=== PATIENT | male | born 1970 | race Caucasian/White ===

== ENCOUNTER → 2018-06-14 05:34 | Outpatient (CLI) | payer OTHER, SELFPAY ==
[2018-06-10 15:50] VITALS: BMI 38.3
[2018-06-14 07:50] LABS: AST(SGOT) 19 U/L (15-37); Alanine Aminotransfer ALT/SGPT 34 U/L (16-61); Albumin, Serum 3.6 g/dL (3.2-5.0); Alkaline Phosphatase 67 U/L (45-117); Bilirubin, Direct 0.12 mg/dL (0.00-0.30); Cholesterol 212 mg/dL (200); Globulin 3.8 g/dL (2.2-4.2); High Density Lipoprotein 40 mg/dL; Protein, Total 7.4 g/dL (6.4-8.2); Triglycerides 461 mg/dL
== END ==
PROVIDERS: Family Provider Family Medicine; PCP Family Medicine; Referring Provider Internal Medicine Cardiovascular Disease; Visit Provider Internal Medicine Cardiovascular Disease
DX: I25.10 Atherosclerotic heart disease of native coronary artery without angina pectoris (principal); Z95.5 Presence of coronary angioplasty implant and graft
CPT/HCPCS: 36415; 80061; 80076

== ENCOUNTER → 2018-06-19 13:04 | Outpatient (CLI) | payer OTHER, SELFPAY ==
[2018-06-10 15:50] VITALS: BMI 38.3
--- NOTE | 2018-06-19 13:05 | STE_ITS ---
Reason For Study: CAD/ASHD Stress Results Maximum Predicted HR: 170 bpm Target HR: 145 bpm % Maximum Predicted HR: 92 % DurationHeart Rate Stage (mm:ss) (bpm) BP Comment BASELINE 70 140/80 STAGE 1 3:00 116 172/70 STAGE 2 3:00 142 210/80SLIGHT SOB STAGE 3 0:30 157 / TREADMILL IS TOO FAST INCREASED SOB RECOVERY 93 154/80 Stress Duration: 6:30 mm:ss Maximum Stress HR: 157 bpm Baseline Echocardiogram Findings The estimated ejection fraction is 65 %. Stress Echo Wall motion Data Resting WM Intermediate WM Stress WM Resting Wall Motion Wall Motion Stress No regional wall motion No regional wall motion abnormalities noted. abnormalities noted. EKG Data Normal intervals are noted. The patient exercised according to the regular Kushal protocol for a total duration of 6:30. The maximum heart rate attained was 162 beats per minute. This was 95% of maximum predicted heart rate. The patient exercised into stage 3 of the Kushal protocol. At peak exercise, upsloping ST changes only were noted, which did not meet the criteria for ischemia. No clinical angina was noted. Interpretation Summary The estimated ejection fraction is 65 %. Normal, adequate, treadmill echocardiogram. Negative for ischemia by EKG and echocardiographic criteria. No anginal symptoms noted. Rare PVCs noted. Subtle upsloping ST segment depression at peak exercise which quickly resolved into recovery. Appropriate blood pressure response to exercise hypertensive blood pressure response to exercise. Average exercise capacity for age. Final LVEF of 75%. Test terminated due to target heart rate and dyspnea. Ordering Physician: Everett Franks Referring Physician: Everett Franks Performed By: Montse Lopes RDCS
== END ==
PROVIDERS: Family Provider Family Medicine; PCP Family Medicine; Referring Provider Internal Medicine Cardiovascular Disease; Visit Provider Internal Medicine Cardiovascular Disease
DX: I25.5 Ischemic cardiomyopathy (principal); I25.10 Atherosclerotic heart disease of native coronary artery without angina pectoris; E11.9 Type 2 diabetes mellitus without complications; I25.2 Old myocardial infarction
CPT/HCPCS: 93017; 93350

== ENCOUNTER 2018-12-08 08:01 | Inpatient (IN) | payer OTHER, SELFPAY ==
[2018-06-10 15:50] VITALS: BMI 38.3
[2018-12-08 08:02] VITALS: BP 161/87; PULSE 108; RESP 16; TEMP 36.4; O2SAT 93; BMI 37.6
--- NOTE | 2018-12-08 08:35 | RAD_ITS ---
STUDY: X-RAY - RIGHT TIBIA AND FIBULA REASON FOR EXAM: Male, 48 years old. Fall one week ago TECHNIQUE: 5 view(s) of the tibia and fibula were obtained. COMPARISON: None. FINDINGS: Normal visualized tibia. Normal visualized fibula. There is mild degenerative change of the medial compartment. There is enthesopathy at the patella. There is soft tissue edema about the calf. There is soft tissue edema anterior to the knee. There is a visualized plantar spur. There is a small joint effusion. There is vascular calcification of the ankle. RAD/Tibia & Fibula 2 Views IMPRESSION: Soft tissue edema no visualized acute fracture. Small joint effusion. Plantar spur. Calf edema. Electronically Signed: Ana Villarreal MD at 9:59 EDT Tel , Service support ,
--- NOTE | 2018-12-08 08:36 | ED.DCSUM_ITS ---
- ER Visit Summary Date of Service: 12/08/18 Chief Complaint: Right lower leg injury 1 week ago with pain and redness History of Present Illness: The patient is a 48 M history of diabetes, hypertension, HI, cardiomyopathy, cardiac stents. No prior right lower extremity surgery. Patient states he fell going in his garage about a week ago he missed a step landed awkwardly on his right knee. On Sunday he was seen at an urgent care had x-rays done which were negative. Since that time he is developed more pain in his right lower extremity redness and subjective fever. No other injuries. He is able to walk. Physical Examination: Middle-aged male. Vital signs are stable and afebrile. HEENT exam on unremarkable and atraumatic. Neck nontender. C-spine nontender. Lungs clear to auscultation bilaterally. Heart regular rhythm no murmur rate about 100. Abdomen soft and nontender. Normal bowel sounds no peritoneal signs. Patient moving all 4 extremities. Neurovascular intact. He has an abrasion on his right knee. He is able to flex and extend the knee. There is no obvious effusion. No gross bony deformity. From the lower knee down to his ankle he has cellulitis on the right lower extremity. Is mildly swollen. Foot is nontender. Ankles nontender. Dorsi plantarflexion intact. Palpable DP pulse. Normal touch sensation in the foot. His other extremities are nontender. With normal range of motion. He has range of motion in the right lower extremity. Neurologically he is awake and alert. Test Results: CBC shows a white count of 15.7. Hemoglobin 12.2. Electrolytes show sodium 131. BUN of 40 and creatinine 1.4. Glucose is elevated 516. Normal anion gap of 14. Right tib-fib 2 view x-ray shows no acute abnormality. No fracture. Read by myself. Emergency Department Course and Treatment: Patient has cellulitis on his right lower extremity. Will be started on IV Zosyn. Screening labs and x-ray will be obtained. He did not want anything for pain at this time. Repeat exam patient is doing well on 9:35 AM. He will be given a dose of 12 units of insulin subcu for his elevated blood sugar. Treatment Plan: I spoke to the hospitalist and the patient will be admitted to [facility]. Disposition: Admission Impression: Status post fall with right knee wound Right lower extremity cellulitis History of diabetes with hyperglycemia History of CAD and cardiac stents and cardiomyopathy This note was generated with [employer] dictation software. It may contain incorrect words, spelling, and punctuation that were not noted in review of the chart prior to signing ED Disposition - Plan for ED Patient: Referrals: Joseph Ricks MD [Primary Care Provider] -
[2018-12-08 08:56] LABS: Absolute Neutrophil Count 12.6 X10^3/uL (2.0-7.7); Basophil# 0.07 X10^3/uL; Basophil% 0.4 % (0-1); Eosinophil# 0.03 X10^3/uL; Eosinophils% 0.2 % (0-5); Hematocrit 37.2 % (40-54); Hemoglobin 12.3 g/dL (13.0-16.5); Lymphocyte % 5.1 % (19-41); Mean Corp Hgb Conc 33.1 g/dL (32-36); Mean Corpuscular Hgb 28.4 pg (27.0-32.0); Mean Corpuscular Volume 85.9 fL (80-94); Mean Platelet Vol. 10.6 fl (6.2-12.0); Monocyte# 1.74 X10^3/uL; Monocyte% 11.1 % (0-10); NRBC Flagged by Analyzer 0 % (0-5); Neutrophil # 12.62 X10^3/uL (2.7-7.7); Neutrophil % 80.2 % (47-70); POSITIVE DIFFERENTIAL YES; POSITIVE MORPHOLOGY YES; Platelet Count 241 K/mm3 (150-450); RBC Distribution Width CV 12.5 % (11.6-14.6); RBC Distribution Width SD 39.7 fl (35.1-43.9); Red Blood Count 4.33 M/mm3 (4.6-6.2); White Blood Count 15.7 K/mm3 (4.4-11.0)
[2018-12-08 09:01] LABS: Differential Indicated SCAN CRITERIA MET
[2018-12-08 09:21] LABS: Anion Gap 14 (5-15); BUN 40 mg/dL (7-18); BUN/Creat Ratio 28.2 RATIO (10-20); Calcium,Total 8.6 mg/dL (8.5-10.1); Chloride 93 mmol/L (98-107); Creatinine, Serum 1.42 mg/dL (0.70-1.30); EST Glomerular Filtration Rate 56 mL/min (>60); Est Glom Filt Rate - Afr Amer 68 mL/min (>60); Estimated Creatinine Clearance 66.29 ml/min; Glucose 516 mg/dL (74-106); Potassium 4.1 mmol/L (3.5-5.1); Sodium Level 131 mmol/L (136-145)
[2018-12-08] MEDS: Insulin NPH Human 100 UNITS/ML PEN 12 UNITS SC (09:51)
[2018-12-08 10:33] VITALS: BP 174/89; PULSE 102; RESP 18; TEMP 37.8; O2SAT 93; BMI 40.0; BMI 40.1
--- NOTE | 2018-12-08 10:45 | HP.PCM_ITS ---
Problem List (1) Diabetes mellitus, type II Status: Chronic (2) History of non-ST elevation myocardial infarction (NSTEMI) Status: Chronic (3) Ischemic cardiomyopathy Status: Chronic (4) Stented coronary artery Status: Chronic Comment: PTCA and TREY to LAD 06/23/13 @ [facility]; Promus stent to DX 07/17/13 @ [facility] (5) History of left heart catheterization Status: Chronic Comment: 06/23/2013 @ [facility] (6) Atherosclerotic heart disease of [place] coronary artery without angina pectoris Status: Chronic Comment: PTCA and TREY to LAD 06/23/13; Promus stent to DX 07/17/13 (7) Obesity Status: Chronic (8) Hyperlipidemia Status: Chronic (9) Hypertension Status: Chronic History of Present Illness Date of Admission: 12/08/18 Chief Complaint: Right lower extremity pain and redness. The patient is a 48 year old M who presents to the emergency room due to right lower extremity pain and redness. Patient reports he fell 1 week ago on his right knee at home due to missing a step. He was seen at urgent care and imaging showed no acute fracture. He was told to take Aleve for pain. He reports he has had significant increase in pain since that time. He reports he is able to walk on his right leg however he has difficulty lifting his leg. He has not taken his temperature at home and denies any known fever, chills. Denies nausea, vomiting. Denies drainage from right knee scabbed area. He reports he has severe pain with even light touch of his knee area. He has a past medical history of CAD status post stents, hypertension, hyperlipidemia, type 2 diabetes mellitus, obesity, GERD. Past Medical History Past Medical History (Chronic Problems): Chronic Problems (Last Reviewed 06/10/18 @ 15:49 by Meka Barraza) Diabetes mellitus, type II (Chronic) History of non-ST elevation myocardial infarction (NSTEMI) (Chronic) Ischemic cardiomyopathy (Chronic) Stented coronary artery (Chronic) PTCA and TREY to LAD 06/23/13 @ [facility]; Promus stent to DX 07/17/13 @ [facility] History of left heart catheterization (Chronic) 06/23/2013 @ [facility] Atherosclerotic heart disease of [place] coronary artery without angina pectoris (Chronic) PTCA and TREY to LAD 06/23/13; Promus stent to DX 07/17/13 Obesity (Chronic) Hyperlipidemia (Chronic) Hypertension (Chronic) Medical History: Medical History (Last Reviewed 06/10/18 @ 15:49 by Meka Barraza) Diabetes mellitus, type II (Chronic) E11.9 History of non-ST elevation myocardial infarction (NSTEMI) (Chronic) I25.2 Ischemic cardiomyopathy (Chronic) I25.5 Atherosclerotic heart disease of [place] coronary artery without angina pectoris (Chronic) I25.10 PTCA and TREY to LAD 06/23/13; Promus stent to DX 07/17/13 Obesity (Chronic) Hyperlipidemia (Chronic) Hypertension (Chronic) Allergies No Known Allergies Allergy (Verified 12/08/18 08:46) Home Medications: Ambulatory Orders Medication Instructions Recorded Aspirin [Aspirin, Baby] 81 mg PO DAILY@0800 09/28/14 Famotidine [Pepcid] 20 mg PO DAILY 09/28/14 Mag-Ox 400 1 tab PO DAILY 09/28/14 Metoprolol(XL)Succ [Toprol Xl 25 mg PO DAILY 09/28/14 (Beta Brittany)] hydrochlorothiazide 25 mg tablet 25 mg PO QDAY 04/20/17 metformin 1,000 mg tablet 1,000 mg PO BID tab 04/20/17 nitroglycerin 0.4 mg sublingual 0.4 mg SUBLINGUAL Q5-15M PRN 04/20/17 tablet atorvastatin 80 mg tablet 80 mg PO QHS #90 tab 06/14/18 amlodipine 5 mg tablet 5 mg PO DAILY #90 tab 11/22/18 Surgical History: Surgical History (Last Reviewed 06/10/18 @ 15:49 by Meak Barraza) Stented coronary artery (Chronic) Z95.5 PTCA and TREY to LAD 06/23/13 @ [facility]; Promus stent to DX 07/17/13 @ [facility] History of left heart catheterization (Chronic) Z98.890 06/23/2013 @ [facility] Surgical History: - - Hernia repair, cardiac stents. Psychiatric History: No pertinent psych hx Lives: Spouse/ Significant Other Smoking Status: Never smoker Alcohol: None Drugs: None - *Family History Paternal Family History: Family History (Last Reviewed 12/08/18 @ 10:53 by BRENDA Davila) Father Myocardial infarction CAD (coronary artery disease) Sudden cardiac Mother Sick sinus syndrome Sister Diabetes History Items: Heart Disease, - - At the age of 45 Maternal Family History: Family History (Last Reviewed 12/08/18 @ 10:53 by BRENDA Davila) Father Myocardial infarction CAD (coronary artery disease) Sudden cardiac Mother Sick sinus syndrome Sister Diabetes History Items: Heart Disease Review of Systems Constitutional: Reports: - - Fever on admission, denies fever prior. Denies: Chills, Fever, Weight Change HEENT: Denies: Head Aches, Sinus Congestion, Sinus Drainage Cardiovascular: Reports: Edema - Right lower extremity. Denies: Chest Pain, Light Headedness, Palpitations, Syncope Respiratory: Denies: Cough, Shortness of breath at rest, Sputum production Gastrointestinal: Denies: Abdominal Pain, Nausea, Vomiting Genitourinary: Denies: Dysuria Musculoskeletal: Reports: - - Right lower extremity pain Skin: Reports: - - Right lower extremity redness from knee to mid calf Neurological: Denies: Numbness, Tingling, Focal weakness Psychiatric: Denies: Anxiety, Depression, Homicidal Ideations, Suicidal Ideations Hematologic/ Lymphatic: Denies: Easy Bruising, Easy Bleeding VTE Information - Inpt Only VTE Present on Admission: No VTE Mechan Device Prophylaxis: None VTE Pharm Prophylaxis ordered?: Yes - Physical Exam General: Alert, Oriented x3, Cooperative HEENT: Atraumatic, PERRLA, EOMI, Normocephalic Neck: Supple, No JVD, Negative Carotid Bruits Lungs: Clear to auscultation, Normal air movement Cardiovascular: Regular Rhythm, Normal S1, Normal S2, No murmurs, Tachycardic Abdomen: Bowel Sounds Present, Soft, Non Tender, Non-Distended, Obese Extremities: No clubbing, No cyanosis, Capillary Refill Less than 3 Seconds, Edema - Right lower extremity extending to upper thigh Skin: - - Right lower extremity redness from knee to mid calf. Scabbed abrasion anterior knee. Musculoskeletal: Tenderness - Right knee Neurological: Cranial nerves II-XII grossly intact, Neuro grossly intact Psych/Mental Status: Normal Affect, Appropriate Vital Signs Temp Pulse Resp BP Pulse Ox 100.1 F H 102 H 18 174/89 H 93 12/08/18 10:33 12/08/18 10:33 12/08/18 10:33 12/08/18 10:33 12/08/18 10:33 Oxygen Delivery Method Room Air Weight: 287 lb 3.2 oz Body Mass Index (BMI) 40.0 Intake and Output for Last 24 Hours 12/06/18 12/07/18 12/08/18 23:59 23:59 23:59 Intake Total 100 / 100 Balance 100 / 100 Laboratory Tests Past 24 Hrs 12/08/18 12/08/18 08:44 08:44 WBC 15.7 H RBC 4.33 L Hgb 12.3 L Hct 37.2 L MCV 85.9 MCH 28.4 MCHC 33.1 RDW Std Deviation 39.7 RDW Coeff of Rajendra 12.5 Plt Count 241 MPV 10.6 Immature Gran % (Auto) 3.000 H Neut % (Auto) 80.2 H Lymph % (Auto) 5.1 L [place] % (Auto) 11.1 H Eos % (Auto) 0.2 Baso % (Auto) 0.4 Absolute Neuts (auto) 12.6 H Absolute Lymphs (auto) 0.80 L Nucleated RBC % 0 Diff Path Review May foll Sodium 131 L Potassium 4.1 Chloride 93 L Carbon Dioxide 24.0 Anion Gap 14 BUN 40 H Creatinine 1.42 H Estim Creat Clear Calc 66.29 Est GFR (MDRD) Af Amer 68 Est GFR (MDRD) Non-Af 56 L BUN/Creatinine Ratio 28.2 H Glucose 516 H* Calcium 8.6 Assessment/Plan 1. Acute sepsis secondary to right lower extremity [id number] right tibia/fibula demonstrated soft tissue edema with no acute fracture, small joint effusion. Calf edema. Obtain duplex ultrasound right lower extremity. Ortho consult. PRN pain regimen. IV Zosyn and IV vancomycin. Check ESR, CRP. Obtain x-ray knee. 2. Acute kidney injury- IVF, repeat BMP in a.m. 3. Hypovolemic hyponatremia-IV fluids, trend BMP. 4. Type 2 diabetes mellitus, elevated glucose on admission-check hemoglobin A1c. Continue home metformin regimen. Accu-Cheks before meals at bedtime with sliding scale insulin. 5. CAD status post stents-follows with Dr. Franks. Continue aspirin, statin, beta-brittany. 6. Hypertension-stable, continue home amlodipine, metoprolol regimen. 7. Hyperlipidemia-continue statin regimen. 8. Obesity-encouraged diet lifestyle modifications. Nutrition consult. 9. GERD-continue famotidine regimen. 10. Normocytic anemia-trend CBC. DVT prophylaxis-SCDs, Lovenox This patient was seen by BRENDA Davila under the supervision of Dr. Hernandez.
--- NOTE | 2018-12-08 11:02 | VDLE_ITS ---
Reason For Study: PAIN RIGHT GSV is normal. CFV is compressible, spontaneous, phasic, competent and demonstrates normal augmentation. FV is compressible, spontaneous, phasic, competent and demonstrates normal augmentation. POP V is compressible, spontaneous, phasic, competent and demonstrates normal augmentation. T/P Trunk is compressible. PTV is compressible. RT PerV is compressible. Procedure Exam performed portable in patient room. A preliminary report was called and/or faxed to [facility]. Interpretation Summary Deep veins of the right lower extremity are patent and compressible segmentally. There is no evidence of right lower extremity deep vein thrombosis. Valvular competence appears intact within the proximal deep venous system on the right . The right great saphenous vein appears patent and compressible segmentally. Ordering Physician: Susanna Anguiano Referring Physician: BOBY MORTON Performed By: Katya Rios, KAMINI, RVT
[2018-12-08] MEDS: 0.9% Normal Saline 1,000 ML 100 ML IV (11:28)
[2018-12-08] MEDS: 0.9% Normal Saline 1,000 ML 999 ML IV (11:28)
--- NOTE | 2018-12-08 11:31 | RAD_ITS ---
STUDY: X-RAY - RIGHT KNEE REASON FOR EXAM: Male, 48 years old. Fall. Uncontrolled diabetes. Evaluate for infection. TECHNIQUE: 3 view(s) of the knee. COMPARISON: None. FINDINGS: Normal visualized distal femur. Normal visualized proximal tibia and fibula. Normal proximal tibiofibular articulation. Normal medial femorotibial compartment. Normal lateral femorotibial compartment. Normal patellofemoral articulation. Deformity of the inferior pole of the patella, most likely from prior injury. The soft tissue structures are unremarkable. RAD/Knee 3 Views IMPRESSION: No acute abnormality. Electronically Signed: Parish Rice MD at 14:11 EDT , Service support ,
[2018-12-08] MEDS: Acetaminophen 325 MG Tablet 650 MG PO (11:38)
[2018-12-08] MEDS: oxyCODONE 5 MG Tablet 10 MG PO (11:38)
[2018-12-08 11:40] LABS: Hemoglobin A1c 15.6 % (4.2-6.3)
[2018-12-08 11:40] LABS: Bedside Glucose 492 mg/dL (70-110)
[2018-12-08 11:43] LABS: Lactic Acid 1.8 mmol/L (0.4-2.0)
[2018-12-08] MEDS: Enoxaparin 40 MG/0.4 ML Syringe SC (11:47)
[2018-12-08 12:17] LABS: Erythrocyte Sedimentation Rate 91 mm/hr (0-20)
[2018-12-08 12:23] LABS: Glucose 447 mg/dL (74-106)
[2018-12-08 12:51] VITALS: O2SAT 91
[2018-12-08] MEDS: Insulin Lispro 100 UNIT/ML INSULN.PEN SC ×3 (12:56→21:53)
[2018-12-08 13:15] LABS: Bacteria 0 SEEN /hpf (None Seen); Mucous, Urine 0 SEEN /hpf (<or=2+); Red Blood Cells-Urine 0 SEEN /hpf (0-5); Squamous Epithelial Cells - UA 0 SEEN /hpf (0-5); White Blood Cells 0 SEEN /hpf (0-5)
[2018-12-08 13:16] LABS: Color, Urine Straw (Yellow); Glucose, Dipstick 1000 mg/dl (Normal); Leukocyte Esterase-Dipstick Negative /ul (Negative); Nitrite-Dipstick Negative (Negative); Occult Blood-Urine 150 /ul (Negative); Protein-Dipstick 30 mg/dl (Negative); Specific Gravity, Urine 1.015 (1.002-1.030); Urine Bilirubin Dipstick Negative (Negative); Urine Clarity Clear (Clear); Urine Urobilinogen Normal (Normal)
[2018-12-08 13:23] LABS: Ketone-Dipstick 150 mg/dl (Negative)
--- NOTE | 2018-12-08 13:55 | CON.PCM_ITS ---
Reason for Consult Date of Consultation: 12/08/18 History of Present Illness: The patient is a 48 year old male, poorly controlled diabetic with multiple medical problems that fell in his garage 1 week ago abrading his right anterior knee. He went to urgent care on Sunday complaining of knee pain and swelling. He was noted to have a fever. Reportedly he was placed on Aleve and not placed on any antibiotic. He was told he could resume work. He worked this week and developed increasing knee and leg pain swelling on Sunday and Sunday. Pain was so severe today he came to the hospital because of leg pain and redness. He does not check his blood sugars at home. He states that when he first gets up to walk he does have some pain and limping. After a few steps the knee loosens up and he can walk better. His states he has been limping some. [] Past Medical History Past Medical History (Chronic Problems): Chronic Problems (Last Reviewed 06/10/18 @ 15:49 by Meka Barraza) Diabetes mellitus, type II (Chronic) History of non-ST elevation myocardial infarction (NSTEMI) (Chronic) Ischemic cardiomyopathy (Chronic) Stented coronary artery (Chronic) PTCA and TREY to LAD 06/23/13 @ [facility]; Promus stent to DX 07/17/13 @ [facility] History of left heart catheterization (Chronic) 06/23/2013 @ [facility] Atherosclerotic heart disease of [place] coronary artery without angina pectoris (Chronic) PTCA and TREY to LAD 06/23/13; Promus stent to DX 07/17/13 Obesity (Chronic) Hyperlipidemia (Chronic) Hypertension (Chronic) Medical History: Medical History (Last Reviewed 06/10/18 @ 15:49 by Meka Barraza) Diabetes mellitus, type II (Chronic) E11.9 History of non-ST elevation myocardial infarction (NSTEMI) (Chronic) I25.2 Ischemic cardiomyopathy (Chronic) I25.5 Atherosclerotic heart disease of [place] coronary artery without angina pectoris (Chronic) I25.10 PTCA and TREY to LAD 06/23/13; Promus stent to DX 07/17/13 Obesity (Chronic) Hyperlipidemia (Chronic) Hypertension (Chronic) Allergies No Known Allergies Allergy (Verified 12/08/18 08:46) Home Medications: Ambulatory Orders Medication Instructions Recorded Aspirin [Aspirin, Baby] 81 mg PO DAILY@0800 06/22/15 Famotidine [Pepcid] 20 mg PO DAILY 09/28/14 Mag-Ox 400 1 tab PO DAILY 09/28/14 Metoprolol(XL)Succ [Toprol Xl 25 mg PO DAILY 09/28/14 (Beta Brittany)] hydrochlorothiazide 25 mg tablet 25 mg PO QDAY 04/20/17 metformin 1,000 mg tablet 1,000 mg PO BID tab 04/20/17 nitroglycerin 0.4 mg sublingual 0.4 mg SUBLINGUAL Q5-15M PRN 04/20/17 tablet atorvastatin 80 mg tablet 80 mg PO QHS #90 tab 06/14/18 amlodipine 5 mg tablet 5 mg PO DAILY #90 tab 11/22/18 Surgical History: Surgical History (Last Reviewed 06/10/18 @ 15:49 by Meka Barraza) Stented coronary artery (Chronic) Z95.5 PTCA and TREY to LAD 06/23/13 @ [facility]; Promus stent to DX 07/17/13 @ [facility] History of left heart catheterization (Chronic) Z98.890 06/23/2013 @ [facility] Surgical History: - - Hernia repair, cardiac stents. Psychiatric History: No pertinent psych hx Lives: Spouse/ Significant Other Smoking Status: Never smoker Alcohol: None Drugs: None - *Family History Paternal Family History: Family History (Last Reviewed 12/08/18 @ 10:53 by BRENDA Davila) Father Myocardial infarction CAD (coronary artery disease) Sudden cardiac Mother Sick sinus syndrome Sister Diabetes History Items: Heart Disease, - - At the age of 45 Maternal Family History: Family History (Last Reviewed 12/08/18 @ 10:53 by BRENDA Davila) Father Myocardial infarction CAD (coronary artery disease) Sudden cardiac Mother Sick sinus syndrome Sister Diabetes History Items: Heart Disease Objective: Review of Systems Constitutional: Reports: - - Fever on admission, denies fever prior. Denies: Chills, Fever, Weight Change HEENT: Denies: Head Aches, Sinus Congestion, Sinus Drainage Cardiovascular: Reports: Edema - Right lower extremity. Denies: Chest Pain, Light Headedness, Palpitations, Syncope Respiratory: Denies: Cough, Shortness of breath at rest, Sputum production Gastrointestinal: Denies: Abdominal Pain, Nausea, Vomiting Genitourinary: Denies: Dysuria Musculoskeletal: Reports: - - Right lower extremity pain Skin: Reports: - - Right lower extremity redness from knee to mid calf Neurological: Denies: Numbness, Tingling, Focal weakness Psychiatric: Denies: Anxiety, Depression, Homicidal Ideations, Suicidal Ideations Hematologic/ Lymphatic: Denies: Easy Bruising, Easy Bleeding Patient's right knee and anterior nunez have warmth and mild redness, purple. Some mild redness about the thigh as well. He has tenderness over the prepatellar bursa. No significant knee joint tenderness. Questionable knee effusion on the right and left knee. Left knee motion is 0 to 110 degrees. Right knee motion is 0 to 95 degrees. He complains of anterior nunez and knee tightness at his bursa with trying to flex it beyond 95 degrees. No posterior calf pain. Redness stands from the anterior patellar region to the mid and lower tibia region. Dorsalis pedis and posterior tibial pulses are intact. Good active motion of the ankles. He is easily able to do a straight leg raise bilaterally. Pain with axial loading of the knees. Hip pain with motion. No pain on palpation about the hip. No significant thigh pain or swelling. Some mild redness about the anterior thigh. Laboratory work and vital signs reviewed X-rays of the knee and leg reviewed showing mild anterior swelling. No obvious acute fractures or dislocation. Chronic bony changes about the anterior patella Note from ER doctor and hospitalist reviewed hemaglobin A1c reported at 15 today With blood sugars greater than 500 - Physical Exam Vital Signs Temp Pulse Resp BP Pulse Ox 100.1 F H 102 H 18 174/89 H 91 12/08/18 10:33 12/08/18 10:33 12/08/18 10:33 12/08/18 10:33 12/08/18 12:51 Oxygen Delivery Method Room Air Weight: 130.272 kg Body Mass Index (BMI) 40.0 Intake and Output for Last 24 Hours 12/06/18 12/07/18 12/08/18 23:59 23:59 23:59 Intake Total 1101.67 / 1101.67 Balance 1101.67 / 1101.67 Laboratory Tests Past 24 Hrs 12/08/18 12/08/18 12/08/18 08:44 08:44 08:44 WBC 15.7 H RBC 4.33 L Hgb 12.3 L Hct 37.2 L MCV 85.9 MCH 28.4 MCHC 33.1 RDW Std Deviation 39.7 RDW Coeff of Rajendra 12.5 Plt Count 241 MPV 10.6 Immature Gran % (Auto) 3.000 H Neut % (Auto) 80.2 H Lymph % (Auto) 5.1 L [place] % (Auto) 11.1 H Eos % (Auto) 0.2 Baso % (Auto) 0.4 Absolute Neuts (auto) 12.6 H Absolute Lymphs (auto) 0.80 L Nucleated RBC % 0 [address] Review May foll ESR Sodium 131 L Potassium 4.1 Chloride 93 L Carbon Dioxide 24.0 Anion Gap 14 BUN 40 H Creatinine 1.42 H Estim Creat Clear Calc 66.29 Est GFR (MDRD) Af Amer 68 Est GFR (MDRD) Non-Af 56 L BUN/Creatinine Ratio 28.2 H Glucose 516 H* Hemoglobin A1c 15.6 H Lactic Acid Calcium 8.6 C-React Prot Ext Range Urine Color Urine Clarity Urine pH Ur Specific [place] Urine Protein Urine Glucose (UA) Urine Ketones Urine Occult Blood Urine Nitrite Urine Bilirubin Urine Urobilinogen Ur Leukocyte Esterase Urine RBC Urine WBC Ur Squamous Epith Cells Urine Bacteria Urine Mucus 12/08/18 12/08/18 12/08/18 08:44 11:05 11:58 WBC RBC Hgb Hct MCV MCH MCHC RDW Std Deviation RDW Coeff of Rajendra Plt Count MPV Immature Gran % (Auto) Neut % (Auto) Lymph % (Auto) [place] % (Auto) Eos % (Auto) Baso % (Auto) Absolute Neuts (auto) Absolute Lymphs (auto) Nucleated RBC % Diff Path Review ESR 91 H Sodium Potassium Chloride Carbon Dioxide Anion Gap BUN Creatinine Estim Creat Clear Calc Est GFR (MDRD) Af Amer Est GFR (MDRD) Non-Af BUN/Creatinine Ratio Glucose Hemoglobin A1c Lactic Acid 1.8 Calcium C-React Prot Ext Range 358.00 H Urine Color Urine Clarity Urine pH Ur Specific [place] Urine Protein Urine Glucose (UA) Urine Ketones Urine Occult Blood Urine Nitrite Urine Bilirubin Urine Urobilinogen Ur Leukocyte Esterase Urine RBC Urine WBC Ur Squamous Epith Cells Urine Bacteria Urine Mucus 12/08/18 12/08/18 11:58 12:05 WBC RBC Hgb Hct MCV MCH MCHC RDW Std Deviation RDW Coeff of Rajendra Plt Count MPV Immature Gran % (Auto) Neut % (Auto) Lymph % (Auto) [place] % (Auto) Eos % (Auto) Baso % (Auto) Absolute Neuts (auto) Absolute Lymphs (auto) Nucleated RBC % Diff Path Review ESR Sodium Potassium Chloride Carbon Dioxide Anion Gap BUN Creatinine Estim Creat Clear Calc Est GFR (MDRD) Af Amer Est GFR (MDRD) Non-Af BUN/Creatinine Ratio Glucose 447 H Hemoglobin A1c Lactic Acid Calcium C-React Prot Ext Range Urine Color Straw Urine Clarity Clear Urine pH 5.0 Ur Specific [place] 1.015 Urine Protein 30 H Urine Glucose (UA) 1000 H Urine Ketones 150 H Urine Occult Blood 150 H Urine Nitrite Negative Urine Bilirubin Negative Urine Urobilinogen Normal Ur Leukocyte Esterase Negative Urine RBC 0 SEEN Urine WBC 0 SEEN Ur Squamous Epith Cells 0 SEEN Urine Bacteria 0 SEEN Urine Mucus 0 SEEN POC Glucose 12/08/18 11:31 POC Glucose 492 H* Assessment/Plan Right lower extremity cellulitis, probable prepatellar bursitis, after knee contusion, abrasion. Doubt septic knee joint. We discussed possibility of aspirating his bursa and/or knee joint. We decided to proceed with bursal aspiration. I explained if there is no knee joint infection we could possibly seed his joint by aspirating through skin with cellulitis. After obtaining appropriate consent patient's right knee was prepped with Betadine and alcohol. I used an 18-gauge inch and half needle to aspirate 3 to 4 cc of thick reddish-brownish bloody fluid from his prepatellar bursa. He tolerated that well. Fluid will be sent for Gram stain, culture and sensitivity. If there is adequate fluid they will do a cell count, fungal cultures. Sterile bandage was applied with 4 x 4 and Leonides wrap. We will continue on IV antibiotics. Case discussed with hospitalist. Certainly he would benefit from better control of his blood sugars and I explained we do not do elective knee surgery if there hemoglobin A1c is above 8. I also explained with elevated blood sugars he would be at risk for any surgery, wound healing complications. I explained untreated/poorly treated diabetes can certainly lead to lower extremity amputations. We will plan to reevaluate him tomorrow. Possibly re-aspirate knee region if needed. No surgery planned at this point.
[2018-12-08 14:38] LABS: RBC /Synovial Fluid 0.684 10^6/uL (0); Synovial Fld Mononuclear WBC % 14.9 %; Synovial Fld Polynuclear WBC % 85.1 %
[2018-12-08 15:16] LABS: AUTO B FLUID DILUENT BKGD CT WBC <0.1 RBC <0.01 (W<.1,R<.01); Source / Synovial Fluid RT KNEE
[2018-12-08 15:17] LABS: Appearance /Synovial Fluid Cloudy (CLEAR); Color / Synovial Fluid Red (Pale Yellow); Viscosity / Synovial Fluid Sl. Viscous (HIGH)
[2018-12-08 16:19] LABS: Neutrophil 98 % (0-25); Other Cell /Synovial Fluid 2 %
[2018-12-08 16:24] LABS: Body Fluid QC Type(s) BF1Q
[2018-12-08 16:38] VITALS: BP 159/80; PULSE 101; RESP 18; TEMP 36.7; O2SAT 94
[2018-12-08] MEDS: metFORMIN HCl 1,000 MG Tablet 1000 MG PO (16:42)
[2018-12-08 16:51] LABS: Bedside Glucose 375 mg/dL (70-110)
--- NOTE | 2018-12-08 18:55 | PCM.RX.CS ---
Consult Pharmacy has been consulted to manage selected antiobiotic: Vancomycin Type of Consult: New start Suspected Infection: Other Labs: Sodium 131 mmol/L (136-145) L 12/08/18 08:44 Potassium 4.1 mmol/L (3.5-5.1) 12/08/18 08:44 Chloride 93 mmol/L (98-107) L 12/08/18 08:44 Carbon Dioxide 24.0 mmol/L (21.0-32.0) 12/08/18 08:44 14 (5-15) 12/08/18 08:44 BUN 40 mg/dL (7-18) H 12/08/18 08:44 1.42 mg/dL (0.70-1.30) H 12/08/18 08:44 Est GFR (MDRD) Af Amer 68 mL/min (>60) 12/08/18 08:44 Est GFR (MDRD) Non-Af 56 mL/min (>60) L 12/08/18 08:44 28.2 RATIO (10-20) H 12/08/18 08:44 Glucose 447 mg/dL (74-106) H 12/08/18 11:58 Microbiology: Microbiology 12/08/18 14:03 Fluid - Synovial (joint) Gram Stain - Final Weight used for dosin kg Estimated Creatinine Clearance: 66 mL/min Goal Trough: 15-20 mcg/mL Pharmacy Plan for Drug Dosing: Initial dose 2000mg IV x1, 1500mg IV q12h to follow with trough prior to 4th dose per policy. Pharmacy Service will continue to monitor and adjust dosing as required. Follow-Up Labs: Trough Vancomycin - 12/10 @ 0630
[2018-12-08 20:00] VITALS: PULSE 103; O2SAT 94
[2018-12-08] MEDS: Famotidine 20 MG Tablet PO (21:53)
[2018-12-08] MEDS: Atorvastatin Calcium 80 MG Tablet PO (21:54)
[2018-12-08 22:06] LABS: Bedside Glucose 365 mg/dL (70-110)
[2018-12-08 22:30] VITALS: BP 159/93; PULSE 103; RESP 18; TEMP 37.6; O2SAT 94
[2018-12-09] VITALS (9 sets, daily range): BP systolic 150–167; BP diastolic 83–93; PULSE 90–115; RESP 16–18; TEMP 37–37.7; O2SAT 92–97
[2018-12-09] MEDS: 0.9% Normal Saline 1,000 ML 100 ML IV ×2 (00:49→08:00)
[2018-12-09] MEDS: Insulin Lispro 100 UNIT/ML INSULN.PEN SC ×4 (06:48→21:20)
[2018-12-09 06:51] LABS: Hematocrit 35.4 % (40-54); Hemoglobin 11.4 g/dL (13.0-16.5); Mean Corp Hgb Conc 32.2 g/dL (32-36); Mean Corpuscular Hgb 27.3 pg (27.0-32.0); Mean Corpuscular Volume 84.9 fL (80-94); Mean Platelet Vol. 10.9 fl (6.2-12.0); POSITIVE COUNT YES; POSITIVE DIFFERENTIAL YES; POSITIVE MORPHOLOGY YES; Platelet Count 265 K/mm3 (150-450); RBC Distribution Width SD 40.1 fl (35.1-43.9); Red Blood Count 4.17 M/mm3 (4.6-6.2); White Blood Count 17.3 K/mm3 (4.4-11.0)
[2018-12-09 06:56] LABS: Bedside Glucose 296 mg/dL (70-110)
[2018-12-09 07:09] LABS: Differential Indicated MANUAL DIFF
[2018-12-09 07:21] LABS: ALB/GLOB Ratio 0.4 RATIO (0.9-2.4); AST(SGOT) 15 U/L (15-37); Alanine Aminotransfer ALT/SGPT 19 U/L (16-61); Albumin, Serum 1.9 g/dL (3.2-5.0); Alkaline Phosphatase 135 U/L (45-117); Anion Gap 10 (5-15); BUN 35 mg/dL (7-18); BUN/Creat Ratio 31.5 RATIO (10-20); Calcium,Total 8.4 mg/dL (8.5-10.1); Chloride 97 mmol/L (98-107); Cholesterol 179 mg/dL (200); Creatinine, Serum 1.11 mg/dL (0.70-1.30); EST Glomerular Filtration Rate 74 mL/min (>60); Est Glom Filt Rate - Afr Amer 90 mL/min (>60); Glucose 280 mg/dL (74-106); High Density Lipoprotein 27 mg/dL; Magnesium 2.3 mg/dL (1.6-2.6); Phosphorus 2.3 mg/dL (2.5-4.9); Potassium 3.4 mmol/L (3.5-5.1); Protein, Total 6.9 g/dL (6.4-8.2); Sodium Level 134 mmol/L (136-145); Triglycerides 179 mg/dL; Very Low Density Lipoprotein 36 mg/dL (5-40)
[2018-12-09 07:24] LABS: Basophil 1 % (0-1); Lymphocyte 5 % (19-41); Metamyelocyte 4 % (0-1); Monocyte 4 % (0-10); Neutrophil-Band 6 % (0-5); Neutrophil-Segmented 80 % (47-70); Total Cells Counted 100 (MANUAL DIFF)
[2018-12-09 07:25] LABS: Polychromasia RARE; Red Cell Morphology N CYTIC NORMAL (NORM C&C)
[2018-12-09 07:26] LABS: Platelet Estimate ADEQUATE (ADEQ)
[2018-12-09 07:31] LABS: Absolute Lymphocyte Count 0.87 X10^3/uL (0.83-4.51); Absolute Neutrophil Count 14.9 X10^3/uL (2.0-7.7)
[2018-12-09 07:33] LABS: Urine Sodium 8 mmol/L (Not Establ.)
[2018-12-09 07:35] LABS: Protein, Urine (Random) 103.4 mg/dL (<11.9); Protein:Creat Ratio 940 mg/g CRE (0-200)
[2018-12-09] MEDS: metFORMIN HCl 1,000 MG Tablet 1000 MG PO ×2 (08:01→17:09)
[2018-12-09] MEDS: Aspirin 81 MG TAB.CHEW PO (08:02)
[2018-12-09] MEDS: Famotidine 20 MG Tablet PO ×2 (10:39→21:21)
[2018-12-09] MEDS: Metoprolol(XL)Succ 25 MG Tablet PO (10:39)
[2018-12-09] MEDS: amLODIPine 5 MG Tablet PO (10:39)
--- NOTE | 2018-12-09 10:53 | PCM.PROGNOTE ---
<Susanna Anguiano - Last Filed: 12/09/18 11:10> Subjective: Patient seen and examined. Reports fever, chills improved. Reports right lower extremity pain is well controlled however he has not been moving it much. Denies other current complaints. - Physical Exam General: Alert, Oriented x3, Cooperative HEENT: Atraumatic, PERRLA, EOMI, Normocephalic Neck: Supple, No JVD, Negative Carotid Bruits Lungs: Clear to auscultation, Normal air movement Cardiovascular: Regular rate, Regular Rhythm, Normal S1, Normal S2, No murmurs Abdomen: Bowel Sounds Present, Soft, Non Tender, Non-Distended, Obese Extremities: No clubbing, No cyanosis, Edema - Right lower extremity extending to upper thigh Skin: - - Right lower extremity redness from knee to mid calf. Scabbed abrasion anterior knee. Musculoskeletal: Tenderness - Right knee Neurological: Cranial nerves II-XII grossly intact, Neuro grossly intact Psych/Mental Status: Normal Affect, Appropriate Vital Signs Temp Pulse Resp BP Pulse Ox 99.6 F H 98 18 167/90 H 93 12/09/18 08:24 12/09/18 10:39 12/09/18 08:24 12/09/18 08:24 12/09/18 08:24 Oxygen Flow Rate (L/min) 3 Oxygen Delivery Method Room Air Weight: 287 lb 3.209 oz Body Mass Index (BMI) 40.0 Intake and Output for Last 24 Hours 12/07/18 12/08/18 12/09/18 23:59 23:59 23:59 Intake Total 3915.00 / 3915.00 1385 / 1385 Output Total 1400 / 1400 Balance 2515.00 / 2515.00 1385 / 1385 Microbiology Past 72 Hours 12/08/18 14:03 Gram Stain - Final Fluid - Synovial (joint) Body Fluid Culture - Preliminary Staphylococcus aureus Laboratory Tests Past 24 Hrs 12/08/18 12/08/18 12/08/18 08:44 08:44 11:05 WBC RBC Hgb Hct MCV MCH MCHC RDW Std Deviation RDW Coeff of Rajendra Plt Count MPV Neut % (Auto) Absolute Neuts (auto) Absolute Lymphs (auto) Total Counted Neutrophils % (Manual) Band Neutrophils % Lymphocytes % (Manual) Monocytes % (Manual) Basophils % (Manual) Metamyelocytes % Diff Path Review Platelet Estimate RBC Morphology Polychromasia ESR Sodium Potassium Chloride Carbon Dioxide Anion Gap BUN Creatinine Estim Creat Clear Calc Est GFR (MDRD) Af Amer Est GFR (MDRD) Non-Af BUN/Creatinine Ratio Glucose Hemoglobin A1c 15.6 H Lactic Acid 1.8 Calcium Phosphorus Magnesium Total Bilirubin AST ALT Alkaline Phosphatase C-React Prot Ext Range 358.00 H Total Protein Albumin Globulin Albumin/Globulin Ratio Triglycerides Cholesterol LDL Cholesterol VLDL Cholesterol HDL Cholesterol Urine Color Urine Clarity Urine pH Ur Specific [place] Urine Protein Urine Glucose (UA) Urine Ketones Urine Occult Blood Urine Nitrite Urine Bilirubin Urine Urobilinogen Ur Leukocyte Esterase Urine RBC Urine WBC Ur Squamous Epith Cells Urine Bacteria Urine Mucus U Random Total Protein Ur Random Sodium Urine Creatinine Protein/Creatinin Ratio Synovial Source Synovial Color Synovial Appearance Synovial Viscosity Synovial WBC Synovial RBC Synovial Tot Cell Ct Synov Polynuclear WBCs Synovial Neutrophils Synovial Other Cells Synovial Polynuclear % Synovial Mononuclear % Synovial Path Comment 12/08/18 12/08/18 12/08/18 11:58 11:58 12:05 WBC RBC Hgb Hct MCV MCH MCHC RDW Std Deviation RDW Coeff of Rajendra Plt Count MPV Neut % (Auto) Absolute Neuts (auto) Absolute Lymphs (auto) Total Counted Neutrophils % (Manual) Band Neutrophils % Lymphocytes % (Manual) Monocytes % (Manual) Basophils % (Manual) Metamyelocytes % Diff Path Review Platelet Estimate RBC Morphology Polychromasia ESR 91 H Sodium Potassium Chloride Carbon Dioxide Anion Gap BUN Creatinine Estim Creat Clear Calc Est GFR (MDRD) Af Amer Est GFR (MDRD) Non-Af BUN/Creatinine Ratio Glucose 447 H Hemoglobin A1c Lactic Acid Calcium Phosphorus Magnesium Total Bilirubin AST ALT Alkaline Phosphatase C-React Prot Ext Range Total Protein Albumin Globulin Albumin/Globulin Ratio Triglycerides Cholesterol LDL Cholesterol VLDL Cholesterol HDL Cholesterol Urine Color Straw Urine Clarity Clear Urine pH 5.0 Ur Specific [place] 1.015 Urine Protein 30 H Urine Glucose (UA) 1000 H Urine Ketones 150 H Urine Occult Blood 150 H Urine Nitrite Negative Urine Bilirubin Negative Urine Urobilinogen Normal Ur Leukocyte Esterase Negative Urine RBC 0 SEEN Urine WBC 0 SEEN Ur Squamous Epith Cells 0 SEEN Urine Bacteria 0 SEEN Urine Mucus 0 SEEN U Random Total Protein Ur Random Sodium Urine Creatinine Protein/Creatinin Ratio Synovial Source Synovial Color Synovial Appearance Synovial Viscosity Synovial WBC Synovial RBC Synovial Tot Cell Ct Synov Polynuclear WBCs Synovial Neutrophils Synovial Other Cells Synovial Polynuclear % Synovial Mononuclear % Synovial Path Comment 12/08/18 12/09/18 12/09/18 Unknown 05:30 05:30 WBC 17.3 H RBC 4.17 L Hgb 11.4 L Hct 35.4 L MCV 84.9 MCH 27.3 MCHC 32.2 RDW Std Deviation 40.1 RDW Coeff of Rajendra 13.0 Plt Count 265 MPV 10.9 Neut % (Auto) Not Reportable Absolute Neuts (auto) 14.9 H Absolute Lymphs (auto) 0.87 Total Counted 100 Neutrophils % (Manual) 80 H Band Neutrophils % 6 H Lymphocytes % (Manual) 5 L Monocytes % (Manual) 4 Basophils % (Manual) 1 Metamyelocytes % 4 H Diff Path Review May foll Platelet Estimate ADEQUATE RBC Morphology N CYTIC Polychromasia RARE ESR Sodium 134 L Potassium 3.4 L Chloride 97 L Carbon Dioxide 27.0 Anion Gap 10 BUN 35 H Creatinine 1.11 Estim Creat Clear Calc 84.80 Est GFR (MDRD) Af Amer 90 Est GFR (MDRD) Non-Af 74 BUN/Creatinine Ratio 31.5 H Glucose 280 H Hemoglobin A1c Lactic Acid Calcium 8.4 L Phosphorus 2.3 L Magnesium 2.3 Total Bilirubin 0.60 AST 15 ALT 19 Alkaline Phosphatase 135 H C-React Prot Ext Range Total Protein 6.9 Albumin 1.9 L Globulin 5.0 H Albumin/Globulin Ratio 0.4 L Triglycerides 179 Cholesterol 179 LDL Cholesterol 116 VLDL Cholesterol 36 HDL Cholesterol 27 L Urine Color Urine Clarity Urine pH Ur Specific [place] Urine Protein Urine Glucose (UA) Urine Ketones Urine Occult Blood Urine Nitrite Urine Bilirubin Urine Urobilinogen Ur Leukocyte Esterase Urine RBC Urine WBC Ur Squamous Epith Cells Urine Bacteria Urine Mucus U Random Total Protein Ur Random Sodium Urine Creatinine Protein/Creatinin Ratio Synovial Source RT KNEE Synovial Color Red Synovial Appearance Cloudy Synovial Viscosity Sl. Viscous Synovial WBC 261.5200 H Synovial RBC 0.684 H Synovial Tot Cell Ct 265.4800 H Synov Polynuclear WBCs 238.506 Synovial Neutrophils 98 H Synovial Other Cells 2 Synovial Polynuclear % 85.1 Synovial Mononuclear % 14.9 Synovial Path Comment May follow 12/09/18 12/09/18 12/09/18 05:58 05:58 05:58 WBC RBC Hgb Hct MCV MCH MCHC RDW Std Deviation RDW Coeff of Rajendra Plt Count MPV Neut % (Auto) Absolute Neuts (auto) Absolute Lymphs (auto) Total Counted Neutrophils % (Manual) Band Neutrophils % Lymphocytes % (Manual) Monocytes % (Manual) Basophils % (Manual) Metamyelocytes % Diff Path Review Platelet Estimate RBC Morphology Polychromasia ESR Sodium Potassium Chloride Carbon Dioxide Anion Gap BUN Creatinine Estim Creat Clear Calc Est GFR (MDRD) Af Amer Est GFR (MDRD) Non-Af BUN/Creatinine Ratio Glucose Hemoglobin A1c Lactic Acid Calcium Phosphorus Magnesium Total Bilirubin AST ALT Alkaline Phosphatase C-React Prot Ext Range Total Protein Albumin Globulin Albumin/Globulin Ratio Triglycerides Cholesterol LDL Cholesterol VLDL Cholesterol HDL Cholesterol Urine Color Urine Clarity Urine pH Ur Specific [place] Urine Protein Urine Glucose (UA) Urine Ketones Urine Occult Blood Urine Nitrite Urine Bilirubin Urine Urobilinogen Ur Leukocyte Esterase Urine RBC Urine WBC Ur Squamous Epith Cells Urine Bacteria Urine Mucus U Random Total Protein 103.4 H Ur Random Sodium 8 Urine Creatinine 111.00 110.00 Protein/Creatinin Ratio 940 H Synovial Source Synovial Color Synovial Appearance Synovial Viscosity Synovial WBC Synovial RBC Synovial Tot Cell Ct Synov Polynuclear WBCs Synovial Neutrophils Synovial Other Cells Synovial Polynuclear % Synovial Mononuclear % Synovial Path Comment POC Glucose 12/09/18 12/08/18 12/08/18 06:45 21:49 16:35 POC Glucose 296 H 365 H 375 H 12/08/18 11:31 POC Glucose 492 H* Medical Necessity - Tobacco Use Smoking Status: Never smoker Assessment/Plan 1. Acute sepsis secondary to right lower extremity [id number] right tibia/fibula demonstrated soft tissue edema with no acute fracture, small joint effusion. Calf edema. Duplex ultrasound right lower extremity negative for DVT. Ortho consulted. Aspirated 12/08/[address] Flavio Rowe from the right prepatellar bursa, cultures pending. PRN pain regimen. IV Zosyn and IV vancomycin. Consult ID. 2. Acute kidney injury-resolved with IV fluids. 3. Hypovolemic hyponatremia-improved with IV fluids, trend BMP. 4. Type 2 diabetes mellitus, very poorly controlled-hemoglobin A1c 15.6%. Continue home metformin regimen. Prescription given to patient's for glucometer and testing supplies which she is going to obtain prior to discharge. Accu-Cheks ACHS with SSI. Continue Lantus 25 units twice daily. Recommend follow-up with endocrinology. Nutrition consult. 5. CAD status post stents-follows with Dr. Franks. Continue aspirin, statin, beta-kane. 6. Hypertension-stable, continue home amlodipine, metoprolol regimen. 7. Hyperlipidemia-continue statin regimen. 8. Obesity-encouraged diet lifestyle modifications. Nutrition consult. 9. GERD-continue famotidine regimen. 10. Normocytic anemia-trend CBC. DVT prophylaxis-SCDs, Lovenox This patient was seen by BRENDA Davila under the supervision of Dr. Lancaster. <Mirta Lancaster - Last Filed: 12/09/18 14:56> - Physical Exam Vital Signs Temp Pulse Resp BP Pulse Ox 99.6 F H 90 18 167/90 H 93 12/09/18 08:24 12/09/18 11:00 12/09/18 11:00 12/09/18 08:24 12/09/18 11:00 Oxygen Flow Rate (L/min) 3 Oxygen Delivery Method Room Air Weight: 130.272 kg Body Mass Index (BMI) 40.0 Intake and Output for Last 24 Hours 12/07/18 12/08/18 12/09/18 23:59 23:59 23:59 Intake Total 3915.00 / 3915.00 1936.67 / 1936.67 Output Total 1400 / 1400 Balance 2515.00 / 2515.00 1936.67 / 1936.67 Microbiology Past 72 Hours 12/08/18 14:03 Gram Stain - Final Fluid - Synovial (joint) Body Fluid Culture - Preliminary Staphylococcus aureus Laboratory Tests Past 24 Hrs 12/08/18 12/09/18 12/09/18 Unknown 05:30 05:30 WBC 17.3 H RBC 4.17 L Hgb 11.4 L Hct 35.4 L MCV 84.9 MCH 27.3 MCHC 32.2 RDW Std Deviation 40.1 RDW Coeff of Rajendra 13.0 Plt Count 265 MPV 10.9 Neut % (Auto) Not Reportable Absolute Neuts (auto) 14.9 H Absolute Lymphs (auto) 0.87 Total Counted 100 Neutrophils % (Manual) 80 H Band Neutrophils % 6 H Lymphocytes % (Manual) 5 L Monocytes % (Manual) 4 Basophils % (Manual) 1 Metamyelocytes % 4 H Diff Path Review May foll Platelet Estimate ADEQUATE RBC Morphology N CYTIC Polychromasia RARE Sodium 134 L Potassium 3.4 L Chloride 97 L Carbon Dioxide 27.0 Anion Gap 10 BUN 35 H Creatinine 1.11 Estim Creat Clear Calc 84.80 Est GFR (MDRD) Af Amer 90 Est GFR (MDRD) Non-Af 74 BUN/Creatinine Ratio 31.5 H Glucose 280 H Calcium 8.4 L Phosphorus 2.3 L Magnesium 2.3 Total Bilirubin 0.60 AST 15 ALT 19 Alkaline Phosphatase 135 H Total Protein 6.9 Albumin 1.9 L Globulin 5.0 H Albumin/Globulin Ratio 0.4 L Triglycerides 179 Cholesterol 179 LDL Cholesterol 116 VLDL Cholesterol 36 HDL Cholesterol 27 L U Random Total Protein Ur Random Sodium Urine Creatinine Protein/Creatinin Ratio Synovial Source RT KNEE Synovial Color Red Synovial Appearance Cloudy Synovial Viscosity Sl. Viscous Synovial WBC 261.5200 H Synovial RBC 0.684 H Synovial Tot Cell Ct 265.4800 H Synov Polynuclear WBCs 238.506 Synovial Neutrophils 98 H Synovial Other Cells 2 Synovial Polynuclear % 85.1 Synovial Mononuclear % 14.9 Synovial Path Comment August12/09/18 12/09/18 12/09/18 05:58 05:58 05:58 WBC RBC Hgb Hct MCV MCH MCHC RDW Std Deviation RDW Coeff of Rajendra Plt Count MPV Neut % (Auto) Absolute Neuts (auto) Absolute Lymphs (auto) Total Counted Neutrophils % (Manual) Band Neutrophils % Lymphocytes % (Manual) Monocytes % (Manual) Basophils % (Manual) Metamyelocytes % Diff Path Review Platelet Estimate RBC Morphology Polychromasia Sodium Potassium Chloride Carbon Dioxide Anion Gap BUN Creatinine Estim Creat Clear Calc Est GFR (MDRD) Af Amer Est GFR (MDRD) Non-Af BUN/Creatinine Ratio Glucose Calcium Phosphorus Magnesium Total Bilirubin AST ALT Alkaline Phosphatase Total Protein Albumin Globulin Albumin/Globulin Ratio Triglycerides Cholesterol LDL Cholesterol VLDL Cholesterol HDL Cholesterol U Random Total Protein 103.4 H Ur Random Sodium 8 Urine Creatinine 111.00 110.00 Protein/Creatinin Ratio 940 H Synovial Source Synovial Color Synovial Appearance Synovial Viscosity Synovial WBC Synovial RBC Synovial Tot Cell Ct Synov Polynuclear WBCs Synovial Neutrophils Synovial Other Cells Synovial Polynuclear % Synovial Mononuclear % Synovial Path Comment POC Glucose 12/09/18 12/09/18 12/08/18 11:50 06:45 21:49 POC Glucose 327 H 296 H 365 H 12/08/18 16:35 POC Glucose 375 H Assessment/Plan This patient was seen in conjunction with Susanna Anguiano NP. I have independently interviewed and examined the patient and reviewed pertinent historical, laboratory, and other data. Please refer to her note for patient's presentation, findings, and recommendations. Patient was seen and examined. His pain is fairly controlled. Denied any fever or chills. No acute events overnight. Vitals were reviewed -stable Physical Exam: Gen:Obese, not pale, not jaundiced, alert oriented x3 CVS:HS I +II, regular, no murmurs RESP: Diminished at lung bases GI: BS present and normal, nontender, no palpable organs EXT: Right knee and lower leg is wrapped, mild erythema of the lower leg, +2 pitting edema Labs reviewed: Cultures from the knee aspirate are growing MSSA Blood sugars are uncontrolled ASSESSMENT: Sepsis secondary to right lower extremity cellulitis/bursitis Hypokalemia Hyponatremia, hypovolemic CORA, resolved Type II DM, poorly controlled CAD status post stents Hypertension Hyperlipidemia CKD Meds reviewed Plan: ID consult Continue empiric vancomycin and Zosyn PT and OT to evaluate and treat Dietitian to assist with medication on diabetes Continue on increased Lantus today Code Visit Inpatient E&M: 08028 Subs Hosp L2
[2018-12-09 12:00] LABS: Bedside Glucose 327 mg/dL (70-110)
--- NOTE | 2018-12-09 13:21 | NURSING ---
vancomycin not on unit for pt administration-Rx notified
--- NOTE | 2018-12-09 13:49 | PCM.PN.ORT ---
Subjective: Patient states his right leg is feeling better. Denies fever or chills. Did have his typical night sweats last night. That is not new for him. Denies calf pain. Denies chest pain or shortness of breath. No productive cough. Seen with his sister present Objective: Right lower extremity continues to have significant cellulitis about the anterior aspect of the knee, nunez, somewhat lower thigh. No significant joint line tenderness. He does have right knee pain at the prepatellar bursa. I was able to express purulent material from his prepatellar bursa, previous puncture site from yesterday's aspiration. He does have a possible small knee effusion which is not tender. Knee motion is 0 to 100 degrees with mild discomfort anteriorly. Pain with axial loading of the knee. No posterior calf pain. Negative Homans sign. He is easily able to do a straight leg raise bilaterally. Grade 5 strength at the knee and ankle. Erythema does not seem to be extending proximally further than yesterday Laboratory work and vital signs reviewed Blood sugar still elevated but improved Gram stain and cultures suggestive of staph aureus bacteria right knee prepatellar bursa. Final results pending - Physical Exam Vital Signs Temp Pulse Resp BP Pulse Ox 99.6 F H 90 18 167/90 H 93 12/09/18 08:24 12/09/18 11:00 12/09/18 11:00 12/09/18 08:24 12/09/18 11:00 Oxygen Flow Rate (L/min) 3 Oxygen Delivery Method Room Air Weight: 130.272 kg Body Mass Index (BMI) 40.0 Intake and Output for Last 24 Hours 12/07/18 12/08/18 12/09/18 23:59 23:59 23:59 Intake Total 3915.00 / 3915.00 1936.67 / 1936.67 Output Total 1400 / 1400 Balance 2515.00 / 2515.00 1936.67 / 1936.67 Microbiology Past 72 Hours 12/08/18 14:03 Gram Stain - Final Fluid - Synovial (joint) Body Fluid Culture - Preliminary Staphylococcus aureus Laboratory Tests Past 24 Hrs 12/08/18 12/09/18 12/09/18 Unknown 05:30 05:30 WBC 17.3 H RBC 4.17 L Hgb 11.4 L Hct 35.4 L MCV 84.9 MCH 27.3 MCHC 32.2 RDW Std Deviation 40.1 RDW Coeff of Rajendra 13.0 Plt Count 265 MPV 10.9 Neut % (Auto) Not Reportable Absolute Neuts (auto) 14.9 H Absolute Lymphs (auto) 0.87 Total Counted 100 Neutrophils % (Manual) 80 H Band Neutrophils % 6 H Lymphocytes % (Manual) 5 L Monocytes % (Manual) 4 Basophils % (Manual) 1 Metamyelocytes % 4 H Diff Path Review May foll Platelet Estimate ADEQUATE RBC Morphology N CYTIC Polychromasia RARE Sodium 134 L Potassium 3.4 L Chloride 97 L Carbon Dioxide 27.0 Anion Gap 10 BUN 35 H Creatinine 1.11 Estim Creat Clear Calc 84.80 Est GFR (MDRD) Af Amer 90 Est GFR (MDRD) Non-Af 74 BUN/Creatinine Ratio 31.5 H Glucose 280 H Calcium 8.4 L Phosphorus 2.3 L Magnesium 2.3 Total Bilirubin 0.60 AST 15 ALT 19 Alkaline Phosphatase 135 H Total Protein 6.9 Albumin 1.9 L Globulin 5.0 H Albumin/Globulin Ratio 0.4 L Triglycerides 179 Cholesterol 179 LDL Cholesterol 116 VLDL Cholesterol 36 HDL Cholesterol 27 L U Random Total Protein Ur Random Sodium Urine Creatinine Protein/Creatinin Ratio Synovial Source RT KNEE Synovial Color Red Synovial Appearance Cloudy Synovial Viscosity Sl. Viscous Synovial WBC 261.5200 H Synovial RBC 0.684 H Synovial Tot Cell Ct 265.4800 H Synov Polynuclear WBCs 238.506 Synovial Neutrophils 98 H Synovial Other Cells 2 Synovial Polynuclear % 85.1 Synovial Mononuclear % 14.9 Synovial Path Comment May follow 12/09/18 12/09/18 12/09/18 05:58 05:58 05:58 WBC RBC Hgb Hct MCV MCH MCHC RDW Std Deviation RDW Coeff of Rajendra Plt Count MPV Neut % (Auto) Absolute Neuts (auto) Absolute Lymphs (auto) Total Counted Neutrophils % (Manual) Band Neutrophils % Lymphocytes % (Manual) Monocytes % (Manual) Basophils % (Manual) Metamyelocytes % Diff Path Review Platelet Estimate RBC Morphology Polychromasia Sodium Potassium Chloride Carbon Dioxide Anion Gap BUN Creatinine Estim Creat Clear Calc Est GFR (MDRD) Af Amer Est GFR (MDRD) Non-Af BUN/Creatinine Ratio Glucose Calcium Phosphorus Magnesium Total Bilirubin AST ALT Alkaline Phosphatase Total Protein Albumin Globulin Albumin/Globulin Ratio Triglycerides Cholesterol LDL Cholesterol VLDL Cholesterol HDL Cholesterol U Random Total Protein 103.4 H Ur Random Sodium 8 Urine Creatinine 111.00 110.00 Protein/Creatinin Ratio 940 H Synovial Source Synovial Color Synovial Appearance Synovial Viscosity Synovial WBC Synovial RBC Synovial Tot Cell Ct Synov Polynuclear WBCs Synovial Neutrophils Synovial Other Cells Synovial Polynuclear % Synovial Mononuclear % Synovial Path Comment POC Glucose 12/09/18 12/09/18 12/08/18 11:50 06:45 21:49 POC Glucose 327 H 296 H 365 H 12/08/18 16:35 POC Glucose 375 H Medical Necessity - Tobacco Use Smoking Status: Never smoker Assessment/Plan Right lower extremity cellulitis, probable prepatellar bursitis, after knee contusion, abrasion. Doubt septic knee joint. We discussed possibility of aspirating his bursa and/or knee joint. We decided again to not aspirate his knee joint. I explained if there is no knee joint infection we could possibly seed his joint by aspirating through skin with cellulitis. I did express purulent material from his previous puncture site at the right lateral prepatellar bursa region. Approximately 2 to 3 cc was expressed. Sterile bandage was applied. We will continue on IV antibiotics. Case discussed with hospitalist. Certainly he would benefit from better control of his blood sugars and I explained we do not do elective knee surgery if there hemoglobin A1c is above 8. I also explained with elevated blood sugars he would be at risk for any surgery, wound healing complications. I explained untreated/poorly treated diabetes can certainly lead to lower extremity amputations. We will plan to reevaluate him tomorrow. Possibly re-aspirate knee region if needed. No surgery planned at this point.
[2018-12-09 16:16] LABS: Bedside Glucose 290 mg/dL (70-110)
[2018-12-09] MEDS: Na Biphos/Potassium Phosphate PACKET 1 PACKET PO ×2 (17:10→21:21)
[2018-12-09] MEDS: Atorvastatin Calcium 80 MG Tablet PO (21:21)
[2018-12-09 23:06] LABS: Bedside Glucose 364 mg/dL (70-110)
[2018-12-10 04:48] VITALS: BP 167/92; PULSE 104; RESP 20; TEMP 37.7; O2SAT 93
[2018-12-10 05:00] LABS: Hematocrit 35.7 % (40-54); Hemoglobin 11.7 g/dL (13.0-16.5); Mean Corp Hgb Conc 32.8 g/dL (32-36); Mean Corpuscular Hgb 27.9 pg (27.0-32.0); Mean Corpuscular Volume 85.2 fL (80-94); Mean Platelet Vol. 11.2 fl (6.2-12.0); Platelet Count 199 K/mm3 (150-450); RBC Distribution Width CV 13.2 % (11.6-14.6); RBC Distribution Width SD 40.5 fl (35.1-43.9); Red Blood Count 4.19 M/mm3 (4.6-6.2); White Blood Count 16.2 K/mm3 (4.4-11.0)
[2018-12-10 05:07] LABS: Vancomycin, Trough Level 16.3 ug/mL (5.0-15.0)
[2018-12-10 05:20] LABS: Albumin, Serum 1.7 g/dL (3.2-5.0); BUN 34 mg/dL (7-18); BUN/Creat Ratio 37.7 RATIO (10-20); Calcium,Total 7.7 mg/dL (8.5-10.1); Chloride 103 mmol/L (98-107); EST Glomerular Filtration Rate 94 mL/min (>60); Est Glom Filt Rate - Afr Amer 114 mL/min (>60); Estimated Creatinine Clearance 104.58 ml/min; Glucose 248 mg/dL (74-106); Phosphorus 2.8 mg/dL (2.5-4.9); Sodium Level 138 mmol/L (136-145)
--- NOTE | 2018-12-10 05:43 | PCM.RX.CS ---
Consult Pharmacy has been consulted to manage selected antiobiotic: Vancomycin Type of Consult: Follow-up Labs: Sodium 138 mmol/L (136-145) 12/10/18 04:39 Potassium 4.0 mmol/L (3.5-5.1) 12/10/18 04:39 Chloride 103 mmol/L (98-107) 12/10/18 04:39 Carbon Dioxide 22.0 mmol/L (21.0-32.0) 12/10/18 04:39 10 (5-15) 12/09/18 05:30 BUN 34 mg/dL (7-18) H 12/10/18 04:39 0.90 mg/dL (0.70-1.30) 12/10/18 04:39 Est GFR (MDRD) Af Amer 114 mL/min (>60) 12/10/18 04:39 Est GFR (MDRD) Non-Af 94 mL/min (>60) 12/10/18 04:39 37.7 RATIO (10-20) H 12/10/18 04:39 Glucose 248 mg/dL (74-106) H 12/10/18 04:39 Vancomycin Trough 16.3 ug/mL (5.0-15.0) H 12/10/18 04:39 Microbiology: Microbiology 12/08/18 14:03 Fluid - Synovial (joint) Gram Stain - Final 12/08/18 14:03 Fluid - Synovial (joint) Body Fluid Culture - Preliminary Staphylococcus aureus Goal Trough: 15-20 mcg/mL Pharmacy Plan for Drug Dosing: Pharmacy Service will continue to monitor and adjust dosing as required. TROUGH 16.2 NO CHANGES Follow-Up Labs: Trough Vancomycin Labs to be done on [date and time ordered]: 12/14 @ 7523
[2018-12-10] MEDS: Insulin Lispro 100 UNIT/ML INSULN.PEN SC ×3 (06:42→11:24)
[2018-12-10 06:50] VITALS: O2SAT 93
[2018-12-10 07:05] LABS: Bedside Glucose 273 mg/dL (70-110)
[2018-12-10] MEDS: Piperacil/Tazobactam 3.375 GM Q8 PREMIX IV (08:33)
[2018-12-10] MEDS: Aspirin 81 MG TAB.CHEW PO (08:34)
[2018-12-10] MEDS: metFORMIN HCl 1,000 MG Tablet 1000 MG PO (08:34)
[2018-12-10 08:45] VITALS: PULSE 96
[2018-12-10 10:02] VITALS: BP 163/81; PULSE 106; RESP 18; TEMP 37.2; O2SAT 93
--- NOTE | 2018-12-10 10:08 | PCM.HP.ID ---
Problem List (1) Bursitis Status: Acute Reason for Consult: bursitis Consulted by: Dr. Lancaster History of Present Illness: The patient is a 48 year old M with h/o DM, presented 12/08 with one weeks of R knee progressive pain, swelling, redness. Sx started after he fell and landed on knee in garage and scrapped his skin. Pain became severe, no drainage, no prior h/o skin abscess. Came to ED, aspiration done by Dr. Rowe, given vanc/zosyn. Pain improved, still some drainage. Full ROS Performed and neg except as noted above. - Medical History Past Medical History (Chronic Problems): Chronic Problems (Last Reviewed 06/10/18 @ 15:49 by Meka Barraza) Diabetes mellitus, type II (Chronic) History of non-ST elevation myocardial infarction (NSTEMI) (Chronic) Ischemic cardiomyopathy (Chronic) Stented coronary artery (Chronic) PTCA and TREY to LAD 06/23/13 @ [place]; Promus stent to DX 07/17/13 @ [facility] History of left heart catheterization (Chronic) 06/23/2013 @ [place] Atherosclerotic heart disease of [place] coronary artery without angina pectoris (Chronic) PTCA and TREY to LAD 06/23/13; Promus stent to DX 07/17/13 Obesity (Chronic) Hyperlipidemia (Chronic) Hypertension (Chronic) Allergies/Adverse Reactions: Allergies lisinopril Adverse Reaction (Intermediate, Verified 12/10/18 09:16) Cough losartan Adverse Reaction (Intermediate, Verified 12/10/18 09:16) cough Home Medications: Ambulatory Orders Medication Instructions Recorded Aspirin [Aspirin, Baby] 81 mg PO DAILY@0800 09/28/14 Famotidine [Pepcid] 20 mg PO DAILY 09/28/14 Mag-Ox 400 1 tab PO DAILY 09/28/14 Metoprolol(XL)Succ [Toprol Xl 25 mg PO DAILY 09/28/14 (Beta Brittany)] hydrochlorothiazide 25 mg tablet 25 mg PO QDAY 04/20/17 metformin 1,000 mg tablet 1,000 mg PO BID tab 04/20/17 nitroglycerin 0.4 mg sublingual 0.4 mg SUBLINGUAL Q5-15M PRN 04/20/17 tablet atorvastatin 80 mg tablet 80 mg PO QHS #90 tab 06/14/18 amlodipine 5 mg tablet 5 mg PO DAILY #90 tab 11/22/18 - Social History Tobacco Use: non-smoker Vital Signs Temp Pulse Resp BP Pulse Ox 99.9 F H 104 H 20 H 167/92 H 93 12/10/18 04:48 12/10/18 04:48 12/10/18 04:48 12/10/18 04:48 12/10/18 06:50 Oxygen Flow Rate (L/min) 3 Oxygen Delivery Method Room Air Weight: 130.272 kg Body Mass Index (BMI) 40.0 Microbiology Past 72 Hours 12/08/18 14:03 Gram Stain - Final Fluid - Synovial (joint) Body Fluid Culture - Final Staphylococcus aureus Anaerobic Culture - Final No anaerobic bacteria isolated. Laboratory Tests Past 24 Hrs 12/10/18 12/10/18 12/10/18 04:39 04:39 04:39 WBC 16.2 H RBC 4.19 L Hgb 11.7 L Hct 35.7 L MCV 85.2 MCH 27.9 MCHC 32.8 RDW Std Deviation 40.5 RDW Coeff of Rajendra 13.2 Plt Count 199 MPV 11.2 Sodium 138 Potassium 4.0 Chloride 103 Carbon Dioxide 22.0 BUN 34 H Creatinine 0.90 Estim Creat Clear Calc 104.58 Est GFR (MDRD) Af Amer 114 Est GFR (MDRD) Non-Af 94 BUN/Creatinine Ratio 37.7 H Glucose 248 H Calcium 7.7 L Phosphorus 2.8 Albumin 1.7 L Vancomycin Trough 16.3 H - Other Studies Radiology: [] reviewed Other Studies: [] Route of nutrition/ use of supplements: [] Nutritional Intake: [] IV Site: [] Cruz Catheter: [] - Physical Exam General: Alert, Oriented x3, Cooperative, No apparent distress HEENT: Atraumatic, PERRLA, EOMI Neck: Supple, No Nodes Lungs: Clear to auscultation, Normal air movement Cardiovascular: Regular rate, Regular Rhythm, No murmurs Abdomen: Soft, Non Tender, Non-Distended Extremities: Edema - mild RLE Skin: Ulcer/ Wound - scabs on R knee IV Site: Peripheral, without redness Musculoskeletal: No Tenderness to Palpation of Joints or Extremities Neurological: Cranial nerves II-XII grossly intact - Assessment/Plan Antibiotics: [] Assessment/Plan: [] MSSA R knee prepatellar bursitis - s/p aspiration. Followed by Dr. Rowe. Narrow abx to cefazolin. Improving. Plan on d/c home on keflex 500mg tid for 10 more days. ID followup prn. Thank you, d/w Dr. Lancaster, will follow.
[2018-12-10 10:10] VITALS: PULSE 106
[2018-12-10] MEDS: amLODIPine 5 MG Tablet PO (10:10)
[2018-12-10] MEDS: Famotidine 20 MG Tablet PO (10:10)
[2018-12-10] MEDS: Metoprolol(XL)Succ 25 MG Tablet PO (10:10)
[2018-12-10] MEDS: Na Biphos/Potassium Phosphate PACKET 1 PACKET PO (10:11)
--- NOTE | 2018-12-10 10:55 | DCINST_ITS ---
- Discharge Diagnoses Current Active Problems: Current Active and Chronic Problems (Last Reviewed 06/10/18 @ 15:49 by Meka Barraza) Right lower extremity cellulitis You will use the following diet at home:: Calorie/Carbohydrate Controlled (specify 1200, 1400, etc), Cardiac Discharge Activity: Return to Normal Activity Call your doctor if you observe: Fever of 101 or Higher, - - Increased redness or drainage right lower extremity. Allergies/Adverse Reactions: Allergies lisinopril Adverse Reaction (Intermediate, Verified 12/10/18 09:16) Cough losartan Adverse Reaction (Intermediate, Verified 12/10/18 09:16) cough Medications to take at Discharge Aspirin [Aspirin, Baby] 81 mg PO DAILY@0800 09/28/14 Famotidine [Pepcid] 20 mg PO DAILY 09/28/14 Mag-Ox 400 1 tab PO DAILY 09/28/14 Metoprolol(XL)Succ [Toprol Xl (Beta Brittany)] 25 mg PO DAILY 09/28/14 hydrochlorothiazide 25 mg tablet 25 mg PO QDAY 04/20/17 metformin 1,000 mg tablet 1,000 mg PO BID tab 04/20/17 nitroglycerin 0.4 mg sublingual tablet 0.4 mg SUBLINGUAL Q5-15M PRN 04/20/17 atorvastatin 80 mg tablet 80 mg PO QHS #90 tab 06/14/18 Amlodipine [Norvasc] 10 mg PO DAILY #30 tab 12/10/18 Cephalexin [Keflex] 500 mg PO Q8 #30 cap 12/10/18 Insulin Glargine [Lantus SoloStar Pen] 30 units SUBCUT 1100,2200 #1 box 12/10/18 The following prescriptions were given: Cephalexin [Keflex] 500 mg PO Q8 #30 cap Transmission Status: [facility] to [id number] Insulin Glargine [Lantus SoloStar Pen] 30 units SUBCUT 1100,2200 #1 box Transmission Status: Pending to [id number] Amlodipine [Norvasc] 10 mg PO DAILY #30 tab Transmission Status: [id number] Orders to be completed after discharge: Glucometer Location: None Selected Primary Care Physician: Joseph Ricks MD [Primary Care Provider] - Please follow up with your Primary Care Physician in: 3-5 Days Test Results: Test results from this visit will be discussed in further detail at your follow- up appointment, if applicable. Please Follow Up With: Flavio Rowe MD When: 3-5 Days Proposed Discharge Date: 12/10/18
--- NOTE | 2018-12-10 10:59 | PCM.DC.SUM ---
<Susanna Anguiano - Last Filed: 12/10/18 11:12> Discharge Date and Diagnosis Date of Admission: 12/08/18 Date of Discharge: 12/10/18 - Primary Discharge Diagnosis Active and Suspected Problems (Last Reviewed 06/10/18 @ 15:49 by Meka Barraza) 1. Acute sepsis secondary to right lower extremity staph aureus cellulitis, probable prepatellar bursitis 2. Acute kidney injury-resolved. 3. Hypovolemic hyponatremia-resolved. 4. Type 2 diabetes mellitus, very poorly controlled-hemoglobin A1c 15.6%. 5. CAD status post stents 6. Hypertension 7. Hyperlipidemia 8. Obesity 9. GERD 10. Normocytic anemia - Secondary Discharge Diagnosis Chronic Problems (Last Reviewed 06/10/18 @ 15:49 by Meka Barraza) Diabetes mellitus, type II (Chronic) History of non-ST elevation myocardial infarction (NSTEMI) (Chronic) Ischemic cardiomyopathy (Chronic) Stented coronary artery (Chronic) PTCA and TREY to LAD 06/23/13 @ [place]; Promus stent to DX 07/17/13 @ [facility] History of left heart catheterization (Chronic) 06/23/2013 @ [place] Atherosclerotic heart disease of [place] coronary artery without angina pectoris (Chronic) PTCA and TREY to LAD 06/23/13; Promus stent to DX 07/17/13 Obesity (Chronic) Hyperlipidemia (Chronic) Hypertension (Chronic) Hospital Course and Treatment Imaging Results: Diagnostic Data Tibia/Fibula X-Ray 12/08/18 08:35 IMPRESSION: Soft tissue edema no visualized acute fracture. Small joint effusion. Plantar spur. Calf edema. Electronically Signed: Ana Villarreal MD at 9:59 EDT Tel , Service support , Knee X-Ray 12/08/18 11:31 IMPRESSION: No acute abnormality. Electronically Signed: Parish Rice MD at 14:11 EDT , Service support , Dr. Flavio Rowe- ortho Dr. Nick- ID Operations: None Procedures: None Summary of Care Provided: The patient is a 48 year old M admitted 12/08/2018 due to right lower extremity pain and redness. 1. Acute sepsis secondary to right lower extremity staph aureus cellulitis, probable prepatellar [id number] right tibia/fibula demonstrated soft tissue edema with no acute fracture, small joint effusion. Calf edema. Duplex ultrasound right lower extremity negative for DVT. Ortho consulted. Aspirated 12/08/[address] Flavio Rowe from the right prepatellar bursa, cultures showed Staphylococcus aureus. Infectious disease consulted. Recommend discharging on Keflex 500 mg 3 times daily for 10 days. Follow-up with primary care physician in 3 to 5 days. Follow-up with Dr. Rowe in 3 to 5 days as well. 2. Acute kidney injury-resolved with IV fluids. 3. Hypovolemic hyponatremia-resolved with IV fluids. 4. Type 2 diabetes mellitus, very poorly controlled-hemoglobin A1c 15.6%. Continue home metformin regimen. Glucometer and testing supplies prescription given to patient. Instructed patient to check blood glucose before meals and at bedtime. Discharge on Lantus 30 units subcu twice daily. Patient will document blood sugar readings and report to primary care physician for further adjustment of insulin regimen. Recommend referral to endocrinology as well. 5. CAD status post stents-follows with Dr. Franks. Continue aspirin, statin, beta-brittany. 6. Hypertension-blood pressure consistently 160s systolically during admission. Home amlodipine regimen increased to 10 mg daily. Continue home metoprolol regimen. 7. Hyperlipidemia-continue statin regimen. 8. Obesity-encouraged diet lifestyle modifications. Nutrition consult. 9. GERD-continue famotidine regimen. 10. Normocytic anemia-stable. General: Alert, Oriented x3, Cooperative HEENT: Atraumatic, PERRLA, EOMI, Normocephalic Neck: Supple, No JVD, Negative Carotid Bruits Lungs: Clear to auscultation, Normal air movement Cardiovascular: Regular rate, Regular Rhythm, Normal S1, Normal S2, No murmurs Abdomen: Bowel Sounds Present, Soft, Non Tender, Non-Distended, Obese Extremities: No clubbing, No cyanosis, Edema - Right lower extremity extending to upper thigh Skin: - - Right lower extremity redness from knee to mid calf. Scabbed abrasion anterior knee. Musculoskeletal: Tenderness - Right knee Neurological: Cranial nerves II-XII grossly intact, Neuro grossly intact Psych/Mental Status: Normal Affect, Appropriate Patient seen and examined prior to discharge. Physical assessment as noted above. Patient is stable for discharge with follow up recommendations as noted above. This patient was seen by BRENDA Davila under the supervision of Dr. Lancaster. - Physical Exam Vital Signs Temp Pulse Resp BP Pulse Ox 98.9 F 106 H 18 163/81 H 93 12/10/18 10:02 12/10/18 10:10 12/10/18 10:02 12/10/18 10:02 12/10/18 10:02 Oxygen Flow Rate (L/min) 3 Oxygen Delivery Method Room Air Weight: 287 lb 3.209 oz Body Mass Index (BMI) 40.0 Intake and Output for Last 24 Hours 12/08/18 12/09/18 12/10/18 23:59 23:59 23:59 Intake Total 3915.00 / 3915.00 4626.67 / 4926.67 1280 / 1280 Output Total 1400 / 1400 Balance 2515.00 / 2515.00 4626.67 / 4926.67 1280 / 1280 Microbiology Past 72 Hours 12/08/18 14:03 Gram Stain - Final Fluid - Synovial (joint) Body Fluid Culture - Final Staphylococcus aureus Anaerobic Culture - Final No anaerobic bacteria isolated. Laboratory Tests Past 24 Hrs 12/10/18 12/10/18 12/10/18 04:39 04:39 04:39 WBC 16.2 H RBC 4.19 L Hgb 11.7 L Hct 35.7 L MCV 85.2 MCH 27.9 MCHC 32.8 RDW Std Deviation 40.5 RDW Coeff of Rajendra 13.2 Plt Count 199 MPV 11.2 Sodium 138 Potassium 4.0 Chloride 103 Carbon Dioxide 22.0 BUN 34 H Creatinine 0.90 Estim Creat Clear Calc 104.58 Est GFR (MDRD) Af Amer 114 Est GFR (MDRD) Non-Af 94 BUN/Creatinine Ratio 37.7 H Glucose 248 H Calcium 7.7 L Phosphorus 2.8 Albumin 1.7 L Vancomycin Trough 16.3 H POC Glucose 12/10/18 12/09/18 12/09/18 06:40 21:17 16:09 POC Glucose 273 H 364 H 290 H 12/09/18 11:50 POC Glucose 327 H Discharge Diet: Low fat/ Low Cholesterol, 1800 Calorie Control Diet, Carb Control Diet Discharge Activity: Return to Normal Activity Call your doctor if you observe: Fever of 101 or Higher, - - Increased redness or drainage right lower extremity. Home Medications: Medications to take at Discharge Aspirin [Aspirin, Baby] 81 mg PO DAILY@0800 09/28/14 Famotidine [Pepcid] 20 mg PO DAILY 09/28/14 Mag-Ox 400 1 tab PO DAILY 09/28/14 Metoprolol(XL)Succ [Toprol Xl (Beta Brittany)] 25 mg PO DAILY 09/28/14 hydrochlorothiazide 25 mg tablet 25 mg PO QDAY 04/20/17 metformin 1,000 mg tablet 1,000 mg PO BID tab 04/20/17 nitroglycerin 0.4 mg sublingual tablet 0.4 mg SUBLINGUAL Q5-15M PRN 04/20/17 atorvastatin 80 mg tablet 80 mg PO QHS #90 tab 06/14/18 Amlodipine [Norvasc] 10 mg PO DAILY #30 tab 12/10/18 Cephalexin [Keflex] 500 mg PO Q8 #30 cap 12/10/18 Insulin Glargine [Lantus SoloStar Pen] 30 units SUBCUT 1100,2200 #1 box 12/10/18 Pen Needle, Diabetic [facility] 12/10/18 Following Prescrptions Were Given to Patient: Pen Needle, Diabetic [[facility]: [id number] Cephalexin [Keflex] 500 mg PO Q8 #30 cap Transmission Status: Received by [id number] Insulin Glargine [Lantus SoloStar Pen] 30 units SUBCUT 1100,2200 #1 box Transmission Status: [facility] by [id number] Amlodipine [Norvasc] 10 mg PO DAILY #30 tab Transmission Status: Re[facility] by [id number] Other Amb Orders: Glucometer Location: None Selected Primary Care Physician: Joseph Ricks MD [Primary Care Provider] - Please follow up with your Primary Care Physician in: 3-5 Days Please Follow Up With: Flavio Rowe MD When: 3-5 Days Disposition: Home Minutes spent on discharge:: 35 Patient Condition:: Stable Medical Necessity - Tobacco Use Smoking Status: Never smoker Meaningful Use Info Meaningful Use Diagnoses (Choose all that apply): None applicable <Mirta Lancaster - Last Filed: 12/10/18 14:28> Discharge Date and Diagnosis - Secondary Discharge Diagnosis Chronic Problems (Last Reviewed 06/10/18 @ 15:49 by Meka Barraza) Diabetes mellitus, type II (Chronic) History of non-ST elevation myocardial infarction (NSTEMI) (Chronic) Ischemic cardiomyopathy (Chronic) Stented coronary artery (Chronic) PTCA and TREY to LAD 06/23/13 @ [place]; Promus stent to DX 07/17/13 @ [facility] History of left heart catheterization (Chronic) 06/23/2013 @ [place] Atherosclerotic heart disease of [place] coronary artery without angina pectoris (Chronic) PTCA and TREY to LAD 06/23/13; Promus stent to DX 07/17/13 Obesity (Chronic) Hyperlipidemia (Chronic) Hypertension (Chronic) Hospital Course and Treatment Summary of Care Provided: This patient was seen in conjunction with Susanna Anguiano NP. I have independently interviewed and examined the patient and reviewed pertinent historical, laboratory, and other data. Please refer to her note for patient's presentation, findings, and recommendations. 48-year-old male with past medical history of type II DM, hypertension, CAD status post stents, obesity who comes in with complaints of right lower extremity pain and redness. Patient reported that he fell a week prior to admission on his right knee. He noticed increased pain in the knee but denied any fever or chills. He was found to have right lower extremity cellulitis/prepatellar bursitis and was managed as acute sepsis secondary to right lower leg. Duplex lower extremity was negative. Patient was also found to have acute kidney injury as well as hypovolemic hyponatremia. Orthopedics were consulted. Patient's HbA1c was 15.6. He was started on insulin. Started on IV vancomycin and Zosyn. He underwent bedside bursa aspiration. Wound/aspirate cultures grew MSSA. Patient antibiotics was switched to IV cefazolin by infectious disease and he was discharged on Keflex. Blood sugars were fairly uncontrolled in the hospital. He was given diabetic education and started on high-dose insulin. He was told to follow-up closely with his primary care doctor within a week with his blood sugars as well as follow-up with an data modeler. He will also follow-up with orthopedic surgery. On the day of discharge, patient was seen and examined. He denied any new complaints. His pain was fairly controlled. Vitals were reviewed -stable Physical Exam: Gen: Comfortable, obese, not pale, not jaundiced, alert oriented x3 CVS:HS I +II, regular, no murmurs RESP: CTA GI: BS present and normal, nontender, no palpable organs EXT:No edema - Physical Exam Vital Signs Temp Pulse Resp BP Pulse Ox 98.5 F 109 H 18 152/85 H 93 12/10/18 14:08 12/10/18 14:08 12/10/18 14:08 12/10/18 14:08 12/10/18 14:08 Oxygen Flow Rate (L/min) 3 Oxygen Delivery Method Room Air Weight: 130.272 kg Body Mass Index (BMI) 40.0 Intake and Output for Last 24 Hours 12/08/18 12/09/18 12/10/18 23:59 23:59 23:59 Intake Total 3915.00 / 3915.00 4626.67 / 4926.67 1780 / 1780 Output Total 1400 / 1400 Balance 2515.00 / 2515.00 4626.67 / 4926.67 1780 / 1780 Microbiology Past 72 Hours 12/08/18 14:03 Gram Stain - Final Fluid - Synovial (joint) Body Fluid Culture - Final Staphylococcus aureus Anaerobic Culture - Final No anaerobic bacteria isolated. Laboratory Tests Past 24 Hrs 12/08/18 12/08/18 12/09/18 08:44 Unknown 05:30 WBC RBC Hgb Hct MCV MCH MCHC RDW Std Deviation RDW Coeff of Rajendra Plt Count MPV Diff Path Review Reviewed Reviewed Sodium Potassium Chloride Carbon Dioxide BUN Creatinine Estim Creat Clear Calc Est GFR (MDRD) Af Amer Est GFR (MDRD) Non-Af BUN/Creatinine Ratio Glucose Calcium Phosphorus Albumin Synovial Path Comment Reviewed Vancomycin Trough 12/10/18 12/10/18 12/10/18 04:39 04:39 04:39 WBC 16.2 H RBC 4.19 L Hgb 11.7 L Hct 35.7 L MCV 85.2 MCH 27.9 MCHC 32.8 RDW Std Deviation 40.5 RDW Coeff of Rajendra 13.2 Plt Count 199 MPV 11.2 Diff Path Review Sodium 138 Potassium 4.0 Chloride 103 Carbon Dioxide 22.0 BUN 34 H Creatinine 0.90 Estim Creat Clear Calc 104.58 Est GFR (MDRD) Af Amer 114 Est GFR (MDRD) Non-Af 94 BUN/Creatinine Ratio 37.7 H Glucose 248 H Calcium 7.7 L Phosphorus 2.8 Albumin 1.7 L Synovial Path Comment Vancomycin Trough 16.3 H POC Glucose 12/10/18 12/10/18 12/09/18 11:21 06:40 21:17 POC Glucose 304 H 273 H 364 H 12/09/18 16:09 POC Glucose 290 H Code Visit Inpatient E&M: 84018 Disch Hosp
[2018-12-10 11:41] LABS: Bedside Glucose 304 mg/dL (70-110)
[2018-12-10 12:25] LABS: Pathologist Comment Reviewed
[2018-12-10 12:27] LABS: Pathologist Review Reviewed
--- NOTE | 2018-12-10 12:30 | CASEMGMT ---
RN CM Assessment Presentation: RLE cellulitis Intro role of CM and purpose of RN CM assessment. Demographics, PCP and Pharmacy verified.Pt states he is independent at home; plans to return home and can assist if needed. can assist with any care at home. PCP: Dr. Ricks Specialists: Dr. Nick, ID. F/U with Dr. Flavio Rowe on 12/13/18 Preferred Pharmacy: [facility], [place] Insurance: [employer] Prescription Benefit: yes LNOK: Living Arrangements: Lives independently- no care needs identified. Transportation: drives or can drive DME: none used per pt HHC: none Patient DC goals: Home DC PLAN: Home. Reviewed new medications with pt, and f/u appointments. Pt states he will not have difficulty with f/u. Pt will need to check BS @ home, and states his is picking up a blood glucose monitor now. Any ARVIZU RN ACM
[2018-12-10 12:31] LABS: Pathologist Review Reviewed
[2018-12-10 14:08] VITALS: BP 152/85; PULSE 109; RESP 18; TEMP 36.9; O2SAT 93
--- NOTE | 2018-12-11 15:22 | CASEMGMT ---
RADHA KISER Discharge Follow-Up Phone Call. Luz: Johnson Strata: 3 Discharge Date: 12/10/18 Adm Dx: Cellulitis LE, uncontrolled DM Call to pt to inquire about how he has been doing since being discharged from the hospital. Pt states he has been doing okay but states he is still having swelling in his leg and some in his private area and inquired about what he should do about it. He states he has been trying to increase his activity as instructed by the doctor's. Asked pt if this swelling is new or if this has been going on. Pt states he was having this swelling in the hospital as well and states, I really don't think it's getting any worse. Pt advised to contact his PCP and inquire about getting an appt earlier than Sunday if the swelling worsens. Pt voices understanding. Pt states his was able to pharmacy picking tech the new prescriptions and denies having any questions about them. He states he has been using the glucometer and checking/recording his blood sugars as instructed and has been administering the insulin as ordered as well. He denies having any difficulty or questions. Pt states is aware of both of his appts on Sunday. Pt denies having any other questions or concerns and thanked RADHA KISER for calling him. RADHA KISER thanked pt for choosing [facility]. Valentino ARVIZU RN, CM
== END 2018-12-10 14:25 | disposition home or self-care (01) | DRG 872 ==
LOC: ED 09:05 → MS3 09:54
PROVIDERS: Nurse Practitioner Family; Orthopaedic Surgery; Admitting Provider Internal Medicine; Emergency Provider Emergency Medicine; Family Provider Family Medicine; PCP Family Medicine; Visit Provider Internal Medicine
DX: A41.9 Sepsis, unspecified organism (principal); L03.115 Cellulitis of right lower limb; E87.1 Hypo-osmolality and hyponatremia; N17.9 Acute kidney failure, unspecified; Z68.41 Body mass index [BMI] 40.0-44.9, adult; I25.10 Atherosclerotic heart disease of native coronary artery without angina pectoris; S80.211A Abrasion, right knee, initial encounter; W10.8XXA Fall (on) (from) other stairs and steps, initial encounter; Y92.008 Other place in unspecified non-institutional (private) residence as the place of occurrence of the external cause; E11.65 Type 2 diabetes mellitus with hyperglycemia; E78.5 Hyperlipidemia, unspecified; E66.01 Morbid (severe) obesity due to excess calories; M71.161 Other infective bursitis, right knee; B95.61 Methicillin susceptible Staphylococcus aureus infection as the cause of diseases classified elsewhere; D64.9 Anemia, unspecified; K21.9 Gastro-esophageal reflux disease without esophagitis; I10 Essential (primary) hypertension; Z95.5 Presence of coronary angioplasty implant and graft; I25.2 Old myocardial infarction
CPT/HCPCS: 36415; 73562; 73590; 80048; 80053; 80061; 80069; 80202; 81001; 82570; 82947; 82962; 83036; 83605; 83735; 84100; 84156; 84300; 85025; 85027; 85652; 86140; 87040; 87070; 87075; 87077; 87101; 87186; 87205; 89050; 89051; 93971; 97802; 99284; J7030; J7040; J7050; A4216

== ENCOUNTER 2018-12-11 18:39 | Inpatient (IN) | payer OTHER, SELFPAY ==
[2018-12-08 10:33] VITALS: BMI 40.0
[2018-12-11] VITALS (9 sets, daily range): BP systolic 153–183; BP diastolic 82–89; PULSE 98–107; RESP 16–33; TEMP 36.2–37.4; O2SAT 92–96; BMI 37.6; BMI 42.0
--- NOTE | 2018-12-11 19:01 | US_ITS ---
STUDY: SCROTUM ULTRASOUND REASON FOR EXAM: Male, 48 years old. Mild bilateral scrotal swelling TECHNIQUE: Ultrasound evaluation of the scrotum was performed with color Doppler and static mobley-scale imaging. COMPARISON: None. FINDINGS: Nonspecific edematous changes of the scrotal wall bilaterally. RIGHT TESTICLE INTRATESTICULAR: There is a normal size of the right testicle. The right testicle measures 5.3 x 4.1 x 2.9 cm. There is a homogenous echotexture. There is normal arterial and normal venous vascularity. There is no demonstrated right testicular mass or cyst. Nonspecific microlithiasis EXTRATESTICULAR: The epididymis is normal in size. The epididymis head measures 1.7 x 1.1 x 0.8 cm. There is normal vascularity of the epididymis. Tiny epididymal cyst measuring 2.4 x 2 mm There is no demonstrated hydrocele. There is no demonstrated varicocele. There is no demonstrated extratesticular mass or cyst. LEFT TESTICLE INTRATESTICULAR: There is a normal size of the left testicle. The left testicle measures 5.1 x 3.7 x 2.8 cm. There is a homogenous echotexture. There is normal arterial and normal venous vascularity. Small anechoic nodule measuring 3 x 4 x 3 mm Tiny nonspecific calcification noted EXTRATESTICULAR: The epididymis is normal in size. The epididymis head measures 1.3 x 0.9 x 0.9 cm. There is normal vascularity of the epididymis. There is no demonstrated epididymal cystic structure. There is a small hydrocele. There is no demonstrated varicocele. There is no demonstrated extratesticular mass or cyst. US/Testicular with Arterial Flow IMPRESSION: Nonspecific edematous changes of the scrotal childress No evidence for testicular torsion or inflammatory disease Nonspecific bilateral edematous scrotal childress Tiny right epididymal cyst and small left hydrocele. Multiple tiny calcifications in the right testis and solitary calcification on the left.. There is a very small anechoic nodule in the left testis measuring 3 x 4 x 3 mm. This is of uncertain etiology or clinical significance however in view of the presence of microlithiasis possibility of seminoma cannot be entirely excluded. Recommend clinical correlation and follow-up. MRI of the scrotum would be helpful for further evaluation if indicated Electronically Signed: Jimy Kelly MD at 20:16 EDT , Service support ,
--- NOTE | 2018-12-11 19:04 | ED.DCSUM_ITS ---
- ER Visit Summary Date of Service: 12/11/18 Chief Complaint: Edema History of Present Illness: The patient is a 48 M presenting with edema. He was discharged from the hospital yesterday. He was admitted with right lower extremity infection. He states during his admission he was seen by Dr. Rowe. He was also seen by infectious disease and sent home on Keflex. He states his right lower extremity is improving. He now complains of testicular swelling and foul-smelling urine. He denies dysuria. Denies abdominal pain. Denies chest pain or shortness of breath. States he was given a lot of fluids while in the hospital and is unsure if this is the cause of his swelling. Physical Examination: Vitals are stable. Patient is afebrile. Alert no acute distress. HEENT exam is unremarkable. Neck is supple. Lungs are clear and equal bilaterally. Heart is regular rate and rhythm. Abdomen is soft nontender nondistended. : Diffuse scrotal swelling, no tenderness. Erythema, no areas of fluctuance Extremities right lower extremity erythema, normal distal pulses, active full r tiago of motion right knee Skin is warm and dry. No focal neurologic deficit. Remainder of exam is unremarkable. Emergency Department Course and Treatment: CBC shows white count 15.6, hemoglobin 11.3. Chemistries show glucose 306, BUN 34, creatinine 1.36. Urinalysis shows 0-5 white blood cells, 0 red cells. Chest x-ray shows mild congestive failure. Testicular ultrasound shows nonspecific edematous changes of the scrotal childress. No evidence for testicular torsion or inflammatory disease. Nonspecific bilateral edematous scrotal childress. Tiny right epididymal cyst and small left hydrocele. Multiple tiny calcifications in the right testis and solitary calcification on the left. There is a very small anechoic nodule in the left testis measuring 3 x 4 x 3 mm. This is of uncertain etiology or clinical significance however in view of the presence of microlithiasis possibility of seminoma cannot be entirely excluded. Recommend clinical correlation and follow-up. While in the ED patient became more short of breath and is now on 2 L nasal cannula oxygen. His oxygen sat was 89 to 90% on room air, 95% on 2 L. Patient is having any difficulty ambulating secondary to his scrotal swelling. I feel he is fluid overloaded. Discussed with the hospitalist for admission. Disposition: Admission Impression: CHF, fluid overload This note was generated with Dragon dictation software. It may contain incorrect words, spelling, and punctuation that were not noted in review of the chart prior to signing ED Disposition - Plan for ED Patient: Disposition: Acute Care Hospital [facility] Referrals: Joseph Ricks MD [Primary Care Provider] -
--- NOTE | 2018-12-11 19:04 | RAD_ITS ---
STUDY: X-RAY CHEST REASON FOR EXAM: Male, 48 years old. Leg edema TECHNIQUE: AP COMPARISON: April 28, 2017 FINDINGS: There is mild pulmonary vascular congestion.. There is no demonstrated pleural abnormality. Heart is enlarged. Normal mediastinum and paula. Normal visualized pulmonary arteries. Normal visualized aortic arch and descending thoracic aorta. Normal visualized thoracic spine. Normal visualized ribs, clavicles, and shoulders. There is no demonstrated abnormality of the visualized soft tissue structures of the upper abdomen. RAD/Chest 1 View (Portable) IMPRESSION: Mild congestive failure.. Electronically Signed: Jimy Kelly MD at 19:19 EDT , Service support ,
[2018-12-11 19:23] LABS: Hematocrit 34.8 % (40-54); Hemoglobin 11.3 g/dL (13.0-16.5); Mean Corp Hgb Conc 32.5 g/dL (32-36); Mean Corpuscular Volume 86.1 fL (80-94); POSITIVE COUNT YES; POSITIVE DIFFERENTIAL YES; POSITIVE MORPHOLOGY YES; Platelet Count 253 K/mm3 (150-450); RBC Distribution Width CV 13.4 % (11.6-14.6); RBC Distribution Width SD 42.1 fl (35.1-43.9); Red Blood Count 4.04 M/mm3 (4.6-6.2); White Blood Count 15.6 K/mm3 (4.4-11.0)
[2018-12-11 19:26] LABS: Differential Indicated MANUAL DIFF
[2018-12-11 19:45] LABS: Anion Gap 7 (5-15); BUN 34 mg/dL (7-18); Calcium,Total 8.3 mg/dL (8.5-10.1); Chloride 101 mmol/L (98-107); Creatinine, Serum 1.36 mg/dL (0.70-1.30); EST Glomerular Filtration Rate 59 mL/min (>60); Est Glom Filt Rate - Afr Amer 71 mL/min (>60); Estimated Creatinine Clearance 69.21 ml/min; Glucose 306 mg/dL (74-106); Potassium 3.9 mmol/L (3.5-5.1); Sodium Level 137 mmol/L (136-145)
[2018-12-11 19:57] LABS: Lactic Acid 1.7 mmol/L (0.4-2.0)
[2018-12-11 20:02] LABS: Eosinophil 1 % (0-5); Lymphocyte 5 % (19-41); Metamyelocyte 2 % (0-1); Monocyte 9 % (0-10); Myelocyte 1 (0-0); Neutrophil-Band 2 % (0-5); Neutrophil-Segmented 80 % (47-70); Total Cells Counted 100 (MANUAL DIFF)
[2018-12-11 20:03] LABS: Differential Comment SCANNED; Nucleated Red Bld Cells,Manual 1 % (0-5); Platelet Estimate ADEQUATE (ADEQ); Polychromasia RARE
[2018-12-11 20:04] LABS: Absolute Lymphocyte Count 0.78 X10^3/uL (0.83-4.51); Absolute Neutrophil Count 12.8 X10^3/uL (2.0-7.7); Lymphocyte # 0.78 X10^3/ul (4.0); Neutrophil # 12.79 X10^3/uL (2.7-7.7)
[2018-12-11 20:08] LABS: Mucous, Urine 0 SEEN /hpf (<or=2+); Red Blood Cells-Urine 0 SEEN /hpf (0-5); Squamous Epithelial Cells - UA 0 SEEN /hpf (0-5)
[2018-12-11 20:17] LABS: Color, Urine Yellow (Yellow); Glucose, Dipstick 1000 mg/dl (Normal); Ketone-Dipstick Negative (Negative); Leukocyte Esterase-Dipstick Negative /ul (Negative); Nitrite-Dipstick Negative (Negative); Occult Blood-Urine 25 /ul (Negative); Protein-Dipstick 30 mg/dl (Negative); Specific Gravity, Urine 1.015 (1.002-1.030); Urine Bilirubin Dipstick Negative (Negative); Urine Clarity Clear (Clear); Urine Urobilinogen 4 mg/dl (Normal)
[2018-12-11 20:23] LABS: Bacteria RARE /hpf (None Seen); White Blood Cells 0-5 SEEN /hpf (0-5)
--- NOTE | 2018-12-11 21:02 | HP.PCM_ITS ---
Problem List (1) Heart failure Status: Acute (2) Diabetes mellitus, type II Status: Chronic (3) History of non-ST elevation myocardial infarction (NSTEMI) Status: Chronic (4) Stented coronary artery Status: Chronic Comment: PTCA and TREY to LAD 06/23/13 @ [facility]; Promus stent to DX 07/17/13 @ [facility] (5) Scrotal edema Status: Acute History of Present Illness Date of Admission: 12/11/18 Chief Complaint: SCROTAL SWELLING The patient is a 48 year old M with a significant history of obesity; hypertension; hypercholesterolemia; CAD status post coronary stents who was admitted on 12/08/2018; and discharge on 12/10/2018 for sepsis secondary to right lower extremity staph aureus cellulitis and prepatellar bursitis status post aspiration presenting next day after discharge with scrotal edema and inability to walk secondary to his scrotal edema and pain in his right leg. Patient has chronic 2-3 pillow orthopnea that been going on for many years. He denies paroxysmal nocturnal dyspnea. He denies any change in his weights. He denied feeling tired. In the emergency department his white count was 15.6. Creatinine was elevated at 1.36. Testicular ultrasound was remarkable for nonspecific edematous changes of the scrotal childress; tiny right epididymal cyst and small left hydrocele; multiple tiny calcifications in the right testis and symmetric calcifications on the left; very small anechoic nodule in the left testicles measuring 3 x 3 x 4 x3 mm. Chest x-ray showed mild congestive heart failure. Patient was concerned that during previous admission he received so much IV fluids and this might be contributing to his edema. In regards to his recent right leg cellulitis he has noticed a decrease in redness of his right leg. Indeed he thinks that the redness in his right leg cellulitis is improving. Past Medical History Past Medical History (Chronic Problems): Chronic Problems (Last Reviewed 12/11/18 @ 23:06 by Per Feliciano MD) Diabetes mellitus, type II (Chronic) History of non-ST elevation myocardial infarction (NSTEMI) (Chronic) Ischemic cardiomyopathy (Chronic) Stented coronary artery (Chronic) PTCA and TREY to LAD 06/23/13 @ [facility]; Promus stent to DX 07/17/13 @ [facility] History of left heart catheterization (Chronic) 06/23/2013 @ [facility] Atherosclerotic heart disease of kiana coronary artery without angina pectoris (Chronic) PTCA and TREY to LAD 06/23/13; Promus stent to DX 07/17/13 Obesity (Chronic) Hyperlipidemia (Chronic) Hypertension (Chronic) Medical History: Medical History (Last Reviewed 12/11/18 @ 23:06 by Per Feliciano MD) Diabetes mellitus, type II (Chronic) E11.9 History of non-ST elevation myocardial infarction (NSTEMI) (Chronic) I25.2 Ischemic cardiomyopathy (Chronic) I25.5 Atherosclerotic heart disease of k[place] coronary artery without angina pectoris (Chronic) I25.10 PTCA and TREY to LAD 06/23/13; Promus stent to DX 07/17/13 Obesity (Chronic) Hyperlipidemia (Chronic) Hypertension (Chronic) Allergies lisinopril Adverse Reaction (Intermediate, Verified 12/11/18 18:40) Cough losartan Adverse Reaction (Intermediate, Verified 12/11/18 18:40) cough Home Medications: Ambulatory Orders Medication Instructions Recorded Aspirin [Aspirin, Baby] 81 mg PO DAILY@0800 09/28/14 Famotidine [Pepcid] 20 mg PO DAILY 09/28/14 Mag-Ox 400 1 tab PO DAILY 09/28/14 Metoprolol(XL)Succ [Toprol Xl 25 mg PO DAILY 09/28/14 (Beta Brittany)] hydrochlorothiazide 25 mg tablet 25 mg PO QDAY 04/20/17 metformin 1,000 mg tablet 1,000 mg PO BID tab 04/20/17 nitroglycerin 0.4 mg sublingual 0.4 mg SUBLINGUAL Q5-15M PRN 04/20/17 tablet atorvastatin 80 mg tablet 80 mg PO QHS #90 tab 06/14/18 Amlodipine [Norvasc] 10 mg PO DAILY #30 tab 12/10/18 Cephalexin [Keflex] 500 mg PO Q8 #30 cap 12/10/18 Insulin Glargine [Lantus SoloStar 30 units SUBCUT 1100,2200 #1 box 12/10/18 Pen] Pen Needle, Diabetic [Insulin Pen 1 ea [facility] #120 dis.needle 12/10/18 Needle] Surgical History: Surgical History (Last Reviewed 12/11/18 @ 23:06 by Per Feliciano MD) Stented coronary artery (Chronic) Z95.5 PTCA and TREY to LAD 06/23/13 @ [facility]; Promus stent to DX 07/17/13 @ [facility] History of left heart catheterization (Chronic) Z98.890 06/23/2013 @ [facility] Surgical History: - - Hernia repair, cardiac stents. Psychiatric History: No pertinent psych hx Lives: With Family Smoking Status: Never smoker - *Family History Maternal Family History: Family History (Last Reviewed 12/11/18 @ 23:06 by Per Feliciano MD) Father Myocardial infarction CAD (coronary artery disease) Sudden cardiac Mother Sick sinus syndrome Sister Diabetes History Items: Heart Disease Paternal Family History: Family History (Last Reviewed 12/11/18 @ 23:06 by Per Feliciano MD) Father Myocardial infarction CAD (coronary artery disease) Sudden cardiac Mother Sick sinus syndrome Sister Diabetes History Items: Heart Disease, - - At the age of 45 Review of Systems Constitutional: Denies: Chills, Fever, Weight Change, Fatigue HEENT: Denies: Head Aches, Sinus Congestion, Sinus Drainage Cardiovascular: Reports: Edema - scrotum. Denies: Chest Pain, Palpitations Respiratory: Denies: Cough, Shortness of breath at rest, Sputum production Gastrointestinal: Denies: Abdominal Pain, Nausea, Vomiting Genitourinary: Denies: Dysuria Musculoskeletal: Reports: Leg Pain - Right. Denies: Joint Pain, Joint Tenderness Skin: Reports: Skin Changes - right leg redness. Denies: Rash Neurological: Denies: Numbness, Tingling, Focal weakness Psychiatric: Denies: Anxiety, Depression, Homicidal Ideations, Suicidal Ideations Hematologic/ Lymphatic: Denies: Easy Bruising, Easy Bleeding VTE Information - Inpt Only VTE Present on Admission: No VTE Mechan Device Prophylaxis: None VTE Pharm Prophylaxis ordered?: Yes Patient Problems: Active and Suspected Problems (Last Reviewed 12/11/18 @ 23:06 by Per Feliciano MD) Heart failure (Acute) Scrotal edema (Acute) - Physical Exam General: Alert, Oriented x3, Cooperative HEENT: Atraumatic, PERRLA, EOMI, Normocephalic Neck: Supple, Trachea Midline Lungs: Clear to auscultation, Normal air movement Cardiovascular: No murmurs, Tachycardic Abdomen: Bowel Sounds Present, Soft, Non Tender Extremities: Capillary Refill Less than 3 Seconds, Edema - Bilateral pitting lower extremity edema; right worse than left. Skin: - - Redness of right leg; unroofing of skin around lateral right knee. Edematous scrotum. Musculoskeletal: Tenderness - Right leg Neurological: Cranial nerves II-XII grossly intact Psych/Mental Status: Normal Affect, Appropriate Vital Signs Temp Pulse Resp BP Pulse Ox 99.4 F H 98 19 H 183/89 H 93 12/11/18 19:57 12/11/18 19:57 12/11/18 19:57 12/11/18 19:57 12/11/18 19:57 Oxygen Flow Rate (L/min) 4 Oxygen Delivery Method Nasal Cannula Weight: 122.47 kg Body Mass Index (BMI) 37.6 Laboratory Tests Past 24 Hrs 12/11/18 12/11/18 12/11/18 19:15 19:15 19:15 WBC 15.6 H RBC 4.04 L Hgb 11.3 L Hct 34.8 L MCV 86.1 MCH 28.0 MCHC 32.5 RDW Std Deviation 42.1 RDW Coeff of Rajendra 13.4 Plt Count 253 MPV 10.0 Neut % (Auto) Not Reportable Absolute Neuts (auto) 12.8 H Absolute Lymphs (auto) 0.78 L Total Counted 100 Neutrophils % (Manual) 80 H Band Neutrophils % 2 Lymphocytes % (Manual) 5 L Monocytes % (Manual) 9 Eosinophils % (Manual) 1 Metamyelocytes % 2 H Myelocytes % 1 H Nucleated RBCs/100 WBC 1 Differential Comment SCANNED Diff Path Review May foll Platelet Estimate ADEQUATE Polychromasia RARE Sodium 137 Potassium 3.9 Chloride 101 Carbon Dioxide 29.0 Anion Gap 7 BUN 34 H Creatinine 1.36 H Estim Creat Clear Calc 69.21 Est GFR (MDRD) Af Amer 71 Est GFR (MDRD) Non-Af 59 L BUN/Creatinine Ratio 25.0 H Glucose 306 H Lactic Acid 1.7 Calcium 8.3 L Urine Color Urine Clarity Urine pH Ur Specific [place] Urine Protein Urine Glucose (UA) Urine Ketones Urine Occult Blood Urine Nitrite Urine Bilirubin Urine Urobilinogen Ur Leukocyte Esterase Urine RBC Urine WBC Ur Squamous Epith Cells Urine Bacteria Urine Mucus 12/11/18 20:03 WBC RBC Hgb Hct MCV MCH MCHC RDW Std Deviation RDW Coeff of Rajendra Plt Count MPV Neut % (Auto) Absolute Neuts (auto) Absolute Lymphs (auto) Total Counted Neutrophils % (Manual) Band Neutrophils % Lymphocytes % (Manual) Monocytes % (Manual) Eosinophils % (Manual) Metamyelocytes % Myelocytes % Nucleated RBCs/100 WBC Differential Comment Diff Path Review Platelet Estimate Polychromasia Sodium Potassium Chloride Carbon Dioxide Anion Gap BUN Creatinine Estim Creat Clear Calc Est GFR (MDRD) Af Amer Est GFR (MDRD) Non-Af BUN/Creatinine Ratio Glucose Lactic Acid Calcium Urine Color Yellow Urine Clarity Clear Urine pH 5.0 Ur Specific [place] 1.015 Urine Protein 30 H Urine Glucose (UA) 1000 H Urine Ketones Negative Urine Occult Blood 25 H Urine Nitrite Negative Urine Bilirubin Negative Urine Urobilinogen 4 H Ur Leukocyte Esterase Negative Urine RBC 0 SEEN Urine WBC 0-5 SEEN Ur Squamous Epith Cells 0 SEEN Urine Bacteria RARE Urine Mucus 0 SEEN Assessment/Plan All Active Problems (Last Reviewed 12/11/18 @ 23:06 by Per Feliciano MD) Heart failure (Acute) Scrotal edema (Acute) Bursitis (Resolved) The patient is a 48 year old M with a significant history of obesity; hypertension; hypercholesterolemia; CAD status post coronary stents who was admitted on 12/08/2018; and discharge on 12/10/2018 for sepsis secondary to right lower extremity staph aureus cellulitis and prepatellar bursitis status post aspiration presenting next day after recent discharge with scrotal edema and inability to walk secondary to his scrotal edema and pain in his right leg; leukocytosis; elevated creatinine; ultrasonic evidence of nonspecific edematous changes of scrotal childress; epidermal cyst and hydrocele as well as multiple tiny calcifications and nodules of the testes concerning for probable heart failure; sepsis secondary to right leg cellulitis; and and with radiographic findings of mild congestive heart failure; and nonspecific scrotal changes. Probable acute heart failure In EMR is a previous diagnosis of ischemic cardiomyopathy. Stress Echocardiogram on 06/19/2018 showed an ejection fraction of 65%. Discussed emergency department doctor will give Lasix 40 mg IV push; BNP and E KG. Place on telemetry monitoring Weight on admission to the floor; and then daily Strict I&O's CXR independently reviewed confirms vascular congestion and cardiomegaly Emergency department labs reviewed elevated creatinine above baseline probable cardiorenal syndrome. Give Lasix 40 mg IV push at the emergency department. We will give another dose of Lasix 40 mg IV push in a.m; and 40 mEq of potassium chloride x1 in a.m. Trend BMP. Consider further diuresis if necessary. Echo ordered to evaluate LVEF and wall motion Trend blood pressure Leonides wrap to bilateral lower extremities Scrotal edema Etiology could be heart failure causing dependent edema. However, with microlithiasis; inability to rule out a seminoma; will get tumor markers of AFP; beta-hCG; LDH. Consider discussing the case with urology. Radiology had recommended MRI of the scrotum; not ordered at this time. Other important findings of the scrotum included right epididymal cyst and small left hydrocele as well as nodule in the left testes measuring 3 x 4 x 3 mm. Check albumin. Sepsis secondary to right leg cellulitis Lactic acid 1.7 On presentation his heart rate was 98-105.; Leukocytosis of 15.6 with actually trending down. Patient had aspiration of right pre-patella bursitis; received antibiotics and was discharged home on Keflex as above Blood cultures on 12/08/2018 showed no growth in 48 hours. Synovial fluid culture showed Staphylococcus aureus which was methicillin sensitive. We will continue Keflex. Trend CBC CORA On presentation his creatinine was 1.36. Baseline creatinine is around 0.95 BUN 34. In the last 3 days BUN has been 34<-35<-40 BUN/CR 25 which is more than 20. However, this is unlikely pre-renal since reportedly he was well hydrated with IVF on recent admission on 12/08/2018 to 12/10/2018. Receive Lasix in the emergency department. We will continue Lasix for now. Trend BMP. Avoid nephrotoxic's. Diabetes mellitus On presentation his blood glucose was not within goal Home basal insulin continued Metformin held since it is too early in his admission Check accu-cheks QACHS and give correction scale insulin. Hypertension On presentation his blood pressure was not within goal Amlodipine; hydrochlorothiazide; and metoprolol continued. Lasix as above. Trend blood pressure and adjust blood pressure medications. GERD Pepcid continued CAD status post stent Aspirin and metoprolol continued Lipitor continued DVT Prophylaxis Subcutaneous Lovenox Code Visit Inpatient E&M: 70701 Init Hosp L3
--- NOTE | 2018-12-11 21:21 | EKG12_ITS ---
Test Reason : Blood Pressure : / mmHG Vent. Rate : 102 BPM Atrial Rate : 102 BPM P-R Int : 160 ms QRS Dur : 100 ms QT Int : 372 ms P-R-T Axes : 042 056 042 degrees QTc Int : 484 ms Sinus tachycardia Otherwise normal ECG Confirmed by SHAMIKA DAI ([id number]), editor greeting card [employer]EX PONCE ([id number]) on 12/16/2018 2:42:28 PM Referred By: Per Feliciano Confirmed By:SHAMIKA DAI
[2018-12-11] MEDS: Furosemide 40 MG/4 ML Vial IV (21:30)
[2018-12-11] MEDS: Insulin Lispro 100 UNIT/ML INSULN.PEN SC (23:39)
[2018-12-11] MEDS: Atorvastatin Calcium 80 MG Tablet PO (23:40)
[2018-12-11] MEDS: Cephalexin 500 MG Capsule PO (23:40)
[2018-12-11] MEDS: oxyCODONE 5 MG Tablet PO (23:41)
[2018-12-12] VITALS (11 sets, daily range): BP systolic 154–160; BP diastolic 80–92; PULSE 100–117; RESP 16–20; TEMP 36.2–38; O2SAT 93–94
[2018-12-12 01:01] LABS: Bedside Glucose 314 mg/dL (70-110)
[2018-12-12] MEDS: Cephalexin 500 MG Capsule PO ×3 (05:36→22:33)
--- NOTE | 2018-12-12 05:55 | ECHOCS_ITS ---
Reason For Study: ABNL CXR, scrotal edema Procedure This was a 2D Doppler, Color Flow transthoracic echocardiogram. The study was technically difficult. Due to body habitus. Contrast injection was performed. Exam performed portable in patient room. Left Ventricle Moderate concentric left ventricular hypertrophy. The estimated ejection fraction is 60 %. Stage 1 diastolic dysfunction. Mid-anteroseptal : Mildly hypokinetic. Anterior [place] : Mildly hypokinetic. Right Ventricle Normal size and thickness. Normal systolic function. Atria Normal left atrium. Normal right atrium. Normal atrial septum. Mitral Valve The mitral valve is structurally normal. No prolapse or stenosis seen. Tricuspid Valve Normal tricuspid valve. Unable to estimate RV systolic pressure due to insufficient tricuspid regurgitant envelope. Aortic Valve Trisinus/trileaflet aortic valve. Mild focal aortic valve thickening. Pulmonic Valve The pulmonic valve is not well visualized. Great Vessels Normal aortic root. Normal arch. Normal inferior vena cava. Inferior vena cava collapse with sniff. Pericardium/Pleural No pericardial effusion. Medication Diluted definity 4.0ml given slow IV push to enhance endocardial definition. MMode/2D Measurements & Calculations LVIDd: 4.6 cm IVSd: 1.5 cm Ao root diam: 3.3 cm LVIDs: 3.0 cm LVPWd: 1.4 cm RVDd: 3.3 cm FS: 34.9 % LAV(MOD-bp): 51.9 ml LA A4 area: 17.8 cm2 LA dimension(2D): 3.6 cm LAV(MOD-bp) Indexed: 20.7 ml/m2 LAV(MOD-sp2): 51.0 ml LAV(MOD-sp4): 50.7 ml RA A4 area: 12.5 cm2 Time Measurements MV dec time: 0.16 sec Doppler Measurements & Calculations MV E max finesse: 85.3 cm/sec Lat Peak E' Finesse: 7.4 cm/sec Med Peak E' Finesse: 6.8 cm/sec MV A max finesse: 101.4 cm/sec E/E' lat: 11.6 E/E' med: 12.5 MV E/A: 0.84 Ao V2 max: 111.4 cm/sec PA V2 max: 103.6 cm/sec Ao max P.0 mmHg Interpretation Summary Moderate concentric left ventricular hypertrophy. The estimated ejection fraction is 60 %. Stage 1 diastolic dysfunction. Unable to estimate RV systolic pressure due to insufficient tricuspid regurgitant envelope. The study was technically difficult. There is no comparison study available. Contrast injection was performed. Ordering Physician: Per Feliciano Referring Physician: Joseph Ricks Performed By: Mariam Schwartz, KAMINI, RVT
[2018-12-12 05:57] LABS: Hemoglobin 11.3 g/dL (13.0-16.5); Mean Corp Hgb Conc 32.3 g/dL (32-36); Mean Corpuscular Hgb 27.8 pg (27.0-32.0); Mean Corpuscular Volume 86.2 fL (80-94); Mean Platelet Vol. 10.3 fl (6.2-12.0); Platelet Count 271 K/mm3 (150-450); RBC Distribution Width CV 13.2 % (11.6-14.6); RBC Distribution Width SD 41.9 fl (35.1-43.9); Red Blood Count 4.06 M/mm3 (4.6-6.2); White Blood Count 15.5 K/mm3 (4.4-11.0)
[2018-12-12 06:19] LABS: Albumin, Serum 1.6 g/dL (3.2-5.0); Anion Gap 9 (5-15); BUN 36 mg/dL (7-18); BUN/Creat Ratio 27.5 RATIO (10-20); Calcium,Total 8.1 mg/dL (8.5-10.1); Chloride 102 mmol/L (98-107); Creatinine, Serum 1.31 mg/dL (0.70-1.30); EST Glomerular Filtration Rate 61 mL/min (>60); Est Glom Filt Rate - Afr Amer 74 mL/min (>60); Estimated Creatinine Clearance 71.85 ml/min; Glucose 264 mg/dL (74-106); Potassium 3.3 mmol/L (3.5-5.1); Sodium Level 139 mmol/L (136-145)
[2018-12-12] MEDS: Insulin Lispro 100 UNIT/ML INSULN.PEN SC ×4 (06:33→22:49)
[2018-12-12 06:41] LABS: Bedside Glucose 256 mg/dL (70-110)
[2018-12-12] MEDS: Glucerna Shake 120 ML LIQUID 60 ML PO (09:43)
[2018-12-12] MEDS: Magnesium Oxide 400 MG Tablet PO ×2 (09:50→09:51)
[2018-12-12] MEDS: amLODIPine 10 MG Tablet PO (09:50)
[2018-12-12] MEDS: Metoprolol(XL)Succ 25 MG Tablet PO (09:51)
[2018-12-12] MEDS: Aspirin 81 MG TAB.CHEW PO (09:51)
[2018-12-12] MEDS: hydroCHLOROthiazide 25 MG Tablet PO (09:51)
[2018-12-12] MEDS: Famotidine 20 MG Tablet PO (09:51)
[2018-12-12] MEDS: Enoxaparin 40 MG/0.4 ML Syringe SC (09:52)
[2018-12-12] MEDS: Furosemide 40 MG/4 ML Vial IV ×2 (09:59→17:25)
--- NOTE | 2018-12-12 10:34 | NURSING ---
wound photo: right lower leg/knee
--- NOTE | 2018-12-12 10:45 | CASEMGMT ---
Readmission chart review: Pt initially admitted 12/08-12/10/18 for RLE cellulitis and was also found to have CORA and uncontolled blood sugars. Pt had bedside bursa aspiration and wound/aspirate cultures grew MSSA. Pt was given diabetic education while here and started on a high dose insulin. 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 Pt was scheduled to have f/u appt's with Dr. Ricks and Dr. Rowe on 12/13/18. Pt had c/o some increasing scrotal swelling at time of call and was advised to call PCP in regards to same. Pt returned to [facility] ED on 12/11/18 at 1840 for c/o right leg swelling/pain and testicular swelling/pain. Pt's room air sat was 92% and pt was tachycardic at that time and has remained slightly tachycardic ranging from 100-107bpm. Pt's WBC was still elevated at 15.6 upon arrival back to ED but is down from the 16.2 on 12/10/18. Pt's BNP at this time is 358.00 and CXR shows mild congestive heart failure. Pt was given Lasix IV push x2 and will have strict I&O's. CM to monitor PT/OT and for any further discharge planning/needs. SStnancy GARCIA CM
[2018-12-12 11:40] LABS: M R Staph aureus DNA By PCR Negative (Negative); Probe Check PASS; Specimen Processing Control PASS; Staph aureus DNA By PCR POSITIVE (Negative)
[2018-12-12 12:21] LABS: Bedside Glucose 298 mg/dL (70-110)
[2018-12-12 12:44] LABS: Pathologist Review Reviewed
--- NOTE | 2018-12-12 16:32 | PCM.PN.HOSP ---
Patient Problems: Active and Suspected Problems (Last Reviewed 12/11/18 @ 23:06 by Per Feliciano MD) Heart failure (Acute) Scrotal edema (Acute) Subjective: Patient was seen and examined. Recently discharged with right leg infected bursitis. Patient admitted with generalized edema including scrotal edema Denied any chest pain or dizziness or shortness of breath. Not on oxygen Objective: Physical Exam General: Alert, Oriented x3, Cooperative HEENT: Atraumatic, PERRLA, EOMI, Normocephalic Neck: Supple, Trachea Midline Lungs: Clear to auscultation, Normal air movement Cardiovascular: No murmurs, Tachycardic Abdomen: Bowel Sounds Present, Soft, Non Tender Extremities: Capillary Refill Less than 3 Seconds, Edema - Bilateral pitting lower extremity edema; right worse than left. Skin: - - Redness of right leg; unroofing of skin around lateral right knee. Edematous scrotum. Musculoskeletal: Tenderness - Right leg Neurological: Cranial nerves II-XII grossly intact Psych/Mental Status: Normal Affect, Appropriate Vitals/I&O's: Vital Signs Temp Pulse Resp BP Pulse Ox 97.1 F L 101 H 16 154/81 H 93 12/12/18 15:45 12/12/18 15:45 12/12/18 15:45 12/12/18 15:45 12/12/18 15:45 Oxygen Flow Rate (L/min) 2 Oxygen Delivery Method Room Air Weight: 136.6 kg Body Mass Index (BMI) 42.0 Intake and Output for Last 24 Hours 12/10/18 12/11/18 12/12/18 23:59 23:59 23:59 Intake Total 60 / 60 540 / 540 Output Total 475 / 475 Balance 60 / 60 65 / 65 Microbiology Past 72 Hours 12/12/18 09:10 Wound - Knee Gram Stain - Final Laboratory Results 12/11/18 19:15: WBC 15.6 H, RBC 4.04 L, Hgb 11.3 L, Hct 34.8 L, MCV 86.1, MCH 28.0, MCHC 32.5, RDW Std Deviation 42.1, RDW Coeff of Rajendra 13.4, Plt Count 253, MPV 10.0, Neut % (Auto) Not Reportable, Absolute Neuts (auto) 12.8 H, Absolute Lymphs (auto) 0.78 L, Total Counted 100, Neutrophils % (Manual) 80 H, Band Neutrophils % 2, Lymphocytes % (Manual) 5 L, Monocytes % (Manual) 9, Eosinophils % (Manual) 1, Metamyelocytes % 2 H, Myelocytes % 1 H, Nucleated RBCs/100 WBC 1, Differential Comment SCANNED, Diff Path Review Reviewed, Platelet Estimate ADEQUATE, Polychromasia RARE 12/11/18 19:15: Sodium 137, Potassium 3.9, Chloride 101, Carbon Dioxide 29.0, Anion Gap 7, BUN 34 H, Creatinine 1.36 H, Estim Creat Clear Calc 69.21, Est GFR (MDRD) Af Amer 71, Est GFR (MDRD) Non-Af 59 L, BUN/Creatinine Ratio 25.0 H, Glucose 306 H, Calcium 8.3 L 12/11/18 19:15: Lactic Acid 1.7 12/11/18 19:15: B-Natriuretic Peptide 370.0 H 12/11/18 20:03: Urine Color Yellow, Urine Clarity Clear, Urine pH 5.0, Ur Specific [place] 1.015, Urine Protein 30 H, Urine Glucose (UA) 1000 H, Urine Ketones Negative, Urine Occult Blood 25 H, Urine Nitrite Negative, Urine Bilirubin Negative, Urine Urobilinogen 4 H, Ur Leukocyte Esterase Negative, Urine RBC 0 SEEN, Urine WBC 0-5 SEEN, Ur Squamous Epith Cells 0 SEEN, Urine Bacteria RARE, Urine Mucus 0 SEEN 12/11/18 22:08: HCG Beta Subunit Pending 12/11/18 23:36: POC Glucose 314 H 12/12/18 05:30: Sodium 139, Potassium 3.3 L, Chloride 102, Carbon Dioxide 28.0, Anion Gap 9, BUN 36 H, Creatinine 1.31 H, Estim Creat Clear Calc 71.85, Est GFR (MDRD) Af Amer 74, Est GFR (MDRD) Non-Af 61, BUN/Creatinine Ratio 27.5 H, Glucose 264 H, Calcium 8.1 L, Albumin 1.6 L 12/12/18 05:30: WBC 15.5 H, RBC 4.06 L, Hgb 11.3 L, Hct 35.0 L, MCV 86.2, MCH 27.8, MCHC 32.3, RDW Std Deviation 41.9, RDW Coeff of Rajendra 13.2, Plt Count 271, MPV 10.3 12/12/18 06:31: POC Glucose 256 H 12/12/18 09:10: S.aureus Protein A PCR POSITIVE H, MRSA (PCR) Negative 12/12/18 11:45: POC Glucose 298 H Current Medications Acetaminophen (Tylenol) 650 mg PO Q6H PRN PRN PRN Reason: Mild pain 1-3/Temp > 100.7 F Amlodipine Besylate (Norvasc) 10 mg PO DAILY [facility] Last Admin: 12/12/18 09:50 Dose: 10 mg Documented by: Aspirin (Aspirin, Baby) 81 mg PO DAILY@0800 [facility] Last Admin: 12/12/18 09:51 Dose: 81 mg Documented by: Atorvastatin Calcium (Lipitor) 80 mg PO QHS [facility] Last Admin: 12/11/18 23:40 Dose: 80 mg Documented by: Cephalexin (Keflex) 500 mg PO Q8 [facility] [place] Last Admin: 12/12/18 14:38 Dose: 500 mg Documented by: Dextrose (D50w Syringe) 0 gm IV X1 PRN; Protocol PRN Reason: Hypoglycemia Enoxaparin Sodium (Lovenox) 40 mg SC DAILY@1000 [facility] [place] Last Admin: 12/12/18 09:52 Dose: 40 mg Documented by: Famotidine (Pepcid) 20 mg PO DAILY [facility] Last Admin: 12/12/18 09:51 Dose: 20 mg Documented by: Furosemide (Lasix) 40 mg IV BID@1000,1800 [facility] Glucagon () 1 mg IM .X1 PRN PRN Reason: Hypoglycemia Hydrochlorothiazide (Hctz) 25 mg PO DAILY [facility] Last Admin: 12/12/18 09:51 Dose: 25 mg Documented by: Sodium Chloride () 250 mls @ 15 mls/hr IV .[id number] PRN PRN Reason: SALINE FLUSH Insulin Glargine (Lantus (Bkc)) 30 units SC BREAKFAST [facility] Last Admin: 12/12/18 09:52 Dose: 30 units Documented by: Insulin Glargine (Lantus (Bkc)) 30 units SC DINNER [facility] [place] Last Admin: 12/11/18 23:42 Dose: 30 u Documented by: Insulin Human Lispro (Humalog Kwikpen (Bkc)) 0 unit SC ACHS [facility]; Protocol Last Admin: 12/12/18 11:50 Dose: 6 u Documented by: Magnesium Oxide (Mag-Ox 400) 400 mg PO DAILY [facility] Last Admin: 12/12/18 09:51 Dose: 400 mg Documented by: Melatonin (Melatonin) 3 mg PO QHS PRN PRN PRN Reason: INSOMNIA Metoprolol Succinate (Toprol Xl (Beta Brittany)) 25 mg PO DAILY [facility] [place] Last Admin: 12/12/18 09:51 Dose: 25 mg Documented by: Morphine Sulfate () 2 mg IV Q3H PRN PRN PRN Reason: Severe Pain (7-10/10) Ondansetron HCl (Zofran) 4 mg IV Q8H PRN PRN PRN Reason: NAUSEA/VOMITING Oxycodone HCl (Oxyir) 5 mg PO Q4H PRN PRN PRN Reason: Moderate Pain (4-6/10) Last Admin: 12/11/18 23:41 Dose: 5 mg Documented by: Sodium Chloride () 10 - 40 ml IV UD PRN PRN Reason: SALINE FLUSH Medical Necessity - Tobacco Use Smoking Status: Never smoker Assessment/Plan All Active Problems (Last Reviewed 12/11/18 @ 23:06 by Per Feliciano MD) Heart failure (Acute) Scrotal edema (Acute) Bursitis (Resolved) 48-year-old male with past medical history of morbid obesity, hypertension, hyperlipidemia, CAD status post stent who was recently admitted and discharged with sepsis secondary to right lower extremity staph aureus cellulitis and prepatellar bursitis. He underwent aspiration of the breast side days. Patient was discharged on p.o. Keflex. He comes back with generalized edema. 1. Generalized edema likely secondary to acute hypoalbuminemia, admitting albumin is 1.6 Less likely from acute CHF -2D echo shows stage I diastolic dysfunction, EF 60% Started on IV Lasix 40mg BID, will continue Dietitian consulted Continue with low-salt diet, daily weights, MEME-wraps to lower extremities, strict I's and O's 2. Sepsis secondary to right leg/knee cellulitis with prepatellar bursitis, continue on Keflex 3. Hypokalemia, replace, recheck in a.m. 4. CORA, prerenal, will continue to monitor 5. Type II DM, uncontrolled, continue with home insulin, blood glucose checks as well as insulin sliding scale 6. Hypertension, controlled, will stop home amlodipine on account of persistent leg edema Increase home metoprolol XL to 50 mg p.o. daily, continue to monitor vital 7. DVT PPx- Lovenox SC Code Visit Inpatient E&M: 11232 Subs Hosp L2
[2018-12-12 16:45] LABS: Bedside Glucose 287 mg/dL (70-110)
[2018-12-12] MEDS: 0.9% NaCl Peripheral Flush Adult/Peds IV (17:25)
[2018-12-12] MEDS: oxyCODONE 5 MG Tablet PO (19:43)
[2018-12-12] MEDS: Atorvastatin Calcium 80 MG Tablet PO (22:33)
[2018-12-12 23:00] LABS: Bedside Glucose 250 mg/dL (70-110)
[2018-12-13 03:00] VITALS: PULSE 107
[2018-12-13 03:44] VITALS: BP 158/95; PULSE 111; RESP 20; TEMP 37.6; O2SAT 94
[2018-12-13] MEDS: Cephalexin 500 MG Capsule PO (05:23)
[2018-12-13] MEDS: Insulin Lispro 100 UNIT/ML INSULN.PEN SC (06:49)
[2018-12-13 07:05] LABS: Bedside Glucose 150 mg/dL (70-110)
[2018-12-13 07:15] VITALS: O2SAT 94
[2018-12-13 07:32] VITALS: PULSE 103
[2018-12-13] MEDS: Aspirin 81 MG TAB.CHEW PO (07:50)
[2018-12-13 08:39] LABS: Hematocrit 34.4 % (40-54); Hemoglobin 11.5 g/dL (13.0-16.5); Mean Corp Hgb Conc 33.4 g/dL (32-36); Mean Corpuscular Hgb 28.5 pg (27.0-32.0); Mean Corpuscular Volume 85.1 fL (80-94); Mean Platelet Vol. 10.1 fl (6.2-12.0); POSITIVE COUNT YES; POSITIVE DIFFERENTIAL YES; POSITIVE MORPHOLOGY YES; Platelet Count 273 K/mm3 (150-450); RBC Distribution Width CV 13.2 % (11.6-14.6); RBC Distribution Width SD 40.9 fl (35.1-43.9); Red Blood Count 4.04 M/mm3 (4.6-6.2); White Blood Count 16.7 K/mm3 (4.4-11.0)
[2018-12-13 08:46] LABS: Differential Indicated MANUAL DIFF
[2018-12-13 09:16] LABS: Anion Gap 4 (5-15); BUN 39 mg/dL (7-18); BUN/Creat Ratio 30.2 RATIO (10-20); Calcium,Total 8.5 mg/dL (8.5-10.1); Chloride 103 mmol/L (98-107); Creatinine, Serum 1.29 mg/dL (0.70-1.30); EST Glomerular Filtration Rate 63 mL/min (>60); Est Glom Filt Rate - Afr Amer 76 mL/min (>60); Estimated Creatinine Clearance 72.97 ml/min; Glucose 137 mg/dL (74-106); Potassium 3.2 mmol/L (3.5-5.1); Sodium Level 138 mmol/L (136-145)
[2018-12-13 09:40] VITALS: BP 151/91; PULSE 90; RESP 16; TEMP 37; O2SAT 93
[2018-12-13 09:40] LABS: Eosinophil 1 % (0-5); Lymphocyte 15 % (19-41); Monocyte 7 % (0-10); Myelocyte 1 (0-0); Neutrophil-Band 1 % (0-5); Neutrophil-Segmented 75 % (47-70); Total Cells Counted 100 (MANUAL DIFF)
[2018-12-13 09:41] LABS: Platelet Estimate ADEQUATE (ADEQ); Red Cell Morphology NORM C+C NORMAL (NORM C&C)
[2018-12-13 09:42] LABS: Absolute Neutrophil Count 12.7 X10^3/uL (2.0-7.7); Neutrophil # 12.72 X10^3/uL (2.7-7.7)
[2018-12-13] MEDS: Furosemide 40 MG/4 ML Vial IV (09:48)
[2018-12-13] MEDS: Famotidine 20 MG Tablet PO (09:48)
[2018-12-13] MEDS: Enoxaparin 40 MG/0.4 ML Syringe SC (09:48)
[2018-12-13 09:49] VITALS: PULSE 98
[2018-12-13] MEDS: Metoprolol(XL)Succ 50 MG Tablet PO (09:49)
--- NOTE | 2018-12-13 10:44 | CASEMGMT ---
Pt dx'd with new acute HF. This RN CM to room to discuss CCN with pt/ for further education and wgt/diet control and pt is agreeable at this time. Referral to [facility] at [facility] and order placed for CCN at this time. Chavez is aware of new HF dx and pt's poorly controlled DM per nutrition notes with recommendation for DM clinic f/u, voices understanding. Pt/ voices no further concerns/needs at this time. Pt to be discharged home with CCN referral. Juan Carlos GARCIA CM
--- NOTE | 2018-12-13 10:53 | DCINST_ITS ---
- Discharge Diagnoses Current Active Problems: Current Active and Chronic Problems (Last Reviewed 12/11/18 @ 23:06 by Per Feliciano MD) Heart failure (Acute) Scrotal edema (Acute) Reason(s) for Visit for Discharge Instructions: Generalised edema You will use the following diet at home:: Calorie/Carbohydrate Controlled (specify 1200, 1400, etc), Cardiac Your food should be the consistency of: Regular Your liquids should be the consistency of: Regular/Thin Discharge Activity: Return to Normal Activity Additional Instructions: Continue to take all your medications. Weigh yourself everyday. Limit your total fluid intake to 1500mls. Continue to use incentive spirometer. 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 Continue to follow a calorie controlled diet. Continue to monitor your blood sugars. You should complete your antibiotics. Last day is 12/20/18. Allergies/Adverse Reactions: Allergies lisinopril Adverse Reaction (Intermediate, Verified 12/11/18 18:40) Cough losartan Adverse Reaction (Intermediate, Verified 12/11/18 18:40) cough Medications to take at Discharge Aspirin [Aspirin, Baby] 81 mg PO DAILY@0800 09/28/14 Famotidine [Pepcid] 20 mg PO DAILY 09/28/14 Mag-Ox 400 1 tab PO DAILY 09/28/14 Metoprolol(XL)Succ [Toprol Xl (Beta Brittany)] 25 mg PO DAILY 09/28/14 metformin 1,000 mg tablet 1,000 mg PO BID tab 04/20/17 nitroglycerin 0.4 mg sublingual tablet 0.4 mg SUBLINGUAL Q5-15M PRN 04/20/17 atorvastatin 80 mg tablet 80 mg PO QHS #90 tab 06/14/18 Cephalexin [Keflex] 500 mg PO Q8 #30 cap 12/10/18 Insulin Glargine [Lantus SoloStar Pen] 30 units SUBCUT 1100,2200 #1 box 12/10/18 Pen Needle, Diabetic [Insulin Pen Needle] 1 [facility] #120 dis.needle 12/10/18 Furosemide [Lasix] 40 mg PO BID 30 Days #60 tab 12/13/18 Metoprolol(XL)Succ [Toprol Xl (Beta Brittany)] 50 mg PO DAILY 30 Days #30 tab 12/13/18 The following prescriptions were given: Furosemide [Lasix] 40 mg PO BID 30 Days #60 tab Transmission Status: Pending to [id number] Metoprolol(XL)Succ [Toprol Xl (Beta Brittany)] 50 mg PO DAILY 30 Days #30 tab Transmission Status: [facility]ending to [id number] Primary Care Physician: Joseph Ricks MD [Primary Care Provider] - Please follow up with your Primary Care Physician in: within 1-2 weeks Test Results: Test results from this visit will be discussed in further detail at your follow- up appointment, if applicable. Please Follow Up With: Everett Franks MD When: within 2 weeks Proposed Discharge Date: 12/13/18
[2018-12-13 12:31] LABS: HCG BETA-SUBUNIT QUANT. < 1 mIU/mL (0-3)
--- NOTE | 2018-12-13 14:12 | PCM.DC.SUM ---
Discharge Date and Diagnosis Date of Admission: 12/11/18 Date of Discharge: 12/13/18 - Primary Discharge Diagnosis Probable acute diastolic CHF Hypoalbuminemia Hypokalemia CORA, prerenal Hypokalemia - Secondary Discharge Diagnosis Chronic Problems (Last Reviewed 12/11/18 @ 23:06 by Per Feliciano MD) Diabetes mellitus, type II (Chronic) History of non-ST elevation myocardial infarction (NSTEMI) (Chronic) Ischemic cardiomyopathy (Chronic) Stented coronary artery (Chronic) PTCA and TREY to LAD 06/23/13 @ [facility]; Promus stent to DX 07/17/13 @ [facility] History of left heart catheterization (Chronic) 06/23/2013 @ [facility] Atherosclerotic heart disease of [place] coronary artery without angina pectoris (Chronic) PTCA and TREY to LAD 06/23/13; Promus stent to DX 07/17/13 Obesity (Chronic) Hyperlipidemia (Chronic) Hypertension (Chronic) Hospital Course and Treatment Imaging Results: Clinical Impression(s) from Imaging Studies Testicular Ultrasound 12/11/18 19:01 IMPRESSION: Nonspecific edematous changes of the scrotal childress No evidence for testicular torsion or inflammatory disease Nonspecific bilateral edematous scrotal childress Tiny right epididymal cyst and small left hydrocele. Multiple tiny calcifications in the right testis and solitary calcification on the left.. There is a very small anechoic nodule in the left testis measuring 3 x 4 x 3 mm. This is of uncertain etiology or clinical significance however in view of the presence of microlithiasis possibility of seminoma cannot be entirely excluded. Recommend clinical correlation and follow-up. MRI of the scrotum would be helpful for further evaluation if indicated Electronically Signed: Jimy Kelly MD at 20:16 EDT , Service support , Chest X-Ray 12/11/18 19:04 IMPRESSION: Mild congestive failure.. Electronically Signed: Jimy Kelly MD at 19:19 EDT , Service support , Consultations 12/12/18 00:32 Consult: Onc/Wound/rebar bender Routine Comment: Reason for Consult:: wound right leg Operations: None Procedures: None Summary of Care Provided: 48-year-old male with past medical history of morbid obesity, hypertension, hyperlipidemia, CAD status post stent who was recently admitted and discharged with sepsis secondary to right lower extremity staph aureus cellulitis and prepatellar bursitis. He underwent aspiration of the knee at the bedside by orthopedics. Patient was discharged on p.o. Keflex. He was readmitted on 12/11/18 with generalized edema. His admitting albumin was 1.6. He was started on IV Lasix and had Leonides wraps to his lower extremity. Patient had 2D echo that showed stage I diastolic dysfunction, EF of 60%. He was maintained on IV Lasix with good diuresis. He was advised to continue on a low-salt diet, daily weights, Leonides wrap to extremity as well as eat a high-protein diet. He had hypokalemia which was replaced. He was also admitted with acute kidney injury likely secondary to cardiorenal from the edema, which improved with diuresis. Patient blood sugars were improved was in the hospital. Changes were made to his medications. His amlodipine was discontinued on account of persistent leg edema. He was discharged on metoprolol XL 50 mg daily. - Physical Exam Vital Signs Temp Pulse Resp BP Pulse Ox 98.6 F 98 16 151/91 H 93 12/13/18 09:40 12/13/18 09:49 12/13/18 09:40 12/13/18 09:40 12/13/18 09:40 Oxygen Flow Rate (L/min) 2 Oxygen Delivery Method Room Air Weight: 135.2 kg Body Mass Index (BMI) 42.0 Intake and Output for Last 24 Hours 12/11/18 12/12/18 12/13/18 23:59 23:59 23:59 Intake Total 60 / 60 1340 / 1340 250 / 250 Output Total 1600 / 1600 Balance 60 / 60 -260 / -260 250 / 250 Microbiology Past 72 Hours 12/12/18 09:10 Gram Stain - Final Wound - Knee Wound Culture - Preliminary Staphylococcus aureus Laboratory Tests Past 24 Hrs 12/11/18 12/13/18 12/13/18 22:08 08:23 08:23 WBC 16.7 H RBC 4.04 L Hgb 11.5 L Hct 34.4 L MCV 85.1 MCH 28.5 MCHC 33.4 RDW Std Deviation 40.9 RDW Coeff of Rajendra 13.2 Plt Count 273 MPV 10.1 Neut % (Auto) Not Reportable Absolute Neuts (auto) 12.7 H Absolute Lymphs (auto) 2.50 Total Counted 100 Neutrophils % (Manual) 75 H Band Neutrophils % 1 Lymphocytes % (Manual) 15 L Monocytes % (Manual) 7 Eosinophils % (Manual) 1 Myelocytes % 1 H Diff Path Review May foll Platelet Estimate ADEQUATE RBC Morphology NORM C+C Sodium 138 Potassium 3.2 L Chloride 103 Carbon Dioxide 31.0 Anion Gap 4 L BUN 39 H Creatinine 1.29 Estim Creat Clear Calc 72.97 Est GFR (MDRD) Af Amer 76 Est GFR (MDRD) Non-Af 63 BUN/Creatinine Ratio 30.2 H Glucose 137 H Calcium 8.5 HCG Beta Subunit < 1 POC Glucose 12/13/18 12/12/18 12/12/18 06:42 22:47 16:38 POC Glucose 150 H 250 H 287 H Discharge Activity: Return to Normal Activity Home Medications: Medications to take at Discharge Aspirin [Aspirin, Baby] 81 mg PO DAILY@0800 09/28/14 Famotidine [Pepcid] 20 mg PO DAILY 09/28/14 Mag-Ox 400 1 tab PO DAILY 09/28/14 Metoprolol(XL)Succ [Toprol Xl (Beta Brittany)] 25 mg PO DAILY 09/28/14 metformin 1,000 mg tablet 1,000 mg PO BID tab 04/20/17 nitroglycerin 0.4 mg sublingual tablet 0.4 mg SUBLINGUAL Q5-15M PRN 04/20/17 atorvastatin 80 mg tablet 80 mg PO QHS #90 tab 06/14/18 Cephalexin [Keflex] 500 mg PO Q8 #30 cap 12/10/18 Insulin Glargine [Lantus SoloStar Pen] 30 units SUBCUT 1100,2200 #1 box 12/10/18 Pen Needle, Diabetic [Insulin Pen Needle] 1 ea ACHS #120 dis.needle 12/10/18 Furosemide [Lasix] 40 mg PO BID 30 Days #60 tab 12/13/18 Metoprolol(XL)Succ [Toprol Xl (Beta Brittany)] 50 mg PO DAILY 30 Days #30 tab 12/13/18 Following Prescrptions Were Given to Patient: Furosemide [Lasix] 40 mg PO BID 30 Days #60 tab Transmission Status: Received by [facility]/pharmacy #[id number] Metoprolol(XL)Succ [Toprol Xl (Beta Brittany)] 50 mg PO DAILY 30 Days #30 tab Transmission Status: [id number] Primary Care Physician: Joseph Ricks MD [Primary Care Provider] - Please follow up with your Primary Care Physician in: within 1-2 weeks Please Follow Up With: Everett Franks MD When: within 2 weeks Please Follow Up With: Joseph Ricks MD Please Follow Up With: Flavio Rowe MD Medical Necessity - Tobacco Use Smoking Status: Never smoker Meaningful Use Info Meaningful Use Diagnoses (Choose all that apply): None applicable
[2018-12-16 13:23] LABS: Pathologist Review Reviewed
--- NOTE | 2018-12-16 13:55 | CASEMGMT ---
[facility] PHONE CALL DC DATE: 12/13/18 DC Disposition: Home with CCN Diagnosis on Discharge: CHF LACE/STRATA: 02/09 Attempted to call pt @ home. No answer and no machine with name identifier. Pt's called back to hospital. She states pt is doing well, continues to feel tired. She is contacting Dr. Ricks's office today for earlier appt. Office is to return call. No questions re: prescriptions, instructions. Pt is monitoring weights and blood sugars. No care improvement suggestions given. Hector WELLSN RN ACM
== END 2018-12-13 11:49 | disposition home or self-care (01) | DRG 291 ==
LOC: ED 19:06 → PCU 22:17
PROVIDERS: Admitting Provider Hospitalist; Emergency Provider Emergency Medicine; Family Provider Family Medicine; PCP Family Medicine; Referring Provider Hospitalist; Visit Provider Internal Medicine
DX: I11.0 Hypertensive heart disease with heart failure (principal); I50.31 Acute diastolic (congestive) heart failure; A41.9 Sepsis, unspecified organism; N17.9 Acute kidney failure, unspecified; Z68.41 Body mass index [BMI] 40.0-44.9, adult; L03.115 Cellulitis of right lower limb; I25.10 Atherosclerotic heart disease of native coronary artery without angina pectoris; E66.01 Morbid (severe) obesity due to excess calories; E87.6 Hypokalemia; E11.65 Type 2 diabetes mellitus with hyperglycemia; E88.09 Other disorders of plasma-protein metabolism, not elsewhere classified; I25.5 Ischemic cardiomyopathy; E78.5 Hyperlipidemia, unspecified; Z95.5 Presence of coronary angioplasty implant and graft; I25.2 Old myocardial infarction; Z79.4 Long term (current) use of insulin
CPT/HCPCS: 36415; 71045; 76870; 80048; 81001; 82040; 82962; 83605; 83880; 84702; 85025; 85027; 87070; 87077; 87186; 87205; 87640; 93005; 93306; 93976; 97802; 99285; Q9957; A4216; C8929; J1940

== ENCOUNTER 2018-12-20 13:52 | Inpatient (IN) | payer OTHER, SELFPAY ==
[2018-12-20] VITALS (9 sets, daily range): BP systolic 158–183; BP diastolic 64–83; PULSE 99–105; RESP 18–20; TEMP 36.4–37; O2SAT 94–97; BMI 41.0; BMI 41.1
--- NOTE | 2018-12-20 14:08 | RAD_ITS ---
STUDY: X-RAY CHEST REASON FOR EXAM: Male, 48 years old. Fluid overload. TECHNIQUE: Single AP portable view of the chest. COMPARISON: Comparison is made with prior study dated December 11, 2018. FINDINGS: There is evidence of vascular congestion and mild degree of CHF with bibasilar atelectasis. Blunting of both costophrenic angles. Normal size heart. Normal mediastinum and paula. Normal visualized pulmonary arteries. Normal visualized aortic arch and descending thoracic aorta. Normal visualized thoracic spine. Normal visualized ribs, clavicles, and shoulders. There is no demonstrated abnormality of the visualized soft tissue structures of the upper abdomen. RAD/Chest 1 View (Portable) IMPRESSION: Mild degree of CHF. Blunting of both costophrenic angles. Electronically Signed: Dario Ponce, at 14:36 EDT , Service support ,
--- NOTE | 2018-12-20 14:08 | EKG12_ITS ---
Test Reason : Blood Pressure : / mmHG Vent. Rate : 097 BPM Atrial Rate : 097 BPM P-R Int : 170 ms QRS Dur : 100 ms QT Int : 362 ms P-R-T Axes : 058 070 088 degrees QTc Int : 459 ms Normal sinus rhythm Normal ECG Confirmed by BUD NUNEZ, GUILLERMO ([id number]), editor continuity and script ESTEPHANIA VELOZ ([id number]) on 12/24/2018 11:57:47 AM Referred By: Alonzo Aviles Confirmed By:SNEHAL FARRELL MD
--- NOTE | 2018-12-20 14:17 | ED.VISSUMM ---
- ER Visit Summary Date of Service: 12/20/18 Chief Complaint: Volume overload History of Present Illness: The patient is a 48 M who was recently admitted for a right leg infection. He was seen by orthopedics and he is currently on Keflex. He said the infection is getting better. He also has a history of coronary disease, NM. He had findings consistent with heart failure and is being treated with Lasix. Despite Lasix and fluid restriction, he has a lot of edema. He has a lot of abdominal swelling and groin swelling. He is having difficulty urinating. He saw his outbound sales specialist today and was referred to the ED for IV diuresis and accurate ins and outs monitoring. Physical Examination: Afebrile vital signs unremarkable except blood pressure 183/83 and heart rate 102. Patient has anasarca. Heart tachycardic but regular. Lungs diminished. Peripheral edema noted. Symmetric. Legs are nontender. Patient has a right lower extremity wound which is dressed. Test Results: EKG shows sinus rhythm at a rate of 97. Labs are pending. Chest x-ray pending. Emergency Department Course and Treatment: EKG, chest x-ray, labs ordered. Cruz catheter ordered. Bumex drip ordered. Patient was treated with his afternoon dose of Keflex. Hospitalist was contacted to admit for further care. Dr. Franks called prior to arrival and had advised the admission. Treatment Plan: As above Disposition: PCU Impression: 1. Anasarca This note was generated with [employer] dictation software. It may contain incorrect words, spelling, and punctuation that were not noted in review of the chart prior to signing ED Disposition - Plan for ED Patient: Referrals: Joseph Ricks MD [Primary Care Provider] -
[2018-12-20] MEDS: Cephalexin 250 MG Capsule 500 MG PO (14:26)
[2018-12-20 14:50] LABS: Absolute Neutrophil Count 10.7 X10^3/uL (2.0-7.7); Basophil# 0.06 X10^3/uL; Basophil% 0.5 % (0-1); Eosinophil# 0.08 X10^3/uL; Eosinophils% 0.6 % (0-5); Hematocrit 34.8 % (40-54); Hemoglobin 10.6 g/dL (13.0-16.5); Lymphocyte % 8.6 % (19-41); Mean Corp Hgb Conc 30.5 g/dL (32-36); Mean Corpuscular Hgb 27.3 pg (27.0-32.0); Mean Corpuscular Volume 89.7 fL (80-94); Mean Platelet Vol. 9.4 fl (6.2-12.0); Monocyte# 0.76 X10^3/uL; Monocyte% 5.9 % (0-10); NRBC Flagged by Analyzer 0 % (0-5); Neutrophil % 83.6 % (47-70); Platelet Count 453 K/mm3 (150-450); RBC Distribution Width CV 12.9 % (11.6-14.6); RBC Distribution Width SD 41.9 fl (35.1-43.9); Red Blood Count 3.88 M/mm3 (4.6-6.2); White Blood Count 12.8 K/mm3 (4.4-11.0)
--- NOTE | 2018-12-20 14:52 | PCM.HP.STD ---
Problem List (1) Scrotal edema Status: Acute (2) Bursitis Status: Resolved (3) Diabetes mellitus, type II Status: Chronic (4) History of non-ST elevation myocardial infarction (NSTEMI) Status: Chronic (5) Ischemic cardiomyopathy Status: Chronic (6) Stented coronary artery Status: Chronic Comment: PTCA and TREY to LAD 06/23/13 @ [place]; Promus stent to DX 07/17/13 @ [facility] [place] (7) History of left heart catheterization Status: Chronic Comment: 06/23/2013 @ [place] (8) Atherosclerotic heart disease of [place] coronary artery without angina pectoris Status: Chronic Comment: PTCA and TREY to LAD 06/23/13; Promus stent to DX 07/17/13 (9) Obesity Status: Chronic (10) Hyperlipidemia Status: Chronic (11) Hypertension Status: Chronic (12) Acute on chronic diastolic heart failure Status: Acute History of Present Illness Date of Admission: 12/20/18 Chief Complaint: Anasarca. The patient is a 48 year old M with history of multiple comorbidities including coronary artery disease status post 3 stents, ischemic cardiomyopathy was sent to ER from Dr. Franks's office for admission for fluid overload. Prior to this, patient was just discharged on 12/13 for acute diastolic heart failure with CORA, prerenal and hypokalemia after IV Lasix diuresis and on 12/10 after treatment for right lower extremity staph aureus cellulitis with prepatellar bursitis. Patient has history of coronary artery disease with heart cath on 06/22/2013 which showed occluded proximal LAD with [id number] collaterals and significant mid left circumflex coronary stenosis. He had 2 stents with thrombectomy of proximal and mid LAD in [facility] and one stent in mid left circumflex in July [address] Franks. This time, patient complained of about 25 pounds weight gain last 1 week along with dyspnea on exertion, orthopnea. Patient denies chest pressure or chest pain, proximal dyspnea. He has generalized swelling of lower extremity and scrotal edema and mild abdominal distention. EKG done in the ER shows normal sinus rhythm at 97 bpm. Chest x-ray done shows mild degree of CHF with blunting of both CP angles. Past Medical History Past Medical History (Chronic Problems): Chronic Problems (Last Reviewed 12/16/18 @ 18:13 by Meka Barraza) Diabetes mellitus, type II (Chronic) History of non-ST elevation myocardial infarction (NSTEMI) (Chronic) Ischemic cardiomyopathy (Chronic) Stented coronary artery (Chronic) PTCA and TREY to LAD 06/23/13 @ [place]; Promus stent to DX 07/17/13 @ [facility] [place] History of left heart catheterization (Chronic) 06/23/2013 @ [place] Atherosclerotic heart disease of [place] coronary artery without angina pectoris (Chronic) PTCA and TREY to LAD 06/23/13; Promus stent to DX 07/17/13 Obesity (Chronic) Hyperlipidemia (Chronic) Hypertension (Chronic) Medical History: Medical History (Last Reviewed 12/16/18 @ 18:13 by Meka Barraza) Acute diastolic (congestive) heart failure (Acute) I50.31 Scrotal edema (Acute) N50.89 Diabetes mellitus, type II (Chronic) E11.9 History of non-ST elevation myocardial infarction (NSTEMI) (Chronic) I25.2 Ischemic cardiomyopathy (Chronic) I25.5 Atherosclerotic heart disease of [place] coronary artery without angina pectoris (Chronic) I25.10 PTCA and TREY to LAD 06/23/13; Promus stent to DX 07/17/13 Obesity (Chronic) Hyperlipidemia (Chronic) Hypertension (Chronic) Allergies lisinopril Adverse Reaction (Intermediate, Verified 12/20/18 13:55) Cough losartan Adverse Reaction (Intermediate, Verified 12/20/18 13:55) cough Home Medications: Ambulatory Orders Medication Instructions Recorded Aspirin [Aspirin, Baby] 81 mg PO DAILY@0800 09/28/14 Famotidine [Pepcid] 20 mg PO DAILY 09/28/14 Mag-Ox 400 1 tab PO DAILY 09/28/14 metformin 1,000 mg tablet 1,000 mg PO BID tab 04/20/17 nitroglycerin 0.4 mg sublingual 0.4 mg SUBLINGUAL Q5-15M PRN 04/20/17 tablet metoprolol succinate ER 50 mg 50 mg PO DAILY tab 12/16/18 tablet,extended release 24 hr Atorvastatin Calcium 80 mg PO QHS 12/20/18 Cephalexin [Keflex] 500 mg PO Q8 12/20/18 Furosemide [Lasix] 40 mg PO BID 12/20/18 Insulin Glargine [Lantus SoloStar 30 units SUBCUT 1100,2200 12/20/18 Pen] Surgical History: Surgical History (Last Reviewed 12/16/18 @ 18:13 by Meka Barraza) Stented coronary artery (Chronic) Z95.5 PTCA and TREY to LAD 06/23/13 @ [place]; Promus stent to DX 07/17/13 @ [facility] [place] History of left heart catheterization (Chronic) Z98.890 06/23/2013 @ [place] Surgical History: - - Hernia repair, cardiac stents. Psychiatric History: No pertinent psych hx Smoking Status: Never smoker - *Family History Maternal Family History: Family History (Last Reviewed 12/16/18 @ 18:13 by Meka Barraza) Father Myocardial infarction CAD (coronary artery disease) Sudden cardiac Mother Sick sinus syndrome Sister Diabetes History Items: Heart Disease Paternal Family History: Family History (Last Reviewed 12/16/18 @ 18:13 by Meka Barraza) Father Myocardial infarction CAD (coronary artery disease) Sudden cardiac Mother Sick sinus syndrome Sister Diabetes History Items: Heart Disease, - - At the age of 45 Review of Systems Constitutional: Reports: Malaise, Fatigue HEENT: Denies: Head Aches, Sinus Congestion, Sinus Drainage Cardiovascular: Reports: Edema, Orthopnea. Denies: Chest Pain, Palpitations Respiratory: Reports: Cough - Patient has cough for about 1 to 2 weeks, mainly dry., Shortness of Breath, Shortness of breath upon exertion. Denies: Shortness of breath at rest, Sputum production Gastrointestinal: Denies: Abdominal Pain, Nausea, Vomiting Genitourinary: Reports: - - Scrotal edema. Denies: Dysuria, Frequency Musculoskeletal: Reports: Joint Pain - Right knee swollen. Denies: Joint Tenderness Skin: Denies: Rash, Wounds Neurological: Reports: Balance problems. Denies: Focal weakness, Numbness, Tingling Psychiatric: Denies: Anxiety, Depression, Homicidal Ideations, Suicidal Ideations Hematologic/ Lymphatic: Denies: Easy Bruising, Easy Bleeding VTE Information - Inpt Only VTE Present on Admission: No VTE Mechan Device Prophylaxis: None VTE Pharm Prophylaxis ordered?: Yes Patient Problems: Active and Suspected Problems (Last Reviewed 12/16/18 @ 18:13 by Meka Barraza) Acute on chronic diastolic heart failure (Acute) - Physical Exam General: Alert, Oriented x3, Cooperative HEENT: Atraumatic, PERRLA, EOMI, Normocephalic Neck: Supple, No JVD, Negative Carotid Bruits Lungs: Diminished - Air entry severely diminished in both lower half of lungs., Short of Breath Cardiovascular: Regular rate, Regular Rhythm, Normal S1, Normal S2, No murmurs Abdomen: Bowel Sounds Present, Soft, Non Tender, Distended - Mild distended possible ascites but difficult to exam secondary to morbid obesity and fat abdomen. Extremities: Capillary Refill Less than 3 Seconds, Edema Skin: Rash Present - Mild redness and swelling at right knee with recent history of cellulitis and prepatellar bursitis. Musculoskeletal: No Tenderness to Palpation of Joints or Extremities, Arthritic Changes Lymphatic: No Cervical, Supraclavicular, or Inguinal Adenopathy Neurological: Cranial nerves II-XII grossly intact, Deep Tendon Reflexes 2+/4 and Symmetrical, Neuro grossly intact Psych/Mental Status: Normal Affect, Appropriate Vital Signs Temp Pulse Resp BP Pulse Ox 97.6 F L 102 H 20 H 183/83 H 97 12/20/18 13:53 12/20/18 13:53 12/20/18 13:53 12/20/18 13:53 12/20/18 13:53 Oxygen Delivery Method Room Air Weight: 294 lb Body Mass Index (BMI) 41.0 Laboratory Tests Past 24 Hrs 12/20/18 12/20/18 12/20/18 14:35 14:35 14:35 WBC 12.8 H RBC 3.88 L Hgb 10.6 L Hct 34.8 L MCV 89.7 MCH 27.3 MCHC 30.5 L RDW Std Deviation 41.9 RDW Coeff of Rajendra 12.9 Plt Count 453 H MPV 9.4 Immature Gran % (Auto) 0.800 Neut % (Auto) 83.6 H Lymph % (Auto) 8.6 L [place] % (Auto) 5.9 Eos % (Auto) 0.6 Baso % (Auto) 0.5 Absolute Neuts (auto) 10.7 H Absolute Lymphs (auto) 1.10 Nucleated RBC % 0 Sodium Pending Potassium Pending Chloride Pending Carbon Dioxide Pending Anion Gap Pending BUN Pending Creatinine Pending Est GFR (MDRD) Af Amer Pending Est GFR (MDRD) Non-Af Pending BUN/Creatinine Ratio Pending Glucose Pending Calcium Pending Troponin I Pending B-Natriuretic Peptide Pending Assessment/Plan All Active Problems (Last Reviewed 12/16/18 @ 18:13 by Meka Barraza) Acute on chronic diastolic heart failure (Acute) Scrotal edema (Acute) Bursitis (Resolved) The patient is a 48 year old M with history of multiple comorbidities including coronary artery disease status post 3 stents, ischemic cardiomyopathy was sent to ER from Dr. Franks's office for admission for fluid overload. Prior to this, patient was just discharged on 12/13 for acute diastolic heart failure with CORA, prerenal and hypokalemia after IV Lasix diuresis and on 12/10 after treatment for right lower extremity staph aureus cellulitis with prepatellar bursitis. This time, patient complained of about 25 pounds weight gain last 1 week along with dyspnea on exertion, orthopnea. Patient denies chest pressure or chest pain, proximal dyspnea. He has generalized swelling of lower extremity and scrotal edema and mild abdominal distention. EKG done in the ER shows normal sinus rhythm at 97 bpm. Chest x-ray done shows mild degree of CHF with blunting of both CP angles. 1. Acute on chronic heart failure with preserved EF with right lower extremity edema, scrotal edema and possible ascites consistent with anasarca: Patient had echo recently on 12/12 and reported as EF 60% with stage I diastolic dysfunction. Mild anteroseptal anterior apex hypokinetic. Moderately concentric LVH. Normal RV size and systolic function. Normal right and left atria. Mitral valve normal. Normal tricuspid valve unable to quantify RVSP. Discussed with Dr. Franks seen in the office today. His recommendations reviewed. On IV Bumex drip 0.5 mg/h with aim of diuresis of 1 to 2 L/day for next few days. Leonides wrap bandage of lower extremities. Monitor electrolytes and kidney function. Fluid restriction 1500 mL. Cruz catheter if difficult or unable to put by nursing staff, will consult Dr. Vann. Continue beta-kane with holding parameters goal less than 60/min or if patient gets very short of breath. Dr. Miles will see on weekends 2. Coronary artery disease status post stent: Currently patient does not have any chest pain or pressure. Plan is to repeat heart cath in view of significant biventricular failure with anasarca after he achieved his dry weight. Continue his cardiac medications. 3. Recent right lower extremity cellulitis with right knee prepatellar bursitis: Patient was discharged on 10 days of Keflex on 12/10. Supposed to complete on 12/20 but will extend 2 more days as the right knee is still swollen and mildly tender. If needed can consult Dr. Rowe who has seen the patient on 12/19 in office. 3. Diabetes mellitus type 2: Is uncontrolled. Last A1c was 15.6% on 12/08 2018. Accu-Cheks before meals and at bedtime with sliding scale insulin. Titrate the dose of insulin as per [place]'s previous on long-acting insulin. 4. Recent acute kidney injury, prerenal, hypertension, morbid obesity: Patient BMI is 41 kg/m?. Blood pressure is high 183/83, heart rate 102. Recheck blood pressure while on IV Bumex drip after 2 hours. Hydralazine 10 mg IV every 4 hourly as needed for systolic blood pressure more than 180 mmHg. DVT prophylaxis: On Lovenox 40 mg subcu daily. Code Visit Inpatient E&M: 91748 Init Hosp L3
[2018-12-20 15:05] LABS: Anion Gap 4 (5-15); BUN 53 mg/dL (7-18); BUN/Creat Ratio 38.4 RATIO (10-20); Calcium,Total 8.6 mg/dL (8.5-10.1); Chloride 107 mmol/L (98-107); Creatinine, Serum 1.38 mg/dL (0.70-1.30); EST Glomerular Filtration Rate 58 mL/min (>60); Est Glom Filt Rate - Afr Amer 70 mL/min (>60); Estimated Creatinine Clearance 68.21 ml/min; Glucose 122 mg/dL (74-106); Potassium 4.3 mmol/L (3.5-5.1); Sodium Level 143 mmol/L (136-145)
[2018-12-20 15:48] LABS: BNP,B-Type NATRIURETIC PEPTIDE 307.7 pg/mL (0-100)
[2018-12-20] MEDS: Bumetanide 25 MG in CONTAINER,EMPTY 1 BAG CONT INF (15:53)
[2018-12-20] MEDS: Metoprolol Tartrate 25 MG Tablet PO (16:01)
[2018-12-20] MEDS: Glucerna Shake 120 ML LIQUID 60 ML PO (16:02)
[2018-12-20 16:06] LABS: Bedside Glucose 117 mg/dL (70-110)
[2018-12-20] MEDS: oxyCODONE 5 MG Tablet PO (16:15)
[2018-12-20] MEDS: Cephalexin 500 MG Capsule PO (22:54)
[2018-12-20] MEDS: hydrALAZINE 25 MG Tablet PO (22:54)
[2018-12-20] MEDS: Atorvastatin Calcium 80 MG Tablet PO (22:54)
[2018-12-20 23:16] LABS: Bedside Glucose 115 mg/dL (70-110)
[2018-12-21] VITALS (15 sets, daily range): BP systolic 138–168; BP diastolic 58–86; PULSE 93–108; RESP 16; TEMP 36.4–37; O2SAT 88–95
[2018-12-21] MEDS: oxyCODONE 5 MG Tablet PO ×2 (01:57→13:13)
[2018-12-21 06:45] LABS: Absolute Lymphocyte Count 1.74 X10^3/uL (0.83-4.51); Absolute Neutrophil Count 10.6 X10^3/uL (2.0-7.7); Basophil# 0.06 X10^3/uL; Basophil% 0.4 % (0-1); Eosinophil# 0.09 X10^3/uL; Eosinophils% 0.7 % (0-5); Hematocrit 35.6 % (40-54); Hemoglobin 10.9 g/dL (13.0-16.5); Lymphocyte # 1.74 X10^3/ul (4.0); Lymphocyte % 12.9 % (19-41); Mean Corp Hgb Conc 30.6 g/dL (32-36); Mean Corpuscular Hgb 27.1 pg (27.0-32.0); Mean Corpuscular Volume 88.6 fL (80-94); Mean Platelet Vol. 9.5 fl (6.2-12.0); Monocyte# 1.01 X10^3/uL; Monocyte% 7.5 % (0-10); NRBC Flagged by Analyzer 0 % (0-5); Neutrophil # 10.55 X10^3/uL (2.7-7.7); Platelet Count 580 K/mm3 (150-450); RBC Distribution Width CV 12.9 % (11.6-14.6); RBC Distribution Width SD 41.8 fl (35.1-43.9); Red Blood Count 4.02 M/mm3 (4.6-6.2); White Blood Count 13.5 K/mm3 (4.4-11.0)
[2018-12-21] MEDS: hydrALAZINE 25 MG Tablet PO ×3 (06:51→22:25)
[2018-12-21] MEDS: Cephalexin 500 MG Capsule PO ×3 (06:51→22:22)
[2018-12-21 07:00] LABS: Bedside Glucose 66 mg/dL (70-110)
[2018-12-21 07:17] LABS: Phosphorus 4.8 mg/dL (2.5-4.9)
[2018-12-21 07:21] LABS: AST(SGOT) 17 U/L (15-37); Alanine Aminotransfer ALT/SGPT 21 U/L (16-61); Albumin, Serum 2.1 g/dL (3.2-5.0); Alkaline Phosphatase 85 U/L (45-117); Anion Gap 6 (5-15); BUN 50 mg/dL (7-18); BUN/Creat Ratio 34.7 RATIO (10-20); Bilirubin, Direct 0.13 mg/dL (0.00-0.30); Calcium,Total 8.6 mg/dL (8.5-10.1); Chloride 106 mmol/L (98-107); Creatinine, Serum 1.44 mg/dL (0.70-1.30); EST Glomerular Filtration Rate 55 mL/min (>60); Est Glom Filt Rate - Afr Amer 67 mL/min (>60); Estimated Creatinine Clearance 65.36 ml/min; Globulin 5.1 g/dL (2.2-4.2); Glucose 63 mg/dL (74-106); Magnesium 1.9 mg/dL (1.6-2.6); Potassium 3.7 mmol/L (3.5-5.1); Protein, Total 7.2 g/dL (6.4-8.2); Sodium Level 145 mmol/L (136-145)
[2018-12-21] MEDS: Aspirin 81 MG TAB.CHEW PO (08:24)
[2018-12-21] MEDS: Glucerna Shake 120 ML LIQUID 60 ML PO (08:24)
[2018-12-21] MEDS: Magnesium Oxide 400 MG Tablet PO (08:25)
[2018-12-21] MEDS: Metoprolol(XL)Succ 50 MG Tablet PO (08:25)
[2018-12-21] MEDS: Famotidine 20 MG Tablet PO (08:25)
--- NOTE | 2018-12-21 10:20 | PCM.PN.HOSP ---
Patient Problems: Active and Suspected Problems (Last Reviewed 12/16/18 @ 18:13 by Meka Barraza) Acute on chronic diastolic heart failure (Acute) Subjective: Patient was admitted from his scrapper's office on 12/21/18 o/a of fluid overload. Patient had just been discharged on 12/13/18 for acuteh exacerbation of HFpEF, CORA and hypokalemia. He improved with diuresis. He had also been admitted for a few days and discharged on 12/10/18 for RLE staph aureus cellulitis and prepatellar bursitis. Patient seen and examined. He feels much better and says he had a markedly swollen scrotum, which is improving. Swelling in his LE is also improving. He stated that he had gained ~ 25 pounds within a week after discharge. Review of systems is otherwise negative. Labs and vitals reviewed. He is currently on bumex drip Vitals/I&O's: Vital Signs Temp Pulse Resp BP Pulse Ox 97.6 F L 93 16 153/79 H 93 12/21/18 09:00 12/21/18 09:00 12/21/18 09:00 12/21/18 09:00 12/21/18 09:00 Oxygen Delivery Method Room Air Weight: 289 lb 14.526 oz Body Mass Index (BMI) 41.1 Intake and Output for Last 24 Hours 12/19/18 12/20/18 12/21/18 23:59 23:59 23:59 Intake Total 340 / 340 100 / 100 Output Total 3200 / 3200 1450 / 1450 Balance -2860 / -2860 -1350 / -1350 General: Alert, Oriented x3, Cooperative, No apparent distress HEENT: Atraumatic, PERRLA, EOMI, Normocephalic Oral: Moist Mucosa Neck: Supple, No JVD, Negative Carotid Bruits Lungs: - - mildly diminished breath sounds in lower lung sheth bibasally; no wheezes or crackles. Cardiovascular: Regular rate, Regular Rhythm, Normal S1, Normal S2, No murmurs Abdomen: Bowel Sounds Present, Soft, Non Tender, Non-Distended, No Hepato-splenomegaly Extremities: No clubbing, No cyanosis, Capillary Refill Less than 3 Seconds, Edema - 1+ bipedal pitting edema, - - RLE wrapped in MEME bandage Skin: No rashes, No breakdown, - - scrotal edema has improved Musculoskeletal: No Tenderness to Palpation of Joints or Extremities Lymphatic: No Cervical, Supraclavicular, or Inguinal Adenopathy Neurological: Cranial nerves II-XII grossly intact, Neuro grossly intact, Motor Exam 5/5 strength throughout Psych/Mental Status: Normal Affect, Appropriate, Alert and oriented to time, place, person, mood and affect Laboratory Results 12/20/18 14:35: WBC 12.8 H, RBC 3.88 L, Hgb 10.6 L, Hct 34.8 L, MCV 89.7, MCH 27.3, MCHC 30.5 L, RDW Std Deviation 41.9, RDW Coeff of Rajendra 12.9, Plt Count 453 H, MPV 9.4, Immature Gran % (Auto) 0.800, Neut % (Auto) 83.6 H, Lymph % (Auto) 8.6 L, [place] % (Auto) 5.9, Eos % (Auto) 0.6, Baso % (Auto) 0.5, Absolute Neuts (auto) 10.7 H, Absolute Lymphs (auto) 1.10, Nucleated RBC % 0 12/20/18 14:35: Sodium 143, Potassium 4.3, Chloride 107, Carbon Dioxide 32.0, Anion Gap 4 L, BUN 53 H, Creatinine 1.38 H, Estim Creat Clear Calc 68.21, Est GFR (MDRD) Af Amer 70, Est GFR (MDRD) Non-Af 58 L, BUN/Creatinine Ratio 38.4 H, Glucose 122 H, Calcium 8.6, Troponin I < 0.015 12/20/18 14:35: B-Natriuretic Peptide 307.7 H 12/20/18 15:58: POC Glucose 117 H 12/20/18 17:15: Troponin I < 0.015 12/20/18 20:05: Troponin I < 0.015 12/20/18 22:53: POC Glucose 115 H 12/21/18 06:15: Sodium 145, Potassium 3.7, Chloride 106, Carbon Dioxide 33.0 H, Anion Gap 6, BUN 50 H, Creatinine 1.44 H, Estim Creat Clear Calc 65.36, Est GFR (MDRD) Af Amer 67, Est GFR (MDRD) Non-Af 55 L, BUN/Creatinine Ratio 34.7 H, Glucose 63 L, Calcium 8.6, Magnesium 1.9, Total Bilirubin 0.40, Direct Bilirubin 0.13, AST 17, ALT 21, Alkaline Phosphatase 85, Total Protein 7.2, Albumin 2.1 L, Globulin 5.1 H, TSH 5.70 H 12/21/18 06:15: WBC 13.5 H, RBC 4.02 L, Hgb 10.9 L, Hct 35.6 L, MCV 88.6, MCH 27.1, MCHC 30.6 L, RDW Std Deviation 41.8, RDW Coeff of Rajendra 12.9, Plt Count 580 H, MPV 9.5, Immature Gran % (Auto) 0.500, Neut % (Auto) 78.0 H, Lymph % (Auto) 12.9 L, [place] % (Auto) 7.5, Eos % (Auto) 0.7, Baso % (Auto) 0.4, Absolute Neuts (auto) 10.6 H, Absolute Lymphs (auto) 1.74, Nucleated RBC % 0 12/21/18 06:15: Phosphorus 4.8 12/21/18 06:48: POC Glucose 66 L Diagnostic Data Chest X-Ray 12/20/18 14:08 IMPRESSION: Mild degree of CHF. Blunting of both costophrenic angles. Electronically Signed: Dario Ponce, at 14:36 EDT , Service support , Current Medications Acetaminophen (Tylenol) 650 mg PO Q6H PRN PRN PRN Reason: Mild pain 1-3/Temp > 100.7 F Aspirin (Aspirin, Baby) 81 mg PO DAILY@0800 [facility] Last Admin: 12/21/18 08:24 Dose: 81 mg Documented by: Atorvastatin Calcium (Lipitor) 80 mg PO QHS [facility] Last Admin: 12/20/18 22:54 Dose: 80 mg Documented by: Cephalexin (Keflex) 500 mg PO Q8 [facility] Stop: 12/22/18 22:01 Last Admin: 12/21/18 06:51 Dose: 500 mg Documented by: Dextrose (D50w Syringe) 0 gm IV X1 PRN; Protocol PRN Reason: Hypoglycemia Famotidine (Pepcid) 20 mg PO DAILY [facility] Last Admin: 12/21/18 08:25 Dose: 20 mg Documented by: Glucagon () 1 mg IM .X1 PRN PRN Reason: Hypoglycemia Hydralazine HCl (Apresoline) 25 mg PO TID [facility] Last Admin: 12/21/18 06:51 Dose: 25 mg Documented by: Hydralazine HCl (Apresoline Iv) 10 mg IV Q4H PRN PRN PRN Reason: SBP>180 mmhg Bumetanide 25 mg/ (Miscellaneous Information) 100 mls @ 2 mls/hr CONT INF .Q50H [facility] Last Admin: 12/20/18 15:53 Dose: 0.5 mg/hr, 2 mls/hr Documented by: Insulin Glargine (Lantus ([facility])) 30 units SC 1100,2200 [facility] Last Admin: 12/20/18 22:55 Dose: 30 units Documented by: Insulin Human Lispro (Humalog Kwikpen ([facility])) 0 unit SC ACHS [facility]; Protocol Last Admin: 12/21/18 06:49 Dose: Not Given Documented by: Magnesium Oxide (Mag-Ox 400) 400 mg PO DAILY [facility] Last Admin: 12/21/18 08:25 Dose: 400 mg Documented by: Melatonin (Melatonin) 3 mg PO QHS PRN PRN PRN Reason: INSOMNIA Metoprolol Succinate (Toprol Xl (Beta Brittany)) 50 mg PO DAILY [facility] Last Admin: 12/21/18 08:25 Dose: 50 mg Documented by: Morphine Sulfate () 2 mg IV Q3H PRN PRN PRN Reason: Severe Pain (7-10/10) Nitroglycerin (Nitrostat) 0.4 mg SUBLINGUAL Q5M PRN PRN Reason: CARDIAC/CHEST PAIN Ondansetron HCl (Zofran) 4 mg IV Q8H PRN PRN PRN Reason: NAUSEA/VOMITING Oxycodone HCl (Oxyir) 5 mg PO Q4H PRN PRN PRN Reason: Moderate Pain (4-6/10) Last Admin: 12/21/18 01:57 Dose: 5 mg Documented by: Polyethylene Glycol (Miralax) 17 gm PO DAILY [facility] Last Admin: 12/21/18 08:25 Dose: Not Given Documented by: Prochlorperazine Edisylate (Compazine Iv) 5 mg IV Q4H PRN PRN PRN Reason: Breakthrough Nausea/Vomiting Sodium Chloride () 10 - 40 ml IV UD PRN PRN Reason: SALINE FLUSH Medical Necessity - Tobacco Use Smoking Status: Never smoker Assessment/Plan All Active Problems (Last Reviewed 12/16/18 @ 18:13 by Meka Barraza) Acute on chronic diastolic heart failure (Acute) Scrotal edema (Acute) Bursitis (Resolved) 1. Acute on chronic exacerbation of HFpEF scrotal edema is getting better patient admits to feeling much better 2D echo (12/12): EF of 60% with stage 1 diastolic dysfunction, and mild anteroseptal, anterior and apical hypokinesia. currently on bumex drip urine output since admission is 4.2L cardiology on board plan for possible cath this sunday, per patient fluid restriction to 1500cc daily monitor intake and output 2. CAD s/p stents: had stents done at [facility] in 2013. Had stents to LAD and diagonal artery on statin, metoprolol and aspirin 3. RLE cellulitis: was recently admitted for RLE cellulitis and right knee prepatellar bursitis on [facility] 4. Type 2 diabetes mellitus poorly controlled. A1C was ~ 15 on 12/08/18 on ISS. acuchecks ACHS on insulin lantus 30IU bid; also on metformin 5. Hypertension: on hydralazine, metoprolol. DVT prophylaxis: lovenox Code Visit Inpatient E&M: 11967 [facility] Hosp L3
[2018-12-21 11:21] LABS: Bedside Glucose 131 mg/dL (70-110)
[2018-12-21 16:41] LABS: Bedside Glucose 126 mg/dL (70-110)
--- NOTE | 2018-12-21 16:53 | PCM.PN.CARD ---
Subjectve: Patient was diuresed overnight and feels better today. Please see Dr. Franks's office note from yesterday for full details. Objective: Vital Signs Temp Pulse Resp BP Pulse Ox 98.0 F 94 16 148/70 H 94 12/21/18 13:11 12/21/18 14:53 12/21/18 13:11 12/21/18 13:11 12/21/18 13:11 Oxygen Delivery Method Room Air Weight: 289 lb 14.526 oz Body Mass Index (BMI) 41.1 Intake and Output for Last 24 Hours 12/19/18 12/20/18 12/21/18 23:59 23:59 23:59 Intake Total 340 / 340 755.43 / 755.43 Output Total 3200 / 3200 2850 / 2850 Balance -2860 / -2860 -2094.57 / -2094.57 General: Awake, Alert, Oriented x 3 HEENT: Atraumatic Oral: Moist Mucosa Neck: Supple Lungs: Clear to auscultation Cardiovascular: Regular Rhythm Abdomen: Soft Extremities: Bilateral Edema +3 Skin: No Rashes Psych/Mental Status: Appropriate 12/20/18 17:15: Troponin I < 0.015 12/20/18 20:05: Troponin I < 0.015 12/21/18 06:15: Sodium 145, Potassium 3.7, Chloride 106, Carbon Dioxide 33.0 H, Anion Gap 6, BUN 50 H, Creatinine 1.44 H, Est GFR (MDRD) Af Amer 67, Est GFR (MDRD) Non-Af 55 L, BUN/Creatinine Ratio 34.7 H, Glucose 63 L, Calcium 8.6, Magnesium 1.9, Total Bilirubin 0.40, Direct Bilirubin 0.13 12/21/18 06:15: WBC 13.5 H, RBC 4.02 L, Hgb 10.9 L, Hct 35.6 L, MCV 88.6, MCH 27.1, MCHC 30.6 L, Plt Count 580 H, MPV 9.5, Immature Gran % (Auto) 0.500, Neut % (Auto) 78.0 H, Lymph % (Auto) 12.9 L, [place] % (Auto) 7.5, Eos % (Auto) 0.7, Baso % (Auto) 0.4, Absolute Neuts (auto) 10.6 H, Nucleated RBC % 0 12/21/18 06:15: Phosphorus 4.8 Rhythm: EKG: ECHO: Stress Test: Cardiac Cath: PCI: CT Surgery: Holter monitor: EPS: PPM: CXR: Chest CT Scan: Medical Necessity - Tobacco Use Smoking Status: Never smoker Assessment/Plan 1. Anasarca: Patient is responding well to Bumex drip. Continue this overnight. Check BMP tomorrow. 2. Coronary artery disease: Plan is to consider coronary angiography later this admission.
--- NOTE | 2018-12-21 18:10 | CM.UR ---
RN CM Assessment Presentation: RLE cellulitis Intro role of CM and purpose of RN CM assessment. Demographics, PCP and Pharmacy verified. Pt states he is independent at home; plans to return home and can assist if needed. can assist with any care at home. PCP: Dr. Ricks Specialists: Dr. Nick, ID. Dr. Flavio Rowe Preferred Pharmacy: [facility] Pharmacy, [place] Insurance: [employer] Prescription Benefit: yes LNOK: Living Arrangements: Lives independently- no care needs identified. Transportation: drives or can drive DME: Continuous glucose monitor. HHC: Currently active with CCN Patient DC goals: Home DC PLAN: Home w/resumption of CCN. Elbert Smith RN, CCM.
[2018-12-21 18:35] LABS: Protein, Urine (Random) 35.2 mg/dL (<11.9); Protein:Creat Ratio 834 mg/g CRE (0-200)
[2018-12-21] MEDS: MELATONIN 3 MG TABLET PO (22:22)
[2018-12-21] MEDS: Atorvastatin Calcium 80 MG Tablet PO (22:24)
[2018-12-21 22:36] LABS: Bedside Glucose 166 mg/dL (70-110)
[2018-12-22] VITALS (14 sets, daily range): BP systolic 140–156; BP diastolic 61–84; PULSE 86–101; RESP 16–18; TEMP 36.5–36.9; O2SAT 92–96
[2018-12-22] MEDS: Cephalexin 500 MG Capsule PO ×3 (06:26→21:28)
[2018-12-22] MEDS: Enoxaparin 40 MG/0.4 ML Syringe SC (06:26)
[2018-12-22] MEDS: hydrALAZINE 25 MG Tablet PO ×3 (06:26→21:27)
[2018-12-22 06:35] LABS: Bedside Glucose 70 mg/dL (70-110)
[2018-12-22 07:20] LABS: Absolute Neutrophil Count 7.7 X10^3/uL (2.0-7.7); Basophil# 0.06 X10^3/uL; Basophil% 0.6 % (0-1); Hematocrit 32.3 % (40-54); Mean Corpuscular Volume 87.3 fL (80-94); Mean Platelet Vol. 9.3 fl (6.2-12.0); Monocyte# 0.75 X10^3/uL; Monocyte% 7.5 % (0-10); NRBC Flagged by Analyzer 0 % (0-5); Neutrophil # 7.74 X10^3/uL (2.7-7.7); Neutrophil % 77.5 % (47-70); Platelet Count 454 K/mm3 (150-450); RBC Distribution Width CV 12.7 % (11.6-14.6); RBC Distribution Width SD 40.5 fl (35.1-43.9)
[2018-12-22 07:27] LABS: Anion Gap 4 (5-15); BUN 50 mg/dL (7-18); BUN/Creat Ratio 33.3 RATIO (10-20); Calcium,Total 8.8 mg/dL (8.5-10.1); Chloride 103 mmol/L (98-107); EST Glomerular Filtration Rate 53 mL/min (>60); Est Glom Filt Rate - Afr Amer 64 mL/min (>60); Estimated Creatinine Clearance 62.75 ml/min; Glucose 88 mg/dL (74-106); Potassium 3.7 mmol/L (3.5-5.1); Sodium Level 143 mmol/L (136-145)
[2018-12-22] MEDS: Famotidine 20 MG Tablet PO (08:31)
[2018-12-22] MEDS: Magnesium Oxide 400 MG Tablet PO (08:31)
[2018-12-22] MEDS: Aspirin 81 MG TAB.CHEW PO (08:31)
[2018-12-22] MEDS: Metoprolol(XL)Succ 50 MG Tablet PO (08:31)
[2018-12-22] MEDS: 0.9% NaCl Peripheral Flush Adult/Peds IV (08:35)
[2018-12-22] MEDS: Bumetanide 25 MG in CONTAINER,EMPTY 1 BAG CONT INF (08:43)
--- NOTE | 2018-12-22 11:12 | PN_ITS ---
Patient Problems: Active and Suspected Problems (Last Reviewed 12/16/18 @ 18:13 by Meka Barraza) Acute on chronic diastolic heart failure (Acute) Subjective: Patient seen and examined. He has no active events overnight. He feels well, and SOB has improved. Review of systems is otherwise negative. Labs and vitals reviewed. CR has trended up slightly to 1.5, likely due ot effect of the lasix; bicarb is also up slightly to 36. Vitals/I&O's: Vital Signs Temp Pulse Resp BP Pulse Ox 98.3 F 94 16 140/61 H 92 12/22/18 09:15 12/22/18 11:00 12/22/18 09:15 12/22/18 09:15 12/22/18 09:15 Oxygen Delivery Method Room Air Weight: 283 lb 1.176 oz Body Mass Index (BMI) 41.1 Intake and Output for Last 24 Hours 12/20/18 12/21/18 12/22/18 23:59 23:59 23:59 Intake Total 340 / 340 1339.06 / 1339.06 67.6 / 67.6 Output Total 3200 / 3200 5250 / 5250 1300 / 1300 Balance -2860 / -2860 -3910.94 / -3910.94 -1232.4 / -1232.4 General: Alert, Oriented x3, Cooperative, No apparent distress HEENT: Atraumatic, PERRLA, EOMI, Normocephalic Oral: Moist Mucosa Neck: Supple, No JVD, Negative Carotid Bruits Lungs: - - mildly diminished breath sounds in lower lung sheth bibasally; no wh eezes or crackles. Cardiovascular: Regular rate, Regular Rhythm, Normal S1, Normal S2, No murmurs Abdomen: Bowel Sounds Present, Soft, Non Tender, Non-Distended, No Hepato- splenomegaly Extremities: No clubbing, No cyanosis, Capillary Refill Less than 3 Seconds, Edema - LE edema has resolved Skin: No rashes, No breakdown, - - scrotal edema has improved markedly Musculoskeletal: No Tenderness to Palpation of Joints or Extremities Lymphatic: No Cervical, Supraclavicular, or Inguinal Adenopathy Neurological: Cranial nerves II-XII grossly intact, Neuro grossly intact, Motor Exam 5/5 strength throughout Psych/Mental Status: Normal Affect, Appropriate, Alert and oriented to time, place, person, mood and affect Laboratory Results 12/21/18 11:04: POC Glucose 131 H 12/21/18 16:29: POC Glucose 126 H 12/21/18 17:45: U Random Total Protein 35.2 H, Urine Creatinine 42.20, Protein/Creatinin Ratio 834 H 12/21/18 22:01: POC Glucose 166 H 12/22/18 06:28: POC Glucose 70 12/22/18 06:59: WBC 10.0, RBC 3.70 L, Hgb 10.0 L, Hct 32.3 L, MCV 87.3, MCH 27.0, MCHC 31.0 L, RDW Std Deviation 40.5, RDW Coeff of Rajendra 12.7, Plt Count 454 H, MPV 9.3, Immature Gran % (Auto) 0.400, Neut % (Auto) 77.5 H, Lymph % (Auto) 13.0 L, [place] % (Auto) 7.5, Eos % (Auto) 1.0, Baso % (Auto) 0.6, Absolute Neuts (auto) 7.7, Absolute Lymphs (auto) 1.30, Nucleated RBC % 0 12/22/18 06:59: Sodium 143, Potassium 3.7, Chloride 103, Carbon Dioxide 36.0 H, Anion Gap 4 L, BUN 50 H, Creatinine 1.50 H, Estim Creat Clear Calc 62.75, Est GFR (MDRD) Af Amer 64, Est GFR (MDRD) Non-Af 53 L, BUN/Creatinine Ratio 33.3 H, Glucose 88, Calcium 8.8 Current Medications Acetaminophen (Tylenol) 650 mg PO Q6H PRN PRN PRN Reason: Mild pain 1-3/Temp > 100.7 F Aspirin (Aspirin, Baby) 81 mg PO DAILY@0800 [facility] Last Admin: 12/22/18 08:31 Dose: 81 mg Documented by: Atorvastatin Calcium (Lipitor) 80 mg PO QHS [facility] Last Admin: 12/21/18 22:24 Dose: 80 mg Documented by: Cephalexin (Keflex) 500 mg PO Q8 [facility] Stop: 12/22/18 22:01 Last Admin: 12/22/18 06:26 Dose: 500 mg Documented by: Dextrose (D50w Syringe) 0 gm IV X1 PRN; Protocol PRN Reason: Hypoglycemia Enoxaparin Sodium (Lovenox) 40 mg SC DAILY@0600 [facility] Last Admin: 12/22/18 06:26 Dose: 40 mg Documented by: Famotidine (Pepcid) 20 mg PO DAILY [facility] Last Admin: 12/22/18 08:31 Dose: 20 mg Documented by: Glucagon () 1 mg IM .X1 PRN PRN Reason: Hypoglycemia Hydralazine HCl (Apresoline) 25 mg PO TID [facility] Last Admin: 12/22/18 06:26 Dose: 25 mg Documented by: Hydralazine HCl (Apresoline Iv) 10 mg IV Q4H PRN PRN PRN Reason: SBP>180 mmhg Bumetanide 25 mg/ (Miscellaneous Information) 100 mls @ 2 mls/hr CONT INF .Q50H [facility] Last Admin: 12/22/18 08:43 Dose: 0.5 mg/hr, 2 mls/hr Documented by: Insulin Glargine (Lantus (Bk)) 30 units SC 1100,2200 [facility] Last Admin: 12/22/18 09:09 Dose: 30 units Documented by: Insulin Human Lispro (Humalog Kwikpen ([facility])) 0 unit SC ACHS [facility]; Protocol Last Admin: 12/22/18 06:29 Dose: Not Given Documented by: Magnesium Oxide (Mag-Ox 400) 400 mg PO DAILY [facility] Last Admin: 12/22/18 08:31 Dose: 400 mg Documented by: Melatonin (Melatonin) 3 mg PO QHS PRN PRN PRN Reason: INSOMNIA Last Admin: 12/21/18 22:22 Dose: 3 mg Documented by: Metoprolol Succinate (Toprol Xl (Beta Brittany)) 50 mg PO DAILY [facility] Last Admin: 12/22/18 08:31 Dose: 50 mg Documented by: Morphine Sulfate () 2 mg IV Q3H PRN PRN PRN Reason: Severe Pain (7-10/10) Nitroglycerin (Nitrostat) 0.4 mg SUBLINGUAL Q5M PRN PRN Reason: CARDIAC/CHEST PAIN Ondansetron HCl (Zofran) 4 mg IV Q8H PRN PRN PRN Reason: NAUSEA/VOMITING Oxycodone HCl (Oxyir) 5 mg PO Q4H PRN PRN PRN Reason: Moderate Pain (4-6/10) Last Admin: 12/21/18 13:13 Dose: 5 mg Documented by: Polyethylene Glycol (Miralax) 17 gm PO DAILY [facility] Last Admin: 12/22/18 08:31 Dose: Not Given Documented by: Prochlorperazine Edisylate (Compazine Iv) 5 mg IV Q4H PRN PRN PRN Reason: Breakthrough Nausea/Vomiting Sodium Chloride () 10 - 40 ml IV UD PRN PRN Reason: SALINE FLUSH Last Admin: 12/22/18 08:35 Dose: 10 ml Documented by: Medical Necessity - Tobacco Use Smoking Status: Never smoker Assessment/Plan All Active Problems (Last Reviewed 12/16/18 @ 18:13 by Meka Barraza) Acute on chronic diastolic heart failure (Acute) Scrotal edema (Acute) Bursitis (Resolved) 1. Acute on chronic exacerbation of HFpEF * patient feels much better * 2D echo (12/12): EF of 60% with stage 1 diastolic dysfunction, and mild marisela septal, anterior and apical hypokinesia. * currently on bumex drip * urine output since admission is 4.2L * cardiology on board * plan for possible cath later during this admission, per cardiology * fluid restriction to 1500cc daily * monitor intake and output * 2. CAD s/p stents: * had stents done at [facility] in 2013. Had stents to LAD and diagonal artery * on statin, metoprolol and aspirin * 3. RLE cellulitis: * stable * on Keflex * 4. Type 2 diabetes mellitus * poorly controlled. A1C was ~ 15 on 12/08/18 * on ISS. acuchecks ACHS * on insulin lantus 30IU bid; also on metformin. metformin on hold due to possibility of cardiac cath later this admissionl 5. Hypertension: on hydralazine, metoprolol. 6. Elevated Cr: Cr is 1.5 today, baseline is ~ 0.9. upwards trend in CR likely due to bumex. Should improve once bumex drip is discontinued. DVT prophylaxis: lovenox Code Visit Inpatient E&M: 55471 Subs Hosp L2
[2018-12-22 11:31] LABS: Bedside Glucose 120 mg/dL (70-110)
[2018-12-22] MEDS: Acetaminophen 325 MG Tablet 650 MG PO (12:04)
[2018-12-22 16:46] LABS: Bedside Glucose 130 mg/dL (70-110)
--- NOTE | 2018-12-22 17:08 | PCM.PN.CARD ---
Subjectve: Patient feels better compared to Sunday. Denies any significant shortness of breath or chest pain. Objective: Vital Signs Temp Pulse Resp BP Pulse Ox 97.7 F L 86 18 141/73 H 96 12/22/18 15:19 12/22/18 15:19 12/22/18 15:19 12/22/18 15:19 12/22/18 15:19 Oxygen Delivery Method Room Air Weight: 283 lb 1.176 oz Body Mass Index (BMI) 41.1 Intake and Output for Last 24 Hours 12/20/18 12/21/18 12/22/18 23:59 23:59 23:59 Intake Total 340 / 340 1339.06 / 1339.06 477.6 / 477.6 Output Total 3200 / 3200 5250 / 5250 2650 / 2650 Balance -2860 / -2860 -3910.94 / -3910.94 -2172.4 / -2172.4 General: Awake, Alert, Oriented x 3 HEENT: Atraumatic Oral: Moist Mucosa Neck: Supple Lungs: Clear to auscultation Cardiovascular: Normal S1, Normal S2 Abdomen: Soft Extremities: Bilateral Edema +2 Psych/Mental Status: Appropriate 12/22/18 06:59: WBC 10.0, RBC 3.70 L, Hgb 10.0 L, Hct 32.3 L, MCV 87.3, MCH 27.0, MCHC 31.0 L, Plt Count 454 H, MPV 9.3, Immature Gran % (Auto) 0.400, Neut % (Auto) 77.5 H, Lymph % (Auto) 13.0 L, [place] % (Auto) 7.5, Eos % (Auto) 1.0, Baso % (Auto) 0.6, Absolute Neuts (auto) 7.7, Nucleated RBC % 0 12/22/18 06:59: Sodium 143, Potassium 3.7, Chloride 103, Carbon Dioxide 36.0 H, Anion Gap 4 L, BUN 50 H, Creatinine 1.50 H, Est GFR (MDRD) Af Amer 64, Est GFR (MDRD) Non-Af 53 L, BUN/Creatinine Ratio 33.3 H, Glucose 88, Calcium 8.8 Rhythm: EKG: ECHO: Stress Test: Cardiac Cath: PCI: CT Surgery: Holter monitor: EPS: PPM: CXR: Chest CT Scan: Medical Necessity - Tobacco Use Smoking Status: Never smoker Assessment/Plan 1. Anasarca: Patient is responding well to Bumex drip. Continue this overnight. Check BMP tomorrow. Creatinine is staying fairly stable. 2. Coronary artery disease: Plan is to consider coronary angiography later this admission.
[2018-12-22] MEDS: MELATONIN 3 MG TABLET PO (21:27)
[2018-12-22] MEDS: Atorvastatin Calcium 80 MG Tablet PO (21:27)
[2018-12-22 22:55] LABS: Bedside Glucose 178 mg/dL (70-110)
[2018-12-23] VITALS (12 sets, daily range): BP systolic 142–158; BP diastolic 66–92; PULSE 94–106; RESP 14–23; TEMP 36.9–37.2; O2SAT 92–98
[2018-12-23 05:54] LABS: Absolute Lymphocyte Count 1.13 X10^3/uL (0.83-4.51); Absolute Neutrophil Count 7.1 X10^3/uL (2.0-7.7); Basophil# 0.06 X10^3/uL; Basophil% 0.7 % (0-1); Eosinophil# 0.09 X10^3/uL; Hematocrit 32.6 % (40-54); Hemoglobin 10.1 g/dL (13.0-16.5); Lymphocyte # 1.13 X10^3/ul (4.0); Lymphocyte % 12.4 % (19-41); Mean Corpuscular Hgb 26.7 pg (27.0-32.0); Mean Corpuscular Volume 86.2 fL (80-94); Mean Platelet Vol. 9.3 fl (6.2-12.0); Monocyte# 0.71 X10^3/uL; Monocyte% 7.8 % (0-10); NRBC Flagged by Analyzer 0 % (0-5); Neutrophil # 7.08 X10^3/uL (2.7-7.7); Neutrophil % 77.8 % (47-70); Platelet Count 437 K/mm3 (150-450); RBC Distribution Width CV 12.9 % (11.6-14.6); RBC Distribution Width SD 40.6 fl (35.1-43.9); Red Blood Count 3.78 M/mm3 (4.6-6.2); White Blood Count 9.1 K/mm3 (4.4-11.0)
[2018-12-23] MEDS: Aspirin 81 MG TAB.CHEW PO (05:58)
[2018-12-23] MEDS: Metoprolol(XL)Succ 50 MG Tablet PO (05:58)
[2018-12-23] MEDS: hydrALAZINE 25 MG Tablet PO ×3 (05:58→21:22)
[2018-12-23 06:13] LABS: Anion Gap 5 (5-15); BUN 49 mg/dL (7-18); BUN/Creat Ratio 32.5 RATIO (10-20); Calcium,Total 9.2 mg/dL (8.5-10.1); Chloride 101 mmol/L (98-107); Creatinine, Serum 1.51 mg/dL (0.70-1.30); EST Glomerular Filtration Rate 52 mL/min (>60); Est Glom Filt Rate - Afr Amer 63 mL/min (>60); Estimated Creatinine Clearance 62.33 ml/min; Glucose 125 mg/dL (74-106); Potassium 3.8 mmol/L (3.5-5.1); Sodium Level 144 mmol/L (136-145)
[2018-12-23 06:51] LABS: Bedside Glucose 119 mg/dL (70-110)
[2018-12-23] MEDS: Magnesium Oxide 400 MG Tablet PO (08:27)
[2018-12-23] MEDS: Famotidine 20 MG Tablet PO (08:27)
--- NOTE | 2018-12-23 09:49 | NURSING ---
Was asked to see patient for drainage/redness to the right lower leg. pt is known to this nurse. was recently here for cellulitis of the right lower leg. ortho had been seeing the patient during that admission for right knee prepatellar bursitis. Dr Abdias Rowe did drain the area at that time. there is much less redness noted on this admission. small amount of serosanguineous drainage noted from the small pinpoint open area. washed leg and foot with soap and water. pat dry. placed a dry dressing and wrapped with an MEME wrap from the base of the toes to just below the knee. pt tolerated well. will monitor as needed.
--- NOTE | 2018-12-23 10:11 | NURSING ---
wound photo: right lower leg
--- NOTE | 2018-12-23 11:09 | PCM.PN.CARD ---
Subjectve: Patient feeling much better than when I saw him on Sunday. Is diuresed approximately 25 pounds of water in the past 3 days. No chest pain or anginal symptoms. Telemetry negative. Objective: Vital Signs Temp Pulse Resp BP Pulse Ox 98.5 F 95 16 147/72 H 93 12/23/18 09:22 12/23/18 09:22 12/23/18 09:22 12/23/18 09:22 12/23/18 09:22 Oxygen Delivery Method Room Air Weight: 274 lb 7.608 oz Body Mass Index (BMI) 41.1 Intake and Output for Last 24 Hours 12/21/18 12/22/18 12/23/18 23:59 23:59 23:59 Intake Total 1339.06 / 1339.06 1328.0 / 1328.0 Output Total 5250 / 5250 4740 / 4740 1750 / 1750 Balance -3910.94 / -3910.94 -3412.0 / -3412.0 -1750 / -1750 General: Awake, Alert, Oriented x 3 HEENT: PERRL, EOMI, Sclera Non Icteric Neck: Supple, Good ROM, No Lymph Node Enlargement Lungs: Clear to auscultation Cardiovascular: Regular Rhythm, Normal S1, Normal S2, No Murmurs, No Rubs, No Gallops Vascular: No Carotid Bruits, Normal Femoral Pulses, Normal Radial Pulses, Normal Dorsalis Pedal Pulse, Normal Posterior Tibial Pulses Abdomen: Bowel Sounds Present, Soft, Non Tender, No HSM, No Organomegaly Extremities: No Cyanosis, No Clubbing, No edema, Bilateral Edema +1 Neurological: No Focal Motor or Sensory Deficit 12/23/18 05:35: WBC 9.1, RBC 3.78 L, Hgb 10.1 L, Hct 32.6 L, MCV 86.2, MCH 26.7 L, MCHC 31.0 L, Plt Count 437, MPV 9.3, Immature Gran % (Auto) 0.300, Neut % (Auto) 77.8 H, Lymph % (Auto) 12.4 L, [place] % (Auto) 7.8, Eos % (Auto) 1.0, Baso % (Auto) 0.7, Absolute Neuts (auto) 7.1, Nucleated RBC % 0 09/16/19 05:35: Sodium 144, Potassium 3.8, Chloride 101, Carbon Dioxide 38.0 H, Anion Gap 5, BUN 49 H, Creatinine 1.51 H, Est GFR (MDRD) Af Amer 63, Est GFR (MDRD) Non-Af 52 L, BUN/Creatinine Ratio 32.5 H, Glucose 125 H, Calcium 9.2 Rhythm: EKG: ECHO: Stress Test: Cardiac Cath: PCI: CT Surgery: Holter monitor: EPS: PPM: CXR: Chest CT Scan: Medical Necessity - Tobacco Use Smoking Status: Never smoker Assessment/Plan 1. Congestive heart failure: Patient has presented with significant congestive heart failure after undergoing an injury to his right lower extremity, requiring admission several days prior, with IV antibiotics and aggressive IV fluid resuscitation. Patient presented to our office on 12/20/2018 with significant anasarca, but no chest pain symptoms. In addition to difficulty with orthopnea and PND and was unable to lay down more than 60 degrees. Patient is diuresed approximately 25 pounds of water over the last 3 days time with an IV Bumex drip. Although he feels much better, he has some residual lower extremity edema, and was unable to completely lay down flat last evening. I recommended the patient continue his Bumex drip for 1 more days time, and he will test out whether or not he can lay down flat for at least a couple of hours during the day today and this evening. If he is able to do so, will proceed with left and right heart catheterization tomorrow morning. Patient will continue his 1500 cc fluid restriction, we will apply Leonides bandage wraps to his lower extremities to assist with venous return, and we will proceed with left and right heart catheterization tomorrow morning. We are unable to estimate his RVSP by echocardiogram on 12/12/2018. 2. Coronary artery disease: Patient has known coronary disease status post anterior wall cardial infarction followed by elective angioplasty and stenting to his left circumflex. Patient will continue baby aspirin and Plavix. 3. Hyperlipidemia: Continue Lipitor therapy. 4. Patient may eat today, and will become n.p.o. after midnight tonight for left and right heart catheterization tomorrow morning. Code Visit Inpatient E&M: 87266 Subs Hosp L2
[2018-12-23 11:15] LABS: Bedside Glucose 110 mg/dL (70-110)
--- NOTE | 2018-12-23 11:48 | PN_ITS ---
Patient Problems: Active and Suspected Problems (Last Reviewed 12/16/18 @ 18:13 by Meka Barraza) Acute on chronic diastolic heart failure (Acute) Subjective: Feels much better today after his 3 days of diuresis. Denies any shortness of breath and says that his swelling is significantly improved. Vitals/I&O's: Vital Signs Temp Pulse Resp BP Pulse Ox 98.5 F 95 16 147/72 H 93 12/23/18 09:22 12/23/18 09:22 12/23/18 09:22 12/23/18 09:22 12/23/18 09:22 Oxygen Delivery Method Room Air Weight: 274 lb 7.608 oz Body Mass Index (BMI) 41.1 Intake and Output for Last 24 Hours 12/21/18 12/22/18 12/23/18 23:59 23:59 23:59 Intake Total 1339.06 / 1339.06 1328.0 / 1328.0 120 / 120 Output Total 5250 / 5250 4740 / 4740 2950 / 2950 Balance -3910.94 / -3910.94 -3412.0 / -3412.0 -2830 / -2830 General: Alert, Oriented x3, Cooperative, No apparent distress HEENT: Atraumatic, PERRLA, EOMI, Normocephalic Oral: Moist Mucosa Neck: Supple, No JVD Lungs: Clear to auscultation, Normal air movement, No rhonchi, No wheeze, No rales Cardiovascular: Regular rate, Regular Rhythm, Normal S1, Normal S2, No murmurs Abdomen: Soft, Non Tender, Non-Distended, No Hepato-splenomegaly Extremities: Capillary Refill Less than 3 Seconds, Edema - Trace to +1 Skin: No rashes, No breakdown Neurological: Neuro grossly intact, Sensory exam intact to light touch and pain Psych/Mental Status: Normal Affect, Appropriate Laboratory Results 12/22/18 16:21: POC Glucose 130 H 12/22/18 21:25: POC Glucose 178 H 12/23/18 05:35: WBC 9.1, RBC 3.78 L, Hgb 10.1 L, Hct 32.6 L, MCV 86.2, MCH 26.7 L, MCHC 31.0 L, RDW Std Deviation 40.6, RDW Coeff of Rajendra 12.9, Plt Count 437, MPV 9.3, Immature Gran % (Auto) 0.300, Neut % (Auto) 77.8 H, Lymph % (Auto) 12.4 L, [place] % (Auto) 7.8, Eos % (Auto) 1.0, Baso % (Auto) 0.7, Absolute Neuts (auto) 7.1, Absolute Lymphs (auto) 1.13, Nucleated RBC % 0 12/23/18 05:35: Sodium 144, Potassium 3.8, Chloride 101, Carbon Dioxide 38.0 H, Anion Gap 5, BUN 49 H, Creatinine 1.51 H, Estim Creat Clear Calc 62.33, Est GFR (MDRD) Af Amer 63, Est GFR (MDRD) Non-Af 52 L, BUN/Creatinine Ratio 32.5 H, Glucose 125 H, Calcium 9.2 12/23/18 05:51: POC Glucose 119 H 12/23/18 11:09: POC Glucose 110 Current Medications Acetaminophen (Tylenol) 650 mg PO Q6H PRN PRN PRN Reason: Mild pain 1-3/Temp > 100.7 F Last Admin: 12/22/18 12:04 Dose: 650 mg Documented by: Aspirin (Aspirin, Baby) 81 mg PO DAILY@0800 [facility] Last Admin: 12/23/18 05:58 Dose: 81 mg Documented by: Atorvastatin Calcium (Lipitor) 80 mg PO QHS [facility] Last Admin: 12/22/18 21:27 Dose: 80 mg Documented by: Dextrose (D50w Syringe) 0 gm IV X1 PRN; Protocol PRN Reason: Hypoglycemia Enoxaparin Sodium (Lovenox) 40 mg SC DAILY@0600 [facility] Last Admin: 12/22/18 18:39 Dose: Not Given Documented by: Famotidine (Pepcid) 20 mg PO DAILY [facility] Last Admin: 12/23/18 08:27 Dose: 20 mg Documented by: Glucagon () 1 mg IM .X1 PRN PRN Reason: Hypoglycemia Hydralazine HCl (Apresoline) 25 mg PO TID [facility] Last Admin: 12/23/18 05:58 Dose: 25 mg Documented by: Hydralazine HCl (Apresoline Iv) 10 mg IV Q4H PRN PRN PRN Reason: SBP>180 mmhg Bumetanide 25 mg/ (Miscellaneous Information) 100 mls @ 2 mls/hr CONT INF .Q50H [facility] Last Infusion: 12/22/18 23:55 Dose: 0.5 mg/hr, 2 mls/hr Documented by: Sodium Chloride () 1,000 mls @ 0 mls/hr IV .Q0M [facility] Insulin Glargine (Lantus ([facility])) 30 units SC 1000,2200 [facility] Last Admin: 12/23/18 08:27 Dose: Not Given Documented by: Insulin Human Lispro (Humalog Kwikpen ([facility])) 0 unit SC ACHS [facility]; Protocol Last Admin: 12/23/18 11:13 Dose: Not Given Documented by: Magnesium Oxide (Mag-Ox 400) 400 mg PO DAILY [facility] Last Admin: 12/23/18 08:27 Dose: 400 mg Documented by: Melatonin (Melatonin) 3 mg PO QHS PRN PRN PRN Reason: INSOMNIA Last Admin: 12/22/18 21:27 Dose: 3 mg Documented by: Metoprolol Succinate (Toprol Xl (Beta Brittany)) 50 mg PO DAILY [facility] Last Admin: 12/23/18 05:58 Dose: 50 mg Documented by: Morphine Sulfate () 2 mg IV Q3H PRN PRN PRN Reason: Severe Pain (7-10/10) Nitroglycerin (Nitrostat) 0.4 mg SUBLINGUAL Q5M PRN PRN Reason: CARDIAC/CHEST PAIN Ondansetron HCl (Zofran) 4 mg IV Q8H PRN PRN PRN Reason: NAUSEA/VOMITING Oxycodone HCl (Oxyir) 5 mg PO Q4H PRN PRN PRN Reason: Moderate Pain (4-6/10) Last Admin: 12/21/18 13:13 Dose: 5 mg Documented by: Polyethylene Glycol (Miralax) 17 gm PO DAILY [facility] Last Admin: 12/23/18 08:27 Dose: Not Given Documented by: Prochlorperazine Edisylate (Compazine Iv) 5 mg IV Q4H PRN PRN PRN Reason: Breakthrough Nausea/Vomiting Sodium Chloride () 10 - 40 ml IV UD PRN PRN Reason: SALINE FLUSH Last Admin: 12/22/18 08:35 Dose: 10 ml Documented by: Medical Necessity - Tobacco Use Smoking Status: Never smoker Assessment/Plan All Active Problems (Last Reviewed 12/16/18 @ 18:13 by Meka Barraza) Acute on chronic diastolic heart failure (Acute) Scrotal edema (Acute) Bursitis (Resolved) 1. Acute on chronic exacerbation of diastolic CHF/CAD status post 3 stents/HTN/HLD -Echo on 12 12 with an EF 60% and stage I diastolic dysfunction, he was recently admitted with a right lower extremity injury and required antibiotics and IV fluids. -He presented to the [facility] office on Sunday and was directly admitted to the hospital where he will start drip and was diuresed over 20 pounds, and his down 13 L net -We will continue with the Bumex drip for 1 more day and cardiology could possibly take him for cardiac cath tomorrow -Continue with his statin, metoprolol, aspirin 2. DM 2 -Very poor control with an A1c of 15 on 12/08/2018 -Hold metformin and continue with Lantus 30 units twice daily -Siding scale insulin as well as Accu-Cheks AC at bedtime blood sugars well controlled currently 3. Recent admission for right lower extremity cellulitis -Right lower extreme looks okay, completed his Keflex yesterday 4. CORA -Baseline creatinine is 0.9, currently 1.5 likely secondary to the Bumex -We will continue to monitor DVT: Lovenox Code Visit Inpatient E&M: 54616 Subs Hosp L2
--- NOTE | 2018-12-23 12:39 | CASEMGMT ---
According to the [employer] website, the following are in-network tertiary facilities: [facility], [facility], [facility], [facility], [facility], [facility], and . [facility]
[2018-12-23] MEDS: Insulin Lispro 100 UNIT/ML INSULN.PEN SC ×2 (15:49→21:21)
[2018-12-23 16:06] LABS: Bedside Glucose 160 mg/dL (70-110)
[2018-12-23] MEDS: Atorvastatin Calcium 80 MG Tablet PO (21:22)
[2018-12-23 22:15] LABS: Bedside Glucose 227 mg/dL (70-110)
[2018-12-24] VITALS (27 sets, daily range): BP systolic 133–180; BP diastolic 59–99; PULSE 82–106; RESP 12–29; TEMP 37–37.3; O2SAT 90–99
[2018-12-24] MEDS: hydrALAZINE 25 MG Tablet PO ×3 (05:51→21:29)
[2018-12-24] MEDS: Aspirin 81 MG TAB.CHEW PO (05:51)
[2018-12-24] MEDS: Metoprolol(XL)Succ 50 MG Tablet PO (05:52)
--- NOTE | 2018-12-24 05:55 | EKG12_ITS ---
Test Reason : AM EKG Blood Pressure : / mmHG Vent. Rate : 098 BPM Atrial Rate : 098 BPM P-R Int : 178 ms QRS Dur : 090 ms QT Int : 368 ms P-R-T Axes : 052 073 087 degrees QTc Int : 469 ms Normal sinus rhythm Nonspecific ST abnormality Poor R- wave Progression Abnormal ECG Confirmed by JULIA NUNEZ, JAZMINE ([id number]), machinist job setter REX PONCE ([id number]) on 12/25/2018 2:22:59 PM Referred By: Alonzo Aviles Confirmed By:JAZMINE DUMONT MD
[2018-12-24] MEDS: Bumetanide 25 MG in CONTAINER,EMPTY 1 BAG CONT INF (06:03)
[2018-12-24 06:05] LABS: Anion Gap 5 (5-15); BUN 51 mg/dL (7-18); BUN/Creat Ratio 28.7 RATIO (10-20); Chloride 99 mmol/L (98-107); Creatinine, Serum 1.78 mg/dL (0.70-1.30); EST Glomerular Filtration Rate 43 mL/min (>60); Est Glom Filt Rate - Afr Amer 52 mL/min (>60); Estimated Creatinine Clearance 52.88 ml/min; Glucose 153 mg/dL (74-106); Potassium 3.7 mmol/L (3.5-5.1); Sodium Level 143 mmol/L (136-145)
[2018-12-24] MEDS: Clopidogrel Bisulfate 300 MG Tablet 600 MG PO (07:04)
[2018-12-24 07:05] LABS: Bedside Glucose 133 mg/dL (70-110)
--- NOTE | 2018-12-24 07:41 | PN_ITS ---
Patient Problems: Active and Suspected Problems (Last Updated 12/24/18 @ 07:44 by Gerardo Nielson MD) Acute on chronic diastolic heart failure (Acute) Subjective: Chief complaint: Follow-up after admission for acute on chronic diastolic CHF and worsening renal insufficiency. Patient seen and examined. No acute events overnight. He mentioned that his breathing is getting better every day and he has been on room air. Leg edema improved as well. Scrotal swelling also improved. Denies chest pain or palpitation. His vital signs are stable. - Physical Exam General: Alert, Oriented x3, Cooperative, No apparent distress HEENT: Atraumatic, PERRLA, EOMI, Normocephalic Oral: Moist Mucosa, No Gingival or Mucosal Lesions/ Ulcerations Neck: Supple, No JVD, Negative Carotid Bruits, Trachea Midline, Thyroid Normal Size and Texture Lungs: Clear to auscultation, Normal air movement, No rhonchi, No wheeze, No rales Cardiovascular: Regular rate, Regular Rhythm, Normal S1, Normal S2, PMI Normal Abdomen: Bowel Sounds Present, Soft, Non Tender, Non-Distended, No Hepato- splenomegaly Extremities: No clubbing, No cyanosis, Edema Skin: No rashes, No breakdown Lymphatic: No Cervical, Supraclavicular, or Inguinal Adenopathy Neurological: Cranial nerves II-XII grossly intact, Motor Exam 5/5 strength throughout Psych/Mental Status: Normal Affect, Appropriate, Alert and oriented to time, place, person, mood and affect Vital Signs Temp Pulse Resp BP Pulse Ox 99.1 F 100 14 153/87 H 94 12/24/18 05:43 12/24/18 06:52 12/24/18 05:43 12/24/18 05:43 12/24/18 05:43 Oxygen Delivery Method Room Air Weight: 270 lb 15.17 oz Body Mass Index (BMI) 41.1 Intake and Output for Last 24 Hours 12/22/18 12/23/18 12/24/18 23:59 23:59 23:59 Intake Total 1328.0 / 1328.0 720 / 720 180.1 / 180.1 Output Total 4740 / 4740 5510 / 5510 1250 / 1250 Balance -3412.0 / -3412.0 -4790 / -4790 -1069.9 / -1069.9 Laboratory Tests Past 24 Hrs 12/24/18 05:20 Sodium 143 Potassium 3.7 Chloride 99 Carbon Dioxide 39.0 H Anion Gap 5 BUN 51 H Creatinine 1.78 H Estim Creat Clear Calc 52.88 Est GFR (MDRD) Af Amer 52 L Est GFR (MDRD) Non-Af 43 L BUN/Creatinine Ratio 28.7 H Glucose 153 H Calcium 9.0 POC Glucose 12/24/18 12/23/18 12/23/18 06:58 21:20 15:47 POC Glucose 133 H 227 H 160 H 12/23/18 11:09 POC Glucose 110 Medical Necessity - Tobacco Use Smoking Status: Never smoker Assessment/Plan All Active Problems (Last Updated 12/24/18 @ 07:44 by Gerardo Nielson MD) Acute on chronic diastolic heart failure (Acute) This is a 48 years old male patient presented to the emergency room because of shortness of breath, leg edema and scrotal swelling and he was found to have acute on chronic diastolic CHF, developed acute kidney injury while in the hospital secondary to IV diuresis, underwent cardiac catheterization with PTCA/TREY to mid LAD x2 as well as TREY to diagonal branch and he had a recent history of right lower extremity cellulitis. #1 acute on chronic diastolic CHF: Patient was on IV Bumex drip. Started on oral Lasix, he is on hydralazine, metoprolol. He is not on LEONIDES inhibitors or ARBs because of cough. His kidney function started to go up. He denies any more shortness of breath, leg edema as well as scrotal edema significantly improved. His vital signs are stable, pulse ox is maintained on room air. He had 2D echocardiogram on December 12, 2018 that showed ejection fraction 60%, stage I diastolic dysfunction. Today, cardiac catheterization revealed ejection fraction of 55%. Cardiology on the case. Plan to potassium treatment, antici adair discharge home tomorrow. #2 acute kidney injury: Secondary to IV Bumex. Today's creatinine is 1.78, but has been worsening over the last couple of days. IV Bumex discontinued, plan to repeat BMP tomorrow morning. #3 CAD status post stents: Underwent cardiac catheterization, found to have 85% restenosis of the previously placed mid LAD stent, 75% restenosis of previously placed proximal LAD and 75% stenosis of diagonal branch status post PTCA/TREY x3. He is on aspirin, Plavix, statins, metoprolol and hydralazine. Plan as above. #4 recent history of right lower extremity cellulitis: Patient completed 10 days course of p.o. Keflex. Swelling and erythema around the right knee improved. He has been afebrile, no leukocytosis. #5 hypertension: Blood pressure stable, continue Lasix, hydralazine and metoprolol. #6 type 2 diabetes mellitus: Blood sugar stable, continue sliding scale as well as Lantus insulin. #7 hyperlipidemia: Continue statins. #8 DVT prophylaxis: SCDs, Leonides wraps. This note was generated with [employer] dictation software. It may contain incorrect words, spelling, and punctuation that were not noted in checking the note before signing. Code Visit Inpatient E&M: 48094 Subs Hosp L2
[2018-12-24 10:46] LABS: Blood Gas Specimen Type VEN; VBG BASE EXCESS 16 mmol/L (-1.0-3.5); VBG Bicarbonate 39 mmol/L (22-26); VBG Oxygen Content 40 mmol/L (23-33); VBG PO2 32 mmHg (25-40); VBG SO2 67 % (50-70); VBG pCO2 48.9 mmHg (41-51); VBG pH 7.51 (7.32-7.42)
[2018-12-24 10:46] LABS: Base Excess 9 mmol/L (-2 to +2); Bicarbonate 33.3 mmol/L (22-26); Blood Gas Specimen Type ART; PO2 58 mmHG (75-100); SO2 90 % (95-99); Total Carbon Dioxide 35 mmol/L; pCO2 50.3 mmHg (35-45); pH 7.43 (7.35-7.45)
[2018-12-24 10:46] LABS: ACT Activated Clotting Time 180 sec (74-137)
[2018-12-24 10:46] LABS: Blood Gas Specimen Type VEN; VBG BASE EXCESS 16 mmol/L (-1.0-3.5); VBG Bicarbonate 39 mmol/L (22-26); VBG Oxygen Content 40 mmol/L (23-33); VBG PO2 38 mmHg (25-40); VBG SO2 77 % (50-70); VBG pCO2 46.3 mmHg (41-51); VBG pH 7.53 (7.32-7.42)
--- NOTE | 2018-12-24 11:20 | EKG12_ITS ---
Test Reason : POST STENT Blood Pressure : / mmHG Vent. Rate : 082 BPM Atrial Rate : 082 BPM P-R Int : 172 ms QRS Dur : 098 ms QT Int : 382 ms P-R-T Axes : 056 068 069 degrees QTc Int : 446 ms Normal sinus rhythm Normal ECG When compared with ECG of 24-DEC-2018 05:50, MANUAL COMPARISON REQUIRED, DATA IS UNCONFIRMED Confirmed by DANNY NUNEZ, CHAPARRO ([id number]), assistant film editor REX PONCE ([id number]) on 12/27/2018 2:28:58 PM Referred By: Alonzo Aviles Confirmed By:CHAPARRO DELGADO MD
[2018-12-24] MEDS: Magnesium Oxide 400 MG Tablet PO (12:25)
[2018-12-24] MEDS: Famotidine 20 MG Tablet PO (12:26)
[2018-12-24] MEDS: Polyethylene Glycol 3350 17 GM PACKET PO (12:26)
[2018-12-24] MEDS: 0.9% Normal Saline 1,000 ML 150 ML IV (12:28)
[2018-12-24] MEDS: diazePAM 5 MG Tablet PO (12:32)
[2018-12-24 12:40] LABS: Bedside Glucose 113 mg/dL (70-110)
[2018-12-24 16:55] LABS: Bedside Glucose 147 mg/dL (70-110)
[2018-12-24] MEDS: Furosemide 40 MG Tablet PO (17:31)
[2018-12-24] MEDS: Atorvastatin Calcium 80 MG Tablet PO (21:29)
[2018-12-24] MEDS: Insulin Lispro 100 UNIT/ML INSULN.PEN SC (21:33)
[2018-12-24 21:40] LABS: Bedside Glucose 221 mg/dL (70-110)
[2018-12-24] MEDS: MELATONIN 3 MG TABLET PO (23:42)
[2018-12-25] VITALS (15 sets, daily range): BP systolic 141–164; BP diastolic 65–83; PULSE 87–98; RESP 13–25; TEMP 36.9–37.1; O2SAT 91–96; BMI 37.9
[2018-12-25 04:36] LABS: Absolute Lymphocyte Count 1.05 X10^3/uL (0.83-4.51); Absolute Neutrophil Count 7.8 X10^3/uL (2.0-7.7); Basophil# 0.08 X10^3/uL; Basophil% 0.8 % (0-1); Hematocrit 30.1 % (40-54); Hemoglobin 9.4 g/dL (13.0-16.5); Lymphocyte # 1.05 X10^3/ul (4.0); Lymphocyte % 10.7 % (19-41); Mean Corp Hgb Conc 31.2 g/dL (32-36); Mean Corpuscular Hgb 27.1 pg (27.0-32.0); Mean Corpuscular Volume 86.7 fL (80-94); Mean Platelet Vol. 9.7 fl (6.2-12.0); Monocyte# 0.79 X10^3/uL; Monocyte% 8.1 % (0-10); NRBC Flagged by Analyzer 0 % (0-5); Neutrophil # 7.76 X10^3/uL (2.7-7.7); Neutrophil % 79.1 % (47-70); Platelet Count 360 K/mm3 (150-450); RBC Distribution Width CV 12.9 % (11.6-14.6); RBC Distribution Width SD 40.5 fl (35.1-43.9); Red Blood Count 3.47 M/mm3 (4.6-6.2); White Blood Count 9.8 K/mm3 (4.4-11.0)
[2018-12-25 04:41] LABS: BUN 43 mg/dL (7-18); Creatinine, Serum 1.48 mg/dL (0.70-1.30); Glucose 142 mg/dL (74-106)
[2018-12-25 04:42] LABS: ALB/GLOB Ratio 0.4 RATIO (0.9-2.4); AST(SGOT) 15 U/L (15-37); Alanine Aminotransfer ALT/SGPT 13 U/L (16-61); Alkaline Phosphatase 59 U/L (45-117); Anion Gap 6 (5-15); BUN/Creat Ratio 29.1 RATIO (10-20); Calcium,Total 8.6 mg/dL (8.5-10.1); Chloride 102 mmol/L (98-107); Cholesterol 102 mg/dL (200); EST Glomerular Filtration Rate 53 mL/min (>60); Est Glom Filt Rate - Afr Amer 65 mL/min (>60); Globulin 4.8 g/dL (2.2-4.2); High Density Lipoprotein 32 mg/dL; Potassium 3.7 mmol/L (3.5-5.1); Protein, Total 6.8 g/dL (6.4-8.2); Sodium Level 145 mmol/L (136-145); Triglycerides 116 mg/dL; Very Low Density Lipoprotein 23 mg/dL (5-40)
[2018-12-25] MEDS: hydrALAZINE 25 MG Tablet PO (05:11)
[2018-12-25 06:55] LABS: Bedside Glucose 128 mg/dL (70-110)
[2018-12-25] MEDS: Aspirin 81 MG TAB.CHEW PO (08:35)
[2018-12-25] MEDS: Metoprolol(XL)Succ 50 MG Tablet PO (08:35)
[2018-12-25] MEDS: Famotidine 20 MG Tablet PO (08:36)
[2018-12-25] MEDS: Clopidogrel Bisulfate 75 MG Tablet PO (08:36)
[2018-12-25] MEDS: Furosemide 40 MG Tablet PO (08:36)
--- NOTE | 2018-12-25 08:36 | DCINST_ITS ---
- Discharge Diagnoses Current Active Problems: Current Active and Chronic Problems (Last Updated 12/24/18 @ 07:44 by Gerardo Nielson MD) Acute on chronic diastolic heart failure (Acute) You will use the following diet at home:: Calorie/Carbohydrate Controlled (specify 1200, 1400, etc) - 1800 leslie, Cardiac Your food should be the consistency of: Regular Discharge Activity: Return to Normal Activity Weight Bearing Status: Weight bearing as tolerated Call your doctor if you observe: Fever of 101 or Higher, Shortness of breath, Dizziness, Fainting spells, Chest pain, Increased palpitations (irregular heartbeat), Uncontrolled pain Instructions: Heart Failure, Coronary Stents Allergies/Adverse Reactions: Allergies lisinopril Adverse Reaction (Intermediate, Verified 12/20/18 13:55) Cough losartan Adverse Reaction (Intermediate, Verified 12/20/18 13:55) cough Medications to take at Discharge Aspirin [Aspirin, Baby] 81 mg PO DAILY@0800 09/28/14 Famotidine [Pepcid] 20 mg PO DAILY 09/28/14 Mag-Ox 400 1 tab PO DAILY 09/28/14 metformin 1,000 mg tablet 1,000 mg PO BID tab 04/20/17 nitroglycerin 0.4 mg sublingual tablet 0.4 mg SUBLINGUAL Q5-15M PRN 04/20/17 metoprolol succinate ER 50 mg tablet,extended release 24 hr 50 mg PO DAILY tab 12/16/18 Atorvastatin Calcium 80 mg PO QHS 12/20/18 Furosemide [Lasix] 40 mg PO BID 12/20/18 Insulin Glargine [Lantus SoloStar Pen] 30 units SUBCUT 1100,2200 12/20/18 Clopidogrel Bisulfate [Plavix] 75 mg PO DAILY #90 tab 12/25/18 hydrALAZINE [Apresoline] 25 mg PO TID #90 tab 12/25/18 The following prescriptions were given: hydrALAZINE [Apresoline] 25 mg PO TID #90 tab Transmission Status: Pending to [id number] Clopidogrel Bisulfate [Plavix] 75 mg PO DAILY #90 tab Transmission Status: Pending to [id number] Primary Care Physician: Joseph Ricks MD [Primary Care Provider] - Please follow up with your Primary Care Physician in: 1 week. Test Results: Test results from this visit will be discussed in further detail at your follow- up appointment, if applicable. Please Follow Up With: Everett Franks MD When: 2-3 weeks.
--- NOTE | 2018-12-25 08:53 | CRPHASE1 ---
Patient Communication Former Patient:: Phase II PHII Cardiac Rehab Discussed with Patient:: Yes Guide to Cardiac Rehab Given to Patient:: Yes Cardiac Rehab Facility Choice List Given to Patient:: Yes - [facility] Choice Program [facility] CR PHII:: Communication Given to CR, Refer to [facility] Security Delivery Specialist:: Everett Franks Sessions:: 36 sessions - 3 days/wk, 12 weeks Risk Factors/Lifestyle Smoking Status: Never smoker Hx Hypertension: Yes Hx Diabetes Mellitus Type 2: Yes Hx Obesity: Yes Height: 1.8 m Weight:: 122.9 kg BMI: 37.9 ETOH: No Caffeine: Yes Substance Abuse: No Family History: Family History (Last Reviewed 12/16/18 @ 18:13 by Meka Barraza) Father Myocardial infarction CAD (coronary artery disease) Sudden cardiac Mother Sick sinus syndrome Sister Diabetes Laboratory Values: Cardiac Rehab Phase I Labs Triglycerides 116 mg/dL (-199) 12/25/18 04:10 Cholesterol 102 mg/dL (200) 12/25/18 04:10 LDL Cholesterol 47 mg/dL (0-130) 12/25/18 04:10 HDL Cholesterol 32 mg/dL (40-) L 12/25/18 04:10 Phase I Education Given On:: [place], Nutrition, Antiplatelet medication, Diabetes - Type II Issues Affecting Care:: None Knowledge of Condition:: Yes Learning Preferences: Verbal Hospital Course Pain Description: Burning, Tightness Cardiac Cath Date:: 12/24/18 Medical/Surgical History Angina:: Yes Cardiomyopathy:: Yes Pulmonary:: Yes COPD:: Yes Diabetes Type II:: Yes Hypertension:: Yes CABG: Yes PTCA:: Yes Discharge/Home/Social Eval Discharge Disposition: Home Cardiac Rehabilitation Info Cardiac Rehabilitation Program Information: Cardiac Rehabilitation is important for patients like you who are recovering from a heart problem. Cardiac rehabilitation programs are recognized as integral to the continued care of the patient with coronary heart disease. The cardiac rehabilitation program is designed to optimize a patient's physical, psychological, and social functioning. Health children's zoo caretaker work in cardiac rehabilitation programs and assist you with getting the treatments you need to get stronger and healthier - like exercise, healthy eating habits, and medications. Cardiac rehabilitation has been show to help people with heart problems live longer and have better life enjoyment than people who do not go to cardiac rehabilitation. Please contact the Cardiac Rehabilitation Program at [facility] at in two weeks if you have not heard from them.
--- NOTE | 2018-12-25 08:57 | CRPH1.INSTRU ---
General Education CAD and cardiac anatomy and function:: Patient communicates acknowledgment Explanation of diagnoses and procedures:: Patient communicates acknowledgment Sign/Symptoms of SC:: Patient communicates acknowledgment Antiplatelet therapy: Not instructed Proper use of NTG-SL: Not instructed Emergency procedures and activation of EMS: Patient communicates acknowledgment Compliance of all prescribed medications: Not instructed Smoking Patient Nicotine/Smoking Risk Factors Are:: Never smoked Dyslipidemia Recommendations Include:: Lipid profile not available Overweight/Obesity Patient Overweight/Obesity Risk Factors Are:: Overweight = 26-29 Overweight/Obesity:: Patient communicates acknowledgment, Needs reinforcement Hypertension Recommendations Include:: Maintain BP <130/85, BP <130/80 if diabetic, DASH dietary guidelines, Decrease/maintain normal body weight Hypertension:: Needs reinforcement Heart Disease Patient Heart Disease Risk Factors Are:: Family history of heart disease < 65 years old, Previous cardiac event Heart Disease Response Code:: Patient communicates acknowledgment Diabetes Recommendations Include:: Maintain fasting blood sugars 70-110 md/dL, Maintain HgbA1c of 6% or less, Monitor blood sugar as prescribed, Diabetic dietary guidelines, Decrease/maintain body weight Diabetes:: Patient communicates acknowledgment Metabolic Syndrome Patient Metabolic Syndrome Risk Factors Are [3 of 5]:: Fasting blood sugar > 100 mg/dL, Waist circumference > 35 [female] or 40 [male], Hypertension Recommendations Include:: Patient is diabetic Metabolic Syndrome Response Code:: Patient communicates acknowledgment Sedentary Sedentary Response Code:: Patient communicates acknowledgment Stress Patient Stress Risk Factors Are:: Patient denies stress as a risk factor
--- NOTE | 2018-12-25 09:31 | CASEMGMT ---
RN RASHEL NOTE: Noted discharge order is in. RN CM to room to talk with pt to discuss any discharge needs/concerns. Pt has already been discharged. Call placed to [facility] and message left on Chavez's VM to inform her pt has been discharged. Phone number to this RN CM provided for her to return call if she has any questions/needs. Valentino ARVIZU RN CM
--- NOTE | 2018-12-25 10:00 | EKG12_ITS ---
Test Reason : AM Blood Pressure : / mmHG Vent. Rate : 089 BPM Atrial Rate : 089 BPM P-R Int : 170 ms QRS Dur : 100 ms QT Int : 380 ms P-R-T Axes : 046 071 082 degrees QTc Int : 462 ms Normal sinus rhythm Poor R-Wave Progression Confirmed by JULIA NUNEZ, JAZMINE ([id number]), copy editor ISRAEL MALIK ([id number]) on 01/01/2019 11:15:53 AM Referred By: Alonzo Aviles Confirmed By:JAZMINE DUMONT MD
--- NOTE | 2018-12-25 11:28 | DS.PCM_ITS ---
Discharge Date and Diagnosis Date of Admission: 12/20/18 Date of Discharge: 12/25/18 - Primary Discharge Diagnosis #1 acute on chronic diastolic CHF. #2 acute kidney injury. #3 CAD, underwent cardiac catheterization, found to have restenosis of previously placed mid LAD and proximal LAD stents as well as 75% stenosis of the diagonal branch, status post PTCA/TREY x3. #4 recent history of right lower extremity cellulitis, completed 10 days of Keflex. - Secondary Discharge Diagnosis Chronic Problems (Last Updated 12/24/18 @ 07:44 by Gerardo Nielson MD) Diabetes mellitus, type II (Chronic) History of non-ST elevation myocardial infarction (NSTEMI) (Chronic) Ischemic cardiomyopathy (Chronic) Stented coronary artery (Chronic 12/24/18) TREY to mid LAD ISR 2.25 X 38 Promus; TREY to mid LAD 2.5 X 28 Promus telescoped into previously placed stent (2.25); TREY to Proximal Diag 1 2.25 X 12 Promus; POBA to ostial Diag #1 with 2.0 X12 Emerge balloon, 85%--->20%, no dissection 12/24/18 per [facility] @ [facility] PTCA and TREY to LAD 06/23/13 @ [facility]; Promus stent to DX 07/17/13 @ [facility] History of left heart catheterization (Chronic) 06/23/2013 @ [facility] Atherosclerotic heart disease of [place] coronary artery without angina pectoris (Chronic) PTCA and TREY to LAD 06/23/13; Promus stent to DX 07/17/13 Obesity (Chronic) Hyperlipidemia (Chronic) Hypertension (Chronic) Hospital Course and Treatment Imaging Results: Clinical Impression(s) from Imaging Studies Chest X-Ray 12/20/18 14:08 IMPRESSION: Mild degree of CHF. Blunting of both costophrenic angles. Electronically Signed: Dario Ponce, at 14:36 EDT , Service support , Consultations 12/20/18 16:29 Consult: Onc/Wound/audit partner Routine Comment: Reason for Consult:: RLE Cellulitis Cardiology, Dr. Franks. Operations: None Procedures: Cardiac catheterization, EKG Summary of Care Provided: Patient seen and examined on the day of discharge and appeared to be stable to be discharged home. He denies any more shortness of breath, leg edema resolved. Denies any chest pain. His vital signs are stable. This is a 48 years old male patient presented to the emergency room because of shortness of breath, leg edema and scrotal swelling and he was found to have acute on chronic diastolic CHF, developed acute kidney injury while in the hospital secondary to IV diuresis, underwent cardiac catheterization with PTCA/TREY to mid LAD x2 as well as TREY to diagonal branch. #1 acute on chronic diastolic CHF: Treated with IV Bumex drip and continued on metoprolol and starting hydralazine 3 times daily. He was not on MEME inhibitors or ARBs because of cough. With IV Bumex drip, kidney function worsened and patient went into acute kidney injury. With IV diuresis, leg edema and scrotal swelling significantly improved. Patient was able to come off oxygen. He had 2D echocardiogram on December 12, 2018 that showed ejection fraction 60%, stage I diastolic dysfunction. During this admission, cardiac catheterization revealed ejection fraction of 55%. Patient discharged home on Lasix 40 g p.o. twice daily, hydralazine 25 mg p.o. 3 times daily and same dose of metoprolol. #2 acute kidney injury: Secondary to IV Bumex. On admission, creatinine was 1.38 and it went up to 1.78 with IV Bumex drip. On the day of discharge and after discontinuing IV Bumex drip, creatinine came down to 1.48. #3 CAD status post stents: Underwent cardiac catheterization, found to have 85% restenosis of the previously placed mid LAD stent, 75% restenosis of previously placed proximal LAD and 75% stenosis of diagonal branch status post PTCA/TREY x3. Discharged on aspirin, Plavix, statins, metoprolol and hydralazine. #4 recent history of right lower extremity cellulitis: Completed 10 days course of p.o. Keflex. Swelling and erythema of the right lower extremity around the right knee is clinically improved. #5 hypertension: Blood pressure stable, continued on Lasix, hydralazine and metoprolol. Patient discharged home in a stable medical condition, discharged on Lasix, met oprolol, hydralazine, Plavix, continued on his previous home medications, plan to follow-up with PCP in 1 week and follow-up with cardiology in 2 to 3 weeks. This note was generated with [employer] dictation software. It may contain incorrect words, spelling, and punctuation that were not noted in checking the note before signing. - Physical Exam General: Alert, Oriented x3, Cooperative, No apparent distress HEENT: Atraumatic, PERRLA, EOMI, Normocephalic Oral: Moist Mucosa, No Gingival or Mucosal Lesions/ Ulcerations Neck: Supple, No JVD, Negative Carotid Bruits, Trachea Midline, Thyroid Normal Size and Texture Lungs: Clear to auscultation, Normal air movement, No rhonchi, No wheeze, No rales Cardiovascular: Regular rate, Regular Rhythm, Normal S1, Normal S2, PMI Normal Abdomen: Bowel Sounds Present, Soft, Non Tender, Non-Distended, No Hepato- splenomegaly, Obese Extremities: No clubbing, No cyanosis, Edema - Trace edema. Skin: No rashes, No breakdown Lymphatic: No Cervical, Supraclavicular, or Inguinal Adenopathy Neurological: Cranial nerves II-XII grossly intact, Neuro grossly intact Psych/Mental Status: Normal Affect, Appropriate Vital Signs Temp Pulse Resp BP Pulse Ox 98.4 F 97 13 148/66 H 94 12/25/18 09:15 12/25/18 09:15 12/25/18 09:15 12/25/18 09:15 12/25/18 09:15 Oxygen Flow Rate (L/min) 2 Oxygen Delivery Method Room Air Weight: 270 lb 15.17 oz Body Mass Index (BMI) 41.1 Intake and Output for Last 24 Hours 12/23/18 12/24/18 12/25/18 23:59 23:59 23:59 Intake Total 720 / 720 1841.9 / 1841.9 200 / 200 Output Total 5510 / 5510 2400 / 2400 1000 / 1000 Balance -4790 / -4790 -558.1 / -558.1 -800 / -800 Laboratory Tests Past 24 Hrs 12/25/18 12/25/18 04:10 04:10 WBC 9.8 RBC 3.47 L Hgb 9.4 L Hct 30.1 L MCV 86.7 MCH 27.1 MCHC 31.2 L RDW Std Deviation 40.5 RDW Coeff of Rajendra 12.9 Plt Count 360 MPV 9.7 Immature Gran % (Auto) 0.300 Neut % (Auto) 79.1 H Lymph % (Auto) 10.7 L [place] % (Auto) 8.1 Eos % (Auto) 1.0 Baso % (Auto) 0.8 Absolute Neuts (auto) 7.8 H Absolute Lymphs (auto) 1.05 Nucleated RBC % 0 Sodium 145 Potassium 3.7 Chloride 102 Carbon Dioxide 37.0 H Anion Gap 6 BUN 43 H Creatinine 1.48 H Estim Creat Clear Calc 63.60 Est GFR (MDRD) Af Amer 65 Est GFR (MDRD) Non-Af 53 L BUN/Creatinine Ratio 29.1 H Glucose 142 H Calcium 8.6 Total Bilirubin 0.30 AST 15 ALT 13 L Alkaline Phosphatase 59 Total Protein 6.8 Albumin 2.0 L Globulin 4.8 H Albumin/Globulin Ratio 0.4 L Triglycerides 116 Cholesterol 102 LDL Cholesterol 47 VLDL Cholesterol 23 HDL Cholesterol 32 L POC Glucose 12/25/18 12/24/18 12/24/18 06:51 21:32 16:49 POC Glucose 128 H 221 H 147 H 12/24/18 12:22 POC Glucose 113 H Discharge Activity: Return to Normal Activity Weight Bearing Status: Weight bearing as tolerated Call your doctor if you observe: Fever of 101 or Higher, Shortness of breath, Dizziness, Fainting spells, Chest pain, Increased palpitations (irregular heartbeat), Uncontrolled pain Home Medications: Medications to take at Discharge Aspirin [Aspirin, Baby] 81 mg PO DAILY@0800 09/28/14 Famotidine [Pepcid] 20 mg PO DAILY 09/28/14 Mag-Ox 400 1 tab PO DAILY 09/28/14 metformin 1,000 mg tablet 1,000 mg PO BID tab 04/20/17 nitroglycerin 0.4 mg sublingual tablet 0.4 mg SUBLINGUAL Q5-15M PRN 04/20/17 metoprolol succinate ER 50 mg tablet,extended release 24 hr 50 mg PO DAILY tab 12/16/18 Atorvastatin Calcium 80 mg PO QHS 12/20/18 Furosemide [Lasix] 40 mg PO BID 12/20/18 Insulin Glargine [Lantus SoloStar Pen] 30 units SUBCUT 1100,2200 12/20/18 Clopidogrel Bisulfate [Plavix] 75 mg PO DAILY #90 tab 12/25/18 hydrALAZINE [Apresoline] 25 mg PO TID #90 tab 12/25/18 Following Prescrptions Were Given to Patient: hydrALAZINE [Apresoline] 25 mg PO TID #90 tab Transmission Status: Received by [id number] Clopidogrel Bisulfate [Plavix] 75 mg PO DAILY #90 tab Transmission Status: Received by [id number] Primary Care Physician: Joseph Ricks MD [Primary Care Provider] - Please follow up with your Primary Care Physician in: 1 week. Please Follow Up With: Everett Franks MD When: 2-3 weeks. Patient Instructions: Coronary Stents, Heart Failure Disposition: Home Minutes spent on discharge:: 32 Patient Condition:: Stable Medical Necessity - Tobacco Use Smoking Status: Never smoker Meaningful Use Info Meaningful Use Diagnoses (Choose all that apply): CHF - CHF MEME/ARB ordered at discharge?: No Reason MEME/ARB not ordered?: Worsening renal disease Documented LVEF (%): 55 Code Visit Inpatient E&M: 37021 Disch Hosp
--- NOTE | 2018-12-25 12:11 | PCM.PN.CARD ---
Subjectve: Patient doing very well this morning. No 24-hour events. Telemetry negative. EKG shows normal sinus rhythm, no acute changes. Patient feels markedly better since admission. Right groin is clean/dry/intact, without evidence of thrills, bruits or hematoma. Hemoglobin and creatinine within nominal limits. Objective: Vital Signs Temp Pulse Resp BP Pulse Ox 98.4 F 97 13 148/66 H 94 12/25/18 09:15 12/25/18 09:15 12/25/18 09:15 12/25/18 09:15 12/25/18 09:15 Oxygen Flow Rate (L/min) 2 Oxygen Delivery Method Room Air Weight: 270 lb 15.17 oz Body Mass Index (BMI) 41.1 Intake and Output for Last 24 Hours 12/23/18 12/24/18 12/25/18 23:59 23:59 23:59 Intake Total 720 / 720 1841.9 / 1841.9 200 / 200 Output Total 5510 / 5510 2400 / 2400 1000 / 1000 Balance -4790 / -4790 -558.1 / -558.1 -800 / -800 General: Awake, Alert, Oriented x 3 HEENT: PERRL, EOMI, Sclera Non Icteric Neck: Supple, Good ROM, No Lymph Node Enlargement Lungs: Clear to auscultation Cardiovascular: Regular Rhythm, Normal S1, Normal S2, No Murmurs, No Rubs, No Gallops Vascular: No Carotid Bruits, Normal Femoral Pulses, Normal Radial Pulses, Normal Dorsalis Pedal Pulse, Normal Posterior Tibial Pulses Abdomen: Bowel Sounds Present, Soft, Non Tender, No HSM, No Organomegaly Extremities: No Cyanosis, No Clubbing, No edema Neurological: No Focal Motor or Sensory Deficit 12/25/18 04:10: WBC 9.8, RBC 3.47 L, Hgb 9.4 L, Hct 30.1 L, MCV 86.7, MCH 27.1, MCHC 31.2 L, Plt Count 360, MPV 9.7, Immature Gran % (Auto) 0.300, Neut % (Auto) 79.1 H, Lymph % (Auto) 10.7 L, Bleckley % (Auto) 8.1, Eos % (Auto) 1.0, Baso % (Auto) 0.8, Absolute Neuts (auto) 7.8 H, Nucleated RBC % 0 12/25/18 04:10: Sodium 145, Potassium 3.7, Chloride 102, Carbon Dioxide 37.0 H, Anion Gap 6, BUN 43 H, Creatinine 1.48 H, Est GFR (MDRD) Af Amer 65, Est GFR (MDRD) Non-Af 53 L, BUN/Creatinine Ratio 29.1 H, Glucose 142 H, Calcium 8.6, Total Bilirubin 0.30, Triglycerides 116, Cholesterol 102, LDL Cholesterol 47, VLDL Cholesterol 23, HDL Cholesterol 32 L Rhythm: EKG: ECHO: Stress Test: Cardiac Cath: PCI: CT Surgery: Holter monitor: EPS: PPM: CXR: Chest CT Scan: Medical Necessity - Tobacco Use Smoking Status: Never smoker Assessment/Plan 1. Congestive heart failure: Patient has presented with significant congestive heart failure after undergoing an injury to his right lower extremity, requiring admission several days prior, with IV antibiotics and aggressive IV fluid resuscitation. Patient presented to our office on 12/20/2018 with significant anasarca, but no chest pain symptoms. In addition to difficulty with orthopnea and PND and was unable to lay down more than 60 degrees. Patient's Bumex drip was discontinued after approximately 25 pound weight loss over the weekend. He underwent diagnostic coronary angiogram yesterday which demonstrated widely patent left circumflex stent, and several tandem in-stent restenosis in his LAD stents. He underwent angioplasty and stenting x3 to his LAD and diagonal, 2 in the LAD, and 1 of the diagonal #1 with an excellent result. His right groin is clean/dry/intact, and his hemoglobin and creatinine are within nominal limits. Patient will continue his 1500 cc fluid restriction, we will apply Leonides bandage wraps to his lower extremities to assist with venous return, and we will proceed with left and right heart catheterization tomorrow morning. We are unable to estimate his RVSP by echocardiogram on 12/12/2018. In addition he will go back on his Lasix 40 mg p.o. twice daily as he appeared to do well with this prior to his admission. He will follow-up with us in the office as scheduled. 2. Coronary artery disease: Continue aspirin and Plavix. The patient will be enrolled in cardiac rehab. Recommended he be off work for at least 1 week's time to allow his groin to heal. 3. Hyperlipidemia: Continue Lipitor therapy. 4. Patient may be discharged home today and follow-up with Dr. Franks going forward. Thank you very much for allowing us to participate in the cardiac care of your patient. Code Visit Inpatient E&M: 09372 Subs Hosp L2
--- NOTE | 2018-12-26 15:27 | CASEMGMT ---
RADHA CM DC F/U phone call note DC Date: 12/25/18 DC Disposition: Home Lace/Strata: 21/07 Attempted call to home. No answer and no message machine last picker. Hector ARVIZU RN ACM
--- NOTE | 2019-01-02 09:58 | CL.I_ITS ---
Patient Name: YOSEPH PERSAUD Study Date: 12/24/2018 Performing: Everett Franks MD Ht: 70.86 inches 180 cm : 1970 Wt: 271.17 lbs 123 kg Age: 48 Gender: male BSA: 2.4 PROCEDURE(S) PERFORMED ZF34-ORV/LHC/COR/LV IB14-PTQ W OR WO PTCA, SINGLE CORONARY ARTERY DB24-PIN W OR WO PTCA, EACH ADD'L ARTERY, SAME MAJOR CLINICAL PROFILE AND CO-MORBIDITIES Indications: Stable Known CAD, LV Dysfunction Heart Failure: NYHA Class: 3, Newly Diagnosed: No, Heart Failure Type: Systolic Stress/Imaging Stress/Image Study Performed: No Angina Classification Anginal Classification w/in 2 Weeks: No symptoms CAD Presentations: Other: Dyspnea on exertion, acute on chronic CHF. Comorbidities/Risk Factors: Hypertension Dyslipidemia Prior CHF Prior [facility] Prior PCI Diabetes Mellitus: Diabetes Therapy: Insulin CONCLUSIONS Global LV systolic dysfunction- Mild LVEF: by LV gram 55 % Normal Left Ventricular End Diastolic Pressure The patient has pulmonary hypertension which is mild. Right heart pressures - mildly elevated Single vessel CAD of the LAD and DIAG Successful PTCA/TREY mid LAD ISR with a 2.25 x 38 Promus Synergy, post dilated with a 2.5 x 8 NC Ballo on; 75%-->0%, no dissection. Successful PTCA/TREY mid LAD with a 2.5 x 28 Promus Synergy, telescoped into previously placed stent ( 2.25 stent), post dilated proximally with a 3.0 and 3.5 x 8 NC balloon; 85%-->0%, no dissection. Successful PTCA/TREY Proximal DIAG#1 with a 2.25 x 12 Promus Synergy; 75%-->0%, no dissection. Successful PCI with PTCA to the ostial DIAG #1 with a 2.0 x 12 Emerge balloon; 85%-->20%, no dissecti on. Would not pursue stenting of ostial DIAG given small vessel, good result and lack of symptoms. RECOMMENDATIONS Highly recommend quitting all tobacco products Follow up with primary hotel clerk Risk factor modification ASA Indefinitley Plavix for at least 12 months Routine post interventional care Refer for Outpatient Cardiac Rehab Manual sheath removal per protocol Follow up with Dr. Franks Successful Mynx Control closure of RFA. Stress test in 4 weeks to eval PDA lesion. DESCRIPTION OF PROCEDURE The patient arrived to the procedure lab. The risks and benefits of the procedure as well as a full d escription of our services here and lack of surgical backup were fully explained to the patient and/o r their significant other prior to the catheterization. The Timeout was completed, verifying the zak ect patient and procedure. The patient's procedural site was prepped and draped in the usual fashion. Local anesthetic was given subcutaneously to right groin region with Lidocaine 2%. Using a modified Seldinger technique, arterial access was obtained via the right femoral artery, a 4Fr sheath was inse rted. Venous access was obtained via the right femoral vein, a 7Fr sheath was inserted. A 7Fr thermal dilution catheter was inserted and right heart pressures were recorded, it was then advanced to PA p osition for cardiac outputs. Left Ventriculography was performed in MAYES projection using a 4 Fr. Pigt ail catheter. O2 saturations were then obtained. The Thermal dilution catheter was then removed. LV to AO pullback pressures were then recorded. Left Coronary Artery selective angiography w as performed in multiple views using a 4 Fr. JL5 catheter. Right Coronary Artery selective angiograph y was then performed in multiple views using a 4 Fr. 3DRC catheterThe images were reviewed and option s discussed. A decision was then made to proceed with an Intervention, IVUS or other adjunct procedur e. Arterial sheath was exchanged for a 6 Fr Sheath. EBU 3.75 Guide catheter was inserted and engaged into the LCA. Angiogram performed pre balloon dilatation. BMW Guide wire was advanced to the LAD. 2. 0x12 Emerge Balloon catheter was advanced across lesion in the LAD, mid. PTCA balloon inflated at 6 a tms for 12 secs. PTCA balloon inflated at 8 atms for 10 secs. PTCA balloon inflated at 8 atms for 12 secs. PTCA balloon inflated at 8 atms for 9 secs. Angiogram performed post balloon dilatation. BMW #2 Guide wire was inserted as a aaliyah wire into Diagonal #1 2.0 x12 Emerge Balloon catheter was advance d across lesion in the first diagonal, proximal. PTCA balloon inflated at 6 atms for 6 secs. PTCA bal loon inflated at 6 atms for 6 secs. 2.25 x 12 Synergy Drug Eluting stent was advanced across the lesi on in the first diagonal, proximal. Angiogram performed post stent deployment. 2.25 x 38 synergy Drug Eluting stent was advanced across the lesion in the LAD, mid. 2.5 x 12 NC emerge Balloon catheter was inserted post stent. 2.5 x 28 Drug Eluting stent was advanced across the lesion in the L AD, mid. 3.0 x 8 NC Emerge Balloon catheter was inserted post stent. 3.5 x 8 NC Emerge Balloon cathet er was inserted post stent. 2.0 x 12 Emerge Balloon catheter was advanced across lesion in the first diagonal, proximal. PTCA balloon inflated at 6 atms for 32 secs. Angiogram performed post balloon dil atation. The arterial sheath was pulled and a Mynx closure device was deployed for hemostasis. The venous sheath was then pulled and manual compression applied until hemostasis achieved CORONARY ANGIOGRAPHY DOMINANCE: Right Dominant LEFT HEART ASSESSMENT Left Ventricular Ejection Fraction: by LV Gram 55 % Depressed Left Ventricular systolic function LVEDP: 10 mmHg Anterior Hypokinesis - Mild RIGHT HEART ASSESSMENT Thermal CO: 8.5 Thermal CI: 3.54 Ana CO: 10.1 Ana CI: 4.21 PW: 15/9 7 PA: 32/11 21 RV: 39/0 7 RA: 5/4 2 PVR: 132 SVR: 979 LEFT MAIN: Angiographically normal LEFT ANTERIOR DESCENDING ARTERY: PROX LAD: Previously placed stent has an instent 75 % restenosis MID LAD: Previously placed stent has an instent 85 % restenosis DIAGONAL 1: Proximal - 75 % Stenosis CIRCUMFLEX ARTERY: MID CIRC: Previously placed stent is patent RIGHT CORONARY ARTERY: Angiographically normal RT PDA: Mid - Moderate luminal irregularities up to 50% INTERVENTION INFORMATION LESION SITE: LAD (Mid) Lesion Complexity: High/C, lesion at bifurcation: Yes, thrombus present: No, lesion length: 66 mm, cu lprit lesion: Yes Pre Stenosis: 85 % Pre intervention CRISTI flow: 3 PROCEDURE: Drug Eluting Stent with pre and post dilatation Post Stenosis: 0 % Post intervention CRISTI flow: 3 Lesion Devices: Innovate/Protecttronic 6 Fr EBU3.75 100cm Guide Catheter Jonathan Sci EMERGE MR 2.00x12 BALLOON Pop .014 BMW [place] Straight 190cm Jonathan Sci Synergy MR TREY 2.25x38 Jonathan Sci NC EMERGE MR 2.50x12 BALLOON Jonathan Sci Synergy MR TREY 2.50x28 Jonathan Sci NC EMERGE MR 3.00x08 BALLOON Jonathan Sci NC EMERGE MR 3.50x08 BALLOON LESION SITE: 1st Diagonal (Proximal) Lesion Complexity: Non-High/Non-C, lesion at bifurcation: Yes, thrombus present: No, lesion length: 1 2 mm, culprit lesion: No Pre Stenosis: 75 % Pre intervention CRISTI flow: 3 Post Stenosis: 0 % Post intervention CRISTI flow: 3 Lesion Devices: Medtronic 6 Fr EBU3.75 100cm Guide Catheter Jonathan Sci EMERGE MR 2.00x12 BALLOON Pop .014 BMW [place] Straight 190cm Jonathan Sci Synergy MR TREY 2.25x12 COMPLICATIONS No Complications PROCEDURE MEDICATIONS Versed 1 mg IV Oxygen: 2 L/min via nasal cannula Heparin 6000 unit(s) IV 12/24/2018 09:48:00 Nitro 300 mcg IC 12/24/2018 09:51:28 Nitro 200 mcg IC 12/24/2018 10:08:20 Nitro 200 mcg IC 12/24/2018 10:23:45 IV Bolus: .9 NaCl ml total 12/24/2018 09:46:29 IV Bolus: .9 NaCl 250 ml total 12/24/2018 10:59:08 SUMMARY OF HEMODYNAMIC DATA Time AIR REST ECG 09:01:22 RA 5/4 (2) SV 09:30:34 RV 39/0, 7 09:30:50 PW 15/ (7) PV 09:31:19 PA 32/11 (21) PA 09:31:30 LV 156/-6, 11 09:36:19 LV 153/-6, 10 09:36:25 LV 155/-7, 12 09:36:41 PW 20/ (9) 09:36:41 LV 156/-6, 12 09:36:56 RV 45/0, 8 09:36:56 LV 157/-18, 11 09:38:33 LVp 162/-17, 15 09:38:38 AOp 160/74 (108) 09:38:43 AO 159/74 (106) SA 09:38:46 Type SV CO (l/m) CI (l/m/ HR Time AIR REST Thermal 91.40 8.50 3.54 93 09:01:22 Ana 108.60 10.10 4.21 93 09:01:22 Label % O2 Pres/Loc Time AIR REST PA 67 PA 09:54:04 AO 90 PV 09:54:16 Signed By Everett Franks MD On 12/24/2018 11:00:43 Signed By Everett Franks MD On 12/24/2018 11:00:30 Everett Franks MD
== END 2018-12-25 09:25 | disposition home or self-care (01) | DRG 247 ==
LOC: ED 14:22 → PCU 12-21 07:12 → ICU 12-24 10:00
PROVIDERS: Family Medicine; Specialist; Student in an Organized Health Care Education/Training Program; Admitting Provider Internal Medicine; Emergency Provider Emergency Medicine; Family Provider Family Medicine; PCP Family Medicine; Referring Provider Internal Medicine; Visit Provider Hospitalist
DX: I11.0 Hypertensive heart disease with heart failure (principal); N17.9 Acute kidney failure, unspecified; T82.855A Stenosis of coronary artery stent, initial encounter; Z68.41 Body mass index [BMI] 40.0-44.9, adult; L03.115 Cellulitis of right lower limb; I50.33 Acute on chronic diastolic (congestive) heart failure; E11.65 Type 2 diabetes mellitus with hyperglycemia; I25.10 Atherosclerotic heart disease of native coronary artery without angina pectoris; E66.01 Morbid (severe) obesity due to excess calories; I25.2 Old myocardial infarction; E78.5 Hyperlipidemia, unspecified; T50.1X5A Adverse effect of loop [high-ceiling] diuretics, initial encounter; Z95.5 Presence of coronary angioplasty implant and graft; Z79.4 Long term (current) use of insulin
CPT/HCPCS: 36415; 71045; 80048; 80053; 80061; 80076; 82570; 82803; 82962; 83735; 83880; 84100; 84156; 84443; 84484; 85025; 85347; 92928; 92929; 93005; 93460; 97116; 97161; 97166; 97530; 97802; 99152; 99153; 99285; C1760; J7030; J7040; Q9967; A4216; C1725; C1751; C1769; C1874; C1887; C1894; C9600; C9601

== ENCOUNTER → 2019-01-16 14:33 | Outpatient (CLI) | payer OTHER, SELFPAY ==
[2018-12-25 08:56] VITALS: BMI 37.9
[2019-01-06 13:30] VITALS: BMI 39.9
[2019-01-16 16:16] LABS: Absolute Lymphocyte Count 1.37 X10^3/uL (0.83-4.51); Absolute Neutrophil Count 5.6 X10^3/uL (2.0-7.7); Basophil# 0.06 X10^3/uL; Basophil% 0.8 % (0-1); Eosinophil# 0.14 X10^3/uL; Eosinophils% 1.8 % (0-5); Hematocrit 30.5 % (40-54); Hemoglobin 9.1 g/dL (13.0-16.5); Lymphocyte # 1.37 X10^3/ul (4.0); Lymphocyte % 17.3 % (19-41); Mean Corp Hgb Conc 29.8 g/dL (32-36); Mean Corpuscular Hgb 25.9 pg (27.0-32.0); Mean Corpuscular Volume 86.6 fL (80-94); Mean Platelet Vol. 10.3 fl (6.2-12.0); Monocyte# 0.74 X10^3/uL; Monocyte% 9.3 % (0-10); NRBC Flagged by Analyzer 0 % (0-5); Neutrophil # 5.61 X10^3/uL (2.7-7.7); Neutrophil % 70.5 % (47-70); Platelet Count 287 K/mm3 (150-450); RBC Distribution Width CV 14.6 % (11.6-14.6); RBC Distribution Width SD 45.7 fl (35.1-43.9); Red Blood Count 3.52 M/mm3 (4.6-6.2); White Blood Count 7.9 K/mm3 (4.4-11.0)
[2019-01-16 16:58] LABS: AST(SGOT) 15 U/L (15-37); Alanine Aminotransfer ALT/SGPT 16 U/L (16-61); Albumin, Serum 3.2 g/dL (3.2-5.0); Alkaline Phosphatase 56 U/L (45-117); Anion Gap 5 (5-15); BUN 52 mg/dL (7-18); BUN/Creat Ratio 34.9 RATIO (10-20); Bilirubin, Direct 0.12 mg/dL (0.00-0.30); Calcium,Total 9.1 mg/dL (8.5-10.1); Chloride 104 mmol/L (98-107); Creatinine, Serum 1.49 mg/dL (0.70-1.30); EST Glomerular Filtration Rate 53 mL/min (>60); Est Glom Filt Rate - Afr Amer 64 mL/min (>60); Globulin 4.9 g/dL (2.2-4.2); Glucose 91 mg/dL (74-106); Magnesium 2.2 mg/dL (1.6-2.6); Protein, Total 8.1 g/dL (6.4-8.2); Sodium Level 141 mmol/L (136-145)
== END ==
PROVIDERS: Family Provider Family Medicine; PCP Family Medicine; Referring Provider Internal Medicine Cardiovascular Disease; Visit Provider Internal Medicine Cardiovascular Disease
DX: I25.5 Ischemic cardiomyopathy (principal); E78.00 Pure hypercholesterolemia, unspecified; E11.9 Type 2 diabetes mellitus without complications
CPT/HCPCS: 36415; 80048; 80076; 82043; 83735; 85025

== ENCOUNTER → 2019-03-11 05:57 | Outpatient (CLI) | payer OTHER, SELFPAY ==
[2018-12-25 08:56] VITALS: BMI 37.9
[2019-01-16 14:48] VITALS: BMI 39.6
[2019-03-11 07:02] LABS: Anion Gap 3 (5-15); BUN 55 mg/dL (7-18); BUN/Creat Ratio 34.2 RATIO (10-20); Calcium,Total 9.1 mg/dL (8.5-10.1); Chloride 106 mmol/L (98-107); Creatinine, Serum 1.61 mg/dL (0.70-1.30); EST Glomerular Filtration Rate 48 mL/min (>60); Est Glom Filt Rate - Afr Amer 59 mL/min (>60); Glucose 140 mg/dL (74-106); Potassium 4.2 mmol/L (3.5-5.1); Sodium Level 144 mmol/L (136-145)
== END ==
PROVIDERS: Family Provider Family Medicine; PCP Family Medicine; Referring Provider Physician Assistant Medical; Visit Provider Physician Assistant Medical
DX: I25.5 Ischemic cardiomyopathy (principal)
CPT/HCPCS: 36415; 80048

== ENCOUNTER → 2019-09-09 06:34 | Outpatient (CLI) | payer OTHER, SELFPAY ==
[2018-12-25 08:56] VITALS: BMI 37.9
[2019-03-11 11:28] VITALS: BMI 38.7
[2019-09-09 07:41] LABS: Hematocrit 34.8 % (40-54); Hemoglobin 11.1 g/dL (13.0-16.5); Mean Corp Hgb Conc 31.9 g/dL (32-36); Mean Corpuscular Hgb 27.2 pg (27.0-32.0); Mean Corpuscular Volume 85.3 fL (80-94); Mean Platelet Vol. 11.3 fl (6.2-12.0); Platelet Count 188 K/mm3 (150-450); RBC Distribution Width CV 13.2 % (11.6-14.6); RBC Distribution Width SD 40.9 fl (35.1-43.9); Red Blood Count 4.08 M/mm3 (4.6-6.2); White Blood Count 5.8 K/mm3 (4.4-11.0)
[2019-09-09 07:55] LABS: Anion Gap 8 (5-15); BUN 63 mg/dL (7-18); Chloride 105 mmol/L (98-107); Creatinine, Serum 1.91 mg/dL (0.70-1.30); EST Glomerular Filtration Rate 40 mL/min (>60); Est Glom Filt Rate - Afr Amer 48 mL/min (>60); Glucose 193 mg/dL (74-106); Sodium Level 144 mmol/L (136-145)
[2019-09-09 10:26] LABS: Absolute Lymphocyte Count 1.22 X10^3/uL (0.83-4.51); Absolute Neutrophil Count 3.7 X10^3/uL (2.0-7.7); Basophil# 0.05 X10^3/uL; Basophil% 0.9 % (0-1); Eosinophil# 0.17 X10^3/uL; Lymphocyte # 1.22 X10^3/ul (4.0); Lymphocyte % 21.8 % (19-41); Monocyte# 0.48 X10^3/uL; Monocyte% 8.6 % (0-10); NRBC Flagged by Analyzer 0 % (0-5); Neutrophil # 3.66 X10^3/uL (2.7-7.7); Neutrophil % 65.3 % (47-70)
[2019-09-09 10:56] LABS: AST(SGOT) 21 U/L (15-37); Alanine Aminotransfer ALT/SGPT 27 U/L (16-61); Albumin, Serum 3.5 g/dL (3.2-5.0); Alkaline Phosphatase 67 U/L (45-117); Cholesterol 200 mg/dL (200); Globulin 4.1 g/dL (2.2-4.2); High Density Lipoprotein 30 mg/dL; Magnesium 2.1 mg/dL (1.6-2.6); Protein, Total 7.6 g/dL (6.4-8.2); Triglycerides 463 mg/dL
== END ==
PROVIDERS: PCP Family Medicine; Referring Provider Nurse Practitioner Family; Visit Provider Nurse Practitioner Family
DX: D64.9 Anemia, unspecified (principal); I25.10 Atherosclerotic heart disease of native coronary artery without angina pectoris; Z98.61 Coronary angioplasty status; E11.65 Type 2 diabetes mellitus with hyperglycemia; N28.9 Disorder of kidney and ureter, unspecified; Z79.4 Long term (current) use of insulin; E11.8 Type 2 diabetes mellitus with unspecified complications
CPT/HCPCS: 36415; 80048; 80061; 80076; 83036; 83735; 85025

== ENCOUNTER → 2019-09-30 16:33 | Outpatient (CLI) | payer OTHER, SELFPAY ==
[2018-12-25 08:56] VITALS: BMI 37.9
[2019-09-30 13:11] VITALS: BMI 42.9
[2019-09-30 18:30] LABS: Anion Gap 8 (5-15); BUN 60 mg/dL (7-18); BUN/Creat Ratio 24.7 RATIO (10-20); Chloride 105 mmol/L (98-107); Creatinine, Serum 2.43 mg/dL (0.70-1.30); EST Glomerular Filtration Rate 30 mL/min (>60); Est Glom Filt Rate - Afr Amer 36 mL/min (>60); Glucose 132 mg/dL (74-106); Potassium 3.9 mmol/L (3.5-5.1); Sodium Level 142 mmol/L (136-145)
== END ==
PROVIDERS: PCP Family Medicine; Referring Provider Physician Assistant Medical; Visit Provider Physician Assistant Medical
DX: I25.10 Atherosclerotic heart disease of native coronary artery without angina pectoris (principal)
CPT/HCPCS: 36415; 80048

== ENCOUNTER 2020-03-14 20:54 | Inpatient (IN) | payer OTHER, SELFPAY ==
[2018-12-25 08:56] VITALS: BMI 37.9
[2019-11-18 14:47] VITALS: BMI 43.2
[2020-03-14] VITALS (7 sets, daily range): BP systolic 127–155; BP diastolic 57–113; PULSE 84–97; RESP 24–94; TEMP 36.8–39.1; O2SAT 6–100; BMI 42.3
--- NOTE | 2020-03-14 21:11 | RAD_ITS ---
STUDY: X-RAY CHEST REASON FOR EXAM: Male, 49 years old. Shortness of breath, confusion. TECHNIQUE: Single frontal view of the chest. COMPARISON: 12/20/2018 FINDINGS: There are bilateral ill-defined opacities, more pronounced on the right. Normal size heart. Normal mediastinum and paula. Normal visualized pulmonary arteries. Normal visualized aortic arch and descending thoracic aorta. Normal visualized thoracic spine. Normal visualized ribs, clavicles, and shoulders. There is no demonstrated abnormality of the visualized soft tissue structures of the upper abdomen. RAD/Chest 1 View (Portable) IMPRESSION: Bilateral ill-defined opacities concerning for multifocal pneumonia. Electronically Signed: Patricia Cook MD at 21:56 EST Tel , Service support ,
--- NOTE | 2020-03-14 21:11 | EKG12_ITS ---
Test Reason : DYSRHYTHMIA Blood Pressure : / mmHG Vent. Rate : 089 BPM Atrial Rate : 089 BPM P-R Int : 164 ms QRS Dur : 102 ms QT Int : 366 ms P-R-T Axes : 036 064 080 degrees QTc Int : 445 ms Normal sinus rhythm Possible Inferior infarct , age undetermined Poor R wave progression Abnormal ECG Confirmed by JULIA NUNEZ, JAZMINE ([id number]), field map editor ISRAEL MALIK ([id number]) on 03/17/2020 12:43:11 PM Referred By: ABDIEL Confirmed By:JAZMINE DUMONT MD
--- NOTE | 2020-03-14 21:13 | ED.VISSUMM ---
- ER Visit Summary Date of Service: 03/14/20 Chief Complaint: [Shortness of breath] History of Present Illness: The patient is a 49 M [presents to the emergency department stating that he developed symptoms approximately 6 days ago. Patient states that his was diagnosed with COVID-19 exactly 7 days ago. Patient complains of cough and headache and body aches. Patient complains of shortness of breath. He has history of CHF, hypertension, coronary artery disease, and high cholesterol. He does not wear home O2 normally. He denies recent travel or surgery. Patient states that his son also was ill with similar illnesses.] Physical Examination: [HEENT-PERRLA, EOMI. Cranial nerves II through XII grossly intact. TMs clear. Mucous membranes moist. No adenopathy. Cardiovascular-regular rate and rhythm without murmur or ectopy Lungs-few faint expiratory wheezes noted bilaterally. Patient has some faint rales in the bases. No accessory muscle use or retractions. No significant tachypnea. Abdomen-normoactive bowel sounds, soft, nontender, no rebound or rigidity, no peritoneal signs. Extremities-intact ?4, normal range of motion, normal pulses, atraumatic] Test Results: [EKG obtained on arrival showed a sinus rhythm with a ventricular rate of 89 bpm with old inferior infarct noted. When compared with prior EKG from December 25, 2018 no new changes noted. CBC with differential showed a white count 6.7, hemoglobin 9.8, hematocrit 29, plates 176. Chemistries unremarkable. BUN was 66 and creatinine was 3.04. Glucose was 387. Troponin was 0.615. Chest x-ray showed bilateral infiltrates as interpreted by myself and radiology agrees.] Emergency Department Course and Treatment: [IV line established on arrival. Patient placed on 2 L nasal cannula O2. Patient was given a 500 cc fluid bolus and normal saline at 150 cc an hour. Patient will be started on Decadron 6 mg IV.] Treatment Plan: [Admit] I suspect elevated troponin due to troponin leak and not clearing due to acute kidney injury. Patient not having chest pain or ACS symptoms. Disposition: [Admit] Impression: [Covid pneumonia with hypoxemia Acute kidney injury Elevated troponin I ] This note was generated with [employer] dictation software. It may contain incorrect words, spelling, and punctuation that were not noted in review of the chart prior to signing ED Disposition - Plan for ED Patient: Referrals: Joseph Ricks MD [Primary Care Provider] -
[2020-03-14 21:39] LABS: Absolute Lymphocyte Count 0.63 X10^3/uL (0.83-4.51); Absolute Neutrophil Count 5.7 X10^3/uL (2.0-7.7); Basophil# 0.02 X10^3/uL; Basophil% 0.3 % (0-1); Hematocrit 29.1 % (40-54); Hemoglobin 9.8 g/dL (13.0-16.5); Lymphocyte # 0.63 X10^3/ul (4.0); Lymphocyte % 9.3 % (19-41); Mean Corp Hgb Conc 33.7 g/dL (32-36); Mean Corpuscular Hgb 27.4 pg (27.0-32.0); Mean Corpuscular Volume 81.3 fL (80-94); Mean Platelet Vol. 11.8 fl (6.2-12.0); Monocyte% 4.5 % (0-10); NRBC Flagged by Analyzer 0.3 % (0-5); Neutrophil # 5.66 X10^3/uL (2.7-7.7); Platelet Count 176 K/mm3 (150-450); RBC Distribution Width CV 13.2 % (11.6-14.6); RBC Distribution Width SD 38.8 fl (35.1-43.9); Red Blood Count 3.58 M/mm3 (4.6-6.2); White Blood Count 6.7 K/mm3 (4.4-11.0)
[2020-03-14] MEDS: Acetaminophen 325 MG Tablet 650 MG PO (21:42)
[2020-03-14 22:00] LABS: Anion Gap 9 (5-15); BUN 66 mg/dL (7-18); BUN/Creat Ratio 21.7 RATIO (10-20); Calcium,Total 7.9 mg/dL (8.5-10.1); Chloride 95 mmol/L (98-107); Creatinine, Serum 3.04 mg/dL (0.70-1.30); EST Glomerular Filtration Rate 23 mL/min (>60); Est Glom Filt Rate - Afr Amer 28 mL/min (>60); Estimated Creatinine Clearance 29.68 ml/min; Glucose 387 mg/dL (74-106); Sodium Level 133 mmol/L (136-145)
[2020-03-14 22:03] LABS: Lactic Acid 1.4 mmol/L (0.4-1.9)
--- NOTE | 2020-03-14 22:08 | PCM.HP.STD ---
Problem List (1) Pneumonia due to COVID-19 virus Status: Acute (2) Venous insufficiency Status: Chronic (3) Hyperlipidemia Status: Chronic (4) Hypertension Status: Chronic Qualifiers: Hypertension type: essential hypertension Qualified Code(s): I10 - Essential (primary) hypertension (5) Acute on chronic diastolic heart failure Status: Chronic (6) Diabetes mellitus, type II Status: Chronic (7) History of non-ST elevation myocardial infarction (NSTEMI) Status: Chronic (8) Ischemic cardiomyopathy Status: Chronic (9) Stented coronary artery Status: Chronic Comment: TREY to mid LAD ISR 2.25 X 38 Promus; TREY to mid LAD 2.5 X 28 Promus telescoped into previously placed stent (2.25); TREY to Proximal Diag 1 2.25 X 12 Promus; POBA to ostial Diag #1 with 2.0 X12 Emerge balloon, 85%--->20%, no dissection 12/24/18 per SYMONEN @ [facility] PTCA and TREY to LAD 06/23/13 @ [facility]; Promus stent to DX 07/17/13 @ [facility] (10) History of left heart catheterization Status: Chronic Comment: 06/23/2013 @ [facility] (11) Atherosclerotic heart disease of [place] coronary artery without angina pectoris Status: Chronic Comment: PTCA and TREY to LAD 06/23/13; Promus stent to DX 07/17/13 (12) Obesity Status: Chronic History of Present Illness Date of Admission: 03/14/20 Chief Complaint: weakness The patient is a 49 year old M with a significant history of CAD status post 6 coronary stents; hypertension; hyperlipidemia; diabetes mellitus; obesity; and ischemic cardiomyopathy who presents to the emergency department with 1 week history of weakness. He reported that in the past week he has fell about 4 times secondary to weakness. Associated with his symptoms is fatigue. He denies any shortness of breath. Occasionally he has a cough. His cough is now dry. Previously his cough was productive. Here he reports body aches. He denies any fever or chills. At emergent department patient was found to have a fever. Nurse thinks that patient had confused conservation at the ED. Past Medical History Past Medical History (Chronic Problems): Chronic Problems (Last Reviewed 03/14/20 @ 23:[address] Per Feliciano MD) Venous insufficiency (Chronic) Hyperlipidemia (Chronic) Hypertension (Chronic) Acute on chronic diastolic heart failure (Chronic) Diabetes mellitus, type II (Chronic) History of non-ST elevation myocardial infarction (NSTEMI) (Chronic) Ischemic cardiomyopathy (Chronic) Stented coronary artery (Chronic 12/24/18) TREY to mid LAD ISR 2.25 X 38 Promus; TREY to mid LAD 2.5 X 28 Promus telescoped into previously placed stent (2.25); TREY to Proximal Diag 1 2.25 X 12 Promus; POBA to ostial Diag #1 with 2.0 X12 Emerge balloon, 85%--->20%, no dissection 12/24/18 per DJN @ [facility] PTCA and TREY to LAD 06/23/13 @ [facility]; Promus stent to DX 07/17/13 @ [facility] History of left heart catheterization (Chronic) 06/23/2013 @ [facility] Atherosclerotic heart disease of [place] coronary artery without angina pectoris (Chronic) PTCA and TREY to LAD 06/23/13; Promus stent to DX 07/17/13 Obesity (Chronic) Medical History: Medical History (Last Reviewed 03/14/20 @ 23:[address] Per Feliciano MD) Hyperlipidemia (Chronic) E78.5 Hypertension (Chronic) I10 Diabetes mellitus, type II (Chronic) E11.9 History of non-ST elevation myocardial infarction (NSTEMI) (Chronic) I25.2 Ischemic cardiomyopathy (Chronic) I25.5 Atherosclerotic heart disease of [place] coronary artery without angina pectoris (Chronic) I25.10 PTCA and TREY to LAD 06/23/13; Promus stent to DX 07/17/13 Obesity (Chronic) Hyperlipidemia (Inactive) Hypertension (Inactive) Allergies lisinopril Adverse Reaction (Intermediate, Verified 09/30/19 16:00) Cough losartan Adverse Reaction (Intermediate, Verified 09/30/19 16:00) cough Home Medications: Ambulatory Orders Medication Instructions Recorded Aspirin [Aspirin, Baby] 81 mg PO DAILY@0800 09/28/14 Famotidine [Pepcid] 20 mg PO DAILY 09/28/14 Mag-Ox 400 1 tab PO DAILY 09/28/14 nitroglycerin 0.4 mg sublingual 0.4 mg SUBLINGUAL Q5-15M PRN 04/20/17 tablet metoprolol succinate 50 mg 50 mg PO DAILY tab 12/16/18 tablet,extended release 24 hr Atorvastatin Calcium 80 mg PO QHS 12/20/18 Clopidogrel Bisulfate [Plavix] 75 mg PO DAILY #90 tab 12/25/18 insulin glargine 100 unit/mL (3 30 unit SUBCUT DAILY ml 01/16/19 mL) subcutaneous pen glimepiride 2 mg tablet 2 mg PO QAM #90 tab 03/11/19 hydralazine 25 mg tablet 25 mg PO .COMPLEX #90 tab 09/08/19 hydralazine 50 mg tablet 50 mg PO .COMPLEX #90 tab 09/08/19 losartan 25 mg tablet 25 mg PO DAILY 09/09/19 furosemide 40 mg tablet 40 mg PO .COMPLEX #240 tab 11/18/19 isosorbide mononitrate 60 mg 60 mg PO DAILY #90 tab 11/18/19 tablet,extended release 24 hr amlodipine 5 mg tablet 5 mg PO DAILY #90 tab 02/16/20 Surgical History: Surgical History (Last Reviewed 03/14/20 @ 23:[address] Per Feliciano MD) Stented coronary artery (Chronic) Onset Date: 12/24/18 Z95.5 TREY to mid LAD ISR 2.25 X 38 Promus; TREY to mid LAD 2.5 X 28 Promus telescoped into previously placed stent (2.25); TREY to Proximal Diag 1 2.25 X 12 Promus; POBA to ostial Diag #1 with 2.0 X12 Emerge balloon, 85%--->20%, no dissection 12/24/18 per DIANDRA @ [facility] PTCA and TREY to LAD 06/23/13 @ [facility]; Promus stent to DX 07/17/13 @ [facility] History of left heart catheterization (Chronic) Z98.890 06/23/2013 @ [facility] Surgical History: - - Hernia repair, cardiac stents. Psychiatric History: No pertinent psych hx Smoking Status: Never smoker - *Family History Maternal Family History: Family History (Last Reviewed 03/14/20 @ 23:[address] Per Feliciano MD) Father Myocardial infarction CAD (coronary artery disease) Sudden cardiac Mother Sick sinus syndrome Sister Diabetes Paternal Family History: Family History (Last Reviewed 03/14/20 @ 23:[address] Per Feliciano MD) Father Myocardial infarction CAD (coronary artery disease) Sudden cardiac Mother Sick sinus syndrome Sister Diabetes History Items: - Review of Systems Constitutional: Reports: Weakness, Fatigue. Denies: Chills, Fever, Weight Change HEENT: Denies: Head Aches, Sinus Congestion, Sinus Drainage Cardiovascular: Denies: Chest Pain, Palpitations Respiratory: Reports: Cough. Denies: Shortness of breath at rest Gastrointestinal: Denies: Abdominal Pain, Nausea, Vomiting Genitourinary: Denies: Dysuria Musculoskeletal: Reports: Muscle pain. Denies: Joint Pain, Joint Tenderness Skin: Denies: Rash, Wounds Neurological: Reports: Confusion - Nurses at the ED thought patient was confused.. Denies: Focal weakness, Numbness, Tingling Psychiatric: Denies: Anxiety, Depression, Homicidal Ideations, Suicidal Ideations Hematologic/ Lymphatic: Denies: Easy Bruising, Easy Bleeding VTE Information - Inpt Only VTE Present on Admission: No VTE Mechan Device Prophylaxis: None VTE Pharm Prophylaxis ordered?: Yes Patient Problems: Active and Suspected Problems (Last Reviewed 03/14/20 @ 23:[address] Per Feliciano MD) Pneumonia due to COVID-19 virus (Acute) - Physical Exam Vitals/I&O's: Vital Signs Temp Pulse Resp BP Pulse Ox 102.3 F H 91 25 H 155/57 H 96 03/14/20 20:55 03/14/20 20:59 03/14/20 20:59 03/14/20 20:59 03/14/20 21:05 Oxygen Flow Rate (L/min) 12 Oxygen Delivery Method Airvo Weight: 133.6 kg Body Mass Index (BMI) 42.3 General: Alert, Oriented x3, Cooperative HEENT: Atraumatic, PERRLA, EOMI, Normocephalic Neck: Supple, No JVD, Negative Carotid Bruits Lungs: Rales, Tachypneic Cardiovascular: Regular rate, Normal S1, Normal S2, No murmurs Abdomen: Bowel Sounds Present, Soft, Non Tender Extremities: No edema, Capillary Refill Less than 3 Seconds Skin: No rashes, No breakdown Musculoskeletal: No Tenderness to Palpation of Joints or Extremities Neurological: Cranial nerves II-XII grossly intact Psych/Mental Status: Normal Affect, Appropriate Laboratory Results 03/14/20 21:20: WBC 6.7, RBC 3.58 L, Hgb 9.8 L, Hct 29.1 L, MCV 81.3, MCH 27.4, MCHC 33.7, RDW Std Deviation 38.8, RDW Coeff of Rajendra 13.2, Plt Count 176, MPV 11.8, Immature Gran % (Auto) 1.900 H, Neut % (Auto) 84.0 H, Lymph % (Auto) 9.3 L, [place] % (Auto) 4.5, Eos % (Auto) 0.0, Baso % (Auto) 0.3, Absolute Neuts (auto) 5.7, Absolute Lymphs (auto) 0.63 L, Nucleated RBC % 0.3 03/14/20 21:20: Sodium 133 L, Potassium 4.0, Chloride 95 L, Carbon Dioxide 29.0, Anion Gap 9, BUN 66 H, Creatinine 3.04 H, Estim Creat Clear Calc 29.68, Est GFR (MDRD) Af Amer 28 L, Est GFR (MDRD) Non-Af 23 L, BUN/Creatinine Ratio 21.7 H, Glucose 387 H, Calcium 7.9 L, Troponin I 0.615 H* 03/14/20 21:20: Lactic Acid 1.4 03/14/20 21:33: COVID-19 ([place]) Pending Current Medications Sodium Chloride () 500 mls @ 999 mls/hr IV .Q31M [facility] Stop: 03/14/20 22:45 Assessment/Plan All Active Problems (Last Reviewed 03/14/20 @ 23:[address] Per Feliciano MD) Pneumonia due to COVID-19 virus (Acute) SARS Covid-2 Impression of chest x-ray by radiologist: Bilateral ill-defined opacities concerning for multifocal pneumonia. Actual chest x-ray image was independently interpreted. I agree with radiologist interpretation. COVID-19 was positive. Procalcitonin, strep pneumonia antigen and Legionella urine antigen ordered. Decadron IV ordered at the ED. Decadron 6 mg p.o. daily ordered. Tylenol for fever and Mucinex for cough ordered. Not a candidate of remdesivir at this time secondary to poor creatinine clearance. Enhanced droplet precautions ordered. Consider specialist consult. CORA on CKD stage III. Creatinine presentation was 3.04 Baseline creatinine is less than 2 CKD stage III likely secondary to hypertensive nephrosclerosis and diabetic nephropathy. Gentle IV hydration Trend BMP Urine Electrolytes ordered. Hold home Lasix and losartan. Avoid other nephrotoxins. Elevated troponin/CAD status post stent Patient had an IN at age 43 and another IN at age 48. He has 6 stents in all. Last stent was placed 1 year ago. Aspirin; Imdur and Plavix continued. Denies current chest pain. EKG showed Q waves in inferior leads. EKG is unchanged from previous EKG. Trend troponin. Diabetes mellitus with hyperglycemia Patient with hyperglycemia on presentation Home long-acting insulin continue. Glimepiride continued. He is better with Decadron blood glucose requirement will increase. Accu-Chek before every meal because of correction scale insulin ordered. Ischemic cardiomyopathy Echocardiogram on 12/12/2018 showed an ejection fraction of 60% and stage I diastolic dysfunction. Right ventricular systolic pressure was unable to be assessed secondary to insufficient tricuspid regurgitant envelope. Home Lasix held secondary to CORA Trend BMP. Morbid obesity: Lifestyle modification commended Hypertension Pressure is now within goal Amlodipine; hydralazine; Imdur; metoprolol continued. Losartan held secondary to CORA. Trend blood pressure and adjust blood pressure medications. DVT Prophylaxis Subcutaneous Lovenox ordered Morbid Obesity: BMI: []. Complicates care. Lifetsyle modification recommended. DVT prophylaxis Inpatient E&M: 73829 Init Hosp L3
[2020-03-14] MEDS: Insulin Lispro 100 UNIT/ML INSULN.PEN 8 UNIT SC (22:57)
[2020-03-14] MEDS: dexAMETHasone 10 MG/ML Vial 6 MG IV (23:00)
[2020-03-15] VITALS (19 sets, daily range): BP systolic 122–147; BP diastolic 61–81; PULSE 65–77; RESP 10–24; TEMP 36–37.4; O2SAT 92–98; BMI 41.2; BMI 41.3
[2020-03-15] MEDS: 0.9% Normal Saline 1,000 ML 100 ML IV ×3 (01:05→21:11)
[2020-03-15] MEDS: 0.9% Saline Lock 10 ML Syringe IV (01:06)
[2020-03-15 01:39] LABS: Procalcitonin 0.51 ng/mL (0.00-0.09)
[2020-03-15 03:21] LABS: Absolute Lymphocyte Count 0.43 X10^3/uL (0.83-4.51); Absolute Neutrophil Count 6.9 X10^3/uL (2.0-7.7); Basophil# 0.01 X10^3/uL; Basophil% 0.1 % (0-1); Differential Indicated SCAN CRITERIA MET; Lymphocyte # 0.43 X10^3/ul (4.0); Lymphocyte % 5.5 % (19-41); Mean Corp Hgb Conc 33.3 g/dL (32-36); Mean Corpuscular Hgb 27.2 pg (27.0-32.0); Mean Corpuscular Volume 81.6 fL (80-94); Mean Platelet Vol. 11.3 fl (6.2-12.0); Monocyte# 0.29 X10^3/uL; Monocyte% 3.7 % (0-10); NRBC Flagged by Analyzer 0 % (0-5); Neutrophil # 6.93 X10^3/uL (2.7-7.7); Neutrophil % 89.3 % (47-70); POSITIVE DIFFERENTIAL YES; Platelet Count 156 K/mm3 (150-450); RBC Distribution Width CV 13.2 % (11.6-14.6); RBC Distribution Width SD 39.8 fl (35.1-43.9); Red Blood Count 3.31 M/mm3 (4.6-6.2); White Blood Count 7.8 K/mm3 (4.4-11.0)
[2020-03-15 03:25] LABS: International Normalized Ratio 1.1; Prothrombin Time (Protime)PT. 13.3 SECONDS (11.7-14.9)
[2020-03-15 03:26] LABS: Partial Thromboplast Time 32.4 Seconds (24.1-36.2)
[2020-03-15] MEDS: Heparin Injection (Vial) 5,000 UNIT/ML VIAL 10500 UNIT IV (03:33)
[2020-03-15] MEDS: HEPARIN/D5w 25,000 UNITS 25,000 UNITS/250 ML IV.SOLN. 17 UNITS IV (03:35)
[2020-03-15 03:42] LABS: ALB/GLOB Ratio 0.6 RATIO (0.9-2.4); AST(SGOT) 68 U/L (15-37); Alanine Aminotransfer ALT/SGPT 35 U/L (16-61); Albumin, Serum 2.3 g/dL (3.2-5.0); Alkaline Phosphatase 58 U/L (45-117); Anion Gap 7 (5-15); BUN 73 mg/dL (7-18); BUN/Creat Ratio 22.3 RATIO (10-20); Calcium,Total 7.9 mg/dL (8.5-10.1); Chloride 99 mmol/L (98-107); Creatinine, Serum 3.28 mg/dL (0.70-1.30); EST Glomerular Filtration Rate 21 mL/min (>60); Est Glom Filt Rate - Afr Amer 26 mL/min (>60); Estimated Creatinine Clearance 28.38 ml/min; Globulin 4.1 g/dL (2.2-4.2); Glucose 357 mg/dL (74-106); Potassium 3.7 mmol/L (3.5-5.1); Protein, Total 6.4 g/dL (6.4-8.2); Sodium Level 133 mmol/L (136-145)
[2020-03-15] MEDS: Aspirin 81 MG TAB.CHEW PO ×2 (09:11→09:16)
[2020-03-15] MEDS: dexAMETHasone 4 MG Tablet 6 MG PO (09:12)
[2020-03-15] MEDS: Clopidogrel Bisulfate 75 MG Tablet PO (09:12)
[2020-03-15] MEDS: Glimepiride 2 MG Tablet PO (09:12)
[2020-03-15] MEDS: hydrALAZINE 25 MG Tablet PO ×2 (09:13→20:11)
[2020-03-15] MEDS: hydrALAZINE 50 MG Tablet PO ×2 (09:14→20:11)
[2020-03-15] MEDS: Metoprolol(XL)Succ 50 MG Tablet PO ×2 (09:15→09:16)
[2020-03-15] MEDS: Famotidine 20 MG Tablet PO (09:16)
[2020-03-15] MEDS: Isosorbide Mononitrate 60 MG Tablet PO (09:17)
[2020-03-15] MEDS: amLODIPine 5 MG Tablet PO (09:17)
[2020-03-15] MEDS: Glucerna Shake 120 ML LIQUID PO (09:22)
[2020-03-15] MEDS: Insulin Lispro 100 UNIT/ML INSULN.PEN SC ×4 (09:24→20:12)
[2020-03-15 10:30] LABS: Partial Thromboplast Time 219.5 Seconds (24.1-36.2)
[2020-03-15 11:30] LABS: Bedside Glucose 437 mg/dL (70-110)
[2020-03-15 11:31] LABS: Bedside Glucose 497 mg/dL (70-110)
--- NOTE | 2020-03-15 14:31 | CASEMGMT ---
RN CM Assessment Note Introduced role of CM to patient via phone. Demographics, PCP verified. Patient states he lives with his and son in one story home. Generally independent, but recently very fatigued and weak from covid illness. 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 -They have friends/family to bring groceries, etc to home while isolating. COVID TESTIN03/14/20 @ [facility] Presentation: fatigue, weakness, cough, fever Diagnosis: COVID-19 pneumonia PCP: Dr. Ricks Specialists: Dr. Franks in past, cardiology. States Dr. Ken will be seeing him in hospital. Insurance: Aet Preferred Pharmacy: [facility] Pharmacy Prescription Benefit: yes LNOK: , kathryn Sanchez Living Arrangements: Lives in one story home with his and son. States 2 steps into home. He does not use ambulatory DME and states he does not have @ home. Tranportation: DME: patient states no DME at home. When asked re: falls @ home, patient states my boy helps me back up. -No oxygen, no cpap @ home. Discussed DME List and patient does not have preference. [facility] and [facility] are [facility] with his insurance. HHC: none. Had CCN in past. SNF: no Patient DC Goals: Home on dc. Physical therapy evaluations recommend further therapy. Will follow to see if patient improves and what further recommendations would be. DC Plan: Home on discharge. May need HHC/ walker on dc if PT/OT recommends. CM available for discharge planning coordination. Contact CM for any concerns/needs that may arise. Hector ARVIZU RN ACM
--- NOTE | 2020-03-15 14:51 | PN_ITS ---
Patient Problems: Active and Suspected Problems (Last Reviewed 03/14/20 @ 23:[address] Per Feliciano MD) Pneumonia due to COVID-19 virus (Acute) Reason for Visit: COVID 19 Subjective: Upset about continuing to be quarantined. Vitals/I&O's: Vital Signs Temp Pulse Resp BP Pulse Ox 36.4 C L 75 16 139/70 H 98 03/15/20 09:08 03/15/20 09:16 03/15/20 09:08 03/15/20 09:16 03/15/20 13:13 Oxygen Flow Rate (L/min) 6 Oxygen Delivery Method Nasal Cannula Weight: 134.2 kg Body Mass Index (BMI) 41.2 Intake and Output for Last 24 Hours 03/13/20 03/14/20 03/15/20 23:59 23:59 23:59 Intake Total 1975.52 / 1975.52 Output Total 550 / 550 Balance 1425.52 / 1425.52 General: Alert, No apparent distress, - - up in chair, wearing gown and jeans, no respiratory distress, no conversational dyspnea. HEENT: Atraumatic, Normocephalic Oral: Moist Mucosa, No Gingival or Mucosal Lesions/ Ulcerations Neck: No Nodes, Thyroid Normal Size and Texture Lungs: Clear to auscultation, Normal air movement, No rhonchi, No wheeze, No rales Cardiovascular: Regular rate, Regular Rhythm, Normal S1, Normal S2, No murmurs Abdomen: Bowel Sounds Present, Soft, Non Tender, Non-Distended, No Hepato- splenomegaly Extremities: No edema, No Calf Tenderness Skin: No rashes, No breakdown Psych/Mental Status: Normal Affect, Appropriate Microbiology Past 72 Hours 03/14/20 21:33 Mucosa - Nasopharyngeal Influenza Types A,B Direct FA ([facility]) - Final Laboratory Results 03/14/20 21:20: WBC 6.7, RBC 3.58 L, Hgb 9.8 L, Hct 29.1 L, MCV 81.3, MCH 27.4, MCHC 33.7, RDW Std Deviation 38.8, RDW Coeff of Rajendra 13.2, Plt Count 176, MPV 11.8, Immature Gran % (Auto) 1.900 H, Neut % (Auto) 84.0 H, Lymph % (Auto) 9.3 L , [place] % (Auto) 4.5, Eos % (Auto) 0.0, Baso % (Auto) 0.3, Absolute Neuts (auto) 5.7, Absolute Lymphs (auto) 0.63 L, Nucleated RBC % 0.3 03/14/20 21:20: Sodium 133 L, Potassium 4.0, Chloride 95 L, Carbon Dioxide 29.0, Anion Gap 9, BUN 66 H, Creatinine 3.04 H, Estim Creat Clear Calc 29.68, Est GFR (MDRD) Af Amer 28 L, Est GFR (MDRD) Non-Af 23 L, BUN/Creatinine Ratio 21.7 H, Glucose 387 H, Calcium 7.9 L, Troponin I 0.615 H* 03/14/20 21:20: Lactic Acid 1.4 03/14/20 21:20: D-Dimer Quant (PE/DVT) 1.90 H* 03/14/20 21:33: COVID-19 ([place]) Detected 03/15/20 01:03: Troponin I 0.750 H* 03/15/20 01:09: Procalcitonin 0.51 H 03/15/20 03:05: WBC 7.8, RBC 3.31 L, Hgb 9.0 L, Hct 27.0 L, MCV 81.6, MCH 27.2, MCHC 33.3, RDW Std Deviation 39.8, RDW Coeff of Rajendra 13.2, Plt Count 156, MPV 11.3, Immature Gran % (Auto) 1.400 H, Neut % (Auto) 89.3 H, Lymph % (Auto) 5.5 L , [place] % (Auto) 3.7, Eos % (Auto) 0.0, Baso % (Auto) 0.1, Absolute Neuts (auto) 6.9, Absolute Lymphs (auto) 0.43 L, Nucleated RBC % 0 03/15/20 03:05: Sodium 133 L, Potassium 3.7, Chloride 99, Carbon Dioxide 27.0, Anion Gap 7, BUN 73 H, Creatinine 3.28 H, Estim Creat Clear Calc 28.38, Est GFR (MDRD) Af Amer 26 L, Est GFR (MDRD) Non-Af 21 L, BUN/Creatinine Ratio 22.3 H, Gl ucose 357 H, Calcium 7.9 L, Total Bilirubin 0.40, AST 68 H, ALT 35, Alkaline Phosphatase 58, Total Protein 6.4, Albumin 2.3 L, Globulin 4.1, Albumin/Globulin Ratio 0.6 L 03/15/20 03:05: Troponin I 0.522 H 03/15/20 03:05: PT 13.3, INR 1.1, APTT 32.4 03/15/20 06:10: Troponin I 0.487 H 03/15/20 09:23: POC Glucose 437 H 03/15/20 09:40: APTT 219.5 H* 03/15/20 11:13: POC Glucose 497 H* Current Medications Acetaminophen (Acetaminophen 325 Mg Tablet) 650 mg PO Q6H PRN PRN PRN Reason: Fever of 100.4 Fahrenheit/pain 1-10 Amlodipine Besylate (Amlodipine 5 Mg Tablet) 5 mg PO DAILY@0800 [facility] Last Admin: 03/15/20 09:17 Dose: 5 mg Documented by: Aspirin (Aspirin 81 Mg Tab.Chew) 81 mg PO DAILY@0800 [facility] Last Admin: 03/15/20 09:16 Dose: 81 mg Documented by: Atorvastatin Calcium (Atorvastatin Calcium 80 Mg Tablet) 80 mg PO QHS [facility] Clopidogrel Bisulfate (Clopidogrel Bisulfate 75 Mg Tablet) 75 mg PO DAILY@0800 [facility] Last Admin: 03/15/20 09:12 Dose: 75 mg Documented by: Dexamethasone (Dexamethasone 4 Mg Tablet) 6 mg PO DAILY@0800 [facility] Last Admin: 03/15/20 09:12 Dose: 6 mg Documented by: Dextrose (Dextrose 50%-Water 25 Gm/50 Ml Disp.Syrin) 0 gm IV X1 PRN; Protocol PRN Reason: Hypoglycemia Famotidine (Famotidine 20 Mg Tablet) 20 mg PO DAILY@0800 [facility] Last Admin: 03/15/20 09:16 Dose: 20 mg Documented by: [facility]imepiride ([facility] 2 Mg [facility]) [facility] Admin: 03/15/20 09:12 Dose: 2 mg Documented by: Glucagon (Glucagon 1 Mg/Ml Syringe) 1 mg IM .X1 PRN PRN Reason: Hypoglycemia Guaifenesin (Guaifenesin 10 Ml Udc (200mg/10ml)) 10 ml PO Q6H PRN PRN PRN Reason: COUGH Heparin Sodium (Porcine) (Heparin Injection (Vial) 5,000 Unit/Ml Vial) 0 unit IV UD PRN; Protocol PRN Reason: dose adjustment Hydralazine HCl (Hydralazine 50 Mg Tablet) 50 mg PO 0800,2200 [facility] Last Admin: 03/15/20 09:14 Dose: 50 mg Documented by: Hydralazine HCl (Hydralazine 25 Mg Tablet) 25 mg PO 0800,2200 [facility] Last Admin: 03/15/20 09:13 Dose: 25 mg Documented by: Sodium Chloride () 1,000 mls @ 100 mls/hr IV .Q10H [facility] Last Admin: 03/15/20 10:59 Dose: 100 mls/hr Documented by: Sodium Chloride () 250 mls @ 15 mls/hr IV .[id number] PRN PRN Reason: Saline Flush Sodium Chloride () 250 mls @ 15 mls/hr IV .[id number] PRN PRN Reason: Additional IVPB Infusion Heparin Sodium/Dextrose () 25,000 units in 250 mls @ 17 mls/hr IV .[id number] [facility]; Protocol Last Titration: 03/15/20 13:08 Dose: 1,400 units/hr, 14 mls/hr Documented by: Insulin Glargine (Insulin Glargine 100 Units/Ml Pen) 30 units SC DAILY@0800 [facility] Last Admin: 03/15/20 09:24 Dose: 30 u Documented by: Insulin Human Lispro (Insulin Lispro 100 Unit/Ml Insuln.Pen) 0 unit SC 0800,1200,1700,2200 [facility]; Protocol Last Admin: 03/15/20 11:13 Dose: 11 u Documented by: Isosorbide Mononitrate (Isosorbide Mononitrate 60 Mg Tablet) 60 mg PO DAILY@0 800 [facility] Last Admin: 03/15/20 09:17 Dose: 60 mg Documented by: Labetalol HCl (Labetalol (Prefilled) 20 Mg/4 Ml) 10 mg IV Q6 PRN PRN Reason: SBP> 160 or DBP > 120 Metoprolol Succinate (Metoprolol(Xl)Succ 50 Mg Tablet) 50 mg PO DAILY@0800 [facility] Last Admin: 03/15/20 09:16 Dose: 50 mg Documented by: Nutritional Formula (Lactose Free) (Glucerna Shake 120 Ml Liquid) 120 ml PO 4X/DAY [facility] Last Admin: 03/15/20 14:12 Dose: Not Given Documented by: Sodium Chloride (0.9% Saline Lock 10 Ml Syringe) 10 - 40 ml IV UD PRN PRN Reason: SALINE FLUSH Last Admin: 03/15/20 01:06 Dose: 10 ml Documented by: STROKE Vital Signs/Narrative: Vital Signs Pulse Ox 03/15/20 13:13 98 Medical Necessity - Tobacco Use Smoking Status: Never smoker Assessment/Plan All Active Problems (Last Reviewed 03/14/20 @ 23:[address] Per Feliciano MD) Pneumonia due to COVID-19 virus (Acute) 1. acute hypoxic respiratory failure * 2/2 COVID 19 pneumonia, ALI * wean oxygen as tolerated 2. Acute COVID 19 pneumonia * on dexamethasone * not candidate for remdesivir given CKD * Infectious disease consultation 3. Non-STEMI * Likely demand due to COVID-19, hypoxia * Troponins have been trending down, peak troponin 0.615 * Continue with therapeutic anticoagulation for now * Discussed with Dr. Ken who stated the patient would not be a candidate for catheterization procedure with his kidney disease and did not feel an echocardiogram would change his management at this time. We will hold off on cardiology consult unless patient condition changes. * continue with medical therapy: ASA, clopidogrel, HIS 4.CORA * baseline creatinine 2.4 (from 09/29) now up to 3.28 * hold nephrotoxic agents: furosemide 5. DM2 * uncontrolled * exacerbated by steroids * on basal and SSI * monitor for now, but if remains elevated, will likely make adjustments 6. VTE prophylaxis: anticoagulated. Discussed with the patient at length that his presentation with COVID-19 in the hospital is not atypical. Explained that improvements, once patients are hospitalized with COVID-19, tend to be slow though worsening can occur very quickly. When the patient will continue with medical therapy at this time and will review his case with cardiology. Discussed with cardiology as mentioned above. Spent a 35 minutes of which greater than 50% of time was counseling the patient about COVID-19 and his cardiac markers. Inpatient E&M: [id number] [facility] Hosp L3
[2020-03-15 16:45] LABS: Bedside Glucose > 500 mg/dL (70-110)
[2020-03-15] MEDS: Insulin Lispro 100 UNIT/ML INSULN.PEN 12 UNIT SC (17:21)
--- NOTE | 2020-03-15 17:50 | PCM.HP.ID ---
Problem List (1) Pneumonia due to COVID-19 virus Status: Acute Reason for Consult: covid Consulted by: Dr. Porter History of Present Illness: The patient is a 49 year old M presented with speech changes. was sick starting 2 weeks ago with covid. He started to get sick a week ago, primary symptom was fatigue, generalized not feeling well, mild cough, mild aches. Started to have intermittent difficulty speaking and personality changes; would start yelling at people without reason. No fever, no change in taste/smell, no SOB, no n/v/d. Came to ED, covid (+) pcr. Feeling better today, no dex, hep gtt. Full ROS performed and neg except as noted above. - Medical History Past Medical History (Chronic Problems): Chronic Problems (Last Reviewed 03/14/20 @ 23:[address] Per Feliciano MD) Venous insufficiency (Chronic) Hyperlipidemia (Chronic) Hypertension (Chronic) Acute on chronic diastolic heart failure (Chronic) Diabetes mellitus, type II (Chronic) History of non-ST elevation myocardial infarction (NSTEMI) (Chronic) Ischemic cardiomyopathy (Chronic) Stented coronary artery (Chronic 12/24/18) TREY to mid LAD ISR 2.25 X 38 Promus; TREY to mid LAD 2.5 X 28 Promus telescoped into previously placed stent (2.25); TREY to Proximal Diag 1 2.25 X 12 Promus; POBA to ostial Diag #1 with 2.0 X12 Emerge balloon, 85%--->20%, no dissection 12/24/18 per DIANDRA @ [facility] PTCA and TREY to LAD 06/23/13 @ [facility]; Promus stent to DX 07/17/13 @ [facility] History of left heart catheterization (Chronic) 06/23/2013 @ [facility] Atherosclerotic heart disease of [place] coronary artery without angina pectoris (Chronic) PTCA and TREY to LAD 06/23/13; Promus stent to DX 07/17/13 Obesity (Chronic) Allergies/Adverse Reactions: Allergies lisinopril Adverse Reaction (Intermediate, Verified 09/30/19 16:00) Cough losartan Adverse Reaction (Intermediate, Verified 09/30/19 16:00) cough Home Medications: Ambulatory Orders Medication Instructions Recorded Aspirin [Aspirin, Baby] 81 mg PO DAILY@0800 09/28/14 Famotidine [Pepcid] 20 mg PO DAILY 09/28/14 Mag-Ox 400 1 tab PO DAILY 09/28/14 nitroglycerin 0.4 mg sublingual 0.4 mg SUBLINGUAL Q5-15M PRN 04/20/17 tablet metoprolol succinate 50 mg 50 mg PO DAILY tab 12/16/18 tablet,extended release 24 hr Atorvastatin Calcium 80 mg PO QHS 12/20/18 Clopidogrel Bisulfate [Plavix] 75 mg PO DAILY #90 tab 12/25/18 insulin glargine 100 unit/mL (3 30 unit SUBCUT DAILY ml 01/16/19 mL) subcutaneous pen glimepiride 2 mg tablet 2 mg PO QAM #90 tab 03/11/19 hydralazine 25 mg tablet 25 mg PO .COMPLEX #90 tab 09/08/19 hydralazine 50 mg tablet 50 mg PO .COMPLEX #90 tab 09/08/19 losartan 25 mg tablet 25 mg PO DAILY 09/09/19 furosemide 40 mg tablet 40 mg PO .COMPLEX #240 tab 11/18/19 isosorbide mononitrate 60 mg 60 mg PO DAILY #90 tab 11/18/19 tablet,extended release 24 hr amlodipine 5 mg tablet 5 mg PO DAILY #90 tab 02/16/20 - Social History Tobacco Use: non-smoker Vital Signs Temp Pulse Resp BP Pulse Ox 96.8 F L 64 18 147/77 H 94 03/15/20 15:00 03/15/20 19:00 03/15/20 15:00 03/15/20 15:00 03/15/20 15:00 Oxygen Flow Rate (L/min) 6 Oxygen Delivery Method Nasal Cannula Weight: 134.2 kg Body Mass Index (BMI) 41.2 Microbiology Past 72 Hours 03/15/20 18:25 Legionella Antigen - Final Urine, Clean Catch 03/14/20 21:33 Influenza Types A,B Direct FA (DAVON) - Final Mucosa - Nasopharyngeal Laboratory Tests Past 24 Hrs 03/14/20 03/14/20 03/14/20 21:20 21:20 21:20 WBC 6.7 RBC 3.58 L Hgb 9.8 L Hct 29.1 L MCV 81.3 MCH 27.4 MCHC 33.7 RDW Std Deviation 38.8 RDW Coeff of Rajendra 13.2 Plt Count 176 MPV 11.8 Immature Gran % (Auto) 1.900 H Neut % (Auto) 84.0 H Lymph % (Auto) 9.3 L [place] % (Auto) 4.5 Eos % (Auto) 0.0 Baso % (Auto) 0.3 Absolute Neuts (auto) 5.7 Absolute Lymphs (auto) 0.63 L Nucleated RBC % 0.3 PT INR APTT D-Dimer Quant (PE/DVT) Sodium 133 L Potassium 4.0 Chloride 95 L Carbon Dioxide 29.0 Anion Gap 9 BUN 66 H Creatinine 3.04 H Estim Creat Clear Calc 29.68 Est GFR (MDRD) Af Amer 28 L Est GFR (MDRD) Non-Af 23 L BUN/Creatinine Ratio 21.7 H Glucose 387 H Lactic Acid 1.4 Calcium 7.9 L Total Bilirubin AST ALT Alkaline Phosphatase Troponin I 0.615 H* Total Protein Albumin Globulin Albumin/Globulin Ratio Procalcitonin Ur Random Sodium Urine Creatinine Urine Urea Nitrogen COVID-19 ([facility]) Blood Type 03/14/20 03/14/20 03/15/20 21:20 21:33 01:03 WBC RBC Hgb Hct MCV MCH MCHC RDW Std Deviation RDW Coeff of Rajendra Plt Count MPV Immature Gran % (Auto) Neut % (Auto) Lymph % (Auto) [place] % (Auto) Eos % (Auto) Baso % (Auto) Absolute Neuts (auto) Absolute Lymphs (auto) Nucleated RBC % PT INR APTT D-Dimer Quant (PE/DVT) 1.90 H* Sodium Potassium Chloride Carbon Dioxide Anion Gap BUN Creatinine Estim Creat Clear Calc Est GFR (MDRD) Af Amer Est GFR (MDRD) Non-Af BUN/Creatinine Ratio Glucose Lactic Acid Calcium Total Bilirubin AST ALT Alkaline Phosphatase Troponin I 0.750 H* Total Protein Albumin Globulin Albumin/Globulin Ratio Procalcitonin Ur Random Sodium Urine Creatinine Urine Urea Nitrogen COVID-19 ([facility]) Detected Blood Type 03/15/20 03/15/20 03/15/20 01:09 03:05 03:05 WBC 7.8 RBC 3.31 L Hgb 9.0 L Hct 27.0 L MCV 81.6 MCH 27.2 MCHC 33.3 RDW Std Deviation 39.8 RDW Coeff of Rajendra 13.2 Plt Count 156 MPV 11.3 Immature Gran % (Auto) 1.400 H Neut % (Auto) 89.3 H Lymph % (Auto) 5.5 L [place] % (Auto) 3.7 Eos % (Auto) 0.0 Baso % (Auto) 0.1 Absolute Neuts (auto) 6.9 Absolute Lymphs (auto) 0.43 L Nucleated RBC % 0 PT INR APTT D-Dimer Quant (PE/DVT) Sodium 133 L Potassium 3.7 Chloride 99 Carbon Dioxide 27.0 Anion Gap 7 BUN 73 H Creatinine 3.28 H Estim Creat Clear Calc 28.38 Est GFR (MDRD) Af Amer 26 L Est GFR (MDRD) Non-Af 21 L BUN/Creatinine Ratio 22.3 H Glucose 357 H Lactic Acid Calcium 7.9 L Total Bilirubin 0.40 AST 68 H ALT 35 Alkaline Phosphatase 58 Troponin I Total Protein 6.4 Albumin 2.3 L Globulin 4.1 Albumin/Globulin Ratio 0.6 L Procalcitonin 0.51 H Ur Random Sodium Urine Creatinine Urine Urea Nitrogen COVID-19 ([facility]) Blood Type 03/15/20 03/15/20 03/15/20 03:05 03:05 06:10 WBC RBC Hgb Hct MCV MCH MCHC RDW Std Deviation RDW Coeff of Rajendra Plt Count MPV Immature Gran % (Auto) Neut % (Auto) Lymph % (Auto) [place] % (Auto) Eos % (Auto) Baso % (Auto) Absolute Neuts (auto) Absolute Lymphs (auto) Nucleated RBC % PT 13.3 INR 1.1 APTT 32.4 D-Dimer Quant (PE/DVT) Sodium Potassium Chloride Carbon Dioxide Anion Gap BUN Creatinine Estim Creat Clear Calc Est GFR (MDRD) Af Amer Est GFR (MDRD) Non-Af BUN/Creatinine Ratio Glucose Lactic Acid Calcium Total Bilirubin AST ALT Alkaline Phosphatase Troponin I 0.522 H 0.487 H Total Protein Albumin Globulin Albumin/Globulin Ratio Procalcitonin Ur Random Sodium Urine Creatinine Urine Urea Nitrogen COVID-19 ([facility]) Blood Type 03/15/20 03/15/20 03/15/20 09:40 18:25 18:57 WBC RBC Hgb Hct MCV MCH MCHC RDW Std Deviation RDW Coeff of Rajendra Plt Count MPV Immature Gran % (Auto) Neut % (Auto) Lymph % (Auto) [place] % (Auto) Eos % (Auto) Baso % (Auto) Absolute Neuts (auto) Absolute Lymphs (auto) Nucleated RBC % PT INR APTT 219.5 H* D-Dimer Quant (PE/DVT) Sodium Potassium Chloride Carbon Dioxide Anion Gap BUN Creatinine Estim Creat Clear Calc Est GFR (MDRD) Af Amer Est GFR (MDRD) Non-Af BUN/Creatinine Ratio Glucose Lactic Acid Calcium Total Bilirubin AST ALT Alkaline Phosphatase Troponin I Total Protein Albumin Globulin Albumin/Globulin Ratio Procalcitonin Ur Random Sodium 24 Urine Creatinine 140.00 Urine Urea Nitrogen 546 COVID-19 ([facility]) Blood Type Pending 03/15/20 19:14 WBC RBC Hgb Hct MCV MCH MCHC RDW Std Deviation RDW Coeff of Rajendra Plt Count MPV Immature Gran % (Auto) Neut % (Auto) Lymph % (Auto) [place] % (Auto) Eos % (Auto) Baso % (Auto) Absolute Neuts (auto) Absolute Lymphs (auto) Nucleated RBC % PT INR APTT 87.6 H D-Dimer Quant (PE/DVT) Sodium Potassium Chloride Carbon Dioxide Anion Gap BUN Creatinine Estim Creat Clear Calc Est GFR (MDRD) Af Amer Est GFR (MDRD) Non-Af BUN/Creatinine Ratio Glucose Lactic Acid Calcium Total Bilirubin AST ALT Alkaline Phosphatase Troponin I Total Protein Albumin Globulin Albumin/Globulin Ratio Procalcitonin Ur Random Sodium Urine Creatinine Urine Urea Nitrogen COVID-19 ([facility]) Blood Type - Other Studies Radiology: [] reviewed Other Studies: [] Route of nutrition/ use of supplements: [] Nutritional Intake: [] IV Site: [] Cruz Catheter: [] - Physical Exam General: Alert, Oriented x3, Cooperative, No apparent distress HEENT: Atraumatic, PERRLA, EOMI Neck: Supple, No Nodes Lungs: Diminished Cardiovascular: Regular rate, Regular Rhythm Abdomen: Soft, Non Tender, Non-Distended Extremities: No edema Skin: No rashes IV Site: Peripheral, without redness Musculoskeletal: No Tenderness to Palpation of Joints or Extremities Neurological: Cranial nerves II-XII grossly intact - Assessment/Plan Antibiotics: [] Assessment/Plan: [] Active and Suspected Problems (Last Reviewed 03/14/20 @ 23:[address] Per Feliciano MD) Pneumonia due to COVID-19 virus (Acute) covid with hypoxia, CORA on CKD - he reports intermittently difficulty speaking at home, will check head CT. Elevated trop, improving. D-dimer 1.9. Fever resolved. On 8L O2 this afternoon. Sx started around 03/09. Covid pcr (+). On dex and hep gtt. With CORA but severe covid, will start remdesivir as benefits outweigh risks. Reviewed EUA and discussed risks/benefits of convalescent plasma, he agrees to start. Will follow daily labs for monitoring on remdesivir. Will follow, thank you
[2020-03-15 19:20] LABS: Urea Nitrogen, Urine 546 mg/dL (NO RANGE EST.); Urine Sodium 24 mmol/L (Not Establ.)
[2020-03-15 19:43] LABS: Partial Thromboplast Time 87.6 Seconds (24.1-36.2)
[2020-03-15] MEDS: Atorvastatin Calcium 80 MG Tablet PO (20:11)
[2020-03-15] MEDS: HEPARIN/D5w 25,000 UNITS 25,000 UNITS/250 ML IV.SOLN. 13 UNITS IV (21:11)
[2020-03-15 21:20] LABS: Bedside Glucose 408 mg/dL (70-110)
--- NOTE | 2020-03-15 21:40 | CT_ITS ---
HISTORY: INTERMITTENT DIFFICULTY SPEAKING. +COVID ADDITIONAL HISTORY: None provided. COMPARISON: None EXAMINATION/TECHNIQUE: CT Head or Brain W/O Contrast Injection. Axial, coronal and sagittal images. Number of images including paperwork: 276. A radiation dose optimization technique was used for this scan. FINDINGS: BRAIN: No acute hemorrhage or mass. No definite acute infarct; MRI more sensitive. White matter hypodensity is nonspecific but most commonly seen with chronic ischemic changes. Generalized atrophy. VENTRICULAR SYSTEM: No hydrocephalus. PARANASAL SINUSES AND MASTOIDS: No air-fluid level in the imaged extent. ORBITS: Unremarkable imaged extent. SKELETON AND SOFT TISSUES: Calvarium intact. ASPECTS score: Not applicable. CT/Brain/Head without Contrast IMPRESSION: No acute intracranial abnormality. Chronic involutional and white matter changes. Individualized dose optimization techniques were used for this CT. at 2209 Reported and signed by: Sariah Sanford MD Electronically Signed: Sariah Sanford MD at 22:09 EST Tel , Service support ,
[2020-03-16] VITALS (20 sets, daily range): BP systolic 116–155; BP diastolic 71–92; PULSE 63–78; RESP 15–20; TEMP 36.1–36.4; O2SAT 90–97
[2020-03-16 02:15] LABS: Hematocrit 26.5 % (40-54); Hemoglobin 8.7 g/dL (13.0-16.5); Mean Corp Hgb Conc 32.8 g/dL (32-36); Mean Corpuscular Hgb 26.9 pg (27.0-32.0); Mean Platelet Vol. 11.6 fl (6.2-12.0); Platelet Count 189 K/mm3 (150-450); RBC Distribution Width CV 13.5 % (11.6-14.6); RBC Distribution Width SD 40.9 fl (35.1-43.9); Red Blood Count 3.23 M/mm3 (4.6-6.2); White Blood Count 10.2 K/mm3 (4.4-11.0)
[2020-03-16 02:32] LABS: ALB/GLOB Ratio 0.6 RATIO (0.9-2.4); AST(SGOT) 56 U/L (15-37); Alanine Aminotransfer ALT/SGPT 36 U/L (16-61); Albumin, Serum 2.2 g/dL (3.2-5.0); Alkaline Phosphatase 57 U/L (45-117); Anion Gap 6 (5-15); BUN 86 mg/dL (7-18); BUN/Creat Ratio 30.1 RATIO (10-20); Calcium,Total 7.8 mg/dL (8.5-10.1); Chloride 103 mmol/L (98-107); Creatinine, Serum 2.86 mg/dL (0.70-1.30); EST Glomerular Filtration Rate 25 mL/min (>60); Est Glom Filt Rate - Afr Amer 30 mL/min (>60); Estimated Creatinine Clearance 32.55 ml/min; Glucose 309 mg/dL (74-106); Potassium 4.1 mmol/L (3.5-5.1); Protein, Total 6.2 g/dL (6.4-8.2); Sodium Level 135 mmol/L (136-145)
[2020-03-16 02:34] LABS: Partial Thromboplast Time 75.7 Seconds (24.1-36.2)
[2020-03-16] MEDS: 0.9% Normal Saline 1,000 ML 100 ML IV ×2 (06:34→16:32)
[2020-03-16 08:39] LABS: Partial Thromboplast Time 62.5 Seconds (24.1-36.2)
[2020-03-16] MEDS: hydrALAZINE 25 MG Tablet PO ×2 (09:50→20:48)
[2020-03-16] MEDS: hydrALAZINE 50 MG Tablet PO ×2 (09:50→20:48)
[2020-03-16] MEDS: Glimepiride 2 MG Tablet PO (09:50)
[2020-03-16] MEDS: dexAMETHasone 4 MG Tablet 6 MG PO (09:51)
[2020-03-16] MEDS: Clopidogrel Bisulfate 75 MG Tablet PO (09:51)
[2020-03-16] MEDS: amLODIPine 5 MG Tablet PO (09:51)
[2020-03-16] MEDS: Isosorbide Mononitrate 60 MG Tablet PO (09:51)
[2020-03-16] MEDS: Famotidine 20 MG Tablet PO (09:51)
[2020-03-16] MEDS: Insulin Lispro 100 UNIT/ML INSULN.PEN SC ×4 (09:53→20:49)
[2020-03-16] MEDS: 0.9% Saline Lock 10 ML Syringe IV (09:59)
[2020-03-16 10:36] LABS: Bedside Glucose 327 mg/dL (70-110)
--- NOTE | 2020-03-16 11:34 | PCM.PN.ID ---
Patient Problems: Active and Suspected Problems (Last Reviewed 03/14/20 @ 23:[address] Per Feliciano MD) Pneumonia due to COVID-19 virus (Acute) Subjective: Feeling great today, still on high O2. No fever, no n/v/d, wants to go home. - Physical Exam Vitals/I&O's: Vital Signs Temp Pulse Resp BP Pulse Ox 97.4 F L 76 18 116/91 H 96 03/16/20 09:45 03/16/20 09:50 03/16/20 09:45 03/16/20 09:50 03/16/20 09:45 Oxygen Flow Rate (L/min) 55 Oxygen Delivery Method Airvo Weight: 134.2 kg Body Mass Index (BMI) 41.2 Intake and Output for Last 24 Hours 03/14/20 03/15/20 03/16/20 23:59 23:59 23:59 Intake Total 4250.15 / 4250.15 1705.12 / 1705.12 Output Total 1500 / 1500 900 / 900 Balance 2750.15 / 2750.15 805.12 / 805.12 General: Alert, Cooperative, No apparent distress Lungs: Diminished Cardiovascular: Regular rate, Regular Rhythm Abdomen: Soft, Non Tender, Non-Distended Skin: No rashes Microbiology Past 72 Hours 03/15/20 18:25 Urine, Clean Catch Streptococcus pneumoniae Antigen (M - Final 03/15/20 18:25 Urine, Clean Catch Legionella Antigen - Final 03/14/20 21:33 Mucosa - Nasopharyngeal Influenza Types A,B Direct FA ([facility]) - Final Laboratory Results 03/15/20 16:18: POC Glucose > 500 H* 03/15/20 18:25: Ur Random Sodium 24, Urine Creatinine 140.00, Urine Urea Nitrogen 546 03/15/20 18:57: Blood Type A POSITIVE 03/15/20 19:14: APTT 87.6 H 03/15/20 20:09: POC Glucose 408 H 03/16/20 02:05: WBC 10.2, RBC 3.23 L, Hgb 8.7 L, Hct 26.5 L, MCV 82.0, MCH 26.9 L, MCHC 32.8, RDW Std Deviation 40.9, RDW Coeff of Rajendra 13.5, Plt Count 189, MPV 11.6 03/16/20 02:05: Sodium 135 L, Potassium 4.1, Chloride 103, Carbon Dioxide 26.0, Anion Gap 6, BUN 86 H, Creatinine 2.86 H, Estim Creat Clear Calc 32.55, Est GFR (MDRD) Af Amer 30 L, Est GFR (MDRD) Non-Af 25 L, BUN/Creatinine Ratio 30.1 H, Glucose 309 H, Calcium 7.8 L, Total Bilirubin 0.30, AST 56 H, ALT 36, Alkaline Phosphatase 57, Total Protein 6.2 L, Albumin 2.2 L, Globulin 4.0, Albumin/Globulin Ratio 0.6 L 03/16/20 02:05: APTT 75.7 H 03/16/20 08:18: APTT 62.5 H 03/16/20 09:19: POC Glucose 327 H Current Medications Acetaminophen (Acetaminophen 325 Mg Tablet) 650 mg PO Q6H PRN PRN PRN Reason: Fever of 100.4 Fahrenheit/pain 1-10 Amlodipine Besylate (Amlodipine 5 Mg Tablet) 5 mg PO DAILY@0800 [facility] Last Admin: 03/16/20 09:51 Dose: 5 mg Documented by: Aspirin (Aspirin 81 Mg Tab.Chew) 81 mg PO DAILY@0800 [facility] Last Admin: 03/15/20 09:16 Dose: 81 mg Documented by: Atorvastatin Calcium (Atorvastatin Calcium 80 Mg Tablet) 80 mg PO QHS [facility] Last Admin: 03/15/20 20:11 Dose: 80 mg Documented by: Clopidogrel Bisulfate (Clopidogrel Bisulfate 75 Mg Tablet) 75 mg PO DAILY@0800 [facility] Last Admin: 03/16/20 09:51 Dose: 75 mg Documented by: Dexamethasone (Dexamethasone 4 Mg Tablet) 6 mg PO DAILY@0800 [facility] Last Admin: 03/16/20 09:51 Dose: 6 mg Documented by: Dextrose (Dextrose 50%-Water 25 Gm/50 Ml Disp.Syrin) 0 gm IV X1 PRN; Protocol PRN Reason: Hypoglycemia Famotidine (Famotidine 20 Mg Tablet) 20 mg PO DAILY@0800 [facility] Last Admin: 03/16/20 09:51 Dose: 20 mg Documented by: Glimepiride ([facility] 2 Mg Tablet) [facility] Last Admin: 03/16/20 09:50 Dose: 2 mg Documented by: Glucagon (Glucagon 1 Mg/Ml Syringe) 1 mg IM .X1 PRN PRN Reason: Hypoglycemia Guaifenesin (Guaifenesin 10 Ml Udc (200mg/10ml)) 10 ml PO Q6H PRN PRN PRN Reason: COUGH Heparin Sodium (Porcine) (Heparin Injection (Vial) 5,000 Unit/Ml Vial) 0 unit IV UD PRN; Protocol PRN Reason: dose adjustment Hydralazine HCl (Hydralazine 50 Mg Tablet) 50 mg PO 0800,2200 [facility] Last Admin: 03/16/20 09:50 Dose: 50 mg Documented by: Hydralazine HCl (Hydralazine 25 Mg Tablet) 25 mg PO 0800,2200 [facility] Last Admin: 03/16/20 09:50 Dose: 25 mg Documented by: Sodium Chloride () 1,000 mls @ 100 mls/hr IV .Q10H [facility] Last Admin: 03/16/20 06:34 Dose: 100 mls/hr Documented by: Sodium Chloride () 250 mls @ 15 mls/hr IV .[id number] PRN PRN Reason: Saline Flush Sodium Chloride () 250 mls @ 15 mls/hr IV .[id number] PRN PRN Reason: Additional IVPB Infusion Heparin Sodium/Dextrose () 25,000 units in 250 mls @ 17 mls/hr IV .[id number] [facility]; Protocol Last Titration: 03/16/20 09:30 Dose: 1,300 units/hr, 13 mls/hr Documented by: Remdesivir 100 mg/ Sodium (Chloride) 250 mls @ 125 mls/hr IV DAILY@2200 [facility]; Protocol Stop: 03/19/20 23:59 Insulin Glargine (Insulin Glargine 100 Units/Ml Pen) 50 units SC DAILY@0800 [facility] Last Admin: 03/16/20 09:56 Dose: 50 u Documented by: Insulin Human Lispro (Insulin Lispro 100 Unit/Ml Insuln.Pen) 0 unit SC 0800,1200,1700,2200 [facility]; Protocol Last Admin: 03/16/20 11:22 Dose: 10 u Documented by: Isosorbide Mononitrate (Isosorbide Mononitrate 60 Mg Tablet) 60 mg PO DAILY@0800 [facility] Last Admin: 03/16/20 09:51 Dose: 60 mg Documented by: Labetalol HCl (Labetalol (Prefilled) 20 Mg/4 Ml) 10 mg IV Q6 PRN PRN Reason: SBP> 160 or DBP > 120 Metoprolol Succinate (Metoprolol(Xl)Succ 50 Mg Tablet) 50 mg PO DAILY@0800 [facility] Last Admin: 03/15/20 09:16 Dose: 50 mg Documented by: Sodium Chloride (0.9% Saline Lock 10 Ml Syringe) 10 - 40 ml IV UD PRN PRN Reason: SALINE FLUSH Last Admin: 03/16/20 09:59 Dose: 10 ml Documented by: Medical Necessity - Tobacco Use Smoking Status: Never smoker Route of nutrition/ use of supplements: [] Nutritional Intake: [] IV Site: [] Cruz Catheter: [] - Assessment/Plan Antibiotics: [] Assessment/Plan: [] Active and Suspected Problems (Last Reviewed 03/14/20 @ 23:[address] Per Feliciano MD) Pneumonia due to COVID-19 virus (Acute) covid with hypoxia, CORA on CKD - Elevated trop, improving. D-dimer 1.9. Fever resolved. Sx started around 03/09. Covid pcr (+). On dex and hep gtt. 03/15 started remdesivir, got plasma early AM 03/16. Now Cr and ALT much improved, sx much improved. Still on high O2, counseled him he will need to stay longer in the hospital despite improvement in symptoms. Will follow
[2020-03-16 11:51] LABS: Bedside Glucose 389 mg/dL (70-110)
--- NOTE | 2020-03-16 14:56 | PN_ITS ---
Patient Problems: Active and Suspected Problems (Last Reviewed 03/14/20 @ 23:[address] Per Feliciano MD) Pneumonia due to COVID-19 virus (Acute) Reason for Visit: COVID 19 Subjective: Upset as he is currently on Airvo and was told by some doctor that he could go home tomorrow with a decrease in his oxygen. I informed him that given the amount of oxygen that he is requiring and the slow nature will of COVID-19 that that would be unlikely. He was upset about this and stated that he is being given 2 different stories. Informed him that ultimately it is up to me when he actually goes home and he may very well require being on oxygen but not as much oxygen he is currently requiring. Vitals/I&O's: Vital Signs Temp Pulse Resp BP Pulse Ox 36.3 C L 65 15 116/91 H 96 03/16/20 09:45 03/16/20 12:10 03/16/20 12:10 03/16/20 09:50 03/16/20 12:10 Oxygen Flow Rate (L/min) 55 Oxygen Delivery Method Airvo Weight: 134.2 kg Body Mass Index (BMI) 41.2 Intake and Output for Last 24 Hours 03/14/20 03/15/20 03/16/20 23:59 23:59 23:59 Intake Total 4250.15 / 4250.15 1705.12 / 1705.12 Output Total 1500 / 1500 900 / 900 Balance 2750.15 / 2750.15 805.12 / 805.12 General: Alert, No apparent distress HEENT: Atraumatic, PERRLA, Normocephalic Oral: Moist Mucosa, No Gingival or Mucosal Lesions/ Ulcerations Neck: No Nodes, Thyroid Normal Size and Texture Lungs: Clear to auscultation, Normal air movement, No rhonchi, No wheeze Cardiovascular: Regular rate, Regular Rhythm, Normal S1, Normal S2 Abdomen: Bowel Sounds Present, Soft, Non Tender, Non-Distended, No Hepato- splenomegaly Extremities: No Calf Tenderness, Edema Skin: No rashes, No breakdown Psych/Mental Status: Normal Affect, Appropriate Microbiology Past 72 Hours 03/15/20 18:25 Urine, Clean Catch Streptococcus pneumoniae Antigen (M - Final 03/15/20 18:25 Urine, Clean Catch Legionella Antigen - Final 03/14/20 21:33 Mucosa - Nasopharyngeal Influenza Types A,B Direct FA ([facility]) - Final Laboratory Results 03/15/20 16:18: POC Glucose > 500 H* 03/15/20 18:25: Ur Random Sodium 24, Urine Creatinine 140.00, Urine Urea Nitrogen 546 03/15/20 18:57: Blood Type A POSITIVE 03/15/20 19:14: APTT 87.6 H 03/15/20 20:09: POC Glucose 408 H 03/16/20 02:05: WBC 10.2, RBC 3.23 L, Hgb 8.7 L, Hct 26.5 L, MCV 82.0, MCH 26.9 L, MCHC 32.8, RDW Std Deviation 40.9, RDW Coeff of Rajendra 13.5, Plt Count 189, MPV 11.6 03/16/20 02:05: Sodium 135 L, Potassium 4.1, Chloride 103, Carbon Dioxide 26.0, Anion Gap 6, BUN 86 H, Creatinine 2.86 H, Estim Creat Clear Calc 32.55, Est GFR (MDRD) Af Amer 30 L, Est GFR (MDRD) Non-Af 25 L, BUN/Creatinine Ratio 30.1 H, G lucose 309 H, Calcium 7.8 L, Total Bilirubin 0.30, AST 56 H, ALT 36, Alkaline Phosphatase 57, Total Protein 6.2 L, Albumin 2.2 L, Globulin 4.0, Albumin/Globulin Ratio 0.6 L 03/16/20 02:05: APTT 75.7 H 03/16/20 08:18: APTT 62.5 H 03/16/20 09:19: POC Glucose 327 H 03/16/20 11:21: POC Glucose 389 H Current Medications Acetaminophen (Acetaminophen 325 Mg Tablet) 650 mg PO Q6H PRN PRN PRN Reason: Fever of 100.4 Fahrenheit/pain 1-10 Amlodipine Besylate (Amlodipine 5 Mg Tablet) 5 mg PO DAILY@0800 [facility] Last Admin: 03/16/20 09:51 Dose: 5 mg Documented by: Aspirin (Aspirin 81 Mg Tab.Chew) 81 mg PO DAILY@0800 [facility] Last Admin: 03/15/20 09:16 Dose: 81 mg Documented by: Atorvastatin Calcium (Atorvastatin Calcium 80 Mg Tablet) 80 mg PO QHS [facility] Last Admin: 03/15/20 20:11 Dose: 80 mg Documented by: Clopidogrel Bisulfate (Clopidogrel Bisulfate 75 Mg Tablet) 75 mg PO DAILY@0800 [facility] Last Admin: 03/16/20 09:51 Dose: 75 mg Documented by: Dexamethasone (Dexamethasone 4 Mg Tablet) 6 mg PO DAILY@0800 [facility] Last Admin: 03/16/20 09:51 Dose: 6 mg Documented by: Dextrose (Dextrose 50%-Water 25 Gm/50 Ml Disp.Syrin) 0 gm IV X1 PRN; Protocol PRN Reason: Hypoglycemia Famotidine (Famotidine 20 Mg Tablet) 20 mg PO DAILY@0800 [facility] Last Admin: 03/16/20 09:51 Dose: 20 mg Documented by: Glimepiride (Glimepiride 2 Mg Tablet) 2 mg PO DAILYCM [facility] Last Admin: 03/16/20 09:50 Dose: 2 mg Documented by: Glucagon (Glucagon 1 Mg/Ml Syringe) 1 mg IM .X1 PRN PRN Reason: Hypoglycemia Guaifenesin (Guaifenesin 10 Ml Udc (200mg/10ml)) 10 ml PO Q6H PRN PRN PRN Reason: COUGH Heparin Sodium (Porcine) (Heparin Injection (Vial) 5,000 Unit/Ml Vial) 0 unit IV UD PRN; Protocol PRN Reason: dose adjustment Hydralazine HCl (Hydralazine 50 Mg Tablet) 50 mg PO 0800,2200 [facility] Last Admin: 03/16/20 09:50 Dose: 50 mg Documented by: Hydralazine HCl (Hydralazine 25 Mg Tablet) 25 mg PO 0800,2200 [facility] Last Admin: 03/16/20 09:50 Dose: 25 mg Documented by: Sodium Chloride () 1,000 mls @ 100 mls/hr IV .Q10H [facility] Last Admin: 03/16/20 06:34 Dose: 100 mls/hr Documented by: Sodium Chloride () 250 mls @ 15 mls/hr IV .[id number] PRN PRN Reason: Saline Flush Sodium Chloride () 250 mls @ 15 mls/hr IV .[id number] PRN PRN Reason: Additional IVPB Infusion Heparin Sodium/Dextrose () 25,000 units in 250 mls @ 17 mls/hr IV .[id number] [facility]; Protocol Last Titration: 03/16/20 09:30 Dose: 1,300 units/hr, 13 mls/hr Documented by: Remdesivir 100 mg/ Sodium (Chloride) 250 mls @ 125 mls/hr IV DAILY@2200 [facility]; Protocol Stop: 03/19/20 23:59 Insulin Glargine (Insulin Glargine 100 Units/Ml Pen) 50 units SC DAILY@0800 [facility] Last Admin: 03/16/20 09:56 Dose: 50 u Documented by: Insulin Human Lispro (Insulin Lispro 100 Unit/Ml Insuln.Pen) 0 unit SC 0800,1200,1700,2200 [facility]; Protocol Last Admin: 03/16/20 11:22 Dose: 10 u Documented by: Isosorbide Mononitrate (Isosorbide Mononitrate 60 Mg Tablet) 60 mg PO DAILY@0800 [facility] Last Admin: 03/16/20 09:51 Dose: 60 mg Documented by: Labetalol HCl (Labetalol (Prefilled) 20 Mg/4 Ml) 10 mg IV Q6 PRN PRN Reason: SBP> 160 or DBP > 120 Metoprolol Succinate (Metoprolol(Xl)Succ 50 Mg Tablet) 50 mg PO DAILY@0800 [facility] Last Admin: 03/15/20 09:16 Dose: 50 mg Documented by: Sodium Chloride (0.9% Saline Lock 10 Ml Syringe) 10 - 40 ml IV UD PRN PRN Reason: SALINE FLUSH Last Admin: 03/16/20 09:59 Dose: 10 ml Documented by: STROKE Vital Signs/Narrative: Vital Signs Pulse Resp Pulse Ox 03/16/20 12:10 65 15 96 03/16/20 11:00 69 Medical Necessity - Tobacco Use Smoking Status: Never smoker Assessment/Plan All Active Problems (Last Reviewed 03/14/20 @ 23:[address] Per Feliciano MD) Pneumonia due to COVID-19 virus (Acute) 1. acute hypoxic respiratory failure * 2/2 COVID 19 pneumonia, ALI * wean oxygen as tolerated 2. Acute COVID 19 pneumonia * on dexamethasone * remdesivir * Infectious isease consultation 3. Non-STEMI * Likely demand due to COVID-19, hypoxia * Troponins have been trending down, peak troponin 0.615 * Continue with therapeutic anticoagulation for now * Discussed with Dr. Ken who stated the patient would not be a candidate for catheterization procedure with his kidney disease and did not feel an echocardiogram would change his management at this time. We will hold off on cardiology consult unless patient condition changes. * continue with medical therapy: ASA, clopidogrel, HIS 4.CORA * improving * baseline creatinine 2.4 (from 09/29) went up to 3.28 * hold nephrotoxic agents: furosemide 5. DM2 * uncontrolled * exacerbated by steroids * on basal and SSI * monitor for now, but if remains elevated, will likely make adjustments 6. VTE prophylaxis: anticoagulated. Again, discussed with the patient at length that his presentation with COVID-19 in the hospital is not atypical. Explained that improvements, once patients are hospitalized with COVID-19, tend to be slow though worsening can occur very quickly. Inpatient E&M: 61812 Subs Hosp L2
[2020-03-16] MEDS: APIXABAN 5 MG TABLET PO ×2 (16:33→20:48)
[2020-03-16 17:25] LABS: Bedside Glucose 364 mg/dL (70-110)
--- NOTE | 2020-03-16 19:36 | PCS.PANDOC ---
PANDEMIC DOCUMENTATION INITIATED: Date: 03/16/2020 Time: 0200
[2020-03-16] MEDS: Atorvastatin Calcium 80 MG Tablet PO (20:49)
[2020-03-16 21:01] LABS: Bedside Glucose 366 mg/dL (70-110)
[2020-03-17] VITALS (20 sets, daily range): BP systolic 158–174; BP diastolic 77–89; PULSE 69–77; RESP 16–21; TEMP 36.1–36.6; O2SAT 92–98
[2020-03-17] MEDS: 0.9% Normal Saline 1,000 ML 100 ML IV ×3 (00:09→21:01)
[2020-03-17] MEDS: Labetalol (Prefilled) 20 MG/4 ML 10 MG IV ×2 (06:06→16:56)
[2020-03-17] MEDS: 0.9% Saline Lock 10 ML Syringe IV (06:06)
[2020-03-17 06:38] LABS: Hematocrit 27.3 % (40-54); Hemoglobin 8.8 g/dL (13.0-16.5); Mean Corp Hgb Conc 32.2 g/dL (32-36); Mean Corpuscular Hgb 26.7 pg (27.0-32.0); Mean Corpuscular Volume 82.7 fL (80-94); Mean Platelet Vol. 11.6 fl (6.2-12.0); Platelet Count 231 K/mm3 (150-450); RBC Distribution Width CV 13.9 % (11.6-14.6); RBC Distribution Width SD 41.6 fl (35.1-43.9)
[2020-03-17 07:12] LABS: ALB/GLOB Ratio 0.6 RATIO (0.9-2.4); AST(SGOT) 41 U/L (15-37); Alanine Aminotransfer ALT/SGPT 31 U/L (16-61); Albumin, Serum 2.1 g/dL (3.2-5.0); Alkaline Phosphatase 61 U/L (45-117); Anion Gap 7 (5-15); BUN 78 mg/dL (7-18); BUN/Creat Ratio 36.3 RATIO (10-20); Calcium,Total 7.7 mg/dL (8.5-10.1); Chloride 110 mmol/L (98-107); Creatinine, Serum 2.15 mg/dL (0.70-1.30); EST Glomerular Filtration Rate 35 mL/min (>60); Est Glom Filt Rate - Afr Amer 42 mL/min (>60); Estimated Creatinine Clearance 43.29 ml/min; Globulin 3.8 g/dL (2.2-4.2); Glucose 325 mg/dL (74-106); Potassium 4.1 mmol/L (3.5-5.1); Protein, Total 5.9 g/dL (6.4-8.2); Sodium Level 142 mmol/L (136-145)
[2020-03-17] MEDS: Aspirin 81 MG TAB.CHEW PO (08:23)
[2020-03-17] MEDS: Metoprolol(XL)Succ 50 MG Tablet PO (08:23)
[2020-03-17] MEDS: Isosorbide Mononitrate 60 MG Tablet PO ×2 (08:24)
[2020-03-17] MEDS: Clopidogrel Bisulfate 75 MG Tablet PO (08:24)
[2020-03-17] MEDS: Famotidine 20 MG Tablet PO (08:24)
[2020-03-17] MEDS: dexAMETHasone 4 MG Tablet 6 MG PO (08:25)
[2020-03-17] MEDS: Glimepiride 2 MG Tablet PO (08:25)
[2020-03-17] MEDS: hydrALAZINE 25 MG Tablet PO ×2 (08:25→21:21)
[2020-03-17] MEDS: hydrALAZINE 50 MG Tablet PO ×2 (08:25→21:21)
[2020-03-17] MEDS: APIXABAN 5 MG TABLET PO ×2 (08:26→21:21)
[2020-03-17] MEDS: amLODIPine 5 MG Tablet PO (08:26)
[2020-03-17] MEDS: Insulin Lispro 100 UNIT/ML INSULN.PEN SC ×4 (08:31→21:30)
[2020-03-17 09:45] LABS: Bedside Glucose 337 mg/dL (70-110)
[2020-03-17 11:10] LABS: Bedside Glucose 374 mg/dL (70-110)
--- NOTE | 2020-03-17 16:38 | PCM.PN.ID ---
Patient Problems: Active and Suspected Problems (Last Reviewed 03/14/20 @ 23:[address] Per Feliciano MD) Pneumonia due to COVID-19 virus (Acute) Subjective: Feeling better, frustrated about his O2 level. - Physical Exam Vitals/I&O's: Vital Signs Temp Pulse Resp BP Pulse Ox 97.8 F 74 17 158/89 H 96 03/17/20 08:40 03/17/20 11:00 03/17/20 08:40 03/17/20 08:40 03/17/20 14:56 Oxygen Flow Rate (L/min) 45 Oxygen Delivery Method Airvo Weight: 134.2 kg Body Mass Index (BMI) 41.2 Intake and Output for Last 24 Hours 03/15/20 03/16/20 03/17/20 23:59 23:59 23:59 Intake Total 4250.15 / 4250.15 4523.34 / 4523.34 1118.33 / 1118.33 Output Total 1500 / 1500 1500 / 1500 800 / 800 Balance 2750.15 / 2750.15 3023.34 / 3023.34 318.33 / 318.33 General: Alert, Cooperative, No apparent distress Lungs: Diminished Cardiovascular: Regular rate, Regular Rhythm Abdomen: Soft, Non Tender, Non-Distended Skin: No rashes Microbiology Past 72 Hours 03/14/20 21:18 Blood Culture (Wb) #2 - Left Hand Blood Culture - Preliminary No growth in 48 hours. 03/14/20 21:20 Blood Culture (Wb) - Anticubital Right Blood Culture - Preliminary No growth in 48 hours. 03/15/20 18:25 Urine, Clean Catch Streptococcus pneumoniae Antigen (M - Final 03/15/20 18:25 Urine, Clean Catch Legionella Antigen - Final 03/14/20 21:33 Mucosa - Nasopharyngeal Influenza Types A,B Direct FA ([facility]) - Final Laboratory Results 03/16/20 16:36: POC Glucose 364 H 03/16/20 20:46: POC Glucose 366 H 03/17/20 05:54: WBC 10.0, RBC 3.30 L, Hgb 8.8 L, Hct 27.3 L, MCV 82.7, MCH 26.7 L, MCHC 32.2, RDW Std Deviation 41.6, RDW Coeff of Rajendra 13.9, Plt Count 231, MPV 11.6 03/17/20 05:54: Sodium 142, Potassium 4.1, Chloride 110 H, Carbon Dioxide 25.0, Anion Gap 7, BUN 78 H, Creatinine 2.15 H, Estim Creat Clear Calc 43.29, Est GFR (MDRD) Af Amer 42 L, Est GFR (MDRD) Non-Af 35 L, BUN/Creatinine Ratio 36.3 H, Glucose 325 H, Calcium 7.7 L, Total Bilirubin 0.50, AST 41 H, ALT 31, Alkaline Phosphatase 61, Total Protein 5.9 L, Albumin 2.1 L, Globulin 3.8, Albumin/Globulin Ratio 0.6 L 03/17/20 08:23: POC Glucose 337 H 03/17/20 10:59: POC Glucose 374 H Current Medications Acetaminophen (Acetaminophen 325 Mg Tablet) 650 mg PO Q6H PRN PRN PRN Reason: Fever of 100.4 Fahrenheit/pain 1-10 Amlodipine Besylate (Amlodipine 5 Mg Tablet) 5 mg PO DAILY@0800 [facility] Last Admin: 03/17/20 08:26 Dose: 5 mg Documented by: Apixaban (Apixaban 5 Mg Tablet) 5 mg PO BID [facility] Last Admin: 03/17/20 08:26 Dose: 5 mg Documented by: Aspirin (Aspirin 81 Mg Tab.Chew) 81 mg PO DAILY@08 [facility] Last Admin: 03/17/20 08:23 Dose: 81 mg Documented by: Atorvastatin Calcium (Atorvastatin Calcium 80 Mg Tablet) 80 mg PO QHS [facility] Last Admin: 03/16/20 20:49 Dose: 80 mg Documented by: Clopidogrel Bisulfate (Clopidogrel Bisulfate 75 Mg Tablet) 75 mg PO DAILY@08 [facility] Last Admin: 03/17/20 08:24 Dose: 75 mg Documented by: Dexamethasone (Dexamethasone 4 Mg Tablet) 6 mg PO DAILY@0800 [facility] Last Admin: 03/17/20 08:25 Dose: 6 mg Documented by: Dextrose (Dextrose 50%-Water 25 Gm/50 Ml Disp.Syrin) 0 gm IV X1 PRN; Protocol PRN Reason: Hypoglycemia Famotidine (Famotidine 20 Mg Tablet) 20 mg PO DAILY@0800 [facility] Last Admin: 03/17/20 08:24 Dose: 20 mg Documented by: Glimepiride ([facility] 2 Mg [facility]) [facility] Admin: 12/09/20 08:25 Dose: 2 mg Documented by: Glucagon (Glucagon 1 Mg/Ml Syringe) 1 mg IM .X1 PRN PRN Reason: Hypoglycemia Guaifenesin (Guaifenesin 10 Ml Udc (200mg/10ml)) 10 ml PO Q6H PRN PRN PRN Reason: COUGH Hydralazine HCl (Hydralazine 50 Mg Tablet) 50 mg PO 0800,2200 [facility] Last Admin: 03/17/20 08:25 Dose: 50 mg Documented by: Hydralazine HCl (Hydralazine 25 Mg Tablet) 25 mg PO 0800,2200 [facility] Last Admin: 03/17/20 08:25 Dose: 25 mg Documented by: Sodium Chloride () 1,000 mls @ 100 mls/hr IV .Q10H [facility] Last Admin: 03/17/20 11:00 Dose: 100 mls/hr Documented by: Sodium Chloride () 250 mls @ 15 mls/hr IV .[id number] PRN PRN Reason: Saline Flush Sodium Chloride () 250 mls @ 15 mls/hr IV .[id number] PRN PRN Reason: Additional IVPB Infusion Remdesivir 100 mg/ Sodium (Chloride) 250 mls @ 125 mls/hr IV DAILY@2200 [facility]; Protocol Stop: 03/19/20 23:59 Last Infusion: 03/16/20 23:57 Dose: Infused Documented by: Insulin Glargine (Insulin Glargine 100 Units/Ml Pen) 50 units SC DAILY@0800 [facility] Last Admin: 03/17/20 08:30 Dose: 50 u Documented by: Insulin Human Lispro (Insulin Lispro 100 Unit/Ml Insuln.Pen) 0 unit SC 0800,1200,1700,2200 [facility]; Protocol Last Admin: 03/17/20 11:00 Dose: 8 u Documented by: Isosorbide Mononitrate (Isosorbide Mononitrate 60 Mg Tablet) 60 mg PO DAILY@0800 [facility] Last Admin: 03/17/20 08:24 Dose: 60 mg Documented by: Labetalol HCl (Labetalol (Prefilled) 20 Mg/4 Ml) 10 mg IV Q6 PRN PRN Reason: SBP> 160 or DBP > 120 Last Admin: 12/09/20 06:06 Dose: 10 mg Documented by: Metoprolol Succinate (Metoprolol(Xl)Succ 50 Mg Tablet) 50 mg PO DAILY@0800 [facility] Last Admin: 03/17/20 08:23 Dose: 50 mg Documented by: Sodium Chloride (0.9% Saline Lock 10 Ml Syringe) 10 - 40 ml IV UD PRN PRN Reason: SALINE FLUSH Last Admin: 03/17/20 06:06 Dose: 10 ml Documented by: Medical Necessity - Tobacco Use Smoking Status: Never smoker Route of nutrition/ use of supplements: [] Nutritional Intake: [] IV Site: [] Cruz Catheter: [] - Assessment/Plan Antibiotics: [] Assessment/Plan: [] Active and Suspected Problems (Last Reviewed 03/14/20 @ 23:[address] Per Feliciano MD) Pneumonia due to COVID-19 virus (Acute) covid with hypoxia, CORA on CKD - Elevated trop, improving. D-dimer 1.9. Fever resolved. Sx started around 03/09. Covid pcr (+). On dex and hep gtt. 03/15 started remdesivir, got plasma early AM 03/16. Now Cr and ALT much improved, sx much improved. Still on high O2, counseled him he will need to stay longer in the hospital despite improvement in symptoms. He's eating and drinking, recommend cutting back on maintenance IV fluids. Will get BNP in AM. Will follow
--- NOTE | 2020-03-17 16:59 | PCM.PN.HOSP ---
Patient Problems: Active and Suspected Problems (Last Reviewed 03/14/20 @ 23:[address] Per Feliciano MD) Pneumonia due to COVID-19 virus (Acute) Reason for Visit: COVID 19 Subjective: Patient still upset about being here and asked why we do not lower his oxygen. Explained to him that we have but he is just not physically ready for further decrease. He asked if he can just be taken off his Airvo so that he can use the toilet as he is upset about the commode as he had a mass and then was upset because his gown was soiled and did not have a gown immediately replaced. When he is talking about this is a aide comes in the room to provide a gown. He was upset that no doctor has seen him but stated that Dr. Nick, who was in the room same time I was, has seen him. I reminded the patient that I had seen him yesterday as well as the day before. He stated that he had not been seen until 4:00 today and asked why he had not been seen by this time. I informed the patient that I did review his data earlier in the day and noted that he was still on heroin though not medically ready for discharge at this time and that other patient issues to attend to. He was dissatisfied with response and again asked to why I had not seen him until 4 PM today I again reiterated what I just told him and then again he stated that I should have seen him before now. Explained the patient that he is medically not ready for discharge yet we will continue to try to wean his oxygen. And he states that he just wants to go home. Again informed him that he is not medically ready to be discharged home and that if he were to go home now he could . He stated that we are forcing him to stay in the hospital. I told him that we are not and that he is free to go and that if he does he would be leaving AGAINST MEDICAL ADVICE and I did not encourage that. This is what I told him the day before as well. He stated that he was going to call the chief wellness officer because I am forcing him out of the hospital. I told him I am not discharging him and I do not feel that he should leave the hospital. He told me to wait in the room so that he could call the chief wellness officer. I told him that if he called the chief wellness officer I will be available to speak with them. Vitals/I&O's: Vital Signs Temp Pulse Resp BP Pulse Ox 36.6 C 72 18 174/85 H 96 03/17/20 14:40 03/17/20 14:40 03/17/20 14:40 03/17/20 14:40 03/17/20 14:56 Oxygen Flow Rate (L/min) 45 Oxygen Delivery Method Airvo Weight: 134.2 kg Body Mass Index (BMI) 41.2 Intake and Output for Last 24 Hours 03/15/20 03/16/20 03/17/20 23:59 23:59 23:59 Intake Total 4250.15 / 4250.15 4523.34 / 4523.34 1478.33 / 1478.33 Output Total 1500 / 1500 1500 / 1500 1700 / 1700 Balance 2750.15 / 2750.15 3023.34 / 3023.34 -221.67 / -221.67 General: Alert, No apparent distress HEENT: Atraumatic, Normocephalic Oral: Moist Mucosa, No Gingival or Mucosal Lesions/ Ulcerations Psych/Mental Status: Normal Affect, Appropriate Microbiology Past 72 Hours 03/14/20 21:18 Blood Culture (Wb) #2 - Left Hand Blood Culture - Preliminary No growth in 48 hours. 03/14/20 21:20 Blood Culture (Wb) - Anticubital Right Blood Culture - Preliminary No growth in 48 hours. 03/15/20 18:25 Urine, Clean Catch Streptococcus pneumoniae Antigen (M - Final 03/15/20 18:25 Urine, Clean Catch Legionella Antigen - Final 03/14/20 21:33 Mucosa - Nasopharyngeal Influenza Types A,B Direct FA ([facility]) - Final Laboratory Results 03/16/20 16:36: POC Glucose 364 H 03/16/20 20:46: POC Glucose 366 H 03/17/20 05:54: WBC 10.0, RBC 3.30 L, Hgb 8.8 L, Hct 27.3 L, MCV 82.7, MCH 26.7 L, MCHC 32.2, RDW Std Deviation 41.6, RDW Coeff of Rajendra 13.9, Plt Count 231, MPV 11.6 03/17/20 05:54: Sodium 142, Potassium 4.1, Chloride 110 H, Carbon Dioxide 25.0, Anion Gap 7, BUN 78 H, Creatinine 2.15 H, Estim Creat Clear Calc 43.29, Est GFR (MDRD) Af Amer 42 L, Est GFR (MDRD) Non-Af 35 L, BUN/Creatinine Ratio 36.3 H, Glucose 325 H, Calcium 7.7 L, Total Bilirubin 0.50, AST 41 H, ALT 31, Alkaline Phosphatase 61, Total Protein 5.9 L, Albumin 2.1 L, Globulin 3.8, Albumin/Globulin Ratio 0.6 L 03/17/20 08:23: POC Glucose 337 H 03/17/20 10:59: POC Glucose 374 H Current Medications Acetaminophen (Acetaminophen 325 Mg Tablet) 650 mg PO Q6H PRN PRN PRN Reason: Fever of 100.4 Fahrenheit/pain 1-10 Amlodipine Besylate (Amlodipine 5 Mg Tablet) 5 mg PO DAILY@0800 [facility] Last Admin: 03/17/20 08:26 Dose: 5 mg Documented by: Apixaban (Apixaban 5 Mg Tablet) 5 mg PO BID [facility] Last Admin: 03/17/20 08:26 Dose: 5 mg Documented by: Aspirin (Aspirin 81 Mg Tab.Chew) 81 mg PO DAILY@0800 [facility] Last Admin: 03/17/20 08:23 Dose: 81 mg Documented by: Atorvastatin Calcium (Atorvastatin Calcium 80 Mg Tablet) 80 mg PO QHS [facility] Last Admin: 03/16/20 20:49 Dose: 80 mg Documented by: Clopidogrel Bisulfate (Clopidogrel Bisulfate 75 Mg Tablet) 75 mg PO DAILY@0800 [facility] Last Admin: 03/17/20 08:24 Dose: 75 mg Documented by: Dexamethasone (Dexamethasone 4 Mg Tablet) 6 mg PO DAILY@0800 [facility] Last Admin: 03/17/20 08:25 Dose: 6 mg Documented by: Dextrose (Dextrose 50%-Water 25 Gm/50 Ml Disp.Syrin) 0 gm IV X1 PRN; Protocol PRN Reason: Hypoglycemia Famotidine (Famotidine 20 Mg Tablet) 20 mg PO DAILY@0800 [facility] Last Admin: 03/17/20 08:24 Dose: 20 mg Documented by: Glimepiride (Glimepiride 2 Mg Tablet) 2 mg PO DAILYCM [facility] Last Admin: 03/17/20 08:25 Dose: 2 mg Documented by: Glucagon (Glucagon 1 Mg/Ml Syringe) 1 mg IM .X1 PRN PRN Reason: Hypoglycemia Guaifenesin (Guaifenesin 10 Ml Udc (200mg/10ml)) 10 ml PO Q6H PRN PRN PRN Reason: COUGH Hydralazine HCl (Hydralazine 50 Mg Tablet) 50 mg PO 0800,2200 [facility] Last Admin: 03/17/20 08:25 Dose: 50 mg Documented by: Hydralazine HCl (Hydralazine 25 Mg Tablet) 25 mg PO 0800,2200 [facility] Last Admin: 03/17/20 08:25 Dose: 25 mg Documented by: Sodium Chloride () 1,000 mls @ 100 mls/hr IV .Q10H [facility] Last Admin: 03/17/20 11:00 Dose: 100 mls/hr Documented by: Sodium Chloride () 250 mls @ 15 mls/hr IV .[id number] PRN PRN Reason: Saline Flush Sodium Chloride () 250 mls @ 15 mls/hr IV .[id number] PRN PRN Reason: Additional IVPB Infusion Remdesivir 100 mg/ Sodium (Chloride) 250 mls @ 125 mls/hr IV DAILY@2200 [facility]; Protocol Stop: 03/19/20 23:59 Last Infusion: 03/16/20 23:57 Dose: Infused Documented by: Insulin Glargine (Insulin Glargine 100 Units/Ml Pen) 50 units SC DAILY@0800 [facility] Last Admin: 03/17/20 08:30 Dose: 50 u Documented by: Insulin Human Lispro (Insulin Lispro 100 Unit/Ml Insuln.Pen) 0 unit SC 0800,1200,1700,2200 [facility]; Protocol Last Admin: 03/17/20 16:42 Dose: 8 u Documented by: Isosorbide Mononitrate (Isosorbide Mononitrate 60 Mg Tablet) 60 mg PO DAILY@0800 [facility] Last Admin: 03/17/20 08:24 Dose: 60 mg Documented by: Labetalol HCl (Labetalol (Prefilled) 20 Mg/4 Ml) 10 mg IV Q6 PRN PRN Reason: SBP> 160 or DBP > 120 Last Admin: 03/17/20 06:06 Dose: 10 mg Documented by: Metoprolol Succinate (Metoprolol(Xl)Succ 50 Mg Tablet) 50 mg PO DAILY@0800 [facility] Last Admin: 03/17/20 08:23 Dose: 50 mg Documented by: Sodium Chloride (0.9% Saline Lock 10 Ml Syringe) 10 - 40 ml IV UD PRN PRN Reason: SALINE FLUSH Last Admin: 03/17/20 06:06 Dose: 10 ml Documented by: STROKE Vital Signs/Narrative: Vital Signs Temp Pulse Resp BP Pulse Ox 03/17/20 14:56 96 03/17/20 14:40 36.6 C 72 18 174/85 H 95 Medical Necessity - Tobacco Use Smoking Status: Never smoker Assessment/Plan All Active Problems (Last Reviewed 03/14/20 @ 23:[address] Per Feliciano MD) Pneumonia due to COVID-19 virus (Acute) 1. acute hypoxic respiratory failure Slowly improving 2/2 COVID 19 pneumonia, ALI wean oxygen as tolerated Will initiate IV furosemide 2. Acute COVID 19 pneumonia on dexamethasone remdesivir Infectious isease consultation 3. Non-STEMI Likely demand due to COVID-19, hypoxia Troponins have been trending down, peak troponin 0.615 Continue with therapeutic anticoagulation for now Discussed with Dr. Ken who stated the patient would not be a candidate for catheterization procedure with his kidney disease and did not feel an echocardiogram would change his management at this time. We will hold off on cardiology consult unless patient condition changes. continue with medical therapy: ASA, clopidogrel, HIS 4.CORA improving baseline creatinine 2.4 (from 09/29) went up to 3.28 hold nephrotoxic agents: furosemide 5. DM2 uncontrolled exacerbated by steroids on basal and SSI monitor for now, but if remains elevated, will likely make adjustments 6. VTE prophylaxis: anticoagulated. Again, discussed with the patient at length that his presentation with COVID-19 in the hospital is not atypical. Explained that improvements, once patients are hospitalized with COVID-19, tend to be slow though worsening can occur very quickly. Greater than 35 minutes of which greater than 50% of time was counseling the patient about COVID-19, and slow progression to improvement and reiterating that he is overall better but not ready for discharge. Please see the subjective for further details. Inpatient E&M: [id number] [facility] Hosp L3
[2020-03-17 17:26] LABS: Bedside Glucose 356 mg/dL (70-110)
--- NOTE | 2020-03-17 20:19 | CPS ---
changed water bottle
[2020-03-17] MEDS: Atorvastatin Calcium 80 MG Tablet PO (21:21)
[2020-03-17 23:11] LABS: Bedside Glucose 422 mg/dL (70-110)
[2020-03-18] VITALS (16 sets, daily range): BP systolic 151–181; BP diastolic 79–91; PULSE 64–78; RESP 14–22; TEMP 36.2–36.8; O2SAT 93–97
[2020-03-18] MEDS: Labetalol (Prefilled) 20 MG/4 ML 10 MG IV (06:39)
[2020-03-18] MEDS: 0.9% Saline Lock 10 ML Syringe IV (06:40)
[2020-03-18] MEDS: 0.9% Normal Saline 1,000 ML 100 ML IV (07:01)
[2020-03-18 07:50] LABS: Hematocrit 29.4 % (40-54); Hemoglobin 9.5 g/dL (13.0-16.5); Mean Corp Hgb Conc 32.3 g/dL (32-36); Mean Corpuscular Hgb 26.7 pg (27.0-32.0); Mean Corpuscular Volume 82.6 fL (80-94); Mean Platelet Vol. 10.7 fl (6.2-12.0); Platelet Count 276 K/mm3 (150-450); RBC Distribution Width CV 13.9 % (11.6-14.6); RBC Distribution Width SD 41.9 fl (35.1-43.9); Red Blood Count 3.56 M/mm3 (4.6-6.2); White Blood Count 11.2 K/mm3 (4.4-11.0)
[2020-03-18 08:09] LABS: ALB/GLOB Ratio 0.7 RATIO (0.9-2.4); AST(SGOT) 40 U/L (15-37); Alanine Aminotransfer ALT/SGPT 38 U/L (16-61); Albumin, Serum 2.3 g/dL (3.2-5.0); Alkaline Phosphatase 61 U/L (45-117); Anion Gap 9 (5-15); BUN 63 mg/dL (7-18); BUN/Creat Ratio 36.4 RATIO (10-20); Calcium,Total 7.6 mg/dL (8.5-10.1); Chloride 109 mmol/L (98-107); Creatinine, Serum 1.73 mg/dL (0.70-1.30); EST Glomerular Filtration Rate 44 mL/min (>60); Est Glom Filt Rate - Afr Amer 54 mL/min (>60); Globulin 3.3 g/dL (2.2-4.2); Glucose 298 mg/dL (74-106); Potassium 3.8 mmol/L (3.5-5.1); Protein, Total 5.6 g/dL (6.4-8.2); Sodium Level 141 mmol/L (136-145)
[2020-03-18] MEDS: Insulin Lispro 100 UNIT/ML INSULN.PEN SC ×4 (08:19→22:15)
[2020-03-18 08:26] LABS: Bedside Glucose 295 mg/dL (70-110)
[2020-03-18] MEDS: Aspirin 81 MG TAB.CHEW PO (08:28)
[2020-03-18] MEDS: Famotidine 20 MG Tablet PO (08:28)
[2020-03-18] MEDS: Glimepiride 2 MG Tablet PO (08:29)
[2020-03-18] MEDS: Metoprolol(XL)Succ 50 MG Tablet PO (08:29)
[2020-03-18] MEDS: APIXABAN 5 MG TABLET PO ×2 (08:29→22:15)
[2020-03-18] MEDS: hydrALAZINE 50 MG Tablet PO ×2 (08:29→22:16)
[2020-03-18] MEDS: hydrALAZINE 25 MG Tablet PO ×2 (08:29→22:14)
[2020-03-18] MEDS: dexAMETHasone 4 MG Tablet 6 MG PO (08:30)
[2020-03-18] MEDS: amLODIPine 5 MG Tablet PO (08:30)
[2020-03-18] MEDS: Clopidogrel Bisulfate 75 MG Tablet PO (08:34)
[2020-03-18 09:07] LABS: BNP,B-Type NATRIURETIC PEPTIDE 161.5 pg/mL (0-100)
--- NOTE | 2020-03-18 11:14 | PCM.PN.ID ---
Patient Problems: Active and Suspected Problems (Last Reviewed 03/14/20 @ 23:[address] Per Feliciano MD) Pneumonia due to COVID-19 virus (Acute) Subjective: Some nausea, breathing better, no fever - Physical Exam Vitals/I&O's: Vital Signs Temp Pulse Resp BP Pulse Ox 98.2 F 69 20 H 166/79 H 95 03/18/20 08:35 03/18/20 10:38 03/18/20 10:38 03/18/20 08:35 03/18/20 10:38 Oxygen Flow Rate (L/min) 45 Oxygen Delivery Method Airvo Weight: 134.2 kg Body Mass Index (BMI) 41.2 Intake and Output for Last 24 Hours 03/16/20 03/17/20 03/18/20 23:59 23:59 23:59 Intake Total 4523.34 / 4523.34 3246.66 / 3246.66 1825 / 1825 Output Total 1500 / 1500 2350 / 2350 1050 / 1050 Balance 3023.34 / 3023.34 896.66 / 896.66 775 / 775 General: Alert, Cooperative, No apparent distress Lungs: Clear to auscultation, Diminished Cardiovascular: Regular rate, Regular Rhythm Abdomen: Soft, Non Tender, Non-Distended Skin: No rashes Microbiology Past 72 Hours 03/18/20 03:30 Stool Enteric Bacteriology - Final 03/18/20 03:30 Stool C. difficile DNA Amplification - Final 03/14/20 21:18 Blood Culture (Wb) #2 - Left Hand Blood Culture - Preliminary No growth in 48 hours. 03/14/20 21:20 Blood Culture (Wb) - Anticubital Right Blood Culture - Preliminary No growth in 48 hours. 03/15/20 18:25 Urine, Clean Catch Streptococcus pneumoniae Antigen (M - Final 03/15/20 18:25 Urine, Clean Catch Legionella Antigen - Final Laboratory Results 03/17/20 16:41: POC Glucose 356 H 03/17/20 21:29: POC Glucose 422 H 03/18/20 07:25: WBC 11.2 H, RBC 3.56 L, Hgb 9.5 L, Hct 29.4 L, MCV 82.6, MCH 26.7 L, MCHC 32.3, RDW Std Deviation 41.9, RDW Coeff of Rajendra 13.9, Plt Count 276, MPV 10.7 03/18/20 07:25: Sodium 141, Potassium 3.8, Chloride 109 H, Carbon Dioxide 23.0, Anion Gap 9, BUN 63 H, Creatinine 1.73 H, Estim Creat Clear Calc 53.80, Est GFR (MDRD) Af Amer 54 L, Est GFR (MDRD) Non-Af 44 L, BUN/Creatinine Ratio 36.4 H, Glucose 298 H, Calcium 7.6 L, Total Bilirubin 0.40, AST 40 H, ALT 38, Alkaline Phosphatase 61, Total Protein 5.6 L, Albumin 2.3 L, Globulin 3.3, Albumin/Globulin Ratio 0.7 L 03/18/20 07:25: B-Natriuretic Peptide 161.5 H 03/18/20 08:17: POC Glucose 295 H Current Medications Acetaminophen (Acetaminophen 325 Mg Tablet) 650 mg PO Q6H PRN PRN PRN Reason: Fever of 100.4 Fahrenheit/pain 1-10 Amlodipine Besylate (Amlodipine 5 Mg Tablet) 5 mg PO DAILY@0800 [facility] Last Admin: 03/18/20 08:30 Dose: 5 mg Documented by: Apixaban (Apixaban 5 Mg Tablet) 5 mg PO BID [facility] Last Admin: 03/18/20 08:29 Dose: 5 mg Documented by: Aspirin (Aspirin 81 Mg Tab.Chew) 81 mg PO DAILY@0800 [facility] Last Admin: 03/18/20 08:28 Dose: 81 mg Documented by: Atorvastatin Calcium (Atorvastatin Calcium 80 Mg Tablet) 80 mg PO QHS [facility] Last Admin: 03/17/20 21:21 Dose: 80 mg Documented by: Clopidogrel Bisulfate (Clopidogrel Bisulfate 75 Mg Tablet) 75 mg PO DAILY@0800 [facility] Last Admin: 03/18/20 08:34 Dose: 75 mg Documented by: Dexamethasone (Dexamethasone 4 Mg Tablet) 6 mg PO DAILY@0800 [facility] Last Admin: 03/18/20 08:30 Dose: 6 mg Documented by: Dextrose (Dextrose 50%-Water 25 Gm/50 Ml Disp.Syrin) 0 gm IV X1 PRN; Protocol PRN Reason: Hypoglycemia Famotidine (Famotidine 20 Mg Tablet) 20 mg PO DAILY@0800 [facility] Last Admin: 03/18/20 08:28 Dose: 20 mg Documented by: Glimepiride (Glimepiride 2 Mg Tablet) 2 mg PO DAILYCM [facility] Last Admin: 03/18/20 08:29 Dose: 2 mg Documented by: Glucagon (Glucagon 1 Mg/Ml Syringe) 1 mg IM .X1 PRN PRN Reason: Hypoglycemia Guaifenesin (Guaifenesin 10 Ml Udc (200mg/10ml)) 10 ml PO Q6H PRN PRN PRN Reason: COUGH Hydralazine HCl (Hydralazine 50 Mg Tablet) 50 mg PO 0800,2200 [facility] Last Admin: 03/18/20 08:29 Dose: 50 mg Documented by: Hydralazine HCl (Hydralazine 25 Mg Tablet) 25 mg PO 0800,2200 [facility] Last Admin: 03/18/20 08:29 Dose: 25 mg Documented by: Sodium Chloride () 250 mls @ 15 mls/hr IV .[id number] PRN PRN Reason: Saline Flush Sodium Chloride () 250 mls @ 15 mls/hr IV .[id number] PRN PRN Reason: Additional IVPB Infusion Remdesivir 100 mg/ Sodium (Chloride) 250 mls @ 125 mls/hr IV DAILY@2200 [facility]; Protocol Stop: 03/19/20 23:59 Last Infusion: 03/17/20 23:25 Dose: Infused Documented by: Sodium Chloride () 250 mls @ 15 mls/hr IV .[id number] PRN PRN Reason: Saline Flush Sodium Chloride () 250 mls @ 15 mls/hr IV .[id number] PRN PRN Reason: Additional IVPB Infusion Insulin Glargine (Insulin Glargine 100 Units/Ml Pen) 30 units SC BID@0800,2200 [facility] Last Admin: 03/18/20 08:19 Dose: 30 u Documented by: Insulin Human Lispro (Insulin Lispro 100 Unit/Ml Insuln.Pen) 0 unit SC 0800,1200,1700,2200 [facility]; Protocol Last Admin: 03/18/20 08:19 Dose: 6 u Documented by: Insulin Human Lispro (Insulin Lispro 100 Unit/Ml Insuln.Pen) [facility] Isosorbide Mononitrate (Isosorbide Mononitrate 60 Mg Tablet) 60 mg PO DAILY@0800 [facility] Last Admin: 03/17/20 08:24 Dose: 60 mg Documented by: Labetalol HCl (Labetalol (Prefilled) 20 Mg/4 Ml) 10 mg IV Q6 PRN PRN Reason: SBP> 160 or DBP > 120 Last Admin: 03/18/20 06:39 Dose: 10 mg Documented by: Metoprolol Succinate (Metoprolol(Xl)Succ 50 Mg Tablet) 50 mg PO DAILY@0800 [facility] Last Admin: 03/18/20 08:29 Dose: 50 mg Documented by: Sodium Chloride (0.9% Saline Lock 10 Ml Syringe) 10 - 40 ml IV UD PRN PRN Reason: SALINE FLUSH Last Admin: 03/18/20 06:40 Dose: 10 ml Documented by: Sodium Chloride (0.9% Saline Lock 10 Ml Syringe) 10 - 40 ml IV UD PRN PRN Reason: SALINE FLUSH Medical Necessity - Tobacco Use Smoking Status: Never smoker Route of nutrition/ use of supplements: [] Nutritional Intake: [] IV Site: [] Cruz Catheter: [] - Assessment/Plan Antibiotics: [] Assessment/Plan: [] Active and Suspected Problems (Last Reviewed 03/14/20 @ 23:[address] Per Feliciano MD) Pneumonia due to COVID-19 virus (Acute) covid with hypoxia, CORA on CKD - Elevated trop, improving. D-dimer 1.9. Fever resolved. Sx started around 03/09. Covid pcr (+). On dex and hep gtt. 03/15 started remdesivir, got plasma early AM 128. Now Cr and ALT much improved, sx much improved. O2 improving. He's eating and drinking, recommend cutting back on maintenance IV fluids. Mildly elevated BNP. Consider diuresis. Will follow, d/w Dr. Porter
[2020-03-18 12:36] LABS: Bedside Glucose 247 mg/dL (70-110)
--- NOTE | 2020-03-18 14:26 | PN_ITS ---
Patient Problems: Active and Suspected Problems (Last Reviewed 03/14/20 @ 23:[address] Per Feliciano MD) Pneumonia due to COVID-19 virus (Acute) Reason for Visit: COVID 19 Subjective: Tolerating Airvo. Vitals/I&O's: Vital Signs Temp Pulse Resp BP Pulse Ox 36.2 C L 64 17 151/79 H 94 03/18/20 12:26 03/18/20 13:22 03/18/20 13:22 03/18/20 12:26 03/18/20 13:22 Oxygen Flow Rate (L/min) 45 Oxygen Delivery Method Airvo Weight: 134.2 kg Body Mass Index (BMI) 41.2 Intake and Output for Last 24 Hours 03/16/20 03/17/20 03/18/20 23:59 23:59 23:59 Intake Total 4523.34 / 4523.34 3246.66 / 3246.66 2064 / 2065 Output Total 1500 / 1500 2350 / 2350 1950 / 1950 Balance 3023.34 / 3023.34 896.66 / 896.66 115 / 115 General: Alert, No apparent distress HEENT: Atraumatic, Normocephalic Oral: Moist Mucosa, No Gingival or Mucosal Lesions/ Ulcerations Neck: No Nodes, Thyroid Normal Size and Texture Lungs: Clear to auscultation, Normal air movement, No rhonchi, No wheeze, No rales Cardiovascular: Regular rate, Regular Rhythm, Normal S1, Normal S2, No murmurs Abdomen: Bowel Sounds Present, Soft, Non Tender, Non-Distended, No Hepato- splenomegaly Extremities: No edema, No Calf Tenderness Psych/Mental Status: Appropriate, Flat Affect Microbiology Past 72 Hours 03/18/20 03:30 Stool Enteric Bacteriology - Final 03/18/20 03:30 Stool C. difficile DNA Amplification - Final 03/14/20 21:18 Blood Culture (Wb) #2 - Left Hand Blood Culture - Preliminary No growth in 48 hours. 03/14/20 21:20 Blood Culture (Wb) - Anticubital Right Blood Culture - Preliminary No growth in 48 hours. 03/15/20 18:25 Urine, Clean Catch Streptococcus pneumoniae Antigen (M - Final 03/15/20 18:25 Urine, Clean Catch Legionella Antigen - Final Laboratory Results 03/17/20 16:41: POC Glucose 356 H 12/09/20 21:29: POC Glucose 422 H 03/18/20 07:25: WBC 11.2 H, RBC 3.56 L, Hgb 9.5 L, Hct 29.4 L, MCV 82.6, MCH 26.7 L, MCHC 32.3, RDW Std Deviation 41.9, RDW Coeff of Rajendra 13.9, Plt Count 276, MPV 10.7 03/18/20 07:25: Sodium 141, Potassium 3.8, Chloride 109 H, Carbon Dioxide 23.0, Anion Gap 9, BUN 63 H, Creatinine 1.73 H, Estim Creat Clear Calc 53.80, Est GFR (MDRD) Af Amer 54 L, Est GFR (MDRD) Non-Af 44 L, BUN/Creatinine Ratio 36.4 H, Glucose 298 H, Calcium 7.6 L, Total Bilirubin 0.40, AST 40 H, ALT 38, Alkaline Phosphatase 61, Total Protein 5.6 L, Albumin 2.3 L, Globulin 3.3, Albumin/Globulin Ratio 0.7 L 03/18/20 07:25: B-Natriuretic Peptide 161.5 H 03/18/20 08:17: POC Glucose 295 H 03/18/20 12:20: POC Glucose 247 H Current Medications Acetaminophen (Acetaminophen 325 Mg Tablet) 650 mg PO Q6H PRN PRN PRN Reason: Fever of 100.4 Fahrenheit/pain 1-10 Amlodipine Besylate (Amlodipine 5 Mg Tablet) 5 mg PO DAILY@0800 [facility] Last Admin: 03/18/20 08:30 Dose: 5 mg Documented by: Apixaban (Apixaban 5 Mg Tablet) 5 mg PO BID [facility] Last Admin: 03/18/20 08:29 Dose: 5 mg Documented by: Aspirin (Aspirin 81 Mg Tab.Chew) 81 mg PO DAILY@0800 [facility] Last Admin: 03/18/20 08:28 Dose: 81 mg Documented by: Atorvastatin Calcium (Atorvastatin Calcium 80 Mg Tablet) 80 mg PO QHS [facility] Last Admin: 03/17/20 21:21 Dose: 80 mg Documented by: Clopidogrel Bisulfate (Clopidogrel Bisulfate 75 Mg Tablet) 75 mg PO DAILY@0800 [facility] Last Admin: 03/18/20 08:34 Dose: 75 mg Documented by: Dexamethasone (Dexamethasone 4 Mg Tablet) 6 mg PO DAILY@0800 [facility] Last Admin: 03/18/20 08:30 Dose: 6 mg Documented by: Dextrose (Dextrose 50%-Water 25 Gm/50 Ml Disp.Syrin) 0 gm IV X1 PRN; Protocol PRN Reason: Hypoglycemia Famotidine (Famotidine 20 Mg Tablet) 20 mg PO DAILY@0800 [facility] Last Admin: 03/18/20 08:28 Dose: 20 mg Documented by: Glimepiride (Glimepiride 2 Mg Tablet) 2 mg PO DAILYCM [facility] Last Admin: 03/18/20 08:29 Dose: 2 mg Documented by: Glucagon (Glucagon 1 Mg/Ml Syringe) 1 mg IM .X1 PRN PRN Reason: Hypoglycemia Guaifenesin (Guaifenesin 10 Ml Udc (200mg/10ml)) 10 ml PO Q6H PRN PRN PRN Reason: COUGH Hydralazine HCl (Hydralazine 50 Mg Tablet) 50 mg PO 0800,2200 [facility] Last Admin: 03/18/20 08:29 Dose: 50 mg Documented by: Hydralazine HCl (Hydralazine 25 Mg Tablet) 25 mg PO 0800,2200 [facility] Last Admin: 03/18/20 08:29 Dose: 25 mg Documented by: Sodium Chloride () 250 mls @ 15 mls/hr IV .[id number] PRN PRN Reason: Saline Flush Sodium Chloride () 250 mls @ 15 mls/hr IV .[id number] PRN PRN Reason: Additional IVPB Infusion Remdesivir 100 mg/ Sodium (Chloride) 250 mls @ 125 mls/hr IV DAILY@2200 [facility]; Protocol Stop: 03/19/20 23:59 Last Infusion: 03/17/20 23:25 Dose: Infused Documented by: Sodium Chloride () 250 mls @ 15 mls/hr IV .[id number] PRN PRN Reason: Saline Flush Sodium Chloride () 250 mls @ 15 mls/hr IV .[id number] PRN PRN Reason: Additional IVPB Infusion Insulin Glargine (Insulin Glargine 100 Units/Ml Pen) 30 units SC BID@0800,2200 [facility] Last Admin: 03/18/20 08:19 Dose: 30 u Documented by: Insulin Human Lispro (Insulin Lispro 100 Unit/Ml Insuln.Pen) 0 unit SC 0800,1200,1700,2200 [facility]; Protocol Last Admin: 03/18/20 12:21 Dose: 4 u Documented by: Insulin Human Lispro (Insulin Lispro 100 Unit/Ml Insuln.Pen) 10 unit SC TIDAC [facility] Last Admin: 03/18/20 12:22 Dose: Not Given Documented by: Isosorbide Mononitrate (Isosorbide Mononitrate 60 Mg Tablet) 60 mg PO DAILY@0800 [facility] Last Admin: 03/17/20 08:24 Dose: 60 mg Documented by: Labetalol HCl (Labetalol (Prefilled) 20 Mg/4 Ml) 10 mg IV Q6 PRN PRN Reason: SBP> 160 or DBP > 120 Last Admin: 03/18/20 06:39 Dose: 10 mg Documented by: Metoprolol Succinate (Metoprolol(Xl)Succ 50 Mg Tablet) 50 mg PO DAILY@0800 [facility] Last Admin: 03/18/20 08:29 Dose: 50 mg Documented by: Sodium Chloride (0.9% Saline Lock 10 Ml Syringe) 10 - 40 ml IV UD PRN PRN Reason: SALINE FLUSH Last Admin: 03/18/20 06:40 Dose: 10 ml Documented by: Sodium Chloride (0.9% Saline Lock 10 Ml Syringe) 10 - 40 ml IV UD PRN PRN Reason: SALINE FLUSH STROKE Vital Signs/Narrative: Vital Signs Temp Pulse Resp BP Pulse Ox 03/18/20 13:22 64 17 94 03/18/20 12:26 36.2 C L 69 14 151/79 H 93 03/18/20 10:38 69 20 H 95 Medical Necessity - Tobacco Use Smoking Status: Never smoker Assessment/Plan All Active Problems (Last Reviewed 03/14/20 @ 23:[address] Per Feliciano MD) Pneumonia due to COVID-19 virus (Acute) 1. acute hypoxic respiratory failure * Slowly improving * 2/2 COVID 19 pneumonia, ALI * wean oxygen as tolerated * Will initiate IV furosemide * still on Airvo. wean oxygen as able. 2. Acute COVID 19 pneumonia * on dexamethasone * remdesivir * Infectious isease consultation 3. Non-STEMI * Likely demand due to COVID-19, hypoxia * Troponins have been trending down, peak troponin 0.615 * Continue with therapeutic anticoagulation for now * Discussed with Dr. eKn who stated the patient would not be a candidate for catheterization procedure with his kidney disease and did not feel an echocardiogram would change his management at this time. We will hold off on cardiology consult unless patient condition changes. * continue with medical therapy: ASA, clopidogrel, HIS 4.CORA * improving * baseline creatinine 2.4 (from 09/29) went up to 3.28 * hold nephrotoxic agents: furosemide 5. DM2 * uncontrolled * exacerbated by steroids * on basal and SSI * monitor for now, but if remains elevated, will likely make adjustments 6. VTE prophylaxis: anticoagulated. Inpatient E&M: 33181 Subs Hosp L2
[2020-03-18] MEDS: Insulin Lispro 100 UNIT/ML INSULN.PEN 10 UNIT SC (16:12)
[2020-03-18] MEDS: Furosemide 40 MG/4 ML Vial IV (16:13)
[2020-03-18] MEDS: Atorvastatin Calcium 80 MG Tablet PO (22:15)
[2020-03-18 22:40] LABS: Bedside Glucose 255 mg/dL (70-110)
[2020-03-18 22:40] LABS: Bedside Glucose 368 mg/dL (70-110)
[2020-03-19] VITALS (16 sets, daily range): BP systolic 127–173; BP diastolic 70–87; PULSE 61–74; RESP 16–18; TEMP 36.1–36.6; O2SAT 94–98
[2020-03-19 06:17] LABS: Hematocrit 30.4 % (40-54); Hemoglobin 9.8 g/dL (13.0-16.5); Mean Corp Hgb Conc 32.2 g/dL (32-36); Mean Corpuscular Hgb 26.8 pg (27.0-32.0); Mean Corpuscular Volume 83.1 fL (80-94); Mean Platelet Vol. 10.1 fl (6.2-12.0); Platelet Count 318 K/mm3 (150-450); RBC Distribution Width CV 14.1 % (11.6-14.6); RBC Distribution Width SD 42.5 fl (35.1-43.9); Red Blood Count 3.66 M/mm3 (4.6-6.2); White Blood Count 12.2 K/mm3 (4.4-11.0)
[2020-03-19 06:43] LABS: ALB/GLOB Ratio 0.6 RATIO (0.9-2.4); AST(SGOT) 50 U/L (15-37); Alanine Aminotransfer ALT/SGPT 51 U/L (16-61); Albumin, Serum 2.2 g/dL (3.2-5.0); Alkaline Phosphatase 63 U/L (45-117); Anion Gap 7 (5-15); BUN 52 mg/dL (7-18); BUN/Creat Ratio 29.1 RATIO (10-20); Chloride 108 mmol/L (98-107); Creatinine, Serum 1.79 mg/dL (0.70-1.30); EST Glomerular Filtration Rate 43 mL/min (>60); Est Glom Filt Rate - Afr Amer 52 mL/min (>60); Globulin 3.9 g/dL (2.2-4.2); Glucose 288 mg/dL (74-106); Protein, Total 6.1 g/dL (6.4-8.2); Sodium Level 139 mmol/L (136-145)
[2020-03-19] MEDS: Clopidogrel Bisulfate 75 MG Tablet PO (08:52)
[2020-03-19] MEDS: APIXABAN 5 MG TABLET PO ×2 (08:52→21:42)
[2020-03-19] MEDS: Famotidine 20 MG Tablet PO (08:52)
[2020-03-19] MEDS: amLODIPine 5 MG Tablet PO (08:52)
[2020-03-19] MEDS: Aspirin 81 MG TAB.CHEW PO (08:52)
[2020-03-19] MEDS: Glimepiride 2 MG Tablet PO (08:53)
[2020-03-19] MEDS: hydrALAZINE 25 MG Tablet PO ×2 (08:53→21:41)
[2020-03-19] MEDS: Isosorbide Mononitrate 60 MG Tablet PO (08:54)
[2020-03-19] MEDS: Metoprolol(XL)Succ 50 MG Tablet PO (08:54)
[2020-03-19] MEDS: hydrALAZINE 50 MG Tablet PO ×2 (08:54→21:42)
[2020-03-19] MEDS: dexAMETHasone 4 MG Tablet 6 MG PO (08:55)
[2020-03-19] MEDS: Furosemide 40 MG/4 ML Vial IV ×2 (08:56→17:29)
[2020-03-19] MEDS: Insulin Lispro 100 UNIT/ML INSULN.PEN 10 UNIT SC ×3 (08:58→17:18)
[2020-03-19] MEDS: Insulin Lispro 100 UNIT/ML INSULN.PEN SC ×4 (08:58→21:44)
--- NOTE | 2020-03-19 09:11 | NURSING ---
pt weaned to 6L via nasal canula this am. Therapy ambulated pt in room on 8L O2 and pts spo2 dropped to 87% before pt sat back down in chair. Pt denied feeling SOB while ambulating.
[2020-03-19 09:36] LABS: Bedside Glucose 271 mg/dL (70-110)
[2020-03-19 13:46] LABS: Bedside Glucose 259 mg/dL (70-110)
--- NOTE | 2020-03-19 14:16 | PCM.PN.HOSP ---
Patient Problems: Active and Suspected Problems (Last Reviewed 03/14/20 @ 23:[address] Per Feliciano MD) Pneumonia due to COVID-19 virus (Acute) Reason for Visit: COVID 19 Subjective: Breathing well. Vitals/I&O's: Vital Signs Temp Pulse Resp BP Pulse Ox 36.1 C L 74 18 127/70 H 96 03/19/20 12:25 03/19/20 12:25 03/19/20 12:25 03/19/20 12:25 03/19/20 12:26 Oxygen Flow Rate (L/min) 2 Oxygen Delivery Method Nasal Cannula Weight: 134.2 kg Body Mass Index (BMI) 41.2 Intake and Output for Last 24 Hours 03/17/20 03/18/20 03/19/20 23:59 23:59 23:59 Intake Total 3246.66 / 3246.66 2665 / 3145 1450 / 1450 Output Total 2350 / 2350 2625 / 3675 2550 / 2550 Balance 896.66 / 896.66 40 / -530 -1100 / -1100 General: Alert, No apparent distress HEENT: Atraumatic, Normocephalic Oral: Moist Mucosa, No Gingival or Mucosal Lesions/ Ulcerations Neck: No Nodes, Thyroid Normal Size and Texture Lungs: Clear to auscultation, Normal air movement, No rhonchi, No wheeze Cardiovascular: Regular rate, Regular Rhythm, Normal S1, Normal S2, No murmurs Abdomen: Bowel Sounds Present, Soft, Non Tender, Non-Distended, No Hepato-splenomegaly Extremities: No edema, No Calf Tenderness Skin: No rashes, No breakdown Psych/Mental Status: Normal Affect, Appropriate Microbiology Past 72 Hours 03/18/20 03:30 Stool Enteric Bacteriology - Final 03/18/20 03:30 Stool C. difficile DNA Amplification - Final 03/14/20 21:18 Blood Culture (Wb) #2 - Left Hand Blood Culture - Preliminary No growth in 48 hours. 03/14/20 21:20 Blood Culture (Wb) - Anticubital Right Blood Culture - Preliminary No growth in 48 hours. Laboratory Results 03/18/20 16:11: POC Glucose 255 H 03/18/20 22:13: POC Glucose 368 H 03/19/20 06:10: WBC 12.2 H, RBC 3.66 L, Hgb 9.8 L, Hct 30.4 L, MCV 83.1, MCH 26.8 L, MCHC 32.2, RDW Std Deviation 42.5, RDW Coeff of Rajendra 14.1, Plt Count 318, MPV 10.1 03/19/20 06:10: Sodium 139, Potassium 4.0, Chloride 108 H, Carbon Dioxide 24.0, Anion Gap 7, BUN 52 H, Creatinine 1.79 H, Estim Creat Clear Calc 52.00, Est GFR (MDRD) Af Amer 52 L, Est GFR (MDRD) Non-Af 43 L, BUN/Creatinine Ratio 29.1 H, Glucose 288 H, Calcium 8.0 L, Total Bilirubin 0.40, AST 50 H, ALT 51, Alkaline Phosphatase 63, Total Protein 6.1 L, Albumin 2.2 L, Globulin 3.9, Albumin/Globulin Ratio 0.6 L 03/19/20 08:45: POC Glucose 271 H 03/19/20 12:19: POC Glucose 259 H Current Medications Acetaminophen (Acetaminophen 325 Mg Tablet) 650 mg PO Q6H PRN PRN PRN Reason: Fever of 100.4 Fahrenheit/pain 1-10 Amlodipine Besylate (Amlodipine 5 Mg Tablet) 5 mg PO DAILY@0800 [facility] Last Admin: 03/19/20 08:52 Dose: 5 mg Documented by: Apixaban (Apixaban 5 Mg Tablet) 5 mg PO BID [facility] Last Admin: 03/19/20 08:52 Dose: 5 mg Documented by: Aspirin (Aspirin 81 Mg Tab.Chew) 81 mg PO DAILY@0800 [facility] Last Admin: 03/19/20 08:52 Dose: 81 mg Documented by: Atorvastatin Calcium (Atorvastatin Calcium 80 Mg Tablet) 80 mg PO QHS [facility] Last Admin: 03/18/20 22:15 Dose: 80 mg Documented by: Clopidogrel Bisulfate (Clopidogrel Bisulfate 75 Mg Tablet) 75 mg PO DAILY@0800 [facility] Last Admin: 03/19/20 08:52 Dose: 75 mg Documented by: Dexamethasone (Dexamethasone 4 Mg Tablet) 6 mg PO DAILY@0800 [facility] Last Admin: 03/19/20 08:55 Dose: 6 mg Documented by: Dextrose (Dextrose 50%-Water 25 Gm/50 Ml Disp.Syrin) 0 gm IV X1 PRN; Protocol PRN Reason: Hypoglycemia Famotidine (Famotidine 20 Mg Tablet) 20 mg PO DAILY@0800 [facility] Last Admin: 03/19/20 08:52 Dose: 20 mg Documented by: Furosemide (Furosemide 40 Mg/4 Ml Vial) 40 mg IV BID@1000,1700 [facility] Last Admin: 03/19/20 08:56 Dose: 40 mg Documented by: Glimepiride (Glimepiride 2 Mg Tablet) 2 mg PO DAILYCM [facility] Last Admin: 03/19/20 08:53 Dose: 2 mg Documented by: Glucagon (Glucagon 1 Mg/Ml Syringe) 1 mg IM .X1 PRN PRN Reason: Hypoglycemia Guaifenesin (Guaifenesin 10 Ml Udc (200mg/10ml)) 10 ml PO Q6H PRN PRN PRN Reason: COUGH Hydralazine HCl (Hydralazine 50 Mg Tablet) 50 mg PO 0800,2200 [facility] Last Admin: 03/19/20 08:54 Dose: 50 mg Documented by: Hydralazine HCl (Hydralazine 25 Mg Tablet) 25 mg PO 0800,2200 [facility] Last Admin: 03/19/20 08:53 Dose: 25 mg Documented by: Remdesivir 100 mg/ Sodium (Chloride) 250 mls @ 125 mls/hr IV DAILY@2200 [facility]; Protocol Stop: 03/19/20 23:59 Last Infusion: 03/19/20 00:17 Dose: Infused Documented by: Sodium Chloride () 250 mls @ 15 mls/hr IV .[id number] PRN PRN Reason: Additional IVPB Infusion Insulin Glargine (Insulin Glargine 100 Units/Ml Pen) 30 units SC BID@0800,2200 [facility] Last Admin: 03/19/20 08:59 Dose: 30 u Documented by: Insulin Human Lispro (Insulin Lispro 100 Unit/Ml Insuln.Pen) 0 unit SC 0800,1200,1700,2200 [facility]; Protocol Last Admin: 03/19/20 12:22 Dose: 4 u Documented by: Insulin Human Lispro (Insulin Lispro 100 Unit/Ml Insuln.Pen) 10 unit SC TIDAC [facility] Last Admin: 03/19/20 12:22 Dose: 10 units Documented by: Isosorbide Mononitrate (Isosorbide Mononitrate 60 Mg Tablet) 60 mg PO DAILY@0800 [facility] Last Admin: 03/19/20 08:54 Dose: 60 mg Documented by: Labetalol HCl (Labetalol (Prefilled) 20 Mg/4 Ml) 10 mg IV Q6 PRN PRN Reason: SBP> 160 or DBP > 120 Last Admin: 03/18/20 06:39 Dose: 10 mg Documented by: Metoprolol Succinate (Metoprolol(Xl)Succ 50 Mg Tablet) 50 mg PO DAILY@0800 [facility] Last Admin: 03/19/20 08:54 Dose: 50 mg Documented by: Sodium Chloride (0.9% Saline Lock 10 Ml Syringe) 10 - 40 ml IV UD PRN PRN Reason: SALINE FLUSH Last Admin: 03/18/20 06:40 Dose: 10 ml Documented by: Sodium Chloride (0.9% Saline Lock 10 Ml Syringe) 10 - 40 ml IV UD PRN PRN Reason: SALINE FLUSH STROKE Vital Signs/Narrative: Vital Signs Temp Pulse Resp BP Pulse Ox 03/19/20 12:26 96 03/19/20 12:25 36.1 C L 74 18 127/70 H 96 03/19/20 11:42 96 Medical Necessity - Tobacco Use Smoking Status: Never smoker Assessment/Plan All Active Problems (Last Reviewed 03/14/20 @ 23:[address] Per Feliciano MD) Pneumonia due to COVID-19 virus (Acute) 1. acute hypoxic respiratory failure Slowly improving 2/2 COVID 19 pneumonia, ALI wean oxygen as tolerated Will initiate IV furosemide still on Airvo. wean oxygen as able. 2. Acute COVID 19 pneumonia on dexamethasone remdesivir Infectious isease consultation 3. Non-STEMI Likely demand due to COVID-19, hypoxia Troponins have been trending down, peak troponin 0.615 Continue with therapeutic anticoagulation for now Discussed with Dr. Ken who stated the patient would not be a candidate for catheterization procedure with his kidney disease and did not feel an echocardiogram would change his management at this time. We will hold off on cardiology consult unless patient condition changes. continue with medical therapy: ASA, clopidogrel, HIS 4.CORA improving baseline creatinine 2.4 (from 09/29) went up to 3.28 hold nephrotoxic agents: furosemide 5. DM2 uncontrolled exacerbated by steroids on basal and SSI monitor for now, but if remains elevated, will likely make adjustments 6. VTE prophylaxis: anticoagulated. DC planning. When oxygen stable at 4-5 l/m. Inpatient E&M: 48333 Subs Hosp L2
--- NOTE | 2020-03-19 14:39 | CASEMGMT ---
Per Amy from therapy, pt does not have any further therapy needs at discharge or DME needs at this time. Green sheet left on chart for home oxygen need, if qualifies. Juan Carlos GARCIA CM
--- NOTE | 2020-03-19 16:05 | PN.ID_ITS ---
Patient Problems: Active and Suspected Problems (Last Reviewed 03/14/20 @ 23:[address] Per Feliciano MD) Pneumonia due to COVID-19 virus (Acute) Subjective: Feeling better, no fever, no n/v/d. - Physical Exam Vitals/I&O's: Vital Signs Temp Pulse Resp BP Pulse Ox 97 F L 74 18 127/70 H 96 03/19/20 12:25 03/19/20 12:25 03/19/20 12:25 03/19/20 12:25 03/19/20 12:26 Oxygen Flow Rate (L/min) 2 Oxygen Delivery Method Nasal Cannula Weight: 134.2 kg Body Mass Index (BMI) 41.2 Intake and Output for Last 24 Hours 03/17/20 03/18/20 03/19/20 23:59 23:59 23:59 Intake Total 3246.66 / 3246.66 2665 / 3145 1450 / 1450 Output Total 2350 / 2350 2625 / 3675 2550 / 2550 Balance 896.66 / 896.66 40 / -530 -1100 / -1100 General: Alert, Cooperative, No apparent distress Lungs: Clear to auscultation, Diminished Cardiovascular: Regular rate, Regular Rhythm Abdomen: Soft, Non Tender, Non-Distended Skin: No rashes Microbiology Past 72 Hours 03/18/20 03:30 Stool Enteric Bacteriology - Final 03/18/20 03:30 Stool C. difficile DNA Amplification - Final 03/14/20 21:18 Blood Culture (Wb) #2 - Left Hand Blood Culture - Preliminary No growth in 48 hours. 03/14/20 21:20 Blood Culture (Wb) - Anticubital Right Blood Culture - Preliminary No growth in 48 hours. Laboratory Results 03/18/20 16:11: POC Glucose 255 H 03/18/20 22:13: POC Glucose 368 H 03/19/20 06:10: WBC 12.2 H, RBC 3.66 L, Hgb 9.8 L, Hct 30.4 L, MCV 83.1, MCH 26.8 L, MCHC 32.2, RDW Std Deviation 42.5, RDW Coeff of Rajendra 14.1, Plt Count 318, MPV 10.1 03/19/20 06:10: Sodium 139, Potassium 4.0, Chloride 108 H, Carbon Dioxide 24.0, Anion Gap 7, BUN 52 H, Creatinine 1.79 H, Estim Creat Clear Calc 52.00, Est GFR (MDRD) Af Amer 52 L, Est GFR (MDRD) Non-Af 43 L, BUN/Creatinine Ratio 29.1 H, Glucose 288 H, Calcium 8.0 L, Total Bilirubin 0.40, AST 50 H, ALT 51, Alkaline Phosphatase 63, Total Protein 6.1 L, Albumin 2.2 L, Globulin 3.9, Albumin/Globulin Ratio 0.6 L 03/19/20 08:45: POC Glucose 271 H 03/19/20 12:19: POC Glucose 259 H Current Medications Acetaminophen (Acetaminophen 325 Mg Tablet) 650 mg PO Q6H PRN PRN PRN Reason: Fever of 100.4 Fahrenheit/pain 1-10 Amlodipine Besylate (Amlodipine 5 Mg Tablet) 5 mg PO DAILY@0800 [facility] Last Admin: 03/19/20 08:52 Dose: 5 mg Documented by: Apixaban (Apixaban 5 Mg Tablet) 5 mg PO BID [facility] Last Admin: 03/19/20 08:52 Dose: 5 mg Documented by: Aspirin (Aspirin 81 Mg Tab.Chew) 81 mg PO DAILY@0800 [facility] Last Admin: 03/19/20 08:52 Dose: 81 mg Documented by: Atorvastatin Calcium (Atorvastatin Calcium 80 Mg Tablet) 80 mg PO QHS [facility] Last Admin: 03/18/20 22:15 Dose: 80 mg Documented by: Clopidogrel Bisulfate (Clopidogrel Bisulfate 75 Mg Tablet) 75 mg PO DAILY@0800 [facility] Last Admin: 03/19/20 08:52 Dose: 75 mg Documented by: Dexamethasone (Dexamethasone 4 Mg Tablet) 6 mg PO DAILY@0800 [facility] Last Admin: 03/19/20 08:55 Dose: 6 mg Documented by: Dextrose (Dextrose 50%-Water 25 Gm/50 Ml Disp.Syrin) 0 gm IV X1 PRN; Protocol PRN Reason: Hypoglycemia Famotidine (Famotidine 20 Mg Tablet) 20 mg PO DAILY@0800 [facility] Last Admin: 03/19/20 08:52 Dose: 20 mg Documented by: Furosemide (Furosemide 40 Mg/4 Ml Vial) 40 mg IV BID@1000,1700 [facility] Last Admin: 03/19/20 08:56 Dose: 40 mg Documented by: Glimepiride (Glimepiride 2 Mg Tablet) 2 mg PO DAILYCM [facility] Last Admin: 03/19/20 08:53 Dose: 2 mg Documented by: Glucagon (Glucagon 1 Mg/Ml Syringe) 1 mg IM .X1 PRN PRN Reason: Hypoglycemia Guaifenesin (Guaifenesin 10 Ml Udc (200mg/10ml)) 10 ml PO Q6H PRN PRN PRN Reason: COUGH Hydralazine HCl (Hydralazine 50 Mg Tablet) 50 mg PO 0800,2200 [facility] Last Admin: 03/19/20 08:54 Dose: 50 mg Documented by: Hydralazine HCl (Hydralazine 25 Mg Tablet) 25 mg PO 0800,2200 [facility] Last Admin: 03/19/20 08:53 Dose: 25 mg Documented by: Remdesivir 100 mg/ Sodium (Chloride) 250 mls @ 125 mls/hr IV DAILY@2200 [facility]; Protocol Stop: 03/19/20 23:59 Last Infusion: 03/19/20 00:17 Dose: Infused Documented by: Sodium Chloride () 250 mls @ 15 mls/hr IV .[id number] PRN PRN Reason: Additional IVPB Infusion Insulin Glargine (Insulin Glargine 100 Units/Ml Pen) 30 units SC BID@0800,2200 [facility] Last Admin: 03/19/20 08:59 Dose: 30 u Documented by: Insulin Human Lispro (Insulin Lispro 100 Unit/Ml Insuln.Pen) 0 unit SC 0800,1200,1700,2200 [facility]; Protocol Last Admin: 03/19/20 12:22 Dose: 4 u Documented by: Insulin Human Lispro (Insulin Lispro 100 Unit/Ml Insuln.Pen) 10 unit SC TIDAC [facility] Last Admin: 03/19/20 12:22 Dose: 10 units Documented by: Isosorbide Mononitrate (Isosorbide Mononitrate 60 Mg Tablet) 60 mg PO D AILY@0800 [facility] Last Admin: 03/19/20 08:54 Dose: 60 mg Documented by: Labetalol HCl (Labetalol (Prefilled) 20 Mg/4 Ml) 10 mg IV Q6 PRN PRN Reason: SBP> 160 or DBP > 120 Last Admin: 03/18/20 06:39 Dose: 10 mg Documented by: Metoprolol Succinate (Metoprolol(Xl)Succ 50 Mg Tablet) 50 mg PO DAILY@0800 [facility] Last Admin: 03/19/20 08:54 Dose: 50 mg Documented by: Sodium Chloride (0.9% Saline Lock 10 Ml Syringe) 10 - 40 ml IV UD PRN PRN Reason: SALINE FLUSH Last Admin: 03/18/20 06:40 Dose: 10 ml Documented by: Sodium Chloride (0.9% Saline Lock 10 Ml Syringe) 10 - 40 ml IV UD PRN PRN Reason: SALINE FLUSH Medical Necessity - Tobacco Use Smoking Status: Never smoker Route of nutrition/ use of supplements: [] Nutritional Intake: [] IV Site: [] Crzu Catheter: [] - Assessment/Plan Antibiotics: [] Assessment/Plan: [] Active and Suspected Problems (Last Reviewed 03/14/20 @ 23:[address] Per Feliciano MD) Pneumonia due to COVID-19 virus (Acute) covid with hypoxia, CORA on CKD - Elevated trop, improving. D-dimer 1.9. Fever resolved. Sx started around 03/09. Covid pcr (+). On dex and hep gtt. 03/15 started remdesivir, got plasma early AM 03/16. Now Cr and ALT much improved, sx much improved. O2 much improved with diuresis. Plan will be for discharge home to complete 10 days total of dex and 2 weeks of eliquis 2.5mg bid (depending on plan re: his heart). Will follow
[2020-03-19 17:40] LABS: Bedside Glucose 276 mg/dL (70-110)
[2020-03-19] MEDS: Atorvastatin Calcium 80 MG Tablet PO (21:42)
[2020-03-19 22:01] LABS: Bedside Glucose 326 mg/dL (70-110)
[2020-03-20] VITALS (10 sets, daily range): BP systolic 130–170; BP diastolic 71–88; PULSE 63–76; RESP 16; TEMP 35.9–36.6; O2SAT 84–96
[2020-03-20 06:13] LABS: Hematocrit 32.7 % (40-54); Hemoglobin 10.7 g/dL (13.0-16.5); Mean Corp Hgb Conc 32.7 g/dL (32-36); Mean Corpuscular Volume 82.6 fL (80-94); Mean Platelet Vol. 10.6 fl (6.2-12.0); Platelet Count 418 K/mm3 (150-450); RBC Distribution Width CV 13.8 % (11.6-14.6); RBC Distribution Width SD 41.3 fl (35.1-43.9); Red Blood Count 3.96 M/mm3 (4.6-6.2); White Blood Count 13.6 K/mm3 (4.4-11.0)
[2020-03-20 06:55] LABS: ALB/GLOB Ratio 0.6 RATIO (0.9-2.4); AST(SGOT) 44 U/L (15-37); Alanine Aminotransfer ALT/SGPT 57 U/L (16-61); Albumin, Serum 2.3 g/dL (3.2-5.0); Alkaline Phosphatase 63 U/L (45-117); Anion Gap 6 (5-15); BUN 54 mg/dL (7-18); Calcium,Total 8.1 mg/dL (8.5-10.1); Chloride 108 mmol/L (98-107); Creatinine, Serum 1.69 mg/dL (0.70-1.30); EST Glomerular Filtration Rate 46 mL/min (>60); Est Glom Filt Rate - Afr Amer 55 mL/min (>60); Estimated Creatinine Clearance 55.08 ml/min; Globulin 3.9 g/dL (2.2-4.2); Glucose 234 mg/dL (74-106); Potassium 3.7 mmol/L (3.5-5.1); Protein, Total 6.2 g/dL (6.4-8.2); Sodium Level 139 mmol/L (136-145)
[2020-03-20 08:06] LABS: Bedside Glucose 192 mg/dL (70-110)
[2020-03-20] MEDS: dexAMETHasone 4 MG Tablet 6 MG PO (09:05)
[2020-03-20] MEDS: Clopidogrel Bisulfate 75 MG Tablet PO (09:06)
[2020-03-20] MEDS: Metoprolol(XL)Succ 50 MG Tablet PO (09:06)
[2020-03-20] MEDS: amLODIPine 5 MG Tablet PO (09:06)
[2020-03-20] MEDS: Furosemide 40 MG/4 ML Vial IV (09:06)
[2020-03-20] MEDS: Glimepiride 2 MG Tablet PO (09:06)
[2020-03-20] MEDS: APIXABAN 5 MG TABLET PO (09:06)
[2020-03-20] MEDS: hydrALAZINE 25 MG Tablet PO (09:06)
[2020-03-20] MEDS: Famotidine 20 MG Tablet PO (09:06)
[2020-03-20] MEDS: hydrALAZINE 50 MG Tablet PO (09:07)
[2020-03-20] MEDS: Aspirin 81 MG TAB.CHEW PO (09:07)
[2020-03-20] MEDS: Insulin Lispro 100 UNIT/ML INSULN.PEN SC ×2 (09:07→11:55)
[2020-03-20] MEDS: Isosorbide Mononitrate 60 MG Tablet PO (09:07)
[2020-03-20] MEDS: Insulin Lispro 100 UNIT/ML INSULN.PEN 10 UNIT SC ×2 (09:08→11:55)
--- NOTE | 2020-03-20 11:06 | PCM.DC ---
- Discharge Diagnoses Current Active Problems: Current Active and Chronic Problems (Last Reviewed 03/14/20 @ 23:[address] Per Feliciano MD) Pneumonia due to COVID-19 virus (Acute) Venous insufficiency (Chronic) Hyperlipidemia (Chronic) Hypertension (Chronic) Acute on chronic diastolic heart failure (Chronic) Diabetes mellitus, type II (Chronic) History of non-ST elevation myocardial infarction (NSTEMI) (Chronic) Ischemic cardiomyopathy (Chronic) Stented coronary artery (Chronic 12/24/18) TREY to mid LAD ISR 2.25 X 38 Promus; TREY to mid LAD 2.5 X 28 Promus telescoped into previously placed stent (2.25); TREY to Proximal Diag 1 2.25 X 12 Promus; POBA to ostial Diag #1 with 2.0 X12 Emerge balloon, 85%--->20%, no dissection 12/24/18 per DJN @ [facility] PTCA and TREY to LAD 06/23/13 @ [facility]; Promus stent to DX 07/17/13 @ [facility] History of left heart catheterization (Chronic) 06/23/2013 @ [facility] Atherosclerotic heart disease of [place] coronary artery without angina pectoris (Chronic) PTCA and TREY to LAD 06/23/13; Promus stent to DX 07/17/13 Obesity (Chronic) You will use the following diet at home:: Calorie/Carbohydrate Controlled (specify 1200, 1400, etc) - 1800 Your food should be the consistency of: Regular Your liquids should be the consistency of: Regular/Thin Discharge Activity: Return to Normal Activity - ease back slowly in your routine. Call your doctor if you observe: Fever of 101 or Higher, Shortness of breath Additional Instructions: Self isolate for at least 21 days since symptoms began (03/09-04/01/2020) AND at least one day (24 hours) have passed since resolution of fever without the use of fever-reducing agents AND improvement of symptoms (e.g., cough, shortness of breath) When around people in the same room, wear a face mask. Individuals also in the room should wear a mask. If possible, use a different bathroom and bedroom. Perform adequate hand hygiene. Avoid sharing dishes, glasses, etc. Family members with close contact with you and/or postive for COVID-19 should follow these instructions. Allergies/Adverse Reactions: Allergies lisinopril Adverse Reaction (Intermediate, Verified 09/30/19 16:00) Cough losartan Adverse Reaction (Intermediate, Verified 09/30/19 16:00) cough Medications to take at Discharge Aspirin [Aspirin, Baby] 81 mg PO DAILY@0800 09/28/14 Famotidine [Pepcid] 20 mg PO DAILY 09/28/14 Mag-Ox 400 1 tab PO DAILY 09/28/14 nitroglycerin 0.4 mg sublingual tablet 0.4 mg SUBLINGUAL Q5-15M PRN 04/20/17 metoprolol succinate 50 mg tablet,extended release 24 hr 50 mg PO DAILY tab 12/16/18 Atorvastatin Calcium 80 mg PO QHS 12/20/18 Clopidogrel Bisulfate [Plavix] 75 mg PO DAILY #90 tab 12/25/18 glimepiride 2 mg tablet 2 mg PO QAM #90 tab 03/11/19 hydralazine 25 mg tablet 25 mg PO .COMPLEX #90 tab 09/08/19 hydralazine 50 mg tablet 50 mg PO .COMPLEX #90 tab 09/08/19 losartan 25 mg tablet 25 mg PO DAILY 09/09/19 furosemide 40 mg tablet 40 mg PO .COMPLEX #240 tab 11/18/19 isosorbide mononitrate 60 mg tablet,extended release 24 hr 60 mg PO DAILY #90 tab 11/18/19 amlodipine 5 mg tablet 5 mg PO DAILY #90 tab 02/16/20 Apixaban [Eliquis] 5 mg PO BID #50 tab 03/20/20 Dexamethasone [Decadron] 6 mg PO DAILY #4 tab 03/20/20 Insulin Glargine,Hum.rec.anlog [Basaglar Kwikpen U-100] 30 unit SUBCUT BID #0 ml 03/20/20 The following prescriptions were given: Dexamethasone [Decadron] 6 mg PO DAILY #4 tab Transmission Status: Pending to [facility]/pharmacy #[id number] Apixaban [Eliquis] 5 mg PO BID #50 tab Transmission Status: Pending to [facility]/pharmacy #[id number] Primary Care Physician: Joseph Ricks MD [Primary Care Provider] - Within 2 Weeks Test Results: Test results from this visit will be discussed in further detail at your follow-up appointment, if applicable. Proposed Discharge Date: 03/20/20
--- NOTE | 2020-03-20 11:10 | DS.PCM_ITS ---
Discharge Date and Diagnosis - Problem List Patient Problems: Active and Suspected Problems (Last Reviewed 03/14/20 @ 23:[address] Per Feliciano MD) Pneumonia due to COVID-19 virus (Acute) Date of Admission: 03/14/20 Date of Discharge: 03/20/20 - Primary Discharge Diagnosis Acute Problems: Active Problems (Last Reviewed 03/14/20 @ 23:[address] Per Feliciano MD) Pneumonia due to COVID-19 virus (Acute) 1. acute hypoxic respiratory failure * Slowly improving * 2/2 COVID 19 pneumonia, ALI * wean oxygen as tolerated * Will initiate IV furosemide * still on Airvo. wean oxygen as able. 2. Acute COVID 19 pneumonia * on dexamethasone * remdesivir * Infectious isease consultation 3. Non-STEMI * Likely demand due to COVID-19, hypoxia * Troponins have been trending down, peak troponin 0.615 * Continue with therapeutic anticoagulation for now * Discussed with Dr. Ken who stated the patient would not be a candidate for catheterization procedure with his kidney disease and did not feel an echocardiogram would change his management at this time. We will hold off on cardiology consult unless patient condition changes. * continue with medical therapy: ASA, clopidogrel, HIS 4.CORA * improving * baseline creatinine 2.4 (from 09/29) went up to 3.28 5. DM2 * uncontrolled * exacerbated by steroids * on basal and SSI * monitor for now, but if remains elevated, will likely make adjustments - Secondary Discharge Diagnosis Chronic Problems: Chronic Problems (Last Reviewed 03/14/20 @ 23:[address] Per Feliciano MD) Venous insufficiency (Chronic) Hyperlipidemia (Chronic) Hypertension (Chronic) Acute on chronic diastolic heart failure (Chronic) Diabetes mellitus, type II (Chronic) History of non-ST elevation myocardial infarction (NSTEMI) (Chronic) Ischemic cardiomyopathy (Chronic) Stented coronary artery (Chronic 12/24/18) TREY to mid LAD ISR 2.25 X 38 Promus; TREY to mid LAD 2.5 X 28 Promus telescoped into previously placed stent (2.25); TREY to Proximal Diag 1 2.25 X 12 Promus; POBA to ostial Diag #1 with 2.0 X12 Emerge balloon, 85%--->20%, no dissection 12/24/18 per DJN @ [facility] PTCA and TREY to LAD 06/23/13 @ [facility]; Promus stent to DX 07/17/13 @ [facility] History of left heart catheterization (Chronic) 06/23/2013 @ [facility] Atherosclerotic heart disease of [place] coronary artery without angina pectoris (Chronic) PTCA and TREY to LAD 06/23/13; Promus stent to DX 07/17/13 Obesity (Chronic) Hospital Course and Treatment Imaging Results: Clinical Impression(s) from Imaging Studies Chest X-Ray 03/14/20 21:11 IMPRESSION: Bilateral ill-defined opacities concerning for multifocal pneumonia. Electronically Signed: Patricia Cook MD at 21:56 EST Tel , Service support , Brain CT 03/15/20 21:40 IMPRESSION: No acute intracranial abnormality. Chronic involutional and white matter changes. Individualized dose optimization techniques were used for this CT. at 2209 Reported and signed by: Sariah Sanford MD Electronically Signed: Sariah Sanford MD at 22:09 EST Tel , Service support , [place] Nick Operations: None Procedures: None Summary of Care Provided: The patient is a 49 year old M presents with shortness of breath. Patient was found to be COVID-19 positive. Patient's course was complicated by not sufficient myocardial infarction which is likely due to demand ischemia due to his respiratory failure. Patient was on dexamethasone remdesivir. Infectious disease was consulted. Patient overall has done well however though still will require oxygen. Patient dropped down into the mid 80s on oxygen around 85%. At rest, he was 90%. Patient required 4 L with activity for the meantime. Patient's course complicated by the patient being very frustrated with the pace of his improvements. He did become very frustrated and threatened to call the sheriffs officer on me at 1 point but subsequently patient was much more calm and understanding of the slow progress of his disease. [] Patient Problems: Active and Suspected Problems (Last Reviewed 03/14/20 @ 23:[address] Per Feliciano MD) Pneumonia due to COVID-19 virus (Acute) - Physical Exam Vitals/I&O's: Vital Signs Temp Pulse Resp BP Pulse Ox 35.9 C L 76 16 170/88 H 95 03/20/20 09:00 03/20/20 10:59 03/20/20 09:00 03/20/20 09:07 03/20/20 10:11 Oxygen Flow Rate (L/min) [ 4 AMBULATION with Oxygen] Oxygen Flow Rate (L/min) 4 Oxygen Delivery Method Nasal Cannula Weight: 134.2 kg Body Mass Index (BMI) 41.2 Intake and Output for Last 24 Hours 03/18/20 03/19/20 03/20/20 23:59 23:59 23:59 Intake Total 2665 / 3145 1700 / 1700 250 / 250 Output Total 2625 / 3675 3950 / 3950 750 / 750 Balance 40 / -530 -2250 / -2250 -500 / -500 General: Alert, No apparent distress HEENT: Atraumatic, Normocephalic Oral: Moist Mucosa, No Gingival or Mucosal Lesions/ Ulcerations Neck: No Nodes, Thyroid Normal Size and Texture Lungs: Clear to auscultation, Normal air movement, No rhonchi, No wheeze, No rales Cardiovascular: Regular rate, Regular Rhythm, Normal S1, Normal S2, No murmurs Abdomen: Bowel Sounds Present, Soft, Non Tender, Non-Distended, No Hepato- splenomegaly Extremities: No edema, No Calf Tenderness Microbiology Past 72 Hours 03/14/20 21:20 Blood Culture (Wb) - Anticubital Right Blood Culture - Final No growth in 5 days. 03/14/20 21:18 Blood Culture (Wb) #2 - Left Hand Blood Culture - Final No growth in 5 days. 03/18/20 03:30 Stool Enteric Bacteriology - Final 03/18/20 03:30 Stool C. difficile DNA Amplification - Final Laboratory Results 03/19/20 12:19: POC Glucose 259 H 03/19/20 17:16: POC Glucose 276 H 03/19/20 21:40: POC Glucose 326 H 03/20/20 05:37: WBC 13.6 H, RBC 3.96 L, Hgb 10.7 L, Hct 32.7 L, MCV 82.6, MCH 27.0, MCHC 32.7, RDW Std Deviation 41.3, RDW Coeff of Rajendra 13.8, Plt Count 418, MPV 10.6 03/20/20 05:37: Sodium 139, Potassium 3.7, Chloride 108 H, Carbon Dioxide 25.0, Anion Gap 6, BUN 54 H, Creatinine 1.69 H, Estim Creat Clear Calc 55.08, Est GFR (MDRD) Af Amer 55 L, Est GFR (MDRD) Non-Af 46 L, BUN/Creatinine Ratio 32.0 H, Glucose 234 H, Calcium 8.1 L, Total Bilirubin 0.40, AST 44 H, ALT 57, Alkaline Phosphatase 63, Total Protein 6.2 L, Albumin 2.3 L, Globulin 3.9, Albumin/Globulin Ratio 0.6 L 03/20/20 07:49: POC Glucose 192 H Current Medications Acetaminophen (Acetaminophen 325 Mg Tablet) 650 mg PO Q6H PRN PRN PRN Reason: Fever of 100.4 Fahrenheit/pain 1-10 Amlodipine Besylate (Amlodipine 5 Mg Tablet) 5 mg PO DAILY@0800 [facility] Last Admin: 03/20/20 09:06 Dose: 5 mg Documented by: Apixaban (Apixaban 5 Mg Tablet) 5 mg PO BID [facility] Last Admin: 03/20/20 09:06 Dose: 5 mg Documented by: Aspirin (Aspirin 81 Mg Tab.Chew) 81 mg PO DAILY@0800 [facility] Last Admin: 03/20/20 09:07 Dose: 81 mg Documented by: Atorvastatin Calcium (Atorvastatin Calcium 80 Mg Tablet) 80 mg PO QHS [facility] Last Admin: 03/19/20 21:42 Dose: 80 mg Documented by: Clopidogrel Bisulfate (Clopidogrel Bisulfate 75 Mg Tablet) 75 mg PO DAILY@0800 [facility] Last Admin: 03/20/20 09:06 Dose: 75 mg Documented by: Dexamethasone (Dexamethasone 4 Mg Tablet) 6 mg PO DAILY@0800 [facility] Last Admin: 03/20/20 09:05 Dose: 6 mg Documented by: Dextrose (Dextrose 50%-Water 25 Gm/50 Ml Disp.Syrin) 0 gm IV X1 PRN; Protocol PRN Reason: Hypoglycemia Famotidine (Famotidine 20 Mg Tablet) 20 mg PO DAILY@0800 [facility] Last Admin: 03/20/20 09:06 Dose: 20 mg Documented by: Furosemide (Furosemide 40 Mg/4 Ml Vial) 40 mg IV BID@1000,1700 [facility] Last Admin: 03/20/20 09:06 Dose: 40 mg Documented by: Glimepiride (Glimepiride 2 Mg Tablet) 2 mg PO DAILYCM [facility] Last Admin: 03/20/20 09:06 Dose: 2 mg Documented by: Glucagon (Glucagon 1 Mg/Ml Syringe) 1 mg IM .X1 PRN PRN Reason: Hypoglycemia Guaifenesin (Guaifenesin 10 Ml Udc (200mg/10ml)) 10 ml PO Q6H PRN PRN PRN Reason: COUGH Hydralazine HCl (Hydralazine 50 Mg Tablet) 50 mg PO 0800,2200 [facility] Last Admin: 03/20/20 09:07 Dose: 50 mg Documented by: Hydralazine HCl (Hydralazine 25 Mg Tablet) 25 mg PO 0800,2200 [facility] Last Admin: 03/20/20 09:06 Dose: 25 mg Documented by: Sodium Chloride () 250 mls @ 15 mls/hr IV .[id number] PRN PRN Reason: Additional IVPB Infusion Insulin Glargine (Insulin Glargine 100 Units/Ml Pen) 30 units SC BID@0800,2200 [facility] Last Admin: 03/20/20 09:09 Dose: 30 u Documented by: Insulin Human Lispro (Insulin Lispro 100 Unit/Ml Insuln.Pen) 0 unit SC 0800,1200,1700,2200 [facility]; Protocol Last Admin: 03/20/20 09:07 Dose: 2 u Documented by: Insulin Human Lispro (Insulin Lispro 100 Unit/Ml Insuln.Pen) 10 unit SC TIDAC [facility] Last Admin: 03/20/20 09:08 Dose: 10 units Documented by: Isosorbide Mononitrate (Isosorbide Mononitrate 60 Mg Tablet) 60 mg PO DAILY@0800 [facility] Last Admin: 03/20/20 09:07 Dose: 60 mg Documented by: Labetalol HCl (Labetalol (Prefilled) 20 Mg/4 Ml) 10 mg IV Q6 PRN PRN Reason: SBP> 160 or DBP > 120 Last Admin: 03/18/20 06:39 Dose: 10 mg Documented by: Metoprolol Succinate (Metoprolol(Xl)Succ 50 Mg Tablet) 50 mg PO DAILY@0800 [facility] Last Admin: 03/20/20 09:06 Dose: 50 mg Documented by: Sodium Chloride (0.9% Saline Lock 10 Ml Syringe) 10 - 40 ml IV UD PRN PRN Reason: SALINE FLUSH Last Admin: 03/18/20 06:40 Dose: 10 ml Documented by: Sodium Chloride (0.9% Saline Lock 10 Ml Syringe) 10 - 40 ml IV UD PRN PRN Reason: SALINE FLUSH Discharge Diet: No Restrictions Discharge Activity: Return to Normal Activity - ease back slowly in your routine. Call your doctor if you observe: Fever of 101 or Higher, Shortness of breath Home Medications: Medications to take at Discharge Aspirin [Aspirin, Baby] 81 mg PO DAILY@0800 09/28/14 Famotidine [Pepcid] 20 mg PO DAILY 09/28/14 Mag-Ox 400 1 tab PO DAILY 09/28/14 nitroglycerin 0.4 mg sublingual tablet 0.4 mg SUBLINGUAL Q5-15M PRN 04/20/17 metoprolol succinate 50 mg tablet,extended release 24 hr 50 mg PO DAILY tab 12/16/18 Atorvastatin Calcium 80 mg PO QHS 12/20/18 Clopidogrel Bisulfate [Plavix] 75 mg PO DAILY #90 tab 12/25/18 glimepiride 2 mg tablet 2 mg PO QAM #90 tab 03/11/19 hydralazine 25 mg tablet 25 mg PO .COMPLEX #90 tab 09/08/19 hydralazine 50 mg tablet 50 mg PO .COMPLEX #90 tab 09/08/19 losartan 25 mg tablet 25 mg PO DAILY 09/09/19 furosemide 40 mg tablet 40 mg PO .COMPLEX #240 tab 11/18/19 isosorbide mononitrate 60 mg tablet,extended release 24 hr 60 mg PO DAILY #90 tab 11/18/19 amlodipine 5 mg tablet 5 mg PO DAILY #90 tab 02/16/20 Apixaban [Eliquis] 2.5 mg PO BID #20 tab 03/20/20 Dexamethasone [Decadron] 6 mg PO DAILY #4 tab 03/20/20 Insulin Glargine,Hum.rec.anlog [Michelleaglmichelle Kay U-100] 30 unit SUBCUT BID #0 ml 03/20/20 Following Prescriptions Were Given to Patient: Dexamethasone [Decadron] 6 mg PO DAILY #4 tab Transmission Status: Pending to [facility]/pharmacy #[id number] Apixaban [Eliquis] 2.5 mg PO BID #20 tab Transmission Status: Received by [facility]/pharmacy #[id number] Primary Care Physician: Joseph Ricks MD [Primary Care Provider] - Within 2 Weeks Disposition: Home Minutes spent on discharge:: 32 Patient Condition:: Fair Medical Necessity - Tobacco Use Smoking Status: Never smoker Meaningful Use Info Meaningful Use Diagnoses (Choose all that apply): None applicable Inpatient E&M: 51892 Disch Hosp
[2020-03-20 12:41] LABS: Bedside Glucose 236 mg/dL (70-110)
--- NOTE | 2020-03-22 13:51 | CASEMGMT ---
RN CM ED PHONE CALL DC DATE: 03/20/2020 DC DISPOSITION: Home with oxygen DC DIAGNOSIS: SARS COVID 2 Attempted call to phone. No answer and no messaging with name identifier. Hector ARVIZU RN ACM
--- NOTE | 2020-03-22 13:54 | CASEMGMT ---
Addendum entered by Brian Gaspar 03/22/20 14:28: Patient returned call to floor. States he is doing well, however becomes more short of breath with ambulation. He is wearing 4L NC. RADHA KISER reviewed to call PCP if symptoms worsen. Patient did not have further questions or concerns. Hector HOPKINS Original Note: RADHA KISER DISCHARGE PHONE CALL DC DATE: 03/20/2020 DC DISPOSITION: Home with oxygen DC DIAGNOSIS: SARS COVID 2 Attempted call to phone. No answer and no messaging with name identifier. Hector CASTRO
== END 2020-03-20 13:06 | disposition home or self-care (01) | DRG 177 ==
LOC: ED 21:38 → PCU 23:31
PROVIDERS: Internal Medicine Infectious Disease; Admitting Provider Hospitalist; Emergency Provider Emergency Medicine; PCP Family Medicine
DX: U07.1 COVID-19 (principal); J12.89 Other viral pneumonia; I50.33 Acute on chronic diastolic (congestive) heart failure; J96.01 Acute respiratory failure with hypoxia; I21.4 Non-ST elevation (NSTEMI) myocardial infarction; N17.9 Acute kidney failure, unspecified; I13.0 Hypertensive heart and chronic kidney disease with heart failure and stage 1 through stage 4 chronic kidney disease, or unspecified chronic kidney disease; Z68.41 Body mass index [BMI] 40.0-44.9, adult; I87.2 Venous insufficiency (chronic) (peripheral); E78.5 Hyperlipidemia, unspecified; I25.5 Ischemic cardiomyopathy; I25.10 Atherosclerotic heart disease of native coronary artery without angina pectoris; E66.01 Morbid (severe) obesity due to excess calories; E11.65 Type 2 diabetes mellitus with hyperglycemia; E11.22 Type 2 diabetes mellitus with diabetic chronic kidney disease; F68.8 Other specified disorders of adult personality and behavior; E78.00 Pure hypercholesterolemia, unspecified; N18.30 Chronic kidney disease, stage 3 unspecified; T38.0X5A Adverse effect of glucocorticoids and synthetic analogues, initial encounter; I25.2 Old myocardial infarction; Z95.5 Presence of coronary angioplasty implant and graft; Z79.02 Long term (current) use of antithrombotics/antiplatelets; Z79.4 Long term (current) use of insulin; Z82.49 Family history of ischemic heart disease and other diseases of the circulatory system; Z83.3 Family history of diabetes mellitus
CPT/HCPCS: 36415; 70450; 71045; 80048; 80053; 82570; 82962; 83605; 83880; 84145; 84300; 84484; 84540; 85025; 85027; 85379; 85610; 85730; 86900; 86901; 87040; 87449; 87493; 87506; 87635; 87804; 93005; 94660; 97110; 97162; 97166; 97530; 97535; 97802; 99285; J7030; J7040; J7050; A4216; J1940; U0002

== ENCOUNTER 2020-05-12 17:25 | Emergency (ER) | payer OTHER, SELFPAY ==
[2018-12-25 08:56] VITALS: BMI 37.9
[2020-03-15 00:34] VITALS: BMI 41.2
[2020-05-12 17:26] VITALS: BP 166/93; PULSE 92; RESP 20; TEMP 36.1; O2SAT 97; BMI 40.4
--- NOTE | 2020-05-12 17:38 | EKG12_ITS ---
Test Reason : Blood Pressure : / mmHG Vent. Rate : 089 BPM Atrial Rate : 089 BPM P-R Int : 166 ms QRS Dur : 104 ms QT Int : 386 ms P-R-T Axes : 044 038 043 degrees QTc Int : 469 ms Normal sinus rhythm Poor R- Wave Progression Inferior LA, age undetermined, cannot be excluded Confirmed by JULIA NUNEZ, JAZMINE ([id number]), film and video editor ISRAEL MALIK ([id number]) on 05/17/2020 1:18:05 PM Referred By: JESSICA/MARVA Confirmed By:JAZMINE DUMONT MD
--- NOTE | 2020-05-12 18:00 | ED.DCSUM_ITS ---
- ER Visit Summary Date of Service: 05/12/20 Chief Complaint: Chest pain and hypertension History of Present Illness: The patient is a 50 M who presents with chest pain and hypertension that has been intermittent over the past month. Patient states the pain is worse when he wakes up in the morning patient describes the pain as sharp. Patient states the pain last approximate 1 to 2 minutes. Patient states that it will occasionally come on during the day but still only last approximate 1 to 2 minutes. Patient states the pain is over the left upper chest area. Patient states nothing else makes it worse and nothing makes it better. Patient states occasionally feels like his heart is racing. Patient denies any nausea or vomiting. Patient denies any shortness of breath. Patient states that today at his primary care office visit his blood pressure was elevated. Patient was then referred to the emergency department. Physical Examination: Vital signs are stable. Patient is afebrile. Patient is in no acute distress. Oral mucosa is pink and moist. Neck is supple. Trachea is midline. There is no JVD noted. Heart was regular rate and rhythm. Lungs are clear and equal bilaterally. Abdomen is soft. Bowel sounds are normal. There is no tenderness. There is no rebound or guarding noted. Skin is warm dry. Cranial nerves II through XII are intact. There are no focal motor or sensory deficits noted. Extremities are intact. There is no calf tenderness or edema. Test Results: EKG was obtained. On my interpretation, there is a normal sinus rhythm with a rate of 89. There are Q waves noted in leads III and aVF. There are no acute ST or T wave changes. CBC and comprehensive metabolic profile were obtained. BUN and creatinine were elevated at 66 and 2.75. These are consistent with prior results. Troponin was normal. Portable 1 view chest x- ray was obtained. On my interpretation, lung sheth are clear. There is normal cardiac silhouette. Bony thorax is normal. There is no acute process noted. Radiologist also interpreted the x-ray and agrees. Emergency Department Course and Treatment: Patient was given a dose of labetalol here. Patient's blood pressure improved to 169/84. Patient's blood pressure was starting to increase again. Patient feels better on reevaluation. Patient was instructed to increase his amlodipine to 7.5 mg daily. Patient was instructed to follow-up with his primary care physician in 3 to 5 days. Patient understood and was agreeable with the plan. All questions were answered. Disposition: Discharge home Impression: 1. Chest pain 2. Hypertension This note was generated with [employer] dictation software. It may contain incorrect words, spelling, and punctuation that were not noted in review of the chart prior to signing ED Disposition - Plan for ED Patient: Disposition: Home or Assisted Living Diagnosis: Chest pain, Hypertension Instructions: ED Hypertension, Established, ED Chest Pain, Uncertain Cause Referrals: Joseph Ricks MD [Primary Care Provider] - 3-5 Days Barry Ken MD [STAFF PHYSICIAN] - 3-5 Days Additional Instructions: Increase your amlodipine to 7.5 mg (1 and 1/2 tablets) daily.
--- NOTE | 2020-05-12 18:02 | RAD_ITS ---
STUDY: X-RAY CHEST REASON FOR EXAM: Male, 50 years old. CHEST PAIN TECHNIQUE: Single frontal view of the chest. COMPARISON: 03/14/2020. FINDINGS: Cardiac silhouette prominent. Pulmonary vascularity unremarkable. Aorta unremarkable. No focal airspace opacities. No pleural effusions. Upper abdomen unremarkable. Osseous structures intact. No pneumothorax. RAD/Chest 1 View (Portable) IMPRESSION: Limited radiograph due to lordotic positioning. No acute cardiopulmonary process identified. Electronically Signed: Sean Aparicio MD at 18:44 EST Tel , Service support ,
[2020-05-12 18:26] VITALS: BP 169/84; PULSE 81; RESP 18; O2SAT 98
[2020-05-12 18:27] LABS: Absolute Lymphocyte Count 1.09 X10^3/uL (0.83-4.51); Absolute Neutrophil Count 3.9 X10^3/uL (2.0-7.7); Basophil# 0.05 X10^3/uL; Basophil% 0.9 % (0-1); Eosinophil# 0.24 X10^3/uL; Eosinophils% 4.1 % (0-5); Hematocrit 31.3 % (40-54); Hemoglobin 10.2 g/dL (13.0-16.5); Lymphocyte # 1.09 X10^3/ul (4.0); Lymphocyte % 18.5 % (19-41); Mean Corp Hgb Conc 32.6 g/dL (32-36); Mean Corpuscular Hgb 27.4 pg (27.0-32.0); Mean Corpuscular Volume 84.1 fL (80-94); Mean Platelet Vol. 11.6 fl (6.2-12.0); Monocyte# 0.54 X10^3/uL; Monocyte% 9.2 % (0-10); NRBC Flagged by Analyzer 0 % (0-5); Neutrophil # 3.93 X10^3/uL (2.7-7.7); Neutrophil % 66.8 % (47-70); Platelet Count 249 K/mm3 (150-450); RBC Distribution Width CV 14.4 % (11.6-14.6); RBC Distribution Width SD 44.1 fl (35.1-43.9); Red Blood Count 3.72 M/mm3 (4.6-6.2); White Blood Count 5.9 K/mm3 (4.4-11.0)
[2020-05-12 18:30] LABS: ALB/GLOB Ratio 0.9 RATIO (0.9-2.4); AST(SGOT) 18 U/L (15-37); Alanine Aminotransfer ALT/SGPT 25 U/L (16-61); Albumin, Serum 3.8 g/dL (3.2-5.0); Alkaline Phosphatase 77 U/L (45-117); Anion Gap 3 (5-15); BUN 66 mg/dL (7-18); Calcium,Total 8.9 mg/dL (8.5-10.1); Chloride 105 mmol/L (98-107); Creatinine, Serum 2.75 mg/dL (0.70-1.30); EST Glomerular Filtration Rate 26 mL/min (>60); Est Glom Filt Rate - Afr Amer 31 mL/min (>60); Estimated Creatinine Clearance 33.47 ml/min; Globulin 4.2 g/dL (2.2-4.2); Glucose 276 mg/dL (74-106); Potassium 3.9 mmol/L (3.5-5.1); Sodium Level 138 mmol/L (136-145)
[2020-05-12 19:00] VITALS: PULSE 81; RESP 18; O2SAT 97
[2020-05-12] MEDS: Labetalol (Prefilled) 20 MG/4 ML IV (19:02)
[2020-05-12 20:00] VITALS: BP 162/88; PULSE 79; RESP 16; O2SAT 98
== END 2020-05-12 20:00 | disposition home or self-care (01) ==
PROVIDERS: Emergency Provider Emergency Medicine; PCP Family Medicine
DX: R07.9 Chest pain, unspecified (principal); I10 Essential (primary) hypertension
CPT/HCPCS: 71045; 80053; 84484; 85025; 93005; 99283; A4216

== ENCOUNTER 2020-08-21 23:24 | Inpatient (IN) | payer OTHER, SELFPAY ==
[2018-12-25 08:56] VITALS: BMI 37.9
[2020-08-21 23:25] VITALS: BP 152/69; PULSE 92; RESP 18; TEMP 37.2; O2SAT 96; BMI 36.2
[2020-08-21 23:26] VITALS: BP 152/69; PULSE 92; RESP 18; TEMP 37.2; O2SAT 96
[2020-08-22] VITALS (18 sets, daily range): BP systolic 146–183; BP diastolic 67–89; PULSE 75–86; RESP 16–20; TEMP 36.6–37.3; O2SAT 94–99; BMI 42.0
--- NOTE | 2020-08-22 00:14 | EKG12_ITS ---
Test Reason : ABD PAIN Blood Pressure : / mmHG Vent. Rate : 091 BPM Atrial Rate : 091 BPM P-R Int : 164 ms QRS Dur : 104 ms QT Int : 372 ms P-R-T Axes : 050 033 036 degrees QTc Int : 457 ms Normal sinus rhythm Inferior infarct , age undetermined Abnormal ECG Confirmed by DANNY NUNEZ, CHAPARRO ([id number]), newspaper photo editor ISRAEL MALIK ([id number]) on 08/24/2020 9:23:21 AM Referred By: RADHA Confirmed By:CHAPARRO DELGADO MD
--- NOTE | 2020-08-22 00:16 | EDS_ITS ---
HPI History of Present Illness HPI Narrative: Patient presents with a right great toe infection. He stated 2 days ago he started to get redness and swelling in his foot and right great toe. It became more swollen over the last 2 days. This morning when he woke up he noticed that his right great toe was draining with purple discoloration and some yellow infection under the skin. Decided to come in this evening for evaluation. He does have a history of diabetes. He is not on insulin at this time. He has a history of coronary artery disease in the past as well as diastolic CHF. Patient stated the redness has progressed up his leg almost to the top of his nunez. Denies any fevers or chills. Denies any pain to the area. Current severity is severe. Denies any systemic symptoms. Chief Complaint: Wound [facility] Medical History Atherosclerotic heart disease of [place] coronary artery without angina pectoris Chronic diastolic (congestive) heart failure Diabetes mellitus, type II Essential (primary) hypertension History of non-ST elevation myocardial infarction (NSTEMI) (03/15/20) Hyperlipidemia Ischemic cardiomyopathy (06/2013) Obesity Pneumonia due to COVID-19 virus (03/14/20) Venous insufficiency Home Medications Mag-Ox 400 1 tab PO DAILY 09/28/14 [History Last Taken 12/20/18] aspirin 81 mg PO DAILY@0800 09/28/14 [History Last Taken 12/20/18] famotidine 20 mg PO DAILY 09/28/14 [History Last Taken 12/20/18] nitroglycerin 0.4 mg sublingual tablet 0.4 mg SUBLINGUAL Q5-15M PRN 04/20/17 [History Last Taken Unknown] atorvastatin 80 mg PO QHS 12/20/18 [History Last Taken 12/19/18] clopidogrel 75 mg PO DAILY #90 tab 12/25/18 [Rx Last Taken Unknown] glimepiride 2 mg tablet 2 mg PO QAM #90 tab 03/11/19 [Rx Last Taken Unknown] hydralazine 25 mg tablet 25 mg PO .COMPLEX #90 tab 09/08/19 [Rx Last Taken Unknown] hydralazine 50 mg tablet 50 mg PO .COMPLEX #90 tab 09/08/19 [Rx Last Taken Unknown] losartan 25 mg tablet 25 mg PO DAILY 09/09/19 [History Last Taken Unknown] furosemide 40 mg tablet 40 mg PO .COMPLEX #240 tab 11/18/19 [Rx Last Taken Unknown] amlodipine 5 mg tablet 5 mg PO DAILY #90 tab 02/16/20 [Rx Last Taken Unknown] apixaban 2.5 mg PO BID #20 tab 03/20/20 [Rx Last Taken Unknown] dexamethasone 6 mg PO DAILY #4 tab 03/20/20 [Rx Last Taken Unknown] insulin glargine 30 unit SC BID #0 ml 03/20/20 [Rx Last Taken Unknown] metoprolol succinate 100 mg tablet,extended release 24 hr 100 mg PO DAILY #90 tab 05/13/20 [Rx Last Taken Unknown] isosorbide mononitrate 60 mg tablet,extended release 24 hr 60 mg PO DAILY #90 tab 07/21/20 [Rx Last Taken Unknown] dulaglutide [Trulicity] 0.75 mg SUBCUT TH 08/21/20 [History Last Taken Unknown] Allergy/AdvReac Type Severity Reaction Status Date / Time lisinopril AdvReac Intermediate Cough Verified 08/21/20 23:27 losartan AdvReac Intermediate cough Verified 08/21/20 23:27 Family History Father , Age 57 from [place] Myocardial infarction CAD (coronary artery disease) Sudden cardiac Mother Sick sinus syndrome Sister Diabetes Surgical History History of coronary artery stent placement (01/02/19) Social History Smoking Status: Never smoker ROS ROS ED ROS Narrative ROS General: Denies fever, chills, sweats Eyes: Denies visual changes, blurred vision, double vision ENT: Denies ear pain, rhinorrhea, sore throat Cardiovascular: Denies chest pain, palpitations, heart racing Respiratory: Denies dyspnea, cough, sputum, dyspnea on exertion, orthopnea,PND GI: Denies abdominal pain, nausea, vomiting, diarrhea, constipation, melena : Denies dysuria, hematuria, frequency Musculoskeletal: See HPI Neuro: Denies headache, weakness, paresthesia Psych: Denies depression, anxiety Endo: Denies polyuria, polydipsia, polyphagia Heme: Denies easy bruising, easy bleeding, lymphadenopathy Allergy: Denies hives, swelling EXAM Physical Exam Narrative Exam Narrative: Vital signs reviewed General: Well-nourished well-developed Head: Normocephalic atraumatic Eyes: Pupils equal round and reactive to light extraocular movements intact ENT: TMs clear no hemotympanum no trauma Neck: Nontender full range of motion Cardiovascular: Regular rate rhythm no murmurs normal S1-S2 Respiratory: No distress clear to auscultation bilaterally chest nontender Abdomen: Soft nontender nondistended normal bowel sounds no masses Back: Nontender no CVA tenderness Extremities: Patient has a significant cellulitis to his right great toe with necrosis to the soft tissue with purple discoloration yellow discoloration. M ultiple areas where the skin is broken open and it is draining foul-smelling fluid. He has a cellulitis on the top of his foot extending up to the proximal nunez. Neuro alert oriented cranial nerves II through XII intact normal strength sensation reflexes Const Vital Signs: 08/21/20 23:25 08/21/20 23:26 Temperature 99 F 99 F Temperature Source Temporal Temporal Pulse Rate 92 92 Respiratory Rate 18 18 Blood Pressure 152/69 H 152/69 H Blood Pressure Mean 96 96 Pulse Ox 96 96 Oxygen Delivery Method Room Air Room Air MDM MDM MDM Narrative Medical decision making narrative: IV established patient given judicious IV fluids as he does have a history of CHF. Given empiric antibiotics after blood cultures including ciprofloxacin Zosyn and vancomycin empirically due to the significant soft tissue cellulitis with necrosis infection that he has. Lab work obtained. X-ray obtained. Of the right foot. X-ray shows some soft tissue gas in the dorsum of the toe consistent with cellulitis and significant soft tissue infection. Discussed with foot and ankle doctor Wunning plans on doing a washout of his foot tomorrow. Lab work shows a mild leukocytosis greater than 12,000. Lactate negative. He has a chronic renal insufficiency. Blood cultures are pending. I suspect these are to be negative as the patient does not have systemic symptoms. Remains without pain. Discussed with the hospitalist and will be admitted. Lab Data Labs: Laboratory Results - last 24 hr 08/21/20 08/21/20 08/21/20 23:55 23:55 23:55 WBC 12.3 H RBC 3.17 L Hgb 8.6 L Hct 26.4 L MCV 83.3 MCH 27.1 MCHC 32.6 RDW Std Deviation 42.5 RDW Coeff of Rajendra 13.8 Plt Count 241 MPV 11.4 Immature Gran % (Auto) 1.000 H Neut % (Auto) 78.4 H Lymph % (Auto) 8.2 L [place] % (Auto) 11.8 H Eos % (Auto) 0.4 Baso % (Auto) 0.2 Absolute Neuts (auto) 9.6 H Absolute Lymphs (auto) 1.01 Nucleated RBC % 0 PT 13.4 INR 1.1 APTT 32.2 Sodium 138 Potassium 3.7 Chloride 105 Carbon Dioxide 26.0 Anion Gap 7 BUN 86 H Creatinine 3.52 H Estim Creat Clear Calc 26.15 Est GFR (MDRD) Af Amer 24 L Est GFR (MDRD) Non-Af 20 L BUN/Creatinine Ratio 24.4 H Glucose 272 H Lactic Acid Calcium 9.0 08/21/20 23:55 WBC RBC Hgb Hct MCV MCH MCHC RDW Std Deviation RDW Coeff of Rajendra Plt Count MPV Immature Gran % (Auto) Neut % (Auto) Lymph % (Auto) [place] % (Auto) Eos % (Auto) Baso % (Auto) Absolute Neuts (auto) Absolute Lymphs (auto) Nucleated RBC % PT INR APTT Sodium Potassium Chloride Carbon Dioxide Anion Gap BUN Creatinine Estim Creat Clear Calc Est GFR (MDRD) Af Amer Est GFR (MDRD) Non-Af BUN/Creatinine Ratio Glucose Lactic Acid 0.9 Calcium Radiography Diagnostic Testing: Radiology Impression Foot X-Ray 08/22/20 00:55 IMPRESSION: Tarsal arthritis. Tarsometatarsal joint arthritis. Soft tissue thickening consistent with cellulitis. at 0122 Reported and signed by: Franklin Rubin MD Electronically Signed: Franklin Rubin MD at 1:20 EDT Tel , Service support , Discharge Plan Triage Chief Complaint: Wound Other Complaint: Cellulitis ED Provider: Favio Negrete Dx/Rx/DC Orders Prescriptions: No Action nitroglycerin 0.4 mg tablet, sublingual 0.4 mg SUBLINGUAL Q5-15M PRN (Reason: Cardiac/Chest Pain) RF: 0 glimepiride 2 mg tablet 2 mg PO QAM Qty: 90 RF: 0 losartan 25 mg tablet 25 mg PO DAILY RF: 0 furosemide 40 mg tablet 40 mg PO .COMPLEX Qty: 240 RF: 3 Mag-Ox 400 1 tab PO DAILY RF: 0 aspirin 81 MG tablet,chewable 81 mg PO DAILY@0800 RF: 0 famotidine 20 MG tablet 20 mg PO DAILY RF: 0 atorvastatin 80 MG tablet 80 mg PO QHS RF: 0 clopidogrel 75 MG tablet 75 mg PO DAILY Qty: 90 RF: 0 dexamethasone 6 MG tablet 6 mg PO DAILY Qty: 4 RF: 0 insulin glargine 100 unit/mL (3 mL) insulin pen 30 unit SC BID Qty: 0 RF: 0 apixaban 2.5 MG tablet 2.5 mg PO BID Qty: 20 RF: 0 Trulicity 0.75 mg/0.5 mL pen injector 0.75 mg SUBCUT TH RF: 0 hydralazine 50 mg tablet 50 mg PO .COMPLEX Qty: 90 RF: 11 hydralazine 25 mg tablet 25 mg PO .COMPLEX Qty: 90 RF: 11 amlodipine 5 mg tablet 5 mg PO DAILY Qty: 90 RF: 3 metoprolol succinate 100 mg tablet extended release 24 hr 100 mg PO DAILY Qty: 90 RF: 3 isosorbide mononitrate 60 mg tablet extended release 24 hr 60 mg PO DAILY Qty: 90 RF: 3 Primary Care Provider: Joseph Ricks
[2020-08-22 00:29] LABS: Absolute Lymphocyte Count 1.01 X10^3/uL (0.83-4.51); Absolute Neutrophil Count 9.6 X10^3/uL (2.0-7.7); Basophil# 0.03 X10^3/uL; Basophil% 0.2 % (0-1); Eosinophil# 0.05 X10^3/uL; Eosinophils% 0.4 % (0-5); Hematocrit 26.4 % (40-54); Hemoglobin 8.6 g/dL (13.0-16.5); International Normalized Ratio 1.1; Lymphocyte # 1.01 X10^3/ul (0.83-4.51); Lymphocyte % 8.2 % (19-41); Mean Corp Hgb Conc 32.6 g/dL (32-36); Mean Corpuscular Hgb 27.1 pg (27.0-32.0); Mean Corpuscular Volume 83.3 fL (80-94); Mean Platelet Vol. 11.4 fl (6.2-12.0); Monocyte# 1.45 X10^3/uL; Monocyte% 11.8 % (0-10); NRBC Flagged by Analyzer 0 % (0-5); Neutrophil # 9.62 X10^3/uL (2.7-7.7); Neutrophil % 78.4 % (47-70); Platelet Count 241 K/mm3 (150-450); Prothrombin Time (Protime)PT. 13.4 SECONDS (11.7-14.9); RBC Distribution Width CV 13.8 % (11.6-14.6); RBC Distribution Width SD 42.5 fl (35.1-43.9); Red Blood Count 3.17 M/mm3 (4.6-6.2); White Blood Count 12.3 K/mm3 (4.4-11.0)
[2020-08-22 00:30] LABS: Partial Thromboplast Time 32.2 Seconds (24.1-36.2)
[2020-08-22 00:35] LABS: Anion Gap 7 (5-15); BUN 86 mg/dL (7-18); BUN/Creat Ratio 24.4 RATIO (10-20); Chloride 105 mmol/L (98-107); Creatinine, Serum 3.52 mg/dL (0.70-1.30); EST Glomerular Filtration Rate 20 mL/min (>60); Est Glom Filt Rate - Afr Amer 24 mL/min (>60); Estimated Creatinine Clearance 26.15 ml/min; Glucose 272 mg/dL (74-106); Potassium 3.7 mmol/L (3.5-5.1); Sodium Level 138 mmol/L (136-145)
[2020-08-22 00:38] LABS: Lactic Acid 0.9 mmol/L (0.4-1.9)
--- NOTE | 2020-08-22 00:55 | RAD_ITS ---
HISTORY: infection, pain and swelling in right foot. Technique: Right foot AP, lateral, and oblique radiographs Comparison: None available Findings: No acute fracture or dislocation. Osseous mineralization, and alignment otherwise appear preserved as imaged. Tarsal and tarsal metatarsal joint arthritis is present. This is manifest by loss of joint spaces, cortical sclerosis, and osteophytes. There may be some soft tissue swelling over the dorsum of the right foot as well. RAD/Foot min 3 Views IMPRESSION: Tarsal arthritis. Tarsometatarsal joint arthritis. Soft tissue thickening consistent with cellulitis. at 0122 Reported and signed by: Franklin Rubin MD Electronically Signed: Franklin Rubin MD at 1:20 EDT Tel , Service support ,
[2020-08-22] MEDS: 0.9% Normal Saline 1,000 ML 150 ML IV (01:24)
--- NOTE | 2020-08-22 01:52 | HP.PCM.HOS_ITS ---
HPI - General General Date of Admission: 08/22/20 HPI Narrative YOSEPH PERSAUD, is a 50 M with a significant history of CAD status post stents on aspirin and Plavix; diabetes mellitus; hypertension; chronic diastolic heart failure who presents to the emergency department with swelling of his left foot that started about 2 days ago. 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 He took off his shoes and realized that his right foot was swollen; and was cracked between his right great toe and right second toe. There have to be realized that the swelling of his foot progressively worsened. He denies reyna pain in his right fourth and his right leg but he reports tightening in his right folds and his right leg. He has chronic erythema of the right nunez that has not changed. He denies any fever or chills. He reports anorexia. [facility] Medical History Atherosclerotic heart disease of [place] coronary artery without angina pectoris Chronic diastolic (congestive) heart failure Diabetes mellitus, type II Essential (primary) hypertension History of non-ST elevation myocardial infarction (NSTEMI) (03/15/20) Hyperlipidemia Ischemic cardiomyopathy (06/2013) Obesity Pneumonia due to COVID-19 virus (03/14/20) Venous insufficiency Home Medications Mag-Ox 400 1 tab PO DAILY 09/28/14 [History Last Taken 12/20/18] aspirin 81 mg PO DAILY@0800 09/28/14 [History Last Taken 12/20/18] famotidine 20 mg PO DAILY 09/28/14 [History Last Taken 12/20/18] nitroglycerin 0.4 mg sublingual tablet 0.4 mg SUBLINGUAL Q5-15M PRN 04/20/17 [History Last Taken Unknown] atorvastatin 80 mg PO QHS 12/20/18 [History Last Taken 12/19/18] clopidogrel 75 mg PO DAILY #90 tab 12/25/18 [Rx Last Taken Unknown] glimepiride 2 mg tablet 2 mg PO QAM #90 tab 03/11/19 [Rx Last Taken Unknown] hydralazine 25 mg tablet 25 mg PO .COMPLEX #90 tab 09/08/19 [Rx Last Taken Unknown] hydralazine 50 mg tablet 50 mg PO .COMPLEX #90 tab 09/08/19 [Rx Last Taken Unknown] losartan 25 mg tablet 25 mg PO DAILY 09/09/19 [History Last Taken Unknown] furosemide 40 mg tablet 40 mg PO .COMPLEX #240 tab 11/18/19 [Rx Last Taken Unknown] amlodipine 5 mg tablet 5 mg PO DAILY #90 tab 02/16/20 [Rx Last Taken Unknown] apixaban 2.5 mg PO BID #20 tab 03/20/20 [Rx Last Taken Unknown] dexamethasone 6 mg PO DAILY #4 tab 03/20/20 [Rx Last Taken Unknown] insulin glargine 30 unit SC BID #0 ml 03/20/20 [Rx Last Taken Unknown] metoprolol succinate 100 mg tablet,extended release 24 hr 100 mg PO DAILY #90 tab 05/13/20 [Rx Last Taken Unknown] isosorbide mononitrate 60 mg tablet,extended release 24 hr 60 mg PO DAILY #90 tab 07/21/20 [Rx Last Taken Unknown] dulaglutide [Trulicity] 0.75 mg SUBCUT TH 08/21/20 [History Last Taken Unknown] Allergy/AdvReac Type Severity Reaction Status Date / Time lisinopril AdvReac Intermediate Cough Verified 08/21/20 23:27 losartan AdvReac Intermediate cough Verified 08/21/20 23:27 Family History Father , Age 57 from [place] Myocardial infarction CAD (coronary artery disease) Sudden cardiac Mother Sick sinus syndrome Sister Diabetes Surgical History History of coronary artery stent placement (01/02/19) Social History Smoking Status: Never smoker ROS ROS Narrative 12 point review of system is negative except as stated in HPI Vital Signs Vital Signs Vital Signs: 08/21/20 23:25 08/21/20 23:26 08/22/20 01:26 Temperature 99 F 99 F 99.2 F H Temperature Source Temporal Temporal Oral Pulse Rate 92 92 86 Respiratory Rate 18 18 16 Blood Pressure 152/69 H 152/69 H 165/70 H Blood Pressure Mean 96 96 101 Pulse Ox 96 96 96 Oxygen Delivery Method Room Air Room Air Room Air Physical Exam Narrative Alert and oriented x3 Nontraumatic; normocephalic Lung clear to auscultate Heart sounds S1-S2. No murmur, gallop or rubs. Abdomen bowel sounds present soft, nontender nondistended Extremity: Left foot no swelling. Right foot and right leg with pitting edema; right great toe with opening and wound at the dorsal side; serosanguineous drainage present Lab / Micro Data Result Diagrams: 08/21/20 23:55 08/21/20 23:55 Labs: Laboratory Results - last 24 hr 08/21/20 08/21/20 08/21/20 23:55 23:55 23:55 WBC 12.3 H RBC 3.17 L Hgb 8.6 L Hct 26.4 L MCV 83.3 MCH 27.1 MCHC 32.6 RDW Std Deviation 42.5 RDW Coeff of Rajendra 13.8 Plt Count 241 MPV 11.4 Immature Gran % (Auto) 1.000 H Neut % (Auto) 78.4 H Lymph % (Auto) 8.2 L [place] % (Auto) 11.8 H Eos % (Auto) 0.4 Baso % (Auto) 0.2 Absolute Neuts (auto) 9.6 H Absolute Lymphs (auto) 1.01 Nucleated RBC % 0 PT 13.4 INR 1.1 APTT 32.2 Sodium 138 Potassium 3.7 Chloride 105 Carbon Dioxide 26.0 Anion Gap 7 BUN 86 H Creatinine 3.52 H Estim Creat Clear Calc 26.15 Est GFR (MDRD) Af Amer 24 L Est GFR (MDRD) Non-Af 20 L BUN/Creatinine Ratio 24.4 H Glucose 272 H Lactic Acid Calcium 9.0 08/21/20 23:55 WBC RBC Hgb Hct MCV MCH MCHC RDW Std Deviation RDW Coeff of Rajendra Plt Count MPV Immature Gran % (Auto) Neut % (Auto) Lymph % (Auto) [place] % (Auto) Eos % (Auto) Baso % (Auto) Absolute Neuts (auto) Absolute Lymphs (auto) Nucleated RBC % PT INR APTT Sodium Potassium Chloride Carbon Dioxide Anion Gap BUN Creatinine Estim Creat Clear Calc Est GFR (MDRD) Af Amer Est GFR (MDRD) Non-Af BUN/Creatinine Ratio Glucose Lactic Acid 0.9 Calcium Radiology Impression Foot X-Ray 08/22/20 00:55 IMPRESSION: Tarsal arthritis. Tarsometatarsal joint arthritis. Soft tissue thickening consistent with cellulitis. at 0122 Reported and signed by: Franklin Rubin MD Electronically Signed: Franklin Rubin MD at 1:20 EDT Tel , Service support , Assessment & Plan Assessment/Plan (1) Necrotizing cellulitis: (2) Uncontrolled diabetes mellitus: QUALIFIERS: Diabetes mellitus type: other specified (including IZABELA) Glycemic state: with hyperglycemia Qualified Code(s): E13.65 - Other specified diabetes mellitus with hyperglycemia (3) Chronic kidney disease: QUALIFIERS: Chronic kidney disease stage: stage 3 (moderate) Chronic kidney disease stage 3 subtype: stage 3b (GFR 30-44) Qualified Code(s): N18.32 - Chronic kidney disease, stage 3b (4) History of coronary artery stent placement: (5) Chronic diastolic (congestive) heart failure: (6) Essential (primary) hypertension: PLAN: Necrotizing cellulitis/right foot infection Foot x-ray showed soft tissue thickening consistent with cellulitis. Tarsal metatarsal joint arthritis. Tarsal arthritis. Patient with T-max of 99.2 Fahrenheit at the emergency department. White count of 12.3; neutrophilic predominance. Bandemia of 1% ESR and CRP ordered Discussed with emergent department to give tetanus shot. Given ciprofloxacin IV; Zosyn and vancomycin IV at emergency department. Vancomycin and Zosyn ordered for inpatients. Emergency department doctor discussed the case with Dr. Rahman, denier control operator who intend to do washout in a.m. and requested that patient be kept npo. N.p.o. except meds ordered. Received normal saline infusion at the emergency department. While n.p.o. hold home Lasix. Diabetes mellitus Patient with hyperglycemia on presentation Glimepiride continued. Accu-Chek every 6 hours of correction scale insulin ordered. CAD status post stents On aspirin and Plavix. Hold Plavix and a setting of surgical/percutaneous intervention. Aspirin continued. Hold home Eliquis Hypertension Blood pressure is not within goal Home blood pressure medications continued. Trend blood pressure and adjust blood pressure medications. Chronic diastolic heart failure Hold while NPO. DVT prophylaxis: SCD ordered. Visit Charges Inpatient E&M: 25738 Init Hosp L3
[2020-08-22] MEDS: Ciprofloxacin 400 MG/200 ML BAG 200 MG IV (01:55)
[2020-08-22 02:30] LABS: Erythrocyte Sedimentation Rate 50 mm/hr (0-20)
--- NOTE | 2020-08-22 03:00 | PCM.RX.CS ---
Consult Pharmacy has been consulted to manage selected antiobiotic: Vancomycin Type of Consult: New start Suspected Infection: Skin/Soft tissue Prior Doses of Antibiotics Received/Current Regimen: Medications Vancomycin HCl 1,250 mg/ (Sodium Chloride) 275 mls @ 167 mls/hr IV Q24H PAMELA Discontinued Medications Vancomycin HCl 1,500 mg/ (Sodium Chloride) 530 mls @ 250 mls/hr IV X1 ONE Stop: 08/22/20 02:20 Last Admin: 08/22/20 01:23 Dose: 250 mls/hr Labs: Sodium 138 mmol/L (136-145) 08/21/20 23:55 Potassium 3.7 mmol/L (3.5-5.1) 08/21/20 23:55 Chloride 105 mmol/L (98-107) 08/21/20 23:55 Carbon Dioxide 26.0 mmol/L (21.0-32.0) 08/21/20 23:55 Anion Gap 7 (5-15) 08/21/20 23:55 BUN 86 mg/dL (7-18) H 08/21/20 23:55 Creatinine 3.52 mg/dL (0.70-1.30) H 08/21/20 23:55 Est GFR (MDRD) Af Amer 24 mL/min (>60) L 08/21/20 23:55 Est GFR (MDRD) Non-Af 20 mL/min (>60) L 08/21/20 23:55 BUN/Creatinine Ratio 24.4 RATIO (10-20) H 08/21/20 23:55 Glucose 272 mg/dL (74-106) H 08/21/20 23:55 Weight used for dosin kg Estimated Creatinine Clearance: 26 Goal Trough: 15-20 mcg/mL Pharmacy Plan for Drug Dosing: Pharmacy Service will continue to monitor and adjust dosing as required. Follow-Up Labs: Trough Vancomycin Labs to be done on [date and time ordered]: 08/24/20 @0100
[2020-08-22] MEDS: Diphth,Pertuss(Acell),Tet Vac 0.5 ML Vial IM (03:56)
[2020-08-22] MEDS: Insulin Lispro 100 UNIT/ML INSULN.PEN SC ×4 (06:09→22:55)
[2020-08-22 06:31] LABS: Bedside Glucose 254 mg/dL (70-110)
[2020-08-22 06:39] LABS: Absolute Neutrophil Count 8.5 X10^3/uL (2.0-7.7); Basophil# 0.04 X10^3/uL; Basophil% 0.4 % (0-1); Eosinophil# 0.06 X10^3/uL; Eosinophils% 0.6 % (0-5); Hematocrit 24.6 % (40-54); Hemoglobin 7.8 g/dL (13.0-16.5); Lymphocyte % 8.3 % (19-41); Mean Corp Hgb Conc 31.7 g/dL (32-36); Mean Corpuscular Hgb 26.4 pg (27.0-32.0); Mean Corpuscular Volume 83.4 fL (80-94); Mean Platelet Vol. 11.4 fl (6.2-12.0); Monocyte# 1.22 X10^3/uL; Monocyte% 11.3 % (0-10); NRBC Flagged by Analyzer 0 % (0-5); Neutrophil # 8.45 X10^3/uL (2.7-7.7); Neutrophil % 78.2 % (47-70); Platelet Count 228 K/mm3 (150-450); RBC Distribution Width SD 42.6 fl (35.1-43.9); Red Blood Count 2.95 M/mm3 (4.6-6.2); White Blood Count 10.8 K/mm3 (4.4-11.0)
[2020-08-22 07:02] LABS: Anion Gap 9 (5-15); BUN 77 mg/dL (7-18); BUN/Creat Ratio 25.8 RATIO (10-20); Calcium,Total 8.3 mg/dL (8.5-10.1); Chloride 106 mmol/L (98-107); Creatinine, Serum 2.98 mg/dL (0.70-1.30); EST Glomerular Filtration Rate 24 mL/min (>60); Est Glom Filt Rate - Afr Amer 29 mL/min (>60); Estimated Creatinine Clearance 30.88 ml/min; Glucose 259 mg/dL (74-106); Potassium 3.5 mmol/L (3.5-5.1); Sodium Level 139 mmol/L (136-145)
[2020-08-22 08:24] LABS: Hemoglobin A1c 11.1 % (3.8-5.6)
--- NOTE | 2020-08-22 08:27 | PCM.CONS.GEN ---
Assessment & Plan Assessment/Plan (1) Necrotizing cellulitis: (2) Uncontrolled diabetes mellitus: QUALIFIERS: Diabetes mellitus type: other specified (including IZABELA) Glycemic state: with hyperglycemia Qualified Code(s): E13.65 - Other specified diabetes mellitus with hyperglycemia (3) Chronic kidney disease: QUALIFIERS: Chronic kidney disease stage: stage 3 (moderate) Chronic kidney disease stage 3 subtype: stage 3b (GFR 30-44) Qualified Code(s): N18.32 - Chronic kidney disease, stage 3b PLAN: Reviewed diagnostic data. There is severe infection to the right toe - particularly to the right 1st toe - there is gas on the xrays. WBC elevated, there is significant maloder. Due to the findings we discussed debridement of all nonviable, infected and necrotic soft tissue and bone with partial foot amputation, advised patient he we will least lose the right 1st toe due to the clinical findings. This was discussed with him in detail. Due to the necrotizing/gas infection this is considered an emergent infection case. The patient has been started on IV antibiotics - Vanc and Zosyn. Will plan to order LEAS for further evaluation of lower extremity arterial flow. No weightbearing right foot. Plan for OR today. Discussed with Dr. Oliver. HPI Consult Data Date of Consult: 08/22/20 HPI Narrative HPI Narrative: YOSEPH PERSAUD, is a 50 M who presents for right foot infection. Patient has many medical problems on many medications. He has diabetes, he relates he does not keep track of his hemoglobin a1c, and does not know when last time it was checked. He relates he does not know what happened to foot. He has no pain to the foot. There is severe infection to the right foot, particularly to the 1st toe. There is gas on xrays. The toe with bad oder and blue/black in color. He just came to the hospital last night, he relates his son brought him. He denies any fevers, chills, nausea or vomiting. Patient was admitted for further management. [facility] Medical History (Updated 08/22/20 @ 02:49 by Aleksandar Santana) Atherosclerotic heart disease of [place] coronary artery without angina pectoris Chronic diastolic (congestive) heart failure Diabetes mellitus, type II Essential (primary) hypertension History of non-ST elevation myocardial infarction (NSTEMI) (03/15/20) History of stress test Hyperlipidemia Ischemic cardiomyopathy (06/2013) Obesity Pneumonia due to COVID-19 virus (03/14/20) Venous insufficiency Home Medications Mag-Ox 400 1 tab PO DAILY 09/28/14 [History Last Taken 12/20/18] aspirin 81 mg PO DAILY@0800 09/28/14 [History Last Taken 12/20/18] famotidine 20 mg PO DAILY 09/28/14 [History Last Taken 12/20/18] nitroglycerin 0.4 mg sublingual tablet 0.4 mg SUBLINGUAL Q5-15M PRN 04/20/17 [History Last Taken Unknown] atorvastatin 80 mg PO QHS 12/20/18 [History Last Taken 12/19/18] clopidogrel 75 mg PO DAILY #90 tab 12/25/18 [Rx Last Taken Unknown] glimepiride 2 mg tablet 2 mg PO QAM #90 tab 03/11/19 [Rx Last Taken Unknown] hydralazine 25 mg tablet 25 mg PO .COMPLEX #90 tab 09/08/19 [Rx Last Taken Unknown] hydralazine 50 mg tablet 50 mg PO .COMPLEX #90 tab 09/08/19 [Rx Last Taken Unknown] losartan 25 mg tablet 25 mg PO DAILY 09/09/19 [History Last Taken Unknown] furosemide 40 mg tablet 40 mg PO .COMPLEX #240 tab 11/18/19 [Rx Last Taken Unknown] amlodipine 5 mg tablet 5 mg PO DAILY #90 tab 02/16/20 [Rx Last Taken Unknown] apixaban 2.5 mg PO BID #20 tab 03/20/20 [Rx Last Taken Unknown] dexamethasone 6 mg PO DAILY #4 tab 03/20/20 [Rx Last Taken Unknown] insulin glargine 30 unit SC BID #0 ml 03/20/20 [Rx Last Taken Unknown] metoprolol succinate 100 mg tablet,extended release 24 hr 100 mg PO DAILY #90 tab 05/13/20 [Rx Last Taken Unknown] isosorbide mononitrate 60 mg tablet,extended release 24 hr 60 mg PO DAILY #90 tab 07/21/20 [Rx Last Taken Unknown] dulaglutide [Trulicity] 0.75 mg SUBCUT TH 08/21/20 [History Last Taken Unknown] Allergy/AdvReac Type Severity Reaction Status Date / Time lisinopril AdvReac Intermediate Cough Verified 08/21/20 23:27 losartan AdvReac Intermediate cough Verified 08/21/20 23:27 Family History Father , Age 57 from [place] Myocardial infarction CAD (coronary artery disease) Sudden cardiac Mother Sick sinus syndrome Sister Diabetes Surgical History (Updated 08/22/20 @ 02:49 by Aleksandar Santana) H/O cardiac catheterization History of coronary artery stent placement (01/02/19) Social History Smoking Status: Never smoker ROS Constitutional Constitutional: Denies chills or fever(s) Gastrointestinal Gastrointestinal: Denies nausea or vomiting Integumentary Integumentary: Reports wounds Physical Exam Const alert, oriented x3 and no apparent distress Extremity Extremity Narrative: There is severe maloder coming from the right 1st toe. The right 1st toe is necrotic and boggy, there is ulceration to the medial aspect with drainage, there is cellulitis to the foot. He has no pain to the right foot. There are no other open lesions to the right foot or ankle bilateral. Pedal pulses are palpable to the foot bilateral. No evidence of charcot neuroarthropathy to the foot or ankle bilateral. Lab / Micro Data Result Diagrams: 08/22/20 06:16 08/22/20 06:16 Labs: Laboratory Results - last 24 hr 08/21/20 08/21/20 08/21/20 23:55 23:55 23:55 WBC 12.3 H RBC 3.17 L Hgb 8.6 L Hct 26.4 L MCV 83.3 MCH 27.1 MCHC 32.6 RDW Std Deviation 42.5 RDW Coeff of Rajendra 13.8 Plt Count 241 MPV 11.4 Immature Gran % (Auto) 1.000 H Neut % (Auto) 78.4 H Lymph % (Auto) 8.2 L Gilchrist % (Auto) 11.8 H Eos % (Auto) 0.4 Baso % (Auto) 0.2 Absolute Neuts (auto) 9.6 H Absolute Lymphs (auto) 1.01 Nucleated RBC % 0 ESR PT 13.4 INR 1.1 APTT 32.2 Sodium 138 Potassium 3.7 Chloride 105 Carbon Dioxide 26.0 Anion Gap 7 BUN 86 H Creatinine 3.52 H Estim Creat Clear Calc 26.15 Est GFR (MDRD) Af Amer 24 L Est GFR (MDRD) Non-Af 20 L BUN/Creatinine Ratio 24.4 H Glucose 272 H Hemoglobin A1c Lactic Acid Calcium 9.0 C-React Prot Ext Range POC Glucose 08/21/20 08/21/20 08/21/20 23:55 23:55 23:55 WBC RBC Hgb Hct MCV MCH MCHC RDW Std Deviation RDW Coeff of Rajendra Plt Count MPV Immature Gran % (Auto) Neut % (Auto) Lymph % (Auto) Gilchrist % (Auto) Eos % (Auto) Baso % (Auto) Absolute Neuts (auto) Absolute Lymphs (auto) Nucleated RBC % ESR 50 H PT INR APTT Sodium Potassium Chloride Carbon Dioxide Anion Gap BUN Creatinine Estim Creat Clear Calc Est GFR (MDRD) Af Amer Est GFR (MDRD) Non-Af BUN/Creatinine Ratio Glucose Hemoglobin A1c Lactic Acid 0.9 Calcium C-React Prot Ext Range 208.00 H POC Glucose 08/22/20 08/22/20 08/22/20 06:05 06:16 06:16 WBC 10.8 RBC 2.95 L Hgb 7.8 L Hct 24.6 L MCV 83.4 MCH 26.4 L MCHC 31.7 L RDW Std Deviation 42.6 RDW Coeff of Rajendra 14.0 Plt Count 228 MPV 11.4 Immature Gran % (Auto) 1.200 H Neut % (Auto) 78.2 H Lymph % (Auto) 8.3 L Gilchrist % (Auto) 11.3 H Eos % (Auto) 0.6 Baso % (Auto) 0.4 Absolute Neuts (auto) 8.5 H Absolute Lymphs (auto) 0.90 Nucleated RBC % 0 ESR PT INR APTT Sodium 139 Potassium 3.5 Chloride 106 Carbon Dioxide 24.0 Anion Gap 9 BUN 77 H Creatinine 2.98 H Estim Creat Clear Calc 30.88 Est GFR (MDRD) Af Amer 29 L Est GFR (MDRD) Non-Af 24 L BUN/Creatinine Ratio 25.8 H Glucose 259 H Hemoglobin A1c Lactic Acid Calcium 8.3 L C-React Prot Ext Range POC Glucose 254 H 08/22/20 06:16 WBC RBC Hgb Hct MCV MCH MCHC RDW Std Deviation RDW Coeff of Rajendra Plt Count MPV Immature Gran % (Auto) Neut % (Auto) Lymph % (Auto) Gilchrist % (Auto) Eos % (Auto) Baso % (Auto) Absolute Neuts (auto) Absolute Lymphs (auto) Nucleated RBC % ESR PT INR APTT Sodium Potassium Chloride Carbon Dioxide Anion Gap BUN Creatinine Estim Creat Clear Calc Est GFR (MDRD) Af Amer Est GFR (MDRD) Non-Af BUN/Creatinine Ratio Glucose Hemoglobin A1c 11.1 H Lactic Acid Calcium C-React Prot Ext Range POC Glucose Radiology Impression Foot X-Ray 08/22/20 00:55 IMPRESSION: Tarsal arthritis. Tarsometatarsal joint arthritis. Soft tissue thickening consistent with cellulitis. at 0122 Reported and signed by: Franklin Rubin MD Electronically Signed: Franklin Rubin MD at 1:20 EDT Tel , Service support ,
--- NOTE | 2020-08-22 09:00 | TISS_PTH ---
PATIENT: YOSEPH PERSAUD Jr. LOC: 3 U#:[id number] AGE/SX: 50/M [place] [facility] [place]: Dr. Giuseppe Oliver DO : 1970 BED: 1 DIS: 08/26/2020 SPEC #: [id number] RECD: 08/23/20 07:10 STATUS: TOMMY RERay #: [id number] AGGIE: 08/22/20 09:[address]: Jimy Rahman DEPT: SURGICAL PATHOLOGY RECD BY: Dianne Contreras ENTERED: 08/23/20 08:51 SP TYPE: Tissue Bx OTHR DR: MD Dr. Jimy Gregg, DPM DO Dr. Joseph Gutierrez MD Tissues: A - TISSUE SURGICALLY REMOVED B - Toe, NOS Procedures: Decalcification bone/plaque Surgery Specimen Level III Surgery Specimen Level IV Comments: @ Ordering doctor for SUIV edited from to @ by JENISE at 08/23/20 141 @ Submitting doctor edited from to @ by JENISE at 08/23/201411 HEADER OPERATION: Right first toe amputation with bone debridement right foot PRE-OP DIAGNOSIS: Necrotizing cellulitis right foot TISSUE SUBMITTED: A ? Clearance fragment first metatarsal right, B ? Amputated first toe right MICROSCOPIC DIAGNOSIS A. Clearance fragment first metatarsal right: Pieces of bone with reactive changes, negative for acute osteomyelitis. B. Right first toe, amputation: Extensive ulceration and acute inflammation. Underlying bone with reactive changes and mild acute osteomyelitis. SJ:nisha 08/26/2020 COMMENT Case has been reviewed in consultation with Dr. Buenrostro who concurs with the above diagnosis. IDC:AM MICROSCOPIC DESCRIPTION Slides are reviewed. GROSS DESCRIPTION A - Received in fixative is one container labeled with the patient's name and designated clearance fragment first metatarsal right. The specimen consists of two fragments of bone that in aggregate measure 0.5 x 0.3 x 0.3 cm. The specimen is totally submitted in one cassette after decalcification. B - Received in fixative is one container labeled with the patient's name and designated amputated first toe right. The specimen consists of a portion of toe measuring 7 x 4 x 3.5 cm. An extensive area of ulceration is noted on the dorsal surface of the toe. The nail is present and appears unremarkable. Sliver Lapper sections are submitted in four cassettes as follows: 1 & 2 ? ulcerated area, 3 & 4 ? bone underneath the ulcerated area after decalcification. / SJ:nisha 08/23/20 TC:2 CPT: 75748, 48550, 78335
[2020-08-22] MEDS: Bupivacaine Mpf 0.5% 30 ML VIAL (09:28)
--- NOTE | 2020-08-22 10:01 | PCM.OPRPT ---
Report of Operation Date of Procedure: 08/22/20 Pre-Operative Diagnosis: Narcotizing cellulitis/fasciitis, gas gangrene, diabetic foot ulcer right foot Post-Operative Diagnosis: Same Surgery/Procedure Performed:: Right 1st toe amputation, debridement of all nonviable, infected and necrotic soft tissue and bone right foot durability technician: None Type of Anesthesia: MAC/Supplemental/Local Specimen's removed: 1. Amputated right 1st toe sent to microbiology and pathology 2. Clearance fragment right 1st metatarsal sent to microbiology and pathology Estimated Blood Loss (mL): 40mL Description of Procedure: Indications: The patient is a 50 year old male with multiple medical problems including uncontrolled diabetes, peripheral neuropathy who presented with necrotic right 1st toe foot infection. There is gas to the 1st toe and severe maloder. We discussed the options with the patient in great detail, and patient elected to proceed with the procedure. This was discussed with him in detail, reviewed the possible benefits vs risks. They were advised the risks include, but are not limited to pain, further infections, need for further surgery, nonhealing, delay healing, scarring, poor cosmetic result, numbness, weakness, loss of function, complex regional pain syndrome, blood clots, loss of limb, loss of life. They expressed understanding and agreement, he was able to repeat back, all questions were answered. The consent form was reviewed and it was freely signed. No guarantees were given nor implied. I did discuss case with Dr. Oliver prior to the case. Operative Procedure: The patient was brought into the operating room, and was place on the operating room table in the supine position. He was carefully secured to the operating room table with a safely belt around his waist. A time out was performed, the patient was properly identified and the surgical plan was confirmed. He was already on IV antibiotics. A well padded pneumatic tourniquet was placed around the right ankle. The patient received MAC anesthesia per the anesthesiologist, then a total of 10mL of 0.5% Marcaine plain was given as right 1st ray block after the skin was cleansed with 70% isopropyl alcohol. The right foot was scrubbed, prepped and draped in the usual aseptic fashion. The right foot was elevated and also exsanguinated using an Esmarch bandage and the right ankle pneumatic tourniquet was inflated to 250mmHg. There was noted to be significant necrosis down to bone of the right 1st toe with surrounding cellulitis, there was noted to be significant edema and maloder consistent with infection, there was significant fluctuance, crepitus and bogginess. There was also noted to be a sub right 5th metatarsal head ulceration with some nonviable tissue, otherwise no signs of infection to this ulcer site - the ulcer was down to subcutaneous tissue layer. Using a 15 scalpel blade, the sub 5th metatarsal head was debrided in selection fashion down to subcutaneous tissue - the tissues are otherwise healthy and viable with no probe to bone or evidence of infection at this time. Ulcer measures 3.5cm x 4cm and 0.1cm in depth post debridement. Using a 15 scalpel blade all nonviable, necrotic, infected soft tissue and bone was debrided from the infected site of the 1st toe/1st ray, this entailed having to remove the entire 1st toe at the level of the 1st metatarsal phalangeal joint. The toe was disarticulated at the 1st metatarsal phalangeal joint. All of the phalanges of the 1st toe as well as the sesamoids were noted to be nonviable, soft, with areas of yellow/black and billings discoloration consistent with osteomyelitis. There was also purulence in the soft tissues of the toe with acute and chronic abscess formation. All nonviable bone and soft tissue was debrided in excisional fashion. The 1st metatarsal head did appear to be viable, white and healthy appearing, however since all of the surrounding soft tissues were necrotic and excised the distal 1st metatarsal head was resected using a powered sagittal saw and sent as a clearance fragment to pathology and microbiolgy. A deep wound / bone culture was obtained from the 1st toe at the site of the infection and was sent to microbiology for further evaluation. The removed tissue was sent to pathology for further evaluation as well. The site was flushed out with copious amounts of normal saline solution. All remaining tissues appeared to be healthy and viable, free of any infection. The site was again flushed out with copious amounts of normal saline solution. The site was packed with betadine soln wet to dry gauze dressing with overlying kerlix, abd and doc dressing. Gel foam was also packed to the site to help with hemostasis. The pneumatic tourniquet was deflated, and there was immediate return of good vascular flow to the left foot, with normal temperature gradient and CFT < 2 seconds to the amputation site and to all remaining toes. Total tourniquet time was 20 minutes. Patient tolerated the above procedure well with no complications. He was transferred back to the floor with vital signs stable and in good condition. He will be followed as inpatient. Post op xrays were ordered of the right foot - No weightbearing left foot, keep left foot elevated. He will be followed as an infection. Grafts/Implants Used: None Complications None
[2020-08-22 10:26] LABS: Bedside Glucose 225 mg/dL (70-110)
[2020-08-22 10:47] LABS: Hematocrit 22.5 % (40-54); Hemoglobin 7.1 g/dL (13.0-16.5)
[2020-08-22] MEDS: Glimepiride 2 MG Tablet PO (11:39)
[2020-08-22] MEDS: Aspirin 81 MG TAB.CHEW PO (11:40)
[2020-08-22] MEDS: Isosorbide Mononitrate 60 MG Tablet PO (11:46)
[2020-08-22] MEDS: Magnesium Chloride 64 MG Delay Rel.Tablet 128 MG PO (11:46)
[2020-08-22] MEDS: Losartan Potassium 25 MG Tablet PO (11:47)
[2020-08-22] MEDS: hydrALAZINE 25 MG Tablet 75 MG PO ×2 (11:47→22:48)
[2020-08-22] MEDS: amLODIPine 5 MG Tablet PO (11:48)
--- NOTE | 2020-08-22 14:02 | ART_ITS ---
Reason For Study: Ulcer Procedure A bilateral lower extremity continuous wave Doppler with analog waveform analysis,segmental pressures,and ankle brachial indexes without exercise. Left Segmental Pressures Left posterior tibial artery = >254mmHg. Left dorsalis pedis artery = 219mmHg. Left digit = 173 mmHg. The left dorsalis pedis waveforms are triphasic. The left posterior tibial artery waveforms are triphasic. Right Segmental Pressures Right brachial= 179mmHg. Right posterior tibial artery = 204mmHg. Right dorsalis pedis artery = 208mmHg. The right dorsalis pedis waveforms are triphasic. The right posterior tibial artery waveforms are triphasic. Indices The right ankle brachial index by the dorsalis pedis is 1.16. The right ankle brachial index by the posterior tibial artery is 1.14. The left ankle brachial index by the dorsalis pedis is 1.22. The left ankle brachial index by the posterior tibial artery is NC. The left digital-brachial index is 0.97. VL/Lower Ext Art Exam w/o Exercis Interpretation Summary Triphasic Doppler waveforms are noted at ankle level bilaterally. Pulse-volume recording waveform amplitudes are diminished at digital level on the right, but satisfactory at al l other levels bilaterally. Resting ankle-brachial indices are normal bilaterally. The right d igital-brachial index was not determined. The left digital-brachial index is normal. There is no evidence of significant arterial occlusive disease in the lower ext remities bilaterally. However, arterial flow at digital level on the right was not fully assessed. Ordering Physician: Jimy Rahman Referring Physician: Joseph Ricks Performed By: Taylor Nur RVT
--- NOTE | 2020-08-22 14:03 | VDLE_ITS ---
Reason For Study: Swelling RIGHT LEFT GSV is normal. GSV is normal. CFV is compressible, spontaneous, phasic, CFV is compressible, spontaneous, phasic, competent and demonstrates normal competent, and demonstrates normal augmentation. augmentation. FV is compressible, spontaneous, phasic, FV is compressible, spontaneous, phasic, competent and demonstrates normal competent and demonstrates normal augmentation. augmentation. POP V is compressible, spontaneous, phasic, POP V is compressible, spontaneous, phasic, competent and demonstrates normal competent and demonstrates normal augmentation. augmentation. T/P Trunk is compressible. T/P Trunk is compressible. PTV is compressible. PTV is compressible. RT PerV is compressible. LT PerV is compressible. Procedure This is a venous duplex using B-mode, color flow and spectral Doppler. Exam performed portable in patient room. A preliminary report was called and/or faxed to [facility]. VL/Venous Duplex US - Anibal Extrem Interpretation Summary Deep veins of the lower extremities are bilaterally patent and compressible seg mentally. There is no evidence of deep vein thrombosis on either side. Valvular competence appears in tact within the proximal deep venous systems bilaterally. The great saphenous veins appear bila terally patent and compressible segmentally. Ordering Physician: Jimy Rahman Referring Physician: Joseph Ricks Performed By: Taylor Nur RVT
[2020-08-22 15:26] LABS: Hematocrit 23.8 % (40-54); Hemoglobin 7.8 g/dL (13.0-16.5)
--- NOTE | 2020-08-22 15:26 | PCM.HOSP.N ---
Hospitalist Note Patient was seen and examined today, he went to surgery for amputation of his right great toe and debridement of devitalized tissue. Patient's hemoglobin later on this morning was 7.1, there is a hemoglobin pending this afternoon on the patient. For now patient will remain on his current medications, I discussed the case with podiatry today.
[2020-08-22 16:10] LABS: Bedside Glucose 434 mg/dL (70-110)
[2020-08-22] MEDS: Juven (unflavored) Packet 1 PACKET PO (18:13)
[2020-08-22 18:20] LABS: Bedside Glucose 243 mg/dL (70-110)
[2020-08-22] MEDS: Acetaminophen 325 MG Tablet 650 MG PO (18:21)
[2020-08-22] MEDS: Atorvastatin Calcium 80 MG Tablet PO (22:48)
[2020-08-22 23:25] LABS: Bedside Glucose 180 mg/dL (70-110)
[2020-08-23] VITALS (9 sets, daily range): BP systolic 142–172; BP diastolic 62–77; PULSE 84–94; RESP 16–18; TEMP 36.9–37.7; O2SAT 94–98
[2020-08-23] MEDS: 0.9% Saline Lock 10 ML Syringe IV ×4 (01:18→13:52)
[2020-08-23] MEDS: Insulin Lispro 100 UNIT/ML INSULN.PEN SC ×4 (06:30→20:49)
[2020-08-23 06:45] LABS: Bedside Glucose 163 mg/dL (70-110)
--- NOTE | 2020-08-23 07:10 | PN_ITS ---
Subjective Subjective This 50-year-old male (uncontrolled diabetes, anemia, and kidney disease) was seen bedside status post right foot hallux amputation. He denies fever, chill, nausea, vomiting. He relates some limb tenderness with dressing removal otherwise his pain is controlled. Objective Data Objective Data Vital Signs: Vital Signs Temp Pulse Resp BP Pulse Ox 99.3 F H 94 18 155/72 H 94 08/23/20 02:50 08/23/20 02:50 08/23/20 02:50 08/23/20 02:50 08/23/20 02:50 Oxygen Delivery Method Room Air Weight: 136.7 kg Body Mass Index (BMI) 42.0 Intake & Output: Intake and Output for Last 24 Hours 08/21/20 08/22/20 08/23/20 23:59 23:59 23:59 Intake Total 2360 / 2360 1125 / 1125 Output Total 3200 / 3525 1300 / 1300 Balance -840 / -1165 -175 / -175 Lab / Micro Data Result Diagrams: 08/22/20 15:05 08/22/20 06:16 Labs: Laboratory Results - last 24 hr 08/22/20 08/22/20 08/22/20 06:16 10:21 10:35 Hgb 7.1 L Hct 22.5 L Hemoglobin A1c 11.1 H POC Glucose 225 H 08/22/20 08/22/20 08/22/20 13:10 15:05 18:05 Hgb 7.8 L Hct 23.8 L Hemoglobin A1c POC Glucose 434 H 243 H 08/22/20 08/23/20 22:47 06:27 Hgb Hct Hemoglobin A1c POC Glucose 180 H 163 H Micro: Microbiology 08/22/20 08:00 Interface Orders SARS-CoV-2 Antigen (Rapid) - Final Physical Exam Const alert, oriented x3 and no apparent distress General Appearance: cooperative HEENT normocephalic Extremity normal capillary refill Extremity Narrative: Pedal pulses are palpable to the foot bilateral. No evidence of charcot neuroarthropathy to the foot or ankle bilateral. General Extremity: edema Skin Skin Narrative: no purulence, no erythema, no streaking, no odor. Adjacent skin is atrophic. Open amputation first ray resection with hematogenous drainage noted and exposed white nondiscolored bone. Adjacent skin and soft tissue is not necrotic Neuro Neuro Narrative: lack of normal epicritic sensation via light touch consistent with neuropathy Assessment & Plan Assessment/Plan (1) Necrotizing cellulitis: (2) Uncontrolled diabetes mellitus: QUALIFIERS: Diabetes mellitus type: other specified (including IZABELA) Glycemic state: with hyperglycemia Qualified Code(s): E13.65 - Other specified diabetes mellitus with hyperglycemia (3) Chronic kidney disease: QUALIFIERS: Chronic kidney disease stage: stage 3 (moderate) Ch ronic kidney disease stage 3 subtype: stage 3b (GFR 30-44) Qualified Code(s): N18.32 - Chronic kidney disease, stage 3b PLAN: I reviewed and discussed his case including his diagnostic data. He has been running a very low-grade temperature of around 99, otherwise vital stable. Open first ray resection performed yesterday. White blood cell count was 10.8 yesterday and is pending this morning with additional morning labs. Anemia status is noted. I recommend changing his dressing with Dakin wet-to-dry. Upon continued stabiliz ation transition to a wound VAC versus staged first ray resection with attempted closure will be considered. A dressing was applied today with Betadine. Clinical reassessment will be performed tomorrow morning. He is on emperic IV vancomycin and Zosyn at this time. Intraoperative cultures were obtained including aerobic, anaerobic, acid-fast, fungal. Additional MRSA PCR was ordered this morning. Blood cultures are also pending. I recommend an infectious disease consultation due to his limb loss status and comorbidities complicate this case. To continue with Leonides wraps and elevation to control lower extremity edema. Venous Dopplers order placed by Dr. Rahman over the weekend. Additionally noninvasive arterial studies including ABIs and toe pressures were ordered as well and these results are pending. To maintain a nonweightbearing status to the right lower extremity. Medical management and DVT prophylaxis per hospitalist team is appreciated. Please not hesitate to call if you have any questions. Kelsea Buchanan, PAULO, FACFAS
--- NOTE | 2020-08-23 07:32 | NURSING ---
wound photo: right foot
--- NOTE | 2020-08-23 07:33 | NURSING ---
wound photo: right foot
--- NOTE | 2020-08-23 07:45 | RAD_ITS ---
STUDY: X-RAY - RIGHT FOOT CLINICAL: Male, 50 years old. Postop from amputation of the phalanges of the great toe. TECHNIQUE: 3 view(s) of the foot. COMPARISON: 08/22/2020 FINDINGS: Since the previous study, there has been amputation of the proximal distal phalanx of the great toe along with the sesamoid bones. There is normal postoperative soft tissue swelling and subcutaneous emphysema. No evidence of erosive lesion noted within the remaining first metatarsal or within the bones of the lesser toes. Persistent tarsal and tarsal metatarsal arthritis. Small calcaneal spurs RAD/Foot min 3 Views IMPRESSION: 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 Normal postoperative soft tissue swelling and subcutaneous emphysema. Bones of the foot otherwise unchanged from the preop study of 08/22/2020 Electronically Signed: Medhat Shine MD at 8:59 EDT , Service support ,
[2020-08-23] MEDS: Juven (unflavored) Packet 1 PACKET PO ×2 (08:08→17:48)
[2020-08-23] MEDS: Glimepiride 2 MG Tablet PO (08:08)
[2020-08-23] MEDS: Aspirin 81 MG TAB.CHEW PO (08:08)
[2020-08-23] MEDS: Losartan Potassium 25 MG Tablet PO (09:24)
[2020-08-23] MEDS: Isosorbide Mononitrate 60 MG Tablet PO (09:24)
[2020-08-23] MEDS: amLODIPine 5 MG Tablet PO (09:24)
[2020-08-23] MEDS: hydrALAZINE 25 MG Tablet 75 MG PO ×2 (09:24→20:44)
[2020-08-23 09:31] LABS: Absolute Lymphocyte Count 0.97 X10^3/uL (0.83-4.51); Absolute Neutrophil Count 7.8 X10^3/uL (2.0-7.7); Basophil# 0.06 X10^3/uL; Basophil% 0.6 % (0-1); Eosinophil# 0.22 X10^3/uL; Eosinophils% 2.1 % (0-5); Hematocrit 23.8 % (40-54); Hemoglobin 7.8 g/dL (13.0-16.5); Lymphocyte # 0.97 X10^3/ul (0.83-4.51); Lymphocyte % 9.4 % (19-41); Mean Corp Hgb Conc 32.8 g/dL (32-36); Mean Corpuscular Hgb 27.1 pg (27.0-32.0); Mean Corpuscular Volume 82.6 fL (80-94); Mean Platelet Vol. 10.6 fl (6.2-12.0); Monocyte# 1.06 X10^3/uL; Monocyte% 10.3 % (0-10); NRBC Flagged by Analyzer 0 % (0-5); Neutrophil # 7.82 X10^3/uL (2.7-7.7); Platelet Count 258 K/mm3 (150-450); RBC Distribution Width CV 13.7 % (11.6-14.6); RBC Distribution Width SD 41.2 fl (35.1-43.9); Red Blood Count 2.88 M/mm3 (4.6-6.2); White Blood Count 10.3 K/mm3 (4.4-11.0)
[2020-08-23 10:16] LABS: Anion Gap 6 (5-15); BUN 57 mg/dL (7-18); BUN/Creat Ratio 23.7 RATIO (10-20); Calcium,Total 8.6 mg/dL (8.5-10.1); Chloride 108 mmol/L (98-107); Creatinine, Serum 2.41 mg/dL (0.70-1.30); EST Glomerular Filtration Rate 30 mL/min (>60); Est Glom Filt Rate - Afr Amer 37 mL/min (>60); Estimated Creatinine Clearance 38.19 ml/min; Glucose 185 mg/dL (74-106); Potassium 3.8 mmol/L (3.5-5.1); Sodium Level 140 mmol/L (136-145)
[2020-08-23] MEDS: Magnesium Chloride 64 MG Delay Rel.Tablet 128 MG PO (11:03)
--- NOTE | 2020-08-23 11:10 | CASEMGMT ---
RADHA KISER Face to Face with patient for initial transition planning/care coordination assessment. RN CM introduced self and role at [facility]. Patient lying in bed, alert and oriented. Patient willing to participate in assessment and is able to answer all questions appropriately. Care providers, pharmacy, and demographics verified. Patient wishes to discharge home with possible HHC. Patient states he has no further needs or concerns at this time. CM to follow for discharge planning needs that may arise. PCP: [facility] Specialists: [employer] Preferred Pharmacy: [facility] Insurance: [employer] Prescription Benefit: yes Living Will/HPOA: none LNOK: , son Living Arrangements: Patient lives with son in a 1 story home with no steps to enter the home. Patient states he is independent at home. Transportation: self/son DME/HHC: Patient states he has raised toilet at home. Patient may benefit from walker and states his mother may have one that he can use. No previous HHC or SNF. Will monitor for need for HHC pending wound care and possible IV ATBs at discharge. Disposition Plan: Patient to discharge home with family support and follow-up plans in place. Will monitor for HHC Taylor ARVIZU, RN, CM
[2020-08-23 11:16] LABS: Bedside Glucose 177 mg/dL (70-110)
--- NOTE | 2020-08-23 13:18 | CASEMGMT ---
RN CM in to discuss discharge planning with patient. RN CM discussed possible HHC at discharge for wound care and potential IV ATBs. Patient was provided a list of HHC providers including quality and resource use data and consistent with the patient?s preferred geographic region, medical needs, and insurance network. Patient to review list and provide choice. CM will continue to follow this patient and plan for a safe discharge.
[2020-08-23 13:19] LABS: M R Staph aureus DNA By PCR Negative (Negative); Probe Check PASS; Specimen Processing Control PASS; Staph aureus DNA By PCR NEGATIVE (Negative)
--- NOTE | 2020-08-23 14:22 | PCM.CONS.GEN ---
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 Rahman. Surg cx with GNR, beta hemolytic organism. Cont vanc/zosyn. Counseled re: importance of covid vaccine, he is not interested. Will follow, thank you (2) Uncontrolled diabetes mellitus: QUALIFIERS: Diabetes mellitus type: other specified (including IZABELA) Glycemic state: with hyperglycemia Qualified Code(s): E13.65 - Other specified diabetes mellitus with hyperglycemia (3) Chronic kidney disease: QUALIFIERS: Chronic kidney disease stage: stage 3 (moderate) Chronic kidney disease stage 3 subtype: stage 3b (GFR 30-44) Qualified Code(s): N18.32 - Chronic kidney disease, stage 3b HPI Consult Data Date of Consult: 08/23/20 HPI Narrative HPI Narrative: YOSEPH PERSAUD, is a 50 M with DM neuropathy, presented 08/22 with one week of worsening R foot redness, swelling, drainage, and skin breakdown. No pain, no fever, no n/v/d. Refuses covid shot. Came to ED, started on vanc/zosyn, taken to OR 08/[address] Rahman for I&D and toe amputation. Feeling better. Full ROS performed and neg except as noted above. [facility] Medical History Atherosclerotic heart disease of circle coronary artery without angina pectoris Chronic diastolic (congestive) heart failure Diabetes mellitus, type II Essential (primary) hypertension History of non-ST elevation myocardial infarction (NSTEMI) (03/15/20) History of stress test Hyperlipidemia Ischemic cardiomyopathy (06/2013) Obesity Pneumonia due to COVID-19 virus (03/14/20) Venous insufficiency Home Medications Mag-Ox 400 1 tab PO DAILY 09/28/14 [History Last Taken 12/20/18] aspirin 81 mg PO DAILY@0800 09/28/14 [History Last Taken 12/20/18] famotidine 20 mg PO DAILY 09/28/14 [History Last Taken 12/20/18] nitroglycerin 0.4 mg sublingual tablet 0.4 mg SUBLINGUAL Q5-15M PRN 04/20/17 [History Last Taken Unknown] atorvastatin 80 mg PO QHS 12/20/18 [History Last Taken 12/19/18] clopidogrel 75 mg PO DAILY #90 tab 12/25/18 [Rx Last Taken Unknown] glimepiride 2 mg tablet 2 mg PO QAM #90 tab 03/11/19 [Rx Last Taken Unknown] hydralazine 25 mg tablet 25 mg PO .COMPLEX #90 tab 09/08/19 [Rx Last Taken Unknown] hydralazine 50 mg tablet 50 mg PO .COMPLEX #90 tab 09/08/19 [Rx Last Taken Unknown] losartan 25 mg tablet 25 mg PO DAILY 09/09/19 [History Last Taken Unknown] furosemide 40 mg tablet 40 mg PO .COMPLEX #240 tab 11/18/19 [Rx Last Taken Unknown] amlodipine 5 mg tablet 5 mg PO DAILY #90 tab 02/16/20 [Rx Last Taken Unknown] apixaban 2.5 mg PO BID #20 tab 03/20/20 [Rx Last Taken Unknown] dexamethasone 6 mg PO DAILY #4 tab 03/20/20 [Rx Last Taken Unknown] insulin glargine 30 unit SC BID #0 ml 03/20/20 [Rx Last Taken Unknown] metoprolol succinate 100 mg tablet,extended release 24 hr 100 mg PO DAILY #90 tab 05/13/20 [Rx Last Taken Unknown] isosorbide mononitrate 60 mg tablet,extended release 24 hr 60 mg PO DAILY #90 tab 07/21/20 [Rx Last Taken Unknown] dulaglutide [Trulicity] 0.75 mg SUBCUT TH 08/21/20 [History Last Taken Unknown] Allergy/AdvReac Type Severity Reaction Status Date / Time lisinopril AdvReac Intermediate Cough Verified 08/21/20 23:27 losartan AdvReac Intermediate cough Verified 08/21/20 23:27 Family History Father , Age 57 from [place] Myocardial infarction CAD (coronary artery disease) Sudden cardiac Mother Sick sinus syndrome Sister Diabetes Surgical History (Updated 08/22/20 @ 02:49 by Aleksandar Santana) H/O cardiac catheterization History of coronary artery stent placement (01/02/19) Social History Smoking Status: Never smoker Physical Exam Const alert, oriented x3 and no apparent distress General Appearance: cooperative Exam Limitations: no limitations HEENT normocephalic and head/scalp atraumatic Eyes PERRL and EOMs intact bilaterally Neck supple and No nodes Resp normal air movement and clear to auscultation bilaterally Cardio regular rate and regular rhythm GI normal to inspection, nondistended, normoactive bowel sounds Extremity General Extremity: edema Skin Skin Narrative: reviewed wound photos Neuro CN's II-XII intact bilaterally Lab / Micro Data Result Diagrams: 08/23/20 09:24 08/23/20 09:24 Labs: Laboratory Results - last 24 hr 08/22/20 08/22/20 08/22/20 13:10 15:05 18:05 WBC RBC Hgb 7.8 L Hct 23.8 L MCV MCH MCHC RDW Std Deviation RDW Coeff of Rajendra Plt Count MPV Immature Gran % (Auto) Neut % (Auto) Lymph % (Auto) Elbert % (Auto) Eos % (Auto) Baso % (Auto) Absolute Neuts (auto) Absolute Lymphs (auto) Nucleated RBC % Sodium Potassium Chloride Carbon Dioxide Anion Gap BUN Creatinine Estim Creat Clear Calc Est GFR (MDRD) Af Amer Est GFR (MDRD) Non-Af BUN/Creatinine Ratio Glucose Calcium S.aureus Protein A PCR MRSA (PCR) POC Glucose 434 H 243 H 08/22/20 08/23/20 08/23/20 22:47 06:27 07:00 WBC RBC Hgb Hct MCV MCH MCHC RDW Std Deviation RDW Coeff of Rajendra Plt Count MPV Immature Gran % (Auto) Neut % (Auto) Lymph % (Auto) Elbert % (Auto) Eos % (Auto) Baso % (Auto) Absolute Neuts (auto) Absolute Lymphs (auto) Nucleated RBC % Sodium Potassium Chloride Carbon Dioxide Anion Gap BUN Creatinine Estim Creat Clear Calc Est GFR (MDRD) Af Amer Est GFR (MDRD) Non-Af BUN/Creatinine Ratio Glucose Calcium S.aureus Protein A PCR NEGATIVE MRSA (PCR) Negative POC Glucose 180 H 163 H 08/23/20 08/23/20 08/23/20 09:24 09:24 11:05 WBC 10.3 RBC 2.88 L Hgb 7.8 L Hct 23.8 L MCV 82.6 MCH 27.1 MCHC 32.8 RDW Std Deviation 41.2 RDW Coeff of Rajendra 13.7 Plt Count 258 MPV 10.6 Immature Gran % (Auto) 1.600 H Neut % (Auto) 76.0 H Lymph % (Auto) 9.4 L Elbert % (Auto) 10.3 H Eos % (Auto) 2.1 Baso % (Auto) 0.6 Absolute Neuts (auto) 7.8 H Absolute Lymphs (auto) 0.97 Nucleated RBC % 0 Sodium 140 Potassium 3.8 Chloride 108 H Carbon Dioxide 26.0 Anion Gap 6 BUN 57 H Creatinine 2.41 H Estim Creat Clear Calc 38.19 Est GFR (MDRD) Af Amer 37 L Est GFR (MDRD) Non-Af 30 L BUN/Creatinine Ratio 23.7 H Glucose 185 H Calcium 8.6 S.aureus Protein A PCR MRSA (PCR) POC Glucose 177 H Micro: Microbiology 08/22/20 10:00 Gram Stain - Final Bone - Toe Wound Culture - Preliminary Gram negative maribel Beta hemolytic organism 08/22/20 10:00 Gram Stain - Final Bone - Toe Wound Culture - Preliminary No growth-Final to follow Radiology Impression Foot X-Ray 08/23/20 07:45 IMPRESSION: 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 Normal postoperative soft tissue swelling and subcutaneous emphysema. Bones of the foot otherwise unchanged from the preop study of 08/22/2020 Electronically Signed: Medhat Shine MD at 8:59 EDT , Service support ,
[2020-08-23 16:50] LABS: Bedside Glucose 205 mg/dL (70-110)
--- NOTE | 2020-08-23 19:24 | PN.HOSP_ITS ---
Subjective Subjective Patient was seen and examined today, he does not complain of any pain in his right foot, his cultures resulted as positive for gram-negative maribel and beta- hemolytic organism. Infectious disease saw the patient today and recommended continuing present antibiotics. Objective Data Objective Data Vital Signs: Vital Signs Temp Pulse Resp BP Pulse Ox 98.5 F 84 18 142/70 H 95 08/23/20 13:55 08/23/20 13:55 08/23/20 13:55 08/23/20 13:55 08/23/20 13:55 Oxygen Delivery Method Room Air Weight: 136.7 kg Body Mass Index (BMI) 42.0 Intake & Output: Intake and Output for Last 24 Hours 08/21/20 08/22/20 08/23/20 23:59 23:59 23:59 Intake Total 2360 / 2360 2365 / 2365 Output Total 3200 / 3525 2700 / 2700 Balance -840 / -1165 -335 / -335 Lab / Micro Data Result Diagrams: 08/23/20 09:24 08/23/20 09:24 Labs: Laboratory Results - last 24 hr 08/22/20 08/23/20 08/23/20 22:47 06:27 07:00 WBC RBC Hgb Hct MCV MCH MCHC RDW Std Deviation RDW Coeff of Rajendra Plt Count MPV Immature Gran % (Auto) Neut % (Auto) Lymph % (Auto) [place] % (Auto) Eos % (Auto) Baso % (Auto) Absolute Neuts (auto) Absolute Lymphs (auto) Nucleated RBC % Sodium Potassium Chloride Carbon Dioxide Anion Gap BUN Creatinine Estim Creat Clear Calc Est GFR (MDRD) Af Amer Est GFR (MDRD) Non-Af BUN/Creatinine Ratio Glucose Calcium S.aureus Protein A PCR NEGATIVE MRSA (PCR) Negative POC Glucose 180 H 163 H 08/23/20 08/23/20 08/23/20 09:24 09:24 11:05 WBC 10.3 RBC 2.88 L Hgb 7.8 L Hct 23.8 L MCV 82.6 MCH 27.1 MCHC 32.8 RDW Std Deviation 41.2 RDW Coeff of Rajendra 13.7 Plt Count 258 MPV 10.6 Immature Gran % (Auto) 1.600 H Neut % (Auto) 76.0 H Lymph % (Auto) 9.4 L [place] % (Auto) 10.3 H Eos % (Auto) 2.1 Baso % (Auto) 0.6 Absolute Neuts (auto) 7.8 H Absolute Lymphs (auto) 0.97 Nucleated RBC % 0 Sodium 140 Potassium 3.8 Chloride 108 H Carbon Dioxide 26.0 Anion Gap 6 BUN 57 H Creatinine 2.41 H Estim Creat Clear Calc 38.19 Est GFR (MDRD) Af Amer 37 L Est GFR (MDRD) Non-Af 30 L BUN/Creatinine Ratio 23.7 H Glucose 185 H Calcium 8.6 S.aureus Protein A PCR MRSA (PCR) POC Glucose 177 H 08/23/20 16:36 WBC RBC Hgb Hct MCV MCH MCHC RDW Std Deviation RDW Coeff of Rajendra Plt Count MPV Immature Gran % (Auto) Neut % (Auto) Lymph % (Auto) [place] % (Auto) Eos % (Auto) Baso % (Auto) Absolute Neuts (auto) Absolute Lymphs (auto) Nucleated RBC % Sodium Potassium Chloride Carbon Dioxide Anion Gap BUN Creatinine Estim Creat Clear Calc Est GFR (MDRD) Af Amer Est GFR (MDRD) Non-Af BUN/Creatinine Ratio Glucose Calcium S.aureus Protein A PCR MRSA (PCR) POC Glucose 205 H Micro: Microbiology 08/22/20 10:00 Bone - Toe Gram Stain - Final 08/22/20 10:00 Bone - Toe Wound Culture - Preliminary Gram negative maribel Beta hemolytic organism 08/22/20 10:00 Bone - Toe Gram Stain - Final 08/22/20 10:00 Bone - Toe Wound Culture - Preliminary No growth-Final to follow 08/22/20 08:00 Interface Orders SARS-CoV-2 Antigen (Rapid) - Final Radiography Diagnostic Testing: Radiology Impression Foot X-Ray 08/23/20 07:45 IMPRESSION: 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 Normal postoperative soft tissue swelling and subcutaneous emphysema. Bones of the foot otherwise unchanged from the preop study of 08/22/2020 Electronically Signed: Medhat Shine MD at 8:59 EDT , Service support , Physical Exam Narrative Alert and oriented x3 Nontraumatic; normocephalic Lung clear to auscultate Heart sounds S1-S2. No murmur, gallop or rubs. Abdomen bowel sounds present soft, nontender nondistended Extremity: Left foot no swelling. Right foot and right leg with pitting edema; right great toe with opening and wound at the dorsal side; serosanguineous drainage present Const alert, oriented x3 and no apparent distress HEENT head/scalp atraumatic and moist oral mucous membranes Head and Scalp: normocephalic Eyes PERRL, EOMs intact bilaterally and conjunctivae normal Neck no lymphadenopathy, supple and no JVD Resp normal respiratory effort, no retractions, no use of accessory muscles and clear to auscultation bilaterally Cardio regular rate, regular rhythm, S1 normal heart sound, S2 normal heart sound, no rub, no gallops and no clicks GI normal to inspection, nondistended, normoactive bowel sounds, soft to palpation, non-tender and non-distended GI Narrative: Patient is obese Extremity Extremity Narrative: There is a surgical dressing over the patient's right lower leg and foot and ankle area, this was not removed for examination Neuro oriented x3 and CN's II-XII intact bilaterally Sensorium / Orientation: awake and alert Psych affect normal Assessment & Plan Assessment/Plan (1) Necrotizing cellulitis: (2) Uncontrolled diabetes mellitus: QUALIFIERS: Diabetes mellitus type: other specified (including IZABELA) Glycemic state: with hyperglycemia Qualified Code(s): E13.65 - Other specified diabetes mellitus with hyperglycemia (3) Chronic kidney disease: QUALIFIERS: Chronic kidney disease stage: stage 3 (moderate) Chronic kidney disease stage 3 subtype: stage 3b (GFR 30-44) Qualified Code(s): N18.32 - Chronic kidney disease, stage 3b (4) History of coronary artery stent placement: (5) Chronic diastolic (congestive) heart failure: (6) Essential (primary) hypertension: PLAN: 1. Necrotizing cellulitis of the right foot with gram-negative bacteria and beta-hemolytic organism-status post amputation of the right great toe postop day #1 with debridement of devitalized tissue-patient will remain on current antibiotic coverage per infectious diseases #2 uncontrolled type 2 diabetes #3 coronary artery disease #4 essential hypertension #5 chronic kidney disease stage IIIb #6 anemia of chronic renal disease Visit Charges Inpatient E&M: 76347 Subs Hosp L2
[2020-08-23] MEDS: Atorvastatin Calcium 80 MG Tablet PO (20:44)
[2020-08-23 21:01] LABS: Bedside Glucose 250 mg/dL (70-110)
[2020-08-24 01:42] VITALS: BP 164/83; PULSE 91; RESP 16; TEMP 37.3; O2SAT 94
[2020-08-24 01:46] LABS: Vancomycin, Trough Level 11.4 ug/mL (5.0-15.0)
--- NOTE | 2020-08-24 02:28 | PCM.RX.CS ---
Consult Pharmacy has been consulted to manage selected antiobiotic: Vancomycin Type of Consult: Follow-up Suspected Infection: Skin/Soft tissue Prior Doses of Antibiotics Received/Current Regimen: Medications Vancomycin HCl 1,750 mg/ (Sodium Chloride) 535 mls @ 250 mls/hr IV Q24H PAMELA Vancomycin HCl 1,250 mg/ (Sodium Chloride) 275 mls @ 167 mls/hr IV Q24H PAMELA Stop: 08/24/20 03:30 Last Admin: 08/24/20 01:41 Dose: 167 mls/hr Labs: Sodium 140 mmol/L (136-145) 08/23/20 09:24 Potassium 3.8 mmol/L (3.5-5.1) 08/23/20 09:24 Chloride 108 mmol/L (98-107) H 08/23/20 09:24 Carbon Dioxide 26.0 mmol/L (21.0-32.0) 08/23/20 09:24 Anion Gap 6 (5-15) 08/23/20 09:24 BUN 57 mg/dL (7-18) H 08/23/20 09:24 Creatinine 2.41 mg/dL (0.70-1.30) H 08/23/20 09:24 Est GFR (MDRD) Af Amer 37 mL/min (>60) L 08/23/20 09:24 Est GFR (MDRD) Non-Af 30 mL/min (>60) L 08/23/20 09:24 BUN/Creatinine Ratio 23.7 RATIO (10-20) H 08/23/20 09:24 Glucose 185 mg/dL (74-106) H 08/23/20 09:24 Vancomycin Trough 11.4 ug/mL (5.0-15.0) 08/24/20 01:05 Microbiology: Microbiology 08/22/20 10:00 Bone - Toe Gram Stain - Final 08/22/20 10:00 Bone - Toe Wound Culture - Preliminary Gram negative maribel Beta hemolytic organism 08/22/20 10:00 Bone - Toe Gram Stain - Final 08/22/20 10:00 Bone - Toe Wound Culture - Preliminary No growth-Final to follow 08/22/20 08:00 Interface Orders SARS-CoV-2 Antigen (Rapid) - Final Weight used for dosin.7 kg Estimated Creatinine Clearance: 38 Goal Trough: 15-20 mcg/mL Pharmacy Plan for Drug Dosing: Vancomycin trough level of 11.4 was below target range of 15-20. Will increase dose to 1750mg q24h and re-draw trough prior to 3rd dose of new regimen. Pharmacy Service will continue to monitor and adjust dosing as required. Follow-Up Labs: Trough Vancomycin Labs to be done on [date and time ordered]: 08/27/20 @0107
[2020-08-24] MEDS: Insulin Lispro 100 UNIT/ML INSULN.PEN SC ×4 (06:11→22:09)
--- NOTE | 2020-08-24 06:14 | PCM.PROGNOTE ---
Subjective Subjective This 50-year-old male (uncontrolled diabetes, anemia, and kidney disease) was seen bedside status post right foot hallux amputation performed two days ago. He denies fever, chill, nausea, vomiting, foot or calf pain. He relates he wants to go home today. Objective Data Objective Data Vital Signs: Vital Signs Temp Pulse Resp BP Pulse Ox 99.1 F 91 16 164/83 H 94 08/24/20 01:42 08/24/20 01:42 08/24/20 01:42 08/24/20 01:42 08/24/20 01:42 Oxygen Delivery Method Room Air Weight: 136.7 kg Body Mass Index (BMI) 42.0 Intake & Output: Intake and Output for Last 24 Hours 08/22/20 08/23/20 08/24/20 23:59 23:59 23:59 Intake Total 2360 / 2360 2365 / 2365 775 / 775 Output Total 3200 / 3525 2700 / 2700 1030 / 1030 Balance -840 / -1165 -335 / -335 -255 / -255 Lab / Micro Data Result Diagrams: 08/23/20 09:24 08/23/20 09:24 Labs: Laboratory Results - last 24 hr 08/23/20 08/23/20 08/23/20 06:27 07:00 09:24 WBC 10.3 RBC 2.88 L Hgb 7.8 L Hct 23.8 L MCV 82.6 MCH 27.1 MCHC 32.8 RDW Std Deviation 41.2 RDW Coeff of Rajendra 13.7 Plt Count 258 MPV 10.6 Immature Gran % (Auto) 1.600 H Neut % (Auto) 76.0 H Lymph % (Auto) 9.4 L Mcdowell % (Auto) 10.3 H Eos % (Auto) 2.1 Baso % (Auto) 0.6 Absolute Neuts (auto) 7.8 H Absolute Lymphs (auto) 0.97 Nucleated RBC % 0 Sodium Potassium Chloride Carbon Dioxide Anion Gap BUN Creatinine Estim Creat Clear Calc Est GFR (MDRD) Af Amer Est GFR (MDRD) Non-Af BUN/Creatinine Ratio Glucose Calcium Vancomycin Trough S.aureus Protein A PCR NEGATIVE MRSA (PCR) Negative POC Glucose 163 H 08/23/20 08/23/20 08/23/20 09:24 11:05 16:36 WBC RBC Hgb Hct MCV MCH MCHC RDW Std Deviation RDW Coeff of Rajendra Plt Count MPV Immature Gran % (Auto) Neut % (Auto) Lymph % (Auto) Mcdowell % (Auto) Eos % (Auto) Baso % (Auto) Absolute Neuts (auto) Absolute Lymphs (auto) Nucleated RBC % Sodium 140 Potassium 3.8 Chloride 108 H Carbon Dioxide 26.0 Anion Gap 6 BUN 57 H Creatinine 2.41 H Estim Creat Clear Calc 38.19 Est GFR (MDRD) Af Amer 37 L Est GFR (MDRD) Non-Af 30 L BUN/Creatinine Ratio 23.7 H Glucose 185 H Calcium 8.6 Vancomycin Trough S.aureus Protein A PCR MRSA (PCR) POC Glucose 177 H 205 H 08/23/20 08/24/20 20:47 01:05 WBC RBC Hgb Hct MCV MCH MCHC RDW Std Deviation RDW Coeff of Rajendra Plt Count MPV Immature Gran % (Auto) Neut % (Auto) Lymph % (Auto) Mcdowell % (Auto) Eos % (Auto) Baso % (Auto) Absolute Neuts (auto) Absolute Lymphs (auto) Nucleated RBC % Sodium Potassium Chloride Carbon Dioxide Anion Gap BUN Creatinine Estim Creat Clear Calc Est GFR (MDRD) Af Amer Est GFR (MDRD) Non-Af BUN/Creatinine Ratio Glucose Calcium Vancomycin Trough 11.4 S.aureus Protein A PCR MRSA (PCR) POC Glucose 250 H Micro: Microbiology 08/22/20 10:00 Bone - Toe Gram Stain - Final 08/22/20 10:00 Bone - Toe Wound Culture - Preliminary Gram negative maribel Beta hemolytic organism 08/22/20 10:00 Bone - Toe Gram Stain - Final 08/22/20 10:00 Bone - Toe Wound Culture - Preliminary No growth-Final to follow 08/22/20 08:00 Interface Orders SARS-CoV-2 Antigen (Rapid) - Final Radiography Diagnostic Testing: Radiology Impression Extremity Arterial Study 08/22/20 14:02 Interpretation Summary Triphasic Doppler waveforms are noted at ankle level bilaterally. Pulse-volume recording waveform amplitudes are diminished at digital level on the right, but satisfactory at all other levels bilaterally. Resting ankle-brachial indices are normal bilaterally. The right digital-brachial index was not determined. The left digital-brachial index is normal. There is no evidence of significant arterial occlusive disease in the lower extremities bilaterally. However, arterial flow at digital level on the right was not fully assessed. Ordering Physician: Jimy Rahman Referring Physician: Joseph Ricks Performed By: Taylor Nur RVT Venous Doppler Study 08/22/20 14:03 Interpretation Summary Deep veins of the lower extremities are bilaterally patent and compressible segmentally. There is no evidence of deep vein thrombosis on either side. Valvular competence appears intact within the proximal deep venous systems bilaterally. The great saphenous veins appear bilaterally patent and compressible segmentally. Ordering Physician: Jimy Rahman Referring Physician: Joseph Ricks Performed By: Taylor Nur RVT Foot X-Ray 08/23/20 07:45 IMPRESSION: 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 Normal postoperative soft tissue swelling and subcutaneous emphysema. Bones of the foot otherwise unchanged from the preop study of 08/22/2020 Electronically Signed: Medhat Shine MD at 8:59 EDT , Service support , Physical Exam Const alert, oriented x3 and no apparent distress General Appearance: cooperative HEENT normocephalic Extremity normal capillary refill Extremity Narrative: Pedal pulses are palpable to the foot bilateral. No evidence of charcot neuroarthropathy to the foot or ankle bilateral. General Extremity: edema Skin Skin Narrative: no purulence, no erythema, no streaking, no odor. Adjacent skin is atrophic. Open amputation first ray resection with hematogenous drainage noted (decreased and stable) and exposed white non-discolored bone. Adjacent skin and soft tissue is not necrotic. Plantar lateral foot ulcer is granular and subhemorrhagic without deep tissue exposed or necrosis Neuro Neuro Narrative: lack of normal epicritic sensation via light touch consistent with neuropathy Assessment & Plan Assessment/Plan (1) Necrotizing cellulitis: (2) Uncontrolled diabetes mellitus: QUALIFIERS: Diabetes mellitus type: other specified (including IZABELA) Glycemic state: with hyperglycemia Qualified Code(s): E13.65 - Other specified diabetes mellitus with hyperglycemia (3) Chronic kidney disease: QUALIFIERS: Chronic kidney disease stage: stage 3 (moderate) Chronic kidney disease stage 3 subtype: stage 3b (GFR 30-44) Qualified Code(s): N18.32 - Chronic kidney disease, stage 3b PLAN: I reviewed and discussed his case including his diagnostic data. His vitals are stable. Open first ray resection performed 2 days ago. White blood cell count was 10.3 yesterday and morning labs are pending today. His foot appears stable I recommend proceeding forward with a wound VAC. This was ordered for 150 mmHg continuous; the plan of the changes 3 times a week. This will be applied later today. Postoperative 3 views of right foot x-rays demonstrate resection of hallux and part of the first metatarsal head and sesamoid apparatus. There is no remaining foreign body, soft tissue emphysema, osseous destruction, fracture or dislocation. He is on emperic IV vancomycin and Zosyn at this time. Intraoperative cultures from resected tissue include beta-hemolytic organism and gram-negative maribel. The first metatarsal head clearance fragment does not demonstrate bacterial growth upon microbiology evaluation. The first metatarsal head clearance fragment sent to pathology is still pending. His wound MRSA PCR was negative. Blood cultures are also still pending. Infectious disease consult is appreciated. To continue with Leonides wraps and elevation to control lower extremity edema. Venous Dopplers ordered. He does not have a deep venous thrombosis his deep vein system appears patent without reflux evidence. Noninvasive arterial studies were also completed and he appears to have normal perfusion with triphasic waveforms and normal bilateral ABIs. It is noted he has some noncompressible vessels on the left lower extremity and this is not noted on the right lower extremity. To maintain a nonweightbearing status to the right lower extremity. Medical management and DVT prophylaxis per hospitalist team is appreciated. A1C noted at 11.1 % is not indicative for good prognosis. Please not hesitate to call if you have any questions. Discharge planning: Likely he will be discharged home pending home health arrangement for wound VAC and antibiotics. To follow-up with Dr. Rahman at time of discharge. Kelsea Buchanan DPM, [facility] [phone]
[2020-08-24 06:15] LABS: Bedside Glucose 193 mg/dL (70-110)
[2020-08-24 07:40] VITALS: BP 152/70; PULSE 91; RESP 18; TEMP 36.8; O2SAT 98
[2020-08-24] MEDS: Aspirin 81 MG TAB.CHEW PO (07:47)
[2020-08-24] MEDS: Glimepiride 2 MG Tablet PO (07:47)
[2020-08-24 07:48] VITALS: BP 152/70; PULSE 91
[2020-08-24] MEDS: Isosorbide Mononitrate 60 MG Tablet PO (07:48)
[2020-08-24] MEDS: Juven (unflavored) Packet 1 PACKET PO ×2 (07:48→17:16)
[2020-08-24] MEDS: Magnesium Chloride 64 MG Delay Rel.Tablet 128 MG PO (07:48)
[2020-08-24] MEDS: hydrALAZINE 25 MG Tablet 75 MG PO ×2 (07:48→22:03)
[2020-08-24] MEDS: Losartan Potassium 25 MG Tablet PO (07:48)
[2020-08-24] MEDS: amLODIPine 5 MG Tablet PO (07:49)
[2020-08-24] MEDS: 0.9% Saline Lock 10 ML Syringe IV (10:58)
[2020-08-24] MEDS: Bisacodyl 5 MG Tablet 10 MG PO (11:51)
[2020-08-24 12:25] LABS: Bedside Glucose 287 mg/dL (70-110)
[2020-08-24 14:00] VITALS: BP 149/66; PULSE 84; RESP 18; TEMP 36.4; O2SAT 99
--- NOTE | 2020-08-24 14:44 | NURSING ---
RNCM Palliative Screen Note [facility] Palliative screen completed d/t Lace 3. Did not meet palliative care referral criteria. Raheem Bergeron RNCM
--- NOTE | 2020-08-24 15:22 | PN.HOSP_ITS ---
Subjective Subjective Patient was seen and examined today, he had questions about whether he could be discharged home, I told him that he may need home antibiotics and that he is not ready to be discharge yet. I talked with infectious diseases concerning his care today, they recommended that a PICC line be inserted for IV antibiotic use at discharge. Objective Data Objective Data Vital Signs: Vital Signs Temp Pulse Resp BP Pulse Ox 98.3 F 91 18 152/70 H 98 08/24/20 07:40 08/24/20 07:48 08/24/20 07:40 08/24/20 07:48 08/24/20 07:40 Oxygen Delivery Method Room Air Weight: 136.7 kg Body Mass Index (BMI) 42.0 Intake & Output: Intake and Output for Last 24 Hours 08/22/20 08/23/20 08/24/20 23:59 23:59 23:59 Intake Total 2360 / 2360 2365 / 2365 775 / 775 Output Total 3200 / 3525 2700 / 2700 1030 / 1030 Balance -840 / -1165 -335 / -335 -255 / -255 Lab / Micro Data Result Diagrams: 08/23/20 09:24 08/23/20 09:24 Labs: Laboratory Results - last 24 hr 08/23/20 08/23/20 08/24/20 16:36 20:47 01:05 Vancomycin Trough 11.4 POC Glucose 205 H 250 H 08/24/20 08/24/20 06:10 11:49 Vancomycin Trough POC Glucose 193 H 287 H Micro: Microbiology 08/22/20 01:05 Blood Culture (Wb) - Anticubital Right Blood Culture - Preliminary No growth in 48 hours. 08/21/20 23:55 Blood Culture (Wb) - Anticubital Left Blood Culture - Preliminary No growth in 48 hours. 08/22/20 10:00 Bone - Toe Gram Stain - Final 08/22/20 10:00 Bone - Toe Wound Culture - Preliminary Citrobacter koseri Gram negative maribel Gram positive organism 08/22/20 10:00 Bone - Toe Anaerobic Culture - Preliminary 08/22/20 10:00 Bone - Toe Gram Stain - Final 08/22/20 10:00 Bone - Toe Wound Culture - Preliminary Gram negative maribel 08/22/20 10:00 Bone - Toe Anaerobic Culture - Preliminary Checking for anaerobes, further studies to follow. 08/22/20 08:00 Interface Orders SARS-CoV-2 Antigen (Rapid) - Final Radiography Diagnostic Testing: Radiology Impression Extremity Arterial Study 08/22/20 14:02 Interpretation Summary Triphasic Doppler waveforms are noted at ankle level bilaterally. Pulse-volume recording waveform amplitudes are diminished at digital level on the right, but satisfactory at all other levels bilaterally. Resting ankle-brachial indices are normal bilaterally. The right digital-brachial index was not determined. The left digital-brachial index is normal. There is no evidence of significant arterial occlusive disease in the lower extremities bilaterally. However, arterial flow at digital level on the right was not fully assessed. Ordering Physician: Jimy Rahman Referring Physician: Joseph Ricks Performed By: Taylor Nur RVT Venous Doppler Study 08/22/20 14:03 Interpretation Summary Deep veins of the lower extremities are bilaterally patent and compressible segmentally. There is no evidence of deep vein thrombosis on either side. Valvular competence appears intact within the proximal deep venous systems bilaterally. The great saphenous veins appear bilaterally patent and compressible segmentally. Ordering Physician: Jimy Rahman Referring Physician: Joseph Ricks Performed By: Taylor Nur RVT Physical Exam Narrative [facility] [id number] [place] [address] Progress Note - Yjyimloirkq85/17/21 192#: [id number]:[id number]:HUNGYOSEPH Mary BonillaRep #:[id number]: 1970 50From: Giuseppe Oliver DOPCP:Dr. Joseph Ricks MD Status:ADM INLocation: [id number] Subjective Subjective Patient was seen and examined today, he does not complain of any pain in his right foot, his cultures resulted as positive for gram-negative maribel and beta- hemolytic organism. Infectious disease saw the patient today and recommended continuing present antibiotics. Objective Data Objective Data Vital Signs: Vital Signs Temp Pulse Resp BP Pulse Ox 98.5 F 84 18 142/70 H 95 08/23/20 13:55 08/23/20 13:55 08/23/20 13:55 08/23/20 13:55 08/23/20 13:55 Oxygen Delivery Method Room Air Weight: 136.7 kg Body Mass Index (BMI) 42.0 Intake & Output:Intake and Output for Last 24 Hours 08/21/20 08/22/20 08/23/20 23:59 23:59 23:59 Intake Total 2360 / 2360 2365 / 2365 Output Total 3200 / 3525 2700 / 2700 Balance -840 / -1165 -335 / -335 Lab / Micro Data Result Diagrams: 08/23/20 09:24 document embedded image 08/23/20 09:24 document embedded image Labs:Laboratory Results - last 24 hr 08/22/20 08/23/20 08/23/20 22:47 06:27 07:00 WBC RBC Hgb Hct MCV MCH MCHC RDW Std Deviation RDW Coeff of Rajendra Plt Count MPV Immature Gran % (Auto) Neut % (Auto) Lymph % (Auto) Noble % (Auto) Eos % (Auto) Baso % (Auto) Absolute Neuts (auto) Absolute Lymphs (auto) Nucleated RBC % Sodium Potassium Chloride Carbon Dioxide Anion Gap BUN Creatinine Estim Creat Clear Calc Est GFR (MDRD) Af Amer Est GFR (MDRD) Non-Af BUN/Creatinine Ratio Glucose Calcium S.aureus Protein A PCR NEGATIVE MRSA (PCR) Negative POC Glucose 180 H 163 H 08/23/20 08/23/20 08/23/20 09:24 09:24 11:05 WBC 10.3 RBC 2.88 L Hgb 7.8 L Hct 23.8 L MCV 82.6 MCH 27.1 MCHC 32.8 RDW Std Deviation 41.2 RDW Coeff of Rajendra 13.7 Plt Count 258 MPV 10.6 Immature Gran % (Auto) 1.600 H Neut % (Auto) 76.0 H Lymph % (Auto) 9.4 L Noble % (Auto) 10.3 H Eos % (Auto) 2.1 Baso % (Auto) 0.6 Absolute Neuts (auto) 7.8 H Absolute Lymphs (auto) 0.97 Nucleated RBC % 0 Sodium 140 Potassium 3.8 Chloride 108 H Carbon Dioxide 26.0 Anion Gap 6 BUN 57 H Creatinine 2.41 H Estim Creat Clear Calc 38.19 Est GFR (MDRD) Af Amer 37 L Est GFR (MDRD) Non-Af 30 L BUN/Creatinine Ratio 23.7 H Glucose 185 H Calcium 8.6 S.aureus Protein A PCR MRSA (PCR) POC Glucose 177 H 08/23/20 16:36 WBC RBC Hgb Hct MCV MCH MCHC RDW Std Deviation RDW Coeff of Rajendra Plt Count MPV Immature Gran % (Auto) Neut % (Auto) Lymph % (Auto) Noble % (Auto) Eos % (Auto) Baso % (Auto) Absolute Neuts (auto) Absolute Lymphs (auto) Nucleated RBC % Sodium Potassium Chloride Carbon Dioxide Anion Gap BUN Creatinine Estim Creat Clear Calc Est GFR (MDRD) Af Amer Est GFR (MDRD) Non-Af BUN/Creatinine Ratio Glucose Calcium S.aureus Protein A PCR MRSA (PCR) POC Glucose 205 H Micro:Microbiology 08/22/20 10:00 Bone - Toe Gram Stain - Final 08/22/20 10:00 Bone - Toe Wound Culture - Preliminary Gram negative maribel Beta hemolytic organism 08/22/20 10:00 Bone - Toe Gram Stain - Final 08/22/20 10:00 Bone - Toe Wound Culture - Preliminary No growth-Final to follow 08/22/20 08:00 Interface Orders SARS-CoV-2 Antigen (Rapid) - Final Radiography Diagnostic Testing:Radiology Impression Foot X-Ray 08/23/20 07:45 IMPRESSION: 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 Normal postoperative soft tissue swelling and subcutaneous emphysema. Bones of the foot otherwise unchanged from the preop study of 08/22/2020 Electronically Signed: Medhat Shine MD at 8:59 EDT , Service support , Const alert, oriented x3 and no apparent distress HEENT head/scalp atraumatic and moist oral mucous membranes Head and Scalp: normocephalic Eyes PERRL, EOMs intact bilaterally and conjunctivae normal Neck no lymphadenopathy, supple and no JVD Resp normal respiratory effort, no retractions, no use of accessory muscles and clear to auscultation bilaterally Cardio regular rate, regular rhythm, S1 normal heart sound, S2 normal heart sound, no rub, no gallops and no clicks GI normal to inspection, nondistended, normoactive bowel sounds, soft to palpation, non-tender and non-distended GI Narrative: Patient is obese Extremity Extremity Narrative: There is a surgical dressing over the patient's right lower leg and foot and ankle area, this was not removed for examination Neuro oriented x3 and CN's II-XII intact bilaterally Sensorium / Orientation: awake and alert Psych affect normal Const alert, oriented x3 and no apparent distress HEENT head/scalp atraumatic and moist oral mucous membranes Eyes PERRL, EOMs intact bilaterally and conjunctivae normal Neck no lymphadenopathy, supple and no JVD Resp normal respiratory effort, no retractions, no use of accessory muscles and clear to auscultation bilaterally Cardio regular rate, regular rhythm, S1 normal heart sound, S2 normal heart sound, no rub, no gallops and no clicks GI normal to inspection, nondistended, normoactive bowel sounds, soft to palpation, non-tender and non-distended GI Narrative: Patient is obese Extremity Extremity Narrative: There is a surgical dressing over the patient's right lower leg and foot and ankle area, this was not removed for examination Neuro oriented x3 and CN's II-XII intact bilaterally Sensorium / Orientation: awake and alert Psych affect normal Assessment & Plan Assessment/Plan (1) Necrotizing cellulitis: (2) Uncontrolled diabetes mellitus: QUALIFIERS: Diabetes mellitus type: other specified (including MOD Y) Glycemic state: with hyperglycemia Qualified Code(s): E13.65 - Other specified diabetes mellitus with hyperglycemia (3) Chronic kidney disease: QUALIFIERS: Chronic kidney disease stage: stage 3 (moderate) Chronic kidney disease stage 3 subtype: stage 3b (GFR 30-44) Qualified Code(s): N18.32 - Chronic kidney disease, stage 3b (4) History of coronary artery stent placement: (5) Chronic diastolic (congestive) heart failure: (6) Essential (primary) hypertension: PLAN: 1. Necrotizing cellulitis of the right foot with gram-negative bacteria and beta-hemolytic organism-status post amputation of the right great toe postop day #2 with debridement of devitalized tissue-patient will remain on current antibiotic coverage per infectious diseases, he will need outpatient antibiotic treatment via PICC line, sensitivities and final culture results are pending #2 uncontrolled type 2 diabetes #3 coronary artery disease #4 essential hypertension #5 chronic kidney disease stage IIIb #6 anemia of chronic renal disease Visit Charges Inpatient E&M: 69827 Subs Hosp L2
--- NOTE | 2020-08-24 16:25 | RAD_ITS ---
[employer]Scriptor Unformatted Report Format: Options: n 2f 2i act cap dr albarado wm wcta sl lj Gender: Male : 1970 Exam: XR Chest 1 View Comparison: 05/12/2020 History: PICC LINE VERIFICATION Contrast: Right-sided PICC line is in place with the distal tip overlying the superior vena cava. Impression. No acute pulmonary abnormality. Impression. Right PICC line in good position. at 1648 Reported and signed by: Enrique Johnson MD Electronically Signed: Enrique Johnson MD at 16:47 EDT Tel , Service support , RAD/CXR for Line Placement
[2020-08-24 17:11] LABS: Bedside Glucose 235 mg/dL (70-110)
[2020-08-24 22:03] VITALS: PULSE 90
[2020-08-24] MEDS: Atorvastatin Calcium 80 MG Tablet PO (22:03)
[2020-08-24 22:05] VITALS: BP 169/60; PULSE 88; RESP 18; TEMP 37.3; O2SAT 96
[2020-08-24 22:21] LABS: Bedside Glucose 235 mg/dL (70-110)
[2020-08-25] VITALS (7 sets, daily range): BP systolic 153–168; BP diastolic 70–85; PULSE 77–90; RESP 18; TEMP 36.4–37.4; O2SAT 96–98
[2020-08-25] MEDS: 0.9% Saline Lock 10 ML Syringe IV (01:10)
[2020-08-25 06:26] LABS: Absolute Lymphocyte Count 1.27 X10^3/uL (0.83-4.51); Absolute Neutrophil Count 7.7 X10^3/uL (2.0-7.7); Basophil# 0.07 X10^3/uL; Basophil% 0.6 % (0-1); Eosinophil# 0.36 X10^3/uL; Eosinophils% 3.3 % (0-5); Hematocrit 24.7 % (40-54); Hemoglobin 7.9 g/dL (13.0-16.5); Lymphocyte # 1.27 X10^3/ul (0.83-4.51); Lymphocyte % 11.7 % (19-41); Mean Corpuscular Hgb 26.6 pg (27.0-32.0); Mean Corpuscular Volume 83.2 fL (80-94); Mean Platelet Vol. 10.4 fl (6.2-12.0); Monocyte% 9.2 % (0-10); NRBC Flagged by Analyzer 0 % (0-5); Neutrophil # 7.66 X10^3/uL (2.7-7.7); Neutrophil % 70.7 % (47-70); Platelet Count 327 K/mm3 (150-450); Red Blood Count 2.97 M/mm3 (4.6-6.2); White Blood Count 10.9 K/mm3 (4.4-11.0)
--- NOTE | 2020-08-25 06:37 | PCM.PROGNOTE ---
Subjective Subjective This 50-year-old male (uncontrolled diabetes, anemia, and kidney disease) was seen bedside status post right foot hallux amputation performed three days ago. He denies fever, chill, nausea, vomiting, foot or calf pain. He relates he wants to go home today. He had a wound VAC and a PICC line placed yesterday. Objective Data Objective Data Vital Signs: Vital Signs Temp Pulse Resp BP Pulse Ox 99.3 F H 90 18 162/70 H 96 08/25/20 01:13 08/25/20 01:13 08/25/20 01:13 08/25/20 01:13 08/25/20 01:13 Oxygen Delivery Method Room Air Weight: 136.7 kg Body Mass Index (BMI) 42.0 Intake & Output: Intake and Output for Last 24 Hours 08/23/20 08/24/20 08/25/20 23:59 23:59 23:59 Intake Total 2365 / 2365 2465 / 2465 835 / 835 Output Total 2700 / 2700 2355 / 2355 400 / 400 Balance -335 / -335 110 / 110 435 / 435 Lab / Micro Data Result Diagrams: 08/25/20 06:00 08/23/20 09:24 Labs: Laboratory Results - last 24 hr 08/24/20 08/24/20 08/24/20 11:49 17:00 22:08 WBC RBC Hgb Hct MCV MCH MCHC RDW Std Deviation RDW Coeff of Rajendra Plt Count MPV Immature Gran % (Auto) Neut % (Auto) Lymph % (Auto) [place] % (Auto) Eos % (Auto) Baso % (Auto) Absolute Neuts (auto) Absolute Lymphs (auto) Nucleated RBC % POC Glucose 287 H 235 H 235 H 08/25/20 06:00 WBC 10.9 RBC 2.97 L Hgb 7.9 L Hct 24.7 L MCV 83.2 MCH 26.6 L MCHC 32.0 RDW Std Deviation 42.0 RDW Coeff of Rajendra 14.0 Plt Count 327 MPV 10.4 Immature Gran % (Auto) 4.500 H Neut % (Auto) 70.7 H Lymph % (Auto) 11.7 L [place] % (Auto) 9.2 Eos % (Auto) 3.3 Baso % (Auto) 0.6 Absolute Neuts (auto) 7.7 Absolute Lymphs (auto) 1.27 Nucleated RBC % 0 POC Glucose Micro: Microbiology 08/22/20 01:05 Blood Culture (Wb) - Anticubital Right Blood Culture - Preliminary No growth in 48 hours. 08/21/20 23:55 Blood Culture (Wb) - Anticubital Left Blood Culture - Preliminary No growth in 48 hours. 08/22/20 10:00 Bone - Toe Gram Stain - Final 08/22/20 10:00 Bone - Toe Wound Culture - Preliminary Citrobacter koseri Gram negative maribel Gram positive organism 08/22/20 10:00 Bone - Toe Anaerobic Culture - Preliminary 08/22/20 10:00 Bone - Toe Gram Stain - Final 08/22/20 10:00 Bone - Toe Wound Culture - Preliminary Gram negative maribel 08/22/20 10:00 Bone - Toe Anaerobic Culture - Preliminary Checking for anaerobes, further studies to follow. 08/22/20 08:00 Interface Orders SARS-CoV-2 Antigen (Rapid) - Final Radiography Diagnostic Testing: Radiology Impression Chest X-Ray 08/24/20 16:25 Physical Exam Const alert, oriented x3 and no apparent distress General Appearance: cooperative HEENT normocephalic Extremity normal capillary refill Extremity Narrative: Pedal pulses are palpable to the foot bilateral. Negative Hardy sign bilateral General Extremity: edema Skin Skin Narrative: Wound VAC is in place to right foot without evidence of leaking. No adjacent purulence, no erythema, no streaking, no odor. Adjacent skin is atrophic. Neuro Neuro Narrative: lack of normal epicritic sensation via light touch consistent with neuropathy Assessment & Plan Assessment/Plan (1) Necrotizing cellulitis: (2) Uncontrolled diabetes mellitus: QUALIFIERS: Diabetes mellitus type: other specified (including IZABELA) Glycemic state: with hyperglycemia Qualified Code(s): E13.65 - Other specified diabetes mellitus with hyperglycemia (3) Chronic kidney disease: QUALIFIERS: Chronic kidney disease stage: stage 3 (moderate) Chronic kidney disease stage 3 subtype: stage 3b (GFR 30-44) Qualified Code(s): N18.32 - Chronic kidney disease, stage 3b PLAN: I reviewed and discussed his case including his diagnostic data. His vitals are stable. Open first ray resection performed 3 days ago. White blood cell count was 10.9. Wound VAC was applied and appears to be stable. This is ordered for 150 mmHg continuously and will be changed 3 times a week. He is on emperic IV vancomycin and Zosyn at this time. Intraoperative cultures from resected tissue include beta-hemolytic organism and gram-negative maribel. The first metatarsal head clearance fragment does demonstrate gram-negative maribel growth this time. The first metatarsal head clearance fragment sent to pathology is still pending. His wound MRSA PCR was negative. Blood cultures are also still pending. Infectious disease consult is appreciated. PICC line was placed yesterday. To continue with Leonides wraps and elevation to control lower extremity edema. Venous Dopplers ordered. He does not have a deep venous thrombosis his deep vein system appears patent without reflux evidence. Noninvasive arterial studies were also completed and he appears to have normal perfusion with triphasic waveforms and normal bilateral ABIs. It is noted he has some noncompressible vessels on the left lower extremity and this is not noted on the right lower extremity. To maintain a nonweightbearing status to the right lower extremity. Medical management and DVT prophylaxis per hospitalist team is appreciated. A1C noted at 11.1 % is not indicative for good prognosis. Please do not hesitate to call if you have any questions. Discharge planning: Likely he will be discharged home pending home health arrangement for wound VAC and antibiotic finalization. To follow-up with Dr. Rahman at time of discharge. Kelsea Buchanan DPM, [facility] [phone]
--- NOTE | 2020-08-25 07:50 | NURSING ---
Pt resting in bed. states he is really hoping to go home today. wound VAC dressing intact. Good seal noted at 150mmHg low continuous suction. will talk with case management this am to be sure home care is arranged. Dr Buchanan had been in to see patient this am as well. Pt denies further needs at this time.
[2020-08-25] MEDS: Glimepiride 2 MG Tablet PO (08:29)
[2020-08-25] MEDS: Aspirin 81 MG TAB.CHEW PO (08:29)
[2020-08-25] MEDS: Losartan Potassium 25 MG Tablet PO (10:32)
[2020-08-25] MEDS: hydrALAZINE 25 MG Tablet 75 MG PO ×2 (10:32→21:43)
[2020-08-25] MEDS: amLODIPine 5 MG Tablet PO (10:33)
[2020-08-25] MEDS: Isosorbide Mononitrate 60 MG Tablet PO (10:33)
[2020-08-25] MEDS: Magnesium Chloride 64 MG Delay Rel.Tablet 128 MG PO (10:33)
[2020-08-25 11:36] LABS: Bedside Glucose 147 mg/dL (70-110)
[2020-08-25 12:05] LABS: Bedside Glucose 221 mg/dL (70-110)
[2020-08-25] MEDS: Insulin Lispro 100 UNIT/ML INSULN.PEN SC ×3 (12:40→21:43)
--- NOTE | 2020-08-25 15:07 | NURSING ---
Home VAC approved. Pt really wanting to go home today. awaiting culture results to see what antibiotics are needed at home.
--- NOTE | 2020-08-25 16:09 | NURSING ---
WALDO DC Planning note: Plan: DC 5 on IV Abx Zosyn 3.375gm IV Q12hr, stop date 10/03/20 and Vancomycin 1.75gm IV Q24hr, stop date 10/03/20. Wound care-wound vac 150mmhg suction to be changed three times per week per [facility] wound nurse. This development writer s/w patient regarding plan of care and would like to DC home with [facility] for IV Abx and Wound care. States he can be taught for IV Abx. Has In network list of C with star rating and per geographical area, states [facility] preference if can accept- otherwise does not care which agency to go with. 1536- Called [facility] [phone], s/w Luzmaria and states to Fax over Inquiry to [phone] 1544- S/w Stephanie at [facility] [phone]- cannot accept patient. 1548- Called [facility] [phone], s/w Eva and cannot accept patient. 1551- Called [facility] in [place] [phone], s/w Sariah and cannot accept patient. 1553- Called [facility] in [place] [phone], s/w Bernie and states to fax inquiry over to [phone] 1614- Inquiry faxed ro [facility] and [facility] in [place]. ID Dr Nick here now on floor rounding. WALDO Samson
--- NOTE | 2020-08-25 16:31 | PN.HOSP_ITS ---
Subjective Subjective Patient was seen and examined today, he has 3 organisms growing out of his cultures, the third organism resulted this afternoon is showing Enterococcus, I spoke briefly with infectious diseases about antibiotic coverage. It might be possible to stop his vancomycin once we know the sensitivity of the Enterococcus. Objective Data Objective Data Vital Signs: Vital Signs Temp Pulse Resp BP Pulse Ox 97.5 F L 84 18 157/85 H 98 08/25/20 15:01 08/25/20 15:01 08/25/20 15:01 08/25/20 15:01 08/25/20 15:01 Oxygen Delivery Method Room Air Weight: 136.7 kg Body Mass Index (BMI) 42.0 Intake & Output: Intake and Output for Last 24 Hours 08/23/20 08/24/20 08/25/20 23:59 23:59 23:59 Intake Total 2365 / 2365 2465 / 2465 1125 / 1125 Output Total 2700 / 2700 2355 / 2355 800 / 800 Balance -335 / -335 110 / 110 325 / 325 Lab / Micro Data Result Diagrams: 08/25/20 06:00 08/23/20 09:24 Labs: Laboratory Results - last 24 hr 08/24/20 08/24/20 08/25/20 17:00 22:08 06:00 WBC 10.9 RBC 2.97 L Hgb 7.9 L Hct 24.7 L MCV 83.2 MCH 26.6 L MCHC 32.0 RDW Std Deviation 42.0 RDW Coeff of Rajendra 14.0 Plt Count 327 MPV 10.4 Immature Gran % (Auto) 4.500 H Neut % (Auto) 70.7 H Lymph % (Auto) 11.7 L [place] % (Auto) 9.2 Eos % (Auto) 3.3 Baso % (Auto) 0.6 Absolute Neuts (auto) 7.7 Absolute Lymphs (auto) 1.27 Nucleated RBC % 0 POC Glucose 235 H 235 H 08/25/20 08/25/20 06:17 11:55 WBC RBC Hgb Hct MCV MCH MCHC RDW Std Deviation RDW Coeff of Rajendra Plt Count MPV Immature Gran % (Auto) Neut % (Auto) Lymph % (Auto) [place] % (Auto) Eos % (Auto) Baso % (Auto) Absolute Neuts (auto) Absolute Lymphs (auto) Nucleated RBC % POC Glucose 147 H 221 H Micro: Microbiology 08/22/20 10:00 Bone - Toe Gram Stain - Final 08/22/20 10:00 Bone - Toe Wound Culture - Preliminary Citrobacter koseri Proteus mirabilis GPC Poss Enterococcus sp 08/22/20 10:00 Bone - Toe Gram Stain - Final 08/22/20 10:00 Bone - Toe Wound Culture - Final Citrobacter koseri 08/22/20 10:00 Bone - Toe Anaerobic Culture - Preliminary Checking for anaerobes, further studies to follow. 08/22/20 01:05 Blood Culture (Wb) - Anticubital Right Blood Culture - Preli minary No growth in 48 hours. 08/21/20 23:55 Blood Culture (Wb) - Anticubital Left Blood Culture - Preliminary No growth in 48 hours. 08/22/20 08:00 Interface Orders SARS-CoV-2 Antigen (Rapid) - Final Radiography Diagnostic Testing: Radiology Impression Chest X-Ray 08/24/20 16:25 [facility]am [facility]ative [facility] [address] [place] [address] Progress Note - Ucldzcxhpdz59/17/21 1924MR#: [id number]:YOSEPH PERSAUD Jr.Rep #:[id number]: [id number]: Giuseppe Oliver DOPCP:Dr. Joseph Ricks MD Status:ADM INLocation: [id number] Subjective Subjective Patient was seen and examined today, he does not complain of any pain in his right foot, his cultures resulted as positive for gram-negative maribel and beta- hemolytic organism. Infectious disease saw the patient today and recommended continuing present antibiotics. Objective Data Objective Data Vital Signs: Vital Signs Temp Pulse Resp BP Pulse Ox 98.5 F 84 18 142/70 H 95 08/23/20 13:55 08/23/20 13:55 08/23/20 13:55 08/23/20 13:55 08/23/20 13:55 Oxygen Delivery Method Room Air Weight: 136.7 kg Body Mass Index (BMI) 42.0 Intake & Output:Intake and Output for Last 24 Hours 08/21/20 08/22/20 08/23/20 23:59 23:59 23:59 Intake Total 2360 / 2360 2365 / 2365 Output Total 3200 / 3525 2700 / 2700 Balance -840 / -1165 -335 / -335 Lab / Micro Data Result Diagrams: 08/23/20 09:24 document embedded image 08/23/20 09:24 document embedded image Labs:Laboratory Results - last 24 hr 08/22/20 08/23/20 08/23/20 22:47 06:27 07:00 WBC RBC Hgb Hct MCV MCH MCHC RDW Std Deviation RDW Coeff of Rajendra Plt Count MPV Immature Gran % (Auto) Neut % (Auto) Lymph % (Auto) [place] % (Auto) Eos % (Auto) Baso % (Auto) Absolute Neuts (auto) Absolute Lymphs (auto) Nucleated RBC % Sodium Potassium Chloride Carbon Dioxide Anion Gap BUN Creatinine Estim Creat Clear Calc Est GFR (MDRD) Af Amer Est GFR (MDRD) Non-Af BUN/Creatinine Ratio Glucose Calcium S.aureus Protein A PCR NEGATIVE MRSA (PCR) Negative POC Glucose 180 H 163 H 08/23/20 08/23/20 08/23/20 09:24 09:24 11:05 WBC 10.3 RBC 2.88 L Hgb 7.8 L Hct 23.8 L MCV 82.6 MCH 27.1 MCHC 32.8 RDW Std Deviation 41.2 RDW Coeff of Rajendra 13.7 Plt Count 258 MPV 10.6 Immature Gran % (Auto) 1.600 H Neut % (Auto) 76.0 H Lymph % (Auto) 9.4 L [place] % (Auto) 10.3 H Eos % (Auto) 2.1 Baso % (Auto) 0.6 Absolute Neuts (auto) 7.8 H Absolute Lymphs (auto) 0.97 Nucleated RBC % 0 Sodium 140 Potassium 3.8 Chloride 108 H Carbon Dioxide 26.0 Anion Gap 6 BUN 57 H Creatinine 2.41 H Estim Creat Clear Calc 38.19 Est GFR (MDRD) Af Amer 37 L Est GFR (MDRD) Non-Af 30 L BUN/Creatinine Ratio 23.7 H Glucose 185 H Calcium 8.6 S.aureus Protein A PCR MRSA (PCR) POC Glucose 177 H 08/23/20 16:36 WBC RBC Hgb Hct MCV MCH MCHC RDW Std Deviation RDW Coeff of Rajendra Plt Count MPV Immature Gran % (Auto) Neut % (Auto) Lymph % (Auto) [place] % (Auto) Eos % (Auto) Baso % (Auto) Absolute Neuts (auto) Absolute Lymphs (auto) Nucleated RBC % Sodium Potassium Chloride Carbon Dioxide Anion Gap BUN Creatinine Estim Creat Clear Calc Est GFR (MDRD) Af Amer Est GFR (MDRD) Non-Af BUN/Creatinine Ratio Glucose Calcium S.aureus Protein A PCR MRSA (PCR) POC Glucose 205 H Micro:Microbiology 08/22/20 10:00 Bone - Toe Gram Stain - Final 08/22/20 10:00 Bone - Toe Wound Culture - Preliminary Gram negative maribel Beta hemolytic organism 08/22/20 10:00 Bone - Toe Gram Stain - Final 08/22/20 10:00 Bone - Toe Wound Culture - Preliminary No growth-Final to follow 08/22/20 08:00 Interface Orders SARS-CoV-2 Antigen (Rapid) - Final Radiography Diagnostic Testing:Radiology Impression Foot X-Ray 08/23/20 07:45 IMPRESSION: 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 Normal postoperative soft tissue swelling and subcutaneous emphysema. Bones of the foot otherwise unchanged from the preop study of 08/22/2020 Electronically Signed: Medhat Shine MD at 8:59 EDT , Service support , Const alert, oriented x3 and no apparent distress HEENT head/scalp atraumatic and moist oral mucous membranes Head and Scalp: normocephalic Eyes PERRL, EOMs intact bilaterally and conjunctivae normal Neck no lymphadenopathy, supple and no JVD Resp normal respiratory effort, no retractions, no use of accessory muscles and clear to auscultation bilaterally Cardio regular rate, regular rhythm, S1 normal heart sound, S2 normal heart sound, no rub, no gallops and no clicks GI normal to inspection, nondistended, normoactive bowel sounds, soft to palpation, non-tender and non-distended GI Narrative: Patient is obese Extremity Extremity Narrative: There is a surgical dressing over the patient's right lower leg and foot and ankle area, this was not removed for examination Neuro oriented x3 and CN's II-XII intact bilaterally Sensorium / Orientation: awake and alert Psych affect normal Const alert, oriented x3 and no apparent distress HEENT head/scalp atraumatic and moist oral mucous membranes Head and Scalp: normocephalic Eyes PERRL, EOMs intact bilaterally and conjunctivae normal Neck no lymphadenopathy, supple and no JVD Resp normal respiratory effort, no retractions, no use of accessory muscles and clear to auscultation bilaterally Cardio regular rate, regular rhythm, S1 normal heart sound, S2 normal heart sound, no rub, no gallops and no clicks GI normal to inspection, nondistended, normoactive bowel sounds, soft to palpation, non-tender and non-distended GI Narrative: Patient is obese Extremity Extremity Narrative: There is a surgical dressing over the patient's right lower leg and foot and ankle area, this was not removed for examination Neuro oriented x3, CN's II-XII intact bilaterally and no focal motor deficits Sensorium / Orientation: awake and alert Psych affect normal Assessment & Plan Assessment/Plan (1) Necrotizing cellulitis: PLAN: 1. Necrotizing cellulitis of the right foot with gram-negative bacteria and Enterococcus-status post amputation of the right great toe postop day #3 with debridement of devitalized tissue-patient will remain on current antibiotic coverage per infectious diseases, he will need outpatient antibiotic treatment via PICC line, sensitivity is pending on the Enterococcus #2 uncontrolled type 2 diabetes #3 coronary artery disease #4 essential hypertension #5 chronic kidney disease stage IIIb #6 anemia of chronic renal disease Visit Charges Inpatient E&M: 66545 Subs Hosp L2
--- NOTE | 2020-08-25 16:52 | PCM.PN.ID ---
Physical Exam Narrative Feeling ok, no fever, no n/v/d. 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 Rahman. Surg cx with citrobacter, proteus, enterococcus-like. Wrote for 6 week vanc/zosyn, stop date 10/03. May be able to stop vanc based on final susceptibilities. Will follow, d/w primary team. ID followup in 3 weeks. (2) Uncontrolled diabetes mellitus: QUALIFIERS: Diabetes mellitus type: other specified (including IZABLEA) Glycemic state: with hyperglycemia Qualified Code(s): E13.65 - Other specified diabetes mellitus with hyperglycemia (3) Chronic kidney disease: QUALIFIERS: Chronic kidney disease stage: stage 3 (moderate) Chronic kidney disease stage 3 subtype: stage 3b (GFR 30-44) Qualified Code(s): N18.32 - Chronic kidney disease, stage 3b
[2020-08-25 17:11] LABS: Bedside Glucose 220 mg/dL (70-110)
[2020-08-25] MEDS: Atorvastatin Calcium 80 MG Tablet PO (21:43)
[2020-08-25 21:50] LABS: Bedside Glucose 183 mg/dL (70-110)
[2020-08-26 01:58] VITALS: BP 154/74; PULSE 101; RESP 18; TEMP 37.2; O2SAT 94
[2020-08-26] MEDS: Insulin Lispro 100 UNIT/ML INSULN.PEN SC ×2 (06:38→11:48)
[2020-08-26 06:45] LABS: Bedside Glucose 157 mg/dL (70-110)
[2020-08-26 06:46] VITALS: O2SAT 96
--- NOTE | 2020-08-26 08:00 | CASEMGMT ---
RN RASHEL received message from [facility] that they are not able to accept the patient. CM will continue to work on HHC and facilitate discharge planning.
[2020-08-26 08:03] VITALS: BP 169/85; PULSE 87; RESP 18; TEMP 36.4; O2SAT 98
--- NOTE | 2020-08-26 08:28 | NURSING ---
wound photo: right foot
--- NOTE | 2020-08-26 08:28 | NURSING ---
wound photo: right plantar foot
[2020-08-26 09:34] VITALS: PULSE 87
[2020-08-26] MEDS: hydrALAZINE 25 MG Tablet 75 MG PO (09:34)
[2020-08-26] MEDS: Isosorbide Mononitrate 60 MG Tablet PO (09:34)
[2020-08-26] MEDS: Losartan Potassium 25 MG Tablet PO (09:34)
[2020-08-26] MEDS: amLODIPine 5 MG Tablet PO (09:34)
[2020-08-26] MEDS: Magnesium Chloride 64 MG Delay Rel.Tablet 128 MG PO (09:34)
[2020-08-26] MEDS: Aspirin 81 MG TAB.CHEW PO (09:34)
[2020-08-26] MEDS: Glimepiride 2 MG Tablet PO (09:35)
--- NOTE | 2020-08-26 10:33 | PCM.PN.ID ---
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 Rahman. Surg cx with citrobacter, proteus, enterococcus. Wrote for 6 week vanc/zosyn, stop date 10/03. Ok to stop vanc based on final susceptibilities. Will follow, d/w primary team. ID followup in 3 weeks. (2) Uncontrolled diabetes mellitus: QUALIFIERS: Diabetes mellitus type: other specified (including IZABELA) Glycemic state: with hyperglycemia Qualified Code(s): E13.65 - Other specified diabetes mellitus with hyperglycemia (3) Chronic kidney disease: QUALIFIERS: Chronic kidney disease stage: stage 3 (moderate) Chronic kidney disease stage 3 subtype: stage 3b (GFR 30-44) Qualified Code(s): N18.32 - Chronic kidney disease, stage 3b
[2020-08-26 11:56] LABS: Bedside Glucose 216 mg/dL (70-110)
[2020-08-26 14:28] VITALS: BP 145/71; PULSE 83; RESP 18; TEMP 36.2; O2SAT 97
--- NOTE | 2020-08-26 14:36 | PCM.DC ---
Discharge Instructions Diet Discharge Diet: 1800 Calorie Control Diet Activity Discharge Activity: May Not Shower and Use Walker Weight Bearing Status: No weight bearing (right lower extremity) Dressing / Incision Call your doctor if your incision/area has: Continuous Slow Oozing, Increased Pain/ Swelling and Foul Smelling Discharge Follow Up Care Test Results: Test results from this visit will be discussed in further detail at your follow-up appointment, if applicable. Discharge Plan Admission Admit Date/Time: 08/22/20 01:51 Primary Reason for Your Visit: right foot infection, amputation right great toe Attending Provider: Giuseppe Oliver Primary Care Provider: Joseph Ricks Consulting Providers: Jimy Rahman ; Cliff Nick Instructions Patient Instructions: Diabetes: Inspecting Your Feet, Diabetes: Caring for Your Body Additional Instructions / Restrictions: Maintain a non weightbearing status to your right foot with surgical shoe in place. It is ok to touch down with you heel if needed for transfers. [facility] with Dr. Rahman at time of discharge within one week; call [phone]. Elevate right lower extremity each hour. Discharge Orders/Prescriptions Prescriptions: New Zosyn in dextrose (iso-osm) 3.375 gram/50 mL piggyback 3.375 g IV Q12H Qty: 76 RF: 0 Continued nitroglycerin 0.4 mg tablet, sublingual 0.4 mg SUBLINGUAL Q5-15M PRN (Reason: Cardiac/Chest Pain) RF: 0 glimepiride 2 mg tablet 2 mg PO QAM Qty: 90 RF: 0 losartan 25 mg tablet 25 mg PO DAILY RF: 0 furosemide 40 mg tablet 40 mg PO .COMPLEX Qty: 240 RF: 3 Mag-Ox 400 1 tab PO DAILY RF: 0 aspirin 81 MG tablet,chewable 81 mg PO DAILY@0800 RF: 0 atorvastatin 80 MG tablet 80 mg PO QHS RF: 0 clopidogrel 75 MG tablet 75 mg PO DAILY Qty: 90 RF: 0 Trulicity 0.75 mg/0.5 mL pen injector 0.75 mg SUBCUT TH RF: 0 hydralazine 50 mg tablet 50 mg PO .COMPLEX Qty: 90 RF: 11 hydralazine 25 mg tablet 25 mg PO .COMPLEX Qty: 90 RF: 11 amlodipine 5 mg tablet 5 mg PO DAILY Qty: 90 RF: 3 metoprolol succinate 100 mg tablet extended release 24 hr 100 mg PO DAILY Qty: 90 RF: 3 isosorbide mononitrate 60 mg tablet extended release 24 hr 60 mg PO DAILY Qty: 90 RF: 3 Changed insulin glargine 100 unit/mL (3 mL) insulin pen 15 unit SC DAILY Qty: 0 RF: 0 Referrals / Follow Up: Jimy Rahman DPM [STAFF PHYSICIAN] - Joseph Ricks MD [Primary Care Provider] - Clinic,Wound [None] - 08/30/20 1:00 pm ([address] [place] [address] ) Disposition Disposition (needs filled in before D/C Order can be placed): Home Health Service
--- NOTE | 2020-08-26 14:51 | NURSING ---
Pt switched over to the home VAC. RASHEL Vazquez was able to find home health care through [facility]. Reviewed alarms, how to return VAC, etc. with patient. Proof of delivery form signed and faxed back to [facility]. pt and son deny further questions at this time.
--- NOTE | 2020-08-26 15:00 | CASEMGMT ---
RADHA KISER sent referrals to 12 agencies for HHC. [facility], [facility], [facility], [facility], [facility], [facility], [facility], [facility], [facility], [facility], [facility] were all unable to accept the patient due to staffing. RADHA KISER [facility] and they are able to accept the patient. Start of care is planned for 08/27/20 at 9am. RADHA KISER called and updated [facility] and they will send IV ATBs. RADHA KISER made appt with wound center for 08/30/20 1300. Patient will need walker, script received and patient would like [facility] as he has used them in the past. RADHA KISER sent referral to [facility] and arrange for delivery of walker to patient's room. RADHA KISER updated the patient regarding HHC setup with [facility] and IV atb delivery. Patient and son voiced understanding. RADHA KISER updated nurse Nori GARCIA and hospitalist regarding HHC setup and confirmed IV ATBs.
[2020-08-26 15:46] VITALS: BP 162/70; PULSE 82; RESP 18; TEMP 36.4; O2SAT 95
[2020-08-26] MEDS: 0.9% Saline Lock 10 ML Syringe IV (15:50)
--- NOTE | 2020-08-27 09:57 | DS.PCM_ITS ---
Providers Date of Admission: 08/22/20 Date of Discharge: 08/26/20 Primary Care Physician: Dr. Joseph Ricks MD Consultations 08/22/20 01:52 Consult: Podiatry Routine Consulting Provider: Jimy Rahman Reason for Consult: right great toe infection EMERGENT Consult: No Notified: Yes Date Notified:: 08/22/20 Time Notified: 00:00 Method of Notification: Page Comments:: notified by ER 08/22/20 02:25 Consult: Onc/Wound/engineering vice president Routine Comment: Reason for Consult:: Right great toe wound 08/23/20 09:25 Consult: Infectious Disease Routine Consulting Provider: Cliff Nick Reason for Consult: deep wound, amputation, DM EMERGENT Consult: No Notified: Yes Date Notified:: 08/23/20 Time Notified: 09:25 Method of Notification: Answering Service Reason For Visit: RIGHT GREAT TOE INFECTION, R LEG CELLULITIS Diagnosis Discharge Diagnosis (1) Necrotizing cellulitis: Status: Acute Code(s): L03.90 - Cellulitis, unspecified (2) Uncontrolled diabetes mellitus: Status: Acute Code(s): E11.65 - Type 2 diabetes mellitus with hyperglycemia Qualifiers: Diabetes mellitus type: other specified (including IZABELA) Glycemic state: with hyperglycemia Qualified Code(s): E13.65 - Other specified diabetes mellitus with hyperglycemia (3) Chronic kidney disease: Status: Chronic Code(s): N18.9 - Chronic kidney disease, unspecified Qualifiers: Chronic kidney disease stage: stage 3 (moderate) Chronic kidney disease stage 3 subtype: stage 3b (GFR 30-44) Qualified Code(s): N18.32 - Chronic kidney disease, stage 3b Plan: 1.? Necrotizing cellulitis of the right foot with Citrobacter koseri, Proteus mirabilis, and Enterococcus #2 uncontrolled type 2 diabetes #3 coronary artery disease #4 essential hypertension #5 chronic kidney disease stage IIIb secondary to type 2 diabetes #6 anemia of chronic renal disease Medications at Discharge Home Medications Mag-Ox 400 1 tab PO DAILY 09/28/14 aspirin 81 mg PO DAILY@0800 09/28/14 nitroglycerin 0.4 mg sublingual tablet 0.4 mg SUBLINGUAL Q5-15M PRN 04/20/17 atorvastatin 80 mg PO QHS 12/20/18 clopidogrel 75 mg PO DAILY #90 tab 12/25/18 glimepiride 2 mg tablet 2 mg PO QAM #90 tab 03/11/19 hydralazine 25 mg tablet 25 mg PO .COMPLEX #90 tab 09/08/19 hydralazine 50 mg tablet 50 mg PO .COMPLEX #90 tab 09/08/19 losartan 25 mg tablet 25 mg PO DAILY 09/09/19 furosemide 40 mg tablet 40 mg PO .COMPLEX #240 tab 11/18/19 amlodipine 5 mg tablet 5 mg PO DAILY #90 tab 02/16/20 metoprolol succinate 100 mg tablet,extended release 24 hr 100 mg PO DAILY #90 tab 05/13/20 isosorbide mononitrate 60 mg tablet,extended release 24 hr 60 mg PO DAILY #90 tab 07/21/20 Trulicity 0.75 mg SUBCUT TH 08/21/20 [id number] [Zosyn in dextrose (iso-osm)] 3.375 g IV Q12H #76 bag 08/25/20 insulin glargine 15 unit SC DAILY #0 ml 08/26/20 Hospital Course Operations - (Amputation of right great toe with removal of devitalized infected tissue and bone-08/22/2020) Procedures None Summary of Care Provided Minutes Spent on Discharge: 32 Hospital Course: This 50-year-old white male was seen in the emergency room at [facility] for evaluation of right foot wound. Work-up in the emergency room included a CBC which showed an elevated white blood cell count at 12.3, chemistry profile revealed an elevated creatinine 3.52, and x-ray of the right foot revealed soft tissue thickening consistent with cellulitis and evidence of arthritis. Patient was admitted to [place] [address], he was placed on IV antibiotics and seen in consultation by podiatry and infectious diseases, patient underwent surgery to his right foot with removal of the right great toe and removal of devitalized tissue and bone in the right foot. Antibiotic coverage was adjusted per infectious diseases. Patient had a wound VAC applied ultimately while in the hospital, cultures grew out 3 different bacterial org anisms and a PICC line was inserted for outpatient antibiotic administration. On 08/26/2020, patient was seen and examined: On examination he appeared in good health and spirits. Vital signs as documented. Skin warm and dry and without overt rashes. Neck without JVD, neck was supple, trachea midline, thyroid was normal. Lungs clear bilaterally, normal air movement was noted. Heart exam notable for regular rhythm, normal sounds and absence of murmurs, rubs or gallops. Abdomen unremarkable and without evidence of organomegaly, masses, or abdominal aortic enlargement. Bowel sounds are present, abdomen is not distended. Extremities-wound VAC was in place over the right great toe area, no cyanosis was noted, no clubbing was noted. Neuro: Cranial nerves II through XII are grossly intact, no focal motor deficits were noted, sensation to light touch and pinprick intact, motor exam 5/5 throughout. Psych: Patient is alert and oriented x3, he does not appear anxious or depressed, he does not appear agitated. Patient was discharged home on 08/26/2020 with home health. He was in stable condition. ABG / Lab / Microbiology Data Result Diagrams: 08/25/20 06:00 08/23/20 09:24 Laboratory: Laboratory Results - last 24 hr 08/26/20 11:46 POC Glucose 216 H Microbiology: Microbiology 08/22/20 01:05 Blood Culture - Final Blood Culture (Wb) - Anticubital Right No growth in 5 days. 08/21/20 23:55 Blood Culture - Final Blood Culture (Wb) - Anticubital Left No growth in 5 days. 08/22/20 10:00 Gram Stain - Final Bone - Toe Wound Culture - Final Citrobacter koseri Proteus mirabilis Enterococcus faecalis Anaerobic Culture - Preliminary Anaerobic cocci 08/22/20 10:00 Gram Stain - Final Bone - Toe Wound Culture - Final Citrobacter koseri Anaerobic Culture - Preliminary Checking for anaerobes, further studies to follow. Microbiology 08/22/20 01:05 Blood Culture (Wb) - Anticubital Right Blood Culture - Final No growth in 5 days. 08/21/20 23:55 Blood Culture (Wb) - Anticubital Left Blood Culture - Final No growth in 5 days. 08/22/20 10:00 Bone - Toe Gram Stain - Final 08/22/20 10:00 Bone - Toe Wound Culture - Final Citrobacter koseri Proteus mirabilis Enterococcus faecalis 08/22/20 10:00 Bone - Toe Anaerobic Culture - Preliminary Anaerobic cocci 08/22/20 10:00 Bone - Toe Gram Stain - Final 08/22/20 10:00 Bone - Toe Wound Culture - Final Citrobacter koseri 08/22/20 10:00 Bone - Toe Anaerobic Culture - Preliminary Checking for anaerobes, further studies to follow. 08/22/20 08:00 Interface Orders SARS-CoV-2 Antigen (Rapid) - Final D/C Instructions Discharge Diet: 1800 Calorie Control Diet Discharge Activity: May Not Shower and Use Walker Weight Bearing Status: No weight bearing (right lower extremity) Call your doctor if your incision/area has: Continuous Slow Oozing, Increased Pain/ Swelling and Foul Smelling Discharge Meaningful Use Info Meaningful Use Diagnoses (Choose all that apply): None applicable Discharge Plan Admission Admit Date/Time: 08/22/20 01:51 Primary Reason for Your Visit: right foot infection, amputation right great toe Attending Provider: Giuseppe Oliver Primary Care Provider: Joseph Ricks Consulting Providers: Jimy Rahman ; Cliff Nick Instructions Patient Instructions: Diabetes: Inspecting Your Feet, Diabetes: Caring for Your Body Additional Instructions / Restrictions: Maintain a non weightbearing status to your right foot with surgical shoe in luis ce. It is ok to touch down with you heel if needed for transfers. [facility] with Dr. Rahman at time of discharge within one week; call [phone]. Elevate right lower extremity each hour. Discharge Orders/Prescriptions Prescriptions: New Zosyn in dextrose (iso-osm) 3.375 gram/50 mL piggyback 3.375 g IV Q12H Qty: 76 RF: 0 Continued nitroglycerin 0.4 mg tablet, sublingual 0.4 mg SUBLINGUAL Q5-15M PRN (Reason: Cardiac/Chest Pain) RF: 0 glimepiride 2 mg tablet 2 mg PO QAM Qty: 90 RF: 0 losartan 25 mg tablet 25 mg PO DAILY RF: 0 furosemide 40 mg tablet 40 mg PO .COMPLEX Qty: 240 RF: 3 Mag-Ox 400 1 tab PO DAILY RF: 0 aspirin 81 MG tablet,chewable 81 mg PO DAILY@0800 RF: 0 atorvastatin 80 MG tablet 80 mg PO QHS RF: 0 clopidogrel 75 MG tablet 75 mg PO DAILY Qty: 90 RF: 0 Trulicity 0.75 mg/0.5 mL pen injector 0.75 mg SUBCUT TH RF: 0 hydralazine 50 mg tablet 50 mg PO .COMPLEX Qty: 90 RF: 11 hydralazine 25 mg tablet 25 mg PO .COMPLEX Qty: 90 RF: 11 amlodipine 5 mg tablet 5 mg PO DAILY Qty: 90 RF: 3 metoprolol succinate 100 mg tablet extended release 24 hr 100 mg PO DAILY Qty: 90 RF: 3 isosorbide mononitrate 60 mg tablet extended release 24 hr 60 mg PO DAILY Qty: 90 RF: 3 Changed insulin glargine 100 unit/mL (3 mL) insulin pen 15 unit SC DAILY Qty: 0 RF: 0 Referrals / Follow Up: Jimy Rahman DPM [STAFF PHYSICIAN] - In 1 Week (SundaySEPTEMBER 02 @ 0830 AM. PLEASE BRING INSURANCE CARD AND LIST OF MEDICATIONS.) Joseph Ricks MD [Primary Care Provider] - In 1 Week (WEDNESDAY SEPTEMBER 02, 2020 @ 0515 PM. THIS APPOINTMENT IS WITH [facility]ONI [facility] ) Clinic,Wound [None] - 08/30/20 1:00 pm ([address] [place] [address] ) Disposition Disposition (needs filled in before D/C Order can be placed): Home Health Service Visit Charges Inpatient E&M: [id number] Disch Hosp
--- NOTE | 2020-08-30 10:22 | CASEMGMT ---
RADHA KISER Discharge Follow-up Phone Call: MELA Olson: Moshe Call Date: 08/30/20 Discharge Date: 08/26/20 Time of Call: 1020 Duration: 5 min Admitting Diagnosis: Toe infection RADHA KISER completed follow-up phone call after to recent hospitalization. Patient states he is doing well. Patient has been seen by [facility] and is doing well with IV ATBs. Patient had no questions regarding discharge instructions. Patient aware of follow-up appts scheduled. Patient had no further questions or concerns at this time. RADHA KISER encouraged patient to follow-up with C if he should have further questions or concerns. Patient voiced understanding.
== END 2020-08-26 16:00 | disposition home health service (06) | DRG 579 ==
LOC: ED 08-22 01:31 → MS3 08-22 02:13
PROVIDERS: Anesthesiology; Podiatrist; Admitting Provider Hospitalist; Emergency Provider Emergency Medicine; PCP Family Medicine; Visit Provider Internal Medicine
PROC: 0Y6P0Z0 Detachment at Right 1st Toe, Complete, Open Approach (ICD-10-PCS; principal; 2020-08-22 09:00)
DX: L03.115 Cellulitis of right lower limb (principal); A48.0 Gas gangrene; I13.0 Hypertensive heart and chronic kidney disease with heart failure and stage 1 through stage 4 chronic kidney disease, or unspecified chronic kidney disease; I50.32 Chronic diastolic (congestive) heart failure; E11.52 Type 2 diabetes mellitus with diabetic peripheral angiopathy with gangrene; Z68.41 Body mass index [BMI] 40.0-44.9, adult; I25.10 Atherosclerotic heart disease of native coronary artery without angina pectoris; N18.32 Chronic kidney disease, stage 3b; E11.40 Type 2 diabetes mellitus with diabetic neuropathy, unspecified; D63.1 Anemia in chronic kidney disease; E66.9 Obesity, unspecified; E11.65 Type 2 diabetes mellitus with hyperglycemia; Z79.01 Long term (current) use of anticoagulants; Z79.4 Long term (current) use of insulin; Z79.899 Other long term (current) drug therapy; I25.2 Old myocardial infarction; E78.5 Hyperlipidemia, unspecified; I25.5 Ischemic cardiomyopathy; I87.2 Venous insufficiency (chronic) (peripheral); B96.4 Proteus (mirabilis) (morganii) as the cause of diseases classified elsewhere; B95.2 Enterococcus as the cause of diseases classified elsewhere; E11.22 Type 2 diabetes mellitus with diabetic chronic kidney disease; L97.519 Non-pressure chronic ulcer of other part of right foot with unspecified severity; E11.621 Type 2 diabetes mellitus with foot ulcer; Z83.3 Family history of diabetes mellitus; Z95.5 Presence of coronary angioplasty implant and graft; Z86.16 Personal history of COVID-19; M72.9 Fibroblastic disorder, unspecified
CPT/HCPCS: 36415; 36569; 71045; 73630; 80048; 80202; 82962; 83036; 83605; 85014; 85018; 85025; 85610; 85652; 85730; 86140; 87015; 87040; 87070; 87075; 87077; 87102; 87116; 87186; 87205; 87206; 87426; 87640; 88304; 88305; 88311; 90715; 93005; 93923; 93970; 97803; 99284; J7030; J7040; J7050; A4216; J0744

== ENCOUNTER → 2020-08-30 11:55 | Outpatient (CLI) | payer OTHER, SELFPAY ==
[2018-12-25 08:56] VITALS: BMI 37.9
[2020-08-22 08:07] VITALS: BMI 42.0
[2020-08-30 12:16] LABS: Anion Gap 7 (5-15); BUN 51 mg/dL (7-18); BUN/Creat Ratio 20.6 RATIO (10-20); Calcium,Total 8.8 mg/dL (8.5-10.1); Chloride 107 mmol/L (98-107); Creatinine, Serum 2.48 mg/dL (0.70-1.30); EST Glomerular Filtration Rate 29 mL/min (>60); Est Glom Filt Rate - Afr Amer 35 mL/min (>60); Glucose 198 mg/dL (74-106); Potassium 4.2 mmol/L (3.5-5.1); Sodium Level 142 mmol/L (136-145)
== END ==
LOC: LABSPEC 11:56
PROVIDERS: PCP Family Medicine; Referring Provider Internal Medicine Infectious Disease; Visit Provider Internal Medicine Infectious Disease
DX: M86.8X7 Other osteomyelitis, ankle and foot (principal)
CPT/HCPCS: 80048

== ENCOUNTER 2020-10-05 08:15 | Outpatient (RCR) | payer OTHER, SELFPAY ==
[2018-12-25 08:56] VITALS: BMI 37.9
[2020-08-30 13:53] VITALS: BMI 42.0
[2020-09-07 00:45] VITALS: BP 131/69; PULSE 81; RESP 18; TEMP 36
[2020-09-07 08:14] VITALS: BP 136/77; PULSE 75; RESP 18; TEMP 36.3; BMI 37.6
--- NOTE | 2020-09-07 08:28 | HP.PCM_ITS ---
History of Present Illness Date of Service: 09/07/20 Chief Complaint: Right foot wound History of Wound: Patient is a follow-up from the hospital visit. Patient has significant medical history including diabetes, congestive heart failure, hypertension, obesity, venous insufficiency, history of NSTEMI and COVID-19. Patient was admitted for right great toe ulceration on 08/22/2020. 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 Patient then had wound VAC applied to the open wound. Patient also had IV line placed for infectious disease with treatment of Vanco and Zosyn until 10/03/2020. Patient relates that he wished to stop the IV antibiotics and is now taking oral antibiotic. Patient cultures from surgery are noted to be positive for osteomyelitis. Patient following up from hospital visit for continued wound care. [facility] Medical History Atherosclerotic heart disease of [place] coronary artery without angina pectoris Chronic diastolic (congestive) heart failure Diabetes mellitus, type II Essential (primary) hypertension History of non-ST elevation myocardial infarction (NSTEMI) (03/15/20) History of stress test Hyperlipidemia Ischemic cardiomyopathy (06/2013) Obesity Pneumonia due to COVID-19 virus (03/14/20) Venous insufficiency Home Medications Mag-Ox 400 1 tab PO DAILY 09/28/14 [History Last Taken 12/20/18] aspirin 81 mg PO DAILY@0800 09/28/14 [History Last Taken 12/20/18] nitroglycerin 0.4 mg sublingual tablet 0.4 mg SUBLINGUAL Q5-15M PRN 04/20/17 [History Last Taken Unknown] atorvastatin 80 mg PO QHS 12/20/18 [History Last Taken 12/19/18] clopidogrel 75 mg PO DAILY #90 tab 12/25/18 [Rx Last Taken Unknown] glimepiride 2 mg tablet 2 mg PO QAM #90 tab 03/11/19 [Rx Last Taken Unknown] hydralazine 25 mg tablet 25 mg PO .COMPLEX #90 tab 09/08/19 [Rx Last Taken Unknown] hydralazine 50 mg tablet 50 mg PO .COMPLEX #90 tab 09/08/19 [Rx Last Taken Unknown] losartan 25 mg tablet 25 mg PO DAILY 09/09/19 [History Last Taken Unknown] furosemide 40 mg tablet 40 mg PO .COMPLEX #240 tab 11/18/19 [Rx Last Taken Unknown] amlodipine 5 mg tablet 5 mg PO DAILY #90 tab 02/16/20 [Rx Last Taken Unknown] isosorbide mononitrate 60 mg tablet,extended release 24 hr 60 mg PO DAILY #90 tab 07/21/20 [Rx Last Taken Unknown] Trulicity 0.75 mg SUBCUT TH 08/21/20 [History Last Taken Unknown] insulin glargine 15 unit SC DAILY #0 ml 08/26/20 [Rx Last Taken Unknown] amoxicillin 500 mg-potassium clavulanate 125 mg tablet 1 tab PO BID 09/03/20 [History Last Taken Unknown] metoprolol succinate 100 mg tablet,extended release 24 hr 100 mg PO DAILY #90 tab 09/03/20 [Rx Last Taken Unknown] Allergy/AdvReac Type Severity Reaction Status Date / Time lisinopril AdvReac Intermediate Cough Verified 08/21/20 23:27 losartan AdvReac Intermediate cough Verified 08/21/20 23:27 Family History Father , Age 57 from [place] Myocardial infarction CAD (coronary artery disease) Sudden cardiac Mother Sick sinus syndrome Sister Diabetes Surgical History (Updated 08/22/20 @ 02:49 by Aleksandar Santana) H/O cardiac catheterization History of coronary artery stent placement (01/02/19) Social History Smoking Status: Never smoker ROS Constitutional Constitutional: Denies chills or fever(s) Cardiovascular Cardiovascular: Denies chest pain Respiratory/Chest Respiratory/Chest: Denies cough Gastrointestinal Gastrointestinal: Denies nausea or vomiting Musculoskeletal Musculoskeletal: Denies muscle cramps or muscle weakness Integumentary Integumentary: Reports wounds Neurologic Neurologic: Reports numbness and tingling Vital Signs Vital Signs Vital Signs: 09/07/20 00:45 09/07/20 08:14 Temperature 96.8 F L 97.4 F L Temperature Source Temporal Pulse Rate 81 75 Respiratory Rate 18 18 Blood Pressure 131/69 H 136/77 H Blood Pressure Mean 89 96 Blood Pressure Source Monitor Blood Pressure Position Sitting Blood Pressure Location Left Arm Oxygen Delivery Method Room Air Weight Weight: 122.47 kg Body Mass Index (BMI) 37.6 Physical Exam Const alert and no apparent distress General Appearance: cooperative and comfortable HEENT Head and Scalp: atraumatic Resp normal respiratory effort Effort and Inspection: able to speak in complete sentences Extremity normal capillary refill, no calf tenderness and no pedal edema General Extremity: no tenderness to palpation of joints or extremities and other findings Other Details: Capillary refill time less than 3 seconds noted to digits ; Negative for clubbing or cyanosis Peripheral Pulses: Yes posterior tibial pulses present bilateral diminished and dorsalis pedis pulses present bilateral diminished Skin General Skin Exam: atrophy and dry skin; Negative for ecchymosis, erythema, eschar, pallor or dermatitis Rashes: no rashes Wounds: wounds noted Wound Narrative: ulcers noted to right first ray amputation site down to the level of bone as well as plantar fifth metatarsal head down to level of fat and fascia. No malodor, erythema, purulence, streaking, fluctuation, crepitus, or other signs of infection. Skin is atrophic and hairless. Granular base. Hallux amputation site probes to bone. Fifth metatarsal ulceration does not probe to bone. Dorsal right foot noted to have erythematous area consistent with pressure from wound VAC tube. No open wounds at this time. Will monitor area closely. No signs of infection. Neuro Gait (Neuro): antalgic and assistive device used Sensory Exam: extremities light-touch: decreased Motor Exam: strength 5/5 throughout Psych Appearance: appropriate Attitude: calm Debridement Note Debridement Note Post-Debridement Measurements and Additional Note: Post-Debridement Measurements/Treatment - Nurse 1 - General Ulcer Assessment Start: 09/07/20 08:14 Freq: Status: Active Protocol: RADHA Activity Type Activity Date Activity User E-Sign Co-Sign Detail Recorded Client Recorded Date Recorded By Document 09/07/20 08:14 MW [id number] 09/07/20 08:27 MW 09/07/20 08:14 - Today's Visit Information Type of service Initial Visit Arrival Mode Ambulatory Transfer Assistance None Accompanied by self Patient Identification Verified (Name & Yes ) Patient Requires Transmission-Based No Precautions Finger Stick Blood Sugar(mg/dl) (if 147 indicated): Blood Sugar Stated by Patient Height and Weight Height 5 ft 11 in Weight 122.47 kg Weight in Pounds 270.0 lbs Weight Measurement Method Stated by Patient Body Mass Index (BMI) 37.6 BMI Classification Obese BSA - Chris 2.40 Vital Signs Temperature (97.8 F-99.1 F) 97.4 F L Temperature Source Temporal Pulse Rate (60-100) 75 Pulse Location Monitor Respiratory Rate (12-18) 18 Respiratory rate source Observation Oxygen Delivery Method Room Air Blood Pressure (90/60-120/80) 136/77 H Blood Pressure Mean 96 Source Monitor Position Sitting Blood Pressure Location Left Arm History Since Last Visit- (Skip if this is Patient's initial visit) Left Footwear Regular Shoe Right Footwear Removable Cast Walker/Walking Boot Pain Scale: 0-10 Numeric Is Patient Pain Free? Yes Communication Assessment Preferred language [place] Crossword Puzzle Maker Required No Able to Read Yes Able to Write Yes Communication Tools None Caregiver Communication Skills No Impairment Impairment Right Hearing Abillity Normal Left Hearing Abillity Normal Visual Assistive Devices Glasses Teaching Assessment Preferences Verbal,Written, Audio/Visual, Demonstration Barriers to Learning None Readiness To Learn Excellent Willingness to Engage in Self Management High Activies Readiness to Engage in Self Management High Activities Anxiety Level Calm Cooperation Cooperative Perception Coherent Interest in Health Problem Asks Questions Education Importance Acknowledges Need Does Patient Smoke tobacco or other Yes substances Smoking Status Never smoker Is Patient Diabetic Yes Culture/Baptism/Vice President Risk Management Cultural/Baptism Needs that may affect No Treatment Plan Would you allow our hospital raw juice weigher to No meet you for the purpose of spiritual/ emotional support? Vice President Risk Management to contact place of jehovah's witness No Teaching: Wound Center *Welcome to the Wound Center -Person Taught Patient -Teaching Method Discussion -Response to teaching Verbalize understanding WC - Nurse 1 - General Ulcer Measurement Start: 09/07/20 08:14 Freq: Status: Active Protocol: Activity Type Activity Date Activity User E-Sign Co-Sign Detail Recorded Client Recorded Date Recorded By Document 09/07/20 08:14 MW [id number] 09/07/20 08:27 MW 09/07/20 08:14 Wound Center Nurse 1 #1 RIGHT GREAT TOE AMP SITE -Combined with other wound No -Current Size (cm) - Length 8.0 -Current Size (cm) - Width 5.0 -Current Size (cm) - Depth 1.8 -Total Square Cm 40.00 -Photo Taken Yes -Epithelialization None Present -Tunneling No -Undermining/Tunneling No -Circular Undermining No -Exudate Amt Large -Exudate Type Serosanguineous -Wound Margin Distinct, Outline Attached -Granulation Amt Medium (34-66%) -Granulation Quality [place] -Slough/Fibrin Yes -Necrosis Amt Medium (34-66%) -Necrotic Tissue Type Adherent Slough -Structure Exposed N/A -Texture (Cathie-wound Skin Appearance) Assessed, Scarring -Moisture (Cathie-wound Skin Appearance) Assessed, Maceration -Color (Cathie-wound Skin Appearance) Assessed -Temperature (Cathie-wound Skin No Abnormality Appearance) (Pt Warm) -Tenderness on Palpation (Cathie-wound Yes Skin Appearance) -Ulcer Cleansing SOAP AND WATER -Foul Odor after Cleansing No -Anesthetic Used 4% Lidocaine Solution Lower Limb Edema Present Yes Right Calf (cm) 45.0 Right Ankle (cm) 27.5 Left Calf (cm) 42.0 Left Ankle (cm) 25.0 Wound debrided: Right first ray amputation site Laterality: Right Wound Grade/Stage: Contreras 3 Type of Debridement: Excisional debridement Anesthesia Used: 4% Lidocaine Solution Depth: to muscle and to bone Percentage of wound debrided: 100 Instrument Used: 3mm curette Tissue Removed: includes fibrous, devitalized, biofilm, callus and slough tissue Severity: Necrosis of Bone (Debrided to muscle level) Amount of bleeding with debridement: Mild Bleeding Controlled with: Pressure Patient tolerated procedure: Patient tolerated procedure well Additional Wound Wound debrided: Plantar fifth metatarsal head Laterality: Right Wound Grade/Stage: Contreras 1 Type of Debridement: Excisional debridement Anesthesia Used: 4% Lidocaine Solution Depth: in the subcutaneous layer Percentage of wound debrided: 100 Instrument Used: 3mm curette Tissue Removed: Includes fibrous, devitalized, biofilm, callus and slough tissue Severity: Fat Layer Exposed Amount of bleeding with debridement: Mild Bleeding Controlled with: Pressure Patient tolerated procedure: Patient tolerated procedure well Assessment/Plan Assessment/Plan (1) Chronic ulcer of right foot with fat layer exposed: CODE(S): L97.512 - Non-pressure chronic ulcer of other part of right foot with fat layer exposed (2) Non-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: CODE(S): L97.514 - Non-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 (3) Osteomyelitis: CODE(S): M86.9 - Osteomyelitis, unspecified QUALIFIERS: Osteomyelitis type: other acute Osteomyelitis location: foot Laterality: right Qualified Code(s): M86.171 - Other acute osteomyelitis, right ankle and foot (4) Uncontrolled diabetes mellitus: CODE(S): E11.65 - Type 2 diabetes mellitus with hyperglycemia QUALIFIERS: Diabetes mellitus type: other specified (including IZABELA) Glycemic state: with hyperglycemia Qualified Code(s): E13.65 - Other specified diabetes mellitus with hyperglycemia (5) Chronic kidney disease: CODE(S): N18.9 - Chronic kidney disease, unspecified QUALIFIERS: Chronic kidney disease stage: stage 3 (moderate) Chronic kidney disease stage 3 subtype: stage 3b (GFR 30-44) Qualified Code(s): N18.32 - Chronic kidney disease, stage 3b (6) Pneumonia due to COVID-19 virus: CODE(S): U07.1 - COVID-19; J12.89 - Other viral pneumonia (7) History of non-ST elevation myocardial infarction (NSTEMI): CODE(S): I25.2 - Old myocardial infarction (8) Chronic diastolic (congestive) heart failure: CODE(S): I50.32 - Chronic diastolic (congestive) heart failure (9) Venous insufficiency: CODE(S): I87.2 - Venous insufficiency (chronic) (peripheral) PLAN: Patient seen and examined Patient noted to have wound to right first ray amputation site and plantar fifth metatarsal head Patient noted to be follow-up from hospital visit patient underwent a right first ray amputation secondary to gas gangrene diabetes. Patient also noted to have osteomyelitis. Patient underwent surgery on 08/22/2020 for gas gangrene and right hallux diabetic foot ulceration. Patient clearance fragment of bone was noted to be positive for osteomyelitis growing Citrobacter, Proteus, Enterococcus, Prevotella. Patient was discharged from the hospital with home health care for wound VAC and IV antibiotics with a PICC line for vancomycin and Zosyn. Patient relates that he did not like to bother anyone so he asked if he can have the PICC line removed. The PICC line was removed the patient is now continuing on oral ant ibiotics per patient after discussion on the telephone with infectious disease. We will try to obtain the note to figure out what antibiotic patient is not taking. Patient also relates that he is not very fond of the wound VAC. Discussed patient the importance of the wound VAC as far as helping to granulate in the deep tissue. This especially put in due to the depth of the wound from the amputation. It is noted that the cord to the wound VAC was pressed up against the skin and created a red area. Discussed with patient need to advocate for himself until home health care to pad up the wound VAC cord. Patient did not bring wound VAC supplies with him today. Patient will restart wound VAC via home health care. Order sent to home health care. Patient to use hydrogel dressing to plantar fifth metatarsal head wound. Arterial studies from 08/22/2020 demonstrated Triphasic Doppler waveforms are noted at ankle level bilaterally. Pulse-volume recording waveform amplitudes are diminished at digital level on the right, but satisfactory at all other levels bilaterally. Resting ankle-brachial indices are normal bilaterally. The right digital-brachial index was not determined. The left digital-brachial index is normal. Venous studies from 08/22/2020 demonstrated Deep veins of the lower extremities are bilaterally patent and compressible segmentally. There is no evidence of deep vein thrombosis on either side. Valvular competence appears intact within the proximal deep venous systems bilaterally. The great saphenous veins appear bilaterally patent and compressible segmentally. Discussed importance of smoking cessation, blood sugar control, weight management, offloading, proper nutrition, and hygeine to optimize healing potential. Recent labs are significant for a CRP on 08/21/2020 of 208, and albumin on 05/12/2020 of 3.8, ESR on 08/21/2020 of 50, hemoglobin A1c on 08/22/2020 of 11.1%. Discussed importance of smoking cessation, blood sugar control, weight management, offloading, proper nutrition, and hygeine to optimize healing potential. Patient noted to have a surgical shoe for offloading purposes. 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 This would put significant wound pressure on his wounds which was delayed healing. Is also noted that patient is undergoing a significant deal of stress in his personal life given that he is undergoing a divorce. Discussed possibility of getting wound graft to help speed healing along once patient is eligible All questions answered Patient to follow-up in 1 week This note was generated with [employer] software. It may contain incorrect words, spelling, and punctuation that were not noted in checking the note before signing.
[2020-09-14 08:10] VITALS: BP 167/76; PULSE 82; RESP 16; TEMP 36.8; BMI 37.6
--- NOTE | 2020-09-15 08:54 | PCM.WC.PN ---
History of Present Illness Date of Service: 09/14/20 Chief Complaint: Right foot wound History of Wound: Patient is a follow-up from the hospital visit. Patient has significant medical history including diabetes, congestive heart failure, hypertension, obesity, venous insufficiency, history of NSTEMI and COVID-19. Patient was admitted for right great toe ulceration on 08/22/2020. 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 Patient then had wound VAC applied to the open wound. Patient also had IV line placed for infectious disease with treatment of Vanco and Zosyn until 10/03/2020. Patient relates that he wished to stop the IV antibiotics and is now taking Augmentin for [address] Nick. Patient cultures from surgery are noted to be positive for osteomyelitis. Patient following up from hospital visit for continued wound care. Progress of Wound: some improvement noted with more bone coverage noted Subjective Subjective Patient seen and examined resting comfortably. Patient denies any new pedal complaints. Patient denies any nausea, fever, chills, chest pain, shortness of breath, cough, streaking, purulence, vomiting. Objective Data Objective Data Vital Signs: Vital Signs Temp Pulse Resp BP 98.3 F 82 16 167/76 H 09/14/20 08:10 09/14/20 08:10 09/14/20 08:10 09/14/20 08:10 Oxygen Delivery Method Room Air Weight: 122.47 kg Body Mass Index (BMI) 37.6 Physical Exam Const alert and no apparent distress General Appearance: cooperative and comfortable Resp normal respiratory effort Effort and Inspection: able to speak in complete sentences Extremity normal capillary refill, no calf tenderness and no pedal edema General Extremity: no tenderness to palpation of joints or extremities and other findings Other Details: Capillary refill time less than 3 seconds noted to digits ; Negative for clubbing or cyanosis Skin General Skin Exam: atrophy and dry skin; Negative for ecchymosis, erythema, eschar, pallor or dermatitis Rashes: no rashes Wounds: wounds noted Wound Narrative: ulcers noted to right first ray amputation site down to the level of bone as well as plantar fifth metatarsal head down to level of fat and fascia. No malodor, erythema, purulence, streaking, fluctuation, crepitus, or other signs of infection. Skin is atrophic and hairless. Granular base. Hallux amputation site probes to bone. There is more bony coverage noted compared to last week. Mild maceration noted periwound improved from last week. Fifth metatarsal ulceration does not probe to bone. Dorsal right foot noted to have erythematous area consistent with pressure from wound VAC tube. No open wounds at this time. Will monitor area closely. No signs of infection. This area is noted to have slight improvement Neuro Gait (Neuro): antalgic and assistive device used Sensory Exam: extremities light-touch: decreased Motor Exam: strength 5/5 throughout Psych Appearance: appropriate Attitude: calm Debridement Note Debridement Note Post-Debridement Measurements and Additional Note: Post-Debridement Measurements/Treatment - Nurse 1 - General Ulcer Assessment Start: 09/07/20 08:14 Freq: Status: Active Protocol: RADHA Activity Type Activity Date Activity User E-Sign Co-Sign Detail Recorded Client Recorded Date Recorded By Document 09/07/20 08:14 [id number] 09/07/20 08:27 Document 09/14/20 08:10 [facility] [id number] 09/14/20 08:21 [facility] 09/07/20 09/14/20 08:14 08:10 - Today's Visit Information Type of service Initial Visit Follow-up Visit (Physician/JOB SPOTTER ) Arrival Mode Ambulatory Ambulatory Transfer Assistance None None Accompanied by self Patient Identification Verified (Name & Yes Yes ) Patient Requires Transmission-Based No No Precautions Finger Stick Blood Sugar(mg/dl) (if 147 147 indicated): Blood Sugar Stated by Stated by Patient Patient Height and Weight Height 5 ft 11 in Weight 122.47 kg Weight in Pounds 270.0 lbs Weight Measurement Method Stated by Patient Body Mass Index (BMI) 37.6 37.6 BMI Classification Obese Obese BSA - Chris 2.40 Vital Signs Temperature (97.8 F-99.1 F) 97.4 F L 98.3 F Temperature Source Temporal Temporal Pulse Rate (60-100) 75 82 Pulse Location Monitor Monitor Respiratory Rate (12-18) 18 16 Respiratory rate source Observation Observation Oxygen Delivery Method Room Air Room Air Blood Pressure (90/60-120/80) 136/77 H 167/76 H Blood Pressure Mean (mm Hg) 96 106 Source Monitor Monitor Position Sitting Sitting Blood Pressure Location Left Arm Right Arm Have you changed medications since your No last visit? Any new allergies or adverse reactions No Had a fall/change in ADL's that may No increase risk of falls Signs or symptoms of abuse and/or No neglect since last visit Have you been in the hospital since your No last visit? Has dressing in place as prescribed Yes Has compression in place as prescribed N/A Has offloadiing in place as prescribed Yes Experienced any changes in pain level or No management History Since Last Visit- (Skip if this is Patient's initial visit) Left Footwear Regular Shoe Regular Shoe Right Footwear Removable Cast Surgical Shoe Walker/Walking with pressure Boot relief insole Pain Scale: 0-10 Numeric Is Patient Pain Free? Yes Yes Communication Assessment Preferred language Telugu Customer Orders Clerk Required No Able to Read Yes Able to Write Yes Communication Tools None Caregiver Communication Skills No Impairment Impairment Right Hearing Abillity Normal Left Hearing Abillity Normal Visual Assistive Devices Glasses Teaching Assessment Preferences Verbal,Written, Audio/Visual, Demonstration Barriers to Learning None Readiness To Learn Excellent Willingness to Engage in Self Management High Activies Readiness to Engage in Self Management High Activities Anxiety Level Calm Cooperation Cooperative Perception Coherent Interest in Health Problem Asks Questions Education Importance Acknowledges Need Does Patient Smoke tobacco or other Yes substances Smoking Status Never smoker Is Patient Diabetic Yes Culture/Zoroastrian/Certified Activities Director Cultural/Zoroastrian Needs that may affect No Treatment Plan Would you allow our hospital slasher tender to No meet you for the purpose of spiritual/ emotional support? Certified Activities Director to contact place of hindu No Teaching: Wound Center *Welcome to the Wound Center -Person Taught Patient -Teaching Method Discussion -Response to teaching Verbalize understanding WC - Nurse 1 - General Ulcer Measurement Start: 09/07/20 08:14 Freq: Status: Active Protocol: Activity Type Activity Date Activity User E-Sign Co-Sign Detail Recorded Client Recorded Date Recorded By Document 09/07/20 08:14 [id number] 09/07/20 08:27 MW Document 09/14/20 08:10 [facility] [id number] 09/14/20 08:21 [facility] 09/07/20 09/14/20 08:14 08:10 Wound Center Nurse 1 2-right 5th metatarsal ulcer -Combined with other wound No -Current Size (cm) - Length 0.4 -Current Size (cm) - Width 0.3 -Current Size (cm) - Depth 0.1 -Total Square Cm 0.12 -Photo Taken No -Epithelialization Small 1-33% -Tunneling No -Undermining/Tunneling No -Circular Undermining No -Exudate Amt None Present -Wound Margin Flat & Intact -Granulation Amt Large (67-100%) -Granulation Quality [place] -Slough/Fibrin Yes -Necrosis Amt Small (1-33%) -Necrotic Tissue Type Adherent Slough -Texture (Cathie-wound Skin Appearance) Assessed,Callus ,Scarring -Moisture (Cathie-wound Skin Appearance) Assessed,Dry/ Scaly -Color (Cathie-wound Skin Appearance) Assessed -Temperature (Cathie-wound Skin No Abnormality Appearance) (Pt Warm) -Tenderness on Palpation (Cathie-wound No Skin Appearance) -Ulcer Cleansing SOAPY WATER -Foul Odor after Cleansing No -Anesthetic Used 4% Lidocaine Solution #1 RIGHT GREAT TOE AMP SITE -Combined with other wound No No -Current Size (cm) - Length 8.0 9.8 -Current Size (cm) - Width 5.0 4.1 -Current Size (cm) - Depth 1.8 0.2 -Total Square Cm 40.00 40.18 -Photo Taken Yes No -Epithelialization None Present None Present -Tunneling No No -Undermining/Tunneling No No -Circular Undermining No No -Exudate Amt Large Large -Exudate Type Serosanguineous Serosanguineous -Wound Margin Distinct, Distinct, Outline Outline Attached Attached -Granulation Amt Medium (34-66%) Medium (34-66%) -Granulation Quality [place] -Slough/Fibrin Yes Yes -Necrosis Amt Medium (34-66%) Medium (34-66%) -Necrotic Tissue Type Adherent Slough Adherent Slough -Structure Exposed N/A -Texture (Cathie-wound Skin Appearance) Assessed, Assessed, Scarring Scarring -Moisture (Cathie-wound Skin Appearance) Assessed, Assessed, Maceration Maceration -Color (Cathie-wound Skin Appearance) Assessed Assessed,Palor -Temperature (Cathie-wound Skin No Abnormality No Abnormality Appearance) (Pt Warm) (Pt Warm) -Tenderness on Palpation (Cathie-wound Yes No Skin Appearance) -Ulcer Cleansing SOAP AND WATER SOAPY WATER -Foul Odor after Cleansing No No -Anesthetic Used 4% Lidocaine 4% Lidocaine Solution Solution Lower Limb Edema Present Yes Right Calf (cm) 45.0 Right Ankle (cm) 27.5 Left Calf (cm) 42.0 Left Ankle (cm) 25.0 - Nurse 2 - General Ulcer CM Notes Start: 09/07/20 08:14 Freq: Status: Active Protocol: Activity Type Activity Date Activity User E-Sign Co-Sign Detail Recorded Client Recorded Date Recorded By Document 09/07/20 08:40 HEATHER [id number] 09/07/20 08:48 JF Document 09/14/20 08:49 JF [id number] 09/14/20 08:59 09/07/20 09/14/20 08:40 08:49 Wound Center Nurse 2 2-right 5th metatarsal ulcer -Time 08:44 08:49 -Correct Patient Yes Yes -Correct Side, Site, Position Yes Yes -Correct Procedure Yes Yes -Procedure Performed Yes Yes -Type of Procedure Debridement Debridement -Clinical Debridement Subcutaneous Subcutaneous -Tissue Removed Subcutaneous Subcutaneous -Post Debridement (cm) - Length 1.1 1.5 -Post Debridement (cm) - Width 0.8 0.7 -Post Debridement (cm) - Depth 0.1 0.1 -Total Square (Post) (cm) 0.88 1.05 -Area of Debridement (cm) - Length 1.1 1.5 -Area of Debridement (cm) - Width 0.8 0.7 -Total Square (Area) (cm) 0.88 1.05 -Tunneling No No -Undermining/Tunneling No No -Circular Undermining No No -Wound/Ulcer Outcome Not Healed Not Healed -Ulcer Cleansing Rinsed/ Rinsed/ Irrigated with Irrigated with Saline Saline -Foul Odor after Cleansing Yes, Due to No Product Use -Bioengineered Tissue No No -Bleeding Controlled with Pressure Pressure -Offloading Yes Yes -Type of Offloading Surgical Shoe Surgical Shoe -Treatment Response Procedure Procedure Tolerated Well Tolerated Well -Debridement - Subq, 1st 20sq cm Yes Yes #1 RIGHT GREAT TOE AMP SITE -Time 08:41 08:49 -Correct Patient Yes Yes -Correct Side, Site, Position Yes Yes -Correct Procedure Yes Yes -Procedure Performed Yes Yes -Type of Procedure Debridement Debridement -Clinical Debridement Muscle / Fascia Subcutaneous -Tissue Removed Muscle,Fascia Subcutaneous, Muscle,Fascia -Post Debridement (cm) - Length 10.6 9.1 -Post Debridement (cm) - Width 4.1 4.2 -Post Debridement (cm) - Depth 2.9 2.4 -Total Square (Post) (cm) 43.46 38.22 -Area of Debridement (cm) - Length 10.6 9.1 -Area of Debridement (cm) - Width 4.1 4.2 -Total Square (Area) (cm) 43.46 38.22 -Tunneling No No -Undermining/Tunneling No No -Circular Undermining No No -Wound/Ulcer Outcome Not Healed Not Healed -Ulcer Cleansing Rinsed/ Rinsed/ Irrigated with Irrigated with Saline Saline -Foul Odor after Cleansing No No -Bioengineered Tissue No No -Bleeding Controlled with Pressure Pressure -Offloading Yes Yes -Type of Offloading Surgical Shoe Surgical Shoe -Treatment Response Procedure Procedure Tolerated Well Tolerated Well -Debridement - Subq, 1st 20sq cm No No -Debridement - Muscle / Fascia, 1st Yes Yes 20sq cm -Debridement, Muscle/Fascia, ea addt'l 2 1 20sq cm or part thereof Pain Scale: 0-10 Numeric Is Patient Pain Free? Yes Yes WC - Nurse 3 - General Ulcer D/C NN Start: 09/07/20 08:14 Freq: Status: Active Protocol: Activity Type Activity Date Activity User E-Sign Co-Sign Detail Recorded Client Recorded Date Recorded By Document 09/07/20 09:00 MW Desktop 09/07/20 12:18 MW Document 09/14/20 09:04 DL [id number] 09/14/20 09:24 DL 09/07/20 09/14/20 09:00 09:04 Wound Care Nurse 3 2-right 5th metatarsal ulcer -Ulcer Cleansing Rinsed/ Wound Cleanser Irrigated with Saline -Foul Odor after Cleansing No No -Negative Pressure Wound Therapy N/A -Primary Dressing Applied C Hydrogel ($) -Other Dressing hydrogel -Primary Dressing Covered/Secured with Dry Gauze & Dry Gauze & Roll Gauze, Roll Gauze, Secured with Secured with Tape Tape -Other Covering doc #1 RIGHT GREAT TOE AMP SITE -Ulcer Cleansing Rinsed/ Wound Cleanser Irrigated with Saline -Foul Odor after Cleansing No No -Negative Pressure Wound Therapy N/A Continue -Setting (mmHg) 150 -Negative Pressure is Continuous -Primary Dressing Applied Aquacel AG 4x4 -Primary Dressing Covered/Secured with Dry Gauze & Roll Gauze, Secured with Tape -Other Covering ABD PAD -NPWT Application Charge ($) NPWT </= 50 sq cm -Collplant 4x4 1 Treatment Response Procedure Procedure Tolerated Well Tolerated Well Pain Scale: 0-10 Numeric Is Patient Pain Free? Yes Yes Teaching: Wound Center Dressing Your Wound -Person Taught Patient -Teaching Method Discussion -Response to teaching Verbalize understanding WC - Visit Discharge Discharge Condition Stable Stable Ambulatory Status Ambulatory Ambulatory Transportation Private Auto Private Auto Accompanied by SELF Medication Reconcilliation completed & No provided to patient/care provider Clinical Summary of Care Provided Yes Facility Type Home Health Orders Sent Yes Wound debrided: First ray amputation site Laterality: Right Wound Grade/Stage: Contreras 3 Type of Debridement: Excisional debridement Anesthesia Used: 4% Lidocaine Solution Depth: to muscle and to bone Percentage of wound debrided: 100 Instrument Used: 3mm curette Tissue Removed: includes fibrous, devitalized, biofilm, callus and slough tissue Severity: Necrosis of Muscle Amount of bleeding with debridement: Mild Bleeding Controlled with: Pressure Patient tolerated procedure: Patient tolerated procedure well Additional Wound Wound debrided: Plantar fifth metatarsal head Laterality: Right Wound Grade/Stage: Contreras 1 Type of Debridement: Excisional debridement Anesthesia Used: 4% Lidocaine Solution Depth: in the subcutaneous layer Percentage of wound debrided: 100 Instrument Used: 3mm curette Tissue Removed: Includes fibrous, devitalized, biofilm, callus and slough tissue Severity: Fat Layer Exposed Amount of bleeding with debridement: Mild Bleeding Controlled with: Pressure Patient tolerated procedure: Patient tolerated procedure well Assessment/Plan Assessment/Plan (1) Chronic ulcer of right foot with fat layer exposed: CODE(S): L97.512 - Non-pressure chronic ulcer of other part of right foot with fat layer exposed (2) Non-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: CODE(S): L97.514 - Non-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 (3) Osteomyelitis: CODE(S): M86.9 - Osteomyelitis, unspecified QUALIFIERS: Osteomyelitis type: other acute Osteomyelitis location: foot Laterality: right Qualified Code(s): M86.171 - Other acute osteomyelitis, right ankle and foot (4) Uncontrolled diabetes mellitus: CODE(S): E11.65 - Type 2 diabetes mellitus with hyperglycemia QUALIFIERS: Diabetes mellitus type: other specified (including IZABELA) Glycemic state: with hyperglycemia Qualified Code(s): E13.65 - Other specified diabetes mellitus with hyperglycemia (5) Chronic kidney disease: CODE(S): N18.9 - Chronic kidney disease, unspecified QUALIFIERS: Chronic kidney disease stage: stage 3 (moderate) Chronic kidney disease stage 3 subtype: stage 3b (GFR 30-44) Qualified Code(s): N18.32 - Chronic kidney disease, stage 3b (6) Pneumonia due to COVID-19 virus: CODE(S): U07.1 - COVID-19; J12.89 - Other viral pneumonia (7) History of non-ST elevation myocardial infarction (NSTEMI): CODE(S): I25.2 - Old myocardial infarction (8) Chronic diastolic (congestive) heart failure: CODE(S): I50.32 - Chronic diastolic (congestive) heart failure (9) Venous insufficiency: CODE(S): I87.2 - Venous insufficiency (chronic) (peripheral) PLAN: Patient seen and examined Patient noted to have wound to right first ray amputation site and plantar fifth metatarsal head. There is noted to be more bony coverage to the first ray amputation site compared to last week. 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 Patient also noted to have osteomyelitis. Patient underwent surgery on 08/22/2020 for gas gangrene and right hallux diabetic foot ulceration. Patient clearance fragment of bone was noted to be positive for osteomyelitis growing Citrobacter, Proteus, Enterococcus, Prevotella. Patient was discharged from the hospital with home health care for wound VAC and IV antibiotics with a PICC line for vancomycin and Zosyn. Patient relates that he did not like to bother anyone so he asked if he can have the PICC line removed. The PICC line was removed the patient is now continuing on Augmentin 500-125 mg twice daily for [address] Nick's note Patient also relates that he is not very fond of the wound VAC. Discussed patient the importance of the wound VAC as far as helping to granulate in the deep tissue. This especially put in due to the depth of the wound from the amputation. It is noted that the cord to the wound VAC was pressed up against the skin and created a red area. Discussed with patient need to advocate for himself until home health care to pad up the wound VAC cord. Wound VAC was reapplied today to the first amputation site. Patient to use hydrogel dressing to plantar fifth metatarsal head wound. Arterial studies from 08/22/2020 demonstrated Triphasic Doppler waveforms are noted at ankle level bilaterally. Pulse-volume recording waveform amplitudes are diminished at digital level on the right, but satisfactory at all other levels bilaterally. Resting ankle-brachial indices are normal bilaterally. The right digital-brachial index was not determined. The left digital-brachial index is normal. Venous studies from 08/22/2020 demonstrated Deep veins of the lower extremities are bilaterally patent and compressible segmentally. There is no evidence of deep vein thrombosis on either side. Valvular competence appears intact within the proximal deep venous systems bilaterally. The great saphenous veins appear bilaterally patent and compressible segmentally. Discussed importance of smoking cessation, blood sugar control, weight management, offloading, proper nutrition, and hygiene to optimize healing potential. Recent labs are significant for a CRP on 08/21/2020 of 208, and albumin on 05/12/2020 of 3.8, ESR on 08/21/2020 of 50, hemoglobin A1c on 08/22/2020 of 11.1%. Discussed importance of smoking cessation, blood sugar control, weight management, offloading, proper nutrition, and hygeine to optimize healing potential. Patient noted to have a surgical shoe for offloading purposes. 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 This would put significant wound pressure on his wounds which was delayed healing. Is also noted that patient is undergoing a significant deal of stress in his personal life given that he is undergoing a divorce. Discussed possibility of getting wound graft to help speed healing along once patient is eligible All questions answered Patient to follow-up in 1 week This note was generated with [employer] software. It may contain incorrect words, spelling, and punctuation that were not noted in checking the note before signing.
[2020-09-21 08:24] VITALS: BP 159/84; PULSE 99; RESP 16; TEMP 36.3; BMI 37.6
--- NOTE | 2020-09-21 09:05 | PN.PCM_ITS ---
History of Present Illness Date of Service: 09/21/20 Chief Complaint: Right foot wound History of Wound: Patient is a follow-up from the hospital visit. Patient has significant medical history including diabetes, congestive heart failure, hypertension, obesity, venous insufficiency, history of NSTEMI and COVID-19. Patient was admitted for right great toe ulceration on 08/22/2020. 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 Patient then had wound VAC applied to the open wound. Patient also had IV line placed for infectious disease with treatment of Vanco and Zosyn until 10/03/2020. Patient relates that he wished to stop the IV antibiotics and is now taking Augmentin for [address] Nick. Patient cultures from surgery are noted to be positive for osteomyelitis. Patient following up from hospital visit for continued wound care. Progress of Wound: some improvement noted with more bone coverage noted to hallux amputation site ulceration. Improvement noted to fifth metatarsal ulceration. There is still good amount of maceration noted. Anterior ankle is much improved Subjective Subjective Patient seen and examined resting comfortably. Patient denies any new pedal complaints. Patient denies any nausea, fever, chills, chest pain, shortness of breath, cough, streaking, purulence, vomiting. Patient relates that the wound VAC kept making noise and he had turned it off but he left the foam piece in place. This was last night. He has not turned it back on since. Objective Data Objective Data Vital Signs: Vital Signs Temp Pulse Resp BP 97.3 F L 99 16 159/84 H 09/21/20 08:24 09/21/20 08:24 09/21/20 08:24 09/21/20 08:24 Oxygen Delivery Method Room Air Weight: 122.47 kg Body Mass Index (BMI) 37.6 Physical Exam Const alert and no apparent distress General Appearance: cooperative and comfortable Resp normal respiratory effort Effort and Inspection: able to speak in complete sentences Extremity normal capillary refill, no calf tenderness and no pedal edema General Extremity: no tenderness to palpation of joints or extremities and other findings Other Details: Capillary refill time less than 3 seconds noted to digits ; Negative for clubbing or cyanosis Skin General Skin Exam: atrophy and dry skin; Negative for ecchymosis, erythema, eschar, pallor or dermatitis Rashes: no rashes Wounds: wounds noted Wound Narrative: ulcers noted to right first ray amputation site down to the level of bone as well as plantar fifth metatarsal head down to level of fat and fascia. No malodor, erythema, purulence, streaking, fluctuation, crepitus, or other signs of infection. Skin is atrophic and hairless. Granular base. Hallux amputation site probes to bone but is largely covered by granulation tissue at this point. There is less depth noted overall to this ulceration site. Moderate maceration noted periwound this is likely worsened due to patient being about 12 hours with the sponge of the wound VAC left in place but the suction turned off. Fifth metatarsal ulceration does not probe to bone and is to the level of the fascia with minor surrounding callus tissue noted without any signs of infection with granular base. Dorsal right foot noted to have erythematous area consistent with pressure from wound VAC tube. No open wounds at this time. This area shows marked improvement compared to last week. No signs of infection. DP and PT pulses diminished bilaterally Partial right first ray amputation. Neuro Gait (Neuro): antalgic and assistive device used Sensory Exam: extremities light-touch: decreased Motor Exam: strength 5/5 throughout Psych Appearance: appropriate Attitude: calm Debridement Note Debridement Note Post-Debridement Measurements and Additional Note: Post-Debridement Measurements/Treatment - Nurse 1 - General Ulcer Assessment Start: 09/07/20 08:14 Freq: Status: Active Protocol: .LOWEXT Activity Type Activity Date Activity User E-Sign Co-Sign Detail Recorded Client Recorded Date Recorded By Document 09/07/20 08:14 [id number] 09/07/20 08:27 Document 09/14/20 08:10 [facility] [id number] 09/14/20 08:21 [facility] Document 09/21/20 08:24 [facility] [id number] 09/21/20 08:34 [facility] 09/07/20 09/14/20 09/21/20 08:14 08:10 08:24 - Today's Visit Information Type of service Initial Visit Follow-up Visit Follow-up Visit (Physician/MANUFACTURING ENGINEER AUTOMOTIVE (Physician/MANUFACTURING ENGINEER AUTOMOTIVE ) ) Arrival Mode Ambulatory Ambulatory Ambulatory Transfer Assistance None None None Accompanied by self Patient Identification Verified (Name & Yes Yes Yes ) Patient Requires Transmission-Based No No No Precautions Finger Stick Blood Sugar(mg/dl) (if 147 147 147 indicated): Blood Sugar Stated by Stated by Stated by Patient Patient Patient Height and Weight Height 5 ft 11 in Weight 122.47 kg Weight in Pounds 270.0 lbs Weight Measurement Method Stated by Patient Body Mass Index (BMI) 37.6 37.6 37.6 BMI Classification Obese Obese Obese BSA - Chris 2.40 Vital Signs Temperature (97.8 F-99.1 F) 97.4 F L 98.3 F 97.3 F L Temperature Source Temporal Temporal Temporal Pulse Rate (60-100) 75 82 99 Pulse Location Monitor Monitor Monitor Respiratory Rate (12-18) 18 16 16 Respiratory rate source Observation Observation Observation Oxygen Delivery Method Room Air Room Air Room Air Blood Pressure (90/60-120/80) 136/77 H 167/76 H 159/84 H Blood Pressure Mean (mm Hg) 96 106 109 Source Monitor Monitor Monitor Position Sitting Sitting Sitting Blood Pressure Location Left Arm Right Arm Left Arm Have you changed medications since your No No last visit? Any new allergies or adverse reactions No No Had a fall/change in ADL's that may No No increase risk of falls Signs or symptoms of abuse and/or No No neglect since last visit Have you been in the hospital since your No No last visit? Has dressing in place as prescribed Yes No Has compression in place as prescribed N/A N/A Has offloadiing in place as prescribed Yes Yes Experienced any changes in pain level or No No management History Since Last Visit- (Skip if this is Patient's initial visit) Left Footwear Regular Shoe Regular Shoe Surgical Shoe with pressure relief insole Right Footwear Removable Cast Surgical Shoe Regular Shoe Walker/Walking with pressure Boot relief insole Pain Scale: 0-10 Numeric Is Patient Pain Free? Yes Yes Yes Communication Assessment Preferred language Amharic [employer] Efficiency Finance Manager Required No Able to Read Yes Able to Write Yes Communication Tools None Caregiver Communication Skills No Impairment Impairment Right Hearing Abillity Normal Left Hearing Abillity Normal Visual Assistive Devices Glasses Teaching Assessment Preferences Verbal,Written, Audio/Visual, Demonstration Barriers to Learning None Readiness To Learn Excellent Willingness to Engage in Self Management High Activies Readiness to Engage in Self Management High Activities Anxiety Level Calm Cooperation Cooperative Perception Coherent Interest in Health Problem Asks Questions Education Importance Acknowledges Need Does Patient Smoke tobacco or other Yes substances Smoking Status Never smoker Is Patient Diabetic Yes Culture/Jainism/Powder Room Attendant Cultural/Jainism Needs that may affect No Treatment Plan Would you allow our hospital film and video graphics designer to No meet you for the purpose of spiritual/ emotional support? Powder Room Attendant to contact place of cheondoism No Teaching: Wound Center *Welcome to the Wound Center -Person Taught Patient -Teaching Method Discussion -Response to teaching Verbalize understanding WC - Nurse 1 - General Ulcer Measurement Start: 09/07/20 08:14 Freq: Status: Active Protocol: Activity Type Activity Date Activity User E-Sign Co-Sign Detail Recorded Client Recorded Date Recorded By Document 09/07/20 08:14 MW [id number] 09/07/20 08:27 MW Document 09/14/20 08:10 BMF [id number] 09/14/20 08:21 BMF Document 09/21/20 08:24 BM [id number] 09/21/20 08:34 BMF 09/07/20 09/14/20 09/21/20 08:14 08:10 08:24 Wound Center Nurse 1 2-right 5th metatarsal ulcer -Combined with other wound No -Current Size (cm) - Length 0.4 1.5 -Current Size (cm) - Width 0.3 0.5 -Current Size (cm) - Depth 0.1 0.1 -Total Square Cm 0.12 0.75 -Photo Taken No No -Epithelialization Small 1-33% -Tunneling No -Undermining/Tunneling No -Circular Undermining No -Exudate Amt None Present Small -Wound Margin Flat & Intact Distinct, Outline Attached -Granulation Amt Large (67-100%) Large (67-100%) -Granulation Quality [place] Pale -Slough/Fibrin Yes -Necrosis Amt Small (1-33%) Small (1-33%) -Necrotic Tissue Type Adherent Slough Adherent Slough -Structure Exposed N/A -Texture (Cathie-wound Skin Appearance) Assessed,Callus Callus,Scarring ,Scarring -Moisture (Cathie-wound Skin Appearance) Assessed,Dry/ Dry/Scaly Scaly -Color (Cathie-wound Skin Appearance) Assessed Assessed -Temperature (Cathie-wound Skin No Abnormality No Abnormality Appearance) (Pt Warm) (Pt Warm) -Tenderness on Palpation (Cathie-wound No No Skin Appearance) -Ulcer Cleansing SOAPY WATER Wound Cleanser -Foul Odor after Cleansing No No -Anesthetic Used 4% Lidocaine 4% Lidocaine Solution Solution #1 RIGHT GREAT TOE AMP SITE -Combined with other wound No No -Current Size (cm) - Length 8.0 9.8 8.7 -Current Size (cm) - Width 5.0 4.1 4.1 -Current Size (cm) - Depth 1.8 0.2 2.1 -Total Square Cm 40.00 40.18 35.67 -Photo Taken Yes No No -Epithelialization None Present None Present -Tunneling No No -Undermining/Tunneling No No -Circular Undermining No No -Exudate Amt Large Large Medium -Exudate Type Serosanguineous Serosanguineous Serosanguineous -Wound Margin Distinct, Distinct, Thickened & Outline Outline Rolled Under Attached Attached -Granulation Amt Medium (34-66%) Medium (34-66%) Medium (34-66%) -Granulation Quality [place] Red -Slough/Fibrin Yes Yes -Necrosis Amt Medium (34-66%) Medium (34-66%) Medium (34-66%) -Necrotic Tissue Type Adherent Slough Adherent Slough Adherent Slough -Structure Exposed N/A N/A -Texture (Cathie-wound Skin Appearance) Assessed, Assessed, Callus, Scarring Scarring Localized Edema ,Scarring -Moisture (Cathie-wound Skin Appearance) Assessed, Assessed, Maceration Maceration Maceration -Color (Cathie-wound Skin Appearance) Assessed Assessed,Palor No Abnormality -Temperature (Cathie-wound Skin No Abnormality No Abnormality No Abnormality Appearance) (Pt Warm) (Pt Warm) (Pt Warm) -Tenderness on Palpation (Cathie-wound Yes No No Skin Appearance) -Ulcer Cleansing SOAP AND WATER SOAPY WATER Wound Cleanser -Foul Odor after Cleansing No No No -Anesthetic Used 4% Lidocaine 4% Lidocaine 4% Lidocaine Solution Solution Solution Lower Limb Edema Present Yes Right Calf (cm) 45.0 Right Ankle (cm) 27.5 Left Calf (cm) 42.0 Left Ankle (cm) 25.0 WC - Nurse 2 - General Ulcer CM Notes Start: 09/07/20 08:14 Freq: Status: Active Protocol: Activity Type Activity Date Activity User E-Sign Co-Sign Detail Recorded Client Recorded Date Recorded By Document 09/07/20 08:40 HEATHER [id number] 09/07/20 08:48 JF Document 09/14/20 08:49 HEATHER [id number] 09/14/20 08:59 JF Document 09/21/20 08:43 MW [id number] 09/21/20 08:50 MW 09/07/20 09/14/20 09/21/20 08:40 08:49 08:43 Wound Center Nurse 2 2-right 5th metatarsal ulcer -Time 08:44 08:49 08:44 -Correct Patient Yes Yes Yes -Correct Side, Site, Position Yes Yes Yes -Correct Procedure Yes Yes Yes -Procedure Performed Yes Yes Yes -Type of Procedure Debridement Debridement Debridement -Clinical Debridement Subcutaneous Subcutaneous Subcutaneous -Tissue Removed Subcutaneous Subcutaneous Subcutaneous -Post Debridement (cm) - Length 1.1 1.5 0.7 -Post Debridement (cm) - Width 0.8 0.7 0.2 -Post Debridement (cm) - Depth 0.1 0.1 0.2 -Total Square (Post) (cm) 0.88 1.05 0.14 -Area of Debridement (cm) - Length 1.1 1.5 0.7 -Area of Debridement (cm) - Width 0.8 0.7 0.2 -Total Square (Area) (cm) 0.88 1.05 0.14 -Tunneling No No No -Undermining/Tunneling No No No -Circular Undermining No No No -Wound/Ulcer Outcome Not Healed Not Healed Not Healed -Ulcer Cleansing Rinsed/ Rinsed/ Rinsed/ Irrigated with Irrigated with Irrigated with Saline Saline Saline -Foul Odor after Cleansing Yes, Due to No No Product Use -Bioengineered Tissue No No No -Bleeding Controlled with Pressure Pressure Pressure -Offloading Yes Yes No -Type of Offloading Surgical Shoe Surgical Shoe -Treatment Response Procedure Procedure Procedure Tolerated Well Tolerated Well Tolerated Well -Debridement - Subq, 1st 20sq cm Yes Yes Yes #1 RIGHT GREAT TOE AMP SITE -Time 08:41 08:49 08:45 -Correct Patient Yes Yes Yes -Correct Side, Site, Position Yes Yes Yes -Correct Procedure Yes Yes Yes -Procedure Performed Yes Yes -Type of Procedure Debridement Debridement Debridement -Clinical Debridement Muscle / Fascia Subcutaneous Muscle / Fascia -Tissue Removed Muscle,Fascia Subcutaneous, Muscle Muscle,Fascia -Post Debridement (cm) - Length 10.6 9.1 8.0 -Post Debridement (cm) - Width 4.1 4.2 4.5 -Post Debridement (cm) - Depth 2.9 2.4 1.6 -Total Square (Post) (cm) 43.46 38.22 36.00 -Area of Debridement (cm) - Length 10.6 9.1 8.0 -Area of Debridement (cm) - Width 4.1 4.2 4.5 -Total Square (Area) (cm) 43.46 38.22 36.00 -Tunneling No No No -Undermining/Tunneling No No No -Circular Undermining No No No -Wound/Ulcer Outcome Not Healed Not Healed Not Healed -Ulcer Cleansing Rinsed/ Rinsed/ Rinsed/ Irrigated with Irrigated with Irrigated with Saline Saline Saline -Foul Odor after Cleansing No No No -Bioengineered Tissue No No No -Bleeding Controlled with Pressure Pressure Pressure -Offloading Yes Yes No -Type of Offloading Surgical Shoe Surgical Shoe -Treatment Response Procedure Procedure Procedure Tolerated Well Tolerated Well Tolerated Well -Debridement - Subq, 1st 20sq cm No No -Debridement - Muscle / Fascia, 1st Yes Yes Yes 20sq cm -Debridement, Muscle/Fascia, ea addt'l 2 1 1 20sq cm or part thereof Pain Scale: 0-10 Numeric Is Patient Pain Free? Yes Yes Yes WC - Nurse 3 - General Ulcer D/C NN Start: 09/07/20 08:14 Freq: Status: Active Protocol: Activity Type Activity Date Activity User E-Sign Co-Sign Detail Recorded Client Recorded Date Recorded By Document 09/07/20 09:00 MW Desktop 09/07/20 12:18 MW Document 09/14/20 09:04 DL [id number] 09/14/20 09:24 DL 09/07/20 09/14/20 09:00 09:04 Wound Care Nurse 3 2-right 5th metatarsal ulcer -Ulcer Cleansing Rinsed/ Wound Cleanser Irrigated with Saline -Foul Odor after Cleansing No No -Negative Pressure Wound Therapy N/A -Primary Dressing Applied C Hydrogel ($) -Other Dressing hydrogel -Primary Dressing Covered/Secured with Dry Gauze & Dry Gauze & Roll Gauze, Roll Gauze, Secured with Secured with Tape Tape -Other Covering doc #1 RIGHT GREAT TOE AMP SITE -Ulcer Cleansing Rinsed/ Wound Cleanser Irrigated with Saline -Foul Odor after Cleansing No No -Negative Pressure Wound Therapy N/A Continue -Setting (mmHg) 150 -Negative Pressure is Continuous -Primary Dressing Applied Aquacel AG 4x4 -Primary Dressing Covered/Secured with Dry Gauze & Roll Gauze, Secured with Tape -Other Covering ABD PAD -NPWT Application Charge ($) NPWT </= 50 sq cm -Aquacel AG 4x4 1 Treatment Response Procedure Procedure Tolerated Well Tolerated Well Pain Scale: 0-10 Numeric Is Patient Pain Free? Yes Yes Teaching: Wound Center Dressing Your Wound -Person Taught Patient -Teaching Method Discussion -Response to teaching Verbalize understanding WC - Visit Discharge Discharge Condition Stable Stable Ambulatory Status Ambulatory Ambulatory Transportation Private Auto Private Auto Accompanied by SELF Medication Reconcilliation completed & No provided to patient/care provider Clinical Summary of Care Provided Yes Facility Type Home Health Orders Sent Yes Wound debrided: Plantar fifth metatarsal head Laterality: Right Wound Grade/Stage: Contreras 1 Type of Debridement: Excisional debridement Anesthesia Used: 4% Lidocaine Solution Depth: in the subcutaneous layer Percentage of wound debrided: 100 Instrument Used: 3mm curette Tissue Removed: includes fibrous, devitalized, biofilm, callus and slough tissue Severity: Fat Layer Exposed Amount of bleeding with debridement: Mild Bleeding Controlled with: Pressure Patient tolerated procedure: Patient tolerated procedure well Additional Wound Wound debrided: Right first ray amputation site Laterality: Right Wound Grade/Stage: Contreras 3 Type of Debridement: Excisional debridement Anesthesia Used: 4% Lidocaine Solution Depth: to bone (Debrided to muscle) Percentage of wound debrided: 100 Instrument Used: 3mm curette Tissue Removed: Includes fibrous, devitalized, biofilm, callus and slough tissue Severity: Necrosis of Bone (Debrided to muscle) Amount of bleeding with debridement: Mild Bleeding Controlled with: Pressure Patient tolerated procedure: Patient tolerated procedure well Assessment/Plan Assessment/Plan (1) Chronic ulcer of right foot with fat layer exposed: CODE(S): L97.512 - Non-pressure chronic ulcer of other part of right foot with fat layer exposed (2) Non-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: CODE(S): L97.514 - Non-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 (3) Osteomyelitis: CODE(S): M86.9 - Osteomyelitis, unspecified QUALIFIERS: Osteomyelitis type: other acute Osteomyelitis location: foot Laterality: right Qualified Code(s): M86.171 - Other acute osteomyelitis, right ankle and foot (4) Uncontrolled diabetes mellitus: CODE(S): E11.65 - Type 2 diabetes mellitus with hyperglycemia QUALIFIERS: Diabetes mellitus type: other specified (including IZABELA) Glycemic state: with hyperglycemia Qualified Code(s): E13.65 - Other specified diabetes mellitus with hyperglycemia (5) Chronic kidney disease: CODE(S): N18.9 - Chronic kidney disease, unspecified QUALIFIERS: Chronic kidney disease stage: stage 3 (moderate) Chronic kidney disease stage 3 subtype: stage 3b (GFR 30-44) Qualified Code(s): N18.32 - Chronic kidney disease, stage 3b (6) Pneumonia due to COVID-19 virus: CODE(S): U07.1 - COVID-19; J12.89 - Other viral pneumonia (7) History of non-ST elevation myocardial infarction (NSTEMI): CODE(S): I25.2 - Old myocardial infarction (8) Chronic diastolic (congestive) heart failure: CODE(S): I50.32 - Chronic diastolic (congestive) heart failure (9) Venous insufficiency: CODE(S): I87.2 - Venous insufficiency (chronic) (peripheral) PLAN: Patient seen and examined Patient noted to have wound to right first ray amputation site and plantar fifth metatarsal head. Wounds are noted to be improved. There is noted to be more bony coverage to the first ray amputation site compared to last week. Patient noted to have turned off his wound VAC last night without removal of the sponge stating that it is making noise and he cannot sleep. Discussed with the patient that if this happens he needs to remove the entirety of the wound VAC in place a dry sterile dressing on top. Discussed that leaving the sponge part of the wound VAC in place without the vacuum suction will only make the wound worse. Discussed that the wound VAC is helping him and there is improvement noted to his wound from use of the wound VAC. Patient is showing frustration with not being completely healed after a month. Discussed patient at length that the type of wound that he had it is likely can take a couple months to fill in completely given the extent of the wound. Discussed that we are trying everything we can to speed up this process. Discussed that as we have now reached 1 month we can apply for wound graft to further help speed up the healing process. 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 Patient also noted to have osteomyelitis. Patient underwent surgery on 08/22/2020 for gas gangrene and right hallux diabetic foot ulceration. Patient clearance fragment of bone was noted to be positive for osteomyelitis growing Citrobacter, Proteus, Enterococcus, Prevotella. Patient was discharged from the hospital with home health care for wound VAC and IV antibiotics with a PICC line for vancomycin and Zosyn. Patient relates that he did not like to bother anyone so he asked if he can have the PICC line removed. The PICC line was removed the patient is now continuing on Augmentin 500-125 mg twice daily for [address] Nick's note Patient also relates that he is not very fond of the wound VAC. Discussed patient the importance of the wound VAC as far as helping to granulate in the deep tissue. This especially helps to fill in the depth of the wound from the amputation. It is noted that the cord to the wound VAC was pressed up against the skin and created a red area. Discussed with patient need to advocate for himself until home health care to pad up the wound VAC cord. This area is much improved Wound VAC was reapplied today to the first amputation site. Patient to use hydrogel dressing to plantar fifth metatarsal head wound. Arterial studies from 08/22/2020 demonstrated Triphasic Doppler waveforms are noted at ankle level bilaterally. Pulse-volume recording waveform amplitudes are diminished at digital level on the right, but satisfactory at all other levels bilaterally. Resting ankle-brachial indices are normal bilaterally. The right digital-brachial index was not determined. The left digital-brachial index is normal. Venous studies from 08/22/2020 demonstrated Deep veins of the lower extremities are bilaterally patent and compressible segmentally. There is no evidence of deep vein thrombosis on either side. Valvular competence appears intact within the proximal deep venous systems bilaterally. The great saphenous veins appear bilaterally patent and compressible segmentally. Discussed importance of smoking cessation, blood sugar control, weight management, offloading, proper nutrition, and hygiene to optimize healing potential. Recent labs are significant for a CRP on 08/21/2020 of 208, and albumin on 05/12/2020 of 3.8, ESR on 08/21/2020 of 50, hemoglobin A1c on 08/22/2020 of 11.1%. Discussed importance of smoking cessation, blood sugar control, weight management, offloading, proper nutrition, and hygeine to optimize healing potential. Patient noted to have a surgical shoe for offloading purposes. 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 This would put significant wound pressure on his wounds which was delayed healing. Patient relates that he needs to have an income and that he is likely going to go back to work against my advice. Is also noted that patient is undergoing a significant deal of stress in his personal life given that he is undergoing a divorce. We will begin process of up application for TheraSkin skin grafts. To continue wound VAC therapy in the interim. All questions answered Patient to follow-up in 1 week This note was generated with [employer] dictation software. It may contain incorrect words, spelling, and punctuation that were not noted in checking the note before signing.
[2020-09-28 08:07] VITALS: BP 183/87; PULSE 78; RESP 22; TEMP 36.5; BMI 37.6
--- NOTE | 2020-09-28 08:43 | PN.PCM_ITS ---
History of Present Illness Date of Service: 09/28/20 Chief Complaint: Right foot wound History of Wound: Patient is a follow-up from the hospital visit. Patient has significant medical history including diabetes, congestive heart failure, hypertension, obesity, venous insufficiency, history of NSTEMI and COVID-19. Patient was admitted for right great toe ulceration on 08/22/2020. 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 Patient then had wound VAC applied to the open wound. Patient also had IV line placed for infectious disease with treatment of Vanco and Zosyn until 10/03/2020. Patient relates that he wished to stop the IV antibiotics and is now taking Augmentin for [address] Nick. Patient cultures from surgery are noted to be positive for osteomyelitis. Patient following up from hospital visit for continued wound care. Progress of Wound: Improvement noted to amputation site with complete bone coverage now and increasing granulation tissue present. Plantar fifth metatarsal wound is stable. No signs of infection. Subjective Subjective Patient seen and examined resting comfortably. Patient denies any new pedal complaints. Patient denies any nausea, fever, chills, chest pain, shortness of breath, cough, streaking, purulence, vomiting. Patient relates some alarming on the wound VAC but was able to get seal again Objective Data Objective Data Vital Signs: Vital Signs Temp Pulse Resp BP 97.7 F L 78 22 H 183/87 H 09/28/20 08:07 09/28/20 08:07 09/28/20 08:07 09/28/20 08:07 Oxygen Delivery Method Room Air Weight: 122.47 kg Body Mass Index (BMI) 37.6 Physical Exam Const alert and no apparent distress General Appearance: cooperative and comfortable Resp normal respiratory effort Effort and Inspection: able to speak in complete sentences Extremity normal capillary refill, no calf tenderness and no pedal edema General Extremity: no tenderness to palpation of joints or extremities and other findings Other Details: Capillary refill time less than 3 seconds noted to digits ; Negative for clubbing or cyanosis Skin General Skin Exam: atrophy and dry skin; Negative for ecchymosis, erythema, eschar, pallor or dermatitis Rashes: no rashes Wounds: wounds noted Wound Narrative: ulcers noted to right first ray amputation site down to the level of muscle as well as plantar fifth metatarsal head down to level of fat and fascia. No malodor, erythema, purulence, streaking, fluctuation, crepitus, or other signs of infection. Skin is atrophic and hairless. Granular base. Hallux amputation site probes is not completely covered by granulation tissue with increasing depth filling in. There is less depth noted overall to this ulceration site. Fifth metatarsal ulceration does not probe to bone and is to the level of the fascia without any signs of infection with granular base. Dorsal right foot noted to have erythematous area consistent with pressure from wound VAC tube. No open wounds at this time. This area shows marked improvement compared to last week. No signs of infection. DP and PT pulses diminished bilaterally Partial right first ray amputation. Neuro Gait (Neuro): antalgic and assistive device used Sensory Exam: extremities light-touch: decreased Motor Exam: strength 5/5 throughout Psych Appearance: appropriate Attitude: calm Debridement Note Debridement Note Post-Debridement Measurements and Additional Note: Post-Debridement Measurements/Treatment - Nurse 1 - General Ulcer Assessment Start: 09/07/20 08:14 Freq: Status: Active Protocol: LUC.CINTHIA Activity Type Activity Date Activity User E-Sign Co-Sign Detail Recorded Client Recorded Date Recorded By Document 09/07/20 08:14 MW [id number] 09/07/20 08:27 MW Document 09/14/20 08:10 [facility] [id number] 09/14/20 08:21 [facility] Document 09/21/20 08:24 [facility] [id number] 09/21/20 08:34 [facility] Document 09/28/20 08:07 DL [id number] 09/28/20 08:20 DL 09/07/20 09/14/20 09/21/20 08:14 08:10 08:24 - Today's Visit Information Type of service Initial Visit Follow-up Visit Follow-up Visit (Physician/MUD CLEANER OPERATOR (Physician/MUD CLEANER OPERATOR ) ) Arrival Mode Ambulatory Ambulatory Ambulatory Transfer Assistance None None None Accompanied by self Patient Identification Verified (Name & Yes Yes Yes ) Patient Requires Transmission-Based No No No Precautions Finger Stick Blood Sugar(mg/dl) (if 147 147 147 indicated): Blood Sugar Stated by Stated by Stated by Patient Patient Patient Height and Weight Height 5 ft 11 in Weight 122.47 kg Weight in Pounds 270.0 lbs Weight Measurement Method Stated by Patient Body Mass Index (BMI) 37.6 37.6 37.6 BMI Classification Obese Obese Obese BSA - Chris 2.40 Vital Signs Temperature (97.8 F-99.1 F) 97.4 F L 98.3 F 97.3 F L Temperature Source Temporal Temporal Temporal Pulse Rate (60-100) 75 82 99 Pulse Location Monitor Monitor Monitor Respiratory Rate (12-18) 18 16 16 Respiratory rate source Observation Observation Observation Oxygen Delivery Method Room Air Room Air Room Air Blood Pressure (90/60-120/80) 136/77 H 167/76 H 159/84 H Blood Pressure Mean (mm Hg) 96 106 109 Source Monitor Monitor Monitor Position Sitting Sitting Sitting Blood Pressure Location Left Arm Right Arm Left Arm Have you changed medications since your No No last visit? Any new allergies or adverse reactions No No Had a fall/change in ADL's that may No No increase risk of falls Signs or symptoms of abuse and/or No No neglect since last visit Have you been in the hospital since your No No last visit? Has dressing in place as prescribed Yes No Has compression in place as prescribed N/A N/A Has offloadiing in place as prescribed Yes Yes Experienced any changes in pain level or No No management History Since Last Visit- (Skip if this is Patient's initial visit) Left Footwear Regular Shoe Regular Shoe Surgical Shoe with pressure relief insole Right Footwear Removable Cast Surgical Shoe Regular Shoe Walker/Walking with pressure Boot relief insole Pain Scale: 0-10 Numeric Is Patient Pain Free? Yes Yes Yes Communication Assessment Preferred language Turkmen Monotype Keyboard Operator Required No Able to Read Yes Able to Write Yes Communication Tools None Caregiver Communication Skills No Impairment Impairment Right Hearing Abillity Normal Left Hearing Abillity Normal Visual Assistive Devices Glasses Teaching Assessment Preferences Verbal,Written, Audio/Visual, Demonstration Barriers to Learning None Readiness To Learn Excellent Willingness to Engage in Self Management High Activies Readiness to Engage in Self Management High Activities Anxiety Level Calm Cooperation Cooperative Perception Coherent Interest in Health Problem Asks Questions Education Importance Acknowledges Need Does Patient Smoke tobacco or other Yes substances Smoking Status Never smoker Is Patient Diabetic Yes Culture/Yarsani/Line Painting Machine Operator Cultural/Yarsani Needs that may affect No Treatment Plan Would you allow our hospital prestressed concrete laborer to No meet you for the purpose of spiritual/ emotional support? Line Painting Machine Operator to contact place of church No Teaching: Wound Center *Welcome to the Wound Center -Person Taught Patient -Teaching Method Discussion -Response to teaching Verbalize understanding 09/28/20 08:07 WC - Today's Visit Information Type of service Follow-up Visit (Physician/MUD CLEANER OPERATOR ) Arrival Mode Ambulatory Transfer Assistance None Accompanied by Patient Identification Verified (Name & Yes ) Patient Requires Transmission-Based No Precautions Finger Stick Blood Sugar(mg/dl) (if 124 indicated): Blood Sugar Stated by Patient Height and Weight Height Weight Weight in Pounds Weight Measurement Method Body Mass Index (BMI) 37.6 BMI Classification Obese [facility] - Chris Vital Signs Temperature (97.8 F-99.1 F) 97.7 F L Temperature Source Temporal Pulse Rate (60-100) 78 Pulse Location Monitor Respiratory Rate (12-18) 22 H Respiratory rate source Observation Oxygen Delivery Method Blood Pressure (90/60-120/80) 183/87 H Blood Pressure Mean (mm Hg) 119 Source Monitor Position Blood Pressure Location Have you changed medications since your No last visit? Any new allergies or adverse reactions No Had a fall/change in ADL's that may No increase risk of falls Signs or symptoms of abuse and/or neglect since last visit Have you been in the hospital since your No last visit? Has dressing in place as prescribed Yes Has compression in place as prescribed Yes Has offloadiing in place as prescribed Yes Experienced any changes in pain level or No management History Since Last Visit- (Skip if this is Patient's initial visit) Left Footwear Right Footwear Surgical Shoe with pressure relief insole Pain Scale: 0-10 Numeric Is Patient Pain Free? Yes Communication Assessment Preferred pressing machine tender Required Able to Read Able to Write Communication Tools Caregiver Communication Skills Impairment Right Hearing Abillity Left Hearing Abillity Visual Assistive Devices Teaching Assessment Preferences Barriers to Learning Readiness To Learn Willingness to Engage in Self Management Activies Readiness to Engage in Self Management Activities Anxiety Level Cooperation Perception Interest in Health Problem Education Importance Does Patient Smoke tobacco or other substances Smoking Status Is Patient Diabetic Culture/Yarsani/Line Painting Machine Operator Cultural/Yarsani Needs that may affect Treatment Plan Would you allow our hospital prestressed concrete laborer to meet you for the purpose of spiritual/ emotional support? Line Painting Machine Operator to contact place of church Teaching: Wound Center *Welcome to the Wound Center -Person Taught -Teaching Method -Response to teaching - Nurse 1 - General Ulcer Measurement Start: 09/07/20 08:14 Freq: Status: Active Protocol: Activity Type Activity Date Activity User E-Sign Co-Sign Detail Recorded Client Recorded Date Recorded By Document 09/07/20 08:14 MW [id number] 09/07/20 08:27 MW Document 09/14/20 08:10 [facility] [id number] 09/14/20 08:21 BMF Document 09/21/20 08:24 BMF [id number] 09/21/20 08:34 BMF Document 09/28/20 08:07 DL [id number] 09/28/20 08:20 DL 09/07/20 09/14/20 09/21/20 08:14 08:10 08:24 Wound Center Nurse 1 2-right 5th metatarsal ulcer -Combined with other wound No -Current Size (cm) - Length 0.4 1.5 -Current Size (cm) - Width 0.3 0.5 -Current Size (cm) - Depth 0.1 0.1 -Total Square Cm 0.12 0.75 -Photo Taken No No -Epithelialization Small 1-33% -Tunneling No -Undermining/Tunneling No -Circular Undermining No -Exudate Amt None Present Small -Wound Margin Flat & Intact Distinct, Outline Attached -Granulation Amt Large (67-100%) Large (67-100%) -Granulation Quality [place] Pale -Slough/Fibrin Yes -Necrosis Amt Small (1-33%) Small (1-33%) -Necrotic Tissue Type Adherent Slough Adherent Slough -Structure Exposed N/A -Texture (Cathie-wound Skin Appearance) Assessed,Callus Callus,Scarring ,Scarring -Moisture (Cathie-wound Skin Appearance) Assessed,Dry/ Dry/Scaly Scaly -Color (Cathie-wound Skin Appearance) Assessed Assessed -Temperature (Cathie-wound Skin No Abnormality No Abnormality Appearance) (Pt Warm) (Pt Warm) -Tenderness on Palpation (Cathie-wound No No Skin Appearance) -Ulcer Cleansing SOAPY WATER Wound Cleanser -Foul Odor after Cleansing No No -Anesthetic Used 4% Lidocaine 4% Lidocaine Solution Solution #1 RIGHT GREAT TOE AMP SITE -Combined with other wound No No -Current Size (cm) - Length 8.0 9.8 8.7 -Current Size (cm) - Width 5.0 4.1 4.1 -Current Size (cm) - Depth 1.8 0.2 2.1 -Total Square Cm 40.00 40.18 35.67 -Photo Taken Yes No No -Epithelialization None Present None Present -Tunneling No No -Undermining/Tunneling No No -Circular Undermining No No -Exudate Amt Large Large Medium -Exudate Type Serosanguineous Serosanguineous Serosanguineous -Wound Margin Distinct, Distinct, Thickened & Outline Outline Rolled Under Attached Attached -Granulation Amt Medium (34-66%) Medium (34-66%) Medium (34-66%) -Granulation Quality [place] Red -Slough/Fibrin Yes Yes -Necrosis Amt Medium (34-66%) Medium (34-66%) Medium (34-66%) -Necrotic Tissue Type Adherent Slough Adherent Slough Adherent Slough -Structure Exposed N/A N/A -Texture (Cathie-wound Skin Appearance) Assessed, Assessed, Callus, Scarring Scarring Localized Edema ,Scarring -Moisture (Cathie-wound Skin Appearance) Assessed, Assessed, Maceration Maceration Maceration -Color (Cathie-wound Skin Appearance) Assessed Assessed,Palor No Abnormality -Temperature (Cathie-wound Skin No Abnormality No Abnormality No Abnormality Appearance) (Pt Warm) (Pt Warm) (Pt Warm) -Tenderness on Palpation (Cathie-wound Yes No No Skin Appearance) -Ulcer Cleansing SOAP AND WATER SOAPY WATER Wound Cleanser -Foul Odor after Cleansing No No No -Anesthetic Used 4% Lidocaine 4% Lidocaine 4% Lidocaine Solution Solution Solution Lower Limb Edema Present Yes Right Calf (cm) 45.0 Right Ankle (cm) 27.5 Left Calf (cm) 42.0 Left Ankle (cm) 25.0 09/28/20 08:07 Wound Center Nurse 1 2-right 5th metatarsal ulcer -Combined with other wound -Current Size (cm) - Length 0.1 -Current Size (cm) - Width 0.1 -Current Size (cm) - Depth 0.1 -Total Square Cm 0.01 -Photo Taken No -Epithelialization -Tunneling -Undermining/Tunneling -Circular Undermining -Exudate Amt None Present -Wound Margin Thickened -Granulation Amt Large (67-100%) -Granulation Quality Pale -Slough/Fibrin -Necrosis Amt None Present (0 %) -Necrotic Tissue Type -Structure Exposed None/Limited to Skin Breakdown -Texture (Cathie-wound Skin Appearance) Callus -Moisture (Cathie-wound Skin Appearance) Dry/Scaly -Color (Cathie-wound Skin Appearance) No Abnormality -Temperature (Cathie-wound Skin No Abnormality Appearance) (Pt Warm) -Tenderness on Palpation (Cathie-wound No Skin Appearance) -Ulcer Cleansing -Foul Odor after Cleansing No -Anesthetic Used 4% Lidocaine Solution #1 RIGHT GREAT TOE AMP SITE -Combined with other wound -Current Size (cm) - Length 6.4 -Current Size (cm) - Width 4 -Current Size (cm) - Depth 3 -Total Square Cm 25.6 -Photo Taken No -Epithelialization -Tunneling -Undermining/Tunneling -Circular Undermining -Exudate Amt Medium -Exudate Type Serosanguineous -Wound Margin Distinct, Outline Attached -Granulation Amt Large (67-100%) -Granulation Quality Red -Slough/Fibrin -Necrosis Amt Medium (34-66%) -Necrotic Tissue Type Adherent Slough -Structure Exposed N/A -Texture (Cathie-wound Skin Appearance) Scarring -Moisture (Cathie-wound Skin Appearance) Maceration -Color (Cathie-wound Skin Appearance) No Abnormality -Temperature (Cathie-wound Skin Appearance) -Tenderness on Palpation (Cathie-wound Yes Skin Appearance) -Ulcer Cleansing Wound Cleanser -Foul Odor after Cleansing No -Anesthetic Used 4% Lidocaine Solution Lower Limb Edema Present Right Calf (cm) Right Ankle (cm) Left Calf (cm) Left Ankle (cm) WC - Nurse 2 - General Ulcer CM Notes Start: 09/07/20 08:14 Freq: Status: Active Protocol: Activity Type Activity Date Activity User E-Sign Co-Sign Detail Recorded Client Recorded Date Recorded By Document 09/07/20 08:40 [id number] 09/07/20 08:48 Document 09/14/20 08:49 [id number] 09/14/20 08:59 Document 09/21/20 08:43 MW [id number] 09/21/20 08:50 MW Document 09/28/20 08:34 [id number] 09/28/20 08:41 JF 09/07/20 09/14/20 09/21/20 08:40 08:49 08:43 Wound Center Nurse 2 2-right 5th metatarsal ulcer -Time 08:44 08:49 08:44 -Correct Patient Yes Yes Yes -Correct Side, Site, Position Yes Yes Yes -Correct Procedure Yes Yes Yes -Procedure Performed Yes Yes Yes -Type of Procedure Debridement Debridement Debridement -Clinical Debridement Subcutaneous Subcutaneous Subcutaneous -Tissue Removed Subcutaneous Subcutaneous Subcutaneous -Post Debridement (cm) - Length 1.1 1.5 0.7 -Post Debridement (cm) - Width 0.8 0.7 0.2 -Post Debridement (cm) - Depth 0.1 0.1 0.2 -Total Square (Post) (cm) 0.88 1.05 0.14 -Area of Debridement (cm) - Length 1.1 1.5 0.7 -Area of Debridement (cm) - Width 0.8 0.7 0.2 -Total Square (Area) (cm) 0.88 1.05 0.14 -Tunneling No No No -Undermining/Tunneling No No No -Circular Undermining No No No -Wound/Ulcer Outcome Not Healed Not Healed Not Healed -Ulcer Cleansing Rinsed/ Rinsed/ Rinsed/ Irrigated with Irrigated with Irrigated with Saline Saline Saline -Foul Odor after Cleansing Yes, Due to No No Product Use -Bioengineered Tissue No No No -Bleeding Controlled with Pressure Pressure Pressure -Offloading Yes Yes No -Type of Offloading Surgical Shoe Surgical Shoe -Treatment Response Procedure Procedure Procedure Tolerated Well Tolerated Well Tolerated Well -Debridement - Subq, 1st 20sq cm Yes Yes Yes #1 RIGHT GREAT TOE AMP SITE -Time 08:41 08:49 08:45 -Correct Patient Yes Yes Yes -Correct Side, Site, Position Yes Yes Yes -Correct Procedure Yes Yes Yes -Procedure Performed Yes Yes -Type of Procedure Debridement Debridement Debridement -Clinical Debridement Muscle / Fascia Subcutaneous Muscle / Fascia -Tissue Removed Muscle,Fascia Subcutaneous, Muscle Muscle,Fascia -Post Debridement (cm) - Length 10.6 9.1 8.0 -Post Debridement (cm) - Width 4.1 4.2 4.5 -Post Debridement (cm) - Depth 2.9 2.4 1.6 -Total Square (Post) (cm) 43.46 38.22 36.00 -Area of Debridement (cm) - Length 10.6 9.1 8.0 -Area of Debridement (cm) - Width 4.1 4.2 4.5 -Total Square (Area) (cm) 43.46 38.22 36.00 -Tunneling No No No -Undermining/Tunneling No No No -Circular Undermining No No No -Wound/Ulcer Outcome Not Healed Not Healed Not Healed -Ulcer Cleansing Rinsed/ Rinsed/ Rinsed/ Irrigated with Irrigated with Irrigated with Saline Saline Saline -Foul Odor after Cleansing No No No -Bioengineered Tissue No No No -Bleeding Controlled with Pressure Pressure Pressure -Offloading Yes Yes No -Type of Offloading Surgical Shoe Surgical Shoe -Treatment Response Procedure Procedure Procedure Tolerated Well Tolerated Well Tolerated Well -Debridement - Subq, 1st 20sq cm No No -Debridement, SubQ, ea addt'l 20sq cm or part thereof -Debridement - Muscle / Fascia, 1st Yes Yes Yes 20sq cm -Debridement, Muscle/Fascia, ea addt'l 2 1 1 20sq cm or part thereof Pain Scale: 0-10 Numeric Is Patient Pain Free? Yes Yes Yes 09/28/20 08:34 Wound Center Nurse 2 2-right 5th metatarsal ulcer -Time 08:39 -Correct Patient Yes -Correct Side, Site, Position Yes -Correct Procedure Yes -Procedure Performed Yes -Type of Procedure Debridement -Clinical Debridement Subcutaneous -Tissue Removed Subcutaneous -Post Debridement (cm) - Length 0.8 -Post Debridement (cm) - Width 0.3 -Post Debridement (cm) - Depth 0.1 -Total Square (Post) (cm) 0.24 -Area of Debridement (cm) - Length 0.8 -Area of Debridement (cm) - Width 0.3 -Total Square (Area) (cm) 0.24 -Tunneling No -Undermining/Tunneling No -Circular Undermining No -Wound/Ulcer Outcome Not Healed -Ulcer Cleansing Rinsed/ Irrigated with Saline -Foul Odor after Cleansing No -Bioengineered Tissue No -Bleeding Controlled with Pressure -Offloading Yes -Type of Offloading Surgical Shoe -Treatment Response Procedure Tolerated Well -Debridement - Subq, 1st 20sq cm No #1 RIGHT GREAT TOE AMP SITE -Time 08:35 -Correct Patient Yes -Correct Side, Site, Position Yes -Correct Procedure Yes -Procedure Performed Yes -Type of Procedure Debridement -Clinical Debridement Subcutaneous -Tissue Removed Subcutaneous -Post Debridement (cm) - Length 9 -Post Debridement (cm) - Width 3.8 -Post Debridement (cm) - Depth 1.8 -Total Square (Post) (cm) 34.2 -Area of Debridement (cm) - Length 9 -Area of Debridement (cm) - Width 3.8 -Total Square (Area) (cm) 34.2 -Tunneling No -Undermining/Tunneling No -Circular Undermining No -Wound/Ulcer Outcome Not Healed -Ulcer Cleansing Rinsed/ Irrigated with Saline -Foul Odor after Cleansing Yes, Due to Product Use -Bioengineered Tissue No -Bleeding Controlled with Pressure -Offloading Yes -Type of Offloading Surgical Shoe -Treatment Response Procedure Tolerated Well -Debridement - Subq, 1st 20sq cm Yes -Debridement, SubQ, ea addt'l 20sq cm 1 or part thereof -Debridement - Muscle / Fascia, 1st 20sq cm -Debridement, Muscle/Fascia, ea addt'l 20sq cm or part thereof Pain Scale: 0-10 Numeric Is Patient Pain Free? Yes WC - Nurse 3 - General Ulcer D/C NN Start: 09/07/20 08:14 Freq: Status: Active Protocol: Activity Type Activity Date Activity User E-Sign Co-Sign Detail Recorded Client Recorded Date Recorded By Document 09/07/20 09:00 MW Desktop 09/07/20 12:18 MW Document 09/14/20 09:04 DL [id number] 09/14/20 09:24 DL Document 09/21/20 11:45 DL [id number] 09/21/20 11:46 DL 09/07/20 09/14/20 09/21/20 09:00 09:04 11:45 Wound Care Nurse 3 2-right 5th metatarsal ulcer -Ulcer Cleansing Rinsed/ Wound Cleanser Rinsed/ Irrigated with Irrigated with Saline Saline -Foul Odor after Cleansing No No No -Negative Pressure Wound Therapy N/A -Primary Dressing Applied C Hydrogel ($) -Other Dressing hydrogel hydrogel -Primary Dressing Covered/Secured with Dry Gauze & Dry Gauze & Dry Gauze, Roll Gauze, Roll Gauze, Secured with Secured with Secured with Tape Tape Tape -Other Covering doc #1 RIGHT GREAT TOE AMP SITE -Ulcer Cleansing Rinsed/ Wound Cleanser Wound Cleanser Irrigated with Saline -Foul Odor after Cleansing No No No -Negative Pressure Wound Therapy N/A Continue Continue -Setting (mmHg) 150 150 -Negative Pressure is Continuous Continuous -Primary Dressing Applied Aquacel AG 4x4 -Primary Dressing Covered/Secured with Dry Gauze & Roll Gauze, Secured with Tape -Other Covering ABD PAD doc -NPWT Application Charge ($) NPWT </= 50 sq NPWT </= 50 sq cm cm -CSDN 4x4 1 Treatment Response Procedure Procedure Procedure Tolerated Well Tolerated Well Tolerated Well Pain Scale: 0-10 Numeric Is Patient Pain Free? Yes Yes Yes Teaching: Wound Center Dressing Your Wound -Person Taught Patient -Teaching Method Discussion -Response to teaching Verbalize understanding WC - Visit Discharge Discharge Condition Stable Stable Stable Ambulatory Status Ambulatory Ambulatory Ambulatory Transportation Private Auto Private Auto Private Auto Accompanied by SELF Medication Reconcilliation completed & No provided to patient/care provider Clinical Summary of Care Provided Yes Facility Type Home Health Orders Sent Yes Wound debrided: Hallux amputation site Laterality: Right Wound Grade/Stage: Contreras 3 Type of Debridement: Excisional debridement Anesthesia Used: 4% Lidocaine Solution Depth: to muscle Percentage of wound debrided: 100 Instrument Used: 3mm curette Tissue Removed: includes fibrous, devitalized, biofilm, callus and slough tissue Severity: Necrosis of Muscle Amount of bleeding with debridement: Mild Bleeding Controlled with: Pressure Patient tolerated procedure: Patient tolerated procedure well Additional Wound Wound debrided: Plantar fifth metatarsal head Laterality: Right Wound Grade/Stage: Contreras 1 Type of Debridement: Excisional debridement Anesthesia Used: 4% Lidocaine Solution Depth: in the subcutaneous layer Percentage of wound debrided: 100 Instrument Used: 3mm curette Tissue Removed: Includes fibrous, devitalized, biofilm, callus and slough tissue Severity: Fat Layer Exposed Amount of bleeding with debridement: Mild Bleeding Controlled with: Pressure Patient tolerated procedure: Patient tolerated procedure well Assessment/Plan Assessment/Plan (1) Chronic ulcer of right foot with fat layer exposed: CODE(S): L97.512 - Non-pressure chronic ulcer of other part of right foot with fat layer exposed (2) Non-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: CODE(S): L97.514 - Non-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 (3) Osteomyelitis: CODE(S): M86.9 - Osteomyelitis, unspecified QUALIFIERS: Osteomyelitis type: other acute Osteomyelitis location: foot Laterality: right Qualified Code(s): M86.171 - Other acute osteomyelitis, right ankle and foot (4) Uncontrolled diabetes mellitus: CODE(S): E11.65 - Type 2 diabetes mellitus with hyperglycemia QUALIFIERS: Diabetes mellitus type: other specified (including IZABELA) Glycemic state: with hyperglycemia Qualified Code(s): E13.65 - Other specified diabetes mellitus with hyperglycemia (5) Chronic kidney disease: CODE(S): N18.9 - Chronic kidney disease, unspecified QUALIFIERS: Chronic kidney disease stage: stage 3 (moderate) Chronic kidney disease stage 3 subtype: stage 3b (GFR 30-44) Qualified Code(s): N18.32 - Chronic kidney disease, stage 3b (6) Pneumonia due to COVID-19 virus: CODE(S): U07.1 - COVID-19; J12.89 - Other viral pneumonia (7) History of non-ST elevation myocardial infarction (NSTEMI): CODE(S): I25.2 - Old myocardial infarction (8) Chronic diastolic (congestive) heart failure: CODE(S): I50.32 - Chronic diastolic (congestive) heart failure (9) Venous insufficiency: CODE(S): I87.2 - Venous insufficiency (chronic) (peripheral) PLAN: Patient seen and examined Patient noted to have wound to right first ray amputation site and plantar fifth metatarsal head. Wounds are noted to be improved. Bone is now covered to the first ray amputation site. Dorsal foot erythema site is improved. 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 Patient also noted to have osteomyelitis. Patient underwent surgery on 08/22/2020 for gas gangrene and right hallux diabetic foot ulceration. Patient clearance fragment of bone was noted to be positive for osteomyelitis growing Citrobacter, Proteus, Enterococcus, Prevotella. Patient was discharged from the hospital with home health care for wound VAC and IV antibiotics with a PICC line for vancomycin and Zosyn. Patient relates that he did not like to bother anyone so he asked if he can have the PICC line removed. The PICC line was removed the patient is now continuing on Augmentin 500-125 mg twice daily for [address] Nick's note Patient also relates that he is not very fond of the wound VAC. Discussed patient the importance of the wound VAC as far as helping to granulate in the deep tissue. This especially helps to fill in the depth of the wound from the amputation. It is noted that the cord to the wound VAC was pressed up against the skin and created a red area. Discussed with patient need to advocate for himself until home health care to pad up the wound VAC cord. This area is much improved Wound VAC was reapplied today to the first amputation site. Patient to use hydrogel dressing to plantar fifth metatarsal head wound. Arterial studies from 08/22/2020 demonstrated Triphasic Doppler waveforms are noted at ankle level bilaterally. Pulse-volume recording waveform amplitudes are diminished at digital level on the right, but satisfactory at all other levels bilaterally. Resting ankle-brachial indices are normal bilaterally. The right digital-brachial index was not determined. The left digital-brachial index is normal. Venous studies from 08/22/2020 demonstrated Deep veins of the lower extremities are bilaterally patent and compressible segmentally. There is no evidence of deep vein thrombosis on either side. Valvular competence appears intact within the proximal deep venous systems bilaterally. The great saphenous veins appear bilaterally patent and compressible segmentally. Discussed importance of smoking cessation, blood sugar control, weight management, offloading, proper nutrition, and hygiene to optimize healing potential. Recent labs are significant for a CRP on 08/21/2020 of 208, and albumin on 05/12/2020 of 3.8, ESR on 08/21/2020 of 50, hemoglobin A1c on 08/22/2020 of 11.1%. Discussed importance of smoking cessation, blood sugar control, weight management, offloading, proper nutrition, and hygeine to optimize healing potential. Patient noted to have a surgical shoe for offloading purposes. 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 This would put significant wound pressure on his wounds which was delayed healing. Patient relates that he needs to have an income and that he is likely going to go back to work against my advice. Is also noted that patient is undergoing a significant deal of stress in his personal life given that he is undergoing a divorce. We will begin process of up application for TheraSkin skin grafts. To continue wound VAC therapy in the interim. We are still waiting for approval. All questions answered Patient to follow-up in 1 week This note was generated with [employer] software. It may contain incorrect words, spelling, and punctuation that were not noted in checking the note before signing.
[2020-10-05 08:13] VITALS: BP 175/85; PULSE 84; RESP 20; TEMP 36.8; BMI 37.6
--- NOTE | 2020-10-05 08:39 | PN.PCM_ITS ---
History of Present Illness Date of Service: 10/05/20 Chief Complaint: Right foot wound History of Wound: Patient is a follow-up from the hospital visit. Patient has significant medical history including diabetes, congestive heart failure, hypertension, obesity, venous insufficiency, history of NSTEMI and COVID-19. Patient was admitted for right great toe ulceration on 08/22/2020. 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 Patient then had wound VAC applied to the open wound. Patient also had IV line placed for infectious disease with treatment of Vanco and Zosyn until 10/03/2020. Patient relates that he wished to stop the IV antibiotics and is now taking Augmentin for [address] Nick. Patient cultures from surgery are noted to be positive for osteomyelitis. Patient following up from hospital visit for continued wound care. Progress of Wound: Improvement noted to amputation site with complete bone coverage now and increasing granulation tissue present. Plantar fifth metatarsal wound is improved. No signs of infection. Subjective Subjective Patient seen and examined resting comfortably. Patient denies any new pedal complaints. Patient denies any nausea, fever, chills, chest pain, shortness of breath, cough, streaking, purulence, vomiting. Patient relates that his home health care has not provided him more wound VAC supplies Objective Data Objective Data Vital Signs: Vital Signs Temp Pulse Resp BP 98.2 F 84 20 H 175/85 H 10/05/20 08:13 10/05/20 08:13 10/05/20 08:13 10/05/20 08:13 Oxygen Delivery Method Room Air Weight: 122.47 kg Body Mass Index (BMI) 37.6 Physical Exam Const alert and no apparent distress General Appearance: cooperative and comfortable Resp normal respiratory effort Effort and Inspection: able to speak in complete sentences Extremity normal capillary refill, no calf tenderness and no pedal edema General Extremity: no tenderness to palpation of joints or extremities and other findings Other Details: Capillary refill time less than 3 seconds noted to digits ; Negative for clubbing or cyanosis Skin General Skin Exam: atrophy and dry skin; Negative for ecchymosis, erythema, eschar, pallor or dermatitis Rashes: no rashes Wounds: wounds noted Wound Narrative: ulcers noted to right first ray amputation site down to the level of muscle as well as plantar fifth metatarsal head down to level of fat and fascia. No malodor, erythema, purulence, streaking, fluctuation, crepitus, or other signs of infection. Skin is atrophic and hairless. Granular base. Hallux amputation site probes is completely covered by granulation tissue with increasing depth filling in and overall improvement. There is less depth noted overall to this ulceration site. Fifth metatarsal ulceration does not probe to bone and is to the level of the fascia without any signs of infection with granular base. There is mild surrounding callus tissue noted. Dorsal right foot noted to have erythematous area consistent with pressure from wound VAC tube. No open wounds at this time. This area continues to improve. No signs of infection. DP and PT pulses diminished bilaterally Partial right first ray amputation. Neuro Gait (Neuro): antalgic and assistive device used Sensory Exam: extremities light-touch: decreased Motor Exam: strength 5/5 throughout Psych Appearance: appropriate Attitude: calm Debridement Note Debridement Note Post-Debridement Measurements and Additional Note: Post-Debridement Mila surements/Treatment - Nurse 1 - General Ulcer Assessment Start: 09/07/20 08:14 Freq: Status: Active Protocol: .CINTHIA Activity Type Activity Date Activity User E-Sign Co-Sign Detail Recorded Client Recorded Date Recorded By Document 09/07/20 08:14 MW [id number] 09/07/20 08:27 MW Document 09/14/20 08:10 [facility] [id number] 09/14/20 08:21 BM Document 09/21/20 08:24 [facility] [id number] 09/21/20 08:34 [facility] Document 09/28/20 08:07 DL [id number] 09/28/20 08:20 DL Document 10/05/20 08:13 DL [id number] 10/05/20 08:27 DL 09/07/20 09/14/20 09/21/20 08:14 08:10 08:24 - Today's Visit Information Type of service Initial Visit Follow-up Visit Follow-up Visit (Physician/CROP PEST CONTROL SPECIALIST (Physician/CROP PEST CONTROL SPECIALIST ) ) Arrival Mode Ambulatory Ambulatory Ambulatory Transfer Assistance None None None Accompanied by self Patient Identification Verified (Name & Yes Yes Yes ) Patient Requires Transmission-Based No No No Precautions Finger Stick Blood Sugar(mg/dl) (if 147 147 147 indicated): Blood Sugar Stated by Stated by Stated by Patient Patient Patient Height and Weight Height 5 ft 11 in Weight 122.47 kg Weight in Pounds 270.0 lbs Weight Measurement Method Stated by Patient Body Mass Index (BMI) 37.6 37.6 37.6 BMI Classification Obese Obese Obese BSA - Chris 2.40 Vital Signs Temperature (97.8 F-99.1 F) 97.4 F L 98.3 F 97.3 F L Temperature Source Temporal Temporal Temporal Pulse Rate (60-100) 75 82 99 Pulse Location Monitor Monitor Monitor Respiratory Rate (12-18) 18 16 16 Respiratory rate source Observation Observation Observation Oxygen Delivery Method Room Air Room Air Room Air Blood Pressure (90/60-120/80) 136/77 H 167/76 H 159/84 H Blood Pressure Mean (mm Hg) 96 106 109 Source Monitor Monitor Monitor Position Sitting Sitting Sitting Blood Pressure Location Left Arm Right Arm Left Arm Have you changed medications since your No No last visit? Any new allergies or adverse reactions No No Had a fall/change in ADL's that may No No increase risk of falls Signs or symptoms of abuse and/or No No neglect since last visit Have you been in the hospital since your No No last visit? Has dressing in place as prescribed Yes No Has compression in place as prescribed N/A N/A Has offloadiing in place as prescribed Yes Yes Experienced any changes in pain level or No No management History Since Last Visit- (Skip if this is Patient's initial visit) Left Footwear Regular Shoe Regular Shoe Surgical Shoe with pressure relief insole Right Footwear Removable Cast Surgical Shoe Regular Shoe Walker/Walking with pressure Boot relief insole Pain Scale: 0-10 Numeric Is Patient Pain Free? Yes Yes Yes Communication Assessment Preferred language Finnish Spray Gun Operator Required No Able to Read Yes Able to Write Yes Communication Tools None Caregiver Communication Skills No Impairment Impairment Right Hearing Abillity Normal Left Hearing Abillity Normal Visual Assistive Devices Glasses Teaching Assessment Preferences Verbal,Written, Audio/Visual, Demonstration Barriers to Learning None Readiness To Learn Excellent Willingness to Engage in Self Management High Activies Readiness to Engage in Self Management High Activities Anxiety Level Calm Cooperation Cooperative Perception Coherent Interest in Health Problem Asks Questions Education Importance Acknowledges Need Does Patient Smoke tobacco or other Yes substances Smoking Status Never smoker Is Patient Diabetic Yes Culture/Catholic/Cleaner Signs Cultural/Catholic Needs that may affect No Treatment Plan Would you allow our [facility] operator to No meet you for the purpose of spiritual/ emotional support? Cleaner Signs to contact place of orthodox No Teaching: Wound Center *Welcome to the Wound Center -Person Taught Patient -Teaching Method Discussion -Response to teaching Verbalize understanding 09/28/20 10/05/20 08:07 08:13 WC - Today's Visit Information Type of service Follow-up Visit Follow-up Visit (Physician/CROP PEST CONTROL SPECIALIST (Physician/CROP PEST CONTROL SPECIALIST ) ) Arrival Mode Ambulatory Ambulatory Transfer Assistance None None Accompanied by Patient Identification Verified (Name & Yes Yes ) Patient Requires Transmission-Based No No Precautions Finger Stick Blood Sugar(mg/dl) (if 124 136 indicated): Blood Sugar Stated by Stated by Patient Patient Height and Weight Height Weight Weight in Pounds Weight Measurement Method Body Mass Index (BMI) 37.6 37.6 BMI Classification Obese Obese [facility] - Chris Vital Signs Temperature (97.8 F-99.1 F) 97.7 F L 98.2 F Temperature Source Temporal Temporal Pulse Rate (60-100) 78 84 Pulse Location Monitor Monitor Respiratory Rate (12-18) 22 H 20 H Respiratory rate source Observation Observation Oxygen Delivery Method Blood Pressure (90/60-120/80) 183/87 H 175/85 H Blood Pressure Mean (mm Hg) 119 115 Source Monitor Monitor Position Blood Pressure Location Have you changed medications since your No No last visit? Any new allergies or adverse reactions No No Had a fall/change in ADL's that may No No increase risk of falls Signs or symptoms of abuse and/or No neglect since last visit Have you been in the hospital since your No No last visit? Has dressing in place as prescribed Yes Yes Has compression in place as prescribed Yes Yes Has offloadiing in place as prescribed Yes Yes Experienced any changes in pain level or No No management History Since Last Visit- (Skip if this is Patient's initial visit) Left Footwear Right Footwear Surgical Shoe Surgical Shoe with pressure with pressure relief insole relief insole Pain Scale: 0-10 Numeric Is Patient Pain Free? Yes Yes Communication Assessment Preferred language instructor Required Able to Read Able to Write Communication Tools Caregiver Communication Skills Impairment Right Hearing Abillity Left Hearing Abillity Visual Assistive Devices Teaching Assessment Preferences Barriers to Learning Readiness To Learn Willingness to Engage in Self Management Activies Readiness to Engage in Self Management Activities Anxiety Level Cooperation Perception Interest in Health Problem Education Importance Does Patient Smoke tobacco or other substances Smoking Status Is Patient Diabetic Culture/Catholic/Cleaner Signs Cultural/Catholic Needs that may affect Treatment Plan Would you allow our [facility] machine operator to meet you for the purpose of spiritual/ emotional support? Cleaner Signs to contact place of orthodox Teaching: Wound Center *Welcome to the Wound Center -Person Taught -Teaching Method -Response to teaching WC - Nurse 1 - General Ulcer Measurement Start: 09/07/20 08:14 Freq: Status: Active Protocol: Activity Type Activity Date Activity User E-Sign Co-Sign Detail Recorded Client Recorded Date Recorded By Document 09/07/20 08:14 MW [id number] 09/07/20 08:27 MW Document 09/14/20 08:10 BMF [id number] 09/14/20 08:21 BMF Document 09/21/20 08:24 BMF [id number] 09/21/20 08:34 BMF Document 09/28/20 08:07 DL [id number] 09/28/20 08:20 DL Document 10/05/20 08:13 DL [id number] 10/05/20 08:27 DL 09/07/20 09/14/20 09/21/20 08:14 08:10 08:24 Wound Center Nurse 1 2-right 5th metatarsal ulcer -Combined with other wound No -Current Size (cm) - Length 0.4 1.5 -Current Size (cm) - Width 0.3 0.5 -Current Size (cm) - Depth 0.1 0.1 -Total Square Cm 0.12 0.75 -Photo Taken No No -Epithelialization Small 1-33% -Tunneling No -Undermining/Tunneling No -Circular Undermining No -Exudate Amt None Present Small -Wound Margin Flat & Intact Distinct, Outline Attached -Granulation Amt Large (67-100%) Large (67-100%) -Granulation Quality [place] Pale -Slough/Fibrin Yes -Necrosis Amt Small (1-33%) Small (1-33%) -Necrotic Tissue Type Adherent Slough Adherent Slough -Structure Exposed N/A -Texture (Cathie-wound Skin Appearance) Assessed,Callus Callus,Scarring ,Scarring -Moisture (Cathie-wound Skin Appearance) Assessed,Dry/ Dry/Scaly Scaly -Color (Cathie-wound Skin Appearance) Assessed Assessed -Temperature (Cathie-wound Skin No Abnormality No Abnormality Appearance) (Pt Warm) (Pt Warm) -Tenderness on Palpation (Cathie-wound No No Skin Appearance) -Ulcer Cleansing SOAPY WATER Wound Cleanser -Foul Odor after Cleansing No No -Anesthetic Used 4% Lidocaine 4% Lidocaine Solution Solution #1 RIGHT GREAT TOE AMP SITE -Combined with other wound No No -Current Size (cm) - Length 8.0 9.8 8.7 -Current Size (cm) - Width 5.0 4.1 4.1 -Current Size (cm) - Depth 1.8 0.2 2.1 -Total Square Cm 40.00 40.18 35.67 -Photo Taken Yes No No -Epithelialization None Present None Present -Tunneling No No -Undermining/Tunneling No No -Circular Undermining No No -Exudate Amt Large Large Medium -Exudate Type Serosanguineous Serosanguineous Serosanguineous -Wound Margin Distinct, Distinct, Thickened & Outline Outline Rolled Under Attached Attached -Granulation Amt Medium (34-66%) Medium (34-66%) Medium (34-66%) -Granulation Quality [place] Red -Slough/Fibrin Yes Yes -Necrosis Amt Medium (34-66%) Medium (34-66%) Medium (34-66%) -Necrotic Tissue Type Adherent Slough Adherent Slough Adherent Slough -Structure Exposed N/A N/A -Texture (Cathie-wound Skin Appearance) Assessed, Assessed, Callus, Scarring Scarring Localized Edema ,Scarring -Moisture (Cathie-wound Skin Appearance) Assessed, Assessed, Maceration Maceration Maceration -Color (Cathie-wound Skin Appearance) Assessed Assessed,Palor No Abnormality -Temperature (Cathie-wound Skin No Abnormality No Abnormality No Abnormality Appearance) (Pt Warm) (Pt Warm) (Pt Warm) -Tenderness on Palpation (Cathie-wound Yes No No Skin Appearance) -Ulcer Cleansing SOAP AND WATER SOAPY WATER Wound Cleanser -Foul Odor after Cleansing No No No -Anesthetic Used 4% Lidocaine 4% Lidocaine 4% Lidocaine Solution Solution Solution Lower Limb Edema Present Yes Right Calf (cm) 45.0 Right Ankle (cm) 27.5 Left Calf (cm) 42.0 Left Ankle (cm) 25.0 09/28/20 10/05/20 08:07 08:13 Wound Center Nurse 1 2-right 5th metatarsal ulcer -Combined with other wound -Current Size (cm) - Length 0.1 0.1 -Current Size (cm) - Width 0.1 0.1 -Current Size (cm) - Depth 0.1 0.1 -Total Square Cm 0.01 0.01 -Photo Taken No No -Epithelialization -Tunneling -Undermining/Tunneling -Circular Undermining -Exudate Amt None Present None Present -Wound Margin Thickened Thickened -Granulation Amt Large (67-100%) Large (67-100%) -Granulation Quality Pale Pale -Slough/Fibrin -Necrosis Amt None Present (0 Small (1-33%) %) -Necrotic Tissue Type Adherent Slough -Structure Exposed None/Limited to N/A Skin Breakdown -Texture (Cathie-wound Skin Appearance) Callus Scarring -Moisture (Cathie-wound Skin Appearance) Dry/Scaly Dry/Scaly -Color (Cathie-wound Skin Appearance) No Abnormality No Abnormality -Temperature (Cathie-wound Skin No Abnormality No Abnormality Appearance) (Pt Warm) (Pt Warm) -Tenderness on Palpation (Cathie-wound No No Skin Appearance) -Ulcer Cleansing Wound Cleanser -Foul Odor after Cleansing No No -Anesthetic Used 4% Lidocaine 4% Lidocaine Solution Solution #1 RIGHT GREAT TOE AMP SITE -Combined with other wound -Current Size (cm) - Length 6.4 5.7 -Current Size (cm) - Width 4 3.4 -Current Size (cm) - Depth 3 2 -Total Square Cm 25.6 19.38 -Photo Taken No No -Epithelialization -Tunneling -Undermining/Tunneling -Circular Undermining -Exudate Amt Medium Large -Exudate Type Serosanguineous Serosanguineous -Wound Margin Distinct, Thickened Outline Attached -Granulation Amt Large (67-100%) Small (1-33%) -Granulation Quality [place] -Slough/Fibrin -Necrosis Amt Medium (34-66%) Large (67-100%) -Necrotic Tissue Type Adherent Slough Adherent Slough -Structure Exposed N/A N/A -Texture (Cathie-wound Skin Appearance) Scarring Scarring -Moisture (Cathie-wound Skin Appearance) Maceration Maceration -Color (Cathie-wound Skin Appearance) No Abnormality Rubor -Temperature (Cathie-wound Skin No Abnormality Appearance) (Pt Warm) -Tenderness on Palpation (Cathie-wound Yes No Skin Appearance) -Ulcer Cleansing Wound Cleanser Wound Cleanser -Foul Odor after Cleansing No No -Anesthetic Used 4% Lidocaine 4% Lidocaine Solution Solution Lower Limb Edema Present Right Calf (cm) 41 Right Ankle (cm) 25 Left Calf (cm) Left Ankle (cm) WC - Nurse 2 - General Ulcer CM Notes Start: 09/07/20 08:14 Freq: Status: Active Protocol: Activity Type Activity Date Activity User E-Sign Co-Sign Detail Recorded Client Recorded Date Recorded By Document 09/07/20 08:40 JF [id number] 09/07/20 08:48 JF Document 09/14/20 08:49 JF [id number] 09/14/20 08:59 JF Document 09/21/20 08:43 MW [id number] 09/21/20 08:50 MW Document 09/28/20 08:34 JF [id number] 09/28/20 08:41 JF Edit Result 09/28/20 08:34 JF (1) [id number] 09/28/20 08:51 JF Document 10/05/20 08:33 JF [id number] 10/05/20 08:37 JF (1) 2-right 5th metatarsal ulcer - Debridement - Subq, 1st 20sq cm No => Yes #1 RIGHT GREAT TOE AMP SITE - Clinical Debridement Subcutaneous => Muscle / Fascia - Tissue Removed Subcutaneous => Subcutaneous, => Muscle,Fascia - Debridement - Subq, 1st 20sq cm Yes => No - Debridement, SubQ, ea addt'l 20sq cm 1 => or part thereof - Debridement - Muscle / Fascia, 1st => Yes 20sq cm - Debridement, Muscle/Fascia, ea addt'l => 1 20sq cm or part thereof 09/07/20 09/14/20 09/21/20 08:40 08:49 08:43 Wound Center Nurse 2 2-right 5th metatarsal ulcer -Time 08:44 08:49 08:44 -Correct Patient Yes Yes Yes -Correct Side, Site, Position Yes Yes Yes -Correct Procedure Yes Yes Yes -Procedure Performed Yes Yes Yes -Type of Procedure Debridement Debridement Debridement -Clinical Debridement Subcutaneous Subcutaneous Subcutaneous -Tissue Removed Subcutaneous Subcutaneous Subcutaneous -Post Debridement (cm) - Length 1.1 1.5 0.7 -Post Debridement (cm) - Width 0.8 0.7 0.2 -Post Debridement (cm) - Depth 0.1 0.1 0.2 -Total Square (Post) (cm) 0.88 1.05 0.14 -Area of Debridement (cm) - Length 1.1 1.5 0.7 -Area of Debridement (cm) - Width 0.8 0.7 0.2 -Total Square (Area) (cm) 0.88 1.05 0.14 -Tunneling No No No -Undermining/Tunneling No No No -Circular Undermining No No No -Wound/Ulcer Outcome Not Healed Not Healed Not Healed -Ulcer Cleansing Rinsed/ Rinsed/ Rinsed/ Irrigated with Irrigated with Irrigated with Saline Saline Saline -Foul Odor after Cleansing Yes, Due to No No Product Use -Bioengineered Tissue No No No -Bleeding Controlled with Pressure Pressure Pressure -Offloading Yes Yes No -Type of Offloading Surgical Shoe Surgical Shoe -Treatment Response Procedure Procedure Procedure Tolerated Well Tolerated Well Tolerated Well -Debridement - Subq, 1st 20sq cm Yes Yes Yes #1 RIGHT GREAT TOE AMP SITE -Time 08:41 08:49 08:45 -Correct Patient Yes Yes Yes -Correct Side, Site, Position Yes Yes Yes -Correct Procedure Yes Yes Yes -Procedure Performed Yes Yes -Type of Procedure Debridement Debridement Debridement -Clinical Debridement Muscle / Fascia Subcutaneous Muscle / Fascia -Tissue Removed Muscle,Fascia Subcutaneous, Muscle Muscle,Fascia -Post Debridement (cm) - Length 10.6 9.1 8.0 -Post Debridement (cm) - Width 4.1 4.2 4.5 -Post Debridement (cm) - Depth 2.9 2.4 1.6 -Total Square (Post) (cm) 43.46 38.22 36.00 -Area of Debridement (cm) - Length 10.6 9.1 8.0 -Area of Debridement (cm) - Width 4.1 4.2 4.5 -Total Square (Area) (cm) 43.46 38.22 36.00 -Tunneling No No No -Undermining/Tunneling No No No -Circular Undermining No No No -Wound/Ulcer Outcome Not Healed Not Healed Not Healed -Ulcer Cleansing Rinsed/ Rinsed/ Rinsed/ Irrigated with Irrigated with Irrigated with Saline Saline Saline -Foul Odor after Cleansing No No No -Bioengineered Tissue No No No -Bleeding Controlled with Pressure Pressure Pressure -Offloading Yes Yes No -Type of Offloading Surgical Shoe Surgical Shoe -Treatment Response Procedure Procedure Procedure Tolerated Well Tolerated Well Tolerated Well -Debridement - Subq, 1st 20sq cm No No -Debridement - Muscle / Fascia, 1st Yes Yes Yes 20sq cm -Debridement, Muscle/Fascia, ea addt'l 2 1 1 20sq cm or part thereof Pain Scale: 0-10 Numeric Is Patient Pain Free? Yes Yes Yes 09/28/20 10/05/20 08:34 08:33 Wound Center Nurse 2 2-right 5th metatarsal ulcer -Time 08:39 08:36 -Correct Patient Yes Yes -Correct Side, Site, Position Yes Yes -Correct Procedure Yes Yes -Procedure Performed Yes Yes -Type of Procedure Debridement Debridement -Clinical Debridement Subcutaneous Subcutaneous -Tissue Removed Subcutaneous Subcutaneous -Post Debridement (cm) - Length 0.8 0.3 -Post Debridement (cm) - Width 0.3 0.2 -Post Debridement (cm) - Depth 0.1 0.1 -Total Square (Post) (cm) 0.24 0.06 -Area of Debridement (cm) - Length 0.8 0.3 -Area of Debridement (cm) - Width 0.3 0.2 -Total Square (Area) (cm) 0.24 0.06 -Tunneling No No -Undermining/Tunneling No No -Circular Undermining No No -Wound/Ulcer Outcome Not Healed Not Healed -Ulcer Cleansing Rinsed/ Rinsed/ Irrigated with Irrigated with Saline Saline -Foul Odor after Cleansing No No -Bioengineered Tissue No No -Bleeding Controlled with Pressure Pressure -Offloading Yes Yes -Type of Offloading Surgical Shoe Surgical Shoe -Treatment Response Procedure Procedure Tolerated Well Tolerated Well -Debridement - Subq, 1st 20sq cm Yes Yes #1 RIGHT GREAT TOE AMP SITE -Time 08:35 08:33 -Correct Patient Yes Yes -Correct Side, Site, Position Yes Yes -Correct Procedure Yes Yes -Procedure Performed Yes Yes -Type of Procedure Debridement Debridement -Clinical Debridement Muscle / Fascia Muscle / Fascia -Tissue Removed Subcutaneous, Muscle Muscle,Fascia -Post Debridement (cm) - Length 9 7.3 -Post Debridement (cm) - Width 3.8 3.4 -Post Debridement (cm) - Depth 1.8 1.4 -Total Square (Post) (cm) 34.2 24.82 -Area of Debridement (cm) - Length 9 7.3 -Area of Debridement (cm) - Width 3.8 3.4 -Total Square (Area) (cm) 34.2 24.82 -Tunneling No No -Undermining/Tunneling No No -Circular Undermining No No -Wound/Ulcer Outcome Not Healed Not Healed -Ulcer Cleansing Rinsed/ Rinsed/ Irrigated with Irrigated with Saline Saline -Foul Odor after Cleansing Yes, Due to No Product Use -Bioengineered Tissue No No -Bleeding Controlled with Pressure Pressure -Offloading Yes Yes -Type of Offloading Surgical Shoe Surgical Shoe -Treatment Response Procedure Procedure Tolerated Well Tolerated Well -Debridement - Subq, 1st 20sq cm No -Debridement - Muscle / Fascia, 1st Yes Yes 20sq cm -Debridement, Muscle/Fascia, ea addt'l 1 1 20sq cm or part thereof Pain Scale: 0-10 Numeric Is Patient Pain Free? Yes Yes WC - Nurse 3 - General Ulcer D/C NN Start: 09/07/20 08:14 Freq: Status: Active Protocol: Activity Type Activity Date Activity User E-Sign Co-Sign Detail Recorded Client Recorded Date Recorded By Document 09/07/20 09:00 MW Desktop 09/07/20 12:18 MW Document 09/14/20 09:04 DL [id number] 09/14/20 09:24 DL Document 09/21/20 11:45 DL [id number] 09/21/20 11:46 DL Document 09/28/20 08:53 BMF [id number] 09/28/20 08:56 BMF Edit Result 09/28/20 08:53 BMF (1) [id number] 09/28/20 08:59 BMF (1) 2-right 5th metatarsal ulcer - Primary Dressing Applied Other => C Hydrogel ($), => Other - Other Dressing hydrogel => 09/07/20 09/14/20 09/21/20 09:00 09:04 11:45 Wound Care Nurse 3 2-right 5th metatarsal ulcer -Ulcer Cleansing Rinsed/ Wound Cleanser Rinsed/ Irrigated with Irrigated with Saline Saline -Foul Odor after Cleansing No No No -Negative Pressure Wound Therapy N/A -Primary Dressing Applied C Hydrogel ($) -Other Dressing hydrogel hydrogel -Primary Dressing Covered/Secured with Dry Gauze & Dry Gauze & Dry Gauze, Roll Gauze, Roll Gauze, Secured with Secured with Secured with Tape Tape Tape -Other Covering leonides #1 RIGHT GREAT TOE AMP SITE -Ulcer Cleansing Rinsed/ Wound Cleanser Wound Cleanser Irrigated with Saline -Foul Odor after Cleansing No No No -Negative Pressure Wound Therapy N/A Continue Continue -Setting (mmHg) 150 150 -Negative Pressure is Continuous Continuous -Primary Dressing Applied Aquacel AG 4x4 -Primary Dressing Covered/Secured with Dry Gauze & Roll Gauze, Secured with Tape -Other Covering ABD PAD leonides -NPWT Application Charge ($) NPWT </= 50 sq NPWT </= 50 sq cm cm -Aquacel AG 4x4 1 Right -Compression Wrap Treatment Response Procedure Procedure Procedure Tolerated Well Tolerated Well Tolerated Well Pain Scale: 0-10 Numeric Is Patient Pain Free? Yes Yes Yes Teaching: Wound Center Dressing Your Wound -Person Taught Patient -Teaching Method Discussion -Response to teaching Verbalize understanding WC - Visit Discharge Discharge Condition Stable Stable Stable Ambulatory Status Ambulatory Ambulatory Ambulatory Transportation Private Auto Private Auto Private Auto Accompanied by SELF Medication Reconcilliation completed & No provided to patient/care provider Clinical Summary of Care Provided Yes Facility Type Home Health Orders Sent Yes 09/28/20 08:53 Wound Care Nurse 3 2-right 5th metatarsal ulcer -Ulcer Cleansing Rinsed/ Irrigated with Saline -Foul Odor after Cleansing No -Negative Pressure Wound Therapy -Primary Dressing Applied C Hydrogel ($), Other -Other Dressing -Primary Dressing Covered/Secured with Dry Gauze,Dry Gauze & Roll Gauze,Secured with Tape -Other Covering drsg per d mary powder mixer #1 RIGHT GREAT TOE AMP SITE -Ulcer Cleansing Rinsed/ Irrigated with Saline -Foul Odor after Cleansing No -Negative Pressure Wound Therapy Continue -Setting (mmHg) 150 -Negative Pressure is Continuous -Primary Dressing Applied -Primary Dressing Covered/Secured with -Other Covering drsg per dl powder mixer -NPWT Application Charge ($) NPWT </= 50 sq cm -Aquacel AG 4x4 Right -Compression Wrap Leonides Wrap Treatment Response Procedure Tolerated Well Pain Scale: 0-10 Numeric Is Patient Pain Free? Yes Teaching: Wound Center Dressing Your Wound -Person Taught -Teaching Method -Response to teaching WC - Visit Discharge Discharge Condition Stable Ambulatory Status Ambulatory Transportation Private Auto Accompanied by Medication Reconcilliation completed & provided to patient/care provider Clinical Summary of Care Provided Facility Type Home Health Orders Sent Wound debrided: Hallux amputation site Laterality: Left Wound Grade/Stage: Contreras 3 Type of Debridement: Excisional debridement Anesthesia Used: 4% Lidocaine Solution Depth: to muscle Percentage of wound debrided: 100 Instrument Used: 5mm curette Tissue Removed: includes fibrous, devitalized, biofilm, callus and slough tissue Severity: Necrosis of Muscle Amount of bleeding with debridement: Mild Bleeding Controlled with: Pressure Patient tolerated procedure: Patient tolerated procedure well Additional Wound Wound debrided: Plantar fifth metatarsal head Laterality: Left Wound Grade/Stage: Contreras 1 Type of Debridement: Excisional debridement Anesthesia Used: 4% Lidocaine Solution Depth: in the subcutaneous layer Percentage of wound debrided: 100 Instrument Used: 3mm curette Tissue Removed: Includes fibrous, devitalized, biofilm, callus and slough tissue Severity: Fat Layer Exposed Amount of bleeding with debridement: Mild Bleeding Controlled with: Pressure Patient tolerated procedure: Patient tolerated procedure well Assessment/Plan Assessment/Plan (1) Chronic ulcer of right foot with fat layer exposed: CODE(S): L97.512 - Non-pressure chronic ulcer of other part of right foot with fat layer exposed (2) Non-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: CODE(S): L97.514 - Non-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 (3) Osteomyelitis: CODE(S): M86.9 - Osteomyelitis, unspecified QUALIFIERS: Osteomyelitis type: other acute Osteomyelitis location: foot Laterality: right Qualified Code(s): M86.171 - Other acute osteomyelitis, right ankle and foot (4) Uncontrolled diabetes mellitus: CODE(S): E11.65 - Type 2 diabetes mellitus with hyperglycemia QUALIFIERS: Diabetes mellitus type: other specified (including IZABELA) Glycemic state: with hyperglycemia Qualified Code(s): E13.65 - Other specified diabetes mellitus with hyperglycemia (5) Chronic kidney disease: CODE(S): N18.9 - Chronic kidney disease, unspecified QUALIFIERS: Chronic kidney disease stage: stage 3 (moderate) Chronic kidney disease stage 3 subtype: stage 3b (GFR 30-44) Qualified Code(s): N18.32 - Chronic kidney disease, stage 3b (6) Pneumonia due to COVID-19 virus: CODE(S): U07.1 - COVID-19; J12.89 - Other viral pneumonia (7) History of non-ST elevation myocardial infarction (NSTEMI): CODE(S): I25.2 - Old myocardial infarction (8) Chronic diastolic (congestive) heart failure: CODE(S): I50.32 - Chronic diastolic (congestive) heart failure (9) Venous insufficiency: CODE(S): I87.2 - Venous insufficiency (chronic) (peripheral) PLAN: Patient seen and examined Patient noted to have wound to right first ray amputation site and plantar fifth metatarsal head. Wounds are noted to be improved. Bone is now covered to the first ray amputation site. Dorsal foot erythema site is improved. 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 Patient also noted to have osteomyelitis. Patient underwent surgery on 08/22/2020 for gas gangrene and right hallux emilio betic foot ulceration. Patient clearance fragment of bone was noted to be positive for osteomyelitis growing Citrobacter, Proteus, Enterococcus, Prevotella. Patient was discharged from the hospital with home health care for wound VAC and IV antibiotics with a PICC line for vancomycin and Zosyn. Patient relates that he did not like to bother anyone so he asked if he can have the PICC line tyra mari. The PICC line was removed the patient is now continuing on Augmentin 500- 125 mg twice daily for [address] Nick's note Patient also relates that he is not very fond of the wound VAC. Discussed patient the importance of the wound VAC as far as helping to granulate in the deep tissue. This especially helps to fill in the depth of the wound from the amputation. It is noted that the cord to the wound VAC was pressed up against the skin and created a red area. Discussed with patient need to advocate for himself until home health care to pad up the wound VAC cord. This area is much improved. Patient relates he has no more wound VAC supplies at home and his doctor normal care about this. Discussed he needs to keep going in order to make sure he gets supplies. Wound VAC was reapplied today to the first amputation site. Patient to use hydrogel dressing to plantar fifth metatarsal head wound. Arterial studies from 08/22/2020 demonstrated Triphasic Doppler waveforms are noted at ankle level bilaterally. Pulse-volume recording waveform amplitudes are diminished at digital level on the right, but satisfactory at all other levels bilaterally. Resting ankle-brachial indices are normal bilaterally. The right digital-brachial index was not determined. The left digital-brachial index is normal. Venous studies from 08/22/2020 demonstrated Deep veins of the lower extremities are bilaterally patent and compressible segmentally. There is no evidence of deep vein thrombosis on either side. Valvular competence appears intact within the proximal deep venous systems bilaterally. The great saphenous veins appear bilaterally patent and compressible segmentally. Discussed importance of smoking cessation, blood sugar control, weight management, offloading, proper nutrition, and hygiene to optimize healing potential. Recent labs are significant for a CRP on 08/21/2020 of 208, and albumin on 05/12/2020 of 3.8, ESR on 08/21/2020 of 50, hemoglobin A1c on 08/22/2020 of 11.1%. Discussed importance of smoking cessation, blood sugar control, weight management, offloading, proper nutrition, and hygeine to optimize healing potential. Patient noted to have a surgical shoe for offloading purposes. 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 This would put significant wound pressure on his wounds which was delayed healing. Patient relates that he needs to have an income and that he is likely going to go back to work against my advice. Is also noted that patient is undergoing a significant deal of stress in his personal life given that he is undergoing a divorce. We will begin process of up application for TheraSkin skin grafts. To continue wound VAC therapy in the interim. Patient was denied graft approval. This is financially out of patient's reach as a run-bo-jwajct expense. We will continue with wound VAC at this time and continue wound care. All questions answered Patient to follow-up in 1 week This note was generated with [employer] dictation software. It may contain incorrect words, spelling, and punctuation that were not noted in checking the note before signing.
== END 2020-10-06 23:59 ==
LOC: WC 08:15
PROVIDERS: PCP Family Medicine; Referring Provider Internal Medicine; Visit Provider Podiatrist Foot & Ankle Surgery
DX: E11.621 Type 2 diabetes mellitus with foot ulcer (principal); L97.512 Non-pressure chronic ulcer of other part of right foot with fat layer exposed; L97.514 Non-pressure chronic ulcer of other part of right foot with necrosis of bone; M86.171 Other acute osteomyelitis, right ankle and foot; E11.65 Type 2 diabetes mellitus with hyperglycemia; N18.32 Chronic kidney disease, stage 3b; J12.89 Other viral pneumonia; I50.32 Chronic diastolic (congestive) heart failure; I87.2 Venous insufficiency (chronic) (peripheral); I25.2 Old myocardial infarction; I25.10 Atherosclerotic heart disease of native coronary artery without angina pectoris; J12.82 Pneumonia due to coronavirus disease 2019; U07.1 COVID-19; I13.0 Hypertensive heart and chronic kidney disease with heart failure and stage 1 through stage 4 chronic kidney disease, or unspecified chronic kidney disease; E11.22 Type 2 diabetes mellitus with diabetic chronic kidney disease; B95.2 Enterococcus as the cause of diseases classified elsewhere; Z63.5 Disruption of family by separation and divorce
CPT/HCPCS: 11042; 11043; 11045; 11046; 97605; 99213; G0463

== ENCOUNTER 2020-11-02 08:00 | Outpatient (RCR) | payer OTHER, MEDICAID, SELFPAY ==
[2018-12-25 08:56] VITALS: BMI 37.9
[2020-10-07 00:31] VITALS: BP 175/85; PULSE 84; RESP 20; TEMP 36.8
[2020-10-12 11:32] VITALS: BP 130/75; PULSE 78; RESP 16; TEMP 35.5; BMI 37.6
--- NOTE | 2020-10-12 12:29 | PN.PCM_ITS ---
History of Present Illness Date of Service: 10/12/20 Chief Complaint: Right foot wound History of Wound: Patient is a follow-up from the hospital visit. Patient has significant medical history including diabetes, congestive heart failure, hypertension, obesity, venous insufficiency, history of NSTEMI and COVID-19. Patient was admitted for right great toe ulceration on 08/22/2020. 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 Patient then had wound VAC applied to the open wound. Patient also had IV line placed for infectious disease with treatment of Vanco and Zosyn until 10/03/2020. Patient relates that he wished to stop the IV antibiotics and is now taking Augmentin for [address] Nick. Patient cultures from surgery are noted to be positive for osteomyelitis. Patient following up from hospital visit for continued wound care. Progress of Wound: Improved. With healing of fifth metatarsal wound and more granulation tissue noted to amputation site Subjective Subjective Patient seen and examined resting comfortably. Patient denies any new pedal complaints. Patient denies any nausea, fever, chills, chest pain, shortness of breath, cough, streaking, purulence, vomiting. Patient relates that his wound VAC broke and they had to wait couple days to get a new VAC and supplies from the company. He relates his wound VAC was off for proximately 3 days Objective Data Objective Data Vital Signs: Vital Signs Temp Pulse Resp BP 96 F L 78 16 130/75 H 10/12/20 11:32 10/12/20 11:32 10/12/20 11:32 10/12/20 11:32 Oxygen Delivery Method Room Air Weight: 122.47 kg Body Mass Index (BMI) 37.6 Physical Exam Narrative Const alert and no apparent distress General Appearance: cooperative and comfortable Resp normal respiratory effort Effort and Inspection: able to speak in complete sentences Extremity normal capillary refill, no calf tenderness and no pedal edema General Extremity: no tenderness to palpation of joints or extremities and other findings Other Details: Capillary refill time less than 3 seconds noted to digits ; Negative for clubbing or cyanosis Skin General Skin Exam: atrophy and dry skin; Negative for ecchymosis, erythema, eschar, pallor or dermatitis Rashes: no rashes Wounds: wounds noted Wound Narrative: ulcers noted to right first ray amputation site down to the level of muscle. Wound to plantar fifth metatarsal head has healed. No malodor, erythema, purulence, streaking, fluctuation, crepitus, or other signs of infection. Skin is atrophic and hairless. Granular base. Hallux amputation site is completely covered by granulation tissue with increasing depth filling in and overall improvement. There is less depth noted overall to this ulceration site. Fifth metatarsal ulceration is healed Dorsal right foot noted to have erythematous area consistent with pressure from wound VAC tube. No open wounds at this time. This area continues to improve. No signs of infection. This is largely resolved at this time. DP and PT pulses diminished bilaterally Partial right first ray amputation. Neuro Gait (Neuro): antalgic and assistive device used Sensory Exam: extremities light-touch: decreased Motor Exam: strength 5/5 throughout Psych Appearance: appropriate Attitude: calm Debridement Note Debridement Note Post-Debridement Measurements and Additional Note: Post-Debridement Measurements/Treatment - Nurse 1 - General Ulcer Assessment Start: 10/12/20 11:32 Freq: Status: Active Protocol: RADHA Activity Type Activity Date Activity User E-Sign Co-Sign Detail Recorded Client Recorded Date Recorded By Document 10/12/20 11:32 [facility] [id number] 10/12/20 11:45 [facility] 10/12/20 11:32 - Today's Visit Information 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 service 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 ) Arrival Mode Ambulatory Transfer Assistance None Patient Identification Verified (Name & Yes ) Patient Requires Transmission-Based No Precautions Height and Weight Body Mass Index (BMI) 37.6 BMI Classification Obese Vital Signs Temperature (97.8 F-99.1 F) 96 F L Temperature Source Temporal Pulse Rate (60-100) 78 Pulse Location Monitor Respiratory Rate (12-18) 16 Respiratory rate source Observation Oxygen Delivery Method Room Air Blood Pressure (90/60-120/80) 130/75 H Blood Pressure Mean (mm Hg) 93 Source Monitor Position Sitting Blood Pressure Location Left Arm History Since Last Visit- (Skip if this is Patient's initial visit) Have you changed medications since your No last visit? Any new allergies or adverse reactions No Had a fall/change in ADL's that may No increase risk of falls Signs or symptoms of abuse and/or No neglect since last visit Have you been in the hospital since your No last visit? Has dressing in place as prescribed Yes Has compression in place as prescribed Yes Has offloadiing in place as prescribed Yes Experienced any changes in pain level or No management Left Footwear Regular Shoe Right Footwear Surgical Shoe with pressure relief insole Pain Scale: 0-10 Numeric Is Patient Pain Free? Yes LUC - Nurse 1 - General Ulcer Measurement Start: 10/12/20 11:32 Freq: Status: Active Protocol: Activity Type Activity Date Activity User E-Sign Co-Sign Detail Recorded Client Recorded Date Recorded By Document 10/12/20 11:32 [facility] [id number] 10/12/20 11:45 [facility] 10/12/20 11:32 Wound Center Nurse 1 2-right 5th metatarsal ulcer -Combined with other wound No -Current Size (cm) - Length 0.1 -Current Size (cm) - Width 0.1 -Current Size (cm) - Depth 0.1 -Total Square Cm 0.01 -Epithelialization Large 67-100% #1 RIGHT GREAT TOE AMP SITE -Combined with other wound No -Current Size (cm) - Length 4.2 -Current Size (cm) - Width 3 -Current Size (cm) - Depth 0.4 -Total Square Cm 12.6 -Photo Taken No -Epithelialization Small 1-33% -Tunneling No -Undermining/Tunneling No -Circular Undermining No -Exudate Amt Large -Exudate Type Serosanguineous -Wound Margin Thickened & Rolled Under -Granulation Amt Large (67-100%) -Granulation Quality Red -Slough/Fibrin Yes -Necrosis Amt Small (1-33%) -Necrotic Tissue Type Adherent Slough -Texture (Cathie-wound Skin Appearance) Assessed, Scarring -Moisture (Cathie-wound Skin Appearance) Assessed, Maceration -Color (Cathie-wound Skin Appearance) Assessed,Palor -Temperature (Cathie-wound Skin No Abnormality Appearance) (Pt Warm) -Tenderness on Palpation (Cathie-wound No Skin Appearance) -Ulcer Cleansing soapy water -Foul Odor after Cleansing No -Anesthetic Used 4% Lidocaine Solution WC - Nurse 2 - General Ulcer CM Notes Start: 10/12/20 11:32 Freq: Status: Active Protocol: Activity Type Activity Date Activity User E-Sign Co-Sign Detail Recorded Client Recorded Date Recorded By Document 10/12/20 12:09 [facility] [id number] 10/12/20 12:14 [facility] 10/12/20 12:09 Wound Center Nurse 2 2-right 5th metatarsal ulcer -Time 12:12 -Correct Patient No -Correct Side, Site, Position No -Correct Procedure No -Procedure Performed No -Post Debridement (cm) - Length 0 -Post Debridement (cm) - Width 0 -Post Debridement (cm) - Depth 0 -Total Square (Post) (cm) 0 -Area of Debridement (cm) - Length 0 -Area of Debridement (cm) - Width 0 -Total Square (Area) (cm) 0 -Tunneling No -Undermining/Tunneling No -Circular Undermining No -Wound/Ulcer Outcome Healed- Epithelialized -Ulcer Cleansing Rinsed/ Irrigated with Saline -Foul Odor after Cleansing No -Bioengineered Tissue No -Bleeding Controlled with Pressure -Offloading Yes -Type of Offloading Surgical Shoe -Treatment Response Procedure Tolerated Well -Debridement - Subq, 1st 20sq cm No #1 RIGHT GREAT TOE AMP SITE -Time 12:09 -Correct Patient Yes -Correct Side, Site, Position Yes -Correct Procedure Yes -Procedure Performed Yes -Type of Procedure Debridement -Clinical Debridement Subcutaneous -Tissue Removed Subcutaneous -Post Debridement (cm) - Length 5.5 -Post Debridement (cm) - Width 3.3 -Post Debridement (cm) - Depth 1.1 -Total Square (Post) (cm) 18.15 -Area of Debridement (cm) - Length 5.5 -Area of Debridement (cm) - Width 3.3 -Total Square (Area) (cm) 18.15 -Tunneling No -Undermining/Tunneling No -Circular Undermining No -Wound/Ulcer Outcome Not Healed -Foul Odor after Cleansing No -Bioengineered Tissue No -Bleeding Controlled with Pressure -Offloading Yes -Type of Offloading Surgical Shoe -Treatment Response Procedure Tolerated Well -Debridement - Subq, 1st 20sq cm Yes Pain Scale: 0-10 Numeric Is Patient Pain Free? Yes - Nurse 3 - General Ulcer D/C NN Start: 10/12/20 11:32 Freq: Status: Active Protocol: Activity Type Activity Date Activity User E-Sign Co-Sign Detail Recorded Client Recorded Date Recorded By Document 10/12/20 12:14 [facility] [id number] 10/12/20 12:15 [facility] 10/12/20 12:14 Wound Care Nurse 3 #1 RIGHT GREAT TOE AMP SITE -Ulcer Cleansing Rinsed/ Irrigated with Saline -Foul Odor after Cleansing No -NPWT Application Charge ($) NPWT </= 50 sq cm Cathie-Wound Care Barrier Pain Scale: 0-10 Numeric Is Patient Pain Free? Yes WC - Visit Discharge Discharge Condition Stable Ambulatory Status Wheelchair Transportation Private Auto Medication Reconcilliation completed & Yes provided to patient/care provider Clinical Summary of Care Provided Yes Wound debrided: First ray amputation site Laterality: Right Wound Grade/Stage: Contreras 3 Type of Debridement: Excisional debridement Anesthesia Used: 4% Lidocaine Solution Depth: in the subcutaneous layer Percentage of wound debrided: 100 Instrument Used: 3mm curette Tissue Removed: includes fibrous, devitalized, biofilm, callus and slough tissue Severity: Fat Layer Exposed Amount of bleeding with debridement: Mild Bleeding Controlled with: Pressure Patient tolerated procedure: Patient tolerated procedure well Assessment/Plan Assessment/Plan (1) Chronic ulcer of right foot with fat layer exposed: CODE(S): L97.512 - Non-pressure chronic ulcer of other part of right foot with fat layer exposed (2) Chronic kidney disease: CODE(S): N18.9 - Chronic kidney disease, unspecified QUALIFIERS: Chronic kidney disease stage: stage 3 (moderate) Chronic kidney disease stage 3 subtype: stage 3b (GFR 30-44) Qualified Code(s): N18.32 - Chronic kidney disease, stage 3b (3) Chronic diastolic (congestive) heart failure: CODE(S): I50.32 - Chronic diastolic (congestive) heart failure (4) Uncontrolled diabetes mellitus: CODE(S): E11.65 - Type 2 diabetes mellitus with hyperglycemia QUALIFIERS: Diabetes mellitus type: other specified (including IZABELA) Glycemic state: with hyperglycemia Qualified Code(s): E13.65 - Other specified diabetes mellitus with hyperglycemia PLAN: Patient seen and examined Patient noted to have wound to right first ray amputation site with more granulation tissue filling in. Fifth metatarsal wound is since healed. 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 Patient also noted to have osteomyelitis. Patient underwent surgery on 08/22/2020 for gas gangrene and right hallux diabetic foot ulceration. Patient clearance fragment of bone was noted to be positive for osteomyelitis growing Citrobacter, Proteus, Enterococcus, Prevotella. Patient was discharged from the hospital with home health care for wound VAC and IV antibiotics with a PICC line for vancomycin and Zosyn. Patient relates that he did not like to bother anyone so he asked if he can have the PICC line removed. The PICC line was removed the patient is now continuing on Augmentin 500-125 mg twice daily for [address] Nick's note Patient also relates that he is not very fond of the wound VAC. Discussed patient the importance of the wound VAC as far as helping to granulate in the deep tissue. This especially helps to fill in the depth of the wound from the amputation. It is noted that the cord to the wound VAC was pressed up against the skin and created a red area. Discussed with patient need to advocate for himself until home health care to pad up the wound VAC cord. This area is much improved. Wound VAC was reapplied today to the first amputation site. To continue wound VAC therapy dressings 3 times a week. Arterial studies from 08/22/2020 demonstrated Triphasic Doppler waveforms are noted at ankle level bilaterally. Pulse-volume recording waveform amplitudes are diminished at digital level on the right, but satisfactory at all other levels bilaterally. Resting ankle-brachial indices are normal bilaterally. The right digital-brachial index was not determined. The left digital-brachial index is normal. Venous studies from 08/22/2020 demonstrated Deep veins of the lower extremities are bilaterally patent and compressible segmentally. There is no evidence of deep vein thrombosis on either side. Valvular competence appears intact within the proximal deep venous systems bilaterally. The great saphenous veins appear bilaterally patent and compressible segmentally. Discussed importance of smoking cessation, blood sugar control, weight management, offloading, proper nutrition, and hygiene to optimize healing potential. Recent labs are significant for a CRP on 08/21/2020 of 208, and albumin on 05/12/2020 of 3.8, ESR on 08/21/2020 of 50, hemoglobin A1c on 08/22/2020 of 11.1%. Discussed importance of smoking cessation, blood sugar control, weight management, offloading, proper nutrition, and hygiene to optimize healing potential. Patient noted to have a surgical shoe for offloading purposes. 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 This would put significant wound pressure on his wounds which was delayed healing. Patient relates that he needs to have an income and that he is likely going to go back to work against my advice. Is also noted that patient is undergoing a significant deal of stress in his personal life given that he is undergoing a divorce. We will begin process of up application for TheraSkin skin grafts. To continue wound VAC therapy in the interim. Patient was denied graft approval. This is financially out of patient's reach as a deg-sb-vrohgr expense. We will continue with wound VAC at this time and continue wound care. Patient relates that he is applying for Medicaid. Discussed with patient that if he is approved to let us know we can try reapplying through his new insurance. All questions answered Patient to follow-up in 1 week This note was generated with [employer] dictation software. It may contain incorrect words, spelling, and punctuation that were not noted in checking the note before signing.
[2020-10-19 12:34] VITALS: BP 138/78; PULSE 85; RESP 18; TEMP 36.9; BMI 37.6
[2020-11-02 07:59] VITALS: BP 141/80; PULSE 69; RESP 20; TEMP 36.2; BMI 37.6
--- NOTE | 2020-11-02 08:59 | PCM.WC.PN ---
History of Present Illness Date of Service: 11/02/20 Chief Complaint: Right foot wound History of Wound: Patient is a follow-up from the hospital visit. Patient has significant medical history including diabetes, congestive heart failure, hypertension, obesity, venous insufficiency, history of NSTEMI and COVID-19. Patient was admitted for right great toe ulceration on 08/22/2020. 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 Patient then had wound VAC applied to the open wound. Patient also had IV line placed for infectious disease with treatment of Vanco and Zosyn until 10/03/2020. Patient relates that he wished to stop the IV antibiotics and is now taking Augmentin for [address] Nick. Patient cultures from surgery are noted to be positive for osteomyelitis. Patient following up from hospital visit for continued wound care. Patient is continuing wound VAC therapy Progress of Wound: Significantly improved size of right first amputation site ulceration. Subjective Subjective Patient seen and examined resting comfortably. Patient denies any new pedal complaints. Patient denies any nausea, fever, chills, chest pain, shortness of breath, cough, streaking, purulence, vomiting. Objective Data Objective Data Vital Signs: Vital Signs Temp Pulse Resp BP 97.1 F L 69 20 H 141/80 H 11/02/20 07:59 11/02/20 07:59 11/02/20 07:59 11/02/20 07:59 Oxygen Delivery Method Room Air Weight: 122.47 kg Body Mass Index (BMI) 37.6 Physical Exam Narrative Const alert and no apparent distress General Appearance: cooperative and comfortable Resp normal respiratory effort Effort and Inspection: able to speak in complete sentences Extremity normal capillary refill, no calf tenderness and no pedal edema General Extremity: no tenderness to palpation of joints or extremities and other findings Other Details: Capillary refill time less than 3 seconds noted to digits ; Negative for clubbing or cyanosis Skin General Skin Exam: atrophy and dry skin; Negative for ecchymosis, erythema, eschar, pallor or dermatitis Rashes: no rashes Wounds: wounds noted Wound Narrative: ulcers noted to right first ray amputation site down to the level of subcu. Wound to plantar fifth metatarsal head remains healed. No malodor, erythema, purulence, streaking, fluctuation, crepitus, or other signs of infection. Skin is atrophic and hairless. Granular base. Hallux amputation site is completely covered by granulation tissue with increasing depth filling in and overall improvement. There is less depth noted overall to this ulceration site. There is some mild maceration noted periulceration. Fifth metatarsal ulceration is healed DP and PT pulses diminished bilaterally Partial right first ray amputation. Neuro Gait (Neuro): antalgic and assistive device used Sensory Exam: extremities light-touch: decreased Motor Exam: strength 5/5 throughout Psych Appearance: appropriate Attitude: calm Debridement Note Debridement Note Post-Debridement Measurements and Additional Note: Post-Debridement Measurements/Treatment - Nurse 1 - General Ulcer Assessment Start: 10/12/20 11:32 Freq: Status: Active Protocol: RADHA Activity Type Activity Date Activity User E-Sign Co-Sign Detail Recorded Client Recorded Date Recorded By Document 10/12/20 11:32 [facility] [id number] 10/12/20 11:45 [facility] Document 10/19/20 12:34 DL Desktop 10/19/20 12:39 DL Document 11/02/20 07:59 MW [id number] 11/02/20 08:05 MW 10/12/20 10/19/20 11/02/20 11:32 12:34 07:59 - Today's Visit Information Type of service Follow-up Visit Nurse-only Follow-up Visit (Physician/MEDICAL LABORATORY SCIENTIST Visit (Physician/MEDICAL LABORATORY SCIENTIST ) ) Arrival Mode Ambulatory Ambulatory Ambulatory Transfer Assistance None None None Patient Identification Verified (Name & Yes Yes Yes ) Patient Requires Transmission-Based No No No Precautions Finger Stick Blood Sugar(mg/dl) (if 70 indicated): Blood Sugar Stated by Patient Height and Weight Body Mass Index (BMI) 37.6 37.6 37.6 BMI Classification Obese Obese Obese Vital Signs Temperature (97.8 F-99.1 F) 96 F L 98.4 F 97.1 F L Temperature Source Temporal Temporal Temporal Pulse Rate (60-100) 78 85 69 Pulse Location Monitor Monitor Monitor Respiratory Rate (12-18) 16 18 20 H Respiratory rate source Observation Observation Observation Oxygen Delivery Method Room Air Blood Pressure (90/60-120/80) 130/75 H 138/78 H 141/80 H Blood Pressure Mean (mm Hg) 93 98 100 Source Monitor Monitor Monitor Position Sitting Blood Pressure Location Left Arm History Since Last Visit- (Skip if this is Patient's initial visit) Have you changed medications since your No No No last visit? Any new allergies or adverse reactions No No No Had a fall/change in ADL's that may No No No increase risk of falls Signs or symptoms of abuse and/or No No No neglect since last visit Have you been in the hospital since your No No No last visit? Has dressing in place as prescribed Yes No Yes Has compression in place as prescribed Yes Yes Yes Has offloadiing in place as prescribed Yes N/A Experienced any changes in pain level or No No No management Left Footwear Regular Shoe Right Footwear Surgical Shoe with pressure relief insole Pain Scale: 0-10 Numeric Is Patient Pain Free? Yes Yes Yes WC - Nurse 1 - General Ulcer Measurement Start: 10/12/20 11:32 Freq: Status: Active Protocol: Activity Type Activity Date Activity User E-Sign Co-Sign Detail Recorded Client Recorded Date Recorded By Document 10/12/20 11:32 [facility] [id number] 10/12/20 11:45 BM Document 10/19/20 12:34 DL Desktop 10/19/20 12:39 DL Document 11/02/20 07:59 MW [id number] 11/02/20 08:05 MW 10/12/20 10/19/20 11/02/20 11:32 12:34 07:59 Wound Center Nurse 1 2-right 5th metatarsal ulcer -Combined with other wound No -Current Size (cm) - Length 0.1 -Current Size (cm) - Width 0.1 -Current Size (cm) - Depth 0.1 -Total Square Cm 0.01 -Epithelialization Large 67-100% #1 RIGHT GREAT TOE AMP SITE -Combined with other wound No -Current Size (cm) - Length 4.2 1.2 -Current Size (cm) - Width 3 1.5 -Current Size (cm) - Depth 0.4 0.3 -Total Square Cm 12.6 1.80 -Photo Taken No No No -Epithelialization Small 1-33% -Tunneling No -Undermining/Tunneling No -Undermining/Tunneling Starts (O'clock 1 ) -Undermining/Tunneling Ends (O'clock) 3 -Maximum Distance (cm) 0.3 -Circular Undermining No -Exudate Amt Large Medium Large -Exudate Type Serosanguineous Serosanguineous Serosanguineous -Wound Margin Thickened & Distinct, Thickened & Rolled Under Outline Rolled Under Attached -Granulation Amt Large (67-100%) Large (67-100%) Medium (34-66%) -Granulation Quality Red Red -Slough/Fibrin Yes -Necrosis Amt Small (1-33%) Medium (34-66%) Medium (34-66%) -Necrotic Tissue Type Adherent Slough Eschar Adherent Slough -Structure Exposed N/A N/A -Texture (Cathie-wound Skin Appearance) Assessed, Scarring Localized Edema Scarring ,Scarring -Moisture (Cathie-wound Skin Appearance) Assessed, Maceration Maceration Maceration -Color (Cathie-wound Skin Appearance) Assessed,Palor No Abnormality Rubor -Temperature (Cathie-wound Skin No Abnormality No Abnormality No Abnormality Appearance) (Pt Warm) (Pt Warm) (Pt Warm) -Tenderness on Palpation (Cathie-wound No No No Skin Appearance) -Ulcer Cleansing soapy water Wound Cleanser Wound Cleanser -Foul Odor after Cleansing No No No -Anesthetic Used 4% Lidocaine 4% Lidocaine Solution Solution WC - Nurse 2 - General Ulcer CM Notes Start: 10/12/20 11:32 Freq: Status: Active Protocol: Activity Type Activity Date Activity User E-Sign Co-Sign Detail Recorded Client Recorded Date Recorded By Document 10/12/20 12:09 [id number] 10/12/20 12:14 Document 11/02/20 08:20 JF [id number] 11/02/20 08:23 10/12/20 11/02/20 12:09 08:20 Wound Center Nurse 2 2-right 5th metatarsal ulcer -Time 12:12 -Correct Patient No -Correct Side, Site, Position No -Correct Procedure No -Procedure Performed No -Post Debridement (cm) - Length 0 -Post Debridement (cm) - Width 0 -Post Debridement (cm) - Depth 0 -Total Square (Post) (cm) 0 -Area of Debridement (cm) - Length 0 -Area of Debridement (cm) - Width 0 -Total Square (Area) (cm) 0 -Tunneling No -Undermining/Tunneling No -Circular Undermining No -Wound/Ulcer Outcome Healed- Epithelialized -Ulcer Cleansing Rinsed/ Irrigated with Saline -Foul Odor after Cleansing No -Bioengineered Tissue No -Bleeding Controlled with Pressure -Offloading Yes -Type of Offloading Surgical Shoe -Treatment Response Procedure Tolerated Well -Debridement - Subq, 1st 20sq cm No #1 RIGHT GREAT TOE AMP SITE -Time 12:09 08:21 -Correct Patient Yes Yes -Correct Side, Site, Position Yes Yes -Correct Procedure Yes Yes -Procedure Performed Yes Yes -Type of Procedure Debridement Debridement -Clinical Debridement Subcutaneous Subcutaneous -Tissue Removed Subcutaneous Subcutaneous -Post Debridement (cm) - Length 5.5 1.8 -Post Debridement (cm) - Width 3.3 1.8 -Post Debridement (cm) - Depth 1.1 1.1 -Total Square (Post) (cm) 18.15 3.24 -Area of Debridement (cm) - Length 5.5 1.8 -Area of Debridement (cm) - Width 3.3 1.8 -Total Square (Area) (cm) 18.15 3.24 -Tunneling No No -Undermining/Tunneling No No -Circular Undermining No No -Wound/Ulcer Outcome Not Healed Healed- Surgical Closure -Foul Odor after Cleansing No No -Bioengineered Tissue No No -Bleeding Controlled with Pressure Pressure -Offloading Yes Yes -Type of Offloading Surgical Shoe Surgical Shoe -Treatment Response Procedure Procedure Tolerated Well Tolerated Well -Debridement - Subq, 1st 20sq cm Yes Yes Pain Scale: 0-10 Numeric Is Patient Pain Free? Yes Yes - Nurse 3 - General Ulcer D/C NN Start: 10/12/20 11:32 Freq: Status: Active Protocol: Activity Type Activity Date Activity User E-Sign Co-Sign Detail Recorded Client Recorded Date Recorded By Document 10/12/20 12:14 [id number] 10/12/20 12:15 Document 10/19/20 12:34 DL Desktop 10/19/20 12:39 DL Document 11/02/20 08:50 MW [id number] 11/02/20 08:52 MW 10/12/20 10/19/20 11/02/20 12:14 12:34 08:50 Wound Care Nurse 3 #1 RIGHT GREAT TOE AMP SITE -Ulcer Cleansing Rinsed/ Wound Cleanser Rinsed/ Irrigated with Irrigated with Saline Saline -Foul Odor after Cleansing No No No -Negative Pressure Wound Therapy Continue Continue -Setting (mmHg) 150 150 -Negative Pressure is Continuous -Other Dressing BLACK FOAM -Other Covering DRAPE -NPWT Application Charge ($) NPWT </= 50 sq NPWT </= 50 sq NPWT </= 50 sq cm cm cm Cathie-Wound Care Barrier Right -Lotion applied to leg before No compression wrap -Compression Wrap Leonides Wrap Treatment Response Procedure Procedure Tolerated Well Tolerated Well Vital Signs Temperature (97.8 F-99.1 F) 98.4 F Temperature Source Temporal Pulse Rate (60-100) 85 Pulse Location Monitor Respiratory Rate (12-18) 18 Respiratory rate source Observation Blood Pressure (90/60-120/80) 138/78 H Blood Pressure Mean (mm Hg) 98 Source Monitor Pain Scale: 0-10 Numeric Is Patient Pain Free? Yes Yes Yes Teaching: Wound Center Dressing Your Wound -Person Taught Patient -Teaching Method Discussion, Demonstration -Response to teaching Verbalize understanding WC - Visit Discharge Discharge Condition Stable Stable Stable Ambulatory Status Wheelchair Ambulatory Ambulatory Transportation Private Auto Private Auto Private Auto Accompanied by SELF Medication Reconcilliation completed & Yes No provided to patient/care provider Clinical Summary of Care Provided Yes Yes Wound debrided: First ray amputation site Laterality: Right Wound Grade/Stage: Contreras 3 Type of Debridement: Excisional debridement Anesthesia Used: 4% Lidocaine Solution Depth: in the subcutaneous layer Percentage of wound debrided: 100 Instrument Used: #15 blade Tissue Removed: includes fibrous, devitalized, biofilm, callus and slough tissue Severity: Fat Layer Exposed Amount of bleeding with debridement: Mild Bleeding Controlled with: Pressure Patient tolerated procedure: Patient tolerated procedure well Assessment/Plan Assessment/Plan (1) Chronic ulcer of right foot with fat layer exposed: CODE(S): L97.512 - Non-pressure chronic ulcer of other part of right foot with fat layer exposed (2) Chronic kidney disease: CODE(S): N18.9 - Chronic kidney disease, unspecified QUALIFIERS: Chronic kidney disease stage: stage 3 (moderate) Chronic kidney disease stage 3 subtype: stage 3b (GFR 30-44) Qualified Code(s): N18.32 - Chronic kidney disease, stage 3b (3) Chronic diastolic (congestive) heart failure: CODE(S): I50.32 - Chronic diastolic (congestive) heart failure (4) Uncontrolled diabetes mellitus: CODE(S): E11.65 - Type 2 diabetes mellitus with hyperglycemia QUALIFIERS: Diabetes mellitus type: other specified (including IZABELA) Glycemic state: with hyperglycemia Qualified Code(s): E13.65 - Other specified diabetes mellitus with hyperglycemia PLAN: Patient seen and examined Patient noted to have wound to right first ray amputation site with more granulation tissue filling in. There is significant noted improvement in size of the wound since last visit. 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 Patient also noted to have osteomyelitis. Patient underwent surgery on 08/22/2020 for gas gangrene and right hallux diabetic foot ulceration. Patient clearance fragment of bone was noted to be positive for osteomyelitis growing Citrobacter, Proteus, Enterococcus, Prevotella. Patient was discharged from the hospital with home health care for wound VAC and IV antibiotics with a PICC line for vancomycin and Zosyn. Patient relates that he did not like to bother anyone so he asked if he can have the PICC line removed. The PICC line was removed and the patient continued on Augmentin 500-125 mg twice daily for [address] Nick's note Patient also relates that he is not very fond of the wound VAC. Discussed patient the importance of the wound VAC as far as helping to granulate in the deep tissue. This especially helps to fill in the depth of the wound from the amputation. It is noted that the cord to the wound VAC was pressed up against the skin and created a red area. Discussed with patient need to advocate for himself until home health care to pad up the wound VAC cord. This area is much improved. Wound VAC was reapplied today to the first amputation site. To continue wound VAC therapy dressings 3 times a week. Arterial studies from 08/22/2020 demonstrated Triphasic Doppler waveforms are noted at ankle level bilaterally. Pulse-volume recording waveform amplitudes are diminished at digital level on the right, but satisfactory at all other levels bilaterally. Resting ankle-brachial indices are normal bilaterally. The right digital-brachial index was not determined. The left digital-brachial index is normal. Venous studies from 08/22/2020 demonstrated Deep veins of the lower extremities are bilaterally patent and compressible segmentally. There is no evidence of deep vein thrombosis on either side. Valvular competence appears intact within the proximal deep venous systems bilaterally. The great saphenous veins appear bilaterally patent and compressible segmentally. Discussed importance of smoking cessation, blood sugar control, weight management, offloading, proper nutrition, and hygiene to optimize healing potential. Recent labs are significant for a CRP on 08/21/2020 of 208, and albumin on 05/12/2020 of 3.8, ESR on 08/21/2020 of 50, hemoglobin A1c on 08/22/2020 of 11.1%. Patient relates that he has cut carbs from his diet and has had significantly improved blood sugar readings with this morning being 70 Discussed importance of smoking cessation, blood sugar control, weight management, offloading, proper nutrition, and hygiene to optimize healing potential. Patient noted to have a surgical shoe for offloading purposes. After verbal consent was obtained patient had ulceration sharply debrided Is also noted that patient is undergoing a significant deal of stress in his personal life given that he is undergoing a divorce. We will begin process of up application for TheraSkin skin grafts given patient's new health insurance plan. To continue wound VAC therapy in the interim. All questions answered Patient to follow-up in 1 week This note was generated with joiz dictation software. It may contain incorrect words, spelling, and punctuation that were not noted in checking the note before signing.
--- NOTE | 2020-11-02 15:15 | WC ---
Patient called to let me know that he is having his 's insurance dropped so then he will only have [facility] which will hopefully approve his skin subs. I mentioned to the patient that we will check with his insurance Weds bu chances are he is covered till the end of the month. I stated to him that we will get the referral to [facility] once [employer] is dropped.
== END 2020-11-06 23:59 ==
LOC: WC 08:00
PROVIDERS: PCP Family Medicine; Referring Provider Internal Medicine; Visit Provider Podiatrist Foot & Ankle Surgery
DX: E11.621 Type 2 diabetes mellitus with foot ulcer (principal); L97.512 Non-pressure chronic ulcer of other part of right foot with fat layer exposed; N18.32 Chronic kidney disease, stage 3b; E11.65 Type 2 diabetes mellitus with hyperglycemia; I50.32 Chronic diastolic (congestive) heart failure; Z63.5 Disruption of family by separation and divorce; A48.0 Gas gangrene; B95.2 Enterococcus as the cause of diseases classified elsewhere; E11.22 Type 2 diabetes mellitus with diabetic chronic kidney disease; E11.52 Type 2 diabetes mellitus with diabetic peripheral angiopathy with gangrene; I13.0 Hypertensive heart and chronic kidney disease with heart failure and stage 1 through stage 4 chronic kidney disease, or unspecified chronic kidney disease; I25.2 Old myocardial infarction; I87.2 Venous insufficiency (chronic) (peripheral); E66.9 Obesity, unspecified
CPT/HCPCS: 11042; 97605

== ENCOUNTER 2020-11-23 08:00 | Outpatient (RCR) | payer OTHER, SELFPAY ==
[2018-12-25 08:56] VITALS: BMI 37.9
[2020-11-07 00:31] VITALS: BP 141/80; PULSE 69; RESP 20; TEMP 36.2
[2020-11-09 08:12] VITALS: BP 142/78; PULSE 79; RESP 20; TEMP 36.1; BMI 37.6
--- NOTE | 2020-11-09 08:43 | PN.PCM_ITS ---
History of Present Illness Date of Service: 11/09/20 Chief Complaint: Right foot wound History of Wound: Patient is a follow-up from the hospital visit. Patient has significant medical history including diabetes, congestive heart failure, hypertension, obesity, venous insufficiency, history of NSTEMI and COVID-19. Patient was admitted for right great toe ulceration on 08/22/2020. 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 Patient then had wound VAC applied to the open wound. Patient also had IV line placed for infectious disease with treatment of Vanco and Zosyn until 10/03/2020. Patient relates that he wished to stop the IV antibiotics and is now taking Augmentin for [address] Nick. Patient cultures from surgery are noted to be positive for osteomyelitis. Patient following up from hospital visit for continued wound care. Patient is continuing wound VAC therapy Progress of Wound: Some worsening with larger appearance mild malodor and macerated edges Subjective Subjective Patient seen and examined resting comfortably. Patient denies any new pedal complaints. He relates he did notice an odor to his foot but is unsure if it is wound infection or just the wound VAC smell. Patient denies any nausea, fever, chills, chest pain, shortness of breath, cough, streaking, purulence, vomiting. Objective Data Objective Data Vital Signs: Vital Signs Temp Pulse Resp BP 96.9 F L 79 20 H 142/78 H 11/09/20 08:12 11/09/20 08:12 11/09/20 08:12 11/09/20 08:12 Weight: 122.47 kg Body Mass Index (BMI) 37.6 Physical Exam Narrative Const alert and no apparent distress General Appearance: cooperative and comfortable Resp normal respiratory effort Effort and Inspection: able to speak in complete sentences Extremity normal capillary refill, no calf tenderness and no pedal edema General Extremity: no tenderness to palpation of joints or extremities and other findings Other Details: Capillary refill time less than 3 seconds noted to digits ; Negative for clubbing or cyanosis Skin General Skin Exam: atrophy and dry skin; Negative for ecchymosis, erythema, eschar, pallor or dermatitis Rashes: no rashes Wounds: wounds noted Wound Narrative: ulcers noted to right first ray amputation site down to the level of subcu. Wound to plantar fifth metatarsal head remains healed. Mild malodor and maceration periwound noted. No erythema, purulence, streaking, fluctuation, crepitus, or other signs of infection. Skin is atrophic and hairless. Granular base. Hallux amputation site is completely covered by granulation tissue. Fifth metatarsal ulceration is healed DP and PT pulses diminished bilaterally Partial right first ray amputation. Neuro Gait (Neuro): antalgic and assistive device used Sensory Exam: extremities light-touch: decreased Motor Exam: strength 5/5 throughout Psych Appearance: appropriate Attitude: calm Debridement Note Debridement Note Post-Debridement Measurements and Additional Note: Post-Debridement Measurements/Treatment WC - Nurse 1 - General Ulcer Assessment Start: 11/09/20 08:12 Freq: Status: Active Protocol: RADHA Activity Type Activity Date Activity User E-Sign Co-Sign Detail Recorded Client Recorded Date Recorded By Document 11/09/20 08:12 DL [id number] 11/09/20 08:19 DL 11/09/20 08:12 WC - Today's Visit Information Type of service 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 ) Arrival Mode Ambulatory Transfer Assistance Transfer Board Patient Identification Verified (Name & Yes ) Patient Requires Transmission-Based No Precautions Finger Stick Blood Sugar(mg/dl) (if 100 indicated): Blood Sugar Stated by Patient Height and Weight Body Mass Index (BMI) 37.6 BMI Classification Obese Vital Signs Temperature (97.8 F-99.1 F) 96.9 F L Temperature Source Temporal Pulse Rate (60-100) 79 Pulse Location Monitor Respiratory Rate (12-18) 20 H Respiratory rate source Observation Blood Pressure (90/60-120/80) 142/78 H Blood Pressure Mean (mm Hg) 99 Source Monitor History Since Last Visit- (Skip if this is Patient's initial visit) Have you changed medications since your No last visit? Any new allergies or adverse reactions No Had a fall/change in ADL's that may No increase risk of falls Signs or symptoms of abuse and/or No neglect since last visit Have you been in the hospital since your No last visit? Has dressing in place as prescribed Yes Has compression in place as prescribed Yes Has offloadiing in place as prescribed Yes Experienced any changes in pain level or No management Right Footwear Regular Shoe Pain Scale: 0-10 Numeric Is Patient Pain Free? Yes - Nurse 1 - General Ulcer Measurement Start: 11/09/20 08:12 Freq: Status: Active Protocol: Activity Type Activity Date Activity User E-Sign Co-Sign Detail Recorded Client Recorded Date Recorded By Document 11/09/20 08:12 EDISON [id number] 11/09/20 08:19 EDISON 11/09/20 08:12 Wound Center Nurse 1 #1 RIGHT GREAT TOE AMP SITE -Current Size (cm) - Length 1.4 -Current Size (cm) - Width 2 -Current Size (cm) - Depth 0.3 -Total Square Cm 2.8 -Photo Taken No -Undermining/Tunneling Starts (O'clock 12 ) -Undermining/Tunneling Ends (O'clock) 5 -Maximum Distance (cm) 0.4 -Exudate Amt Large -Exudate Type Serosanguineous -Wound Margin Thickened & Rolled Under -Granulation Amt Medium (34-66%) -Granulation Quality Red -Necrosis Amt Medium (34-66%) -Necrotic Tissue Type Adherent Slough -Structure Exposed N/A -Texture (Cathie-wound Skin Appearance) Scarring -Moisture (Cathie-wound Skin Appearance) Maceration -Color (Cathie-wound Skin Appearance) Rubor -Temperature (Cathie-wound Skin No Abnormality Appearance) (Pt Warm) -Tenderness on Palpation (Cathie-wound No Skin Appearance) -Ulcer Cleansing Wound Cleanser -Foul Odor after Cleansing No -Anesthetic Used 4% Lidocaine Solution - Nurse 2 - General Ulcer CM Notes Start: 11/09/20 08:12 Freq: Status: Active Protocol: Activity Type Activity Date Activity User E-Sign Co-Sign Detail Recorded Client Recorded Date Recorded By Document 11/09/20 08:28 HEATHER [id number] 11/09/20 08:33 HEATHER 11/09/20 08:28 Wound Center Nurse 2 -Time 08:28 -Correct Patient Yes -Correct Side, Site, Position Yes -Correct Procedure Yes -Procedure Performed Yes -Type of Procedure Debridement -Clinical Debridement Subcutaneous -Tissue Removed Subcutaneous -Post Debridement (cm) - Length 2.2 -Post Debridement (cm) - Width 2.2 -Post Debridement (cm) - Depth 1.1 -Total Square (Post) (cm) 4.84 -Area of Debridement (cm) - Length 2.2 -Area of Debridement (cm) - Width 2.2 -Total Square (Area) (cm) 4.84 -Tunneling No -Undermining/Tunneling No -Circular Undermining No -Wound/Ulcer Outcome Not Healed -Ulcer Cleansing Rinsed/ Irrigated with Saline -Foul Odor after Cleansing No -Bioengineered Tissue No -Bleeding Controlled with Pressure -Offloading Yes -Type of Offloading Surgical Shoe -Treatment Response Procedure Tolerated Well -Debridement - Subq, 1st 20sq cm Yes Pain Scale: 0-10 Numeric Is Patient Pain Free? Yes Wound debrided: Hallux amputation site Laterality: Right Type of Debridement: Excisional debridement Anesthesia Used: 4% Lidocaine Solution Depth: in the subcutaneous layer Percentage of wound debrided: 100 Instrument Used: #15 blade Tissue Removed: includes fibrous, devitalized, biofilm, callus and slough tissue Severity: Fat Layer Exposed Amount of bleeding with debridement: Mild Bleeding Controlled with: Pressure Patient tolerated procedure: Patient tolerated procedure well Assessment/Plan Assessment/Plan (1) Chronic ulcer of right foot with fat layer exposed: CODE(S): L97.512 - Non-pressure chronic ulcer of other part of right foot with fat layer exposed (2) Osteomyelitis: CODE(S): M86.9 - Osteomyelitis, unspecified QUALIFIERS: Osteomyelitis type: other acute Osteomyelitis location: foot Laterality: right Qualified Code(s): M86.171 - Other acute osteomyelitis, right ankle and foot (3) Uncontrolled diabetes mellitus: CODE(S): E11.65 - Type 2 diabetes mellitus with hyperglycemia QUALIFIERS: Diabetes mellitus type: other specified (including IZABELA) Glycemic state: with hyperglycemia Qualified Code(s): E13.65 - Other specified diabetes mellitus with hyperglycemia (4) Chronic kidney disease: CODE(S): N18.9 - Chronic kidney disease, unspecified QUALIFIERS: Chronic kidney disease stage: stage 3 (moderate) Chronic kidney disease stage 3 subtype: stage 3b (GFR 30-44) Qualified Code(s): N18.32 - Chronic kidney disease, stage 3b (5) Venous insufficiency: CODE(S): I87.2 - Venous insufficiency (chronic) (peripheral) PLAN: Patient seen and examined Patient noted to have wound to right first ray amputation site with more granulation tissue filling in. There is mild malodor noted today with periwound maceration worsening. Discussed patient to take wound VAC break that this is likely contributing. Besides the malodor there is no other cardinal signs of i nfection. It is likely that the malodor could be from the maceration caused by the wound VAC. 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 Patient also noted to have osteomyelitis. He has finished course of antibiotics per infectious disease Patient underwent surgery on 08/22/2020 for gas gangrene and right hallux diabetic foot ulceration. Patient clearance fragment of bone was noted to be positive for osteomyelitis growing Citrobacter, Proteus, Enterococcus, Prevotella. Arterial studies from 08/22/2020 demonstrated Triphasic Doppler waveforms are noted at ankle level bilaterally. Pulse-volume recording waveform amplitudes are diminished at digital level on the right, but satisfactory at all other levels bilaterally. Resting ankle-brachial indices are normal bilaterally. The right digital-brachial index was not determined. The left digital-brachial index is normal. Venous studies from 08/22/2020 demonstrated Deep veins of the lower extremities are bilaterally patent and compressible segmentally. There is no evidence of deep vein thrombosis on either side. Valvular competence appears intact within the proximal deep venous systems bilaterally. The great saphenous veins appear bilaterally patent and compressible segmentally. Discussed importance of smoking cessation, blood sugar control, weight management, offloading, proper nutrition, and hygiene to optimize healing potential. Recent labs are significant for a CRP on 08/21/2020 of 208, and albumin on 05/12/2020 of 3.8, ESR on 08/21/2020 of 50, hemoglobin A1c on 08/22/2020 of 11.1%. Discussed importance of smoking cessation, blood sugar control, weight management, offloading, proper nutrition, and hygiene to optimize healing pot ential. Patient noted to have a surgical shoe for offloading purposes. After verbal consent was obtained patient had ulceration sharply debrided Is also noted that patient is undergoing a significant deal of stress in his personal life given that he is undergoing a divorce. Patient has been denied TheraSkin graft coverage. Patient is noted to be transitioning to a new insurance company. Once this transition period has been completed we will rerun numbers to see if skin graft would be covered under new insurance plan. Patient to have macerated wound edges painted with Betadine with Pretty to wound base to be changed daily. Prior to application of graft to wash with soap and water and dry well. Patient will be trained how to apply properly on nonhome health care days. To be covered with Tubigrip for swelling control. All questions answered Patient to follow-up in 1 week This note was generated with [employer] dictation software. It may contain incorrect words, spelling, and punctuation that were not noted in checking the note before signing.
[2020-11-23 07:59] VITALS: BP 162/85; PULSE 70; RESP 16; TEMP 35.9; BMI 37.6
--- NOTE | 2020-11-23 09:00 | PN.PCM_ITS ---
History of Present Illness Date of Service: 11/23/20 Chief Complaint: Right foot wound History of Wound: Patient is a follow-up from the hospital visit. Patient has significant medical history including diabetes, congestive heart failure, hypertension, obesity, venous insufficiency, history of NSTEMI and COVID-19. Patient was admitted for right great toe ulceration on 08/22/2020. 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 Patient then had wound VAC applied to the open wound. Patient also had IV line placed for infectious disease with treatment of Vanco and Zosyn until 10/03/2020. Patient relates that he wished to stop the IV antibiotics and is now taking Augmentin for [address] Nick. Patient cultures from surgery are noted to be positive for osteomyelitis. Patient following up from hospital visit for continued wound care. Patient is continuing wound VAC therapy Progress of Wound: Improvement with smaller size and callus buildup Subjective Subjective Patient seen and examined resting comfortably. Patient denies any new pedal complaints. Patient denies any nausea, fever, chills, chest pain, shortness of breath, cough, streaking, purulence, vomiting. Objective Data Objective Data Vital Signs: Vital Signs Temp Pulse Resp BP 96.6 F L 70 16 162/85 H 11/23/20 07:59 11/23/20 07:59 11/23/20 07:59 11/23/20 07:59 Oxygen Delivery Method Room Air Weight: 122.47 kg Body Mass Index (BMI) 37.6 Physical Exam Narrative Const alert and no apparent distress General Appearance: cooperative and comfortable Resp normal respiratory effort Effort and Inspection: able to speak in complete sentences Extremity normal capillary refill, no calf tenderness and no pedal edema General Extremity: no tenderness to palpation of joints or extremities and other findings Other Details: Capillary refill time less than 3 seconds noted to digits ; Negative for clubbing or cyanosis Skin General Skin Exam: atrophy and dry skin; Negative for ecchymosis, erythema, esch ar, pallor or dermatitis Rashes: no rashes Wounds: wounds noted Wound Narrative: ulcer noted to right first ray amputation site down to the level of subcu. Wound to plantar fifth metatarsal head remains healed. Mild malodor and maceration periwound noted. No erythema, purulence, streaking, fluctuation, crepitus, or other signs of infection. Skin is atrophic and hairless. Periulcerative callus buildup noted. Granular base. Hallux amputation site bone is completely covered by granulation tissue. Fifth metatarsal ulceration is healed DP and PT pulses diminished bilaterally Partial right first ray amputation. Neuro Gait (Neuro): antalgic and assistive device used Sensory Exam: extremities light-touch: decreased Motor Exam: strength 5/5 throughout Psych Appearance: appropriate Attitude: calm Debridement Note Debridement Note Post-Debridement Measurements and Additional Note: Post-Debridement Measurements/Treatment - Nurse 1 - General Ulcer Assessment Start: 11/09/20 08:12 Freq: Status: Active Protocol: LUC.CINTHIA Activity Type Activity Date Activity User E-Sign Co-Sign Detail Recorded Client Recorded Date Recorded By Document 11/09/20 08:12 DL [id number] 11/09/20 08:19 DL Document 11/23/20 07:59 BM [id number] 11/23/20 08:02 BM 11/09/20 11/23/20 08:12 07:59 - Today's Visit Information Type of service Follow-up Visit Follow-up Visit (Physician/CAR RENTAL SALES ASSISTANT (Physician/CAR RENTAL SALES ASSISTANT ) ) Arrival Mode Ambulatory Ambulatory Transfer Assistance Transfer Board None Patient Identification Verified (Name & Yes Yes ) Patient Requires Transmission-Based No No Precautions Finger Stick Blood Sugar(mg/dl) (if 100 indicated): Blood Sugar Stated by Patient Height and Weight Body Mass Index (BMI) 37.6 37.6 BMI Classification Obese Obese Vital Signs Temperature (97.8 F-99.1 F) 96.9 F L 96.6 F L Temperature Source Temporal Temporal Pulse Rate (60-100) 79 70 Pulse Location Monitor Monitor Respiratory Rate (12-18) 20 H 16 Respiratory rate source Observation Observation Oxygen Delivery Method Room Air Blood Pressure (90/60-120/80) 142/78 H 162/85 H Blood Pressure Mean (mm Hg) 99 110 Source Monitor Monitor Position Sitting Blood Pressure Location Left Arm History Since Last Visit- (Skip if this is Patient's initial visit) Have you changed medications since your No No last visit? Any new allergies or adverse reactions No No Had a fall/change in ADL's that may No No increase risk of falls Signs or symptoms of abuse and/or No No neglect since last visit Have you been in the hospital since your No No last visit? Has dressing in place as prescribed Yes Yes Has compression in place as prescribed Yes N/A Has offloadiing in place as prescribed Yes No Experienced any changes in pain level or No No management Left Footwear Regular Shoe Right Footwear Regular Shoe Regular Shoe Pain Scale: 0-10 Numeric Is Patient Pain Free? Yes Yes WC - Nurse 1 - General Ulcer Measurement Start: 11/09/20 08:12 Freq: Status: Active Protocol: Activity Type Activity Date Activity User E-Sign Co-Sign Detail Recorded Client Recorded Date Recorded By Document 11/09/20 08:12 DL [id number] 11/09/20 08:19 DL Document 11/23/20 07:59 BMF [id number] 11/23/20 08:02 BMF 11/09/20 11/23/20 08:12 07:59 Wound Center Nurse 1 #1 RIGHT GREAT TOE AMP SITE -Combined with other wound No -Current Size (cm) - Length 1.4 1.6 -Current Size (cm) - Width 2 2.2 -Current Size (cm) - Depth 0.3 0.3 -Total Square Cm 2.8 3.52 -Photo Taken No No -Epithelialization None Present -Tunneling No -Undermining/Tunneling Yes -Undermining/Tunneling Starts (O'clock 12 9 ) -Undermining/Tunneling Ends (O'clock) 5 11 -Maximum Distance (cm) 0.4 0.4 -Circular Undermining No -Exudate Amt Large Medium -Exudate Type Serosanguineous Serosanguineous -Wound Margin Thickened & Thickened Rolled Under -Granulation Amt Medium (34-66%) Large (67-100%) -Granulation Quality Red [place] -Slough/Fibrin Yes -Necrosis Amt Medium (34-66%) Small (1-33%) -Necrotic Tissue Type Adherent Slough Adherent Slough -Structure Exposed N/A -Texture (Cathie-wound Skin Appearance) Scarring Assessed, Scarring -Moisture (Cathie-wound Skin Appearance) Maceration Assessed -Color (Cathie-wound Skin Appearance) Rubor Assessed -Temperature (Cathie-wound Skin No Abnormality No Abnormality Appearance) (Pt Warm) (Pt Warm) -Tenderness on Palpation (Cathie-wound No No Skin Appearance) -Ulcer Cleansing Wound Cleanser Rinsed/ Irrigated with Saline -Foul Odor after Cleansing No No -Anesthetic Used 4% Lidocaine 4% Lidocaine Solution Solution - Nurse 2 - General Ulcer CM Notes Start: 11/09/20 08:12 Freq: Status: Active Protocol: Activity Type Activity Date Activity User E-Sign Co-Sign Detail Recorded Client Recorded Date Recorded By Document 11/09/20 08:28 HEATHER [id number] 11/09/20 08:33 Document 11/23/20 08:11 [id number] 11/23/20 08:18 11/09/20 11/23/20 08:28 08:11 Wound Center Nurse 2 #1 RIGHT GREAT TOE AMP SITE -Time 08:28 08:12 -Correct Patient Yes Yes -Correct Side, Site, Position Yes Yes -Correct Procedure Yes Yes -Procedure Performed Yes Yes -Type of Procedure Debridement Debridement -Clinical Debridement Subcutaneous Subcutaneous -Tissue Removed Subcutaneous Subcutaneous -Post Debridement (cm) - Length 2.2 1.7 -Post Debridement (cm) - Width 2.2 1.4 -Post Debridement (cm) - Depth 1.1 0.6 -Total Square (Post) (cm) 4.84 2.38 -Area of Debridement (cm) - Length 2.2 1.7 -Area of Debridement (cm) - Width 2.2 1.4 -Total Square (Area) (cm) 4.84 2.38 -Tunneling No No -Undermining/Tunneling No No -Circular Undermining No No -Wound/Ulcer Outcome Not Healed Not Healed -Ulcer Cleansing Rinsed/ Rinsed/ Irrigated with Irrigated with Saline Saline -Foul Odor after Cleansing No No -Bioengineered Tissue No No -Bleeding Controlled with Pressure Pressure -Offloading Yes -Type of Offloading Surgical Shoe Surgical Shoe -Treatment Response Procedure Procedure Tolerated Well Tolerated Well -Debridement - Subq, 1st 20sq cm Yes Yes Pain Scale: 0-10 Numeric Is Patient Pain Free? Yes Yes - Nurse 3 - General Ulcer D/C NN Start: 11/09/20 08:12 Freq: Status: Active Protocol: Activity Type Activity Date Activity User E-Sign Co-Sign Detail Recorded Client Recorded Date Recorded By Document 11/23/20 08:24 HEATHER [id number] 11/23/20 08:24 11/23/20 08:24 Wound Care Nurse 3 #1 RIGHT GREAT TOE AMP SITE -Ulcer Cleansing Rinsed/ Irrigated with Saline -Foul Odor after Cleansing No -Primary Dressing Applied Promogran Pretty Matter -Primary Dressing Covered/Secured with Dry Gauze & Roll Gauze, Secured with Tape -Promogran Pretty Matter 1 Right -Tubular Bandage Double Layer -Size of Tubigrip Used Size E -Size E ($) 2 Pain Scale: 0-10 Numeric Is Patient Pain Free? Yes WC - Visit Discharge Discharge Condition Stable Ambulatory Status Ambulatory Transportation Private Auto Medication Reconcilliation completed & Yes provided to patient/care provider Clinical Summary of Care Provided Yes Wound debrided: First ray amputation site Laterality: Left Wound Grade/Stage: Contreras 3 Type of Debridement: Excisional debridement Anesthesia Used: 4% Lidocaine Solution Depth: in the subcutaneous layer Percentage of wound debrided: 100 Instrument Used: #15 blade Tissue Removed: includes fibrous, devitalized, biofilm, callus and slough tissue Severity: Fat Layer Exposed Amount of bleeding with debridement: Mild Bleeding Controlled with: Pressure Patient tolerated procedure: Patient tolerated procedure well Assessment/Plan Assessment/Plan (1) Chronic ulcer of right foot with fat layer exposed: CODE(S): L97.512 - Non-pressure chronic ulcer of other part of right foot with fat layer exposed (2) Osteomyelitis: CODE(S): M86.9 - Osteomyelitis, unspecified QUALIFIERS: Osteomyelitis type: other acute Osteomyelitis location: foot Laterality: right Qualified Code(s): M86.171 - Other acute osteomyelitis, right ankle and foot (3) Uncontrolled diabetes mellitus: CODE(S): E11.65 - Type 2 diabetes mellitus with hyperglycemia QUALIFIERS: Diabetes mellitus type: other specified (including IZABELA) Glycemic state: with hyperglycemia Qualified Code(s): E13.65 - Other specified diabetes mellitus with hyperglycemia (4) Chronic kidney disease: CODE(S): N18.9 - Chronic kidney disease, unspecified QUALIFIERS: Chronic kidney disease stage: stage 3 (moderate) Chronic kidney disease stage 3 subtype: stage 3b (GFR 30-44) Qualified Code(s): N18.32 - Chronic kidney disease, stage 3b (5) Venous insufficiency: CODE(S): I87.2 - Venous insufficiency (chronic) (peripheral) PLAN: Patient seen and examined Patient noted to have wound to right first ray amputation site with more granulation tissue filling in. There is no signs of infection. Discussed discontinuing the wound VAC at this time. Patient is very happy about this. 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 Patient also noted to have osteomyelitis. He has finished course of antibiotics per infectious disease Patient underwent surgery on 08/22/2020 for gas gangrene and right hallux diabetic foot ulceration. Patient clearance fragment of bone was noted to be positive for osteomyelitis growing Citrobacter, Proteus, Enterococcus, Prevotella. Arterial studies from 08/22/2020 demonstrated Triphasic Doppler waveforms are noted at ankle level bilaterally. Pulse-volume recording waveform amplitudes are diminished at digital level on the right, but satisfactory at all other levels bilaterally. Resting ankle-brachial indices are normal bilaterally. The right digital-brachial index was not determined. The left digital-brachial index is normal. Venous studies from 08/22/2020 demonstrated Deep veins of the lower extremities a re bilaterally patent and compressible segmentally. There is no evidence of deep vein thrombosis on either side. Valvular competence appears intact within the proximal deep venous systems bilaterally. The great saphenous veins appear bilaterally patent and compressible segmentally. Discussed importance of smoking cessation, blood sugar control, weight management, offloading, proper nutrition, and hygiene to optimize healing potential. Recent labs are significant for a CRP on 08/21/2020 of 208, and albumin on 05/12/2020 of 3.8, ESR on 08/21/2020 of 50, hemoglobin A1c on 08/22/2020 of 11.1%. Discussed importance of smoking cessation, blood sugar control, weight management, offloading, proper nutrition, and hygiene to optimize healing potential. Patient noted to have a surgical shoe for offloading purposes. After verbal consent was obtained patient had ulceration sharply debrided Is also noted that patient is undergoing a significant deal of stress in his personal life given that he is undergoing a divorce. Patient has been denied TheraSkin graft coverage. Patient to wash foot daily and do dressing changes daily with Pretty to wound base to be changed daily. Patient will be trained how to apply properly on nonhome health care days. To be covered with Tubigrip for swelling control. Patient to have finished with home health care All questions answered Patient to follow-up in 1 week This note was generated with [employer]ation software. It may contain incorrect words, spelling, and punctuation that were not noted in checking the note before signing.
== END 2020-12-07 23:59 ==
LOC: WC 08:00
PROVIDERS: PCP Family Medicine; Referring Provider Internal Medicine; Visit Provider Podiatrist Foot & Ankle Surgery
DX: E11.621 Type 2 diabetes mellitus with foot ulcer (principal); L97.512 Non-pressure chronic ulcer of other part of right foot with fat layer exposed; M86.171 Other acute osteomyelitis, right ankle and foot; E11.65 Type 2 diabetes mellitus with hyperglycemia; E11.22 Type 2 diabetes mellitus with diabetic chronic kidney disease; N18.32 Chronic kidney disease, stage 3b; I87.2 Venous insufficiency (chronic) (peripheral); I13.0 Hypertensive heart and chronic kidney disease with heart failure and stage 1 through stage 4 chronic kidney disease, or unspecified chronic kidney disease; E66.9 Obesity, unspecified; I25.2 Old myocardial infarction; I50.9 Heart failure, unspecified; Z63.5 Disruption of family by separation and divorce; E11.52 Type 2 diabetes mellitus with diabetic peripheral angiopathy with gangrene; Z86.16 Personal history of COVID-19; B95.2 Enterococcus as the cause of diseases classified elsewhere
CPT/HCPCS: 11042

== ENCOUNTER 2020-12-26 17:26 | Inpatient (IN) | payer OTHER, SELFPAY ==
[2018-12-25 08:56] VITALS: BMI 37.9
[2020-12-26] VITALS (7 sets, daily range): BP systolic 128–165; BP diastolic 68–90; PULSE 74–77; RESP 16–18; TEMP 36.5–36.9; O2SAT 97–158; BMI 38.5
--- NOTE | 2020-12-26 17:47 | RAD_ITS ---
EXAM: XR LEFT FOOT COMPLETE, 3 OR MORE VIEWS : 1970 CLINICAL INDICATION: WOUND TECHNIQUE: Frontal, lateral and oblique views of the left foot. This report was created using [employer] report generation technology. COMPARISON: None. FINDINGS: BONES/JOINTS: Unremarkable. No acute fracture. No subluxation. Normal alignment. Preservation of the joint space. No sclerotic or destructive changes observed. SOFT TISSUES: There is mild soft tissue swelling over the dorsum of the foot. No radiopaque foreign body. RAD/Foot min 3 Views IMPRESSION: Soft tissue swelling with no osseous abnormalities. at 1823 Reported and signed by: Enrique Johnson MD Electronically Signed: Enrique Johnson MD at 18:21 EDT Tel , Service support ,
[2020-12-26 17:58] LABS: Absolute Lymphocyte Count 1.13 X10^3/uL (0.83-4.51); Absolute Neutrophil Count 10.9 X10^3/uL (2.0-7.7); Basophil# 0.05 X10^3/uL; Basophil% 0.4 % (0-1); Eosinophil# 0.09 X10^3/uL; Eosinophils% 0.7 % (0-5); Hematocrit 29.6 % (40-54); Hemoglobin 9.1 g/dL (13.0-16.5); Lymphocyte # 1.13 X10^3/ul (0.83-4.51); Lymphocyte % 8.6 % (19-41); Mean Corp Hgb Conc 30.7 g/dL (32-36); Mean Corpuscular Hgb 26.1 pg (27.0-32.0); Mean Corpuscular Volume 84.8 fL (80-94); Mean Platelet Vol. 10.6 fl (6.2-12.0); Monocyte# 0.82 X10^3/uL; Monocyte% 6.3 % (0-10); NRBC Flagged by Analyzer 0 % (0-5); Neutrophil # 10.91 X10^3/uL (2.7-7.7); Neutrophil % 83.4 % (47-70); Platelet Count 447 K/mm3 (150-450); RBC Distribution Width CV 13.8 % (11.6-14.6); Red Blood Count 3.49 M/mm3 (4.6-6.2); White Blood Count 13.1 K/mm3 (4.4-11.0)
[2020-12-26 18:16] LABS: Anion Gap 4 (5-15); BUN 74 mg/dL (7-18); BUN/Creat Ratio 26.1 RATIO (10-20); Calcium,Total 9.5 mg/dL (8.5-10.1); Chloride 100 mmol/L (98-107); Creatinine, Serum 2.84 mg/dL (0.70-1.30); EST Glomerular Filtration Rate 25 mL/min (>60); Est Glom Filt Rate - Afr Amer 30 mL/min (>60); Estimated Creatinine Clearance 32.41 ml/min; Glucose 353 mg/dL (74-106); Potassium 4.8 mmol/L (3.5-5.1); Sodium Level 132 mmol/L (136-145)
[2020-12-26 18:23] LABS: Lactic Acid 1.2 mmol/L (0.4-1.9)
--- NOTE | 2020-12-26 18:48 | ED.VIS.LOWEX ---
HPI History of Present Illness HPI Narrative: Status post puncture wound normal left foot now infected. Chief Complaint: Wound Informant: patient Occured/Mechanism Mechanism/Context: Yes injury Onset/Context/Timing Onset: Weeks Context: Gradual Onset Timing: Continuous Quality of Pain: Dull Current Severity: Mild Maximum Severity: Mild Narrative Narrative: 50-year-old diabetic male had some type of puncture wound to his left foot 1 to 2 weeks ago. He said he was trying to doctor at home. Using antibiotic ointment. There is now pus draining from his heel and a breakdown of the skin. He denies any fever or chills. He denies any nausea vomiting or diarrhea. Prior similar symptoms: No Recent Illness/Hospitalization: No [facility] Medical History Atherosclerotic heart disease of [place] coronary artery without angina pectoris Chronic diastolic (congestive) heart failure Diabetes mellitus, type II Essential (primary) hypertension History of non-ST elevation myocardial infarction (NSTEMI) (03/15/20) History of stress test Hyperlipidemia Ischemic cardiomyopathy (06/2013) Obesity Pneumonia due to COVID-19 virus (03/14/20) Venous insufficiency Home Medications Mag-Ox 400 1 tab PO DAILY 09/28/14 [History Last Taken 12/20/18] aspirin 81 mg PO DAILY@0800 09/28/14 [History Last Taken 12/20/18] nitroglycerin 0.4 mg sublingual tablet 0.4 mg SUBLINGUAL Q5-15M PRN 04/20/17 [History Last Taken Unknown] atorvastatin 80 mg PO QHS 12/20/18 [History Last Taken 12/19/18] clopidogrel 75 mg PO DAILY #90 tab 12/25/18 [Rx Last Taken Unknown] glimepiride 2 mg tablet 2 mg PO QAM #90 tab 03/11/19 [Rx Last Taken Unknown] hydralazine 25 mg tablet 25 mg PO .COMPLEX #90 tab 09/08/19 [Rx Last Taken Unknown] hydralazine 50 mg tablet 50 mg PO .COMPLEX #90 tab 09/08/19 [Rx Last Taken Unknown] furosemide 40 mg tablet 40 mg PO .COMPLEX #240 tab 11/18/19 [Rx Last Taken Unknown] amlodipine 5 mg tablet 5 mg PO DAILY #90 tab 02/16/20 [Rx Last Taken Unknown] Trulicity 0.75 mg SUBCUT TH 08/21/20 [History Last Taken Unknown] insulin glargine 15 unit SC DAILY #0 ml 08/26/20 [Rx Last Taken Unknown] amoxicillin 500 mg-potassium clavulanate 125 mg tablet 1 tab PO BID 09/03/20 [History Last Taken Unknown] isosorbide mononitrate 60 mg tablet,extended release 24 hr 60 mg PO DAILY #90 tab 10/25/20 [Rx Last Taken Unknown] losartan 25 mg tablet 25 mg PO DAILY #90 tab 10/25/20 [Rx Last Taken Unknown] metoprolol succinate 100 mg tablet,extended release 24 hr 100 mg PO DAILY #90 tab 10/25/20 [Rx Last Taken Unknown] Allergy/AdvReac Type Severity Reaction Status Date / Time lisinopril AdvReac Intermediate Cough Verified 12/26/20 17:34 losartan AdvReac Intermediate cough Verified 12/26/20 17:34 Family History Father , Age 57 from [place] Myocardial infarction CAD (coronary artery disease) Sudden cardiac Mother Sick sinus syndrome Sister Diabetes Surgical History H/O cardiac catheterization History of coronary artery stent placement (01/02/19) Social History Smoking Status: Never smoker ROS ROS ED ROS Narrative Denies nausea, vomiting, diarrhea or fever or chills. Review of Systems ROS Unobtainable: Denies due to encephalopathy Constitutional Constitutional ED: Denies chills or fever(s) Eyes Eyes: Denies change in vision ENT ENT ED: Denies ear pain or sore throat Cardiovascular Cardiovascular: Denies chest pain Respiratory/Chest Respiratory/Chest: Denies cough or dyspnea Gastrointestinal Gastrointestinal: Denies abdominal pain, diarrhea, nausea or vomiting Genitourinary Genitourinary ED: Denies dysuria Musculoskeletal Musculoskeletal: Denies myalgias Integumentary Denies rash Neurologic Neurologic: Denies headache(s) Psychiatric Psychiatric: Denies depression Endocrine Endocrinology: Denies polyuria Hematologic/Lymphatic Hematologic/Lymphatic: Denies easy bruising Allergic/Immunologic Allergic/Immunologic ED: Denies urticaria EXAM Physical Exam Narrative Exam Narrative: White male no acute distress. Vital signs stable afebrile. HEENT exam unremarkable. Lungs are clear. Heart regular rate and rhythm. Abdomen soft nontender normal bowel sounds no peritoneal signs. Left lower extremity to the foot and here are swollen. There is redness consistent with cellulitis. There is reyna pus draining from his heel where the skin is broken down. There is mild edema of the foot and ankle area. He is able to wiggle his toes. Dorsi plantar flexion is intact. There is no lymphangitic streaking and there is no inguinal lymphadenopathy. Neurologically is awake and alert. No focal motor deficits. Const Vital Signs: 12/26/20 17:27 12/26/20 18:41 12/26/20 18:44 Temperature 97.8 F 97.7 F L 97.7 F L Temperature Source Temporal Temporal Temporal Pulse Rate 76 77 Respiratory Rate 16 18 18 Blood Pressure 128/68 H 158/90 H 158/90 H Blood Pressure Mean 88 112 112 Pulse Ox 98 158 Oxygen Delivery Method Room Air Room Air Positive well nourished and well developed; Negative for obese, cachectic, contractures or unkempt General Appearance ED: well developed and NAD; Negative for unkempt, cachectic or contractures Nutritional Appearance: Negative for cachectic or obese HEENT Reports moist mucous membranes normocephalic and atraumatic; Negative for trauma Eyes PERRL Neck full ROM and supple Thyroid: Negative for tender Chest Wall inspection of chest normal and palpation of chest normal Resp normal respiratory effort, no retractions and clear to auscultation bilaterally Auscultation: Negative for rales, rhonchi or wheezes Cardio regular rate, regular rhythm, S1 normal heart sound, S2 normal heart sound and no murmurs GI non-tender, non-distended and no masses Auscultation: normoactive bowel sounds Palpation: soft; Negative for tender or guarding Back/Spine no CVA tenderness General Back: Negative for CVA tenderness Extremity Extremity Narrative: Left foot swollen, tender, cellulitis. Breakdown of skin on the heel with reyna purulent discharge. No lymphangitic streaking. No lymph adenopathy. Dorsi plantar flexion intact. Neuro oriented x3 and moves all extremities Sensorium / Orientation: alert, oriented to person, oriented to place and oriented to time; Negative for orientation impaired Psych mental status grossly normal Appearance: Negative for unkempt Skin no wounds Lesions: no lesions Rashes: no rashes Trauma: Negative for abrasion MDM MDM MDM Narrative Medical decision making narrative: Diabetic male with diabetic foot infection. We started IV antibiotics. Will be admitted to hospitalist with consult to podiatry. Lab Data Attestation: I reviewed the patient's lab results. Lab results narrative: CBC shows a white count of 13.1. Hemoglobin 9.1 which is baseline chronic anemia. Sodium 132. Gap of 4 BUN of 74 creatinine 2.84 which is consistent with his chronic renal insufficiency. Glucose elevated 353. Lactic acid 1.2. Labs: Laboratory Results - last 24 hr 12/26/20 12/26/20 12/26/20 17:45 17:45 17:45 WBC 13.1 H RBC 3.49 L Hgb 9.1 L Hct 29.6 L MCV 84.8 MCH 26.1 L MCHC 30.7 L RDW Std Deviation 43.0 RDW Coeff of Rajendra 13.8 Plt Count 447 MPV 10.6 Immature Gran % (Auto) 0.600 Neut % (Auto) 83.4 H Lymph % (Auto) 8.6 L Stanley % (Auto) 6.3 Eos % (Auto) 0.7 Baso % (Auto) 0.4 Absolute Neuts (auto) 10.9 H Absolute Lymphs (auto) 1.13 Nucleated RBC % 0 Sodium 132 L Potassium 4.8 Chloride 100 Carbon Dioxide 28.0 Anion Gap 4 L BUN 74 H Creatinine 2.84 H Estim Creat Clear Calc 32.41 Est GFR (MDRD) Af Amer 30 L Est GFR (MDRD) Non-Af 25 L BUN/Creatinine Ratio 26.1 H Glucose 353 H Lactic Acid 1.2 Calcium 9.5 Radiography Diagnostic Testing: Radiology Impression Foot X-Ray 12/26/20 17:47 IMPRESSION: Soft tissue swelling with no osseous abnormalities. at 1823 Reported and signed by: Enrique Johnson MD Electronically Signed: Enrique Johnson MD at 18:21 EDT Tel , Service support , X-ray left foot 3 views shows soft tissue swelling but no acute bony abnormality. Interpreted both by myself and the radiologist. No obvious signs of osteomyelitis on the plain film. Discharge Plan Triage Chief Complaint: Wound ED Provider: Karsten Lundberg Dx/Rx/DC Orders Clinical Impression: Diabetic infection of left foot, Acute hyperglycemia Prescriptions: No Action nitroglycerin 0.4 mg tablet, sublingual 0.4 mg SUBLINGUAL Q5-15M PRN (Reason: Cardiac/Chest Pain) RF: 0 glimepiride 2 mg tablet 2 mg PO QAM Qty: 90 RF: 0 furosemide 40 mg tablet 40 mg PO .COMPLEX Qty: 240 RF: 3 Mag-Ox 400 1 tab PO DAILY RF: 0 aspirin 81 MG tablet,chewable 81 mg PO DAILY@0800 RF: 0 atorvastatin 80 MG tablet 80 mg PO QHS RF: 0 clopidogrel 75 MG tablet 75 mg PO DAILY Qty: 90 RF: 0 Trulicity 0.75 mg/0.5 mL pen injector 0.75 mg SUBCUT TH RF: 0 insulin glargine 100 unit/mL (3 mL) insulin pen 15 unit SC DAILY Qty: 0 RF: 0 hydralazine 50 mg tablet 50 mg PO .COMPLEX Qty: 90 RF: 11 hydralazine 25 mg tablet 25 mg PO .COMPLEX Qty: 90 RF: 11 amlodipine 5 mg tablet 5 mg PO DAILY Qty: 90 RF: 3 amoxicillin-pot clavulanate [Augmentin] 500-125 mg tablet 1 tab PO BID RF: 0 metoprolol succinate 100 mg tablet extended release 24 hr 100 mg PO DAILY Qty: 90 RF: 3 isosorbide mononitrate 60 mg tablet extended release 24 hr 60 mg PO DAILY Qty: 90 RF: 3 losartan 25 mg tablet 25 mg PO DAILY Qty: 90 RF: 3 Primary Care Provider: Joseph Ricks Referrals: Joseph Ricks MD [Primary Care Provider] - Disposition Disposition: Acute Care Hospital [facility]
--- NOTE | 2020-12-26 19:11 | PCM.HP.STD ---
HPI - General General Date of Admission: 12/26/20 HPI Narrative YOSEPH PERSAUD, is a 50 M with a significant history of CAD status post stents; ischemic cardiomyopathy; hypertension; diabetes mellitus with nephropathy and neuropathy; right foot osteomyelitis who presents to the emergency department with 1 week history of progressively worsening left foot swelling. Patient thinks that he might of stepped on something developing the swelling. He was medicating himself at home by putting his foot in Epson salts. Also he used triple topical ointment therapy at home. He denies any nausea vomiting or chills. COVID-19 vaccination status: Patient has not been vaccinated. Of note patient's was admitted at a hospital in March 2020 for COVID-19 pneumonia. [facility] Medical History Atherosclerotic heart disease of [place] coronary artery without angina pectoris Chronic diastolic (congestive) heart failure Diabetes mellitus, type II Essential (primary) hypertension History of non-ST elevation myocardial infarction (NSTEMI) (03/15/20) History of stress test Hyperlipidemia Ischemic cardiomyopathy (06/2013) Obesity Pneumonia due to COVID-19 virus (03/14/20) Venous insufficiency Home Medications Mag-Ox 400 1 tab PO DAILY 09/28/14 [History Last Taken 12/20/18] aspirin 81 mg PO DAILY@0800 09/28/14 [History Last Taken 12/20/18] nitroglycerin 0.4 mg sublingual tablet 0.4 mg SUBLINGUAL Q5-15M PRN 04/20/17 [History Last Taken Unknown] atorvastatin 80 mg PO QHS 12/20/18 [History Last Taken 12/19/18] clopidogrel 75 mg PO DAILY #90 tab 12/25/18 [Rx Last Taken Unknown] glimepiride 2 mg tablet 2 mg PO QAM #90 tab 03/11/19 [Rx Last Taken Unknown] hydralazine 25 mg tablet 25 mg PO .COMPLEX #90 tab 09/08/19 [Rx Last Taken Unknown] hydralazine 50 mg tablet 50 mg PO .COMPLEX #90 tab 09/08/19 [Rx Last Taken Unknown] furosemide 40 mg tablet 40 mg PO .COMPLEX #240 tab 11/18/19 [Rx Last Taken Unknown] amlodipine 5 mg tablet 5 mg PO DAILY #90 tab 02/16/20 [Rx Last Taken Unknown] Trulicity 0.75 mg SUBCUT TH 08/21/20 [History Last Taken Unknown] insulin glargine 15 unit SC DAILY #0 ml 08/26/20 [Rx Last Taken Unknown] amoxicillin 500 mg-potassium clavulanate 125 mg tablet 1 tab PO BID 09/03/20 [History Last Taken Unknown] isosorbide mononitrate 60 mg tablet,extended release 24 hr 60 mg PO DAILY #90 tab 10/25/20 [Rx Last Taken Unknown] losartan 25 mg tablet 25 mg PO DAILY #90 tab 10/25/20 [Rx Last Taken Unknown] metoprolol succinate 100 mg tablet,extended release 24 hr 100 mg PO DAILY #90 tab 10/25/20 [Rx Last Taken Unknown] Allergy/AdvReac Type Severity Reaction Status Date / Time lisinopril AdvReac Intermediate Cough Verified 12/26/20 17:34 losartan AdvReac Intermediate cough Verified 12/26/20 17:34 Family History Father , Age 57 [address] [place] Myocardial infarction CAD (coronary artery disease) Sudden cardiac Mother Sick sinus syndrome Sister Diabetes Surgical History H/O cardiac catheterization History of coronary artery stent placement (01/02/19) Social History Smoking Status: Never smoker ROS ROS Narrative Constitutional: Denies fever, chills, fatigue, anorexia and change in weight Eyes: Denies blurry vision, change in eye color, change in vision, discharge from eye(s), double vision, erythema, eye pain, loss of vision or other HEENT: Denies abnormal hearing, dysphagia, ear pain, epistaxis, headache(s), hearing loss, nasal congestion, nasal discharge, post nasal drip, sinus pressure, sore throat or other Cardiovascular: Denies chest pain or palpitations. Denies dyspnea on exertion, orthopnea and paroxysmal nocturnal dyspnea Respiratory/Chest: Denies cough, excessive phlegm production, shortness of breath with exertion and wheezing Gastrointestinal: Denies abdominal pain, coffee ground emesis, constipation, diarrhea, dyspepsia, hematemesis, hematochezia, loose stools, melena, nausea, vomiting or other Genitourinary: Denies burning urination, difficulty urinating, dysuria, hematuria, nocturia, urinary frequency, urinary hesitancy, urinary incontinence, urinary urgency or other Musculoskeletal: Reports swelling in left foot. Denies arthralgias, back pain, myalgias, neck pain or other Neurologic: Denies abnormal gait, abnormal speech, confusion, disequilibrium, dizziness, focal weakness, headache(s), numbness, paresthesias, seizure-like activity, seizures, syncope, tingling, tremor(s) or other Psychiatric: Denies anxiety, depression, homicidal ideation, suicidal ideation or other Endocrinology: Denies change in body appearance, cold intolerance, excessive sweating, heat intolerance, polydipsia, polyuria or other Hematologic/Lymphatic: Denies anemia, easy bleeding, easy bruising, lymphadenopathy or other Integumentary: Denies rashes Allergic/Immunologic: Denies rhinitis, hives, eczema, asthma or other Vital Signs Vital Signs Vital Signs: 12/26/20 17:27 12/26/20 18:41 12/26/20 18:44 Temperature 97.8 F 97.7 F L 97.7 F L Temperature Source Temporal Temporal Temporal Pulse Rate 76 77 Respiratory Rate 16 18 18 Blood Pressure 128/68 H 158/90 H 158/90 H Blood Pressure Mean 88 112 112 Pulse Ox 98 158 Oxygen Delivery Method Room Air Room Air Weight Weight: 125.101 kg Body Mass Index (BMI) 38.5 Physical Exam Narrative Physical exam: General: Well-nourished, well-developed. Head: Normocephalic, atraumatic, no tenderness Eyes: PERRLA, EOMI ENT, no trauma, moist mucous membranes, no rhinorrhea Neck: Nontender, full range of motion, no spinal tenderness, deformities, step-off CVS: Regular rate and rhythm. S1-S2 present. No murmur, gallop or rub. Respiratory : Mild rhonchi, chest wall nontender, no wheezing Abdomen: Soft, nontender, nondistended, normal bowel sounds, no masses : Deferred Back: Nontender, no CVA tenderness, no midline spinal tenderness, deformities, step-offs Extremities: Right foot with amputated big toe. Left foot swelling with erythema. Ulceration of lateral left foot. Distal left leg swelling. Skin: Normal color, no trauma, abrasions Neuro: Alert, oriented, cranial nerves II through XII grossly intact. Psychiatry: Normal mood. Normal affect. Not depressed. Not anxious. Results Lab / Micro Data Result Diagrams: 12/26/20 17:45 12/26/20 17:45 Labs: Laboratory Results - last 24 hr 12/26/20 17:45: WBC 13.1 H, RBC 3.49 L, Hgb 9.1 L, Hct 29.6 L, MCV 84.8, MCH 26.1 L, MCHC 30.7 L, RDW Std Deviation 43.0, RDW Coeff of Rajendra 13.8, Plt Count 447, MPV 10.6, Immature Gran % (Auto) 0.600, Neut % (Auto) 83.4 H, Lymph % (Auto) 8.6 L, [place] % (Auto) 6.3, Eos % (Auto) 0.7, Baso % (Auto) 0.4, Absolute Neuts (auto) 10.9 H, Absolute Lymphs (auto) 1.13, Nucleated RBC % 0 12/26/20 17:45: Sodium 132 L, Potassium 4.8, Chloride 100, Carbon Dioxide 28.0, Anion Gap 4 L, BUN 74 H, Creatinine 2.84 H, Estim Creat Clear Calc 32.41, Est GFR (MDRD) Af Amer 30 L, Est GFR (MDRD) Non-Af 25 L, BUN/Creatinine Ratio 26.1 H, Glucose 353 H, Calcium 9.5 12/26/20 17:45: Lactic Acid 1.2 Radiology Impression Foot X-Ray 12/26/20 17:47 IMPRESSION: Soft tissue swelling with no osseous abnormalities. at 1823 Reported and signed by: Enrique Johnson MD Electronically Signed: Enrique Johnson MD at 18:21 EDT Tel , Service support , Assessment & Plan Assessment/Plan (1) Diabetic infection of left foot: (2) Acute hyperglycemia: (3) Chronic ulcer of right foot with fat layer exposed: PLAN: Diabetic infection of left foot Actual x-ray of left foot image was independently interpreted and agree with radiologist interpretation above. Review of labs showed elevated white count of d 13.1; with neutrophilic predominance and with lymphopenia. Trend CBC. Received Zosyn at emergency department and continued. Reportedly patient has a tetanus vaccination in the past year. Emergency department doctor reported discussed the case with percussion instructor. Inpatient consult podiatry. Check ESR and CRP. We will keep n.p.o. for possible surgical intervention. We will get a rapid Covid antigen screen as patient is a candidate for possible surgical intervention. No symptoms of Covid at this time. Of note patient had Covid infection Diabetes mellitus with nephropathy and neuropathy Patient with acute hyperglycemia on presentation Home basal insulin continued. Accu-Chek QA CHS with correction scale insulin ordered. Hyponatremia Sodium of 132 on presentation, mild. Trend BMP. CAD status post stents Continue aspirin and Plavix. Hypertension Blood pressure is not within goal Continue home blood pressure medications. As needed hydralazine ordered. Trend blood pressure and adjust blood pressure medications. Anemia Chronic Trend CBC. CKD stage IIIb Stable CKD like secondary to diabetic nephropathy and hypertensive nephrosclerosis. Trend BMP. DVT prophylaxis: SCD ordered. Charges/Coding Visit Charges Inpatient E&M: 39431 Init Hosp L3
[2020-12-26 20:45] LABS: Bedside Glucose 291 mg/dL (70-110)
--- NOTE | 2020-12-26 20:47 | CON.PCM_ITS ---
Assessment & Plan Assessment/Plan (1) Non-pressure 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 of bone: (2) Diabetic infection of left foot: (3) Diabetes mellitus with diabetic polyneuropathy: (4) Type 2 diabetes mellitus with foot ulcer: (5) Cellulitis of left lower limb: (6) Acute osteomyelitis of left foot: PLAN: Evaluation performed. Reviewed diagnostic data. Reviewed left foot xrays - there is no gas or clear evidence of osteomyelitis on xrays. There is noted to be significant necrotic ulcer to the left heel which is right up to the bone and there is significant maloder. This is infected. This was discussed with patient. We discussed options of antibiotics as well as also debridement/removal of infected and unhealthy tissue. Given the necrosis/gangrene present to the site we elected to proceed with debridement and also calcaneus bone biopsy as suspect he likely has developed osteomyelitis as well given the close proximity/involvement of bone. This was discussed with him in detail. We will plan to proceed with this tomorrow as soon as we can. I discussed with Dr. Feliciano. Patient will be kept NPO after midnight. A culture of the necrotic ulcer was obtained and sent to microbiology. He has been started on IV antibiotics - Zosyn at this time. A dressing was applied to the left heel consisting of betadine soln and gauze, kerlix and doc. Keep clean, dry and intact. Medical management per the medicine team. Podiatry will continue to follow. Thank you for consult. Also with patient's permission I did discuss the findings and plan with patient's son Juan A. HPI Consult Data Date of Consult: 12/26/20 HPI Narrative HPI Narrative: YOSEPH PERSAUD, is a 50 M who presents to the hospital with necrotic ulceration left heel. He relates I should have come in sooner. Patient relates he developed a wound about 2 weeks ago, he relates he has been doctoring it myself. He relates he has been soaking it in epsom salts and water, he relates once he started doing that it really brought the smell out. He relates he has no pain, he relates he has been walking on it. He relates the only reason he came in today was because his made him come in. His WBC is slightly elevated. He relates right foot has been doing well but he relates he has stopped going to the wound center. [facility] Medical History Atherosclerotic heart disease of [place] coronary artery without angina pectoris Chronic diastolic (congestive) heart failure Diabetes mellitus, type II Essential (primary) hypertension History of non-ST elevation myocardial infarction (NSTEMI) (03/15/20) History of stress test Hyperlipidemia Ischemic cardiomyopathy (06/2013) Obesity Pneumonia due to COVID-19 virus (03/14/20) Venous insufficiency Home Medications Mag-Ox 400 1 tab PO DAILY 09/28/14 [History Last Taken 12/20/18] aspirin 81 mg PO DAILY@0800 09/28/14 [History Last Taken 12/20/18] nitroglycerin 0.4 mg sublingual tablet 0.4 mg SUBLINGUAL Q5-15M PRN 04/20/17 [History Last Taken Unknown] atorvastatin 80 mg PO QHS 12/20/18 [History Last Taken 12/19/18] clopidogrel 75 mg PO DAILY #90 tab 12/25/18 [Rx Last Taken Unknown] glimepiride 2 mg tablet 2 mg PO QAM #90 tab 03/11/19 [Rx Last Taken Unknown] hydralazine 25 mg tablet 25 mg PO .COMPLEX #90 tab 09/08/19 [Rx Last Taken Unknown] hydralazine 50 mg tablet 50 mg PO .COMPLEX #90 tab 09/08/19 [Rx Last Taken Unknown] furosemide 40 mg tablet 40 mg PO .COMPLEX #240 tab 11/18/19 [Rx Last Taken Unknown] amlodipine 5 mg tablet 5 mg PO DAILY #90 tab 02/16/20 [Rx Last Taken Unknown] Trulicity 0.75 mg SUBCUT TH 08/21/20 [History Last Taken Unknown] insulin glargine 15 unit SC DAILY #0 ml 08/26/20 [Rx Last Taken Unknown] amoxicillin 500 mg-potassium clavulanate 125 mg tablet 1 tab PO BID 09/03/20 [History Last Taken Unknown] isosorbide mononitrate 60 mg tablet,extended release 24 hr 60 mg PO DAILY #90 tab 10/25/20 [Rx Last Taken Unknown] losartan 25 mg tablet 25 mg PO DAILY #90 tab 10/25/20 [Rx Last Taken Unknown] metoprolol succinate 100 mg tablet,extended release 24 hr 100 mg PO DAILY #90 tab 10/25/20 [Rx Last Taken Unknown] Allergy/AdvReac Type Severity Reaction Status Date / Time lisinopril AdvReac Intermediate Cough Verified 12/26/20 17:34 losartan AdvReac Intermediate cough Verified 12/26/20 17:34 Family History Father , Age 57 from [place] Myocardial infarction CAD (coronary artery disease) Sudden cardiac Mother Sick sinus syndrome Sister Diabetes Surgical History H/O cardiac catheterization History of coronary artery stent placement (01/02/19) Social History Smoking Status: Never smoker Physical Exam Const alert, oriented x3 and no apparent distress Extremity Extremity Narrative: There is noted to be significant necrotic ulceration with significant maloder and bogginess to the plantar and lateral heel which involves the skin, subcutaneous tissue and right to bone, there is surrounding cellulitis around the wound, and also edema to the site consistent with infection, there is some purulent drainage. The right foot s/p 1st toe amputation with dry eschar covering site with no evidence of infection. Sensation is significant diminished/absent to the foot bilateral c/w chronic peripheral neuropathy. CFT < 2 seconds to all toes bilateral with no evidence of acute ischemia bilateral. There is POP or pain on ROM to the foot or ankle bilateral. No calf pain bilateral. Lab / Micro Data Result Diagrams: 12/26/20 17:45 12/26/20 17:45 Labs: Laboratory Results - last 24 hr 12/26/20 17:45: WBC 13.1 H, RBC 3.49 L, Hgb 9.1 L, Hct 29.6 L, MCV 84.8, MCH 26.1 L, MCHC 30.7 L, RDW Std Deviation 43.0, RDW Coeff of Rajendra 13.8, Plt Count 447, MPV 10.6, Immature Gran % (Auto) 0.600, Neut % (Auto) 83.4 H, Lymph % (Auto) 8.6 L, [place] % (Auto) 6.3, Eos % (Auto) 0.7, Baso % (Auto) 0.4, Absolute Neuts (auto) 10.9 H, Absolute Lymphs (auto) 1.13, Nucleated RBC % 0 12/26/20 17:45: Sodium 132 L, Potassium 4.8, Chloride 100, Carbon Dioxide 28.0, Anion Gap 4 L, BUN 74 H, Creatinine 2.84 H, Estim Creat Clear Calc 32.41, Est GFR (MDRD) Af Amer 30 L, Est GFR (MDRD) Non-Af 25 L, BUN/Creatinine Ratio 26.1 H , Glucose 353 H, Calcium 9.5 12/26/20 17:45: Lactic Acid 1.2 12/26/20 20:36: POC Glucose 291 H Radiology Impression Foot X-Ray 12/26/20 17:47 IMPRESSION: Soft tissue swelling with no osseous abnormalities. at 1823 Reported and signed by: Enrique Johnson MD Electronically Signed: Enrique Johnson MD at 18:21 EDT Tel , Service support ,
[2020-12-26] MEDS: Glucerna Shake 120 ML LIQUID PO (21:29)
[2020-12-26] MEDS: Insulin Lispro 100 UNIT/ML INSULN.PEN SC (21:31)
[2020-12-26 22:04] LABS: Erythrocyte Sedimentation Rate 34 mm/hr (0-20)
[2020-12-26 22:06] LABS: Probe Check PASS; Staph aureus DNA By PCR POSITIVE (Negative)
[2020-12-26 22:07] LABS: M R Staph aureus DNA By PCR POSITIVE (Negative)
[2020-12-26 22:14] LABS: CPK Total, Creatine Kinase 149 U/L (39-308)
--- NOTE | 2020-12-26 22:49 | PCM.RX.CS ---
Consult Pharmacy has been consulted to manage selected antiobiotic: Vancomycin Type of Consult: New start Suspected Infection: Skin/Soft tissue Prior Doses of Antibiotics Received/Current Regimen: Medications Vancomycin HCl 2,000 mg/ (Sodium Chloride) 540 mls @ 250 mls/hr IV X1 ONE Stop: 12/27/20 00:39 Last Admin: 12/26/20 22:36 Dose: 250 mls/hr Vancomycin HCl 1,500 mg/ (Sodium Chloride) 530 mls @ 250 mls/hr IV Q24H PAMELA Labs: Sodium 132 mmol/L (136-145) L 12/26/20 17:45 Potassium 4.8 mmol/L (3.5-5.1) 12/26/20 17:45 Chloride 100 mmol/L (98-107) 12/26/20 17:45 Carbon Dioxide 28.0 mmol/L (21.0-32.0) 12/26/20 17:45 Anion Gap 4 (5-15) L 12/26/20 17:45 BUN 74 mg/dL (7-18) H 12/26/20 17:45 Creatinine 2.84 mg/dL (0.70-1.30) H 12/26/20 17:45 Est GFR (MDRD) Af Amer 30 mL/min (>60) L 12/26/20 17:45 Est GFR (MDRD) Non-Af 25 mL/min (>60) L 12/26/20 17:45 BUN/Creatinine Ratio 26.1 RATIO (10-20) H 12/26/20 17:45 Glucose 353 mg/dL (74-106) H 12/26/20 17:45 Microbiology: Microbiology 12/26/20 21:05 Nasal Secretion SARS-CoV-2 Antigen (Rapid) - Final Weight used for dosin.2 kg Estimated Creatinine Clearance: 32.4 Goal Trough: 15-20 mcg/mL Pharmacy Plan for Drug Dosing: Pharmacy Service will continue to monitor and adjust dosing as required. Follow-Up Labs: Trough Vancomycin Labs to be done on [date and time ordered]: 12/28/20 @2200
--- NOTE | 2020-12-26 22:51 | NURSING ---
1900 pandemic documentation
[2020-12-27] VITALS (12 sets, daily range): BP systolic 125–176; BP diastolic 64–85; PULSE 65–81; RESP 16–18; TEMP 36.1–37.4; O2SAT 92–97; BMI 38.5
[2020-12-27] MEDS: Insulin Lispro 100 UNIT/ML INSULN.PEN SC ×5 (02:01→21:00)
[2020-12-27 02:11] LABS: Bedside Glucose 279 mg/dL (70-110)
[2020-12-27 05:45] LABS: Bedside Glucose 274 mg/dL (70-110)
--- NOTE | 2020-12-27 06:00 | EKG12_ITS ---
Test Reason : PRE-OP Blood Pressure : / mmHG Vent. Rate : 077 BPM Atrial Rate : 077 BPM P-R Int : 174 ms QRS Dur : 102 ms QT Int : 388 ms P-R-T Axes : 045 -01 063 degrees QTc Int : 439 ms Normal sinus rhythm Inferior infarct (cited on or before 22-AUG-2020) Anterior infarct , age undetermined Confirmed by DANNY NUNEZ, CHAPARRO ([id number]), movie editor REX PONCE ([id number]) on 12/28/2020 2:15:18 PM Referred By: DR REED Confirmed By:CHAPARRO DELGADO MD
[2020-12-27 06:21] LABS: Absolute Lymphocyte Count 1.35 X10^3/uL (0.83-4.51); Absolute Neutrophil Count 8.5 X10^3/uL (2.0-7.7); Basophil# 0.05 X10^3/uL; Basophil% 0.5 % (0-1); Eosinophil# 0.14 X10^3/uL; Eosinophils% 1.3 % (0-5); Hemoglobin 8.3 g/dL (13.0-16.5); Lymphocyte # 1.35 X10^3/ul (0.83-4.51); Lymphocyte % 12.3 % (19-41); Mean Corp Hgb Conc 30.7 g/dL (32-36); Mean Corpuscular Hgb 26.1 pg (27.0-32.0); Mean Corpuscular Volume 84.9 fL (80-94); Mean Platelet Vol. 10.5 fl (6.2-12.0); Monocyte# 0.84 X10^3/uL; Monocyte% 7.7 % (0-10); NRBC Flagged by Analyzer 0 % (0-5); Neutrophil # 8.52 X10^3/uL (2.7-7.7); Neutrophil % 77.6 % (47-70); Platelet Count 355 K/mm3 (150-450); RBC Distribution Width CV 13.9 % (11.6-14.6); RBC Distribution Width SD 43.2 fl (35.1-43.9); Red Blood Count 3.18 M/mm3 (4.6-6.2)
[2020-12-27 06:49] LABS: Anion Gap 6 (5-15); BUN 66 mg/dL (7-18); BUN/Creat Ratio 25.5 RATIO (10-20); Calcium,Total 8.8 mg/dL (8.5-10.1); Chloride 101 mmol/L (98-107); Creatinine, Serum 2.59 mg/dL (0.70-1.30); EST Glomerular Filtration Rate 28 mL/min (>60); Est Glom Filt Rate - Afr Amer 34 mL/min (>60); Estimated Creatinine Clearance 35.53 ml/min; Glucose 316 mg/dL (74-106); Potassium 4.2 mmol/L (3.5-5.1); Sodium Level 134 mmol/L (136-145)
--- NOTE | 2020-12-27 08:00 | BON_PTH ---
PATIENT: YOSEPH PERSAUD Jr. LOC: MS3 U#:[id number] AGE/SX: 50/M ROOM: W[facility]313 RE12/26/[address]: Dr. Rickie Ugarte MD : 1970 BED: 1 DIS: 12/31/2020 SPEC #: [id number] RECD: 12/28/20 07:36 STATUS: TOMMY REQ #: [id number] AGGIE: 12/27/20 08:[address]: Jimy Rahman DEPT: SURGICAL PATHOLOGY RECD BY: Rg Marcos ENTERED: 12/28/20 10:33 SP TYPE: Bone OTHR DR: MD Dr. Per Lee MD Dr. Jeffrey Wunning, DPM MD Dr. 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 Left calcaneus bone, B ? Debrided left heel tissue MICROSCOPIC DIAGNOSIS A. Left calcaneus bone: Fragments of bone with reactive changes, negative for acute osteomyelitis. B. Debrided left heel tissue: Pieces of skin and soft tissue with extensive ulceration, necrosis, acute inflammation and abscess formation. SJ:nisha 12/31/2020 COMMENT Case has been reviewed in consultation with Dr. Buenrostro who concurs with the above diagnosis. IDC:AM MICROSCOPIC DESCRIPTION Slides are reviewed. GROSS DESCRIPTION A - Received in fixative is one container labeled with the patient's name and designated left calcaneus bone. The specimen consists of two pieces of bone measuring in aggregate 1 x 0.5 x 0.1 cm. The entire specimen is submitted in one cassette after decalcification. B - Received in fixative is one container labeled with the patient's name and designated debrided heel tissue. The specimen consists of multiple pieces of skin and soft tissue that in aggregate measure 8 x 7 x 3 cm. A focal area of ulceration is noted. Home Performance Consultant sections are submitted in two cassettes. / KRISTINA:nisha 12/28/20 TC:2 CPT: 88057 x2, 34463
[2020-12-27 08:12] LABS: Hemoglobin A1c 10.3 % (3.8-5.6)
[2020-12-27 10:00] LABS: Bedside Glucose 296 mg/dL (70-110)
--- NOTE | 2020-12-27 10:24 | CASEMGMT ---
RADHA KISER Assessment: Face to Face with pt for initial transition planning/care coordination assessment. RADHA KISER introduced self and role at [facility], pt voices understanding and consents to assessment. Pt son present at bedside. Pt is A/O x4 and answers all questions appropriately at this time. Care providers, pharmacy, and demographics verified/updated. Admitting Dx: Left foot infection PCP:Rambo Specialists: Josiah, pod; [facility] for cardiology, [place], [place] Preferred Pharmacy: [facility] Insurance: [employer] Prescription Benefit: yes LW/HPOA: Pt denies having any LW/DPOA or any need for information regarding AD. LNOK: Sangeeta Sanchez, ; Bety Sanchez, son Living Arrangements: Pt lives in a single story house with two steps to enter with and son. Pt reports being I in ADL's and denies concerns at home. Transportation: Pt drives self and denies concerns with transportation. DME/HHC/SNF: Pt has a walker but does not currently use. Pt has had [facility] in the past for IV atb and a wound vac. Pt used [facility]. Pt denies having been in any SNF. 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 Pt denies drinking any alcohol, smoking cigarettes, street drug use or illegal drug use. Pt states no concerns with going home at time of dc. He will have surgery today. He states if he has wound care or needs IV atb again, he prefers the same agency and infusion company he used last time. Pt states no further concerns/needs. CM to follow. Advised pt to ask CM if any further question/concerns/needs arise, voices understanding. Pt Goal: Home Plan: Home pending surgery and need for IV atb or wound care.
--- NOTE | 2020-12-27 12:03 | WOUNDNOTE ---
wound photo: left heel
[2020-12-27] MEDS: 0.9% Normal Saline 1,000 ML 100 ML IV (12:43)
--- NOTE | 2020-12-27 12:47 | PCS.PANDOC ---
PANDEMIC DOCUMENTATION INITIATED: Date: 11/22/2020 Time: 190
[2020-12-27] MEDS: Bupivacaine Mpf 0.5% 30 ML VIAL (13:51)
--- NOTE | 2020-12-27 14:22 | OP.PCM_ITS ---
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 Debrided ulcer left heel sent to microbiology and pathology 2. Bone biopsy of left calcaneus sent to microbiology and pathology Estimated Blood Loss (mL): 10mL Description of Procedure: Description of Procedure: Indications: This is a 50 year old gentleman who is in overall very poor health, he has many medical problems including obesity, uncontrolled diabetes, peripheral neuropathy, hypertension, hyperlipidemia, heart disease, and also chronic kidney disease, who presented with severely necrotic left heel ulceration down to deep soft tissue and bone. WBC was noted to be elevated. Patient admitted he should have come in sooner, he relates he has been letting it go. Patient has been started on IV antibiotic. There was significant necrosis and severe maloder from the site. Due to the extent of the infection he elected to proceeded with debridement of all nonviable, infected and necrotic soft tissue and calcaneal bone biopsy from the left foot. 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 Goal of today's procedure is try to help control and rid source of infection. Reviewed risks of worsening infection, nonhealing, wounds, blood clots, need for further surgery, loss of life, and advised he is at very high risks of further proximal limb amputation. This was discussed with patient in detail. The consent form was reviewed with him, and he freely signed it. No guarantees were given nor implied. No warranties were given. Operative Procedure: The patient was brought back to the operating room, and was placed on the operating room table in the supine position. He was secured to the operating room table with a safety belt around his waist. He received MAC anesthesia per the anesthesia team. The skin was cleansed around the heel 70% Isopropyl alcohol and a local nerve block was completed using 20mL of Bupivacaine plain. A well padded left ankle pneumatic tourniquet was applied around the left ankle. The left foot was scrubbed, prepped, and draped in the usual aseptic fashion. Further attention was directed to the left foot, there was very large and deep necrotic (black and green) foul smelling gangrenous ulceration to the plantar heel centrally and laterally, the medial aspect was intact and appeared to be viable. This involved the skin, subcutaneous tissue and was right up against the plantar posterior central calcaneus bone. There was cellulitis, bogginess and purulence to the site. The left foot was elevated for 3 minutes and also exsanguinated using an Esmarch bandage and the left ankle tourniquet was inflated to 250mmHg. At this time all nonviable, infected and necrotic soft tissue down through the fascia layer was debrided from the heel using a 15 blade in excisional fashion. The area debrided measured 8cm x 6cm and 0.8cm in depth. Again this was debrided in excisional fashion using a 15 blade down to bone. The most outer layer of bone of the plantar calcaneus was noted to be soft and necrotic centrally which was gently debrided using a bone cutting rongeur. A sample of the bone was obtained using a Askem bone biopsy kit was obtained and sent to microbiology and pathology for further evaluation. The debrided soft tissue was sent for culture and to pathology. The site was flushed out with copious amounts of normal saline solution. The remaining tissues to the foot were noted to be viable at this time. A dressing was applied which consisted of betadine soaked gauze, fibrillar and gel foam hemostatic dressing, 4x4 gauze, kerlix, abd pads, kerlix and doc bandages. The pneumatic tourniquet was deflated at 27 minutes, there was return of normal flow to the distal foot and toes, CFT < 2 seconds to all toes with normal temperature. The patient tolerated the above procedure well, and anesthesia well with no complication. The patient was transported back to the his room on [facility] will be followed as an inpatient. Also of note due to left lower extremity edema which was present a venous doppler was ordered for further evaluation. Also post operative xrays of the left calcaneus were ordered and reviewed - no fractures, no significant bone loss noted. Grafts/Implants Used: None Complications None
--- NOTE | 2020-12-27 14:27 | ECHOCS_ITS ---
Reason For Study: CAD/ASHD Procedure This was a 2D Doppler, Color Flow transthoracic echocardiogram. The study was technically difficult. Due to body habitus. Contrast injection was performed. Exam performed portable in patient room. Left Ventricle Normal LV size. Mild concentric left ventricular hypertrophy. Left ventricular systolic function is normal. The estimated ejection fraction is 55 %. Stage 1 diastolic dysfunction. Mid-Anterior : Hypokinetic. Hollis : Hypokinetic. Right Ventricle Normal RV size. Normal systolic function. Pulmonic Valve Normal pulmonic valve. Great Vessels Normal aortic root. The pulmonary artery is normal size. Normal inferior vena cava. Pericardium/Pleural Small pericardial effusion. Medication Diluted definity 3.0ml given slow IV push to enhance endocardial definition. MMode/2D Measurements & Calculations LVIDd: 4.4 cm IVSd: 1.2 cm Ao root diam: 3.4 cm LVIDs: 2.9 cm LVPWd: 1.2 cm FS: 34.7 % LAV(MOD-sp4): 49.3 ml LA dimension(2D): 3.3 cm LA A4 area: 18.5 cm2 RA A4 area: 12.3 cm2 Time Measurements MV dec time: 0.26 sec Doppler Measurements & Calculations MV E max finesse: 63.6 cm/sec Lat Peak E' Finesse: 6.5 cm/sec Med Peak E' Finesse: 6.5 cm/sec MV A max finesse: 74.0 cm/sec E/E' lat: 9.9 E/E' med: 9.9 MV E/A: 0.86 Ao V2 max: 110.5 cm/sec LV V1 max: 79.8 cm/sec PA V2 max: 110.5 cm/sec Ao max P.9 mmHg LV V1 max P.5 mmHg ECHO/Echo Complete W/ Contrast Interpretation Summary Normal LV size. Mild concentric left ventricular hypertrophy. Left ventricular systolic function is normal. The estimated ejection fraction is 55 %. Stage 1 diastolic dysfunction. Contrast injection was performed. Ordering Physician: Georgia Morrissey Referring Physician: Joseph Ricks Performed By: Mariam Schwartz RDCS, RVT
--- NOTE | 2020-12-27 14:33 | VDLE_ITS ---
Reason For Study: Swelling RIGHT LEFT CFV is compressible, spontaneous, phasic, GSV is normal. competent and demonstrates normal CFV is compressible, spontaneous, phasic, augmentation. competent, and demonstrates normal Procedure augmentation. This is a venous duplex using B-mode, color FV is compressible, spontaneous, phasic, flow and spectral Doppler. competent and demonstrates normal Exam performed portable in patient room. augmentation. A preliminary report was called and/or faxed POP V is compressible, spontaneous, phasic, to Sariah GARCIA. competent and demonstrates normal augmentation. T/P Trunk is compressible. PTV is compressible. LT PerV is compressible. Lt GastrocV is dilated and non compressible consistent with acute DVT. VL/Venous Duplex US, Unilateral Interpretation Summary Acute deep vein thrombosis is noted in the left gastrocnemius vein. The remaind er of the left lower extremity deep venous system is patent and compressible. Valvular competence ap pears intact within the proximal deep venous system on the left . The left great saphenous vein jade ears patent and compressible segmentally. Ordering Physician: Jimy Rahman Referring Physician: Joseph Ricks Performed By: Jennifer Cross, KAMINI, RVT
--- NOTE | 2020-12-27 14:40 | PN.HOSP_ITS ---
Subjective Subjective Patient states that he is feeling okay right now. He is anxious to go get his surgery done so he can have something to eat. He states he does have some pain but does have some neuropathy so it is not as intense. He states he injured his foot and was trying to take care of at home by himself and unfortunately ended up in this position. He denies any shortness of breath chest pain nausea or vomiting. Objective Data Objective Data Vital Signs: Vital Signs Temp Pulse Resp BP Pulse Ox 98.6 F 81 18 164/85 H 95 12/27/20 11:58 12/27/20 11:58 12/27/20 11:58 12/27/20 11:58 12/27/20 11:58 Oxygen Delivery Method Room Air Weight: 125.2 kg Body Mass Index (BMI) 38.5 Intake & Output: Intake and Output for Last 24 Hours 12/25/20 12/26/20 12/27/20 23:59 23:59 23:59 Intake Total 100 / 440 930 / 930 Output Total 250 / 250 Balance 100 / 440 680 / 680 Lab / Micro Data Result Diagrams: 12/27/20 05:50 12/27/20 05:50 Labs: Laboratory Results - last 24 hr 12/26/20 17:45: WBC 13.1 H, RBC 3.49 L, Hgb 9.1 L, Hct 29.6 L, MCV 84.8, MCH 26.1 L, MCHC 30.7 L, RDW Std Deviation 43.0, RDW Coeff of Rajendra 13.8, Plt Count 447, MPV 10.6, Immature Gran % (Auto) 0.600, Neut % (Auto) 83.4 H, Lymph % (Auto) 8.6 L, Putnam % (Auto) 6.3, Eos % (Auto) 0.7, Baso % (Auto) 0.4, Absolute Neuts (auto) 10.9 H, Absolute Lymphs (auto) 1.13, Nucleated RBC % 0 12/26/20 17:45: Sodium 132 L, Potassium 4.8, Chloride 100, Carbon Dioxide 28.0, Anion Gap 4 L, BUN 74 H, Creatinine 2.84 H, Estim Creat Clear Calc 32.41, Est GFR (MDRD) Af Amer 30 L, Est GFR (MDRD) Non-Af 25 L, BUN/Creatinine Ratio 26.1 H , Glucose 353 H, Calcium 9.5 12/26/20 17:45: Lactic Acid 1.2 12/26/20 17:45: ESR 34 H 12/26/20 17:45: Total Creatine Kinase 149 12/26/20 20:30: S.aureus Protein A PCR POSITIVE H, MRSA (PCR) POSITIVE H 12/26/20 20:36: POC Glucose 291 H 12/27/20 01:57: POC Glucose 279 H 12/27/20 05:39: POC Glucose 274 H 12/27/20 05:50: WBC 11.0, RBC 3.18 L, Hgb 8.3 L, Hct 27.0 L, MCV 84.9, MCH 26.1 L, MCHC 30.7 L, RDW Std Deviation 43.2, RDW Coeff of Rajendra 13.9, Plt Count 355, MPV 10.5, Immature Gran % (Auto) 0.600, Neut % (Auto) 77.6 H, Lymph % (Auto) 12.3 L, Putnam % (Auto) 7.7, Eos % (Auto) 1.3, Baso % (Auto) 0.5, Absolute Neuts (auto) 8.5 H, Absolute Lymphs (auto) 1.35, Nucleated RBC % 0 12/27/20 05:50: Sodium 134 L, Potassium 4.2, Chloride 101, Carbon Dioxide 27.0, Anion Gap 6, BUN 66 H, Creatinine 2.59 H, Estim Creat Clear Calc 35.53, Est GFR (MDRD) Af Amer 34 L, Est GFR (MDRD) Non-Af 28 L, BUN/Creatinine Ratio 25.5 H, Glucose 316 H, Calcium 8.8 12/27/20 05:50: Hemoglobin A1c 10.3 H 12/27/20 09:49: POC Glucose 296 H Micro: Microbiology 12/26/20 21:05 Nasal Secretion SARS-CoV-2 Antigen (Rapid) - Final 12/26/20 18:56 Wound - Left Foot Gram Stain - Final 12/26/20 18:56 Wound - Left Foot Wound Culture - Preliminary Beta hemolytic organism Gram positive organism Radiography Diagnostic Testing: Radiology Impression Foot X-Ray 12/26/20 17:47 IMPRESSION: Soft tissue swelling with no osseous abnormalities. at 1823 Reported and signed by: Enrique Johnson MD Electronically Signed: Enrique Johnson MD at 18:21 EDT Tel , Service support , Physical Exam Const alert, oriented x3 and no apparent distress Constitutional Narrative: Obese white male sitting up in bed, nursing at bedside, appears nontoxic Exam Limitations: no limitations HEENT head/scalp atraumatic, moist oral mucous membranes and oropharynx normal HEENT Narrative: Mallampati 3, no thrush Head and Scalp: normocephalic Eyes PERRL and EOMs intact bilaterally Neck no lymphadenopathy and supple Neck Narrative: Trachea midline, Mallampati 3, no thrush Resp normal respiratory effort, no retractions and no use of accessory muscles Resp Narrative: Diffusely diminished but no adventitious sounds Auscultation: Negative for crackles, rales, rhonchi or wheezes Cardio regular rate, regular rhythm, S1 normal heart sound, S2 normal heart sound, no murmurs, no rub, no gallops, no clicks and no JVD GI normal to inspection, nondistended, normoactive bowel sounds, soft to palpation, non-tender and non-distended Extremity Extremity Narrative: Left distal lower extremity wrapped, trace pitting edema in the leg, right foot with amputation noted, cap refill and pulses are within normal limits, no clubbing or cyanosis Peripheral Pulses: Yes pulses 2+ throughout Skin skin turgor normal, no jaundice, no petechiae and no mottling Neuro oriented x3, CN's II-XII intact bilaterally, moves all extremities and no focal motor deficits Neuro Narrative: Bilateral lower extremity peripheral neuropathy Sensorium / Orientation: awake, alert, oriented to person and oriented to place Psych affect normal Assessment & Plan Assessment/Plan (1) Acute osteomyelitis of left foot: (2) Cellulitis of left lower limb: (3) Acute electrocardiogram changes: (4) Type 2 diabetes mellitus with foot ulcer: PLAN: Left lower extremity diabetic ulcer of the left heel and midfoot with necrosis of the bone -OR today with Wantluis -Continue IV antibiotics--> Zosyn and vancomycin -Await intraoperative cultures -Cultures of the ulcer from the ED show -Continue wound management per podiatry -If cultures positive for osteo consider consultation to infectious disease -Patient is MRSA PCR positive for serum and wound EKG changes -Preoperative EKG shows new T wave inversions when compared to previous EKGs in the inferior lateral leads -Patient does have known cardiac history with stents placed in 2019 -Check troponin -Check echocardiogram -Most recent echocardiogram from 2019 shows an EF of 60% with no regional wall motion abnormalities -Patient is a fairly significant diabetic so he could he could have asymptomatic disease -If echo so changes we will consult cardiology -Continue aspirin -Plavix is on hold for surgery -Restart when okay per podiatry -Continue statin -If remains elevated with regards to blood pressure consider starting beta- kane CKD stage IV -Appears that serum creatinine at baseline is 2.4-2.6 -Currently at baseline -Continue to monitor -Avoid nephrotoxins as able -Watch closely with vancomycin DM-2 controlled -Hemoglobin A1c was 10.3 today -Blood glucose levels have been uncontrolled since admission -Increase Lantus to 40 units at at bedtime -Continue SSI -Consider adding scheduled log -Hold home oral agents CAD/HPL/HTN -Continue home hold Lasix for now -We will stop fluids -Continue as needed antihypertensives -Restart home beta-kane -If blood pressure remains stable or elevated consider restarting other home antihypertensives tomorrow -Continue home statin DVT prophylaxis Heparin 3 times daily Charges/Coding Visit Charges Inpatient E&M: 68882 [facility] L3
--- NOTE | 2020-12-27 14:55 | RAD_ITS ---
STUDY: X-RAY - LEFT CALCANEUS REASON FOR EXAM: Male, 50 years old. post op TECHNIQUE: 2 view(s) of the calcaneus were obtained. COMPARISON: None. FINDINGS: Small amount of postoperative air and swelling seen around the heel of the ankle. Overlying bandage material also noted. No radiopaque foreign body is seen. Normal visualized calcaneus. Atherosclerotic calcifications noted. RAD/Calcaneus min 2 Views IMPRESSION: Postoperative changes Electronically Signed: Luke Hamilton MD at 16:06 EDT , Service support ,
[2020-12-27 15:38] LABS: Troponin-I HS 15 pg/mL (3.0-78.0)
[2020-12-27] MEDS: Metoprolol(XL)Succ 100 MG Tablet PO (15:42)
[2020-12-27 17:05] LABS: Bedside Glucose 238 mg/dL (70-110)
--- NOTE | 2020-12-27 17:16 | NURSING ---
DR SANTA NOTIFIED VIA TEXT OF +DVT LLE & DR HAYES CORTEXT WITH RESULTS
--- NOTE | 2020-12-27 19:24 | PCM.HOSP.N ---
Hospitalist Note Notified that the preliminary read on the bilateral lower extremity Dopplers was positive for a left lower extremity DVT in the left gastroc vein. Since this is a below the knee DVT per the preliminary read I will hold off on full anticoagulation. As long as the DVT is not at or above the knee I would continue with prophylactic dose anticoagulation via heparin 5000 units twice 3 times daily and perform serial ultrasounds at 3, 10, and 30 days post initial finding. If this does extend to or above the knee I would start full dose anticoagulation. Per discussion with podiatry they are okay with initiating full anticoagulation. Review full report when available.
[2020-12-27] MEDS: Heparin Injection (Vial) 5,000 UNIT/ML VIAL 5000 UNIT SC (21:05)
[2020-12-27] MEDS: Atorvastatin Calcium 80 MG Tablet PO (21:06)
[2020-12-27 21:21] LABS: Bedside Glucose 260 mg/dL (70-110)
[2020-12-28] VITALS (9 sets, daily range): BP systolic 145–175; BP diastolic 58–93; PULSE 69–75; RESP 16–20; TEMP 36.7–37.1; O2SAT 94–98
[2020-12-28] MEDS: Heparin Injection (Vial) 5,000 UNIT/ML VIAL 5000 UNIT SC ×3 (05:13→23:00)
[2020-12-28] MEDS: Insulin Lispro 100 UNIT/ML INSULN.PEN SC ×4 (06:29→23:32)
[2020-12-28 06:35] LABS: Bedside Glucose 155 mg/dL (70-110)
[2020-12-28 07:30] LABS: Absolute Lymphocyte Count 1.16 X10^3/uL (0.83-4.51); Basophil# 0.06 X10^3/uL; Basophil% 0.6 % (0-1); Eosinophil# 0.16 X10^3/uL; Eosinophils% 1.6 % (0-5); Hematocrit 28.3 % (40-54); Hemoglobin 8.9 g/dL (13.0-16.5); Lymphocyte # 1.16 X10^3/ul (0.83-4.51); Lymphocyte % 11.5 % (19-41); Mean Corp Hgb Conc 31.4 g/dL (32-36); Mean Corpuscular Hgb 26.9 pg (27.0-32.0); Mean Corpuscular Volume 85.5 fL (80-94); Mean Platelet Vol. 10.9 fl (6.2-12.0); Monocyte# 0.72 X10^3/uL; Monocyte% 7.1 % (0-10); NRBC Flagged by Analyzer 0 % (0-5); Neutrophil # 7.97 X10^3/uL (2.7-7.7); Neutrophil % 78.6 % (47-70); Platelet Count 372 K/mm3 (150-450); RBC Distribution Width CV 13.8 % (11.6-14.6); RBC Distribution Width SD 43.5 fl (35.1-43.9); Red Blood Count 3.31 M/mm3 (4.6-6.2); White Blood Count 10.1 K/mm3 (4.4-11.0)
--- NOTE | 2020-12-28 07:49 | PCM.PROGNOTE ---
Subjective Subjective Patient seen and examined resting comfortably. Patient denies any new pedal complaints. Patient denies any nausea, fever, chills, chest pain, shortness of breath, cough, streaking, purulence, vomiting. He denies any strikethrough last night. But he also said he cannot see his feet easily. Objective Data Objective Data Vital Signs: Vital Signs Temp Pulse Resp BP Pulse Ox 98.2 F 75 20 H 169/70 H 95 12/28/20 06:36 12/28/20 06:36 12/28/20 06:36 12/28/20 06:36 12/28/20 06:36 Oxygen Delivery Method Room Air Weight: 125.2 kg Body Mass Index (BMI) 38.5 Intake & Output: Intake and Output for Last 24 Hours 12/26/20 12/27/20 12/28/20 23:59 23:59 23:59 Intake Total 100 / 440 2420 / 2720 880 / 880 Output Total 1675 / 1675 400 / 400 Balance 100 / 440 745 / 1045 480 / 480 Lab / Micro Data Result Diagrams: 12/28/20 06:35 12/27/20 05:50 Labs: Laboratory Results - last 24 hr 12/27/20 05:50: Hemoglobin A1c 10.3 H 12/27/20 09:49: POC Glucose 296 H 12/27/20 15:00: Troponin I High Sens 15 12/27/20 16:45: POC Glucose 238 H 12/27/20 20:56: POC Glucose 260 H 12/28/20 06:27: POC Glucose 155 H 12/28/20 06:35: WBC 10.1, RBC 3.31 L, Hgb 8.9 L, Hct 28.3 L, MCV 85.5, MCH 26.9 L, MCHC 31.4 L, RDW Std Deviation 43.5, RDW Coeff of Rajendra 13.8, Plt Count 372, MPV 10.9, Immature Gran % (Auto) 0.600, Neut % (Auto) 78.6 H, Lymph % (Auto) 11.5 L, [place] % (Auto) 7.1, Eos % (Auto) 1.6, Baso % (Auto) 0.6, Absolute Neuts (auto) 8.0 H, Absolute Lymphs (auto) 1.16, Nucleated RBC % 0 Micro: Microbiology 12/26/20 17:45 Blood Culture (Wb) - No Site/Description Given Blood Culture - Preliminary 12/26/20 21:05 Nasal Secretion SARS-CoV-2 Antigen (Rapid) - Final 12/26/20 18:56 Wound - Left Foot Gram Stain - Final 12/26/20 18:56 Wound - Left Foot Wound Culture - Preliminary Beta hemolytic organism Gram positive organism Radiography Diagnostic Testing: Radiology Impression Venous Doppler Study 12/27/20 14:33 Interpretation Summary Acute deep vein thrombosis is noted in the left gastrocnemius vein. The remainder of the left lower extremity deep venous system is patent and compressible. Valvular competence appears intact within the proximal deep venous system on the left . The left great saphenous vein appears patent and compressible segmentally. Ordering Physician: Jimy Rahman Referring Physician: Joseph Ricks Performed By: Jennifer Cross RDCS, RVT Os Calcis X-ray 12/27/20 14:55 IMPRESSION: Postoperative changes Electronically Signed: Luke Hamilton MD at 16:06 EDT , Service support , Physical Exam Const alert, oriented x3 and no apparent distress Extremity Extremity Narrative: Vascular: CFT is less than 2seconds all remaining toes without evidence of ischemia with DP and PT palpable bilaterally. Neuro: Significant decrease of epicritic sensation Musculoskeletal: Noted right hallux amputation. Denies pain on palpation of calf. Derm: Right foot ulceration to hallux amputation site. There is mild malodor upon debridement of this area. There is significant hypertrophic crusty eschar type tissue noted above the ulceration site. Granular base upon debridement. Does not probe. No erythema surrounding erythema or edema. No pain on palpation. Malodor is likely due to poor hygiene. Left plantar post anterior lateral heel ulceration. This probes to calcaneus. No further purulent drainage. No malodor. Some surrounding erythema and edema noted. Some granular and fibrotic base mixed. Assessment & Plan Assessment/Plan (1) Non-pressure 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 of bone: (2) Acute osteomyelitis of left foot: (3) Chronic ulcer of right foot with fat layer exposed: (4) Diabetic infection of left foot: (5) Diabetes mellitus with diabetic polyneuropathy: (6) Type 2 diabetes mellitus with foot ulcer: (7) Cellulitis of left lower limb: PLAN: Patient seen and examined Patient is status post left plantar lateral heel debridement with bone biopsy by Dr. Rahman on 12/27/2020. Site is looking much better without any worsening infection noted. Wound is noted to go down to bone. The OR cultures including bone are still pending we will continue to follow. Recommend infectious disease consult given likely osteomyelitis. Continue antibiotics. Placed Dakin's wet to dry dressing on left heel at this time. If continues to improve we will likely switch to wound VAC may be tomorrow. Discussed being discharged with the wound VAC with patient. Patient has had a wound VAC previously patient was amendable to returning to wound VAC therapy. Left plantar lateral heel ulceration measures 8 x 5 x 1.8 cm into the level of bone. Right hallux amputation site ulceration was sharply debrided after verbal consent was obtained by the patient. Sharp excisional nonselective debridement was carried out into the level of subcutaneous tissue with a curette with removal of all devitalized, slough, biofilm, and fibrous tissue. This was done without incidence. This was tolerated due to patient's neuropathy. Predebridement right hallux amputation site measured 0.1 x 0.2 x 0.1 cm and post debridement measured 1 x 1 x 0.1 cm. There is some malodor upon debridement of the right hallux ulceration site this is likely due to poor hygiene as there is no other signs of infection noted. This was then washed with soap and water after debridement was carried out and collagen was placed followed by dry sterile dressing. This should be changed daily. Reviewed the patient discussed importance of smoking cessation, blood sugar control, weight management, offloading, proper nutrition, infection control and hygiene to optimize healing potential. It is noted that patient's hemoglobin A1c is 10.3% on 12/27/2020. Medical management per the medicine team. Patient is noted to be worked up for EKG changes at this time per medicine Podiatry will continue to follow. Please contact if any questions or concerns Dilcia Montanez DPM [facility] [phone] This note was generated with [employer] dictation software. It may contain incorrect words, spelling, and punctuation that were not noted in checking the note before signing.
[2020-12-28 07:59] LABS: Anion Gap 5 (5-15); BUN 50 mg/dL (7-18); BUN/Creat Ratio 22.9 RATIO (10-20); Calcium,Total 9.1 mg/dL (8.5-10.1); Chloride 108 mmol/L (98-107); Creatinine, Serum 2.18 mg/dL (0.70-1.30); EST Glomerular Filtration Rate 34 mL/min (>60); Est Glom Filt Rate - Afr Amer 41 mL/min (>60); Estimated Creatinine Clearance 42.22 ml/min; Glucose 165 mg/dL (74-106); Sodium Level 140 mmol/L (136-145)
--- NOTE | 2020-12-28 08:06 | WOUNDNOTE ---
wound photo: left heel
--- NOTE | 2020-12-28 08:07 | WOUNDNOTE ---
wound photo: right foot
[2020-12-28] MEDS: Metoprolol(XL)Succ 100 MG Tablet PO (08:11)
[2020-12-28] MEDS: Aspirin 81 MG TAB.CHEW PO (08:16)
--- NOTE | 2020-12-28 08:18 | PN.HOSP_ITS ---
Subjective Subjective Patient is a 51-year-old gentleman with past medical history segment for diabetes mellitus type 2, chronic kidney disease stage IV who presented with left heel and midfoot diabetic ulcer with necrosis of the bone Objective Data Objective Data Vital Signs: Vital Signs Temp Pulse Resp BP Pulse Ox 98.2 F 75 20 H 169/70 H 95 12/28/20 06:36 12/28/20 08:11 12/28/20 06:36 12/28/20 08:11 12/28/20 06:36 Oxygen Delivery Method Room Air Weight: 125.2 kg Body Mass Index (BMI) 38.5 Intake & Output: Intake and Output for Last 24 Hours 12/26/20 12/27/20 12/28/20 23:59 23:59 23:59 Intake Total 100 / 440 2420 / 2720 880 / 880 Output Total 1675 / 1675 400 / 400 Balance 100 / 440 745 / 1045 480 / 480 Lab / Micro Data Result Diagrams: 12/28/20 06:35 12/28/20 06:35 Labs: Laboratory Results - last 24 hr 12/27/20 09:49: POC Glucose 296 H 12/27/20 15:00: Troponin I High Sens 15 12/27/20 16:45: POC Glucose 238 H 12/27/20 20:56: POC Glucose 260 H 12/28/20 06:27: POC Glucose 155 H 12/28/20 06:35: WBC 10.1, RBC 3.31 L, Hgb 8.9 L, Hct 28.3 L, MCV 85.5, MCH 26.9 L, MCHC 31.4 L, RDW Std Deviation 43.5, RDW Coeff of Rajendra 13.8, Plt Count 372, MPV 10.9, Immature Gran % (Auto) 0.600, Neut % (Auto) 78.6 H, Lymph % (Auto) 11.5 L, [place] % (Auto) 7.1, Eos % (Auto) 1.6, Baso % (Auto) 0.6, Absolute Neuts (auto) 8.0 H, Absolute Lymphs (auto) 1.16, Nucleated RBC % 0 12/28/20 06:35: Sodium 140, Potassium 4.0, Chloride 108 H, Carbon Dioxide 27.0, Anion Gap 5, BUN 50 H, Creatinine 2.18 H, Estim Creat Clear Calc 42.22, Est GFR (MDRD) Af Amer 41 L, Est GFR (MDRD) Non-Af 34 L, BUN/Creatinine Ratio 22.9 H, Glucose 165 H, Calcium 9.1 Micro: Microbiology 12/26/20 17:45 Blood Culture (Wb) - No Site/Description Given Blood Culture - Preliminary 12/26/20 21:05 Nasal Secretion SARS-CoV-2 Antigen (Rapid) - Final 12/26/20 18:56 Wound - Left Foot Gram Stain - Final 12/26/20 18:56 Wound - Left Foot Wound Culture - Preliminary Beta hemolytic organism Gram positive organism Radiography Diagnostic Testing: Radiology Impression Venous Doppler Study 12/27/20 14:33 Interpretation Summary Acute deep vein thrombosis is noted in the left gastrocnemius vein. The remainder of the left lower extremity deep venous system is patent and compressible. Valvular competence appears intact within the proximal deep venous system on the left . The left great saphenous vein appears patent and compressible segmentally. Ordering Physician: Jimy Rahman Referring Physician: Joseph Ricks Performed By: Jennifer Cross, KAMINI, RVT [facility] X-ray 12/27/20 14:55 IMPRESSION: Postoperative changes Electronically Signed: Luke Hamilton MD at 16:06 EDT , Service support , Physical Exam Narrative GENERAL: cooperative HEENT: Atraumatic; EYES; Anicteric, Normal Conjunctiva NECK; supple, normal thyroid, RESPIRATORY: Diminished to auscultation CARDIOVASCULAR: Regular S1 S2, GI: soft, normoactive bowel sounds, : No Renal angle tenderness; EXTREMITIES: Left foot in surgical dressing MUSCULOSKELETAL: no muscle waisting NEURO: Awake; no lateralizing signs. SKIN: No Rash PSYCH; Flat affect Assessment & Plan Assessment/Plan (1) Acute osteomyelitis of left foot: (2) Cellulitis of left lower limb: (3) Acute electrocardiogram changes: (4) Type 2 diabetes mellitus with foot ulcer: PLAN: Patient is a 51-year-old gentleman with past medical history segment for diabetes mellitus type 2, chronic kidney disease stage IV who presented with left heel and midfoot diabetic ulcer with necrosis of the bone 1, Left lower extremity diabetic ulcer of the left heel and midfoot with necrosis of the bone -Admitted to regular nursing floor started on broad-spectrum antibiotic therapy with consultation placed to both ID as well as podiatry. Patient underwent Debridement of ulcer down to bone with bone biopsy of left calcaneus on 12/27/[address] Rahman 2. Abnormal EKG changes. -Patient was found to have new T wave inversions. 2D echo ordered as a result demonstrated Normal LV size. Mild concentric left ventricular hypertrophy. Left ventricular systolic function is normal. The estimated ejection fraction is 55 %. Stage 1 diastolic dysfunction. 3. CKD stage IV -Appears that serum creatinine at baseline is 2.4-2.6 4. Diabetes mellitus type II uncontrolled with hemoglobin A1c of 10.3 ?Continue patient home regimen with Accu-Cheks before meals and at bedtime with sliding scale coverage. Patient was counseled on the need to be compliant with his diabetic therapy 5. Hypertension - Blood pressure controlled, home medications continued with dose adjustment as needed Dyslipidemia -Patient is on statin therapy, continued at home dose 7. Coronary artery disease -per history 8. Obesity with BMI of 38.5 ?Weight loss advised 9. DVT prophylaxis ?SC heparin Charges/Coding Visit Charges Inpatient E&M: 16043 Subs Hosp L2
[2020-12-28] MEDS: DAKIN'S SOL HALF STRENGTH (=0.25%) 1 APPLIC TOPICAL (10:02)
--- NOTE | 2020-12-28 10:44 | PCM.CONS.GEN ---
Assessment & Plan Assessment/Plan (1) Acute osteomyelitis of left foot: PLAN: L heel osteo, taken to OR 12/27/[address] Rahman for I&D. MRSA pcr (+), wound cx with strep, GPC so far. On vanc/zosyn. Recommended covid vaccine, he is not interested. Will follow, thank you (2) Diabetes mellitus with diabetic polyneuropathy: HPI Consult Data Date of Consult: 12/28/20 HPI Narrative HPI Narrative: YOSEPH PERSAUD, is a 50 M who presented with 3 weeks worsening L foot pain, redness, odor, drainage, swelling. No fever or chills. Has not gotten covid shot. R foot has healed well from previous osteo. Came to ED, started on vanc/zosyn, taken to OR 12/[address] Rahman for I&D down to bone. Feeling better. Full ROS performed and neg except as noted above. [facility] Medical History Atherosclerotic heart disease of [place] coronary artery without angina pectoris Chronic diastolic (congestive) heart failure Diabetes mellitus, type II Essential (primary) hypertension History of non-ST elevation myocardial infarction (NSTEMI) (03/15/20) History of stress test Hyperlipidemia Ischemic cardiomyopathy (06/2013) Obesity Pneumonia due to COVID-19 virus (03/14/20) Venous insufficiency Home Medications Mag-Ox 400 1 tab PO DAILY 09/28/14 [History Last Taken 12/20/18] aspirin 81 mg PO DAILY@0800 09/28/14 [History Last Taken 12/20/18] nitroglycerin 0.4 mg sublingual tablet 0.4 mg SUBLINGUAL Q5-15M PRN 04/20/17 [History Last Taken Unknown] atorvastatin 80 mg PO QHS 12/20/18 [History Last Taken 12/19/18] clopidogrel 75 mg PO DAILY #90 tab 12/25/18 [Rx Last Taken Unknown] glimepiride 2 mg tablet 2 mg PO QAM #90 tab 03/11/19 [Rx Last Taken Unknown] hydralazine 25 mg tablet 25 mg PO .COMPLEX #90 tab 09/08/19 [Rx Last Taken Unknown] hydralazine 50 mg tablet 50 mg PO .COMPLEX #90 tab 09/08/19 [Rx Last Taken Unknown] furosemide 40 mg tablet 40 mg PO .COMPLEX #240 tab 11/18/19 [Rx Last Taken Unknown] amlodipine 5 mg tablet 5 mg PO DAILY #90 tab 02/16/20 [Rx Last Taken Unknown] Trulicity 0.75 mg SUBCUT TH 08/21/20 [History Last Taken Unknown] insulin glargine 15 unit SC DAILY #0 ml 08/26/20 [Rx Last Taken Unknown] amoxicillin 500 mg-potassium clavulanate 125 mg tablet 1 tab PO BID 09/03/20 [History Last Taken Unknown] isosorbide mononitrate 60 mg tablet,extended release 24 hr 60 mg PO DAILY #90 tab 10/25/20 [Rx Last Taken Unknown] losartan 25 mg tablet 25 mg PO DAILY #90 tab 10/25/20 [Rx Last Taken Unknown] metoprolol succinate 100 mg tablet,extended release 24 hr 100 mg PO DAILY #90 tab 10/25/20 [Rx Last Taken Unknown] Allergy/AdvReac Type Severity Reaction Status Date / Time lisinopril AdvReac Intermediate Cough Verified 12/26/20 17:34 losartan AdvReac Intermediate cough Verified 12/26/20 17:34 Family History Father , Age 57 from [place] Myocardial infarction CAD (coronary artery disease) Sudden cardiac Mother Sick sinus syndrome Sister Diabetes Surgical History H/O cardiac catheterization History of coronary artery stent placement (01/02/19) Social History Smoking Status: Never smoker Physical Exam Const alert, oriented x3 and no apparent distress General Appearance: cooperative Exam Limitations: no limitations HEENT normocephalic and head/scalp atraumatic Eyes PERRL and EOMs intact bilaterally Neck supple and No nodes Resp normal air movement and clear to auscultation bilaterally Cardio regular rate and regular rhythm GI normal to inspection, nondistended, normoactive bowel sounds Extremity General Extremity: edema Skin Skin Narrative: reviewed photos Neuro CN's II-XII intact bilaterally Lab / Micro Data Result Diagrams: 12/28/20 06:35 12/28/20 06:35 Labs: Laboratory Results - last 24 hr 12/27/20 15:00: Troponin I High Sens 15 12/27/20 16:45: POC Glucose 238 H 12/27/20 20:56: POC Glucose 260 H 12/28/20 06:27: POC Glucose 155 H 12/28/20 06:35: WBC 10.1, RBC 3.31 L, Hgb 8.9 L, Hct 28.3 L, MCV 85.5, MCH 26.9 L, MCHC 31.4 L, RDW Std Deviation 43.5, RDW Coeff of Rajendra 13.8, Plt Count 372, MPV 10.9, Immature Gran % (Auto) 0.600, Neut % (Auto) 78.6 H, Lymph % (Auto) 11.5 L, [place] % (Auto) 7.1, Eos % (Auto) 1.6, Baso % (Auto) 0.6, Absolute Neuts (auto) 8.0 H, Absolute Lymphs (auto) 1.16, Nucleated RBC % 0 12/28/20 06:35: Sodium 140, Potassium 4.0, Chloride 108 H, Carbon Dioxide 27.0, Anion Gap 5, BUN 50 H, Creatinine 2.18 H, Estim Creat Clear Calc 42.22, Est GFR (MDRD) Af Amer 41 L, Est GFR (MDRD) Non-Af 34 L, BUN/Creatinine Ratio 22.9 H, Glucose 165 H, Calcium 9.1 Micro: Microbiology 12/26/20 17:45 Blood Culture (Wb) - No Site/Description Given Blood Culture - Preliminary 12/27/20 14:56 Tissue - Left Foot Gram Stain - Final 12/27/20 14:56 Bone - Left Foot Gram Stain - Final 12/26/20 21:05 Nasal Secretion SARS-CoV-2 Antigen (Rapid) - Final 12/26/20 18:56 Wound - Left Foot Gram Stain - Final 12/26/20 18:56 Wound - Left Foot Wound Culture - Preliminary Beta hemolytic organism Gram positive organism Radiology Impression Venous Doppler Study 12/27/20 14:33 Interpretation Summary Acute deep vein thrombosis is noted in the left gastrocnemius vein. The remainder of the left lower extremity deep venous system is patent and compressible. Valvular competence appears intact within the proximal deep venous system on the left . The left great saphenous vein appears patent and compressible segmentally. Ordering Physician: Jimy Rahman Referring Physician: Joseph Ricks Performed By: Jennifer Cross, KAMINI, RVT [facility] X-ray 12/27/20 14:55 IMPRESSION: Postoperative changes Electronically Signed: Luke Hamilton MD at 16:06 EDT , Service support ,
--- NOTE | 2020-12-28 11:20 | CASEMGMT ---
Faxed homecare referral to [facility] per patient request as he has had this agency in the past. Pt denied need for list of local in network HHCs. Pt to have wound vac placed tomorrow.
[2020-12-28 11:36] LABS: Bedside Glucose 246 mg/dL (70-110)
[2020-12-28] MEDS: 0.9% Saline Lock 10 ML Syringe IV ×2 (14:48→23:38)
[2020-12-28] MEDS: hydrALAZINE 20 MG/ML Vial 10 MG IV (14:48)
[2020-12-28 17:05] LABS: Bedside Glucose 250 mg/dL (70-110)
[2020-12-28 22:47] LABS: Vancomycin, Trough Level 15.9 ug/mL (5.0-15.0)
[2020-12-28] MEDS: Atorvastatin Calcium 80 MG Tablet PO (23:00)
--- NOTE | 2020-12-28 23:13 | PCM.RX.CS ---
Consult Pharmacy has been consulted to manage selected antiobiotic: Vancomycin Type of Consult: Follow-up Suspected Infection: Skin/Soft tissue Prior Doses of Antibiotics Received/Current Regimen: Medications Vancomycin HCl 1,500 mg/ (Sodium Chloride) 530 mls @ 250 mls/hr IV Q24H PAMELA Last Admin: 12/28/20 23:01 Dose: 250 mls/hr Labs: Sodium 140 mmol/L (136-145) 12/28/20 06:35 Potassium 4.0 mmol/L (3.5-5.1) 12/28/20 06:35 Chloride 108 mmol/L (98-107) H 12/28/20 06:35 Carbon Dioxide 27.0 mmol/L (21.0-32.0) 12/28/20 06:35 Anion Gap 5 (5-15) 12/28/20 06:35 BUN 50 mg/dL (7-18) H 12/28/20 06:35 Creatinine 2.18 mg/dL (0.70-1.30) H 12/28/20 06:35 Est GFR (MDRD) Af Amer 41 mL/min (>60) L 12/28/20 06:35 Est GFR (MDRD) Non-Af 34 mL/min (>60) L 12/28/20 06:35 BUN/Creatinine Ratio 22.9 RATIO (10-20) H 12/28/20 06:35 Glucose 165 mg/dL (74-106) H 12/28/20 06:35 Vancomycin Trough 15.9 ug/mL (5.0-15.0) H 12/28/20 21:59 Microbiology: Microbiology 12/26/20 18:56 Wound - Left Foot Gram Stain - Final 12/26/20 18:56 Wound - Left Foot Wound Culture - Preliminary Beta hemolytic organism Gram positive maribel Coag Negative Staph 12/26/20 18:56 Wound - Left Foot Anaerobic Culture - Preliminary Checking for anaerobes, further studies to follow. 12/27/20 14:56 Tissue - Left Foot Gram Stain - Final 12/27/20 14:56 Tissue - Left Foot Wound Culture - Preliminary Staphylococcus aureus 12/27/20 14:56 Bone - Left Foot Gram Stain - Final 12/27/20 14:56 Bone - Left Foot Wound Culture - Preliminary No growth-Final to follow 12/26/20 17:45 Blood Culture (Wb) - No Site/Description Given Blood Culture - Preliminary 12/26/20 21:05 Nasal Secretion SARS-CoV-2 Antigen (Rapid) - Final Weight used for dosin.2 kg Estimated Creatinine Clearance: 42 Goal Trough: 15-20 mcg/mL Pharmacy Plan for Drug Dosing: Vancomycin trough level of 15.9 was within target range of 15-20. Since pt may not yet be at steady state, will re-draw a trough level in two days. Pharmacy Service will continue to monitor and adjust dosing as required. Follow-Up Labs: Trough Vancomycin Labs to be done on [date and time ordered]: 12/30/20 @3588
[2020-12-28 23:51] LABS: Bedside Glucose 240 mg/dL (70-110)
[2020-12-29] VITALS (10 sets, daily range): BP systolic 160–183; BP diastolic 71–85; PULSE 70–82; RESP 14–18; TEMP 36.6–36.8; O2SAT 96–100
[2020-12-29] MEDS: Heparin Injection (Vial) 5,000 UNIT/ML VIAL 5000 UNIT SC ×3 (07:06→21:17)
[2020-12-29] MEDS: 0.9% Saline Lock 10 ML Syringe IV ×3 (07:08→22:23)
[2020-12-29 07:16] LABS: Bedside Glucose 145 mg/dL (70-110)
--- NOTE | 2020-12-29 07:48 | PN.HOSP_ITS ---
Subjective Subjective Patient blood and wound cultures are as below. Case discussed with Dr. Nick with infectious disease plan is for patient stay for subsequent evaluation and management. Patient apparently threatening to leave AMA. He was warned about the consequences including loss of limb and possible 12/26/20 18:56 Wound - Left Foot Wound Culture - Final Streptococcus dysgalactiae equ Corynebacterium amycolatum Staphylococcus haemolyticus 12/26/20 17:45 Blood Culture (Wb) - No Site/Description Given Blood Culture - Preliminary Staphylococcus aureus Objective Data Objective Data Vital Signs: Vital Signs Temp Pulse Resp BP Pulse Ox 97.8 F 75 18 160/71 H 97 12/29/20 03:24 12/29/20 03:24 12/29/20 03:24 12/29/20 03:24 12/29/20 03:24 Oxygen Delivery Method Room Air Weight: 125.2 kg Body Mass Index (BMI) 38.5 Intake & Output: Intake and Output for Last 24 Hours 12/27/20 12/28/20 12/29/20 23:59 23:59 23:59 Intake Total 2420 / 2720 1420 / 1420 580 / 580 Output Total 1675 / 1675 1650 / 1650 675 / 675 Balance 745 / 1045 -230 / -230 -95 / -95 Lab / Micro Data Result Diagrams: 12/28/20 06:35 12/28/20 06:35 Labs: Laboratory Results - last 24 hr 12/28/20 06:35: Sodium 140, Potassium 4.0, Chloride 108 H, Carbon Dioxide 27.0, Anion Gap 5, BUN 50 H, Creatinine 2.18 H, Estim Creat Clear Calc 42.22, Est GFR (MDRD) Af Amer 41 L, Est GFR (MDRD) Non-Af 34 L, BUN/Creatinine Ratio 22.9 H, Glucose 165 H, Calcium 9.1 12/28/20 11:32: POC Glucose 246 H 12/28/20 16:49: POC Glucose 250 H 12/28/20 21:59: Vancomycin Trough 15.9 H 12/28/20 23:31: POC Glucose 240 H 12/29/20 07:03: POC Glucose 145 H Micro: Microbiology 12/26/20 18:56 Blood Culture (Wb) - Left Wrist Blood Culture - Preliminary No growth in 48 hours. 12/26/20 17:45 Blood Culture (Wb) - No Site/Description Given Blood Culture - Preliminary Staphylococcus aureus 12/26/20 18:56 Wound - Left Foot Gram Stain - Final 12/26/20 18:56 Wound - Left Foot Wound Culture - Preliminary Beta hemolytic organism Gram positive maribel Coag Negative Staph 12/26/20 18:56 Wound - Left Foot Anaerobic Culture - Preliminary Checking for anaerobes, further studies to follow. 12/27/20 14:56 Tissue - Left Foot Gram Stain - Final 12/27/20 14:56 Tissue - Left Foot Wound Culture - Preliminary Staphylococcus aureus 12/27/20 14:56 Bone - Left Foot Gram Stain - Final 12/27/20 14:56 Bone - Left Foot Wound Culture - Preliminary No growth-Final to follow 12/26/20 21:05 Nasal Secretion SARS-CoV-2 Antigen (Rapid) - Final Radiography Diagnostic Testing: Radiology Impression Echocardiogram 12/27/20 14:27 Interpretation Summary Normal LV size. Mild concentric left ventricular hypertrophy. Left ventricular systolic function is normal. The estimated ejection fraction is 55 %. Stage 1 diastolic dysfunction. Contrast injection was performed. Ordering Physician: Georgia Morrissey Referring Physician: Joseph Ricks Performed By: Mariam Schwartz, KAMINI, RVT Physical Exam Narrative GENERAL: cooperative HEENT: Atraumatic; EYES; Anicteric, Normal Conjunctiva NECK; supple, normal thyroid, RESPIRATORY: Diminished to auscultation CARDIOVASCULAR: Regular S1 S2, GI: soft, normoactive bowel sounds, : No Renal angle tenderness; EXTREMITIES: Left foot in surgical dressing MUSCULOSKELETAL: no muscle waisting NEURO: Awake; no lateralizing signs. SKIN: No Rash PSYCH; Flat affect Assessment & Plan Assessment/Plan (1) Acute osteomyelitis of left foot: (2) Cellulitis of left lower limb: (3) Acute electrocardiogram changes: (4) Type 2 diabetes mellitus with foot ulcer: PLAN: Patient is a 51-year-old gentleman with past medical history segment for diabetes mellitus type 2, chronic kidney disease stage IV who presented with left heel and midfoot diabetic ulcer with necrosis of the bone 1, Left lower extremity diabetic ulcer of the left heel and midfoot with necrosis of the bone -Admitted to regular nursing floor started on broad-spectrum antibiotic therapy with consultation placed to both ID as well as podiatry. Patient underwent Debridement of ulcer down to bone with bone biopsy of left calcaneus on 12/27/[address] Rahman -Patient blood and wound cultures are as below. Case discussed with Dr. Nick with infectious disease plan is for patient stay for subsequent evaluation and management. Patient apparently threatening to leave AMA. He was warned about the consequences including loss of limb and possible 12/26/20 18:56 Wound - Left Foot Wound Culture - Final Streptococcus dysgalactiae equ Corynebacterium amycolatum Staphylococcus haemolyticus 12/26/20 17:45 Blood Culture (Wb) - No Site/Description Given Blood Culture - Preliminary Staphylococcus aureus 2. Abnormal EKG changes. -Patient was found to have new T wave inversions. 2D echo ordered as a result demonstrated Normal LV size. Mild concentric left ventricular hypertrophy. Left ventricular systolic function is normal. The estimated ejection fraction is 55 %. Stage 1 diastolic dysfunction. 3. CKD stage IV -Appears that serum creatinine at baseline is 2.4-2.6 4. Diabetes mellitus type II uncontrolled with hemoglobin A1c of 10.3 ?Continue patient home regimen with Accu-Cheks before meals and at bedtime with sliding scale coverage. Patient was counseled on the need to be compliant with his diabetic therapy 5. Hypertension - Blood pressure controlled, home medications continued with dose adjustment as needed Dyslipidemia -Patient is on statin therapy, continued at home dose 7. Coronary artery disease -per history 8. Obesity with BMI of 38.5 ?Weight loss advised 9. DVT prophylaxis ?SC heparin Charges/Coding Visit Charges Inpatient E&M: 07096 Subs Hosp L3
--- NOTE | 2020-12-29 07:59 | PN_ITS ---
Subjective Subjective Patient seen and examined resting comfortably. Patient denies any new pedal complaints. Patient denies any nausea, fever, chills, chest pain, shortness of breath, cough, streaking, purulence, vomiting. Patient is resting comfortably bedside playing Candy crush on his phone Objective Data Objective Data Vital Signs: Vital Signs Temp Pulse Resp BP Pulse Ox 97.8 F 75 18 160/71 H 97 12/29/20 03:24 12/29/20 03:24 12/29/20 03:24 12/29/20 03:24 12/29/20 03:24 Oxygen Delivery Method Room Air Weight: 125.2 kg Body Mass Index (BMI) 38.5 Intake & Output: Intake and Output for Last 24 Hours 12/27/20 12/28/20 12/29/20 23:59 23:59 23:59 Intake Total 2420 / 2720 1420 / 1420 580 / 580 Output Total 1675 / 1675 1650 / 1650 675 / 675 Balance 745 / 1045 -230 / -230 -95 / -95 Lab / Micro Data Result Diagrams: 12/28/20 06:35 12/28/20 06:35 Labs: Laboratory Results - last 24 hr 12/28/20 06:35: Sodium 140, Potassium 4.0, Chloride 108 H, Carbon Dioxide 27.0, Anion Gap 5, BUN 50 H, Creatinine 2.18 H, Estim Creat Clear Calc 42.22, Est GFR (MDRD) Af Amer 41 L, Est GFR (MDRD) Non-Af 34 L, BUN/Creatinine Ratio 22.9 H, Glucose 165 H, Calcium 9.1 12/28/20 11:32: POC Glucose 246 H 12/28/20 16:49: POC Glucose 250 H 12/28/20 21:59: Vancomycin Trough 15.9 H 12/28/20 23:31: POC Glucose 240 H 12/29/20 07:03: POC Glucose 145 H Micro: Microbiology 12/26/20 18:56 Blood Culture (Wb) - Left Wrist Blood Culture - Preliminary No growth in 48 hours. 12/26/20 17:45 Blood Culture (Wb) - No Site/Description Given Blood Culture - Preliminary Staphylococcus aureus 12/26/20 18:56 Wound - Left Foot Gram Stain - Final 12/26/20 18:56 Wound - Left Foot Wound Culture - Preliminary Beta hemolytic organism Gram positive maribel Coag Negative Staph 12/26/20 18:56 Wound - Left Foot Anaerobic Culture - Preliminary Checking for anaerobes, further studies to follow. 12/27/20 14:56 Tissue - Left Foot Gram Stain - Final 12/27/20 14:56 Tissue - Left Foot Wound Culture - Preliminary Staphylococcus aureus 12/27/20 14:56 Bone - Left Foot Gram Stain - Final 12/27/20 14:56 Bone - Left Foot Wound Culture - Preliminary No growth-Final to follow 12/26/20 21:05 Nasal Secretion SARS-CoV-2 Antigen (Rapid) - Final Radiography Diagnostic Testing: Radiology Impression Echocardiogram 12/27/20 14:27 Interpretation Summary Normal LV size. Mild concentric left ventricular hypertrophy. Left ventricular systolic function is normal. The estimated ejection fraction is 55 %. Stage 1 diastolic dysfunction. Contrast injection was performed. Ordering Physician: Georgia Morrissey Referring Physician: Joseph Ricks Performed By: Mariam Schwartz, KAMINI, RVT Physical Exam Const alert, oriented x3 and no apparent distress Extremity Extremity Narrative: Vascular: CFT is less than 2seconds all remaining toes without evidence of ischemia with DP and PT palpable bilaterally. Neuro: Significant decrease of epicritic sensation Musculoskeletal: Noted right hallux amputation. Denies pain on palpation of calf. Derm: Right foot ulceration to hallux amputation site. There no malodor. Wound has noted to have improved in appearance with smaller size. Granular base. Does not probe. No erythema surrounding erythema or edema. No pain on palpation. Left plantar post anterior lateral heel ulceration. This probes to calcaneus. No further purulent drainage. No malodor. Skin edges are warm. Some surrounding erythema and edema noted, largely resolved. Some granular and fibrotic base mixed. Assessment & Plan Assessment/Plan (1) Non-pressure 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 of bone: (2) Acute osteomyelitis of left foot: (3) Chronic ulcer of right foot with fat layer exposed: (4) Diabetic infection of left foot: (5) Diabetes mellitus with diabetic polyneuropathy: (6) Type 2 diabetes mellitus with foot ulcer: (7) Cellulitis of left lower limb: PLAN: Patient seen and examined Patient is status post left plantar lateral heel debridement with bone biopsy by Dr. Rahman on 12/27/2020. Site is looking much better without any worsening infection noted. Wound is noted to go down to bone. The OR cultures including bone are still pending we will continue to follow. So far some staph aureus is growing. Infectious disease consult noted, continue recommended antibiotics Placed Dakin's wet to dry dressing on left heel at this time. If continues to improve we will likely switch to wound VAC depending on patient's length of stay anticipation. Discussed being discharged with the wound VAC with patient. Patient has had a wound VAC previously patient was amendable to returning to wound VAC therapy. Left plantar lateral heel ulceration measures 8 x 5 x 1.8 cm into the level of bone. This has been ordered by wound care center. Wound care nurse is aware of the situation will continue to monitor. Right hallux amputation site ulceration looks improved. Continue hydrogel dressing covered by dry sterile dressing. Change daily. Reviewed the patient discussed importance of smoking cessation, blood sugar control, weight management, offloading, proper nutrition, infection control and hygiene to optimize healing potential. It is noted that patient's hemoglobin A1c is 10.3% on 12/27/2020. Medical management per the medicine team. Patient is noted to be worked up for EKG changes at this time per medicine Podiatry will continue to follow. Please contact if any questions or concerns. Okay to discharge from podiatry standpoint. Follow-up at wound care center upon discharge. Dilcia Montanez DPM [facility] [phone] This note was generated with [employer] software. It may contain incorrect words, spelling, and punctuation that were not noted in checking the note before signing.
--- NOTE | 2020-12-29 09:17 | CASEMGMT ---
Addendum entered by Cathleen Jaramillo 12/29/20 13:52: Received tc back from Peewee at [facility]. He states he spoke with and patient can have the wound vac changed on Tuesdays and Fridays at the wound center. The wound vac will be delivered to the pt home and he needs to call in to make an appt when it arrives. RN CM in to pt room, to make aware that his HHC benefits have been exhausted. He is agreeable to go to the [facility] twice a week and is aware of all of the above. Original Note: TC to N to verify if referral was received and accepted. Per [place], pt home health benefits are exhausted for the year. If pt were to receive C it would be self pay. Pt to dc with wound vac. TC to [facility] who is in the process of getting the vac approved to see if there is a possibility for patient to go to [facility] 3x/wk for vac change prior to meeting with patient to discuss options. Left message on clinical manager personnel selection Peewee's voicemail, awaiting returned call.
[2020-12-29] MEDS: DAKIN'S SOL HALF STRENGTH (=0.25%) 1 APPLIC TOPICAL (09:55)
[2020-12-29] MEDS: Aspirin 81 MG TAB.CHEW PO (09:56)
[2020-12-29] MEDS: Metoprolol(XL)Succ 100 MG Tablet PO (09:56)
[2020-12-29] MEDS: Insulin Lispro 100 UNIT/ML INSULN.PEN SC ×3 (11:15→21:28)
[2020-12-29 11:45] LABS: Bedside Glucose 167 mg/dL (70-110)
--- NOTE | 2020-12-29 14:54 | PCM.PN.ID ---
Physical Exam Narrative Frustrated, wants to go home. No fever. Const alert General Appearance: cooperative Eyes PERRL and EOMs intact bilaterally Resp normal air movement and clear to auscultation bilaterally Cardio regular rate and regular rhythm GI normal to inspection, nondistended, normoactive bowel sounds Skin no rashes or lesions noted Skin Narrative: leg wrapped ID ID: Route of nutrition/ use of supplements: [] Nutritional Intake: [] IV Site: [] Cruz Catheter: [] Assessment & Plan Assessment/Plan (1) Acute osteomyelitis of left foot: PLAN: L heel osteo, taken to OR 12/27/[address] Rahman for I&D. MRSA pcr (+), wound cx with strep, GPC so far. On vanc/zosyn. Recommended covid vaccine, he is not interested. Now with staph aureus (+) bcx. Will check repeat bcx. TTE showed no veg. Recommend picc line and 6 weeks iv abx once bcx have cleared at least 48 hours. If he must go sooner than that, could do 2 weeks linezolid/augmentin and then finish with 4 weeks of other po abx, but counseled him that this would increase risk of recurrent infection, losing his leg, and . Will follow, d/w social work case manager and Dr. Ugarte (2) Diabetes mellitus with diabetic polyneuropathy:
[2020-12-29 16:45] LABS: Bedside Glucose 178 mg/dL (70-110)
[2020-12-29] MEDS: hydrALAZINE 20 MG/ML Vial 10 MG IV ×2 (16:53→21:12)
[2020-12-29] MEDS: Atorvastatin Calcium 80 MG Tablet PO (21:17)
[2020-12-29 21:45] LABS: Bedside Glucose 207 mg/dL (70-110)
[2020-12-30] VITALS (14 sets, daily range): BP systolic 137–173; BP diastolic 68–78; PULSE 68–82; RESP 18–20; TEMP 36.4–37; O2SAT 95–97
[2020-12-30] MEDS: hydrALAZINE 50 MG Tablet PO ×3 (00:44→21:33)
[2020-12-30] MEDS: Furosemide 40 MG Tablet PO ×3 (00:45→21:33)
[2020-12-30] MEDS: Losartan Potassium 25 MG Tablet PO ×2 (00:45→09:32)
[2020-12-30] MEDS: hydrALAZINE 25 MG Tablet PO ×3 (00:45→21:32)
[2020-12-30] MEDS: amLODIPine 5 MG Tablet PO ×2 (00:45→09:30)
[2020-12-30] MEDS: hydrALAZINE 20 MG/ML Vial 10 MG IV (03:52)
[2020-12-30] MEDS: Heparin Injection (Vial) 5,000 UNIT/ML VIAL 5000 UNIT SC ×3 (06:55→21:34)
[2020-12-30] MEDS: Insulin Lispro 100 UNIT/ML INSULN.PEN SC ×4 (06:56→21:40)
[2020-12-30 07:06] LABS: Bedside Glucose 153 mg/dL (70-110)
--- NOTE | 2020-12-30 07:15 | PCM.PROGNOTE ---
Subjective Subjective Patient seen and examined resting comfortably. Patient denies any new pedal complaints. Patient denies any nausea, fever, chills, chest pain, shortness of breath, cough, streaking, purulence, vomiting. Patient expresses some displeasure over still being in the hospital. Patient understands that it is in his best interest to stay continue treatment. He also expresses frustration with his insurance company as far as not covering home health care. Objective Data Objective Data Vital Signs: Vital Signs Temp Pulse Resp BP Pulse Ox 98.3 F 76 18 149/68 H 95 12/30/20 03:50 12/30/20 06:51 12/30/20 03:50 12/30/20 06:51 12/30/20 03:50 Oxygen Delivery Method Room Air Weight: 125.2 kg Body Mass Index (BMI) 38.5 Intake & Output: Intake and Output for Last 24 Hours 12/28/20 12/29/20 12/30/20 23:59 23:59 23:59 Intake Total 1420 / 1420 2080 / 2080 1133.5 / 1133.5 Output Total 1650 / 1650 1275 / 1275 900 / 900 Balance -230 / -230 805 / 805 233.5 / 233.5 Lab / Micro Data Result Diagrams: 12/28/20 06:35 12/28/20 06:35 Labs: Laboratory Results - last 24 hr 12/29/20 07:03: POC Glucose 145 H 12/29/20 11:14: POC Glucose 167 H 12/29/20 16:37: POC Glucose 178 H 12/29/20 21:28: POC Glucose 207 H 12/30/20 06:55: POC Glucose 153 H Micro: Microbiology 12/27/20 14:56 Bone - Left Foot Gram Stain - Final 12/27/20 14:56 Bone - Left Foot Wound Culture - Preliminary No growth-Final to follow 12/27/20 14:56 Bone - Left Foot Anaerobic Culture - Preliminary No growth in 48 hours. 12/27/20 14:56 Tissue - Left Foot Gram Stain - Final 12/27/20 14:56 Tissue - Left Foot Wound Culture - Final Meth. resistant Staph. aureus Corynebacterium amycolatum 12/27/20 14:56 Tissue - Left Foot Anaerobic Culture - Preliminary Checking for anaerobes, further studies to follow. 12/26/20 18:56 Wound - Left Foot Gram Stain - Final 12/26/20 18:56 Wound - Left Foot Wound Culture - Final Streptococcus dysgalactiae equ Corynebacterium amycolatum Staphylococcus haemolyticus 12/26/20 18:56 Wound - Left Foot Anaerobic Culture - Preliminary Checking for anaerobes, further studies to follow. 12/26/20 18:56 Blood Culture (Wb) - Left Wrist Blood Culture - Preliminary No growth in 48 hours. 12/26/20 17:45 Blood Culture (Wb) - No Site/Description Given Blood Culture - Preliminary Staphylococcus aureus 12/26/20 21:05 Nasal Secretion SARS-CoV-2 Antigen (Rapid) - Final Physical Exam Const alert, oriented x3 and no apparent distress Extremity Extremity Narrative: Vascular: CFT is less than 2 seconds all remaining toes without evidence of ischemia with DP and PT palpable bilaterally. Neuro: Significant decrease of epicritic sensation Musculoskeletal: Noted right hallux amputation. Denies pain on palpation of calf. Derm: Right foot ulceration to hallux amputation site. There no malodor. Wound has noted to have improved in appearance with smaller size. Granular base. Does not probe. No erythema surrounding erythema or edema. No pain on palpation. Left plantar posterior lateral heel ulceration. This probes to calcaneus. No further purulent drainage. No malodor. Skin edges are warm. Some surrounding erythema and edema noted, largely resolved. Some granular and fibrotic base mixed. Assessment & Plan Assessment/Plan (1) Non-pressure 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 of bone: (2) Acute osteomyelitis of left foot: (3) Chronic ulcer of right foot with fat layer exposed: (4) Diabetic infection of left foot: (5) Diabetes mellitus with diabetic polyneuropathy: (6) Type 2 diabetes mellitus with foot ulcer: (7) Cellulitis of left lower limb: PLAN: Patient seen and examined Patient is status post left plantar lateral heel debridement with bone biopsy by Dr. Rahman on 12/27/2020. Site is looking much better without any worsening infection noted. Wound is noted to go down to bone. The OR cultures including bone are still pending we will continue to follow. So far MRSA and Corynebacterium are growing. Patient is also noted to have positive blood cultures with staph aureus. Repeat blood cultures are pending. Infectious disease consult noted, continue recommended antibiotics. Patient is noted to expressed a desire for pill antibiotics over IV antibiotics. Discussed with the patient that not all infections are able to be treated with pill antibiotics and he may be best served with IV antibiotics but will leave this discussion up with Dr. Nick. It appears the patient will be here another day. Will place wound VAC at this time to left heel. Patient to continue wound VAC therapy upon discharge. Wound VAC has been submitted for by wound care center. Patient is also noted to have potential use all of his home health care allotment per his insurance plan. Discussed having wound VAC changed at the wound care center twice a week instead. Patient is amendable to this plan. We will continue to monitor insurance and home health care benefits possibilities. Wound care nurse is aware of the situation will continue to monitor. Right hallux amputation site ulceration looks improved. Continue hydrogel dressing covered by dry sterile dressing. Change daily. Continue to wash foot daily with soap and water. Reviewed the patient discussed importance of smoking cessation, blood sugar control, weight management, offloading, proper nutrition, infection control and hygiene to optimize healing potential. It is noted that patient's hemoglobin A1c is 10.3% on 12/27/2020. Discussed with the patient that his high blood sugars are contributing to his poor healing. Patient relates that his blood sugars have been good since being in the hospital. Discussed that his hemoglobin A1c suggest that he is not have good blood sugar control long-term in a few days of good numbers is not going to be enough he needs to have more long-term control to improve his healing outcomes. Medical management per the medicine team. Podiatry will continue to follow. Please contact if any questions or concerns. Okay to discharge from podiatry standpoint. Follow-up at wound care center upon discharge. Dilcia Montanez DPM [facility] [place] [phone] This note was generated with [employer] dictation software. It may contain incorrect words, spelling, and punctuation that were not noted in checking the note before signing.
--- NOTE | 2020-12-30 07:58 | WOUNDNOTE ---
wound photo: left heel
--- NOTE | 2020-12-30 08:05 | PCM.PN.HOSP ---
Subjective Subjective Repeat blood cultures ordered. Patient finally agreed to stay to complete evaluation Objective Data Objective Data Vital Signs: Vital Signs Temp Pulse Resp BP Pulse Ox 98.3 F 76 18 149/68 H 95 12/30/20 03:50 12/30/20 06:51 12/30/20 03:50 12/30/20 06:51 12/30/20 03:50 Oxygen Delivery Method Room Air Weight: 125.2 kg Body Mass Index (BMI) 38.5 Intake & Output: Intake and Output for Last 24 Hours 12/28/20 12/29/20 12/30/20 23:59 23:59 23:59 Intake Total 1420 / 1420 2080 / 2080 1133.5 / 1133.5 Output Total 1650 / 1650 1275 / 1275 900 / 900 Balance -230 / -230 805 / 805 233.5 / 233.5 Lab / Micro Data Result Diagrams: 12/28/20 06:35 12/28/20 06:35 Labs: Laboratory Results - last 24 hr 12/29/20 11:14: POC Glucose 167 H 12/29/20 16:37: POC Glucose 178 H 12/29/20 21:28: POC Glucose 207 H 12/30/20 06:55: POC Glucose 153 H Micro: Microbiology 12/26/20 17:45 Blood Culture (Wb) - No Site/Description Given Blood Culture - Preliminary Meth. resistant Staph. aureus 12/27/20 14:56 Bone - Left Foot Gram Stain - Final 12/27/20 14:56 Bone - Left Foot Wound Culture - Preliminary No growth-Final to follow 12/27/20 14:56 Bone - Left Foot Anaerobic Culture - Preliminary No growth in 48 hours. 12/27/20 14:56 Tissue - Left Foot Gram Stain - Final 12/27/20 14:56 Tissue - Left Foot Wound Culture - Final Meth. resistant Staph. aureus Corynebacterium amycolatum 12/27/20 14:56 Tissue - Left Foot Anaerobic Culture - Preliminary Checking for anaerobes, further studies to follow. 12/26/20 18:56 Wound - Left Foot Gram Stain - Final 12/26/20 18:56 Wound - Left Foot Wound Culture - Final Streptococcus dysgalactiae equ Corynebacterium amycolatum Staphylococcus haemolyticus 12/26/20 18:56 Wound - Left Foot Anaerobic Culture - Preliminary Checking for anaerobes, further studies to follow. 12/26/20 18:56 Blood Culture (Wb) - Left Wrist Blood Culture - Preliminary No growth in 48 hours. 12/26/20 21:05 Nasal Secretion SARS-CoV-2 Antigen (Rapid) - Final Physical Exam Narrative GENERAL: cooperative HEENT: Atraumatic; EYES; Anicteric, Normal Conjunctiva NECK; supple, normal thyroid, RESPIRATORY: Diminished to auscultation CARDIOVASCULAR: Regular S1 S2, GI: soft, normoactive bowel sounds, : No Renal angle tenderness; EXTREMITIES: Left foot in surgical dressing MUSCULOSKELETAL: no muscle waisting NEURO: Awake; no lateralizing signs. SKIN: No Rash PSYCH; Flat affect Assessment & Plan Assessment/Plan (1) Acute osteomyelitis of left foot: (2) Cellulitis of left lower limb: (3) Acute electrocardiogram changes: (4) Type 2 diabetes mellitus with foot ulcer: PLAN: Patient is a 51-year-old gentleman with past medical history segment for diabetes mellitus type 2, chronic kidney disease stage IV who presented with left heel and midfoot diabetic ulcer with necrosis of the bone 1, Left lower extremity diabetic ulcer of the left heel and midfoot with necrosis of the bone -Admitted to regular nursing floor started on broad-spectrum antibiotic therapy with consultation placed to both ID as well as podiatry. Patient underwent Debridement of ulcer down to bone with bone biopsy of left calcaneus on 12/27/[address] Rahman -Patient blood and wound cultures are as below. Case discussed with Dr. Nick with infectious disease plan is for patient stay for subsequent evaluation and management. Patient apparently threatening to leave [place]. He was warned about the consequences including loss of limb and possible 12/26/20 18:56 Wound - Left Foot Wound Culture - Final Streptococcus dysgalactiae equ Corynebacterium amycolatum Staphylococcus haemolyticus 12/26/20 17:45 Blood Culture (Wb) - No Site/Description Given Blood Culture - Preliminary Staphylococcus aureus -12/30/2020. Case was discussed with Dr. Nick with infectious disease. Repeat blood cultures ordered. Plan is for patient to undergo PICC line placement need blood cultures, negative and patient be sent home with IV antibiotics given his positive blood cultures 2. Abnormal EKG changes. -Patient was found to have new T wave inversions. 2D echo ordered as a result demonstrated Normal LV size. Mild concentric left ventricular hypertrophy. Left ventricular systolic function is normal. The estimated ejection fraction is 55 %. Stage 1 diastolic dysfunction. 3. CKD stage IV -Appears that serum creatinine at baseline is 2.4-2.6 4. Diabetes mellitus type II uncontrolled with hemoglobin A1c of 10.3 ?Continue patient home regimen with Accu-Cheks before meals and at bedtime with sliding scale coverage. Patient was counseled on the need to be compliant with his diabetic therapy 5. Hypertension - Blood pressure controlled, home medications continued with dose adjustment as needed Dyslipidemia -Patient is on statin therapy, continued at home dose 7. Coronary artery disease -per history 8. Obesity with BMI of 38.5 ?Weight loss advised 9. DVT prophylaxis ?SC heparin Charges/Coding Visit Charges Inpatient E&M: 25720 Subs Hosp L2
[2020-12-30] MEDS: Aspirin 81 MG TAB.CHEW PO (09:22)
[2020-12-30] MEDS: Metoprolol(XL)Succ 100 MG Tablet PO (09:23)
[2020-12-30] MEDS: Isosorbide Mononitrate 60 MG Tablet PO (09:32)
[2020-12-30 11:56] LABS: Bedside Glucose 177 mg/dL (70-110)
[2020-12-30 16:11] LABS: Bedside Glucose 165 mg/dL (70-110)
[2020-12-30] MEDS: Atorvastatin Calcium 80 MG Tablet PO (21:33)
[2020-12-30] MEDS: 0.9% Saline Lock 10 ML Syringe IV (21:45)
[2020-12-30 22:00] LABS: Bedside Glucose 235 mg/dL (70-110)
[2020-12-30 22:28] LABS: Vancomycin, Trough Level 20.8 ug/mL (5.0-15.0)
[2020-12-31] VITALS (10 sets, daily range): BP systolic 139–172; BP diastolic 66–78; PULSE 70–95; RESP 12–18; TEMP 36.4–36.9; O2SAT 94–98
--- NOTE | 2020-12-31 00:14 | PCM.RX.CS ---
Consult Pharmacy has been consulted to manage selected antiobiotic: Vancomycin Type of Consult: Follow-up Suspected Infection: Skin/Soft tissue Labs: Sodium 140 mmol/L (136-145) 12/28/20 06:35 Potassium 4.0 mmol/L (3.5-5.1) 12/28/20 06:35 Chloride 108 mmol/L (98-107) H 12/28/20 06:35 Carbon Dioxide 27.0 mmol/L (21.0-32.0) 12/28/20 06:35 Anion Gap 5 (5-15) 12/28/20 06:35 BUN 50 mg/dL (7-18) H 12/28/20 06:35 Creatinine 2.18 mg/dL (0.70-1.30) H 12/28/20 06:35 Est GFR (MDRD) Af Amer 41 mL/min (>60) L 12/28/20 06:35 Est GFR (MDRD) Non-Af 34 mL/min (>60) L 12/28/20 06:35 BUN/Creatinine Ratio 22.9 RATIO (10-20) H 12/28/20 06:35 Glucose 165 mg/dL (74-106) H 12/28/20 06:35 Vancomycin Trough 20.8 ug/mL (5.0-15.0) H 12/30/20 21:33 Microbiology: Microbiology 12/26/20 17:45 Blood Culture (Wb) - No Site/Description Given Blood Culture - Preliminary Meth. resistant Staph. aureus 12/27/20 14:56 Bone - Left Foot Gram Stain - Final 12/27/20 14:56 Bone - Left Foot Wound Culture - Preliminary No growth-Final to follow 12/27/20 14:56 Bone - Left Foot Anaerobic Culture - Preliminary No growth in 48 hours. 12/27/20 14:56 Tissue - Left Foot Gram Stain - Final 12/27/20 14:56 Tissue - Left Foot Wound Culture - Final Meth. resistant Staph. aureus Corynebacterium amycolatum 12/27/20 14:56 Tissue - Left Foot Anaerobic Culture - Preliminary Checking for anaerobes, further studies to follow. 12/26/20 18:56 Wound - Left Foot Gram Stain - Final 12/26/20 18:56 Wound - Left Foot Wound Culture - Final Streptococcus dysgalactiae equ Corynebacterium amycolatum Staphylococcus haemolyticus 12/26/20 18:56 Wound - Left Foot Anaerobic Culture - Preliminary Checking for anaerobes, further studies to follow. 12/26/20 18:56 Blood Culture (Wb) - Left Wrist Blood Culture - Preliminary No growth in 48 hours. 12/26/20 21:05 Nasal Secretion SARS-CoV-2 Antigen (Rapid) - Final Goal Trough: 15-20 mcg/mL Pharmacy Plan for Drug Dosing: Pharmacy Service will continue to monitor and adjust dosing as required. TROUGH 20.8 DOSE AND TROUGH ON TIME. DOSE ALREADY GIVEN, HOLS NEXT DOSE, DRAW RANDOM LEVEL IN 18 HRS AND REDOSE. Follow-Up Labs: Trough Vancomycin Labs to be done on [date and time ordered]: 12/31 @ 1600
[2020-12-31] MEDS: hydrALAZINE 20 MG/ML Vial 10 MG IV ×2 (01:02→05:33)
[2020-12-31] MEDS: Heparin Injection (Vial) 5,000 UNIT/ML VIAL 5000 UNIT SC (05:33)
[2020-12-31] MEDS: Insulin Lispro 100 UNIT/ML INSULN.PEN SC ×2 (06:26→11:51)
[2020-12-31 06:36] LABS: Bedside Glucose 161 mg/dL (70-110)
--- NOTE | 2020-12-31 08:00 | PCM.PN.HOSP ---
Subjective Subjective She has seen had a relatively uneventful night. Plan is for patient to be discharged home after he has been seen by infectious disease. Objective Data Objective Data Vital Signs: Vital Signs Temp Pulse Resp BP Pulse Ox 98.4 F 82 18 172/78 H 94 12/31/20 04:20 12/31/20 05:33 12/31/20 04:20 12/31/20 05:33 12/31/20 04:20 Oxygen Delivery Method Room Air Weight: 125.2 kg Body Mass Index (BMI) 38.5 Intake & Output: Intake and Output for Last 24 Hours 12/29/20 12/30/20 12/31/20 23:59 23:59 23:59 Intake Total 2080 / 2080 1873.5 / 2373.5 1294 / 1294 Output Total 1275 / 1275 1875 / 3275 1900 / 1900 Balance 805 / 805 -1.5 / -901.5 -606 / -606 Lab / Micro Data Result Diagrams: 12/28/20 06:35 12/28/20 06:35 Labs: Laboratory Results - last 24 hr 12/30/20 11:46: POC Glucose 177 H 12/30/20 16:05: POC Glucose 165 H 12/30/20 21:33: Vancomycin Trough 20.8 H 12/30/20 21:39: POC Glucose 235 H 12/31/20 06:25: POC Glucose 161 H Micro: Microbiology 12/26/20 17:45 Blood Culture (Wb) - No Site/Description Given Blood Culture - Preliminary Meth. resistant Staph. aureus 12/27/20 14:56 Bone - Left Foot Gram Stain - Final 12/27/20 14:56 Bone - Left Foot Wound Culture - Preliminary No growth-Final to follow 12/27/20 14:56 Bone - Left Foot Anaerobic Culture - Preliminary No growth in 48 hours. 12/27/20 14:56 Tissue - Left Foot Gram Stain - Final 12/27/20 14:56 Tissue - Left Foot Wound Culture - Final Meth. resistant Staph. aureus Corynebacterium amycolatum 12/27/20 14:56 Tissue - Left Foot Anaerobic Culture - Preliminary Checking for anaerobes, further studies to follow. 12/26/20 18:56 Wound - Left Foot Gram Stain - Final 12/26/20 18:56 Wound - Left Foot Wound Culture - Final Streptococcus dysgalactiae equ Corynebacterium amycolatum Staphylococcus haemolyticus 12/26/20 18:56 Wound - Left Foot Anaerobic Culture - Preliminary Checking for anaerobes, further studies to follow. 12/26/20 18:56 Blood Culture (Wb) - Left Wrist Blood Culture - Preliminary No growth in 48 hours. 12/26/20 21:05 Nasal Secretion SARS-CoV-2 Antigen (Rapid) - Final Physical Exam Narrative GENERAL: cooperative HEENT: Atraumatic; EYES; Anicteric, Normal Conjunctiva NECK; supple, normal thyroid, RESPIRATORY: Diminished to auscultation CARDIOVASCULAR: Regular S1 S2, GI: soft, normoactive bowel sounds, : No Renal angle tenderness; EXTREMITIES: Left foot in surgical dressing MUSCULOSKELETAL: no muscle waisting NEURO: Awake; no lateralizing signs. SKIN: No Rash PSYCH; Flat affect Assessment & Plan Assessment/Plan (1) Acute osteomyelitis of left foot: (2) Cellulitis of left lower limb: (3) Acute electrocardiogram changes: (4) Type 2 diabetes mellitus with foot ulcer: PLAN: Patient is a 51-year-old gentleman with past medical history segment for diabetes mellitus type 2, chronic kidney disease stage IV who presented with left heel and midfoot diabetic ulcer with necrosis of the bone 1, Left lower extremity diabetic ulcer of the left heel and midfoot with necrosis of the bone -Admitted to regular nursing floor started on broad-spectrum antibiotic therapy with consultation placed to both ID as well as podiatry. Patient underwent Debridement of ulcer down to bone with bone biopsy of left calcaneus on 12/27/[address] Rahman -Patient blood and wound cultures are as below. Case discussed with Dr. Nick with infectious disease plan is for patient stay for subsequent evaluation and management. Patient apparently threatening to leave AMA. He was warned about the consequences including loss of limb and possible 12/26/20 18:56 Wound - Left Foot Wound Culture - Final Streptococcus dysgalactiae equ Corynebacterium amycolatum Staphylococcus haemolyticus 12/26/20 17:45 Blood Culture (Wb) - No Site/Description Given Blood Culture - Preliminary Staphylococcus aureus -12/30/2020. Case was discussed with Dr. Nick with infectious disease. Repeat blood cultures ordered. Plan is for patient to undergo PICC line placement need blood cultures, negative and patient be sent home with IV antibiotics given his positive blood cultures ?12/31/2020. Plan is for patient to be discharged home after evaluation by infectious disease. Patient will need wound VAC on discharge. 2. Abnormal EKG changes. -Patient was found to have new T wave inversions. 2D echo ordered as a result demonstrated Normal LV size. Mild concentric left ventricular hypertrophy. Left ventricular systolic function is normal. The estimated ejection fraction is 55 %. Stage 1 diastolic dysfunction. 3. CKD stage IV -Appears that serum creatinine at baseline is 2.4-2.6 4. Diabetes mellitus type II uncontrolled with hemoglobin A1c of 10.3 ?Continue patient home regimen with Accu-Cheks before meals and at bedtime with sliding scale coverage. Patient was counseled on the need to be compliant with his diabetic therapy 5. Hypertension - Blood pressure controlled, home medications continued with dose adjustment as needed Dyslipidemia -Patient is on statin therapy, continued at home dose 7. Coronary artery disease -per history 8. Obesity with BMI of 38.5 ?Weight loss advised 9. DVT prophylaxis ?SC heparin
[2020-12-31] MEDS: Aspirin 81 MG TAB.CHEW PO (08:55)
[2020-12-31] MEDS: Isosorbide Mononitrate 60 MG Tablet PO (08:55)
[2020-12-31] MEDS: Furosemide 40 MG Tablet PO (08:56)
[2020-12-31] MEDS: Losartan Potassium 25 MG Tablet PO (08:56)
[2020-12-31] MEDS: amLODIPine 5 MG Tablet PO (08:57)
[2020-12-31] MEDS: Metoprolol(XL)Succ 100 MG Tablet PO (08:58)
[2020-12-31] MEDS: hydrALAZINE 25 MG Tablet PO (09:04)
[2020-12-31] MEDS: hydrALAZINE 50 MG Tablet PO (09:05)
--- NOTE | 2020-12-31 10:57 | PCM.DC.SUM ---
Providers Date of Admission: 12/26/20 Primary Care Physician: Dr. Joseph Ricks MD Consultations 12/26/20 20:12 Consult: Podiatry Routine Consulting Provider: Jimy Rahman Reason for Consult: Left foot infection EMERGENT Consult: No MD Notified: Yes Date Notified: 12/26/20 Time Notified: 20:15 Method of Notification: Text 12/28/20 06:23 Consult: Onc/Wound/cardiovascular physician assistant Routine Comment: Reason for Consult:: left heel wound 12/28/20 08:09 Consult: Infectious Disease Routine Consulting Provider: Cliff Nick Reason for Consult: calcaneal osteomyelitis left EMERGENT Consult: No Notified: Yes Date Notified: 12/28/20 Time Notified: 08:10 Method of Notification: Answering Service Comments:: left message @ office Reason For Visit: LEFT FOOT INFECTION Diagnosis Discharge Diagnosis (1) Acute osteomyelitis of left foot: Status: Acute Code(s): M86.172 - Other acute osteomyelitis, left ankle and foot (2) Cellulitis of left lower limb: Status: Acute Code(s): L03.116 - Cellulitis of left lower limb (3) Acute electrocardiogram changes: Status: Acute Code(s): R94.31 - Abnormal electrocardiogram [ECG] [EKG] (4) Type 2 diabetes mellitus with foot ulcer: Status: Acute Code(s): E11.621 - Type 2 diabetes mellitus with foot ulcer; L97.509 - Non-pressure chronic ulcer of other part of unspecified foot with unspecified severity Medications at Discharge Home Medications Mag-Ox 400 1 tab PO DAILY 09/28/14 aspirin 81 mg PO DAILY@0800 09/28/14 nitroglycerin 0.4 mg sublingual tablet 0.4 mg SUBLINGUAL Q5-15M PRN 04/20/17 atorvastatin 80 mg PO QHS 12/20/18 clopidogrel 75 mg PO DAILY #90 tab 12/25/18 glimepiride 2 mg tablet 2 mg PO QAM #90 tab 03/11/19 hydralazine 25 mg tablet 25 mg PO .COMPLEX #90 tab 09/08/19 hydralazine 50 mg tablet 50 mg PO .COMPLEX #90 tab 09/08/19 furosemide 40 mg tablet 40 mg PO .COMPLEX #240 tab 11/18/19 amlodipine 5 mg tablet 5 mg PO DAILY #90 tab 02/16/20 Trulicity 0.75 mg SUBCUT TH 08/21/20 insulin glargine 15 unit SC DAILY #0 ml 08/26/20 isosorbide mononitrate 60 mg tablet,extended release 24 hr 60 mg PO DAILY #90 tab 10/25/20 losartan 25 mg tablet 25 mg PO DAILY #90 tab 10/25/20 metoprolol succinate 100 mg tablet,extended release 24 hr 100 mg PO DAILY #90 tab 10/25/20 amoxicillin-pot clavulanate [Augmentin] 1 tab PO Q12H #30 tab 12/29/20 linezolid 600 mg PO Q12H 14 Days #28 tab 12/29/20 Hospital Course Summary of Care Provided Minutes Spent on Discharge: 50 Hospital Course: Patient is a 51-year-old gentleman with past medical history segment for diabetes mellitus type 2, chronic kidney disease stage IV who presented with left heel and midfoot diabetic ulcer with necrosis of the bone 1, Left lower extremity diabetic ulcer of the left heel and midfoot with necrosis of the bone -Admitted to regular nursing floor started on broad-spectrum antibiotic therapy with consultation placed to both ID as well as podiatry. Patient underwent Debridement of ulcer down to bone with bone biopsy of left calcaneus on 12/27/[address] Rahman -Patient blood and wound cultures are as below. Case discussed with Dr. Nick with infectious disease plan is for patient stay for subsequent evaluation and management. Patient apparently threatening to leave AMA. He was warned about the consequences including loss of limb and possible 12/26/20 18:56 Wound - Left Foot Wound Culture - Final Streptococcus dysgalactiae equ Corynebacterium amycolatum Staphylococcus haemolyticus 12/26/20 17:45 Blood Culture (Wb) - No Site/Description Given Blood Culture - Preliminary Staphylococcus aureus -12/30/2020. Case was discussed with Dr. Nick with infectious disease. Repeat blood cultures ordered. Plan is for patient to undergo PICC line placement need blood cultures, negative and patient be sent home with IV antibiotics given his positive blood cultures -Patient blood cultures have remained negative at the time of discharge. Patient was discharged home on Augmentin and linezolid 2. Abnormal EKG changes. -Patient was found to have new T wave inversions. 2D echo ordered as a result demonstrated Normal LV size. Mild concentric left ventricular hypertrophy. Left ventricular systolic function is normal. The estimated ejection fraction is 55 %. Stage 1 diastolic dysfunction. 3. CKD stage IV -Appears that serum creatinine at baseline is 2.4-2.6 4. Diabetes mellitus type II uncontrolled with hemoglobin A1c of 10.3 ?Continue patient home regimen with Accu-Cheks before meals and at bedtime with sliding scale coverage. Patient was counseled on the need to be compliant with his diabetic therapy 5. Hypertension - Blood pressure controlled, home medications continued with dose adjustment as needed Dyslipidemia -Patient is on statin therapy, continued at home dose 7. Coronary artery disease -per history 8. Obesity with BMI of 38.5 ?Weight loss advised 9. DVT prophylaxis ?SC heparin Physical Exam Narrative GENERAL: cooperative HEENT: Atraumatic; EYES; Anicteric, Normal Conjunctiva NECK; supple, normal thyroid, RESPIRATORY: Diminished to auscultation CARDIOVASCULAR: Regular S1 S2, GI: soft, normoactive bowel sounds, : No Renal angle tenderness; EXTREMITIES: Left foot in surgical dressing MUSCULOSKELETAL: no muscle waisting NEURO: Awake; no lateralizing signs. SKIN: No Rash PSYCH; Flat affect Weight / BMI Weight Weight: 125.2 kg Body Mass Index (BMI) 38.5 ABG / Lab / Microbiology Data Result Diagrams: 12/28/20 06:35 12/28/20 06:35 Laboratory: Laboratory Results - last 24 hr 12/30/20 11:46: POC Glucose 177 H 12/30/20 16:05: POC Glucose 165 H 12/30/20 21:33: Vancomycin Trough 20.8 H 12/30/20 21:39: POC Glucose 235 H 12/31/20 06:25: POC Glucose 161 H Microbiology: Microbiology 12/26/20 18:56 Wound - Left Foot Gram Stain - Final 12/26/20 18:56 Wound - Left Foot Wound Culture - Final Streptococcus dysgalactiae equ Corynebacterium amycolatum Staphylococcus haemolyticus 12/26/20 18:56 Wound - Left Foot Anaerobic Culture - Preliminary Checking for anaerobes, further studies to follow. 12/27/20 14:56 Bone - Left Foot Gram Stain - Final 12/27/20 14:56 Bone - Left Foot Wound Culture - Final No growth aerobically. 12/27/20 14:56 Bone - Left Foot Anaerobic Culture - Preliminary No growth in 48 hours. 12/27/20 14:56 Tissue - Left Foot Gram Stain - Final 12/27/20 14:56 Tissue - Left Foot Wound Culture - Final Meth. resistant Staph. aureus Corynebacterium amycolatum 12/27/20 14:56 Tissue - Left Foot Anaerobic Culture - Final No anaerobic bacteria isolated. 12/26/20 17:45 Blood Culture (Wb) - No Site/Description Given Blood Culture - Preliminary Meth. resistant Staph. aureus 12/26/20 18:56 Blood Culture (Wb) - Left Wrist Blood Culture - Preliminary No growth in 48 hours. 12/26/20 21:05 Nasal Secretion SARS-CoV-2 Antigen (Rapid) - Final D/C Instructions Discharge Diet: 1800 Calorie Control Diet Discharge Activity: Return to Normal Activity Call your doctor if you observe: Fever of 101 or Higher, Shortness of breath, Fainting spells and Chest pain Meaningful Use Info Meaningful Use Diagnoses (Choose all that apply): None applicable Discharge Plan Admission Admit Date/Time: 12/26/20 19:03 Attending Provider: Rickie Ugarte Primary Care Provider: Joseph Ricks Consulting Providers: Jimy Rahman ; Cliff Nick Instructions Additional Instructions / Restrictions: Right foot wash daily with soap and water. To apply hydrogel to hallux amputation site ulceration covered by dry sterile dressing. This to be changed daily. Left foot to change wound VAC 3 times a week and to wash with soap and water prior to reapplication. Discharge Orders/Prescriptions Prescriptions: New linezolid 600 mg tablet 600 mg PO Q12H 14 Days Qty: 28 RF: 0 amoxicillin-pot clavulanate [Augmentin] 500-125 mg tablet 1 tab PO Q12H Qty: 30 RF: 0 Continued nitroglycerin 0.4 mg tablet, sublingual 0.4 mg SUBLINGUAL Q5-15M PRN (Reason: Cardiac/Chest Pain) RF: 0 glimepiride 2 mg tablet 2 mg PO QAM Qty: 90 RF: 0 furosemide 40 mg tablet 40 mg PO .COMPLEX Qty: 240 RF: 3 Mag-Ox 400 1 tab PO DAILY RF: 0 aspirin 81 MG tablet,chewable 81 mg PO DAILY@0800 RF: 0 atorvastatin 80 MG tablet 80 mg PO QHS RF: 0 clopidogrel 75 MG tablet 75 mg PO DAILY Qty: 90 RF: 0 Trulicity 0.75 mg/0.5 mL pen injector 0.75 mg SUBCUT TH RF: 0 insulin glargine 100 unit/mL (3 mL) insulin pen 15 unit SC DAILY Qty: 0 RF: 0 hydralazine 50 mg tablet 50 mg PO .COMPLEX Qty: 90 RF: 11 hydralazine 25 mg tablet 25 mg PO .COMPLEX Qty: 90 RF: 11 amlodipine 5 mg tablet 5 mg PO DAILY Qty: 90 RF: 3 metoprolol succinate 100 mg tablet extended release 24 hr 100 mg PO DAILY Qty: 90 RF: 3 isosorbide mononitrate 60 mg tablet extended release 24 hr 60 mg PO DAILY Qty: 90 RF: 3 losartan 25 mg tablet 25 mg PO DAILY Qty: 90 RF: 3 Discontinued amoxicillin-pot clavulanate [Augmentin] 500-125 mg tablet 1 tab PO BID RF: 0 Referrals / Follow Up: Wound Health [Outside] (1 week after discharge) Joseph Ricks MD [Primary Care Provider] - Disposition Disposition (needs filled in before D/C Order can be placed): Home Health Service Charges/Coding Visit Charges Inpatient E&M: 42748 Disch Hosp
--- NOTE | 2020-12-31 12:31 | WOUNDNOTE ---
Had called and talked with the wound center. The nurse states that the wound center has to be the one to initiate the wound VAC that was delivered to the patient's home. Pt will get Dakins moistened gauze dressing changes until the wound VAC can be reapplied by the wound center. Pt states that between himself and his son, the dressing will be able to be changed daily to the left heel until the VAC can be reapplied. VAC was removed and Dakins moistened gauze dressing applied at this time. pt tolerated well.
[2021-01-01 01:20] LABS: Bedside Glucose 186 mg/dL (70-110)
--- NOTE | 2021-01-03 13:25 | CASEMGMT ---
RADHA KISER Discharge Follow-up Phone Call: PITO: 13 Strata: 3 Call Date: 01/03/21 Discharge Date: 12/31/20 Time of Call: 1325 Duration: 5 min Admitting Diagnosis: Left foot infection RADHA KISER completed follow-up phone call after recent hospitalization. Patient states he is doing better. Patient states he has not gotten the wound vac delivered to home yet. Patient states he was able to fill prescriptions without any issues. Patient has follow-up appt with wound center tomorrow. RADHA KISER call wound nurse and clarified wound vac. She states she took a home wound vac to [facility] to be applied tomorrow. RADHA KISER called patient back and updated that wound vac at wound center to be applied tomorrow. Patient voiced understanding and voiced no further questions or concerns.
== END 2020-12-31 13:15 | disposition home health service (06) | DRG 629 ==
LOC: ED 18:54 → MS3 19:38
PROVIDERS: Anesthesiology; Emergency Medicine; Family Medicine; Internal Medicine; Podiatrist; Admitting Provider Hospitalist; Emergency Provider Emergency Medicine; PCP Family Medicine; Visit Provider Internal Medicine
PROC: 0QBM0ZZ Excision of Left Tarsal, Open Approach (ICD-10-PCS; principal; 2020-12-27 07:45)
DX: E11.621 Type 2 diabetes mellitus with foot ulcer (principal); M86.172 Other acute osteomyelitis, left ankle and foot; L03.116 Cellulitis of left lower limb; L97.424 Non-pressure chronic ulcer of left heel and midfoot with necrosis of bone; E11.52 Type 2 diabetes mellitus with diabetic peripheral angiopathy with gangrene; E87.1 Hypo-osmolality and hyponatremia; N18.4 Chronic kidney disease, stage 4 (severe); R94.31 Abnormal electrocardiogram [ECG] [EKG]; D64.9 Anemia, unspecified; E11.22 Type 2 diabetes mellitus with diabetic chronic kidney disease; E11.42 Type 2 diabetes mellitus with diabetic polyneuropathy; E11.65 Type 2 diabetes mellitus with hyperglycemia; E66.9 Obesity, unspecified; E78.5 Hyperlipidemia, unspecified; E11.628 Type 2 diabetes mellitus with other skin complications; E11.69 Type 2 diabetes mellitus with other specified complication; I12.9 Hypertensive chronic kidney disease with stage 1 through stage 4 chronic kidney disease, or unspecified chronic kidney disease; I82.462 Acute embolism and thrombosis of left calf muscular vein; L97.512 Non-pressure chronic ulcer of other part of right foot with fat layer exposed; I25.10 Atherosclerotic heart disease of native coronary artery without angina pectoris; I25.5 Ischemic cardiomyopathy; I87.2 Venous insufficiency (chronic) (peripheral); I25.2 Old myocardial infarction; Z68.38 Body mass index [BMI] 38.0-38.9, adult; Z79.4 Long term (current) use of insulin; Z83.3 Family history of diabetes mellitus; Z89.519 Acquired absence of unspecified leg below knee; Z95.5 Presence of coronary angioplasty implant and graft; Z86.16 Personal history of COVID-19; I51.7 Cardiomegaly; D63.1 Anemia in chronic kidney disease
CPT/HCPCS: 36415; 73630; 73650; 80048; 80202; 82550; 82962; 83036; 83605; 84484; 85025; 85652; 87015; 87040; 87070; 87075; 87077; 87102; 87116; 87176; 87186; 87205; 87206; 87426; 87640; 88304; 88311; 93005; 93306; 93971; 97161; 97166; 99283; J7030; J7040; J7050; Q9957; A4216; C8929; J3490

== ENCOUNTER 2021-01-05 12:54 | Outpatient (RCR) | payer OTHER, SELFPAY ==
[2018-12-25 08:56] VITALS: BMI 37.9
[2020-12-08 00:35] VITALS: BP 162/85; PULSE 70; RESP 16; TEMP 35.9; BMI 37.6
[2021-01-05 13:49] VITALS: BP 129/67; PULSE 67; RESP 18; TEMP 37; BMI 37.6
== END 2021-01-06 23:59 ==
LOC: WC 12:54
PROVIDERS: PCP Family Medicine; Referring Provider Internal Medicine; Visit Provider Podiatrist Foot & Ankle Surgery
DX: L97.519 Non-pressure chronic ulcer of other part of right foot with unspecified severity (principal)
CPT/HCPCS: 97605

== ENCOUNTER 2021-02-02 08:00 | Outpatient (RCR) | payer OTHER, SELFPAY ==
[2018-12-25 08:56] VITALS: BMI 37.9
[2021-01-07 00:27] VITALS: BP 129/67; PULSE 67; RESP 18; TEMP 37; BMI 37.6
[2021-01-07 12:00] VITALS: BP 113/64; PULSE 72; RESP 18; TEMP 36.6; BMI 37.6
[2021-01-12 08:07] VITALS: BP 166/79; PULSE 67; RESP 16; TEMP 35.9; BMI 37.6
--- NOTE | 2021-01-12 10:21 | PCM.WC.PN ---
History of Present Illness Date of Service: 01/12/21 Chief Complaint: Right foot wound History of Wound: Patient is a follow-up for widespread ulcer of left heel and hindfoot. Patient has significant medical history including diabetes, congestive heart failure, hypertension, obesity, venous insufficiency, history of NSTEMI and COVID-19. This patient is continuing wound VAC therapy. He has not been following up as advised. He relates he has been walking on the ulcer and did not try to offload yet. He relates he is scheduled to see infectious disease physician, Dr. Nick next week. He is also scheduled to see his primary care physician next week. He was placed on oral antibiotics and he relates his primary care physician's office called and told him to stop. He denies odor, redness, fever, chill, nausea, vomiting. He relates his blood sugar was 147 mg/dL this morning. Progress of Wound: Stable Objective Data Objective Data Vital Signs: Vital Signs Temp Pulse Resp BP 96.7 F L 67 16 166/79 H 01/12/21 08:07 01/12/21 08:07 01/12/21 08:07 01/12/21 08:07 Oxygen Delivery Method Room Air Weight: 122.47 kg Body Mass Index (BMI) 37.6 Physical Exam Const alert, oriented x3 and no apparent distress Extremity Extremity Narrative: Vascular: CFT is less than 2 seconds all remaining toes without evidence of ischemia with DP and PT palpable bilaterally. Neuro: Significant decrease of epicritic sensation Musculoskeletal: Noted right hallux amputation. Denies pain on palpation of calf. Derm: Left plantar posterior lateral heel ulceration. This probes to deeper muscle tissue today. No further purulent drainage. No malodor. Skin edges are warm. Resolved surrounding erythema and edema noted. Some granular and fibrotic base mixed. adjacent skin is hairless and atrophic. Debridement Note Debridement Note Wound debrided: Left heel Wound Grade/Stage: 3 Type of Debridement: Excisional debridement Anesthesia Used: 4% Lidocaine Solution Depth: in the subcutaneous layer Percentage of wound debrided: 100 Instrument Used: #15 blade Tissue Removed: fibrous, devitalized subcutaneous, biofilm, slough Severity: Fat Layer Exposed Amount of bleeding with debridement: Mild Bleeding Controlled with: Pressure Patient tolerated procedure: Patient tolerated procedure well Post-Debridement Measurements and Additional Note: Post-Debridement Measurements/Treatment WC - Nurse 1 - General Ulcer Assessment Start: 01/07/21 12:00 Freq: Status: Active Protocol: RADHA Activity Type Activity Date Activity User E-Sign Co-Sign Detail Recorded Client Recorded Date Recorded By Document 01/07/21 12:00 RB [id number] 01/07/21 12:02 RB Document 01/12/21 08:07 [facility] [id number] 01/12/21 08:11 BM 01/07/21 01/12/21 12:00 08:07 WC - Today's Visit Information Type of service Follow-up Visit Follow-up Visit (Physician/IN SERVICE COORDINATOR (Physician/IN SERVICE COORDINATOR ) ) Arrival Mode Ambulatory Ambulatory Transfer Assistance None None Patient Identification Verified (Name & Yes Yes ) Patient Requires Transmission-Based No No Precautions Finger Stick Blood Sugar(mg/dl) (if 146 indicated): Blood Sugar Stated by Patient Height and Weight Body Mass Index (BMI) 37.6 37.6 BMI Classification Obese Obese Vital Signs Temperature (97.8 F-99.1 F) 97.8 F 96.7 F L Temperature Source Temporal Temporal Pulse Rate (60-100) 72 67 Pulse Location Monitor Monitor Respiratory Rate (12-18) 18 16 Respiratory rate source Observation Observation Oxygen Delivery Method Room Air Blood Pressure (90/60-120/80) 113/64 166/79 H Blood Pressure Mean (mm Hg) 80 108 Source Monitor Monitor Position Semi-Fowlers Sitting Blood Pressure Location Left Arm Right Arm History Since Last Visit- (Skip if this is Patient's initial visit) Have you changed medications since your No No last visit? Any new allergies or adverse reactions No No Had a fall/change in ADL's that may No No increase risk of falls Signs or symptoms of abuse and/or No No neglect since last visit Have you been in the hospital since your No No last visit? Has dressing in place as prescribed Yes Yes Has compression in place as prescribed Yes Yes Has offloadiing in place as prescribed No N/A Experienced any changes in pain level or No No management Pain Scale: 0-10 Numeric Is Patient Pain Free? Yes - Nurse 1 - General Ulcer Measurement Start: 01/07/21 12:00 Freq: Status: Active Protocol: Activity Type Activity Date Activity User E-Sign Co-Sign Detail Recorded Client Recorded Date Recorded By Document 01/07/21 12:00 RB [id number] 01/07/21 12:02 RB Document 01/12/21 08:07 [facility] [id number] 01/12/21 08:11 [facility] 01/07/21 01/12/21 12:00 08:07 Wound Center Nurse 1 L heel -Combined with other wound No -Current Size (cm) - Length 7 -Current Size (cm) - Width 4.1 -Current Size (cm) - Depth 1.8 -Total Square Cm 28.7 -Photo Taken No -Epithelialization None Present -Tunneling No -Undermining/Tunneling No -Circular Undermining No -Exudate Amt Medium -Exudate Type Serosanguineous -Wound Margin Distinct, Outline Attached -Granulation Amt Medium (34-66%) Medium (34-66%) -Granulation Quality [place] Red -Slough/Fibrin Yes Yes -Necrosis Amt Medium (34-66%) Large (67-100%) -Necrotic Tissue Type Adherent Slough Adherent Slough -Structure Exposed N/A Bone -Texture (Cathie-wound Skin Appearance) Assessed Assessed, Scarring -Moisture (Cathie-wound Skin Appearance) Maceration Assessed, Maceration -Color (Cathie-wound Skin Appearance) Assessed Assessed,Palor -Temperature (Cathie-wound Skin No Abnormality No Abnormality Appearance) (Pt Warm) (Pt Warm) -Tenderness on Palpation (Cathie-wound No No Skin Appearance) -Ulcer Cleansing Wound Cleanser Soap and Water -Foul Odor after Cleansing No Yes, Due to Product Use -Anesthetic Used 4% Lidocaine Solution Lower Limb Edema Present Yes Left Calf (cm) 43.5 Left Ankle (cm) 27.5 WC - Nurse 2 - General Ulcer CM Notes Start: 01/07/21 12:00 Freq: Status: Active Protocol: Activity Type Activity Date Activity User E-Sign Co-Sign Detail Recorded Client Recorded Date Recorded By Document 01/12/21 08:22 JF [id number] 01/12/21 08:29 JF 01/12/21 08:22 Wound Center Nurse 2 L heel -Time 08:23 -Correct Patient Yes -Correct Side, Site, Position Yes -Correct Procedure Yes -Procedure Performed Yes -Type of Procedure Debridement -Clinical Debridement Subcutaneous -Tissue Removed Subcutaneous -Post Debridement (cm) - Length 7 -Post Debridement (cm) - Width 4.2 -Post Debridement (cm) - Depth 0.8 -Total Square (Post) (cm) 29.4 -Area of Debridement (cm) - Length 7 -Area of Debridement (cm) - Width 4.2 -Total Square (Area) (cm) 29.4 -Tunneling No -Undermining/Tunneling No -Circular Undermining No -Wound/Ulcer Outcome Not Healed -Ulcer Cleansing Rinsed/ Irrigated with Saline -Foul Odor after Cleansing No -Bioengineered Tissue No -Bleeding Controlled with Pressure -Offloading Yes -Type of Offloading Surgical Shoe -Treatment Response Procedure Tolerated Well -Debridement - Subq, 1st 20sq cm Yes -Debridement, SubQ, ea addt'l 20sq cm 1 or part thereof Pain Scale: 0-10 Numeric Is Patient Pain Free? Yes WC - Nurse 3 - General Ulcer D/C NN Start: 01/07/21 12:00 Freq: Status: Active Protocol: Activity Type Activity Date Activity User E-Sign Co-Sign Detail Recorded Client Recorded Date Recorded By Document 01/07/21 12:00 RB [id number] 01/07/21 12:02 RB Document 01/12/21 09:18 RB [id number] 01/12/21 09:18 RB 01/07/21 01/12/21 12:00 09:18 Vital Signs Temperature (97.8 F-99.1 F) 97.8 F Temperature Source Temporal Pulse Rate (60-100) 72 Pulse Location Monitor Respiratory Rate (12-18) 18 Respiratory rate source Observation Blood Pressure (90/60-120/80) 113/64 Blood Pressure Mean (mm Hg) 80 Source Monitor Position Semi-Fowlers Blood Pressure Location Left Arm Pain Scale: 0-10 Numeric Is Patient Pain Free? Yes Wound Care Nurse 3 L heel -Ulcer Cleansing Wound Cleanser -Negative Pressure Wound Therapy Continue Continue -Setting (mmHg) 150 150 -Negative Pressure is Continuous Continuous -Other Dressing abd under tubing, doc -NPWT Application Charge NPWT </= 50 sq NPWT </= 50 sq cm ($) cm ($) Treatment Response Procedure Procedure Tolerated Well Tolerated Well WC - Visit Discharge Discharge Condition Stable Stable Ambulatory Status Ambulatory Ambulatory Transportation Private Auto Private Auto Medication Reconcilliation completed & No No provided to patient/care provider Clinical Summary of Care Provided Yes Yes Notes: doc Assessment/Plan Assessment/Plan (1) Chronic ulcer of right foot with fat layer exposed: CODE(S): L97.512 - Non-pressure chronic ulcer of other part of right foot with fat layer exposed (2) Osteomyelitis: CODE(S): M86.9 - Osteomyelitis, unspecified QUALIFIERS: Osteomyelitis type: other acute Osteomyelitis location: foot Laterality: right Qualified Code(s): M86.171 - Other acute osteomyelitis, right ankle and foot (3) Uncontrolled diabetes mellitus: CODE(S): E11.65 - Type 2 diabetes mellitus with hyperglycemia QUALIFIERS: Diabetes mellitus type: other specified (including IZABELA) Glycemic state: with hyperglycemia Qualified Code(s): E13.65 - Other specified diabetes mellitus with hyperglycemia (4) Chronic kidney disease: CODE(S): N18.9 - Chronic kidney disease, unspecified QUALIFIERS: Chronic kidney disease stage: stage 3 (moderate) Chronic kidney disease stage 3 subtype: stage 3b (GFR 30-44) Qualified Code(s): N18.32 - Chronic kidney disease, stage 3b (5) Venous insufficiency: CODE(S): I87.2 - Venous insufficiency (chronic) (peripheral) PLAN: This patient was seen and examined. Debridement was performed as noted in the clinical nursing panel. Patient is status post left plantar lateral heel debridement with bone biopsy by Dr. Rahman on 12/27/2020. Site is looking much better without any worsening infection noted. Per chart review, this wound was previously noted to go down to bone and a bone biopsy was obtained on 12-27-20. This is reviewed today and was negative for osteomyelitis. The microbiology results from that same biopsy demonstrated MRSA and corynebacterium growth. His most up-to-date blood culture from 12-30-20 is negative. He has been previously managed by infectious disease in the recent setting and is going to complete an additional 2 weeks of linezolid and Augmentin once he was discharged in which it looks like he has completed that. He was also previously managed with IV antibiotics during his last hospital admission. To follow-up with Dr. Nick next week as scheduled. To continue wound VAC (150 mmHg continuous); 3 times per week. To wash with antibacterial soap and water during each change. Reviewed the patient discussed importance of smoking cessation, blood sugar control, weight management, offloading, proper nutrition, infection control and hygiene to optimize healing potential. It is noted that patient's hemoglobin A1c is 10.3% on 12/27/2020. His other updated diagnostic data was reviewed from 12/26 with ESR 34, 12/27 with hemoglobin A1c as noted, 12/28 with white blood cell count 10.1, creatinine 2.18 and creatinine clearance 42.22. We discussed the importance of offloading. He was advised to use a walker and to toe-touch for balance if needed. To reduce overall activity. The importance of this part of the wound healing plan was discussed in length today. To follow-up in clinic next week with Dr. Montanez. Note: [employer] speech recognition english division chair software was used to create portions of this document. Sound-alike and misspelled words, as well as other english division chair errors may be contained in the documentation. The medical decision making level is moderate based on data including at least three of the following: review of prior external notes, review of a test, ordering a test, assessment requiring an independent historian. The medical decision making level is moderate. There is noted moderate risk of morbidity after considering this treatment plan and diagnostic data. Considerations were given to prescription management, decisions regarding surgical options, or social determinants of health.
[2021-01-14 11:28] VITALS: TEMP 36; BMI 37.6
[2021-01-18 08:03] VITALS: BP 153/68; PULSE 80; RESP 18; TEMP 36.3; BMI 37.6
--- NOTE | 2021-01-18 08:50 | PCM.WC.PN ---
History of Present Illness Date of Service: 01/18/21 Chief Complaint: Right foot wound History of Wound: Patient is a follow-up for widespread ulcer of left heel and hindfoot. Patient has significant medical history including diabetes, congestive heart failure, hypertension, obesity, venous insufficiency, history of NSTEMI and COVID-19. This patient is continuing wound VAC therapy. He has not been following up as advised. He relates he has been walking on the ulcer and did not try to offload yet. He relates he is scheduled to see infectious disease physician, Dr. Nick next week. He is also scheduled to see his primary care physician next week. He was placed on oral antibiotics and he relates his primary care physician's office called and told him to stop. He has since restarted them with the blessing of his primary care provider. He denies odor, redness, fever, chill, nausea, vomiting. He relates his blood sugar was 147 mg/dL this morning. Progress of Wound: Stable Subjective Subjective Patient seen and examined resting comfortably. Patient denies any new pedal complaints. Patient denies any nausea, fever, chills, chest pain, shortness of breath, cough, streaking, purulence, vomiting. Patient relates that he is restarted taking the antibiotics as prescribed but he stopped for a while for concerns about his kidneys Objective Data Objective Data Vital Signs: Vital Signs Temp Pulse Resp BP 97.3 F L 80 18 153/68 H 01/18/21 08:03 01/18/21 08:03 01/18/21 08:03 01/18/21 08:03 Oxygen Delivery Method Room Air Weight: 122.47 kg Body Mass Index (BMI) 37.6 Physical Exam Extremity Extremity Narrative: Vascular: CFT is less than 2 seconds all remaining toes without evidence of ischemia with DP and PT palpable bilaterally. Neuro: Significant decrease of epicritic sensation Musculoskeletal: Noted right hallux amputation. Denies pain on palpation of calf. Derm: Left plantar posterior lateral heel ulceration. This probes to bone and small area today but there is more bony coverage than when I saw him last in the hospital. No further purulent drainage. No malodor. Skin edges are warm. Resolved surrounding erythema and edema noted. Some granular and fibrotic base mixed. adjacent skin is hairless and atrophic. Plantar fat pad is exposed with some graying noted to the edges. There is some dry peeling skin noted periwound. Ecchymosis noted periwound at previous nurses visit has resolved. Debridement Note Debridement Note Wound debrided: Plantar lateral heel Laterality: Left Wound Grade/Stage: Contreras 3 Type of Debridement: Excisional debridement Anesthesia Used: 4% Lidocaine Solution Depth: to bone (Debrided to muscle) Percentage of wound debrided: 100 Instrument Used: #15 blade and Forceps Tissue Removed: includes fibrous, devitalized, biofilm, callus and slough tissue Severity: Necrosis of Bone Amount of bleeding with debridement: Mild Bleeding Controlled with: Pressure Patient tolerated procedure: Patient tolerated procedure well Post-Debridement Measurements and Additional Note: Post-Debridement Measurements/Treatment - Nurse 1 - General Ulcer Assessment Start: 01/07/21 12:00 Freq: Status: Active Protocol: RADHA Activity Type Activity Date Activity User E-Sign Co-Sign Detail Recorded Client Recorded Date Recorded By Document 01/07/21 12:00 RB [id number] 01/07/21 12:02 RB Document 01/12/21 08:07 BM [id number] 01/12/21 08:11 BM Document 01/14/21 11:28 [id number] 01/14/21 11:31 JF Document 01/18/21 08:03 MW Desktop 01/18/21 08:06 MW 01/07/21 01/12/21 01/14/21 12:00 08:07 11:28 - Today's Visit Information Type of service Follow-up Visit Follow-up Visit Nurse-only (Physician/SPEEDBOAT DRIVER (Physician/SPEEDBOAT DRIVER Visit ) ) Arrival Mode Ambulatory Ambulatory Ambulatory Transfer Assistance None None Accompanied by Patient Identification Verified (Name & Yes Yes ) Patient Requires Transmission-Based No No No Precautions Safety Precautions Finger Stick Blood Sugar(mg/dl) (if 146 indicated): Blood Sugar Stated by Patient Height and Weight Body Mass Index (BMI) 37.6 37.6 37.6 BMI Classification Obese Obese Obese Vital Signs Temperature (97.8 F-99.1 F) 97.8 F 96.7 F L 96.8 F L Temperature Source Temporal Temporal Temporal Pulse Rate (60-100) 72 67 Pulse Location Monitor Monitor Respiratory Rate (12-18) 18 16 Respiratory rate source Observation Observation Oxygen Delivery Method Room Air Blood Pressure (90/60-120/80) 113/64 166/79 H Blood Pressure Mean (mm Hg) 80 108 Source Monitor Monitor Position Semi-Fowlers Sitting Blood Pressure Location Left Arm Right Arm History Since Last Visit- (Skip if this is Patient's initial visit) Have you changed medications since your No No last visit? Any new allergies or adverse reactions No No Had a fall/change in ADL's that may No No increase risk of falls Signs or symptoms of abuse and/or No No neglect since last visit Have you been in the hospital since your No No last visit? Has dressing in place as prescribed Yes Yes Has compression in place as prescribed Yes Yes Has offloadiing in place as prescribed No N/A Experienced any changes in pain level or No No management Left Footwear Regular Shoe Right Footwear Regular Shoe Pain Scale: 0-10 Numeric Is Patient Pain Free? Yes Yes 01/18/21 08:03 WC - Today's Visit Information Type of service Follow-up Visit (Physician/SPEEDBOAT DRIVER ) Arrival Mode Ambulatory Transfer Assistance None Accompanied by self Patient Identification Verified (Name & Yes ) Patient Requires Transmission-Based No Precautions Safety Precautions NA Finger Stick Blood Sugar(mg/dl) (if 134 indicated): Blood Sugar Stated by Patient Height and Weight Body Mass Index (BMI) 37.6 BMI Classification Obese Vital Signs Temperature (97.8 F-99.1 F) 97.3 F L Temperature Source Temporal Pulse Rate (60-100) 80 Pulse Location Monitor Respiratory Rate (12-18) 18 Respiratory rate source Observation Oxygen Delivery Method Room Air Blood Pressure (90/60-120/80) 153/68 H Blood Pressure Mean (mm Hg) 96 Source Monitor Position Sitting Blood Pressure Location Right Arm History Since Last Visit- (Skip if this is Patient's initial visit) Have you changed medications since your No last visit? Any new allergies or adverse reactions No Had a fall/change in ADL's that may No increase risk of falls Signs or symptoms of abuse and/or No neglect since last visit Have you been in the hospital since your No last visit? Has dressing in place as prescribed No Has compression in place as prescribed Yes Has offloadiing in place as prescribed N/A Experienced any changes in pain level or No management Left Footwear Regular Shoe Right Footwear Regular Shoe Pain Scale: 0-10 Numeric Is Patient Pain Free? Yes - Nurse 1 - General Ulcer Measurement Start: 01/07/21 12:00 Freq: Status: Active Protocol: Activity Type Activity Date Activity User E-Sign Co-Sign Detail Recorded Client Recorded Date Recorded By Document 01/07/21 12:00 RB [id number] 01/07/21 12:02 RB Document 01/12/21 08:07 [facility] [id number] 01/12/21 08:11 BM Document 01/18/21 08:03 MW Desktop 01/18/21 08:06 MW 01/07/21 01/12/21 01/18/21 12:00 08:07 08:03 Wound Center Nurse 1 L heel -Combined with other wound No No -Current Size (cm) - Length 7 7.5 -Current Size (cm) - Width 4.1 3.8 -Current Size (cm) - Depth 1.8 2.6 -Total Square Cm 28.7 28.50 -Photo Taken No No -Epithelialization None Present None Present -Tunneling No No -Undermining/Tunneling No No -Circular Undermining No No -Exudate Amt Medium Large -Exudate Type Serosanguineous Serosanguineous -Wound Margin Distinct, Thickened Outline Attached -Granulation Amt Medium (34-66%) Medium (34-66%) Small (1-33%) -Granulation Quality Prosperity Red Prosperity -Slough/Fibrin Yes Yes Yes -Necrosis Amt Medium (34-66%) Large (67-100%) Large (67-100%) -Necrotic Tissue Type Adherent Slough Adherent Slough Adherent Slough -Structure Exposed N/A Bone N/A -Texture (Cathie-wound Skin Appearance) Assessed Assessed, Assessed, Scarring Scarring -Moisture (Cathie-wound Skin Appearance) Maceration Assessed, Assessed, Maceration Maceration -Color (Cathie-wound Skin Appearance) Assessed Assessed,Palor No Abnormality, Assessed -Temperature (Cathie-wound Skin No Abnormality No Abnormality No Abnormality Appearance) (Pt Warm) (Pt Warm) (Pt Warm) -Tenderness on Palpation (Cathie-wound No No No Skin Appearance) -Ulcer Cleansing Wound Cleanser Soap and Water Soap and Water -Foul Odor after Cleansing No Yes, Due to No Product Use -Anesthetic Used 4% Lidocaine 4% Lidocaine Solution Solution Lower Limb Edema Present Yes Yes Left Calf (cm) 43.5 40.2 Left Ankle (cm) 27.5 27.8 WC - Nurse 2 - General Ulcer CM Notes Start: 01/07/21 12:00 Freq: Status: Active Protocol: Activity Type Activity Date Activity User E-Sign Co-Sign Detail Recorded Client Recorded Date Recorded By Document 01/12/21 08:22 JF [id number] 01/12/21 08:29 JF Document 01/18/21 08:17 JF [id number] 01/18/21 08:22 JF 01/12/21 01/18/21 08:22 08:17 Wound Center Nurse 2 L heel -Time 08:23 08:17 -Correct Patient Yes Yes -Correct Side, Site, Position Yes Yes -Correct Procedure Yes Yes -Procedure Performed Yes Yes -Type of Procedure Debridement Debridement -Clinical Debridement Subcutaneous Muscle / Fascia -Tissue Removed Subcutaneous Muscle -Post Debridement (cm) - Length 7 4 -Post Debridement (cm) - Width 4.2 7 -Post Debridement (cm) - Depth 0.8 2.1 -Total Square (Post) (cm) 29.4 28 -Area of Debridement (cm) - Length 7 4 -Area of Debridement (cm) - Width 4.2 7 -Total Square (Area) (cm) 29.4 28 -Tunneling No No -Undermining/Tunneling No No -Circular Undermining No No -Wound/Ulcer Outcome Not Healed Not Healed -Ulcer Cleansing Rinsed/ Rinsed/ Irrigated with Irrigated with Saline Saline -Foul Odor after Cleansing No No -Bioengineered Tissue No No -Bleeding Controlled with Pressure Pressure -Offloading Yes No -Type of Offloading Surgical Shoe -Treatment Response Procedure Procedure Tolerated Well Tolerated Well -Debridement - Subq, 1st 20sq cm Yes No -Debridement, SubQ, ea addt'l 20sq cm 1 or part thereof -Debridement - Muscle / Fascia, 1st Yes 20sq cm -Debridement, Muscle/Fascia, ea addt'l 1 20sq cm or part thereof Pain Scale: 0-10 Numeric Is Patient Pain Free? Yes Yes WC - Nurse 3 - General Ulcer D/C NN Start: 01/07/21 12:00 Freq: Status: Active Protocol: Activity Type Activity Date Activity User E-Sign Co-Sign Detail Recorded Client Recorded Date Recorded By Document 01/07/21 12:00 RB [id number] 01/07/21 12:02 RB Document 01/12/21 09:18 RB [id number] 01/12/21 09:18 RB Document 01/14/21 11:28 [id number] 01/14/21 11:31 JF Document 01/18/21 08:31 [facility] Desktop 01/18/21 08:32 BM 01/07/21 01/12/21 01/14/21 12:00 09:18 11:28 Vital Signs Temperature (97.8 F-99.1 F) 97.8 F 96.8 F L Temperature Source Temporal Temporal Pulse Rate (60-100) 72 Pulse Location Monitor Respiratory Rate (12-18) 18 Respiratory rate source Observation Blood Pressure (90/60-120/80) 113/64 Blood Pressure Mean (mm Hg) 80 Source Monitor Position Semi-Fowlers Blood Pressure Location Left Arm Pain Scale: 0-10 Numeric Is Patient Pain Free? Yes Yes Wound Care Nurse 3 L heel -Ulcer Cleansing Wound Cleanser Wound Cleanser -Foul Odor after Cleansing No -Negative Pressure Wound Therapy Continue Continue Continue -Setting (mmHg) 150 150 150 -Negative Pressure is Continuous Continuous Continuous -Other Dressing abd under tubing, leonides -NPWT Application Charge NPWT </= 50 sq NPWT </= 50 sq NPWT </= 50 sq cm ($) cm ($) cm ($) Left -Compression Wrap Leonides Wrap Treatment Response Procedure Procedure Tolerated Well Tolerated Well WC - Visit Discharge Discharge Condition Stable Stable Stable Ambulatory Status Ambulatory Ambulatory Ambulatory Transportation Private Auto Private Auto Medication Reconcilliation completed & No No provided to patient/care provider Clinical Summary of Care Provided Yes Yes Notes: leonides Discussed the importance of using his walker to assist in offloading pressure from heel ulcer. Patient arrived today with regular tennis shoes on but no walker. Small amount of bruising noted to cathie-ulcer on plantar portion of ulcer. Discussed this with him so he was made aware. 01/18/21 08:31 Vital Signs Temperature (97.8 F-99.1 F) Temperature Source Pulse Rate (60-100) Pulse Location Respiratory Rate (12-18) Respiratory rate source Blood Pressure (90/60-120/80) Blood Pressure Mean (mm Hg) Source Position Blood Pressure Location Pain Scale: 0-10 Numeric Is Patient Pain Free? Yes Wound Care Nurse 3 L heel -Ulcer Cleansing Rinsed/ Irrigated with Saline -Foul Odor after Cleansing No -Negative Pressure Wound Therapy Continue -Setting (mmHg) 150 -Negative Pressure is Continuous -Other Dressing -NPWT Application Charge NPWT </= 50 sq cm ($) Left -Compression Wrap Leonides Wrap Treatment Response Procedure Tolerated Well WC - Visit Discharge Discharge Condition Stable Ambulatory Status Ambulatory Transportation Private Auto Medication Reconcilliation completed & provided to patient/care provider Clinical Summary of Care Provided Notes: Assessment/Plan Assessment/Plan (1) Chronic ulcer of right foot with necrosis of bone: CODE(S): L97.514 - Non-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 (2) Uncontrolled diabetes mellitus: CODE(S): E11.65 - Type 2 diabetes mellitus with hyperglycemia QUALIFIERS: Diabetes mellitus type: other specified (including IZABELA) Glycemic state: with hyperglycemia Qualified Code(s): E13.65 - Other specified diabetes mellitus with hyperglycemia (3) Chronic kidney disease: CODE(S): N18.9 - Chronic kidney disease, unspecified QUALIFIERS: Chronic kidney disease stage: stage 3 (moderate) Chronic kidney disease stage 3 subtype: stage 3b (GFR 30-44) Qualified Code(s): N18.32 - Chronic kidney disease, stage 3b (4) Venous insufficiency: CODE(S): I87.2 - Venous insufficiency (chronic) (peripheral) PLAN: This patient was seen and examined. Debridement was performed as noted in the clinical nursing panel. Patient is status post left plantar lateral heel debridement with bone biopsy by Dr. Rahman on 12/27/2020. Per chart review, a bone biopsy was obtained on 12-27-20. This is reviewed today and was negative for osteomyelitis. The microbiology results from that same biopsy demonstrated MRSA and corynebacterium growth. His most up-to-date blood culture from 12-30-20 is negative. He has been previously managed by infectious disease in the recent setting and is going to complete an additional 2 weeks of linezolid and Augmentin once he was discharged. He relates that his primary care provider told him to stop taking it if with concerns about his kidneys and then later contacted and told him to resume to that he is still finishing this course of antibiotics. To follow-up with Dr. Nick next week as scheduled. To continue wound VAC (150 mmHg continuous); 2 times per week. Due to restraints with patient concerns and having met [facility] home health care for the year patient has been unable to get home health care to assist with the wound VAC. He does not have anyone at home to teach the skilled to. It was decided patient can come to the wound care center for an additional nurses visit for a total of 2 wound VAC changes per week once nurses visit and once a regular doctors wound care visit. To wash with antibacterial soap and water during each change. Patient is also noted to have Dakin's at home. Discussed if seal is broken or concerned about malodor that he should remove the VAC in place Dakin's wet-to-dry and contact the wound care center for further instructions. Patient understands. Reviewed the patient discussed importance of smoking cessation, blood sugar control, weight management, offloading, proper nutrition, infection control and hygiene to optimize healing potential. It is noted that patient's hemoglobin A1c is 10.3% on 12/27/2020. Patient is noted to be wearing crocs which is not properly offloading the wound. His other updated diagnostic data was reviewed from 12/26 with ESR 34, 12/27 with hemoglobin A1c as noted, 12/28 with white blood cell count 10.1, creatinine 2.18 and creatinine clearance 42.22. We discussed the importance of offloading. He was advised to use a walker and to toe-touch for balance if needed. To reduce overall activity. The importance of this part of the wound healing plan was discussed in length today. Discussed with the patient that if this wound worsens that he is at risk for limb amputation. To follow-up in clinic next week with Dr. Montanez and continue scheduled nurse visits. Note: [employer] speech recognition mount loader software was used to create portions of this document. Sound-alike and misspelled words, as well as other mount loader errors may be contained in the documentation.
[2021-01-25 08:06] VITALS: BP 124/92; PULSE 93; RESP 20; TEMP 35.9; BMI 37.6
--- NOTE | 2021-01-25 08:28 | PCM.WC.PN ---
History of Present Illness Date of Service: 01/25/21 Chief Complaint: Right foot wound History of Wound: Patient is a follow-up for widespread ulcer of left heel and hindfoot. Patient has significant medical history including diabetes, congestive heart failure, hypertension, obesity, venous insufficiency, history of NSTEMI and COVID-19. This patient is continuing wound VAC therapy. He has not been following up as advised. He relates he has been walking on the ulcer and did not try to offload yet. He relates he is scheduled to see infectious disease physician, Dr. Nick next week. He is also scheduled to see his primary care physician next week. He was placed on oral antibiotics and he relates his primary care physician's office called and told him to stop. He has since restarted them with the blessing of his primary care provider. He denies odor, redness, fever, chill, nausea, vomiting. He relates his blood sugar was 147 mg/dL this morning. Progress of Wound: Stable Subjective Subjective Patient seen and examined resting comfortably. Patient denies any new pedal complaints. Patient denies any nausea, fever, chills, chest pain, shortness of breath, cough, streaking, purulence, vomiting. Patient relates that he took off the wound VAC on Sunday due to an increase in smell. He started applying Dakin's wet-to-dry it since then Objective Data Objective Data Vital Signs: Vital Signs Temp Pulse Resp BP 96.6 F L 93 20 H 124/92 H 01/25/21 08:06 01/25/21 08:06 01/25/21 08:06 01/25/21 08:06 Oxygen Delivery Method Room Air Weight: 122.47 kg Body Mass Index (BMI) 37.6 Physical Exam Extremity Extremity Narrative: Vascular: CFT is less than 2 seconds all remaining toes without evidence of ischemia with DP and PT palpable bilaterally. Neuro: Significant decrease of epicritic sensation Musculoskeletal: Noted right hallux amputation. Denies pain on palpation of calf. Derm: Left plantar posterior lateral heel ulceration. This no longer probes to bone. No further purulent drainage. Minimal malodor. Skin edges are warm with surrounding peeling skin noted. Resolved surrounding erythema and edema noted. Some granular and fibrotic base mixed. adjacent skin is hairless and atrophic. Plantar fat pad is exposed with some necrosis noted to the fat. Debridement Note Debridement Note Wound debrided: Plantar lateral heel Laterality: Left Wound Grade/Stage: Contreras 3 Type of Debridement: Excisional debridement Anesthesia Used: 4% Lidocaine Solution Depth: to muscle Percentage of wound debrided: 100 Instrument Used: 5mm curette Tissue Removed: includes fibrous, devitalized, biofilm, callus and slough tissue Severity: Necrosis of Muscle Amount of bleeding with debridement: Mild Bleeding Controlled with: Pressure Patient tolerated procedure: Patient tolerated procedure well Post-Debridement Measurements and Additional Note: Post-Debridement Measurements/Treatment - Nurse 1 - General Ulcer Assessment Start: 01/07/21 12:00 Freq: Status: Active Protocol: [facility] Activity Type Activity Date Activity User E-Sign Co-Sign Detail Recorded Client Recorded Date Recorded By Document 01/07/21 12:00 RB [id number] 01/07/21 12:02 RB Document 01/12/21 08:07 BMF [id number] 01/12/21 08:11 BMF Document 01/14/21 11:28 JF [id number] 01/14/21 11:31 JF Document 01/18/21 08:03 MW Desktop 01/18/21 08:06 MW Document 01/25/21 08:06 DL [id number] 01/25/21 08:10 DL 01/07/21 01/12/21 01/14/21 12:00 08:07 11:28 - Today's Visit Information Type of service Follow-up Visit Follow-up Visit Nurse-only (Physician/WEAPONS AND TACTICS INSTRUCTOR (Physician/WEAPONS AND TACTICS INSTRUCTOR Visit ) ) Arrival Mode Ambulatory Ambulatory Ambulatory Transfer Assistance None None Accompanied by Patient Identification Verified (Name & Yes Yes ) Patient Requires Transmission-Based No No No Precautions Safety Precautions Finger Stick Blood Sugar(mg/dl) (if 146 indicated): Blood Sugar Stated by Patient Height and Weight Body Mass Index (BMI) 37.6 37.6 37.6 BMI Classification Obese Obese Obese Vital Signs Temperature (97.8 F-99.1 F) 97.8 F 96.7 F L 96.8 F L Temperature Source Temporal Temporal Temporal Pulse Rate (60-100) 72 67 Pulse Location Monitor Monitor Respiratory Rate (12-18) 18 16 Respiratory rate source Observation Observation Oxygen Delivery Method Room Air Blood Pressure (90/60-120/80) 113/64 166/79 H Blood Pressure Mean (mm Hg) 80 108 Source Monitor Monitor Position Semi-Fowlers Sitting Blood Pressure Location Left Arm Right Arm History Since Last Visit- (Skip if this is Patient's initial visit) Have you changed medications since your No No last visit? Any new allergies or adverse reactions No No Had a fall/change in ADL's that may No No increase risk of falls Signs or symptoms of abuse and/or No No neglect since last visit Have you been in the hospital since your No No last visit? Has dressing in place as prescribed Yes Yes Has compression in place as prescribed Yes Yes Has offloadiing in place as prescribed No N/A Experienced any changes in pain level or No No management Left Footwear Regular Shoe Right Footwear Regular Shoe Pain Scale: 0-10 Numeric Is Patient Pain Free? Yes Yes 01/18/21 01/25/21 08:03 08:06 WC - Today's Visit Information Type of service Follow-up Visit Follow-up Visit (Physician/WE[employer] AND TACTICS INSTRUCTOR (Physician/WEAPONS AND TACTICS INSTRUCTOR ) ) Arrival Mode Ambulatory Ambulatory Transfer Assistance None Stretcher Accompanied by self Patient Identification Verified (Name & Yes Yes ) Patient Requires Transmission-Based No No Precautions Safety Precautions NA Finger Stick Blood Sugar(mg/dl) (if 134 124 indicated): Blood Sugar Stated by Patient Height and Weight Body Mass Index (BMI) 37.6 37.6 BMI Classification Obese Obese Vital Signs Temperature (97.8 F-99.1 F) 97.3 F L 96.6 F L Temperature Source Temporal Temporal Pulse Rate (60-100) 80 93 Pulse Location Monitor Monitor Respiratory Rate (12-18) 18 20 H Respiratory rate source Observation Observation Oxygen Delivery Method Room Air Blood Pressure (90/60-120/80) 153/68 H 124/92 H Blood Pressure Mean (mm Hg) 96 102 Source Monitor Monitor Position Sitting Blood Pressure Location Right Arm History Since Last Visit- (Skip if this is Patient's initial visit) Have you changed medications since your No No last visit? Any new allergies or adverse reactions No No Had a fall/change in ADL's that may No No increase risk of falls Signs or symptoms of abuse and/or No No neglect since last visit Have you been in the hospital since your No No last visit? Has dressing in place as prescribed No No Has compression in place as prescribed Yes Yes Has offloadiing in place as prescribed N/A Yes Experienced any changes in pain level or No No management Left Footwear Regular Shoe Right Footwear Regular Shoe Pain Scale: 0-10 Numeric Is Patient Pain Free? Yes Yes WC - Nurse 1 - General Ulcer Measurement Start: 01/07/21 12:00 Freq: Status: Active Protocol: Activity Type Activity Date Activity User E-Sign Co-Sign Detail Recorded Client Recorded Date Recorded By Document 01/07/21 12:00 RB [id number] 01/07/21 12:02 RB Document 01/12/21 08:07 BMF [id number] 01/12/21 08:11 BMF Document 01/18/21 08:03 MW Desktop 01/18/21 08:06 MW Document 01/25/21 08:06 DL [id number] 01/25/21 08:10 DL 01/07/21 01/12/21 01/18/21 12:00 08:07 08:03 Wound Center Nurse 1 L heel -Combined with other wound No No -Current Size (cm) - Length 7 7.5 -Current Size (cm) - Width 4.1 3.8 -Current Size (cm) - Depth 1.8 2.6 -Total Square Cm 28.7 28.50 -Photo Taken No No -Epithelialization None Present None Present -Tunneling No No -Undermining/Tunneling No No -Undermining/Tunneling Starts (O'clock ) -Undermining/Tunneling Ends (O'clock) -Maximum Distance #2 (cm) -Circular Undermining No No -Exudate Amt Medium Large -Exudate Type Serosanguineous Serosanguineous -Wound Margin Distinct, Thickened Outline Attached -Granulation Amt Medium (34-66%) Medium (34-66%) Small (1-33%) -Granulation Quality [place] -Slough/Fibrin Yes Yes Yes -Necrosis Amt Medium (34-66%) Large (67-100%) Large (67-100%) -Necrotic Tissue Type Adherent Slough Adherent Slough Adherent Slough -Structure Exposed N/A Bone N/A -Texture (Cathie-wound Skin Appearance) Assessed Assessed, Assessed, Scarring Scarring -Moisture (Cathie-wound Skin Appearance) Maceration Assessed, Assessed, Maceration Maceration -Color (Cathie-wound Skin Appearance) Assessed Assessed,Palor No Abnormality, Assessed -Temperature (Cathie-wound Skin No Abnormality No Abnormality No Abnormality Appearance) (Pt Warm) (Pt Warm) (Pt Warm) -Tenderness on Palpation (Cathie-wound No No No Skin Appearance) -Ulcer Cleansing Wound Cleanser Soap and Water Soap and Water -Foul Odor after Cleansing No Yes, Due to No Product Use -Anesthetic Used 4% Lidocaine 4% Lidocaine Solution Solution Lower Limb Edema Present Yes Yes Left Calf (cm) 43.5 40.2 Left Ankle (cm) 27.5 27.8 01/25/21 08:06 Wound Center Nurse 1 L heel -Combined with other wound -Current Size (cm) - Length 7 -Current Size (cm) - Width 3.5 -Current Size (cm) - Depth 1.6 -Total Square Cm 24.5 -Photo Taken No -Epithelialization -Tunneling -Undermining/Tunneling -Undermining/Tunneling Starts (O'clock 2 ) -Undermining/Tunneling Ends (O'clock) 4 -Maximum Distance #2 (cm) 1.6 -Circular Undermining -Exudate Amt Medium -Exudate Type Serosanguineous -Wound Margin Distinct, Outline Attached -Granulation Amt Small (1-33%) -Granulation Quality [place] -Slough/Fibrin -Necrosis Amt Small (1-33%) -Necrotic Tissue Type Adherent Slough -Structure Exposed N/A -Texture (Cathie-wound Skin Appearance) Callus,Scarring -Moisture (Cathie-wound Skin Appearance) Maceration -Color (Cathie-wound Skin Appearance) Erythema -Temperature (Cathie-wound Skin No Abnormality Appearance) (Pt Warm) -Tenderness on Palpation (Cathie-wound Skin Appearance) -Ulcer Cleansing Soap and Water -Foul Odor after Cleansing Yes -Anesthetic Used 4% Lidocaine Solution Lower Limb Edema Present Left Calf (cm) Left Ankle (cm) WC - Nurse 2 - General Ulcer CM Notes Start: 01/07/21 12:00 Freq: Status: Active Protocol: Activity Type Activity Date Activity User E-Sign Co-Sign Detail Recorded Client Recorded Date Recorded By Document 01/12/21 08:22 HEATHER [id number] 01/12/21 08:29 JF Document 01/18/21 08:17 JF [id number] 01/18/21 08:22 JF Document 01/25/21 08:22 JF [id number] 01/25/21 08:26 JF 01/12/21 01/18/21 01/25/21 08:22 08:17 08:22 Wound Center Nurse 2 L heel -Time 08:23 08:17 08:23 -Correct Patient Yes Yes Yes -Correct Side, Site, Position Yes Yes Yes -Correct Procedure Yes Yes Yes -Procedure Performed Yes Yes Yes -Type of Procedure Debridement Debridement Debridement -Clinical Debridement Subcutaneous Muscle / Fascia Muscle / Fascia -Tissue Removed Subcutaneous Muscle Muscle -Post Debridement (cm) - Length 7 4 5 -Post Debridement (cm) - Width 4.2 7 3.5 -Post Debridement (cm) - Depth 0.8 2.1 2 -Total Square (Post) (cm) 29.4 28 17.5 -Area of Debridement (cm) - Length 7 4 5 -Area of Debridement (cm) - Width 4.2 7 3.5 -Total Square (Area) (cm) 29.4 28 17.5 -Tunneling No No No -Undermining/Tunneling No No No -Circular Undermining No No No -Wound/Ulcer Outcome Not Healed Not Healed Not Healed -Ulcer Cleansing Rinsed/ Rinsed/ Rinsed/ Irrigated with Irrigated with Irrigated with Saline Saline Saline -Foul Odor after Cleansing No No No -Bioengineered Tissue No No No -Bleeding Controlled with Pressure Pressure Pressure -Offloading Yes No No -Type of Offloading Surgical Shoe -Treatment Response Procedure Procedure Procedure Tolerated Well Tolerated Well Tolerated Well -Debridement - Subq, 1st 20sq cm Yes No -Debridement, SubQ, ea addt'l 20sq cm 1 or part thereof -Debridement - Muscle / Fascia, 1st Yes Yes 20sq cm -Debridement, Muscle/Fascia, ea addt'l 1 20sq cm or part thereof Pain Scale: 0-10 Numeric Is Patient Pain Free? Yes Yes Yes - Nurse 3 - General Ulcer D/C NN Start: 01/07/21 12:00 Freq: Status: Active Protocol: Activity Type Activity Date Activity User E-Sign Co-Sign Detail Recorded Client Recorded Date Recorded By Document 01/07/21 12:00 RB [id number] 01/07/21 12:02 RB Document 01/12/21 09:18 RB [id number] 01/12/21 09:18 RB Document 01/14/21 11:28 JF [id number] 01/14/21 11:31 JF Document 01/18/21 08:31 BMF Desktop 01/18/21 08:32 BMF 01/07/21 01/12/21 01/14/21 12:00 09:18 11:28 Vital Signs Temperature (97.8 F-99.1 F) 97.8 F 96.8 F L Temperature Source Temporal Temporal Pulse Rate (60-100) 72 Pulse Location Monitor Respiratory Rate (12-18) 18 Respiratory rate source Observation Blood Pressure (90/60-120/80) 113/64 Blood Pressure Mean (mm Hg) 80 Source Monitor Position Semi-Fowlers Blood Pressure Location Left Arm Pain Scale: 0-10 Numeric Is Patient Pain Free? Yes Yes Wound Care Nurse 3 L heel -Ulcer Cleansing Wound Cleanser Wound Cleanser -Foul Odor after Cleansing No -Negative Pressure Wound Therapy Continue Continue Continue -Setting (mmHg) 150 150 150 -Negative Pressure is Continuous Continuous Continuous -Other Dressing abd under tubing, leonides -NPWT Application Charge NPWT </= 50 sq NPWT </= 50 sq NPWT </= 50 sq cm ($) cm ($) cm ($) Left -Compression Wrap Leonides Wrap Treatment Response Procedure Procedure Tolerated Well Tolerated Well WC - Visit Discharge Discharge Condition Stable Stable Stable Ambulatory Status Ambulatory Ambulatory Ambulatory Transportation Private Auto Private Auto Medication Reconcilliation completed & No No provided to patient/care provider Clinical Summary of Care Provided Yes Yes Notes: leonides Discussed the importance of using his walker to assist in offloading pressure from heel ulcer. Patient arrived today with regular tennis shoes on but no walker. Small amount of bruising noted to cathie-ulcer on plantar portion of ulcer. Discussed this with him so he was made aware. 01/18/21 08:31 Vital Signs Temperature (97.8 F-99.1 F) Temperature Source Pulse Rate (60-100) Pulse Location Respiratory Rate (12-18) Respiratory rate source Blood Pressure (90/60-120/80) Blood Pressure Mean (mm Hg) Source Position Blood Pressure Location Pain Scale: 0-10 Numeric Is Patient Pain Free? Yes Wound Care Nurse 3 L heel -Ulcer Cleansing Rinsed/ Irrigated with Saline -Foul Odor after Cleansing No -Negative Pressure Wound Therapy Continue -Setting (mmHg) 150 -Negative Pressure is Continuous -Other Dressing -NPWT Application Charge NPWT </= 50 sq cm ($) Left -Compression Wrap Leonides Wrap Treatment Response Procedure Tolerated Well WC - Visit Discharge Discharge Condition Stable Ambulatory Status Ambulatory Transportation Private Auto Medication Reconcilliation completed & provided to patient/care provider Clinical Summary of Care Provided Notes: Assessment/Plan Assessment/Plan (1) Chronic ulcer of right foot with necrosis of bone: CODE(S): L97.514 - Non-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 (2) Uncontrolled diabetes mellitus: CODE(S): E11.65 - Type 2 diabetes mellitus with hyperglycemia QUALIFIERS: Diabetes mellitus type: other specified (including IZABELA) Glycemic state: with hyperglycemia Qualified Code(s): E13.65 - Other specified diabetes mellitus with hyperglycemia (3) Chronic kidney disease: CODE(S): N18.9 - Chronic kidney disease, unspecified QUALIFIERS: Chronic kidney disease stage: stage 3 (moderate) Chronic kidney disease stage 3 subtype: stage 3b (GFR 30-44) Qualified Code(s): N18.32 - Chronic kidney disease, stage 3b (4) Venous insufficiency: CODE(S): I87.2 - Venous insufficiency (chronic) (peripheral) PLAN: This patient was seen and examined. Patient noted to have removed wound VAC over the weekend due to increased odor and started Dakin's wet-to-dry at that time. There is very minimal odor to the wound now. There is some necrosis of the fat noted. Patient is also noted to not be using his walker anymore. We discussed the importance of proper offloading to the site. Discussed that the wound VAC is working as now there is bone coverage. We will continue with the wound VAC. Discussed that as I am leaving the wound care center I recommend follow up with Dr. Buchanan who is at the wound care center on Wednesdays. Discussed that we could probably do nurse visits for wound VAC changes on Mondays and Fridays and to have 3 wound VAC changes a week which should help with the odor. Patient understands and is agreeable to this plan. Debridement was performed as noted in the clinical nursing panel after verbal consent was obtained Patient is status post left plantar lateral heel debridement with bone biopsy by Dr. Rahman on 12/27/2020. Per chart review, a bone biopsy was obtained on 12-27-20. This is reviewed today and was negative for osteomyelitis. The microbiology results from that same biopsy demonstrated MRSA and corynebacterium growth. His most up-to-date blood culture from 12-30-20 is negative. Patient is still taking antibiotics as prescribed by Dr. Nick in infectious disease. He relates that he has a follow-up appointment with him this week. To continue wound VAC (150 mmHg continuous); 2-3 times per week. Due to restraints with patient concerns and having met [facility] home health care for the year patient has been unable to get home health care to assist with the wound VAC. He does not have anyone at home to teach the skilled to. It was decided patient can come to the wound care center for an additional nurses visit for wound VAC changes. To wash with antibacterial soap and water prior to each change. Patient is also noted to have Dakin's at home. Discussed if seal is broken or concerned about malodor that he should remove the VAC in place Dakin's wet-to-dry and contact the wound care center for further instructions. Patient understands. Reviewed the patient discussed importance of smoking cessation, blood sugar control, weight management, offloading, proper nutrition, infection control and hygiene to optimize healing potential. It is noted that patient's hemoglobin A1c is 10.3% on 12/27/2020. Patient is noted to be wearing crocs without any offloading assistive devices which is not properly offloading the wound. His other updated diagnostic data was reviewed from 12/26 with ESR 34, 12/27 with hemoglobin A1c as noted, 12/28 with white blood cell count 10.1, creatinine 2.18 and creatinine clearance 42.22. We discussed the importance of offloading. He was advised to use a walker and to toe-touch for balance if needed. To reduce overall activity. The importance of this part of the wound healing plan was discussed in length today. Discussed with the patient that if this wound worsens that he is at risk for limb amputation. To follow-up in clinic next week with Dr. Buchanan and continue scheduled nurse visits. Note: [employer] speech recognition demurrage agent software was used to create portions of this document. Sound-alike and misspelled words, as well as other demurrage agent errors may be contained in the documentation.
[2021-02-02 08:16] VITALS: BP 186/99; PULSE 83; RESP 18; TEMP 35.9; BMI 37.6
--- NOTE | 2021-02-02 09:32 | PN.PCM_ITS ---
History of Present Illness Date of Service: 02/02/21 Chief Complaint: Right foot wound History of Wound: Patient is a follow-up for widespread ulcer of left heel and hindfoot. Patient has significant medical history including diabetes, congestive heart failure, hypertension, obesity, venous insufficiency, history of NSTEMI and COVID-19. This patient is continuing wound VAC therapy. He has not been following up as advised. He relates he has been walking on the ulcer and did not try to offload yet. He is also under the care of infectious disease specialist, Dr. Nick. He is also scheduled to see his primary care physician next week. He denies odor, redness, fever, chill, nausea, vomiting. He is upset and does not want to offload his ulcers today. Progress of Wound: Stable overall, slight worsening to the plantar medial aspect of the ulcer site Objective Data Objective Data Vital Signs: Vital Signs Temp Pulse Resp BP 96.7 F L 83 18 186/99 H 02/02/21 08:16 02/02/21 08:16 02/02/21 08:16 02/02/21 08:16 Oxygen Delivery Method Room Air Weight: 122.47 kg Body Mass Index (BMI) 37.6 Physical Exam Extremity Extremity Narrative: Vascular: CFT is less than 2 seconds all remaining toes without evidence of ischemia with DP and PT palpable bilaterally. Neuro: Significant decrease of epicritic sensation Musculoskeletal: Noted right hallux amputation. Denies pain on palpation of calf. Derm: Left plantar posterior lateral heel ulceration. This no longer probes to bone. No further purulent drainage. Minimal malodor. Skin edges are warm with surrounding peeling skin noted. Resolved surrounding erythema and edema noted. Some granular and fibrotic base mixed. adjacent skin is hairless and atrophic. Plantar fat pad is exposed with some necrosis noted to the fat and partial tendon as well suspected to the plantar medial aspect of this ulcer site. No adjacent fluctuance or bogginess. Debridement Note Debridement Note Wound debrided: Plantar left heel Wound Grade/Stage: 3 Type of Debridement: Excisional debridement Anesthesia Used: 4% Lidocaine Solution Depth: in the subcutaneous layer Percentage of wound debrided: 100 Instrument Used: #15 blade Tissue Removed: fibrous, devitalized subcutaneous, biofilm, slough Severity: Fat Layer Exposed Amount of bleeding with debridement: Mild Bleeding Controlled with: Pressure Patient tolerated procedure: Patient tolerated procedure well Post-Debridement Measurements and Additional Note: Post-Debridement Measurements/Treatment WC - Nurse 1 - General Ulcer Assessment Start: 01/07/21 12:00 Freq: Status: Active Protocol: RADHA Activity Type Activity Date Activity User E-Sign Co-Sign Detail Recorded Client Recorded Date Recorded By Document 01/07/21 12:00 RB [id number] 01/07/21 12:02 RB Document 01/12/21 08:07 BMF [id number] 01/12/21 08:11 BMF Document 01/14/21 11:28 JF [id number] 01/14/21 11:31 JF Document 01/18/21 08:03 MW Desktop 01/18/21 08:06 MW Document 01/25/21 08:06 DL [id number] 01/25/21 08:10 DL Document 02/02/21 08:16 RB Desktop 02/02/21 08:19 RB 01/07/21 01/12/21 01/14/21 12:00 08:07 11:28 WC - Today's Visit Information Type of service Follow-up Visit Follow-up Visit Nurse-only (Physician/PLASTER MACHINE TENDER (Physician/PLASTER MACHINE TENDER Visit ) ) Arrival Mode Ambulatory Ambulatory Ambulatory Transfer Assistance None None Accompanied by Patient Identification Verified (Name & Yes Yes ) Patient Requires Transmission-Based No No No Precautions Safety Precautions Finger Stick Blood Sugar(mg/dl) (if 146 indicated): Blood Sugar Stated by Patient Height and Weight Body Mass Index (BMI) 37.6 37.6 37.6 BMI Classification Obese Obese Obese Vital Signs Temperature (97.8 F-99.1 F) 97.8 F 96.7 F L 96.8 F L Temperature Source Temporal Temporal Temporal Pulse Rate (60-100) 72 67 Pulse Location Monitor Monitor Respiratory Rate (12-18) 18 16 Respiratory rate source Observation Observation Oxygen Delivery Method Room Air Blood Pressure (90/60-120/80) 113/64 166/79 H Blood Pressure Mean (mm Hg) 80 108 Source Monitor Monitor Position Semi-Fowlers Sitting Blood Pressure Location Left Arm Right Arm History Since Last Visit- (Skip if this is Patient's initial visit) Have you changed medications since your No No last visit? Any new allergies or adverse reactions No No Had a fall/change in ADL's that may No No increase risk of falls Signs or symptoms of abuse and/or No No neglect since last visit Have you been in the hospital since your No No last visit? Has dressing in place as prescribed Yes Yes Has compression in place as prescribed Yes Yes Has offloadiing in place as prescribed No N/A Experienced any changes in pain level or No No management Left Footwear Regular Shoe Right Footwear Regular Shoe Pain Scale: 0-10 Numeric Is Patient Pain Free? Yes Yes 01/18/21 01/25/21 02/02/21 08:03 08:06 08:16 WC - Today's Visit Information Type of service Follow-up Visit Follow-up Visit Follow-up Visit (Physician/PLASTER MACHINE TENDER (Physician/PLASTER MACHINE TENDER (Physician/PLASTER MACHINE TENDER ) ) ) Arrival Mode Ambulatory Ambulatory Ambulatory Transfer Assistance None Stretcher None Accompanied by self Patient Identification Verified (Name & Yes Yes Yes ) Patient Requires Transmission-Based No No No Precautions Safety Precautions NA Finger Stick Blood Sugar(mg/dl) (if 134 124 indicated): Blood Sugar Stated by Patient Height and Weight Body Mass Index (BMI) 37.6 37.6 37.6 BMI Classification Obese Obese Obese Vital Signs Temperature (97.8 F-99.1 F) 97.3 F L 96.6 F L 96.7 F L Temperature Source Temporal Temporal Temporal Pulse Rate (60-100) 80 93 83 Pulse Location Monitor Monitor Monitor Respiratory Rate (12-18) 18 20 H 18 Respiratory rate source Observation Observation Observation Oxygen Delivery Method Room Air Blood Pressure (90/60-120/80) 153/68 H 124/92 H 186/99 H Blood Pressure Mean (mm Hg) 96 102 128 Source Monitor Monitor Monitor Position Sitting Semi-Fowlers Blood Pressure Location Right Arm Left Arm History Since Last Visit- (Skip if this is Patient's initial visit) Have you changed medications since your No No No last visit? Any new allergies or adverse reactions No No No Had a fall/change in ADL's that may No No No increase risk of falls Signs or symptoms of abuse and/or No No No neglect since last visit Have you been in the hospital since your No No No last visit? Has dressing in place as prescribed No No Yes Has compression in place as prescribed Yes Yes No Has offloadiing in place as prescribed N/A Yes No Experienced any changes in pain level or No No No management Left Footwear Regular Shoe Regular Shoe Right Footwear Regular Shoe Regular Shoe Pain Scale: 0-10 Numeric Is Patient Pain Free? Yes Yes Yes WC - Nurse 1 - General Ulcer Measurement Start: 01/07/21 12:00 Freq: Status: Active Protocol: Activity Type Activity Date Activity User E-Sign Co-Sign Detail Recorded Client Recorded Date Recorded By Document 01/07/21 12:00 RB [id number] 01/07/21 12:02 RB Document 01/12/21 08:07 BMF [id number] 01/12/21 08:11 BMF Document 01/18/21 08:03 MW Desktop 01/18/21 08:06 MW Document 01/25/21 08:06 DL [id number] 01/25/21 08:10 DL Document 02/02/21 08:16 RB Desktop 02/02/21 08:19 RB 01/07/21 01/12/21 01/18/21 12:00 08:07 08:03 Wound Center Nurse 1 L heel -Combined with other wound No No -Current Size (cm) - Length 7 7.5 -Current Size (cm) - Width 4.1 3.8 -Current Size (cm) - Depth 1.8 2.6 -Total Square Cm 28.7 28.50 -Photo Taken No No -Epithelialization None Present None Present -Tunneling No No -Undermining/Tunneling No No -Undermining/Tunneling Starts (O'clock ) -Undermining/Tunneling Ends (O'clock) -Maximum Distance (cm) -Maximum Distance #2 (cm) -Circular Undermining No No -Exudate Amt Medium Large -Exudate Type Serosanguineous Serosanguineous -Wound Margin Distinct, Thickened Outline Attached -Granulation Amt Medium (34-66%) Medium (34-66%) Small (1-33%) -Granulation Quality [place] -Slough/Fibrin Yes Yes Yes -Necrosis Amt Medium (34-66%) Large (67-100%) Large (67-100%) -Necrotic Tissue Type Adherent Slough Adherent Slough Adherent Slough -Structure Exposed N/A Bone N/A -Texture (Cathie-wound Skin Appearance) Assessed Assessed, Assessed, Scarring Scarring -Moisture (Cathie-wound Skin Appearance) Maceration Assessed, Assessed, Maceration Maceration -Color (Cathie-wound Skin Appearance) Assessed Assessed,Palor No Abnormality, Assessed -Temperature (Cathie-wound Skin No Abnormality No Abnormality No Abnormality Appearance) (Pt Warm) (Pt Warm) (Pt Warm) -Tenderness on Palpation (Cathie-wound No No No Skin Appearance) -Ulcer Cleansing Wound Cleanser Soap and Water Soap and Water -Foul Odor after Cleansing No Yes, Due to No Product Use -Anesthetic Used 4% Lidocaine 4% Lidocaine Solution Solution Lower Limb Edema Present Yes Yes Left Calf (cm) 43.5 40.2 Left Ankle (cm) 27.5 27.8 01/25/21 02/02/21 08:06 08:16 Wound Center Nurse 1 L heel -Combined with other wound No -Current Size (cm) - Length 7 5.5 -Current Size (cm) - Width 3.5 2.8 -Current Size (cm) - Depth 1.6 2 -Total Square Cm 24.5 15.40 -Photo Taken No -Epithelialization -Tunneling No -Undermining/Tunneling Yes -Undermining/Tunneling Starts (O'clock 2 2 ) -Undermining/Tunneling Ends (O'clock) 4 5 -Maximum Distance (cm) 2 -Maximum Distance #2 (cm) 1.6 -Circular Undermining No -Exudate Amt Medium Large -Exudate Type Serosanguineous Serosanguineous -Wound Margin Distinct, Thickened & Outline Rolled Under Attached -Granulation Amt Small (1-33%) Medium (34-66%) -Granulation Quality [place],Red -Slough/Fibrin Yes -Necrosis Amt Small (1-33%) Medium (34-66%) -Necrotic Tissue Type Adherent Slough Adherent Slough -Structure Exposed N/A N/A -Texture (Cathie-wound Skin Appearance) Callus,Scarring Assessed,Callus -Moisture (Cathie-wound Skin Appearance) Maceration Assessed -Color (Cathie-wound Skin Appearance) Erythema Assessed -Temperature (Cathie-wound Skin No Abnormality No Abnormality Appearance) (Pt Warm) (Pt Warm) -Tenderness on Palpation (Cathie-wound No Skin Appearance) -Ulcer Cleansing Soap and Water Wound Cleanser -Foul Odor after Cleansing Yes Yes -Anesthetic Used 4% Lidocaine 5% Lidocaine Solution Gel Lower Limb Edema Present Left Calf (cm) Left Ankle (cm) WC - Nurse 2 - General Ulcer CM Notes Start: 01/07/21 12:00 Freq: Status: Active Protocol: Activity Type Activity Date Activity User E-Sign Co-Sign Detail Recorded Client Recorded Date Recorded By Document 01/12/21 08:22 [id number] 01/12/21 08:29 Document 01/18/21 08:17 JF [id number] 01/18/21 08:22 Document 01/25/21 08:22 JF [id number] 01/25/21 08:26 Document 02/02/21 08:27 [id number] 02/02/21 08:33 01/12/21 01/18/21 01/25/21 08:22 08:17 08:22 Wound Center Nurse 2 L heel -Time 08:23 08:17 08:23 -Correct Patient Yes Yes Yes -Correct Side, Site, Position Yes Yes Yes -Correct Procedure Yes Yes Yes -Procedure Performed Yes Yes Yes -Type of Procedure Debridement Debridement Debridement -Clinical Debridement Subcutaneous Muscle / Fascia Muscle / Fascia -Tissue Removed Subcutaneous Muscle Muscle -Post Debridement (cm) - Length 7 4 5 -Post Debridement (cm) - Width 4.2 7 3.5 -Post Debridement (cm) - Depth 0.8 2.1 2 -Total Square (Post) (cm) 29.4 28 17.5 -Area of Debridement (cm) - Length 7 4 5 -Area of Debridement (cm) - Width 4.2 7 3.5 -Total Square (Area) (cm) 29.4 28 17.5 -Tunneling No No No -Undermining/Tunneling No No No -Circular Undermining No No No -Wound/Ulcer Outcome Not Healed Not Healed Not Healed -Ulcer Cleansing Rinsed/ Rinsed/ Rinsed/ Irrigated with Irrigated with Irrigated with Saline Saline Saline -Foul Odor after Cleansing No No No -Bioengineered Tissue No No No -Bleeding Controlled with Pressure Pressure Pressure -Offloading Yes No No -Type of Offloading Surgical Shoe -Treatment Response Procedure Procedure Procedure Tolerated Well Tolerated Well Tolerated Well -Debridement - Subq, 1st 20sq cm Yes No -Debridement, SubQ, ea addt'l 20sq cm 1 or part thereof -Debridement - Muscle / Fascia, 1st Yes Yes 20sq cm -Debridement, Muscle/Fascia, ea addt'l 1 20sq cm or part thereof Pain Scale: 0-10 Numeric Is Patient Pain Free? Yes Yes Yes 02/02/21 08:27 Wound Center Nurse 2 L heel -Time 08:28 -Correct Patient Yes -Correct Side, Site, Position Yes -Correct Procedure Yes -Procedure Performed Yes -Type of Procedure Debridement -Clinical Debridement Muscle / Fascia -Tissue Removed Tendon -Post Debridement (cm) - Length 5.5 -Post Debridement (cm) - Width 3 -Post Debridement (cm) - Depth 2.2 -Total Square (Post) (cm) 16.5 -Area of Debridement (cm) - Length 5.5 -Area of Debridement (cm) - Width 3 -Total Square (Area) (cm) 16.5 -Tunneling No -Undermining/Tunneling No -Circular Undermining No -Wound/Ulcer Outcome Not Healed -Ulcer Cleansing Rinsed/ Irrigated with Saline -Foul Odor after Cleansing No -Bioengineered Tissue No -Bleeding Controlled with Pressure -Offloading No -Type of Offloading -Treatment Response Procedure Tolerated Well -Debridement - Subq, 1st 20sq cm -Debridement, SubQ, ea addt'l 20sq cm or part thereof -Debridement - Muscle / Fascia, 1st Yes 20sq cm -Debridement, Muscle/Fascia, ea addt'l 20sq cm or part thereof Pain Scale: 0-10 Numeric Is Patient Pain Free? WC - Nurse 3 - General Ulcer D/C NN Start: 01/07/21 12:00 Freq: Status: Active Protocol: Activity Type Activity Date Activity User E-Sign Co-Sign Detail Recorded Client Recorded Date Recorded By Document 01/07/21 12:00 RB [id number] 01/07/21 12:02 RB Document 01/12/21 09:18 RB [id number] 01/12/21 09:18 RB Document 01/14/21 11:28 JF [id number] 01/14/21 11:31 JF Document 01/18/21 08:31 BMF Desktop 01/18/21 08:32 BMF Document 01/25/21 08:41 DL [id number] 01/25/21 08:43 DL Document 02/02/21 08:37 BMF Desktop 02/02/21 08:39 BMF 01/07/21 01/12/21 01/14/21 12:00 09:18 11:28 Vital Signs Temperature (97.8 F-99.1 F) 97.8 F 96.8 F L Temperature Source Temporal Temporal Pulse Rate (60-100) 72 Pulse Location Monitor Respiratory Rate (12-18) 18 Respiratory rate source Observation Blood Pressure (90/60-120/80) 113/64 Blood Pressure Mean (mm Hg) 80 Source Monitor Position Semi-Fowlers Blood Pressure Location Left Arm Pain Scale: 0-10 Numeric Is Patient Pain Free? Yes Yes Wound Care Nurse 3 L heel -Ulcer Cleansing Wound Cleanser Wound Cleanser -Foul Odor after Cleansing No -Negative Pressure Wound Therapy Continue Continue Continue -Setting (mmHg) 150 150 150 -Negative Pressure is Continuous Continuous Continuous -Primary Dressing Applied -Other Dressing abd under tubing, leonides -Primary Dressing Covered/Secured with -Other Covering -NPWT Application Charge NPWT </= 50 sq NPWT </= 50 sq NPWT </= 50 sq cm ($) cm ($) cm ($) Left -Compression Wrap Leonides Wrap Treatment Response Procedure Procedure Tolerated Well Tolerated Well WC - Visit Discharge Discharge Condition Stable Stable Stable Ambulatory Status Ambulatory Ambulatory Ambulatory Transportation Private Auto Private Auto Medication Reconcilliation completed & No No provided to patient/care provider Clinical Summary of Care Provided Yes Yes Notes: leonides Discussed the importance of using his walker to assist in offloading pressure from heel ulcer. Patient arrived today with regular tennis shoes on but no walker. Small amount of bruising noted to cathie-ulcer on plantar portion of ulcer. Discussed this with him so he was made aware. 01/18/21 01/25/21 02/02/21 08:31 08:41 08:37 Vital Signs Temperature (97.8 F-99.1 F) Temperature Source Pulse Rate (60-100) Pulse Location Respiratory Rate (12-18) Respiratory rate source Blood Pressure (90/60-120/80) Blood Pressure Mean (mm Hg) Source Position Blood Pressure Location Pain Scale: 0-10 Numeric Is Patient Pain Free? Yes Yes Yes Wound Care Nurse 3 L heel -Ulcer Cleansing Rinsed/ Rinsed/ Rinsed/ Irrigated with Irrigated with Irrigated with Saline Saline Saline -Foul Odor after Cleansing No No -Negative Pressure Wound Therapy Continue Continue -Setting (mmHg) 150 150 -Negative Pressure is Continuous Continuous -Primary Dressing Applied Other -Other Dressing betadine -Primary Dressing Covered/Secured with Dry Gauze & Roll Gauze, Secured with Tape -Other Covering leonides drsg per rb rn -NPWT Application Charge NPWT </= 50 sq NPWT </= 50 sq cm ($) cm ($) Left -Compression Wrap Leonides Wrap Leonides Wrap Treatment Response Procedure Procedure Procedure Tolerated Well Tolerated Well Tolerated Well WC - Visit Discharge Discharge Condition Stable Stable Stable Ambulatory Status Ambulatory Ambulatory Ambulatory Transportation Private Auto Private Auto Private Auto Medication Reconcilliation completed & provided to patient/care provider Clinical Summary of Care Provided Notes: Assessment/Plan Assessment/Plan (1) Chronic ulcer of right foot with necrosis of bone: CODE(S): L97.514 - Non-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 (2) Uncontrolled diabetes mellitus: CODE(S): E11.65 - Type 2 diabetes mellitus with hyperglycemia QUALIFIERS: Diabetes mellitus type: other specified (including IZABELA) Glycemic state: with hyperglycemia Qualified Code(s): E13.65 - Other specified diabetes mellitus with hyperglycemia (3) Chronic kidney disease: CODE(S): N18.9 - Chronic kidney disease, unspecified QUALIFIERS: Chronic kidney disease stage: stage 3 (moderate) Chronic kidney disease stage 3 subtype: stage 3b (GFR 30-44) Qualified Code(s): N18.32 - Chronic kidney disease, stage 3b (4) Venous insufficiency: CODE(S): I87.2 - Venous insufficiency (chronic) (peripheral) PLAN: This patient was seen and examined. I reviewed and discussed his case. Debridement was performed as noted in the nursing panel. I recommend changing his dressing daily with Dakin wet-to-dry. To consider resuming wound VAC 3 times a week at 150 mmHg continuous only if this odor and reduced necrotic tissue resolved to the plantar medial aspect which is compromised due to him walking on this. Patient is status post left plantar lateral heel debridement with bone biopsy by Dr. Rahman on 12/27/2020. Per chart review, a bone biopsy was obtained on 12-27-20. This is reviewed today and was negative for osteomyelitis. The microbiology results from that same biopsy demonstrated MRSA and corynebacterium growth. His most up-to-date blood culture from 12-30-20 is negative. Patient is still taking antibiotics as prescribed by Dr. Nick in infectious disease. He relates that he has a follow-up appointment with him as advised. Reviewed the patient discussed importance of smoking cessation, blood sugar control, weight management, offloading, proper nutrition, infection control and hygiene to optimize healing potential. It is noted that patient's hemoglobin A1c is 10.3% on 12/27/2020. Patient is noted to be wearing crocs without any offloading assistive devices which is not properly offloading the wound. I recommended improvement offloading with a cam walker boot. A prescription was provided with additional dual density Plastizote offloading liner with offloading pocket. He is also advised to use a walker, crutches or knee roller for assistance. His other updated diagnostic data was reviewed from 12/26 with ESR 34, 12/27 with hemoglobin A1c as noted, 12/28 with white blood cell count 10.1, creatinine 2.18 and creatinine clearance 42.22. We discussed the importance of offloading. He was advised to use a walker and to toe-touch for balance if needed. To reduce overall activity. The importance of this part of the wound healing plan was discussed in length today. Discussed with the patient that if this wound worsens that he is at risk for limb amputation. To follow-up next week at the wound healing center. Note: [employer] speech recognition food safety auditor software was used to create portions of this document. Sound-alike and misspelled words, as well as other food safety auditor errors may be contained in the documentation.
== END 2021-02-06 23:59 ==
LOC: WC 08:00
PROVIDERS: PCP Family Medicine; Referring Provider Internal Medicine; Visit Provider Podiatrist
DX: E11.621 Type 2 diabetes mellitus with foot ulcer (principal); L97.514 Non-pressure chronic ulcer of other part of right foot with necrosis of bone; E11.22 Type 2 diabetes mellitus with diabetic chronic kidney disease; E11.65 Type 2 diabetes mellitus with hyperglycemia; E66.9 Obesity, unspecified; I13.0 Hypertensive heart and chronic kidney disease with heart failure and stage 1 through stage 4 chronic kidney disease, or unspecified chronic kidney disease; I50.9 Heart failure, unspecified; I87.2 Venous insufficiency (chronic) (peripheral); N18.32 Chronic kidney disease, stage 3b; I25.2 Old myocardial infarction; Z86.16 Personal history of COVID-19; Z68.37 Body mass index [BMI] 37.0-37.9, adult
CPT/HCPCS: 11042; 11043; 11045; 11046; 97605

== ENCOUNTER 2021-06-14 11:44 | Observation (INO) | payer OTHER, SELFPAY ==
[2018-12-25 08:56] VITALS: BMI 37.9
[2021-06-14] VITALS (13 sets, daily range): BP systolic 144–208; BP diastolic 61–110; PULSE 90–112; RESP 18–30; TEMP 35.6–37; O2SAT 87–96; BMI 42.7; BMI 43.9; BMI 44.4
--- NOTE | 2021-06-14 11:51 | ED.RN ---
[address] [facility]. physician eval in [facility] and stroke alert called.pt tearful at times saying doesnt take meds like supposed to. [facility] stroke alert rn called.
--- NOTE | 2021-06-14 11:53 | CT_ITS ---
We are attempting to reach an attending provider to discuss findings. An addendum with communication details will be sent when the communication is complete. STUDY: CT HEAD STROKE PROTOCOL W/O CONTRAST INJECTION REASON FOR EXAM: Male, 51 years old. Neuro deficit, acute, stroke suspected RADIATION DOSAGE (If Supplied By Facility): CTDIvol = ( ) mGy, DLP = ( ) mGycm TECHNIQUE: Transaxial CT imaging of the brain was performed without administration of intravenous contrast material. Individualized dose optimization techniques were used for this CT. COMPARISON: 03/15/2020 FINDINGS: Normal soft tissue structures. Normal calvarium. There is moderate cerebral atrophy with widening of the extra-axial spaces and ventricular dilatation. Prominent origin of the sylvian fissure on the right possibly from an arachnoid cyst which is unchanged. There are areas of decreased attenuation within the white matter tracts of the supratentorial brain, consistent with microvascular disease changes. There are small punctate calcifications of the basal ganglia which are seen in the aging brain as a normal variant. Normal brainstem. Normal cerebellum. There is no intracranial hemorrhage. There are no findings of an acute ischemic infarction. Mucous retention cyst in the right maxillary sinus consistent with chronic sinusitis. ASPECT score: CT/STROKE Brain/Head without Cont IMPRESSION: Chronic involutional changes of the brain. Electronically Signed: Surinder Pedersen MD at 12:07 EST ,
--- NOTE | 2021-06-14 11:53 | EKG12_ITS ---
Test Reason : Blood Pressure : / mmHG Vent. Rate : 096 BPM Atrial Rate : 096 BPM P-R Int : 176 ms QRS Dur : 118 ms QT Int : 380 ms P-R-T Axes : 041 066 -56 degrees QTc Int : 480 ms Normal sinus rhythm Normal ECG Confirmed by DANNY NUNEZ, CHAPARRO ([id number]), index editor ISRAEL MALIK ([id number]) on 06/15/2021 9:41:34 AM Referred By: CHARY Confirmed By:CHAPARRO DELGADO MD
--- NOTE | 2021-06-14 11:54 | CT_ITS ---
We are attempting to reach an attending provider to discuss findings. An addendum with communication details will be sent when the communication is complete. STUDY: CTA HEAD AND NECK WITH CONTRAST REASON FOR EXAM: Male, 51 years old. Neuro deficit, acute, stroke suspected RADIATION DOSAGE (If Supplied By Facility): CTDIvol = ( 25.16 ) mGy, DLP = ( 932.91 ) mGycm TECHNIQUE: CT angiography was performed with a multi-detector CT scanner. Data acquisition was obtained from the skull base through the vertex following intravenous administration of IV 100mL [id number]-370. MIP images were reconstructed from the axial data set. Post-processing of the angiographic images was performed, with multiplanar reformation and 3D reconstruction. Individualized dose optimization techniques were used for this CT. COMPARISON: No relevant priors. FINDINGS: Normal bilateral petrous carotid arteries. There is calcified plaque formation of the right cavernous carotid artery, without a cross-sectional luminal stenosis. There is calcified plaque formation of the left cavernous carotid artery, without a cross-sectional luminal stenosis. There is hypoplastic development of the right A1 segment of the anterior cerebral arteries with an atretic but intact artery. Normal left A1 segments of the anterior cerebral artery. Normal intact anterior communicating artery (ACOM). Normal bilateral A2 segments of the anterior cerebral arteries. Normal right M1 and M2 segments of the middle cerebral arteries, with a normal M1 bifurcation. Normal left M1 and M2 segments of the middle cerebral arteries, with a normal M1 bifurcation. Normal right posterior communicating artery (PCOM). Normal left posterior communicating artery (PCOM). Normal bilateral vertebral arteries. Normal basilar artery with a normal basilar bifurcation. The visualized bilateral superior cerebellar (SCA) arteries are normal. Normal bilateral P1, P2 and visualized P3 segments of the posterior cerebral arteries. There is no demonstrated aneurysm of the [place]. There is no demonstrated abnormality of the visualized brain. AORTIC ARCH: Normal visualized aortic arch. Normal origins of the brachiocephalic, left common carotid, and left subclavian arteries. Coronary artery calcification. Findings suggestive of bilateral pleural effusions right greater than left. RIGHT CAROTID ARTERIES: Normal right common carotid artery (CCA). Normal right common carotid bulb. There is mild atherosclerotic plaque formation of the origin of the right internal carotid artery with less than 50% cross sectional diameter stenosis. Normal visualized cervical portion of the right internal carotid artery. Normal origin of the right external carotid artery (ECA). LEFT CAROTID ARTERIES: Normal left common carotid artery (CCA). Normal left common carotid bulb. There is mild atherosclerotic plaque formation of the origin of the left internal carotid artery with less than 50% cross sectional diameter stenosis. Normal visualized cervical portion of the left internal carotid artery. Normal origin of the left external carotid artery (ECA). VERTEBRAL ARTERIES: There is enhancement within the bilateral vertebral arteries with a small right vertebral artery, and a dominant left vertebral artery. CT/STROKE CTA Head AND Neck W/Con IMPRESSION: Minimal plaque at the carotid bifurcations bilaterally causing less than 50% luminal stenosis. Coronary artery calcification. Findings suggestive of bilateral pleural effusions right greater than left. Electronically Signed: Dario Ponce MD at 12:22 EST ,
--- NOTE | 2021-06-14 11:54 | EDS_ITS ---
HPI History of Present Illness Chief Complaint: Neuro S/Sx Detail of Chief Complaint: Numbness and tingling to left side of face Informant: patient Narrative Narrative: Patient presents to the emergency department via EMS with numbness to the left side of his face. Patient states that he thinks it started around 7 AM. Patient states that he has had similar episodes over last several days but had resolved. He denies any weakness in the extremities. He denies visual changes. He denies difficulty with speech. Patient thinks he is on a blood thinner but is not sure. He is never had a stroke before. He does have history of coronary artery disease with multiple cardiac stents. Patient has history of diabetes and hypertension. Prior similar symptoms: No [facility] Medical History (Updated 06/14/21 @ 12:[address] Arsenio Luis, DO) Atherosclerotic heart disease of [place] coronary artery without angina pectoris Chronic diastolic (congestive) heart failure Depression Diabetes mellitus, type II Essential (primary) hypertension History of non-ST elevation myocardial infarction (NSTEMI) (03/15/20) History of stress test Hyperlipidemia Ischemic cardiomyopathy (06/2013) Obesity Partial nontraumatic amputation of right foot Pneumonia due to COVID-19 virus (03/14/20) Venous insufficiency Home Medications Mag-Ox 400 1 tab PO DAILY 09/28/14 [History Last Taken 12/20/18] aspirin 81 mg PO DAILY@0800 09/28/14 [History Last Taken 12/20/18] nitroglycerin 0.4 mg sublingual tablet 0.4 mg SUBLINGUAL Q5-15M PRN 04/20/17 [History Last Taken Unknown] atorvastatin 80 mg PO QHS 12/20/18 [History Last Taken 12/19/18] clopidogrel 75 mg PO DAILY #90 tab 12/25/18 [Rx Last Taken Unknown] glimepiride 2 mg tablet 2 mg PO QAM #90 tab 03/11/19 [Rx Last Taken Unknown] hydralazine 25 mg tablet 25 mg PO .COMPLEX #90 tab 09/08/19 [Rx Last Taken Unknown] hydralazine 50 mg tablet 50 mg PO .COMPLEX #90 tab 09/08/19 [Rx Last Taken Unknown] furosemide 40 mg tablet 40 mg PO .COMPLEX #240 tab 11/18/19 [Rx Last Taken Unknown] Trulicity 0.75 mg SUBCUT TH 08/21/20 [History Last Taken Unknown] insulin glargine 15 unit SC DAILY #0 ml 08/26/20 [Rx Last Taken Unknown] isosorbide mononitrate 60 mg tablet,extended release 24 hr 60 mg PO DAILY #90 tab 10/25/20 [Rx Last Taken Unknown] losartan 25 mg tablet 25 mg PO DAILY #90 tab 10/25/20 [Rx Last Taken Unknown] metoprolol succinate 100 mg tablet,extended release 24 hr 100 mg PO DAILY #90 tab 10/25/20 [Rx Last Taken Unknown] amoxicillin-pot clavulanate [Augmentin] 1 tab PO Q12H #30 tab 12/29/20 [Rx Last Taken Unknown] linezolid 600 mg PO Q12H 14 Days #28 tab 12/29/20 [Rx Last Taken Unknown] amlodipine 5 mg tablet 5 mg PO DAILY #90 tab 02/21/21 [Rx Last Taken Unknown] Allergy/AdvReac Type Severity Reaction Status Date / Time lisinopril AdvReac Intermediate Cough Verified 12/26/20 17:34 losartan AdvReac Intermediate cough Verified 12/26/20 17:34 Family History Father , Age 57 from [place] Myocardial infarction CAD (coronary artery disease) Sudden cardiac Mother Sick sinus syndrome Sister Diabetes Surgical History H/O cardiac catheterization History of coronary artery stent placement (01/02/19) Social History Smoking Status: Never smoker ROS ROS ED Constitutional Constitutional ED: Reports systems reviewed and no addt'l complaints, except as documented; Denies body ache(s), change in weight or chills Eyes Eyes: Denies acute decrease in peripheral vision, change in vision, double vision or loss of vision ENT ENT ED: Reports none; Denies ear pain, lip swelling, loss taste/smell, neck pain, otalgia or sore throat Cardiovascular Cardiovascular: Reports none; Denies abdominal pain, chest pain with activity, leg edema, lightheadedness, palpitations, rapid heart rate or syncope Respiratory/Chest Respiratory/Chest: Reports none; Denies change in mental status, dry cough, dyspnea, hemoptysis, shortness of breath at rest or shortness of breath with exertion Gastrointestinal Gastrointestinal: Reports none; Denies abdominal pain, change in stool character, diarrhea, hematemesis, hematochezia, melena, rectal bleeding or vomiting Genitourinary Genitourinary ED: Reports none; Denies abdominal discomfort, anuria, dysuria, genital pain or polyuria Musculoskeletal Musculoskeletal: Reports none; Denies arthralgias, back pain, difficulty walking, extremity pain, muscle weakness or myalgias Integumentary Reports none; Denies abscess or rash Neurologic Neurologic: Reports none and paresthesias; Denies abnormal gait, confusion, f ocal weakness, frequent falls, headache(s), loss of vision, numbness, radicular pain, vertigo or weakness Psychiatric Psychiatric: Reports systems reviewed and no addt'l complaints, except as documented and none; Denies behavioral changes, confusion, difficulty concentrating, hallucinations, suicidal ideation, tactile hallucinations or visual hallucinations Endocrine Endocrinology: Denies none, cold intolerance, excessive sweating, fatigue or heat intolerance Hematologic/Lymphatic Hematologic/Lymphatic: Reports none; Denies anemia, easy bleeding or easy bruising Allergic/Immunologic Allergic/Immunologic ED: Denies as per HPI, none, lip swelling, mouth swelling, throat swelling, tongue swelling or hives EXAM Physical Exam Const Vital Signs: 06/14/21 11:53 06/14/21 11:54 06/14/21 12:00 Temperature 96.0 F L Temperature Source Temporal Pulse Rate 96 96 Respiratory Rate 23 H 24 H Blood Pressure 195/102 H 192/110 H Blood Pressure Mean 133 137 Pulse Ox 87 93 Oxygen Delivery Method Nasal Cannula Room Air Nasal Cannula Oxygen Flow Rate (L/min) 2 2 06/14/21 12:21 Temperature Temperature Source Pulse Rate 93 Respiratory Rate 27 H Blood Pressure 190/104 H Blood Pressure Mean 132 Pulse Ox 93 Oxygen Delivery Method Nasal Cannula Oxygen Flow Rate (L/min) 2 Positive well nourished and well developed General Appearance ED: well developed and NAD HEENT Reports TM's clear and moist mucous membranes normocephalic and atraumatic; Negative for trauma or tenderness Tympanic Membrane ED: Yes TM's clear Eyes PERRL and EOMs intact bilaterally General Eye ED: Negative for pale conjunctiva or scleral icterus Neck no lymphadenopathy, supple and no JVD General: Negative for tenderness Chest Wall inspection of chest normal and palpation of chest normal Chest: Negative for tenderness Resp normal respiratory effort and clear to auscultation bilaterally Effort and Inspection: Negative for respiratory distress or pain with movement Auscultation: Negative for rhonchi, wheezes or diminished lung sounds Cardio regular rate, regular rhythm, S1 normal heart sound, S2 normal heart sound and no murmurs Peripheral Pulses: pulses 2+ throughout GI normal to inspection, nondistended, normoactive bowel sounds, soft to palpation, non-tender, non-distended and no masses Back/Spine no CVA tenderness and no thoracic nor lumbar tenderness Extremity normal to inspection General Extremety ED: Negative for edema General Extremity: Negative for edema Neuro oriented x3, CN's II-XII intact bilaterally and gait normal Neuro Narrative: Patient with decreased sensation the left side of the face. No facial droop. Normal strength in the upper and lower extremities. NIH stroke scale was 1. Sensorium / Orientation: awake, alert, oriented to person, oriented to place and oriented to time Motor Exam: strength 5/5 throughout and strength abnormal Psych mental status grossly normal Skin no rashes or lesions noted and no wounds STROKE Vital Signs/Narrative: Vital Signs Temp Pulse Resp BP Pulse Ox 06/14/21 12:21 93 27 H 190/104 H 93 06/14/21 12:00 96 24 H 192/110 H 93 06/14/21 11:54 96.0 F L 96 23 H 195/102 H 87 MDM MDM MDM Narrative Medical decision making narrative: IV line established on arrival. Patient was taken directly to the CT scanner from EMS arrival on cot. Patient's initial CT was negative for hemorrhage or any acute disease process. He initially told me he did not have any kidney issues and therefore CTA of the head neck were obtained and these were unremarkable. Patient subsequently was found to have ch ronic kidney disease and his BUN was 51 and creatinine 2.55. Blood glucose was 335. Patient sister tells me patient is not been compliant with his medications. Patient's been having hard time sleeping at night because he is anxious and nervous. [facility] [place] neurology did evaluate patient and he is not a candidate for TPA as he has had recurrent episodes like this and today's episode he is more than 4 hours from symptom onset. His INR was only 1. Case will be discussed with hospitalist evaluate patient for admission. Lab Data Attestation: I reviewed the patient's lab results. Labs: Laboratory Results - last 24 hr 06/14/21 06/14/21 06/14/21 12:00 12:00 12:00 WBC 6.0 RBC 3.80 L Hgb 9.9 L Hct 32.2 L MCV 84.7 MCH 26.1 L MCHC 30.7 L RDW Std Deviation 49.0 H RDW Coeff of Rajendra 15.9 H Plt Count 253 MPV 10.9 Immature Gran % (Auto) 0.300 Neut % (Auto) 77.8 H Lymph % (Auto) 10.3 L [place] % (Auto) 8.9 Eos % (Auto) 2.0 Baso % (Auto) 0.7 Absolute Neuts (auto) 4.7 Absolute Lymphs (auto) 0.62 L Nucleated RBC % 0 PT 14.7 INR 1.2 APTT 28.8 Sodium 136 Potassium 4.0 Chloride 105 Carbon Dioxide 29.0 Anion Gap 2 L BUN 51 H Creatinine 2.55 H Estim Creat Clear Calc 34.59 Est GFR (MDRD) Af Amer 34 L Est GFR (MDRD) Non-Af 28 L BUN/Creatinine Ratio 20.0 Glucose 335 H Calcium 9.0 Troponin I High Sens 37 Radiography Diagnostic Testing: Clinical Impression(s) from Imaging Studies Brain CT 06/14/21 11:53 IMPRESSION: Chronic involutional changes of the brain. Electronically Signed: Surinder Pedersen MD at 12:07 EST , ADDENDUM: 06/14/21 1219 IMPRESSION: Chronic involutional changes of the brain. N.B. : The above Results were Read Back by Surinder Pedersen MD to AD luis, and understanding confirmed on 06/14/2021 12:12:43 (ET). Electronically Signed: Surinder Pedersen MD at 12:07 EST , Head/Neck CTA 06/14/21 11:54 IMPRESSION: Minimal plaque at the carotid bifurcations bilaterally causing less than 50% luminal stenosis. Coronary artery calcification. Findings suggestive of bilateral pleural effusions right greater than left. Electronically Signed: Dario Ponce MD at 12:22 EST , ADDENDUM: 06/14/21 1232 IMPRESSION: Minimal plaque at the carotid bifurcations bilaterally causing less than 50% luminal stenosis. Coronary artery calcification. Findings suggestive of bilateral pleural effusions right greater than left. N.B. : The above Results were Read Back by Dario Ponce MD to Dr Ann MD, and understanding confirmed on 06/14/2021 12:25:18 (ET). Electronically Signed: Dario Ponce MD at 12:22 EST , Chest X-Ray 06/14/21 12:30 IMPRESSION: Poor inspiration with some bibasilar atelectasis. Electronically Signed: Surinder Pedersen MD at 12:49 EST , Stroke Documentation Questions Stroke Team Activated: Yes Reviewed Inclusion/Exclusion criteria: Yes Was Patient considered for Endovascular Intervention?: No-CTA negative, determined not to be an endovascular candidate IV Alteplase (t-PA) Administered: No Discharge Plan Triage Chief Complaint: Neuro S/Sx ED Provider: Arsenio Luis Dx/Rx/DC Orders Clinical Impression: Paresthesias, Chronic kidney disease, Hypertension, Acute hyperglycemia Prescriptions: No Action nitroglycerin 0.4 mg tablet, sublingual 0.4 mg SUBLINGUAL Q5-15M PRN (Reason: Cardiac/Chest Pain) RF: 0 glimepiride 2 mg tablet 2 mg PO QAM Qty: 90 RF: 0 furosemide 40 mg tablet 40 mg PO .COMPLEX Qty: 240 RF: 3 Mag-Ox 400 1 tab PO DAILY RF: 0 aspirin 81 MG tablet,chewable 81 mg PO DAILY@0800 RF: 0 atorvastatin 80 MG tablet 80 mg PO QHS RF: 0 clopidogrel 75 MG tablet 75 mg PO DAILY Qty: 90 RF: 0 Trulicity 0.75 mg/0.5 mL pen injector 0.75 mg SUBCUT TH RF: 0 insulin glargine 100 unit/mL (3 mL) insulin pen 15 unit SC DAILY Qty: 0 RF: 0 linezolid 600 mg tablet 600 mg PO Q12H 14 Days Qty: 28 RF: 0 amoxicillin-pot clavulanate [Augmentin] 500-125 mg tablet 1 tab PO Q12H Qty: 30 RF: 0 hydralazine 50 mg tablet 50 mg PO .COMPLEX Qty: 90 RF: 11 hydralazine 25 mg tablet 25 mg PO .COMPLEX Qty: 90 RF: 11 metoprolol succinate 100 mg tablet extended release 24 hr 100 mg PO DAILY Qty: 90 RF: 3 isosorbide mononitrate 60 mg tablet extended release 24 hr 60 mg PO DAILY Qty: 90 RF: 3 losartan 25 mg tablet 25 mg PO DAILY Qty: 90 RF: 3 amlodipine 5 mg tablet 5 mg PO DAILY Qty: 90 RF: 3 Primary Care Provider: Joseph Ricks Referrals: Joseph Ricks MD [Primary Care Provider] - Disposition Disposition: Acute Care [facility]
--- NOTE | 2021-06-14 11:55 | CM.ED ---
Social Work Responding to stroke alert. Patient sister, Amalia Art present. This social services aide educated Amalia on stroke alert process. Amalia tearful. Support provided. Roff Ray also present and providing support. Will continue to follow. Mariela BRYAN, CORKY
--- NOTE | 2021-06-14 12:10 | CHAPLAIN ---
Type of Pastoral Visit ___ Initial Visit ___ Follow-up Visit ___ On-call Visit ___ General Patient Visit ___ Spiritual Assessment ___ Family Conference ___ Bereavement _x__ Rapid Response ___ Code Blue ___ Other (describe below) Pastoral Care Referral From ___ Patient ___ Family ___ Nurse ___ Physician ___ 911 Operator ___ Radio Program Checker _x__ Other (describe below) Sacrament/Intervention ___ Active listening ___ Anointing ___ Baptist ___ Bereavement ___ Communion ___ Masha exploration ___ ___ Life review ___ Prayer ___ Reconciliation ___ Sacrament of Sick _x__ Supportive presence ___ Wedding ___ Other (describe below) Pastoral Comments responded to stroke alert; patient was already in CT for testing; meet with sister of pt in the room; SW also available; offer of support and presence; sister is tearful and welcomes presence;
[2021-06-14 12:28] LABS: Absolute Lymphocyte Count 0.62 X10^3/uL (0.83-4.51); Absolute Neutrophil Count 4.7 X10^3/uL (2.0-7.7); Basophil# 0.04 X10^3/uL; Basophil% 0.7 % (0-1); Eosinophil# 0.12 X10^3/uL; Hematocrit 32.2 % (40-54); Hemoglobin 9.9 g/dL (13.0-16.5); Lymphocyte # 0.62 X10^3/ul (0.83-4.51); Lymphocyte % 10.3 % (19-41); Mean Corp Hgb Conc 30.7 g/dL (32-36); Mean Corpuscular Hgb 26.1 pg (27.0-32.0); Mean Corpuscular Volume 84.7 fL (80-94); Mean Platelet Vol. 10.9 fl (6.2-12.0); Monocyte# 0.54 X10^3/uL; Monocyte% 8.9 % (0-10); NRBC Flagged by Analyzer 0 % (0-5); Neutrophil % 77.8 % (47-70); Platelet Count 253 K/mm3 (150-450); RBC Distribution Width CV 15.9 % (11.6-14.6)
--- NOTE | 2021-06-14 12:30 | RAD_ITS ---
STUDY: X-RAY CHEST REASON FOR EXAM: Male, 51 years old. Neuro deficit, acute, stroke suspected TECHNIQUE: Single AP portable view of the chest. COMPARISON: 05/12/2020 FINDINGS: Poor inspiration with some bibasilar atelectasis Small bilateral pleural effusions. There is moderate cardiac enlargement. Normal mediastinum and [place]. Normal visualized pulmonary arteries. Normal visualized aortic arch and descending thoracic aorta. Normal visualized thoracic spine. Normal visualized ribs, clavicles, and shoulders. There is no demonstrated abnormality of the visualized soft tissue structures of the upper abdomen. RAD/Chest 1 View IMPRESSION: Poor inspiration with some bibasilar atelectasis. Electronically Signed: Surinder Pedersen MD at 12:49 EST ,
[2021-06-14 12:32] LABS: International Normalized Ratio 1.2; Partial Thromboplast Time 28.8 Seconds (24.1-36.2); Prothrombin Time (Protime)PT. 14.7 SECONDS (11.7-14.9)
[2021-06-14 12:43] LABS: Anion Gap 2 (5-15); BUN 51 mg/dL (7-18); Chloride 105 mmol/L (98-107); Creatinine, Serum 2.55 mg/dL (0.70-1.30); EST Glomerular Filtration Rate 28 mL/min (>60); Est Glom Filt Rate - Afr Amer 34 mL/min (>60); Estimated Creatinine Clearance 34.59 ml/min; Glucose 335 mg/dL (74-106); Sodium Level 136 mmol/L (136-145); Troponin-I HS 37 pg/mL (3.0-78.0)
--- NOTE | 2021-06-14 13:50 | CM.ED ---
Social Work This clinical social work therapist following up with patient and patient sister in room. Patient sister reports to be doing much better. Plan is for patient to be admitted to acute care setting. Support provided. Mariela BRYAN, CORKY
--- NOTE | 2021-06-14 14:41 | HP.PCM.HOS_ITS ---
Documented by User: Robel HUITRON 06/14/21 15:21 HPI - General General Date of Admission: 06/14/21 Date of Service: 06/14/21 Chief Complaint: Left sided facial numbness HPI Narrative YOSEPH PERSAUD is a 51-year-old male who presents to the ED at [facility] on 06/14/2021 with a chief complaint of left-sided facial numbness. Patient reports that for the past couple of days he has noticed that his face is gotten increasingly more numb. Denies any slurred speech, facial asymmetry, vision changes, headache, upper or lower extremity numbness/tingling, upper or lower extremity weakness. Past medical history is significant for CAD status post stent, DM 2, obesity, hyperlipidemia and hypertension. Patient is noncompliant with home medications. Patient's vital signs are significant for hypertension at 178/96 and tachypnea with a rate of 30 breaths/min. CBC shows WBCs at 6.0, hemoglobin at 9.9 and platelets at 253. BMP shows electrolytes within normal limits, creatinine at 2.55 and a BUN of 51. Patient glucose elevated at 335. [facility]LY [facility] Medical History Atherosclerotic heart disease of [place] coronary artery without angina pectoris Chronic diastolic (congestive) heart failure Depression Diabetes mellitus, type II Essential (primary) hypertension History of non-ST elevation myocardial infarction (NSTEMI) (03/15/20) History of stress test Hyperlipidemia Ischemic cardiomyopathy (06/2013) Obesity Partial nontraumatic amputation of right foot Pneumonia due to COVID-19 virus (03/14/20) Venous insufficiency Home Medications Mag-Ox 400 400 mg PO DAILY 09/28/14 [History Last Taken 12/20/18] aspirin 81 mg PO DAILY@0800 09/28/14 [History Last Taken 12/20/18] nitroglycerin 0.4 mg sublingual tablet 0.4 mg SUBLINGUAL Q5-15M PRN 04/20/17 [History Last Taken Unknown] atorvastatin 80 mg PO QHS 12/20/18 [History Last Taken 12/19/18] clopidogrel 75 mg PO DAILY #90 tab 12/25/18 [Rx Last Taken Unknown] glimepiride 2 mg tablet 2 mg PO QAM #90 tab 03/11/19 [Rx Last Taken Unknown] hydralazine 25 mg tablet 25 mg PO .COMPLEX #90 tab 09/08/19 [Rx Last Taken Unknown] hydralazine 50 mg tablet 50 mg PO .COMPLEX #90 tab 09/08/19 [Rx Last Taken Unknown] Trulicity 0.75 mg SUBCUT TH 08/21/20 [History Last Taken Unknown] insulin glargine 15 unit SC DAILY #0 ml 08/26/20 [Rx Last Taken Unknown] isosorbide mononitrate 60 mg tablet,extended release 24 hr 60 mg PO DAILY #90 tab 10/25/20 [Rx Last Taken Unknown] losartan 25 mg tablet 25 mg PO DAILY #90 tab 10/25/20 [Rx Last Taken Unknown] metoprolol succinate 100 mg tablet,extended release 24 hr 100 mg PO DAILY #90 tab 10/25/20 [Rx Last Taken Unknown] linezolid 600 mg PO Q12H 14 Days #28 tab 12/29/20 [Rx Last Taken Unknown] amlodipine 5 mg tablet 5 mg PO DAILY #90 tab 02/21/21 [Rx Last Taken Unknown] famotidine 20 mg PO DAILY 06/14/21 [History Last Taken Unknown] furosemide 40 mg PO BID 06/14/21 [History Last Taken Unknown] Allergy/AdvReac Type Severity Reaction Status Date / Time lisinopril AdvReac Intermediate Cough Verified 12/26/20 17:34 losartan AdvReac Intermediate cough Verified 12/26/20 17:34 Family History Father , Age 57 from [place] Myocardial infarction CAD (coronary artery disease) Sudden cardiac Mother Sick sinus syndrome Sister Diabetes Surgical History H/O cardiac catheterization History of coronary artery stent placement (01/02/19) Social History Smoking Status: Never smoker ROS Review of Systems ROS Unobtainable: Denies due to encephalopathy, due to endotracheal tube, due to mental condition, due to mental status or other Constitutional Constitutional: Denies anorexia, change in weight, chills, fatigue, fever(s), malaise, night sweats, weakness or other Eyes Eyes: Denies blurry vision, change in eye color, change in vision, discharge from eye(s), double vision, erythema, eye pain, loss of vision or other ENT HEENT: Denies abnormal hearing, dysphagia, ear pain, epistaxis, headache(s), hearing loss, nasal congestion, nasal discharge, post nasal drip, sinus pressure, sore throat or other Cardiovascular Cardiovascular: Denies chest pain, claudication, dyspnea on exertion, edema, lightheadedness, orthopnea, palpitations, paroxysmal nocturnal dyspnea, rapid heart rate, syncope or other Respiratory/Chest Respiratory/Chest: Denies cough, dyspnea, excessive phlegm production, hemoptysis, productive cough, shortness of breath at rest, shortness of breath with exertion, wheezing or other Gastrointestinal Gastrointestinal: Denies abdominal pain, coffee ground emesis, constipation, diarrhea, dyspepsia, hematemesis, hematochezia, loose stools, melena, nausea, vomiting or other Genitourinary Genitourinary: Denies burning urination, difficulty urinating, dysuria, hematuria, nocturia, urinary frequency, urinary hesitancy, urinary incontinence, urinary urgency or other Musculoskeletal Musculoskeletal: Denies arthralgias, back pain, joint pain, joint stiffness, joint swelling, myalgias, neck pain or other Neurologic Neurologic: Reports other Details: facial numbness ; Denies abnormal gait, abnormal speech, confusion, disequilibrium, dizziness, focal weakness, headache(s), numbness, paresthesias, seizure-like activity, seizures, syncope, tingling or tremor(s) Psychiatric Psychiatric: Denies anxiety, depression, homicidal ideation, suicidal ideation or other Endocrine Endocrinology: Denies change in body appearance, cold intolerance, excessive sweating, heat intolerance, polydipsia, polyuria or other Hematologic/Lymphatic Hematologic/Lymphatic: Denies anemia, easy bleeding, easy bruising, lymphadenopathy or other Allergic/Immunologic Allergic/Immunologic: Denies rhinitis, hives, eczemia, asthma or other Vital Signs Vital Signs Vital Signs: 06/14/21 11:53 06/14/21 11:54 06/14/21 12:00 Temperature 96.0 F L Temperature Source Temporal Pulse Rate 96 96 Respiratory Rate 23 H 24 H Blood Pressure 195/102 H 192/110 H Blood Pressure Mean 133 137 Pulse Ox 87 93 Oxygen Delivery Method Nasal Cannula Room Air Nasal Cannula Oxygen Flow Rate (L/min) 2 2 06/14/21 12:21 06/14/21 13:00 06/14/21 13:30 Temperature Temperature Source Pulse Rate 93 95 91 Respiratory Rate 27 H 23 H 30 H Blood Pressure 190/104 H 185/102 H 178/96 H Blood Pressure Mean 132 129 123 Pulse Ox 93 94 95 Oxygen Delivery Method Nasal Cannula Nasal Cannula Nasal Cannula Oxygen Flow Rate (L/min) 2 2 06/14/21 13:57 Temperature 96.0 F L Temperature Source Temporal Pulse Rate 91 Respiratory Rate 30 H Blood Pressure 178/96 H Blood Pressure Mean 123 Pulse Ox 95 Oxygen Delivery Method Nasal Cannula Oxygen Flow Rate (L/min) 2 Weight Weight: 318 lb 2.032 oz Body Mass Index (BMI) 44.4 Physical Exam Const alert and oriented x3 General Appearance: cooperative HEENT normocephalic, head/scalp atraumatic and hearing grossly normal bilaterally Eyes PERRL and conjunctivae normal Neck no lymphadenopathy, supple and no JVD Resp normal respiratory effort, no retractions and no use of accessory muscles Cardio regular rate, regular rhythm and no JVD GI normal to inspection, nondistended, normoactive bowel sounds Extremity Extremity Narrative: Patient with partial amputation to the first digit about the right foot. Stage II ulcer about the lateral heel of the left foot. Skin Skin Narrative: See extremity. Neuro CN's II-XII intact bilaterally Psych affect normal Results Lab / Micro Data Result Diagrams: 06/14/21 12:00 06/14/21 12:00 Labs: Laboratory Results - last 24 hr 06/14/21 12:00: WBC 6.0, RBC 3.80 L, Hgb 9.9 L, Hct 32.2 L, MCV 84.7, MCH 26.1 L , MCHC 30.7 L, RDW Std Deviation 49.0 H, RDW Coeff of Rajendra 15.9 H, Plt Count 253, MPV 10.9, Immature Gran % (Auto) 0.300, Neut % (Auto) 77.8 H, Lymph % (Auto) 10.3 L, [place] % (Auto) 8.9, Eos % (Auto) 2.0, Baso % (Auto) 0.7, Absolute Neuts (auto) 4.7, Absolute Lymphs (auto) 0.62 L, Nucleated RBC % 0 06/14/21 12:00: PT 14.7, INR 1.2, APTT 28.8 06/14/21 12:00: Sodium 136, Potassium 4.0, Chloride 105, Carbon Dioxide 29.0, Anion Gap 2 L, BUN 51 H, Creatinine 2.55 H, Estim Creat Clear Calc 34.59, Est GFR (MDRD) Af Amer 34 L, Est GFR (MDRD) Non-Af 28 L, BUN/Creatinine Ratio 20.0, Glucose 335 H, Calcium 9.0, Troponin I High Sens [address] 06/14/21 11:53 IMPRESSION: Chronic involutional changes of the brain. Electronically Signed: Surinder Pedersen MD at 12:07 EST , ADDENDUM: 06/14/21 1219 IMPRESSION: Chronic involutional changes of the brain. N.B. : The above Results were Read Back by Surinder Pedersen MD to AD luis, and understanding confirmed on 06/14/2021 12:12:43 (ET). Electronically Signed: Surinder Pedersen MD at 12:07 EST , Head/Neck CTA 06/14/21 11:54 IMPRESSION: Minimal plaque at the carotid bifurcations bilaterally causing less than 50% luminal stenosis. Coronary artery calcification. Findings suggestive of bilateral pleural effusions right greater than left. Electronically Signed: Dario Ponce MD at 12:22 EST , ADDENDUM: 06/14/21 1232 IMPRESSION: Minimal plaque at the carotid bifurcations bilaterally causing less than 50% luminal stenosis. Coronary artery calcification. Findings suggestive of bilateral pleural effusions right greater than left. N.B. : The above Results were Read Back by Dario Ponce MD to Dr Ann MD, and understanding confirmed on 06/14/2021 12:25:18 (ET). Electronically Signed: Dario Ponce MD at 12:22 EST , Chest X-Ray 06/14/21 12:30 IMPRESSION: Poor inspiration with some bibasilar atelectasis. Electronically Signed: Surinder Pedersen MD at 12:49 EST , Assessment & Plan Assessment/Plan (1) Venous insufficiency: (2) Type 2 diabetes mellitus with foot ulcer: (3) Non-pressure 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 of bone: (4) Diabetic infection of left foot: (5) Stroke-like symptoms: PLAN: Patient is a 51-year-old male who was admitted to [facility] on 06/14/2021 with a chief complaint of left-sided facial numbness. Patient will be admitted for evaluation and management of strokelike symptoms. 1)Stroke like symptoms Patient presents with a 3-day history of left-sided facial numbness. Patient denies, and does not demonstrate, any other focal neurological deficits to include slurred speech, facial asymmetry, numbness/tingling or weakness about the upper or lower extremities. Patient denies any headache. Past medical history is significant for hyperlipidemia, hypertension, diabetes mellitus type 2 and CAD status post stent. NIH stroke scale in the ED was 1. Brain CT without acute ischemia or infarction. Head/neck CTA demonstrates minimal plaque at the carotid bifurcations bilaterally with less than 50% stenosis. Plan; placed on PCU for observation, continue serial NIH's, obtain brain MRI, PT/OT eval ordered, case management consult ordered, continue aspirin and statin. 2) diabetic ulcer about the left heel Patient with a nonpurulent ulcer about the left heel. Pulses difficult to appreciate about the lower extremities bilaterally, and patient's feet are cold to touch. Patient was admitted for necrosis about the left foot in November 2020, wound cultures grew Streptococcus disklike TA, corynebacterium and Staphylococcus. Patient was placed on 6 weeks of IV Augmentin and linezolid, patient noncompliant with podiatry care. Podiatry consult ordered, plain x-rays ordered, vascular studies ordered. 3) hypertensive urgency Currently 178/96, due to noncompliance with home medications. Will continue home BP meds and adjust as necessary. 4) hyperglycemia secondary to DM2 Sugars currently 350, likely due to noncompliance with home medications. Will initiate high-dose scale insulin and titrate as needed. 5) CORA on CKD stage IIIa Creatinine currently 2.55. Baseline appears around 2. Patient was given contrast while in the ED. Will initiate fluids and monitor BMP. 6) CAD status post stent Patient with prior history of NSTEMI in 2013 and 2019 with stent to the PCI?TREY?mid LAD. Continue aspirin,statin, Imdur and beta-kane. 7) diastolic CHF Not in acute exacerbation. Echocardiogram from November 2020 demonstrated normal LV size and systolic function, concentric LVH, an EF of 55% and stage I diastolic dysfunction. We will continue home metoprolol, losartan and Lasix. DVT prophylaxis - Heparin Patient seen by Robel Hendrix PA-C, under the supervision of Dr. Oliver. Documented by User: Dr. Giuseppe Oliver DO 06/14/21 19:04 HPI - General General Date of Admission: 06/14/21 [facility] Medical History Atherosclerotic heart disease of [place] coronary artery without angina pectoris Chronic diastolic (congestive) heart failure Depression Diabetes mellitus, type II Essential (primary) hypertension History of non-ST elevation myocardial infarction (NSTEMI) (03/15/20) History of stress test Hyperlipidemia Ischemic cardiomyopathy (06/2013) Obesity Partial nontraumatic amputation of right foot Pneumonia due to COVID-19 virus (03/14/20) Venous insufficiency Home Medications Mag-Ox 400 400 mg PO DAILY 09/28/14 [History Last Taken 12/20/18] aspirin 81 mg PO DAILY@0800 09/28/14 [History Last Taken 12/20/18] nitroglycerin 0.4 mg sublingual tablet 0.4 mg SUBLINGUAL Q5-15M PRN 04/20/17 [History Last Taken Unknown] atorvastatin 80 mg PO QHS 12/20/18 [History Last Taken 12/19/18] clopidogrel 75 mg PO DAILY #90 tab 12/25/18 [Rx Last Taken Unknown] glimepiride 2 mg tablet 2 mg PO QAM #90 tab 03/11/19 [Rx Last Taken Unknown] hydralazine 25 mg tablet 25 mg PO .COMPLEX #90 tab 09/08/19 [Rx Last Taken Unknown] hydralazine 50 mg tablet 50 mg PO .COMPLEX #90 tab 09/08/19 [Rx Last Taken Unknown] Trulicity 0.75 mg SUBCUT TH 08/21/20 [History Last Taken Unknown] insulin glargine 15 unit SC DAILY #0 ml 08/26/20 [Rx Last Taken Unknown] isosorbide mononitrate 60 mg tablet,extended release 24 hr 60 mg PO DAILY #90 tab 10/25/20 [Rx Last Taken Unknown] losartan 25 mg tablet 25 mg PO DAILY #90 tab 10/25/20 [Rx Last Taken Unknown] metoprolol succinate 100 mg tablet,extended release 24 hr 100 mg PO DAILY #90 tab 10/25/20 [Rx Last Taken Unknown] linezolid 600 mg PO Q12H 14 Days #28 tab 12/29/20 [Rx Last Taken Unknown] amlodipine 5 mg tablet 5 mg PO DAILY #90 tab 02/21/21 [Rx Last Taken Unknown] famotidine 20 mg PO DAILY 06/14/21 [History Last Taken Unknown] furosemide 40 mg PO BID 06/14/21 [History Last Taken Unknown] Allergy/AdvReac Type Severity Reaction Status Date / Time lisinopril AdvReac Intermediate Cough Verified 12/26/20 17:34 losartan AdvReac Intermediate cough Verified 12/26/20 17:34 Family History Father , Age 57 from [place] Myocardial infarction CAD (coronary artery disease) Sudden cardiac Mother Sick sinus syndrome Sister Diabetes Surgical History H/O cardiac catheterization History of coronary artery stent placement (01/02/19) Social History Smoking Status: Never smoker Results Lab / Micro Data Result Diagrams: 06/14/21 12:00 06/14/21 12:00 Charges/Coding Addendum Addendum: Patient was seen and examined independently of Robel Hendrix, he came to the emergency room today at [facility] complaining of tingling and numbness over the left facial area. Patient has been noncompliant with his medications and his office visits, he states he is not taking any of his medic ations in 2 months-he gives me no exact reason for why he has not been compliant. I also talked with his PCPs office (Dr. Ricks) and he has not been seen there since late last year for an office visit. Finally, I also talked with podiatry who he was supposed to follow-up with in the wound center, patient has not been seen since late last January for his left heel wound. When asked about it, patient stated that he thought it would heal by itself. On examination he appeared older than his stated age, he is a poor informant, patient exhibits poor understanding of his medical condition.. Vital signs as documented. Skin warm and dry and without overt rashes, there is an open area on the lateral aspect of the patient's left heel which is approximately 3 to 4 cm in diameter, there is no discharge from the area in the area appears to be nonreddened. Neck without JVD, neck was supple, trachea midline, thyroid was normal. Lungs clear bilaterally, normal air movement was noted. Heart exam no table for regular rhythm, normal sounds and absence of murmurs, rubs or gallops. Abdomen unremarkable and without evidence of organomegaly, masses, or abdominal aortic enlargement. Bowel sounds are present, abdomen is not distended. Extremities nonedematous, no cyanosis was noted, no clubbing was noted patient has a previous big toe amputation on the right foot, again there is a full- thickness ulceration noted over the patient's left heel, there is no odor from this wound and there is no discharge noted.. Neuro: Cranial nerves II through XII are grossly intact, no focal motor deficits were noted, sensation to light touch and pinprick intact, motor exam 5/5 throughout. Psych: Patient is alert and oriented x3, he does not appear anxious or depressed, he does not appear agitated. #1 left facial paresthesias-etiology unclear, patient was placed in observation status on PCU, an MRI was ordered for the patient but he refused to cooperate with this saying that he could not breathe lying flat even though his pulse ox was normal on room air. Patient states he has not been able to lie flat at home and that he sleeps in a recliner. I will reorder the patient's CT of his brain without contrast tomorrow, at the time he was admitted, patient's tingling and numbness had subsided and he was having no symptoms suggestive of stroke. Patient's NIH score in the emergency room was 1. Imaging studies done in the emergency room did not show any evidence of stroke or bleed. I will continue NIH stroke scores for now although I think it is unlikely that the patient has had a CVA. I do not feel the patient needs an echocardiogram done at this time. #2 type 2 diabetes-under poor control secondary to noncompliance with medical regimen, this will be a challenge to get the patient to be more proactive in controlling his diabetes. I have placed the patient on Lantus as well as short acting insulin and he will be monitored and sliding scale insulin will be given. #3 ulceration to left heel-due to poor compliance with medical regimen, patient has been lost to follow-up, I have elected to have podiatry see the patient while he is in the hospital here. #4 chronic kidney disease stage IV-unfortunately the patient was given IV contrast by the emergency room due to the fact he underwent a CTA of the head and neck. He evidently told the emergency room physician he had no problems w ith his kidneys. Patient's labs will need to be monitored, I will administer fluids overnight. Patient is on Lasix at home, I do not feel comfortable and holding this at this time due to the patient's complaint of shortness of breath. #5 essential hypertension-I have placed the patient on some of his home medications for blood pressure he was supposed to be taking, again he states that he has not taken anything for 2 months. #6 coronary artery disease-patient will remain on Plavix, aspirin, and a statin #7 hyperlipidemia-patient is on a statin #8 morbid obesity-complicates care and recovery, nutritional services will see the patient, I suspect that he is noncompliant with his diet at home, I do not feel the patient needs a hemoglobin A1c as it will surely be elevated. #9 noncompliance with medical regimen-this is been a chronic issue with the patient, I am not sure if he is unaware of his serious medical conditions due to his educational level or he is just noncompliant with medical advice even though he knows that it could cause him harm. This will be a challenge going forward, I talked briefly with the patient's son by phone and he states that he prepares the patient's medications to take but he just does not take them at home. I have reviewed Robel Hendrix's history and physical including his medical assessment and plan of care and endorse it with the above additions. Total clinical time addressing the patient's issues, reviewing his medical data, and collaborating with the patient's care team: 70 minutes Visit Charges OBSV E&M: 12419 Initial observation care L3
--- NOTE | 2021-06-14 15:25 | RAD_ITS ---
EXAM: XR LEFT FOOT COMPLETE, 3 OR MORE VIEWS CLINICAL INDICATION: Diabetic ulcer TECHNIQUE: Frontal, lateral and oblique views of the left foot. This report was created using [employer] report generation technology. COMPARISON: Dec 26 2020 5:52pm FINDINGS: BONES/JOINTS: There is an enthesophyte involving the posterior superior calcaneus at the site of insertion of the Achilles tendon. No acute fracture. No subluxation. Normal alignment. Preservation of the joint space. No sclerotic or destructive changes observed. SOFT TISSUES: There is non specific soft tissue swelling. Lucency in the plantar aspect of the foot at the level of the calcaneus. Soft tissue ulceration or fractures process should be considered. No radiopaque foreign body. VASCULATURE: There are atherosclerotic vascular calcifications. RAD/Foot min 3 Views IMPRESSION: There is non specific soft tissue swelling. Lucency in the plantar aspect of the foot at the level of the calcaneus. Soft tissue ulceration or fractures process should be considered. Electronically Signed: Sedrick Og MD at 15:53 EST ,
--- NOTE | 2021-06-14 15:44 | ART_ITS ---
Reason For Study: Ulcer Procedure A bilateral lower extremity continuous wave Doppler with analog waveform analysis,segmental pressures,and ankle brachial indexes without exercise. Left Segmental Pressures Left brachial= 136mmHg. Left posterior tibial artery = 1.46mmHg. Left dorsalis pedis artery = 1.51mmHg. Left digit = 0.81 mmHg. Right Segmental Pressures Right brachial= 141mmHg. Right posterior tibial artery = >254mmHg. Right dorsalis pedis artery = >254mmHg. Indices The right ankle brachial index by the posterior tibial artery is NC. The right ankle brachial index by the dorsalis pedis is NC. The left ankle brachial index by the posterior tibial artery is 1.46. The left ankle brachial index by the dorsalis pedis is 1.51. The left digital-brachial index is 0.81. VL/Lower Ext Art Exam w/o Exercis Interpretation Summary Right lower extremity noncalculable ankle-brachial indices secondary to noncomp ressible vessels. The right posterior tibial and dorsalis pedis demonstrate triphasic Doppler wavefor ms which would suggest medial calcification of the vessel wall but maintain blood flow. Left lower extremity demonstrates the PT and DP ankle-brachial index of 1.46 an d 1.51 respectively which likely are artificially slightly elevated due to the compressibility of t he vessel. The left posterior tibial and dorsalis pedis Doppler waveforms are triphasic which is no rmal. The left digital brachial index is normal at 0.81 Previous study of August 23, 2020 suggested that the right ankle brachial indices were obtainable at that time. Doppler waveforms were triphasic at that time as they are now. Ordering Physician: Robel Hendrix Referring Physician: Joseph Ricks Performed By: Jennifer Cross RDCS/RVT
[2021-06-14] MEDS: 0.9% Normal Saline 1,000 ML 100 ML IV (16:09)
[2021-06-14] MEDS: Losartan Potassium 25 MG Tablet PO (16:10)
[2021-06-14] MEDS: Isosorbide Mononitrate 60 MG Tablet PO (16:10)
[2021-06-14] MEDS: amLODIPine 5 MG Tablet PO (16:10)
[2021-06-14] MEDS: Furosemide 40 MG Tablet PO (16:12)
[2021-06-14] MEDS: Heparin Injection (Vial) 5,000 UNIT/ML VIAL 5000 UNIT SC ×2 (16:12→22:34)
--- NOTE | 2021-06-14 16:57 | PCM.CONS.GEN ---
Assessment & Plan Assessment/Plan (1) Non-pressure chronic ulcer of other part of left foot with fat layer exposed: PLAN: Patient examined and evaluated, all findings cussed with patient in detail Radiographs were ordered and reviewed no evidence of any osseous changes suggestive of osteomyelitis at this time Patient's labs and vitals and exam did not yield any concern for acute or chronic infection at this time with regards to his left heel ulcer Patient's left heel ulcer was excisionally debrided down to including level of subcutaneous tissue of all nonviable tissue using a 15 blade. No anesthesia required due to peripheral neuropathy. Hemostasis obtained with light compression. Patient tolerated procedure well. Wound was dressed with Betadine paint 4 x 4's Kerlix and tape. At this time I recommend every other day versus every third day dressing changes. I recommend nonweightbearing to left lower extremity to allow for healing. I recommend dispensing of a Cam walking boot to offload the heel allow for touch weightbearing for transfer purposes. I recommend offloading heel pad while patient remains supine position in the bed to prevent any pressure necrosis to the site. As mentioned previously have no concerns for acute or chronic infections, so I do not feel antibiotic treatment is recommended. Patient's previous vascular studies in 2020 yielded adequate blood flow, these were reordered; however, I do not feel peripheral arterial disease is limiting healing at this time. Healing is predominantly limited to lack of adequate offloading, frequent wound care, poorly controlled diabetes. We will follow up with patient on if he is still in the hospital otherwise he will follow up with me in the wound care center at which time we will consider total contact casting to offload his left heel ulceration. (2) Type 2 diabetes mellitus with diabetic neuropathy, unspecified: HPI Consult Data Date of Consult: 06/14/21 HPI Narrative HPI Narrative: YOSEPH PERSAUD, is a 51 M who presents for stroke work-up was seen bedside for a chronic left heel ulceration has been present for greater than 6 months. Patient was being treated at the wound care center, but personally discontinued his visits. Patient denies any fever chills nausea vomiting chest pain calf pain shortness of breath. He notes that at home he has not been offloading the site with his walking boot nor has he been putting a dressing on the site. Patient is a type II diabetic poorly controlled with neuropathy and has a history of right hallux amputation. He denies any pain to his wound site and has no other complaints at this time. [facility] Medical History Atherosclerotic heart disease of [place] coronary artery without angina pectoris Chronic diastolic (congestive) heart failure Depression Diabetes mellitus, type II Essential (primary) hypertension History of non-ST elevation myocardial infarction (NSTEMI) (03/15/20) History of stress test Hyperlipidemia Ischemic cardiomyopathy (06/2013) Obesity Partial nontraumatic amputation of right foot Pneumonia due to COVID-19 virus (03/14/20) Venous insufficiency Home Medications Mag-Ox 400 400 mg PO DAILY 09/28/14 [History Last Taken 12/20/18] aspirin 81 mg PO DAILY@0800 09/28/14 [History Last Taken 12/20/18] nitroglycerin 0.4 mg sublingual tablet 0.4 mg SUBLINGUAL Q5-15M PRN 04/20/17 [History Last Taken Unknown] atorvastatin 80 mg PO QHS 12/20/18 [History Last Taken 12/19/18] clopidogrel 75 mg PO DAILY #90 tab 12/25/18 [Rx Last Taken Unknown] glimepiride 2 mg tablet 2 mg PO QAM #90 tab 03/11/19 [Rx Last Taken Unknown] hydralazine 25 mg tablet 25 mg PO .COMPLEX #90 tab 09/08/19 [Rx Last Taken Unknown] hydralazine 50 mg tablet 50 mg PO .COMPLEX #90 tab 09/08/19 [Rx Last Taken Unknown] Trulicity 0.75 mg SUBCUT TH 08/21/20 [History Last Taken Unknown] insulin glargine 15 unit SC DAILY #0 ml 08/26/20 [Rx Last Taken Unknown] isosorbide mononitrate 60 mg tablet,extended release 24 hr 60 mg PO DAILY #90 tab 10/25/20 [Rx Last Taken Unknown] losartan 25 mg tablet 25 mg PO DAILY #90 tab 10/25/20 [Rx Last Taken Unknown] metoprolol succinate 100 mg tablet,extended release 24 hr 100 mg PO DAILY #90 tab 10/25/20 [Rx Last Taken Unknown] linezolid 600 mg PO Q12H 14 Days #28 tab 12/29/20 [Rx Last Taken Unknown] amlodipine 5 mg tablet 5 mg PO DAILY #90 tab 02/21/21 [Rx Last Taken Unknown] famotidine 20 mg PO DAILY 06/14/21 [History Last Taken Unknown] furosemide 40 mg PO BID 06/14/21 [History Last Taken Unknown] Allergy/AdvReac Type Severity Reaction Status Date / Time lisinopril AdvReac Intermediate Cough Verified 12/26/20 17:34 losartan AdvReac Intermediate cough Verified 12/26/20 17:34 Family History Father , Age 57 from [place] Myocardial infarction CAD (coronary artery disease) Sudden cardiac Mother Sick sinus syndrome Sister Diabetes Surgical History H/O cardiac catheterization History of coronary artery stent placement (01/02/19) Social History Smoking Status: Never smoker Physical Exam Narrative Patient is alert oriented to person place and time. Patient currently ambulates unassisted Vascular: There is noted be pitting edema to bilateral lower extremity. Dorsalis pedis and posterior tibial pulses are palpable 2 out of 4 to bilateral lower extremity. Digital hair growth present bilaterally. Foot is warm to palpation. Neurologic: Light touch protective sensation absent to bilateral feet. No evidence of clonus or Babinski sign at this time. Dermatologic: Full-thickness ulceration noted to plantar lateral heel, significant hyperkeratosis and fibronecrotic base noted. No deep probing at this time. Predebridement the wound measured to be 2.5 x 2.5 x 0.5 cm post debridement the wound was 3.0 x 3.0 x 0.8 cm. No evidence of infection or undermining or deep probing. Musculoskeletal: Absent right hallux no pain with calf squeeze muscular strength 5 out of 5 to bilateral lower extremity compartment. No gross musculoskeletal deformity contributing to wound formation. Lab / Micro Data Result Diagrams: 06/14/21 12:00 06/14/21 12:00 Labs: Laboratory Results - last 24 hr 06/14/21 12:00: WBC 6.0, RBC 3.80 L, Hgb 9.9 L, Hct 32.2 L, MCV 84.7, MCH 26.1 L, MCHC 30.7 L, RDW Std Deviation 49.0 H, RDW Coeff of Rajendra 15.9 H, Plt Count 253, MPV 10.9, Immature Gran % (Auto) 0.300, Neut % (Auto) 77.8 H, Lymph % (Auto) 10.3 L, [place] % (Auto) 8.9, Eos % (Auto) 2.0, Baso % (Auto) 0.7, Absolute Neuts (auto) 4.7, Absolute Lymphs (auto) 0.62 L, Nucleated RBC % 0 06/14/21 12:00: PT 14.7, INR 1.2, APTT 28.8 06/14/21 12:00: Sodium 136, Potassium 4.0, Chloride 105, Carbon Dioxide 29.0, Anion Gap 2 L, BUN 51 H, Creatinine 2.55 H, Estim Creat Clear Calc 34.59, Est GFR (MDRD) Af Amer 34 L, Est GFR (MDRD) Non-Af 28 L, BUN/Creatinine Ratio 20.0, Glucose 335 H, Calcium 9.0, Troponin I High Sens [address] 06/14/21 11:53 IMPRESSION: Chronic involutional changes of the brain. Electronically Signed: Surinder Pdeersen MD at 12:07 EST , ADDENDUM: 06/14/21 1219 IMPRESSION: Chronic involutional changes of the brain. N.B. : The above Results were Read Back by Surinder Pedersen MD to AD luis, and understanding confirmed on 06/14/2021 12:12:43 (ET). Electronically Signed: Surinder Pedersen MD at 12:07 EST , Head/Neck CTA 06/14/21 11:54 IMPRESSION: Minimal plaque at the carotid bifurcations bilaterally causing less than 50% luminal stenosis. Coronary artery calcification. Findings suggestive of bilateral pleural effusions right greater than left. Electronically Signed: Dario Ponce MD at 12:22 EST , ADDENDUM: 06/14/21 1232 IMPRESSION: Minimal plaque at the carotid bifurcations bilaterally causing less than 50% luminal stenosis. Coronary artery calcification. Findings suggestive of bilateral pleural effusions right greater than left. N.B. : The above Results were Read Back by Dario Ponce MD to Dr Ann MD, and understanding confirmed on 06/14/2021 12:25:18 (ET). Electronically Signed: Dario Ponce MD at 12:22 EST , Chest X-Ray 06/14/21 12:30 IMPRESSION: Poor inspiration with some bibasilar atelectasis. Electronically Signed: Surinder Pedersen MD at 12:49 EST , Foot X-Ray 06/14/21 15:25 IMPRESSION: There is non specific soft tissue swelling. Lucency in the plantar aspect of the foot at the level of the calcaneus. Soft tissue ulceration or fractures process should be considered. Electronically Signed: Sedrick Og MD at 15:53 EST ,
[2021-06-14] MEDS: Insulin Lispro 100 UNIT/ML INSULN.PEN SC ×2 (17:36→22:27)
[2021-06-14] MEDS: hydrALAZINE 50 MG Tablet PO (17:46)
[2021-06-14] MEDS: hydrALAZINE 25 MG Tablet PO (17:46)
[2021-06-14 18:02] LABS: Bedside Glucose 327 mg/dL (74-106)
[2021-06-14] MEDS: Atorvastatin Calcium 80 MG Tablet PO (22:29)
[2021-06-14 22:36] LABS: Bedside Glucose 187 mg/dL (74-106)
[2021-06-15] VITALS (17 sets, daily range): BP systolic 121–156; BP diastolic 66–87; PULSE 79–89; RESP 16–18; TEMP 36.7–37.2; O2SAT 92–97; BMI 44.4
[2021-06-15] MEDS: 0.9% Normal Saline 1,000 ML 100 ML IV (02:09)
[2021-06-15] MEDS: Heparin Injection (Vial) 5,000 UNIT/ML VIAL 5000 UNIT SC ×3 (05:35→22:52)
[2021-06-15 06:38] LABS: Anion Gap 3 (5-15); BUN 51 mg/dL (7-18); BUN/Creat Ratio 20.3 RATIO (10-20); Calcium,Total 8.6 mg/dL (8.5-10.1); Chloride 110 mmol/L (98-107); Cholesterol 205 mg/dL (200); Creatinine, Serum 2.51 mg/dL (0.70-1.30); EST Glomerular Filtration Rate 29 mL/min (>60); Est Glom Filt Rate - Afr Amer 35 mL/min (>60); Estimated Creatinine Clearance 36.25 ml/min; Glucose 106 mg/dL (74-106); High Density Lipoprotein 39 mg/dL; Potassium 4.1 mmol/L (3.5-5.1); Sodium Level 142 mmol/L (136-145); Triglycerides 119 mg/dL; Very Low Density Lipoprotein 24 mg/dL (5-40)
--- NOTE | 2021-06-15 07:08 | CT_ITS ---
STUDY: CT BRAIN WITHOUT CONTRAST REASON FOR EXAM: Male, 51 years old. Cannot get MRI to assess stroke. RADIATION DOSAGE (If Supplied By Facility): CTDIvol = ( 44.99 ) mGy, DLP = ( 880.47 ) mGycm TECHNIQUE: Transaxial CT imaging of the brain was performed without administration of intravenous contrast material. Individualized dose optimization techniques were used for this CT. COMPARISON: Comparison is made with prior study 06/14/2021. FINDINGS: Normal soft tissue structures. Normal calvarium. There is disproportionate enlargement of the lateral and third ventricles, as compared to the extra-axial spaces. The findings suggest normal pressure hydrocephalus (NPH). There are areas of decreased attenuation within the white matter tracts of the supratentorial brain, consistent with microvascular disease changes. Stable focal area of encephalomalacia in the right posterior frontal temporal lobe. There are small punctate calcifications of the basal ganglia which are seen in the aging brain as a normal variant. Normal brainstem. Normal cerebellum. There is no intracranial hemorrhage. There are no findings of an acute ischemic infarction. Opacification of the right maxillary sinus. 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 Stable encephalomalacia in the posterior right frontal temporal lobe. Electronically Signed: Dario Ponce MD at 9:34 EST ,
[2021-06-15 07:11] LABS: Bedside Glucose 101 mg/dL (74-106)
[2021-06-15] MEDS: Furosemide 40 MG Tablet PO ×2 (09:07→17:59)
[2021-06-15] MEDS: Magnesium Chloride 64 MG Delay Rel.Tablet 128 MG PO (09:07)
[2021-06-15] MEDS: hydrALAZINE 25 MG Tablet PO ×2 (09:07→22:52)
[2021-06-15] MEDS: hydrALAZINE 50 MG Tablet PO ×2 (09:07→22:51)
[2021-06-15] MEDS: Metoprolol(XL)Succ 100 MG Tablet PO (09:08)
[2021-06-15] MEDS: Aspirin 81 MG TAB.CHEW PO (09:08)
[2021-06-15] MEDS: Losartan Potassium 25 MG Tablet PO (09:11)
[2021-06-15] MEDS: amLODIPine 5 MG Tablet PO (09:11)
[2021-06-15] MEDS: Famotidine 20 MG Tablet PO (09:15)
[2021-06-15] MEDS: Clopidogrel Bisulfate 75 MG Tablet PO (09:17)
[2021-06-15] MEDS: Isosorbide Mononitrate 60 MG Tablet PO (09:59)
--- NOTE | 2021-06-15 10:38 | CASEMGMT ---
SW spoke with therapy and patient could not maintain non-weight bearing status while ambulating. Patient will need SNF. SW met with patient and his son. Introduced self and role at [facility]. Both confirmed patient will do what he has to do including going to a SNF. SW provided a list of SNF providers including quality and resource use data and consistent with the patient?s preferred geographic region, medical needs, and insurance network. SW explained the facilities that CYNTHIA highlighted in pink are the ones that take patient's insurance. Patient's son asked about [facility] TCU. SW told them SW can check to see if there are beds available. SW also told both patient and his son that SW will check on his benefits for group home facility. SW called [facility] and patient's SNF benefits are as follows. Patient is covered at 85% after deductible which is $800. The max out of pocket is $3,800. Nothing has been met for deductible or max out of pocket. SW will let patient know this information. CYNTHIA also called Mary in TCU and made referral. She will review patient's chart. Georgiana MOHAMUD
[2021-06-15] MEDS: Doxycycline 100 MG CAPSULE PO ×2 (11:08→22:51)
--- NOTE | 2021-06-15 11:21 | CASEMGMT ---
[facility] TCU can accept patient. Mary will start the pre-cert once therapy's notes are in the computer. CYNTHIA let patient know this information. CYNTHIA also updated physician. Plan: [facility] pending pre-cert. Georgiana MOHAMUD
--- NOTE | 2021-06-15 11:28 | CON.PCM_ITS ---
Assessment & Plan Assessment/Plan (1) Neck abscess: PLAN: I have been consulted in conjunction with Dr. Pineda. He will independently evaluate this patient. I have discussed this patient with Dr. Pineda. I am recommending an incision and drainage of the right neck abscess. Patient is currently on Plavix and aspirin due to cardiac stents. Patient is also a diabetic which complicates the healing process. Dr. Pineda will determine if the patient will need an operating room procedure or if this may be accomplished at bedside. Procedure details, risks and benefits have been explained to the patient. Patient has had the opportunity to ask and have questions answered. Patient verbally understands and agrees with the plan. Thank you for the opportunity to participate in this patient's care. HPI Consult Data Date of Consult: 06/15/21 HPI Narrative HPI Narrative: YOSEPH PERSAUD, is a 51 M who presents with stroke-like symptoms specifically numbness of left-sided face. CT scan of the brain ruled out a stroke. Patient was also noted to have ulceration of the left foot. He is an uncontrolled diabetic. He states he does not follow-up with doctors. He is unsure what his blood glucose runs. He noted approximately 1 week ago, he had a lump appear on the right side of the neck. He thought this may be an infected hair. he attempted to squeeze the area with no success of drainage. He noted the lump has increased in size. He denies having previous abscesses. He denies drainage from the area. He has not been evaluated for this abscess. He is not on antibiotics. Upon arrival to the ED his blood glucose was 335. Today, his blood glucose is 101. [facility] Medical History Atherosclerotic heart disease of [place] coronary artery without angina pectoris Chronic diastolic (congestive) heart failure Depression Diabetes mellitus, type II Essential (primary) hypertension History of non-ST elevation myocardial infarction (NSTEMI) (03/15/20) History of stress test Hyperlipidemia Ischemic cardiomyopathy (06/2013) Obesity Partial nontraumatic amputation of right foot Pneumonia due to COVID-19 virus (03/14/20) Venous insufficiency Home Medications Mag-Ox 400 400 mg PO DAILY 09/28/14 [History Last Taken 12/20/18] aspirin 81 mg PO DAILY@0800 06/22/15 [History Last Taken 12/20/18] nitroglycerin 0.4 mg sublingual tablet 0.4 mg SUBLINGUAL Q5-15M PRN 04/20/17 [History Last Taken Unknown] atorvastatin 80 mg PO QHS 12/20/18 [History Last Taken 12/19/18] clopidogrel 75 mg PO DAILY #90 tab 12/25/18 [Rx Last Taken Unknown] glimepiride 2 mg tablet 2 mg PO QAM #90 tab 03/11/19 [Rx Last Taken Unknown] hydralazine 25 mg tablet 25 mg PO .COMPLEX #90 tab 09/08/19 [Rx Last Taken Unknown] hydralazine 50 mg tablet 50 mg PO .COMPLEX #90 tab 09/08/19 [Rx Last Taken Unknown] Trulicity 0.75 mg SUBCUT TH 08/21/20 [History Last Taken Unknown] insulin glargine 15 unit SC DAILY #0 ml 08/26/20 [Rx Last Taken Unknown] isosorbide mononitrate 60 mg tablet,extended release 24 hr 60 mg PO DAILY #90 tab 10/25/20 [Rx Last Taken Unknown] losartan 25 mg tablet 25 mg PO DAILY #90 tab 10/25/20 [Rx Last Taken Unknown] metoprolol succinate 100 mg tablet,extended release 24 hr 100 mg PO DAILY #90 tab 10/25/20 [Rx Last Taken Unknown] linezolid 600 mg PO Q12H 14 Days #28 tab 12/29/20 [Rx Last Taken Unknown] amlodipine 5 mg tablet 5 mg PO DAILY #90 tab 02/21/21 [Rx Last Taken Unknown] famotidine 20 mg PO DAILY 06/14/21 [History Last Taken Unknown] furosemide 40 mg PO BID 06/14/21 [History Last Taken Unknown] Allergy/AdvReac Type Severity Reaction Status Date / Time lisinopril AdvReac Intermediate Cough Verified 12/26/20 17:34 losartan AdvReac Intermediate cough Verified 12/26/20 17:34 Family History Father , Age 57 from [place] Myocardial infarction CAD (coronary artery disease) Sudden cardiac Mother Sick sinus syndrome Sister Diabetes Surgical History H/O cardiac catheterization History of coronary artery stent placement (01/02/19) Social History Smoking Status: Never smoker ROS Constitutional Constitutional: Reports systems reviewed and no addt'l complaints, except as documented Eyes Eyes: Reports systems reviewed and no addt'l complaints, except as documented ENT HEENT: Reports systems reviewed and no addt'l complaints, except as documented Cardiovascular Cardiovascular: Reports systems reviewed and no addt'l complaints, except as documented Respiratory/Chest Respiratory/Chest: Reports systems reviewed and no addt'l complaints, except as documented Gastrointestinal Gastrointestinal: Reports systems reviewed and no addt'l complaints, except as documented Genitourinary Genitourinary: Reports systems reviewed and no addt'l complaints, except as do cumented Musculoskeletal Musculoskeletal: Reports systems reviewed and no addt'l complaints, except as documented Integumentary Integumentary: Reports systems reviewed and no addt'l complaints, except as documented Neurologic Neurologic: Reports systems reviewed and no addt'l complaints, except as documented Psychiatric Psychiatric: Reports systems reviewed and no addt'l complaints, except as documented Endocrine Endocrinology: Reports systems reviewed and no addt'l complaints, except as documented Hematologic/Lymphatic Hematologic/Lymphatic: Reports systems reviewed and no addt'l complaints, except as documented Allergic/Immunologic Allergic/Immunologic: Reports systems reviewed and no addt'l complaints, except as documented Physical Exam Const alert, oriented x3 and no apparent distress HEENT normocephalic Eyes PERRL Neck Neck Narrative: Right posterior lateral side of the neck demonstrates a 4-5 cm diameter abscess with surrounding erythema. There appears to be 2 areas of scabbing noted. The lump is fluctuant and tender to palpation. No drainage noted. Lab / Micro Data Result Diagrams: 06/14/21 12:00 06/15/21 05:59 Labs: Laboratory Results - last 24 hr 06/14/21 12:00: WBC 6.0, RBC 3.80 L, Hgb 9.9 L, Hct 32.2 L, MCV 84.7, MCH 26.1 L , MCHC 30.7 L, RDW Std Deviation 49.0 H, RDW Coeff of Rajendra 15.9 H, Plt Count 253, MPV 10.9, Immature Gran % (Auto) 0.300, Neut % (Auto) 77.8 H, Lymph % (Auto) 10.3 L, [place] % (Auto) 8.9, Eos % (Auto) 2.0, Baso % (Auto) 0.7, Absolute Neuts (auto) 4.7, Absolute Lymphs (auto) 0.62 L, Nucleated RBC % 0 06/14/21 12:00: PT 14.7, INR 1.2, APTT 28.8 06/14/21 12:00: Sodium 136, Potassium 4.0, Chloride 105, Carbon Dioxide 29.0, Anion Gap 2 L, BUN 51 H, Creatinine 2.55 H, Estim Creat Clear Calc 34.59, Est GFR (MDRD) Af Amer 34 L, Est GFR (MDRD) Non-Af 28 L, BUN/Creatinine Ratio 20.0, Glucose 335 H, Calcium 9.0, Troponin I High Sens 37 06/14/21 17:01: POC Glucose 327 H 06/14/21 22:25: POC Glucose 187 H 06/15/21 05:59: Sodium 142, Potassium 4.1, Chloride 110 H, Carbon Dioxide 29.0, Anion Gap 3 L, BUN 51 H, Creatinine 2.51 H, Estim Creat Clear Calc 36.25, Est GFR (MDRD) Af Amer 35 L, Est GFR (MDRD) Non-Af 29 L, BUN/Creatinine Ratio 20.3 H , Glucose 106, Calcium 8.6, Triglycerides 119, Cholesterol 205 H, LDL Cholesterol 142 H, VLDL Cholesterol 24, HDL Cholesterol 39 L 06/15/21 06:54: POC Glucose [address] 06/14/21 11:53 IMPRESSION: Chronic involutional changes of the brain. Electronically Signed: Surinder Pedersen MD at 12:07 EST , ADDENDUM: 06/14/21 1219 IMPRESSION: Chronic involutional changes of the brain. N.B. : The above Results were Read Back by Surinder Pedersen MD to AD luis, and understanding confirmed on 06/14/2021 12:12:43 (ET). Electronically Signed: Surinder Pedersen MD at 12:07 EST , Head/Neck CTA 06/14/21 11:54 IMPRESSION: Minimal plaque at the carotid bifurcations bilaterally causing less than 50% luminal stenosis. Coronary artery calcification. Findings suggestive of bilateral pleural effusions right greater than left. Electronically Signed: Dario Ponce MD at 12:22 EST , ADDENDUM: 06/14/21 1232 IMPRESSION: Minimal plaque at the carotid bifurcations bilaterally causing less than 50% luminal stenosis. Coronary artery calcification. Findings suggestive of bilateral pleural effusions right greater than left. N.B. : The above Results were Read Back by Dario Ponce MD to Dr Ann MD, and understanding confirmed on 06/14/2021 12:25:18 (ET). Electronically Signed: Dario Ponce MD at 12:22 EST , Chest X-Ray 06/14/21 12:30 IMPRESSION: Poor inspiration with some bibasilar atelectasis. Electronically Signed: Surinder Pedersen MD at 12:49 EST , Foot X-Ray 06/14/21 15:25 IMPRESSION: There is non specific soft tissue swelling. Lucency in the plantar aspect of the foot at the level of the calcaneus. Soft tissue ulceration or fractures process should be considered. 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 Stable encephalomalacia in the posterior right frontal temporal lobe. Electronically Signed: Dario Ponce MD at 9:34 EST Reading Location ID and State: [facility] / [place] , Service support , Charges/Coding Visit Charges Office Visits / Consults: [id number] IP Consult L2
[2021-06-15 11:36] LABS: Bedside Glucose 126 mg/dL (74-106)
--- NOTE | 2021-06-15 11:52 | WOUNDNOTE ---
wound photo: left heel
--- NOTE | 2021-06-15 11:52 | WOUNDNOTE ---
wound photo: right lateral foot
--- NOTE | 2021-06-15 11:53 | WOUNDNOTE ---
wound photo: right posterior neck
--- NOTE | 2021-06-15 12:56 | PN.HOSP_ITS ---
Documented by User: Robel HUITRON 06/15/21 13:24 Subjective Subjective Patient is a 51-year-old comfortably resting in a chair, alert and orient x3. Patient denies any ongoing left-sided facial weakness or development of any new focal neurological deficits overnight. Patient does report a, what he believes to be, an ingrown hair on the dorsal aspect of the right side of his neck. Patient reports it is tender to palpation and swollen. Objective Data Objective Data Vital Signs: Vital Signs Temp Pulse Resp BP Pulse Ox 98.2 F 82 16 152/79 H 96 06/15/21 09:15 06/15/21 09:15 06/15/21 09:15 06/15/21 09:15 06/15/21 09:15 Oxygen Flow Rate (L/min) 2 Oxygen Delivery Method Room Air Weight: 318 lb 2.032 oz Body Mass Index (BMI) 44.4 Intake & Output: Intake and Output for Last 24 Hours 06/13/21 06/14/21 06/15/21 23:59 23:59 23:59 Intake Total 240 / 340 2245 / 2245 Output Total 350 / 650 900 / 900 Balance -110 / -310 1345 / 1345 Lab / Micro Data Result Diagrams: 06/14/21 12:00 06/15/21 05:59 Labs: Laboratory Results - last 24 hr 06/14/21 17:01: POC Glucose 327 H 06/14/21 22:25: POC Glucose 187 H 06/15/21 05:59: Sodium 142, Potassium 4.1, Chloride 110 H, Carbon Dioxide 29.0, Anion Gap 3 L, BUN 51 H, Creatinine 2.51 H, Estim Creat Clear Calc 36.25, Est GFR (MDRD) Af Amer 35 L, Est GFR (MDRD) Non-Af 29 L, BUN/Creatinine Ratio 20.3 H , Glucose 106, Calcium 8.6, Triglycerides 119, Cholesterol 205 H, LDL Cholesterol 142 H, VLDL Cholesterol 24, HDL Cholesterol 39 L 06/15/21 06:54: POC Glucose 101 06/15/21 11:04: POC Glucose 126 H Radiography Diagnostic Testing: Radiology Impression Foot X-Ray 06/14/21 15:25 IMPRESSION: There is non specific soft tissue swelling. Lucency in the plantar aspect of the foot at the level of the calcaneus. Soft tissue ulceration or fractures process should be considered. 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 Stable encephalomalacia in the posterior right frontal temporal lobe. Electronically Signed: Dario Ponce MD at 9:34 EST , Physical Exam Const alert, oriented x3 and no apparent distress HEENT head/scalp atraumatic and moist oral mucous membranes Head and Scalp: normocephalic Eyes PERRL and conjunctivae normal Neck no lymphadenopathy and no JVD Resp normal respiratory effort, no retractions and no use of accessory muscles Cardio regular rate, regular rhythm and no JVD GI normal to inspection, nondistended, normoactive bowel sounds Extremity normal to inspection Skin Skin Narrative: Fluctuant, indurated, red and tender abcess on the dorsal aspect of the patients right neck. Neuro CN's II-XII intact bilaterally Psych affect normal Assessment & Plan Assessment/Plan (1) Neck abscess: (2) Venous insufficiency: (3) Diabetes mellitus with diabetic polyneuropathy: (4) Diabetic infection of left foot: PLAN: Day 1 Discharge planning: Current plan is for patient to discharge charge to TCU pending pre-CERT. 1)Stroke like symptoms Patient reports resolution on numbness on the left side of his face. Repeat brain CT was obtained as patient was not able to tolerate MRI. Brain CT negative for acute ischemia or infarction. Head/neck CTA demonstrates minimal plaque at the carotid bifurcations bilaterally with less than 50% stenosis. Will discontinue NIHSS and continue to monitor patient for recurrence of symptoms. 2) diabetic ulcer about the left heel No evidence of infection or osteomyelitis on x-rays of the foot. Podiatry consulted and performed excisional debridement at bedside. Podiatry will continue to follow while admitted and would like patient to follow-up after discharge. LEAS pending, encourage home medication compliance with diabetic regimen and hypertensive regimen. 3) hypertensive urgency with history of hypertension Improved, will continue home medication regiment and titrate as necessary. 4) neck abscess Patient reports a neck abscess on the dorsal aspect of the right side of his neck. On inspection abscess is red, firm, swollen and tender to palpation. Abscess is about 4 x 2 cm across. Suspect furuncle. General surgery consulted for possible I&D, initiate doxycycline 100 mg p.o. twice daily. 4) DM2 Noncompliant with home medications, patient was hyperglycemic on admission. Sugars currently controlled. Continue high-dose sliding scale insulin titrate as needed. 5) CORA on CKD stage IIIa Creatinine currently 2.51. Baseline appears around 2. Patient was given contrast while in the ED. Will initiate fluids and monitor BMP. 6) CAD status post stent Patient with prior history of NSTEMI in 2013 and 2019 with stent to the PCI?TREY?mid LAD. Continue aspirin,statin, Imdur and beta-kane. 7) diastolic CHF Not in acute exacerbation. Echocardiogram from November 2020 demonstrated normal LV size and systolic function, concentric LVH, an EF of 55% and stage I diastolic dysfunction. We will continue home metoprolol, losartan and Lasix. DVT prophylaxis - Heparin Patient seen by Robel Hendrix PA-C, under the supervision of Dr. Morrissey. Time spent on patient care: 9 minutes. Documented by User: Dr. Georgia Morrissey DO 06/15/21 15:32 Subjective Subjective This patient was seen in conjunction with TOMY Lea. The following represents my independent history and physical examination. Please see below for addendum to the above. Patient complains of pain in his right neck area. He has a localized area of induration and erythema. Denies knowing of any drainage coming from this area recently. He states he is a wheeled walker at home but no standard walker and is concerned that he may not be able to follow appropriate weightbearing status given that he is to be nonweightbearing on that left lower extremity. I discussed with him that we have therapy see him for his weightbearing status as well as surgery to see if his neck need an incision and drainage. He has no specific complaints other than noted above Objective Data Lab / Micro Data Result Diagrams: 06/14/21 12:00 06/15/21 05:59 Physical Exam Const alert, oriented x3, no apparent distress and well nourished Constitutional Narrative: Morbidly obese white male sitting up in a chair, son at bedside, appears comfortable and nontoxic Exam Limitations: no limitations Nutritional Appearance: morbidly obese HEENT head/scalp atraumatic, moist oral mucous membranes and oropharynx normal HEENT Narrative: Mallampati is 3, no thrush Head and Scalp: normocephalic Eyes PERRL, EOMs intact bilaterally and conjunctivae normal Eyes Narrative: No scleral icterus Neck no lymphadenopathy and supple Neck Narrative: Trachea midline, neck is short and thick, no thyroid enlargement noted Resp normal respiratory effort, no retractions and no use of accessory muscles Cardio regular rate, regular rhythm, S1 normal heart sound, S2 normal heart sound, no murmurs, no rub, no gallops, no clicks and no JVD GI normal to inspection, nondistended, normoactive bowel sounds, soft to palpation, non-tender and non-distended GI Narrative: Large pannus Extremity Extremity Narrative: Vital lower extremity dressings in place, chronic edema noted with changes consistent with venous stasis, no cyanosis or clubbing, cap refill is good however pedal pulses are difficult to palpate secondary to edema Skin Skin Narrative: Bilateral lower extremity dressings in place, right side of neck with an area approximately the size of a silver dollar that is indurated and tender, superficial scabbing in place with no noted drainage at this time Neuro oriented x3, CN's II-XII intact bilaterally, moves all extremities and no focal motor deficits Neuro Narrative: Bilateral lower extremity neuropathy, significant lower extremity weakness Sensorium / Orientation: awake and alert Speech: speech normal Psych Psych Narrative: Affect is slightly flat however patient interacts appropriately Assessment & Plan Assessment/Plan (1) Neck abscess: (2) Facial paresthesia: (3) Non-pressure chronic ulcer of other part of left foot with fat layer exposed: (4) Debility: PLAN: Assessment: Left-sided facial paresthesias-resolved Hypertensive urgency with history of hypertension Bilateral lower extremity foot wounds left greater than right Right-sided neck abscess Uncontrolled DM-2 CKD stage IIIb CAD status post stent Chronic stable diastolic heart failure Hyperlipidemia Plan: -Consult Dr. Pineda for possible I&D of right neck abscess -Start doxycycline 100 mg p.o. twice daily -Cultures pending from abscess--> monitor -CT head negative and repeat done today which shows no acute findings other than suggestion of normal pressure hydrocephalus however the patient is completely asymptomatic with regards to this and this was not read on the initial CT -We will recommend that the patient be followed clinically and this be addressed if becomes symptomatic in the future -Patient was seen by podiatry yesterday and had debridement of the left heel ulcer--> no signs of infection noted per documentation -Recommendations are for every other day dressing changes with nonweightbearing to the left lower extremity to allow for healing -Cam walking boot recommended for allowance of toe-touch weightbearing -Offload the heel pad while in bed -Patient follow-up at the wound center -Patient was unfortunately not able to comply with nonweightbearing status and therefore will need to transition to the TCU at discharge for continued wound care, and therapy services--> pre-CERT is pending--> patient is stable for discharge once pre-CERT obtained Charges/Coding Visit Charges Inpatient E&M: 30878 Subs Hosp L3
--- NOTE | 2021-06-15 13:00 | WOUNDNOTE ---
in with Dr Pineda to assess the right neck abscess. After consent, Dr Pineda numbed the area with lidocaine and performed and I&D. moderate amount of milky drainage out. site was irrigated with NS and packed with iodoform gauze. covered with dry dressings. pt tolerated well. culture obtained and sent to lab.
[2021-06-15] MEDS: Lidocaine 1% /Epi 1:100 (50ml) 50 ML VIAL 10 ML INFILT (14:04)
--- NOTE | 2021-06-15 15:11 | PCM.OP.PRO ---
Procedure Report Date of Procedure: 06/15/21 Procedure: Incision and drainage of right posterior neck abscess After obtaining written consent, patient was positioned left lateral decubitus on the exam room table. A verbal timeout was conducted to confirm the patient and procedure. Then the area was anesthetized with a local block using 7 mL of 1% lidocaine. Then, an 11 blade scalpel was used to make a stab incision in this area. This resulted in some bleeding and milky discharge consistent with a sebaceous cyst. Manual pressure was applied to further express this discharge until the cavity appeared empty. The cavity was then irrigated with sterile saline. The cavity it was packed tightly with quarter inch iodoform gauze. Additional pressure was applied to ensure hemostasis. Once satisfied with this, a 4 x 4 gauze was then folded into fourths and taped over site. Patient tolerated the procedure without any apparent complication. EBL: Less than 10 mL Complications: None
[2021-06-15 18:16] LABS: Bedside Glucose 124 mg/dL (74-106)
[2021-06-15] MEDS: Atorvastatin Calcium 80 MG Tablet PO (22:51)
[2021-06-15] MEDS: Insulin Lispro 100 UNIT/ML INSULN.PEN SC (22:53)
[2021-06-15 23:11] LABS: Bedside Glucose 208 mg/dL (74-106)
[2021-06-16] VITALS (9 sets, daily range): BP systolic 126–159; BP diastolic 69–74; PULSE 73–81; RESP 18–20; TEMP 35.9–36.8; O2SAT 92–95
[2021-06-16 05:49] LABS: Absolute Lymphocyte Count 0.88 X10^3/uL (0.83-4.51); Absolute Neutrophil Count 4.7 X10^3/uL (2.0-7.7); Basophil# 0.04 X10^3/uL; Basophil% 0.6 % (0-1); Eosinophil# 0.16 X10^3/uL; Eosinophils% 2.4 % (0-5); Hemoglobin 9.4 g/dL (13.0-16.5); Lymphocyte # 0.88 X10^3/ul (0.83-4.51); Lymphocyte % 13.3 % (19-41); Mean Corp Hgb Conc 30.3 g/dL (32-36); Mean Corpuscular Hgb 25.8 pg (27.0-32.0); Mean Corpuscular Volume 85.2 fL (80-94); Mean Platelet Vol. 10.4 fl (6.2-12.0); Monocyte# 0.75 X10^3/uL; Monocyte% 11.4 % (0-10); NRBC Flagged by Analyzer 0 % (0-5); Neutrophil # 4.74 X10^3/uL (2.7-7.7); Neutrophil % 71.8 % (47-70); Platelet Count 273 K/mm3 (150-450); RBC Distribution Width CV 16.1 % (11.6-14.6); RBC Distribution Width SD 50.2 fl (35.1-43.9); Red Blood Count 3.64 M/mm3 (4.6-6.2); White Blood Count 6.6 K/mm3 (4.4-11.0)
[2021-06-16] MEDS: Heparin Injection (Vial) 5,000 UNIT/ML VIAL 5000 UNIT SC ×2 (05:59→14:00)
[2021-06-16 06:25] LABS: Anion Gap 2 (5-15); BUN 53 mg/dL (7-18); BUN/Creat Ratio 18.3 RATIO (10-20); Calcium,Total 8.7 mg/dL (8.5-10.1); Chloride 110 mmol/L (98-107); Creatinine, Serum 2.89 mg/dL (0.70-1.30); EST Glomerular Filtration Rate 24 mL/min (>60); Est Glom Filt Rate - Afr Amer 30 mL/min (>60); Estimated Creatinine Clearance 31.48 ml/min; Glucose 97 mg/dL (74-106); Potassium 3.8 mmol/L (3.5-5.1); Sodium Level 141 mmol/L (136-145)
[2021-06-16 06:51] LABS: Bedside Glucose 87 mg/dL (74-106)
--- NOTE | 2021-06-16 08:32 | PN.SURG_ITS ---
Subjective Subjective Patient seen and examined during AM rounds. He reports significant improvement in the discomfort from his right neck. He suggests that he may be discharged later today. Objective Data Objective Data Vital Signs: Vital Signs Temp Pulse Resp BP Pulse Ox 97.9 F 73 18 139/74 H 92 06/16/21 05:56 06/16/21 06:46 06/16/21 05:56 06/16/21 05:56 06/16/21 05:56 Oxygen Flow Rate (L/min) 2 Oxygen Delivery Method Room Air Weight: 318 lb 2.032 oz Body Mass Index (BMI) 44.4 Intake & Output: Intake and Output for Last 24 Hours 06/14/21 06/15/21 06/16/21 23:59 23:59 23:59 Intake Total 240 / 340 2725 / 2825 300 / 300 Output Total 350 / 650 900 / 900 0 / 0 Balance -110 / -310 1825 / 1925 300 / 300 Lab / Micro Data Result Diagrams: 06/16/21 05:28 06/16/21 05:28 Labs: Laboratory Results - last 24 hr 06/15/21 11:04: POC Glucose 126 H 06/15/21 16:07: POC Glucose 124 H 06/15/21 22:46: POC Glucose 208 H 06/16/21 05:28: WBC 6.6, RBC 3.64 L, Hgb 9.4 L, Hct 31.0 L, MCV 85.2, MCH 25.8 L , MCHC 30.3 L, RDW Std Deviation 50.2 H, RDW Coeff of Rajendra 16.1 H, Plt Count 273, MPV 10.4, Immature Gran % (Auto) 0.500, Neut % (Auto) 71.8 H, Lymph % (Auto) 13.3 L, [place] % (Auto) 11.4 H, Eos % (Auto) 2.4, Baso % (Auto) 0.6, Absolute Neuts (auto) 4.7, Absolute Lymphs (auto) 0.88, Nucleated RBC % 0 06/16/21 05:28: Sodium 141, Potassium 3.8, Chloride 110 H, Carbon Dioxide 29.0, Anion Gap 2 L, BUN 53 H, Creatinine 2.89 H, Estim Creat Clear Calc 31.48, Est GFR (MDRD) Af Amer 30 L, Est GFR (MDRD) Non-Af 24 L, BUN/Creatinine Ratio 18.3, Glucose 97, Calcium 8.7 06/16/21 06:29: POC Glucose 87 Radiography Diagnostic Testing: Radiology Impression Extremity Arterial Study 06/14/21 15:44 Interpretation Summary Right lower extremity noncalculable ankle-brachial indices secondary to noncompressible vessels. The right posterior tibial and dorsalis pedis demonstrate triphasic Doppler waveforms which would suggest medial calcification of the vessel wall but maintain blood flow. Left lower extremity demonstrates the PT and DP ankle-brachial index of 1.46 and 1.51 respectively which likely are artificially slightly elevated due to the compressibility of the vessel. The left posterior tibial and dorsalis pedis Doppler waveforms are triphasic which is normal. The left digital brachial index is normal at 0.81 Previous study of August 23, 2020 suggested that the right ankle brachial indices were obtainable at that time. Doppler waveforms were triphasic at that time as they are now. 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 Stable encephalomalacia in the posterior right frontal temporal lobe. Electronically Signed: Dario Ponce MD at 9:34 EST , Physical Exam Neck Neck Narrative: Patient with decreased swelling and redness of right posterior neck. There is still a significant degree of induration. There is minimal drainage from the wound Assessment & Plan Assessment/Plan (1) Infected sebaceous cyst: PLAN: s/p bedside I &D w cultures on 06/15/2021. Patient symptomatically improved, but there is still a significant amount of induration. I have encouraged patient to bathe- leaving his wound exposed to irrigating water, then pat dry and repack once daily. Given his diabetes, he should be continued on antibiotic coverage that may then be tailored to his procedure cultures. If patient discharges today I would like to see him for a wound follow up in 1 week. Additionally, patient has been informed that once this acute issue is resolved, he would require an appointment for cyst excision so that the entirety of the cyst can be removed and thereby reduce his risk for recurrence. Charges/Coding Visit Charges Inpatient E&M: 62535 Subs Hosp L2
[2021-06-16] MEDS: amLODIPine 5 MG Tablet PO (09:11)
[2021-06-16] MEDS: Famotidine 20 MG Tablet PO (09:11)
[2021-06-16] MEDS: Isosorbide Mononitrate 60 MG Tablet PO (09:11)
[2021-06-16] MEDS: Doxycycline 100 MG CAPSULE PO (09:12)
[2021-06-16] MEDS: Metoprolol(XL)Succ 100 MG Tablet PO (09:12)
[2021-06-16] MEDS: hydrALAZINE 50 MG Tablet PO (09:12)
[2021-06-16] MEDS: Losartan Potassium 25 MG Tablet PO (09:12)
[2021-06-16] MEDS: Furosemide 40 MG Tablet PO (09:12)
[2021-06-16] MEDS: hydrALAZINE 25 MG Tablet PO (09:13)
[2021-06-16] MEDS: Aspirin 81 MG TAB.CHEW PO (09:13)
[2021-06-16] MEDS: Magnesium Chloride 64 MG Delay Rel.Tablet 128 MG PO (09:13)
[2021-06-16] MEDS: Clopidogrel Bisulfate 75 MG Tablet PO (09:13)
[2021-06-16 11:41] LABS: Bedside Glucose 141 mg/dL (74-106)
--- NOTE | 2021-06-16 12:34 | PN_ITS ---
Subjective Subjective This 51-year-old male was seen bedside for left foot ulceration secondary to poorly controlled diabetes in setting of peripheral neuropathy. Patient denies any fever chills nausea vomiting chest pain calf pain shortness of breath. Patient denies any new changes notes that wound care nurse change his dressing this morning. Denies any pain to the site. Reports that he has been ambulating in a walking boot to his left lower extremity assisted by a walker. Patient notes plan is for him to discharge to long-term acute care for transitional care unit Objective Data Objective Data Dressing to left lower extremity left clean dry and intact. Noted be brisk capillary fill time to digits 1 through 5 the left lower extremity. No pain wi th calf squeeze bilateral lower extremity. Patient has active and passive range of motion of the lesser digits bilaterally. Vital Signs: Vital Signs Temp Pulse Resp BP Pulse Ox 96.7 F L 78 18 142/74 H 94 06/16/21 09:01 06/16/21 09:13 06/16/21 09:01 06/16/21 09:13 06/16/21 09:01 Oxygen Flow Rate (L/min) 2 Oxygen Delivery Method Room Air Weight: 144.3 kg Body Mass Index (BMI) 44.4 Intake & Output: Intake and Output for Last 24 Hours 06/14/21 06/15/21 06/16/21 23:59 23:59 23:59 Intake Total 240 / 340 2725 / 2825 540 / 540 Output Total 350 / 650 900 / 900 0 / 0 Balance -110 / -310 1825 / 1925 540 / 540 Lab / Micro Data Result Diagrams: 06/16/21 05:28 06/16/21 05:28 Labs: Laboratory Results - last 24 hr 06/15/21 16:07: POC Glucose 124 H 06/15/21 22:46: POC Glucose 208 H 06/16/21 05:28: WBC 6.6, RBC 3.64 L, Hgb 9.4 L, Hct 31.0 L, MCV 85.2, MCH 25.8 L , MCHC 30.3 L, RDW Std Deviation 50.2 H, RDW Coeff of Rajendra 16.1 H, Plt Count 273, MPV 10.4, Immature Gran % (Auto) 0.500, Neut % (Auto) 71.8 H, Lymph % (Auto) 13.3 L, [place] % (Auto) 11.4 H, Eos % (Auto) 2.4, Baso % (Auto) 0.6, Absolute Neuts (auto) 4.7, Absolute Lymphs (auto) 0.88, Nucleated RBC % 0 06/16/21 05:28: Sodium 141, Potassium 3.8, Chloride 110 H, Carbon Dioxide 29.0, Anion Gap 2 L, BUN 53 H, Creatinine 2.89 H, Estim Creat Clear Calc 31.48, Est GFR (MDRD) Af Amer 30 L, Est GFR (MDRD) Non-Af 24 L, BUN/Creatinine Ratio 18.3, Glucose 97, Calcium 8.7 06/16/21 06:29: POC Glucose 87 06/16/21 11:33: POC Glucose 141 H Micro: Microbiology 06/15/21 13:15 Wound Abcess - Neck Gram Stain - Final 06/15/21 13:15 Wound Abcess - Neck Wound Culture - Preliminary Staphylococcus aureus Radiography Diagnostic Testing: Radiology Impression Extremity Arterial Study 06/14/21 15:44 Interpretation Summary Right lower extremity noncalculable ankle-brachial indices secondary to noncompressible vessels. The right posterior tibial and dorsalis pedis demonstrate triphasic Doppler waveforms which would suggest medial calcification of the vessel wall but maintain blood flow. Left lower extremity demonstrates the PT and DP ankle-brachial index of 1.46 and 1.51 respectively which likely are artificially slightly elevated due to the compressibility of the vessel. The left posterior tibial and dorsalis pedis Doppler waveforms are triphasic which is normal. The left digital brachial index is normal at 0.81 Previous study of August 23, 2020 suggested that the right ankle brachial indices were obtainable at that time. Doppler waveforms were triphasic at that time as they are now. Ordering Physician: Robel Hendrix Referring Physician: Joseph Ricks Performed By: Jennifer Cross RDCS/RVT Physical Exam Narrative Neurovascular status intact of bilateral lower extremity. Resting/clean dry and intact. No pain with calf squeeze bilateral lower extremity. E11.40 - Diabetic peripheral neuropathy L97.522 - Non-pressure ulcer, subcutaneous level, left foot Patient examined and evaluated all findings discussed with patient. Arterial studies were reviewed, patient has noncompressible vessels to the right lower extremity suggestive of arterial calcification. Patient has intact CAT and TBI's to left lower extremity suggestive of adequate blood flow for wound healing at this time. Since there are no wounds to the right lower extremity we will observe left lower extremity for wound healing progress, if there are any delays will consider vascular referral. Dressings were left clean dry and intact as they were changes morning per wound care nurse. I recommend continued dressing changes 3 times per week consisting of Aquacel Ag dry sterile dressing with compression via [place] wrap. Current plan is for discharge to transitional care unit. Once patient is transferred to this unit, we will plan to follow patient on a weekly basis to provide continued local wound care. He should continue protected weightbearing in Cam walking boot assisted by walker to offload wound site. There are any delays in healing will consider progressing weightbearing status to nonweightbearing, adding advanced wound care products, considering vascular referral, supplementing nutritional status. At this time patient's blood sugar is significantly improved as this should contribute to patient's wound healing potential. We will plan to continue to follow the patient on a weekly basis and provide any local excisional debridements that we need at that time. Const alert, oriented x3 and no apparent distress
--- NOTE | 2021-06-16 13:29 | CASEMGMT ---
CYNTHIA received a call from Mary and patient was approved to go to TCU. CYNTHIA notified physician, battery charger, and patient. Georgiana Ayala MSW [place]
--- NOTE | 2021-06-16 13:45 | DS.PCM_ITS ---
Providers Date of Admission: 06/14/21 Date of Discharge: 06/16/21 Primary Care Physician: Dr. Joseph Ricks MD Consultations 06/14/21 15:21 Consult: Podiatry Routine Consulting Provider: Everett Julien Reason for Consult: 3cm ulcer about the later hell of the left foot. EMERGENT Consult: No MD Notified: Yes Date Notified: 06/14/21 Time Notified: 15:21 Method of Notification: Provider Initiated 06/15/21 06:30 Consult: Onc/Wound/ward attendant Routine Comment: 06/15/21 09:51 Consult: General Surgery Routine Consulting Provider: Sarath Pineda Reason for Consult: R neck abscess ? I&D EMERGENT Consult: No MD Notified: Yes Date Notified: 06/15/21 Time Notified: 09:51 Method of Notification: Verbal Reason For Visit: PARAESTHESISAS, CKD, HYPERGLYCEMIA Diagnosis Discharge Diagnosis (1) Infected sebaceous cyst: Status: Acute Code(s): L72.3 - Sebaceous cyst; L08.9 - Local infection of the skin and subcutaneous tissue, unspecified (2) Facial paresthesia: Status: Acute Code(s): R20.2 - Paresthesia of skin (3) Debility: Status: Acute Code(s): R53.81 - Other malaise (4) Uncontrolled diabetes mellitus: Status: Acute Code(s): E11.65 - Type 2 diabetes mellitus with hyperglycemia Qualifiers: Diabetes mellitus type: other specified (including IZABELA) Glycemic state: with hyperglycemia Qualified Code(s): E13.65 - Other specified diabetes mellitus with hyperglycemia Medications at Discharge Home Medications Mag-Ox 400 400 mg PO DAILY 09/28/14 aspirin 81 mg PO DAILY@0800 09/28/14 nitroglycerin 0.4 mg sublingual tablet 0.4 mg SUBLINGUAL Q5-15M PRN 04/20/17 atorvastatin 80 mg PO QHS 12/20/18 clopidogrel 75 mg PO DAILY #90 tab 12/25/18 glimepiride 2 mg tablet 2 mg PO QAM #90 tab 03/11/19 hydralazine 25 mg tablet 25 mg PO .COMPLEX #90 tab 09/08/19 hydralazine 50 mg tablet 50 mg PO .COMPLEX #90 tab 09/08/19 Trulicity 0.75 mg SUBCUT TH 08/21/20 insulin glargine 15 unit SC DAILY #0 ml 08/26/20 isosorbide mononitrate 60 mg tablet,extended release 24 hr 60 mg PO DAILY #90 tab 10/25/20 losartan 25 mg tablet 25 mg PO DAILY #90 tab 10/25/20 metoprolol succinate 100 mg tablet,extended release 24 hr 100 mg PO DAILY #90 tab 10/25/20 amlodipine 5 mg tablet 5 mg PO DAILY #90 tab 02/21/21 famotidine 20 mg PO DAILY 06/14/21 furosemide 40 mg PO BID 06/14/21 doxycycline monohydrate 100 mg PO BID #0 cap 06/16/21 insulin glargine [Lantus Solostar U-100 Insulin] 20 unit SUBCUT BID #0 ml 06/16/21 insulin lispro [Humalog KwikPen Insulin] See Protocol SUBCUT ACHS #0 ml 06/16/21 nystatin [Nyamyc] 1 applic TOPICAL BID #0 g 06/16/21 Hospital Course Operations - (Bedside I&D of the right neck and left foot) Procedures - (MRI brain/bilateral lower extremity arterial Dopplers) Summary of Care Provided Minutes Spent on Discharge: 41 Hospital Course: Mr. Sanchez is a 51-year-old white male who presented to the emergency department [facility] on 06/14/2021 complaining of left-sided facial paresthesias. He reported that for the last couple days prior to admission that his left face got increasingly more numb. He denied any slurred speech, facial asymmetry, vision changes, headache, or upper/lower extremity tingling numbness or weakness. He has a known history of noncompliance with his home medications. On presentation he was hypertensive with blood pressure of 178/96. His CBC was overall stable and unremarkable demonstrating a chronic anemia. His BMP showed chronic renal insufficiency with a stable baseline serum creatinine. His blood sugar was 335. Given the findings there was concern for acute stroke a CT of his head was performed and showed chronic involutional changes of the brain but no new findings. A CTA of his head and neck was performed and showed minimal plaque in the carotid bifurcations bilaterally with less than 50% stenosis in the vertebral arteries were dominant on the left without any significant blockages. Chest x-ray showed poor inspiratory effort with some bibasilar atelectasis but was otherwise unremarkable. An x-ray of his foot was performed because he had a wound on the left lower extremity. This showed nonspecific soft tissue swelling with some soft tissue ulceration at the area of the left calcaneus. An arterial Doppler was performed and showed right lower extremity non-calculated we will CAT secondary to noncompressible vessels and left lower extremity posterior tibialis and dorsalis pedis CAT of 4.16 and 1.51 respectively. The patient was unable to go through an MRI secondary to claustrophobia and therefore a repeat CT of his brain was performed and showed cyst signs it were suggestive of normal pressure hydrocephalus and stable encephalomalacia however the normal pressure hydrocephalus was not reported in the initial CT of the head and the patient is asymptomatic with regards to this and this was therefore not pursued any further at this time. If the patient develops any signs or symptoms consistent with normal pressure hydrocephalus repeat CT of the head is recommended with follow-up to outpatient neurosurgery. His left-sided paresthesias resolved prior to being admitted and patient had no further issues with these during his hospitalization. With regards to his left foot he was evaluated by podiatry and soft tissue debridement was done at the bedside. The patient tolerated this well as he has significant neuropathy. There were no signs of infection and recommendations were for nonweightbearing with a cam boot to allow for toe-touch weightbearing and continued dressing changes and evaluation by wound care. The patient was then evaluated by physica l therapy to see how he tolerated the use of a walker and he did fairly poorly and required admission to skilled facility for continued strengthening and wound care. He also was found to have an infected sebaceous cyst on his right neck for which he underwent an I&D on 06/15/2021 by general surgery. He was placed on doxycycline at the time that it was found and cultures are currently growing out staph aureus with sensitivities still pending. The sensitivities will need to be reviewed and antibiotics potentially adjusted based on sensitivities however I will discharge him on doxycycline 100 mg twice daily taken continue for 14 total days. We will be holding his home oral hypoglycemic medications along with his Trulicity secondary to available formulary and continue him on his current insulin regimen that he has been on while he has been hospitalized. Historically his hemoglobin A1c has been very poorly controlled. He was discharged to the TCU in stable condition on 06/16/2021. Discharge diagnoses: Left-sided facial paresthesias-resolved Hypertensive urgency Bilateral lower extremity foot wounds left greater than right Right-sided neck infected sebaceous cyst Uncontrolled DM-2 CKD stage IIIb-IV CAD status post PCI Chronic stable diastolic heart failure Hyperlipidemia GERD Intertrigo Caroline Physical Exam Const alert, oriented x3, no apparent distress and well nourished Constitutional Narrative: Morbidly obese white male sitting up in a chair, son at bedside, wound nurse at the bedside changing his leg dressings, appears comfortable and nontoxic General Appearance: cooperative, comfortable, well kempt and well developed Orientation / Consciousness: awake Exam Limitations: no limitations Nutritional Appearance: morbidly obese HEENT normocephalic, head/scalp atraumatic, hearing grossly normal bilaterally, moist oral mucous membranes and oropharynx normal HEENT Narrative: Mallampati is 3-4, no thrush, dentition is fair Eyes PERRL, EOMs intact bilaterally and conjunctivae normal Eyes Narrative: No scleral icterus Neck no lymphadenopathy and supple Neck Narrative: Trachea midline, neck is short and thick, no thyroid enlargement noted Resp normal respiratory effort, no retractions, no use of accessory muscles and clear to auscultation bilaterally Resp Narrative: Diminished diffusely but no adventitious sounds noted-body habitus is somewhat limiting Auscultation: Negative for crackles, rales, rhonchi or wheezes Cardio regular rate, regular rhythm, S1 normal heart sound, S2 normal heart sound, no murmurs, no rub, no gallops, no clicks and no JVD GI normal to inspection, nondistended, normoactive bowel sounds, soft to palpation, non-tender and non-distended GI Narrative: Large pannus Extremity normal to inspection Extremity Narrative: Vital lower extremity dressings in place, chronic edema noted with changes consistent with venous stasis, no cyanosis or clubbing, cap refill is good however pedal pulses are difficult to palpate secondary to edema Skin Skin Narrative: Bilateral lower extremity dressings in place, dressing on the right side of the neck noted with no significant drainage, mild scrotal edema with intertrigo yeast noted Neuro oriented x3, CN's II-XII intact bilaterally, moves all extremities and no focal motor deficits Neuro Narrative: Bilateral lower extremity neuropathy, significant lower extremity weakness Sensorium / Orientation: awake and alert Speech: speech normal Psych affect normal Psych Narrative: Patient is more interactive and appropriate today Weight / BMI Weight Weight: 144.3 kg Body Mass Index (BMI) 44.4 ABG / Lab / Microbiology Data Result Diagrams: 06/16/21 05:28 06/16/21 05:28 Laboratory: Laboratory Results - last 24 hr 06/15/21 16:07: POC Glucose 124 H 06/15/21 22:46: POC Glucose 208 H 06/16/21 05:28: WBC 6.6, RBC 3.64 L, Hgb 9.4 L, Hct 31.0 L, MCV 85.2, MCH 25.8 L , MCHC 30.3 L, RDW Std Deviation 50.2 H, RDW Coeff of Rajendra 16.1 H, Plt Count 273, MPV 10.4, Immature Gran % (Auto) 0.500, Neut % (Auto) 71.8 H, Lymph % (Auto) 13.3 L, Corson % (Auto) 11.4 H, Eos % (Auto) 2.4, Baso % (Auto) 0.6, Absolute Neuts (auto) 4.7, Absolute Lymphs (auto) 0.88, Nucleated RBC % 0 06/16/21 05:28: Sodium 141, Potassium 3.8, Chloride 110 H, Carbon Dioxide 29.0, Anion Gap 2 L, BUN 53 H, Creatinine 2.89 H, Estim Creat Clear Calc 31.48, Est GFR (MDRD) Af Amer 30 L, Est GFR (MDRD) Non-Af 24 L, BUN/Creatinine Ratio 18.3, Glucose 97, Calcium 8.7 06/16/21 06:29: POC Glucose 87 06/16/21 11:33: POC Glucose 141 H Microbiology: Microbiology 06/15/21 13:15 Wound Abcess - Neck Gram Stain - Final 06/15/21 13:15 Wound Abcess - Neck Wound Culture - Preliminary Staphylococcus aureus Radiography Diagnostic Testing: Radiology Impression Extremity Arterial Study 06/14/21 15:44 Interpretation Summary Right lower extremity noncalculable ankle-brachial indices secondary to noncompressible vessels. The right posterior tibial and dorsalis pedis demonstrate triphasic Doppler waveforms which would suggest medial calcification of the vessel wall but maintain blood flow. Left lower extremity demonstrates the PT and DP ankle-brachial index of 1.46 and 1.51 respectively which likely are artificially slightly elevated due to the compressibility of the vessel. The left posterior tibial and dorsalis pedis Doppler waveforms are triphasic which is normal. The left digital brachial index is normal at 0.81 Previous study of August 23, 2020 suggested that the right ankle brachial indices were obtainable at that time. Doppler waveforms were triphasic at that time as they are now. __ Ordering Physician: Robel Hendrix Referring Physician: Joseph Ricks Performed By: Jennifer Cross RDCS/RVT D/C Instructions Discharge Diet: Low fat / Low cholesterol, 1800 Calorie Control Diet, 8 Cup Fluid Restriction and 2000 mg Sodium Diet Meaningful Use Info Meaningful Use Diagnoses (Choose all that apply): None applicable Discharge Plan Admission Admit Date/Time: 06/14/21 13:29 Primary Reason for Your Visit: Left-sided facial paresthesias Attending Provider: Georgia Morrissey Primary Care Provider: Joseph Ricks Consulting Providers: Everett Julien ; Sarath Pineda Instructions Additional Instructions / Restrictions: Dr. Pineda from general surgery and Dr. Julien from podiatry need to follow patient at TCU after discharge Discharge Orders/Prescriptions Prescriptions: New doxycycline monohydrate 100 mg Capsule 100 mg PO BID Qty: 0 RF: 0 Lantus Solostar U-100 Insulin 100 unit/mL (3 mL) Insulin Pen 20 unit subcut BID Qty: 0 RF: 0 insulin lispro [Humalog KwikPen Insulin] 100 unit/mL Insulin Pen See Protocol unit subcut ACHS Qty: 0 RF: 0 nystatin [Nyamyc] 100,000 unit/gram Powder 1 applic topical BID Qty: 0 RF: 0 Continued nitroglycerin 0.4 mg tablet, sublingual 0.4 mg SUBLINGUAL Q5-15M PRN (Reason: Cardiac/Chest Pain) RF: 0 Mag-Ox 400 400 mg PO DAILY RF: 0 aspirin 81 MG tablet,chewable 81 mg PO DAILY@0800 RF: 0 atorvastatin 80 MG tablet 80 mg PO QHS RF: 0 clopidogrel 75 MG tablet 75 mg PO DAILY Qty: 90 RF: 0 furosemide 40 mg tablet 40 mg PO BID RF: 0 famotidine 20 mg Tablet 20 mg PO DAILY RF: 0 hydralazine 50 mg tablet 50 mg PO .COMPLEX Qty: 90 RF: 11 hydralazine 25 mg tablet 25 mg PO .COMPLEX Qty: 90 RF: 11 metoprolol succinate 100 mg tablet extended release 24 hr 100 mg PO DAILY Qty: 90 RF: 3 isosorbide mononitrate 60 mg tablet extended release 24 hr 60 mg PO DAILY Qty: 90 RF: 3 losartan 25 mg tablet 25 mg PO DAILY Qty: 90 RF: 3 amlodipine 5 mg tablet 5 mg PO DAILY Qty: 90 RF: 3 Held glimepiride 2 mg tablet 2 mg PO QAM Qty: 90 RF: 0 Hold Instructions: Restart after discharge from TCU Trulicity 0.75 mg/0.5 mL pen injector 0.75 mg SUBCUT TH RF: 0 Hold Instructions: Restart after discharge from TCU insulin glargine 100 unit/mL (3 mL) insulin pen 15 unit SC DAILY Qty: 0 RF: 0 Hold Instructions: Restart on discharge after TCU Discontinued linezolid 600 mg tablet 600 mg PO Q12H 14 Days Qty: 28 RF: 0 Referrals / Follow Up: Everett Julien DPM [STAFF PHYSICIAN] - Weekly (Follow up at [facility] [phone]) Sarath Pineda MD [STAFF PHYSICIAN] - In 1 Week (At [facility]) Joseph Ricks MD [Primary Care Provider] - Within 1 Month Disposition Disposition (needs filled in before D/C Order can be placed): [facility] Facility Charges/Coding Visit Charges Inpatient E&M: 62049 SNF Disch >30 Min
--- NOTE | 2021-06-16 14:15 | PCM.TXEXTCAR ---
Diet 06/14/21 16:16 Diet: Consistent Carb - Calorie Controlled Is pt able to select menu?: Yes How many daily calories?: 1800 calorie Routine Orders/Code Status O2 Frequency: PRN Keep PO Greater than or Equal to (%): 92 Routine Lab Work: BMP (Weekly starting on 06/17/2021) Code Status: Full Code Wound(s) Left Heel: Wound Type: Neuropathic/Diabetic Foot Ulcer Dressing Change: AntiMicrobial (Aquacel AG, etc) right lateral foot: Wound Type: open blister Dressing Change: Adaptic right posterior neck: Wound Type: Abscess Suggestions for Active Care Change Position every (hours): 2 Therapies Weight Bearing: Non weight bearing Extremity Affected:: Left Lower Physical Therapy: Eval and Treat Occupational Therapy: Eval and Treat Problem/Diagnosis (1) Infected sebaceous cyst: Status: Acute (2) Facial paresthesia: Status: Acute (3) Debility: Status: Acute (4) Uncontrolled diabetes mellitus: Status: Acute Allergies/Procedures Done in Hospital Allergies lisinopril Adverse Reaction (Intermediate, Verified 12/26/20 17:34) Cough losartan Adverse Reaction (Intermediate, Verified 12/26/20 17:34) cough Type of Care/Length of Stay Estimated LOS: Convalescent Care Less Than 30 days Type of Care Needed: Skilled Rehab Potential: Good Prognosis: Fair Additional Orders/Day of Discharge Additional Orders: Will need consultations to general surgery with Dr. Pineda and podiatry with Dr. Julien Day of Discharge: 06/16/21 Dietary and Speech Recommendations Dietitian Recommendations/Changes: recommend cardiac, carbohydrate controlled diet w/ Reinaldo BID for wound healing Discharge Plan Admission Admit Date/Time: 06/14/21 13:29 Primary Reason for Your Visit: Left-sided facial paresthesias Attending Provider: Georgia Morrissey Primary Care Provider: Joseph Ricks Consulting Providers: Everett Julien ; Sarath Pineda Instructions Additional Instructions / Restrictions: Dr. Pineda from general surgery and Dr. Julien from podiatry need to follow patient at TCU after discharge Discharge Orders/Prescriptions Prescriptions: New doxycycline monohydrate 100 mg Capsule 100 mg PO BID Qty: 0 RF: 0 Lantus Solostar U-100 Insulin 100 unit/mL (3 mL) Insulin Pen 20 unit subcut BID Qty: 0 RF: 0 insulin lispro [Humalog KwikPen Insulin] 100 unit/mL Insulin Pen See Protocol unit subcut ACHS Qty: 0 RF: 0 nystatin [Nyamyc] 100,000 unit/gram Powder 1 applic topical BID Qty: 0 RF: 0 Continued nitroglycerin 0.4 mg tablet, sublingual 0.4 mg SUBLINGUAL Q5-15M PRN (Reason: Cardiac/Chest Pain) RF: 0 Mag-Ox 400 400 mg PO DAILY RF: 0 aspirin 81 MG tablet,chewable 81 mg PO DAILY@0800 RF: 0 atorvastatin 80 MG tablet 80 mg PO QHS RF: 0 clopidogrel 75 MG tablet 75 mg PO DAILY Qty: 90 RF: 0 furosemide 40 mg tablet 40 mg PO BID RF: 0 famotidine 20 mg Tablet 20 mg PO DAILY RF: 0 hydralazine 50 mg tablet 50 mg PO .COMPLEX Qty: 90 RF: 11 hydralazine 25 mg tablet 25 mg PO .COMPLEX Qty: 90 RF: 11 metoprolol succinate 100 mg tablet extended release 24 hr 100 mg PO DAILY Qty: 90 RF: 3 isosorbide mononitrate 60 mg tablet extended release 24 hr 60 mg PO DAILY Qty: 90 RF: 3 losartan 25 mg tablet 25 mg PO DAILY Qty: 90 RF: 3 amlodipine 5 mg tablet 5 mg PO DAILY Qty: 90 RF: 3 Held glimepiride 2 mg tablet 2 mg PO QAM Qty: 90 RF: 0 Hold Instructions: Restart after discharge from TCU Trulicity 0.75 mg/0.5 mL pen injector 0.75 mg SUBCUT TH RF: 0 Hold Instructions: Restart after discharge from TCU insulin glargine 100 unit/mL (3 mL) insulin pen 15 unit SC DAILY Qty: 0 RF: 0 Hold Instructions: Restart on discharge after TCU Discontinued linezolid 600 mg tablet 600 mg PO Q12H 14 Days Qty: 28 RF: 0 Referrals / Follow Up: Everett Julien DPM [STAFF PHYSICIAN] - Weekly (Follow up at [facility] [phone]) Sarath Pineda MD [STAFF PHYSICIAN] - In 1 Week (At [facility]) Joseph Ricks MD [Primary Care Provider] - Within 1 Month Disposition Disposition (needs filled in before D/C Order can be placed): [facility] Care Facility
== END 2021-06-16 15:30 ==
LOC: ED 12:56 → PCU 06-15 07:06
PROVIDERS: Physician Assistant; Admitting Provider Internal Medicine; Emergency Provider Emergency Medicine; PCP Family Medicine; Visit Provider Internal Medicine
DX: L72.3 Sebaceous cyst (principal); E11.621 Type 2 diabetes mellitus with foot ulcer; L89.892 Pressure ulcer of other site, stage 2; Z89.431 Acquired absence of right foot; N17.9 Acute kidney failure, unspecified; I13.0 Hypertensive heart and chronic kidney disease with heart failure and stage 1 through stage 4 chronic kidney disease, or unspecified chronic kidney disease; I50.32 Chronic diastolic (congestive) heart failure; E11.42 Type 2 diabetes mellitus with diabetic polyneuropathy; E11.628 Type 2 diabetes mellitus with other skin complications; E11.59 Type 2 diabetes mellitus with other circulatory complications; E11.22 Type 2 diabetes mellitus with diabetic chronic kidney disease; E11.65 Type 2 diabetes mellitus with hyperglycemia; Z68.41 Body mass index [BMI] 40.0-44.9, adult; Z79.4 Long term (current) use of insulin; N18.32 Chronic kidney disease, stage 3b; I16.0 Hypertensive urgency; I25.5 Ischemic cardiomyopathy; Z79.82 Long term (current) use of aspirin; R20.2 Paresthesia of skin; L02.11 Cutaneous abscess of neck; E78.5 Hyperlipidemia, unspecified; I65.09 Occlusion and stenosis of unspecified vertebral artery; B37.2 Candidiasis of skin and nail; I87.2 Venous insufficiency (chronic) (peripheral); K21.9 Gastro-esophageal reflux disease without esophagitis; Z79.02 Long term (current) use of antithrombotics/antiplatelets; I25.10 Atherosclerotic heart disease of native coronary artery without angina pectoris; R53.81 Other malaise; L73.1 Pseudofolliculitis barbae; D64.9 Anemia, unspecified; R29.701 NIHSS score 1; I25.2 Old myocardial infarction; Z86.16 Personal history of COVID-19; E66.9 Obesity, unspecified; Z91.19 Patient's noncompliance with other medical treatment and regimen; Z79.899 Other long term (current) drug therapy
CPT/HCPCS: 10060; 36415; 70450; 70496; 70498; 71045; 73630; 80048; 80061; 82962; 84484; 85025; 85610; 85730; 87070; 87077; 87186; 87205; 87426; 93005; 93923; 94762; 96360; 96361; 96372; 97162; 97166; 97530; 97535; 99218; 99285; J7030; Q9967; A4216; G0378

== ENCOUNTER 2021-06-16 15:43 | Inpatient (IN) | payer OTHER, SELFPAY ==
[2018-12-25 08:56] VITALS: BMI 37.9
[2021-06-16 15:48] VITALS: BP 154/78; PULSE 84; RESP 20; TEMP 36.7; O2SAT 92; BMI 44.3
[2021-06-16 16:08] VITALS: BP 154/78; PULSE 84; RESP 20; TEMP 35.8; O2SAT 92
[2021-06-16 16:30] VITALS: PULSE 84; RESP 22; O2SAT 95
[2021-06-16 17:46] LABS: Bedside Glucose 158 mg/dL (74-106)
--- NOTE | 2021-06-16 19:12 | HP.PCM_ITS ---
HPI - General General Date of Admission: 06/16/21 HPI Narrative 06/14/2021 YOSEPH PERSAUD, is a 51 Male who presents to [facility] with neurologic signs/symptoms. 06/14/2021 EKG normal sinus rhythm, normal EKG. numbness, tingling left side of face, presented via EMS. Similar episodes for several days, no history of stroke. CT head negative, CTA head/neck negative. [facility] recommended NO TPA. 06/14/2021 Admit to Hospital. Patient not taking any of his medications. MRI brain, PT/OT, Aspirin Statin for stroke symptoms. Unasyn IV, Linezold, Podiatry consult, Vascular studies for diabetic left heel ulcer. Home blood pressure medications for hypertension. Insulin for Diabetes Mellitus II. IV Fluids, monitor BMP for acute on chronic kidney disease stage 3a. 06/15/2021 MRI brain intolerable due to claustrophobia. Repeat CT head negative, CTA neck showed less than 50% bilateral internal carotid artery stenosis. Left heel X-ray negative for osteomyelitis. Dr. Julien performed debridement left heel ulcer at bedside. Dr. Pineda consulted for right posterior neck abscess, started Doxycycline 100mg bid. 06/15/2021 Dr. Pineda incised and drained right posterior neck abscess. CAT doppler bilateral lower extremities normal. 06/16/2021 Cam boot left diabetic heel ulcer. Right posterior neck abscess growing staph aureus. Treated with Doxycycline 100mg bid pending culture sensitivity. 06/16/2021 Admit to TCU with debility, here for rehabilitation, strengthening, prior to discharge home alone. [facility] Medical History Atherosclerotic heart disease of [place] coronary artery without angina pectoris Chronic diastolic (congestive) heart failure Depression Diabetes mellitus, type II Essential (primary) hypertension History of non-ST elevation myocardial infarction (NSTEMI) (03/15/20) History of stress test Hyperlipidemia Ischemic cardiomyopathy (06/2013) Obesity Partial nontraumatic amputation of right foot Pneumonia due to COVID-19 virus (03/14/20) Venous insufficiency Home Medications Mag-Ox 400 400 mg PO DAILY 09/28/14 [History Last Taken 12/20/18] aspirin 81 mg PO DAILY@0800 09/28/14 [History Last Taken 12/20/18] nitroglycerin 0.4 mg sublingual tablet 0.4 mg SUBLINGUAL Q5-15M PRN 04/20/17 [History Last Taken Unknown] atorvastatin 80 mg PO QHS 12/20/18 [History Last Taken 12/19/18] glimepiride 2 mg tablet 2 mg PO QAM #90 tab 03/11/19 [Rx Last Taken Unknown] Trulicity 0.75 mg SUBCUT TH 08/21/20 [History Last Taken Unknown] insulin glargine 15 unit SC DAILY #0 ml 08/26/20 [Rx Last Taken Unknown] famotidine 20 mg PO DAILY 06/14/21 [History Last Taken Unknown] furosemide 40 mg PO BID 06/14/21 [History Last Taken Unknown] amlodipine 5 mg PO DAILY 06/16/21 [History Last Taken Unknown] clopidogrel 75 mg PO DAILY 06/16/21 [History Last Taken Unknown] doxycycline monohydrate 100 mg PO BID 06/16/21 [History Last Taken Unknown] hydralazine 25 mg PO .COMPLEX 06/16/21 [History Last Taken Unknown] hydralazine 50 mg PO .COMPLEX 06/16/21 [History Last Taken Unknown] insulin glargine [Lantus Solostar U-100 Insulin] 20 unit SUBCUT BID 06/16/21 [History Last Taken Unknown] insulin lispro [Humalog KwikPen Insulin] See Protocol SUBCUT ACHS 06/16/21 [History Last Taken Unknown] isosorbide mononitrate 60 mg PO DAILY 06/16/21 [History Last Taken Unknown] losartan 25 mg PO DAILY 06/16/21 [History Last Taken Unknown] metoprolol succinate 100 mg PO DAILY 06/16/21 [History Last Taken Unknown] nystatin [Nyamyc] 1 applic TOPICAL BID 06/16/21 [History Last Taken Unknown] Allergy/AdvReac Type Severity Reaction Status Date / Time lisinopril AdvReac Intermediate Cough Verified 12/26/20 17:34 losartan AdvReac Intermediate cough Verified 12/26/20 17:34 Family History Father , Age 57 from [place] Myocardial infarction CAD (coronary artery disease) Sudden cardiac Mother Sick sinus syndrome Sister Diabetes Surgical History H/O cardiac catheterization History of coronary artery stent placement (01/02/19) Social History (Updated 06/16/21 @ 19:[address] Blayne Matthews MD) household members: none Smoking Status: Never smoker alcohol intake: never substance use type: does not use ROS Constitutional Constitutional: Denies chills, fever(s) or weight gain ENT HEENT: Denies headache(s), nasal congestion or nasal discharge Cardiovascular Cardiovascular: Denies chest pain or palpitations Respiratory/Chest Respiratory/Chest: Denies cough, excessive phlegm production or shortness of breath with exertion Gastrointestinal Gastrointestinal: Denies abdominal pain, nausea or vomiting Genitourinary Genitourinary: Denies dysuria Musculoskeletal Musculoskeletal: Denies joint pain or joint swelling Integumentary Integumentary: Denies rash or wounds Neurologic Neurologic: Denies focal weakness, numbness or tingling Psychiatric Psychiatric: Denies anxiety, auditory hallucinations, depression, homicidal ideation or suicidal ideation Vital Signs Vital Signs Vital Signs: 06/16/21 15:48 06/16/21 16:08 06/16/21 16:30 Temperature 98.1 F 96.4 F L Temperature Source Temporal Temporal Pulse Rate 84 84 84 Pulse Rhythm Regular Pulse Strength Normal (2+) Respiratory Rate 20 H 20 H 22 H Respiratory Effort Non-Labored Respiratory Depth Normal Respiratory Pattern Normal Blood Pressure 154/78 H 154/78 H Blood Pressure Mean 103 103 Blood Pressure Source Monitor Monitor Blood Pressure Position Sitting Sitting Blood Pressure Location Left Forearm Left Forearm Pulse Ox 92 92 95 Oxygen Delivery Method Room Air Room Air Room Air Weight Weight: 144.242 kg Body Mass Index (BMI) 44.3 Physical Exam Const alert General Appearance: cooperative HEENT normocephalic Eyes PERRL and EOMs intact bilaterally Neck supple, no JVD and no carotid bruits Neck Narrative: Right posterior neck abscess dressed. Resp normal respiratory effort, normal air movement and clear to auscultation b ilaterally Cardio regular rate and regular rhythm GI normal to inspection, nondistended, normoactive bowel sounds, non-tender and non-distended Extremity normal capillary refill Extremity Narrative: Left lower extremity boot, right lower extremity dressing, MEME wrap. General Extremity: Negative for edema Skin no rashes or lesions noted General Skin Exam: no breakdown Psych affect normal Appearance: appropriate Results Lab / Micro Data Labs: Laboratory Results - last 24 hr 06/16/21 17:38: POC Glucose 158 H Assessment & Plan Assessment/Plan (1) Debility: (2) Facial paresthesia: (3) Noncompliance w/medication treatment due to intermit use of medication: (4) Infected sebaceous cyst: (5) Non-pressure chronic ulcer of other part of left foot with fat layer exposed: (6) Type 2 diabetes mellitus with diabetic neuropathy, unspecified: QUALIFIERS: Diabetes mellitus director news insulin use: unspecified halfway insulin use status Qualified Code(s): E11.40 - Type 2 diabetes mellitus with diabetic neuropathy, unspecified (7) Carotid artery stenosis: (8) Coronary artery disease: (9) Diabetes mellitus: (10) Hypertension: (11) Hypomagnesemia: (12) Chronic kidney disease, stage 3a: (13) Hyperlipidemia: PLAN: 51 year old male with below past medical history hospitalized with left facial paresthesia, stroke ruled out, complicated by infected left diabetic heel ulcer, infected posterior neck abscess staph aureus, admitted to TCU with debility, here for rehabilitation, strengthening, prior to discharge home alone. * Debility - PT/OT. * Pain - Tylenol 1000mg q6h prn pain (1-10). * Bowel - Miralax 17gm daily, senna/colace 1 tablet bid prn, Dulcolax 10mg daily prn. * Adult immunization - Administer prevnar 13, fluzone, covid19 vaccine as appropriate. * DVT prophylaxis - HAS-BLED score 2, Noé risk score 8, resident already on dual antiplatelet therapy, hold DVT chemoprophylaxis. * Hypertension - Metoprolol succinate 100mg daily, Losartan 25mg daily, Hydralazine 75mg bid, Amlodipine 5mg daily. * Coronary Artery Disease - Metoprolol succinate 100mg daily, Losartan 25mg daily, Isosorbide [place] 60mg daily, Plavix 75g daily, Aspirin 81mg daily, NTG 0.4mg SL Q5m prn. * Hyperlipidemia - Atorvastatin 80mg qhs. * S. aureus posterior neck abscess status post incision, drainage - Doxycycline 100mg bid thru 06/30/2021, Consult Dr. Pineda. * Diabetic left heel ulcer status post debridement - Consult Dr. Julien. * Chronic kidney disease stage 3a - monitor. * GERD - Famotidine 20mg daily. * Chronic diastolic congestive heart failure - Metoprolol succinate 100mg daily, Losartan 25mg daily, Hydralazzine 75mg bid, Furosemide 40mg bid. * Diabetes Mellitus II - Lantus 20 units bid, monitor blood sugar. * Hypomagnesemia - Magnesium chloride 128mg daily * Skin irritation - Calmoseptine topical bid. * Tinea Corporis - Nystatin powder topical bid. * Carotid artery stennosis - Monitor.
[2021-06-16] MEDS: Doxycycline 100 MG CAPSULE PO (19:31)
[2021-06-16] MEDS: Furosemide 40 MG Tablet PO (19:31)
[2021-06-16 19:32] VITALS: BP 154/78; PULSE 84
[2021-06-16] MEDS: hydrALAZINE 50 MG Tablet PO (19:32)
[2021-06-16 19:33] VITALS: BP 154/78; PULSE 84
[2021-06-16] MEDS: hydrALAZINE 25 MG Tablet PO (19:33)
[2021-06-16] MEDS: Atorvastatin Calcium 80 MG Tablet PO (21:31)
[2021-06-16 21:41] LABS: Bedside Glucose 168 mg/dL (74-106)
[2021-06-17] VITALS (7 sets, daily range): BP systolic 140–159; BP diastolic 74–75; PULSE 72–77; RESP 16–20; TEMP 36.3; O2SAT 88–96
[2021-06-17] MEDS: Menthol/Lanolin/Calamine/Znox 113 GM Tube 1 APPLIC TOPICAL ×2 (05:29→18:04)
[2021-06-17] MEDS: Polyethylene Glycol 3350 17 GM PACKET PO (05:30)
[2021-06-17] MEDS: Clopidogrel Bisulfate 75 MG Tablet PO (05:30)
[2021-06-17] MEDS: Famotidine 20 MG Tablet PO (05:30)
[2021-06-17] MEDS: Doxycycline 100 MG CAPSULE PO ×2 (05:30→18:00)
[2021-06-17] MEDS: Magnesium Chloride 64 MG Delay Rel.Tablet 128 MG PO (05:31)
[2021-06-17] MEDS: Furosemide 40 MG Tablet PO (05:31)
[2021-06-17] MEDS: amLODIPine 5 MG Tablet PO (05:31)
[2021-06-17] MEDS: Metoprolol(XL)Succ 100 MG Tablet PO (05:34)
[2021-06-17] MEDS: hydrALAZINE 25 MG Tablet PO ×2 (05:34→17:59)
[2021-06-17] MEDS: hydrALAZINE 50 MG Tablet PO ×2 (05:35→18:00)
[2021-06-17] MEDS: 0.9% Saline Lock 10 ML Syringe IV ×2 (05:38→20:18)
[2021-06-17 05:45] LABS: Absolute Neutrophil Count 4.2 X10^3/uL (2.0-7.7); Basophil# 0.03 X10^3/uL; Basophil% 0.5 % (0-1); Eosinophil# 0.18 X10^3/uL; Eosinophils% 2.9 % (0-5); Hematocrit 33.2 % (40-54); Lymphocyte % 16.3 % (19-41); Mean Corp Hgb Conc 30.1 g/dL (32-36); Mean Corpuscular Hgb 25.6 pg (27.0-32.0); Mean Corpuscular Volume 85.1 fL (80-94); Mean Platelet Vol. 10.4 fl (6.2-12.0); Monocyte# 0.66 X10^3/uL; Monocyte% 10.7 % (0-10); NRBC Flagged by Analyzer 0 % (0-5); Neutrophil # 4.24 X10^3/uL (2.7-7.7); Neutrophil % 69.1 % (47-70); Platelet Count 282 K/mm3 (150-450); RBC Distribution Width CV 16.3 % (11.6-14.6); White Blood Count 6.1 K/mm3 (4.4-11.0)
[2021-06-17 06:29] LABS: Anion Gap 4 (5-15); BUN 59 mg/dL (7-18); BUN/Creat Ratio 18.7 RATIO (10-20); Calcium,Total 8.4 mg/dL (8.5-10.1); Chloride 109 mmol/L (98-107); Creatinine, Serum 3.15 mg/dL (0.70-1.30); EST Glomerular Filtration Rate 22 mL/min (>60); Est Glom Filt Rate - Afr Amer 27 mL/min (>60); Estimated Creatinine Clearance 28.88 ml/min; Glucose 82 mg/dL (74-106); Sodium Level 141 mmol/L (136-145)
[2021-06-17 06:31] LABS: Bedside Glucose 112 mg/dL (74-106)
--- NOTE | 2021-06-17 06:32 | NURSING ---
Talked with patient regarding his swollen scrotum. Discussed medications he is taking and elevating his scrotum through the day to try to remove some of the fluid that he is retaining. Informed him that the physician will be in to see him this morning. Will continue to monitor.
[2021-06-17] MEDS: Losartan Potassium 25 MG Tablet PO (06:41)
[2021-06-17] MEDS: Isosorbide Mononitrate 60 MG Tablet PO (06:41)
[2021-06-17] MEDS: Nystatin Powder 15gm Bottle 1 APPLIC TOPICAL ×2 (06:44→18:07)
[2021-06-17] MEDS: Aspirin 81 MG TAB.CHEW PO (08:55)
[2021-06-17 11:16] LABS: Bedside Glucose 112 mg/dL (74-106)
[2021-06-17] MEDS: Glucerna Shake 120 ML LIQUID PO (11:47)
[2021-06-17] MEDS: Tuberculin,Purif.prot.deriv. 50 TU/ML Vial 0.1 ML ID (11:48)
--- NOTE | 2021-06-17 12:34 | CASEMGMT ---
Social Work Met with patient and son in room. Introduced self and role. Pt granted permission for this worker to complete assessment with son present. Explained [employer] insurance with [employer] 06/23 and continued stay is not guaranteed with each review. When insurance issues a DC date, the pt would need to DC the next day. The goal is for pt to return home with son. Son does work health services director, but stated neighbors could check in as needed to assist when he is at work. Pt is TTWBS currently and has two steps to enter home then two steps to main living area. Pt was independent and working prior. SW to continue to follow for DC planning. Monica Serrano, RING MAKING MACHINE OPERATOR WARNING ANALYST
--- NOTE | 2021-06-17 13:16 | PCM.PN.SRG ---
Subjective Subjective Patient is status post an I&D of the abscess on his right posterior neck. States the area is feeling better. Objective Data Objective Data Dressing was removed still significant induration around the area but no undrained abscess cavity. Vital Signs: Vital Signs Temp Pulse Resp BP Pulse Ox 96.4 F L 72 22 H 140/74 H 92 06/16/21 16:08 06/17/21 05:35 06/16/21 16:30 06/17/21 05:35 06/17/21 09:15 Oxygen Delivery Method Room Air Weight: 318 lb Body Mass Index (BMI) 44.3 Intake & Output: Intake and Output for Last 24 Hours 06/15/21 06/16/21 06/17/21 23:59 23:59 23:59 Intake Total 240 / 240 120 / 120 Balance 240 / 240 120 / 120 Lab / Micro Data Result Diagrams: 06/17/21 05:30 06/17/21 05:30 Labs: Laboratory Results - last 24 hr 06/16/21 17:38: POC Glucose 158 H 06/16/21 21:27: POC Glucose 168 H 06/17/21 05:30: WBC 6.1, RBC 3.90 L, Hgb 10.0 L, Hct 33.2 L, MCV 85.1, MCH 25.6 L, MCHC 30.1 L, RDW Std Deviation 51.0 H, RDW Coeff of Rajendra 16.3 H, Plt Count 282, MPV 10.4, Immature Gran % (Auto) 0.500, Neut % (Auto) 69.1, Lymph % (Auto) 16.3 L, [place] % (Auto) 10.7 H, Eos % (Auto) 2.9, Baso % (Auto) 0.5, Absolute Neuts (auto) 4.2, Absolute Lymphs (auto) 1.00, Nucleated RBC % 0 06/17/21 05:30: Sodium 141, Potassium 4.0, Chloride 109 H, Carbon Dioxide 28.0, Anion Gap 4 L, BUN 59 H, Creatinine 3.15 H, Estim Creat Clear Calc 28.88, Est GFR (MDRD) Af Amer 27 L, Est GFR (MDRD) Non-Af 22 L, BUN/Creatinine Ratio 18.7, Glucose 82, Calcium 8.4 L 06/17/21 06:14: POC Glucose 112 H 06/17/21 11:11: POC Glucose 112 H Assessment & Plan Assessment/Plan (1) Infected sebaceous cyst: PLAN: Continue to do wet-to-dry dressing changes continue IV antibiotics
--- NOTE | 2021-06-17 14:24 | NURSING ---
IN TO SEE PT AND LOOKED AT RIGHT SIDE OF NECK/WOUND.. SEE REPORTS/NEW ORDERS.
[2021-06-17 16:36] LABS: Bedside Glucose 155 mg/dL (74-106)
[2021-06-17] MEDS: Atorvastatin Calcium 80 MG Tablet PO (20:17)
[2021-06-17 21:20] LABS: Bedside Glucose 168 mg/dL (74-106)
--- NOTE | 2021-06-17 21:24 | NURSING ---
Patient observed self-transferring from bathroom. A&Ox3. Educated on Ax1 per order TTWB. Pt. states Oh just look the other way, I can do it myself. Pt. encouraged to utilize call button for staff assist to promote safety Pt. often calling staff grannie or little girl. Pt. educated on alarm to alert staff of unassisted transfers, pt. states Don't put that shit on me, I don't give a shit. Pt. refuses alarm. Assisted to bed x1 assist per pt. request, educated to maintain TTWB. Pt. encouraged to utilize call button. Denies pain. Denies requests. Call light in reach.
--- NOTE | 2021-06-18 02:08 | NURSING ---
A&Ox3. Pt. refuses O2 at HS as stated in handoff, states I never needed it before, I'm not using it now. Offered x3 attempts, pt. declined.
[2021-06-18 06:41] VITALS: BP 156/82; PULSE 77
[2021-06-18] MEDS: Metoprolol(XL)Succ 100 MG Tablet PO (06:41)
[2021-06-18 06:42] VITALS: BP 156/82; PULSE 77
[2021-06-18] MEDS: Isosorbide Mononitrate 60 MG Tablet PO (06:42)
[2021-06-18] MEDS: Famotidine 20 MG Tablet PO (06:42)
[2021-06-18] MEDS: Magnesium Chloride 64 MG Delay Rel.Tablet 128 MG PO (06:42)
[2021-06-18] MEDS: hydrALAZINE 25 MG Tablet PO ×2 (06:42→17:16)
[2021-06-18] MEDS: hydrALAZINE 50 MG Tablet PO ×2 (06:42→17:16)
[2021-06-18] MEDS: Doxycycline 100 MG CAPSULE PO ×2 (06:42→17:17)
[2021-06-18] MEDS: Clopidogrel Bisulfate 75 MG Tablet PO (06:42)
[2021-06-18] MEDS: amLODIPine 5 MG Tablet PO (06:42)
[2021-06-18] MEDS: Losartan Potassium 25 MG Tablet PO (06:45)
[2021-06-18 06:46] LABS: Bedside Glucose 144 mg/dL (74-106)
[2021-06-18 07:55] LABS: Anion Gap 3 (5-15); BUN 60 mg/dL (7-18); BUN/Creat Ratio 18.8 RATIO (10-20); Calcium,Total 8.9 mg/dL (8.5-10.1); Chloride 110 mmol/L (98-107); Creatinine, Serum 3.19 mg/dL (0.70-1.30); EST Glomerular Filtration Rate 22 mL/min (>60); Est Glom Filt Rate - Afr Amer 26 mL/min (>60); Estimated Creatinine Clearance 28.52 ml/min; Glucose 154 mg/dL (74-106); Potassium 4.4 mmol/L (3.5-5.1); Sodium Level 141 mmol/L (136-145)
[2021-06-18] MEDS: Aspirin 81 MG TAB.CHEW PO (08:38)
[2021-06-18 11:16] LABS: Bedside Glucose 183 mg/dL (74-106)
[2021-06-18 13:51] VITALS: BP 153/76; PULSE 77; RESP 18; TEMP 36.3; O2SAT 95
[2021-06-18 16:45] LABS: Bedside Glucose 140 mg/dL (74-106)
[2021-06-18 17:16] VITALS: PULSE 77
--- NOTE | 2021-06-18 17:20 | NURSING ---
Up in chair. Denies pain. States he had mohsen and powder earlier today. Will put more on while resident in bed. Pleasant and talkative at this time.
--- NOTE | 2021-06-18 17:28 | NURSING ---
Dressing changed to Rt side of neck. [place] wound bed. No active drainage noted.
[2021-06-18 21:11] LABS: Bedside Glucose 200 mg/dL (74-106)
[2021-06-18] MEDS: Atorvastatin Calcium 80 MG Tablet PO (21:15)
[2021-06-18 22:26] VITALS: PULSE 62; RESP 18; O2SAT 93
[2021-06-19] MEDS: Famotidine 20 MG Tablet PO (06:08)
[2021-06-19] MEDS: Clopidogrel Bisulfate 75 MG Tablet PO (06:08)
[2021-06-19] MEDS: amLODIPine 5 MG Tablet PO (06:08)
[2021-06-19] MEDS: Isosorbide Mononitrate 60 MG Tablet PO (06:08)
[2021-06-19 06:09] VITALS: BP 156/84; PULSE 72
[2021-06-19] MEDS: Losartan Potassium 25 MG Tablet PO (06:09)
[2021-06-19] MEDS: hydrALAZINE 50 MG Tablet PO ×2 (06:09→17:25)
[2021-06-19] MEDS: Magnesium Chloride 64 MG Delay Rel.Tablet 128 MG PO (06:09)
[2021-06-19] MEDS: hydrALAZINE 25 MG Tablet PO ×2 (06:09→17:25)
[2021-06-19] MEDS: Doxycycline 100 MG CAPSULE PO ×2 (06:09→17:25)
[2021-06-19 06:10] VITALS: BP 156/84; PULSE 72
[2021-06-19] MEDS: Metoprolol(XL)Succ 100 MG Tablet PO (06:10)
[2021-06-19 06:26] LABS: Bedside Glucose 154 mg/dL (74-106)
[2021-06-19] MEDS: Aspirin 81 MG TAB.CHEW PO (08:26)
[2021-06-19 12:21] LABS: Bedside Glucose 134 mg/dL (74-106)
[2021-06-19 15:42] VITALS: BP 143/72; PULSE 71; RESP 18; TEMP 36.8; O2SAT 92
[2021-06-19 16:50] LABS: Bedside Glucose 178 mg/dL (74-106)
[2021-06-19 17:25] VITALS: BP 160/79; PULSE 72
[2021-06-19] MEDS: Menthol/Lanolin/Calamine/Znox 113 GM Tube 1 APPLIC TOPICAL (17:26)
[2021-06-19] MEDS: 0.9% Saline Lock 10 ML Syringe IV (17:27)
[2021-06-19] MEDS: Atorvastatin Calcium 80 MG Tablet PO (20:25)
--- NOTE | 2021-06-19 21:25 | NURSING ---
Spoke w/ Dr. Matthews via phone to update on pt's request to speak w/ him tomorrow am re: scrotal swelling. New orders received for Lasix 40 mg po x1 now, then start 40 mg po daily; K+ 20- mEq po daily to start tomorrow; elevate scrotom while in bed/recliner; and recheck BMP on 06/21. All orders read back.
[2021-06-19 22:06] LABS: Bedside Glucose 204 mg/dL (74-106)
[2021-06-19] MEDS: Furosemide 40 MG Tablet PO (22:28)
[2021-06-20 06:19] VITALS: BP 162/91; PULSE 72
[2021-06-20] MEDS: Famotidine 20 MG Tablet PO (06:19)
[2021-06-20] MEDS: amLODIPine 5 MG Tablet PO (06:19)
[2021-06-20] MEDS: Doxycycline 100 MG CAPSULE PO ×2 (06:19→18:28)
[2021-06-20] MEDS: Clopidogrel Bisulfate 75 MG Tablet PO (06:19)
[2021-06-20] MEDS: Isosorbide Mononitrate 60 MG Tablet PO (06:19)
[2021-06-20] MEDS: Losartan Potassium 25 MG Tablet PO (06:19)
[2021-06-20] MEDS: hydrALAZINE 25 MG Tablet PO ×2 (06:19→18:28)
[2021-06-20] MEDS: Magnesium Chloride 64 MG Delay Rel.Tablet 128 MG PO (06:19)
[2021-06-20 06:20] VITALS: BP 162/91; PULSE 72
[2021-06-20] MEDS: hydrALAZINE 50 MG Tablet PO ×2 (06:20→18:28)
[2021-06-20] MEDS: Metoprolol(XL)Succ 100 MG Tablet PO (06:20)
[2021-06-20] MEDS: Furosemide 40 MG Tablet PO (06:23)
[2021-06-20 06:31] LABS: Bedside Glucose 148 mg/dL (74-106)
--- NOTE | 2021-06-20 06:50 | NURSING ---
Upon going in to give AM med, pt informed me that he had an area on his left arm. He had had a nightmare and appears that he rubbed his arm raw on the wooden arm of the chair. Area about quarter sized. Cleaned with NS and meplex applied. No c/o pain from area noted.
[2021-06-20] MEDS: Aspirin 81 MG TAB.CHEW PO (08:34)
[2021-06-20] MEDS: Potassium Chloride Oral Tablet 20 MEQ PO (08:34)
[2021-06-20 11:06] LABS: Bedside Glucose 191 mg/dL (74-106)
--- NOTE | 2021-06-20 11:46 | PCM.PN.RX ---
Progress Note - Pharmacy Subjective: TCU ADMISSION Objective: Allergies lisinopril Adverse Reaction (Intermediate, Verified 12/26/20 17:34) Cough losartan Adverse Reaction (Intermediate, Verified 12/26/20 17:34) cough Current Medications Generic Name Dose Route Start Last Admin Trade Name Freq PRN Reason Stop Dose Admin Acetaminophen 1,000 mg 06/16/21 19:42 Acetaminophen 500 Mg Tablet PO Q6H PRN PRN Pain Score 1-10 Amlodipine Besylate 5 mg 06/17/21 06:00 06/20/21 06:19 Amlodipine 5 Mg Tablet PO 5 mg DAILY PAMELA Administration Aspirin 81 mg 06/17/21 08:00 06/20/21 08:34 Aspirin 81 Mg Tab.Chew PO 81 mg 0800 PAMELA Administration Atorvastatin Calcium 80 mg 06/16/21 22:00 06/19/21 20:25 Atorvastatin Calcium 80 Mg Tablet PO 80 mg QHS PAMELA Administration Bisacodyl 10 mg 06/16/21 19:42 Bisacodyl 5 Mg Tablet PO DAILY PRN CONSTIPATION Calamine/Phenol 1 applic 06/16/21 18:00 06/20/21 06:23 Menthol/Lanolin/Calamine/Znox 113 Gm Tube TOPICAL Not Given BID [facility] Protocol Clopidogrel Bisulfate 75 mg 06/17/21 06:00 06/20/21 06:19 Clopidogrel Bisulfate 75 Mg Tablet PO 75 mg DAILY PAMELA Administration Doxycycline Monohydrate 100 mg 06/16/21 18:00 06/20/21 06:19 Doxycycline 100 Mg Capsule PO 06/30/21 18:01 100 mg BID PAMELA Administration Famotidine 20 mg 06/17/21 06:00 06/20/21 06:19 Famotidine 20 Mg Tablet PO 20 mg DAILY PAMELA Administration Furosemide 40 mg 06/20/21 06:00 06/20/21 06:23 Furosemide 40 Mg Tablet PO 40 mg DAILY PAMELA Administration Hydralazine HCl 25 mg 06/16/21 18:00 06/20/21 06:19 Hydralazine 25 Mg Tablet PO 25 mg BID PAMELA Administration Hydralazine HCl 50 mg 06/16/21 18:00 06/20/21 06:20 Hydralazine 50 Mg Tablet PO 50 mg BID PAMELA Administration Insulin Glargine 20 units 06/16/21 18:00 06/20/21 06:24 Insulin Glargine 100 Units/Ml Pen SC 20 units BID PAMELA Administration Isosorbide Mononitrate 60 mg 06/17/21 06:00 06/20/21 06:19 Isosorbide Mononitrate 60 Mg Tablet PO 60 mg DAILY PAMELA Administration Losartan Potassium 25 mg 06/17/21 06:00 06/20/21 06:19 Losartan Potassium 25 Mg Tablet PO 25 mg DAILY PAMELA Administration Magnesium Chloride 128 mg 06/17/21 06:00 06/20/21 06:19 Magnesium Chloride 64 Mg Delay Rel.Tablet PO 128 mg DAILY PAMELA Administration Metoprolol Succinate 100 mg 06/17/21 06:00 06/20/21 06:20 Metoprolol(Xl)Succ 100 Mg Tablet PO 100 mg DAILY PAMELA Administration Nitroglycerin 0.4 mg 06/16/21 18:08 Nitroglycerin (Inpatient Use) 0.4 Mg Tab.Subl SL Q5M PRN CARDIAC/CHEST PAIN Nutritional Formula (Lactose Free) 120 ml 06/17/21 12:00 06/20/21 06:23 Glucerna Shake 120 Ml Liquid PO Not Given 4X/DAY PAMELA Nystatin 1 applic 06/16/21 18:00 06/20/21 06:24 Nystatin Powder 15gm Bottle TOPICAL Not Given BID [facility] Protocol Polyethylene Glycol 17 gm 06/17/21 06:00 06/20/21 06:23 Polyethylene Glycol 3350 17 Gm Packet PO Not Given DAILY PAMELA Potassium Chloride 20 meq 06/20/21 08:00 06/20/21 08:34 Potassium Chloride Oral Tablet 20 Meq PO 20 meq DAILYCM PAMELA Administration Senna/Docusate Sodium 1 tablet 06/16/21 19:42 Senna/Docusate Sodium 1 Tablet PO BID PRN Constipation Sodium Chloride 10 - 40 ml 06/16/21 16:36 06/19/21 17:27 0.9% Saline Lock 10 Ml Syringe IV 10 ml UD PRN Administration SALINE FLUSH Sodium Chloride 10 - 40 ml 06/16/21 17:12 0.9% Saline Lock 10 Ml Syringe IV UD PRN SALINE FLUSH Tuberculin PPD 0.1 ml 06/24/21 10:00 Tuberculin,Purif.Prot.Deriv. 50 Tu/Ml Vial ID 06/24/21 10:01 X1 ONE Problem List (Last Reviewed 06/16/21 @ 19:[address] Blayne Matthews MD) Hyperlipidemia (Acute) Chronic kidney disease, stage 3a (Chronic) Hypomagnesemia (Acute) Hypertension (Chronic) Diabetes mellitus (Acute) Coronary artery disease (Acute) Carotid artery stenosis (Acute) Noncompliance w/medication treatment due to intermit use of medication (Acute) Debility (Acute) Infected sebaceous cyst (Acute) Facial paresthesia (Acute) Type 2 diabetes mellitus with diabetic neuropathy, unspecified (Acute) Non-pressure chronic ulcer of other part of left foot with fat layer exposed (Chronic) Vital Signs Temp Pulse Resp BP Pulse Ox 98.3 F 72 18 162/91 H 92 06/19/21 15:42 06/20/21 06:20 06/19/21 15:42 06/20/21 06:20 06/19/21 15:42 Oxygen Delivery Method Room Air Weight: 144.242 kg Body Mass Index (BMI) 44.3 Sodium 141 mmol/L (136-145) 06/18/21 07:05 Potassium 4.4 mmol/L (3.5-5.1) 06/18/21 07:05 Chloride 110 mmol/L (98-107) H 06/18/21 07:05 Carbon Dioxide 28.0 mmol/L (21.0-32.0) 06/18/21 07:05 Anion Gap 3 (5-15) L 06/18/21 07:05 BUN 60 mg/dL (7-18) H 06/18/21 07:05 Creatinine 3.19 mg/dL (0.70-1.30) H 06/18/21 07:05 Est GFR (MDRD) Af Amer 26 mL/min (>60) L 06/18/21 07:05 Est GFR (MDRD) Non-Af 22 mL/min (>60) L 06/18/21 07:05 BUN/Creatinine Ratio 18.8 RATIO (10-20) 06/18/21 07:05 Glucose 154 mg/dL (74-106) H 06/18/21 07:05 Assessment/Plan: 1. Pain: Tylenol 1000mg PO Q6h PRN Pain 1-10. Please continue to monitor for increased/decreased S/S pain, PRN medication usage. 2. HTN/ CAD/CHF: Norvasc 5mg PO Daily, Aspirin 81mg PO Daily, Lipitor 80mg PO QHS, Plavix 75mg PO Daily, Lasix 40mg PO Daily, Hydralazine 75mg PO BID, Imdur 60mg PO Daily, Losartan 25mg PO Daily, Toprol XL 100mg PO Daily, Nitrostat PRN. Please continue to monitor electrolytes, I/O, BP (last 162/91), pulse (last 72 BPM), S/S bleeding/bruising, S/S swelling, lipid panel annually or sooner as clinically indicated. *3. Neck Abscess (MRSA+, sensitive to Doxycycline): Doxycycline 100mg PO BID thru 06/30/21. Please continue to monitor for resolution of infection, avoid administration of Magnesium within 2 hours of Doxycycline to ensure effectiveness of antibiotic, thank you. 4. Diabetes, Type II: Lantus 20 unit SC BID. Please continue to monitor blood glucose levels (Last 154), A1c every three months, S/S hypoglycemia. 5. Hypokalemia: KCl 20mEq PO Daily. Please continue to monitor K levels (last 4.4 on 06/18), especially since patient is also on a diuretic. 6. GERD: Pepcid 20mg PO Daily. Please continue to monitor for S/S GERD exacerbations, renal function. may also encourage non-pharmacologic treatments to reduce GERD flare-ups as well. 7. General Wellness: magnesium Chloride 128mg PO Daily. Please continue to monitor magnesium levels as clinically indicated. Psychotropic Medications: None Unnecessary Medications: None Bowel Regimen: Miralax 17g PO Daily, Dulcolax 10mg PO Daily PRN, senna/Docusate 1 tab PO BID PRN. The patient has refused 3 of the last 4 doses of Miralax. Please consider changing to PRN schedule if clinically appropriate, thank you. Date of Note:: 06/20/21
--- NOTE | 2021-06-20 11:51 | NURSING ---
Resident educated on the COVID-19 Vaccine and does not want to receive it.
--- NOTE | 2021-06-20 13:46 | PN_ITS ---
Progress Note Patient seen and examined during AM rounds. Reports some boredom and eagerness to return home. States that his right neck pain is improving. He also complains of some associated itchiness. Physical Exam Neck Neck Narrative: Right posterior neck with decreasing margin of erythema/induration. Packing is removed and there is just bloody drainage from the cavity. Assessment & Plan Assessment/Plan (1) Infected sebaceous cyst: PLAN: Status post bedside I&D last week. Area of induration/erythema is improving. Scant serosanguineous drainage. Recommend daily showering, evacuation of water then packing with plain packing strip until resolution. Should the patient be discharged from TCU, would like to see the patient in follow-up for a wound check 1 week post discharge. I reiterated the need to maintain tighter glycemic control once he is discharged to facilitate wound healing. Visit Charges Inpatient E&M: [id number] [facility] L1
--- NOTE | 2021-06-20 14:19 | WOUNDNOTE ---
wound photo: right neck
--- NOTE | 2021-06-20 14:20 | WOUNDNOTE ---
wound photo: right lateral foot
--- NOTE | 2021-06-20 14:20 | WOUNDNOTE ---
wound photo: left heel
[2021-06-20 15:06] VITALS: BP 169/79; PULSE 74; RESP 18; TEMP 36; O2SAT 92
[2021-06-20 15:51] LABS: Bedside Glucose 167 mg/dL (74-106)
[2021-06-20 18:28] VITALS: BP 162/78; PULSE 80
[2021-06-20] MEDS: Menthol/Lanolin/Calamine/Znox 113 GM Tube 1 APPLIC TOPICAL (18:29)
--- NOTE | 2021-06-20 18:48 | PN_ITS ---
Subjective Subjective This 51-year-old male was seen bedside for left foot ulceration secondary to poorly controlled diabetes in setting of peripheral neuropathy. Patient denies any fever, chills, nausea, vomiting, chest pain, calf pain, shortness of breath, or other constitutional symptoms. Patient denies any new changes notes that [facility] change his dressing this afternoon. He denies any pain to the site. Reports that he has been ambulating in a walking boot to his left lower extremity assisted by a walker. Patient notes plan is for him to discharge home with home health care nurses for dressing changes. Objective Data Objective Data Vital Signs: Vital Signs Temp Pulse Resp BP Pulse Ox 96.8 F L 80 18 162/78 H 92 06/20/21 15:06 06/20/21 18:28 06/20/21 15:06 06/20/21 18:28 06/20/21 15:06 Oxygen Delivery Method Room Air Weight: 144.242 kg Body Mass Index (BMI) 44.3 Intake & Output: Intake and Output for Last 24 Hours 06/18/21 06/19/21 06/20/21 22:59 23:59 23:59 Intake Total 720 / 720 Balance 720 / 720 Lab / Micro Data Result Diagrams: 06/17/21 05:30 06/18/21 07:05 Labs: Laboratory Results - last 24 hr 06/19/21 21:59: POC Glucose 204 H 06/20/21 06:23: POC Glucose 148 H 06/20/21 10:52: POC Glucose 191 H 06/20/21 15:44: POC Glucose 167 H Physical Exam Const alert, oriented x3 and no apparent distress General Appearance: cooperative and comfortable HEENT normocephalic Eyes General Eye: normal appearance of both eyes Neck General: normal visual inspection Lymph Lymphatic: no lymphadenopathy noted and no lymphedema noted Chest inspection of chest normal Resp normal respiratory effort Cardio regular rate and regular rhythm Peripheral Pulses: posterior tibial pulses present and dorsalis pedis pulses present Extremity no calf tenderness Extremity Narrative: Capillary refill brisk to the digits Peripheral Pulses: Yes posterior tibial pulses present and dorsalis pedis pulses present Skin no rashes or lesions noted and no jaundice General Skin Exam: turgor normal Neuro oriented x3 and moves all extremities Motor Exam: strength 5/5 throughout and clonus absent Assessment & Plan Assessment/Plan (1) Type 2 diabetes mellitus with foot ulcer: (2) Diabetes mellitus with diabetic polyneuropathy: (3) Non-pressure 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 of bone: PLAN: 51-year-old male seen bedside for follow-up of left heel ulceration complicated by uncontrolled diabetes mellitus type 2 with peripheral polyneuropathy, and chronic pressure to the left heel. Patient examined and evaluated all findings discussed with patient. Arterial studies were reviewed, patient has noncompressible vessels to the right lower extremity suggestive of arterial calcification. Patient has intact CAT and TBI's to left lower extremity suggestive of adequate blood flow for wound healing at this time. Since there are no wounds to the right lower extremity we will observe left lower extremity for wound healing progress, if there are any delays will consider vascular referral. Dressings changed today consisting of Betadine, Aquacel Ag, 4 x 4 gauze, Kerlix, ABD, Leonides wrap rolled onto the left foot with mild compression. Patient is placed into his cam walking boot to aid in offloading of the left heel. There is no localized erythema, purulent drainage, malodor, or other signs of infection on examination the wound bed demonstrates pink to reddish granular tissue with a mild serosanguineous drainage. I recommend continued dressing changes 3 times per week consisting of Aquacel Ag dry sterile dressing with compression via Leonides wrap. Now that he has been transferred to the transitional care unit, we will plan to follow patient on a weekly basis to provide continued local wound care. He should continue protected weightbearing in CAM walking boot assisted by walker to offload wound site. If there are any delays in healing will consider progressing weightbearing statu s to nonweightbearing, adding advanced wound care products, considering vascular referral, supplementing nutritional status. At this time patient's blood sugar is significantly improved as this should contribute to patient's wound healing potential. I discussed with him the need to continue to control his blood sugars and bring his A1c down as close to 6 as possible. I discussed with him the importance of this in his healing status, infection control, and overall health status. He voices understanding of this. We will plan to continue to follow the patient on a weekly basis and provide any local excisional debridements that we need at that time. Upon discharge from the transitional care unit he will follow up with Shane Hennessy.P.M. in the wound care center. Dr. Sarath Randle Jr., D.P.M. [facility] [phone]
[2021-06-20] MEDS: Citalopram 10 MG Tablet PO (21:28)
[2021-06-20] MEDS: Atorvastatin Calcium 80 MG Tablet PO (21:28)
[2021-06-20 22:10] LABS: Bedside Glucose 200 mg/dL (74-106)
[2021-06-20 22:18] VITALS: PULSE 80; RESP 18; O2SAT 90
[2021-06-21] VITALS (7 sets, daily range): BP systolic 119–159; BP diastolic 68–83; PULSE 67–79; RESP 16; TEMP 36; O2SAT 92
[2021-06-21] MEDS: hydrALAZINE 50 MG Tablet PO ×2 (06:17→17:14)
[2021-06-21] MEDS: Citalopram 10 MG Tablet PO (06:18)
[2021-06-21] MEDS: Famotidine 20 MG Tablet PO (06:18)
[2021-06-21] MEDS: Isosorbide Mononitrate 60 MG Tablet PO (06:18)
[2021-06-21] MEDS: Doxycycline 100 MG CAPSULE PO ×2 (06:18→17:14)
[2021-06-21] MEDS: Losartan Potassium 25 MG Tablet PO (06:18)
[2021-06-21] MEDS: amLODIPine 5 MG Tablet PO (06:18)
[2021-06-21] MEDS: Furosemide 40 MG Tablet PO (06:18)
[2021-06-21] MEDS: Metoprolol(XL)Succ 100 MG Tablet PO (06:18)
[2021-06-21] MEDS: Clopidogrel Bisulfate 75 MG Tablet PO (06:18)
[2021-06-21] MEDS: Magnesium Chloride 64 MG Delay Rel.Tablet 128 MG PO (06:19)
[2021-06-21] MEDS: hydrALAZINE 25 MG Tablet PO ×2 (06:21→17:13)
[2021-06-21 06:44] LABS: Anion Gap 3 (5-15); BUN 60 mg/dL (7-18); BUN/Creat Ratio 22.2 RATIO (10-20); Calcium,Total 8.6 mg/dL (8.5-10.1); Chloride 110 mmol/L (98-107); EST Glomerular Filtration Rate 26 mL/min (>60); Est Glom Filt Rate - Afr Amer 32 mL/min (>60); Glucose 161 mg/dL (74-106); Potassium 4.4 mmol/L (3.5-5.1); Sodium Level 143 mmol/L (136-145)
[2021-06-21 08:02] LABS: Bedside Glucose 167 mg/dL (74-106)
[2021-06-21] MEDS: Aspirin 81 MG TAB.CHEW PO (08:08)
[2021-06-21] MEDS: Potassium Chloride Oral Tablet 20 MEQ PO (08:08)
[2021-06-21 11:11] LABS: Bedside Glucose 175 mg/dL (74-106)
--- NOTE | 2021-06-21 13:18 | CASEMGMT ---
Social Work Met with pt, per request, to discuss DC plans. Pt requesting to DC home 06/24. Spoke with IDT - agreeable. Pt assured son can assist outside of work hours and sister does not work and can assist during the day. Pt requesting information of disability. SW to provide at care plan meeting tomorrow. Pt requesting HHC. Provided skilled HHC list with quality data. Pt agreeable to [facility]. Referral made for PT/OT/SN. Son to transport at [place]. Pt requesting [facility]. Referred to [facility] and [facility] 2020[facility] only [facility] and offer 30 visits. Spoke with therapy to confirm need. Therapy stated pt is Bob in room and can do HEP. Updated HHC and order for SN only. Updated pt of cost as well. SOC 06/24. Plan: DC home with son 06/24, [facility] SN. Monica Serrano, TRANSPORTATION INSPECTOR [employer]EL[employer]
--- NOTE | 2021-06-21 14:01 | CASEMGMT ---
Social Work Attempted to meet with patient in room to complete advanced directives, patient currently working with therapy. Social Work to continue to follow up with patient as able. Mariela Contreras MSW, [facility]
[2021-06-21 16:46] LABS: Bedside Glucose 183 mg/dL (74-106)
--- NOTE | 2021-06-21 20:20 | DS.PCM_ITS ---
Providers Date of Admission: 06/16/21 Primary Care Physician: Dr. Joseph Ricks MD Consultations 06/16/21 16:33 Consult: Onc/Wound/mold dresser Routine Comment: 06/16/21 17:14 Consult: General Surgery Routine Consulting Provider: Everett Ferrell Reason for Consult: Neck abscess. EMERGENT Consult: No Notified: Yes Date Notified: 06/17/21 Time Notified: 12:20 Method of Notification: Verbal Consult: Podiatry Routine Consulting Provider: Everett Julien Reason for Consult: Left foot abscess. EMERGENT Consult: No Notified: Yes Date Notified: 06/17/21 Time Notified: 12:22 Method of Notification: Verbal Reason For Visit: LEFT FOOT ULCER Diagnosis Discharge Diagnosis (1) Type 2 diabetes mellitus with foot ulcer: Status: Acute Code(s): E11.621 - Type 2 diabetes mellitus with foot ulcer; L97.509 - Non-pressure chronic ulcer of other part of unspecified foot with unspecified severity (2) Diabetes mellitus with diabetic polyneuropathy: Status: Acute Code(s): E11.42 - Type 2 diabetes mellitus with diabetic polyneuropathy (3) Non-pressure 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 of bone: Status: Acute Code(s): L97.424 - Non-pressure 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 of bone Medications at Discharge Home Medications aspirin 81 mg PO DAILY@0800 09/28/14 Lantus Solostar U-100 Insulin 20 unit SUBCUT BID 30 Days #12 ml 06/21/21 amlodipine 5 mg PO DAILY 30 Days #30 tab 06/21/21 atorvastatin 80 mg PO QHS 30 Days #30 tab 06/21/21 citalopram 10 mg PO DAILY 30 Days #30 tab 06/21/21 clopidogrel 75 mg PO DAILY 30 Days #30 tab 06/21/21 doxycycline monohydrate 100 mg PO BID 7 Days #14 cap 06/21/21 famotidine 20 mg PO DAILY 30 Days #30 tab 06/21/21 furosemide 40 mg PO DAILY 7 Days #7 tab 06/21/21 hydralazine 25 mg PO BID 30 Days #60 tab 06/21/21 hydralazine 50 mg PO BID 30 Days #60 tab 06/21/21 isosorbide mononitrate 60 mg PO DAILY 30 Days #30 tab 06/21/21 losartan 25 mg PO DAILY 30 Days #30 tab 06/21/21 metoprolol succinate 100 mg PO DAILY 30 Days #30 tab 06/21/21 potassium chloride [Klor-Con M20] 20 meq PO DAILYCM 7 Days #7 tab 06/21/21 Hospital Course Operations None Procedures - (incision and drainage right posterior neck abscess.) Summary of Care Provided Minutes Spent on Discharge: 35 Hospital Course: 51 year old male with below past medical history hospitalized with left facial paresthesia, stroke ruled out, complicated by infected left diabetic heel ulcer, infected posterior neck abscess staph aureus, admitted to TCU with debility, here for rehabilitation, strengthening, prior to discharge home alone. Resident has scrotal edema, will discharge with short course of Furosemide. Resident depressed, left him 11 months, discharge on Citalopram 10mg daily. Discharge home with son 06/24/2021, [facility] SN. Physical Exam Const alert General Appearance: cooperative HEENT normocephalic Eyes PERRL and EOMs intact bilaterally Neck supple, no JVD and no carotid bruits Resp normal respiratory effort, normal air movement and clear to auscultation bilaterally Cardio regular rate and regular rhythm GI normal to inspection, nondistended, normoactive bowel sounds, non-tender and n on-distended Extremity normal capillary refill Extremity Narrative: Left lower extremity boot. General Extremity: Negative for edema Skin no rashes or lesions noted General Skin Exam: no breakdown Psych affect normal Appearance: appropriate Weight / BMI Weight Weight: 142.088 kg Body Mass Index (BMI) 44.3 ABG / Lab / Microbiology Data Result Diagrams: 06/17/21 05:30 06/21/21 05:33 Laboratory: Laboratory Results - last 24 hr 06/20/21 21:07: POC Glucose 200 H 06/21/21 05:33: Sodium 143, Potassium 4.4, Chloride 110 H, Carbon Dioxide 30.0, Anion Gap 3 L, BUN 60 H, Creatinine 2.70 H, Estim Creat Clear Calc 33.70, Est GFR (MDRD) Af Amer 32 L, Est GFR (MDRD) Non-Af 26 L, BUN/Creatinine Ratio 22.2 H , Glucose 161 H, Calcium 8.6 06/21/21 06:17: POC Glucose 167 H 06/21/21 11:04: POC Glucose 175 H 06/21/21 15:46: POC Glucose 183 H D/C Instructions Discharge Diet: No restrictions Discharge Activity: Return to Normal Activity, May Shower and Use Walker Weight Bearing Status: No weight bearing (Left lower extremity.) Call your doctor if you observe: Fever of 101 or Higher, Inability to urinate, Inability to have a bowel movement, Shortness of breath, Dizziness, Fainting spells, Swelling in the ankles, Chest pain and Uncontrolled pain Additional Instructions: Discharge home with son 06/24/2021, [facility] SN. Please Follow Up With: Sarath Pineda MD When: 1 week. Meaningful Use Info Meaningful Use Diagnoses (Choose all that apply): None applicable Discharge Plan Admission Admit Date/Time: 06/16/21 15:43 Primary Reason for Your Visit: Debility. Attending Provider: Blayne Matthews Chi Primary Care Provider: Joseph Ricks Consulting Providers: Everett Julien ; Everett Ferrell Instructions Additional Instructions / Restrictions: Discharge home with son 06/24/2021, [facility] SN. Discharge Orders/Prescriptions Prescriptions: New furosemide 40 mg Tablet 40 mg PO DAILY 7 Days Qty: 7 RF: 0 citalopram 10 mg Tablet 10 mg PO DAILY 30 Days Qty: 30 RF: 0 hydralazine 25 mg Tablet 25 mg PO BID 30 Days Qty: 60 RF: 0 potassium chloride [Klor-Con M20] 20 mEq Tablet,Er Particles/Crystals 20 meq PO DAILYCM 7 Days Qty: 7 RF: 0 hydralazine 50 mg Tablet 50 mg PO BID 30 Days Qty: 60 RF: 0 Continued aspirin 81 MG tablet,chewable 81 mg PO DAILY@0800 RF: 0 atorvastatin 80 MG tablet 80 mg PO QHS 30 Days Qty: 30 RF: 0 metoprolol succinate 100 mg tablet extended release 24 hr 100 mg PO DAILY 30 Days Qty: 30 RF: 0 amlodipine 5 mg tablet 5 mg PO DAILY 30 Days Qty: 30 RF: 0 isosorbide mononitrate 60 mg tablet extended release 24 hr 60 mg PO DAILY 30 Days Qty: 30 RF: 0 famotidine 20 mg Tablet 20 mg PO DAILY 30 Days Qty: 30 RF: 0 doxycycline monohydrate 100 mg capsule 100 mg PO BID 7 Days Qty: 14 RF: 0 losartan 25 mg tablet 25 mg PO DAILY 30 Days Qty: 30 RF: 0 Lantus Solostar U-100 Insulin 100 unit/mL (3 mL) insulin pen 20 unit subcut BID 30 Days Qty: 12 RF: 0 Changed clopidogrel 75 MG tablet 75 mg PO DAILY 30 Days Qty: 30 RF: 0 Discontinued nitroglycerin 0.4 mg tablet, sublingual 0.4 mg SUBLINGUAL Q5-15M PRN (Reason: Cardiac/Chest Pain) RF: 0 glimepiride 2 mg tablet 2 mg PO QAM Qty: 90 RF: 0 Hold Instructions: Restart after discharge from TCU Mag-Ox 400 400 mg PO DAILY RF: 0 Trulicity 0.75 mg/0.5 mL pen injector 0.75 mg SUBCUT TH RF: 0 Hold Instructions: Restart after discharge from TCU insulin glargine 100 unit/mL (3 mL) insulin pen 15 unit SC DAILY Qty: 0 RF: 0 Hold Instructions: Restart on discharge after TCU furosemide 40 mg tablet 40 mg PO BID RF: 0 hydralazine 25 mg tablet 25 mg PO .COMPLEX RF: 0 hydralazine 50 mg tablet 50 mg PO .COMPLEX RF: 0 nystatin [Nyamyc] 100,000 unit/gram powder 1 applic topical BID RF: 0 insulin lispro [Humalog KwikPen Insulin] 100 unit/mL insulin pen See Protocol unit subcut ACHS RF: 0 Referrals / Follow Up: Joseph Ricks MD [Primary Care Provider] - Disposition Disposition (needs filled in before D/C Order can be placed): Home Health Service
[2021-06-21] MEDS: Atorvastatin Calcium 80 MG Tablet PO (21:44)
[2021-06-21 21:51] LABS: Bedside Glucose 197 mg/dL (74-106)
[2021-06-22 06:11] LABS: Bedside Glucose 166 mg/dL (74-106)
[2021-06-22 06:33] VITALS: BP 153/70; PULSE 75
[2021-06-22] MEDS: Furosemide 40 MG Tablet PO (06:33)
[2021-06-22] MEDS: Metoprolol(XL)Succ 100 MG Tablet PO (06:33)
[2021-06-22 06:34] VITALS: BP 153/70; PULSE 75
[2021-06-22] MEDS: hydrALAZINE 25 MG Tablet PO ×2 (06:34→17:02)
[2021-06-22] MEDS: Isosorbide Mononitrate 60 MG Tablet PO (06:34)
[2021-06-22] MEDS: hydrALAZINE 50 MG Tablet PO ×2 (06:34→17:02)
[2021-06-22] MEDS: Magnesium Chloride 64 MG Delay Rel.Tablet 128 MG PO (06:34)
[2021-06-22] MEDS: amLODIPine 5 MG Tablet PO (06:35)
[2021-06-22] MEDS: Citalopram 10 MG Tablet PO (06:35)
[2021-06-22] MEDS: Clopidogrel Bisulfate 75 MG Tablet PO (06:35)
[2021-06-22] MEDS: Doxycycline 100 MG CAPSULE PO ×2 (06:35→17:01)
[2021-06-22] MEDS: Famotidine 20 MG Tablet PO (06:35)
[2021-06-22] MEDS: Losartan Potassium 25 MG Tablet PO (06:36)
[2021-06-22] MEDS: Potassium Chloride Oral Tablet 20 MEQ PO (08:09)
[2021-06-22] MEDS: Aspirin 81 MG TAB.CHEW PO (08:09)
--- NOTE | 2021-06-22 10:15 | CASEMGMT ---
Addendum entered by Monica Serrano 06/22/21 11:51: Completed living will and HCPOA with pt. Pt named son, Juan A, as HCPOA. Original and copy provided to pt. Copy placed on chart. Original Note: Social Work IDT met with patient and son for care plan meeting. Discussed patient's progress in PT/OT and nursing. Pt progressing well. Pt will DC 06/24 home with son and sister assistance. Reiterated importance of maintaining WBS to make a successful recovery. Pt expressed understanding. Provided information on how to complete disability application. Explained [facility] SN and insurance coverage and visits. Pt expressed understanding and agreeable to proceed with services. Stressed importance of continuing with HEP since no continued structured therapy. Pt expressed understanding. Monica Serrano, RANDI HINTONW
[2021-06-22 10:50] LABS: Bedside Glucose 194 mg/dL (74-106)
[2021-06-22 11:14] VITALS: O2SAT 92
[2021-06-22 13:37] VITALS: BP 134/65; PULSE 73; RESP 18; TEMP 36.1; O2SAT 98
[2021-06-22 16:06] LABS: Bedside Glucose 187 mg/dL (74-106)
[2021-06-22 17:02] VITALS: PULSE 73
[2021-06-22] MEDS: Atorvastatin Calcium 80 MG Tablet PO (21:47)
[2021-06-22 21:56] LABS: Bedside Glucose 177 mg/dL (74-106)
[2021-06-22 22:00] VITALS: PULSE 92; RESP 16; O2SAT 92
[2021-06-23 06:36] VITALS: BP 159/86; PULSE 75
[2021-06-23] MEDS: Magnesium Chloride 64 MG Delay Rel.Tablet 128 MG PO (06:36)
[2021-06-23] MEDS: Doxycycline 100 MG CAPSULE PO (06:36)
[2021-06-23] MEDS: Metoprolol(XL)Succ 100 MG Tablet PO (06:36)
[2021-06-23] MEDS: amLODIPine 5 MG Tablet PO (06:36)
[2021-06-23] MEDS: Furosemide 40 MG Tablet PO (06:36)
[2021-06-23] MEDS: Isosorbide Mononitrate 60 MG Tablet PO (06:36)
[2021-06-23] MEDS: Citalopram 10 MG Tablet PO (06:36)
[2021-06-23 06:37] VITALS: BP 159/86; PULSE 75
[2021-06-23] MEDS: Losartan Potassium 25 MG Tablet PO (06:37)
[2021-06-23] MEDS: hydrALAZINE 25 MG Tablet PO (06:37)
[2021-06-23] MEDS: Famotidine 20 MG Tablet PO (06:37)
[2021-06-23] MEDS: Clopidogrel Bisulfate 75 MG Tablet PO (06:37)
[2021-06-23 06:46] LABS: Bedside Glucose 142 mg/dL (74-106)
[2021-06-23 06:47] VITALS: BP 159/86; PULSE 75
[2021-06-23] MEDS: hydrALAZINE 50 MG Tablet PO (06:47)
[2021-06-23 08:04] VITALS: O2SAT 92
[2021-06-23] MEDS: Potassium Chloride Oral Tablet 20 MEQ PO (08:34)
[2021-06-23] MEDS: Aspirin 81 MG TAB.CHEW PO (08:35)
[2021-06-23 10:00] VITALS: PULSE 73; RESP 18; O2SAT 94
[2021-06-23 10:23] VITALS: BP 148/80; PULSE 73; RESP 18; TEMP 36.3; O2SAT 94
[2021-06-23 11:01] LABS: Bedside Glucose 144 mg/dL (74-106)
--- NOTE | 2021-06-29 07:16 | MDS.RN ---
Information for the mds was obtained from review of the clinical record, interview of resident, staff, and direct observation of resident's care.
== END 2021-06-23 11:37 | disposition home health service (06) | DRG 292 ==
PROVIDERS: Admitting Provider Family Medicine Geriatric Medicine; PCP Family Medicine; Visit Provider Family Medicine Geriatric Medicine
DX: I13.0 Hypertensive heart and chronic kidney disease with heart failure and stage 1 through stage 4 chronic kidney disease, or unspecified chronic kidney disease (principal); I50.32 Chronic diastolic (congestive) heart failure; L02.11 Cutaneous abscess of neck; L97.422 Non-pressure chronic ulcer of left heel and midfoot with fat layer exposed; Z68.41 Body mass index [BMI] 40.0-44.9, adult; E11.22 Type 2 diabetes mellitus with diabetic chronic kidney disease; B35.4 Tinea corporis; B95.61 Methicillin susceptible Staphylococcus aureus infection as the cause of diseases classified elsewhere; E11.42 Type 2 diabetes mellitus with diabetic polyneuropathy; E11.621 Type 2 diabetes mellitus with foot ulcer; Z79.4 Long term (current) use of insulin; N18.31 Chronic kidney disease, stage 3a; E78.5 Hyperlipidemia, unspecified; I65.23 Occlusion and stenosis of bilateral carotid arteries; L72.3 Sebaceous cyst; I25.5 Ischemic cardiomyopathy; I25.10 Atherosclerotic heart disease of native coronary artery without angina pectoris; I25.2 Old myocardial infarction; N50.89 Other specified disorders of the male genital organs; E66.9 Obesity, unspecified; F32.A Depression, unspecified; Z79.82 Long term (current) use of aspirin; Z91.19 Patient's noncompliance with other medical treatment and regimen; Z79.899 Other long term (current) drug therapy; Z86.16 Personal history of COVID-19
CPT/HCPCS: 36415; 80048; 82962; 85025; 97110; 97116; 97161; 97166; 97530; 97535; 97802; A4216

== ENCOUNTER 2021-07-05 07:31 | Outpatient (RCR) | payer OTHER, SELFPAY ==
[2018-12-25 08:56] VITALS: BMI 37.9
[2021-07-05 08:02] VITALS: BP 169/66; PULSE 77; RESP 16; TEMP 35.8; BMI 39.0
--- NOTE | 2021-07-05 08:53 | HP.PCM_ITS ---
History of Present Illness Date of Service: 07/05/21 Chief Complaint: Right foot wound History of Wound: Patient is a follow-up for widespread ulcer of left heel and hindfoot. Patient has significant medical history including diabetes, congestive heart failure, hypertension, obesity, venous insufficiency, history of NSTEMI and COVID-19. Constitutional symptoms. Patient has been dressing the site with silver alginate dry sterile dressing daily at home.He has been attempting to offload the site with a surgical shoe. Patient has no other complaints. FOR[facility], LATER [facility] Medical History Atherosclerotic heart disease of [place] coronary artery without angina pectoris Chronic diastolic (congestive) heart failure Depression Diabetes mellitus, type II Essential (primary) hypertension History of non-ST elevation myocardial infarction (NSTEMI) (03/15/20) History of stress test Hyperlipidemia Ischemic cardiomyopathy (06/2013) Obesity Partial nontraumatic amputation of right foot Pneumonia due to COVID-19 virus (03/14/20) Venous insufficiency Home Medications aspirin 81 mg PO DAILY@0800 09/28/14 [History Last Taken 12/20/18] Lantus Solostar U-100 Insulin 20 unit SUBCUT BID 30 Days #12 ml 06/21/21 [Rx Last Taken Unknown] amlodipine 5 mg PO DAILY 30 Days #30 tab 06/21/21 [Rx Last Taken Unknown] atorvastatin 80 mg PO QHS 30 Days #30 tab 06/21/21 [Rx Last Taken Unknown] citalopram 10 mg PO DAILY 30 Days #30 tab 06/21/21 [Rx Last Taken Unknown] clopidogrel 75 mg PO DAILY 30 Days #30 tab 06/21/21 [Rx Last Taken Unknown] doxycycline monohydrate 100 mg PO BID 7 Days #14 cap 06/21/21 [Rx Last Taken Unknown] famotidine 20 mg PO DAILY 30 Days #30 tab 06/21/21 [Rx Last Taken Unknown] furosemide 40 mg PO DAILY 7 Days #7 tab 06/21/21 [Rx Last Taken Unknown] hydralazine 25 mg PO BID 30 Days #60 tab 06/21/21 [Rx Last Taken Unknown] hydralazine 50 mg PO BID 30 Days #60 tab 06/21/21 [Rx Last Taken Unknown] isosorbide mononitrate 60 mg PO DAILY 30 Days #30 tab 06/21/21 [Rx Last Taken Unknown] losartan 25 mg PO DAILY 30 Days #30 tab 06/21/21 [Rx Last Taken Unknown] metoprolol succinate 100 mg PO DAILY 30 Days #30 tab 06/21/21 [Rx Last Taken Unknown] potassium chloride [Klor-Con M20] 20 meq PO DAILYCM 7 Days #7 tab 06/21/21 [Rx Last Taken Unknown] Allergy/AdvReac Type Severity Reaction Status Date / Time lisinopril AdvReac Intermediate Cough Verified 07/05/21 08:08 losartan AdvReac Intermediate cough Verified 07/05/21 08:08 Family History Father , Age 57 from [place] Myocardial infarction CAD (coronary artery disease) Sudden cardiac Mother Sick sinus syndrome Sister Diabetes Surgical History H/O cardiac catheterization History of coronary artery stent placement (01/02/19) Social History (Updated 06/16/21 @ 19:[address] Blayne Matthews MD) household members: none Smoking Status: Never smoker alcohol intake: never substance use type: does not use Vital Signs Vital Signs Vital Signs: 07/05/21 08:02 Temperature 96.5 F L Temperature Source Temporal Pulse Rate 77 Respiratory Rate 16 Blood Pressure 169/66 H Blood Pressure Mean 100 Blood Pressure Source Monitor Blood Pressure Position Sitting Blood Pressure Location Right Forearm Oxygen Delivery Method Room Air Weight Weight: 127.006 kg Body Mass Index (BMI) 39.0 Physical Exam Narrative Patient alert oriented to person place and time. Patient ambulates unassisted normal shoe on the right lower extremity in a surgical shoe on the left. Vascular: Dorsalis pedis posterior tibial pulses palpable 2 out of 4 to bilateral lower extremity. Capillary fill time brisk to lesser digits. Digital hair growth present. +1 pitting edema noted bilateral lower extremity. Neurologic: Light touch protective sensation diminished bilateral feet. Dermatologic: Full-thickness ulceration noted to the plantar left heel mild pe riwound hyperkeratosis no deep probing or undermining at this time. Wound extends down to the level of subcutaneous tissue. No signs of acute infection such as erythema edema pain fluctuance or crepitus purulent drainage. There is noted to be mild serosanguineous drainage. Musculoskeletal: No gross musculoskeletal deformity leading to wound formation. No pain with calf squeeze. Muscular strength 5 out of 5 to bilateral lower extremity compartments. Debridement Note Debridement Note Post-Debridement Measurements and Additional Note: Post-Debridement Measurements/Treatment - Nurse 1 - General Ulcer Assessment Start: 07/05/21 08:02 Freq: Status: Active Protocol: RADHA Activity Type Activity Date Activity User E-Sign Co-Sign Detail Recorded Client Recorded Date Recorded By Document 07/05/21 08:02 [facility] [id number] 07/05/21 08:08 BMF 07/05/21 08:02 WC - Today's Visit Information Type of service Initial Visit Arrival Mode Ambulatory Transfer Assistance None Accompanied by sister Patient Identification Verified (Name & Yes ) Height and Weight Height 5 ft 11 in Weight 127.006 kg Weight in Pounds 280.0 lbs Weight Measurement Method Estimated by Patient Body Mass Index (BMI) 39.0 BMI Classification Obese BSA - Chris 2.43 Vital Signs Temperature (97.8 F-99.1 F) 96.5 F L Temperature Source Temporal Pulse Rate (60-100) 77 Pulse Location Monitor Respiratory Rate (12-18) 16 Respiratory rate source Observation Oxygen Delivery Method Room Air Blood Pressure (90/60-120/80) 169/66 H Blood Pressure Mean 100 Source Monitor Position Sitting Blood Pressure Location Right Forearm History Since Last Visit- (Skip if this is Patient's initial visit) Left Footwear Regular Shoe Right Footwear Regular Shoe Pain Scale: 0-10 Numeric Is Patient Pain Free? Yes - Nurse 1 - General Ulcer Measurement Start: 07/05/21 08:02 Freq: Status: Active Protocol: Activity Type Activity Date Activity User E-Sign Co-Sign Detail Recorded Client Recorded Date Recorded By Document 07/05/21 08:02 BMF [id number] 07/05/21 08:08 BMF Edit Result 07/05/21 08:02 BMF (1) [id number] 07/05/21 08:10 BMF (1) Left Calf (cm) => 48.7 Left Ankle (cm) => 26 07/05/21 08:02 Wound Center Nurse 1 #3- L HEEL -Combined with other wound No -Current Size (cm) - Length 0.1 -Current Size (cm) - Width 0.1 -Current Size (cm) - Depth 0.1 -Total Square Cm 0.01 -Date of Last Picture (Recall this 07/05/21 field) -Photo Taken Yes -Epithelialization None Present -Tunneling No -Undermining/Tunneling No -Circular Undermining No -Exudate Amt Small -Exudate Type Serosanguineous -Wound Margin Distinct, Outline Attached -Granulation Amt Small (1-33%) -Granulation Quality Red -Necrosis Amt Large (67-100%) -Necrotic Tissue Type Eschar -Texture (Cathie-wound Skin Appearance) Assessed,Callus ,Fluctuance, Scarring -Moisture (Cathie-wound Skin Appearance) Assessed,Dry/ Scaly -Color (Cathie-wound Skin Appearance) Assessed -Temperature (Cathie-wound Skin No Abnormality Appearance) (Pt Warm) -Tenderness on Palpation (Cathie-wound No Skin Appearance) -Ulcer Cleansing Soap and Water -Foul Odor after Cleansing No -Anesthetic Used 5% Lidocaine Gel Left Calf (cm) 48.7 Left Ankle (cm) 26 WC - Nurse 2 - General Ulcer CM Notes Start: 07/05/21 08:02 Freq: Status: Active Protocol: Activity Type Activity Date Activity User E-Sign Co-Sign Detail Recorded Client Recorded Date Recorded By Document 07/05/21 08:25 [id number] 07/05/21 08:28 HEATHER 07/05/21 08:25 Wound Center Nurse 2 #3- L HEEL -Time 08:26 -Correct Patient Yes -Correct Side, Site, Position Yes -Correct Procedure Yes -Procedure Performed Yes -Type of Procedure Debridement -Clinical Debridement Subcutaneous -Tissue Removed Subcutaneous -Post Debridement (cm) - Length 1.4 -Post Debridement (cm) - Width 1.0 -Post Debridement (cm) - Depth 0.2 -Total Square (Post) (cm) 1.40 -Area of Debridement (cm) - Length 1.4 -Area of Debridement (cm) - Width 1.0 -Total Square (Area) (cm) 1.40 -Tunneling No -Undermining/Tunneling No -Circular Undermining No -Wound/Ulcer Outcome Not Healed -Ulcer Cleansing Rinsed/ Irrigated with Saline -Foul Odor after Cleansing Yes, Due to Product Use -Bioengineered Tissue No -Bleeding Controlled with Pressure -Treatment Response Procedure Tolerated Well -Offloading No -Debridement - Subq, 1st 20sq cm Yes Pain Scale: 0-10 Numeric Is Patient Pain Free? Yes - Nurse 3 - General Ulcer D/C NN Start: 07/05/21 08:02 Freq: Status: Active Protocol: Activity Type Activity Date Activity User E-Sign Co-Sign Detail Recorded Client Recorded Date Recorded By Document 07/05/21 08:34 LOKESH [id number] 07/05/21 08:36 LOKSEH 07/05/21 08:34 Wound Care Nurse 3 #3- L HEEL -Ulcer Cleansing Rinsed/ Irrigated with Saline -Primary Dressing Applied Mepilex Border, Promogran Pretty Matter -Mepilex Border 1 -Promogran Pretty Matter 1 Left -Other TCC undercast applied Pain Scale: 0-10 Numeric Is Patient Pain Free? Yes WC - Visit Discharge Discharge Condition Stable Ambulatory Status Ambulatory Transportation Private Auto Accompanied by sister Assessment/Plan Assessment/Plan (1) Non-pressure chronic ulcer of other part of left foot with fat layer exposed: CODE(S): L97.522 - Non-pressure chronic ulcer of other part of left foot with fat layer exposed PLAN: Patient examined evaluated, all findings cussed with patient in detail. Patient has a chronic left ulceration which was previously infected. Patient had a recent hospital admission at which time we ordered vascular studies and radiographs which were negative for any significant disease. The wound is very stable and has been improving significantly over the past several weeks. Wound today was excisionally debrided down to and including level of subcutaneo us tissue using combination of a #15 blade and 5 mm dermal curette of all nonviable tissue. Anesthesia none due to neuropathy. Hemostasis light compression. Decision today was made for application of Pretty Ag with a dry sterile dressing and a total contact cast to completely offload the left heel ulceration in order to allow for resolution. Upon wound healing patient will likely be fitted for diabetic shoes in our office. Patient will follow up weekly for total contact cast applications. We will consider any advanced wound care products to assist healing in the future if there is or any delays. (2) Type 2 diabetes mellitus with diabetic polyneuropathy: CODE(S): E11.42 - Type 2 diabetes mellitus with diabetic polyneuropathy QUALIFIERS: Diabetes mellitus intermodal customer service insulin use: unspecified intermodal customer service insulin use status Qualified Code(s): E11.42 - Type 2 diabetes [place] with diabetic polyneuropathy
== END 2021-07-07 23:59 | disposition home or self-care (01) ==
LOC: WC 07:31
PROVIDERS: PCP Family Medicine; Visit Provider Podiatrist
DX: E11.621 Type 2 diabetes mellitus with foot ulcer (principal); L97.522 Non-pressure chronic ulcer of other part of left foot with fat layer exposed; I11.0 Hypertensive heart disease with heart failure; I50.32 Chronic diastolic (congestive) heart failure; E11.59 Type 2 diabetes mellitus with other circulatory complications; E11.40 Type 2 diabetes mellitus with diabetic neuropathy, unspecified; I25.10 Atherosclerotic heart disease of native coronary artery without angina pectoris; E78.5 Hyperlipidemia, unspecified; I87.2 Venous insufficiency (chronic) (peripheral); Z79.82 Long term (current) use of aspirin; I25.5 Ischemic cardiomyopathy; I25.2 Old myocardial infarction; Z86.16 Personal history of COVID-19
CPT/HCPCS: 11042; 29445; 99213; G0463

== ENCOUNTER 2021-07-21 08:30 | Outpatient (RCR) | payer OTHER, SELFPAY ==
[2018-12-25 08:56] VITALS: BMI 37.9
[2021-07-08 00:49] VITALS: BP 169/66; PULSE 77; RESP 16; TEMP 35.8; BMI 39.0
[2021-07-12 08:04] VITALS: BP 155/81; PULSE 68; RESP 16; TEMP 35.4; BMI 39.0
--- NOTE | 2021-07-12 08:43 | PCM.WC.PN ---
History of Present Illness Date of Service: 07/12/21 Chief Complaint: Right foot wound History of Wound: Patient is a follow-up for widespread ulcer of left heel and hindfoot. Patient has significant medical history including diabetes, congestive heart failure, hypertension, obesity, venous insufficiency, history of NSTEMI and COVID-19. Constitutional symptoms. Patient has been dressing the site with silver alginate dry sterile dressing daily at home.He has been attempting to offload the site with a surgical shoe. Patient has no other complaints. Objective Data Objective Data Vital Signs: Vital Signs Temp Pulse Resp BP 95.8 F L 68 16 155/81 H 07/12/21 08:04 07/12/21 08:04 07/12/21 08:04 07/12/21 08:04 Oxygen Delivery Method Room Air Weight: 127.006 kg Body Mass Index (BMI) 39.0 Physical Exam Narrative Patient alert oriented to person place and time. Patient ambulates unassisted normal shoe on the right lower extremity in a surgical shoe on the left. Vascular: Dorsalis pedis posterior tibial pulses palpable 2 out of 4 to bilateral lower extremity. Capillary fill time brisk to lesser digits. Digital hair growth present. +1 pitting edema noted bilateral lower extremity. Neurologic: Light touch protective sensation diminished bilateral feet. Dermatologic: Full-thickness ulceration noted to the plantar left heel mild periwound hyperkeratosis no deep probing or undermining at this time. Wound extends down to the level of subcutaneous tissue, significantly reduced in size today. No signs of acute infection such as erythema edema pain fluctuance or crepitus purulent drainage. There is noted to be mild serosanguineous drainage. Musculoskeletal: No gross musculoskeletal deformity leading to wound formation. No pain with calf squeeze. Muscular strength 5 out of 5 to bilateral lower extremity compartments. Debridement Note Debridement Note Post-Debridement Measurements and Additional Note: Post-Debridement Measurements/Treatment LUC - Nurse 1 - General Ulcer Assessment Start: 07/12/21 08:04 Freq: Status: Active Protocol: RADHA Activity Type Activity Date Activity User E-Sign Co-Sign Detail Recorded Client Recorded Date Recorded By Document 07/12/21 08:04 OLE [id number] 07/12/21 08:16 MW 07/12/21 08:04 - Today's Visit Information Type of service Follow-up Visit (Physician/UNDERWRITING SUPPORT SPECIALIST ) Arrival Mode Ambulatory Transfer Assistance None Accompanied by sister Patient Identification Verified (Name & Yes ) Patient Requires Transmission-Based No Precautions Safety Precautions NA Finger Stick Blood Sugar(mg/dl) (if 88 indicated): Blood Sugar Stated by Patient Height and Weight Body Mass Index (BMI) 39.0 BMI Classification Obese Vital Signs Temperature (97.8 F-99.1 F) 95.8 F L Temperature Source Temporal Pulse Rate (60-100) 68 Pulse Location Monitor Respiratory Rate (12-18) 16 Respiratory rate source Observation Oxygen Delivery Method Room Air Blood Pressure (90/60-120/80) 155/81 H Blood Pressure Mean (mm Hg) 105 Source Monitor Position Sitting Blood Pressure Location Left Arm History Since Last Visit- (Skip if this is Patient's initial visit) Have you changed medications since your No last visit? Any new allergies or adverse reactions No Had a fall/change in ADL's that may No increase risk of falls Signs or symptoms of abuse and/or No neglect since last visit Have you been in the hospital since your No last visit? Has dressing in place as prescribed Yes Has compression in place as prescribed Yes Has offloadiing in place as prescribed N/A Experienced any changes in pain level or No management Left Footwear Total Contact Cast Right Footwear Regular Shoe Pain Scale: 0-10 Numeric Is Patient Pain Free? Yes WC - Nurse 1 - General Ulcer Measurement Start: 07/12/21 08:04 Freq: Status: Active Protocol: Activity Type Activity Date Activity User E-Sign Co-Sign Detail Recorded Client Recorded Date Recorded By Document 07/12/21 08:04 MW [id number] 07/12/21 08:16 MW 07/12/21 08:04 Wound Center Nurse 1 #3- L HEEL -Current Size (cm) - Length 2 -Current Size (cm) - Width 2 -Current Size (cm) - Depth 0.1 -Total Square Cm 4 -Exudate Amt Small -Exudate Type Serosanguineous -Wound Margin Distinct, Outline Attached -Granulation Amt Small (1-33%) -Granulation Quality [place] -Necrosis Amt Large (67-100%) -Necrotic Tissue Type Adherent Slough -Texture (Cathie-wound Skin Appearance) Assessed, Scarring -Moisture (Cathie-wound Skin Appearance) No Abnormality, Assessed -Color (Cathie-wound Skin Appearance) No Abnormality, Assessed -Temperature (Cathie-wound Skin No Abnormality Appearance) (Pt Warm) -Tenderness on Palpation (Cathie-wound No Skin Appearance) -Ulcer Cleansing Soap and Water -Foul Odor after Cleansing No -Anesthetic Used 5% Lidocaine Gel Left Calf (cm) 42.5 Left Ankle (cm) 27.5 WC - Nurse 2 - General Ulcer CM Notes Start: 07/12/21 08:04 Freq: Status: Active Protocol: Activity Type Activity Date Activity User E-Sign Co-Sign Detail Recorded Client Recorded Date Recorded By Document 07/12/21 08:35 [id number] 07/12/21 08:43 HEATHER 07/12/21 08:35 Wound Center Nurse 2 #3- L HEEL -Time 08:36 -Correct Patient Yes -Correct Side, Site, Position Yes -Correct Procedure Yes -Procedure Performed Yes -Type of Procedure Debridement -Clinical Debridement Subcutaneous -Tissue Removed Subcutaneous -Post Debridement (cm) - Length 1.0 -Post Debridement (cm) - Width 1.5 -Post Debridement (cm) - Depth 0.1 -Total Square (Post) (cm) 1.50 -Area of Debridement (cm) - Length 1.0 -Area of Debridement (cm) - Width 1.5 -Total Square (Area) (cm) 1.50 -Tunneling No -Undermining/Tunneling No -Circular Undermining No -Wound/Ulcer Outcome Not Healed -Ulcer Cleansing Rinsed/ Irrigated with Saline -Foul Odor after Cleansing No -Bioengineered Tissue No -Bleeding Controlled with Pressure -Treatment Response Procedure Tolerated Well -Offloading Yes -Type of Offloading Total Contact Cast (TCC) - Left ($) -Debridement - Subq, 1st 20sq cm Yes Pain Scale: 0-10 Numeric Is Patient Pain Free? Yes Assessment/Plan Assessment/Plan (1) Non-pressure chronic ulcer of other part of left foot with fat layer exposed: CODE(S): L97.522 - Non-pressure chronic ulcer of other part of left foot with fat layer exposed PLAN: Patient examined evaluated, all findings cussed with patient in detail. Patient has a chronic left ulceration which was previously infected. Patient had a recent hospital admission at which time we ordered vascular studies and radiographs which were negative for any significant disease. The wound is significantly improved today. Wound today was excisionally debrided down to and including level of subcutaneous tissue using combination of a #15 blade and 5 mm dermal curette of all nonviable tissue. Anesthesia none due to neuropathy. Hemostasis light compression. Decision today was made for application of Pretty Ag with a dry sterile dressing and a total contact cast to completely offload the left heel ulceration in order to allow for resolution. Upon wound healing patient will likely be fitted for diabetic shoes in our office. Patient will follow up weekly for total contact cast applications. We will consider any advanced wound care products to assist healing in the future if there is or any delays. Wound likely will be healed by next week. (2) Type 2 diabetes mellitus with diabetic polyneuropathy: CODE(S): E11.42 - Type 2 diabetes mellitus with diabetic polyneuropathy QUALIFIERS: Diabetes mellitus terminal computer operator insulin use: unspecified terminal computer operator insulin use status Qualified Code(s): E11.42 - Type 2 diabetes mellitus with diabetic polyneuropathy
[2021-07-19 08:17] VITALS: BP 193/9; PULSE 80; RESP 18; TEMP 35.7; BMI 39.0
[2021-07-21 08:29] VITALS: BP 169/95; RESP 18; TEMP 36.2; BMI 39.0
--- NOTE | 2021-07-21 09:10 | PCM.WC.PN ---
History of Present Illness Date of Service: 07/21/21 Chief Complaint: Right foot wound History of Wound: This 51-year-old male was seen for follow-up on a left foot ulceration to the heel patient had a total contact cast applied which was removed on Sunday. There is noted to be a new onset wound to his left dorsal midfoot secondary from friction from the cast. Patient denies any constitutional's. He has been dressing the site daily with Edmond. He denies any offloading of the lesion at this time and has no other complaints. Objective Data Objective Data Vital Signs: Vital Signs Temp Pulse Resp BP 97.2 F L 80 18 169/95 H 07/21/21 08:29 07/19/21 08:17 07/21/21 08:29 07/21/21 08:29 Oxygen Delivery Method Room Air Weight: 127.006 kg Body Mass Index (BMI) 39.0 Physical Exam Narrative Patient alert oriented to person place and time. Patient had offloading lesion at this time. Vascular: Dorsalis pedis posterior tibial pulses palpable 2 out of 4 to bilateral lower extremity. Capillary fill time brisk to lesser digits. Digital hair growth present. +1 pitting edema noted bilateral lower extremity. Neurologic: Light touch protective sensation diminished bilateral feet. Dermatologic: Full-thickness ulceration noted to the plantar left heel mild periwound hyperkeratosis no deep probing or undermining at this time, wound size significantly decreasing, pre and post debridement measurements document nursing notes. Wound extends down to the level of subcutaneous tissue, significantly reduced in size today. No signs of acute infection such as erythema edema pain fluctuance or crepitus purulent drainage. There is noted to be mild serosanguineous drainage. Focal ulceration to dorsal lateral midfoot no signs of infection 100% granular base post debridement. Pre and post debridement measurements document nursing note, no signs of infection or deep probing at this time. Musculoskeletal: No gross musculoskeletal deformity leading to wound formation. No pain with calf squeeze. Muscular strength 5 out of 5 to bilateral lower extremity compartments. Debridement Note Debridement Note Post-Debridement Measurements and Additional Note: Post-Debridement Measurements/Treatment LUC - Nurse 1 - General Ulcer Assessment Start: 07/12/21 08:04 Freq: Status: Active Protocol: LOWEXT Activity Type Activity Date Activity User E-Sign Co-Sign Detail Recorded Client Recorded Date Recorded By Document 07/12/21 08:04 MW [id number] 07/12/21 08:16 MW Document 07/19/21 08:17 MW [id number] 07/19/21 08:21 MW Document 07/21/21 08:29 KR [id number] 07/21/21 08:36 KR 07/12/21 07/19/21 07/21/21 08:04 08:17 08:29 WC - Today's Visit Information Type of service Follow-up Visit Nurse-only Follow-up Visit (Physician/ADVANCED MANAGER Visit (Physician/ADVANCED MANAGER ) ) Arrival Mode Ambulatory Ambulatory Ambulatory Transfer Assistance None None None Accompanied by sister self Patient Identification Verified (Name & Yes Yes Yes ) Patient Requires Transmission-Based No No No Precautions Safety Precautions NA NA Finger Stick Blood Sugar(mg/dl) (if 88 88 89 indicated): Blood Sugar Stated by Stated by Stated by Patient Patient Patient Height and Weight Body Mass Index (BMI) 39.0 39.0 39.0 BMI Classification Obese Obese Obese Vital Signs Temperature (97.8 F-99.1 F) 95.8 F L 96.3 F L 97.2 F L Temperature Source Temporal Temporal Temporal Pulse Rate (60-100) 68 80 Pulse Location Monitor Monitor Monitor Respiratory Rate (12-18) 16 18 18 Respiratory rate source Observation Observation Observation Oxygen Delivery Method Room Air Room Air Blood Pressure (90/60-120/80) 155/81 H 193/9 H 169/95 H Blood Pressure Mean (mm Hg) 105 70 119 Source Monitor Monitor Monitor Position Sitting Sitting Semi-Fowlers Blood Pressure Location Left Arm Left Arm Left Arm History Since Last Visit- (Skip if this is Patient's initial visit) Have you changed medications since your No No No last visit? Any new allergies or adverse reactions No No No Had a fall/change in ADL's that may No No No increase risk of falls Signs or symptoms of abuse and/or No No No neglect since last visit Have you been in the hospital since your No No No last visit? Has dressing in place as prescribed Yes Yes Yes Has compression in place as prescribed Yes Yes Yes Has offloadiing in place as prescribed N/A N/A N/A Experienced any changes in pain level or No No No management Left Footwear Total Contact Total Contact Regular Shoe Cast Cast Right Footwear Regular Shoe Regular Shoe Regular Shoe Pain Scale: 0-10 Numeric Is Patient Pain Free? Yes Yes Yes WC - Nurse 1 - General Ulcer Measurement Start: 07/12/21 08:04 Freq: Status: Active Protocol: Activity Type Activity Date Activity User E-Sign Co-Sign Detail Recorded Client Recorded Date Recorded By Document 07/12/21 08:04 MW [id number] 07/12/21 08:16 MW Document 07/19/21 08:17 MW [id number] 07/19/21 08:21 MW Document 07/21/21 08:29 KR [id number] 07/21/21 08:36 KR 07/12/21 07/19/21 07/21/21 08:04 08:17 08:29 Wound Center Nurse 1 4 left dorsal foot cluster -Combined with other wound No -Current Size (cm) - Length 0.7 0.4 -Current Size (cm) - Width 1.4 1 -Current Size (cm) - Depth 0.2 0.1 -Total Square Cm 0.98 0.4 -Photo Taken Yes No -Epithelialization None Present -Tunneling No -Undermining/Tunneling No -Circular Undermining No -Exudate Amt Small Small -Exudate Type Serosanguineous Serosanguineous -Wound Margin Distinct, Distinct, Outline Outline Attached Attached -Granulation Amt None Present (0 Large (67-100%) %) -Granulation Quality N/A Pale -Slough/Fibrin Yes -Necrosis Amt Large (67-100%) Small (1-33%) -Necrotic Tissue Type Adherent Slough Adherent Slough -Structure Exposed N/A N/A -Texture (Cathie-wound Skin Appearance) No Abnormality, Scarring Assessed -Moisture (Cathie-wound Skin Appearance) No Abnormality, Dry/Scaly Assessed -Color (Cathie-wound Skin Appearance) Assessed, Hemosiderin Erythema Staining -Temperature (Cathie-wound Skin No Abnormality No Abnormality Appearance) (Pt Warm) (Pt Warm) -Tenderness on Palpation (Cathie-wound No No Skin Appearance) -Ulcer Cleansing Soap and Water Soap and Water -Foul Odor after Cleansing No No -Anesthetic Used 5% Lidocaine Gel #3- L HEEL -Combined with other wound No -Current Size (cm) - Length 2 0.1 1.1 -Current Size (cm) - Width 2 0.1 1.9 -Current Size (cm) - Depth 0.1 0.1 0.2 -Total Square Cm 4 0.01 2.09 -Photo Taken No No -Epithelialization None Present -Tunneling No -Undermining/Tunneling No -Circular Undermining No -Exudate Amt Small Small Medium -Exudate Type Serosanguineous Serosanguineous Serosanguineous -Wound Margin Distinct, Flat & Intact Thickened Outline Attached -Granulation Amt Small (1-33%) None Present (0 Small (1-33%) %) -Granulation Quality [place] N/A Pale -Slough/Fibrin Yes -Necrosis Amt Large (67-100%) Large (67-100%) Medium (34-66%) -Necrotic Tissue Type Adherent Slough Adherent Slough Adherent Slough -Structure Exposed N/A N/A -Texture (Cathie-wound Skin Appearance) Assessed, Assessed,Callus Scarring Scarring -Moisture (Cathie-wound Skin Appearance) No Abnormality, Assessed,Dry/ Dry/Scaly Assessed Scaly -Color (Cathie-wound Skin Appearance) No Abnormality, No Abnormality, No Abnormality Assessed Assessed -Temperature (Cathie-wound Skin No Abnormality No Abnormality No Abnormality Appearance) (Pt Warm) (Pt Warm) (Pt Warm) -Tenderness on Palpation (Cathie-wound No No No Skin Appearance) -Ulcer Cleansing Soap and Water Soap and Water Soap and Water -Foul Odor after Cleansing No No No -Anesthetic Used 5% Lidocaine 5% Lidocaine Gel Gel Lower Limb Edema Present Yes Left Calf (cm) 42.5 41.2 Left Ankle (cm) 27.5 27.0 WC - Nurse 2 - General Ulcer CM Notes Start: 07/12/21 08:04 Freq: Status: Active Protocol: Activity Type Activity Date Activity User E-Sign Co-Sign Detail Recorded Client Recorded Date Recorded By Document 07/12/21 08:35 HEATHER [id number] 07/12/21 08:43 HEATHER Document 07/21/21 09:02 MW [id number] 07/21/21 09:10 MW 07/12/21 07/21/21 08:35 09:02 Wound Center Nurse 2 4 left dorsal foot cluster -Time 09:03 -Correct Patient Yes -Correct Side, Site, Position Yes -Correct Procedure Yes -Procedure Performed Yes -Type of Procedure Debridement -Clinical Debridement Subcutaneous -Tissue Removed Subcutaneous -Post Debridement (cm) - Length 0.5 -Post Debridement (cm) - Width 0.5 -Post Debridement (cm) - Depth 0.1 -Total Square (Post) (cm) 0.25 -Area of Debridement (cm) - Length 0.5 -Area of Debridement (cm) - Width 0.5 -Total Square (Area) (cm) 0.25 -Tunneling No -Undermining/Tunneling No -Circular Undermining No -Wound/Ulcer Outcome Not Healed -Ulcer Cleansing Rinsed/ Irrigated with Saline -Foul Odor after Cleansing No -Bioengineered Tissue No -Bleeding Controlled with Pressure -Treatment Response Procedure Tolerated Well -Offloading Yes -Type of Offloading Camwalker -Debridement - Subq, 1st 20sq cm Yes #3- L HEEL -Time 08:36 09:05 -Correct Patient Yes Yes -Correct Side, Site, Position Yes Yes -Correct Procedure Yes Yes -Procedure Performed Yes Yes -Type of Procedure Debridement Debridement -Clinical Debridement Subcutaneous Subcutaneous -Tissue Removed Subcutaneous Subcutaneous -Post Debridement (cm) - Length 1.0 0.5 -Post Debridement (cm) - Width 1.5 0.5 -Post Debridement (cm) - Depth 0.1 0.1 -Total Square (Post) (cm) 1.50 0.25 -Area of Debridement (cm) - Length 1.0 0.5 -Area of Debridement (cm) - Width 1.5 0.5 -Total Square (Area) (cm) 1.50 0.25 -Tunneling No No -Undermining/Tunneling No No -Circular Undermining No No -Wound/Ulcer Outcome Not Healed Not Healed -Ulcer Cleansing Rinsed/ Rinsed/ Irrigated with Irrigated with Saline Saline -Foul Odor after Cleansing No No -Bioengineered Tissue No No -Bleeding Controlled with Pressure Pressure -Treatment Response Procedure Procedure Tolerated Well Tolerated Well -Offloading Yes Yes -Type of Offloading Total Contact Camwalker Cast (TCC) - Left ($) -Debridement - Subq, 1st 20sq cm Yes No Pain Scale: 0-10 Numeric Is Patient Pain Free? Yes Yes WC - Nurse 3 - General Ulcer D/C NN Start: 07/12/21 08:04 Freq: Status: Active Protocol: Activity Type Activity Date Activity User E-Sign Co-Sign Detail Recorded Client Recorded Date Recorded By Document 07/12/21 08:45 [facility] [id number] 07/12/21 08:46 [facility] Document 07/19/21 08:21 MW [id number] 07/19/21 08:24 MW 07/12/21 07/19/21 08:45 08:21 Wound Care Nurse 3 4 left dorsal foot cluster -Ulcer Cleansing Soap and Water -Foul Odor after Cleansing No -Negative Pressure Wound Therapy N/A -Primary Dressing Applied Promogran Edmond Matter -Primary Dressing Covered/Secured with Dry Gauze, Secured with Tape -Promogran Edmond Matter 1 #3- L HEEL -Ulcer Cleansing Rinsed/ Soap and Water Irrigated with Saline -Foul Odor after Cleansing No No -Negative Pressure Wound Therapy N/A -Primary Dressing Applied Promogran Edmond Matter -Other Dressing tc undercast per mw rn -Primary Dressing Covered/Secured with Dry Gauze, Secured with Tape -Other Covering xtrasorb -Promogran Edmond Matter 1 Treatment Response Procedure Procedure Tolerated Well Tolerated Well Pain Scale: 0-10 Numeric Is Patient Pain Free? Yes Yes Teaching: Wound Center Dressing Your Wound -Person Taught Patient -Teaching Method Discussion -Response to teaching Return demonstration WC - Visit Discharge Discharge Condition Stable Stable Ambulatory Status Ambulatory Ambulatory Transportation Private Auto Private Auto Accompanied by sister self Medication Reconcilliation completed & No provided to patient/care provider Clinical Summary of Care Provided Yes Notes: Patient going home to shower. Instructed to apply edmond to ulcers and cover with gauze. Leonides wrap to left lower leg for compression. Facility Type Home Health Assessment/Plan Assessment/Plan (1) Non-pressure chronic ulcer of other part of left foot with fat layer exposed: CODE(S): L97.522 - Non-pressure chronic ulcer of other part of left foot with fat layer exposed PLAN: Patient examined evaluated, all findings cussed with patient in detail. Patient has a chronic left ulceration which was previously infected. Patient had a recent hospital admission at which time we ordered vascular studies and radiographs which were negative for any significant disease. Patient's wounds are significantly improving at this time, patient's blood sugar control has significantly improved and averages from 80-1 20 on a daily basis per report from the patient. Patient notes that he is eating significantly less carbs and focusing on eating more vegetables. Wound today was excisionally debrided down to and including level of subcutaneous tissue using combination of a #15 blade and 5 mm dermal curette of all nonviable tissue. Anesthesia none due to neuropathy. Hemostasis light compression. Patient will dressed the left heel with antibiotic ointment and a bordered foam dressing on a daily basis and will continue Edmond to the dorsal lateral foot with DSD. A prescription for diabetic shoes was given the patient. Patient defers total contact casting at this time he will offload the lesion with his cam walking boot at home. Follow-up in 2 weeks in the wound care center. (2) Type 2 diabetes mellitus with diabetic polyneuropathy: CODE(S): E11.42 - Type 2 diabetes mellitus with diabetic polyneuropathy QUALIFIERS: Diabetes mellitus assisted insulin use: unspecified assisted insulin use status Qualified Code(s): E11.42 - Type 2 diabetes mellitus with diabetic polyneuropathy
== END 2021-08-06 23:59 | disposition home or self-care (01) ==
LOC: WC 08:30
PROVIDERS: PCP Family Medicine; Visit Provider Podiatrist
DX: E11.621 Type 2 diabetes mellitus with foot ulcer (principal); L97.409 Non-pressure chronic ulcer of unspecified heel and midfoot with unspecified severity; L97.522 Non-pressure chronic ulcer of other part of left foot with fat layer exposed; I11.0 Hypertensive heart disease with heart failure; I50.9 Heart failure, unspecified; E11.59 Type 2 diabetes mellitus with other circulatory complications; E11.42 Type 2 diabetes mellitus with diabetic polyneuropathy; I87.2 Venous insufficiency (chronic) (peripheral)
CPT/HCPCS: 11042; 29445; 99213; G0463

== ENCOUNTER → 2022-01-10 | Outpatient (CLI) | payer OTHER, SELFPAY ==
[2018-12-25 08:56] VITALS: BMI 37.9
[2022-01-10 08:55] LABS: AST(SGOT) 25 U/L (15-37); Alanine Aminotransfer ALT/SGPT 25 U/L (16-61); Albumin, Serum 3.5 g/dL (3.2-5.0); Alkaline Phosphatase 91 U/L (45-117); Bilirubin, Direct < 0.05 mg/dL (0.00-0.30); Cholesterol 131 mg/dL (200); Globulin 4.6 g/dL (2.2-4.2); High Density Lipoprotein 42 mg/dL; Protein, Total 8.1 g/dL (6.4-8.2); Triglycerides 123 mg/dL; Very Low Density Lipoprotein 25 mg/dL (5-40)
== END | disposition home or self-care (01) ==
LOC: LAB 07:40
PROVIDERS: PCP Family Medicine; Visit Provider Nurse Practitioner Gerontology
DX: E78.5 Hyperlipidemia, unspecified (principal)
CPT/HCPCS: 36415; 80061; 80076

== ENCOUNTER 2022-04-07 01:41 | Inpatient (IN) | payer OTHER, SELFPAY ==
[2018-12-25 08:56] VITALS: BMI 37.9
[2022-04-07] VITALS (24 sets, daily range): BP systolic 115–185; BP diastolic 69–94; PULSE 68–104; RESP 16–28; TEMP 36.3–36.9; O2SAT 87–100; BMI 42.5; BMI 41.5
--- NOTE | 2022-04-07 01:50 | RAD_ITS ---
STUDY: X-RAY CHEST REASON FOR EXAM: Male, 51 years old. Cough, Shortness of Breath TECHNIQUE: Single AP portable view of the chest. COMPARISON: None. FINDINGS: The lungs are clear and expanded. There is no demonstrated pleural abnormality. Normal size heart. Normal mediastinum and paula. Normal visualized pulmonary arteries. Normal visualized aortic arch and descending thoracic aorta. Normal visualized thoracic spine. Normal visualized ribs, clavicles, and shoulders. There is no demonstrated abnormality of the visualized soft tissue structures of the upper abdomen. RAD/Chest 1 View (Portable) IMPRESSION: Normal x-ray examination of the chest. Electronically Signed: Courtney Vzaquez MD at 2:48 EST ,
--- NOTE | 2022-04-07 01:50 | EKG12_ITS ---
Test Reason : SYNCOPE Blood Pressure : / mmHG Vent. Rate : 097 BPM Atrial Rate : 097 BPM P-R Int : 164 ms QRS Dur : 120 ms QT Int : 352 ms P-R-T Axes : 050 027 155 degrees QTc Int : 447 ms Normal sinus rhythm Inferior infarct , age undetermined Marked ST abnormality, possible lateral subendocardial injury Poor R wave progression Abnormal ECG Confirmed by JULIA NUNEZ, JAZMINE ([id number]), content editor ISRAEL MALIK ([id number]) on 04/11/2022 1:06:21 PM Referred By: RICARDA Confirmed By:JAZMINE DUMONT MD
--- NOTE | 2022-04-07 01:57 | EDS_ITS ---
HPI History of Present Illness Chief Complaint: Syncope Narrative Narrative: [id number] male past medical history of hypertension, diabetes, coronary artery disease, chronic kidney disease presents with generalized weakness and near syncope. He stated that he had a syncopal episode, he denies this. He states that he has had a cough over the last few days it has been getting worse. Today, he felt lightheaded and near syncopal. At around 5 PM, 9 hours ago, he states he dropped to the floor but did not pass out. He did not fall he just felt weak so he laid himself on the floor for approximately 45 minutes. Sometimes is worse with standing. He lives at home alone with his dog. He states he called his son because he did not feel well but he lives in [place]. He called the squad because of the near syncope, lightheadedness, and generalized weakness. He denies any dysuria or hematuria. No fevers or chills. No other symptoms. [facility] Medical History Atherosclerotic heart disease of [place] coronary artery without angina pectoris Chronic diastolic (congestive) heart failure Chronic kidney disease Depression Diabetes mellitus with diabetic polyneuropathy Diabetes mellitus, type II Diabetic infection of left foot Essential (primary) hypertension History of non-ST elevation myocardial infarction (NSTEMI) (03/15/20) History of stress test Hyperlipidemia Hypertension Infected sebaceous cyst Ischemic cardiomyopathy (06/2013) Non-pressure 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 of bone Non-pressure chronic ulcer of other part of left foot with fat layer exposed Obesity Paresthesias Partial nontraumatic amputation of right foot Pneumonia due to COVID-19 virus (03/14/20) Type 2 diabetes mellitus with diabetic neuropathy, unspecified Type 2 diabetes mellitus with foot ulcer Venous insufficiency Home Medications aspirin 81 mg chewable tablet 81 mg PO DAILY@0800 heart 09/28/14 [History Last Taken 12/20/18] amlodipine 5 mg tablet 5 mg PO DAILY Blood Pressure 30 days #30 tabs 06/21/21 [Rx Last Taken Unknown] atorvastatin 80 mg tablet 80 mg PO QHS cholesterol 30 days #30 tabs 06/21/21 [Rx Last Taken Unknown] citalopram 10 mg tablet 10 mg PO DAILY 30 days #30 tabs 06/21/21 [Rx Last Taken Unknown] clopidogrel 75 mg tablet 75 mg PO DAILY Blood Thinner 30 days #30 tabs 06/21/21 [Rx Last Taken Unknown] famotidine 20 mg tablet 20 mg PO DAILY GERD 30 days #30 tabs 06/21/21 [Rx Last Taken Unknown] furosemide 40 mg tablet 40 mg PO DAILY 7 days #7 tabs 06/21/21 [Rx Last Taken Unknown] hydralazine 25 mg tablet 25 mg PO BID 30 days #60 tabs 06/21/21 [Rx Last Taken Unknown] hydralazine 50 mg tablet 50 mg PO BID 30 days #60 tabs 06/21/21 [Rx Last Taken Unknown] insulin glargine 100 unit/mL (3 mL) subcutaneous pen (Lantus Solostar U-100 Insulin) 20 unit (0.2 mL) subcut BID Diabetes 30 days #12 mL 06/21/21 [Rx Last Taken Unknown] potassium chloride 20 mEq tablet,extended release(part/cryst) (Klor-Con M) 20 meq PO DAILYCM 7 days #7 tabs 06/21/21 [Rx Last Taken Unknown] losartan 25 mg tablet 25 mg PO DAILY 01/09/22 [History Last Taken Unknown] metoprolol succinate 100 mg tablet,extended release 24 hr 100 mg PO DAILY 01/09/22 [History Last Taken Unknown] isosorbide mononitrate 60 mg tablet,extended release 24 hr 60 mg PO DAILY Heart 30 days #30 tabs 01/12/22 [Rx Last Taken Unknown] Allergy/AdvReac Type Severity Reaction Status Date / Time lisinopril AdvReac Intermediate Cough Verified 04/07/22 01:49 losartan AdvReac Intermediate cough Verified 04/07/22 01:49 Family History Father , Age 57 from [place] Myocardial infarction CAD (coronary artery disease) Sudden cardiac Mother Sick sinus syndrome Sister Diabetes Surgical History H/O cardiac catheterization History of coronary artery stent placement (01/02/19) Social History household members: none Smoking Status: Never smoker alcohol intake: current alcohol intake frequency: holidays/special occasions only substance use type: does not use caffeine: Yes Type: carbonated beverages Number of servings: 2 ROS ROS ED ROS Narrative Constitutional: No fever, no chills. Generalized weakness. HEENT: No sore throat. No neck pain. No loss of vision. No rhinorrhea. Cardiovascular: No chest pain. No palpitations. No pedal edema. Respiratory: Positive cough, worsening over the last few days. No shortness of breath. Abdominal: No abdominal pain. No nausea. No vomiting. Genitourinary: No dysuria. No hematuria. Musculoskeletal: No myalgias. No arthralgias. Neurologic: No headaches. No dizziness. Positive near syncope and lightheadedness. Skin: No rash. No change in color. Psychiatric: No depression. No anxiety. EXAM Physical Exam Narrative Exam Narrative: Afebrile. Vital signs noted. HEENT: Normocephalic. Atraumatic. PERRL, EOMI. Neck soft and supple. No point tenderness or step off. Cardiovascular: Regular rate and rhythm. No murmurs, rubs, or gallops appreciated. Respiratory: No tachypnea. Lungs clear to auscultation bilaterally anteriorly. Gastrointestinal: Abdomen soft, nontender, with normoactive bowel sounds. No rebound or guarding. Neurological: Awake. Alert. Nonfocal, nonlateralizing. Skin: No rash. Normal color. No pallor. Musculoskeletal: No pedal edema. Full range of motion extremities. Const Vital Signs: 04/07/22 01:42 04/07/22 01:48 04/07/22 02:03 Temperature 97.5 F L Temperature Source Temporal Pulse Rate 98 Pulse Rate [Lying] 97 Pulse Rate [Sitting (for 1 minute prior to obtaining)] 96 Pulse Rate [Standing (for 1 minute prior to obtaining)] 104 H Respiratory Rate 20 H Respiratory Effort Normal Blood Pressure 174/83 H Blood Pressure [Lying] 175/89 H Blood Pressure [Sitting (for 1 minute prior to obtaining)] 171/91 H Blood Pressure [Standing (for 1 minute prior to obtaining)] 181/90 H Blood Pressure Mean 113 Blood Pressure Mean [Lying] 117 Blood Pressure Mean [Sitting (for 1 minute prior to obtaining)] 117 Blood Pressure Mean [Standing (for 1 minute prior to obtaining)] 120 Pulse Ox 92 Oxygen Delivery Method Room Air Oxygen Flow Rate (L/min) 04/07/22 02:14 04/07/22 02:15 04/07/22 03:20 Temperature Temperature Source Pulse Rate 99 Pulse Rate [Lying] Pulse Rate [Sitting (for 1 minute prior to obtaining)] Pulse Rate [Standing (for 1 minute prior to obtaining)] Respiratory Rate 23 H Respiratory Effort Blood Pressure 185/90 H Blood Pressure [Lying] Blood Pressure [Sitting (for 1 minute prior to obtaining)] Blood Pressure [Standing (for 1 minute prior to obtaining)] Blood Pressure Mean 121 Blood Pressure Mean [Lying] Blood Pressure Mean [Sitting (for 1 minute prior to obtaining)] Blood Pressure Mean [Standing (for 1 minute prior to obtaining)] Pulse Ox 87 95 96 Oxygen Delivery Method Room Air Nasal Cannula Nasal Cannula Oxygen Flow Rate (L/min) 4 3 MDM MDM MDM Narrative Medical decision making narrative: Comprehensive work-up was pursued. EKG was obtained and interpreted by myself which demonstrates normal sinus rhythm at 97 bpm without ectopy or acute ST changes. No STEMI. He does have mild ST depression in leads V5, V6, and laterally. CBC shows normal white count of 5.7, hemoglobin stable at 9.0, hematocrit 29.4. Platelet count normal at 214. Upon initial return, his BNP is elevated at 2759. Patient denies that he has past medical history of CHF but states that he has coronary artery disease and sick stents. He had a heart attack at age 43. He was administered Lasix 40 mg intravenously x1. His chest x-ray interpreted by myself does not show a discrete infiltrate or consolidation, no pneumothorax. Radiology confirmed that there is no acute process. Of note, he states he does not wear oxygen at home, but his pulse ox was 87% on room air. He was placed on 4 L nasal cannula oxygen with resultant SPO2 of 95%. While his other laboratory studies are currently pending, given his hypoxia I do feel that he will require admission. His CMP is returned. He has a BUN of 76, and creatinine has increased to 4.28. It has been as high as 3.1 or so previously, but I do feel that this may be an acute on chronic kidney injury. Glucose is elevated 248 but he has a normal anion gap of 9. AST is slightly elevated at 100 with a normal ALT of 31. High- sensitivity troponin is elevated at 28,562. Patient administered aspirin 324 mg orally. This does seem higher than allowed for chronic kidney disease. Patient is not on dialysis currently. He states he does not see a lip reading teacher regarding his chronic kidney disease. I discussed patient with Dr. Peewee Bey with cardiology. He agrees with heparin bolus and drip, but given the patient's chronic kidney disease, nephrology needs to be involved prior to heart catheterization. He will most likely need echocardiogram. I will discuss patient with Dr. Gann for admission to the PCU. Patient is in stable condition. Lab Data Attestation: I reviewed the patient's lab results. Labs: Laboratory Results - last 24 hr 04/07/22 04/07/22 04/07/22 02:01 02:01 02:01 WBC 5.7 RBC 3.36 L Hgb 9.0 L Hct 29.4 L MCV 87.5 MCH 26.8 L MCHC 30.6 L RDW Std Deviation 49.1 H RDW Coeff of Rajendra 15.4 H Plt Count 214 MPV 11.6 Immature Gran % (Auto) 0.700 Neut % (Auto) 83.2 H Lymph % (Auto) 4.5 L [place] % (Auto) 11.3 H Eos % (Auto) 0.0 Baso % (Auto) 0.3 Absolute Neuts (auto) 4.8 Absolute Lymphs (auto) 0.26 L Nucleated RBC % 0 Differential Comment SCANNED Sodium 138 Potassium 4.3 Chloride 106 Carbon Dioxide 23.0 Anion Gap 9 BUN 76 H Creatinine 4.28 H Estim Creat Clear Calc 21.26 Est GFR (MDRD) Af Amer 19 L Est GFR (MDRD) Non-Af 16 L BUN/Creatinine Ratio 17.8 Glucose 248 H Calcium 8.6 Total Bilirubin 0.50 AST 100 H ALT 31 Alkaline Phosphatase 84 Troponin I High Sens 01196 H* B-Natriuretic Peptide 2759.2 H Total Protein 7.8 Albumin 3.2 Globulin 4.6 H Albumin/Globulin Ratio 0.7 L Urine Color Urine Clarity Urine pH Ur Specific [place] Urine Protein Urine Glucose (UA) Urine Ketones Urine Occult Blood Urine Nitrite Urine Bilirubin Urine Urobilinogen Ur Leukocyte Esterase Urine RBC Urine WBC Ur Squamous Epith Cells Amorphous Sediment Urine Bacteria Hyaline Casts Fine Granular Casts Coarse Granular Casts Urine Mucus 04/07/22 02:40 WBC RBC Hgb Hct MCV MCH MCHC RDW Std Deviation RDW Coeff of Rajendra Plt Count MPV Immature Gran % (Auto) Neut % (Auto) Lymph % (Auto) [place] % (Auto) Eos % (Auto) Baso % (Auto) Absolute Neuts (auto) Absolute Lymphs (auto) Nucleated RBC % Differential Comment Sodium Potassium Chloride Carbon Dioxide Anion Gap BUN Creatinine Estim Creat Clear Calc Est GFR (MDRD) Af Amer Est GFR (MDRD) Non-Af BUN/Creatinine Ratio Glucose Calcium Total Bilirubin AST ALT Alkaline Phosphatase Troponin I High Sens B-Natriuretic Peptide Total Protein Albumin Globulin Albumin/Globulin Ratio Urine Color Yellow Urine Clarity Sl. Cloudy Urine pH 7.0 Ur Specific [place] 1.010 Urine Protein 500 H Urine Glucose (UA) 100 H Urine Ketones Negative Urine Occult Blood 250 H Urine Nitrite Positive H Urine Bilirubin Negative Urine Urobilinogen Normal Ur Leukocyte Esterase 500 H Urine RBC 0-5 SEEN Urine WBC 0-5 SEEN Ur Squamous Epith Cells 0-5 SEEN Amorphous Sediment 2+ Urine Bacteria 2+ Hyaline Casts 0-5 SEEN Fine Granular Casts 0-5 SEEN Coarse Granular Casts 0-5 SEEN Urine Mucus 1+ Radiography Chest X-Ray - ED: Read by ED Physician Diagnostic Testing: Clinical Impression(s) from Imaging Studies Chest X-Ray 04/07/22 01:50 IMPRESSION: Normal x-ray examination of the chest. Electronically Signed: Courtney Vazquez MD at 2:48 EST , Discharge Plan Dx/Rx/DC Orders Clinical Impression: Near syncope, Generalized weakness, CHF (congestive heart failure), Hypoxia, Influenza A, Non-ST elevation [place] (NSTEMI), Acute kidney injury superimposed on chronic kidney disease Disposition Disposition: Acute Care [facility]
[2022-04-07] MEDS: 0.9% Normal Saline 1,000 ML 1000 ML IV (02:13)
[2022-04-07 02:25] LABS: Absolute Lymphocyte Count 0.26 X10^3/uL (0.83-4.51); Absolute Neutrophil Count 4.8 X10^3/uL (2.0-7.7); Basophil# 0.02 X10^3/uL; Basophil% 0.3 % (0-1); Hematocrit 29.4 % (40-54); Lymphocyte # 0.26 X10^3/ul (0.83-4.51); Lymphocyte % 4.5 % (19-41); Mean Corp Hgb Conc 30.6 g/dL (32-36); Mean Corpuscular Hgb 26.8 pg (27.0-32.0); Mean Corpuscular Volume 87.5 fL (80-94); Mean Platelet Vol. 11.6 fl (6.2-12.0); Monocyte# 0.65 X10^3/uL; Monocyte% 11.3 % (0-10); NRBC Flagged by Analyzer 0 % (0-5); Neutrophil # 4.76 X10^3/uL (2.7-7.7); Neutrophil % 83.2 % (47-70); POSITIVE DIFFERENTIAL YES; Platelet Count 214 K/mm3 (150-450); RBC Distribution Width CV 15.4 % (11.6-14.6); RBC Distribution Width SD 49.1 fl (35.1-43.9); Red Blood Count 3.36 M/mm3 (4.6-6.2); White Blood Count 5.7 K/mm3 (4.4-11.0)
[2022-04-07 02:27] LABS: Differential Indicated SCAN CRITERIA MET
[2022-04-07 02:40] LABS: BNP,B-Type NATRIURETIC PEPTIDE 2759.2 pg/mL (0-100); Differential Comment SCANNED
[2022-04-07 02:44] LABS: Color, Urine Yellow (Yellow); Glucose, Dipstick 100 mg/dl (Normal); Ketone-Dipstick Negative (Negative); Leukocyte Esterase-Dipstick 500 /ul (Negative); Nitrite-Dipstick Positive (Negative); Occult Blood-Urine 250 /ul (Negative); Protein-Dipstick 500 mg/dl (Negative); Urine Bilirubin Dipstick Negative (Negative); Urine Clarity Sl. Cloudy (Clear); Urine Urobilinogen Normal (Normal)
[2022-04-07 03:16] LABS: ALB/GLOB Ratio 0.7 RATIO (0.9-2.4); AST(SGOT) 100 U/L (15-37); Alanine Aminotransfer ALT/SGPT 31 U/L (16-61); Albumin, Serum 3.2 g/dL (3.2-5.0); Alkaline Phosphatase 84 U/L (45-117); Anion Gap 9 (5-15); BUN 76 mg/dL (7-18); BUN/Creat Ratio 17.8 RATIO (10-20); Calcium,Total 8.6 mg/dL (8.5-10.1); Chloride 106 mmol/L (98-107); Creatinine, Serum 4.28 mg/dL (0.70-1.30); EST Glomerular Filtration Rate 16 mL/min (>60); Est Glom Filt Rate - Afr Amer 19 mL/min (>60); Estimated Creatinine Clearance 21.26 ml/min; Globulin 4.6 g/dL (2.2-4.2); Glucose 248 mg/dL (74-106); Potassium 4.3 mmol/L (3.5-5.1); Protein, Total 7.8 g/dL (6.4-8.2); Sodium Level 138 mmol/L (136-145)
[2022-04-07] MEDS: Furosemide 40 MG/4 ML Vial IV (03:17)
[2022-04-07 03:23] LABS: Amorphous Sediment 2+; Bacteria 2+ /hpf (None Seen); Coarse Granular Cast 0-5 SEEN /lpf (0-5 /lpf); Fine Granular Cast- Urine 0-5 SEEN /lpf (0-5); Mucous, Urine 1+ /hpf (<or=2+); Red Blood Cells-Urine 0-5 SEEN /hpf (0-5); Squamous Epithelial Cells - UA 0-5 SEEN /hpf (0-5); White Blood Cells 0-5 SEEN /hpf (0-5)
[2022-04-07 03:24] LABS: Hyaline Cast 0-5 SEEN /lpf (0-5)
[2022-04-07] MEDS: Aspirin 81 MG TAB.CHEW 324 MG PO (03:39)
--- NOTE | 2022-04-07 03:40 | HP.PCM.HOS_ITS ---
HPI - General General Date of Admission: 04/07/22 Date of Service: 04/07/22 Chief Complaint: Cough, dyspnea, lightheadedness, near syncopal, N/V/D. HPI Narrative The patient is a 51 y/o M w/ PMHx: Chronic anemia/AOCD, CAD s/p PCI, Chronic Di astolic CHF/Ischemic cardiomyopathy, HTN, HLD, Depression and Anxiety, Diabetes mellitus type II w/ Hx diabetic foot wounds/infections/ulcers, Morbid Obesity, CKD stage IV who presents to the [facility] ED on 04/07/22 with history of significant generalized weakness and lightheadedness as well as dizziness with near syncopal sensation with dyspnea and cough as well as nausea, emesis, diarrhea, mild heada ches and body aches for the last several days which has been progressively worsening with episode where he actually dropped to the floor but did not pass out secondary to his symptoms; however, he had just felt so weak prompting him to call his son who called the squad given his ongoing symptoms. He denies any recent specific fevers or chills. Work-up in the ED included T97.5, heart rate 98, BP 174/83, respiratory rate 20, initially 92% on room air however did decrease to 87% on room air improving to 96% on 3 L nasal cannula, orthostatic vital signs not marked appearing, CBC with WC 5.7, hemoglobin 9.0, MCV 87.5, platelet 214 with lymphopenia, CMP with BUN/creatinine 76/4.28, glucose 248, t otal bilirubin 0.50, AST/ALT 100/31, alk phos 84, troponin 69235, BNP 2759.2, urinalysis with specific IV 1.010, protein 500, glucose 100, ketone negative, occult blood 250, positive nitrite, leukocyte Estrace 500 with no marked urine WBCs or RBCs but 2+ urine bacteria noted, chest x-ray with no acute cardiopulmonary findings, rapid influenza antigen positive, urine culture pending per ED, EKG with SR with ST depressions V4-V6 similar to prior and laterally which is new from prior. In the ED patient ministered full-strength aspirin as well as initiated on heparin drip with bolus. ED discussed case with Dr. Bey. Initially concerns per ED of overload thus patient had prior to admission been administered lasix 40 mg IV x 1 also. [facility]LY [facility] Medical History Atherosclerotic heart disease of [place] coronary artery without angina pectoris Chronic diastolic (congestive) heart failure Chronic kidney disease Depression Diabetes mellitus with diabetic polyneuropathy Diabetes mellitus, type II Diabetic infection of left foot Essential (primary) hypertension History of non-ST elevation myocardial infarction (NSTEMI) (03/15/20) History of stress test Hyperlipidemia Hypertension Infected sebaceous cyst Ischemic cardiomyopathy (06/2013) Non-pressure 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 of bone Non-pressure chronic ulcer of other part of left foot with fat layer exposed Obesity Paresthesias Partial nontraumatic amputation of right foot Pneumonia due to COVID-19 virus (03/14/20) Type 2 diabetes mellitus with diabetic neuropathy, unspecified Type 2 diabetes mellitus with foot ulcer Venous insufficiency Home Medications aspirin 81 mg chewable tablet 81 mg PO DAILY@0800 heart 09/28/14 [History Last Taken 12/20/18] amlodipine 5 mg tablet 5 mg PO DAILY Blood Pressure 30 days #30 tabs 06/21/21 [Rx Last Taken Unknown] atorvastatin 80 mg tablet 80 mg PO QHS cholesterol 30 days #30 tabs 06/21/21 [Rx Last Taken Unknown] citalopram 10 mg tablet 10 mg PO DAILY 30 days #30 tabs 06/21/21 [Rx Last Taken Unknown] clopidogrel 75 mg tablet 75 mg PO DAILY Blood Thinner 30 days #30 tabs 06/21/21 [Rx Last Taken Unknown] famotidine 20 mg tablet 20 mg PO DAILY GERD 30 days #30 tabs 06/21/21 [Rx Last Taken Unknown] furosemide 40 mg tablet 40 mg PO DAILY 7 days #7 tabs 06/21/21 [Rx Last Taken Unknown] hydralazine 25 mg tablet 25 mg PO BID 30 days #60 tabs 06/21/21 [Rx Last Taken Unknown] hydralazine 50 mg tablet 50 mg PO BID 30 days #60 tabs 06/21/21 [Rx Last Taken Unknown] insulin glargine 100 unit/mL (3 mL) subcutaneous pen (Lantus Solostar U-100 Insulin) 20 unit (0.2 mL) subcut BID Diabetes 30 days #12 mL 06/21/21 [Rx Last Taken Unknown] potassium chloride 20 mEq tablet,extended release(part/cryst) (KlsylwiaCon M) 20 meq PO DAILYCM 7 days #7 tabs 06/21/21 [Rx Last Taken Unknown] losartan 25 mg tablet 25 mg PO DAILY 01/09/22 [History Last Taken Unknown] metoprolol succinate 100 mg tablet,extended release 24 hr 100 mg PO DAILY 01/09/22 [History Last Taken Unknown] isosorbide mononitrate 60 mg tablet,extended release 24 hr 60 mg PO DAILY Heart 30 days #30 tabs 01/12/22 [Rx Last Taken Unknown] Allergy/AdvReac Type Severity Reaction Status Date / Time lisinopril AdvReac Intermediate Cough Verified 04/07/22 01:49 losartan AdvReac Intermediate cough Verified 04/07/22 01:49 Family History Father , Age 57 from [place] Myocardial infarction CAD (coronary artery disease) Sudden cardiac Mother Sick sinus syndrome Sister Diabetes Surgical History H/O cardiac catheterization History of coronary artery stent placement (01/02/19) Social History household members: none Smoking Status: Never smoker alcohol intake: current alcohol intake frequency: holidays/special occasions only substance use type: does not use caffeine: Yes Type: carbonated beverages Number of servings: 2 ROS ROS Narrative Admission Review of Systems: CONSTITUTIONAL: No weight loss, fever, chills, + weakness or fatigue. HEENT: + Headache, congestion, rhinorrhea, sore throat. Eyes: No visual loss, blurred vision, double vision or yellow sclerae. Ears, Nose, Throat: No hearing loss, sneezing. SKIN: No rash or itching, lesions, wounds. CARDIOVASCULAR: No chest pain, chest pressure or chest discomfort, palpitations, edema, orthopnea, syncopal events. RESPIRATORY: + shortness of breath, cough without marked sputum, wheezing, No hemoptysis. GASTROINTESTINAL: + anorexia, nausea, vomiting, diarrhea, No abdominal pain, melena, BRBPR. GENITOURINARY: No dysuria, frequency, urgency or retention. NEUROLOGICAL: + headache, near syncopal sensation/dizziness, No paralysis, ataxia, numbness or tingling in the extremities, focal weakness, change in bowel or bladder control, seizure. MUSCULOSKELETAL: + muscle, back pain, joint pain or stiffness. HEMATOLOGIC: + anemia, bleeding or bruising. LYMPHATICS: No enlarged nodes. No history of splenectomy. PSYCHIATRIC: + history of depression or anxiety. ENDOCRINOLOGIC: No reports of sweating, cold or heat intolerance. No polyuria or polydipsia. ALLERGIES: No history of asthma, hives, eczema or rhinitis. Vital Signs Vital Signs Vital Signs: 04/07/22 01:42 04/07/22 01:48 04/07/22 02:03 Temperature 97.5 F L Temperature Source Temporal Pulse Rate 98 Pulse Rate [Lying] 97 Pulse Rate [Sitting (for 1 minute prior to obtaining)] 96 Pulse Rate [Standing (for 1 minute prior to obtaining)] 104 H Respiratory Rate 20 H Respiratory Effort Normal Blood Pressure 174/83 H Blood Pressure [Lying] 175/89 H Blood Pressure [Sitting (for 1 minute prior to obtaining)] 171/91 H Blood Pressure [Standing (for 1 minute prior to obtaining)] 181/90 H Blood Pressure Mean 113 Blood Pressure Mean [Lying] 117 Blood Pressure Mean [Sitting (for 1 minute prior to obtaining)] 117 Blood Pressure Mean [Standing (for 1 minute prior to obtaining)] 120 Pulse Ox 92 Oxygen Delivery Method Room Air Oxygen Flow Rate (L/min) 04/07/22 02:14 04/07/22 02:15 04/07/22 03:20 Temperature Temperature Source Pulse Rate 99 Pulse Rate [Lying] Pulse Rate [Sitting (for 1 minute prior to obtaining)] Pulse Rate [Standing (for 1 minute prior to obtaining)] Respiratory Rate 23 H Respiratory Effort Blood Pressure 185/90 H Blood Pressure [Lying] Blood Pressure [Sitting (for 1 minute prior to obtaining)] Blood Pressure [Standing (for 1 minute prior to obtaining)] Blood Pressure Mean 121 Blood Pressure Mean [Lying] Blood Pressure Mean [Sitting (for 1 minute prior to obtaining)] Blood Pressure Mean [Standing (for 1 minute prior to obtaining)] Pulse Ox 87 95 96 Oxygen Delivery Method Room Air Nasal Cannula Nasal Cannula Oxygen Flow Rate (L/min) 4 3 Weight Weight: 305 lb 5.443 oz Body Mass Index (BMI) 42.5 Physical Exam Narrative Physical Examination: General: Awake, alert, oriented x 3 and cooperative, laying flat in the ED bed, fatigued and ill-appearing, auditory wheezing noted immediately, mildly disheveled. Skin: Normal color, normal turgor, no icterus, no cyanosis except for bilateral lower extremity chronic venous stasis skin changes. HEENT: AT/NC, EOMI, PERRLA, dry MM, no carotid bruits or JVD noted; however, thickened neck makes evaluation difficult. Lungs: Significantly diminished, greater bases, mild increased respiratory rate, diffuse expiratory wheezing, no obvious rales or rhonchi, laying flat in the bed. Heart: Mildly tachycardic with regular rhythm; no gallop, rub audible. Abdomen: Soft, morbidly obese, NTTP, ND, hyperactive BS, no HSM. Extremities: No cyanosis, clubbing, or edema. Neurological: Patient awake, alert, oriented as noted, cognitive function intact; pupils equally reactive to light and accommodation, cranial nerves II- XII grossly normal, moving all 4 extremities, no focal deficits, strength severely globally can [place] to acute illness presentation. Psychiatric: Affect appears fatigued, ill-appearing, no acute evidence of depressive or anxiety feelings. Results Lab / Micro Data Result Diagrams: 04/07/22 02:01 04/07/22 02:01 Labs: Laboratory Results - last 24 hr 04/07/22 02:01: WBC 5.7, RBC 3.36 L, Hgb 9.0 L, Hct 29.4 L, MCV 87.5, MCH 26.8 L , MCHC 30.6 L, RDW Std Deviation 49.1 H, RDW Coeff of Rajendra 15.4 H, Plt Count 214, MPV 11.6, Immature Gran % (Auto) 0.700, Neut % (Auto) 83.2 H, Lymph % (Auto) 4.5 L, [place] % (Auto) 11.3 H, Eos % (Auto) 0.0, Baso % (Auto) 0.3, Absolute Neuts (auto) 4.8, Absolute Lymphs (auto) 0.26 L, Nucleated RBC % 0, Differential Comment SCANNED 04/07/22 02:01: Sodium 138, Potassium 4.3, Chloride 106, Carbon Dioxide 23.0, Anion Gap 9, BUN 76 H, Creatinine 4.28 H, Estim Creat Clear Calc 21.26, Est GFR (MDRD) Af Amer 19 L, Est GFR (MDRD) Non-Af 16 L, BUN/Creatinine Ratio 17.8, Glucose 248 H, Calcium 8.6, Total Bilirubin 0.50, AST 100 H, ALT 31, Alkaline Ph osphatase 84, Troponin I High Sens 02379 H*, Total Protein 7.8, Albumin 3.2, Globulin 4.6 H, Albumin/Globulin Ratio 0.7 L 04/07/22 02:01: B-Natriuretic Peptide 2759.2 H 04/07/22 02:40: Urine Color Yellow, Urine Clarity Sl. Cloudy, Urine pH 7.0, Ur Specific [place] 1.010, Urine Protein 500 H, Urine Glucose (UA) 100 H, Urine Ketones Negative, Urine Occult Blood 250 H, Urine Nitrite Positive H, Urine Bilirubin Negative, Urine Urobilinogen Normal, Ur Leukocyte Esterase 500 H, Urine RBC 0-5 SEEN, Urine WBC 0-5 SEEN, Ur Squamous Epith Cells 0-5 SEEN, Amorphous Sediment 2+, Urine Bacteria 2+, Hyaline Casts 0-5 SEEN, Fine Granular Casts 0-5 SEEN, Coarse Granular Casts 0-5 SEEN, Urine Mucus 1+ Micro: Microbiology 04/07/22 02:03 Nasal Secretion SARS-CoV-2 & FLU Antigen (Rapid) - Final Influenzae A Radiology Impression Chest X-Ray 04/07/22 01:50 IMPRESSION: Normal x-ray examination of the chest. Electronically Signed: Courtney Vazquez MD at 2:48 EST Reading Location ID and State: [facility] / [place] Tel , Service support , Assessment & Plan Assessment/Plan (1) Influenza A: (2) Hypoxia: (3) Non-ST elevation [place] (NSTEMI): (4) Acute kidney injury superimposed on chronic kidney disease: PLAN: Plan The patient is a 51 y/o M w/ PMHx: Chronic anemia/AOCD, CAD s/p PCI, Chronic Diastolic CHF/Ischemic cardiomyopathy, HTN, HLD, Depression and Anxiety, Diabetes mellitus type II w/ Hx diabetic foot wounds/infections/ulcers, Morbid Obesity, CKD stage IV who presents to the [facility] ED on 04/07/22 with history of significant generalized weakness and lightheadedness as well as dizziness with near syncopal sensation with dyspnea and cough for the last several days which has been progressively worsening with episode where he actually dropped to the floor but did not pass out secondary to his symptoms; however, he had just felt so weak prompting him to call his son who called the squad given his ongoing symptoms. #1. Acute Hypoxemia secondary to Acute Influenza A Viral Syndrome: CXR in the ED w/ no acute cardiopulmonary findings. Admission CBC w/ WBC normal range with no left shift. Influenza A positive. Will admit to PCU, will initiate on renally dosed Tamiflu, maintain on oxygen with wean as tolerated, will initiate on IV Solu-Medrol given notable wheezing upon evaluation, continue ATC duonebs, PRN albuterol, HOB, IS parameters. PT/OT/case management consulted for discharge planning. #2. Acute NSTEMI type II secondary to acute presentation #1: EKG in ED w/ EKG with SR with ST depressions V4-V6 similar to prior and laterally which is new from prior, CXR w/ no acute cardiopulmonary findings, trop [place], [address]. Will maintain on a monitored bed, continue serial cardiac enzymes and EKGs. Obtain magnesium level upon admission. Start Heparin drip. Continue medical management w/ asa, BB, statin w/ AM FLP. ECHO ordered. Cardiology consulted, initiated per ED. ASA, NG, morphine. #3. Acute kidney injury on CKD stage IV: Secondary to acute presentation #1 with dehydration and concurrent GI losses with N/V/D. Admission BUN/Cr 76/4.28, prior baseline creatinine noted to be primarily 2.5-2.8. Will very judiciously hydrate given underlying history with diastolic CHF and ischemic cardiomyopathy, hold nephrotoxic medications temporarily and repeat chemistry in AM, if function worsening further low threshold to obtain urine FeNa as well as renal US. #4. ? Possible Acute Complicated Urinary Tract Infection, lower suspicion: UA upon ED evaluation remarkable, pending UCx, continue very judicious IVFs, monit or I/Os, patient with no recent urinary symptoms therefore will hold on immediate antibiotic therapy, awaiting urine culture especially given no marked WC elevation or left shift. #5. Chronic diastolic CHF, Appears Compensated, Initial ED concern exacerbation; however, lower suspicion of decompensated status, appears dehydrated: 12/27/2020 echocardiogram with normal LV size, mild concentric LVH, normal LV systolic function, EF 55%, stage I diastolic dysfunction. Patient does have elevated BNP however chest x-ray with no acute cardiopulmonary findings and patient does have reasonable explanation for his hypoxia given his acute influenza A. Lower suspicion for decompensated CHF and given patient presentation more suspicious for mild dehydration therefore judiciously hydrating as noted, continue aspirin, statin, metoprolol, temporally holding losartan and Lasix given CORA as noted. #6. CAD: Status post PCI, will continue aspirin, statin, metoprolol home regimen, temporarily holding losartan given CORA as noted, resume once appropriate #7. Diabetes mellitus type II with neuropathy, history of diabetic foot infection: Hold oral home regimen, continue home insulin regimen, ADA diet, accu checks w/ ISS. #8. Hypertension: Continue home regimen including metoprolol, amlodipine, is osorbide, hydralazine, temporarily holding Lasix/losartan given CORA, PRN hydralazine. #9. Hyperlipidemia: We will continue patient on statin therapy. #10. Anxiety and depression: We will continue patient home citalopram regimen. #11. Chronic anemia, normocytic/AOCD: Admission hemoglobin 9.0, MCV 87.5, baseline hemoglobin noted prior primarily 7-9, stable, continue to trend. #12. Morbid Obesity: Weight loss and lifestyle changes encouraged. #13. DVT prophylaxis: SCDs, heparin drip. #14. CODE status: Patient does not have healthcare power of corporate attorney nor living will in place however he notes that if he was unable to make decisions for himself he would like his sons to make these decisions in his stead. Discussed CODE status at length including difference between FULL code, DNR-CCA and DNR-CC status. Following discussions about the differences in these status, requested Full Code status. Advanced Care Planning Face to Face Time: 16 minutes. Charges/Coding Visit Charges Inpatient E&M: 97557 Init Hosp L3 Procedures Hospitalists Procedures: 84758 Advncd Care Plan 30 Min
[2022-04-07] MEDS: Heparin Injection (Vial) 5,000 UNIT/ML VIAL 4000 UNIT IV (03:41)
[2022-04-07 03:46] LABS: International Normalized Ratio 1.2; Prothrombin Time (Protime)PT. 15.3 SECONDS (11.7-14.9)
[2022-04-07] MEDS: HEPARIN/D5w 25,000 UNITS 25,000 UNITS/250 ML IV.SOLN. 10 UNITS CONT INF (03:46)
[2022-04-07 03:47] LABS: Partial Thromboplast Time 35.2 Seconds (24.1-36.2)
[2022-04-07] MEDS: MethylPREDNISolone 125 MG/2 ML Vial IV (04:16)
[2022-04-07] MEDS: 0.9% Normal Saline 1,000 ML 125 ML IV (04:38)
--- NOTE | 2022-04-07 04:38 | EKG12_ITS ---
Test Reason : ROUTINE Blood Pressure : / mmHG Vent. Rate : 074 BPM Atrial Rate : 074 BPM P-R Int : 160 ms QRS Dur : 120 ms QT Int : 386 ms P-R-T Axes : 058 050 169 degrees QTc Int : 428 ms Sinus rhythm with occasional Premature ventricular complexes Possible Inferior infarct , age undetermined ST & T wave abnormality, consider lateral ischemia Abnormal ECG Confirmed by JULIA NUNEZ, JAZMINE ([id number]), book or script editor ISRAEL MALIK ([id number]) on 04/13/2022 9:53:21 AM Referred By: JULIA Confirmed By:JAZMINE DUMONT MD
--- NOTE | 2022-04-07 04:39 | ED.RN ---
Pt O2 dropped to 86% on 3L NC while sleeping. Pt placed on 5L NC to be brought up to 98%. Dr. Johnson notified.
[2022-04-07 05:16] LABS: Magnesium 1.8 mg/dL (1.6-2.6)
[2022-04-07] MEDS: 0.9% Normal Saline 1,000 ML 100 ML IV ×2 (05:40→14:36)
--- NOTE | 2022-04-07 05:55 | ECHOCS_ITS ---
Reason For Study: NSTEMI Procedure This was a 2D Doppler, Color Flow transthoracic echocardiogram. The study was technically difficult. Contrast injection was performed. Exam performed portable in patient room. Left Ventricle Normal LV size. Severe concentric left ventricular hypertrophy. Mild segmental systolic dysfunction (see wall motion). The estimated ejection fraction is 45 %. Diastolic function is indeterminate. Posterior-Basal: Hypokinetic. Infero-Basal: Hypokinetic. Basal anteroseptal: Hypokinetic. Mid- Anterior : Hypokinetic. Mid-Inferior: Hypokinetic. Mid-inferoseptal : Hypokinetic. Mid- anteroseptal : Hypokinetic. [place] : Hypokinetic. Right Ventricle Normal RV size. Normal systolic function. Atria The left atrium is mildly enlarged. Normal right atrium. No doppler evidence for ASD. Mitral Valve There is no mitral annular calcification. Mild focal mitral valve calcification, bileaflet. Trivial mitral valve insufficiency. Tricuspid Valve Normal tricuspid valve. Trivial tricuspid valve insufficiency. Unable to estimate RV systolic pressure/pulmonary artery pressure due to technically difficult study. Aortic Valve Trisinus/trileaflet aortic valve. Mild focal aortic valve calcification. Pulmonic Valve The pulmonic valve is not well visualized. Great Vessels Normal sized aortic root. Pericardium/Pleural Small pericardial effusion. There are no echocardiographic indications of cardiac tamponade. Medication Diluted definity 2ml given slow IV push to enhance endocardial definition. MMode/2D Measurements & Calculations LVIDd: 5.4 cm IVSd: 2.1 cm Ao root diam: 2.9 cm LVIDs: 4.7 cm LVPWd: 2.2 cm FS: 12.2 % LAV(MOD-sp4): 69.7 ml LA A4 area: 22.6 cm2 Time Measurements MV dec time: 0.19 sec Doppler Measurements & Calculations MV E max finesse: 96.5 cm/sec Lat Peak E' Finesse: 6.4 cm/sec Med Peak E' Finesse: 5.3 cm/sec MV A max finesse: 81.7 cm/sec E/E' lat: 15.1 E/E' med: 18.1 MV E/A: 1.2 MV V2 max: 101.5 cm/sec MV P1/2t max finesse: 101.0 cm/sec Ao V2 max: 106.2 cm/sec MV max P.1 mmHg MV P1/2t: 63.0 msec Ao max P.5 mmHg MV V2 mean: 65.9 cm/sec MV dec slope: 469.5 cm/sec2 MV mean P.0 mmHg MV V2 VTI: 25.3 cm MVA(P1/2t): 3.5 cm2 LV V1 max: 78.0 cm/sec PA V2 max: 85.7 cm/sec LV V1 max P.4 mmHg LV V1 mean P.3 mmHg LV V1 mean: 52.8 cm/sec LV V1 VTI: 15.0 cm ECHO/Echo Complete W/ Contrast Interpretation Summary The study was technically difficult. Contrast injection was performed. Mild segmental systolic dysfunction (see wall motion). The estimated ejection fraction is 45 %. Severe concentric left ventricular hypertrophy. The left atrium is mildly enlarged. Mild focal mitral valve calcification, bileaflet. Trivial mitral valve insufficiency. Trivial tricuspid valve insufficiency. Mild focal aortic valve calcification. Small pericardial effusion. There are no echocardiographic indications of cardiac tamponade. Unable to estimate RV systolic pressure/pulmonary artery pressure due to techni alex difficult study. Diastolic function is indeterminate. Ordering Physician: Colleen Gann Referring Physician: Joseph Ricks Performed By: Salazar Tsang RCS
[2022-04-07] MEDS: Oseltamivir Phosphate 30 MG Capsule PO (05:58)
[2022-04-07] MEDS: 0.9% Saline Lock 10 ML Syringe IV ×2 (05:58→13:07)
[2022-04-07 06:20] LABS: Absolute Lymphocyte Count 0.23 X10^3/uL (0.83-4.51); Basophil# 0.01 X10^3/uL; Basophil% 0.2 % (0-1); Hematocrit 26.4 % (40-54); Hemoglobin 8.1 g/dL (13.0-16.5); Lymphocyte # 0.23 X10^3/ul (0.83-4.51); Lymphocyte % 4.9 % (19-41); Mean Corp Hgb Conc 30.7 g/dL (32-36); Mean Corpuscular Hgb 26.6 pg (27.0-32.0); Mean Corpuscular Volume 86.8 fL (80-94); Mean Platelet Vol. 11.6 fl (6.2-12.0); Monocyte# 0.39 X10^3/uL; Monocyte% 8.4 % (0-10); NRBC Flagged by Analyzer 0 % (0-5); Neutrophil # 4.01 X10^3/uL (2.7-7.7); Neutrophil % 85.9 % (47-70); POSITIVE DIFFERENTIAL YES; Platelet Count 197 K/mm3 (150-450); RBC Distribution Width CV 15.3 % (11.6-14.6); RBC Distribution Width SD 48.8 fl (35.1-43.9); Red Blood Count 3.04 M/mm3 (4.6-6.2); White Blood Count 4.7 K/mm3 (4.4-11.0)
[2022-04-07] MEDS: Insulin Lispro 100 UNIT/ML INSULN.PEN SC ×4 (06:41→21:50)
[2022-04-07 06:53] LABS: ALB/GLOB Ratio 0.7 RATIO (0.9-2.4); AST(SGOT) 96 U/L (15-37); Alanine Aminotransfer ALT/SGPT 28 U/L (16-61); Albumin, Serum 2.8 g/dL (3.2-5.0); Alkaline Phosphatase 74 U/L (45-117); Anion Gap 8 (5-15); BUN 77 mg/dL (7-18); BUN/Creat Ratio 18.2 RATIO (10-20); Chloride 108 mmol/L (98-107); Cholesterol 168 mg/dL (200); Creatinine, Serum 4.23 mg/dL (0.70-1.30); EST Glomerular Filtration Rate 16 mL/min (>60); Est Glom Filt Rate - Afr Amer 19 mL/min (>60); Estimated Creatinine Clearance 21.51 ml/min; Glucose 217 mg/dL (74-106); High Density Lipoprotein 35 mg/dL; Protein, Total 6.8 g/dL (6.4-8.2); Sodium Level 139 mmol/L (136-145); Triglycerides 94 mg/dL; Very Low Density Lipoprotein 19 mg/dL (5-40)
[2022-04-07] MEDS: Ipratropium/Albuterol Sulfate 3 ML AMPUL.NEB INHALATION ×4 (07:00→19:20)
[2022-04-07 07:02] LABS: Differential Indicated SCAN CRITERIA MET
--- NOTE | 2022-04-07 07:20 | NURSING ---
Emergency documentation in effect per Charge nurse RADHA Almanzar.
[2022-04-07 07:40] LABS: Bedside Glucose 188 mg/dL (74-106)
[2022-04-07 07:43] LABS: Differential Comment SCANNED
[2022-04-07 08:14] LABS: Troponin-I HS 36350 pg/mL (3.0-78.0)
[2022-04-07] MEDS: hydrALAZINE 50 MG Tablet PO ×2 (08:28→21:49)
[2022-04-07] MEDS: Clopidogrel Bisulfate 75 MG Tablet PO (08:29)
[2022-04-07] MEDS: Aspirin 81 MG TAB.CHEW PO (08:29)
[2022-04-07] MEDS: Isosorbide Mononitrate 60 MG Tablet PO (08:29)
[2022-04-07] MEDS: amLODIPine 5 MG Tablet PO (08:29)
[2022-04-07] MEDS: Potassium Chloride Oral Tablet 20 MEQ PO (08:29)
[2022-04-07] MEDS: Citalopram 10 MG Tablet PO (08:29)
[2022-04-07] MEDS: Metoprolol(XL)Succ 100 MG Tablet PO (08:29)
[2022-04-07] MEDS: hydrALAZINE 25 MG Tablet PO ×2 (08:29→21:50)
[2022-04-07 08:43] LABS: Hemoglobin A1c 9.1 % (3.8-5.6)
--- NOTE | 2022-04-07 09:24 | PCM.CONS.C ---
Assessment & Plan Assessment/Plan (1) Non-ST elevation UT (NSTEMI): PLAN: The patient has a cardiovascular history as noted. He has abnormal cardiac enzymes which appears compatible with a non-ST segment elevation UT. At the moment the concern is this is a type II event brought out by his influenza A associated hypoxemia superimposed upon his cardiovascular noncardiovascular conditions. At the present time the patient's cardiac enzymes are decreasing. His ECG is noted. He has been asked to have an echocardiogram to reassess his left ventricular wall motion and systolic function. His previous noninvasive and invasive studies were reviewed. Depending upon his clinical course he may eventually need reevaluation either noninvasively such as a pharmacologic stress nuclear imaging study or invasively such as a diagnostic cardiac catheterization. However, barring an urgent/emergent event, its reasonable to hold on diagnostic cardiac catheterization at this time secondary to his acute on chronic renal sufficiency and the concern of additional IV contrast related nephropathy. He will continue medical management in the interim. This would include agent such as his aspirin, nitrates-isosorbide mononitrate, [id number]-fxspdtlmyb, lipid-lowering agents-atorvastatin, antihypertensive agent as deemed appropriate, along with his antiplatelet agent-clopidogrel/Plavix. (2) Atherosclerotic heart disease of [place] coronary artery without angina pectoris: PLAN: The patient has a history of CAD. His previous records were reviewed. At the moment he will continue his noninvasive valuation. He will continue medical therapy as noted above. (3) History of coronary artery stent placement: PLAN: The patient has a history of previous PCI. His most recent cardiac catheterization is as noted. Again he will continue his noninvasive evaluation at this time. He will continue medical management with the medications as noted above with adjustment as deemed appropriate. (4) Chronic diastolic (congestive) heart failure: PLAN: The patient has history of chronic diastolic mediated CHF. At the moment he does not appear to have acute on chronic diastolic mediated CHF. He will continue his noninvasive valuation. He will continue medical therapy. He will need to be monitored as he receives IV fluid for any obvious evidence of the development of volume overload. (5) Hyperlipidemia: PLAN: The patient should continue cardiovascular risk factor evaluation and care. This care would include continuation of his lipid-lowering agent with his atorvastatin. (6) Essential (primary) hypertension: PLAN: The patient's blood pressure will need to be monitored. His medications can be adjusted accordingly. (7) Diabetes mellitus: PLAN: The patient has diabetes mellitus. He will continue evaluation care per internal medicine. (8) Acute kidney injury superimposed on chronic kidney disease: PLAN: The patient appears to have acute on chronic renal insufficiency. This may be related to the patient's noncardiovascular issues and diminished intravascular volume and dehydration. He is receiving IV fluids. His renal function with respect to his BUN and creatinine levels will need to be monitored during this time. His renal insufficiency does play a role with respect to additional cardiovascular studies such as diagnostic cardiac catheterization, etc. (9) Influenza A: PLAN: The patient has been diagnosed with influenza A. This may be the culprit for his overall clinical course leading to his symptoms and no other objective findings. He is in isolation precaution. He is being treated with antiviral medication-Tamiflu. (10) Hypoxia: PLAN: The patient has a history of hypoxemia. Is thought this is related to his ongoing influenza A event. He continues with O2 support. His hypoxemia may be the culprit for his abnormal cardiac enzymes, etc. as noted above. (11) Near syncope: PLAN: The patient reported the sensation of feeling as if he would lose consciousness but apparently did not. This may be related to his ongoing noncardiac event and decreased intravascular volume, etc. At the same time he is being evaluated from a cardiovascular standpoint with noninvasive studies. His cardiac rhythm is being monitored as well for any obvious changes that would raise concerns of additional cardiovascular issues contributing to his symptoms and findings. Addt'l Comments The patient's case has been discussed and reviewed with patient and previously with Dr. Gann of the [facility] staff. Thank you for allowing me to participate in the care of your patient. Please don't hesitate to call if any issues arise. This note was generated using a voice recognition system and there may be incorrect words, spelling or punctuation that were not noted when reviewing the office note prior to saving. HPI Consult Data Date of Consult: 04/07/22 HPI Narrative HPI Narrative: YOSEPH PERSAUD, is a 51 year old white male who presents for cardiovascular consultation based upon concerns of abnormal cardiac enzymes and an abnormal ECG superimposed upon a history of underlying CAD, status post PCI, previous non-ST segment elevation UT, chronic diastolic mediated CHF, hyperlipidemia, hypertension, diabetes mellitus, chronic renal insufficiency, status post COVID-19 (2019), now with influenza a positive, concerns of dehydration, and acute on chronic renal insufficiency. The patient states that several days ago he felt like he got hit hard . He states he knew he was ill and should have presented to his physicians or the hospital but he elected to wait at home. He states as time progressed he felt worse. He elected to present to the emergency department for evaluation. In the emergency department status post review of his case he was subsequently noted to have abnormal cardiac enzymes and an abnormal ECG. There were concerns of an acute coronary syndrome. At the same time there were concerns that he having an elevated BNP thought secondary to acute on chronic diastolic mediated CHF. There were also concerns that he had acute on chronic renal insufficiency. He was subsequently diagnosed with influenza A. He was also noted during this time to be hypoxic and requiring O2 therapy. He was subsequently placed in the PCU for further evaluation. Status post evaluation by internal medicine there were concerns that his findings may have been related to his influenza A and subsequent hypoxia and dehydration which would lead to his abnormal cardiac enzyme levels and his acute on chronic renal insufficiency as opposed to the patient having a primary acute coronary syndrome type I event. At the present time the patient does not recall having any chest discomfort at home or in the hospital. He does note he may have been more short of breath and dyspneic. He denies any acute diaphoresis. He does not recall having any acute orthopnea or PND. He does have an element of bilateral ankle edema. Upon further evaluation he does admit that at home during this time he has felt somewhat weak. He does recall having a cough as well as feeling somewhat nauseated, having emesis, loose bowel movement/diarrhea, and generalized body aches. He states he felt weak and as if he might lose consciousness but he does not recall losing consciousness. He states he thought he was keeping up with his fluids. He admits his appetite was diminished and he had not been keeping up with solid food. He states he does become very emotional at times regarding his medical history. He did so during his consultation as well. His hospital stay is demonstrated abnormal cardiac enzyme levels with high sensitive troponin I levels. They have increased and subsequently started to decrease. His ECG appeared to demonstrate sinus rhythm with an inferior UT of indeterminate age cannot be excluded and ST and T wave changes potentially compatible with myocardial ischemia-lateral. His repeat ECG demonstrated no acute changes. He has been noted to have previous ST and T wave changes on previous electrocardiograms. He has been treated medically. This has included the addition of IV heparin. He is also been receiving IV fluids. [facility] Medical History Atherosclerotic heart disease of [place] coronary artery without angina pectoris Chronic diastolic (congestive) heart failure Chronic kidney disease Depression Diabetes mellitus with diabetic polyneuropathy Diabetes mellitus, type II Diabetic infection of left foot Essential (primary) hypertension History of non-ST elevation myocardial infarction (NSTEMI) (03/15/20) History of stress test Hyperlipidemia Hypertension Infected sebaceous cyst Ischemic cardiomyopathy (06/2013) Non-pressure 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 of bone Non-pressure chronic ulcer of other part of left foot with fat layer exposed Obesity Paresthesias Partial nontraumatic amputation of right foot Pneumonia due to COVID-19 virus (03/14/20) Type 2 diabetes mellitus with diabetic neuropathy, unspecified Type 2 diabetes mellitus with foot ulcer Venous insufficiency Home Medications aspirin 81 mg chewable tablet 81 mg PO DAILY@0800 heart 09/28/14 [History Last Taken 12/20/18] amlodipine 5 mg tablet 5 mg PO DAILY Blood Pressure 30 days #30 tabs 06/21/21 [Rx Last Taken Unknown] atorvastatin 80 mg tablet 80 mg PO QHS cholesterol 30 days #30 tabs 06/21/21 [Rx Last Taken Unknown] citalopram 10 mg tablet 10 mg PO DAILY 30 days #30 tabs 06/21/21 [Rx Last Taken Unknown] clopidogrel 75 mg tablet 75 mg PO DAILY Blood Thinner 30 days #30 tabs 06/21/21 [Rx Last Taken Unknown] famotidine 20 mg tablet 20 mg PO DAILY GERD 30 days #30 tabs 06/21/21 [Rx Last Taken Unknown] furosemide 40 mg tablet 40 mg PO DAILY 7 days #7 tabs 06/21/21 [Rx Last Taken Unknown] hydralazine 25 mg tablet 25 mg PO BID 30 days #60 tabs 06/21/21 [Rx Last Taken Unknown] hydralazine 50 mg tablet 50 mg PO BID 30 days #60 tabs 06/21/21 [Rx Last Taken Unknown] insulin glargine 100 unit/mL (3 mL) subcutaneous pen (Lantus Solostar U-100 Insulin) 20 unit (0.2 mL) subcut BID Diabetes 30 days #12 mL 06/21/21 [Rx Last Taken Unknown] potassium chloride 20 mEq tablet,extended release(part/cryst) (Klor-Con M) 20 meq PO DAILYCM 7 days #7 tabs 06/21/21 [Rx Last Taken Unknown] losartan 25 mg tablet 25 mg PO DAILY 01/09/22 [History Last Taken Unknown] metoprolol succinate 100 mg tablet,extended release 24 hr 100 mg PO DAILY 01/09/22 [History Last Taken Unknown] isosorbide mononitrate 60 mg tablet,extended release 24 hr 60 mg PO DAILY Heart 30 days #30 tabs 01/12/22 [Rx Last Taken Unknown] Allergy/AdvReac Type Severity Reaction Status Date / Time lisinopril AdvReac Intermediate Cough Verified 04/07/22 01:49 losartan AdvReac Intermediate cough Verified 04/07/22 01:49 Family History Father , Age 57 from [place] Myocardial infarction CAD (coronary artery disease) Sudden cardiac Mother Sick sinus syndrome Sister Diabetes Surgical History H/O cardiac catheterization History of coronary artery stent placement (01/02/19) Social History household members: none Smoking Status: Never smoker alcohol intake: current alcohol intake frequency: holidays/special occasions only substance use type: does not use caffeine: Yes Type: carbonated beverages Number of servings: 2 ROS Constitutional Constitutional: Reports fatigue, poor appetite and weakness Eyes Eyes: Reports as per HPI ENT HEENT: Reports as per HPI Cardiovascular Cardiovascular: Reports as per HPI Respiratory/Chest Respiratory/Chest: Reports cough, dyspnea and wheezing Gastrointestinal Gastrointestinal: Reports diarrhea, nausea and vomiting Genitourinary Genitourinary: Reports as per HPI Musculoskeletal Musculoskeletal: Reports as per HPI Integumentary Integumentary: Reports as per HPI Neurologic Neurologic: Reports as per HPI Physical Exam Const alert, oriented x3 and no apparent distress Orientation / Consciousness: awake HEENT normocephalic, head/scalp atraumatic and hearing grossly normal bilaterally Eyes PERRL, EOMs intact bilaterally, conjunctivae normal and no scleral icterus Neck full ROM, supple and no JVD Carotids: normal carotid upstroke Resp normal respiratory effort Auscultation: wheezes scattered wheezes Cardio regular rate, regular rhythm, S1 normal heart sound and S2 normal heart sound GI normal to inspection, nondistended, normoactive bowel sounds Extremity General Extremity: edema bilateral lower extremity Details: mild Skin no rashes or lesions noted Psych mental status grossly normal Risk Stratification Risk Stratification Applicable: Yes Age >/= 65: No >/= 3 CAD Risk Factors (HTN, HLD, DM, family hx of CAD, or current smoker): Yes Aspirin Use in the Past 7 Days: Yes Severe Angina (>/= episodes in 24 hours): No EKG ST Changes >/= 0.5mm: Yes Positive Cardiac Marker: Yes CRISTI Risk Stratification Score: 4 CRISTI % Risk: 20% Risk Procedure Criteria Type of Procedure Procedure Type: Elective Elective Risks - COVID COVID Risk Discussion: The surgeon/proceduralist and patient have discussed in detail the risk of exposure to and/or potential harm posed by the COVID-19 virus with having a surgery/procedure at this time versus the risk of delaying the surgery/procedure. It is not possible to know either the risk of delaying the surgery or procedure or chance of getting an infection with perfect accuracy, but a joint decision was made between the patient and the surgeon/proceduralist to proceed at this time with the scheduled surgery/procedure as indicated on the consent form. Objective Data Vital Signs: Vital Signs Temp Pulse Resp BP Pulse Ox O2 Del Method O2 Flow Rate 97.3 F L 83 16 160/94 H 98 Nasal Cannula 3 04/07/22 08:06 04/07/22 08:29 04/07/22 08:06 04/07/22 08:29 04/07/22 08:06 04/07/22 08:16 04/07/22 08:16 Oxygen Flow Rate (L/min) 3 Oxygen Delivery Method Nasal Cannula Weight: 298 lb 4.567 oz Body Mass Index (BMI) 41.5 Intake & Output: Intake and Output for Last 24 Hours 04/05/22 04/06/22 04/07/22 23:59 23:59 23:59 Intake Total 1000 / 1000 Balance 1000 / 1000 Lab / Micro Data Result Diagrams: 04/07/22 05:40 04/07/22 05:40 Labs: Laboratory Results - last 24 hr 04/07/22 02:01: WBC 5.7, RBC 3.36 L, Hgb 9.0 L, Hct 29.4 L, MCV 87.5, MCH 26.8 L, MCHC 30.6 L, RDW Std Deviation 49.1 H, RDW Coeff of Rajendra 15.4 H, Plt Count 214, MPV 11.6, Immature Gran % (Auto) 0.700, Neut % (Auto) 83.2 H, Lymph % (Auto) 4.5 L, Banks % (Auto) 11.3 H, Eos % (Auto) 0.0, Baso % (Auto) 0.3, Absolute Neuts (auto) 4.8, Absolute Lymphs (auto) 0.26 L, Nucleated RBC % 0, Differential Comment SCANNED 04/07/22 02:01: Sodium 138, Potassium 4.3, Chloride 106, Carbon Dioxide 23.0, Anion Gap 9, BUN 76 H, Creatinine 4.28 H, Estim Creat Clear Calc 21.26, Est GFR (MDRD) Af Amer 19 L, Est GFR (MDRD) Non-Af 16 L, BUN/Creatinine Ratio 17.8, Glucose 248 H, Calcium 8.6, Total Bilirubin 0.50, AST 100 H, ALT 31, Alkaline Phosphatase 84, Troponin I High Sens 19972 H*, Total Protein 7.8, Albumin 3.2, Globulin 4.6 H, Albumin/Globulin Ratio 0.7 L 04/07/22 02:01: B-Natriuretic Peptide 2759.2 H 04/07/22 02:01: PT 15.3 H, INR 1.2, APTT 35.2 04/07/22 02:01: Magnesium 1.8 04/07/22 02:40: Urine Color Yellow, Urine Clarity Sl. Cloudy, Urine pH 7.0, Ur Specific [place] 1.010, Urine Protein 500 H, Urine Glucose (UA) 100 H, Urine Ketones Negative, Urine Occult Blood 250 H, Urine Nitrite Positive H, Urine Bilirubin Negative, Urine Urobilinogen Normal, Ur Leukocyte Esterase 500 H, Urine RBC 0-5 SEEN, Urine WBC 0-5 SEEN, Ur Squamous Epith Cells 0-5 SEEN, Amorphous Sediment 2+, Urine Bacteria 2+, Hyaline Casts 0-5 SEEN, Fine Granular Casts 0-5 SEEN, Coarse Granular Casts 0-5 SEEN, Urine Mucus 1+ 04/07/22 05:40: WBC 4.7, RBC 3.04 L, Hgb 8.1 L, Hct 26.4 L, MCV 86.8, MCH 26.6 L, MCHC 30.7 L, RDW Std Deviation 48.8 H, RDW Coeff of Rajendra 15.3 H, Plt Count 197, MPV 11.6, Immature Gran % (Auto) 0.600, Neut % (Auto) 85.9 H, Lymph % (Auto) 4.9 L, Banks % (Auto) 8.4, Eos % (Auto) 0.0, Baso % (Auto) 0.2, Absolute Neuts (auto) 4.0, Absolute Lymphs (auto) 0.23 L, Nucleated RBC % 0, Differential Comment SCANNED 04/07/22 05:40: Sodium 139, Potassium 4.0, Chloride 108 H, Carbon Dioxide 23.0, Anion Gap 8, BUN 77 H, Creatinine 4.23 H, Estim Creat Clear Calc 21.51, Est GFR (MDRD) Af Amer 19 L, Est GFR (MDRD) Non-Af 16 L, BUN/Creatinine Ratio 18.2, Glucose 217 H, Calcium 8.0 L, Total Bilirubin 0.40, AST 96 H, ALT 28, Alkaline Phosphatase 74, Total Protein 6.8, Albumin 2.8 L, Globulin 4.0, Albumin/Globulin Ratio 0.7 L, Triglycerides 94, Cholesterol 168, LDL Cholesterol 114, VLDL Cholesterol 19, HDL Cholesterol 35 L 04/07/22 05:40: Hemoglobin A1c 9.1 H 04/07/22 05:40: Troponin I High Sens [id number] H* 04/07/22 05:57: POC Glucose 188 H 04/07/22 07:30: Troponin I High Sens 78027 H* Micro: Microbiology 04/07/22 02:03 Nasal Secretion SARS-CoV-2 & FLU Antigen (Rapid) - Final Influenzae A Cardiology Labs/Tests 04/07/22 02:01: WBC 5.7, RBC 3.36 L, Hgb 9.0 L, Hct 29.4 L, MCV 87.5, MCH 26.8 L, MCHC 30.6 L, Plt Count 214, MPV 11.6, Immature Gran % (Auto) 0.700, Neut % (Auto) 83.2 H, Lymph % (Auto) 4.5 L, Banks % (Auto) 11.3 H, Eos % (Auto) 0.0, Baso % (Auto) 0.3, Absolute Neuts (auto) 4.8, Nucleated RBC % 0 04/07/22 02:01: Sodium 138, Potassium 4.3, Chloride 106, Carbon Dioxide 23.0, Anion Gap 9, BUN 76 H, Creatinine 4.28 H, Est GFR (MDRD) Af Amer 19 L, Est GFR (MDRD) Non-Af 16 L, BUN/Creatinine Ratio 17.8, Glucose 248 H, Calcium 8.6, Total Bilirubin 0.50 04/07/22 02:01: B-Natriuretic Peptide 2759.2 H 04/07/22 02:01: PT 15.3 H, INR 1.2, APTT 35.2 04/07/22 02:01: Magnesium 1.8 04/07/22 02:40: Urine Color Yellow, Urine Clarity Sl. Cloudy, Urine pH 7.0, Ur Specific [place] 1.010, Urine Protein 500 H, Urine Glucose (UA) 100 H, Urine Ketones Negative, Urine Occult Blood 250 H, Urine Nitrite Positive H, Urine Bilirubin Negative, Urine Urobilinogen Normal, Ur Leukocyte Esterase 500 H, Urine RBC 0-5 SEEN, Urine WBC 0-5 SEEN 04/07/22 05:40: WBC 4.7, RBC 3.04 L, Hgb 8.1 L, Hct 26.4 L, MCV 86.8, MCH 26.6 L, MCHC 30.7 L, Plt Count 197, MPV 11.6, Immature Gran % (Auto) 0.600, Neut % (Auto) 85.9 H, Lymph % (Auto) 4.9 L, Banks % (Auto) 8.4, Eos % (Auto) 0.0, Baso % (Auto) 0.2, Absolute Neuts (auto) 4.0, Nucleated RBC % 0 04/07/22 05:40: Sodium 139, Potassium 4.0, Chloride 108 H, Carbon Dioxide 23.0, Anion Gap 8, BUN 77 H, Creatinine 4.23 H, Est GFR (MDRD) Af Amer 19 L, Est GFR (MDRD) Non-Af 16 L, BUN/Creatinine Ratio 18.2, Glucose 217 H, Calcium 8.0 L, Total Bilirubin 0.40, Triglycerides 94, Cholesterol 168, LDL Cholesterol 114, VLDL Cholesterol 19, HDL Cholesterol 35 L 04/07/22 05:40: Hemoglobin A1c 9.1 H Rhythm: Sinus rhythm EKG: As noted above ECHO: 12-28-2020 Interpretation Summary Normal LV size. Mild concentric left ventricular hypertrophy. Left ventricular systolic function is normal. The estimated ejection fraction is 55 %. Stage 1 diastolic dysfunction. Contrast injection was performed. Stress Test: 06/19/2018 Stress echocardiogram: Interpretation Summary The estimated ejection fraction is 65 %. Normal, adequate, treadmill echocardiogram. Negative for ischemia by EKG and echocardiographic criteria. No anginal symptoms noted. Rare PVCs noted. Subtle upsloping ST segment depression at peak exercise which quickly resolved into recovery. Appropriate blood pressure response to exercise hypertensive blood pressure response to exercise. Average exercise capacity for age. Final LVEF of 75%. Test terminated due to target heart rate and dyspnea. Cardiac Cath/PCI: 01-02-2019 PROCEDURE(S) PERFORMED MO44-SPQ/LHC/COR/LV [id number] W OR WO PTCA, SINGLE CORONARY ARTERY [id number] W OR WO PTCA, EACH ADD'L ARTERY, SAME MAJOR CLINICAL PROFILE AND CO-MORBIDITIES Indications: ? ? Stable Known CAD, LV Dysfunction Heart Failure: ? ? NYHA Class: 3, Newly Diagnosed: No, Heart Failure Type: Systolic Stress/Imaging? ? ? Stress/Image Study Performed: No Angina Classification ? ? Anginal Classification w/in 2 Weeks: No symptoms CAD Presentations: ? ? Other: Dyspnea on exertion, acute on chronic CHF. Comorbidities/Risk Factors: Hypertension Dyslipidemia Prior CHF Prior [place] Prior PCI Diabetes Mellitus: Diabetes Therapy: Insulin CONCLUSIONS Global LV systolic dysfunction- Mild LVEF: by LV gram 55 % Normal Left Ventricular End Diastolic Pressure The patient has pulmonary hypertension which is mild. Right heart pressures? - mildly elevated Single vessel CAD of the LAD and DIAG Successful PTCA/TREY mid LAD ISR with a 2.25 x 38 Promus Synergy, post dilated with a 2.5 x 8 NC Balloon; 75%-->0%, no dissection. Successful PTCA/TREY mid LAD with a 2.5 x 28 Promus Synergy, telescoped into previously placed stent (2.25 stent), post dilated proximally with a 3.0 and 3.5 x 8 NC balloon; 85%-->0%, no dissection. Successful PTCA/TREY Proximal DIAG#1 with a 2.25 x 12 Promus Synergy; 75%-->0%, no dissection. Successful PCI with PTCA to the ostial DIAG #1 with a 2.0 x 12 Emerge balloon; 85%-->20%, no dissection.? Would not pursue stenting of ostial DIAG given small vessel, good result and lack of symptoms. RECOMMENDATIONS Highly recommend quitting all tobacco products Follow up with primary placement interviewer Risk factor modification ASA Indefinitley Plavix for at least 12 months Routine post interventional care Refer for Outpatient Cardiac Rehab Manual sheath removal per protocol Follow up with Dr. Franks Successful Mynx Control closure of RFA. Stress test in 4 weeks to eval PDA lesion. DESCRIPTION OF? PROCEDURE The patient arrived to the procedure lab. The risks and benefits of the procedure as well as a full description of our services here and lack of surgical backup were fully explained to the patient and/or their significant other prior to the catheterization. The Timeout was completed, verifying the correct patient and procedure. The patient's procedural site was prepped and draped in the usual fashion. Local anesthetic was given subcutaneously to right groin region with Lidocaine 2%. Using a modified Seldinger technique, arterial access was obtained via the right femoral artery, a 4Fr sheath was inserted. Venous access was obtained via the right femoral vein, a 7Fr sheath was inserted. A 7Fr thermal dilution catheter was inserted and right heart pressures were recorded, it was then advanced to PA position for cardiac outputs. Left Ventriculography was performed in MAYES projection using a 4 Fr. Pigtail catheter. O2 saturations were then obtained. The Thermal dilution catheter was then removed. LV to AO pullback pressures were then recorded. Left Coronary Artery selective angiography was performed in multiple views using a 4 Fr. JL5 catheter. Right Coronary Artery selective angiography was then performed in multiple views using a 4 Fr. 3DRC catheterThe images were reviewed and options discussed. A decision was then made to proceed with an Intervention, IVUS or other adjunct procedure. ? ? Arterial sheath was exchanged for a 6 Fr Sheath. EBU 3.75 Guide catheter was inserted and engaged into the LCA. Angiogram performed pre balloon dilatation. BMW Guide wire was advanced to the LAD. 2.0x12 Emerge Balloon catheter was advanced across lesion in the LAD, mid. PTCA balloon inflated at 6 atms for 12 secs. PTCA balloon inflated at 8 atms for 10 secs. PTCA balloon inflated at 8 atms for 12 secs. PTCA balloon inflated at 8 atms for 9 secs. Angiogram performed post balloon dilatation. BMW #2 Guide wire was inserted as a aaliyah wire into Diagonal #1 2.0 x12 Emerge Balloon catheter was advanced across lesion in the first diagonal, proximal. PTCA balloon inflated at 6 atms for 6 secs. PTCA balloon inflated at 6 atms for 6 secs. 2.25 x 12 Synergy Drug Eluting stent was advanced across the lesion in the first diagonal, proximal. Angiogram performed post stent deployment. 2.25 x 38 synergy Drug Eluting stent was advanced across the lesion in the LAD, mid. 2.5 x 12 NC emerge Balloon catheter was inserted post stent. 2.5 x 28 Drug Eluting stent was advanced across the lesion in the LAD, mid. 3.0 x 8 NC Emerge Balloon catheter was inserted post stent. 3.5 x 8 NC Emerge Balloon catheter was inserted post stent. 2.0 x 12 Emerge Balloon catheter was advanced across lesion in the first diagonal, proximal. PTCA balloon inflated at 6 atms for 32 secs. Angiogram performed post balloon dilatation. ? The arterial sheath was pulled and a Mynx closure device was deployed for hemostasis. The venous sheath was then pulled and manual compression applied until hemostasis achieved CORONARY ANGIOGRAPHY DOMINANCE:? Right Dominant LEFT HEART ASSESSMENT Left Ventricular Ejection Fraction: by LV Gram 55 % Depressed Left Ventricular systolic function LVEDP: 10 mmHg Anterior Hypokinesis - Mild RIGHT HEART ASSESSMENT Thermal CO: 8.5? Thermal CI: 3.54 Ana CO: 10.1? Ana CI: 4.21 PW: 15/9? 7 PA: 32/11? 21 RV: 39/0? 7 RA: 5/4? 2 PVR: 132? SVR: 979 LEFT MAIN: ?Angiographically normal LEFT ANTERIOR DESCENDING ARTERY: PROX LAD: Previously placed stent has an instent 75 % restenosis MID LAD: Previously placed stent has an instent 85 % restenosis DIAGONAL 1: Proximal - 75 % Stenosis CIRCUMFLEX ARTERY: MID CIRC: Previously placed stent is patent RIGHT CORONARY ARTERY: Angiographically normal RT PDA: Mid - Moderate luminal irregularities up to 50% INTERVENTION INFORMATION LESION SITE: LAD (Mid) Lesion Complexity: High/C, lesion at bifurcation: Yes, thrombus present: No, lesion length: 66 mm, culprit lesion: Yes ?Pre Stenosis: 85 % Pre intervention CRISTI flow: 3 PROCEDURE: Drug Eluting Stent with pre and post dilatation Post Stenosis: 0 %? Post intervention CRISTI flow: 3 Lesion Devices: Medtronic 6 Fr EBU3.75 100cm Guide Catheter Jonathan Sci EMERGE MR 2.00x12 BALLOON Pop .014 [employer] [place] Straight 190cm Jonathan Sci Synergy MR TREY 2.25x38 Jonathan Sci NC EMERGE MR 2.50x12 BALLOON Jonathan Sci Synergy MR TREY 2.50x28 Jonathan Sci NC EMERGE MR 3.00x08 BALLOON Jonathan Sci NC EMERGE MR 3.50x08 BALLOON LESION SITE: 1st Diagonal (Proximal) Lesion Complexity: Non-High/Non-C, lesion at bifurcation: Yes, thrombus present: No, lesion length: 12 mm, culprit lesion: No ?Pre Stenosis: 75 %? Pre intervention CRISTI flow: 3 Post Stenosis: 0 %? Post intervention CRISTI flow: 3 Lesion Devices: Medtronic 6 Fr EBU3.75 100cm Guide Catheter Jonathan Sci EMERGE MR 2.00x12 BALLOON Pop .014 [employer] [place] Straight 190cm Jonathan Sci Synergy MR TREY 2.25x12 COMPLICATIONS Radiography Diagnostic Testing: Radiology Impression Chest X-Ray 04/07/22 01:50 IMPRESSION: Normal x-ray examination of the chest. Electronically Signed: Courtney Vazquez MD at 2:48 EST ,
[2022-04-07 10:25] LABS: Partial Thromboplast Time 57.9 Seconds (24.1-36.2)
[2022-04-07] MEDS: Insulin Glargine-YFGN 100 UNIT/ML Pen 20 UNIT SC ×2 (11:14→21:50)
[2022-04-07] MEDS: FLU VACC QS2022-23(6MOS UP)/PF 60 MCG/0.5 ML SYRINGE IM (11:15)
--- NOTE | 2022-04-07 11:45 | CASEMGMT ---
RN CM Face to Face with patient for initial transition planning/care coordination assessment. RN CM introduced self and role at [facility]. Patient lying in bed, alert and oriented. Patient willing to participate in assessment and is able to answer all questions appropriately. Care providers, pharmacy, and demographics verified. Patient wishes to discharge home, denies need for home health at this time. Patient states he has no further needs or concerns at this time. CM to follow for discharge planning needs that may arise. PCP: [facility] Specialists: none Preferred Pharmacy: [facility] Insurance: [employer] Prescription Benefit: yes Living Will/HPOA: yes, son Juan A Sanchez LNOK: son Living Arrangements: Patient lives with son in a single story home with 2 steps to enter. Patient states he is independent at home. Transportation: self, son DME/HHC: Patient denies DME in the home. Patient has had HHC in the past. Patient currently on oxygen. Reviewed DME agencies with patient, agreeable to [employer]. Disposition Plan: Patient to discharge home with family support and follow-up plans in place. Will monitor for home oxygen Taylor ARVIZU, RN, CM
[2022-04-07 12:41] LABS: Troponin-I HS 31726 pg/mL (3.0-78.0)
[2022-04-07 13:05] LABS: Bedside Glucose 246 mg/dL (74-106)
--- NOTE | 2022-04-07 16:08 | PCM.HOSP.N ---
Hospitalist Note Reports that his shortness of breath is slightly better but still present, not having chest pain at the time of evaluation. Does still have edema bilateral lower extremities. Cardiology consulted. Had elevated troponin that seem to be NSTEMI possibly type II brought out by his influenza and hypoxia superimposed on his underlying cardiovascular disease. Echo was ordered and showed EF of 45% with mild segmental systolic dysfunction, severe concentric left ventricular hypertrophy with inability to determine diastolic function or RVSP. May need stress test versus invasive evaluation but his kidney function complicates any potential cardiac catheterization. Presently on heparin drip, metoprolol, Imdur, Plavix, statin
[2022-04-07 16:34] LABS: Partial Thromboplast Time 57.7 Seconds (24.1-36.2)
[2022-04-07 17:05] LABS: Bedside Glucose 367 mg/dL (74-106)
--- NOTE | 2022-04-07 20:25 | NURSING ---
Son called in with medication bottles from home
[2022-04-07] MEDS: Atorvastatin Calcium 80 MG Tablet PO (21:49)
[2022-04-08] VITALS (19 sets, daily range): BP systolic 120–138; BP diastolic 66–81; PULSE 68–80; RESP 16–20; TEMP 36.3–37; O2SAT 95–100
[2022-04-08 02:00] LABS: Bedside Glucose 423 mg/dL (74-106)
[2022-04-08 04:00] LABS: Absolute Lymphocyte Count 0.54 X10^3/uL (0.83-4.51); Absolute Neutrophil Count 4.7 X10^3/uL (2.0-7.7); Basophil# 0.01 X10^3/uL; Basophil% 0.2 % (0-1); Hematocrit 26.7 % (40-54); Hemoglobin 8.1 g/dL (13.0-16.5); Lymphocyte # 0.54 X10^3/ul (0.83-4.51); Mean Corp Hgb Conc 30.3 g/dL (32-36); Mean Corpuscular Hgb 26.9 pg (27.0-32.0); Mean Corpuscular Volume 88.7 fL (80-94); Mean Platelet Vol. 11.8 fl (6.2-12.0); Monocyte# 0.81 X10^3/uL; Monocyte% 13.4 % (0-10); NRBC Flagged by Analyzer 0 % (0-5); Neutrophil # 4.65 X10^3/uL (2.7-7.7); Neutrophil % 77.1 % (47-70); POSITIVE DIFFERENTIAL YES; Platelet Count 199 K/mm3 (150-450); RBC Distribution Width CV 15.2 % (11.6-14.6); RBC Distribution Width SD 49.1 fl (35.1-43.9); Red Blood Count 3.01 M/mm3 (4.6-6.2)
[2022-04-08 04:19] LABS: ALB/GLOB Ratio 0.6 RATIO (0.9-2.4); AST(SGOT) 96 U/L (15-37); Alanine Aminotransfer ALT/SGPT 34 U/L (16-61); Albumin, Serum 2.6 g/dL (3.2-5.0); Alkaline Phosphatase 69 U/L (45-117); Anion Gap 8 (5-15); BUN 98 mg/dL (7-18); Calcium,Total 7.9 mg/dL (8.5-10.1); Chloride 110 mmol/L (98-107); Creatinine, Serum 4.66 mg/dL (0.70-1.30); EST Glomerular Filtration Rate 14 mL/min (>60); Est Glom Filt Rate - Afr Amer 17 mL/min (>60); Estimated Creatinine Clearance 19.53 ml/min; Glucose 250 mg/dL (74-106); Potassium 5.1 mmol/L (3.5-5.1); Protein, Total 6.6 g/dL (6.4-8.2); Sodium Level 140 mmol/L (136-145)
[2022-04-08 04:31] LABS: Differential Indicated SCAN CRITERIA MET
[2022-04-08 04:34] LABS: Differential Comment SCANNED
[2022-04-08] MEDS: HEPARIN/D5w 25,000 UNITS 25,000 UNITS/250 ML IV.SOLN. 10 UNITS CONT INF (04:57)
--- NOTE | 2022-04-08 05:55 | EKG12_ITS ---
Test Reason : MORNING EKG Blood Pressure : / mmHG Vent. Rate : 064 BPM Atrial Rate : 064 BPM P-R Int : 176 ms QRS Dur : 124 ms QT Int : 414 ms P-R-T Axes : 020 020 207 degrees QTc Int : 427 ms Normal sinus rhythm Minimal voltage criteria for LVH, may be normal variant ( Doroteo product ) Inferior infarct , age undetermined Cannot rule out Anterior infarct , age undetermined Abnormal ECG Confirmed by JULIA NUNEZ, JAZMINE ([id number]), greeting card editor ISRAEL MALIK ([id number]) on 04/13/2022 9:51:22 AM Referred By: Confirmed By:JAZMINE DUMONT MD
[2022-04-08] MEDS: Insulin Lispro 100 UNIT/ML INSULN.PEN SC ×3 (07:02→21:41)
[2022-04-08] MEDS: Ipratropium/Albuterol Sulfate 3 ML AMPUL.NEB INHALATION ×4 (07:12→20:30)
[2022-04-08 07:26] LABS: Bedside Glucose 157 mg/dL (74-106)
--- NOTE | 2022-04-08 07:35 | NURSING ---
Emergency documentation per Charge nurse.
--- NOTE | 2022-04-08 07:48 | PCM.PN.HOSP ---
Subjective Subjective Sitting up in chair off O2, breathing is better today, not having chest pain at this time. Swelling improving overall. Has had some diarrhea Objective Data Objective Data Vital Signs: Vital Signs Temp Pulse Resp BP Pulse Ox O2 Del Method O2 Flow Rate 98 F 68 16 120/67 100 Nasal Cannula 2 04/08/22 03:35 04/08/22 07:05 04/08/22 03:35 04/08/22 03:35 04/08/22 03:35 04/08/22 03:35 04/08/22 03:35 Oxygen Flow Rate (L/min) 2 Oxygen Delivery Method Nasal Cannula Weight: 135.3 kg Body Mass Index (BMI) 41.5 Intake & Output: Intake and Output for Last 24 Hours 04/06/22 04/07/22 04/08/22 23:59 23:59 23:59 Intake Total 3855.00 / 3855.00 250 / 250 Output Total 700 / 700 Balance 3855.00 / 3855.00 -450 / -450 Lab / Micro Data Result Diagrams: 04/08/22 03:50 04/08/22 03:50 Labs: Laboratory Results - last 24 hr 04/07/22 05:40: Hemoglobin A1c 9.1 H 04/07/22 07:30: Troponin I High Sens 51970 H* 04/07/22 09:50: APTT 57.9 H 04/07/22 11:13: POC Glucose 246 H 04/07/22 11:50: Troponin I High Sens 10282 H* 04/07/22 15:57: APTT 57.7 H 04/07/22 16:00: POC Glucose 367 H 04/07/22 21:21: APTT 65.0 H 04/07/22 21:45: POC Glucose 423 H 04/08/22 03:50: WBC 6.0, RBC 3.01 L, Hgb 8.1 L, Hct 26.7 L, MCV 88.7, MCH 26.9 L, MCHC 30.3 L, RDW Std Deviation 49.1 H, RDW Coeff of Rajendra 15.2 H, Plt Count 199, MPV 11.8, Immature Gran % (Auto) 0.300, Neut % (Auto) 77.1 H, Lymph % (Auto) 9.0 L, [place] % (Auto) 13.4 H, Eos % (Auto) 0.0, Baso % (Auto) 0.2, Absolute Neuts (auto) 4.7, Absolute Lymphs (auto) 0.54 L, Nucleated RBC % 0, Differential Comment SCANNED 04/08/22 03:50: Sodium 140, Potassium 5.1, Chloride 110 H, Carbon Dioxide 22.0, Anion Gap 8, BUN 98 H, Creatinine 4.66 H, Estim Creat Clear Calc 19.53, Est GFR (MDRD) Af Amer 17 L, Est GFR (MDRD) Non-Af 14 L, BUN/Creatinine Ratio 21.0 H, Glucose 250 H, Calcium 7.9 L, Total Bilirubin 0.20, AST 96 H, ALT 34, Alkaline Phosphatase 69, Total Protein 6.6, Albumin 2.6 L, Globulin 4.0, Albumin/Globulin Ratio 0.6 L 04/08/22 03:50: APTT 61.0 H 04/08/22 07:01: POC Glucose 157 H Micro: Microbiology 04/07/22 02:03 Nasal Secretion SARS-CoV-2 & FLU Antigen (Rapid) - Final Influenzae A Radiography Diagnostic Testing: Radiology Impression Echocardiogram 04/07/22 05:55 Interpretation Summary The study was technically difficult. Contrast injection was performed. Mild segmental systolic dysfunction (see wall motion). The estimated ejection fraction is 45 %. Severe concentric left ventricular hypertrophy. The left atrium is mildly enlarged. Mild focal mitral valve calcification, bileaflet. Trivial mitral valve insufficiency. Trivial tricuspid valve insufficiency. Mild focal aortic valve calcification. Small pericardial effusion. There are no echocardiographic indications of cardiac tamponade. Unable to estimate RV systolic pressure/pulmonary artery pressure due to technically difficult study. Diastolic function is indeterminate. Ordering Physician: Colleen Gann Referring Physician: Joseph Ricks Performed By: Salazar Tsang RCS Physical Exam Const alert and no apparent distress Constitutional Narrative: Oriented HEENT normocephalic and head/scalp atraumatic Eyes Eyes Narrative: EOM grossly intact, anicteric Neck supple Resp normal respiratory effort Resp Narrative: Somewhat diminished at the bases but overall improved airflow Cardio regular rate and regular rhythm GI soft to palpation and non-tender Extremity Extremity Narrative: Mild edema in bilateral lower extremities Neuro moves all extremities Neuro Narrative: No overt focal deficits appreciated Psych Psych Narrative: Cooperative Assessment & Plan Assessment/Plan (1) Non-ST elevation [place] (NSTEMI): (2) Atherosclerotic heart disease of [place] coronary artery without angina pectoris: (3) Influenza A: PLAN: Plan #NSTEMI with history of coronary artery disease with previous PCI Had uptrend initially in troponins but it did since downtrend On heparin drip Cardiology consulted TTE performed: EF 45% with severe concentric left ventricular hypertrophy, diastolic function indeterminate Continue aspirin, isosorbide mononitrate, beta-kane, atorvastatin, Plavix #CORA on CKD likely stage IV Has CKD at baseline and this is worsened Nephrology consulted especially given that he may benefit from cardiac catheterization but this has been held given his worsening kidney function #Type 2 diabetes mellitus Continue glucose checks and sliding scale insulin On Lantus 20 twice daily A1c 9.1 #Influenza A Likely reason for his diarrhea Continue Tamiflu May need gentle hydration if diarrhea continues the want to avoid volume overload Methylpred de-escalated to oral prednisone #DVT ppx: On heparin drip Cesilia New MD Charges/Coding Visit Charges Inpatient E&M: 79300 Subs Hosp L2
[2022-04-08] MEDS: amLODIPine 5 MG Tablet PO (09:34)
[2022-04-08] MEDS: Aspirin 81 MG TAB.CHEW PO (09:34)
[2022-04-08] MEDS: Isosorbide Mononitrate 60 MG Tablet PO (09:34)
[2022-04-08] MEDS: Potassium Chloride Oral Tablet 20 MEQ PO (09:34)
[2022-04-08] MEDS: Oseltamivir Phosphate 30 MG Capsule PO (09:34)
[2022-04-08] MEDS: hydrALAZINE 50 MG Tablet PO ×2 (09:34→21:37)
[2022-04-08] MEDS: hydrALAZINE 25 MG Tablet PO ×2 (09:34→21:37)
[2022-04-08] MEDS: Clopidogrel Bisulfate 75 MG Tablet PO (09:34)
[2022-04-08] MEDS: Metoprolol(XL)Succ 100 MG Tablet PO (09:35)
[2022-04-08] MEDS: Citalopram 10 MG Tablet PO (09:35)
[2022-04-08] MEDS: predniSONE 20 MG Tablet 40 MG PO (10:15)
--- NOTE | 2022-04-08 10:49 | EKG12_ITS ---
Test Reason : AM EKG Blood Pressure : / mmHG Vent. Rate : 070 BPM Atrial Rate : 070 BPM P-R Int : 176 ms QRS Dur : 118 ms QT Int : 406 ms P-R-T Axes : 017 048 158 degrees QTc Int : 438 ms Normal sinus rhythm Inferior infarct , age undetermined Cannot rule out Anterior infarct , age undetermined ST & T wave abnormality, consider lateral ischemia Abnormal ECG Confirmed by JULIA NUNEZ, JAZMINE ([id number]), electronic news gathering editor ISRAEL MALIK ([id number]) on 04/13/2022 9:54:22 AM Referred By: Confirmed By:JAZMINE DUMONT MD
[2022-04-08] MEDS: Insulin Glargine-YFGN 100 UNIT/ML Pen 20 UNIT SC ×2 (10:59→21:41)
--- NOTE | 2022-04-08 11:59 | PN.CARD_ITS ---
Subjective Subjective The patient looks somewhat better and states he feels somewhat better although he states he continues with loose bowel movements/diarrhea. He denies any ongoing chest discomfort or difficulty breathing. Objective Data Vital Signs: Vital Signs Temp Pulse Resp BP Pulse Ox O2 Del Method O2 Flow Rate 98 F 80 16 120/67 100 Nasal Cannula 2 04/08/22 09:23 04/08/22 10:40 04/08/22 09:23 04/08/22 09:35 04/08/22 09:23 04/08/22 09:25 04/08/22 09:27 Oxygen Flow Rate (L/min) 2 Oxygen Delivery Method Nasal Cannula Weight: 298 lb 4.567 oz Body Mass Index (BMI) 41.5 Intake & Output: Intake and Output for Last 24 Hours 04/06/22 04/07/22 04/08/22 23:59 23:59 23:59 Intake Total 3855.00 / 3855.00 650 / 650 Output Total 700 / 700 Balance 3855.00 / 3855.00 -50 / -50 Lab / Micro Data Result Diagrams: 04/08/22 03:50 04/08/22 03:50 Labs: Laboratory Results - last 24 hr 04/07/22 11:13: POC Glucose 246 H 04/07/22 11:50: Troponin I High Sens 41561 H* 04/07/22 15:57: APTT 57.7 H 04/07/22 16:00: POC Glucose 367 H 04/07/22 21:21: APTT 65.0 H 04/07/22 21:45: POC Glucose 423 H 04/08/22 03:50: WBC 6.0, RBC 3.01 L, Hgb 8.1 L, Hct 26.7 L, MCV 88.7, MCH 26.9 L , MCHC 30.3 L, RDW Std Deviation 49.1 H, RDW Coeff of Rajendra 15.2 H, Plt Count 199, MPV 11.8, Immature Gran % (Auto) 0.300, Neut % (Auto) 77.1 H, Lymph % (Auto) 9.0 L, Power % (Auto) 13.4 H, Eos % (Auto) 0.0, Baso % (Auto) 0.2, Absolute Neuts (auto) 4.7, Absolute Lymphs (auto) 0.54 L, Nucleated RBC % 0, Differential Comment SCANNED 04/08/22 03:50: Sodium 140, Potassium 5.1, Chloride 110 H, Carbon Dioxide 22.0, Anion Gap 8, BUN 98 H, Creatinine 4.66 H, Estim Creat Clear Calc 19.53, Est GFR (MDRD) Af Amer 17 L, Est GFR (MDRD) Non-Af 14 L, BUN/Creatinine Ratio 21.0 H, Glucose 250 H, Calcium 7.9 L, Total Bilirubin 0.20, AST 96 H, ALT 34, Alkaline Phosphatase 69, Total Protein 6.6, Albumin 2.6 L, Globulin 4.0, Albumin/Globulin Ratio 0.6 L 04/08/22 03:50: APTT 61.0 H 04/08/22 07:01: POC Glucose 157 H Cardiology Labs/Tests 04/07/22 15:57: APTT 57.7 H 04/07/22 21:21: APTT 65.0 H 04/08/22 03:50: WBC 6.0, RBC 3.01 L, Hgb 8.1 L, Hct 26.7 L, MCV 88.7, MCH 26.9 L , MCHC 30.3 L, Plt Count 199, MPV 11.8, Immature Gran % (Auto) 0.300, Neut % (Auto) 77.1 H, Lymph % (Auto) 9.0 L, Power % (Auto) 13.4 H, Eos % (Auto) 0.0, Baso % (Auto) 0.2, Absolute Neuts (auto) 4.7, Nucleated RBC % 0 04/08/22 03:50: Sodium 140, Potassium 5.1, Chloride 110 H, Carbon Dioxide 22.0, Anion Gap 8, BUN 98 H, Creatinine 4.66 H, Est GFR (MDRD) Af Amer 17 L, Est GFR (MDRD) Non-Af 14 L, BUN/Creatinine Ratio 21.0 H, Glucose 250 H, Calcium 7.9 L, Total Bilirubin 0.20 04/08/22 03:50: APTT 61.0 H Rhythm: Sinus rhythm EKG: Sinus rhythm, inferior NV of indeterminate age cannot be excluded, nonspecific ST/T wave abnormality, compared to the previous ECG there are similar type findings. ECHO: 04-07-2022 Interpretation Summary The study was technically difficult. Contrast injection was performed. ? Mild segmental systolic dysfunction (see wall motion). The estimated ejection fraction is 45 %. Severe concentric left ventricular hypertrophy. The left atrium is mildly enlarged. Mild focal mitral valve calcification, bileaflet. Trivial mitral valve insufficiency. Trivial tricuspid valve insufficiency. Mild focal aortic valve calcification. Small pericardial effusion. There are no echocardiographic indications of cardiac tamponade. Unable to estimate RV systolic pressure/pulmonary artery pressure due to technically difficult study. Diastolic function is indeterminate. Radiography Diagnostic Testing: Radiology Impression Echocardiogram 04/07/22 05:55 Interpretation Summary The study was technically difficult. Contrast injection was performed. Mild segmental systolic dysfunction (see wall motion). The estimated ejection fraction is 45 %. Severe concentric left ventricular hypertrophy. The left atrium is mildly enlarged. Mild focal mitral valve calcification, bileaflet. Trivial mitral valve insufficiency. Trivial tricuspid valve insufficiency. Mild focal aortic valve calcification. Small pericardial effusion. There are no echocardiographic indications of cardiac tamponade. Unable to estimate RV systolic pressure/pulmonary artery pressure due to technically difficult study. Diastolic function is indeterminate. Ordering Physician: Colleen Gann Referring Physician: Joseph Ricks Performed By: Salazar Tsang RCS Physical Exam Const alert, oriented x3 and no apparent distress Orientation / Consciousness: awake HEENT normocephalic, head/scalp atraumatic and hearing grossly normal bilaterally Eyes PERRL, EOMs intact bilaterally, conjunctivae normal and no scleral icterus Neck full ROM, supple and no JVD Carotids: normal carotid upstroke Resp normal respiratory effort and clear to auscultation bilaterally Cardio regular rate, regular rhythm, S1 normal heart sound and S2 normal heart sound GI normal to inspection, nondistended, normoactive bowel sounds Extremity General Extremity: edema bilateral lower extremity Details: mild Skin no rashes or lesions noted Psych mental status grossly normal Assessment & Plan Assessment/Plan (1) Non-ST elevation [place] (NSTEMI): PLAN: The patient has a cardiovascular history as noted. He has abnormal cardiac enzymes, which have decreased, appear compatible with a non-ST segment elevation NV. At the moment the concern is this is a type II event brought out by his influenza A associated hypoxemia superimposed upon his cardiovascular noncardiovascular conditions. His ECG is noted. He has undergone evaluation with a transthoracic echocardiogram. The results are as noted. His previous noninvasive and invasive studies were reviewed. Depending upon his clinical course he may eventually need reevaluation either noninvasively such as a pharmacologic stress nuclear imaging study or invasively such as a diagnostic cardiac catheterization. However, barring an urgent/emergent event, its reasonable to hold on diagnostic cardiac catheterization at this time secondary to his acute on chronic renal sufficiency and the concern of additional IV contrast related nephropathy. He will continue medical management in the interim. This would include agent such as his aspirin, nitrates-isosorbide mononitrate, yken-acqawpkg-xemcqegcjg, lipid-lowering agents-atorvastatin, antihypertensive agent as deemed appropriate, along with his antiplatelet agent-clopidogrel/Plavix. (2) Atherosclerotic heart disease of [place] coronary artery without angina pectoris: PLAN: The patient has a history of CAD. His previous records were reviewed. He will continue medical therapy as noted above. (3) History of coronary artery stent placement: PLAN: The patient has a history of previous PCI. His most recent cardiac catheterization is as noted. He will continue medical management with the medications as noted above with adjustment as deemed appropriate. (4) Left ventricular systolic dysfunction (LVSD): PLAN: The patient's transthoracic echocardiogram does demonstrate mild left ventricular systolic dysfunction. At the present time he will continue medical management. This does include agents such as nitrates, his beta-blockers, afterload reducing agents, etc. Over time consideration will be given as to further noninvasive or invasive cardiovascular evaluation. As noted above invasive cardiovascular evaluation such as diagnostic cardiac catheterization would be placed on hold secondary to the patient's progressive renal insufficiency, barring some unforeseen urgent/emergent cardiovascular event, based upon the concerns of additional IV contrast related nephropathy. (5) Chronic diastolic (congestive) heart failure: PLAN: The patient has history of chronic diastolic mediated CHF. Based upon his transthoracic echocardiogram there may be a component of systolic dysfunction as well. At the moment he does not appear to demonstrate evidence of acute volume overload with respect to ongoing symptoms of orthopnea or PND or physical examination findings from a pulmonary standpoint. He will continue medical therapy. (6) Hyperlipidemia: PLAN: The patient should continue cardiovascular risk factor evaluation and care. This care would include continuation of his lipid-lowering agent with his atorvastatin. (7) Essential (primary) hypertension: PLAN: The patient's blood pressure will need to be monitored. His medications can be adjusted accordingly. (8) Diabetes mellitus: PLAN: The patient has diabetes mellitus. He will continue evaluation care per internal medicine. (9) Acute kidney injury superimposed on chronic kidney disease: PLAN: The patient appears to have acute on chronic renal insufficiency. This may be related to the patient's noncardiovascular issues and diminished intravascular volume and dehydration. His creatinine level has increased. If this is related to decreased intravascular volume based upon his previous and ongoing symptoms including his loose bowel movements then he may need continued volume support orally and via IV. He would need to be monitored for any obvious evidence of volume overload from a pulmonary standpoint. He may need to be considered for further evaluation by nephrology as well. (10) Influenza A: PLAN: The patient has been diagnosed with influenza A. This may be the culprit for his overall clinical course leading to his symptoms and no other objective findings. He is in isolation precaution. He is being treated with antiviral medication-Tamiflu. (11) Hypoxia: PLAN: The patient has a history of hypoxemia. Is thought this is related to his ongoing influenza A event. He continues with O2 support as needed. His hypoxemia may be the culprit for his abnormal cardiac enzymes, etc. as noted above. (12) Near syncope: PLAN: The patient reported the sensation of feeling as if he would lose consciousness but apparently did not. This may be related to his ongoing noncardiac event and decreased intravascular volume, etc. At the same time he is being evaluated from a cardiovascular standpoint with noninvasive studies. His cardiac rhythm is being monitored as well for any obvious changes that would raise concerns of additional cardiovascular issues contributing to his symptoms and findings. Addt'l Comments The patient's case was discussed and reviewed with the patient. This note was generated using a voice recognition system and there may be incorrect words, spelling or punctuation that were not noted when reviewing the office note prior to saving. Procedure Criteria Type of Procedure Procedure Type: Elective Elective Risks - COVID COVID Risk Discussion: The surgeon/proceduralist and patient have discussed in detail the risk of exposure to and/or potential harm posed by the COVID-19 virus with having a surgery/procedure at this time versus the risk of delaying the surgery/procedure. It is not possible to know either the risk of delaying the surgery or procedure or chance of getting an infection with perfect accuracy, but a joint decision was made between the patient and the surgeon/proceduralist to proceed at this time with the scheduled surgery/procedure as indicated on the consent form.
[2022-04-08 13:26] LABS: Bedside Glucose 142 mg/dL (74-106)
[2022-04-08] MEDS: Acetaminophen 325 MG Tablet 650 MG PO (14:00)
[2022-04-08 17:00] LABS: Bedside Glucose 195 mg/dL (74-106)
[2022-04-08] MEDS: Atorvastatin Calcium 80 MG Tablet PO (21:37)
[2022-04-08 23:00] LABS: Bedside Glucose 235 mg/dL (74-106)
[2022-04-09] VITALS (17 sets, daily range): BP systolic 121–159; BP diastolic 64–82; PULSE 65–97; RESP 16–18; TEMP 36.2–36.8; O2SAT 95–98
[2022-04-09] MEDS: HEPARIN/D5w 25,000 UNITS 25,000 UNITS/250 ML IV.SOLN. 10 UNITS CONT INF (04:55)
[2022-04-09 07:05] LABS: Bedside Glucose 131 mg/dL (74-106)
[2022-04-09] MEDS: Ipratropium/Albuterol Sulfate 3 ML AMPUL.NEB INHALATION ×4 (07:24→18:45)
[2022-04-09 07:34] LABS: Absolute Lymphocyte Count 0.69 X10^3/uL (0.83-4.51); Absolute Neutrophil Count 5.5 X10^3/uL (2.0-7.7); Hemoglobin 8.7 g/dL (13.0-16.5); Lymphocyte # 0.69 X10^3/ul (0.83-4.51); Lymphocyte % 10.1 % (19-41); Mean Corp Hgb Conc 31.1 g/dL (32-36); Mean Corpuscular Hgb 27.4 pg (27.0-32.0); Mean Corpuscular Volume 88.3 fL (80-94); Mean Platelet Vol. 11.7 fl (6.2-12.0); Monocyte# 0.57 X10^3/uL; Monocyte% 8.4 % (0-10); NRBC Flagged by Analyzer 0 % (0-5); Neutrophil # 5.52 X10^3/uL (2.7-7.7); Neutrophil % 80.9 % (47-70); Platelet Count 207 K/mm3 (150-450); RBC Distribution Width SD 48.3 fl (35.1-43.9); Red Blood Count 3.17 M/mm3 (4.6-6.2); White Blood Count 6.8 K/mm3 (4.4-11.0)
[2022-04-09 08:10] LABS: ALB/GLOB Ratio 0.7 RATIO (0.9-2.4); AST(SGOT) 78 U/L (15-37); Alanine Aminotransfer ALT/SGPT 38 U/L (16-61); Albumin, Serum 2.7 g/dL (3.2-5.0); Alkaline Phosphatase 67 U/L (45-117); Anion Gap 9 (5-15); BUN 105 mg/dL (7-18); BUN/Creat Ratio 22.9 RATIO (10-20); Chloride 107 mmol/L (98-107); Creatinine, Serum 4.59 mg/dL (0.70-1.30); EST Glomerular Filtration Rate 14 mL/min (>60); Est Glom Filt Rate - Afr Amer 17 mL/min (>60); Estimated Creatinine Clearance 19.82 ml/min; Glucose 139 mg/dL (74-106); Potassium 4.3 mmol/L (3.5-5.1); Protein, Total 6.7 g/dL (6.4-8.2); Sodium Level 137 mmol/L (136-145)
[2022-04-09] MEDS: hydrALAZINE 25 MG Tablet PO ×2 (09:52→20:18)
[2022-04-09] MEDS: amLODIPine 5 MG Tablet PO (09:52)
[2022-04-09] MEDS: Isosorbide Mononitrate 60 MG Tablet PO (09:52)
[2022-04-09] MEDS: Metoprolol(XL)Succ 100 MG Tablet PO (09:52)
[2022-04-09] MEDS: hydrALAZINE 50 MG Tablet PO ×2 (09:52→20:17)
[2022-04-09] MEDS: Clopidogrel Bisulfate 75 MG Tablet PO (09:52)
[2022-04-09] MEDS: Oseltamivir Phosphate 30 MG Capsule PO (09:52)
[2022-04-09] MEDS: Citalopram 10 MG Tablet PO (09:52)
[2022-04-09] MEDS: Potassium Chloride Oral Tablet 20 MEQ PO (09:53)
[2022-04-09] MEDS: predniSONE 20 MG Tablet 40 MG PO (09:53)
[2022-04-09] MEDS: Aspirin 81 MG TAB.CHEW PO (09:53)
[2022-04-09 10:00] LABS: Partial Thromboplast Time 52.6 Seconds (24.1-36.2)
--- NOTE | 2022-04-09 10:20 | PCM.PN.HOSP ---
Subjective Subjective Breathing improving, UOP improving. Not having chest pain at this time. Objective Data Objective Data Vital Signs: Vital Signs Temp Pulse Resp BP Pulse Ox O2 Del Method O2 Flow Rate 97.6 F L 70 18 121/64 H 95 Room Air 0 04/09/22 09:00 04/09/22 09:52 04/09/22 09:00 04/09/22 09:52 04/09/22 09:00 04/09/22 09:57 04/08/22 13:53 Oxygen Flow Rate (L/min) 0 Oxygen Delivery Method Room Air Weight: 135.7 kg Body Mass Index (BMI) 41.5 Intake & Output: Intake and Output for Last 24 Hours 04/07/22 04/08/22 04/09/22 23:59 23:59 23:59 Intake Total 3855.00 / 3855.00 1130 / 1130 239.67 / 239.67 Output Total 700 / 700 700 / 700 Balance 3855.00 / 3855.00 430 / 430 -460.33 / -460.33 Lab / Micro Data Result Diagrams: 04/09/22 06:01 04/09/22 06:01 Labs: Laboratory Results - last 24 hr 04/08/22 10:57: POC Glucose 142 H 04/08/22 16:19: POC Glucose 195 H 04/08/22 21:41: POC Glucose 235 H 04/09/22 06:01: APTT 52.6 H 04/09/22 06:01: WBC 6.8, RBC 3.17 L, Hgb 8.7 L, Hct 28.0 L, MCV 88.3, MCH 27.4, MCHC 31.1 L, RDW Std Deviation 48.3 H, RDW Coeff of Rajendra 15.0 H, Plt Count 207, MPV 11.7, Immature Gran % (Auto) 0.600, Neut % (Auto) 80.9 H, Lymph % (Auto) 10.1 L, [place] % (Auto) 8.4, Eos % (Auto) 0.0, Baso % (Auto) 0.0, Absolute Neuts (auto) 5.5, Absolute Lymphs (auto) 0.69 L, Nucleated RBC % 0 04/09/22 06:01: Sodium 137, Potassium 4.3, Chloride 107, Carbon Dioxide 21.0, Anion Gap 9, BUN 105 H*, Creatinine 4.59 H, Estim Creat Clear Calc 19.82, Est GFR (MDRD) Af Amer 17 L, Est GFR (MDRD) Non-Af 14 L, BUN/Creatinine Ratio 22.9 H, Glucose 139 H, Calcium 8.0 L, Total Bilirubin 0.40, AST 78 H, ALT 38, Alkaline Phosphatase 67, Total Protein 6.7, Albumin 2.7 L, Globulin 4.0, Albumin/Globulin Ratio 0.7 L 04/09/22 06:44: POC Glucose 131 H Micro: Microbiology 04/07/22 02:01 Urine, Clean Catch Urine Culture - Preliminary Culture exhibits no growth. 04/07/22 02:03 Nasal Secretion SARS-CoV-2 & FLU Antigen (Rapid) - Final Influenzae A Physical Exam Const alert and no apparent distress Constitutional Narrative: Oriented HEENT normocephalic and head/scalp atraumatic Eyes Eyes Narrative: EOM grossly intact, anicteric Neck supple Resp normal respiratory effort Resp Narrative: Somewhat diminished at the bases Cardio regular rate and regular rhythm GI soft to palpation and non-tender Extremity Extremity Narrative: Mild edema in bilateral lower extremities Neuro moves all extremities Neuro Narrative: No overt focal deficits appreciated Psych Psych Narrative: Cooperative Assessment & Plan Assessment/Plan (1) Non-ST elevation [place] (NSTEMI): (2) Atherosclerotic heart disease of [place] coronary artery without angina pectoris: (3) Influenza A: PLAN: Plan #NSTEMI with history of coronary artery disease with previous PCI Had uptrend initially in troponins but it did since downtrend On heparin drip Cardiology consulted TTE performed: EF 45% with severe concentric left ventricular hypertrophy, diastolic function indeterminate Continue aspirin, isosorbide mononitrate, beta-kane, atorvastatin, Plavix 04/09: Creatinine has worsened further but urination is begin to improve, nephrology evaluation does not want to do any fluids or further Lasix, suspect that his body is now beginning to compensate. Discussed with nephrology, if he does need cardiac evaluation and intervention renal replacement therapy can be coordinated if needed. Remains on heparin drip, cont med management at this time #CORA on CKD likely stage IV Has CKD at baseline and this is worsened Nephrology consulted especially given that he may benefit from cardiac catheterization but this has been held given his worsening kidney function 04/09: Renal ultrasound ordered, nephrology following, hold Lasix and fluids, hold losartan. Discussed with nephrology, urine output improving and suspect that he will begin to compensate. Continue to monitor BMP #Type 2 diabetes mellitus Continue glucose checks and sliding scale insulin On Lantus 20 twice daily A1c 9.1 #Influenza A Likely reason for his diarrhea Continue Tamiflu May need gentle hydration if diarrhea continues the want to avoid volume overload Methylpred de-escalated to oral prednisone #DVT ppx: On heparin drip Cesilia New MD Charges/Coding Visit Charges Inpatient E&M: 80475 Subs Hosp L2
--- NOTE | 2022-04-09 10:41 | CON.PCM.RE_ITS ---
Assessment & Plan Assessment/Plan (1) Acute kidney injury superimposed on chronic kidney disease: (2) Non-ST elevation [place] (NSTEMI): (3) Influenza A: PLAN: Plan Acute kidney injury and chronic kidney disease -Baseline serum creatinine is around 2.7 mg/dL, suspect this is secondary to hypertensive, diabetic renal disease -Serum creatinine peaked at 4.6 mg/dL and plateauing at 4.5 mg/dL -His diuretics and losartan has been on hold -No uremic symptoms -Is making more urine right now -Suspect acute insult Secondary to prerenal azotemia Plan -We discussed his current renal function and particularly the high likelihood of further renal progression and the need for renal replacement therapy, noted of cardiology's input. We will coordinate optimal time for heart catheterization should that be needed -Continue to hold Lasix and losartan -Check urinary indices including urine protein creatinine ratio -Check uric acid, CPK -Will obtain renal ultrasound -Renal panel in the morning, hopefully we will see further improvement in renal function over next 24 to 40 hours Thank you please call [phone] with any concerns HPI Consult Data Date of Consult: 04/09/22 HPI Narrative Reason for Consultation: Acute kidney injury and chronic kidney disease HPI Narrative: YOSEPH PERSAUD, is a 51 M with underlying history of hypertension, dyslipidemia, diabetes, morbid obesity in addition to coronary disease status post multiple PCI and chronic kidney disease who presents to the hospital due to weakness. Patient found to have influenza a, also non-STEMI. Patient's been evaluated by cardiology team, echocardiogram shows EF of 45%. Nephrology is consulted due to acute kidney injury on chronic kidney disease On my encounter with patient his baseline serum creatinine back in June 2021 was at 2.7 mg/dL On presentation his serum creatinine was at 4.3 mg/dL peaked at 4.6 and leveling off of 4.5 mg/dL today. Patient states that his urine output is picked up over the past 24 hours He denies following with nephrology as outpatient. He denies use of NSAIDs [facility] Medical History Atherosclerotic heart disease of [place] coronary artery without angina pectoris Chronic diastolic (congestive) heart failure Chronic kidney disease Depression Diabetes mellitus with diabetic polyneuropathy Diabetes mellitus, type II Diabetic infection of left foot Essential (primary) hypertension History of non-ST elevation myocardial infarction (NSTEMI) (03/15/20) History of stress test Hyperlipidemia Hypertension Infected sebaceous cyst Ischemic cardiomyopathy (06/2013) Non-pressure 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 of bone Non-pressure chronic ulcer of other part of left foot with fat layer exposed Obesity Paresthesias Partial nontraumatic amputation of right foot Pneumonia due to COVID-19 virus (03/14/20) Type 2 diabetes mellitus with diabetic neuropathy, unspecified Type 2 diabetes mellitus with foot ulcer Venous insufficiency Home Medications aspirin 81 mg chewable tablet 81 mg PO DAILY@0800 heart 09/28/14 [History Last Taken 12/20/18] atorvastatin 80 mg tablet 80 mg PO QHS cholesterol 30 days #30 tabs 06/21/21 [Rx Last Taken Unknown] clopidogrel 75 mg tablet 75 mg PO DAILY Blood Thinner 30 days #30 tabs 06/21/21 [Rx Last Taken Unknown] furosemide 40 mg tablet 40 mg PO DAILY 7 days #7 tabs 06/21/21 [Rx Last Taken Unknown] insulin glargine 100 unit/mL (3 mL) subcutaneous pen (Lantus Solostar U-100 Insulin) 20 unit (0.2 mL) subcut BID Diabetes 30 days #12 mL 06/21/21 [Rx Last Taken Unknown] losartan 25 mg tablet 25 mg PO DAILY blood pressure 01/09/22 [History Last Taken Unknown] metoprolol succinate 100 mg tablet,extended release 24 hr 100 mg PO DAILY blood pressure 01/09/22 [History Last Taken Unknown] isosorbide mononitrate 60 mg tablet,extended release 24 hr 60 mg PO DAILY Heart 30 days #30 tabs 01/12/22 [Rx Last Taken Unknown] ezetimibe 10 mg tablet 10 mg PO DAILY cholesterol 04/07/22 [History Last Taken Unknown] Allergy/AdvReac Type Severity Reaction Status Date / Time lisinopril AdvReac Intermediate Cough Verified 04/07/22 01:49 losartan AdvReac Intermediate cough Verified 04/07/22 01:49 Family History Father , Age 57 from [place] Myocardial infarction CAD (coronary artery disease) Sudden cardiac Mother Sick sinus syndrome Sister Diabetes Surgical History H/O cardiac catheterization History of coronary artery stent placement (01/02/19) Social History household members: none Smoking Status: Never smoker alcohol intake: current alcohol intake frequency: holidays/special occasions only substance use type: does not use caffeine: Yes Type: carbonated beverages Number of servings: 2 ROS ROS Narrative 12 review of system is negative other than stated above Physical Exam Const Constitutional Narrative: Patient is alert and responsive sitting at side of bed in no acute distress Normocephalic atraumatic extra muscles intact Oral mucosa is moist S1-S2 regular Breath sounds are equal Positive for truncal obesity +2 dependent edema in lower extremity No focal deficit Normal mood and affect Lab / Micro Data Result Diagrams: 04/09/22 06:01 04/09/22 06:01 Labs: Laboratory Results - last 24 hr 04/08/22 10:57: POC Glucose 142 H 04/08/22 16:19: POC Glucose 195 H 04/08/22 21:41: POC Glucose 235 H 04/09/22 06:01: APTT 52.6 H 04/09/22 06:01: WBC 6.8, RBC 3.17 L, Hgb 8.7 L, Hct 28.0 L, MCV 88.3, MCH 27.4, MCHC 31.1 L, RDW Std Deviation 48.3 H, RDW Coeff of Rajendra 15.0 H, Plt Count 207, MPV 11.7, Immature Gran % (Auto) 0.600, Neut % (Auto) 80.9 H, Lymph % (Auto) 10.1 L, [place] % (Auto) 8.4, Eos % (Auto) 0.0, Baso % (Auto) 0.0, Absolute Neuts (auto) 5.5, Absolute Lymphs (auto) 0.69 L, Nucleated RBC % 0 04/09/22 06:01: Sodium 137, Potassium 4.3, Chloride 107, Carbon Dioxide 21.0, Anion Gap 9, BUN 105 H*, Creatinine 4.59 H, Estim Creat Clear Calc 19.82, Est GFR (MDRD) Af Amer 17 L, Est GFR (MDRD) Non-Af 14 L, BUN/Creatinine Ratio 22.9 H , Glucose 139 H, Calcium 8.0 L, Total Bilirubin 0.40, AST 78 H, ALT 38, Alkaline Phosphatase 67, Total Protein 6.7, Albumin 2.7 L, Globulin 4.0, Albumin/Globulin Ratio 0.7 L 04/09/22 06:44: POC Glucose 131 H Micro: Microbiology 04/07/22 02:01 Urine, Clean Catch Urine Culture - Preliminary Culture exhibits no growth.
[2022-04-09] MEDS: Insulin Glargine-YFGN 100 UNIT/ML Pen 20 UNIT SC ×2 (11:05→20:17)
[2022-04-09 11:26] LABS: CPK Total, Creatine Kinase 2316 U/L (39-308); Uric Acid 12.5 mg/dL (3.5-7.2)
[2022-04-09 11:45] LABS: Bedside Glucose 143 mg/dL (74-106)
--- NOTE | 2022-04-09 12:19 | PCM.PN.CARD ---
Subjective Subjective The patient appears to be awake and alert today. He denies any ongoing chest discomfort or worsening shortness of breath or dyspnea. He does appear to have an element of lower extremity peripheral pitting edema. He states he has continued with loose bowel movements. Objective Data Vital Signs: Vital Signs Temp Pulse Resp BP Pulse Ox O2 Del Method O2 Flow Rate 97.6 F L 89 17 121/64 H 95 Room Air 0 04/09/22 09:00 04/09/22 11:13 04/09/22 11:13 04/09/22 09:52 04/09/22 09:00 04/09/22 09:57 04/08/22 13:53 Oxygen Flow Rate (L/min) 0 Oxygen Delivery Method Room Air Weight: 299 lb 2.676 oz Body Mass Index (BMI) 41.5 Intake & Output: Intake and Output for Last 24 Hours 04/07/22 04/08/22 04/09/22 23:59 23:59 23:59 Intake Total 3855.00 / 3855.00 1130 / 1130 619.67 / 619.67 Output Total 700 / 700 700 / 700 Balance 3855.00 / 3855.00 430 / 430 -80.33 / -80.33 Lab / Micro Data Result Diagrams: 04/09/22 06:01 04/09/22 06:01 Labs: Laboratory Results - last 24 hr 04/08/22 10:57: POC Glucose 142 H 04/08/22 16:19: POC Glucose 195 H 04/08/22 21:41: POC Glucose 235 H 04/09/22 06:01: APTT 52.6 H 04/09/22 06:01: WBC 6.8, RBC 3.17 L, Hgb 8.7 L, Hct 28.0 L, MCV 88.3, MCH 27.4, MCHC 31.1 L, RDW Std Deviation 48.3 H, RDW Coeff of Rajendra 15.0 H, Plt Count 207, MPV 11.7, Immature Gran % (Auto) 0.600, Neut % (Auto) 80.9 H, Lymph % (Auto) 10.1 L, [place] % (Auto) 8.4, Eos % (Auto) 0.0, Baso % (Auto) 0.0, Absolute Neuts (auto) 5.5, Absolute Lymphs (auto) 0.69 L, Nucleated RBC % 0 04/09/22 06:01: Sodium 137, Potassium 4.3, Chloride 107, Carbon Dioxide 21.0, Anion Gap 9, BUN 105 H*, Creatinine 4.59 H, Estim Creat Clear Calc 19.82, Est GFR (MDRD) Af Amer 17 L, Est GFR (MDRD) Non-Af 14 L, BUN/Creatinine Ratio 22.9 H, Glucose 139 H, Calcium 8.0 L, Total Bilirubin 0.40, AST 78 H, ALT 38, Alkaline Phosphatase 67, Total Protein 6.7, Albumin 2.7 L, Globulin 4.0, Albumin/Globulin Ratio 0.7 L 04/09/22 06:01: Uric Acid 12.5 H, Total Creatine Kinase 2316 H 04/09/22 06:44: POC Glucose 131 H 04/09/22 11:03: POC Glucose 143 H Micro: Microbiology 04/07/22 02:01 Urine, Clean Catch Urine Culture - Final Mixed Gram Positive Organisms Cardiology Labs/Tests 04/09/22 06:01: APTT 52.6 H 04/09/22 06:01: WBC 6.8, RBC 3.17 L, Hgb 8.7 L, Hct 28.0 L, MCV 88.3, MCH 27.4, MCHC 31.1 L, Plt Count 207, MPV 11.7, Immature Gran % (Auto) 0.600, Neut % (Auto) 80.9 H, Lymph % (Auto) 10.1 L, [place] % (Auto) 8.4, Eos % (Auto) 0.0, Baso % (Auto) 0.0, Absolute Neuts (auto) 5.5, Nucleated RBC % 0 04/09/22 06:01: Sodium 137, Potassium 4.3, Chloride 107, Carbon Dioxide 21.0, Anion Gap 9, BUN 105 H*, Creatinine 4.59 H, Est GFR (MDRD) Af Amer 17 L, Est GFR (MDRD) Non-Af 14 L, BUN/Creatinine Ratio 22.9 H, Glucose 139 H, Calcium 8.0 L, Total Bilirubin 0.40 04/09/22 06:01: Uric Acid 12.5 H Rhythm: Sinus rhythm; 1 episode of nonsustained irregular wide-complex tachycardia approximately 6-8 beats in duration Physical Exam Const alert, oriented x3 and no apparent distress Orientation / Consciousness: awake HEENT normocephalic, head/scalp atraumatic and hearing grossly normal bilaterally Eyes PERRL, EOMs intact bilaterally, conjunctivae normal and no scleral icterus Neck full ROM, supple and no JVD Carotids: normal carotid upstroke Resp normal respiratory effort and clear to auscultation bilaterally Cardio regular rate, regular rhythm, S1 normal heart sound and S2 normal heart sound GI normal to inspection, nondistended, normoactive bowel sounds Extremity General Extremity: edema bilateral lower extremity Details: mild Skin no rashes or lesions noted Psych mental status grossly normal Assessment & Plan Assessment/Plan (1) Non-ST elevation [place] (NSTEMI): PLAN: The patient has a cardiovascular history as noted. He has abnormal cardiac enzymes, which have decreased, appear compatible with a non-ST segment elevation [place]. At the moment the concern is this is a type II event brought out by his influenza A associated hypoxemia superimposed upon his cardiovascular noncardiovascular conditions. He has undergone evaluation with a transthoracic echocardiogram. The results are as noted. His previous noninvasive and invasive studies were reviewed. Depending upon his clinical course he may eventually need reevaluation either noninvasively such as a pharmacologic stress nuclear imaging study or invasively such as a diagnostic cardiac catheterization. However, it may be reasonable to continue to hold on these procedures until the patient appears to be improved from his noncardiovascular issues. However, barring an urgent/emergent event, its reasonable to hold on diagnostic cardiac catheterization at this time secondary to his acute on chronic renal sufficiency and the concern of additional IV contrast related nephropathy. He will continue medical management in the interim. This would include agent such as his aspirin, nitrates-isosorbide mononitrate, bhfb-ipnwtfka-gjflpuogii, lipid-lowering agents-atorvastatin, antihypertensive agent as deemed appropriate, along with his antiplatelet agent-clopidogrel/Plavix. (2) Atherosclerotic heart disease of [place] coronary artery without angina pectoris: PLAN: The patient has a history of CAD. His previous records were reviewed. He will continue medical therapy as noted above. (3) History of coronary artery stent placement: PLAN: The patient has a history of previous PCI. His most recent cardiac catheterization is as noted. He will continue medical management with the medications as noted above with adjustment as deemed appropriate. (4) Left ventricular systolic dysfunction (LVSD): PLAN: The patient's transthoracic echocardiogram does demonstrate mild left ventricular systolic dysfunction. At the present time he will continue medical management. This does include agents such as nitrates, beta-blockers, and afterload reducing agents-taking into consideration his renal dysfunction, thus leading to agents such as nitrates/hydralazine therapy. This does include agents such as nitrates, his beta-blockers, afterload reducing agents, etc. Over time consideration will be given as to further noninvasive or invasive cardiovascular evaluation. As noted above invasive cardiovascular evaluation such as diagnostic cardiac catheterization would be placed on hold secondary to the patient's progressive renal insufficiency, barring some unforeseen urgent/emergent cardiovascular event, based upon the concerns of additional IV contrast related nephropathy. (5) Chronic diastolic (congestive) heart failure: PLAN: The patient has history of chronic diastolic mediated CHF. Based upon his transthoracic echocardiogram there may be a component of systolic dysfunction as well. At the moment he does not appear to demonstrate evidence of acute volume overload with respect to ongoing symptoms of orthopnea or PND or physical examination findings from a pulmonary standpoint. He will continue medical therapy with adjustment as needed taking into consideration his comorbidities and his renal dysfunction.. (6) Hyperlipidemia: PLAN: The patient should continue cardiovascular risk factor evaluation and care. This care would include continuation of his lipid-lowering agent with his atorvastatin. (7) Essential (primary) hypertension: PLAN: The patient's blood pressure will need to be monitored. His medications can be adjusted accordingly. (8) Diabetes mellitus: PLAN: The patient has diabetes mellitus. He will continue evaluation care per internal medicine. (9) Acute kidney injury superimposed on chronic kidney disease: PLAN: The patient appears to have acute on chronic renal insufficiency. He has been evaluated by nephrology. Nephrology consultation is most appreciated. At the moment it appears the plan is to continue to monitor the patient with respect to his renal function and depending upon his renal function he may need to be considered for future dialysis therapy. (10) Influenza A: PLAN: The patient has been diagnosed with influenza A. This may be the culprit for his overall clinical course leading to his symptoms and no other objective findings. He continues on Tamiflu therapy. (11) Hypoxia: PLAN: The patient has a history of hypoxemia. This may have been secondary to his influenza a event. He continues with O2 support as needed. His hypoxemia may be the culprit for his abnormal cardiac enzymes, etc., superimposed upon his other cardiovascular conditions, as noted above. (12) Near syncope: PLAN: The patient reported the sensation of feeling as if he would lose consciousness but apparently did not. This may be related to his ongoing noncardiac event and decreased intravascular volume, etc. Addt'l Comments The patient's case has been discussed and reviewed with the patient. This note was generated using a voice recognition system and there may be incorrect words, spelling or punctuation that were not noted when reviewing the office note prior to saving. Procedure Criteria Type of Procedure Procedure Type: Elective Elective Risks - COVID COVID Risk Discussion: The surgeon/proceduralist and patient have discussed in detail the risk of exposure to and/or potential harm posed by the COVID-19 virus with having a surgery/procedure at this time versus the risk of delaying the surgery/procedure. It is not possible to know either the risk of delaying the surgery or procedure or chance of getting an infection with perfect accuracy, but a joint decision was made between the patient and the surgeon/proceduralist to proceed at this time with the scheduled surgery/procedure as indicated on the consent form.
[2022-04-09 12:29] LABS: Protein, Urine (Random) 163.9 mg/dL (<11.9); Protein:Creat Ratio 1639 mg/g CRE (0-200); Urine Sodium 39 mmol/L (Not Establ.)
[2022-04-09] MEDS: Insulin Lispro 100 UNIT/ML INSULN.PEN SC ×2 (16:38→20:16)
[2022-04-09 17:50] LABS: Bedside Glucose 194 mg/dL (74-106)
[2022-04-09] MEDS: Atorvastatin Calcium 80 MG Tablet PO (20:17)
[2022-04-09 22:35] LABS: Bedside Glucose 250 mg/dL (74-106)
[2022-04-10] VITALS (14 sets, daily range): BP systolic 125–149; BP diastolic 68–89; PULSE 70–85; RESP 16–20; TEMP 36.5–36.8; O2SAT 94–97
[2022-04-10 00:02] LABS: Partial Thromboplast Time 48.7 Seconds (24.1-36.2)
[2022-04-10] MEDS: HEPARIN/D5w 25,000 UNITS 25,000 UNITS/250 ML IV.SOLN. 12 UNITS CONT INF (04:04)
[2022-04-10] MEDS: Insulin Lispro 100 UNIT/ML INSULN.PEN SC ×4 (06:18→21:01)
[2022-04-10 06:40] LABS: Bedside Glucose 158 mg/dL (74-106)
[2022-04-10] MEDS: Ipratropium/Albuterol Sulfate 3 ML AMPUL.NEB INHALATION ×3 (06:40→14:59)
[2022-04-10 06:47] LABS: Absolute Lymphocyte Count 0.71 X10^3/uL (0.83-4.51); Absolute Neutrophil Count 6.9 X10^3/uL (2.0-7.7); Basophil# 0.01 X10^3/uL; Basophil% 0.1 % (0-1); Hematocrit 28.4 % (40-54); Hemoglobin 8.7 g/dL (13.0-16.5); Lymphocyte # 0.71 X10^3/ul (0.83-4.51); Lymphocyte % 8.5 % (19-41); Mean Corp Hgb Conc 30.6 g/dL (32-36); Mean Corpuscular Hgb 26.8 pg (27.0-32.0); Mean Corpuscular Volume 87.4 fL (80-94); Mean Platelet Vol. 11.8 fl (6.2-12.0); Monocyte# 0.66 X10^3/uL; Monocyte% 7.9 % (0-10); NRBC Flagged by Analyzer 0 % (0-5); Neutrophil # 6.94 X10^3/uL (2.7-7.7); Neutrophil % 82.8 % (47-70); Platelet Count 208 K/mm3 (150-450); RBC Distribution Width CV 15.1 % (11.6-14.6); RBC Distribution Width SD 48.2 fl (35.1-43.9); Red Blood Count 3.25 M/mm3 (4.6-6.2); White Blood Count 8.4 K/mm3 (4.4-11.0)
[2022-04-10 06:56] LABS: Partial Thromboplast Time 53.4 Seconds (24.1-36.2)
[2022-04-10 07:04] LABS: ALB/GLOB Ratio 0.7 RATIO (0.9-2.4); AST(SGOT) 53 U/L (15-37); Alanine Aminotransfer ALT/SGPT 36 U/L (16-61); Albumin, Serum 2.6 g/dL (3.2-5.0); Alkaline Phosphatase 62 U/L (45-117); Anion Gap 7 (5-15); BUN 100 mg/dL (7-18); BUN/Creat Ratio 23.4 RATIO (10-20); Calcium,Total 7.7 mg/dL (8.5-10.1); Chloride 109 mmol/L (98-107); Creatinine, Serum 4.28 mg/dL (0.70-1.30); EST Glomerular Filtration Rate 16 mL/min (>60); Est Glom Filt Rate - Afr Amer 19 mL/min (>60); Estimated Creatinine Clearance 21.26 ml/min; Globulin 3.9 g/dL (2.2-4.2); Glucose 158 mg/dL (74-106); Potassium 4.1 mmol/L (3.5-5.1); Protein, Total 6.5 g/dL (6.4-8.2); Sodium Level 137 mmol/L (136-145)
[2022-04-10] MEDS: hydrALAZINE 50 MG Tablet PO ×2 (08:35→21:00)
[2022-04-10] MEDS: Oseltamivir Phosphate 30 MG Capsule PO (08:36)
[2022-04-10] MEDS: Isosorbide Mononitrate 60 MG Tablet PO (08:36)
[2022-04-10] MEDS: Metoprolol(XL)Succ 100 MG Tablet PO (08:36)
[2022-04-10] MEDS: Citalopram 10 MG Tablet PO (08:36)
[2022-04-10] MEDS: amLODIPine 5 MG Tablet PO (08:36)
[2022-04-10] MEDS: predniSONE 20 MG Tablet 40 MG PO (08:36)
[2022-04-10] MEDS: Clopidogrel Bisulfate 75 MG Tablet PO (08:37)
[2022-04-10] MEDS: hydrALAZINE 25 MG Tablet PO ×2 (08:37→21:00)
[2022-04-10] MEDS: Insulin Glargine-YFGN 100 UNIT/ML Pen 20 UNIT SC ×2 (08:37→21:01)
[2022-04-10] MEDS: Aspirin 81 MG TAB.CHEW PO (08:37)
--- NOTE | 2022-04-10 09:30 | PN.HOSP_ITS ---
Subjective Subjective Feels well. No chest pain. No shortness of breath. Objective Data Objective Data Vital Signs: Vital Signs Temp Pulse Resp BP Pulse Ox O2 Del Method O2 Flow Rate 36.7 C 71 20 H 134/77 H 95 Room Air 0 04/10/22 03:00 04/10/22 08:37 04/10/22 06:40 04/10/22 08:37 04/10/22 06:40 04/10/22 06:40 04/08/22 13:53 Oxygen Flow Rate (L/min) 0 Oxygen Delivery Method Room Air Weight: 136.6 kg Body Mass Index (BMI) 41.5 Intake & Output: Intake and Output for Last 24 Hours 04/08/22 04/09/22 04/10/22 23:59 23:59 23:59 Intake Total 1130 / 1130 1227.50 / 1227.50 152.88 / 152.88 Output Total 700 / 700 700 / 1225 1050 / 1050 Balance 430 / 430 527.50 / 2.50 -897.12 / -897.12 Lab / Micro Data Result Diagrams: 04/10/22 06:40 04/10/22 06:40 Labs: Laboratory Results - last 24 hr 04/09/22 06:01: APTT 52.6 H 04/09/22 06:01: Uric Acid 12.5 H, Total Creatine Kinase 2316 H 04/09/22 11:03: POC Glucose 143 H 04/09/22 11:54: U Random Total Protein 163.9 H, Ur Random Sodium 39, Urine Creatinine 100.00, Protein/Creatinin Ratio 1639 H 04/09/22 16:37: POC Glucose 194 H 04/09/22 20:15: POC Glucose 250 H 04/09/22 23:33: APTT 48.7 H 04/10/22 06:17: POC Glucose 158 H 04/10/22 06:40: WBC 8.4, RBC 3.25 L, Hgb 8.7 L, Hct 28.4 L, MCV 87.4, MCH 26.8 L , MCHC 30.6 L, RDW Std Deviation 48.2 H, RDW Coeff of Rajendra 15.1 H, Plt Count 208, MPV 11.8, Immature Gran % (Auto) 0.700, Neut % (Auto) 82.8 H, Lymph % (Auto) 8.5 L, [place] % (Auto) 7.9, Eos % (Auto) 0.0, Baso % (Auto) 0.1, Absolute Neuts (auto) 6.9, Absolute Lymphs (auto) 0.71 L, Nucleated RBC % 0 04/10/22 06:40: Sodium 137, Potassium 4.1, Chloride 109 H, Carbon Dioxide 21.0, Anion Gap 7, BUN 100 H, Creatinine 4.28 H, Estim Creat Clear Calc 21.26, Est GFR (MDRD) Af Amer 19 L, Est GFR (MDRD) Non-Af 16 L, BUN/Creatinine Ratio 23.4 H, Gl ucose 158 H, Calcium 7.7 L, Total Bilirubin 0.30, AST 53 H, ALT 36, Alkaline Phosphatase 62, Total Protein 6.5, Albumin 2.6 L, Globulin 3.9, Albumin/Globulin Ratio 0.7 L 04/10/22 06:40: APTT 53.4 H Micro: Microbiology 04/07/22 02:01 Urine, Clean Catch Urine Culture - Final Mixed Gram Positive Organisms 04/07/22 02:03 Nasal Secretion SARS-CoV-2 & FLU Antigen (Rapid) - Final Influenzae A Physical Exam Const alert and no apparent distress HEENT head/scalp atraumatic and moist oral mucous membranes Resp normal respiratory effort, no retractions, no use of accessory muscles and clear to auscultation bilaterally Cardio regular rate, regular rhythm, S1 normal heart sound and S2 normal heart sound GI normal to inspection, nondistended, normoactive bowel sounds, soft to palpation and non-tender Extremity normal to inspection Psych affect normal Assessment & Plan Assessment/Plan (1) Non-ST elevation [place] (NSTEMI): PLAN: #NSTEMI with history of coronary artery disease with previous PCI Had uptrend initially in troponins but it did since downtrend On heparin drip Cardiology consulted TTE performed: EF 45% with severe concentric left ventricular hypertrophy, diastolic function indeterminate Continue aspirin, isosorbide mononitrate, beta-kane, atorvastatin, Plavix 04/09: Creatinine has worsened further but urination is begin to improve, nephrology evaluation does not want to do any fluids or further Lasix, suspect that his body is now beginning to compensate. Discussed with nephrology, if he does need cardiac evaluation and intervention renal replacement therapy can be coordinated if needed. Remains on heparin drip, cont med management at this time Stress test ordered. To be performed on third. (2) CORA (acute kidney injury): PLAN: #CORA on CKD likely stage IV Has CKD at baseline and this is worsened Nephrology consulted especially given that he may benefit from cardiac catheterization but this has been held given his worsening kidney function 04/09: Renal ultrasound ordered, nephrology following, hold Lasix and fluids, hold losartan. Discussed with nephrology, urine output improving and suspect that he will begin to compensate. Continue to monitor BMP (3) Influenza A: PLAN: #Influenza A Likely reason for his diarrhea Continue Tamiflu May need gentle hydration if diarrhea continues the want to avoid volume overload Methylpred de-escalated to oral prednisone PLAN: Plan Chronic conditions: * Type 2 diabetes mellitus: Continue glucose checks and sliding scale insulin.On Lantus 20 twice daily. A1c 9.1 #DVT ppx: On heparin drip Charges/Coding Visit Charges Inpatient E&M: 15850 Subs Hosp L2
--- NOTE | 2022-04-10 11:10 | PN.CARD_ITS ---
Subjective Subjective The patient states he feels good today. He believes his breathing has improved. He states he is no longer having his loose bowel movements/diarrhea. Objective Data Vital Signs: Vital Signs Temp Pulse Resp BP Pulse Ox O2 Del Method O2 Flow Rate 98.2 F 71 16 134/77 H 96 Room Air 0 04/10/22 09:00 04/10/22 09:00 04/10/22 09:00 04/10/22 09:00 04/10/22 09:00 04/10/22 09:00 04/08/22 13:53 Oxygen Flow Rate (L/min) 0 Oxygen Delivery Method Room Air Weight: 301 lb 2.423 oz Body Mass Index (BMI) 41.5 Intake & Output: Intake and Output for Last 24 Hours 04/08/22 04/09/22 04/10/22 23:59 23:59 23:59 Intake Total 1130 / 1130 1227.50 / 1227.50 152.88 / 152.88 Output Total 700 / 700 700 / 1225 1050 / 1050 Balance 430 / 430 527.50 / 2.50 -897.12 / -897.12 Lab / Micro Data Result Diagrams: 04/10/22 06:40 04/10/22 06:40 Labs: Laboratory Results - last 24 hr 04/09/22 06:01: Uric Acid 12.5 H, Total Creatine Kinase 2316 H 04/09/22 11:03: POC Glucose 143 H 04/09/22 11:54: U Random Total Protein 163.9 H, Ur Random Sodium 39, Urine Creatinine 100.00, Protein/Creatinin Ratio 1639 H 04/09/22 16:37: POC Glucose 194 H 04/09/22 20:15: POC Glucose 250 H 04/09/22 23:33: APTT 48.7 H 04/10/22 06:17: POC Glucose 158 H 04/10/22 06:40: WBC 8.4, RBC 3.25 L, Hgb 8.7 L, Hct 28.4 L, MCV 87.4, MCH 26.8 L , MCHC 30.6 L, RDW Std Deviation 48.2 H, RDW Coeff of Rajendra 15.1 H, Plt Count 208, MPV 11.8, Immature Gran % (Auto) 0.700, Neut % (Auto) 82.8 H, Lymph % (Auto) 8.5 L, [place] % (Auto) 7.9, Eos % (Auto) 0.0, Baso % (Auto) 0.1, Absolute Neuts (auto) 6.9, Absolute Lymphs (auto) 0.71 L, Nucleated RBC % 0 04/10/22 06:40: Sodium 137, Potassium 4.1, Chloride 109 H, Carbon Dioxide 21.0, Anion Gap 7, BUN 100 H, Creatinine 4.28 H, Estim Creat Clear Calc 21.26, Est GFR (MDRD) Af Amer 19 L, Est GFR (MDRD) Non-Af 16 L, BUN/Creatinine Ratio 23.4 H, Glucose 158 H, Calcium 7.7 L, Total Bilirubin 0.30, AST 53 H, ALT 36, Alkaline Phosphatase 62, Total Protein 6.5, Albumin 2.6 L, Globulin 3.9, Albumin/Globulin Ratio 0.7 L 04/10/22 06:40: APTT 53.4 H Micro: Microbiology 04/07/22 02:01 Urine, Clean Catch Urine Culture - Final Mixed Gram Positive Organisms Cardiology Labs/Tests 04/09/22 06:01: Uric Acid 12.5 H 04/09/22 23:33: APTT 48.7 H 04/10/22 06:40: WBC 8.4, RBC 3.25 L, Hgb 8.7 L, Hct 28.4 L, MCV 87.4, MCH 26.8 L , MCHC 30.6 L, Plt Count 208, MPV 11.8, Immature Gran % (Auto) 0.700, Neut % (Auto) 82.8 H, Lymph % (Auto) 8.5 L, [place] % (Auto) 7.9, Eos % (Auto) 0.0, Baso % (Auto) 0.1, Absolute Neuts (auto) 6.9, Nucleated RBC % 0 04/10/22 06:40: Sodium 137, Potassium 4.1, Chloride 109 H, Carbon Dioxide 21.0, Anion Gap 7, BUN 100 H, Creatinine 4.28 H, Est GFR (MDRD) Af Amer 19 L, Est GFR (MDRD) Non-Af 16 L, BUN/Creatinine Ratio 23.4 H, Glucose 158 H, Calcium 7.7 L, Total Bilirubin 0.30 04/10/22 06:40: APTT 53.4 H Rhythm: Sinus rhythm Physical Exam Const alert, oriented x3 and no apparent distress Orientation / Consciousness: awake HEENT normocephalic, head/scalp atraumatic and hearing grossly normal bilaterally Eyes PERRL, EOMs intact bilaterally, conjunctivae normal and no scleral icterus Neck full ROM, supple and no JVD Carotids: normal carotid upstroke Resp normal respiratory effort and clear to auscultation bilaterally Cardio regular rate, regular rhythm, S1 normal heart sound and S2 normal heart sound GI normal to inspection, nondistended, normoactive bowel sounds Extremity General Extremity: edema bilateral lower extremity Details: mild Skin no rashes or lesions noted Psych mental status grossly normal Assessment & Plan Assessment/Plan (1) Non-ST elevation [place] (NSTEMI): PLAN: The patient has a cardiovascular history as noted. He has abnormal cardiac enzymes, which have decreased, appear compatible with a non-ST segment elevation AR. At the moment the concern is this is a type II event brought out by his influenza A associated hypoxemia superimposed upon his cardiovascular noncardiovascular conditions. He has undergone evaluation with a transthoracic echocardiogram. The results are as noted. His previous noninvasive and invasive studies were reviewed. He will proceed with additional noninvasive evaluation with a pharmacologic stress nuclear imaging study. In the interim he will continue medical therapy which has included aspirin, antiplatelet agents with clopidogrel/Plavix, nitrates, beta-blockers, afterload reducing agents, and lipid-lowering agents. At the present time he may be able to discontinue his IV anticoagulant therapy. (2) Atherosclerotic heart disease of [place] coronary artery without angina pectoris: PLAN: The patient has a history of CAD. His previous records were reviewed. He will continue medical therapy as noted above. (3) History of coronary artery stent placement: PLAN: The patient has a history of previous PCI. His most recent cardiac catheterization is as noted. He will continue medical management with the medications as noted above with adjustment as deemed appropriate. (4) Left ventricular systolic dysfunction (LVSD): PLAN: The patient's transthoracic echocardiogram does demonstrate mild left ventricular systolic dysfunction. At the present time he will continue medical management. This does include agents such as nitrates, beta-blockers, and afterload reducing agents-taking into consideration his renal dysfunction, thus leading to agents such as nitrates/hydralazine therapy. This does include agents such as nitrates, his beta-blockers, afterload reducing agents, etc. He will proceed with additional noninvasive valuation with a pharmacologic stress nuclear imaging study. (5) Chronic diastolic (congestive) heart failure: PLAN: The patient has history of chronic diastolic mediated CHF. Based upon his transthoracic echocardiogram there may be a component of systolic dysfunction as well. At the moment he does not appear to demonstrate evidence of acute volume overload with respect to ongoing symptoms of orthopnea or PND or physical examination findings from a pulmonary standpoint. He will continue medical therapy with adjustment as needed taking into consideration his comorbidities and his renal dysfunction.. (6) Hyperlipidemia: PLAN: The patient should continue cardiovascular risk factor evaluation and care. This care would include continuation of his lipid-lowering agent with his atorvastatin. (7) Essential (primary) hypertension: PLAN: The patient's blood pressure will need to be monitored. His medications can be adjusted accordingly. (8) Diabetes mellitus: PLAN: The patient has diabetes mellitus. He will continue evaluation care per internal medicine. (9) Acute kidney injury superimposed on chronic kidney disease: PLAN: The patient appears to have acute on chronic renal insufficiency. He has been evaluated by nephrology. Nephrology consultation is most appreciated. At the moment it appears the plan is to continue to monitor the patient with respect to his renal function and depending upon his renal function he may need to be considered for future dialysis therapy. (10) Influenza A: PLAN: The patient has been diagnosed with influenza A. This may be the culprit for his overall clinical course leading to his symptoms and no other objective findings. He continues on Tamiflu therapy. He states he does feel good today . Hopefully this indicates that his viral syndrome is improving. (11) Hypoxia: PLAN: The patient has a history of hypoxemia. This may have been secondary to his influenza a event. He continues with O2 support as needed. His hypoxemia may be the culprit for his abnormal cardiac enzymes, etc., superimposed upon his other cardiovascular conditions, as noted above. (12) Near syncope: PLAN: The patient reported the sensation of feeling as if he would lose consciousness but apparently did not. This may be related to his ongoing noncardiac event and decreased intravascular volume, etc. Addt'l Comments The patient's case was discussed and reviewed with the patient at length. He was agreeable to the aforementioned evaluation care plan. Comment: Time spent in the overall evaluation and care of the patient: 55 minutes. Procedure Criteria Type of Procedure Procedure Type: Elective Elective Risks - COVID COVID Risk Discussion: The surgeon/proceduralist and patient have discussed in detail the risk of exposure to and/or potential harm posed by the COVID-19 virus with having a surgery/procedure at this time versus the risk of delaying the surgery/ procedure. It is not possible to know either the risk of delaying the surgery or procedure or chance of getting an infection with perfect accuracy, but a joint decision was made between the patient and the surgeon/proceduralist to proceed at this time with the scheduled surgery/procedure as indicated on the consent form.
[2022-04-10 11:45] LABS: Bedside Glucose 161 mg/dL (74-106)
[2022-04-10 16:31] LABS: Bedside Glucose 256 mg/dL (74-106)
--- NOTE | 2022-04-10 17:54 | PN.RENAL_ITS ---
Subjective Subjective Edward feels well today Going for stress test tomorrow Brisk urinary output Objective Data Objective Data Vital Signs: Vital Signs Temp Pulse Resp BP Pulse Ox O2 Del Method O2 Flow Rate 98.1 F 70 18 125/68 H 96 Room Air 0 04/10/22 15:00 04/10/22 15:00 04/10/22 15:00 04/10/22 15:00 04/10/22 15:00 04/10/22 15:00 04/08/22 13:53 Oxygen Flow Rate (L/min) 0 Oxygen Delivery Method Room Air Weight: 136.6 kg Body Mass Index (BMI) 41.5 Intake & Output: Intake and Output for Last 24 Hours 04/08/22 04/09/22 04/10/22 23:59 23:59 23:59 Intake Total 1130 / 1130 1227.50 / 1227.50 692.25 / 692.25 Output Total 700 / 700 700 / 1225 1051 / 1051 Balance 430 / 430 527.50 / 2.50 -358.75 / -358.75 Lab / Micro Data Result Diagrams: 04/10/22 06:40 04/10/22 06:40 Labs: Laboratory Results - last 24 hr 04/09/22 20:15: POC Glucose 250 H 04/09/22 23:33: APTT 48.7 H 04/10/22 06:17: POC Glucose 158 H 04/10/22 06:40: WBC 8.4, RBC 3.25 L, Hgb 8.7 L, Hct 28.4 L, MCV 87.4, MCH 26.8 L , MCHC 30.6 L, RDW Std Deviation 48.2 H, RDW Coeff of Rajendra 15.1 H, Plt Count 208, MPV 11.8, Immature Gran % (Auto) 0.700, Neut % (Auto) 82.8 H, Lymph % (Auto) 8.5 L, [place] % (Auto) 7.9, Eos % (Auto) 0.0, Baso % (Auto) 0.1, Absolute Neuts (auto) 6.9, Absolute Lymphs (auto) 0.71 L, Nucleated RBC % 0 04/10/22 06:40: Sodium 137, Potassium 4.1, Chloride 109 H, Carbon Dioxide 21.0, Anion Gap 7, BUN 100 H, Creatinine 4.28 H, Estim Creat Clear Calc 21.26, Est GFR (MDRD) Af Amer 19 L, Est GFR (MDRD) Non-Af 16 L, BUN/Creatinine Ratio 23.4 H, Glucose 158 H, Calcium 7.7 L, Total Bilirubin 0.30, AST 53 H, ALT 36, Alkaline Phosphatase 62, Total Protein 6.5, Albumin 2.6 L, Globulin 3.9, Albumin/Globulin Ratio 0.7 L 04/10/22 06:40: APTT 53.4 H 04/10/22 11:06: POC Glucose 161 H 04/10/22 16:02: POC Glucose 256 H Micro: Microbiology 04/07/22 02:01 Urine, Clean Catch Urine Culture - Final Mixed Gram Positive Organisms 04/07/22 02:03 Nasal Secretion SARS-CoV-2 & FLU Antigen (Rapid) - Final Influenzae A Physical Exam Const Constitutional Narrative: Patient is alert and responsive sitting at side of bed in no acute distress Normocephalic atraumatic extra muscles intact Oral mucosa is moist S1-S2 regular Breath sounds are equal Positive for truncal obesity +2 dependent edema in lower extremity No focal deficit Normal mood and affect Assessment & Plan Assessment/Plan (1) Acute kidney injury superimposed on chronic kidney disease: (2) Non-ST elevation [place] (NSTEMI): (3) Influenza A: PLAN: Plan Acute kidney injury and chronic kidney disease -Baseline serum creatinine is around 2.7 mg/dL, suspect this is secondary to hypertensive, diabetic renal disease -Serum creatinine peaked at 4.6 mg/dL and plateauing at 4.5 mg/dL -His diuretics and losartan has been on hold -No uremic symptoms -Is making more urine right now -Suspect acute insult Secondary to prerenal azotemia Plan -Overall stable from renal standpoint -Serum creatinine slightly improved to 4.2 mg/dL, nonoliguric -Continue to hold IV fluids and Lasix -Hopefully we will see further improvement in renal function over subsequent days -Noted of plan for stress test tomorrow by cardiology team Thank you please call [phone] with any concerns
[2022-04-10] MEDS: Atorvastatin Calcium 80 MG Tablet PO (21:00)
[2022-04-10] MEDS: 0.9% Saline Lock 10 ML Syringe IV (21:00)
[2022-04-10 22:26] LABS: Bedside Glucose 294 mg/dL (74-106)
[2022-04-11] VITALS (11 sets, daily range): BP systolic 132–169; BP diastolic 70–85; PULSE 63–80; RESP 16–18; TEMP 36.4–36.7; O2SAT 93–99
--- NOTE | 2022-04-11 05:55 | EKG12_ITS ---
Test Reason : AM EKG Blood Pressure : / mmHG Vent. Rate : 090 BPM Atrial Rate : 090 BPM P-R Int : 178 ms QRS Dur : 120 ms QT Int : 376 ms P-R-T Axes : 054 045 147 degrees QTc Int : 459 ms Normal sinus rhythm Minimal voltage criteria for LVH, may be normal variant ( [employer] product ) Inferior infarct , age undetermined ST & T wave abnormality, consider lateral ischemia Poor R wave progression Abnormal ECG Confirmed by JULIA NUNEZ, JAZMINE ([id number]), supervising film or videotape editor ISRAEL MALIK ([id number]) on 04/13/2022 9:55:34 AM Referred By: Confirmed By:JAZMINE DUMONT MD
[2022-04-11] MEDS: hydrALAZINE 25 MG Tablet PO (06:24)
[2022-04-11] MEDS: Clopidogrel Bisulfate 75 MG Tablet PO (06:24)
[2022-04-11] MEDS: hydrALAZINE 50 MG Tablet PO (06:24)
[2022-04-11] MEDS: Aspirin 81 MG TAB.CHEW PO (06:24)
[2022-04-11 07:26] LABS: Bedside Glucose 113 mg/dL (74-106)
--- NOTE | 2022-04-11 08:19 | US_ITS ---
STUDY: RENAL ULTRASOUND - COMPLETE REASON FOR EXAM: Male, 52 years old. ethan TECHNIQUE: Ultrasound evaluation of the kidneys was performed with real-time and static billings-scale imaging. COMPARISON: None. FINDINGS: RIGHT KIDNEY: Normal location of the right kidney, which is normal in size. The right kidney measures 14.7 cm x 6.3 cm x 5.6 cm. There is a normal cortex of the right kidney. The renal cortex measures 1.8 cm. There is no right renal mass or cyst. There are no right renal calculi. There is no right hydronephrosis. DISTAL RIGHT URETER: There is non-visualization of the distal right ureter. There is no demonstrated right ureterovesical junction calculus. There is no demonstrated right ureteral jet. LEFT KIDNEY: Normal location of the left kidney, which is normal in size. The left kidney measures 13.1 cm x 5.4 cm x 8.1 cm. There is a normal cortex of the left kidney. The renal cortex measures 1.9 cm. There is no left renal mass or cyst. There are no left renal calculi. There is no left hydronephrosis. DISTAL LEFT URETER: There is non-visualization of the distal left ureter. There is no demonstrated left ureterovesical junction calculus. There is no demonstrated left ureteral jet. BLADDER: The bladder is not adequately distended at the time of the examination. US/Kidney and Bladder IMPRESSION: Normal ultrasound of the kidneys. Electronically Signed: Dario Ponce MD at 10:23 EST ,
--- NOTE | 2022-04-11 08:41 | PN.HOSP_ITS ---
Objective Data Objective Data Vital Signs: Vital Signs Temp Pulse Resp BP Pulse Ox O2 Del Method O2 Flow Rate 36.7 C 66 18 153/85 H 97 Room Air 0 04/11/22 06:20 04/11/22 06:24 04/11/22 06:20 04/11/22 06:24 04/11/22 06:20 04/11/22 06:20 04/08/22 13:53 Oxygen Flow Rate (L/min) 0 Oxygen Delivery Method Room Air Weight: 136.6 kg Body Mass Index (BMI) 41.5 Intake & Output: Intake and Output for Last 24 Hours 04/09/22 04/10/22 04/11/22 23:59 23:59 23:59 Intake Total 1227.50 / 1227.50 1172.25 / 1172.25 Output Total 700 / 1225 1051 / 1701 1350 / 1350 Balance 527.50 / 2.50 121.25 / -528.75 -1350 / -1350 Lab / Micro Data Result Diagrams: 04/10/22 06:40 04/11/22 11:32 Labs: Laboratory Results - last 24 hr 04/10/22 11:06: POC Glucose 161 H 04/10/22 16:02: POC Glucose 256 H 04/10/22 20:59: POC Glucose 294 H 04/11/22 06:21: POC Glucose 113 H Micro: Microbiology 04/07/22 02:01 Urine, Clean Catch Urine Culture - Final Mixed Gram Positive Organisms 04/07/22 02:03 Nasal Secretion SARS-CoV-2 & FLU Antigen (Rapid) - Final Influenzae A Assessment & Plan Assessment/Plan (1) Non-ST elevation [place] (NSTEMI): PLAN: #NSTEMI with history of coronary artery disease with previous PCI TTE performed: EF 45% with severe concentric left ventricular hypertrophy, diastolic function indeterminate Continue aspirin, isosorbide mononitrate, beta-kane, atorvastatin, Plavix 04/09: Creatinine has worsened further but urination is begin to improve, nephrology evaluation does not want to do any fluids or further Lasix, suspect that his body is now beginning to compensate. Discussed with nephrology, if he does need cardiac evaluation and intervention renal replacement therapy can be coordinated if needed. Remains on heparin drip, cont med management at this time Stress test abnormal. Cardiology planning on medical mgmt at this time. (2) CORA (acute kidney injury): PLAN: #CORA on CKD likely stage IV Has CKD at baseline and this is worsened Nephrology consulted especially given that he may benefit from cardiac catheterization but this has been held given his worsening kidney function 04/09: Renal ultrasound ordered, nephrology following, hold Lasix and fluids, hold losartan. Discussed with nephrology, urine output improving and suspect that he will begin to compensate. Continue to monitor BMP (3) Influenza A: PLAN: #Influenza A Likely reason for his diarrhea Continue Tamiflu May need gentle hydration if diarrhea continues the want to avoid volume overload Methylpred de-escalated to oral prednisone PLAN: Plan Chronic conditions: * Type 2 diabetes mellitus: Continue glucose checks and sliding scale insulin.On Lantus 20 twice daily. A1c 9.1
--- NOTE | 2022-04-11 09:15 | STRESSREP_ITS ---
Stress Test Report Date: Procedure: Pharmacologic stress nuclear imaging study Indications: Non-ST segment elevation ID; CAD; PCI Consent: Per the patient Procedure: The patient underwent pharmacologic (Regadenoson 0.4mg ) evaluation with a peak heart rate of 78 beats per minute (46%predicted maximal heart rate) and a resting blood pressure of 152/90 mmHg and a peak blood pressure of 152/90 mmHg. The baseline ECG demonstrated normal sinus rhythm; incomplete left bundle branch block pattern; nonspecific ST/T wave abnormality. The peak pharmacologic ECG demonstrated no obvious ECG changes. There was an isolated PVC during infusion. There was no complaint of chest discomfort during pharmacologic infusion or recovery. The examination was discontinued secondary to completion of protocol. Impression: 1. Pharmacologic (Regadenoson) evaluation 2. Peak pharmacologic ECG with no obvious ECG changes. 3. There was an isolated PVC during infusion. 4. Nuclear images pending Myocardial perfusion imaging study: Technique: The patient was injected with 14.8 millicuries of technetium 99m Cardiolite and subsequently rest SPECT Cardiolite nuclear imaging was obtained in the horizontal long, vertical long, and short axis views. The patient underwent pharmacologic (Regadenoson) evaluation with a peak heart rate of 78 beats per minute (46% percent predicted maximal heart rate) and a resting blood pressure of 152/90 mmHg and a peak blood pressure of 152/90 mmHg. The patient was injected with 44.7 millicuries of technetium 99m Cardiolite and subsequently stress SPECT Cardiolite nuclear imaging was obtained in the horizontal long, vertical long, and short axis views. A gated Cardiolite study at peak stress was obtained. Interpretation: Rest and stress SPECT Cardiolite nuclear imaging status post realignment, normalization, and attenuation correction demonstrate the appearance of diminished myocardial perfusion/tracer uptake in portions of the basal to mid inferior segments as well as basal to mid inferoseptal segments and the inferior apical/lateral apical segments which appears to be somewhat more prominent following stress in portions of the mid inferoseptal segments. There is diminished end-systolic thickening and brightening. The gated Cardiolite study demonstrates diminished myocardial thickening and inward wall motion. The reported LVEF is 29%. Impression: 1. Rest and stress SPECT her nuclear imaging demonstrate myocardial perfusion changes appearing compatible with an area of previous myocardial injury/infarction involving portions of the basal to mid inferior segments, basal to mid inferoseptal segments, and the inferoapical/lateral apical segments with post stress myocardial perfusion changes appearing compatible with mild eliud-infarct related myocardial ischemia in the mid inferoseptal segments. 2. The gated Cardiolite study reports an LVEF of 29%. This note was generated with [employer] software. It may contain incorrect words, spelling, and punctuation that were not noted in checking the note before signing.
[2022-04-11] MEDS: Citalopram 10 MG Tablet PO (10:04)
[2022-04-11] MEDS: predniSONE 20 MG Tablet 40 MG PO (10:04)
[2022-04-11] MEDS: Metoprolol(XL)Succ 100 MG Tablet PO (10:04)
[2022-04-11] MEDS: Isosorbide Mononitrate 60 MG Tablet PO (10:06)
[2022-04-11] MEDS: amLODIPine 5 MG Tablet PO (10:06)
[2022-04-11] MEDS: Oseltamivir Phosphate 30 MG Capsule PO (10:06)
[2022-04-11] MEDS: Ipratropium/Albuterol Sulfate 3 ML AMPUL.NEB INHALATION (11:04)
--- NOTE | 2022-04-11 12:12 | PCM.PN.REN ---
Subjective Subjective No new complaints Objective Data Objective Data Vital Signs: Vital Signs Temp Pulse Resp BP Pulse Ox O2 Del Method O2 Flow Rate 98.1 F 80 18 154/78 H 93 Room Air 0 04/11/22 06:20 04/11/22 11:05 04/11/22 11:05 04/11/22 10:04 04/11/22 11:06 04/11/22 11:06 04/08/22 13:53 Oxygen Flow Rate (L/min) 0 Oxygen Delivery Method Room Air Weight: 136.6 kg Body Mass Index (BMI) 41.5 Intake & Output: Intake and Output for Last 24 Hours 04/09/22 04/10/22 04/11/22 23:59 23:59 23:59 Intake Total 1227.50 / 1227.50 1172.25 / 1172.25 Output Total 700 / 1225 1051 / 1701 1350 / 1350 Balance 527.50 / 2.50 121.25 / -528.75 -1350 / -1350 Lab / Micro Data Result Diagrams: 04/10/22 06:40 04/10/22 06:40 Labs: Laboratory Results - last 24 hr 04/10/22 16:02: POC Glucose 256 H 04/10/22 20:59: POC Glucose 294 H 04/11/22 06:21: POC Glucose 113 H Micro: Microbiology 04/07/22 02:01 Urine, Clean Catch Urine Culture - Final Mixed Gram Positive Organisms 04/07/22 02:03 Nasal Secretion SARS-CoV-2 & FLU Antigen (Rapid) - Final Influenzae A Radiography Diagnostic Testing: Radiology Impression Renal Ultrasound 04/11/22 08:19 IMPRESSION: Normal ultrasound of the kidneys. Electronically Signed: Dario Ponce MD at 10:23 EST , Physical Exam Const Constitutional Narrative: Patient is alert and responsive sitting at side of bed in no acute distress Normocephalic atraumatic extra muscles intact Oral mucosa is moist S1-S2 regular Breath sounds are equal Positive for truncal obesity +2 dependent edema in lower extremity No focal deficit Normal mood and affect Assessment & Plan Assessment/Plan (1) Acute kidney injury superimposed on chronic kidney disease: (2) Non-ST elevation [place] (NSTEMI): (3) Influenza A: PLAN: Plan Acute kidney injury and chronic kidney disease -Baseline serum creatinine is around 2.7 mg/dL from August 2021, several fluctuations over the last few years. History of diabetes and hypertension, proteinuria ranging between 0.5 g to 1.5 g. Renal ultrasound shows kidney size on the higher side about 14 cm, consistent with diabetic nephropathy. Will check old records to see if a serum protein electrophoresis has been done. Urine analysis also shows consistent microscopic hematuria, no kidney stones. It is possible that he has some background thin membrane disease/IgA nephropathy. Given CKD stage IV at baseline, I doubt a kidney biopsy will show any treatable disease at this point. Creatinine is slightly better at 4.0. No other uremic signs or symptoms. No acute indications for dialysis today. He will need nephrology follow-up after discharge. Stress test this morning. Pending results.
[2022-04-11] MEDS: Insulin Glargine-YFGN 100 UNIT/ML Pen 20 UNIT SC (12:15)
[2022-04-11] MEDS: Insulin Lispro 100 UNIT/ML INSULN.PEN SC ×2 (12:15→17:24)
[2022-04-11 12:32] LABS: Anion Gap 8 (5-15); BUN 97 mg/dL (7-18); BUN/Creat Ratio 25.8 RATIO (10-20); Calcium,Total 8.3 mg/dL (8.5-10.1); Chloride 110 mmol/L (98-107); Creatinine, Serum 3.76 mg/dL (0.70-1.30); EST Glomerular Filtration Rate 18 mL/min (>60); Est Glom Filt Rate - Afr Amer 22 mL/min (>60); Estimated Creatinine Clearance 23.92 ml/min; Glucose 147 mg/dL (74-106); Potassium 3.7 mmol/L (3.5-5.1); Sodium Level 140 mmol/L (136-145)
[2022-04-11 13:00] LABS: Bedside Glucose 169 mg/dL (74-106)
--- NOTE | 2022-04-11 17:22 | DCINST_ITS ---
Discharge Instructions Diet Discharge Diet: Low fat / Low cholesterol and 2000 Calorie Control Diet Dressing / Incision Call your doctor if you observe: Shortness of breath and Chest pain Follow Up Care Test Results: Test results from this visit will be discussed in further detail at your follow- up appointment, if applicable. Discharge Plan Admission Admit Date/Time: 04/07/22 03:41 Primary Reason for Your Visit: NSTEMI. CORA Attending Provider: Luis Carlos Porter Primary Care Provider: Joseph Ricks Consulting Providers: Peewee Bey ; Cloleen Gann ; Francisco Akbar ; Cesilia New Discharge Orders/Prescriptions Prescriptions: New amlodipine 5 mg Tablet 5 mg PO DAILY Qty: 30 0RF hydralazine 50 mg Tablet 50 mg PO BID Qty: 60 0RF Continued metoprolol succinate 100 mg tablet extended release 24 hr 100 mg PO DAILY aspirin 81 MG tablet,chewable 81 mg PO DAILY@0800 Label Comments: [facility] atorvastatin 80 MG tablet 80 mg PO QHS 30 Days Qty: 30 0RF clopidogrel 75 MG tablet 75 mg PO DAILY 30 Days Qty: 30 0RF insulin glargine [Lantus Solostar U-100 Insulin] 100 unit/mL (3 mL) insulin pen 20 unit subcut BID 30 Days Qty: 12 0RF Rx Instructions: Takes if Blood sugar > 150 ezetimibe 10 mg tablet 10 mg PO DAILY Label Comments: TAKE 1 TABLET BY MOUTH EVERY DAY isosorbide mononitrate 60 mg tablet extended release 24 hr 60 mg PO DAILY 30 Days Qty: 30 11RF Rx Instructions: please refill now Discontinued losartan 25 mg tablet 25 mg PO DAILY furosemide 40 mg Tablet 40 mg PO DAILY 7 Days Qty: 7 0RF Referrals / Follow Up: [facility] [Provider Group] - Within 1 Month Francisco Akbar MD [Med Staff - Consulting] - Within 1 Month Joseph Ricks MD [Primary Care Provider] - Within 2 Weeks Disposition Disposition (needs filled in before D/C Order can be placed): Home, Self Care
--- NOTE | 2022-04-11 17:32 | PCM.DC.SUM ---
Providers Date of Admission: 04/07/22 Primary Care Physician: Dr. Joseph Ricks MD Consultations 04/07/22 05:05 Consult: Cardiology Routine Consulting Provider: Peewee Bey Reason for Consult: NSTEMI EMERGENT Consult: No Notified: Yes Date Notified: 04/07/22 Time Notified: 04:32 Method of Notification: ED Physician Initiated 04/08/22 13:41 Consult: Nephrology Routine Consulting Provider: Francisco Akbar Reason for Consult: worsening kidney fxn, not improved with hydration EMERGENT Consult: No Notified: Yes Date Notified: 04/08/22 Time Notified: 13:43 Method of Notification: Answering Service Reason For Visit: HYPOXIA, INFLUENZA A, NSTEMI, COAR Diagnosis Discharge Diagnosis (1) Non-ST elevation [place] (NSTEMI): Status: Acute Code(s): I21.4 - Non-ST elevation (NSTEMI) myocardial infarction Plan: #NSTEMI with history of coronary artery disease with previous PCI TTE performed: EF 45% with severe concentric left ventricular hypertrophy, diastolic function indeterminate Continue aspirin, isosorbide mononitrate, beta-brittany, atorvastatin, Plavix 04/09: Creatinine has worsened further but urination is begin to improve, nephrology evaluation does not want to do any fluids or further Lasix, suspect that his body is now beginning to compensate. Discussed with nephrology, if he does need cardiac evaluation and intervention renal replacement therapy can be coordinated if needed. Remains on heparin drip, cont med management at this time Stress test abnormal. Cardiology planning on medical mgmt at this time. Patient to continue with isosorbide, hydralazine, metoprolol succinate and atorvastatin. Patient not a candidate for LEONIDES inhibitor's given CORA. Patient will be on isosorbide and hydralazine instead. (2) CORA (acute kidney injury): Status: Acute Code(s): N17.9 - Acute kidney failure, unspecified Plan: #CORA on CKD likely stage IV Has CKD at baseline and this is worsened Creatinine overall improved. Patient will follow-up with nephrology as outpatient. No need for renal replacement therapy at this time. Furosemide and losartan have been discontinued. (3) Influenza A: Status: Acute Code(s): J10.1 - Influenza due to other identified influenza virus with other respiratory manifestations Plan: #Influenza A Likely reason for his diarrhea Continue Tamiflu May need gentle hydration if diarrhea continues the want to avoid volume overload Resolved. Currently stable. Plan Chronic conditions: Type 2 diabetes mellitus: Continue glucose checks and sliding scale insulin.On Lantus 20 twice daily. A1c 9.1 Medications at Discharge Home Medications aspirin 81 mg chewable tablet 81 mg PO DAILY@0800 heart 09/28/14 atorvastatin 80 mg tablet 80 mg PO QHS cholesterol 30 days #30 tabs 06/21/21 clopidogrel 75 mg tablet 75 mg PO DAILY Blood Thinner 30 days #30 tabs 06/21/21 insulin glargine 100 unit/mL (3 mL) subcutaneous pen (Lantus Solostar U-100 Insulin) 20 unit (0.2 mL) subcut BID Diabetes 30 days #12 mL 06/21/21 metoprolol succinate 100 mg tablet,extended release 24 hr 100 mg PO DAILY blood pressure 01/09/22 isosorbide mononitrate 60 mg tablet,extended release 24 hr 60 mg PO DAILY Heart 30 days #30 tabs 01/12/22 ezetimibe 10 mg tablet 10 mg PO DAILY cholesterol 04/07/22 amlodipine 5 mg tablet 5 mg PO DAILY #30 tabs 04/11/22 hydralazine 50 mg tablet 50 mg PO BID #60 tabs 04/11/22 Hospital Course Operations None Procedures 2-D Echocardiogram and Stress test Summary of Care Provided Minutes Spent on Discharge: 35 Weight / BMI Weight Weight: 136.6 kg Body Mass Index (BMI) 41.5 ABG / Lab / Microbiology Data Result Diagrams: 04/10/22 06:40 04/11/22 11:32 Laboratory: Laboratory Results - last 24 hr 04/10/22 20:59: POC Glucose 294 H 04/11/22 06:21: POC Glucose 113 H 04/11/22 11:32: Sodium 140, Potassium 3.7, Chloride 110 H, Carbon Dioxide 22.0, Anion Gap 8, BUN 97 H, Creatinine 3.76 H, Estim Creat Clear Calc 23.92, Est GFR (MDRD) Af Amer 22 L, Est GFR (MDRD) Non-Af 18 L, BUN/Creatinine Ratio 25.8 H, Glucose 147 H, Calcium 8.3 L 04/11/22 12:13: POC Glucose 169 H Microbiology: Microbiology 04/07/22 02:01 Urine, Clean Catch Urine Culture - Final Mixed Gram Positive Organisms 04/07/22 02:03 Nasal Secretion SARS-CoV-2 & FLU Antigen (Rapid) - Final Influenzae A Radiography Diagnostic Testing: Radiology Impression Renal Ultrasound 04/11/22 08:19 IMPRESSION: Normal ultrasound of the kidneys. Electronically Signed: Dario Ponce MD at 10:23 EST , D/C Instructions Discharge Diet: Low fat / Low cholesterol and 2000 Calorie Control Diet Call your doctor if you observe: Shortness of breath and Chest pain Meaningful Use Info Meaningful Use Diagnoses (Choose all that apply): AMI AMI/Post PCI/Angioplasty Aspirin given w/in 24hrs of arrival?: Yes ASA at discharge?: Yes Antiplatelet Therapy at Discharge:: Yes Statins at discharge?: Yes Leonides/ARB at discharge?: No Reason Leonides/ARB not ordered:: Worsening renal dysfunctn Beta Brittany at discharge?: Yes Done w/ Acute [place] measure.: Yes Documented LVEF (%): 65 Discharge Plan Admission Admit Date/Time: 04/07/22 03:41 Primary Reason for Your Visit: NSTEMI. CORA Attending Provider: Luis Carlos Porter Primary Care Provider: Joseph Ricks Consulting Providers: Peewee Bey ; Colleen Gann ; Francisco Akbar ; Cesilia New Discharge Orders/Prescriptions Prescriptions: New amlodipine 5 mg Tablet 5 mg PO DAILY Qty: 30 0RF hydralazine 50 mg Tablet 50 mg PO BID Qty: 60 0RF Continued metoprolol succinate 100 mg tablet extended release 24 hr 100 mg PO DAILY aspirin 81 MG tablet,chewable 81 mg PO DAILY@0800 Label Comments: [facility] atorvastatin 80 MG tablet 80 mg PO QHS 30 Days Qty: 30 0RF clopidogrel 75 MG tablet 75 mg PO DAILY 30 Days Qty: 30 0RF insulin glargine [Lantus Solostar U-100 Insulin] 100 unit/mL (3 mL) insulin pen 20 unit subcut BID 30 Days Qty: 12 0RF Rx Instructions: Takes if Blood sugar > 150 ezetimibe 10 mg tablet 10 mg PO DAILY Label Comments: TAKE 1 TABLET BY MOUTH EVERY DAY isosorbide mononitrate 60 mg tablet extended release 24 hr 60 mg PO DAILY 30 Days Qty: 30 11RF Rx Instructions: please refill now Discontinued losartan 25 mg tablet 25 mg PO DAILY furosemide 40 mg Tablet 40 mg PO DAILY 7 Days Qty: 7 0RF Referrals / Follow Up: [facility] [Provider Group] - Within 1 Month Francisco Akbar MD [Med Staff - Consulting] - Within 1 Month Joseph Ricks MD [Primary Care Provider] - Within 2 Weeks Disposition Disposition (needs filled in before D/C Order can be placed): Home, Self Care Charges/Coding Visit Charges Inpatient E&M: 26745 Disch Hosp >30min
--- NOTE | 2022-04-11 17:48 | PN.CARD_ITS ---
Subjective Subjective The patient is awake and alert. He denies any ongoing chest discomfort or difficulty breathing at this time. He states overall he is feeling better. Objective Data Vital Signs: Vital Signs Temp Pulse Resp BP Pulse Ox O2 Del Method O2 Flow Rate 97.9 F 66 18 157/74 H 99 Room Air 0 04/11/22 17:28 04/11/22 17:28 04/11/22 17:28 04/11/22 17:28 04/11/22 17:28 04/11/22 17:28 04/08/22 13:53 Oxygen Flow Rate (L/min) 0 Oxygen Delivery Method Room Air Weight: 301 lb 2.423 oz Body Mass Index (BMI) 41.5 Intake & Output: Intake and Output for Last 24 Hours 04/09/22 04/10/22 04/11/22 23:59 23:59 23:59 Intake Total 1227.50 / 1227.50 1172.25 / 1172.25 630 / 630 Output Total 700 / 1225 1051 / 1701 1350 / 1350 Balance 527.50 / 2.50 121.25 / -528.75 -720 / -720 Lab / Micro Data Result Diagrams: 04/10/22 06:40 04/11/22 11:32 Labs: Laboratory Results - last 24 hr 04/10/22 20:59: POC Glucose 294 H 04/11/22 06:21: POC Glucose 113 H 04/11/22 11:32: Sodium 140, Potassium 3.7, Chloride 110 H, Carbon Dioxide 22.0, Anion Gap 8, BUN 97 H, Creatinine 3.76 H, Estim Creat Clear Calc 23.92, Est GFR (MDRD) Af Amer 22 L, Est GFR (MDRD) Non-Af 18 L, BUN/Creatinine Ratio 25.8 H, Glucose 147 H, Calcium 8.3 L 04/11/22 12:13: POC Glucose 169 H Cardiology Labs/Tests 04/11/22 11:32: Sodium 140, Potassium 3.7, Chloride 110 H, Carbon Dioxide 22.0, Anion Gap 8, BUN 97 H, Creatinine 3.76 H, Est GFR (MDRD) Af Amer 22 L, Est GFR (MDRD) Non-Af 18 L, BUN/Creatinine Ratio 25.8 H, Glucose 147 H, Calcium 8.3 L Rhythm: Sinus rhythm Stress Test: Stress Test Report Date: Procedure: Pharmacologic stress nuclear imaging study? Indications: Non-ST segment elevation AR; CAD; PCI Consent: Per the patient Procedure: The patient underwent pharmacologic (Regadenoson 0.4mg ) evaluation with a peak heart rate of 78 beats per minute (46%predicted maximal heart rate) and a resting blood pressure of 152/90 mmHg and a peak blood pressure of 152/90 mmHg. The baseline ECG demonstrated normal sinus rhythm; incomplete left bundle branch block pattern; nonspecific ST/T wave abnormality.? The peak pharmacologic ECG demonstrated no obvious ECG changes. There was an isolated PVC during infusion. There was no complaint of chest discomfort during pharmacologic infusion or recovery. The examination was discontinued secondary to completion of protocol. Impression: 1.? Pharmacologic (Regadenoson) evaluation 2.? Peak pharmacologic ECG with no obvious ECG changes. 3.? There was an isolated PVC during infusion. 4.? Nuclear images pending Myocardial perfusion imaging study: Technique: The patient was injected with 14.8 millicuries of technetium 99m Cardiolite and subsequently rest SPECT Cardiolite nuclear imaging was obtained in the horizontal long, vertical long, and short axis views. The patient underwent pharmacologic (Regadenoson) evaluation with a peak heart rate of 78 beats per minute (46% percent predicted maximal heart rate) and a resting blood pressure of 152/90 mmHg and a peak blood pressure of 152/90 mmHg. The patient was injected with 44.7 millicuries of technetium 99m Cardiolite and subsequently stress SPECT Cardiolite nuclear imaging was obtained in the horizontal long, miley tical long, and short axis views.? A gated Cardiolite study at peak stress was obtained. Interpretation: Rest and stress SPECT Cardiolite nuclear imaging status post realignment, normalization, and attenuation correction demonstrate the appearance of diminished myocardial perfusion/tracer uptake in portions of the basal to mid inferior segments as well as basal to mid inferoseptal segments and the inferior apical/lateral apical segments which appears to be somewhat more prominent following stress in portions of the mid inferoseptal segments.? There is diminished end-systolic thickening and brightening.? The gated Cardiolite study demonstrates diminished myocardial thickening and inward wall motion.? The reported LVEF is 29%. Impression: 1.? Rest and stress SPECT her nuclear imaging demonstrate myocardial perfusion changes appearing compatible with an area of previous myocardial injur y/infarction involving portions of the basal to mid inferior segments, basal to mid inferoseptal segments, and the inferoapical/lateral apical segments with post stress myocardial perfusion changes appearing compatible with mild eliud- infarct related myocardial ischemia in the mid inferoseptal segments. 2.? The gated Cardiolite study reports an LVEF of 29%. Radiography Diagnostic Testing: Radiology Impression Renal Ultrasound 04/11/22 08:19 IMPRESSION: Normal ultrasound of the kidneys. Electronically Signed: Dario Ponce MD at 10:23 EST , Physical Exam Const alert, oriented x3 and no apparent distress Orientation / Consciousness: awake HEENT normocephalic, head/scalp atraumatic and hearing grossly normal bilaterally Eyes PERRL, EOMs intact bilaterally, conjunctivae normal and no scleral icterus Neck full ROM, supple and no JVD Carotids: normal carotid upstroke Resp normal respiratory effort and clear to auscultation bilaterally Cardio regular rate, regular rhythm, S1 normal heart sound and S2 normal heart sound GI normal to inspection, nondistended, normoactive bowel sounds Extremity General Extremity: edema bilateral lower extremity Details: mild Skin no rashes or lesions noted Psych mental status grossly normal Assessment & Plan Assessment/Plan (1) Non-ST elevation AR (NSTEMI): PLAN: The patient has a cardiovascular history as noted. He has abnormal cardiac enzymes, which have decreased, appear compatible with a non-ST segment elevation AR. At the moment the concern is this is a type II event brought out by his influenza A associated hypoxemia superimposed upon his cardiovascular noncardiovascular conditions. He has undergone evaluation with a transthoracic echocardiogram. The results ar e as noted. He has undergone further evaluation with a pharmacologic stress nuclear imaging study. The results are noted. They have been reviewed with him. At the present time he will continue medical management. This will include his aspirin therapy, isosorbide mononitrate, metoprolol succinate, atorvastatin, and his antiplatelet therapy with clopidogrel/Plavix. There are no immediate plans for further evaluation with diagnostic cardiac catheterization based upon his acute on chronic renal insufficiency and the concerns of IV contrast related nephropathy. (2) Atherosclerotic heart disease of [place] coronary artery without angina pectoris: PLAN: The patient has a history of CAD. His previous records were reviewed. He will continue medical therapy as noted above. (3) History of coronary artery stent placement: PLAN: The patient has a history of previous PCI. His pharmacologic stress nuclear imaging study as noted. Again he will continue medical therapy as noted above. (4) Left ventricular systolic dysfunction (LVSD): PLAN: The patient's transthoracic echocardiogram does demonstrate mild left vent ricular systolic dysfunction. At the present time he will continue medical management. This does include agents such as nitrates, beta-blockers, and afterload reducing agents-taking into consideration his renal dysfunction, thus leading to agents such as nitrates/hydralazine therapy. This does include agents such as nitrates, his beta-blockers, afterload reducing agents, etc. His LV systolic function can be followed over time by noninvasive studies such as transthoracic echocardiogram. (5) Chronic diastolic (congestive) heart failure: PLAN: The patient has history of chronic diastolic mediated CHF. Based upon his transthoracic echocardiogram there may be a component of systolic dysfunction as well. At the moment he does not appear to demonstrate evidence of acute volume overload with respect to ongoing symptoms of orthopnea or PND or physical examination findings from a pulmonary standpoint. He will continue medical therapy with adjustment as needed taking into consideration his comorbidities and his renal dysfunction.. (6) Hyperlipidemia: PLAN: The patient should continue cardiovascular risk factor evaluation and care. This care would include continuation of his lipid-lowering agent with his atorvastatin. (7) Essential (primary) hypertension: PLAN: The patient's blood pressure will need to be monitored. His medications can be adjusted accordingly. (8) Diabetes mellitus: PLAN: The patient has diabetes mellitus. He will continue evaluation care per internal medicine. (9) Acute kidney injury superimposed on chronic kidney disease: PLAN: The patient appears to have acute on chronic renal insufficiency. He is being followed by nephrology at this time. (10) Influenza A: PLAN: The patient has been diagnosed with influenza A. This may be the culprit for his overall clinical course leading to his symptoms and no other objective findings. He has been treated with Tamiflu. (11) Hypoxia: PLAN: The patient has a history of hypoxemia. This may have been secondary to his influenza a event. He does not appear to require ongoing O2 support at this time. (12) Near syncope: PLAN: The patient reported the sensation of feeling as if he would lose consciousness but apparently did not. This may be related to his ongoing noncardiac event and decreased intravascular volume, etc. He has had no additional near-syncope. Addt'l Comments Overall, at the present time, the patient will continue conservative cardi ovascular medical therapy. There are no immediate plans for additional invasive cardiovascular evaluation at this time. He will need future outpatient cardiovascular follow-up to monitor his status. The patient's case was discussed and reviewed with him. He was agreeable to this approach. Comment: Time spent in the patient's overall evaluation, care, examination, documentation, etc.: 55 minutes. Procedure Criteria Type of Procedure Procedure Type: Elective Elective Risks - COVID COVID Risk Discussion: The surgeon/proceduralist and patient have discussed in detail the risk of exposure to and/or potential harm posed by the COVID-19 virus with having a surgery/procedure at this time versus the risk of delaying the surgery/procedure. It is not possible to know either the risk of delaying the surgery or procedure or chance of getting an infection with perfect accuracy, but a joint decision was made between the patient and the surgeon/proceduralist to proceed at this time with the scheduled surgery/procedure as indicated on the consent form.
[2022-04-11 18:36] LABS: Bedside Glucose 287 mg/dL (74-106)
--- NOTE | 2022-04-12 12:32 | NURSING ---
EVS found a pair of sweat pants in pt's room after d/c. I called pt to let him know we had the pants he stated just toss them in the trash I conformed he wanted me to toss them in the thrash and he stated yes.
== END 2022-04-11 18:58 | disposition home or self-care (01) | DRG 193 ==
LOC: ED 03:01 → PCU 03:51
PROVIDERS: Internal Medicine; Admitting Provider Family Medicine; Emergency Provider Emergency Medicine; PCP Family Medicine
DX: J10.1 Influenza due to other identified influenza virus with other respiratory manifestations (principal); I21.4 Non-ST elevation (NSTEMI) myocardial infarction; I13.0 Hypertensive heart and chronic kidney disease with heart failure and stage 1 through stage 4 chronic kidney disease, or unspecified chronic kidney disease; N17.9 Acute kidney failure, unspecified; I50.32 Chronic diastolic (congestive) heart failure; N18.4 Chronic kidney disease, stage 4 (severe); Z68.41 Body mass index [BMI] 40.0-44.9, adult; D63.8 Anemia in other chronic diseases classified elsewhere; E11.42 Type 2 diabetes mellitus with diabetic polyneuropathy; E11.21 Type 2 diabetes mellitus with diabetic nephropathy; E11.22 Type 2 diabetes mellitus with diabetic chronic kidney disease; E11.65 Type 2 diabetes mellitus with hyperglycemia; E66.01 Morbid (severe) obesity due to excess calories; Z79.4 Long term (current) use of insulin; E78.5 Hyperlipidemia, unspecified; I25.10 Atherosclerotic heart disease of native coronary artery without angina pectoris; I25.5 Ischemic cardiomyopathy; Z60.2 Problems related to living alone; F32.A Depression, unspecified; Z79.82 Long term (current) use of aspirin; R55 Syncope and collapse; Z86.16 Personal history of COVID-19; R53.1 Weakness; R09.02 Hypoxemia; Z95.5 Presence of coronary angioplasty implant and graft
CPT/HCPCS: 36415; 71045; 76770; 78452; 80048; 80053; 80061; 81001; 82550; 82570; 82962; 83036; 83735; 83880; 84156; 84300; 84484; 84550; 85025; 85610; 85730; 87086; 87088; 87428; 93005; 93017; 93306; 94640; 97161; 97165; 97530; 97535; 99251; 99285; A9500; J7030; Q9957; 90686; A4216; C8929; G0463; J1940; J2785

== ENCOUNTER → 2022-06-02 | Outpatient (CLI) | payer OTHER, SELFPAY ==
[2018-12-25 08:56] VITALS: BMI 37.9
--- NOTE | 2022-06-02 09:48 | VDLE_ITS ---
Reason For Study: LEG SWELLING RIGHT LEFT GSV is normal. CFV is compressible, spontaneous, competent, CFV is compressible, spontaneous, competent and demonstrates pulsatile venous flow. and demonstrates pulsatile venous flow. FV is compressible, spontaneous, phasic, competent and demonstrates normal augmentation. POP V is compressible, spontaneous, phasic, competent and demonstrates normal augmentation. T/P Trunk is compressible. PTV is compressible. RT PerV is compressible. Procedure Exam performed in department. The exam was diagnostic. The study was technically difficult. A preliminary report was called and/or faxed to Fiordaliza Brumfield / [facility]. VL/Venous Duplex US, Unilateral Interpretation Summary There is no evidence of right lower extremity deep vein thrombosis. Right great saphenous vein appears patent and compressible segmentally. Pulsatile venous flow was noted in bilateral common femoral veins consistent with proximal venous hypertension or obstruction. Clin ical correlation would be appropriate. Right groin subcutaneous structure 2.39 x 1.35 with some vascular flow--possibl e lymph node but clinical correlation would be appropriate. This examination was noted to be technically difficult Ordering Physician: Fiordaliza Brumfield Referring Physician: Fiordaliza Brumfield Performed By: Altaf Holland RVT
== END | disposition home or self-care (01) ==
LOC: CVS 09:47
PROVIDERS: PCP Family Medicine; Referring Provider Physician Assistant Medical; Visit Provider Physician Assistant Medical
DX: R60.0 Localized edema (principal); I50.32 Chronic diastolic (congestive) heart failure; E11.22 Type 2 diabetes mellitus with diabetic chronic kidney disease; N18.31 Chronic kidney disease, stage 3a; I25.10 Atherosclerotic heart disease of native coronary artery without angina pectoris; I87.2 Venous insufficiency (chronic) (peripheral); E78.5 Hyperlipidemia, unspecified; I25.5 Ischemic cardiomyopathy
CPT/HCPCS: 93971

== ENCOUNTER 2022-06-05 09:53 | Inpatient (IN) | payer OTHER, SELFPAY ==
[2018-12-25 08:56] VITALS: BMI 37.9
[2022-06-05] VITALS (7 sets, daily range): BP systolic 135–165; BP diastolic 70–94; PULSE 64–71; RESP 16–22; TEMP 36.4–36.6; O2SAT 88–94; BMI 46.0; BMI 45.6
--- NOTE | 2022-06-05 10:27 | ED.VIS.DYS ---
HPI History of Present Illness Chief Complaint: Shortness of Breath Detail of Chief Complaint: Several weeks. Informant: patient and family Onset/Context/Timing Onset: Weeks Context: gradual Timing: Continuous Quality: Positive for Dyspnea on exertion and Orthopnea; Negative for PND or Wheezing Current Severity: Mild Maximum Severity: Mild Worsened by: Exertion and Lying flat Relieved by: Oxygen Associated Symptoms cough Chest Pain: Positive for None Narrative Narrative: 52-year-old male extensive past medical history of CHF, CAD, NM, diabetes, chronic kidney disease, anemia and hypertension. His EF of 45%. Recently had lower extremity ultrasounds done showing no DVT. He was hospitalized in April. Patient's had weight gain over 30 pounds and increased swelling of both lower extremities. Recently has had his medications changed and then changed back by nurse practitioner in the cardiology's office. He denies any chest pain. No fever. He is still urinating. Denies any melena. Seen today in urgent care and sent to the emergency department for further evaluation. He was hypoxic there with his pulse ox in the 80s on room air. Typically he is not on oxygen. PE Risk Factors: Positive for Recent immobilization; Negative for Cancer, OCP + Smoking + > 35, Prior DVT or PE, Recent surgery or Recent travel Prior similar symptoms: Yes Recent Illness/Hospitalization: Yes PFSH [facility] Medical History Atherosclerotic heart disease of [place] coronary artery without angina pectoris Carotid artery stenosis Chronic diastolic (congestive) heart failure Chronic kidney disease Chronic kidney disease Chronic kidney disease, stage 3a Coronary artery disease Depression Diabetes mellitus Diabetes mellitus with diabetic polyneuropathy Diabetes mellitus, type II Diabetic infection of left foot Essential (primary) hypertension History of non-ST elevation myocardial infarction (NSTEMI) (03/15/20) History of stress test Hyperlipidemia Hyperlipidemia Hypertension Hypertension Hypomagnesemia Infected sebaceous cyst Ischemic cardiomyopathy (06/2013) Left ventricular systolic dysfunction (LVSD) Non-pressure 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 of bone Non-pressure chronic ulcer of other part of left foot with fat layer exposed Non-pressure chronic ulcer of other part of left foot with fat layer exposed Obesity Paresthesias Partial nontraumatic amputation of right foot Pneumonia due to COVID-19 virus (03/14/20) Type 2 diabetes mellitus with diabetic neuropathy, unspecified Type 2 diabetes mellitus with diabetic polyneuropathy Type 2 diabetes mellitus with foot ulcer Venous insufficiency Home Medications aspirin 81 mg chewable tablet 81 mg PO DAILY@0800 heart 09/28/14 [History Last Taken 12/20/18] atorvastatin 80 mg tablet 80 mg PO QHS cholesterol 30 days #30 tabs 06/21/21 [Rx Last Taken Unknown] clopidogrel 75 mg tablet 75 mg PO DAILY Blood Thinner 30 days #30 tabs 06/21/21 [Rx Last Taken Unknown] insulin glargine 100 unit/mL (3 mL) subcutaneous pen (Lantus Solostar U-100 Insulin) 20 unit (0.2 mL) subcut BID Diabetes 30 days #12 mL 06/21/21 [Rx Last Taken Unknown] isosorbide mononitrate 60 mg tablet,extended release 24 hr 60 mg PO DAILY Heart 30 days #30 tabs 01/12/22 [Rx Last Taken Unknown] ezetimibe 10 mg tablet 10 mg PO DAILY cholesterol 04/07/22 [History Last Taken Unknown] hydralazine 100 mg tablet 100 mg PO TID #270 tabs 04/26/22 [Rx Last Taken Unknown] carvedilol 25 mg tablet 25 mg PO BID #180 tabs 05/25/22 [Rx Last Taken Unknown] amlodipine 5 mg tablet 5 mg PO DAILY . 06/05/22 [History Last Taken Unknown] losartan 25 mg tablet 25 mg PO DAILY . 06/05/22 [History Last Taken Unknown] metoprolol succinate 100 mg tablet,extended release 24 hr 100 mg PO DAILY . 06/05/22 [History Last Taken Unknown] Allergy/AdvReac Type Severity Reaction Status Date / Time lisinopril AdvReac Intermediate Cough Verified 06/05/22 09:57 losartan AdvReac Intermediate cough Verified 06/05/22 09:57 Family History Father , Age 57 from [place] Myocardial infarction CAD (coronary artery disease) Sudden cardiac Mother Sick sinus syndrome Sister Diabetes Surgical History H/O cardiac catheterization History of coronary artery stent placement (01/02/19) Social History household members: none Smoking Status: Never smoker alcohol intake: current alcohol intake frequency: holidays/special occasions only substance use type: does not use caffeine: Yes Type: carbonated beverages Number of servings: 2 ROS ROS ED ROS Narrative Shortness of breath. Leg swelling. Review of Systems ROS Unobtainable: Denies due to encephalopathy Constitutional Constitutional ED: Denies chills or fever(s) Eyes Eyes: Denies blurry vision ENT ENT ED: Denies ear pain Cardiovascular Cardiovascular: Denies chest pain, palpitations or racing heartbeat Respiratory/Chest Respiratory/Chest: Reports cough and dyspnea Gastrointestinal Gastrointestinal: Denies abdominal pain or constipation Genitourinary Genitourinary ED: Denies dysuria or hematuria Musculoskeletal Musculoskeletal: Denies arthralgias Integumentary Denies abscess or Abrasions Neurologic Neurologic: Denies headache(s) Psychiatric Psychiatric: Denies anxiety or depression Endocrine Endocrinology: Denies cold intolerance Hematologic/Lymphatic Hematologic/Lymphatic: Denies easy bleeding Allergic/Immunologic Allergic/Immunologic ED: Denies mouth swelling or tongue swelling EXAM Physical Exam Narrative Exam Narrative: 52-year-old male no acute distress. Vital signs are stable except pulse ox 80% on room air consistent with hypoxia. Blood pressure 135/70. He does not look septic or toxic. He is on oxygen when I enter the room. Sister at bedside. H EENT exam unremarkable. Neck nontender no JVD. Lungs clear to auscultation bilaterally. Heart regular rhythm rate about 70 no murmur. Abdomen soft nontender. Obese. Moving all 4 extremities. 3+ pitting edema both lower extremities. Dorsi plantarflexion intact. Normal fabrication lead strength. He has an open wound on the right side of his right foot clinically currently does not look infected. Neurologically is awake and alert with no focal motor deficits. Const Vital Signs: 06/05/22 09:53 06/05/22 09:58 06/05/22 10:21 Temperature 97.6 F L Temperature Source Temporal Pulse Rate 71 Respiratory Rate 22 H Respiratory Effort Short of Breath Respiratory Pattern Normal Blood Pressure 135/70 H Blood Pressure Mean 91 Pulse Ox 88 94 Oxygen Delivery Method Room Air Nasal Cannula Oxygen Flow Rate (L/min) 2 Positive well nourished, well developed and obese; Negative for cachectic, contractures or unkempt General Appearance ED: well developed and NAD; Negative for unkempt, cachectic, contractures or pallor Nutritional Appearance: obese; Negative for cachectic HEENT Reports moist mucous membranes; Denies dry mucous membranes atraumatic; Negative for trauma or tenderness Mouth ED: No dry mucous membranes Mouth: No dry mucous membranes Eyes PERRL and EOMs intact bilaterally General Eye ED: Negative for pale conjunctiva or scleral icterus Neck no lymphadenopathy, supple, no meningeal signs and no JVD General: Negative for tenderness Lymph Lymphatic: Negative for other Chest Wall Chest: Negative for other Resp normal respiratory effort and clear to auscultation bilaterally Effort and Inspection: Negative for pain with movement Auscultation: Negative for rales, rhonchi or wheezes Cardio regular rate, regular rhythm, S1 normal heart sound, S2 normal heart sound and no murmurs Rate: Negative for bradycardia or tachycardic GI non-tender, non-distended and no masses Inspection: Negative for other Auscultation: normoactive bowel sounds Palpation: soft; Negative for tender or guarding Back/Spine no CVA tenderness and normal to inspection General Back: Negative for CVA tenderness Extremity Negative for normal to inspection Extremity Narrative: Bilateral lower extremity pitting edema. General Extremety ED: Yes edema; Negative for tenderness General Extremity: edema Neuro oriented x3 Sensorium / Orientation: alert, oriented to person, oriented to place and oriented to time; Negative for orientation impaired, confused, lethargic or stuporous Speech: speech normal Motor Exam: strength 5/5 throughout Psych mental status grossly normal Appearance: Negative for unkempt Attitude: No agitated Mood & Affect: depressed Thought Process: normal thought process Skin no wounds General Skin Exam: Negative for jaundice or pallor Lesions: no lesions Rashes: no rashes Trauma: Negative for abrasion, laceration or puncture MDM MDM MDM Narrative Medical decision making narrative: 52-year-old male extensive past medical history with bilateral lower extremity pitting edema and 30 pound weight gain. Clinically appears to have congestive heart failure. He is also hypoxic on room air his pulse ox is 88. Screening labs are being obtained. Most likely he will need admission for CHF and hypoxia. Repeat exam unchanged. Patient will be given IV Lasix 40 mg. I have the hospitalist on page for admission. I did review his old labs and prior work-ups. Lab Data Attestation: I reviewed the patient's lab results. Lab results narrative: CBC shows white count 6.4. H&H 8.4 and 20.6 which is along his baseline chronic anemia. Platelets of 209. Chemistries show potassium of 5.2. A gap of 4 he has chronic kidney disease his last creatinine was 3.76. Today his BUN is 78 creatinine 3.42. Glucose 295. Troponin is normal at 18. His BNP is elevated 844. Chest x-ray is consistent with pulmonary edema and congestive heart failure. Patient be admitted to the hospital. Labs: Laboratory Results - last 24 hr 06/05/22 06/05/22 06/05/22 10:05 10:05 10:05 WBC 6.4 RBC 3.20 L Hgb 8.4 L Hct 28.6 L MCV 89.4 MCH 26.3 L MCHC 29.4 L RDW Std Deviation 56.4 H RDW Coeff of Rajendra 17.3 H Plt Count 209 MPV 10.9 Immature Gran % (Auto) 0.300 Neut % (Auto) 80.3 H Lymph % (Auto) 8.9 L [place] % (Auto) 8.3 Eos % (Auto) 1.7 Baso % (Auto) 0.5 Absolute Neuts (auto) 5.2 Absolute Lymphs (auto) 0.57 L Nucleated RBC % 0 Hypochromasia 1+ Sodium 142 Potassium 5.2 H Chloride 111 H Carbon Dioxide 27.0 Anion Gap 4 L BUN 78 H Creatinine 3.42 H Estim Creat Clear Calc 26.30 Est GFR (MDRD) Af Amer 24 L Est GFR (MDRD) Non-Af 20 L BUN/Creatinine Ratio 22.8 H Glucose 295 H Calcium 8.6 Troponin I High Sens 18 B-Natriuretic Peptide 844.7 H Radiography Chest X-Ray - ED: 1 View, Read by ED Physician, Heart, Lungs, Mediastinum, Bony Structures, No Acute Disease, Chronic Changes, Cardiomegaly and CHF Diagnostic Testing: Clinical Impression(s) from Imaging Studies Chest X-Ray 06/05/22 10:30 IMPRESSION: Cardiomegaly and CHF. A pericardial effusion should be ruled out. Electronically Signed: Dario Ponce MD at 10:50 EST , Chest x-ray, portable, single view shows a large heart and pulmonary edema. Consistent with CHF. Interpreted by myself. Rhythm Strip Rhythm Strip: Sinus Rhythm Rate: 65 Ectopy: None EKG Initial EKG: Attestation: I personally reviewed and interpreted this EKG as follows: Interpretation: Sinus Rhythm and No Acute Injury Pattern Comments: Normal sinus rhythm rate of 65 no acute signs of ST elevation or [place]. No change from prior EKG from April. Prior EKG tracings: available for review Prior: Unchanged Discharge Plan Dx/Rx/DC Orders Clinical Impression: Acute dyspnea, Ischemic cardiomyopathy, Diabetes mellitus, Chronic kidney disease, stage 3a, Hypoxia, Congestive heart failure, Edema, peripheral, Anemia in chronic illness Disposition Disposition: Acute Care Hospital [facility]
--- NOTE | 2022-06-05 10:30 | RAD_ITS ---
STUDY: X-RAY CHEST REASON FOR EXAM: Male, 52 years old. Chest pain TECHNIQUE: Single AP portable view of the chest. COMPARISON: Comparison is made with prior study 04/07/2022. FINDINGS: EKG electrodes are seen. There is evidence of CHF. There is no demonstrated pleural abnormality. There is moderate cardiac enlargement. A pericardial effusion should be ruled out. Normal mediastinum and paula. Normal visualized pulmonary arteries. Normal visualized aortic arch and descending thoracic aorta. Normal visualized thoracic spine. Normal visualized ribs, clavicles, and shoulders. There is no demonstrated abnormality of the visualized soft tissue structures of the upper abdomen. RAD/Chest 1 View (Portable) IMPRESSION: Cardiomegaly and CHF. A pericardial effusion should be ruled out. Electronically Signed: Dario Ponce MD at 10:50 [facility] ,
--- NOTE | 2022-06-05 10:30 | EKG12_ITS ---
Test Reason : Blood Pressure : / mmHG Vent. Rate : 065 BPM Atrial Rate : 065 BPM P-R Int : 186 ms QRS Dur : 118 ms QT Int : 436 ms P-R-T Axes : 041 051 143 degrees QTc Int : 453 ms Normal sinus rhythm Possible Inferior infarct , age undetermined Abnormal ECG Confirmed by DANNY NUNEZ, CHAPARRO ([id number]), non linear editor ISRAEL MALIK ([id number]) on 06/06/2022 9:52:48 AM Referred By: BALA Confirmed By:CHAPARRO DELGADO MD
[2022-06-05 10:32] LABS: Absolute Lymphocyte Count 0.57 X10^3/uL (0.83-4.51); Absolute Neutrophil Count 5.2 X10^3/uL (2.0-7.7); Basophil# 0.03 X10^3/uL; Basophil% 0.5 % (0-1); Differential Indicated SCAN CRITERIA MET; Eosinophil# 0.11 X10^3/uL; Eosinophils% 1.7 % (0-5); Hematocrit 28.6 % (40-54); Hemoglobin 8.4 g/dL (13.0-16.5); Lymphocyte # 0.57 X10^3/ul (0.83-4.51); Lymphocyte % 8.9 % (19-41); Mean Corp Hgb Conc 29.4 g/dL (32-36); Mean Corpuscular Hgb 26.3 pg (27.0-32.0); Mean Corpuscular Volume 89.4 fL (80-94); Mean Platelet Vol. 10.9 fl (6.2-12.0); Monocyte# 0.53 X10^3/uL; Monocyte% 8.3 % (0-10); NRBC Flagged by Analyzer 0 % (0-5); Neutrophil # 5.16 X10^3/uL (2.7-7.7); Neutrophil % 80.3 % (47-70); POSITIVE DIFFERENTIAL YES; Platelet Count 209 K/mm3 (150-450); RBC Distribution Width CV 17.3 % (11.6-14.6); RBC Distribution Width SD 56.4 fl (35.1-43.9); White Blood Count 6.4 K/mm3 (4.4-11.0)
[2022-06-05 10:53] LABS: Anion Gap 4 (5-15); BUN 78 mg/dL (7-18); BUN/Creat Ratio 22.8 RATIO (10-20); Calcium,Total 8.6 mg/dL (8.5-10.1); Chloride 111 mmol/L (98-107); Creatinine, Serum 3.42 mg/dL (0.70-1.30); EST Glomerular Filtration Rate 20 mL/min (>60); Est Glom Filt Rate - Afr Amer 24 mL/min (>60); Glucose 295 mg/dL (74-106); Potassium 5.2 mmol/L (3.5-5.1); Sodium Level 142 mmol/L (136-145); Troponin-I HS 18 pg/mL (3.0-78.0)
[2022-06-05 10:55] LABS: Hypochromasia 1+
[2022-06-05 11:02] LABS: BNP,B-Type NATRIURETIC PEPTIDE 844.7 pg/mL (0-100)
[2022-06-05] MEDS: Furosemide 40 MG/4 ML Vial IV (13:29)
[2022-06-05 16:50] LABS: Bedside Glucose 210 mg/dL (74-106)
[2022-06-05] MEDS: Insulin Lispro 100 UNIT/ML INSULN.PEN SC ×2 (17:11→22:52)
--- NOTE | 2022-06-05 19:19 | HP.PCM.HOS_ITS ---
HPI - General General Date of Admission: 06/05/22 Date of Service: 06/05/22 Chief Complaint: Shortness of breath, lower extremity edema HPI Narrative YOSEPH PERSAUD, is a 52 M who presents to the emergency room at [facility] with complaints of increased shortness of breath and lower extremity edema for at least 2 weeks. He had been seen at an urgent care today for these complaints and sent in for further evaluation into the emergency room. Patient has a history of chronic kidney disease and follows with Dr. Akbar he also sees Dr. Bey for cardiology. Patient's echocardiogram performed in March 2022 shows an estimated ejection fraction of 45%. Patient appears to have an ischemic cardiomyopathy. Patient tells this examiner he has a history of coronary artery disease and has had stents placed in the past by Dr. Franks here at the hospital. Work-up in the emergency room included a chest x-ray which showed evidence of congestive heart failure, patient's beta nitric peptide was elevated, he requ ired 2 L of oxygen via nasal cannula to maintain his pulse ox above 90%, CBC was remarkable for hemoglobin of 8.4, patient's chemistry panel was remarkable for potassium of 5.2, chloride of 111, creatinine 3.42, and BUN of 78. Patient's troponin was unremarkable, beta natruretic peptide was elevated at 844. Patient will be admitted to PCU for acute on chronic diastolic congestive heart failure, he will be placed on a Lasix drip, I briefly talked with nephrology about his care-I do not think is necessary for nephrology to see the patient at this time but I will be monitoring the patient's BMP on a daily basis. [facility] Medical History Atherosclerotic heart disease of [place] coronary artery without angina pectoris Carotid artery stenosis Chronic diastolic (congestive) heart failure Chronic kidney disease Chronic kidney disease Chronic kidney disease, stage 3a Coronary artery disease Depression Diabetes mellitus Diabetes mellitus with diabetic polyneuropathy Diabetes mellitus, type II Diabetic infection of left foot Essential (primary) hypertension History of non-ST elevation myocardial infarction (NSTEMI) (03/15/20) History of stress test Hyperlipidemia Hyperlipidemia Hypertension Hypertension Hypomagnesemia Infected sebaceous cyst Ischemic cardiomyopathy (06/2013) Left ventricular systolic dysfunction (LVSD) Non-pressure 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 of bone Non-pressure chronic ulcer of other part of left foot with fat layer exposed Non-pressure chronic ulcer of other part of left foot with fat layer exposed Obesity Paresthesias Partial nontraumatic amputation of right foot Pneumonia due to COVID-19 virus (03/14/20) Type 2 diabetes mellitus with diabetic neuropathy, unspecified Type 2 diabetes mellitus with diabetic polyneuropathy Type 2 diabetes mellitus with foot ulcer Venous insufficiency Home Medications aspirin 81 mg chewable tablet 81 mg PO DAILY@0800 heart 09/28/14 [History Last Taken 12/20/18] atorvastatin 80 mg tablet 80 mg PO QHS cholesterol 30 days #30 tabs 06/21/21 [Rx Last Taken Unknown] clopidogrel 75 mg tablet 75 mg PO DAILY Blood Thinner 30 days #30 tabs 06/21/21 [Rx Last Taken Unknown] insulin glargine 100 unit/mL (3 mL) subcutaneous pen (Lantus Solostar U-100 Insulin) 20 unit (0.2 mL) subcut BID Diabetes 30 days #12 mL 06/21/21 [Rx Last Taken Unknown] isosorbide mononitrate 60 mg tablet,extended release 24 hr 60 mg PO DAILY Heart 30 days #30 tabs 01/12/22 [Rx Last Taken Unknown] ezetimibe 10 mg tablet 10 mg PO DAILY cholesterol 04/07/22 [History Last Taken Unknown] hydralazine 100 mg tablet 100 mg PO TID #270 tabs 04/26/22 [Rx Last Taken Unknown] carvedilol 25 mg tablet 25 mg PO BID #180 tabs 05/25/22 [Rx Last Taken Unknown] amlodipine 5 mg tablet 5 mg PO DAILY . 06/05/22 [History Last Taken Unknown] losartan 25 mg tablet 25 mg PO DAILY . 06/05/22 [History Last Taken Unknown] metoprolol succinate 100 mg tablet,extended release 24 hr 100 mg PO DAILY . 06/05/22 [History Last Taken Unknown] Allergy/AdvReac Type Severity Reaction Status Date / Time lisinopril AdvReac Intermediate Cough Verified 06/05/22 09:57 losartan AdvReac Intermediate cough Verified 06/05/22 09:57 Family History Father , Age 57 from [place] Myocardial infarction CAD (coronary artery disease) Sudden cardiac Mother Sick sinus syndrome Sister Diabetes Surgical History H/O cardiac catheterization History of coronary artery stent placement (01/02/19) Social History household members: none Smoking Status: Never smoker alcohol intake: current alcohol intake frequency: holidays/special occasions only substance use type: does not use caffeine: Yes Type: carbonated beverages Number of servings: 2 ROS Constitutional Constitutional: Denies anorexia, change in weight, chills, fatigue, fever(s), malaise, night sweats or weakness Eyes Eyes: Denies blurry vision, change in vision, discharge from eye(s) or eye pain ENT HEENT: Denies abnormal hearing, dysphagia or headache(s) Cardiovascular Cardiovascular: Reports dyspnea on exertion, edema, orthopnea and other Details: Patient complains of a 30 pound weight gain-he is nonspecific over what timeframe this weight gain has occurred ; Denies chest pain, claudication or palpitations Respiratory/Chest Respiratory/Chest: Reports dyspnea, shortness of breath at rest and shortness of breath with exertion; Denies cough, hemoptysis or productive cough Gastrointestinal Gastrointestinal: Denies abdominal pain, coffee ground emesis, constipation, diarrhea, dyspepsia, hematemesis, hematochezia, melena, nausea or vomiting Genitourinary Genitourinary: Denies difficulty urinating, dysuria, hematuria, nocturia, urinary frequency, urinary hesitancy, urinary incontinence or urinary urgency Musculoskeletal Musculoskeletal: Denies back pain, joint pain, joint stiffness, joint swelling, myalgias or neck pain Neurologic Neurologic: Denies abnormal gait, abnormal speech, confusion, disequilibrium, dizziness, focal weakness, headache(s), loss of vision, numbness, other visual disturbances, paresthesias, syncope or tingling Psychiatric Psychiatric: Denies anxiety, cognitive impairment, depression, irritability, mood swings or suicidal ideation Endocrine Endocrinology: Denies change in body appearance, cold intolerance, excessive sweating, heat intolerance, polydipsia or polyuria Hematologic/Lymphatic Hematologic/Lymphatic: Denies none, anemia, easy bleeding, easy bruising or lymphadenopathy Allergic/Immunologic Allergic/Immunologic: Denies rhinitis, urticaria, eczemia or asthma Vital Signs Vital Signs Vital Signs: 06/05/22 09:53 06/05/22 09:58 06/05/22 10:21 Temperature 97.6 F L Temperature Source Temporal Pulse Rate 71 Respiratory Rate 22 H Respiratory Effort Short of Breath Respiratory Depth Respiratory Pattern Normal Blood Pressure 135/70 H Blood Pressure Mean 91 Blood Pressure Source Blood Pressure Position Blood Pressure Location Pulse Ox 88 94 Oxygen Delivery Method Room Air Nasal Cannula Oxygen Flow Rate (L/min) 2 06/05/22 13:31 06/05/22 15:38 06/05/22 16:11 Temperature 97.7 F L 97.9 F Temperature Source Oral Oral Pulse Rate 65 64 Respiratory Rate 20 H 16 Respiratory Effort Normal Respiratory Depth Normal Respiratory Pattern Normal Blood Pressure 156/76 H 156/85 H Blood Pressure Mean 102 108 Blood Pressure Source Monitor Blood Pressure Position Semi-Fowlers Blood Pressure Location Right Arm Pulse Ox 93 94 Oxygen Delivery Method Nasal Cannula Nasal Cannula Nasal Cannula Oxygen Flow Rate (L/min) 2 2 2 06/05/22 16:49 Temperature Temperature Source Pulse Rate 67 Respiratory Rate Respiratory Effort Respiratory Depth Respiratory Pattern Blood Pressure Blood Pressure Mean Blood Pressure Source Blood Pressure Position Blood Pressure Location Pulse Ox Oxygen Delivery Method Oxygen Flow Rate (L/min) Weight Weight: 148.325 kg Body Mass Index (BMI) 45.6 Physical Exam Const alert, oriented x3 and no apparent distress Constitutional Narrative: Patient appears older than his stated age, he is morbidly obese General Appearance: cooperative, well kempt and well developed Orientation / Consciousness: awake, oriented to person, oriented to place and oriented to time HEENT normocephalic, head/scalp atraumatic, hearing grossly normal bilaterally and moist oral mucous membranes Eyes PERRL, EOMs intact bilaterally and conjunctivae normal Neck supple, no JVD, thyroid normal and no carotid bruits General: trachea midline Resp normal respiratory effort, no retractions and no use of accessory muscles Resp Narrative: Decreased breath sounds are noted bilaterally Auscultation: Negative for rales, rhonchi or wheezes Cardio regular rate, regular rhythm, S1 normal heart sound, S2 normal heart sound, no murmurs, no rub and no gallops GI normal to inspection, nondistended, normoactive bowel sounds, soft to palpation, non-tender and non-distended Extremity Extremity Narrative: Patient has severe edema of both lower legs-there are no vesicular eruptions noted however, there is no leakage of fluid from the lower legs. 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 Skin Skin Narrative: There is an open area on the lateral aspect of the patient's right foot as noted above, no drainage is noted from the area, margins are regular Neuro oriented x3, CN's II-XII intact bilaterally, no focal motor deficits and no se nsory deficits noted Sensorium / Orientation: awake, alert, oriented to person, oriented to place and oriented to time Speech: speech normal Psych affect normal Results Lab / Micro Data Result Diagrams: 06/05/22 10:05 06/05/22 10:05 Labs: Laboratory Results - last 24 hr 06/05/22 10:05: WBC 6.4, RBC 3.20 L, Hgb 8.4 L, Hct 28.6 L, MCV 89.4, MCH 26.3 L , MCHC 29.4 L, RDW Std Deviation 56.4 H, RDW Coeff of Rajendra 17.3 H, Plt Count 209, MPV 10.9, Immature Gran % (Auto) 0.300, Neut % (Auto) 80.3 H, Lymph % (Auto) 8.9 L, Christian % (Auto) 8.3, Eos % (Auto) 1.7, Baso % (Auto) 0.5, Absolute Neuts (auto) 5.2, Absolute Lymphs (auto) 0.57 L, Nucleated RBC % 0, Hypochromasia 1+ 06/05/22 10:05: Sodium 142, Potassium 5.2 H, Chloride 111 H, Carbon Dioxide 27.0, Anion Gap 4 L, BUN 78 H, Creatinine 3.42 H, Estim Creat Clear Calc 26.30, Est GFR (MDRD) Af Amer 24 L, Est GFR (MDRD) Non-Af 20 L, BUN/Creatinine Ratio 22.8 H, Glucose 295 H, Calcium 8.6, Troponin I High Sens 18 06/05/22 10:05: B-Natriuretic Peptide 844.7 H 06/05/22 15:36: POC Glucose 210 H Rhythm Strip Rhythm Strip: Sinus Rhythm Rate: 65 Ectopy: None Radiology Impression Chest X-Ray 06/05/22 10:30 IMPRESSION: Cardiomegaly and CHF. A pericardial effusion should be ruled out. Electronically Signed: Dario Ponce MD at 10:50 EST , Assessment & Plan Assessment/Plan (1) Congestive heart failure: PLAN: Plan 1. Acute on chronic diastolic congestive heart failure-patient will be admitted to PCU, he will be placed on IV Lasix drip, his labs will be monitored, other adjustments in his cardiac medications may need to be performed, I do not feel the patient needs an echocardiogram done at this time. It appears that the patient has been off diuretics for at least several weeks. In April of this year his creatinine had bumped up into the 4 range, at that time I believe his diuretics were stopped according to nephrology. #2 hypoxia secondary to #1-patient's pulse ox will be monitored, he is currently on low-flow nasal cannula oxygen #3 chronic kidney disease stage IIIa-labs will be monitored, I do not feel the patient needs to see nephrology at the present time. #4 ischemic cardiomyopathy-complicates care, medical course, recovery, and prognosis #5 type 2 diabetes-patient's blood sugars will be monitored, sliding scale insulin will be used, patient will remain on his home medications for diabetes #6 ulceration of the patient's right foot on the lateral aspect-etiology unclear, could be due to friction from footwear, I will have the wound nurse see the patient tomorrow, patient states he does not go to the wound care center. #7 hyperlipidemia-patient will remain on his statin #8 morbid obesity-complicates care, medical course, recovery, and prognosis #9 essential hypertension-patient will continue on his home blood pressure medications #10 coronary artery disease-patient will remain on his present medications #11 anemia-etiology unclear, I will order iron studies Total clinical time spent by myself addressing the patient's medical issues, reviewing all his data, and collaborating with patient's care team: 75 minutes Charges/Coding Visit Charges Inpatient E&M: 19820 Init Hosp L3
[2022-06-05] MEDS: Carvedilol 25 MG Tablet PO (20:36)
[2022-06-05] MEDS: Heparin Injection (Vial) 5,000 UNIT/ML VIAL 5000 UNIT SC (20:36)
[2022-06-05] MEDS: Atorvastatin Calcium 80 MG Tablet PO (20:36)
[2022-06-05] MEDS: hydrALAZINE 50 MG Tablet 100 MG PO (20:36)
--- NOTE | 2022-06-05 20:39 | NURSING ---
pt requesting medication early
[2022-06-05] MEDS: Furosemide 500 MG in Empty Viaflex 50 mL 1 EACH CONT INF (20:51)
[2022-06-05] MEDS: Insulin Glargine-YFGN 100 UNIT/ML Pen 20 UNIT SC (22:51)
[2022-06-05 23:10] LABS: Bedside Glucose 189 mg/dL (74-106)
[2022-06-06 03:02] VITALS: BP 150/75; PULSE 62; RESP 17; TEMP 36.8; O2SAT 95
[2022-06-06 03:50] VITALS: BMI 45.4
[2022-06-06 06:35] LABS: Anion Gap 5 (5-15); BUN 74 mg/dL (7-18); Calcium,Total 8.7 mg/dL (8.5-10.1); Chloride 111 mmol/L (98-107); Creatinine, Serum 3.37 mg/dL (0.70-1.30); EST Glomerular Filtration Rate 20 mL/min (>60); Est Glom Filt Rate - Afr Amer 25 mL/min (>60); Estimated Creatinine Clearance 26.69 ml/min; Glucose 130 mg/dL (74-106); Iron 34 ug/dL (65-175); Iron Binding Capacity,Total 275 ug/dL (250-450); PERCENT IRON SATURATION 12.4 % (15.0-55.0); Potassium 4.5 mmol/L (3.5-5.1); Sodium Level 144 mmol/L (136-145)
[2022-06-06 07:01] VITALS: BP 165/85; PULSE 66
[2022-06-06] MEDS: hydrALAZINE 50 MG Tablet 100 MG PO (07:01)
[2022-06-06 07:30] LABS: Bedside Glucose 134 mg/dL (74-106)
[2022-06-06 09:15] VITALS: BP 148/76; PULSE 68; RESP 18; TEMP 36.9; O2SAT 95
[2022-06-06] MEDS: Clopidogrel Bisulfate 75 MG Tablet PO (09:19)
[2022-06-06] MEDS: amLODIPine 5 MG Tablet PO (09:20)
[2022-06-06] MEDS: Isosorbide Mononitrate 60 MG Tablet PO (09:22)
[2022-06-06] MEDS: Ezetimibe 10 MG Tablet PO (09:22)
[2022-06-06] MEDS: Aspirin 81 MG TAB.CHEW PO (09:22)
[2022-06-06] MEDS: Carvedilol 25 MG Tablet PO ×2 (09:22→21:09)
[2022-06-06] MEDS: Heparin Injection (Vial) 5,000 UNIT/ML VIAL 5000 UNIT SC ×2 (09:26→21:09)
--- NOTE | 2022-06-06 09:59 | WOUNDNOTE ---
wound photo: right lateral foot
[2022-06-06 12:20] LABS: Bedside Glucose 125 mg/dL (74-106)
--- NOTE | 2022-06-06 12:50 | CASEMGMT ---
RN CM Face to Face with patient for initial transition planning/care coordination assessment. RN CM introduced self and role at [facility]. Patient lying in bed, alert and oriented. Patient willing to participate in assessment and is able to answer all questions appropriately. Care providers, pharmacy, and demographics verified. Patient wishes to discharge home, denies need for home health at this time. Patient states he has no further needs or concerns at this time. CM to follow for discharge planning needs that may arise. PCP: Rambo Specialists: Maida forging dies final finisher Preferred [facility]acy: [facility] Insurance: [employer] Prescription Benefit: yes Living Will/HPOA: none LNOK: son Living Arrangements: Patient lives with son in a single story home with 2 steps and railing to enter the home. Patient is independent at home. Transportation: self, son DME/HHC: Patient has glucometer at home. No previous HHC or SNF. Will monitor for home oxygen at discharge. No preferences for DME Disposition Plan: Patient to discharge home with family support and follow-up plans in place. Taylor ARVIZU, RN, CM
[2022-06-06 14:10] VITALS: O2SAT 92
[2022-06-06 15:24] VITALS: BP 144/74; PULSE 66; RESP 18; TEMP 36.9; O2SAT 92
[2022-06-06 17:50] LABS: Bedside Glucose 148 mg/dL (74-106)
--- NOTE | 2022-06-06 19:06 | PCM.PN.HOSP ---
Reason for Visit Reason for Visit: Diagnoses Heart failure, unspecified (06/05/22) Subjective Subjective Patient was seen and examined today, he was able to be weaned to room air today, patient has not letting nursing see his urinary output, he is just using the bathroom and flushing the commode. Patient's creatinine today appears to be stable at 3.37, BUN is 74. Objective Data Objective Data Vital Signs: Vital Signs Temp Pulse Resp BP Pulse Ox O2 Del Method O2 Flow Rate 98.4 F 66 18 144/74 H 92 Room Air 2 06/06/22 15:24 06/06/22 15:24 06/06/22 15:24 06/06/22 15:24 06/06/22 15:24 06/06/22 17:06 06/06/22 09:20 Oxygen Flow Rate (L/min) 2 Oxygen Delivery Method Room Air Weight: 147.9 kg Body Mass Index (BMI) 45.4 Intake & Output: Intake and Output for Last 24 Hours 06/04/22 06/05/22 06/06/22 23:59 23:59 23:59 Intake Total 250 / 250 900 / 900 Output Total 1425 / 1425 Balance -1175 / -1175 900 / 900 Lab / Micro Data Result Diagrams: 06/05/22 10:05 06/06/22 05:31 Labs: Laboratory Results - last 24 hr 06/05/22 22:51: POC Glucose 189 H 06/06/22 05:31: Sodium 144, Potassium 4.5, Chloride 111 H, Carbon Dioxide 28.0, Anion Gap 5, BUN 74 H, Creatinine 3.37 H, Estim Creat Clear Calc 26.69, Est GFR (MDRD) Af Amer 25 L, Est GFR (MDRD) Non-Af 20 L, BUN/Creatinine Ratio 22.0 H, Glucose 130 H, Calcium 8.7, Iron 34 L, TIBC 275, Iron Saturation 12.4 L 06/06/22 07:11: POC Glucose 134 H 06/06/22 11:56: POC Glucose 125 H 06/06/22 17:30: POC Glucose 148 H Rhythm Strip Rhythm Strip: Sinus Rhythm Rate: 65 Ectopy: None Physical Exam Narrative alert, oriented x3 and no apparent distress Constitutional Narrative: Patient appears older than his stated age, he is morbidly obese General Appearance: cooperative, well kempt and well developed Orientation / Consciousness: awake, oriented to person, oriented to place and oriented to time HEENT normocephalic, head/scalp atraumatic, hearing grossly normal bilaterally and moist oral mucous membranes Eyes PERRL, EOMs intact bilaterally and conjunctivae normal Neck supple, no JVD, thyroid normal and no carotid bruits General: trachea midline Resp normal respiratory effort, no retractions and no use of accessory muscles Resp Narrative: Decreased breath sounds are noted bilaterally Auscultation: Negative for rales, rhonchi or wheezes Cardio regular rate, regular rhythm, S1 normal heart sound, S2 normal heart sound, no murmurs, no rub and no gallops GI normal to inspection, nondistended, normoactive bowel sounds, soft to palpation, non-tender and non-distended Extremity Extremity Narrative: Patient has severe edema of both lower legs-there are no vesicular eruptions noted however, there is no leakage of fluid from the lower legs.? 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 Skin Skin Narrative: There is an open area on the lateral aspect of the patient's right foot as noted above, no drainage is noted from the area, margins are regular Neuro oriented x3, CN's II-XII intact bilaterally, no focal motor deficits and no sensory deficits noted Sensorium / Orientation: awake, alert, oriented to person, oriented to place and oriented to time Speech: speech normal Psych affect normal Assessment & Plan Assessment/Plan (1) Congestive heart failure: PLAN: Plan 1. Acute on chronic diastolic congestive heart failure-continue IV diuresis, no medication changes today #2 hypoxia secondary to #1-patient has been weaned off oxygen at this time #3 chronic kidney disease stage IIIa-labs will be monitored. 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-wound care nurse is seeing patient #7 hyperlipidemia-patient will remain on his statin #8 morbid obesity-complicates care, medical course, recovery, and prognosis #9 essential hypertension-patient will continue on his home blood pressure medications, patient told me today he is not taking hydralazine at home, he states he was taken off this medication sometime ago, it was stopped today #10 coronary artery disease-patient will remain on his present medications #11 anemia-patient's iron level was 34, he appears to have iron deficiency anemia, I will place him on an iron supplement Total clinical time spent by myself addressing the patient's medical issues, reviewing all his data, and collaborating with patient's care team: 50 minutes Charges/Coding Visit Charges Inpatient E&M: 79602 Subs Hosp L2
[2022-06-06 21:07] VITALS: BP 158/76; PULSE 73; RESP 18; TEMP 36.9; O2SAT 94
[2022-06-06] MEDS: Atorvastatin Calcium 80 MG Tablet PO (21:09)
[2022-06-06] MEDS: Insulin Glargine-YFGN 100 UNIT/ML Pen 20 UNIT SC (21:14)
[2022-06-06] MEDS: Insulin Lispro 100 UNIT/ML INSULN.PEN SC (21:15)
[2022-06-06 22:35] LABS: Bedside Glucose 198 mg/dL (74-106)
[2022-06-06] MEDS: Furosemide 500 MG in Empty Viaflex 50 mL 1 EACH CONT INF (22:35)
[2022-06-07] VITALS (10 sets, daily range): BP systolic 140–157; BP diastolic 67–80; PULSE 64–75; RESP 16–20; TEMP 36.4–37.2; O2SAT 76–100; BMI 44.1
[2022-06-07 05:29] LABS: Anion Gap 7 (5-15); BUN 83 mg/dL (7-18); BUN/Creat Ratio 24.5 RATIO (10-20); Calcium,Total 8.8 mg/dL (8.5-10.1); Chloride 108 mmol/L (98-107); Creatinine, Serum 3.39 mg/dL (0.70-1.30); EST Glomerular Filtration Rate 20 mL/min (>60); Est Glom Filt Rate - Afr Amer 25 mL/min (>60); Estimated Creatinine Clearance 26.53 ml/min; Glucose 118 mg/dL (74-106); Sodium Level 143 mmol/L (136-145)
[2022-06-07 07:06] LABS: Bedside Glucose 102 mg/dL (74-106)
[2022-06-07] MEDS: amLODIPine 5 MG Tablet PO (08:16)
[2022-06-07] MEDS: Clopidogrel Bisulfate 75 MG Tablet PO (08:16)
[2022-06-07] MEDS: Ezetimibe 10 MG Tablet PO (08:16)
[2022-06-07] MEDS: Carvedilol 25 MG Tablet PO ×2 (08:17→22:01)
[2022-06-07] MEDS: Isosorbide Mononitrate 60 MG Tablet PO (08:17)
[2022-06-07] MEDS: metOLazone 5 MG Tablet PO ×2 (08:18→16:20)
[2022-06-07] MEDS: Aspirin 81 MG TAB.CHEW PO (08:18)
[2022-06-07 11:41] LABS: Bedside Glucose 125 mg/dL (74-106)
[2022-06-07] MEDS: Ferrous Sulfate 325 MG Tablet PO ×2 (12:31→16:20)
--- NOTE | 2022-06-07 15:22 | CASEMGMT ---
Patient has a Healthcare Power of Honing Machine Set Up Operator Tool and a Healthcare Living Will on file at [facility]. Patient's son Juan A is his Healthcare Power of Honing Machine Set Up Operator Tool. Georgiana MOHAMUD
[2022-06-07] MEDS: Insulin Lispro 100 UNIT/ML INSULN.PEN SC ×2 (16:20→22:00)
[2022-06-07 16:40] LABS: Bedside Glucose 184 mg/dL (74-106)
--- NOTE | 2022-06-07 17:18 | PN.HOSP_ITS ---
Reason for Visit Reason for Visit: Diagnoses Heart failure, unspecified (06/05/22) Subjective Subjective Patient was seen and examined today, he remains on room air at this time, he still has noticeable edema over his lower extremities. Objective Data Objective Data Vital Signs: Vital Signs Temp Pulse Resp BP Pulse Ox O2 Del Method O2 Flow Rate 97.9 F 69 18 140/68 H 95 Room Air 2 06/07/22 16:14 06/07/22 16:14 06/07/22 16:14 06/07/22 16:14 06/07/22 16:14 06/07/22 16:14 06/07/22 06:08 Oxygen Flow Rate (L/min) 2 Oxygen Delivery Method Room Air Weight: 143.5 kg Body Mass Index (BMI) 44.1 Intake & Output: Intake and Output for Last 24 Hours 06/05/22 06/06/22 06/07/22 23:59 23:59 23:59 Intake Total 250 / 250 925.73 / 1225.73 1100 / 1100 Output Total 1425 / 1425 5025 / 5025 Balance -1175 / -1175 925.73 / 25.73 -3925 / -3925 Lab / Micro Data Result Diagrams: 06/05/22 10:05 06/07/22 03:58 Labs: Laboratory Results - last 24 hr 06/06/22 17:30: POC Glucose 148 H 06/06/22 21:14: POC Glucose 198 H 06/07/22 03:58: Sodium 143, Potassium 4.0, Chloride 108 H, Carbon Dioxide 28.0, Anion Gap 7, BUN 83 H, Creatinine 3.39 H, Estim Creat Clear Calc 26.53, Est GFR (MDRD) Af Amer 25 L, Est GFR (MDRD) Non-Af 20 L, BUN/Creatinine Ratio 24.5 H, Glucose 118 H, Calcium 8.8 06/07/22 06:35: POC Glucose 102 06/07/22 11:08: POC Glucose 125 H 06/07/22 16:18: POC Glucose 184 H Rhythm Strip Rhythm Strip: Sinus Rhythm Rate: 65 Ectopy: None Physical Exam Narrative alert, oriented x3 and no apparent distress Constitutional Narrative: Patient appears older than his stated age, he is morbidly obese General Appearance: cooperative, well kempt and well developed Orientation / Consciousness: awake, oriented to person, oriented to place and oriented to time HEENT normocephalic, head/scalp atraumatic, hearing grossly normal bilaterally and moist oral mucous membranes Eyes PERRL, EOMs intact bilaterally and conjunctivae normal Neck supple, no JVD, thyroid normal and no carotid bruits General: trachea midline Resp normal respiratory effort, no retractions and no use of accessory muscles Resp Narrative: Decreased breath sounds are noted bilaterally Auscultation: Negative for rales, rhonchi or wheezes Cardio regular rate, regular rhythm, S1 normal heart sound, S2 normal heart sound, no murmurs, no rub and no gallops GI normal to inspection, nondistended, normoactive bowel sounds, soft to palpation, non-tender and non-distended Extremity Extremity Narrative: Patient has severe edema of both lower legs-there are no vesicular eruptions noted however, there is no leakage of fluid from the lower legs.? 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 Skin Skin Narrative: There is an open area on the lateral aspect of the patient's right foot as noted above, no drainage is noted from the area, margins are regular Neuro oriented x3, CN's II-XII intact bilaterally, no focal motor deficits and no sensory deficits noted Sensorium / Orientation: awake, alert, oriented to person, oriented to place and oriented to time Speech: speech normal Psych affect normal Assessment & Plan Assessment/Plan (1) Congestive heart failure: PLAN: Plan 1. Acute on chronic diastolic congestive heart failure-continue IV diuresis, no medication changes today #2 hypoxia secondary to #1-patient has been weaned off oxygen at this time #3 chronic kidney disease stage IIIa-labs will be monitored. 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-wound care nurse is seeing patient #7 hyperlipidemia-patient will remain on his statin #8 morbid obesity-complicates care, medical course, recovery, and prognosis #9 essential hypertension-patient will continue on his home blood pressure medications #10 coronary artery disease-patient will remain on his present medications #11 anemia-patient's iron level was 34, he appears to have iron deficiency a nemia, patient is on iron supplementation Total clinical time spent by myself addressing the patient's medical issues, reviewing all his data, and collaborating with patient's care team: 35 minutes Charges/Coding Visit Charges Inpatient E&M: 93511 Subs Hosp L2
[2022-06-07] MEDS: Heparin Injection (Vial) 5,000 UNIT/ML VIAL 5000 UNIT SC (22:01)
[2022-06-07] MEDS: Insulin Glargine-YFGN 100 UNIT/ML Pen 20 UNIT SC (22:01)
[2022-06-07] MEDS: Atorvastatin Calcium 80 MG Tablet PO (22:02)
[2022-06-07 22:25] LABS: Bedside Glucose 193 mg/dL (74-106)
[2022-06-08 03:44] VITALS: BP 145/72; PULSE 68; RESP 14; TEMP 36.8; O2SAT 93
[2022-06-08 06:00] VITALS: BMI 42.0
[2022-06-08 06:49] LABS: Anion Gap 8 (5-15); BUN 86 mg/dL (7-18); BUN/Creat Ratio 24.3 RATIO (10-20); Calcium,Total 9.1 mg/dL (8.5-10.1); Chloride 103 mmol/L (98-107); Creatinine, Serum 3.54 mg/dL (0.70-1.30); EST Glomerular Filtration Rate 19 mL/min (>60); Est Glom Filt Rate - Afr Amer 23 mL/min (>60); Estimated Creatinine Clearance 25.41 ml/min; Glucose 111 mg/dL (74-106); Potassium 3.8 mmol/L (3.5-5.1); Sodium Level 141 mmol/L (136-145)
[2022-06-08 07:40] LABS: Bedside Glucose 118 mg/dL (74-106)
[2022-06-08 08:35] VITALS: BP 139/73; PULSE 65; RESP 18; TEMP 36.6; O2SAT 96
[2022-06-08] MEDS: metOLazone 5 MG Tablet PO (08:38)
[2022-06-08] MEDS: Ezetimibe 10 MG Tablet PO (08:38)
[2022-06-08] MEDS: Carvedilol 25 MG Tablet PO (08:39)
[2022-06-08] MEDS: Isosorbide Mononitrate 60 MG Tablet PO (08:39)
[2022-06-08] MEDS: Aspirin 81 MG TAB.CHEW PO (08:39)
[2022-06-08] MEDS: amLODIPine 5 MG Tablet PO (08:39)
[2022-06-08] MEDS: Clopidogrel Bisulfate 75 MG Tablet PO (08:39)
[2022-06-08] MEDS: Heparin Injection (Vial) 5,000 UNIT/ML VIAL 5000 UNIT SC (08:41)
[2022-06-08 09:31] VITALS: O2SAT 95; O2SAT 96
--- NOTE | 2022-06-08 10:11 | DCINST_ITS ---
Discharge Instructions Diet Discharge Diet: 1800 Calorie Control Diet Activity Discharge Activity: Return to Normal Activity Weight Bearing Status: Full weight bearing Follow Up Care Test Results: Test results from this visit will be discussed in further detail at your follow- up appointment, if applicable. Discharge Plan Admission Admit Date/Time: 06/05/22 15:29 Primary Reason for Your Visit: CHF, hypoxia Attending Provider: Giuseppe Oliver Primary Care Provider: Joseph Ricks Instructions Additional Instructions / Restrictions: Follow up with wound care Discharge Orders/Prescriptions Prescriptions: New ferrous sulfate [FeroSul] 325 mg (65 mg iron) Tablet 325 mg PO BID Qty: 60 0RF furosemide [Lasix] 20 mg tablet 20 mg PO BID Qty: 180 0RF Continued aspirin 81 MG tablet,chewable 81 mg PO DAILY@0800 Label Comments: HEART HEALTH atorvastatin 80 MG tablet 80 mg PO QHS 30 Days Qty: 30 0RF clopidogrel 75 MG tablet 75 mg PO DAILY 30 Days Qty: 30 0RF insulin glargine [Lantus Solostar U-100 Insulin] 100 unit/mL (3 mL) insulin pen 20 unit subcut BID 30 Days Qty: 12 0RF Rx Instructions: Takes if Blood sugar > 150 ezetimibe 10 mg tablet 10 mg PO DAILY Label Comments: TAKE 1 TABLET BY MOUTH EVERY DAY amlodipine 5 mg tablet 5 mg PO DAILY Label Comments: TAKE ONE TABLET BY MOUTH DAILY isosorbide mononitrate 60 mg tablet extended release 24 hr 60 mg PO DAILY 30 Days Qty: 30 11RF Rx Instructions: please refill now carvedilol 25 mg tablet 25 mg PO BID Qty: 180 3RF Rx Instructions: must administer with a meal/food Discontinued metoprolol succinate 100 mg tablet extended release 24 hr 100 mg PO DAILY Label Comments: TAKE 1 TABLET BY MOUTH EVERY DAY losartan 25 mg tablet 25 mg PO DAILY Label Comments: TAKE 1 TABLET BY MOUTH EVERY DAY Referrals / Follow Up: Francisco Akbar MD [Med Staff - Consulting] - Within 2 Weeks Joseph Ricks MD [Primary Care Provider] - 06/15/22 10:00 am Disposition Disposition (needs filled in before D/C Order can be placed): Home, Self Care
--- NOTE | 2022-06-08 10:58 | PCM.DC.SUM ---
Providers Date of Admission: 06/05/22 Date of Discharge: 06/08/22 Primary Care Physician: Dr. Joseph Ricks MD Consultations 06/05/22 16:09 Consult: Onc/Wound/deputy county counsel Routine Comment: Reason for Consult:: right foot wound 06/05/22 20:14 Consult: Onc/Wound/deputy county counsel Routine Comment: Reason for Consult:: right foot wound Reason For Visit: CHF / ANASARCA Diagnosis Discharge Diagnosis (1) Congestive heart failure: Status: Resolved Code(s): I50.9 - Heart failure, unspecified Plan 1. Acute on chronic diastolic (intermediate) congestive heart failure-continue IV diuresis, no medication changes today #2 hypoxia secondary to #1-patient has been weaned off oxygen at this time #3 chronic kidney disease stage IIIa-labs will be monitored. 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-wound care nurse is seeing patient #7 hyperlipidemia-patient will remain on his statin #8 morbid obesity-complicates care, medical course, recovery, and prognosis #9 essential hypertension-patient will continue on his home blood pressure medications #10 coronary artery disease-patient will remain on his present medications #11 anemia-patient's iron level was 34, he appears to have iron deficiency anemia, patient is on iron supplementation Total clinical time spent by myself addressing the patient's medical issues, reviewing all his data, and collaborating with patient's care team: 35 minutes Medications at Discharge Home Medications aspirin 81 mg chewable tablet 81 mg PO DAILY@0800 heart 09/28/14 atorvastatin 80 mg tablet 80 mg PO QHS cholesterol 30 days #30 tabs 06/21/21 clopidogrel 75 mg tablet 75 mg PO DAILY Blood Thinner 30 days #30 tabs 06/21/21 insulin glargine 100 unit/mL (3 mL) subcutaneous pen (Lantus Solostar U-100 Insulin) 20 unit (0.2 mL) subcut BID Diabetes 30 days #12 mL 06/21/21 isosorbide mononitrate 60 mg tablet,extended release 24 hr 60 mg PO DAILY Heart 30 days #30 tabs 01/12/22 ezetimibe 10 mg tablet 10 mg PO DAILY cholesterol 04/07/22 carvedilol 25 mg tablet 25 mg PO BID #180 tabs 05/25/22 amlodipine 5 mg tablet 5 mg PO DAILY . 06/05/22 ferrous sulfate 325 mg (65 mg iron) tablet (FeroSul) 325 mg PO BID #60 tabs 06/08/22 furosemide 20 mg tablet (Lasix) 20 mg PO BID #180 tabs 06/08/22 Hospital Course Operations None Procedures None Summary of Care Provided Minutes Spent on Discharge: 32 Hospital Course: This 52-year-old white male was seen in the emergency room at [facility] with complaints of severe leg edema and shortness of breath. Work-up in the emergency room revealed the patient to be in congestive heart failure, last echocardiogram was done in March 2022 and it showed an ejection fraction of 45%. Patient was noted to have severe lower extremity edema, creatinine was elevated in keeping with chronic kidney disease. Patient was admitted to PCU, he was placed on a Lasix drip and over several days the patient underwent diuresis. Patient's weight dropped and he was weaned off oxygen. On 06/07/2022, patient was seen and examined: On examination he appeared in good health and spirits. Vital signs as documented. Skin warm and dry and without overt rashes. Neck without JVD, neck was supple, trachea midline, thyroid was normal. Lungs clear bilaterally, normal air movement was noted. Heart exam notable for regular rhythm, normal sounds and absence of murmurs, rubs or gallops. Abdomen unremarkable and without evidence of organomegaly, masses, or abdominal aortic enlargement. Bowel sounds are present, abdomen is not distended. Extremities nonedematous, no cyanosis was noted, no clubbing was noted. Neuro: Cranial nerves II through XII are grossly intact, no focal motor deficits were noted, sensation to light touch and pinprick intact, motor exam 5/5 throughout. Psych: Patient is alert and oriented x3, he does not appear anxious or depressed, he does not appear agitated. Patient was felt to be stable for discharge home on 06/07/2022. Weight / BMI Weight Weight: 136.6 kg Body Mass Index (BMI) 42.0 ABG / Lab / Microbiology Data Result Diagrams: 06/05/22 10:05 06/08/22 04:28 Laboratory: Laboratory Results - last 24 hr 06/07/22 11:08: POC Glucose 125 H 06/07/22 16:18: POC Glucose 184 H 06/07/22 21:59: POC Glucose 193 H 06/08/22 04:28: Sodium 141, Potassium 3.8, Chloride 103, Carbon Dioxide 30.0, Anion Gap 8, BUN 86 H, Creatinine 3.54 H, Estim Creat Clear Calc 25.41, Est GFR (MDRD) Af Amer 23 L, Est GFR (MDRD) Non-Af 19 L, BUN/Creatinine Ratio 24.3 H, Glucose 111 H, Calcium 9.1 06/08/22 06:27: POC Glucose 118 H D/C Instructions Discharge Diet: 1800 Calorie Control Diet Weight Bearing Status: Full weight bearing Meaningful Use Info Meaningful Use Diagnoses (Choose all that apply): CHF CHF MEME/ARB ordered at discharge?: No Reason MEME/ARB not ordered?: Worsening renal disease Documented LVEF (%): 45 Discharge Plan Admission Admit Date/Time: 06/05/22 15:29 Primary Reason for Your Visit: CHF, hypoxia Attending Provider: Giuseppe Oliver Primary Care Provider: Joseph Ricks Instructions Additional Instructions / Restrictions: Follow up with wound care Discharge Orders/Prescriptions Prescriptions: New ferrous sulfate [FeroSul] 325 mg (65 mg iron) Tablet 325 mg PO BID Qty: 60 0RF furosemide [Lasix] 20 mg tablet 20 mg PO BID Qty: 180 0RF Continued aspirin 81 MG tablet,chewable 81 mg PO DAILY@0800 Label Comments: [facility] atorvastatin 80 MG tablet 80 mg PO QHS 30 Days Qty: 30 0RF clopidogrel 75 MG tablet 75 mg PO DAILY 30 Days Qty: 30 0RF insulin glargine [Lantus Solostar U-100 Insulin] 100 unit/mL (3 mL) insulin pen 20 unit subcut BID 30 Days Qty: 12 0RF Rx Instructions: Takes if Blood sugar > 150 ezetimibe 10 mg tablet 10 mg PO DAILY Label Comments: TAKE 1 TABLET BY MOUTH EVERY DAY amlodipine 5 mg tablet 5 mg PO DAILY Label Comments: TAKE ONE TABLET BY MOUTH DAILY isosorbide mononitrate 60 mg tablet extended release 24 hr 60 mg PO DAILY 30 Days Qty: 30 11RF Rx Instructions: please refill now carvedilol 25 mg tablet 25 mg PO BID Qty: 180 3RF Rx Instructions: must administer with a meal/food Discontinued metoprolol succinate 100 mg tablet extended release 24 hr 100 mg PO DAILY Label Comments: TAKE 1 TABLET BY MOUTH EVERY DAY losartan 25 mg tablet 25 mg PO DAILY Label Comments: TAKE 1 TABLET BY MOUTH EVERY DAY Referrals / Follow Up: Francisco Akbar MD [Med Staff - Consulting] - Within 2 Weeks Joseph Ricks MD [Primary Care Provider] - 06/15/22 10:00 am Disposition Disposition (needs filled in before D/C Order can be placed): Home, Self Care Charges/Coding Visit Charges Inpatient E&M: 68159 Disch Hosp >30min
[2022-06-08 10:59] VITALS: BP 139/73; PULSE 65; RESP 18; TEMP 36.6; O2SAT 96
--- NOTE | 2022-06-08 11:18 | PHA.DC.MR ---
Pharmacy Service has performed discharge medication reconciliation for this patient. Note: Prepared materials for counselling, however pt had already left floor prior to discharge counselling being performed. Prepared paperwork education for both ferrous sulfate and lasix. Home Medications aspirin 81 mg chewable tablet 81 mg PO DAILY@0800 heart 09/28/14 atorvastatin 80 mg tablet 80 mg PO QHS cholesterol 30 days #30 tabs 06/21/21 clopidogrel 75 mg tablet 75 mg PO DAILY Blood Thinner 30 days #30 tabs 06/21/21 insulin glargine 100 unit/mL (3 mL) subcutaneous pen (Lantus Solostar U-100 Insulin) 20 unit (0.2 mL) subcut BID Diabetes 30 days #12 mL 06/21/21 isosorbide mononitrate 60 mg tablet,extended release 24 hr 60 mg PO DAILY Heart 30 days #30 tabs 01/12/22 ezetimibe 10 mg tablet 10 mg PO DAILY cholesterol 04/07/22 carvedilol 25 mg tablet 25 mg PO BID #180 tabs 05/25/22 amlodipine 5 mg tablet 5 mg PO DAILY . 06/05/22 ferrous sulfate 325 mg (65 mg iron) tablet (FeroSul) 325 mg PO BID #60 tabs 06/08/22 furosemide 20 mg tablet (Lasix) 20 mg PO BID #180 tabs 06/08/22 The patient's discharge medication list was reviewed for discrepancies and discrepancies were resolved.
== END 2022-06-08 11:15 | disposition home or self-care (01) | DRG 291 ==
LOC: ED 10:54 → PCU 15:58
PROVIDERS: Admitting Provider Internal Medicine; Emergency Provider Emergency Medicine; PCP Family Medicine; Visit Provider Internal Medicine
DX: I13.0 Hypertensive heart and chronic kidney disease with heart failure and stage 1 through stage 4 chronic kidney disease, or unspecified chronic kidney disease (principal); I50.33 Acute on chronic diastolic (congestive) heart failure; Z68.42 Body mass index [BMI] 45.0-49.9, adult; L97.519 Non-pressure chronic ulcer of other part of right foot with unspecified severity; D63.1 Anemia in chronic kidney disease; E11.22 Type 2 diabetes mellitus with diabetic chronic kidney disease; E11.42 Type 2 diabetes mellitus with diabetic polyneuropathy; D50.9 Iron deficiency anemia, unspecified; Z79.4 Long term (current) use of insulin; N18.31 Chronic kidney disease, stage 3a; E66.01 Morbid (severe) obesity due to excess calories; E11.621 Type 2 diabetes mellitus with foot ulcer; E78.5 Hyperlipidemia, unspecified; I25.10 Atherosclerotic heart disease of native coronary artery without angina pectoris; I25.5 Ischemic cardiomyopathy; I25.2 Old myocardial infarction; R09.02 Hypoxemia; Z79.82 Long term (current) use of aspirin; Z79.899 Other long term (current) drug therapy; Z86.16 Personal history of COVID-19; Z95.5 Presence of coronary angioplasty implant and graft
CPT/HCPCS: 36415; 71045; 80048; 82962; 83540; 83550; 83880; 84484; 85025; 93005; 97802; 99285; A4216; J1940

== ENCOUNTER 2022-06-19 08:15 | Outpatient (RCR) | payer OTHER, SELFPAY ==
[2018-12-25 08:56] VITALS: BMI 37.9
[2022-06-15 09:58] VITALS: BP 143/62; PULSE 72; RESP 16; TEMP 36.1; BMI 41.1
--- NOTE | 2022-06-15 10:17 | WC ---
PT WILL BRING MED LIST TO NEXT VISIT.
--- NOTE | 2022-06-15 11:39 | HP.PCM_ITS ---
History of Present Illness Date of Service: 06/15/22 Chief Complaint: Right foot wound History of Wound: Mr. Sanchez is a 52-year-old well-known to the wound center who presents today due to right foot ulcer. Noted a month ago and at that time, had significant lower extremity swelling. He was seen at the hospital for his lower extremity swelling/CHF exacerbation and started on IV diuretics with some improvement in his swelling. Also had some wound care done by the wound care nurse which he continued to do at home. History of diabetes mellitus, last A1c was at 9.1. Does not routinely check his numbers at home. He feels well at this time, denies chills, fever, nausea, vomiting or change in bowel habit. [facility] Medical History (Updated 06/15/22 @ 11:[address] Luke Jeff MD) Anemia in chronic illness Atherosclerotic heart disease of [place] coronary artery without angina pectoris Carotid artery stenosis Chronic diastolic (congestive) heart failure Chronic kidney disease Chronic kidney disease Chronic kidney disease, stage 3a Coronary artery disease Depression Diabetes mellitus Diabetes mellitus with diabetic polyneuropathy Diabetes mellitus, type II Diabetic infection of left foot Edema, peripheral Essential (primary) hypertension History of non-ST elevation myocardial infarction (NSTEMI) (03/15/20) History of stress test Hyperlipidemia Hyperlipidemia Hypertension Hypertension Hypomagnesemia Infected sebaceous cyst Insulin dependent diabetes mellitus Ischemic cardiomyopathy (06/2013) Left ventricular systolic dysfunction (LVSD) Non-pressure 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 of bone Non-pressure chronic ulcer of other part of left foot with fat layer exposed Non-pressure chronic ulcer of other part of left foot with fat layer exposed Obesity Paresthesias Partial nontraumatic amputation of right foot Pneumonia due to COVID-19 virus (03/14/20) Type 2 diabetes mellitus with diabetic neuropathy, unspecified Type 2 diabetes mellitus with diabetic polyneuropathy Type 2 diabetes mellitus with foot ulcer Ulcer of right foot with fat layer exposed Venous insufficiency Venous insufficiency of both lower extremities Home Medications aspirin 81 mg chewable tablet 81 mg PO DAILY@0800 heart 09/28/14 [History Last Taken 12/20/18] atorvastatin 80 mg tablet 80 mg PO QHS cholesterol 30 days #30 tabs 06/21/21 [Rx Last Taken Unknown] clopidogrel 75 mg tablet 75 mg PO DAILY Blood Thinner 30 days #30 tabs 06/21/21 [Rx Last Taken Unknown] insulin glargine 100 unit/mL (3 mL) subcutaneous pen (Lantus Solostar U-100 Insulin) 20 unit (0.2 mL) subcut BID Diabetes 30 days #12 mL 06/21/21 [Rx Last Taken Unknown] isosorbide mononitrate 60 mg tablet,extended release 24 hr 60 mg PO DAILY Heart 30 days #30 tabs 01/12/22 [Rx Last Taken Unknown] ezetimibe 10 mg tablet 10 mg PO DAILY cholesterol 04/07/22 [History Last Taken Unknown] carvedilol 25 mg tablet 25 mg PO BID #180 tabs 05/25/22 [Rx Last Taken Unknown] amlodipine 5 mg tablet 5 mg PO DAILY . 06/05/22 [History Last Taken Unknown] ferrous sulfate 325 mg (65 mg iron) tablet (FeroSul) 325 mg PO BID #60 tabs 06/08/22 [Rx Last Taken Unknown] furosemide 20 mg tablet (Lasix) 20 mg PO BID #180 tabs 06/08/22 [Rx Last Taken Unknown] Allergy/AdvReac Type Severity Reaction Status Date / Time lisinopril AdvReac Intermediate Cough Verified 06/15/22 10:16 losartan AdvReac Intermediate cough Verified 06/15/22 10:16 Family History Father , Age 57 from [place] Myocardial infarction CAD (coronary artery disease) Sudden cardiac Mother Sick sinus syndrome Sister Diabetes Surgical History H/O cardiac catheterization History of coronary artery stent placement (01/02/19) Social History household members: none Smoking Status: Never smoker alcohol intake: current alcohol intake frequency: holidays/special occasions only substance use type: does not use caffeine: Yes Type: carbonated beverages Number of servings: 2 ROS Constitutional Constitutional: Denies anorexia, chills, fatigue, fever(s), malaise, night sweats or weakness Eyes Eyes: Denies blurry vision, change in vision, discharge from eye(s) or eye pain ENT HEENT: Denies abnormal hearing, dysphagia or headache(s) Cardiovascular Cardiovascular: Reports dyspnea on exertion, edema and orthopnea; Denies chest pain, claudication or palpitations Respiratory/Chest Respiratory/Chest: Reports dyspnea, shortness of breath at rest and shortness of breath with exertion; Denies cough, hemoptysis or productive cough Gastrointestinal Gastrointestinal: Denies abdominal pain, coffee ground emesis, constipation, diarrhea, dyspepsia, hematemesis, hematochezia, melena, nausea or vomiting Genitourinary Genitourinary: Denies difficulty urinating, dysuria, hematuria, nocturia, urinary frequency, urinary hesitancy, urinary incontinence or urinary urgency Musculoskeletal Musculoskeletal: Denies back pain, joint pain, joint stiffness, joint swelling, myalgias or neck pain Neurologic Neurologic: Denies abnormal gait, abnormal speech, confusion, disequilibrium, dizziness, focal weakness, headache(s), loss of vision, numbness, other visual disturbances, paresthesias, syncope or tingling Psychiatric Psychiatric: Denies anxiety, cognitive impairment, depression, irritability, mood swings or suicidal ideation Endocrine Endocrinology: Denies change in body appearance, cold intolerance, excessive sweating, heat intolerance, polydipsia or polyuria Hematologic/Lymphatic Hematologic/Lymphatic: Denies anemia, easy bleeding, easy bruising or lymphadenopathy Allergic/Immunologic Allergic/Immunologic: Denies rhinitis, urticaria or eczemia Vital Signs Vital Signs Vital Signs: 06/15/22 09:58 Temperature 96.9 F L Temperature Source Temporal Pulse Rate 72 Respiratory Rate 16 Blood Pressure 143/62 H Blood Pressure Mean 89 Blood Pressure Source Monitor Blood Pressure Position Sitting Blood Pressure Location Right Arm Oxygen Delivery Method Room Air Weight Weight: 295 lb Body Mass Index (BMI) 41.1 Physical Exam Const alert, oriented x3 and no apparent distress General Appearance: cooperative and comfortable HEENT normocephalic, head/scalp atraumatic and hearing grossly normal bilaterally Eyes EOMs intact bilaterally Neck full ROM and supple General: normal visual inspection Resp normal respiratory effort and normal air movement Effort and Inspection: able to speak in complete sentences Cardio regular rate, regular rhythm, S1 normal heart sound and S2 normal heart sound GI soft to palpation and non-tender Extremity General Extremity: edema Skin Wounds: wounds noted Neuro oriented x3, CN's II-XII intact bilaterally and moves all extremities Psych mental status grossly normal, thought process normal, cooperative and affect normal Debridement Note Debridement Note Post-Debridement Measurements and Additional Note: Post-Debridement Measurements/Treatment WC - Nurse 1 - General Ulcer Assessment Start: 06/15/22 09:58 Freq: Status: Active Protocol: RADHA Activity Type Activity Date Activity User E-sign Co-sign Detail Recorded Client Recorded Date Recorded By Document 06/15/22 09:58 [facility] [id number] 06/15/22 10:14 [facility] 06/15/22 09:58 - Today's Visit Information Type of service Initial Visit Arrival Mode Ambulatory Transfer Assistance None Patient Identification Verified (Name & Yes ) Patient Requires Transmission-Based No Precautions Height and Weight Height 5 ft 11 in Weight 295 lb Weight in Pounds 295.0 lbs Body Mass Index (BMI) 41.1 BMI Classification Obese BSA - Chris 2.49 Vital Signs Temperature (97.8 F-99.1 F) 96.9 F L Temperature Source Temporal Pulse Rate (60-100) 72 Pulse Location Monitor Respiratory Rate (12-18) 16 Respiratory rate source Observation Oxygen Delivery Method Room Air Blood Pressure (90/60-120/80) 143/62 H Blood Pressure Mean 89 Source Monitor Position Sitting Blood Pressure Location Right Arm History Since Last Visit- (Skip if this is Patient's initial visit) Left Footwear Regular Shoe Right Footwear Regular Shoe Pain Scale: 0-10 Numeric Is Patient Pain Free? Yes - Nurse 1 - General Ulcer Measurement Start: 06/15/22 09:58 Freq: Status: Active Protocol: Activity Type Activity Date Activity User E-sign Co-sign Detail Recorded Client Recorded Date Recorded By Document 06/15/22 09:58 [facility] [id number] 06/15/22 10:14 [facility] 06/15/22 09:58 Wound Center Nurse 1 #5- R LAT FOOT -Combined with other wound No -Current Size (cm) - Length 0.6 -Current Size (cm) - Width 1.7 -Current Size (cm) - Depth 0.5 -Total Square Cm 1.02 -Date of Last Picture (Recall this 06/15/22 field) -Photo Taken Yes -Epithelialization None Present -Tunneling No -Undermining/Tunneling Yes -Undermining/Tunneling Starts (O'clock 7 ) -Undermining/Tunneling Ends (O'clock) 7 -Maximum Distance (cm) 0.4 -Circular Undermining No -Exudate Amt Small -Exudate Type Serosanguineous -Wound Margin Distinct, Outline Attached -Granulation Amt Small (1-33%) -Granulation Quality Red -Slough/Fibrin Yes -Necrosis Amt Large (67-100%) -Necrotic Tissue Type Adherent Slough -Texture (Cathie-wound Skin Appearance) Assessed,Callus ,Scarring -Moisture (Cathie-wound Skin Appearance) Assessed,Dry/ Scaly -Color (Cathie-wound Skin Appearance) Assessed -Temperature (Cathie-wound Skin No Abnormality Appearance) (Pt Warm) -Tenderness on Palpation (Cathie-wound No Skin Appearance) -Ulcer Cleansing Soap and Water -Foul Odor after Cleansing No -Anesthetic Used 5% Lidocaine Gel Lower Limb Edema Present Yes Right Calf (cm) 45.8 Right Ankle (cm) 30.8 Left Calf (cm) 45.7 Left Ankle (cm) 30.6 LUC - Nurse 2 - General Ulcer CM Notes Start: 06/15/22 09:58 Freq: Status: Active Protocol: Activity Type Activity Date Activity User E-sign Co-sign Detail Recorded Client Recorded Date Recorded By Document 06/15/22 10:27 [facility] [id number] 06/15/22 10:38 [facility] 06/15/22 10:27 Wound Center Nurse 2 #5- R LAT FOOT -Time 10:28 -Correct Patient Yes -Correct Side, Site, Position Yes -Correct Procedure Yes -Procedure Performed Yes -Type of Procedure Debridement -Clinical Debridement Subcutaneous -Tissue Removed Subcutaneous -Post Debridement (cm) - Length 0.6 -Post Debridement (cm) - Width 2.1 -Post Debridement (cm) - Depth 0.5 -Total Square (Post) (cm) 1.26 -Area of Debridement (cm) - Length 0.6 -Area of Debridement (cm) - Width 2.1 -Total Square (Area) (cm) 1.26 -Tunneling No -Undermining/Tunneling No -Circular Undermining No -Wound/Ulcer Outcome Not Healed -Ulcer Cleansing Rinsed/ Irrigated with Saline -Foul Odor after Cleansing No -Bioengineered Tissue No -Bleeding Controlled with Pressure -Treatment Response Procedure Tolerated Well -Offloading No -Debridement - Subq, 1st 20sq cm Yes Pain Scale: 0-10 Numeric Is Patient Pain Free? Yes - Nurse 3 - General Ulcer D/C NN Start: 06/15/22 09:58 Freq: Status: Active Protocol: Activity Type Activity Date Activity User E-sign Co-sign Detail Recorded Client Recorded Date Recorded By Document 06/15/22 10:45 DL [id number] 06/15/22 10:47 DL 06/15/22 10:45 Wound Care Center Nurse 3 #5- R LAT FOOT -Ulcer Cleansing Rinsed/ Irrigated with Saline -Foul Odor after Cleansing No -Primary Dressing Applied Aquacel Extra, NonAdherent Contact Layer, Optilok 6.5x10 -Primary Dressing Covered/Secured with Dry Gauze & Roll Gauze, Secured with Tape -Aquacel Extra 1 -Optilok 6.5x10 1 Right -Multi-Layered Wrap Application Multi-Layer Comp - Right ($ ) Treatment Response Procedure Tolerated Well Pain Scale: 0-10 Numeric Is Patient Pain Free? Yes WC - Visit Discharge Discharge Condition Stable Ambulatory Status Ambulatory Transportation Private Auto Notes: dressing applied per Adrianna King, today in clinic. Charges/Coding Visit Charges Office Visits / Consults: 94580 OV L4 Est Procedures Integumentary 111xxx-113xx: [id number] [place] subq tissue 20 sq cm/< Assessment/Plan Assessment/Plan (1) Ulcer of right foot with fat layer exposed: CODE(S): L97.512 - Non-pressure chronic ulcer of other part of right foot with fat layer exposed (2) Insulin dependent diabetes mellitus: (3) Venous insufficiency of both lower extremities: CODE(S): I87.2 - Venous insufficiency (chronic) (peripheral) (4) Chronic diastolic (congestive) heart failure: CODE(S): I50.32 - Chronic diastolic (congestive) heart failure PLAN: Plan Debridement done as documented above, procedure was well-tolerated. He states that he had some blood work done today, will request/review records. No cultures taken, no clinical concerns for infection. Aquacel extra, cover with superabsorbent dressing. 3M wrap for edema management, come in on Sunday for nurse visit/change. Optimal diabetes control, increase protein intake recommended. Elevate lower extremities when seated and in bed. His questions were answered and he was advised to call with any further questions or concerns. Follow-up with me in a week or sooner if needed. This note was generated with [employer] software. It may contain incorrect words, spelling, and punctuation that were not noted in checking the note before signing.
[2022-06-19 08:33] VITALS: BP 151/78; PULSE 84; RESP 18; TEMP 35.9; BMI 41.1
== END 2022-07-07 23:59 | disposition home or self-care (01) ==
LOC: WC 08:15
PROVIDERS: PCP Family Medicine; Referring Provider Internal Medicine; Visit Provider Internal Medicine
DX: E11.621 Type 2 diabetes mellitus with foot ulcer (principal); L97.512 Non-pressure chronic ulcer of other part of right foot with fat layer exposed; I50.42 Chronic combined systolic (congestive) and diastolic (congestive) heart failure; I13.0 Hypertensive heart and chronic kidney disease with heart failure and stage 1 through stage 4 chronic kidney disease, or unspecified chronic kidney disease; E11.59 Type 2 diabetes mellitus with other circulatory complications; E11.42 Type 2 diabetes mellitus with diabetic polyneuropathy; E11.22 Type 2 diabetes mellitus with diabetic chronic kidney disease; Z79.4 Long term (current) use of insulin; N18.31 Chronic kidney disease, stage 3a; I87.2 Venous insufficiency (chronic) (peripheral); I25.10 Atherosclerotic heart disease of native coronary artery without angina pectoris; E78.5 Hyperlipidemia, unspecified; I25.5 Ischemic cardiomyopathy; Z79.82 Long term (current) use of aspirin
CPT/HCPCS: 11042; 29581; 99213; G0463

== ENCOUNTER → 2022-08-07 | Outpatient (CLI) | payer OTHER, SELFPAY ==
[2018-12-25 08:56] VITALS: BMI 37.9
[2022-08-07 09:56] LABS: Hematocrit 33.2 % (40-54); Hemoglobin 10.1 g/dL (13.0-16.5); Mean Corp Hgb Conc 30.4 g/dL (32-36); Mean Corpuscular Hgb 25.3 pg (27.0-32.0); Mean Corpuscular Volume 83.2 fL (80-94); Mean Platelet Vol. 10.3 fl (6.2-12.0); Platelet Count 196 K/mm3 (150-450); RBC Distribution Width CV 16.8 % (11.6-14.6); RBC Distribution Width SD 50.8 fl (35.1-43.9); Red Blood Count 3.99 M/mm3 (4.6-6.2)
[2022-08-07 10:13] LABS: Protein, Urine (Random) 183.7 mg/dL (<11.9); Protein:Creat Ratio 3041 mg/g CRE (0-200)
[2022-08-07 10:20] LABS: PTHIN 265.7 pg/mL (18.4-80.1)
[2022-08-07 10:25] LABS: Vitamin D,25 Hydroxy 22.8 ng/mL
[2022-08-07 11:01] LABS: AST(SGOT) 17 U/L (15-37); Alanine Aminotransfer ALT/SGPT 19 U/L (16-61); Albumin, Serum 3.2 g/dL (3.2-5.0); Alkaline Phosphatase 89 U/L (45-117); Anion Gap 7 (5-15); BUN 101 mg/dL (7-18); BUN/Creat Ratio 31.4 RATIO (10-20); Bilirubin, Direct 0.12 mg/dL (0.00-0.30); Calcium,Total 8.9 mg/dL (8.5-10.1); Chloride 111 mmol/L (98-107); Cholesterol 173 mg/dL (200); Creatinine, Serum 3.22 mg/dL (0.70-1.30); EST Glomerular Filtration Rate 21 mL/min (>60); Est Glom Filt Rate - Afr Amer 26 mL/min (>60); Globulin 4.7 g/dL (2.2-4.2); Glucose 128 mg/dL (74-106); High Density Lipoprotein 47 mg/dL; Phosphorus 4.5 mg/dL (2.5-4.9); Potassium 4.2 mmol/L (3.5-5.1); Protein, Total 7.9 g/dL (6.4-8.2); Sodium Level 143 mmol/L (136-145); Triglycerides 104 mg/dL; Very Low Density Lipoprotein 21 mg/dL (5-40)
[2022-08-08 13:08] LABS: Anti-dsDNA Ab <1 IU/mL (0-9)
[2022-08-08 16:09] LABS: Complement C3 134 mg/dL (82-167); Cytoplasmic Ab (C-ANCA) <1:20 titer (Neg:<1:20); PROEL- A/G Ratio 0.9 (0.7-1.7); PROEL- Albumin 3.3 g/dL (2.9-4.4); PROEL- Alpha-1 Globulin 0.2 g/dL (0.0-0.4); PROEL- Alpha-2 Globulin 0.9 g/dL (0.4-1.0); PROEL- Beta Globulin 0.9 g/dL (0.7-1.3); PROEL- Gamma Globulin 1.7 g/dL (0.4-1.8); PROEL- Globulin, Total 3.8 g/dL (2.2-3.9); PROEL- TOTAL PROTEIN 7.1 g/dL (6.0-8.5); Perinuclear Ab (P-ANCA) <1:20 titer (Neg:<1:20)
== END | disposition home or self-care (01) ==
PROVIDERS: Nurse Practitioner Gerontology; PCP Family Medicine; Referring Provider Internal Medicine Nephrology; Visit Provider Internal Medicine Nephrology
DX: N18.4 Chronic kidney disease, stage 4 (severe) (principal)
CPT/HCPCS: 80048; 80061; 80076; 82306; 82570; 83970; 84100; 84156; 84165; 85027; 86160; 86225; 86256

== ENCOUNTER 2022-08-24 17:05 | Emergency (ER) | payer OTHER, SELFPAY ==
[2018-12-25 08:56] VITALS: BMI 37.9
[2022-08-24 17:06] VITALS: BP 151/77; PULSE 71; RESP 16; TEMP 36.9; O2SAT 97
[2022-08-24 17:49] VITALS: BMI 40.8
--- NOTE | 2022-08-24 17:49 | RAD_ITS ---
STUDY: X-RAY - RIGHT FOOT CLINICAL: Male, 52 years old. pain TECHNIQUE: 3 view(s) of the foot. COMPARISON: None. FINDINGS: Normal talus, calcaneus, and tarsal bones. Normal visualized subtalar, talonavicular, calcaneocuboid, tarsal and tarsometatarsal articulations. Normal metatarsi. Status post amputation at the metatarsophalangeal joint of the great toe. Normal second through fifth metatarsophalangeal joints. Normal interphalangeal joints and phalanges of the lesser toes. Soft tissue ulceration lateral to the base of the fifth metatarsal. No definitive evidence for acute osteomyelitis. RAD/Foot min 3 Views IMPRESSION: Postsurgical changes at the first MTP joint Soft tissue ulceration lateral to the fifth metatarsal base but no definitive radiographic evidence for acute diverticulitis. Electronically Signed: Jimy Kelly MD at 18:39 EDT ,
--- NOTE | 2022-08-24 17:52 | EX.ED.DYSGE1 ---
HPI History of Present Illness Chief Complaint: Abscess Narrative Narrative: 52-year-old male with foot wound on the right foot at the fifth toe. He states it started today. He states it looked normal in the shower this morning before he went to family's house. When he came home he noticed there was a wound on the top of the foot and the toe was purple. He denies any injury. He has a old wound on the lateral aspect of the foot as well. Patient denies fever, chills, nausea, vomiting. Patient states he feels otherwise well. He does have some pain associated with the wound. He states he saw Dr. Rahman in the past who amputated his first digit on the right foot. He states he does not want to see him anymore because of this. He is try to get established with a farm operator in [facility]. He states that his primary care doctor is trying to arrange this. [facility] Medical History Anemia in chronic illness Atherosclerotic heart disease of [place] coronary artery without angina pectoris Carotid artery stenosis Chronic diastolic (congestive) heart failure Chronic kidney disease Chronic kidney disease Chronic kidney disease, stage 3a Coronary artery disease Depression Diabetes mellitus Diabetes mellitus with diabetic polyneuropathy Diabetes mellitus, type II Diabetic infection of left foot Edema, peripheral Essential (primary) hypertension History of non-ST elevation myocardial infarction (NSTEMI) (03/15/20) History of stress test Hyperlipidemia Hyperlipidemia Hypertension Hypertension Hypomagnesemia Infected sebaceous cyst Insulin dependent diabetes mellitus Ischemic cardiomyopathy (06/2013) Left ventricular systolic dysfunction (LVSD) Non-pressure 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 of bone Non-pressure chronic ulcer of other part of left foot with fat layer exposed Non-pressure chronic ulcer of other part of left foot with fat layer exposed Obesity Paresthesias Partial nontraumatic amputation of right foot Pneumonia due to COVID-19 virus (03/14/20) Type 2 diabetes mellitus with diabetic neuropathy, unspecified Type 2 diabetes mellitus with diabetic polyneuropathy Type 2 diabetes mellitus with foot ulcer Ulcer of right foot with fat layer exposed Venous insufficiency Venous insufficiency of both lower extremities Home Medications aspirin 81 mg chewable tablet 81 mg PO DAILY@0800 heart 09/28/14 [History Last Taken 12/20/18] atorvastatin 80 mg tablet 80 mg PO QHS cholesterol 30 days #30 tabs 06/21/21 [Rx Last Taken Unknown] clopidogrel 75 mg tablet 75 mg PO DAILY Blood Thinner 30 days #30 tabs 06/21/21 [Rx Last Taken Unknown] insulin glargine 100 unit/mL (3 mL) subcutaneous pen (Lantus Solostar U-100 Insulin) 20 unit (0.2 mL) subcut BID Diabetes 30 days #12 mL 06/21/21 [Rx Last Taken Unknown] isosorbide mononitrate 60 mg tablet,extended release 24 hr 60 mg PO DAILY Heart 30 days #30 tabs 01/12/22 [Rx Last Taken Unknown] ezetimibe 10 mg tablet 10 mg PO DAILY cholesterol 04/07/22 [History Last Taken Unknown] carvedilol 25 mg tablet 25 mg PO BID #180 tabs 05/25/22 [Rx Last Taken Unknown] amlodipine 5 mg tablet 5 mg PO DAILY . 06/05/22 [History Last Taken Unknown] ferrous sulfate 325 mg (65 mg iron) tablet (FeroSul) 325 mg PO BID #60 tabs 06/08/22 [Rx Last Taken Unknown] furosemide 20 mg tablet (Lasix) 20 mg PO BID #180 tabs 06/08/22 [Rx Last Taken Unknown] ciprofloxacin HCl 500 mg tablet (Cipro) 500 mg PO BID #7 tabs 08/24/22 [Rx Last Taken Unknown] doxycycline monohydrate 100 mg capsule 100 mg PO BID #14 CAPSULES 08/24/22 [Rx Last Taken Unknown] Allergy/AdvReac Type Severity Reaction Status Date / Time lisinopril AdvReac Intermediate Cough Verified 08/24/22 17:08 losartan AdvReac Intermediate cough Verified 08/24/22 17:08 Family History Father , Age 57 from [place] Myocardial infarction CAD (coronary artery disease) Sudden cardiac Mother Sick sinus syndrome Sister Diabetes Surgical History H/O cardiac catheterization History of coronary artery stent placement (01/02/19) Social History household members: none Smoking Status: Never smoker alcohol intake: current alcohol intake frequency: holidays/special occasions only substance use type: does not use caffeine: Yes Type: carbonated beverages Number of servings: 2 ROS ROS ED Constitutional Constitutional ED: Denies chills, fever(s) or sweats Eyes Eyes: Denies blurry vision or change in vision ENT ENT ED: Denies ear pain or sore throat Cardiovascular Cardiovascular: Denies chest pain, palpitations or racing heartbeat Respiratory/Chest Respiratory/Chest: Denies cough, dyspnea or sputum Gastrointestinal Gastrointestinal: Denies abdominal pain, constipation, diarrhea, nausea or vomiting Genitourinary Genitourinary ED: Denies dysuria, hematuria or urinary frequency Musculoskeletal Musculoskeletal: Denies arthralgias, myalgias or neck pain Integumentary Reports other Details: Right foot wound right small toe and lateral aspect right foot ; Denies abscess or Abrasions Neurologic Neurologic: Denies headache(s), paresthesias or weakness Psychiatric Psychiatric: Denies anxiety, depression, suicidal ideation or suicidal thoughts Endocrine Endocrinology: Denies polydipsia or polyuria EXAM Physical Exam Const Vital Signs: 08/24/22 17:06 Temperature 98.4 F Temperature Source Temporal Pulse Rate 71 Respiratory Rate 16 Blood Pressure 151/77 H Blood Pressure Mean 101 Pulse Ox 97 Oxygen Delivery Method Room Air Positive obese General Appearance ED: NAD; Negative for pallor Nutritional Appearance: obese HEENT Reports moist mucous membranes Eyes PERRL and EOMs intact bilaterally Chest Wall inspection of chest normal Resp normal respiratory effort and clear to auscultation bilaterally Auscultation: Negative for rales, rhonchi or wheezes Cardio regular rate and regular rhythm Extremity Extremity Narrative: The right fifth toe is purple and edematous. There is a 2 to 3 cm wound which is open on the superior right fifth toe. There is a 2 cm circular area on the lateral aspect of the right foot as well. Both of which seem to appear old and not acute. Neuro oriented x3 and CN's II-XII intact bilaterally Sensorium / Orientation: alert Psych mental status grossly normal Skin no rashes or lesions noted General Skin Exam: Negative for jaundice or pallor MDM MDM MDM Narrative Medical decision making narrative: Patient presenting with diabetic foot wound. He has venous insufficiency as well. He is stating that he has acute injury to the right foot although this is like an old wound. He states he does not want to see Dr. rahman anymore because he did his previous surgery. It was explained to him that when you have poorly controlled diabetes and venous insufficiency that these issues do arise. After further discussion he states that he had the wound opened today but has had the wound on his foot. He has not had a fever, chills. Does not feel unwell. Obtained a CBC to assess white blood cell count, hemoglobin, platelets, differential. BMP to assess renal function, electrolytes, glucose, anion gap. CRP and ESR were obtained as well. CBC shows a slight leukocytosis at 13.8. Hemoglobin at baseline at 9.7. Platelets are normal. Creatinine at baseline at 3.96. BUN is elevated at 105 and this is where it was on his last blood work. Electrolytes normal. CRP elevated at 135. ESR elevated at 98. X-ray of the right foot does not show any evidence of osteomyelitis or fracture on my interpretation. You do see a soft tissue wound on the fifth metatarsal. I discussed this with Dr. Levine initially because the patient does not want to be seen in follow-up with Dr. Rahman and states he did not want to follow-up with his group. Since he has cellulitis and no evidence of osteomyelitis with a history of MRSA I was going to start him on antibiotics and have him follow-up with Dr. Lima since he is going to be referred to podiatry and a sound like he was post see Dr. Dial. Dr. Lima did not feel comfortable following up with the patient on an outpatient basis. I explained to him that Dr. Dial is not on-call, and the patient has not established with him and since he is resistant to seeing podiatry here we are going to try to get close follow-up with him and he could refer him to podiatry. He again did not recommend discharge. He recommended that I transfer the patient. I went and spoke to the patient and told him about the situation. At this point he said that he would see Dr. Julien he had seen him in the past. I told him that I spoke to Dr. Julien and that he recommended Cipro and doxycycline and follow-up outpatient in office tomorrow. He states that his office will reach out to him and they will evaluate him in office further. Patient was amenable to this. Dressing was placed on his foot. A wound culture was taken before he left and before he got antibiotics. Impression: 1. Right foot cellulitis Lab Data Attestation: I reviewed the patient's lab results. Labs: Laboratory Results - last 24 hr 08/24/22 08/24/22 17:20 17:20 WBC 13.8 H RBC 3.87 L Hgb 9.7 L Hct 30.3 L MCV 78.3 L MCH 25.1 L MCHC 32.0 RDW Std Deviation 45.9 H RDW Coeff of Rajendra 16.1 H Plt Count 277 MPV 10.4 Immature Gran % (Auto) 0.600 Neut % (Auto) 81.9 H Lymph % (Auto) 5.9 L [place] % (Auto) 10.4 H Eos % (Auto) 0.7 Baso % (Auto) 0.5 Absolute Neuts (auto) 11.3 H Absolute Lymphs (auto) 0.81 L Nucleated RBC % 0 ESR 98 H Sodium 136 Potassium 3.8 Chloride 106 Carbon Dioxide 23.0 Anion Gap 7 BUN 105 H* Creatinine 3.96 H Estim Creat Clear Calc 22.71 Est GFR (MDRD) Af Amer 20 L Est GFR (MDRD) Non-Af 17 L BUN/Creatinine Ratio 26.5 H Glucose 195 H Calcium 9.2 C-React Prot Ext Range 135.00 H Radiography Diagnostic Testing: Clinical Impression(s) from Imaging Studies Foot X-Ray 08/24/22 17:49 IMPRESSION: Postsurgical changes at the first MTP joint Soft tissue ulceration lateral to the fifth metatarsal base but no definitive radiographic evidence for acute diverticulitis. Electronically Signed: Jimy Kelly MD at 18:39 EDT Reading Location ID and State: [address] [place] [address] , Service support , Discharge Plan Triage Chief Complaint: Abscess ED Provider: Yan Stephenson Dx/Rx/DC Orders Instructions: ED Cellulitis Prescriptions: New ciprofloxacin HCl [Cipro] 500 mg tablet 500 mg PO BID Qty: 7 0RF doxycycline monohydrate 100 mg capsule 100 mg PO BID Qty: 14 0RF No Action aspirin 81 MG tablet,chewable 81 mg PO DAILY@0800 Label Comments: [facility] atorvastatin 80 MG tablet 80 mg PO QHS 30 Days Qty: 30 0RF clopidogrel 75 MG tablet 75 mg PO DAILY 30 Days Qty: 30 0RF insulin glargine [Lantus Solostar U-100 Insulin] 100 unit/mL (3 mL) insulin pen 20 unit subcut BID 30 Days Qty: 12 0RF Rx Instructions: Takes if Blood sugar > 150 ezetimibe 10 mg tablet 10 mg PO DAILY Label Comments: TAKE 1 TABLET BY MOUTH EVERY DAY amlodipine 5 mg tablet 5 mg PO DAILY Label Comments: TAKE ONE TABLET BY MOUTH DAILY ferrous sulfate [FeroSul] 325 mg (65 mg iron) Tablet 325 mg PO BID Qty: 60 0RF furosemide [Lasix] 20 mg tablet 20 mg PO BID Qty: 180 0RF isosorbide mononitrate 60 mg tablet extended release 24 hr 60 mg PO DAILY 30 Days Qty: 30 11RF Rx Instructions: please refill now carvedilol 25 mg tablet 25 mg PO BID Qty: 180 3RF Rx Instructions: must administer with a meal/food Primary Care Provider: Joseph Ricks Referrals: Everett Julien DPM [Med Staff - Active Staff] - 1 Day Joseph Ricks MD [Primary Care Provider] - Disposition Disposition: Home, Self Care
[2022-08-24 18:31] LABS: Absolute Lymphocyte Count 0.81 X10^3/uL (0.83-4.51); Absolute Neutrophil Count 11.3 X10^3/uL (2.0-7.7); Basophil# 0.07 X10^3/uL; Basophil% 0.5 % (0-1); Eosinophils% 0.7 % (0-5); Hematocrit 30.3 % (40-54); Hemoglobin 9.7 g/dL (13.0-16.5); Lymphocyte # 0.81 X10^3/ul (0.83-4.51); Lymphocyte % 5.9 % (19-41); Mean Corpuscular Hgb 25.1 pg (27.0-32.0); Mean Corpuscular Volume 78.3 fL (80-94); Mean Platelet Vol. 10.4 fl (6.2-12.0); Monocyte# 1.44 X10^3/uL; Monocyte% 10.4 % (0-10); NRBC Flagged by Analyzer 0 % (0-5); Neutrophil # 11.31 X10^3/uL (2.7-7.7); Neutrophil % 81.9 % (47-70); Platelet Count 277 K/mm3 (150-450); RBC Distribution Width CV 16.1 % (11.6-14.6); RBC Distribution Width SD 45.9 fl (35.1-43.9); Red Blood Count 3.87 M/mm3 (4.6-6.2); White Blood Count 13.8 K/mm3 (4.4-11.0)
[2022-08-24 18:56] LABS: Anion Gap 7 (5-15); BUN 105 mg/dL (7-18); BUN/Creat Ratio 26.5 RATIO (10-20); Calcium,Total 9.2 mg/dL (8.5-10.1); Chloride 106 mmol/L (98-107); Creatinine, Serum 3.96 mg/dL (0.70-1.30); EST Glomerular Filtration Rate 17 mL/min (>60); Est Glom Filt Rate - Afr Amer 20 mL/min (>60); Estimated Creatinine Clearance 22.71 ml/min; Glucose 195 mg/dL (74-106); Potassium 3.8 mmol/L (3.5-5.1); Sodium Level 136 mmol/L (136-145)
[2022-08-24 18:57] LABS: Erythrocyte Sedimentation Rate 98 mm/hr (0-20)
[2022-08-24] MEDS: Ciprofloxacin 500 MG Tablet PO (19:33)
[2022-08-24] MEDS: Doxycycline 100 MG CAPSULE PO (19:33)
[2022-08-24 19:44] VITALS: BP 151/77; PULSE 71; RESP 16; O2SAT 97
== END 2022-08-24 19:45 | disposition home or self-care (01) ==
PROVIDERS: Emergency Provider Student in an Organized Health Care Education/Training Program; PCP Family Medicine; Visit Provider Student in an Organized Health Care Education/Training Program
DX: L03.115 Cellulitis of right lower limb (principal); E11.621 Type 2 diabetes mellitus with foot ulcer; I13.0 Hypertensive heart and chronic kidney disease with heart failure and stage 1 through stage 4 chronic kidney disease, or unspecified chronic kidney disease; I50.32 Chronic diastolic (congestive) heart failure; E11.22 Type 2 diabetes mellitus with diabetic chronic kidney disease; E11.42 Type 2 diabetes mellitus with diabetic polyneuropathy; E11.59 Type 2 diabetes mellitus with other circulatory complications; Z79.4 Long term (current) use of insulin; N18.31 Chronic kidney disease, stage 3a; I25.10 Atherosclerotic heart disease of native coronary artery without angina pectoris; E78.5 Hyperlipidemia, unspecified; Z95.5 Presence of coronary angioplasty implant and graft
CPT/HCPCS: 73630; 80048; 85025; 85652; 86140; 87070; 87075; 87077; 87186; 87205; 99283; A4216

== ENCOUNTER 2022-08-25 12:02 | Inpatient (IN) | payer OTHER, SELFPAY ==
[2018-12-25 08:56] VITALS: BMI 37.9
[2022-08-25] VITALS (9 sets, daily range): BP systolic 116–147; BP diastolic 65–92; PULSE 63–80; RESP 17–23; TEMP 36–36.8; O2SAT 94–100; BMI 40.7
--- NOTE | 2022-08-25 12:29 | EKG12_ITS ---
Test Reason : am ekg Blood Pressure : / mmHG Vent. Rate : 071 BPM Atrial Rate : 071 BPM P-R Int : 182 ms QRS Dur : 116 ms QT Int : 436 ms P-R-T Axes : 052 032 141 degrees QTc Int : 473 ms Normal sinus rhythm Minimal voltage criteria for LVH, may be normal variant ( Doroteo product ) Inferior infarct , age undetermined T wave abnormality, consider lateral ischemia Abnormal ECG When compared with ECG of 28-AUG-2022 05:38, MANUAL COMPARISON REQUIRED, DATA IS UNCONFIRMED Confirmed by DANNY NUNEZ, CHAPARRO ([id number]), advertising editor ISRAEL MALIK ([id number]) on 08/29/2022 11:24:13 AM Referred By: Anaya Confirmed By:CHAPARRO DELGADO MD
--- NOTE | 2022-08-25 12:36 | NURSING ---
son states he will bring in pt home med list, it was left at home. as neither pt nor his son can recall names of meds. pt sates he did take all of his am meds today.
--- NOTE | 2022-08-25 12:39 | HP.PCM_ITS ---
HPI - General General Date of Admission: 08/25/22 HPI Narrative YOSEPH PERSAUD, is a 52 M who presents to the hospital with an acute right diabetic foot infection. Patient has a past medical history of type 2 diabetes with CKD stage III, congestive heart failure, coronary artery disease. Patient notes worsening of his wound since Sunday of this past week in which he noticed that his fifth toe had become discolored and malodorous. Patient was seen in the ER noted to have a white blood cell count of 13. Patient seen in my office today with acute gangrene of his right fifth toe which requires amputation. At current current he denies any fever chills nausea vomiting chest pain calf pain shortness of breath. Patient has a history of a right partial first ray amputation which is healed at this time. Patient has no other complaints. [facility] Medical History Anemia in chronic illness Atherosclerotic heart disease of [place] coronary artery without angina pectoris Carotid artery stenosis Chronic diastolic (congestive) heart failure Chronic kidney disease Chronic kidney disease Chronic kidney disease, stage 3a Coronary artery disease Depression Diabetes mellitus Diabetes mellitus with diabetic polyneuropathy Diabetes mellitus, type II Diabetic infection of left foot Edema, peripheral Essential (primary) hypertension History of non-ST elevation myocardial infarction (NSTEMI) (03/15/20) History of stress test Hyperlipidemia Hyperlipidemia Hypertension Hypertension Hypomagnesemia Infected sebaceous cyst Insulin dependent diabetes mellitus Ischemic cardiomyopathy (06/2013) Left ventricular systolic dysfunction (LVSD) Non-pressure 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 of bone Non-pressure chronic ulcer of other part of left foot with fat layer exposed Non-pressure chronic ulcer of other part of left foot with fat layer exposed Obesity Paresthesias Partial nontraumatic amputation of right foot Pneumonia due to COVID-19 virus (03/14/20) Type 2 diabetes mellitus with diabetic neuropathy, unspecified Type 2 diabetes mellitus with diabetic polyneuropathy Type 2 diabetes mellitus with foot ulcer Ulcer of right foot with fat layer exposed Venous insufficiency Venous insufficiency of both lower extremities Home Medications aspirin 81 mg chewable tablet 81 mg PO DAILY@0800 heart 09/28/14 [History Last Taken 12/20/18] atorvastatin 80 mg tablet 80 mg PO QHS cholesterol 30 days #30 tabs 06/21/21 [Rx Last Taken Unknown] clopidogrel 75 mg tablet 75 mg PO DAILY Blood Thinner 30 days #30 tabs 06/21/21 [Rx Last Taken Unknown] insulin glargine 100 unit/mL (3 mL) subcutaneous pen (Lantus Solostar U-100 Insulin) 20 unit (0.2 mL) subcut BID Diabetes 30 days #12 mL 06/21/21 [Rx Last Taken Unknown] isosorbide mononitrate 60 mg tablet,extended release 24 hr 60 mg PO DAILY Heart 30 days #30 tabs 01/12/22 [Rx Last Taken Unknown] ezetimibe 10 mg tablet 10 mg PO DAILY cholesterol 04/07/22 [History Last Taken Unknown] carvedilol 25 mg tablet 25 mg PO BID #180 tabs 05/25/22 [Rx Last Taken Unknown] amlodipine 5 mg tablet 5 mg PO DAILY . 06/05/22 [History Last Taken Unknown] ferrous sulfate 325 mg (65 mg iron) tablet (FeroSul) 325 mg PO BID #60 tabs 06/08/22 [Rx Last Taken Unknown] furosemide 20 mg tablet (Lasix) 20 mg PO BID #180 tabs 06/08/22 [Rx Last Taken Unknown] ciprofloxacin HCl 500 mg tablet (Cipro) 500 mg PO BID #7 tabs 08/24/22 [Rx Last Taken Unknown] doxycycline monohydrate 100 mg capsule 100 mg PO BID #14 CAPSULES 08/24/22 [Rx Last Taken Unknown] Allergy/AdvReac Type Severity Reaction Status Date / Time lisinopril AdvReac Intermediate Cough Verified 08/24/22 17:08 losartan AdvReac Intermediate cough Verified 08/24/22 17:08 Family History Father , Age 57 from [place] Myocardial infarction CAD (coronary artery disease) Sudden cardiac Mother Sick sinus syndrome Sister Diabetes Surgical History H/O cardiac catheterization History of coronary artery stent placement (01/02/19) Social History household members: none Smoking Status: Never smoker alcohol intake: current alcohol intake frequency: holidays/special occasions only substance use type: does not use caffeine: Yes Type: carbonated beverages Number of servings: 2 ROS Constitutional Constitutional: Denies chills, daytime sleepiness or increased appetite Eyes Eyes: Denies blindness, blind spots or decreased night vision ENT HEENT: Denies change in voice, dental pain or facial pain Cardiovascular Cardiovascular: Denies abdominal edema, abdominal pain or chest pain at rest Respiratory/Chest Respiratory/Chest: Reports dyspnea on exertion; Denies change in phlegm color or chest congestion Gastrointestinal Gastrointestinal: Denies bloating, change in bowel habits or diarrhea Genitourinary Genitourinary: Denies burning urination, change in libido or difficulty with ejaculations Musculoskeletal Musculoskeletal: Denies back pain, deformity or limited range of motion Integumentary Integumentary: Denies change in hair, change in pigmentation or nail changes Neurologic Neurologic: Denies abnormal movements, abnormal speech or disequilibrium Psychiatric Psychiatric: Denies anxiety, auditory hallucinations or confusion Vital Signs Vital Signs Vital Signs: 08/25/22 12:26 Temperature 98.2 F Temperature Source Oral Pulse Rate 67 Respiratory Rate 18 Blood Pressure [BP] 147/77 H Blood Pressure Mean [BP] 100 Blood Pressure Source [BP] Monitor Blood Pressure Position [BP] Semi-Fowlers Blood Pressure Location [BP] Left Arm Pulse Ox 96 Oxygen Delivery Method Room Air Weight Weight: 132.449 kg Body Mass Index (BMI) 40.7 Physical Exam Narrative Patient has palpable 2 out of 4 pulses to DP and PT pulses bilaterally. Right lower extremity edema noted. Light touch protective sensation absent to bilateral feet and legs. Gangrenous right fifth toe extending to the proximal fifth metatarsal phalangeal joint on the right side. There is swelling edema erythema extending to the lateral full-thickness foot wound. Musculoskeletal there is absent right great toe. Const alert and oriented x3 Assessment & Plan Assessment/Plan (1) Ulcer of right foot with fat layer exposed: PLAN: Exam performed. Patient vitally stable. Patient has elevated white blood cell count 13. Elevated ESR CRP. Patient is poorly controlled diabetic with history of noncompliance. Patient has history of CAD and CHF last seen by cardiology in June 2022. Noted to have a ejection fraction 45% at that time. Hospitalist consulted. Infectious disease consulted. Wound care consulted. Patient has acute wet gangrene with osteomyelitis of right great toe possibly extending into the fifth ray. We will plan for amputation right fifth ray. Is scheduled for 3 PM today. We will start patient on IV vancomycin and Zosyn for antibiotic management and await final ID recs upon final cultures. Patient will maintain nonweightbearing status to right lower extremity. Due to diffuse right lower extremity edema we will order duplex ultrasound. Arterial studies from 06/26/2021 demonstrate noncompressible pulses to right lower extremity likely secondary to medial calcific stenosis. Objectively patient has palpable pulses. We will consider vascular consult or referral if there are any delays in wound healing. (2) Osteomyelitis of right foot: (3) Other acute osteomyelitis, right ankle and foot: (4) Type 2 diabetes mellitus with diabetic polyneuropathy:
--- NOTE | 2022-08-25 12:51 | VDLE_ITS ---
Reason For Study: Rt Leg Swelling RIGHT LEFT GSV is normal. CFV is compressible, spontaneous, competent, CFV is compressible, spontaneous, competent and demonstrates pulsatile venous flow. and demonstrates pulsatile venous flow. FV is compressible, spontaneous, competent and demonstrates pulsatile venous flow. POP V is compressible, spontaneous, phasic, competent and demonstrates normal augmentation. T/P Trunk is compressible. PTV is compressible. RT PerV is compressible. Procedure This is a venous duplex using B-mode, color flow and spectral Doppler. Exam performed portable in patient room. The exam was diagnostic. A preliminary report was called and/or faxed to [facility] [employer] MANAGER. VL/Venous Duplex US, Unilateral Interpretation Summary There is no evidence of right lower extremity deep vein thrombosis. Right great saphenous vein appears patent and compressible segmentally. Pulsatile venous flow was noted bi laterally consistent with proximal venous hypertension or obstruction. Clinical correlation would be appropriate. Normal flow patterns left common femoral vein Ordering Physician: Everett Julien Performed By: Altaf Holland RVT
[2022-08-25 13:00] LABS: Absolute Lymphocyte Count 0.66 X10^3/uL (0.83-4.51); Absolute Neutrophil Count 10.4 X10^3/uL (2.0-7.7); Basophil# 0.05 X10^3/uL; Basophil% 0.4 % (0-1); Eosinophils% 0.8 % (0-5); Hematocrit 29.4 % (40-54); Hemoglobin 9.1 g/dL (13.0-16.5); Lymphocyte # 0.66 X10^3/ul (0.83-4.51); Lymphocyte % 5.3 % (19-41); Mean Corpuscular Hgb 24.9 pg (27.0-32.0); Mean Corpuscular Volume 80.3 fL (80-94); Mean Platelet Vol. 10.4 fl (6.2-12.0); Monocyte# 1.22 X10^3/uL; Monocyte% 9.7 % (0-10); NRBC Flagged by Analyzer 0 % (0-5); Neutrophil # 10.42 X10^3/uL (2.7-7.7); Neutrophil % 83.2 % (47-70); Platelet Count 272 K/mm3 (150-450); RBC Distribution Width CV 16.1 % (11.6-14.6); RBC Distribution Width SD 46.7 fl (35.1-43.9); Red Blood Count 3.66 M/mm3 (4.6-6.2); White Blood Count 12.5 K/mm3 (4.4-11.0)
--- NOTE | 2022-08-25 13:14 | PN_ITS ---
Subjective Subjective Patient is a 52 y/o male with a PMH as outlined who was admitted to the service of podiatry for right diabetic foot infection. He has a known wound of the left foot which has been worsening for the last several days. He noted that he was having an offensive smell and discoloration of the right little toe. 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 He denied any fever, chills, chest pain, calf pain, palpitaitons, dizzines, nausea, vomiting or diarrhea. Review of systems is otherwise negative. VItals at time of review were BP of 147/77, NM of 67, RR of 18 and temp of 98.2F. He was saturating at 96% on room air. CBC showed wbc of 12.5, hb of 9.1 and platelets of 272. CHemistry was pending. Objective Data Objective Data Vital Signs: Vital Signs Temp Pulse Resp BP Pulse Ox O2 Del Method 98.2 F 67 18 147/77 H 96 Room Air 08/25/22 12:26 08/25/22 12:26 08/25/22 12:26 08/25/22 12:26 08/25/22 12:26 08/25/22 12:26 Oxygen Delivery Method Room Air Weight: 292 lb Body Mass Index (BMI) 40.7 Lab / Micro Data Result Diagrams: 08/25/22 16:05 08/25/22 16:05 Labs: Laboratory Results - last 24 hr 08/25/22 12:51: WBC 12.5 H, RBC 3.66 L, Hgb 9.1 L, Hct 29.4 L, MCV 80.3, MCH 24.9 L, MCHC 31.0 L, RDW Std Deviation 46.7 H, RDW Coeff of Rajendra 16.1 H, Plt Count 272, MPV 10.4, Immature Gran % (Auto) 0.600, Neut % (Auto) 83.2 H, Lymph % (Auto) 5.3 L, [place] % (Auto) 9.7, Eos % (Auto) 0.8, Baso % (Auto) 0.4, Absolute Neuts (auto) 10.4 H, Absolute Lymphs (auto) 0.66 L, Nucleated RBC % 0 Physical Exam Const alert, oriented x3 and no apparent distress General Appearance: cooperative HEENT normocephalic, head/scalp atraumatic, moist oral mucous membranes and oropharynx normal Eyes PERRL and EOMs intact bilaterally Neck no lymphadenopathy and supple Lymph Lymphatic: no lymphadenopathy noted and no lymphedema noted Resp normal respiratory effort, normal air movement and clear to auscultation bilaterally Cardio regular rate, regular rhythm, S1 normal heart sound, S2 normal heart sound and no murmurs GI normal to inspection, nondistended, normoactive bowel sounds, soft to palpation, non-tender and non-distended Extremity Extremity Narrative: right foot wrapped in bandage Skin Skin Narrative: right foot wrapped in bandage Neuro CN's II-XII intact bilaterally, no focal motor deficits and no sensory deficits noted Motor Exam: strength 5/5 throughout Psych thought process normal Appearance: appropriate Assessment & Plan Assessment/Plan (1) Type 2 diabetes mellitus with diabetic polyneuropathy: (2) Other acute osteomyelitis, right ankle and foot: (3) Osteomyelitis of right foot: PLAN: Plan #RIght diabetic foot ulcer, concerning for osteomyelitis * admitted to service of podiatry * management of foot ulcer a per podiatry * wbc is 12.5. * on IV vancomycin and zosyn * for I&D and ray amputation today * Patient medically risk stratified for surgery with a moderate risk. He has a below average risk of any or serious complication per NSQIP and has an above average risk of surgical site infection. * * #CORA on CKD 3B * Cr is 4.11 with a baseline of ~ 3.22 * BUN is also up to 109 * will hydrate with IVF and trend. Likely pre-renal and driven by the concurrent infection also * if Cr doesnt trend downwards, will get further workup with renal uSG and consult nephrology. * will be gentle with hydration in light of his known EF of 29% * renal USG from 06/09/2022 was normal * #Type 2 diabetes mellitus * on lantus 20 units BID * ISS. Accuchecks ACHS * #CAD s/p stents x 5: on aspirin, plavix and high intensity statin and imdur #HFrEF: EF is known to be 29%. On lasix. not in exacerbation. Breathing treatment with bronchodilators #Hyperlipidemia: on statin #HfpEF: not in exacerbation. On lasix #Hypertension: on amlodipine and carvedilol\ DVT prophylaxis: as per primary team. Thank you for the courtesy of the consult. We will continue to follow with you. 4:59pm I spoke to the anesthesiologist Dr. Moody who informed me that patient had had a cardiac arrest during surgery. According to the anesthesiologist, EKG done before surgery showed some ST depressions in the lateral leads which was similar compared to previous EKGs. Patient also did not have any chest pain or shortness of breath. They did proceed with surgery. Patient was under mild sedation and local anesthesia of the foot for the surgery. He remained hemodynamically stable throughout the surgery. He received 75 mcg of fentanyl. Towards the end of the surgery, patient received an additional 25 mcg of fentanyl and promptly went into respiratory distress with his breathing slowing and subsequently stopping. An LMA was then placed to help with his airway. After he went into respiratory distress and respiratory failure arrest after he received the additional 25mcg fentanyl, patient also went into cardiac arrest. He was resuscitated via ACLS protocol with several rounds of CPR and also received epinephrine. Per anesthesia, the fentanyl was reversed with Narcan and patient subsequently started breathing again. He also received flumazenil to reverse anesthesia and also received epinephrine. Patient did not have to be intubated. He was transferred to the ICU on 100% oxygen by ventilator mask. I reviewed patient at bedside in the ICU. Was alert and oriented and denied any chest pain, palpitations, dizziness, shortness of breath, lightheadedness, nausea vomiting or any other symptoms. Review of systems otherwise negative. From the records he has an echo from about 2021 which showed EF of 45% with severe left ventricular hypertrophy and had a stress test on April 09, 2022 which showed mild eliud-infarct related myocardial ischemia in the mid inferoseptal segments with a EF of 29%. Plan had been for medical management.. He was also recently seen for heart failure and has been seeing nephrology. Will get cardiology and critical consult, and cycle troponins. EKG showed St depression in lateral leads and subendocardial injury, similar to previous EKGs. 2D echo for tomorrow. I spoke to his son outside the PACU and updated him about the plan. CODE STATUS: Full code * Patient counseled in the ICU extensively about different types of CODE STATUS including full code, DNR CCA and DNR CCA. Patient elects to be full code. * Total ofmm-km-hise time 16 mins Charges/Coding Visit Charges Inpatient E&M: 07987 Subs Hosp L3 Procedures Hospitalists Procedures: 51212 Advncd Care Plan 30 Min
--- NOTE | 2022-08-25 13:29 | WOUNDNOTE ---
wound photo: right foot
--- NOTE | 2022-08-25 13:30 | WOUNDNOTE ---
wound photo: right foot
--- NOTE | 2022-08-25 13:30 | WOUNDNOTE ---
wound photo: right foot
[2022-08-25 13:43] LABS: ALB/GLOB Ratio 0.5 RATIO (0.9-2.4); AST(SGOT) 20 U/L (15-37); Alanine Aminotransfer ALT/SGPT 22 U/L (16-61); Albumin, Serum 2.4 g/dL (3.2-5.0); Alkaline Phosphatase 69 U/L (45-117); Anion Gap 7 (5-15); BUN/Creat Ratio 26.5 RATIO (10-20); Calcium,Total 8.7 mg/dL (8.5-10.1); Chloride 107 mmol/L (98-107); Creatinine, Serum 4.11 mg/dL (0.70-1.30); EST Glomerular Filtration Rate 16 mL/min (>60); Est Glom Filt Rate - Afr Amer 20 mL/min (>60); Estimated Creatinine Clearance 21.88 ml/min; Globulin 5.2 g/dL (2.2-4.2); Glucose 266 mg/dL (74-106); Potassium 3.8 mmol/L (3.5-5.1); Protein, Total 7.6 g/dL (6.4-8.2); Sodium Level 136 mmol/L (136-145)
[2022-08-25 13:47] LABS: Hemoglobin A1c 8.8 % (3.8-5.6)
[2022-08-25 13:48] LABS: International Normalized Ratio 1.3; Partial Thromboplast Time 33.2 Seconds (24.1-36.2); Prothrombin Time (Protime)PT. 16.2 SECONDS (11.7-14.9)
[2022-08-25] MEDS: Bupivacaine 0.5% PF 10 ML VIAL (15:20)
--- NOTE | 2022-08-25 15:30 | BON_PTH ---
PATIENT: YOSEPH PERSAUD Jr. LOC: [facility] U#:[id number] AGE/SX: 52/M ROOM: [facility] RE08/25/[address]: Dr. Everett Julien DPM : 1970 BED: 1 DIS: 08/29/2022 SPEC #: [id number] RECD: 08/25/22 17:00 STATUS: TOMMY RERay #: [id number] AGGIE: 08/25/22 15:[address]: Everett Julien DEPT: SURGICAL PATHOLOGY RECD BY: Dianne Contreras ENTERED: 08/28/22 08:17 SP TYPE: Bone OTHR DR: MD Dr. Jose Sheffield DO Dr. Farouk Belal, MD Dr. Jayaprakas Dasari, MD Dr. Lee Ann Baggott, MD Dr. Mark Tereletsky, DO Dr. Nana Yaa Koram, MD Dr. Robert Leininger, MD Dr. Tanmay Panchabhai, MD Dr. William Lago, MD Christina Muller, CIRCUIT COURT CLERK-C Tissues: Toe, NOS Procedures: Decalcification bone/plaque Surgery Specimen Level IV HEADER OPERATION: Amputation fifth toe PRE-OP DIAGNOSIS: Osteomyelitis right fifth toe TISSUE SUBMITTED: Right fifth toe clearance fragment MICROSCOPIC DIAGNOSIS Right fifth toe, amputation: A piece of bone with acute osteomyelitis. See comment. KRISTINA:nisha 08/30/2022 COMMENT Resection margin is free of acute osteomyelitis. Clinical correlation and appropriate follow up are necessary. Case has been reviewed in consultation with Dr. Buenrostro who concurs with the above diagnosis. IDC:AM MICROSCOPIC DESCRIPTION Slides are reviewed. GROSS DESCRIPTION Received in fixative is one container labeled with the patient's name and designated right fifth toe clearance fragment. The specimen consists of a piece of bone measuring 4.0 x 2.0 x 1.5 cm. The resection margin is inked. Retail Property Manager sections are submitted in two cassettes after decalcification. / KRISTINA:nisha 08/28/2022 TC:2 CPT: 48318, 57012
[2022-08-25 16:15] LABS: Hematocrit 34.2 % (40-54); Hemoglobin 10.2 g/dL (13.0-16.5); Mean Corp Hgb Conc 29.8 g/dL (32-36); Mean Corpuscular Hgb 24.7 pg (27.0-32.0); Mean Corpuscular Volume 82.8 fL (80-94); Mean Platelet Vol. 10.8 fl (6.2-12.0); Platelet Count 306 K/mm3 (150-450); RBC Distribution Width CV 16.4 % (11.6-14.6); RBC Distribution Width SD 49.4 fl (35.1-43.9); Red Blood Count 4.13 M/mm3 (4.6-6.2); White Blood Count 16.6 K/mm3 (4.4-11.0)
--- NOTE | 2022-08-25 16:23 | EKG12_ITS ---
Test Reason : PRE-OP Blood Pressure : / mmHG Vent. Rate : 069 BPM Atrial Rate : 069 BPM P-R Int : 176 ms QRS Dur : 122 ms QT Int : 404 ms P-R-T Axes : 044 031 161 degrees QTc Int : 432 ms Normal sinus rhythm Inferior infarct (cited on or before 07-APR-2022) ST & T wave abnormality, consider lateral ischemia Abnormal ECG When compared with ECG of 05-JUN-2022 10:34, T wave inversion now evident in Lateral leads Confirmed by DANNY NUNEZ, CHAPARRO ([id number]), production editor ISRAEL MALIK ([id number]) on 08/29/2022 9:12:52 AM Referred By: LOUIE Confirmed By:CHAPARRO DELGADO MD
--- NOTE | 2022-08-25 16:25 | OP.PCM_ITS ---
Problems Associated Problem List Diagnoses (1) Osteomyelitis of right foot: (2) Insulin dependent diabetes mellitus: (3) Other acute osteomyelitis, right ankle and foot: (4) Type 2 diabetes mellitus with diabetic polyneuropathy: Report of Operation Date of Procedure: 08/25/22 Pre-Operative Diagnosis: 1) Right foot wet gangrene 2) Right foot 5th toe osteomyelitis 3) abscess, right foot Post-Operative Diagnosis: Same Surgery/Procedure Performed:: 1) Partial 5th ray resction, right foot Surgeon: Everett Julien Type of Anesthesia: Local MAC Special Medications: 20cc 0.5% marcaine plain Specimen's removed: Right 5th toe/fifth metatarsal Drains: none Estimated Blood Loss (mL): 100cc Description of Procedure: Patient was brought back the operating discomfort in supine position on the operating room table. Patient induced under MAC anesthesia. Well-padded right ankle tourniquet applied. Preoperatively 20 cc half percent Marcaine plain was used to perform a ring ankle block. Right lower extremity was bumped to knock on external rotation. Right lower extremity scrubbed prepped draped using typical aseptic fashion. Once cleared by anesthesia a linear incision from the level of the fifth toe connecting down to the fifth metatarsal base full-thickness wound was made full- thickness down to the level of the fifth metatarsal shaft. Careful dissection was taken to dissect the fifth metatarsal the fifth toe bone proximal middle and distal phalanx from the soft tissue this was passed the back table for bone culture. Next the necrotic nonviable tissue from the fifth toe skin and soft tissue was excised in its entirety using pickups and a 15 blade and passed to the back table for soft tissue culture. There is noted to be a small abscess to the fifth metatarsal phalangeal joint consisting of 2 cc of purulent drainage this was flushed and cleansed. Next attention was taken to the fifth metatarsal shaft at which the fifth metatarsal was resected approximately two thirds of it. This was performed using a oscillating saw. This was passed to the back table for fifth metatarsal clearance fragment. This was sent to pathology. Incisional site was then flushed with copious amounts of normal sterile saline using low-pressure pulse lavage. Any bleeders cauterized at this time. The wound base was examined for any residual nonviable tissue as well as infectious tissue such as purulent drainage. None remainder the wound demonstrated healthy bleeding base suggestive of good wound healing potential. Post lavage swab cultures were taken. Incisional site was then closed primarily using vessel loop closure with blue Vesseloops and william. Prior to application of the dressing. Patient stopped breathing on his own and underwent a code within the OR. See complication section for additional details. Once ROSC was achieved and patient was stabilized a dressing was applied consisting of sterile 4 x 4's Kerlix ABD pads and a Leonides bandage. Patient was transferred to PACU prior to transferring back to ICU for additional work-up and observation after coding in the OR. We will continue to follow patient closely. Grafts/Implants Used: vessel loop closure with blue vessel loops and william Complications during the end of the case after wound closure, the patient ventilatory rate and pulse ox, an LMA was placed per anesthesia ultimately patient went into asystole. A code was called and compressions were initiated immediately, patient was given narcan and epinephrine, and ROSC was obtained. Patient transferred to ICU. Admit VTE Documentation VTE Present on Admission: Yes VTE Pharm Prophylaxis ordered?: Yes
[2022-08-25 16:30] LABS: International Normalized Ratio 1.3; Prothrombin Time (Protime)PT. 16.2 SECONDS (11.7-14.9)
[2022-08-25 16:31] LABS: Partial Thromboplast Time 31.9 Seconds (24.1-36.2)
--- NOTE | 2022-08-25 16:35 | RAD_ITS ---
STUDY: X-RAY CHEST REASON FOR EXAM: Male, 52 years old. post chest compressions -- portable done in OR TECHNIQUE: Single AP portable view of the chest. COMPARISON: 06/05/2022. FINDINGS: Limited by patient''s size and under exposure. Incomplete expansion of the lungs. Mild diffuse hazy density of both lungs. Linear density across the left upper lobe consistent with discoid atelectasis. No effusions are seen. There is severe cardiac enlargement. Normal mediastinum and paula. Normal visualized pulmonary arteries. Normal visualized aortic arch and descending thoracic aorta. Normal visualized thoracic spine. Normal visualized ribs, clavicles, and shoulders. There is no demonstrated abnormality of the visualized soft tissue structures of the upper abdomen. RAD/Chest 1 View (Portable) IMPRESSION: Limited by patient''s size and under exposure. Probable moderate diffuse pulmonary edema. Cardiomegaly. Electronically Signed: Ken Gary MD at 17:34 EDT ,
[2022-08-25 16:48] LABS: ALB/GLOB Ratio 0.4 RATIO (0.9-2.4); AST(SGOT) 27 U/L (15-37); Alanine Aminotransfer ALT/SGPT 28 U/L (16-61); Albumin, Serum 2.5 g/dL (3.2-5.0); Alkaline Phosphatase 73 U/L (45-117); Anion Gap 9 (5-15); BUN 101 mg/dL (7-18); BUN/Creat Ratio 24.2 RATIO (10-20); Calcium,Total 9.3 mg/dL (8.5-10.1); Chloride 104 mmol/L (98-107); Creatinine, Serum 4.17 mg/dL (0.70-1.30); EST Glomerular Filtration Rate 16 mL/min (>60); Est Glom Filt Rate - Afr Amer 19 mL/min (>60); Estimated Creatinine Clearance 21.57 ml/min; Globulin 5.8 g/dL (2.2-4.2); Glucose 216 mg/dL (74-106); Potassium 4.2 mmol/L (3.5-5.1); Protein, Total 8.3 g/dL (6.4-8.2); Sodium Level 135 mmol/L (136-145); Troponin-I HS 49 pg/mL (3.0-78.0)
[2022-08-25 17:05] LABS: Bedside Glucose 231 mg/dL (74-106)
--- NOTE | 2022-08-25 17:22 | PCM.RX.CS ---
Consult Pharmacy has been consulted to manage selected antiobiotic: Vancomycin Type of Consult: New start Suspected Infection: Osteomyelitis Labs: Sodium 135 mmol/L (136-145) L 08/25/22 16:05 Potassium 4.2 mmol/L (3.5-5.1) 08/25/22 16:05 Chloride 104 mmol/L (98-107) 08/25/22 16:05 Carbon Dioxide 22.0 mmol/L (21.0-32.0) 08/25/22 16:05 Anion Gap 9 (5-15) 08/25/22 16:05 BUN 101 mg/dL (7-18) H* 08/25/22 16:05 Creatinine 4.17 mg/dL (0.70-1.30) H 08/25/22 16:05 Est GFR (MDRD) Af Amer 19 mL/min (>60) L 08/25/22 16:05 Est GFR (MDRD) Non-Af 16 mL/min (>60) L 08/25/22 16:05 BUN/Creatinine Ratio 24.2 RATIO (10-20) H 08/25/22 16:05 Glucose 216 mg/dL (74-106) H 08/25/22 16:05 Goal Trough: 15-20 mcg/mL Pharmacy Plan for Drug Dosing: NEW START IV VANCOMYCIN Consulting Physician: Dr. Julien Indication: Osteomyelitis Goal Trough: 15-20 SrCr: 4.17 CrCl: 21mL/min Comments: Patient with acute renal failure, normal SCr ~3.2, currently 4.17 on labs today. Even though CrCl >20, will still dose based on levels until SCr has stabilized. Once stable, will start on a scheduled regimen. Vancomycin Dose: 2g x1 loading dose, then dose based on random levels until SCr stabilizes Pending Level: *RANDOM* level 08/27/22 w/ am labs Pharmacy Service will continue to monitor and adjust dosing as required.
--- NOTE | 2022-08-25 17:56 | PCM.CONS.C ---
Assessment & Plan Assessment/Plan (1) Type 2 diabetes mellitus with diabetic polyneuropathy: (2) Atherosclerotic heart disease of [place] coronary artery without angina pectoris: (3) Chronic kidney disease, stage 3a: (4) Other acute osteomyelitis, right ankle and foot: (5) Postoperative cardiac arrest following non-cardiac surgery: PLAN: Plan 52-year-old patient with known cardiac history Had a history of CAD with non-ST elevation [place] 2014 Had PCI and stent of the left circumflex, patient with ischemic cardiomyopathy Subsequently in 2019 he had in-stent restenosis of the left circumflex underwent PCI and stent for the circumflex and diagonal branch at that time his EF is around 60 Patient had multiple other medical problems history of diabetes history of stroke osteomyelitis of the right great toe previous surgeries When this admission he had osteomyelitis of the right toe and was brought in for elective amputation. While in OR patient patient developed cardiac arrest resuscitated and maintained ROSC and transferred to ICU. In ICU he remained stable he does not have any symptoms of chest pain Cardiac care plan recommendations; I reviewed the evaluation here including the EKG glazier supervisor We will check a series of cardiac biomarkers Also will reevaluate by echocardiogram. Continue current treatment with beta-kane carvedilol, dual antiplatelet therapy, with Plavix aspirin Statin atorvastatin high-dose 80 mg. Patient had acute on chronic renal insufficiency not a candidate for Entresto or MEME inhibitor at this point. I noted on the last echocardiogram his EF was in the lower range of around 29%. We will discuss further plan based on results of the series of cardiac markers as well as echocardiogram. Also would recommend LifeVest prior to discharge due to the event of cardiac arrest HPI Consult Data Date of Consult: 08/25/22 HPI Narrative Reason for Consultation: Post cardiac arrest/patient with CAD /severe LV systolic dysfunction HPI Narrative: YOSEPH PERSAUD, is a 52 M who presents [facility] Medical History Anemia in chronic illness Atherosclerotic heart disease of [place] coronary artery without angina pectoris Carotid artery stenosis Chronic diastolic (congestive) heart failure Chronic kidney disease Chronic kidney disease Chronic kidney disease, stage 3a Coronary artery disease Depression Diabetes mellitus Diabetes mellitus with diabetic polyneuropathy Diabetes mellitus, type II Diabetic infection of left foot Edema, peripheral Essential (primary) hypertension History of non-ST elevation myocardial infarction (NSTEMI) (03/15/20) History of stress test Hyperlipidemia Hyperlipidemia Hypertension Hypertension Hypomagnesemia Infected sebaceous cyst Insulin dependent diabetes mellitus Ischemic cardiomyopathy (06/2013) Left ventricular systolic dysfunction (LVSD) Non-pressure 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 of bone Non-pressure chronic ulcer of other part of left foot with fat layer exposed Non-pressure chronic ulcer of other part of left foot with fat layer exposed Obesity Paresthesias Partial nontraumatic amputation of right foot Pneumonia due to COVID-19 virus (03/14/20) Type 2 diabetes mellitus with diabetic neuropathy, unspecified Type 2 diabetes mellitus with diabetic polyneuropathy Type 2 diabetes mellitus with foot ulcer Ulcer of right foot with fat layer exposed Venous insufficiency Venous insufficiency of both lower extremities Home Medications aspirin 81 mg chewable tablet 81 mg PO DAILY@0800 heart 09/28/14 [History Last Taken 12/20/18] atorvastatin 80 mg tablet 80 mg PO QHS cholesterol 30 days #30 tabs 06/21/21 [Rx Last Taken Unknown] clopidogrel 75 mg tablet 75 mg PO DAILY Blood Thinner 30 days #30 tabs 06/21/21 [Rx Last Taken Unknown] insulin glargine 100 unit/mL (3 mL) subcutaneous pen (Lantus Solostar U-100 Insulin) 20 unit (0.2 mL) subcut BID Diabetes 30 days #12 mL 06/21/21 [Rx Last Taken Unknown] isosorbide mononitrate 60 mg tablet,extended release 24 hr 60 mg PO DAILY Heart 30 days #30 tabs 01/12/22 [Rx Last Taken Unknown] ezetimibe 10 mg tablet 10 mg PO DAILY cholesterol 04/07/22 [History Last Taken Unknown] carvedilol 25 mg tablet 25 mg PO BID #180 tabs 05/25/22 [Rx Last Taken Unknown] amlodipine 5 mg tablet 5 mg PO DAILY . 06/05/22 [History Last Taken Unknown] ferrous sulfate 325 mg (65 mg iron) tablet (FeroSul) 325 mg PO BID #60 tabs 06/08/22 [Rx Last Taken Unknown] furosemide 20 mg tablet (Lasix) 20 mg PO BID #180 tabs 06/08/22 [Rx Last Taken Unknown] ciprofloxacin HCl 500 mg tablet (Cipro) 500 mg PO BID #7 tabs 08/24/22 [Rx Last Taken Unknown] doxycycline monohydrate 100 mg capsule 100 mg PO BID #14 CAPSULES 08/24/22 [Rx Last Taken Unknown] Allergy/AdvReac Type Severity Reaction Status Date / Time lisinopril AdvReac Intermediate Cough Verified 08/24/22 17:08 losartan AdvReac Intermediate cough Verified 08/24/22 17:08 Family History Father , Age 57 from [place] Myocardial infarction CAD (coronary artery disease) Sudden cardiac Mother Sick sinus syndrome Sister Diabetes Surgical History H/O cardiac catheterization History of coronary artery stent placement (01/02/19) Social History household members: none Smoking Status: Never smoker alcohol intake: current alcohol intake frequency: holidays/special occasions only substance use type: does not use caffeine: Yes Type: carbonated beverages Number of servings: 2 ROS ROS Narrative 14 point review of history is unremarkable Apart from the current presentation./Post cardiac arrest in OR Patient has osteomyelitis of right foot, insulin-dependent diabetes underwent surgery with right foot/fifth toe Patient stopped breathing and resuscitated in OR and transferred to ICU for observation Physical Exam Narrative Seen at bedside in ICU Along with the nursing staff Comfortable does not have any chest pain manager financial reporting showed normal sinus Cardiac exam S1-S2 regular Chest exam clear to auscultation bilateral. Risk Stratification Risk Stratification Applicable: Yes Age >/= 65: No >/= 3 CAD Risk Factors (HTN, HLD, DM, family hx of CAD, or current smoker): Yes Aspirin Use in the Past 7 Days: Yes Severe Angina (>/= episodes in 24 hours): No EKG ST Changes >/= 0.5mm: Yes Positive Cardiac Marker: No CRISTI Risk Stratification Score: 3 CRISTI % Risk: 13% Risk Objective Data Vital Signs: Vital Signs Temp Pulse Resp BP Pulse Ox O2 Del Method O2 Flow Rate 98.2 F 80 18 147/77 H 99 Nasal Cannula 4 08/25/22 12:26 08/25/22 16:22 08/25/22 12:26 08/25/22 12:26 08/25/22 16:55 08/25/22 16:55 08/25/22 16:55 Oxygen Flow Rate (L/min) 4 Oxygen Delivery Method Nasal Cannula Weight: 291 lb 0.163 oz Body Mass Index (BMI) 40.7 Lab / Micro Data Result Diagrams: 08/25/22 16:05 08/25/22 16:05 Labs: Laboratory Results - last 24 hr 08/25/22 12:51: WBC 12.5 H, RBC 3.66 L, Hgb 9.1 L, Hct 29.4 L, MCV 80.3, MCH 24.9 L, MCHC 31.0 L, RDW Std Deviation 46.7 H, RDW Coeff of Rajendra 16.1 H, Plt Count 272, MPV 10.4, Immature Gran % (Auto) 0.600, Neut % (Auto) 83.2 H, Lymph % (Auto) 5.3 L, [place] % (Auto) 9.7, Eos % (Auto) 0.8, Baso % (Auto) 0.4, Absolute Neuts (auto) 10.4 H, Absolute Lymphs (auto) 0.66 L, Nucleated RBC % 0 08/25/22 12:51: Sodium 136, Potassium 3.8, Chloride 107, Carbon Dioxide 22.0, Anion Gap 7, BUN 109 H*, Creatinine 4.11 H, Estim Creat Clear Calc 21.88, Est GFR (MDRD) Af Amer 20 L, Est GFR (MDRD) Non-Af 16 L, BUN/Creatinine Ratio 26.5 H, Glucose 266 H, Calcium 8.7, Total Bilirubin 0.40, AST 20, ALT 22, Alkaline Phosphatase 69, Total Protein 7.6, Albumin 2.4 L, Globulin 5.2 H, Albumin/Globulin Ratio 0.5 L 08/25/22 12:51: Hemoglobin A1c 8.8 H 08/25/22 13:25: PT 16.2 H, INR 1.3, APTT 33.2 08/25/22 16:05: PT 16.2 H, INR 1.3, APTT 31.9 08/25/22 16:05: Sodium 135 L, Potassium 4.2, Chloride 104, Carbon Dioxide 22.0, Anion Gap 9, BUN 101 H*, Creatinine 4.17 H, Estim Creat Clear Calc 21.57, Est GFR (MDRD) Af Amer 19 L, Est GFR (MDRD) Non-Af 16 L, BUN/Creatinine Ratio 24.2 H, Glucose 216 H, Calcium 9.3, Total Bilirubin 0.40, AST 27, ALT 28, Alkaline Phosphatase 73, Troponin I High Sens 49, Total Protein 8.3 H, Albumin 2.5 L, Globulin 5.8 H, Albumin/Globulin Ratio 0.4 L 08/25/22 16:05: WBC 16.6 H, RBC 4.13 L, Hgb 10.2 L, Hct 34.2 L, MCV 82.8, MCH 24.7 L, MCHC 29.8 L, RDW Std Deviation 49.4 H, RDW Coeff of Rajendra 16.4 H, Plt Count 306, MPV 10.8 08/25/22 16:12: POC Glucose 231 H Cardiology Labs/Tests 08/25/22 12:51: WBC 12.5 H, RBC 3.66 L, Hgb 9.1 L, Hct 29.4 L, MCV 80.3, MCH 24.9 L, MCHC 31.0 L, Plt Count 272, MPV 10.4, Immature Gran % (Auto) 0.600, Neut % (Auto) 83.2 H, Lymph % (Auto) 5.3 L, [place] % (Auto) 9.7, Eos % (Auto) 0.8, Baso % (Auto) 0.4, Absolute Neuts (auto) 10.4 H, Nucleated RBC % 0 08/25/22 12:51: Sodium 136, Potassium 3.8, Chloride 107, Carbon Dioxide 22.0, Anion Gap 7, BUN 109 H*, Creatinine 4.11 H, Est GFR (MDRD) Af Amer 20 L, Est GFR (MDRD) Non-Af 16 L, BUN/Creatinine Ratio 26.5 H, Glucose 266 H, Calcium 8.7, Total Bilirubin 0.40 08/25/22 12:51: Hemoglobin A1c 8.8 H 08/25/22 13:25: PT 16.2 H, INR 1.3, APTT 33.2 08/25/22 16:05: PT 16.2 H, INR 1.3, APTT 31.9 08/25/22 16:05: Sodium 135 L, Potassium 4.2, Chloride 104, Carbon Dioxide 22.0, Anion Gap 9, BUN 101 H*, Creatinine 4.17 H, Est GFR (MDRD) Af Amer 19 L, Est GFR (MDRD) Non-Af 16 L, BUN/Creatinine Ratio 24.2 H, Glucose 216 H, Calcium 9.3, Total Bilirubin 0.40 08/25/22 16:05: WBC 16.6 H, RBC 4.13 L, Hgb 10.2 L, Hct 34.2 L, MCV 82.8, MCH 24.7 L, MCHC 29.8 L, Plt Count 306, MPV 10.8 Rhythm: EKG: ECHO: Stress Test: Cardiac Cath: PCI: CT Surgery: Holter monitor: EPS: PPM: CXR: Chest CT Scan: Radiography Diagnostic Testing: Radiology Impression Chest X-Ray 08/25/22 16:35 IMPRESSION: Limited by patient''s size and under exposure. Probable moderate diffuse pulmonary edema. Cardiomegaly. Electronically Signed: Ken Gary MD at 17:34 EDT ,
[2022-08-25 18:24] LABS: Troponin-I HS 68 pg/mL (3.0-78.0)
[2022-08-25 19:52] LABS: Troponin-I HS 128 pg/mL (3.0-78.0)
[2022-08-25] MEDS: 0.9% Normal Saline 1,000 ML 75 ML IV (21:30)
[2022-08-25] MEDS: Insulin Glargine-YFGN 100 UNIT/ML Pen 20 UNIT SC (21:52)
[2022-08-25] MEDS: Carvedilol 25 MG Tablet PO (21:52)
[2022-08-25] MEDS: Atorvastatin Calcium 80 MG Tablet PO (21:52)
[2022-08-25 22:15] LABS: Bedside Glucose 209 mg/dL (74-106)
[2022-08-26] VITALS (22 sets, daily range): BP systolic 131–152; BP diastolic 61–99; PULSE 69–77; RESP 16–26; TEMP 36.1–37.1; O2SAT 84–100; BMI 40.7
[2022-08-26 00:16] LABS: Troponin-I HS 173 pg/mL (3.0-78.0)
[2022-08-26 02:44] LABS: BUN 109 mg/dL (7-18)
[2022-08-26] MEDS: 0.9% Saline Lock 10 ML Syringe IV (05:20)
[2022-08-26 05:35] LABS: Absolute Lymphocyte Count 0.55 X10^3/uL (0.83-4.51); Absolute Neutrophil Count 10.8 X10^3/uL (2.0-7.7); Basophil# 0.05 X10^3/uL; Basophil% 0.4 % (0-1); Eosinophil# 0.09 X10^3/uL; Eosinophils% 0.7 % (0-5); Hematocrit 27.2 % (40-54); Hemoglobin 8.3 g/dL (13.0-16.5); Lymphocyte # 0.55 X10^3/ul (0.83-4.51); Lymphocyte % 4.3 % (19-41); Mean Corp Hgb Conc 30.5 g/dL (32-36); Mean Corpuscular Hgb 24.9 pg (27.0-32.0); Mean Corpuscular Volume 81.4 fL (80-94); Mean Platelet Vol. 10.7 fl (6.2-12.0); Monocyte# 1.28 X10^3/uL; Monocyte% 9.9 % (0-10); NRBC Flagged by Analyzer 0 % (0-5); Neutrophil # 10.83 X10^3/uL (2.7-7.7); Neutrophil % 84.1 % (47-70); POSITIVE DIFFERENTIAL YES; Platelet Count 279 K/mm3 (150-450); RBC Distribution Width CV 16.2 % (11.6-14.6); RBC Distribution Width SD 48.2 fl (35.1-43.9); Red Blood Count 3.34 M/mm3 (4.6-6.2); White Blood Count 12.9 K/mm3 (4.4-11.0)
--- NOTE | 2022-08-26 05:55 | ECHOCS_ITS ---
Reason For Study: CAD/ASHD Procedure This was a 2D Doppler, Color Flow transthoracic echocardiogram. Contrast injection was performed. Exam performed portable in ICU/CCU. Left Ventricle Moderate concentric left ventricular hypertrophy. The estimated ejection fraction is 35-40 %. Right Ventricle Normal right ventricle. Normal systolic function. Atria The left atrium is mildly enlarged. Normal right atrium. Mitral Valve The mitral valve is structurally normal. No prolapse or stenosis seen. Mild (1+) mitral valve insufficiency. Tricuspid Valve Normal tricuspid valve. Mild tricuspid valve insufficiency. Aortic Valve Normal aortic valve. No aortic valve insufficiency. Pulmonic Valve The pulmonic valve is not well visualized. Great Vessels Normal aortic root. Pericardium/Pleural Small pericardial effusion. Medication Diluted definity 2.5ml given slow IV push to enhance endocardial definition. MMode/2D Measurements & Calculations LVIDd: 5.5 cm IVSd: 1.6 cm Ao root diam: 2.7 cm LVIDs: 4.6 cm LVPWd: 1.3 cm RVDd: 4.2 cm FS: 17.2 % LAV(MOD-bp): 74.7 ml LVAd ap4: 41.0 cm2 SV(MOD-sp4): 50.7 ml LAV(MOD-bp) Indexed: 30.2 ml/m2 LVLd ap4: 9.4 cm LAV(MOD-sp2): 86.2 ml EDV(MOD-sp4): 143.6 ml LAV(MOD-sp4): 67.8 ml EDV(sp4-el): 151.4 ml LVAs ap4: 31.3 cm2 LVLs ap4: 8.6 cm ESV(MOD-sp4): 92.9 ml ESV(sp4-el): 96.7 ml EF(MOD-sp4): 35.3 % EF(sp4-el): 36.1 % SV(sp4-el): 54.7 ml LA A4 area: 23.3 cm2 LA dimension(2D): 4.5 cm RA A4 area: 18.9 cm2 Time Measurements MV dec time: 0.23 sec Doppler Measurements & Calculations MV E max finesse: 92.3 cm/sec Lat Peak E' Finesse: 8.3 cm/sec Med Peak E' Finesse: 5.3 cm/sec MV A max finesse: 84.9 cm/sec E/E' lat: 11.1 E/E' med: 17.4 MV E/A: 1.1 MV dec slope: 408.8 cm/sec2 Ao V2 max: 127.9 cm/sec LV V1 max: 89.1 cm/sec Ao max P.5 mmHg LV V1 max P.2 mmHg Ao V2 mean: 90.1 cm/sec Ao mean P.8 mmHg Ao V2 VTI: 24.7 cm PA V2 max: 106.2 cm/sec ECHO/Echo Complete W/ Contrast Interpretation Summary The estimated ejection fraction is 35-40 %. Small pericardial effusion Ordering Physician: Rosanna Garza Referring Physician: Joseph Ricks Performed By: Jennifer Cross, KAMINI, RVT
[2022-08-26 05:57] LABS: Anion Gap 6 (5-15); BUN 101 mg/dL (7-18); BUN/Creat Ratio 25.4 RATIO (10-20); Calcium,Total 8.1 mg/dL (8.5-10.1); Chloride 109 mmol/L (98-107); Creatinine, Serum 3.97 mg/dL (0.70-1.30); EST Glomerular Filtration Rate 17 mL/min (>60); Est Glom Filt Rate - Afr Amer 20 mL/min (>60); Estimated Creatinine Clearance 22.66 ml/min; Glucose 181 mg/dL (74-106); Potassium 4.1 mmol/L (3.5-5.1); Sodium Level 138 mmol/L (136-145)
--- NOTE | 2022-08-26 06:02 | CON.PCM.CC_ITS ---
Assessment & Plan Assessment/Plan (1) Postoperative cardiac arrest following non-cardiac surgery: PLAN: Plan RECOMMENDATIONS: 1. Wean from supplemental oxygen. 2. Encourage incentive spirometer use and mobilize patient as tolerated. 3. Await results of follow-up echocardiogram. 4. Recommend outpatient polysomnogram. 5. We will sign off from a critical care perspective. IMPRESSIONS: 1. Status post cardiac arrest The patient was noted to have gone into asystole at the completion of his surgical case last evening. ACLS was initiated with ROSC achieved after approximately 2 minutes. The precipitating etiology for his arrest is not entirely clear. However, cardiology has been consulted with follow-up echocardiogram pending. The patient did have an echo in March 2022 which demonstrated an ejection fraction of approximately 45%. At this time, the patient is mentating appropriately and remains hemodynamically stable. He was placed on supplemental oxygen overnight over concerns for sleep apnea. I do not see that the patient has any further ICU needs. I will defer any additional work-up to the hospitalist and cardiology. 2. Right diabetic foot ulcer/osteomyelitis status post partial fifth ray resection Continue routine postoperative care per podiatry. Continue antimicrobials as ordered. ID consultation is pending. 3. Obesity/coronary artery disease/hyperlipidemia/diabetes mellitus Complicates care, management, recovery and prognosis. Continue supportive care as noted above. This note was generated with [employer] dictation software. It may contain incorrect words, spelling, and punctuation that were not noted in checking the note before signing. HPI Consult Data Date of Consult: 08/27/22 HPI Narrative Reason for Consultation: Status postcardiopulmonary arrest HPI Narrative: The patient is a 52-year-old male, with a history as outlined below, who presented to the hospital on August 25 with a right diabetic foot infection. The patient was evaluated by Dr. Julien of podiatry and subsequently taken to the OR on the evening of August 25. The patient was noted to have right foot wet gangrene with right foot fifth toe osteomyelitis, for which he underwent a partial fifth ray resection. Estimated blood loss was approximately 100 cc. According to anesthesia documentation, at the conclusion of the case, the patient developed hypoventilation leading to desaturation and subsequent bradycardia and hypotension. The patient subsequently went into asystole. ACLS was initiated. ROSC was ultimately achieved after approximately 2 minutes. The patient was subsequently transferred to the medical intensive care unit. This morning, the patient is resting comfortably in bed. Nursing staff did report frequent desaturations overnight with sleep, raising the concern for potential obstructive sleep apnea. The patient denies ever having been tested for sleep apnea. He is hemodynamically stable and mentating appropriately. The patient has been evaluated by cardiology with echocardiogram pending. [facility] Medical History Anemia in chronic illness Atherosclerotic heart disease of [place] coronary artery without angina pectoris Carotid artery stenosis Chronic diastolic (congestive) heart failure Chronic kidney disease Chronic kidney disease Chronic kidney disease, stage 3a Coronary artery disease Depression Diabetes mellitus Diabetes mellitus with diabetic polyneuropathy Diabetes mellitus, type II Diabetic infection of left foot Edema, peripheral Essential (primary) hypertension History of non-ST elevation myocardial infarction (NSTEMI) (03/15/20) History of stress test Hyperlipidemia Hyperlipidemia Hypertension Hypertension Hypomagnesemia Infected sebaceous cyst Insulin dependent diabetes mellitus Ischemic cardiomyopathy (06/2013) Left ventricular systolic dysfunction (LVSD) Non-pressure 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 of bone Non-pressure chronic ulcer of other part of left foot with fat layer exposed Non-pressure chronic ulcer of other part of left foot with fat layer exposed Obesity Paresthesias Partial nontraumatic amputation of right foot Pneumonia due to COVID-19 virus (03/14/20) Type 2 diabetes mellitus with diabetic neuropathy, unspecified Type 2 diabetes mellitus with diabetic polyneuropathy Type 2 diabetes mellitus with foot ulcer Ulcer of right foot with fat layer exposed Venous insufficiency Venous insufficiency of both lower extremities Home Medications aspirin 81 mg chewable tablet 81 mg PO DAILY@0800 heart 09/28/14 [History Last Taken 12/20/18] atorvastatin 80 mg tablet 80 mg PO QHS cholesterol 30 days #30 tabs 06/21/21 [Rx Last Taken Unknown] clopidogrel 75 mg tablet 75 mg PO DAILY Blood Thinner 30 days #30 tabs 06/21/21 [Rx Last Taken Unknown] insulin glargine 100 unit/mL (3 mL) subcutaneous pen (Lantus Solostar U-100 Insulin) 20 unit (0.2 mL) subcut BID Diabetes 30 days #12 mL 06/21/21 [Rx Last Taken Unknown] isosorbide mononitrate 60 mg tablet,extended release 24 hr 60 mg PO DAILY Heart 30 days #30 tabs 01/12/22 [Rx Last Taken Unknown] ezetimibe 10 mg tablet 10 mg PO DAILY cholesterol 04/07/22 [History Last Taken Unknown] carvedilol 25 mg tablet 25 mg PO BID #180 tabs 05/25/22 [Rx Last Taken Unknown] amlodipine 5 mg tablet 5 mg PO DAILY . 06/05/22 [History Last Taken Unknown] ferrous sulfate 325 mg (65 mg iron) tablet (FeroSul) 325 mg PO BID #60 tabs 06/08/22 [Rx Last Taken Unknown] furosemide 20 mg tablet (Lasix) 20 mg PO BID #180 tabs 06/08/22 [Rx Last Taken Unknown] ciprofloxacin HCl 500 mg tablet (Cipro) 500 mg PO BID #7 tabs 08/24/22 [Rx Last Taken Unknown] doxycycline monohydrate 100 mg capsule 100 mg PO BID #14 CAPSULES 08/24/22 [Rx Last Taken Unknown] Allergy/AdvReac Type Severity Reaction Status Date / Time lisinopril AdvReac Intermediate Cough Verified 08/24/22 17:08 losartan AdvReac Intermediate cough Verified 08/24/22 17:08 Family History Father , Age 57 from [place] Myocardial infarction CAD (coronary artery disease) Sudden cardiac Mother Sick sinus syndrome Sister Diabetes Surgical History H/O cardiac catheterization History of coronary artery stent placement (01/02/19) Social History household members: none Smoking Status: Never smoker alcohol intake: current alcohol intake frequency: holidays/special occasions only substance use type: does not use caffeine: Yes Type: carbonated beverages Number of servings: 2 ROS ROS Narrative 10 systems were reviewed with pertinent positives as noted in the HPI above. Physical Exam Const alert, oriented x3 and no apparent distress Constitutional Narrative: Obese. General Appearance: cooperative HEENT normocephalic, head/scalp atraumatic and moist oral mucous membranes Eyes PERRL, EOMs intact bilaterally and conjunctivae normal Neck supple General: trachea midline Chest inspection of chest normal Resp normal respiratory effort Auscultation: Negative for rales, rhonchi or wheezes Cardio regular rate and regular rhythm GI normal to inspection, nondistended, normoactive bowel sounds Extremity General Extremity: edema right Skin Skin Narrative: Wrapped right foot. Neuro oriented x3, CN's II-XII intact bilaterally and no focal motor deficits Psych cooperative and affect normal Lab / Micro Data Result Diagrams: 08/27/22 04:45 08/27/22 04:45 Labs: Laboratory Results - last 24 hr 08/25/22 12:51: WBC 12.5 H, RBC 3.66 L, Hgb 9.1 L, Hct 29.4 L, MCV 80.3, MCH 24.9 L, MCHC 31.0 L, RDW Std Deviation 46.7 H, RDW Coeff of Rajendra 16.1 H, Plt Count 272, MPV 10.4, Immature Gran % (Auto) 0.600, Neut % (Auto) 83.2 H, Lymph % (Auto) 5.3 L, [place] % (Auto) 9.7, Eos % (Auto) 0.8, Baso % (Auto) 0.4, Absolute Neuts (auto) 10.4 H, Absolute Lymphs (auto) 0.66 L, Nucleated RBC % 0 08/25/22 12:51: Sodium 136, Potassium 3.8, Chloride 107, Carbon Dioxide 22.0, Anion Gap 7, BUN 109 H*, Creatinine 4.11 H, Estim Creat Clear Calc 21.88, Est GFR (MDRD) Af Amer 20 L, Est GFR (MDRD) Non-Af 16 L, BUN/Creatinine Ratio 26.5 H , Glucose 266 H, Calcium 8.7, Total Bilirubin 0.40, AST 20, ALT 22, Alkaline Phosphatase 69, Total Protein 7.6, Albumin 2.4 L, Globulin 5.2 H, Albumin/Globulin Ratio 0.5 L 08/25/22 12:51: Hemoglobin A1c 8.8 H 08/25/22 13:25: PT 16.2 H, INR 1.3, APTT 33.2 08/25/22 16:05: PT 16.2 H, INR 1.3, APTT 31.9 08/25/22 16:05: Sodium 135 L, Potassium 4.2, Chloride 104, Carbon Dioxide 22.0, Anion Gap 9, BUN 101 H*, Creatinine 4.17 H, Estim Creat Clear Calc 21.57, Est GFR (MDRD) Af Amer 19 L, Est GFR (MDRD) Non-Af 16 L, BUN/Creatinine Ratio 24.2 H , Glucose 216 H, Calcium 9.3, Total Bilirubin 0.40, AST 27, ALT 28, Alkaline Phosphatase 73, Troponin I High Sens 49, Total Protein 8.3 H, Albumin 2.5 L, Globulin 5.8 H, Albumin/Globulin Ratio 0.4 L 08/25/22 16:05: WBC 16.6 H, RBC 4.13 L, Hgb 10.2 L, Hct 34.2 L, MCV 82.8, MCH 24.7 L, MCHC 29.8 L, RDW Std Deviation 49.4 H, RDW Coeff of Rajendra 16.4 H, Plt Count 306, MPV 10.8 08/25/22 16:12: POC Glucose 231 H 08/25/22 17:30: Troponin I High Sens 68 08/25/22 19:05: Troponin I High Sens 128 H* 08/25/22 21:49: POC Glucose 209 H 08/25/22 23:35: Troponin I High Sens 173 H* 08/26/22 05:15: Sodium 138, Potassium 4.1, Chloride 109 H, Carbon Dioxide 23.0, Anion Gap 6, BUN 101 H*, Creatinine 3.97 H, Estim Creat Clear Calc 22.66, Est GFR (MDRD) Af Amer 20 L, Est GFR (MDRD) Non-Af 17 L, BUN/Creatinine Ratio 25.4 H , Glucose 181 H, Calcium 8.1 L Radiology Impression Chest X-Ray 08/25/22 16:35 IMPRESSION: Limited by patient''s size and under exposure. Probable moderate diffuse pulmonary edema. Cardiomegaly. Electronically Signed: Ken Gary MD at 17:34 EDT , Charges/Coding Visit Charges Inpatient E&M: 59061 Init Hosp L3
[2022-08-26 06:38] LABS: Differential Indicated SCAN CRITERIA MET
[2022-08-26 06:41] LABS: Differential Comment SCANNED
--- NOTE | 2022-08-26 08:02 | PCM.PN.HOSP ---
Subjective Subjective Doing well, chest is little bit sore from compressions Objective Data Objective Data Vital Signs: Vital Signs Temp Pulse Resp BP Pulse Ox O2 Del Method O2 Flow Rate 97.1 F L 71 21 H 145/75 H 99 Nasal Cannula 5 08/26/22 04:00 08/26/22 07:00 08/26/22 07:00 08/26/22 07:00 08/26/22 07:00 08/26/22 07:00 08/26/22 07:00 Oxygen Flow Rate (L/min) 5 Oxygen Delivery Method Nasal Cannula Weight: 291 lb 0.163 oz Body Mass Index (BMI) 40.7 Intake & Output: Intake and Output for Last 24 Hours 08/25/22 08/26/22 08/27/22 03:59 03:59 03:59 Intake Total 910.25 / 910.25 956.25 / 956.25 Output Total 850 / 850 Balance 910.25 / 910.25 106.25 / 106.25 Lab / Micro Data Result Diagrams: 08/26/22 05:15 08/26/22 05:15 Labs: Laboratory Results - last 24 hr 08/25/22 12:51: WBC 12.5 H, RBC 3.66 L, Hgb 9.1 L, Hct 29.4 L, MCV 80.3, MCH 24.9 L, MCHC 31.0 L, RDW Std Deviation 46.7 H, RDW Coeff of Rajendra 16.1 H, Plt Count 272, MPV 10.4, Immature Gran % (Auto) 0.600, Neut % (Auto) 83.2 H, Lymph % (Auto) 5.3 L, [place] % (Auto) 9.7, Eos % (Auto) 0.8, Baso % (Auto) 0.4, Absolute Neuts (auto) 10.4 H, Absolute Lymphs (auto) 0.66 L, Nucleated RBC % 0 08/25/22 12:51: Sodium 136, Potassium 3.8, Chloride 107, Carbon Dioxide 22.0, Anion Gap 7, BUN 109 H*, Creatinine 4.11 H, Estim Creat Clear Calc 21.88, Est GFR (MDRD) Af Amer 20 L, Est GFR (MDRD) Non-Af 16 L, BUN/Creatinine Ratio 26.5 H, Glucose 266 H, Calcium 8.7, Total Bilirubin 0.40, AST 20, ALT 22, Alkaline Phosphatase 69, Total Protein 7.6, Albumin 2.4 L, Globulin 5.2 H, Albumin/Globulin Ratio 0.5 L 08/25/22 12:51: Hemoglobin A1c 8.8 H 08/25/22 13:25: PT 16.2 H, INR 1.3, APTT 33.2 08/25/22 16:05: PT 16.2 H, INR 1.3, APTT 31.9 08/25/22 16:05: Sodium 135 L, Potassium 4.2, Chloride 104, Carbon Dioxide 22.0, Anion Gap 9, BUN 101 H*, Creatinine 4.17 H, Estim Creat Clear Calc 21.57, Est GFR (MDRD) Af Amer 19 L, Est GFR (MDRD) Non-Af 16 L, BUN/Creatinine Ratio 24.2 H, Glucose 216 H, Calcium 9.3, Total Bilirubin 0.40, AST 27, ALT 28, Alkaline Phosphatase 73, Troponin I High Sens 49, Total Protein 8.3 H, Albumin 2.5 L, Globulin 5.8 H, Albumin/Globulin Ratio 0.4 L 08/25/22 16:05: WBC 16.6 H, RBC 4.13 L, Hgb 10.2 L, Hct 34.2 L, MCV 82.8, MCH 24.7 L, MCHC 29.8 L, RDW Std Deviation 49.4 H, RDW Coeff of Rajendra 16.4 H, Plt Count 306, MPV 10.8 08/25/22 16:12: POC Glucose 231 H 08/25/22 17:30: Troponin I High Sens 68 08/25/22 19:05: Troponin I High Sens 128 H* 08/25/22 21:49: POC Glucose 209 H 08/25/22 23:35: Troponin I High Sens 173 H* 08/26/22 05:15: WBC 12.9 H, RBC 3.34 L, Hgb 8.3 L, Hct 27.2 L, MCV 81.4, MCH 24.9 L, MCHC 30.5 L, RDW Std Deviation 48.2 H, RDW Coeff of Rajendra 16.2 H, Plt Count 279, MPV 10.7, Immature Gran % (Auto) 0.600, Neut % (Auto) 84.1 H, Lymph % (Auto) 4.3 L, [place] % (Auto) 9.9, Eos % (Auto) 0.7, Baso % (Auto) 0.4, Absolute Neuts (auto) 10.8 H, Absolute Lymphs (auto) 0.55 L, Nucleated RBC % 0, Differential Comment SCANNED 08/26/22 05:15: Sodium 138, Potassium 4.1, Chloride 109 H, Carbon Dioxide 23.0, Anion Gap 6, BUN 101 H*, Creatinine 3.97 H, Estim Creat Clear Calc 22.66, Est GFR (MDRD) Af Amer 20 L, Est GFR (MDRD) Non-Af 17 L, BUN/Creatinine Ratio 25.4 H, Glucose 181 H, Calcium 8.1 L Radiography Diagnostic Testing: Radiology Impression Chest X-Ray 08/25/22 16:35 IMPRESSION: Limited by patient''s size and under exposure. Probable moderate diffuse pulmonary edema. Cardiomegaly. Electronically Signed: Ken Gary MD at 17:34 EDT , Physical Exam Narrative General: Alert, Oriented x3, Cooperative, No apparent distress HEENT: Atraumatic, PERRLA, EOMI, Normocephalic Oral: Moist Mucosa Neck: Supple, No JVD Lungs: Clear to auscultation, Normal air movement, No rhonchi, No wheeze, No rales Cardiovascular: Regular rate, Regular Rhythm, Normal S1, Normal S2, No murmurs Abdomen: Soft, Non Tender, Non-Distended, No Hepato-splenomegaly Extremities: No edema, Capillary Refill Less than 3 Seconds Skin: Right foot is wrapped Musculoskeletal: No Tenderness to Palpation of Joints or Extremities Neurological: Cranial nerves II-XII grossly intact, Motor Exam 5/5 strength throughout, Sensory exam intact to light touch and pain Psych/Mental Status: Normal Affect, Appropriate Assessment & Plan Assessment/Plan (1) Type 2 diabetes mellitus with diabetic polyneuropathy: (2) Other acute osteomyelitis, right ankle and foot: (3) Osteomyelitis of right foot: PLAN: Plan 1. Right diabetic foot ulcer concerning for osteomyelitis stat post partial fifth ray resection on the right on 08/25/2022/CORA on CKD 3B/DM2 ?Continue with insulin, will make adjustments as necessary ? Sliding scale insulin ? Accu-Cheks ACHS ? Renal function has returned close to baseline, will continue to monitor ? Appreciate infectious disease assistance, will continue with broad-spectrum antibiotics 2. Cardiac arrest during surgical procedure/CAD status post 5 stents/chronic combined systolic and diastolic CHF/HTN/HLD ? We will continue with aggressive medical management at this time, awaiting echo ? Appreciate cardiology's assistance, may need cardiac cath prior to discharge home depending on findings ? We will hold Lasix in light of the 8 5 for now but resume his other medications DVT: as per primary team. Charges/Coding Visit Charges Inpatient E&M: 36046 Subs Hosp L2
--- NOTE | 2022-08-26 10:05 | PN_ITS ---
Subjective Subjective Patient 1 day postop from right partial fifth ray resection. Patient suffered cardiac arrest during procedure. Was ultimately achieved ROSC. Patient has been seen by cardiology hospitalist and manager trading since that time and has been noted to be stable overnight. Patient does note some mild chest pain likely re lated to compressions. Patient denies any constitutional symptoms. Patient denies any shortness of breath or calf pain. Patient notes mild pain to his surgical site. Objective Data Objective Data Vital Signs: Vital Signs Temp Pulse Resp BP Pulse Ox O2 Del Method O2 Flow Rate 97.1 F L 71 21 H 145/75 H 99 Nasal Cannula 5 08/26/22 04:00 08/26/22 07:00 08/26/22 07:00 08/26/22 07:00 08/26/22 07:00 08/26/22 07:00 08/26/22 07:00 Oxygen Flow Rate (L/min) 5 Oxygen Delivery Method Nasal Cannula Weight: 132 kg Body Mass Index (BMI) 40.7 Intake & Output: Intake and Output for Last 24 Hours 08/24/22 08/25/22 08/26/22 23:59 23:59 23:59 Intake Total 860.25 / 860.25 1006.25 / 1006.25 Output Total 850 / 850 Balance 860.25 / 860.25 156.25 / 156.25 Lab / Micro Data Result Diagrams: 08/26/22 05:15 08/26/22 05:15 Labs: Laboratory Results - last 24 hr 08/25/22 12:51: WBC 12.5 H, RBC 3.66 L, Hgb 9.1 L, Hct 29.4 L, MCV 80.3, MCH 24.9 L, MCHC 31.0 L, RDW Std Deviation 46.7 H, RDW Coeff of Rajendra 16.1 H, Plt Count 272, MPV 10.4, Immature Gran % (Auto) 0.600, Neut % (Auto) 83.2 H, Lymph % (Auto) 5.3 L, [place] % (Auto) 9.7, Eos % (Auto) 0.8, Baso % (Auto) 0.4, Absolute Neuts (auto) 10.4 H, Absolute Lymphs (auto) 0.66 L, Nucleated RBC % 0 08/25/22 12:51: Sodium 136, Potassium 3.8, Chloride 107, Carbon Dioxide 22.0, Anion Gap 7, BUN 109 H*, Creatinine 4.11 H, Estim Creat Clear Calc 21.88, Est GFR (MDRD) Af Amer 20 L, Est GFR (MDRD) Non-Af 16 L, BUN/Creatinine Ratio 26.5 H , Glucose 266 H, Calcium 8.7, Total Bilirubin 0.40, AST 20, ALT 22, Alkaline Phosphatase 69, Total Protein 7.6, Albumin 2.4 L, Globulin 5.2 H, Albumin/Globulin Ratio 0.5 L 08/25/22 12:51: Hemoglobin A1c 8.8 H 08/25/22 13:25: PT 16.2 H, INR 1.3, APTT 33.2 08/25/22 16:05: PT 16.2 H, INR 1.3, APTT 31.9 08/25/22 16:05: Sodium 135 L, Potassium 4.2, Chloride 104, Carbon Dioxide 22.0, Anion Gap 9, BUN 101 H*, Creatinine 4.17 H, Estim Creat Clear Calc 21.57, Est GFR (MDRD) Af Amer 19 L, Est GFR (MDRD) Non-Af 16 L, BUN/Creatinine Ratio 24.2 H , Glucose 216 H, Calcium 9.3, Total Bilirubin 0.40, AST 27, ALT 28, Alkaline Phosphatase 73, Troponin I High Sens 49, Total Protein 8.3 H, Albumin 2.5 L, Globulin 5.8 H, Albumin/Globulin Ratio 0.4 L 08/25/22 16:05: WBC 16.6 H, RBC 4.13 L, Hgb 10.2 L, Hct 34.2 L, MCV 82.8, MCH 24.7 L, MCHC 29.8 L, RDW Std Deviation 49.4 H, RDW Coeff of Rajendra 16.4 H, Plt Count 306, MPV 10.8 08/25/22 16:12: POC Glucose 231 H 08/25/22 17:30: Troponin I High Sens 68 08/25/22 19:05: Troponin I High Sens 128 H* 08/25/22 21:49: POC Glucose 209 H 08/25/22 23:35: Troponin I High Sens 173 H* 08/26/22 05:15: WBC 12.9 H, RBC 3.34 L, Hgb 8.3 L, Hct 27.2 L, MCV 81.4, MCH 24.9 L, MCHC 30.5 L, RDW Std Deviation 48.2 H, RDW Coeff of Rajendra 16.2 H, Plt Count 279, MPV 10.7, Immature Gran % (Auto) 0.600, Neut % (Auto) 84.1 H, Lymph % (Auto) 4.3 L, [place] % (Auto) 9.9, Eos % (Auto) 0.7, Baso % (Auto) 0.4, Absolute Neuts (auto) 10.8 H, Absolute Lymphs (auto) 0.55 L, Nucleated RBC % 0, Differential Comment SCANNED 08/26/22 05:15: Sodium 138, Potassium 4.1, Chloride 109 H, Carbon Dioxide 23.0, Anion Gap 6, BUN 101 H*, Creatinine 3.97 H, Estim Creat Clear Calc 22.66, Est GFR (MDRD) Af Amer 20 L, Est GFR (MDRD) Non-Af 17 L, BUN/Creatinine Ratio 25.4 H , Glucose 181 H, Calcium 8.1 L Micro: Microbiology 08/25/22 Unknown Wound - Toe Gram Stain - Final 08/25/22 Unknown Wound - Toe Wound Culture - Preliminary No growth-Final to follow 08/25/22 Unknown Tissue - 5th Toe Gram Stain - Final 08/25/22 Unknown Tissue - 5th Toe Wound Culture - Preliminary Staphylococcus species 08/25/22 Unknown Bone - 5th Toe Gram Stain - Final 08/25/22 Unknown Bone - 5th Toe Wound Culture - Preliminary Gram positive organism Radiography Diagnostic Testing: Radiology Impression Chest X-Ray 08/25/22 16:35 IMPRESSION: Limited by patient''s size and under exposure. Probable moderate diffuse pulmonary edema. Cardiomegaly. Electronically Signed: Ken Gary MD at 17:34 EDT , Physical Exam Narrative Neurovascular status unchanged. Full-thickness incision from the right lateral partial fifth ray resection noted to be well approximated with intact vessel loop closure. There is noted to be mild sanguinous drainage from the site. Resolving erythema edema. No residual purulence at this time. Absent fifth toe. Right lower extremity swelling. Assessment & Plan Assessment/Plan (1) Ulcer of right foot with fat layer exposed: PLAN: Exam performed. Patient vitally stable at current. Breathing on his own nasal cannula 5 L/min. Pulse ox 99%. Patient being followed by cardiology manager trading and hospitalist. Repeat echocardiogram performed today. Patient has recent ejection fraction of 29%. Patient received medical treatment for congestive heart failure and coronary ar kamryn disease. We will await cardiology likely recommending Life[facility]est on discharge. Likely transfer to floor today. Wound appears stable, patient receiving IV vancomycin and Zosyn. ID consulted. Will await final cultures for antibiotic recommendations. Patient nonweightbearing to right lower extremity. I did discuss with nurse and patient that he can bear some weight to his heel for transfer purposes. But that he should not pivot over the forefoot. We will continue to follow daily redressed today with Adaptic 4 x 4's Betadine paint Kerlix and Leonides bandage (2) Osteomyelitis of right foot: (3) Other acute osteomyelitis, right ankle and foot: (4) Type 2 diabetes mellitus with diabetic polyneuropathy:
[2022-08-26] MEDS: amLODIPine 5 MG Tablet PO (10:25)
[2022-08-26] MEDS: Aspirin 81 MG TAB.CHEW PO (10:25)
[2022-08-26] MEDS: Ferrous Sulfate 325 MG Tablet PO ×2 (10:25→17:00)
[2022-08-26] MEDS: Carvedilol 25 MG Tablet PO ×2 (10:25→21:09)
[2022-08-26] MEDS: Isosorbide Mononitrate 60 MG Tablet PO (10:25)
[2022-08-26] MEDS: Ezetimibe 10 MG Tablet PO (10:25)
[2022-08-26] MEDS: Clopidogrel Bisulfate 75 MG Tablet PO (10:25)
[2022-08-26] MEDS: Insulin Glargine-YFGN 100 UNIT/ML Pen 20 UNIT SC ×2 (11:04→21:07)
[2022-08-26 11:31] LABS: Bedside Glucose 176 mg/dL (74-106)
[2022-08-26] MEDS: Heparin Injection (Vial) 5,000 UNIT/ML VIAL 5000 UNIT SC ×2 (12:23→21:08)
--- NOTE | 2022-08-26 14:45 | CASEMGMT ---
RN?CM?WAGE HAND?CM?to room to meet with patient for initial transition planning/care coordination?assessment.?RN?CM?introduced self and role at [facility].? Pt voices understanding and consents to?assessment?at this time.? Pt resting in bed in no distress at this time.? Pt is A/O at this time and answers all questions appropriately.?? Care providers, pharmacy, and demographics verified/updated at this time. PCP: Dr Ricks Specialists: [facility]/Cardiology, Preferred Pharmacy: [facility] retail Insurance: [employer] Prescription Benefit: Yes? Living Will/HPOA:?Has both LW and HCPOA, who is his son, Juan A. LNOK: Son, Juan A. Sister, Amalia Living Arrangements: Lives w/son, Juan A, in one-story home w/basement w/2 steps to enter w/railing. Juan A will do laundry since it is downstairs. Pt indep w/ADL's and other IADLs @ baseline. They do grocey shopping together and pt states he does all the cooking. Pt manages his own medications and appts. Transportation:?Pt states drives self and states no transportation concerns at this time.?Juan A also drives DME: States has the following DME:?comfort-height commode, [employer] CGM system. Pt does not use AD to ambulate but states his hoewmo-wn-osg has a lot of DME he could borrow, if needed, such as walker and shower chair. ?Pt states no need for further DME at this time.? HHC/SNF: Hx [facility] and [facility]. Discussed discharge planning, wound care, and possible IV atb's. Pt states he has not been OOB yet and is not sure how well he will do. He states, if needed, he would like to go to [facility] and declines list of other SNF choices. He states, if able to d/c home, then he would like [facility] and declines list of other HHC options. He states one of his sisters is an RN and works for [employer] and would be able to assist w/care, but she is currently in [place] for 2 weeks. He states he has another sister who also may be able to help. PLAN:??TBD by course of treatment and progress w/therapy. SNF vs C. ID c/s pending. Follow for possible IV atb's and wound care. PT/OT evals pending. Valentino BSN?RN?CM
--- NOTE | 2022-08-26 15:39 | PCM.PN.CARD ---
Subjective Subjective Seen evaluated at bedside today Along with the nursing staff Has mild retrosternal chest discomfort Objective Data Vital Signs: Vital Signs Temp Pulse Resp BP Pulse Ox O2 Del Method O2 Flow Rate 98.8 F 72 18 149/77 H 98 Nasal Cannula 2 08/26/22 08:00 08/26/22 11:00 08/26/22 11:00 08/26/22 11:00 08/26/22 11:00 08/26/22 12:00 08/26/22 12:00 Oxygen Flow Rate (L/min) 2 Oxygen Delivery Method Nasal Cannula Weight: 291 lb 0.163 oz Body Mass Index (BMI) 40.7 Intake & Output: Intake and Output for Last 24 Hours 08/24/22 08/25/22 08/26/22 23:59 23:59 23:59 Intake Total 860.25 / 860.25 2056.25 / 2056.25 Output Total 850 / 850 Balance 860.25 / 860.25 1206.25 / 1206.25 Lab / Micro Data Result Diagrams: 08/26/22 05:15 08/26/22 05:15 Labs: Laboratory Results - last 24 hr 08/25/22 12:51: BUN 109 H* 08/25/22 16:05: PT 16.2 H, INR 1.3, APTT 31.9 08/25/22 16:05: Sodium 135 L, Potassium 4.2, Chloride 104, Carbon Dioxide 22.0, Anion Gap 9, BUN 101 H*, Creatinine 4.17 H, Estim Creat Clear Calc 21.57, Est GFR (MDRD) Af Amer 19 L, Est GFR (MDRD) Non-Af 16 L, BUN/Creatinine Ratio 24.2 H, Glucose 216 H, Calcium 9.3, Total Bilirubin 0.40, AST 27, ALT 28, Alkaline Phosphatase 73, Troponin I High Sens 49, Total Protein 8.3 H, Albumin 2.5 L, Globulin 5.8 H, Albumin/Globulin Ratio 0.4 L 08/25/22 16:05: WBC 16.6 H, RBC 4.13 L, Hgb 10.2 L, Hct 34.2 L, MCV 82.8, MCH 24.7 L, MCHC 29.8 L, RDW Std Deviation 49.4 H, RDW Coeff of Rajendra 16.4 H, Plt Count 306, MPV 10.8 08/25/22 16:12: POC Glucose 231 H 08/25/22 17:30: Troponin I High Sens 68 08/25/22 19:05: Troponin I High Sens 128 H* 08/25/22 21:49: POC Glucose 209 H 08/25/22 23:35: Troponin I High Sens 173 H* 08/26/22 05:15: WBC 12.9 H, RBC 3.34 L, Hgb 8.3 L, Hct 27.2 L, MCV 81.4, MCH 24.9 L, MCHC 30.5 L, RDW Std Deviation 48.2 H, RDW Coeff of Rajendra 16.2 H, Plt Count 279, MPV 10.7, Immature Gran % (Auto) 0.600, Neut % (Auto) 84.1 H, Lymph % (Auto) 4.3 L, [place] % (Auto) 9.9, Eos % (Auto) 0.7, Baso % (Auto) 0.4, Absolute Neuts (auto) 10.8 H, Absolute Lymphs (auto) 0.55 L, Nucleated RBC % 0, Differential Comment SCANNED 08/26/22 05:15: Sodium 138, Potassium 4.1, Chloride 109 H, Carbon Dioxide 23.0, Anion Gap 6, BUN 101 H*, Creatinine 3.97 H, Estim Creat Clear Calc 22.66, Est GFR (MDRD) Af Amer 20 L, Est GFR (MDRD) Non-Af 17 L, BUN/Creatinine Ratio 25.4 H, Glucose 181 H, Calcium 8.1 L 08/26/22 11:03: POC Glucose 176 H Micro: Microbiology 08/25/22 Unknown Bone - 5th Toe Gram Stain - Final 08/25/22 Unknown Bone - 5th Toe Wound Culture - Preliminary Staphylococcus species 08/25/22 Unknown Wound - Toe Gram Stain - Final 08/25/22 Unknown Wound - Toe Wound Culture - Preliminary No growth-Final to follow 08/25/22 Unknown Tissue - 5th Toe Gram Stain - Final 08/25/22 Unknown Tissue - 5th Toe Wound Culture - Preliminary Staphylococcus species Cardiology Labs/Tests 08/25/22 12:51: BUN 109 H* 08/25/22 16:05: PT 16.2 H, INR 1.3, APTT 31.9 08/25/22 16:05: Sodium 135 L, Potassium 4.2, Chloride 104, Carbon Dioxide 22.0, Anion Gap 9, BUN 101 H*, Creatinine 4.17 H, Est GFR (MDRD) Af Amer 19 L, Est GFR (MDRD) Non-Af 16 L, BUN/Creatinine Ratio 24.2 H, Glucose 216 H, Calcium 9.3, Total Bilirubin 0.40 08/25/22 16:05: WBC 16.6 H, RBC 4.13 L, Hgb 10.2 L, Hct 34.2 L, MCV 82.8, MCH 24.7 L, MCHC 29.8 L, Plt Count 306, MPV 10.8 08/26/22 05:15: WBC 12.9 H, RBC 3.34 L, Hgb 8.3 L, Hct 27.2 L, MCV 81.4, MCH 24.9 L, MCHC 30.5 L, Plt Count 279, MPV 10.7, Immature Gran % (Auto) 0.600, Neut % (Auto) 84.1 H, Lymph % (Auto) 4.3 L, [place] % (Auto) 9.9, Eos % (Auto) 0.7, Baso % (Auto) 0.4, Absolute Neuts (auto) 10.8 H, Nucleated RBC % 0 08/26/22 05:15: Sodium 138, Potassium 4.1, Chloride 109 H, Carbon Dioxide 23.0, Anion Gap 6, BUN 101 H*, Creatinine 3.97 H, Est GFR (MDRD) Af Amer 20 L, Est GFR (MDRD) Non-Af 17 L, BUN/Creatinine Ratio 25.4 H, Glucose 181 H, Calcium 8.1 L Rhythm: EKG: ECHO: Stress Test: Cardiac Cath: PCI: CT Surgery: Holter monitor: EPS: PPM: CXR: Chest CT Scan: Radiography Diagnostic Testing: Radiology Impression Chest X-Ray 08/25/22 16:35 IMPRESSION: Limited by patient''s size and under exposure. Probable moderate diffuse pulmonary edema. Cardiomegaly. Electronically Signed: Ken Gary MD at 17:34 EDT , Echocardiogram 08/26/22 05:55 Interpretation Summary The estimated ejection fraction is 35-40 %. Small pericardial effusion Ordering Physician: Rosanna Garza Referring Physician: Joseph Ricks Performed By: Jennifer Cross, LIONCS, RVT Physical Exam Narrative Cardiac rhythm is sinus rhythm Hemodynamically stable Cardiovascular exam S1-S2 regular Chest exam clear to auscultation Assessment & Plan Assessment/Plan (1) Atherosclerotic heart disease of three affiliated coronary artery without angina pectoris: (2) Osteomyelitis of right foot: (3) Insulin dependent diabetes mellitus: (4) Postoperative cardiac arrest following non-cardiac surgery: PLAN: Plan 52-year-old patient With history of CAD prior coronary artery stent Patient has osteomyelitis of the right foot Underwent partial fifth ray resection on the right side While in the OR patient had a cardiac arrest during the surgical procedure as she has a CAD With a prior PCI and stent 5 stents Also patient has combined systolic and diastolic heart failure Hypertension Hyperlipidemia Diabetes mellitus Has renal insufficiency with elevated creatinine noted 3.97 Cardiac care plan recommendation I reviewed and discussed the current medication Chest discomfort likely secondary to the CPR Has a mild elevation of cardiac biomarker which is likely secondary to combined systolic diastolic heart failure with post cardiac arrest Requested nephrology consult And the echocardiographic evaluation showed reduced LV systolic function Ejection fraction in the range of 35-40% patient had history of PCI and stent of the left circumflex and D1 We will schedule for cardiac catheterization, high risk with risk of contrast-induced nephropathy We will continue to monitor and follow-up clinically on the current medication..
[2022-08-26 17:56] LABS: Bedside Glucose 220 mg/dL (74-106)
[2022-08-26] MEDS: Atorvastatin Calcium 80 MG Tablet PO (21:09)
[2022-08-27 03:30] VITALS: BP 123/68; PULSE 63; RESP 18; TEMP 36.8; O2SAT 95
[2022-08-27 04:28] VITALS: BMI 41.2
[2022-08-27 05:31] LABS: Absolute Lymphocyte Count 0.85 X10^3/uL (0.83-4.51); Absolute Neutrophil Count 7.8 X10^3/uL (2.0-7.7); Basophil# 0.07 X10^3/uL; Basophil% 0.7 % (0-1); Eosinophil# 0.25 X10^3/uL; Eosinophils% 2.5 % (0-5); Hematocrit 25.3 % (40-54); Hemoglobin 7.5 g/dL (13.0-16.5); Lymphocyte # 0.85 X10^3/ul (0.83-4.51); Lymphocyte % 8.6 % (19-41); Mean Corp Hgb Conc 29.6 g/dL (32-36); Mean Corpuscular Hgb 24.4 pg (27.0-32.0); Mean Corpuscular Volume 82.4 fL (80-94); Mean Platelet Vol. 10.7 fl (6.2-12.0); Monocyte# 0.91 X10^3/uL; Monocyte% 9.2 % (0-10); NRBC Flagged by Analyzer 0 % (0-5); Neutrophil # 7.76 X10^3/uL (2.7-7.7); Platelet Count 288 K/mm3 (150-450); RBC Distribution Width CV 16.4 % (11.6-14.6); RBC Distribution Width SD 49.5 fl (35.1-43.9); Red Blood Count 3.07 M/mm3 (4.6-6.2); White Blood Count 9.9 K/mm3 (4.4-11.0)
[2022-08-27 05:47] LABS: Anion Gap 7 (5-15); BUN 98 mg/dL (7-18); Calcium,Total 8.3 mg/dL (8.5-10.1); Chloride 109 mmol/L (98-107); Creatinine, Serum 4.26 mg/dL (0.70-1.30); EST Glomerular Filtration Rate 16 mL/min (>60); Est Glom Filt Rate - Afr Amer 19 mL/min (>60); Estimated Creatinine Clearance 21.11 ml/min; Glucose 170 mg/dL (74-106); Sodium Level 139 mmol/L (136-145)
[2022-08-27 05:50] LABS: Vancomycin, Random Level 12.5 ug/mL (0.0-15.0)
[2022-08-27 07:36] VITALS: O2SAT 94
--- NOTE | 2022-08-27 07:40 | NURSING ---
BGT was 112 per patients dexcom.
[2022-08-27 07:45] VITALS: BP 131/78; PULSE 65; RESP 16; TEMP 36.9; O2SAT 95
[2022-08-27] MEDS: Ferrous Sulfate 325 MG Tablet PO ×2 (07:59→17:54)
[2022-08-27] MEDS: Aspirin 81 MG TAB.CHEW PO (07:59)
[2022-08-27] MEDS: Carvedilol 25 MG Tablet PO ×2 (07:59→20:45)
[2022-08-27] MEDS: amLODIPine 5 MG Tablet PO (08:00)
[2022-08-27] MEDS: Isosorbide Mononitrate 60 MG Tablet PO (08:00)
[2022-08-27] MEDS: Clopidogrel Bisulfate 75 MG Tablet PO (08:00)
[2022-08-27] MEDS: Heparin Injection (Vial) 5,000 UNIT/ML VIAL 5000 UNIT SC ×2 (08:00→20:46)
[2022-08-27] MEDS: Ezetimibe 10 MG Tablet PO (08:01)
--- NOTE | 2022-08-27 09:44 | PN_ITS ---
Subjective Subjective Patient 2 day postop from right partial fifth ray resection. Denies constitutional's. Notes some chest pain. No pain to foot. No new complaints. No changes overnight. Objective Data Objective Data Vital Signs: Vital Signs Temp Pulse Resp BP Pulse Ox O2 Del Method O2 Flow Rate 98.5 F 65 16 131/78 H 95 Room Air 3.5 08/27/22 07:45 08/27/22 07:45 08/27/22 07:45 08/27/22 07:45 08/27/22 07:45 08/27/22 07:50 08/27/22 07:36 Oxygen Flow Rate (L/min) 3.5 Oxygen Delivery Method Room Air Weight: 133.6 kg Body Mass Index (BMI) 41.2 Intake & Output: Intake and Output for Last 24 Hours 08/25/22 08/26/22 08/27/22 23:59 23:59 23:59 Intake Total 860.25 / 860.25 2106.25 / 2506.25 450 / 450 Output Total 2675 / 2675 550 / 550 Balance 860.25 / 860.25 -568.75 / -168.75 -100 / -100 Lab / Micro Data Result Diagrams: 08/27/22 04:45 08/27/22 04:45 Labs: Laboratory Results - last 24 hr 08/26/22 11:03: POC Glucose 176 H 08/26/22 16:57: POC Glucose 220 H 08/27/22 04:45: Random Vancomycin 12.5 08/27/22 04:45: WBC 9.9, RBC 3.07 L, Hgb 7.5 L, Hct 25.3 L, MCV 82.4, MCH 24.4 L , MCHC 29.6 L, RDW Std Deviation 49.5 H, RDW Coeff of Rajendra 16.4 H, Plt Count 288, MPV 10.7, Immature Gran % (Auto) 1.000 H, Neut % (Auto) 78.0 H, Lymph % (Auto) 8.6 L, [place] % (Auto) 9.2, Eos % (Auto) 2.5, Baso % (Auto) 0.7, Absolute Neuts (auto) 7.8 H, Absolute Lymphs (auto) 0.85, Nucleated RBC % 0 08/27/22 04:45: Sodium 139, Potassium 4.0, Chloride 109 H, Carbon Dioxide 23.0, Anion Gap 7, BUN 98 H, Creatinine 4.26 H, Estim Creat Clear Calc 21.11, Est GFR (MDRD) Af Amer 19 L, Est GFR (MDRD) Non-Af 16 L, BUN/Creatinine Ratio 23.0 H, Glucose 170 H, Calcium 8.3 L Micro: Microbiology 08/25/22 Unknown Wound - Toe Gram Stain - Final 08/25/22 Unknown Wound - Toe Wound Culture - Preliminary Gram positive organism 08/25/22 Unknown Bone - 5th Toe Gram Stain - Final 08/25/22 Unknown Bone - 5th Toe Wound Culture - Final Meth. resistant Staph. aureus 08/25/22 Unknown Tissue - 5th Toe Gram Stain - Final 08/25/22 Unknown Tissue - 5th Toe Wound Culture - Final Meth. resistant Staph. aureus Radiography Diagnostic Testing: Radiology Impression Echocardiogram 08/26/22 05:55 Interpretation Summary The estimated ejection fraction is 35-40 %. Small pericardial effusion Ordering Physician: Rosanna Garza Referring Physician: Joseph Ricks Performed By: Jennifer Cross, LIONCS, RVT Physical Exam Narrative Neurovascular status unchanged. Full-thickness incision from the right lateral partial fifth ray resection noted to be well approximated with intact vessel loop closure. There is noted to be mild sanguinous drainage from the site. Resolving erythema edema. No residual purulence at this time. Absent fifth toe. Right lower extremity swelling. Assessment & Plan Assessment/Plan (1) Ulcer of right foot with fat layer exposed: PLAN: Exam performed. Patient vitally stable at current. Patient to go for cardiac cath tomorrow. Wound to right foot appears stable resolved leukocytosis patient vitally stable. Patient on IV vancomycin and Zosyn. Infectious disease consulted. Wound culture growing MRSA. Tissue culture from the OR growing gram-positive species. Patient maintain nonweightbearing right lower extremity. Patient can bear weight heel for transfer purposes. Incision examined today appears stable. Redressed with Betadine Adaptic 4 x 4's Kerlix and Leonides. We will continue to follow daily. (2) Osteomyelitis of right foot: (3) Other acute osteomyelitis, right ankle and foot: (4) Type 2 diabetes mellitus with diabetic polyneuropathy:
[2022-08-27] MEDS: Insulin Glargine-YFGN 100 UNIT/ML Pen 20 UNIT SC ×2 (10:45→20:46)
--- NOTE | 2022-08-27 11:51 | PCM.PN.HOSP ---
Reason for Visit Reason for Visit: Diagnoses Type 2 diabetes mellitus with diabetic polyneuropathy (08/25/22) Atherosclerotic heart disease of [place] coronary artery without angina pectoris (08/25/22) Postprocedural cardiac arrest following other surgery (08/25/22) Non-pressure chronic ulcer of other part of right foot with fat layer exposed (08/25/22) Other acute osteomyelitis, right ankle and foot (08/25/22) Osteomyelitis, unspecified (08/25/22) Chronic kidney disease, stage 3a (08/25/22) Subjective Subjective BloodPatient was seen and examined today, I briefly talked with cardiology and podiatry about his care. The plan is for the patient undergo cardiac catheterization tomorrow. Today was 7.5 Objective Data Objective Data Vital Signs: Vital Signs Temp Pulse Resp BP Pulse Ox O2 Del Method O2 Flow Rate 98.5 F 65 16 131/78 H 95 Room Air 3.5 08/27/22 07:45 08/27/22 07:45 08/27/22 07:45 08/27/22 07:45 08/27/22 07:45 08/27/22 07:50 08/27/22 07:36 Oxygen Flow Rate (L/min) 3.5 Oxygen Delivery Method Room Air Weight: 133.6 kg Body Mass Index (BMI) 41.2 Intake & Output: Intake and Output for Last 24 Hours 08/25/22 08/26/22 08/27/22 23:59 23:59 23:59 Intake Total 860.25 / 860.25 2106.25 / 2506.25 500 / 500 Output Total 2675 / 2675 550 / 550 Balance 860.25 / 860.25 -568.75 / -168.75 -50 / -50 Lab / Micro Data Result Diagrams: 08/27/22 04:45 08/27/22 04:45 Labs: Laboratory Results - last 24 hr 08/26/22 16:57: POC Glucose 220 H 08/27/22 04:45: Random Vancomycin 12.5 08/27/22 04:45: WBC 9.9, RBC 3.07 L, Hgb 7.5 L, Hct 25.3 L, MCV 82.4, MCH 24.4 L, MCHC 29.6 L, RDW Std Deviation 49.5 H, RDW Coeff of Rajendra 16.4 H, Plt Count 288, MPV 10.7, Immature Gran % (Auto) 1.000 H, Neut % (Auto) 78.0 H, Lymph % (Auto) 8.6 L, [place] % (Auto) 9.2, Eos % (Auto) 2.5, Baso % (Auto) 0.7, Absolute Neuts (auto) 7.8 H, Absolute Lymphs (auto) 0.85, Nucleated RBC % 0 08/27/22 04:45: Sodium 139, Potassium 4.0, Chloride 109 H, Carbon Dioxide 23.0, Anion Gap 7, BUN 98 H, Creatinine 4.26 H, Estim Creat Clear Calc 21.11, Est GFR (MDRD) Af Amer 19 L, Est GFR (MDRD) Non-Af 16 L, BUN/Creatinine Ratio 23.0 H, Glucose 170 H, Calcium 8.3 L Micro: Microbiology 08/25/22 Unknown Wound - Toe Gram Stain - Final 08/25/22 Unknown Wound - Toe Wound Culture - Preliminary Gram positive organism 08/25/22 Unknown Bone - 5th Toe Gram Stain - Final 08/25/22 Unknown Bone - 5th Toe Wound Culture - Final Meth. resistant Staph. aureus 08/25/22 Unknown Tissue - 5th Toe Gram Stain - Final 08/25/22 Unknown Tissue - 5th Toe Wound Culture - Final Meth. resistant Staph. aureus Radiography Diagnostic Testing: Radiology Impression Echocardiogram 08/26/22 05:55 Interpretation Summary The estimated ejection fraction is 35-40 %. Small pericardial effusion Ordering Physician: Rosanna Garza Referring Physician: Joseph Ricks Performed By: Jennifer Cross, KAMINI, RVT Physical Exam Const alert, oriented x3 and no apparent distress Constitutional Narrative: Patient is morbidly obese General Appearance: cooperative, well kempt and well developed Orientation / Consciousness: awake, oriented to person, oriented to place and oriented to time HEENT normocephalic and moist oral mucous membranes Eyes PERRL, EOMs intact bilaterally and conjunctivae normal Neck supple, no JVD, thyroid normal and no carotid bruits General: trachea midline Resp normal respiratory effort, no retractions, no use of accessory muscles and clear to auscultation bilaterally Auscultation: Negative for rales, rhonchi or wheezes Cardio regular rate, regular rhythm, S1 normal heart sound, S2 normal heart sound, no murmurs, no rub and no gallops GI normal to inspection, nondistended, normoactive bowel sounds, soft to palpation, non-tender and non-distended Extremity Extremity Narrative: Patient's right foot is wrapped with surgical dressing, this was not removed for examination of the foot. Skin no rashes or lesions noted General Skin Exam: no breakdown Neuro oriented x3, CN's II-XII intact bilaterally, moves all extremities and no focal motor deficits Sensorium / Orientation: awake, alert, oriented to person, oriented to place and oriented to time Speech: speech normal Psych affect normal Assessment & Plan Assessment/Plan (1) Osteomyelitis of right foot: PLAN: Plan 1. Right fifth toe osteomyelitis-status post partial fifth ray resection right foot on 08/25/2022-surgical care per podiatry at this time #2 status postcardiac arrest in the operating room during his surgery-etiology unclear at this point, patient will undergo cardiac catheterization tomorrow #3 type 2 diabetes-blood sugars will be monitored, sliding scale insulin will use as needed #4 ischemic cardiomyopathy-patient's last echocardiogram on 08/26/2022 showed an EF of 35 to 40%, again cardiology is participating in his care, he will undergo cardiac catheterization tomorrow #5 morbid obesity-complicates care, medical course, recovery, and prognosis #6 stage IV chronic kidney disease secondary to type 2 diabetes-complicates care, medical course, recovery, and prognosis, labs will be monitored #7 anemia secondary to chronic kidney disease on a backdrop of iron deficiency anemia-patient's CBC will be monitored as appropriate, he does not require blood transfusion at this time Total clinical time spent by myself addressing the patient's medical issues, reviewing all of his data, and collaborating with patient's care team: 35-minute Charges/Coding Visit Charges Inpatient E&M: 17381 Subs Hosp L2
[2022-08-27 13:40] VITALS: BP 136/80; PULSE 68; RESP 16; TEMP 36.4; O2SAT 94
--- NOTE | 2022-08-27 14:14 | CON.PCM.RE_ITS ---
Assessment & Plan Assessment/Plan (1) Ischemic cardiomyopathy: PLAN: Plan Acute renal failure CKD stage IV Baseline creatinine seems to be around 3 although he has had several episodes of CORA in the last 2 months due to other events. CKD is related to diabetes. History of poorly controlled diabetes, recently better controlled. He does have nonnephrotic range proteinuria. Current episode of CORA is likely related to decompensated heart failure, sepsis. No obstructive symptoms. He was borderline for dialysis even before. Currently does not have a fistula. He will need coronary intervention tomorrow. Explained the risk of contrast nephropathy. He is agreeable to proceed with a coronary angiogram. Continue same medications as now. Vancomycin dosing as per trough levels. HPI Consult Data Date of Consult: 08/27/22 HPI Narrative Reason for Consultation: CKD stage IV/V HPI Narrative: YOSEPH PERSAUD, is a 52 M who presents to the hospital with toe osteomyelitis. He is status post ray amputation. Surgical intervention complicated by cardiac arrest in the OR. Was successfully resuscitated. He has known history of CKD stage IV, baseline creatinine around 3. Presumably due to diabetes. He does have proteinuria of almost 3 g. Prior serological work-up negative. We were in the process of arranging indication about dialysis due to advanced kidney disease. He is now in with to osteomyelitis. On broad-spectrum antibiotic coverage. Denies any obstructive symptoms. He does have moderate amount of lower extremity edema. Echocardiogram shows mild pericardial effusion, ejection fraction of 35 to 40%. He is scheduled for coronary angiogram tomorrow. Review of systems is negative except above PFSH Medical History Anemia in chronic illness Atherosclerotic heart disease of [place] coronary artery without angina pectoris Carotid artery stenosis Chronic diastolic (congestive) heart failure Chronic kidney disease Chronic kidney disease Chronic kidney disease, stage 3a Coronary artery disease Depression Diabetes mellitus Diabetes mellitus with diabetic polyneuropathy Diabetes mellitus, type II Diabetic infection of left foot Edema, peripheral Essential (primary) hypertension History of non-ST elevation myocardial infarction (NSTEMI) (03/15/20) History of stress test Hyperlipidemia Hyperlipidemia Hypertension Hypertension Hypomagnesemia Infected sebaceous cyst Insulin dependent diabetes mellitus Ischemic cardiomyopathy (06/2013) Left ventricular systolic dysfunction (LVSD) Non-pressure 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 of bone Non-pressure chronic ulcer of other part of left foot with fat layer exposed Non-pressure chronic ulcer of other part of left foot with fat layer exposed Obesity Paresthesias Partial nontraumatic amputation of right foot Pneumonia due to COVID-19 virus (03/14/20) Type 2 diabetes mellitus with diabetic neuropathy, unspecified Type 2 diabetes mellitus with diabetic polyneuropathy Type 2 diabetes mellitus with foot ulcer Ulcer of right foot with fat layer exposed Venous insufficiency Venous insufficiency of both lower extremities Home Medications aspirin 81 mg chewable tablet 81 mg PO DAILY@0800 heart 09/28/14 [History Last Taken 12/20/18] atorvastatin 80 mg tablet 80 mg PO QHS cholesterol 30 days #30 tabs 06/21/21 [Rx Last Taken Unknown] clopidogrel 75 mg tablet 75 mg PO DAILY Blood Thinner 30 days #30 tabs 06/21/21 [Rx Last Taken Unknown] insulin glargine 100 unit/mL (3 mL) subcutaneous pen (Lantus Solostar U-100 Insulin) 20 unit (0.2 mL) subcut BID Diabetes 30 days #12 mL 06/21/21 [Rx Last Taken Unknown] isosorbide mononitrate 60 mg tablet,extended release 24 hr 60 mg PO DAILY Heart 30 days #30 tabs 01/12/22 [Rx Last Taken Unknown] ezetimibe 10 mg tablet 10 mg PO DAILY cholesterol 04/07/22 [History Last Taken Unknown] carvedilol 25 mg tablet 25 mg PO BID #180 tabs 05/25/22 [Rx Last Taken Unknown] amlodipine 5 mg tablet 5 mg PO DAILY . 06/05/22 [History Last Taken Unknown] ferrous sulfate 325 mg (65 mg iron) tablet (FeroSul) 325 mg PO BID #60 tabs 06/08/22 [Rx Last Taken Unknown] furosemide 20 mg tablet (Lasix) 20 mg PO BID #180 tabs 06/08/22 [Rx Last Taken Unknown] ciprofloxacin HCl 500 mg tablet (Cipro) 500 mg PO BID #7 tabs 08/24/22 [Rx Last Taken Unknown] doxycycline monohydrate 100 mg capsule 100 mg PO BID #14 CAPSULES 08/24/22 [Rx Last Taken Unknown] Allergy/AdvReac Type Severity Reaction Status Date / Time lisinopril AdvReac Intermediate Cough Verified 08/24/22 17:08 losartan AdvReac Intermediate cough Verified 08/24/22 17:08 Family History Father , Age 57 from [place] Myocardial infarction CAD (coronary artery disease) Sudden cardiac Mother Sick sinus syndrome Sister Diabetes Surgical History H/O cardiac catheterization History of coronary artery stent placement (01/02/19) Social History household members: none Smoking Status: Never smoker alcohol intake: current alcohol intake frequency: holidays/special occasions only substance use type: does not use caffeine: Yes Type: carbonated beverages Number of servings: 2 Physical Exam Narrative Alert awake oriented x 3 no obvious distress no pallor no icterus no JVD s1s2 no murmurs lungs clear abdomen soft no organomegaly + edema no cyanosis Lab / Micro Data Result Diagrams: 08/27/22 04:45 08/27/22 04:45 Labs: Laboratory Results - last 24 hr 08/26/22 16:57: POC Glucose 220 H 08/27/22 04:45: Random Vancomycin 12.5 08/27/22 04:45: WBC 9.9, RBC 3.07 L, Hgb 7.5 L, Hct 25.3 L, MCV 82.4, MCH 24.4 L , MCHC 29.6 L, RDW Std Deviation 49.5 H, RDW Coeff of Rajendra 16.4 H, Plt Count 288, MPV 10.7, Immature Gran % (Auto) 1.000 H, Neut % (Auto) 78.0 H, Lymph % (Auto) 8.6 L, [place] % (Auto) 9.2, Eos % (Auto) 2.5, Baso % (Auto) 0.7, Absolute Neuts (auto) 7.8 H, Absolute Lymphs (auto) 0.85, Nucleated RBC % 0 08/27/22 04:45: Sodium 139, Potassium 4.0, Chloride 109 H, Carbon Dioxide 23.0, Anion Gap 7, BUN 98 H, Creatinine 4.26 H, Estim Creat Clear Calc 21.11, Est GFR (MDRD) Af Amer 19 L, Est GFR (MDRD) Non-Af 16 L, BUN/Creatinine Ratio 23.0 H, Glucose 170 H, Calcium 8.3 L Micro: Microbiology 08/25/22 Unknown Wound - Toe Gram Stain - Final 08/25/22 Unknown Wound - Toe Wound Culture - Preliminary Gram positive organism 08/25/22 Unknown Bone - 5th Toe Gram Stain - Final 08/25/22 Unknown Bone - 5th Toe Wound Culture - Final Meth. resistant Staph. aureus 08/25/22 Unknown Tissue - 5th Toe Gram Stain - Final 08/25/22 Unknown Tissue - 5th Toe Wound Culture - Final Meth. resistant Staph. aureus
--- NOTE | 2022-08-27 14:14 | PN.CARD_ITS ---
Subjective Subjective Seen and evaluated at bedside No symptoms reported he does not have any symptoms of chest pain. Objective Data Vital Signs: Vital Signs Temp Pulse Resp BP Pulse Ox O2 Del Method O2 Flow Rate 98.5 F 65 16 131/78 H 95 Room Air 3.5 08/27/22 07:45 08/27/22 07:45 08/27/22 07:45 08/27/22 07:45 08/27/22 07:45 08/27/22 07:50 08/27/22 07:36 Oxygen Flow Rate (L/min) 3.5 Oxygen Delivery Method Room Air Weight: 294 lb 8.601 oz Body Mass Index (BMI) 41.2 Intake & Output: Intake and Output for Last 24 Hours 08/25/22 08/26/22 08/27/22 23:59 23:59 23:59 Intake Total 860.25 / 860.25 2106.25 / 2506.25 975 / 975 Output Total 2675 / 2675 550 / 550 Balance 860.25 / 860.25 -568.75 / -168.75 425 / 425 Lab / Micro Data Result Diagrams: 08/27/22 04:45 08/27/22 04:45 Labs: Laboratory Results - last 24 hr 08/26/22 16:57: POC Glucose 220 H 08/27/22 04:45: Random Vancomycin 12.5 08/27/22 04:45: WBC 9.9, RBC 3.07 L, Hgb 7.5 L, Hct 25.3 L, MCV 82.4, MCH 24.4 L , MCHC 29.6 L, RDW Std Deviation 49.5 H, RDW Coeff of Rajendra 16.4 H, Plt Count 288, MPV 10.7, Immature Gran % (Auto) 1.000 H, Neut % (Auto) 78.0 H, Lymph % (Auto) 8.6 L, [place] % (Auto) 9.2, Eos % (Auto) 2.5, Baso % (Auto) 0.7, Absolute Neuts (auto) 7.8 H, Absolute Lymphs (auto) 0.85, Nucleated RBC % 0 08/27/22 04:45: Sodium 139, Potassium 4.0, Chloride 109 H, Carbon Dioxide 23.0, Anion Gap 7, BUN 98 H, Creatinine 4.26 H, Estim Creat Clear Calc 21.11, Est GFR (MDRD) Af Amer 19 L, Est GFR (MDRD) Non-Af 16 L, BUN/Creatinine Ratio 23.0 H, Glucose 170 H, Calcium 8.3 L Micro: Microbiology 08/25/22 Unknown Wound - Toe Gram Stain - Final 08/25/22 Unknown Wound - Toe Wound Culture - Preliminary Gram positive organism 08/25/22 Unknown Bone - 5th Toe Gram Stain - Final 08/25/22 Unknown Bone - 5th Toe Wound Culture - Final Meth. resistant Staph. aureus 08/25/22 Unknown Tissue - 5th Toe Gram Stain - Final 08/25/22 Unknown Tissue - 5th Toe Wound Culture - Final Meth. resistant Staph. aureus Cardiology Labs/Tests 08/27/22 04:45: WBC 9.9, RBC 3.07 L, Hgb 7.5 L, Hct 25.3 L, MCV 82.4, MCH 24.4 L , MCHC 29.6 L, Plt Count 288, MPV 10.7, Immature Gran % (Auto) 1.000 H, Neut % (Auto) 78.0 H, Lymph % (Auto) 8.6 L, [place] % (Auto) 9.2, Eos % (Auto) 2.5, Baso % (Auto) 0.7, Absolute Neuts (auto) 7.8 H, Nucleated RBC % 0 08/27/22 04:45: Sodium 139, Potassium 4.0, Chloride 109 H, Carbon Dioxide 23.0, Anion Gap 7, BUN 98 H, Creatinine 4.26 H, Est GFR (MDRD) Af Amer 19 L, Est GFR (MDRD) Non-Af 16 L, BUN/Creatinine Ratio 23.0 H, Glucose 170 H, Calcium 8.3 L Rhythm: EKG: ECHO: Stress Test: Cardiac Cath: PCI: CT Surgery: Holter monitor: EPS: PPM: CXR: Chest CT Scan: Physical Exam Narrative Review of aoc plans intelligence officer chief showed underlying normal sinus Cardiovascular exam S1-S2 regular Chest exam clear to auscultation bilateral Assessment & Plan Assessment/Plan (1) Osteomyelitis of right foot: (2) Insulin dependent diabetes mellitus: (3) Hyperlipidemia: (4) Atherosclerotic heart disease of [place] coronary artery without angina pectoris: (5) Chronic diastolic (congestive) heart failure: (6) Diabetes mellitus: (7) Postoperative cardiac arrest following non-cardiac surgery: PLAN: 52-year-old patient with bouts of cardiac arrest. Patient seen and evaluated today at bedside he does not have any active symptoms of chest pain Patient had history of diabetes with osteomyelitis of the right foot As cardiac arrest while in OR resuscitated maintain ROSC And was sent over to ICU for observation Where he had mild symptoms of chest pain with subsequent elevation of cardiac biomarkers elevated high sensitive troponin mildly Patient known to have history of CAD with history of PCI stent of the left circumflex and diagonal branch Cardiac care plan recommendations; 1. I reviewed his current medication Patient has renal insufficiency which is chronic renal disease with worsening renal insufficiency, creatinine up to to 4.26 2. I consulted log rafter prior to undergo cardiac catheterization as he had a history of CAD Also on the echocardiogram had worsening of his LV systolic function with ejection fraction in the range of 35-40% Clinically he remained stable he does not have any active symptoms of chest pain However patient does have a history of diabetes with diabetic polyneuropathy and osteomyelitis.
--- NOTE | 2022-08-27 17:50 | NURSING ---
PTs BGT was 135 on dexcom.
[2022-08-27 17:58] VITALS: BP 158/77; PULSE 69; RESP 16; TEMP 36.2; O2SAT 95
--- NOTE | 2022-08-27 19:08 | PCM.RX.CS ---
Consult Pharmacy has been consulted to manage selected antiobiotic: Vancomycin Suspected Infection: Osteomyelitis Labs: Sodium 139 mmol/L (136-145) 08/27/22 04:45 Potassium 4.0 mmol/L (3.5-5.1) 08/27/22 04:45 Chloride 109 mmol/L (98-107) H 08/27/22 04:45 Carbon Dioxide 23.0 mmol/L (21.0-32.0) 08/27/22 04:45 Anion Gap 7 (5-15) 08/27/22 04:45 BUN 98 mg/dL (7-18) H 08/27/22 04:45 Creatinine 4.26 mg/dL (0.70-1.30) H 08/27/22 04:45 Est GFR (MDRD) Af Amer 19 mL/min (>60) L 08/27/22 04:45 Est GFR (MDRD) Non-Af 16 mL/min (>60) L 08/27/22 04:45 BUN/Creatinine Ratio 23.0 RATIO (10-20) H 08/27/22 04:45 Glucose 170 mg/dL (74-106) H 08/27/22 04:45 Random Vancomycin 12.5 ug/mL (0.0-15.0) 08/27/22 04:45 Microbiology: Microbiology 08/25/22 Unknown Wound - Toe Gram Stain - Final 08/25/22 Unknown Wound - Toe Wound Culture - Preliminary Gram positive organism 08/25/22 Unknown Bone - 5th Toe Gram Stain - Final 08/25/22 Unknown Bone - 5th Toe Wound Culture - Final Meth. resistant Staph. aureus 08/25/22 Unknown Tissue - 5th Toe Gram Stain - Final 08/25/22 Unknown Tissue - 5th Toe Wound Culture - Final Meth. resistant Staph. aureus Goal Trough: 15-20 mcg/mL Pharmacy Plan for Drug Dosing: VANCOMYCIN LEVEL RECEIVED Current Vancomycin Dose: on hold due to renal function Number of Doses Received: x1 2000mg dose Vancomycin Level: random level resulted at 12.9 Hours Since Last Dose: Renal Function: SrCr 4.26 Renal Function Trend: SrCr is increasing (was 3.97 on 08/26/22) Lab/Micro: Vancomycin Plan/Comments: recommend a x1 dose of 1000mg on 08/27/22 and checking a level 08/28/22 Pending Level: random level 08/28/22 at 0600 Pharmacy Service will continue to monitor and adjust dosing as required. Follow-Up Labs: Trough Vancomycin - 08/28/22 at 0600 (random level)
[2022-08-27] MEDS: Vancomycin IV 1,000 MG/200 ML BAG 200 MG IV (20:35)
[2022-08-27] MEDS: Atorvastatin Calcium 80 MG Tablet PO (20:47)
[2022-08-27 21:40] LABS: Bedside Glucose 229 mg/dL (74-106)
[2022-08-27 23:58] VITALS: BP 148/73; PULSE 72; RESP 20; TEMP 36.8; O2SAT 88; O2SAT 94
[2022-08-28] VITALS (14 sets, daily range): BP systolic 125–168; BP diastolic 59–98; PULSE 65–68; RESP 14–20; TEMP 36.1–37.1; O2SAT 85–96; BMI 42.5
[2022-08-28] MEDS: 0.9% Saline Lock 10 ML Syringe IV (05:28)
[2022-08-28] MEDS: Aspirin 81 MG TAB.CHEW PO (05:29)
[2022-08-28] MEDS: Carvedilol 25 MG Tablet PO ×2 (05:29→20:50)
[2022-08-28] MEDS: Isosorbide Mononitrate 60 MG Tablet PO (05:30)
[2022-08-28] MEDS: amLODIPine 5 MG Tablet PO (05:30)
[2022-08-28] MEDS: Clopidogrel Bisulfate 75 MG Tablet PO (05:30)
--- NOTE | 2022-08-28 05:55 | EKG12_ITS ---
Test Reason : HEART CATH Blood Pressure : / mmHG Vent. Rate : 065 BPM Atrial Rate : 065 BPM P-R Int : 192 ms QRS Dur : 116 ms QT Int : 412 ms P-R-T Axes : 051 036 162 degrees QTc Int : 428 ms Normal sinus rhythm Minimal voltage criteria for LVH, may be normal variant ( [place] product ) Inferior infarct , age undetermined ST & T wave abnormality, consider lateral ischemia Abnormal ECG When compared with ECG of 25-AUG-2022 16:23, MANUAL COMPARISON REQUIRED, DATA IS UNCONFIRMED Confirmed by DANNY NUNEZ, CHAPARRO ([id number]), publication editor ISRAEL MALIK ([id number]) on 08/29/2022 9:07:33 AM Referred By: Confirmed By:CHAPARRO DELGADO MD
[2022-08-28 06:25] LABS: Absolute Lymphocyte Count 0.85 X10^3/uL (0.83-4.51); Absolute Neutrophil Count 9.1 X10^3/uL (2.0-7.7); Basophil# 0.08 X10^3/uL; Basophil% 0.7 % (0-1); Eosinophil# 0.37 X10^3/uL; Eosinophils% 3.3 % (0-5); Hematocrit 26.7 % (40-54); Lymphocyte # 0.85 X10^3/ul (0.83-4.51); Lymphocyte % 7.5 % (19-41); Mean Corpuscular Hgb 24.8 pg (27.0-32.0); Mean Corpuscular Volume 82.9 fL (80-94); Mean Platelet Vol. 10.4 fl (6.2-12.0); Monocyte# 0.91 X10^3/uL; NRBC Flagged by Analyzer 0 % (0-5); Neutrophil # 9.07 X10^3/uL (2.7-7.7); Neutrophil % 79.7 % (47-70); Platelet Count 319 K/mm3 (150-450); RBC Distribution Width SD 48.7 fl (35.1-43.9); Red Blood Count 3.22 M/mm3 (4.6-6.2); White Blood Count 11.4 K/mm3 (4.4-11.0)
[2022-08-28 07:03] LABS: Vancomycin, Random Level 18.8 ug/mL (0.0-15.0)
[2022-08-28 07:11] LABS: Bedside Glucose 112 mg/dL (74-106)
--- NOTE | 2022-08-28 07:44 | PCM.PN.CARD ---
Objective Data Vital Signs: Vital Signs Temp Pulse Resp BP Pulse Ox O2 Del Method O2 Flow Rate 98.2 F 66 20 H 157/84 H 96 Nasal Cannula 2 08/28/22 05:00 08/28/22 05:00 08/28/22 05:00 08/28/22 05:00 08/28/22 05:00 08/28/22 05:00 08/28/22 05:00 Oxygen Flow Rate (L/min) 2 Oxygen Delivery Method Nasal Cannula Weight: 304 lb 3.2 oz Body Mass Index (BMI) 42.5 Intake & Output: Intake and Output for Last 24 Hours 08/26/22 08/27/22 08/28/22 23:59 23:59 23:59 Intake Total 2106.25 / 2506.25 2085 / 2085 319.5 / 319.5 Output Total 2675 / 2675 1999 / 1999 350 / 350 Balance -568.75 / -168.75 85 / 85 -30.5 / -30.5 Lab / Micro Data Result Diagrams: 08/28/22 05:55 08/27/22 04:45 Labs: Laboratory Results - last 24 hr 08/27/22 20:44: POC Glucose 229 H 08/28/22 05:55: C-React Prot Ext Range 66.40 H 08/28/22 05:55: WBC 11.4 H, RBC 3.22 L, Hgb 8.0 L, Hct 26.7 L, MCV 82.9, MCH 24.8 L, MCHC 30.0 L, RDW Std Deviation 48.7 H, RDW Coeff of Rajendra 16.0 H, Plt Count 319, MPV 10.4, Immature Gran % (Auto) 0.800, Neut % (Auto) 79.7 H, Lymph % (Auto) 7.5 L, [place] % (Auto) 8.0, Eos % (Auto) 3.3, Baso % (Auto) 0.7, Absolute Neuts (auto) 9.1 H, Absolute Lymphs (auto) 0.85, Nucleated RBC % 0 08/28/22 05:55: Random Vancomycin 18.8 H 08/28/22 06:39: POC Glucose 112 H Micro: Microbiology 08/25/22 Unknown Wound - Toe Gram Stain - Final 08/25/22 Unknown Wound - Toe Wound Culture - Preliminary Gram positive organism 08/25/22 Unknown Bone - 5th Toe Gram Stain - Final 08/25/22 Unknown Bone - 5th Toe Wound Culture - Final Meth. resistant Staph. aureus 08/25/22 Unknown Tissue - 5th Toe Gram Stain - Final 08/25/22 Unknown Tissue - 5th Toe Wound Culture - Final Meth. resistant Staph. aureus Cardiology Labs/Tests 08/28/22 05:55: WBC 11.4 H, RBC 3.22 L, Hgb 8.0 L, Hct 26.7 L, MCV 82.9, MCH 24.8 L, MCHC 30.0 L, Plt Count 319, MPV 10.4, Immature Gran % (Auto) 0.800, Neut % (Auto) 79.7 H, Lymph % (Auto) 7.5 L, [place] % (Auto) 8.0, Eos % (Auto) 3.3, Baso % (Auto) 0.7, Absolute Neuts (auto) 9.1 H, Nucleated RBC % 0 Rhythm: EKG: ECHO: Stress Test: Cardiac Cath: PCI: CT Surgery: Holter monitor: EPS: PPM: CXR: Chest CT Scan: Physical Exam Const alert, oriented x3 and no apparent distress General Appearance: cooperative HEENT hearing grossly normal bilaterally Head and Scalp: atraumatic Eyes EOMs intact bilaterally Neck General: normal visual inspection Chest inspection of chest normal and palpation of chest normal Resp normal respiratory effort Auscultation: clear to auscultation bilaterally Cardio regular rate, regular rhythm, S1 normal heart sound and S2 normal heart sound Jugular Venous Distention: JVD GI normal to inspection, nondistended, normoactive bowel sounds Extremity normal capillary refill and no pedal edema Peripheral Pulses: Yes pulses 2+ throughout and femoral pulses present Skin no rashes or lesions noted Neuro oriented x3 and CN's II-XII intact bilaterally Psych Appearance: grossly normal and appropriate Assessment & Plan Assessment/Plan (1) Postoperative cardiac arrest following non-cardiac surgery: PLAN: The patient and apparently had what appeared to be a postoperative cardiac arrest following noncardiac surgery. It appears that this was more respiratory induced. Cardiac troponin enzymes did not elevate. My recommendation would be to obtain a pharmacologic stress test. Unless there is significant ischemia noted I would not proceed with a left heart catheterization especially considering his tenuous renal issues. (2) Ischemic cardiomyopathy: PLAN: He does have evidence of ischemic cardiomyopathy. His last estimated ejection fraction was 35 to 40%. We will continue with guideline directed medical therapy. (3) Chronic diastolic (congestive) heart failure: PLAN: He does appear to have heart failure with reduced ejection fraction. My recommendation is to continue with the current guideline directed medical therapy. His ejection fraction appears to be over 35% and thus I do not think that he is a candidate for an implantable defibrillator. (4) Hypertension: PLAN: He does have a history of hypertension his blood pressure is under decent control. The plan will be to keep on the same without us making any changes. (5) CAD (coronary artery disease): PLAN: He does have a history of coronary artery disease status post previous PCI involving the left anterior descending artery and diagonal. This will be evaluated depending on the findings of the stress test. Thank you for allowing me to participate in the care of your patient. Please don't hesitate to call if any issues arise.
--- NOTE | 2022-08-28 08:23 | PCM.RX.CS ---
Consult Pharmacy has been consulted to manage selected antiobiotic: Vancomycin Type of Consult: Follow-up Suspected Infection: Osteomyelitis Prior Doses of Antibiotics Received/Current Regimen: 08/25/22 2000MG X1 08/27/22 1000MG X1 Labs: Sodium 139 mmol/L (136-145) 08/27/22 04:45 Potassium 4.0 mmol/L (3.5-5.1) 08/27/22 04:45 Chloride 109 mmol/L (98-107) H 08/27/22 04:45 Carbon Dioxide 23.0 mmol/L (21.0-32.0) 08/27/22 04:45 Anion Gap 7 (5-15) 08/27/22 04:45 BUN 98 mg/dL (7-18) H 08/27/22 04:45 Creatinine 4.26 mg/dL (0.70-1.30) H 08/27/22 04:45 Est GFR (MDRD) Af Amer 19 mL/min (>60) L 08/27/22 04:45 Est GFR (MDRD) Non-Af 16 mL/min (>60) L 08/27/22 04:45 BUN/Creatinine Ratio 23.0 RATIO (10-20) H 08/27/22 04:45 Glucose 170 mg/dL (74-106) H 08/27/22 04:45 Random Vancomycin 18.8 ug/mL (0.0-15.0) H 08/28/22 05:55 Microbiology: Microbiology 08/25/22 Unknown Wound - Toe Gram Stain - Final 08/25/22 Unknown Wound - Toe Wound Culture - Preliminary Gram positive organism 08/25/22 Unknown Bone - 5th Toe Gram Stain - Final 08/25/22 Unknown Bone - 5th Toe Wound Culture - Final Meth. resistant Staph. aureus 08/25/22 Unknown Tissue - 5th Toe Gram Stain - Final 08/25/22 Unknown Tissue - 5th Toe Wound Culture - Final Meth. resistant Staph. aureus Weight used for dosin kg Estimated Creatinine Clearance: 21 Goal Trough: 15-20 mcg/mL Pharmacy Plan for Drug Dosing: Random Vancomycin level to be drawn 0600 on 08/29/21. Pharmacy will adjust dose per level. Pharmacy Service will continue to monitor and adjust dosing as required. Follow-Up Labs: Trough Other Labs to be done on [date and time ordered]: 08/29/22 @ 0600 random level
--- NOTE | 2022-08-28 08:55 | CASEMGMT ---
RADHA CM NOTE: Insurance review for hospitals In-network with?[employer] Choice PPO II Insurance if transfer is recommended is as follows: [facility], [place], [facility], [facility], [facility], [facility], [facility] ([facility]), [facility], and . Valentino BSN RN CM
--- NOTE | 2022-08-28 10:43 | WOUNDNOTE ---
wound photo: right foot
--- NOTE | 2022-08-28 12:27 | PN_ITS ---
Subjective Subjective Patient underwent cardiac cath today. Patient doing well. No issues with foot. Objective Data Objective Data Vital Signs: Vital Signs Temp Pulse Resp BP Pulse Ox O2 Del Method O2 Flow Rate 97.0 F L 66 16 160/70 H 93 Room Air 2 08/28/22 12:15 08/28/22 12:15 08/28/22 12:15 08/28/22 12:15 08/28/22 12:15 08/28/22 12:15 08/28/22 05:00 Oxygen Flow Rate (L/min) 2 Oxygen Delivery Method Room Air Weight: 137.983 kg Body Mass Index (BMI) 42.5 Intake & Output: Intake and Output for Last 24 Hours 08/26/22 08/27/22 08/28/22 23:59 23:59 23:59 Intake Total 2106.25 / 2506.25 2085 / 2085 369.5 / 369.5 Output Total 2675 / 2675 1999 / 1999 750 / 750 Balance -568.75 / -168.75 85 / 85 -380.5 / -380.5 Lab / Micro Data Result Diagrams: 08/28/22 05:55 08/27/22 04:45 Labs: Laboratory Results - last 24 hr 08/27/22 20:44: POC Glucose 229 H 08/28/22 05:55: C-React Prot Ext Range 66.40 H 08/28/22 05:55: WBC 11.4 H, RBC 3.22 L, Hgb 8.0 L, Hct 26.7 L, MCV 82.9, MCH 24.8 L, MCHC 30.0 L, RDW Std Deviation 48.7 H, RDW Coeff of Rajendra 16.0 H, Plt Count 319, MPV 10.4, Immature Gran % (Auto) 0.800, Neut % (Auto) 79.7 H, Lymph % (Auto) 7.5 L, [place] % (Auto) 8.0, Eos % (Auto) 3.3, Baso % (Auto) 0.7, Absolute Neuts (auto) 9.1 H, Absolute Lymphs (auto) 0.85, Nucleated RBC % 0 08/28/22 05:55: Random Vancomycin 18.8 H 08/28/22 06:39: POC Glucose 112 H Micro: Microbiology 08/25/22 Unknown Wound - Toe Gram Stain - Final 08/25/22 Unknown Wound - Toe Wound Culture - Preliminary Staphylococcus aureus 08/25/22 Unknown Bone - 5th Toe Gram Stain - Final 08/25/22 Unknown Bone - 5th Toe Wound Culture - Final Meth. resistant Staph. aureus 08/25/22 Unknown Tissue - 5th Toe Gram Stain - Final 08/25/22 Unknown Tissue - 5th Toe Wound Culture - Final Meth. resistant Staph. aureus Physical Exam Narrative Neurovascular status unchanged. Full-thickness incision from the right lateral partial fifth ray resection noted to be well approximated with intact vessel loop closure. There is noted to be mild sanguinous drainage from the site. Resolving erythema edema. No residual purulence at this time. Absent fifth toe. Right lower extremity swelling. Const alert and oriented x3 Assessment & Plan Assessment/Plan (1) Ulcer of right foot with fat layer exposed: PLAN: Exam performed. Patient vitally stable at current. underwent cardiac cath today - recovering well Wound to right foot appears stable resolved leukocytosis patient vitally stable. Patient on IV vancomycin and Zosyn. Infectious disease consulted. Wound culture growing MRSA. Tissue culture from the OR growing gram-positive species. Awaiting ID recommendations. Patient maintain nonweightbearing right lower extremity. Patient can bear weight heel for transfer purposes. Incision examined today appears stable. Redressed with Betadine, Adaptic 4 x 4's Kerlix and Leonides. Recommend SNF placement. We will continue to follow daily. (2) Osteomyelitis of right foot: (3) Other acute osteomyelitis, right ankle and foot: (4) Type 2 diabetes mellitus with diabetic polyneuropathy:
[2022-08-28] MEDS: Heparin Injection (Vial) 5,000 UNIT/ML VIAL 5000 UNIT SC ×2 (12:29→20:50)
[2022-08-28] MEDS: Ezetimibe 10 MG Tablet PO (12:29)
[2022-08-28] MEDS: Ferrous Sulfate 325 MG Tablet PO ×2 (12:29→16:24)
--- NOTE | 2022-08-28 12:34 | CL.D_ITS ---
Patient Name: YOSEPH PERSAUD Study Date: 08/28/2022 Performing: Barry Ken MD Ht: 71 inches 180.34 cm : 1970 Wt: 304.19 lbs 137.98 kg Age: 52 Gender: male BSA: 2.52 PROCEDURE(S) PERFORMED DC02-(33769)LHC/COR IC12-([id number]/[id number])TREY W/WO PTCA, SINGLE CORONARY ARTERY IC01-([id number])PTCA, SINGLE CORONARY ARTERY CLINICAL PROFILE AND INDICATIONS Indications: Suspected CAD Heart Failure: NYHA Class: 2, Newly Diagnosed: Yes, Heart Failure Type: Systolic Stress/Imaging Stress/Image Study Performed: No CAD Presentations: Non-STEMI. Symptom onset Date/Time: 08/25/22 Time Not Available CONCLUSIONS Severe disease involving previously stented LAD and crow right coronary artery, moderate disease involving the circumflex artery. Moderate to severe left ventricular systolic dysfunction. RECOMMENDATIONS Recommend PCI to the right coronary artery and LAD. Monitor closely for dialysis need. DESCRIPTION OF PROCEDURE The patient arrived to the procedure lab. The risks and benefits of the procedure as well as a full description of our services here and current unavailability of surgical backup were fully explained to the patient and/or their significant other prior to the catheterization. The Timeout was completed, verifying the correct patient and procedure. The patient's procedural site was prepped and draped in the usual fashion. Local anesthetic was given subcutaneously to right radial region with Lidocaine 2%. Using a modified Seldinger technique, arterial access was obtained via the right radial artery, a 6Fr sheath was inserted. Left Coronary Artery selective angiography was performed in multiple views using a 5 Fr. 4.0 [place] catheter. Right Coronary Artery selective angiography was then performed in multiple views using a 5 Fr. 4.0 [place] catheter.The arterial sheath was pulled and a TR Band was applied for hemostasis CORONARY ANGIOGRAPHY DOMINANCE: Right Dominant LEFT HEART ASSESSMENT Left Ventricular Ejection Fraction: by Echo 30 % Inferior Mid Hypokinesis - Severe. Anterior Hypokinesis - Moderate Depressed Left Ventricular systolic function LEFT MAIN: Moderate calcification, No significant disease noted LEFT ANTERIOR DESCENDING ARTERY: This vessel was previously stented extensively with proximal moderate 50% stenosis and in-stent proximal 30 to 40% stenosis. There is a segment in the mid section with a stent with about 80% stenosis and then distally a 70% crow vessel stenosis present. DIAGONAL 1: Ostial - This vessel has an 80% stenosis but the stent appears to be patent CIRCUMFLEX ARTERY: Nondominant but medium size vessel with an obtuse marginal branch with 80% stenosis and diffuse moderate disease noted in the crow circumflex artery RIGHT CORONARY ARTERY: Dominant vessel with proximal subtotal occlusion and reconstitution with distal and mid segment mild to moderate disease distal mild diffuse disease present COMPLICATIONS No Complications PROCEDURE MEDICATIONS Versed 1 mg IV Oxygen: 2 L/min via nasal cannula Heparin given IA 08/28/2022 10:39:20 Heparin 7000 unit(s) IV 08/28/2022 11:05:55 Verapamil 2.5mg, Ntg 200mcgs, 2000 units of Heparin given IA 08/28/2022 10:39:20 SUMMARY OF HEMODYNAMIC DATA Time AIR REST ECG 10:13:08 AO 163/84 (116) SA 10:48:50 Signed By Barry Ken MD On 08/28/2022 12:34:13 Barry Ken MD
--- NOTE | 2022-08-28 12:53 | CRPHASE1_ITS ---
Patient Communication Former Patient:: Phase I PHII Cardiac Rehab Discussed with Patient:: Yes Guide to Cardiac Rehab Given to Patient:: Yes Cardiac Rehab Facility Choice List Given to Patient:: Yes Choice Program [facility] CR PHII:: Communication Given to CR [employer] Curator:: Marilyn Roy Cardiac Rehabilitation Info Cardiac Rehabilitation Program Information: Cardiac Rehab The cardiac rehab team at [facility] consists of highly skilled exercise physiologists, nurses, respiratory therapists and physicians working together with you. Our purpose is to help you have a full recovery and achieve the goals you set for yourself. Over the years many of our patients have returned to activities they assumed they would never do again! We can help restore your confidence and motivation to make lifestyle changes that can have a significant impact on your health and quality of life! We can help answer questions and concerns you may have about exercise, lifestyle, medications, diet, stress and anxiety which are common following a hospitalization. WE monitor ECG and vital signs during exercise and discuss your progress with you and report to your physician(s). Cardiac Rehab is proven to help reduce readmissions, improve functional capacity and lower recurrence of problems with your heart. Our Cardiac Rehab program is Certified by the [place] [employer]-V[employer] and Pulmonary [employer] (AACVPR) and Accredited by the [place] [employer] through our [facility]. You can contact us at . We invite you to call us with your questions or to get started in our program. If you have other questions or concerns be sure to ask your physician/provider during your follow-up visit. WE look forward to seeing you!
--- NOTE | 2022-08-28 12:54 | CRPH1.INSTRU ---
General Education CAD and cardiac anatomy and function:: Patient communicates acknowledgment Explanation of diagnoses and procedures:: Patient communicates acknowledgment Sign/Symptoms of WI:: Patient communicates acknowledgment Antiplatelet therapy: Patient communicates acknowledgment Proper use of NTG-SL: Patient communicates acknowledgment Emergency procedures and activation of EMS: Patient communicates acknowledgment Compliance of all prescribed medications: Patient communicates acknowledgment Smoking Patient Nicotine/Smoking Risk Factors Are:: Cigarettes Recommendations Include:: Smoking cessation strategies/Smoking packet Nicotine/Smoking Response Code:: Needs reinforcement Dyslipidemia Recommendations Include:: Lipid profile provided, Lipid profile not available, Therapeutic Lifestyle Change dietary guidelines Dyslipidemia Response Code:: Patient communicates acknowledgment Overweight/Obesity Patient Overweight/Obesity Risk Factors Are:: BMI Normal [24-29 & > 65 years old], Overweight = 26-29 Overweight/Obesity:: Needs reinforcement Hypertension Recommendations Include:: BP <130/80 if diabetic Hypertension:: Patient communicates acknowledgment Heart Disease Patient Heart Disease Risk Factors Are:: Previous cardiac event Heart Disease Response Code:: Patient communicates acknowledgment Diabetes Patient Diabetes Risk Factors Are:: Elevated blood sugars Diabetes:: Patient communicates acknowledgment Metabolic Syndrome Patient Metabolic Syndrome Risk Factors Are [3 of 5]:: Fasting blood sugar > 100 mg/dL, Waist circumference > 35 [female] or 40 [male], Hypertension Recommendations Include:: Patient is diabetic Metabolic Syndrome Response Code:: Patient communicates acknowledgment Sedentary Recommendations Include:: Benefits of regular exercise, Monitored Outpatient Cardiac Rehab Sedentary Response Code:: Needs reinforcement Stress Recommendations Include:: Identification of stressors, and assessment of coping skills, Stress management techniques Stress Response Code:: Patient communicates acknowledgment
--- NOTE | 2022-08-28 13:03 | CL.I_ITS ---
Patient Name: YOSEPH PERSAUD Study Date: 08/28/2022 Performing: Syd Roy MD Ht: 71 inches 180.34 cm : 1970 Wt: 304.19 lbs 137.98 kg Age: 52 Gender: male BSA: 2.52 PROCEDURE(S) PERFORMED IC12-([id number]/[id number])TREY W/WO PTCA, SINGLE CORONARY ARTERY IC01-([id number])PTCA, SINGLE CORONARY ARTERY CLINICAL PROFILE AND CO-MORBIDITIES Indications: Suspected CAD Heart Failure: NYHA Class: 2, Newly Diagnosed: Yes, Heart Failure Type: Systolic Stress/Imaging Stress/Image Study Performed: No CAD Presentations: Non-STEMI. Symptom onset Date/Time: 08/25/22 Time Not Available CONCLUSIONS Successful PCI with Drug eluting stent to the mRCA. Successful cutting balloon PTCA to instent restenosis in the mid LAD RECOMMENDATIONS DESCRIPTION OF PROCEDURE The patient arrived to the procedure lab. The risks and benefits of the procedure as well as a full description of our services here and current unavailability of surgical backup were fully explained to the patient and/or their significant other prior to the catheterization. The Timeout was completed, verifying the correct patient and procedure. The patient's procedural site was prepped and draped in the usual fashion. Local anesthetic was given subcutaneously to right radial region with Lidocaine 2% Using a modified Seldinger technique,arterial access was obtained via the right radial artery, a 6Fr sheath was inserted. Left Coronary Artery selective angiography was performed in multiple views using a 5 Fr. 4.0 [place] catheter. Right Coronary Artery selective angiography was then performed in multiple views using a 5 Fr. 4.0 [place] catheter.The images were reviewed and options discussed. A decision was then made to proceed with an Intervention, IVUS or other adjunct procedure. jr4 Guide catheter was inserted and engaged into the RCA. bmw Guide wire was advanced to the RCA. emerge 3.00 x 15 Balloon catheter was advanced across lesion in the right coronary, mid. PTCA balloon inflated at 10 atms for 20 secs. PTCA balloon inflated at 10 atms for 18 secs. Angiogram performed post balloon dilatation. resolute miguel 3.5 x 22 Drug Eluting stent was advanced across the lesion in the right coronary, mid. Angiogram performed post stent deployment. bmw Guide wire was repositioned to the LAD xb3 Guide catheter was inserted and engaged into the LCA. sc euphora 2.25 x 15 Balloon catheter was advanced across lesion in the LAD, mid. PTCA balloon inflated at 12 atms for 21 secs. PTCA balloon inflated at 12 atms for 12 secs. Angiogram performed post balloon dilatation. wolverine 2.5 x 10 Balloon catheter was advanced across lesion in the LAD, mid. Angiogram performed post balloon dilatation. Angiogram performed post balloon dilatation. The arterial sheath was pulled and a TR Band was applied for hemostasis INTERVENTION INFORMATION LESION SITE: RCA (Mid) Lesion Complexity: High/C, chronic total occlusion: No, lesion at bifurcation: Yes, thrombus present: No, lesion length: 18 mm, culprit lesion: Yes, Previously treated lesion: No Pre Stenosis: 99 % Pre intervention CRISTI flow: 2 PROCEDURE: Drug Eluting Stent with pre dilatation. Post Stenosis: 0 % Post intervention CRISTI flow: 3 Lesion Devices: Pop .014 190cm BMW [place] Straight Cordis 6 Fr JR4 100cm Guide Catheter Jonathan Sci EMERGE MR 3.00x15 BALLOON Medtronic Resolute Miguel RX TREY 3.5x22 LESION SITE: LAD (Mid) Lesion Complexity: High/C, chronic total occlusion: No, lesion at bifurcation: No, thrombus present: No, lesion length: 15 mm, culprit lesion: Yes, Previously treated lesion: Yes, In-stent restenosis: Yes, Timeframe of previous treatment: Time unknown, Previously treated with a stent: Yes Stent Type: with stent type unknown, In-stent Thrombosis: No Pre Stenosis: 80 % Pre intervention CRISTI flow: 3 PROCEDURE: Balloon Angioplasty Cutting Balloon Angioplasty Post Stenosis: 10 % Post intervention CRISTI flow: 3 Lesion Devices: Pop .014 190cm BMW [place] Straight Cordis 6 Fr XB3.0 100cm Guide Catheter Medtronic SC EUPHORA RX 2.25x15 BALLOON Jonathan Sci [place] cutting balloon 2.5x10 COMPLICATIONS No Complications PROCEDURE MEDICATIONS Versed 1 mg IV Oxygen: 2 L/min via nasal cannula Heparin given IA 08/28/2022 10:39:20 Heparin 7000 unit(s) IV 08/28/2022 11:05:55 Verapamil 2.5mg, Ntg 200mcgs, 2000 units of Heparin given IA 08/28/2022 10:39:20 SUMMARY OF HEMODYNAMIC DATA Time AIR REST ECG 10:13:08 AO 163/84 (116) SA 10:48:50 Signed By Syd Roy MD On 08/28/2022 13:02:26 Syd Roy MD
--- NOTE | 2022-08-28 14:00 | PN.RENAL_ITS ---
Subjective Subjective No new complaints. Objective Data Objective Data Vital Signs: Vital Signs Temp Pulse Resp BP Pulse Ox O2 Del Method O2 Flow Rate 98.6 F 65 16 125/59 H 92 Room Air 2 08/28/22 13:45 08/28/22 13:45 08/28/22 13:45 08/28/22 13:45 08/28/22 13:45 08/28/22 13:45 08/28/22 05:00 Oxygen Flow Rate (L/min) 2 Oxygen Delivery Method Room Air Weight: 137.983 kg Body Mass Index (BMI) 42.5 Intake & Output: Intake and Output for Last 24 Hours 08/26/22 08/27/22 08/28/22 23:59 23:59 23:59 Intake Total 2106.25 / 2506.25 2085 / 2085 369.5 / 369.5 Output Total 2675 / 2675 1999 / 1999 750 / 750 Balance -568.75 / -168.75 85 / 85 -380.5 / -380.5 Lab / Micro Data Result Diagrams: 08/28/22 05:55 08/27/22 04:45 Labs: Laboratory Results - last 24 hr 08/27/22 20:44: POC Glucose 229 H 08/28/22 05:55: C-React Prot Ext Range 66.40 H 08/28/22 05:55: WBC 11.4 H, RBC 3.22 L, Hgb 8.0 L, Hct 26.7 L, MCV 82.9, MCH 24.8 L, MCHC 30.0 L, RDW Std Deviation 48.7 H, RDW Coeff of Rajendra 16.0 H, Plt Count 319, MPV 10.4, Immature Gran % (Auto) 0.800, Neut % (Auto) 79.7 H, Lymph % (Auto) 7.5 L, [place] % (Auto) 8.0, Eos % (Auto) 3.3, Baso % (Auto) 0.7, Absolute Neuts (auto) 9.1 H, Absolute Lymphs (auto) 0.85, Nucleated RBC % 0 08/28/22 05:55: Random Vancomycin 18.8 H 08/28/22 06:39: POC Glucose 112 H Micro: Microbiology 08/25/22 Unknown Tissue - 5th Toe Gram Stain - Final 08/25/22 Unknown Tissue - 5th Toe Wound Culture - Final Meth. resistant Staph. aureus 08/25/22 Unknown Tissue - 5th Toe Anaerobic Culture - Preliminary Checking for anaerobes, further studies to follow. 08/25/22 Unknown Wound - Toe Gram Stain - Final 08/25/22 Unknown Wound - Toe Wound Culture - Preliminary Staphylococcus aureus 08/25/22 Unknown Wound - Toe Anaerobic Culture - Preliminary 08/25/22 Unknown Bone - 5th Toe Gram Stain - Final 08/25/22 Unknown Bone - 5th Toe Wound Culture - Final Meth. resistant Staph. aureus 08/25/22 Unknown Bone - 5th Toe Anaerobic Culture - Preliminary Physical Exam Narrative Alert awake oriented x 3 no obvious distress no pallor no icterus no JVD s1s2 no murmurs lungs clear abdomen soft no organomegaly + edema no cyanosis Assessment & Plan Assessment/Plan (1) Ischemic cardiomyopathy: PLAN: Plan Acute renal failure CKD stage IV Has advanced kidney disease at baseline. Discussed with hospitalist and cardiology. He is pretty close to dialysis anyway. Has had frequent hospitalizations since we could not arrange for AV fistula placement. High risk for coronary artery disease. Coronary angiogram today, findings noted. He is still making urine. Will reevaluate labs tomorrow. He is willing to start dialysis if creatinine continues to get worse.
--- NOTE | 2022-08-28 14:03 | CON.PCM.ID_ITS ---
Assessment & Plan Assessment/Plan (1) Type 2 diabetes mellitus with diabetic polyneuropathy: (2) Other acute osteomyelitis, right ankle and foot: PLAN: R foot MRSA osteo - now s/p 08/25/22 partial 5th ray resection by Dr. Julien. Clearance cx is (+). Some CORA on CKD, neph following. Will stop zosyn. Cont vanc. Plan on 6 weeks iv abx if neph is ok with picc. Vanc levels have been at goal. Will follow, thank you, d/w immigration case worker HPI Consult Data Date of Consult: 08/28/22 HPI Narrative Reason for Consultation: osteo HPI Narrative: YOSEPH PERSAUD, is a 52 M with DM neuropathy, recurrent foot infection, presented 08/24 to ED with 2-3 days of R 5th toe discoloration, foul odor. No pain, no fever, no n/v/d. Admitted on vanc/zosyn, taken to OR 08/[address] Julien for partial 5th ray resection. Feeling ok today. No n/v/d. Full ROS performed and neg except as noted above. [facility] Medical History Anemia in chronic illness Atherosclerotic heart disease of [place] coronary artery without angina pectoris Carotid artery stenosis Chronic diastolic (congestive) heart failure Chronic kidney disease Chronic kidney disease Chronic kidney disease, stage 3a Coronary artery disease Depression Diabetes mellitus Diabetes mellitus with diabetic polyneuropathy Diabetes mellitus, type II Diabetic infection of left foot Edema, peripheral Essential (primary) hypertension History of non-ST elevation myocardial infarction (NSTEMI) (08/25/22) History of stress test Hyperlipidemia Hyperlipidemia Hypertension Hypertension Hypomagnesemia Infected sebaceous cyst Insulin dependent diabetes mellitus Ischemic cardiomyopathy (06/2013) Left ventricular systolic dysfunction (LVSD) Non-pressure 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 of bone Non-pressure chronic ulcer of other part of left foot with fat layer exposed Non-pressure chronic ulcer of other part of left foot with fat layer exposed Obesity Paresthesias Partial nontraumatic amputation of right foot Pneumonia due to COVID-19 virus (03/14/20) Type 2 diabetes mellitus with diabetic neuropathy, unspecified Type 2 diabetes mellitus with diabetic polyneuropathy Type 2 diabetes mellitus with foot ulcer Ulcer of right foot with fat layer exposed Venous insufficiency Venous insufficiency of both lower extremities Home Medications aspirin 81 mg chewable tablet 81 mg PO DAILY@0800 heart 09/28/14 [History Last Taken 12/20/18] atorvastatin 80 mg tablet 80 mg PO QHS cholesterol 30 days #30 tabs 06/21/21 [Rx Last Taken Unknown] clopidogrel 75 mg tablet 75 mg PO DAILY Blood Thinner 30 days #30 tabs 06/21/21 [Rx Last Taken Unknown] insulin glargine 100 unit/mL (3 mL) subcutaneous pen (Lantus Solostar U-100 Insulin) 20 unit (0.2 mL) subcut BID Diabetes 30 days #12 mL 06/21/21 [Rx Last Taken Unknown] isosorbide mononitrate 60 mg tablet,extended release 24 hr 60 mg PO DAILY Heart 30 days #30 tabs 01/12/22 [Rx Last Taken Unknown] ezetimibe 10 mg tablet 10 mg PO DAILY cholesterol 04/07/22 [History Last Taken Unknown] carvedilol 25 mg tablet 25 mg PO BID #180 tabs 05/25/22 [Rx Last Taken Unknown] amlodipine 5 mg tablet 5 mg PO DAILY . 06/05/22 [History Last Taken Unknown] ferrous sulfate 325 mg (65 mg iron) tablet (FeroSul) 325 mg PO BID #60 tabs 06/08/22 [Rx Last Taken Unknown] furosemide 20 mg tablet (Lasix) 20 mg PO BID #180 tabs 06/08/22 [Rx Last Taken Unknown] Allergy/AdvReac Type Severity Reaction Status Date / Time lisinopril AdvReac Intermediate Cough Verified 08/24/22 17:08 losartan AdvReac Intermediate cough Verified 08/24/22 17:08 Family History (Updated 08/28/22 @ 13:09 by Meka Juarez) Father , Age 57 from [place] Myocardial infarction CAD (coronary artery disease) Sudden cardiac Mother Sick sinus syndrome Sister Diabetes Other History of coronary artery stent placement History of non-ST elevation myocardial infarction (NSTEMI) Surgical History (Updated 08/28/22 @ 13:09 by Meka Juarez) H/O cardiac catheterization History of coronary artery stent placement (08/28/22) Social History household members: none Smoking Status: Never smoker alcohol intake: current alcohol intake frequency: holidays/special occasions only substance use type: does not use caffeine: Yes Type: carbonated beverages Number of servings: 2 Physical Exam Const alert and no apparent distress General Appearance: cooperative HEENT normocephalic and head/scalp atraumatic Eyes PERRL and EOMs intact bilaterally Neck supple and No nodes Resp normal air movement and clear to auscultation bilaterally Cardio regular rate and regular rhythm GI soft to palpation, non-tender and non-distended Extremity General Extremity: edema Skin Skin Narrative: reviewed photos Neuro CN's II-XII intact bilaterally Lab / Micro Data Attestation: I reviewed the patient's lab results. Result Diagrams: 08/28/22 05:55 08/27/22 04:45 Labs: Laboratory Results - last 24 hr 08/27/22 20:44: POC Glucose 229 H 08/28/22 05:55: C-React Prot Ext Range 66.40 H 08/28/22 05:55: WBC 11.4 H, RBC 3.22 L, Hgb 8.0 L, Hct 26.7 L, MCV 82.9, MCH 24.8 L, MCHC 30.0 L, RDW Std Deviation 48.7 H, RDW Coeff of Rajendra 16.0 H, Plt Coun t 319, MPV 10.4, Immature Gran % (Auto) 0.800, Neut % (Auto) 79.7 H, Lymph % (Auto) 7.5 L, Boyd % (Auto) 8.0, Eos % (Auto) 3.3, Baso % (Auto) 0.7, Absolute Neuts (auto) 9.1 H, Absolute Lymphs (auto) 0.85, Nucleated RBC % 0 08/28/22 05:55: Random Vancomycin 18.8 H 08/28/22 06:39: POC Glucose 112 H Micro: Microbiology 08/25/22 Unknown Tissue - 5th Toe Gram Stain - Final 08/25/22 Unknown Tissue - 5th Toe Wound Culture - Final Meth. resistant Staph. aureus 08/25/22 Unknown Tissue - 5th Toe Anaerobic Culture - Preliminary Checking for anaerobes, further studies to follow. 08/25/22 Unknown Wound - Toe Gram Stain - Final 08/25/22 Unknown Wound - Toe Wound Culture - Preliminary Staphylococcus aureus 08/25/22 Unknown Wound - Toe Anaerobic Culture - Preliminary 08/25/22 Unknown Bone - 5th Toe Gram Stain - Final 08/25/22 Unknown Bone - 5th Toe Wound Culture - Final Meth. resistant Staph. aureus 08/25/22 Unknown Bone - 5th Toe Anaerobic Culture - Preliminary
--- NOTE | 2022-08-28 16:14 | NURSING ---
Pts BGT was 128on his Dexcom.
--- NOTE | 2022-08-28 19:30 | PCM.PN.HOSP ---
Reason for Visit Reason for Visit: Diagnoses Type 2 diabetes mellitus with diabetic polyneuropathy (08/25/22) Essential (primary) hypertension (08/25/22) Atherosclerotic heart disease of [place] coronary artery without angina pectoris (08/25/22) Ischemic cardiomyopathy (08/25/22) Chronic diastolic (congestive) heart failure (08/25/22) Postprocedural cardiac arrest following other surgery (08/25/22) Non-pressure chronic ulcer of other part of right foot with fat layer exposed (08/25/22) Other acute osteomyelitis, right ankle and foot (08/25/22) Osteomyelitis, unspecified (08/25/22) Chronic kidney disease, stage 3a (08/25/22) Subjective Subjective Patient was seen and examined today, he underwent a cardiac catheterization today, his case was discussed with nephrology and cardiology before he underwent the catheterization due to the fact that he has an elevated creatinine, nephrology felt that the benefit to the patient to have a cardiac catheterization outweighed the potential for causing the patient to go into acute renal failure, cardiology agreed to perform the catheterization and there was noted to be occlusive coronary disease, patient underwent a balloon angioplasty and a cutting balloon angioplasty performed in the LAD and insertion of TREY in the right coronary artery. Objective Data Objective Data Vital Signs: Vital Signs Temp Pulse Resp BP Pulse Ox O2 Del Method O2 Flow Rate 98.6 F 68 16 146/72 H 92 Room Air 3 08/28/22 16:14 08/28/22 16:14 08/28/22 16:14 08/28/22 16:14 08/28/22 16:14 08/28/22 16:14 08/28/22 15:15 Oxygen Flow Rate (L/min) 3 Oxygen Delivery Method Room Air Weight: 137.983 kg Body Mass Index (BMI) 42.5 Intake & Output: Intake and Output for Last 24 Hours 08/26/22 08/27/22 08/28/22 23:59 23:59 23:59 Intake Total 2106.25 / 2506.25 2085 / 2085 849.5 / 849.5 Output Total 2675 / 2675 1999 / 1999 1100 / 1100 Balance -568.75 / -168.75 85 / 85 -250.5 / -250.5 Lab / Micro Data Result Diagrams: 08/28/22 05:55 08/27/22 04:45 Labs: Laboratory Results - last 24 hr 08/27/22 20:44: POC Glucose 229 H 08/28/22 05:55: C-React Prot Ext Range 66.40 H 08/28/22 05:55: WBC 11.4 H, RBC 3.22 L, Hgb 8.0 L, Hct 26.7 L, MCV 82.9, MCH 24.8 L, MCHC 30.0 L, RDW Std Deviation 48.7 H, RDW Coeff of Rajendra 16.0 H, Plt Count 319, MPV 10.4, Immature Gran % (Auto) 0.800, Neut % (Auto) 79.7 H, Lymph % (Auto) 7.5 L, Harmon % (Auto) 8.0, Eos % (Auto) 3.3, Baso % (Auto) 0.7, Absolute Neuts (auto) 9.1 H, Absolute Lymphs (auto) 0.85, Nucleated RBC % 0 08/28/22 05:55: Random Vancomycin 18.8 H 08/28/22 06:39: POC Glucose 112 H Micro: Microbiology 08/25/22 Unknown Tissue - 5th Toe Gram Stain - Final 08/25/22 Unknown Tissue - 5th Toe Wound Culture - Final Meth. resistant Staph. aureus 08/25/22 Unknown Tissue - 5th Toe Anaerobic Culture - Preliminary Checking for anaerobes, further studies to follow. 08/25/22 Unknown Wound - Toe Gram Stain - Final 08/25/22 Unknown Wound - Toe Wound Culture - Preliminary Staphylococcus aureus 08/25/22 Unknown Wound - Toe Anaerobic Culture - Preliminary 08/25/22 Unknown Bone - 5th Toe Gram Stain - Final 08/25/22 Unknown Bone - 5th Toe Wound Culture - Final Meth. resistant Staph. aureus 08/25/22 Unknown Bone - 5th Toe Anaerobic Culture - Preliminary Radiography Diagnostic Testing: Radiology Impression Venous Doppler Study 08/25/22 12:51 Interpretation Summary There is no evidence of right lower extremity deep vein thrombosis. Right great saphenous vein appears patent and compressible segmentally. Pulsatile venous flow was noted bilaterally consistent with proximal venous hypertension or obstruction. Clinical correlation would be appropriate. Normal flow patterns left common femoral vein Ordering Physician: Everett Julien Performed By: Altaf Holland RVT Physical Exam Narrative alert, oriented x3 and no apparent distress Constitutional Narrative: Patient is morbidly obese General Appearance: cooperative, well kempt and well developed Orientation / Consciousness: awake, oriented to person, oriented to place and oriented to time HEENT normocephalic and moist oral mucous membranes Eyes PERRL, EOMs intact bilaterally and conjunctivae normal Neck supple, no JVD, thyroid normal and no carotid bruits General: trachea midline Resp normal respiratory effort, no retractions, no use of accessory muscles and clear to auscultation bilaterally Auscultation: Negative for rales, rhonchi or wheezes Cardio regular rate, regular rhythm, S1 normal heart sound, S2 normal heart sound, no murmurs, no rub and no gallops GI normal to inspection, nondistended, normoactive bowel sounds, soft to palpation, non-tender and non-distended Extremity Extremity Narrative: Patient's right foot is wrapped with surgical dressing, this was not removed for examination of the foot. Skin no rashes Neuro oriented x3, CN's II-XII intact bilaterally, moves all extremities and no focal motor deficits Sensorium / Orientation: awake, alert, oriented to person, oriented to place and oriented to time Speech: speech normal Psych affect normal Assessment & Plan Assessment/Plan (1) Postoperative cardiac arrest following non-cardiac surgery: (2) Osteomyelitis of right foot: PLAN: Plan 1. Right fifth toe osteomyelitis-status post partial fifth ray resection right foot on 08/25/2022-surgical care per podiatry at this time, infectious diseases is recommending PICC line placement with IV vancomycin, I will discuss this with nephrology #2 status postcardiac arrest in the operating room during his surgery-etiology unclear at this point #3 type 2 diabetes-blood sugars will be monitored, sliding scale insulin will use as needed #4 ischemic cardiomyopathy-patient's last echocardiogram on 08/26/2022 showed an EF of 35 to 40%, again cardiology is participating in his care #5 morbid obesity-complicates care, medical course, recovery, and prognosis #6 stage IV chronic kidney disease secondary to type 2 diabetes-complicates care, medical course, recovery, and prognosis, labs will be monitored #7 anemia secondary to chronic kidney disease on a backdrop of iron deficiency anemia-patient's CBC will be monitored as appropriate, he does not require blood transfusion at this time #8 occlusive coronary disease right coronary artery and LAD-patient had angioplasty and stent placement Total clinical time spent by myself addressing the patient's medical issues, reviewing all of his data, and collaborating with patient's care team: 36-minute Charges/Coding Visit Charges Inpatient E&M: 90388 Subs Hosp L2
[2022-08-28] MEDS: Atorvastatin Calcium 80 MG Tablet PO (20:50)
[2022-08-29 03:20] VITALS: BP 162/81; PULSE 71; RESP 18; TEMP 36.8; O2SAT 94
[2022-08-29 05:48] VITALS: BMI 42.5
[2022-08-29 06:03] LABS: Hematocrit 27.2 % (40-54); Hemoglobin 8.1 g/dL (13.0-16.5); Mean Corp Hgb Conc 29.8 g/dL (32-36); Mean Corpuscular Hgb 24.7 pg (27.0-32.0); Mean Corpuscular Volume 82.9 fL (80-94); Mean Platelet Vol. 9.8 fl (6.2-12.0); Platelet Count 332 K/mm3 (150-450); RBC Distribution Width SD 48.3 fl (35.1-43.9); Red Blood Count 3.28 M/mm3 (4.6-6.2); White Blood Count 11.2 K/mm3 (4.4-11.0)
[2022-08-29 06:29] LABS: ALB/GLOB Ratio 0.4 RATIO (0.9-2.4); AST(SGOT) 15 U/L (15-37); Alanine Aminotransfer ALT/SGPT 27 U/L (16-61); Albumin, Serum 2.2 g/dL (3.2-5.0); Alkaline Phosphatase 60 U/L (45-117); Anion Gap 5 (5-15); BUN 73 mg/dL (7-18); BUN/Creat Ratio 19.8 RATIO (10-20); Calcium,Total 8.6 mg/dL (8.5-10.1); Chloride 111 mmol/L (98-107); Creatinine, Serum 3.69 mg/dL (0.70-1.30); EST Glomerular Filtration Rate 18 mL/min (>60); Est Glom Filt Rate - Afr Amer 22 mL/min (>60); Estimated Creatinine Clearance 24.37 ml/min; Globulin 5.3 g/dL (2.2-4.2); Glucose 107 mg/dL (74-106); Potassium 4.2 mmol/L (3.5-5.1); Protein, Total 7.5 g/dL (6.4-8.2); Sodium Level 141 mmol/L (136-145); Vancomycin, Random Level 12.5 ug/mL (0.0-15.0)
--- NOTE | 2022-08-29 07:14 | PCM.RX.CS ---
Consult Pharmacy has been consulted to manage selected antiobiotic: Vancomycin Type of Consult: Follow-up Suspected Infection: Osteomyelitis Prior Doses of Antibiotics Received/Current Regimen: 2000 Mg administered on 08/25/22 1000mg administered 08/29/22 Labs: Sodium 141 mmol/L (136-145) 08/29/22 05:55 Potassium 4.2 mmol/L (3.5-5.1) 08/29/22 05:55 Chloride 111 mmol/L (98-107) H 08/29/22 05:55 Carbon Dioxide 25.0 mmol/L (21.0-32.0) 08/29/22 05:55 Anion Gap 5 (5-15) 08/29/22 05:55 BUN 73 mg/dL (7-18) H 08/29/22 05:55 Creatinine 3.69 mg/dL (0.70-1.30) H 08/29/22 05:55 Est GFR (MDRD) Af Amer 22 mL/min (>60) L 08/29/22 05:55 Est GFR (MDRD) Non-Af 18 mL/min (>60) L 08/29/22 05:55 BUN/Creatinine Ratio 19.8 RATIO (10-20) 08/29/22 05:55 Glucose 107 mg/dL (74-106) H 08/29/22 05:55 Random Vancomycin 12.5 ug/mL (0.0-15.0) 08/29/22 05:55 Microbiology: Microbiology 08/25/22 Unknown Tissue - 5th Toe Gram Stain - Final 08/25/22 Unknown Tissue - 5th Toe Wound Culture - Final Meth. resistant Staph. aureus 08/25/22 Unknown Tissue - 5th Toe Anaerobic Culture - Preliminary Checking for anaerobes, further studies to follow. 08/25/22 Unknown Wound - Toe Gram Stain - Final 08/25/22 Unknown Wound - Toe Wound Culture - Preliminary Staphylococcus aureus 08/25/22 Unknown Wound - Toe Anaerobic Culture - Preliminary 08/25/22 Unknown Bone - 5th Toe Gram Stain - Final 08/25/22 Unknown Bone - 5th Toe Wound Culture - Final Meth. resistant Staph. aureus 08/25/22 Unknown Bone - 5th Toe Anaerobic Culture - Preliminary Weight used for dosin kg Estimated Creatinine Clearance: 24 Goal Trough: 15-20 mcg/mL Pharmacy Plan for Drug Dosinmg x1 to be administered today Pharmacy Service will continue to monitor and adjust dosing as required. Follow-Up Labs: Trough Other - random Labs to be done on [date and time ordered]: 08/30/22 @ 0600
--- NOTE | 2022-08-29 07:20 | PN.CARD_ITS ---
Subjective Subjective Patient seen. Feeling better. Objective Data Vital Signs: Vital Signs Temp Pulse Resp BP Pulse Ox O2 Del Method O2 Flow Rate 98.3 F 71 18 162/81 H 94 Nasal Cannula 3 08/29/22 03:20 08/29/22 03:20 08/29/22 03:20 08/29/22 03:20 08/29/22 03:20 08/29/22 03:20 08/29/22 03:20 Oxygen Flow Rate (L/min) 3 Oxygen Delivery Method Nasal Cannula Weight: 304 lb 14.389 oz Body Mass Index (BMI) 42.5 Intake & Output: Intake and Output for Last 24 Hours 08/27/22 08/28/22 08/29/22 23:59 23:59 23:59 Intake Total 2085 / 5 969.5 / 969.5 Output Total 1999 / 1999 1100 / 1100 Balance 85 / 85 -130.5 / -130.5 Lab / Micro Data Result Diagrams: 08/29/22 05:55 08/29/22 05:55 Labs: Laboratory Results - last 24 hr 08/29/22 05:55: Random Vancomycin 12.5 08/29/22 05:55: Sodium 141, Potassium 4.2, Chloride 111 H, Carbon Dioxide 25.0, Anion Gap 5, BUN 73 H, Creatinine 3.69 H, Estim Creat Clear Calc 24.37, Est GFR (MDRD) Af Amer 22 L, Est GFR (MDRD) Non-Af 18 L, BUN/Creatinine Ratio 19.8, Glucose 107 H, Calcium 8.6, Total Bilirubin 0.30, AST 15, ALT 27, Alkaline Phosphatase 60, Total Protein 7.5, Albumin 2.2 L, Globulin 5.3 H, Albumin/Globulin Ratio 0.4 L 08/29/22 05:55: WBC 11.2 H, RBC 3.28 L, Hgb 8.1 L, Hct 27.2 L, MCV 82.9, MCH 24.7 L, MCHC 29.8 L, RDW Std Deviation 48.3 H, RDW Coeff of Rajendra 16.0 H, Plt Count 332, MPV 9.8 Micro: Microbiology 08/25/22 Unknown Tissue - 5th Toe Gram Stain - Final 08/25/22 Unknown Tissue - 5th Toe Wound Culture - Final Meth. resistant Staph. aureus 08/25/22 Unknown Tissue - 5th Toe Anaerobic Culture - Preliminary Checking for anaerobes, further studies to follow. 08/25/22 Unknown Wound - Toe Gram Stain - Final 08/25/22 Unknown Wound - Toe Wound Culture - Preliminary Staphylococcus aureus 08/25/22 Unknown Wound - Toe Anaerobic Culture - Preliminary 08/25/22 Unknown Bone - 5th Toe Gram Stain - Final 08/25/22 Unknown Bone - 5th Toe Wound Culture - Final Meth. resistant Staph. aureus 08/25/22 Unknown Bone - 5th Toe Anaerobic Culture - Preliminary Cardiology Labs/Tests 08/29/22 05:55: Sodium 141, Potassium 4.2, Chloride 111 H, Carbon Dioxide 25.0, Anion Gap 5, BUN 73 H, Creatinine 3.69 H, Est GFR (MDRD) Af Amer 22 L, Est GFR (MDRD) Non-Af 18 L, BUN/Creatinine Ratio 19.8, Glucose 107 H, Calcium 8.6, Total Bilirubin 0.30 08/29/22 05:55: WBC 11.2 H, RBC 3.28 L, Hgb 8.1 L, Hct 27.2 L, MCV 82.9, MCH 24.7 L, MCHC 29.8 L, Plt Count 332, MPV 9.8 Rhythm: EKG: ECHO: Stress Test: Cardiac Cath: PCI: CT Surgery: Holter monitor: EPS: PPM: CXR: Chest CT Scan: Radiography Diagnostic Testing: Radiology Impression Venous Doppler Study 08/25/22 12:51 Interpretation Summary There is no evidence of right lower extremity deep vein thrombosis. Right great saphenous vein appears patent and compressible segmentally. Pulsatile venous flow was noted bilaterally consistent with proximal venous hypertension or obstruction. Clinical correlation would be appropriate. Normal flow patterns left common femoral vein Ordering Physician: Everett Julien Performed By: Altaf Holland RVMaria De Jesus Physical Exam Const alert, oriented x3 and no apparent distress General Appearance: cooperative HEENT hearing grossly normal bilaterally Head and Scalp: atraumatic Eyes EOMs intact bilaterally Neck General: normal visual inspection Chest inspection of chest normal and palpation of chest normal Resp normal respiratory effort Auscultation: clear to auscultation bilaterally Cardio regular rate, regular rhythm, S1 normal heart sound and S2 normal heart sound Jugular Venous Distention: JVD GI normal to inspection, nondistended, normoactive bowel sounds Extremity normal capillary refill and no pedal edema Peripheral Pulses: Yes pulses 2+ throughout and femoral pulses present Skin no rashes or lesions noted Neuro oriented x3 and CN's II-XII intact bilaterally Psych Appearance: grossly normal and appropriate Assessment & Plan Assessment/Plan (1) Postoperative cardiac arrest following non-cardiac surgery: PLAN: The patient and apparently had what appeared to be a postoperative cardiac arrest following noncardiac surgery. He underwent cardiac catheterization yesterday and his right coronary artery as well as his LAD were revascularized. He appears to be doing actually better at this time. (2) Ischemic cardiomyopathy: PLAN: He does have evidence of ischemic cardiomyopathy. His last estimated ejection fraction was 35 to 40%. We will continue with guideline directed medical therapy. (3) Chronic diastolic (congestive) heart failure: PLAN: He does appear to have heart failure with reduced ejection fraction. My recommendation is to continue with the current guideline directed medical th erapy. Now that his medical therapy can be optimized we will continue and repeat his echocardiogram in 2 to 3 months. (4) Hypertension: PLAN: He does have a history of hypertension his blood pressure is under decent control. The plan will be to keep on the same without us making any changes. (5) CAD (coronary artery disease): PLAN: He does have a history of coronary artery disease status post previous PCI involving the left anterior descending artery and diagonal. His cardiac catheterization demonstrated high-grade proximal right coronary artery for which he underwent PCI in his mid LAD which was previously angioplastied was reangioplastied. His creatinine is actually better today We will continue with current medical therapy.
[2022-08-29 07:41] VITALS: O2SAT 93
[2022-08-29] MEDS: Vancomycin IV 1,000 MG/200 ML BAG 200 MG IV (07:54)
[2022-08-29] MEDS: Aspirin 81 MG TAB.CHEW PO (07:55)
[2022-08-29] MEDS: Ferrous Sulfate 325 MG Tablet PO (07:55)
[2022-08-29] MEDS: Juven (unflavored) Packet 1 PACKET PO (08:05)
[2022-08-29] MEDS: Clopidogrel Bisulfate 75 MG Tablet PO (08:12)
[2022-08-29] MEDS: Heparin Injection (Vial) 5,000 UNIT/ML VIAL 5000 UNIT SC (08:13)
[2022-08-29] MEDS: amLODIPine 5 MG Tablet PO (08:13)
[2022-08-29] MEDS: Ezetimibe 10 MG Tablet PO (08:13)
[2022-08-29] MEDS: Carvedilol 25 MG Tablet PO (08:13)
[2022-08-29] MEDS: Isosorbide Mononitrate 60 MG Tablet PO (08:13)
--- NOTE | 2022-08-29 08:58 | CASEMGMT ---
SW was informed that patient has some financial concerns. SW met with patient. Introduced self and role at [facility]. Patient asked SW if SW could speed up his disability process. Patient said it is at 65% right now. SW told patient unfortunately SW is not able to speed up the disability process. Patient declined any other resources, but thanked SW for checking in with him. Georgiana Ayala [employer]
[2022-08-29 09:20] VITALS: BP 160/83; PULSE 72; RESP 18; TEMP 36.9; O2SAT 95
--- NOTE | 2022-08-29 10:00 | EKG12_ITS ---
Test Reason : POST ARREST IN OR Blood Pressure : / mmHG Vent. Rate : 077 BPM Atrial Rate : 077 BPM P-R Int : 170 ms QRS Dur : 124 ms QT Int : 392 ms P-R-T Axes : -08 052 167 degrees QTc Int : 443 ms Normal sinus rhythm Inferior infarct , age undetermined Marked ST abnormality, possible lateral subendocardial injury Abnormal ECG When compared with ECG of 25-AUG-2022 14:06, MANUAL COMPARISON REQUIRED, DATA IS UNCONFIRMED Confirmed by DANNY NUNEZ, CHAPARRO ([id number]), editor managing director ISRAEL MALIK ([id number]) on 08/29/2022 9:12:09 AM Referred By: LOUIE Confirmed By:CHAPARRO DELGADO MD
--- NOTE | 2022-08-29 10:58 | PCM.DC ---
Discharge Instructions Diet Discharge Diet: 1800 Calorie Control Diet Activity Discharge Activity: Return to Normal Activity Weight Bearing Status: No weight bearing (on right foot-may use right heel to pivot) Dressing / Incision Call your doctor if your incision/area has: Increased Pain/ Swelling and Foul Smelling Discharge Call your doctor if you observe: Fever of 101 or Higher Follow Up Care Test Results: Test results from this visit will be discussed in further detail at your follow-up appointment, if applicable. Discharge Plan Admission Admit Date/Time: 08/25/22 12:02 Primary Reason for Your Visit: osteomylitis right 5th toe, cardiac arrest Attending Provider: Everett Julien Primary Care Provider: Joseph Ricks Consulting Providers: Giuseppe Oliver ; Nabeel Julian ; Rosanna Garza ; Cliff Nick ; Kushal Dc ; Jose Almaguer ; Ghanshyam Parham ; Willi Alfaro ; Gisela Orozco [employer] ; Francisco Akbar Instructions Additional Instructions / Restrictions: Patient will require home health care dressing changes two times per week consisting of foot cleansing with soap/water, applying betadine paint to right foot incision, adaptic, 4x4s, kerlix and doc follow up with dr. julien next week, my office will contact patient regarding appointment date/time Discharge Orders/Prescriptions Prescriptions: New doxycycline monohydrate 100 mg capsule 100 mg PO BID Qty: 84 0RF Rx Instructions: one twice a day for 6 weeks Continued aspirin 81 MG tablet,chewable 81 mg PO DAILY@0800 Label Comments: [facility] atorvastatin 80 MG tablet 80 mg PO QHS 30 Days Qty: 30 0RF clopidogrel 75 MG tablet 75 mg PO DAILY 30 Days Qty: 30 0RF insulin glargine [Lantus Solostar U-100 Insulin] 100 unit/mL (3 mL) insulin pen 20 unit subcut BID 30 Days Qty: 12 0RF Rx Instructions: Takes if Blood sugar > 150 ezetimibe 10 mg tablet 10 mg PO DAILY Label Comments: TAKE 1 TABLET BY MOUTH EVERY DAY amlodipine 5 mg tablet 5 mg PO DAILY Label Comments: TAKE ONE TABLET BY MOUTH DAILY ferrous sulfate [FeroSul] 325 mg (65 mg iron) Tablet 325 mg PO BID Qty: 60 0RF isosorbide mononitrate 60 mg tablet extended release 24 hr 60 mg PO DAILY 30 Days Qty: 30 11RF Rx Instructions: please refill now carvedilol 25 mg tablet 25 mg PO BID Qty: 180 3RF Rx Instructions: must administer with a meal/food Discontinued furosemide [Lasix] 20 mg tablet 20 mg PO BID Qty: 180 0RF ciprofloxacin HCl [Cipro] 500 mg tablet 500 mg PO BID Qty: 7 0RF doxycycline monohydrate 100 mg capsule 100 mg PO BID Qty: 14 0RF Referrals / Follow Up: Joseph Ricks MD [Primary Care Provider] - Everett Julien DPM [Med Staff - Active Staff] - In 1 Week Barry Ken MD [Med Staff - Active Staff] - See Referral Note (call for follow up appointment in 3 weeks) Francisco Akbar MD [Med Staff - Consulting] - Within 2 Weeks Disposition Disposition (needs filled in before D/C Order can be placed): Home Health Service
[2022-08-29 11:00] VITALS: BP 160/83; PULSE 72; RESP 18; TEMP 36.9; O2SAT 95
--- NOTE | 2022-08-29 11:14 | PCM.PN.HOSP ---
Reason for Visit Reason for Visit: Diagnoses Type 2 diabetes mellitus with diabetic polyneuropathy (08/25/22) Essential (primary) hypertension (08/25/22) Atherosclerotic heart disease of [place] coronary artery without angina pectoris (08/25/22) Ischemic cardiomyopathy (08/25/22) Chronic diastolic (congestive) heart failure (08/25/22) Postprocedural cardiac arrest following other surgery (08/25/22) Non-pressure chronic ulcer of other part of right foot with fat layer exposed (08/25/22) Other acute osteomyelitis, right ankle and foot (08/25/22) Osteomyelitis, unspecified (08/25/22) Chronic kidney disease, stage 3a (08/25/22) Subjective Subjective Patient was seen and examined today, I talked with podiatry about his care as well as infectious diseases (by text), I also talked briefly with cardiology. Patient appears stable for discharge at this time and I have agreed to fill out discharge paperwork for podiatry to facilitate the patient's discharge. Patient is having no chest pain and he would prefer to go home rather than to go to a intermediate facility. Patient will be treated with oral antibiotics rather than IV antibiotics according to infectious diseases. Objective Data Objective Data Vital Signs: Vital Signs Temp Pulse Resp BP Pulse Ox O2 Del Method O2 Flow Rate 98.3 F 71 18 162/81 H 93 Nasal Cannula 2 08/29/22 03:20 08/29/22 03:20 08/29/22 03:20 08/29/22 03:20 08/29/22 07:41 08/29/22 07:41 08/29/22 07:41 Oxygen Flow Rate (L/min) 2 Oxygen Delivery Method Nasal Cannula Weight: 138.3 kg Body Mass Index (BMI) 42.5 Intake & Output: Intake and Output for Last 24 Hours 08/27/22 08/28/22 08/29/22 23:59 23:59 23:59 Intake Total 2085 / 2085 969.5 / 969.5 434 / 434 Output Total 1999 / 1999 1100 / 1100 400 / 400 Balance 85 / 85 -130.5 / -130.5 34 / 34 Lab / Micro Data Result Diagrams: 08/29/22 05:55 08/29/22 05:55 Labs: Laboratory Results - last 24 hr 08/29/22 05:55: Random Vancomycin 12.5 08/29/22 05:55: Sodium 141, Potassium 4.2, Chloride 111 H, Carbon Dioxide 25.0, Anion Gap 5, BUN 73 H, Creatinine 3.69 H, Estim Creat Clear Calc 24.37, Est GFR (MDRD) Af Amer 22 L, Est GFR (MDRD) Non-Af 18 L, BUN/Creatinine Ratio 19.8, Glucose 107 H, Calcium 8.6, Total Bilirubin 0.30, AST 15, ALT 27, Alkaline Phosphatase 60, Total Protein 7.5, Albumin 2.2 L, Globulin 5.3 H, Albumin/Globulin Ratio 0.4 L 08/29/22 05:55: WBC 11.2 H, RBC 3.28 L, Hgb 8.1 L, Hct 27.2 L, MCV 82.9, MCH 24.7 L, MCHC 29.8 L, RDW Std Deviation 48.3 H, RDW Coeff of Rajendra 16.0 H, Plt Count 332, MPV 9.8 Micro: Microbiology 08/25/22 Unknown Wound - Toe Gram Stain - Final 08/25/22 Unknown Wound - Toe Wound Culture - Final Meth. resistant Staph. aureus Turicella otitidis 08/25/22 Unknown Tissue - 5th Toe Gram Stain - Final 08/25/22 Unknown Tissue - 5th Toe Wound Culture - Final Meth. resistant Staph. aureus 08/25/22 Unknown Tissue - 5th Toe Anaerobic Culture - Preliminary Checking for anaerobes, further studies to follow. 08/25/22 Unknown Bone - 5th Toe Gram Stain - Final 08/25/22 Unknown Bone - 5th Toe Wound Culture - Final Meth. resistant Staph. aureus 08/25/22 Unknown Bone - 5th Toe Anaerobic Culture - Preliminary Radiography Diagnostic Testing: Radiology Impression Venous Doppler Study 08/25/22 12:51 Interpretation Summary There is no evidence of right lower extremity deep vein thrombosis. Right great saphenous vein appears patent and compressible segmentally. Pulsatile venous flow was noted bilaterally consistent with proximal venous hypertension or obstruction. Clinical correlation would be appropriate. Normal flow patterns left common femoral vein Ordering Physician: Everett Julien Performed By: Altaf Holland RVT Physical Exam Narrative alert, oriented x3 and no apparent distress Constitutional Narrative: Patient is morbidly obese General Appearance: cooperative, well kempt and well developed Orientation / Consciousness: awake, oriented to person, oriented to place and oriented to time HEENT normocephalic and moist oral mucous membranes Eyes PERRL, EOMs intact bilaterally and conjunctivae normal Neck supple, no JVD, thyroid normal and no carotid bruits General: trachea midline Resp normal respiratory effort, no retractions, no use of accessory muscles and clear to auscultation bilaterally Auscultation: Negative for rales, rhonchi or wheezes Cardio regular rate, regular rhythm, S1 normal heart sound, S2 normal heart sound, no murmurs, no rub and no gallops GI normal to inspection, nondistended, normoactive bowel sounds, soft to palpation, non-tender and non-distended Extremity Extremity Narrative: Patient's right foot is wrapped with surgical dressing, this was not removed for examination of the foot. Skin no rashes Neuro oriented x3, CN's II-XII intact bilaterally, moves all extremities and no focal motor deficits Sensorium / Orientation: awake, alert, oriented to person, oriented to place and oriented to time Speech: speech normal Psych affect normal Assessment & Plan Assessment/Plan (1) Hypertension: (2) Postoperative cardiac arrest following non-cardiac surgery: (3) Osteomyelitis of right foot: PLAN: Plan 1. Right fifth toe osteomyelitis-status post partial fifth ray resection right foot on 08/25/2022-surgical care per podiatry at this time, infectious diseases is recommending PICC line placement with IV vancomycin, I will discuss this with nephrology #2 status postcardiac arrest in the operating room during his surgery-etiology unclear at this point #3 type 2 diabetes-blood sugars will be monitored, sliding scale insulin will use as needed #4 ischemic cardiomyopathy-patient's last echocardiogram on 08/26/2022 showed an EF of 35 to 40%, again cardiology is participating in his care #5 morbid obesity-complicates care, medical course, recovery, and prognosis #6 stage IV chronic kidney disease secondary to type 2 diabetes-complicates care, medical course, recovery, and prognosis, labs will be monitored #7 anemia secondary to chronic kidney disease on a backdrop of iron deficiency anemia-patient's CBC will be monitored as appropriate, he does not require blood transfusion at this time #8 occlusive coronary disease right coronary artery and LAD-patient had angioplasty and stent placement Total clinical time spent by myself addressing the patient's medical issues, reviewing all of his data, and collaborating with patient's care team: 50 minutes Charges/Coding Visit Charges Inpatient E&M: 00869 Subs Hosp L3
--- NOTE | 2022-08-29 12:39 | PCM.PN.REN ---
Subjective Subjective No new complaints. Urine output has been good. Creatinine is somewhat better. Objective Data Objective Data Vital Signs: Vital Signs Temp Pulse Resp BP Pulse Ox O2 Del Method O2 Flow Rate 98.4 F 72 18 160/83 H 95 Room Air 2 08/29/22 11:00 08/29/22 11:00 08/29/22 11:00 08/29/22 11:00 08/29/22 11:00 08/29/22 11:00 08/29/22 07:41 Oxygen Flow Rate (L/min) 2 Oxygen Delivery Method Room Air Weight: 138.3 kg Body Mass Index (BMI) 42.5 Intake & Output: Intake and Output for Last 24 Hours 08/27/22 08/28/22 08/29/22 23:59 23:59 23:59 Intake Total 2085 / 2085 969.5 / 969.5 634 / 634 Output Total 1999 / 1999 1100 / 1100 400 / 400 Balance 85 / 85 -130.5 / -130.5 234 / 234 Lab / Micro Data Result Diagrams: 08/29/22 05:55 08/29/22 05:55 Labs: Laboratory Results - last 24 hr 08/29/22 05:55: Random Vancomycin 12.5 08/29/22 05:55: Sodium 141, Potassium 4.2, Chloride 111 H, Carbon Dioxide 25.0, Anion Gap 5, BUN 73 H, Creatinine 3.69 H, Estim Creat Clear Calc 24.37, Est GFR (MDRD) Af Amer 22 L, Est GFR (MDRD) Non-Af 18 L, BUN/Creatinine Ratio 19.8, Glucose 107 H, Calcium 8.6, Total Bilirubin 0.30, AST 15, ALT 27, Alkaline Phosphatase 60, Total Protein 7.5, Albumin 2.2 L, Globulin 5.3 H, Albumin/Globulin Ratio 0.4 L 08/29/22 05:55: WBC 11.2 H, RBC 3.28 L, Hgb 8.1 L, Hct 27.2 L, MCV 82.9, MCH 24.7 L, MCHC 29.8 L, RDW Std Deviation 48.3 H, RDW Coeff of Rajendra 16.0 H, Plt Count 332, MPV 9.8 Micro: Microbiology 08/25/22 Unknown Wound - Toe Gram Stain - Final 08/25/22 Unknown Wound - Toe Wound Culture - Final Meth. resistant Staph. aureus Ch[place]aa mauriceitidis 08/25/22 Unknown Tissue - 5th Toe Gram Stain - Final 08/25/22 Unknown Tissue - 5th Toe Wound Culture - Final Meth. resistant Staph. aureus 08/25/22 Unknown Tissue - 5th Toe Anaerobic Culture - Preliminary Checking for anaerobes, further studies to follow. 08/25/22 Unknown Bone - 5th Toe Gram Stain - Final 08/25/22 Unknown Bone - 5th Toe Wound Culture - Final Meth. resistant Staph. aureus 08/25/22 Unknown Bone - 5th Toe Anaerobic Culture - Preliminary Radiography Diagnostic Testing: Radiology Impression Venous Doppler Study 08/25/22 12:51 Interpretation Summary There is no evidence of right lower extremity deep vein thrombosis. Right great saphenous vein appears patent and compressible segmentally. Pulsatile venous flow was noted bilaterally consistent with proximal venous hypertension or obstruction. Clinical correlation would be appropriate. Normal flow patterns left common femoral vein Ordering Physician: Everett Julien Performed By: Altaf Holland RVT Physical Exam Narrative Alert awake oriented x 3 no obvious distress no pallor no icterus no JVD s1s2 no murmurs lungs clear abdomen soft no organomegaly + edema no cyanosis Assessment & Plan Assessment/Plan (1) Ischemic cardiomyopathy: PLAN: Plan Acute renal failure CKD stage IV CKD stage IV at baseline. S/p coronary angiogram and angioplasty. Urine output remains good. Creatinine stable, somewhat better. no Indications to start dialysis right now. Discussed with hospitalist. Potentially being discharged today with oral doxycycline. We will arrange follow-up in about 2 weeks.
--- NOTE | 2022-08-29 13:33 | PHA.DC.MR ---
Pharmacy Service has performed discharge medication reconciliation for this patient. The patient's discharge medication list was reviewed for discrepancies and discrepancies were resolved. Home Medications aspirin 81 mg chewable tablet 81 mg PO DAILY@0800 heart 09/28/14 atorvastatin 80 mg tablet 80 mg PO QHS cholesterol 30 days #30 tabs 06/21/21 clopidogrel 75 mg tablet 75 mg PO DAILY Blood Thinner 30 days #30 tabs 06/21/21 insulin glargine 100 unit/mL (3 mL) subcutaneous pen (Lantus Solostar U-100 Insulin) 20 unit (0.2 mL) subcut BID Diabetes 30 days #12 mL 06/21/21 isosorbide mononitrate 60 mg tablet,extended release 24 hr 60 mg PO DAILY Heart 30 days #30 tabs 01/12/22 ezetimibe 10 mg tablet 10 mg PO DAILY cholesterol 04/07/22 carvedilol 25 mg tablet 25 mg PO BID #180 tabs 05/25/22 amlodipine 5 mg tablet 5 mg PO DAILY . 06/05/22 ferrous sulfate 325 mg (65 mg iron) tablet (FeroSul) 325 mg PO BID #60 tabs 06/08/22 doxycycline monohydrate 100 mg capsule 100 mg PO BID #84 caps 08/29/22
--- NOTE | 2022-08-29 13:46 | DS.PCM_ITS ---
Providers Date of Admission: 08/25/22 Primary Care Physician: Dr. Joseph Ricks MD Consultations 08/25/22 12:29 Consult: Hospitalist Routine Consulting Provider: Rosanna Garza Reason for Consult: medical management/surg clearance EMERGENT Consult: No Notified: Yes Date Notified: 08/25/22 Time Notified: 13:09 Method of Notification: Text Consult: Infectious Disease Routine Consulting Provider: Cliff Nick Reason for Consult: dm foot infection EMERGENT Consult: No Notified: Yes Date Notified: 08/25/22 Time Notified: 12:33 Method of Notification: Verbal Consult: Onc/Wound/fabric finisher Routine Comment: 08/25/22 17:12 Consult: Cardiology Routine Consulting Provider: Nabeel Julian Reason for Consult: acute cardiopulmonary arrest post op EMERGENT Consult: No Notified: Yes Date Notified: 08/25/22 Time Notified: 17:12 Method of Notification: Verbal 08/25/22 17:28 Consult: Electronic Resources Librarian / Pulmonary Medicine Routine Consulting Provider: Pulmonary Medicine [facility] Reason for Consult: cardiopulmonary arrest post surgery EMERGENT Consult: No Notified: Yes Date Notified: 08/25/22 Time Notified: 17:28 Method of Notification: Text 08/27/22 13:50 Consult: Nephrology Routine Consulting Provider: Francisco Akbar Reason for Consult: CORA on CKD EMERGENT Consult: No Notified: Yes Date Notified: 08/27/22 Time Notified: 13:50 Method of Notification: Answering Service Reason For Visit: R 5TH TOE OSTEOMYTISIS Diagnosis Discharge Diagnosis (1) Ischemic cardiomyopathy: Status: Chronic Code(s): I25.5 - Ischemic cardiomyopathy Medications at Discharge Home Medications aspirin 81 mg chewable tablet 81 mg PO DAILY@0800 heart 09/28/14 atorvastatin 80 mg tablet 80 mg PO QHS cholesterol 30 days #30 tabs 06/21/21 clopidogrel 75 mg tablet 75 mg PO DAILY Blood Thinner 30 days #30 tabs 06/21/21 insulin glargine 100 unit/mL (3 mL) subcutaneous pen (Lantus Solostar U-100 Insulin) 20 unit (0.2 mL) subcut BID Diabetes 30 days #12 mL 06/21/21 isosorbide mononitrate 60 mg tablet,extended release 24 hr 60 mg PO DAILY Heart 30 days #30 tabs 01/12/22 ezetimibe 10 mg tablet 10 mg PO DAILY cholesterol 04/07/22 carvedilol 25 mg tablet 25 mg PO BID #180 tabs 05/25/22 amlodipine 5 mg tablet 5 mg PO DAILY . 06/05/22 ferrous sulfate 325 mg (65 mg iron) tablet (FeroSul) 325 mg PO BID #60 tabs 06/08/22 doxycycline monohydrate 100 mg capsule 100 mg PO BID #84 caps 08/29/22 Hospital Course Operations - (foot surgery, cardiac catheterization) Summary of Care Provided Hospital Course: Patient admitted for acute diabetic foot infection with right 5th toe osteomyelitis patient underwent partial fifth ray resection patient went into cardiac arrest at the end of the procedure, but patient was resuscitated and spent 1 night in the ICU patient underwent cardiac catheterization with stent placement patient stable and will be d/c'd to home with [facility] on PO antibiotics per infectious disease patient refused SNF Physical Exam Narrative Neurovascular status unchanged. Full-thickness incision from the right lateral partial fifth ray resection noted to be well approximated with intact vessel loop closure. There is noted to be mild sanguinous drainage from the site. Resolving erythema edema. No residual purulence at this time. Absent fifth toe. Right lower extremity swelling. Const alert and oriented x3 Weight / BMI Weight Weight: 138.3 kg Body Mass Index (BMI) 42.5 ABG / Lab / Microbiology Data Result Diagrams: 08/29/22 05:55 08/29/22 05:55 Laboratory: Laboratory Results - last 24 hr 08/29/22 05:55: Random Vancomycin 12.5 08/29/22 05:55: Sodium 141, Potassium 4.2, Chloride 111 H, Carbon Dioxide 25.0, Anion Gap 5, BUN 73 H, Creatinine 3.69 H, Estim Creat Clear Calc 24.37, Est GFR (MDRD) Af Amer 22 L, Est GFR (MDRD) Non-Af 18 L, BUN/Creatinine Ratio 19.8, Glucose 107 H, Calcium 8.6, Total Bilirubin 0.30, AST 15, ALT 27, Alkaline Phosphatase 60, Total Protein 7.5, Albumin 2.2 L, Globulin 5.3 H, Albumin/Globulin Ratio 0.4 L 08/29/22 05:55: WBC 11.2 H, RBC 3.28 L, Hgb 8.1 L, Hct 27.2 L, MCV 82.9, MCH 24.7 L, MCHC 29.8 L, RDW Std Deviation 48.3 H, RDW Coeff of Rajendra 16.0 H, Plt Count 332, MPV 9.8 Microbiology: Microbiology 08/25/22 Unknown Wound - Toe Gram Stain - Final 08/25/22 Unknown Wound - Toe Wound Culture - Final Meth. resistant Staph. aureus Turicella otitidis 08/25/22 Unknown Tissue - 5th Toe Gram Stain - Final 08/25/22 Unknown Tissue - 5th Toe Wound Culture - Final Meth. resistant Staph. aureus 08/25/22 Unknown Tissue - 5th Toe Anaerobic Culture - Preliminary Checking for anaerobes, further studies to follow. 08/25/22 Unknown Bone - 5th Toe Gram Stain - Final 08/25/22 Unknown Bone - 5th Toe Wound Culture - Final Meth. resistant Staph. aureus 08/25/22 Unknown Bone - 5th Toe Anaerobic Culture - Preliminary Radiography Diagnostic Testing: Radiology Impression Venous Doppler Study 08/25/22 12:51 Interpretation Summary There is no evidence of right lower extremity deep vein thrombosis. Right great saphenous vein appears patent and compressible segmentally. Pulsatile venous flow was noted bilaterally consistent with proximal venous hypertension or obstruction. Clinical correlation would be appropriate. Normal flow patterns left common femoral vein Ordering Physician: Everett Julien Performed By: Altaf Holland RVT D/C Instructions Discharge Diet: 1800 Calorie Control Diet Weight Bearing Status: No weight bearing (on right foot-may use right heel to pivot) Call your doctor if your incision/area has: Increased Pain/ Swelling and Foul Smelling Discharge Call your doctor if you observe: Fever of 101 or Higher Meaningful Use Info Meaningful Use Diagnoses (Choose all that apply): None applicable Discharge Plan Admission Admit Date/Time: 08/25/22 12:02 Primary Reason for Your Visit: osteomylitis right 5th toe, cardiac arrest Attending Provider: Everett Julien Primary Care Provider: Joseph Ricks Consulting Providers: Giuseppe Oliver ; Nabeel Julian ; Rosanna Garza ; Cliff Nick ; Kushal Dc ; Jose Almaguer ; Ghanshyam Parham ; Willi Alfaro ; Gisela Orozco [employer] ; Francisco Akbar Instructions Additional Instructions / Restrictions: Patient will require home health care dressing changes two times per week consi sting of foot cleansing with soap/water, applying betadine paint to right foot incision, adaptic, 4x4s, kerlix and doc follow up with dr. julien next week, my office will contact patient regarding appointment date/time Discharge Orders/Prescriptions Prescriptions: New doxycycline monohydrate 100 mg capsule 100 mg PO BID Qty: 84 0RF Rx Instructions: one twice a day for 6 weeks Continued aspirin 81 MG tablet,chewable 81 mg PO DAILY@0800 Label Comments: [facility] atorvastatin 80 MG tablet 80 mg PO QHS 30 Days Qty: 30 0RF clopidogrel 75 MG tablet 75 mg PO DAILY 30 Days Qty: 30 0RF insulin glargine [Lantus Solostar U-100 Insulin] 100 unit/mL (3 mL) insulin pen 20 unit subcut BID 30 Days Qty: 12 0RF Rx Instructions: Takes if Blood sugar > 150 ezetimibe 10 mg tablet 10 mg PO DAILY Label Comments: TAKE 1 TABLET BY MOUTH EVERY DAY amlodipine 5 mg tablet 5 mg PO DAILY Label Comments: TAKE ONE TABLET BY MOUTH DAILY ferrous sulfate [FeroSul] 325 mg (65 mg iron) Tablet 325 mg PO BID Qty: 60 0RF isosorbide mononitrate 60 mg tablet extended release 24 hr 60 mg PO DAILY 30 Days Qty: 30 11RF Rx Instructions: please refill now carvedilol 25 mg tablet 25 mg PO BID Qty: 180 3RF Rx Instructions: must administer with a meal/food Discontinued furosemide [Lasix] 20 mg tablet 20 mg PO BID Qty: 180 0RF ciprofloxacin HCl [Cipro] 500 mg tablet 500 mg PO BID Qty: 7 0RF doxycycline monohydrate 100 mg capsule 100 mg PO BID Qty: 14 0RF Referrals / Follow Up: Barry Ken MD [Med Staff - Active Staff] - See Referral Note (call for follow up appointment in 3 weeks) Everett Julien DPM [Med Staff - Active Staff] - In 1 Week Francisco Akbar MD [Med Staff - Consulting] - Within 2 Weeks Joseph Ricks MD [Primary Care Provider] - Disposition Disposition (needs filled in before D/C Order can be placed): Home Health Service
--- NOTE | 2022-08-29 13:53 | CASEMGMT ---
Addendum entered by Taylor Escobar 08/29/22 14:26: RADHA KISER received call back from [facility] and they are not able to accept the patient. RADHA KISER in to update patient. Patient states he has no preferences as long as they are in-network with his insurance. Patient asked if he can discharge as ride is available and to call him when HHC is setup up. Patient had no further questions or concerns at this time. RADHA KISER updated DC senior planning analyst to assist with HHC referrals. Original Note: RADHA KISER updated that patient would like HHC at discharge. RADHA KISER in to discuss discharge needs. A list of C providers including quality and resource use data and consistent with the patient?s preferred geographical region, medical needs, and insurance network were provided from the [facility] Guide. Patient prefers [facility] for HHC. Patient states his son will assist with dressing changes. Patient denied further needs or concerns at this time. RADHA KISER called [facility] with referral, awaiting acceptance. CM will continue to follow this patient and plan for a safe discharge.
--- NOTE | 2022-08-29 13:57 | CASEMGMT ---
Discharge Planning HH referral sent to [facility] via [facility]. Meka Hayes
--- NOTE | 2022-08-29 14:33 | CASEMGMT ---
Discharge Planning Referral sent to [facility] for fpc via [facility]. Meka Hayes
[2022-08-29 14:40] VITALS: BP 146/75; PULSE 65; RESP 18; TEMP 36.5; O2SAT 98
--- NOTE | 2022-08-29 15:17 | CASEMGMT ---
Discharge Planning [facility] declined patient d/t being [id number]. Referrals sent to [facility] and [facility] via [facility]. Meka Hayes
--- NOTE | 2022-08-29 15:22 | CASEMGMT ---
Discharge Planning [facility] declined d/t not in network. RN CM notified. Meka Hayes
--- NOTE | 2022-08-29 15:32 | CASEMGMT ---
Discharge Planning Referral for intermediate HH sent to [facility]. Meka Hayes
--- NOTE | 2022-08-29 16:21 | CASEMGMT ---
Discharge Planning [facility] declined d/t not able to staff. New referrals sent to [facility] via [facility]. Meka Hayes
--- NOTE | 2022-08-30 09:49 | CASEMGMT ---
Discharge Planning [facility] declined referral. RN CM notified. Meka Hayes
--- NOTE | 2022-09-07 10:47 | CASEMGMT ---
RADHA KISER NOTE: Attempted to reach pt notify him to let him no C agencies have been able to accept him, to inquire how he has been doing and if he is still interested in HHC. No answer. VM left for him to return call either to this RADHA KISER today or Taylor Escobar RN CM, tomorrow. Phone numbers provided. Valentino ARVIZU RN, CM
== END 2022-08-29 14:40 | disposition home health service (06) | DRG 617 ==
LOC: MS3 12:17 → ICU 16:27 → PCU 08-26 17:34
PROVIDERS: Anesthesiology; Family Medicine; Internal Medicine; Nurse Practitioner Adult Health; Specialist; Student in an Organized Health Care Education/Training Program; Admitting Provider Podiatrist; PCP Family Medicine; Visit Provider Podiatrist
PROC: 0Y6M0ZF Detachment at Right Foot, Partial 5th Ray, Open Approach (ICD-10-PCS; principal; 2022-08-25 15:15)
DX: E11.621 Type 2 diabetes mellitus with foot ulcer (principal); I13.0 Hypertensive heart and chronic kidney disease with heart failure and stage 1 through stage 4 chronic kidney disease, or unspecified chronic kidney disease; M86.171 Other acute osteomyelitis, right ankle and foot; I50.42 Chronic combined systolic (congestive) and diastolic (congestive) heart failure; I97.121 Postprocedural cardiac arrest following other surgery; N17.9 Acute kidney failure, unspecified; E11.22 Type 2 diabetes mellitus with diabetic chronic kidney disease; L97.512 Non-pressure chronic ulcer of other part of right foot with fat layer exposed; D50.9 Iron deficiency anemia, unspecified; B95.62 Methicillin resistant Staphylococcus aureus infection as the cause of diseases classified elsewhere; E11.42 Type 2 diabetes mellitus with diabetic polyneuropathy; E11.628 Type 2 diabetes mellitus with other skin complications; Z79.4 Long term (current) use of insulin; N18.4 Chronic kidney disease, stage 4 (severe); E78.5 Hyperlipidemia, unspecified; I25.5 Ischemic cardiomyopathy; I25.10 Atherosclerotic heart disease of native coronary artery without angina pectoris; Z79.02 Long term (current) use of antithrombotics/antiplatelets; Z86.16 Personal history of COVID-19; E66.9 Obesity, unspecified; Z95.5 Presence of coronary angioplasty implant and graft; Z79.82 Long term (current) use of aspirin; Z79.2 Long term (current) use of antibiotics; Z66 Do not resuscitate
CPT/HCPCS: 36415; 71045; 80048; 80053; 80202; 82962; 83036; 84484; 85025; 85027; 85610; 85730; 86140; 87015; 87070; 87075; 87077; 87102; 87116; 87186; 87205; 87206; 88305; 88311; 92920; 92928; 93005; 93306; 93454; 93971; 94668; 97166; 97802; 99152; 99153; 99252; C1725; J7030; J7040; J7050; J7120; Q9957; Q9967; A4216; C1769; C1874; C1887; C1894; C8929; C9600; G0463; J2310; J2405; J2785

== ENCOUNTER → 2022-11-08 | Outpatient (CLI) | payer OTHER, SELFPAY ==
[2018-12-25 08:56] VITALS: BMI 37.9
[2022-11-08 07:13] LABS: Hematocrit 32.5 % (40-54); Hemoglobin 10.2 g/dL (13.0-16.5); Mean Corp Hgb Conc 31.4 g/dL (32-36); Mean Corpuscular Hgb 26.9 pg (27.0-32.0); Mean Corpuscular Volume 85.8 fL (80-94); Mean Platelet Vol. 10.2 fl (6.2-12.0); Platelet Count 219 K/mm3 (150-450); RBC Distribution Width CV 18.1 % (11.6-14.6); RBC Distribution Width SD 56.7 fl (35.1-43.9); Red Blood Count 3.79 M/mm3 (4.6-6.2); White Blood Count 6.6 K/mm3 (4.4-11.0)
[2022-11-08 07:14] LABS: Protein, Urine (Random) 160.4 mg/dL (<11.9); Protein:Creat Ratio 1968 mg/g CRE (0-200)
[2022-11-08 07:42] LABS: PTHIN 421.4 pg/mL (18.4-80.1)
[2022-11-08 07:43] LABS: Albumin, Serum 3.4 g/dL (3.2-5.0); BUN 92 mg/dL (7-18); BUN/Creat Ratio 23.2 RATIO (10-20); Calcium,Total 8.4 mg/dL (8.5-10.1); Chloride 112 mmol/L (98-107); Creatinine, Serum 3.97 mg/dL (0.70-1.30); EST Glomerular Filtration Rate 17 mL/min (>60); Est Glom Filt Rate - Afr Amer 20 mL/min (>60); Glucose 147 mg/dL (74-106); Phosphorus 5.3 mg/dL (2.5-4.9); Potassium 4.1 mmol/L (3.5-5.1); Sodium Level 142 mmol/L (136-145)
[2022-11-08 07:45] LABS: Vitamin D,25 Hydroxy 18.2 ng/mL
[2022-11-09 14:10] LABS: Free Kappa Light Chains 518.1 mg/L (3.3-19.4); Free Lambda Light Chains 34.9 mg/L (5.7-26.3)
== END | disposition home or self-care (01) ==
LOC: LAB 06:05
PROVIDERS: PCP Family Medicine; Referring Provider Internal Medicine Nephrology; Visit Provider Internal Medicine Nephrology
DX: N18.4 Chronic kidney disease, stage 4 (severe) (principal)
CPT/HCPCS: 36415; 80069; 82306; 82570; 83883; 83970; 84156; 85027

== ENCOUNTER 2022-12-20 17:34 | Inpatient (IN) | payer OTHER, SELFPAY ==
[2018-12-25 08:56] VITALS: BMI 37.9
[2022-12-20] VITALS (9 sets, daily range): BP systolic 158–181; BP diastolic 84–92; PULSE 72–97; RESP 18–27; TEMP 35.7–37; O2SAT 76–98; BMI 44.8; BMI 44.2
--- NOTE | 2022-12-20 17:58 | EKG12_ITS ---
Test Reason : CP/Elevated troponins Blood Pressure : / mmHG Vent. Rate : 073 BPM Atrial Rate : 073 BPM P-R Int : 184 ms QRS Dur : 118 ms QT Int : 398 ms P-R-T Axes : 051 031 152 degrees QTc Int : 438 ms Normal sinus rhythm Minimal voltage criteria for LVH, may be normal variant ( Doroteo product ) Inferior infarct , age undetermined ST & T wave abnormality, consider lateral ischemia Abnormal ECG Confirmed by BUD NUNEZ, GUILLERMO ([id number]), society editor AYAKA CRESPO ([id number]) on 12/27/2022 1:52:38 PM Referred By: Braden Confirmed By:SNEHAL FARRELL MD
--- NOTE | 2022-12-20 18:08 | EDS_ITS ---
HPI History of Present Illness Chief Complaint: Shortness of Breath Narrative Narrative: 52-year-old male past medical history of congestive heart failure presents with his son because of increasing dyspnea and shortness of breath that has had for the last few days. He denies any fevers or chills but has occasional cough. He states it is deep, and he occasionally brings up clear phlegm. He denies any increased swelling of his bilateral lower extremities but thinks he may have had minor weight gain. He is on a water pill and perhaps takes 60 mg of Lasix twice a day. He sees Dr. Barry Ken as his integrity consultant. He presents because of the increasing shortness of breath, and additionally he was found to be hypoxic in triage. He denies any chest pain or tightness, no nausea or vomiting or other symptoms. [facility] Medical History Anemia in chronic illness Atherosclerotic heart disease of [place] coronary artery without angina pectoris Carotid artery stenosis Chronic diastolic (congestive) heart failure Chronic kidney disease Chronic kidney disease Chronic kidney disease, stage 3a Coronary artery disease Depression Diabetes mellitus Diabetes mellitus with diabetic polyneuropathy Diabetes mellitus, type II Diabetic infection of left foot Edema, peripheral Essential (primary) hypertension History of non-ST elevation myocardial infarction (NSTEMI) (08/25/22) History of stress test Hyperlipidemia Hyperlipidemia Hypertension Hypertension Hypomagnesemia Infected sebaceous cyst Insulin dependent diabetes mellitus Ischemic cardiomyopathy (06/2013) Left ventricular systolic dysfunction (LVSD) Non-pressure 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 of bone Non-pressure chronic ulcer of other part of left foot with fat layer exposed Non-pressure chronic ulcer of other part of left foot with fat layer exposed Obesity Other acute osteomyelitis, right ankle and foot Paresthesias Partial nontraumatic amputation of right foot Pneumonia due to COVID-19 virus (03/14/20) Postoperative cardiac arrest following non-cardiac surgery Type 2 diabetes mellitus with diabetic neuropathy, unspecified Type 2 diabetes mellitus with diabetic polyneuropathy Type 2 diabetes mellitus with foot ulcer Ulcer of right foot with fat layer exposed Venous insufficiency Venous insufficiency of both lower extremities Home Medications aspirin 81 mg chewable tablet 81 mg PO DAILY@0800 heart 09/28/14 [History Last Taken 12/20/18] atorvastatin 80 mg tablet 80 mg PO QHS cholesterol 30 days #30 tabs 06/21/21 [Rx Last Taken Unknown] clopidogrel 75 mg tablet 75 mg PO DAILY Blood Thinner 30 days #30 tabs 06/21/21 [Rx Last Taken Unknown] insulin glargine 100 unit/mL (3 mL) subcutaneous pen (Lantus Solostar U-100 Insulin) 20 unit (0.2 mL) subcut BID Diabetes 30 days #12 mL 06/21/21 [Rx Last Taken Unknown] isosorbide mononitrate 60 mg tablet,extended release 24 hr 60 mg PO DAILY Heart 30 days #30 tabs 01/12/22 [Rx Last Taken Unknown] ezetimibe 10 mg tablet 10 mg PO DAILY cholesterol 04/07/22 [History Last Taken Unknown] carvedilol 25 mg tablet 25 mg PO BID #180 tabs 05/25/22 [Rx Last Taken Unknown] amlodipine 5 mg tablet 5 mg PO DAILY . 06/05/22 [History Last Taken Unknown] ferrous sulfate 325 mg (65 mg iron) tablet (FeroSul) 325 mg PO BID #60 tabs 06/08/22 [Rx Last Taken Unknown] doxycycline monohydrate 100 mg capsule 100 mg PO BID #84 caps 08/29/22 [Rx Last Taken Unknown] Allergy/AdvReac Type Severity Reaction Status Date / Time lisinopril AdvReac Intermediate Cough Verified 08/24/22 17:08 losartan AdvReac Intermediate cough Verified 08/24/22 17:08 Family History Father , Age 57 from [place] Myocardial infarction CAD (coronary artery disease) Sudden cardiac Mother Sick sinus syndrome Sister Diabetes Other History of coronary artery stent placement History of non-ST elevation myocardial infarction (NSTEMI) Surgical History H/O cardiac catheterization History of coronary artery stent placement (08/28/22) Social History household members: none Smoking Status: Never smoker alcohol intake: current alcohol intake frequency: holidays/special occasions only substance use type: does not use caffeine: Yes Type: carbonated beverages Number of servings: 2 ROS ROS ED ROS Narrative Constitutional: No fever, no chills. Mild weight gain. HEENT: No sore throat. No neck pain. No loss of vision. No rhinorrhea. Cardiovascular: No chest pain. No palpitations. Chronic pedal edema. Respiratory: No cough, positive shortness of breath and dyspnea on exertion. Abdominal: No abdominal pain. No nausea. No vomiting. Genitourinary: No dysuria. No hematuria. Musculoskeletal: No myalgias. No arthralgias. Neurologic: No headaches. No dizziness. No lightheadedness. Skin: No rash. No change in color. Psychiatric: No depression. No anxiety. EXAM Physical Exam Narrative Exam Narrative: Afebrile. Vital signs noted. HEENT: Normocephalic. Atraumatic. PERRL, EOMI. Neck soft and supple. No point tenderness or step off. Cardiovascular: Regular rate and rhythm. No murmurs, rubs, or gallops appreciated. Respiratory: No tachypnea. Lungs clear to auscultation bilaterally. Greased breath sounds bilateral bases. Gastrointestinal: Abdomen soft, nontender, with normoactive bowel sounds. No rebound or guarding. Neurological: Awake. Alert. Nonfocal, nonlateralizing. Skin: No rash. Normal color. No pallor. Musculoskeletal: Bilateral symmetric pitting pedal edema. Full range of motion extremities. Const Vital Signs: 12/20/22 17:37 12/20/22 17:41 12/20/22 17:50 Temperature 96.2 F L 96.2 F L Temperature Source Temporal Temporal Pulse Rate 72 72 Respiratory Rate 26 H 26 H Respiratory Effort Blood Pressure 168/89 H 167/86 H Blood Pressure Mean 115 113 Pulse Ox 76 93 93 Oxygen Delivery Method Room Air Nasal Cannula Nasal Cannula Oxygen Flow Rate (L/min) 4 4 12/20/22 18:06 12/20/22 18:45 12/20/22 18:45 Temperature 97 F L Temperature Source Temporal Pulse Rate 73 72 Respiratory Rate 27 H 27 H Respiratory Effort Blood Pressure 162/84 H Blood Pressure Mean 110 Pulse Ox 98 95 95 Oxygen Delivery Method Nasal Cannula Nasal Cannula Nasal Cannula Oxygen Flow Rate (L/min) 2 12/20/22 18:48 12/20/22 19:37 Temperature 98.6 F Temperature Source Oral Pulse Rate 73 Respiratory Rate 24 H Respiratory Effort Short of Breath Labored Blood Pressure 181/90 H Blood Pressure Mean 120 Pulse Ox 95 Oxygen Delivery Method Nasal Cannula Oxygen Flow Rate (L/min) 4 MDM MDM MDM Narrative Medical decision making narrative: Concern is for CHF exacerbation given his pedal edema, and hypoxia. As he was hypoxic, he was placed on nasal cannula oxygen at 2 L with resultant pulse ox of 98% on room air. Lower on the differential is pulmonary embolism as he is not tachycardic. He does have elevated blood pressure and could be having more of a hypertensive urgency. He may have underlying COPD as well. EKG was obtained and interpreted by myself independently as normal sinus rhythm at 71 bpm without ectopy or acute ST changes, no STEMI. I reviewed his laboratory work from today and he has a normal white count of 8.3, hemoglobin stable at 9.7 with hematocrit 32.4, platelet count normal at 216. Chloride is elevated at 113 which I think is nonspecific, normal sodium of 142 and potassium 4.5, BUN is elevated at 83 and he has a creatinine high at 4.6, but his baseline seems to be around 3 or 4. BNP is elevated at 566 but has been much higher in the past. Chest x-ray interpreted by myself and 1 view shows cardiomegaly but no evidence of acute heart failure. No pneumonia. I do not feel antibiotics are indicated. I reviewed the radiology report which confirms my independent interpretation. His troponin is elevated above 700. I reviewed his prior laboratory work, and back in August, he did have troponins elevated in the 100s. I reviewed the catheterization report which showed that he did have coronary artery disease and needed to be reangioplasty, and he has evidence of previous stent placement. He did have narrowing of his circumflex artery as well. I discussed patient with his integrity consultant, Dr. Barry Ken, who did not want him started on a heparin drip, but rather given a one-time dose of Lovenox at 1 mg/kg even though he has chronic kidney disease. Further management will be obtained as an inpatient. I discussed patient with Dr. Feliciano for admission to the PCU. While I am uncertain as to why he has hypoxia, he is satting well on 2 L nasal cannula oxygen. I am unable to obtain emergent CTA of the chest given his creatinine of 4.6. He was given that dose of Lovenox as a blood thinner regardless. Patient is in stable condition. History & Record Review Discussion w/independent historian: Patient Additional record(s) reviewed:: Prior ED visit and Prior labs Lab Data Attestation: I reviewed the patient's lab results. Labs: Laboratory Results - last 24 hr 12/20/22 18:01 WBC 8.3 RBC 3.47 L Hgb 9.7 L Hct 32.4 L MCV 93.4 MCH 28.0 MCHC 29.9 L RDW Std Deviation 63.8 H RDW Coeff of Rajendra 18.8 H Plt Count 216 MPV 10.5 Immature Gran % (Auto) 0.400 Neut % (Auto) 81.1 H Lymph % (Auto) 5.6 L [place] % (Auto) 7.6 Eos % (Auto) 4.6 Baso % (Auto) 0.7 Absolute Neuts (auto) 6.7 Absolute Lymphs (auto) 0.46 L Nucleated RBC % 0 Differential Comment SCANNED Sodium 142 Potassium 4.5 Chloride 113 H Carbon Dioxide 24.0 Anion Gap 5 BUN 83 H Creatinine 4.60 H Estim Creat Clear Calc 19.55 Est GFR (MDRD) Af Amer 17 L Est GFR (MDRD) Non-Af 14 L BUN/Creatinine Ratio 18.0 Glucose 161 H Calcium 8.4 L Troponin I High Sens 711 H* B-Natriuretic Peptide 566.5 H Radiography Diagnostic Testing: Clinical Impression(s) from Imaging Studies Chest X-Ray 12/20/22 18:12 IMPRESSION: Cardiomegaly. Electronically Signed: Kolby Veronica DO at 18:28 EDT Reading Location ID and State: [facility] / [place] Tel [phone], Service support , Discharge Plan Dx/Rx/DC Orders Clinical Impression: Ischemic cardiomyopathy, Elevated troponin, Hypoxia, Chronic kidney disease, stage 3a Disposition Disposition: Acute Care Hospital [facility] Discharge Date/Time: 12/20/22 21:59
--- NOTE | 2022-12-20 18:12 | RAD_ITS ---
INDICATION: Shortness of Breath EXAMINATION/TECHNIQUE: X-RAY - XR Chest 1 View COMPARISON: August 25, 2022 FINDINGS: LINES/DEVICES: None. LUNGS: No consolidation, edema or effusion. No pneumothorax. MEDIASTINUM AND CARDIOVASCULAR STRUCTURES: Cardiac silhouette is enlarged. Central airways and mediastinal contour are unremarkable. BONES AND SOFT TISSUES: Unremarkable. RAD/Chest 1 View (Portable) IMPRESSION: Cardiomegaly. Electronically Signed: Kolby Veronica DO at 18:28 EDT ,
[2022-12-20 18:22] LABS: Absolute Lymphocyte Count 0.46 X10^3/uL (0.83-4.51); Absolute Neutrophil Count 6.7 X10^3/uL (2.0-7.7); Basophil# 0.06 X10^3/uL; Basophil% 0.7 % (0-1); Eosinophil# 0.38 X10^3/uL; Eosinophils% 4.6 % (0-5); Hematocrit 32.4 % (40-54); Hemoglobin 9.7 g/dL (13.0-16.5); Lymphocyte # 0.46 X10^3/ul (0.83-4.51); Lymphocyte % 5.6 % (19-41); Mean Corp Hgb Conc 29.9 g/dL (32-36); Mean Corpuscular Volume 93.4 fL (80-94); Mean Platelet Vol. 10.5 fl (6.2-12.0); Monocyte# 0.63 X10^3/uL; Monocyte% 7.6 % (0-10); NRBC Flagged by Analyzer 0 % (0-5); Neutrophil # 6.69 X10^3/uL (2.7-7.7); Neutrophil % 81.1 % (47-70); POSITIVE DIFFERENTIAL YES; Platelet Count 216 K/mm3 (150-450); RBC Distribution Width CV 18.8 % (11.6-14.6); RBC Distribution Width SD 63.8 fl (35.1-43.9); Red Blood Count 3.47 M/mm3 (4.6-6.2); White Blood Count 8.3 K/mm3 (4.4-11.0)
[2022-12-20 18:23] LABS: Differential Indicated SCAN CRITERIA MET
[2022-12-20 18:41] LABS: Anion Gap 5 (5-15); BUN 83 mg/dL (7-18); Calcium,Total 8.4 mg/dL (8.5-10.1); Chloride 113 mmol/L (98-107); EST Glomerular Filtration Rate 14 mL/min (>60); Est Glom Filt Rate - Afr Amer 17 mL/min (>60); Estimated Creatinine Clearance 19.55 ml/min; Glucose 161 mg/dL (74-106); Potassium 4.5 mmol/L (3.5-5.1); Sodium Level 142 mmol/L (136-145); Troponin-I HS 711 pg/mL (3.0-78.0)
[2022-12-20 18:46] LABS: Differential Comment SCANNED
[2022-12-20 18:59] LABS: BNP,B-Type NATRIURETIC PEPTIDE 566.5 pg/mL (0-100)
[2022-12-20] MEDS: Aspirin 81 MG TAB.CHEW 324 MG PO (19:19)
[2022-12-20] MEDS: Enoxaparin 150 MG/ML Syringe 146 MG SC (20:17)
--- NOTE | 2022-12-20 20:29 | PCM.HP.STD ---
HPI - General General Date of Admission: 12/20/22 Date of Service: 12/20/22 Chief Complaint: Shortness of breath HPI Narrative YOSEPH PERSAUD, is a 52 M with a significant history of hypertension, heart failure with ejection fraction; diabetes mellitus and CKD who presents emergency department with 4-day history of progressively worsening shortness of breath. On presentation to emergency department his oxygen saturation was 76% on room air. Associated with his symptoms is cough. He denies any fever. At the ED patient required supplemental oxygenation. He reports chronic orthopnea that has not changed. He denies past vomiting or dyspnea. On presentation to the ED patient troponin was elevated. ED physician discussed case with cardiology who recommended patient receives one-time dose of Lovenox. Also BNP on presentation was elevated Patient reports that because of kidney disease he had a bone biopsy on the same day of presentation. He sees nephrology who referred him to oncology, Dr. Heard. [facility] Medical History Anemia in chronic illness Atherosclerotic heart disease of [place] coronary artery without angina pectoris Carotid artery stenosis Chronic diastolic (congestive) heart failure Chronic kidney disease Chronic kidney disease Chronic kidney disease, stage 3a Coronary artery disease Depression Diabetes mellitus Diabetes mellitus with diabetic polyneuropathy Diabetes mellitus, type II Diabetic infection of left foot Edema, peripheral Essential (primary) hypertension History of non-ST elevation myocardial infarction (NSTEMI) (08/25/22) History of stress test Hyperlipidemia Hyperlipidemia Hypertension Hypertension Hypomagnesemia Infected sebaceous cyst Insulin dependent diabetes mellitus Ischemic cardiomyopathy (06/2013) Left ventricular systolic dysfunction (LVSD) Non-pressure 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 of bone Non-pressure chronic ulcer of other part of left foot with fat layer exposed Non-pressure chronic ulcer of other part of left foot with fat layer exposed Obesity Other acute osteomyelitis, right ankle and foot Paresthesias Partial nontraumatic amputation of right foot Pneumonia due to COVID-19 virus (03/14/20) Postoperative cardiac arrest following non-cardiac surgery Type 2 diabetes mellitus with diabetic neuropathy, unspecified Type 2 diabetes mellitus with diabetic polyneuropathy Type 2 diabetes mellitus with foot ulcer Ulcer of right foot with fat layer exposed Venous insufficiency Venous insufficiency of both lower extremities Home Medications aspirin 81 mg chewable tablet 81 mg PO DAILY@0800 heart 09/28/14 [History Last Taken 12/20/18] atorvastatin 80 mg tablet 80 mg PO QHS cholesterol 30 days #30 tabs 06/21/21 [Rx Last Taken Unknown] clopidogrel 75 mg tablet 75 mg PO DAILY Blood Thinner 30 days #30 tabs 06/21/21 [Rx Last Taken Unknown] insulin glargine 100 unit/mL (3 mL) subcutaneous pen (Lantus Solostar U-100 Insulin) 20 unit (0.2 mL) subcut BID Diabetes 30 days #12 mL 06/21/21 [Rx Last Taken Unknown] isosorbide mononitrate 60 mg tablet,extended release 24 hr 60 mg PO DAILY Heart 30 days #30 tabs 01/12/22 [Rx Last Taken Unknown] ezetimibe 10 mg tablet 10 mg PO DAILY cholesterol 04/07/22 [History Last Taken Unknown] carvedilol 25 mg tablet 25 mg PO BID #180 tabs 05/25/22 [Rx Last Taken Unknown] amlodipine 5 mg tablet 5 mg PO DAILY . 06/05/22 [History Last Taken Unknown] ferrous sulfate 325 mg (65 mg iron) tablet (FeroSul) 325 mg PO BID #60 tabs 06/08/22 [Rx Last Taken Unknown] doxycycline monohydrate 100 mg capsule 100 mg PO BID #84 caps 08/29/22 [Rx Last Taken Unknown] Allergy/AdvReac Type Severity Reaction Status Date / Time lisinopril AdvReac Intermediate Cough Verified 08/24/22 17:08 losartan AdvReac Intermediate cough Verified 08/24/22 17:08 Family History Father , Age 57 from [place] Myocardial infarction CAD (coronary artery disease) Sudden cardiac Mother Sick sinus syndrome Sister Diabetes Other History of coronary artery stent placement History of non-ST elevation myocardial infarction (NSTEMI) Surgical History H/O cardiac catheterization History of coronary artery stent placement (08/28/22) Social History household members: none Smoking Status: Never smoker alcohol intake: current alcohol intake frequency: holidays/special occasions only substance use type: does not use caffeine: Yes Type: carbonated beverages Number of servings: 2 ROS ROS Narrative Pertinent positives and pertinent negatives as noted in HPI. All other systems were reviewed and are negative Vital Signs Vital Signs Vital Signs: 12/20/22 17:37 12/20/22 17:41 12/20/22 17:50 Temperature 96.2 F L 96.2 F L Temperature Source Temporal Temporal Pulse Rate 72 72 Respiratory Rate 26 H 26 H Respiratory Effort Blood Pressure 168/89 H 167/86 H Blood Pressure Mean 115 113 Pulse Ox 76 93 93 Oxygen Delivery Method Room Air Nasal Cannula Nasal Cannula Oxygen Flow Rate (L/min) 4 4 12/20/22 18:06 12/20/22 18:45 12/20/22 18:45 Temperature 97 F L Temperature Source Temporal Pulse Rate 73 72 Respiratory Rate 27 H 27 H Respiratory Effort Blood Pressure 162/84 H Blood Pressure Mean 110 Pulse Ox 98 95 95 Oxygen Delivery Method Nasal Cannula Nasal Cannula Nasal Cannula Oxygen Flow Rate (L/min) 2 12/20/22 18:48 12/20/22 19:37 Temperature 98.6 F Temperature Source Oral Pulse Rate 73 Respiratory Rate 24 H Respiratory Effort Short of Breath Labored Blood Pressure 181/90 H Blood Pressure Mean 120 Pulse Ox 95 Oxygen Delivery Method Nasal Cannula Oxygen Flow Rate (L/min) 4 Weight Weight: 145.83 kg Body Mass Index (BMI) 44.8 Physical Exam Narrative Physical exam: General: Well-nourished, well-developed. Head: Normocephalic, atraumatic, no tenderness Eyes: Vision is grossly intact. EOMI ENT, no trauma, moist mucous membranes, no rhinorrhea Neck: Nontender, No thyromegaly. CVS: Regular rate and rhythm. S1-S2 present. No murmur, gallop or rub. Respiratory : Tachypnea, audible wheezes, faint rales. Abdomen: Soft, nontender, nondistended, normal bowel sounds, no masses : Deferred Back: Nontender, no CVA tenderness. Extremities: Bilateral legs 2+ to 3+ edema; loss of 2 toes of right foot. Skin: Normal color, no trauma, abrasions Neuro: Alert, oriented, cranial nerves II through XII grossly intact. Psychiatry: Normal mood. Normal affect. Not depressed. Not anxious. Results Lab / Micro Data 12/21/22 05:16 12/21/22 05:16 Labs: Laboratory Results - last 24 hr 12/20/22 18:01: WBC 8.3, RBC 3.47 L, Hgb 9.7 L, Hct 32.4 L, MCV 93.4, MCH 28.0, MCHC 29.9 L, RDW Std Deviation 63.8 H, RDW Coeff of Rajendra 18.8 H, Plt Count 216, MPV 10.5, Immature Gran % (Auto) 0.400, Neut % (Auto) 81.1 H, Lymph % (Auto) 5.6 L, [place] % (Auto) 7.6, Eos % (Auto) 4.6, Baso % (Auto) 0.7, Absolute Neuts (auto) 6.7, Absolute Lymphs (auto) 0.46 L, Nucleated RBC % 0, Differential Comment SCANNED, Sodium 142, Potassium 4.5, Chloride 113 H, Carbon Dioxide 24.0, Anion Gap 5, BUN 83 H, Creatinine 4.60 H, Estim Creat Clear Calc 19.55, Est GFR (MDRD) Af Amer 17 L, Est GFR (MDRD) Non-Af 14 L, BUN/Creatinine Ratio 18.0, Glucose 161 H, Calcium 8.4 L, Troponin I High Sens 711 H*, B-Natriuretic Peptide 566.5 H Radiology Impression Chest X-Ray 12/20/22 18:12 IMPRESSION: Cardiomegaly. 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 Weight on admission to the floor; and then daily Strict I&O's CXR independently reviewed confirms concerns cardiomegaly; agrees with radiology interpretation. EKG does not show ST elevations Emergency department labs reviewed showed BNP of 566.5. Highest BNP on file was on 04/07/2022. At the time his BNP was 2,759.2. Trend BNP. With CORA and mildly elevated BNP patient received Lasix at the ED. We will give a trial of Lasix 40 mg IV push x1. Transthoracic echo on 08/26/2022 showed EF of 35-40%. Limited transthoracic echocardiogram to evaluate left ventricular wall motion and systolic function. Monitor electrolytes and renal function Fluid restriction of 1500 mls daily Cardiac diet ordered. With concomitant elevation of creatinine will give one-time dose of Lasix. Trend BMP. Placed on supplemental oxygen, titrate. Non STEMI Patient with an initial troponin of 711 and with a steady rise to 2395 Per recommendation from cardiology patient was given Lovenox therapeutic dose x1. Cardiology to evaluate in a.m. and make further recommendations. Diabetes mellitus Patient with hyperglycemia on presentation Monitor Accu-Cheks Correction scale insulin ordered. DVT prophylaxis Received therapy dose of Lovenox x1 in the ED. SCDs ordered. Charges/Coding Visit Charges Inpatient E&M: 46070 Init Hosp L3
[2022-12-20] MEDS: Furosemide 40 MG/4 ML Vial IV (23:47)
[2022-12-20 23:53] LABS: Bedside Glucose 113 mg/dL (74-106)
[2022-12-21] VITALS (7 sets, daily range): BP systolic 139–165; BP diastolic 74–86; PULSE 67–74; RESP 17–20; TEMP 36.6–36.8; O2SAT 93–97; BMI 44.2
[2022-12-21] LABS: Troponin-I HS 1957 pg/mL (3.0-78.0)
[2022-12-21 02:16] LABS: Troponin-I HS 2275 pg/mL (3.0-78.0)
[2022-12-21 05:48] LABS: Absolute Lymphocyte Count 0.61 X10^3/uL (0.83-4.51); Absolute Neutrophil Count 5.4 X10^3/uL (2.0-7.7); Basophil# 0.07 X10^3/uL; Eosinophil# 0.52 X10^3/uL; Eosinophils% 7.1 % (0-5); Hematocrit 32.3 % (40-54); Hemoglobin 9.2 g/dL (13.0-16.5); Lymphocyte # 0.61 X10^3/ul (0.83-4.51); Lymphocyte % 8.3 % (19-41); Mean Corp Hgb Conc 28.5 g/dL (32-36); Mean Corpuscular Hgb 27.1 pg (27.0-32.0); Mean Platelet Vol. 10.6 fl (6.2-12.0); Monocyte# 0.74 X10^3/uL; Monocyte% 10.1 % (0-10); NRBC Flagged by Analyzer 0 % (0-5); Neutrophil # 5.35 X10^3/uL (2.7-7.7); Platelet Count 204 K/mm3 (150-450); RBC Distribution Width CV 18.8 % (11.6-14.6); White Blood Count 7.3 K/mm3 (4.4-11.0)
--- NOTE | 2022-12-21 05:55 | ECHOL_ITS ---
Reason For Study: EVAL EF, DYSPNEA/SOB Procedure This was a limited 2D transthoracic echocardiogram. The study was technically difficult. Due to body habitus. Contrast injection was performed. Exam performed portable in patient room. Left Ventricle Normal LV size. Moderate concentric left ventricular hypertrophy. The estimated ejection fraction is 35 %. There is moderate global hypokinesis of the left ventricle. Right Ventricle Normal RV size. Normal systolic function. Atria The left atrium is mildly enlarged. Mitral Valve Bileaflet diffuse mitral valve thickening. Tricuspid Valve Normal tricuspid valve. Aortic Valve Trisinus/trileaflet aortic valve. Mild focal aortic valve calcification. Pulmonic Valve The pulmonic valve is not well visualized. Great Vessels Normal aortic root. Pericardium/Pleural Small pericardial effusion. Medication Diluted definity 4.0ml given slow IV push to enhance endocardial definition. MMode/2D Measurements & Calculations LVIDd: 5.5 cm IVSd: 1.4 cm Ao root diam: 3.0 cm LVIDs: 4.0 cm LVPWd: 1.8 cm RVDd: 3.7 cm FS: 26.2 % LAV(MOD-bp): 86.2 ml LVAd ap4: 48.5 cm2 LVAd ap2: 37.3 cm2 LAV(MOD-bp) Indexed: 33.6 ml/m2 LVLd ap4: 10.7 cm LVLd ap2: 9.7 cm LAV(MOD-sp2): 89.6 ml EDV(MOD-sp4): 185.0 ml EDV(MOD-sp2): 118.7 ml LAV(MOD-sp4): 80.2 ml EDV(sp4-el): 186.8 ml EDV(sp2-el): 121.6 ml LVAs ap4: 33.7 cm2 LVAs ap2: 26.3 cm2 LVLs ap4: 8.8 cm LVLs ap2: 8.0 cm ESV(MOD-sp4): 106.8 ml ESV(MOD-sp2): 69.9 ml ESV(sp4-el): 109.4 ml ESV(sp2-el): 73.0 ml EF(MOD-sp4): 42.3 % EF(MOD-sp2): 41.1 % EF(sp4-el): 41.5 % SV(MOD-sp4): 78.1 ml SV(MOD-sp2): 48.8 ml SV(sp4-el): 77.5 ml LA A4 area: 23.7 cm2 LA dimension(2D): 4.6 cm RA A4 area: 18.7 cm2 ECHO/Echo, Limited Study Interpretation Summary Normal LV size. Moderate concentric left ventricular hypertrophy. The estimated ejection fraction is 35 %. The left atrium is mildly enlarged. There is moderate global hypokinesis of the left ventricle. Small pericardial effusion. Contrast injection was performed. Ordering Physician: Per Feliciano Referring Physician: Joseph Ricks Performed By: Mariam Schwartz RDCS, RVT
[2022-12-21 06:29] LABS: Bedside Glucose 77 mg/dL (74-106)
[2022-12-21 06:42] LABS: Anion Gap 5 (5-15); BUN 89 mg/dL (7-18); BUN/Creat Ratio 19.6 RATIO (10-20); Calcium,Total 8.1 mg/dL (8.5-10.1); Chloride 117 mmol/L (98-107); Cholesterol 139 mg/dL (200); Creatinine, Serum 4.53 mg/dL (0.70-1.30); EST Glomerular Filtration Rate 14 mL/min (>60); Est Glom Filt Rate - Afr Amer 18 mL/min (>60); Estimated Creatinine Clearance 19.85 ml/min; Glucose 87 mg/dL (74-106); High Density Lipoprotein 32 mg/dL; Potassium 4.4 mmol/L (3.5-5.1); Sodium Level 144 mmol/L (136-145); Triglycerides 117 mg/dL; Troponin-I HS 2395 pg/mL (3.0-78.0); Very Low Density Lipoprotein 23 mg/dL (5-40)
--- NOTE | 2022-12-21 07:43 | CON.PCM.CA_ITS ---
Assessment & Plan Assessment/Plan (1) History of non-ST elevation myocardial infarction (NSTEMI): PLAN: He presents with shortness of breath and is noted to have elevated cardiac enzymes suggestive of a non-ST elevation myocardial infarction. He says that he has been compliant with his medications. My recommendation at this time were to obtain a noninvasive echocardiogram optimize his medical therapy and consider pharmacologic myocardial perfusion stress test. Depending on those results of targeted therapy will be instituted. This is because he is at high risk of further renal dysfunction with dye load. We will also recommend that we obtain a nephrology consult. (2) Acute on chronic heart failure with reduced ejection fraction and diastolic dysfunction: PLAN: He does have evidence of heart failure with reduced ejection fraction. It would be prudent to repeat his echocardiogram to reassess his ejection fraction. Depending on those results further recommendations will be made. (3) Hypertension: PLAN: His blood pressure was noted to be elevated on admission. It is possible that some of his enzyme elevation is secondary to demand ischemia. We will optimize his therapy for his hypertension. (4) Chronic kidney disease, stage 3a: PLAN: We will recommend nephrology input in case he needs further cardiac catheterization. (5) Ischemic cardiomyopathy: PLAN: He does have evidence of ischemic cardiomyopathy with an estimated ejection fraction of 35% on last admission. This will be reevaluated. And depending on the results further recommendations made Thank you for allowing me to participate in the care of your patient. Please don't hesitate to call if any issues arise. HPI Consult Data Date of Consult: 12/21/22 HPI Narrative HPI Narrative: YOSEPH PERSAUD, is a 52 M who presents the emergency room with complaints of shortness of breath mild chest heaviness and patient was noted to be hypoxic. He has an extensive cardiac history of coronary artery disease with non-ST myocardial infarction in 2013 and underwent stenting to his circumflex. In 2018 he had a heart catheterization for hospitalization for CHF. Heart catheterization revealed significant LAD in-stent restenosis, he had this this vessel stented in addition to his diagonal 1. Echocardiogram demonstrated preserved ejection fraction of 60%. 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 In June 2021 he was hospitalized for concerns over a CVA, head and neck CT was negative he was also noted to have a wound on his left heel, this was debrided he was discharged to TCU. He was admitted to [facility] on 04/07/2022 for syncope. He was positive for influenza A, he was admitted for CHF, Hypoxia, NSTEMI and Acute on CKD. Cardiology was consulted, it was felt that the NSTEMI was a type II event. He did undergo an echo which demonstrated and EF of 45%, severe LVH. He did undergo a stress test which demonstrated mild eliud-infarct related myocardial ischemia in the mid in feroseptal segments. Medical management was recommended. He was admitted to the hospital again in August 2022 with a non-ST elevation myocardial infarction his ejection fraction was noted to be reduced at approximately 35% with chronic renal dysfunction. He underwent a cardiac catheterization which demonstrated high-grade lesions in his right coronary artery for which she underwent PCI and stenting with a drug-eluting stent in his LAD also had an in-stent stenosis for which she underwent placement of a drug- eluting stent. This stent in his diagonal vessel as well as his circumflex artery were noted to be patent with mild distal stenosis. He apparently has been compliant with his medication. He presents this time with shortness of breath and discomfort again. [facility] Medical History (Updated 12/21/22 @ 07:[address] Barry Ken MD) Anemia in chronic illness Atherosclerotic heart disease of [place] coronary artery without angina pectoris Carotid artery stenosis Chronic diastolic (congestive) heart failure Chronic kidney disease Chronic kidney disease Chronic kidney disease, stage 3a Coronary artery disease Depression Diabetes mellitus Diabetes mellitus with diabetic polyneuropathy Diabetes mellitus, type II Diabetic infection of left foot Edema, peripheral Essential (primary) hypertension History of non-ST elevation myocardial infarction (NSTEMI) (08/25/22) History of stress test Hyperlipidemia Hyperlipidemia Hypertension Hypertension Hypomagnesemia Infected sebaceous cyst Insulin dependent diabetes mellitus Ischemic cardiomyopathy (06/2013) Left ventricular systolic dysfunction (LVSD) Non-pressure 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 of bone Non-pressure chronic ulcer of other part of left foot with fat layer exposed Non-pressure chronic ulcer of other part of left foot with fat layer exposed Obesity Other acute osteomyelitis, right ankle and foot Paresthesias Partial nontraumatic amputation of right foot Pneumonia due to COVID-19 virus (03/14/20) Postoperative cardiac arrest following non-cardiac surgery Type 2 diabetes mellitus with diabetic neuropathy, unspecified Type 2 diabetes mellitus with diabetic polyneuropathy Type 2 diabetes mellitus with foot ulcer Ulcer of right foot with fat layer exposed Venous insufficiency Venous insufficiency of both lower extremities Home Medications aspirin 81 mg chewable tablet 81 mg PO DAILY@0800 heart 09/28/14 [History Last Taken 12/20/18] atorvastatin 80 mg tablet 80 mg PO QHS cholesterol 30 days #30 tabs 06/21/21 [Rx Last Taken Unknown] clopidogrel 75 mg tablet 75 mg PO DAILY Blood Thinner 30 days #30 tabs 06/21/21 [Rx Last Taken Unknown] insulin glargine 100 unit/mL (3 mL) subcutaneous pen (Lantus Solostar U-100 Insulin) 20 unit (0.2 mL) subcut BID Diabetes 30 days #12 mL 06/21/21 [Rx Last Taken Unknown] isosorbide mononitrate 60 mg tablet,extended release 24 hr 60 mg PO DAILY Heart 30 days #30 tabs 01/12/22 [Rx Last Taken Unknown] ezetimibe 10 mg tablet 10 mg PO DAILY cholesterol 04/07/22 [History Last Taken Unknown] carvedilol 25 mg tablet 25 mg PO BID #180 tabs 05/25/22 [Rx Last Taken Unknown] amlodipine 5 mg tablet 5 mg PO DAILY . 06/05/22 [History Last Taken Unknown] ferrous sulfate 325 mg (65 mg iron) tablet (FeroSul) 325 mg PO BID #60 tabs 06/08/22 [Rx Last Taken Unknown] doxycycline monohydrate 100 mg capsule 100 mg PO BID #84 caps 08/29/22 [Rx Last Taken Unknown] Allergy/AdvReac Type Severity Reaction Status Date / Time lisinopril AdvReac Intermediate Cough Verified 08/24/22 17:08 losartan AdvReac Intermediate cough Verified 08/24/22 17:08 Family History Father , Age 57 from [place] Myocardial infarction CAD (coronary artery disease) Sudden cardiac Mother Sick sinus syndrome Sister Diabetes Other History of coronary artery stent placement History of non-ST elevation myocardial infarction (NSTEMI) Surgical History H/O cardiac catheterization History of coronary artery stent placement (08/28/22) Social History household members: none Smoking Status: Never smoker alcohol intake: current alcohol intake frequency: holidays/special occasions only substance use type: does not use caffeine: Yes Type: carbonated beverages Number of servings: 2 ROS Constitutional Constitutional: Denies fever(s) or weight loss Eyes Eyes: Reports systems reviewed and no addt'l complaints, except as documented ENT HEENT: Reports systems reviewed and no addt'l complaints, except as documented Cardiovascular Cardiovascular: Reports dyspnea at rest and dyspnea on exertion; Denies chest pain at rest, chest pain with activity, edema, palpitations or paroxysmal nocturnal dyspnea Respiratory/Chest Respiratory/Chest: Reports dyspnea on exertion, shortness of breath at rest and shortness of breath with exertion; Denies productive cough Gastrointestinal Gastrointestinal: Denies change in bowel habits, nausea, vomiting or weight changes Genitourinary Genitourinary: Denies difficulty urinating Musculoskeletal Musculoskeletal: Denies joint stiffness or muscle weakness Integumentary Integumentary: Denies lesions Neurologic Neurologic: Denies dizziness or syncope Psychiatric Psychiatric: Denies anxiety Endocrine Endocrinology: Denies excessive sweating or fatigue Hematologic/Lymphatic Hematologic/Lymphatic: Denies anemia Allergic/Immunologic Allergic/Immunologic: Denies seasonal rhinorrhea Physical Exam Const alert, oriented x3 and no apparent distress General Appearance: cooperative HEENT hearing grossly normal bilaterally Head and Scalp: atraumatic Eyes EOMs intact bilaterally Neck General: normal visual inspection Chest inspection of chest normal and palpation of chest normal Resp normal respiratory effort Auscultation: clear to auscultation bilaterally Cardio regular rate, regular rhythm, S1 normal heart sound and S2 normal heart sound Jugular Venous Distention: JVD GI normal to inspection, nondistended, normoactive bowel sounds Extremity normal capillary refill and no pedal edema Peripheral Pulses: Yes pulses 2+ throughout and femoral pulses present Skin no rashes or lesions noted Neuro oriented x3 and CN's II-XII intact bilaterally Psych Appearance: grossly normal and appropriate Risk Stratification Risk Stratification Applicable: Yes Age >/= 65: No >/= 3 CAD Risk Factors (HTN, HLD, DM, family hx of CAD, or current smoker): Yes Aspirin Use in the Past 7 Days: Yes Severe Angina (>/= episodes in 24 hours): No EKG ST Changes >/= 0.5mm: No Positive Cardiac Marker: Yes CRISTI Risk Stratification Score: 3 CRISTI % Risk: 13% Risk Objective Data Vital Signs: Vital Signs Temp Pulse Resp BP Pulse Ox O2 Del Method O2 Flow Rate 97.8 F 70 20 H 153/83 H 96 Nasal Cannula 4 12/21/22 04:12/21/22 04:12/21/22 04:12/21/22 04:12/21/22 04:12/21/22 04:12/21/22 04:29 Oxygen Flow Rate (L/min) 4 Oxygen Delivery Method Nasal Cannula Weight: 317 lb 7.45 oz Body Mass Index (BMI) 44.2 Intake & Output: Intake and Output for Last 24 Hours 12/19/22 12/20/22 12/21/22 23:59 23:59 23:59 Output Total 550 / 550 Balance -550 / -550 Lab / Micro Data 12/21/22 05:16 12/21/22 05:16 Labs: Laboratory Results - last 24 hr 12/20/22 18:01: WBC 8.3, RBC 3.47 L, Hgb 9.7 L, Hct 32.4 L, MCV 93.4, MCH 28.0, MCHC 29.9 L, RDW Std Deviation 63.8 H, RDW Coeff of Rajendra 18.8 H, Plt Count 216, MPV 10.5, Immature Gran % (Auto) 0.400, Neut % (Auto) 81.1 H, Lymph % (Auto) 5.6 L, [place] % (Auto) 7.6, Eos % (Auto) 4.6, Baso % (Auto) 0.7, Absolute Neuts (auto) 6.7, Absolute Lymphs (auto) 0.46 L, Nucleated RBC % 0, Differential Comment SCANNED, Sodium 142, Potassium 4.5, Chloride 113 H, Carbon Dioxide 24.0, Anion Gap 5, BUN 83 H, Creatinine 4.60 H, Estim Creat Clear Calc 19.55, Est GFR (MDRD) Af Amer 17 L, Est GFR (MDRD) Non-Af 14 L, BUN/Creatinine Ratio 18.0, Glucose 161 H, Calcium 8.4 L, Troponin I High Sens 711 H*, B-Natriuretic Peptide 566.5 H 12/20/22 23:10: Troponin I High Sens 1957 H* 12/20/22 23:36: POC Glucose 113 H 12/21/22 01:30: Troponin I High Sens 2275 H* 12/21/22 05:16: WBC 7.3, RBC 3.40 L, Hgb 9.2 L, Hct 32.3 L, MCV 95.0 H, MCH 27.1, MCHC 28.5 L, RDW Std Deviation 64.0 H, RDW Coeff of Rajendra 18.8 H, Plt Count 204, MPV 10.6, Immature Gran % (Auto) 0.500, Neut % (Auto) 73.0 H, Lymph % (Auto) 8.3 L, [place] % (Auto) 10.1 H, Eos % (Auto) 7.1 H, Baso % (Auto) 1.0, Absolute Neuts (auto) 5.4, Absolute Lymphs (auto) 0.61 L, Nucleated RBC % 0, Sodium 144, Potassium 4.4, Chloride 117 H, Carbon Dioxide 22.0, Anion Gap 5, BUN 89 H, Creatinine 4.53 H, Estim Creat Clear Calc 19.85, Est GFR (MDRD) Af Amer 18 L, Est GFR (MDRD) Non-Af 14 L, BUN/Creatinine Ratio 19.6, Glucose 87, Calcium 8.1 L, Troponin I High Sens 2395 H*, Triglycerides 117, Cholesterol 139, LDL Cholesterol 84, VLDL Cholesterol 23, HDL Cholesterol 32 L 12/21/22 05:29: POC Glucose 77 Cardiology Labs/Tests 12/20/22 18:01: WBC 8.3, RBC 3.47 L, Hgb 9.7 L, Hct 32.4 L, MCV 93.4, MCH 28.0, MCHC 29.9 L, Plt Count 216, MPV 10.5, Immature Gran % (Auto) 0.400, Neut % (Auto) 81.1 H, Lymph % (Auto) 5.6 L, [place] % (Auto) 7.6, Eos % (Auto) 4.6, Baso % (Auto) 0.7, Absolute Neuts (auto) 6.7, Nucleated RBC % 0, Sodium 142, Potassium 4.5, Chloride 113 H, Carbon Dioxide 24.0, Anion Gap 5, BUN 83 H, Creatinine 4.60 H, Est GFR (MDRD) Af Amer 17 L, Est GFR (MDRD) Non-Af 14 L, BUN/Creatinine Ratio 18.0, Glucose 161 H, Calcium 8.4 L, B-Natriuretic Peptide 566.5 H 12/21/22 05:16: WBC 7.3, RBC 3.40 L, Hgb 9.2 L, Hct 32.3 L, MCV 95.0 H, MCH 27.1, MCHC 28.5 L, Plt Count 204, MPV 10.6, Immature Gran % (Auto) 0.500, Neut % (Auto) 73.0 H, Lymph % (Auto) 8.3 L, [place] % (Auto) 10.1 H, Eos % (Auto) 7.1 H, Baso % (Auto) 1.0, Absolute Neuts (auto) 5.4, Nucleated RBC % 0, Sodium 144, Potassium 4.4, Chloride 117 H, Carbon Dioxide 22.0, Anion Gap 5, BUN 89 H, Crea tinine 4.53 H, Est GFR (MDRD) Af Amer 18 L, Est GFR (MDRD) Non-Af 14 L, BUN/Creatinine Ratio 19.6, Glucose 87, Calcium 8.1 L, Triglycerides 117, Cholesterol 139, LDL Cholesterol 84, VLDL Cholesterol 23, HDL Cholesterol 32 L Rhythm: EKG: ECHO: Stress Test: Cardiac Cath: PCI: CT Surgery: Holter monitor: EPS: PPM: CXR: Chest CT Scan: Radiography Diagnostic Testing: Radiology Impression Chest X-Ray 12/20/22 18:12 IMPRESSION: Cardiomegaly. Electronically Signed: Kolby Veronica DO at 18:28 EDT Reading Location ID and State: [facility] / [place] Tel [phone], Service support ,
--- NOTE | 2022-12-21 07:51 | PCM.PN.HOSP ---
Subjective Subjective Feels well. No chest pain. Objective Data Objective Data Vital Signs: Vital Signs Temp Pulse Resp BP Pulse Ox O2 Del Method O2 Flow Rate 36.6 C 70 20 H 153/83 H 96 Nasal Cannula 4 12/21/22 04:12/21/22 04:12/21/22 04:12/21/22 04:12/21/22 04:12/21/22 04:12/21/22 04:29 Oxygen Flow Rate (L/min) 4 Oxygen Delivery Method Nasal Cannula Weight: 144 kg Body Mass Index (BMI) 44.2 Intake & Output: Intake and Output for Last 24 Hours 12/19/22 12/20/22 12/21/22 23:59 23:59 23:59 Output Total 550 / 550 Balance -550 / -550 Lab / Micro Data 12/21/22 05:16 12/21/22 05:16 Labs: Laboratory Results - last 24 hr 12/20/22 18:01: WBC 8.3, RBC 3.47 L, Hgb 9.7 L, Hct 32.4 L, MCV 93.4, MCH 28.0, MCHC 29.9 L, RDW Std Deviation 63.8 H, RDW Coeff of Rajendra 18.8 H, Plt Count 216, MPV 10.5, Immature Gran % (Auto) 0.400, Neut % (Auto) 81.1 H, Lymph % (Auto) 5.6 L, [place] % (Auto) 7.6, Eos % (Auto) 4.6, Baso % (Auto) 0.7, Absolute Neuts (auto) 6.7, Absolute Lymphs (auto) 0.46 L, Nucleated RBC % 0, Differential Comment SCANNED, Sodium 142, Potassium 4.5, Chloride 113 H, Carbon Dioxide 24.0, Anion Gap 5, BUN 83 H, Creatinine 4.60 H, Estim Creat Clear Calc 19.55, Est GFR (MDRD) Af Amer 17 L, Est GFR (MDRD) Non-Af 14 L, BUN/Creatinine Ratio 18.0, Glucose 161 H, Calcium 8.4 L, Troponin I High Sens 711 H*, B-Natriuretic Peptide 566.5 H 12/20/22 23:10: Troponin I High Sens 1957 H* 12/20/22 23:36: POC Glucose 113 H 12/21/22 01:30: Troponin I High Sens 2275 H* 12/21/22 05:16: WBC 7.3, RBC 3.40 L, Hgb 9.2 L, Hct 32.3 L, MCV 95.0 H, MCH 27.1, MCHC 28.5 L, RDW Std Deviation 64.0 H, RDW Coeff of Rajendra 18.8 H, Plt Count 204, MPV 10.6, Immature Gran % (Auto) 0.500, Neut % (Auto) 73.0 H, Lymph % (Auto) 8.3 L, [place] % (Auto) 10.1 H, Eos % (Auto) 7.1 H, Baso % (Auto) 1.0, Absolute Neuts (auto) 5.4, Absolute Lymphs (auto) 0.61 L, Nucleated RBC % 0, Sodium 144, Potassium 4.4, Chloride 117 H, Carbon Dioxide 22.0, Anion Gap 5, BUN 89 H, Creatinine 4.53 H, Estim Creat Clear Calc 19.85, Est GFR (MDRD) Af Amer 18 L, Est GFR (MDRD) Non-Af 14 L, BUN/Creatinine Ratio 19.6, Glucose 87, Calcium 8.1 L, Troponin I High Sens 2395 H*, Triglycerides 117, Cholesterol 139, LDL Cholesterol 84, VLDL Cholesterol 23, HDL Cholesterol 32 L 12/21/22 05:29: POC Glucose 77 Radiography Diagnostic Testing: Radiology Impression Chest X-Ray 12/20/22 18:12 IMPRESSION: Cardiomegaly. Electronically Signed: Kolyb Veronica DO at 18:28 EDT Reading Location ID and State: [facility] / [place] Tel [phone], Service support , Physical Exam Const alert and no apparent distress HEENT head/scalp atraumatic and moist oral mucous membranes Resp normal respiratory effort, no retractions, no use of accessory muscles and clear to auscultation bilaterally Cardio regular rate, regular rhythm, S1 normal heart sound and S2 normal heart sound GI normal to inspection, nondistended, normoactive bowel sounds, soft to palpation, non-tender and non-distended Extremity General Extremity: edema bilateral lower extremity Details: moderate Assessment & Plan Assessment/Plan (1) NSTEMI, initial episode of care: PLAN: NSTEMI Cardiology on consult Echo shows an EF 35%. LAE. Moderate global hypokinesis of the LV. Small pericardial effusion. Continue ASA, atorvastatin, clopidogrel, carvedilol, isosorbide Received a 1x dose of enoxaparin Given CKD, start heparin gtt (2) Acute on chronic heart failure with reduced ejection fraction and diastolic dysfunction: PLAN: Acute on chronic HFrEF EF 35-40% from echo on 08/26/22 Received 1x dose of furosemide Not a candidate for ACEi/ARB given CKD (3) CKD stage 4 due to type 2 diabetes mellitus: PLAN: CKD IV Overall worse from November Consult nephrology No need for [facility], but pt aware it may be required and is agreeable when that time comes. PLAN: Plan Chronic conditions: Diabetes mellitus type II,Patient with hyperglycemia on presentation. Correction scale insulin ordered. HTN: stable. amlodipine. HLP: statin. ezetimibe. anemia of chronic disease: stable. humeral lytic lesion: had BMBx on 12/20. DVT prophylaxis: anticoagulated. Charges/Coding Visit Charges Inpatient E&M: 65466 Subs Hosp L2
[2022-12-21 10:03] LABS: International Normalized Ratio 1.2; Prothrombin Time (Protime)PT. 14.9 SECONDS (11.7-14.9)
[2022-12-21 10:04] LABS: Partial Thromboplast Time 35.5 Seconds (24.1-36.2)
[2022-12-21] MEDS: Clopidogrel Bisulfate 75 MG Tablet PO (11:10)
--- NOTE | 2022-12-21 11:10 | CASEMGMT ---
RN CM manager asset CM Face to Face with patient for initial transition planning/care coordination assessment. Patient's sister, Amalia is also at the bedside, per patient's permission. RN CM introduced self and role at [facility]. Patient lying in bed, alert and oriented. Patient willing to participate in assessment and is able to answer all questions appropriately.? Care providers, pharmacy, and demographics verified. Patient wishes to discharge home, denies need for home health at this time.? Patient states he has no further needs or concerns at this time. CM to follow for discharge planning needs that may arise. PCP:Rambo Specialists:Jesus Manuel (Cardiology), Raffy (Nephrology), Vito (Ophthalmology), Phu ([place]) Preferred Pharmacy: [facility] Retail Insurance:[employer]. Patient has questions about assistance applying for Medicaid. CYNTHIA Stoner informed Prescription Benefit:?Yes Living Will/HPOA:No/No: Patient reports he would like to establish a Living Will (LW) and HCPOA during this visit if possible, CYNTHIA Stoner informed. LNOK:SonJuan A Living Arrangements:Lives at home with his son in a 1 sotry home, FFSU (except for laundry which is in the basement), 2 steps w/railing to enter and 14 steps w/railing to basement. Prior to this admission, patient irene is independent in all ADLs and IADLs (except for laundry, which his son does). Patient denies difficulty with ambulating steps. Transportation: Self and son DME:Raised toilet seat, grad bar in shower, rollator, and continuous monitor and supplies. Denies need for additional DME at discharge. If patient were to need supplemental oxygen, he prefers to use [employer]. HHC: Denies previous SNF. Reports previous HHC but does not recall name of agency. Disposition Plan: Patient would like to discharge home with family support and follow-up plans in place. RADHA KISER will monitor for oxygen needs and continue to plan for a safe discharge. Lucinda ARVIZU, RN, CM
[2022-12-21] MEDS: amLODIPine 5 MG Tablet PO (11:11)
[2022-12-21] MEDS: Isosorbide Mononitrate 60 MG Tablet PO (11:11)
[2022-12-21] MEDS: Ezetimibe 10 MG Tablet PO (11:11)
[2022-12-21] MEDS: Aspirin E.C. 81 MG Tablet PO (11:11)
[2022-12-21] MEDS: Carvedilol 25 MG Tablet PO ×2 (11:11→18:26)
--- NOTE | 2022-12-21 11:13 | CON.PCM.RE_ITS ---
Assessment & Plan Assessment/Plan (1) Elevated troponin: (2) Acute on chronic heart failure with reduced ejection fraction and diastolic dysfunction: (3) CORA (acute kidney injury): (4) CKD stage 4 due to type 2 diabetes mellitus: PLAN: Plan This is a 52 M with PMH significant for mellitus type II, hypertension, CKD stage 4 secondary to diabetes with baseline creatinine around 4 mg/dL followed by Dr. 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 Heard who presented emergency room yesterday with complaints of shortness of breath a nd admitted for further evaluation and treatment. Noted to have detectable troponin concerning for non-STEMI, started on heparin gtt and cardiology consulted. Nephrology consulted as patient has history of CKD stage IV. He has been followed by Dr. Akbar. Patient last seen about 2 weeks ago in the office, Creatinine was 3.97 mg/dL. Yesterday serum creatinine 4.60, potassium and bicarbonate normal. Today creatinine 4.53 mg/dL, potassium and bicarbonate normal. Patient is nonoliguric. CXR reviewed which did not show any consolidation or edema however on exam patient is mildly hypervolemic therefore we will give another dose of Lasix 40 mg IV today and monitor for response. CORA vs CKD, possibly acute component from cardiorenal syndrome physiology vs progression of CKD. At this time there is no acute indication for FRAME EXPANDER however it was explained in detail today with patient and his sister (who is at bedside) that patient is CKD stage 4, close to stage 5 and that if renal function worsens patient may need hemodialysis. It was also discussed with patient and sister that should patient undergo heart catheterization there is a risk that contrast exposure may worsen kidney function and he may require hemodialysis especially given that patient is CKD stage IV with baseline EGFR around 17 mL/min as of first part of November 2022. Patient and his sister both voiced understanding, questions were answered (their brother required CRRT and iHD but earlier this year and their sister had kidney transplant some years ago). Patient is in agreement for starting hemodialysis when needed. We will continue to monitor renal function closely along with you. Current blood pressures acceptable on amlodipine, carvedilol, Imdur. Lasix ordered today. History of Anemia of chronic disease and detectable monoclonal antibody, patient referred to Dr. Heard; work-up is currently in progress. Patient did undergo skeletal survey which showed single lytic lesion right proximal humerus. Patient had bone marrow biopsy 12/20/2022. Hemoglobin 9.2. Thank you for allowing us to participate in the care of Mr. Persaud, further orders forthcoming as hospitalization evolves. HPI Consult Data Date of Consult: 12/21/22 HPI Narrative HPI Narrative: YOSEPH PERSAUD, is a 52 M with PMH significant for mellitus type II, hypertension, CKD stage 4 secondary to diabetes with baseline creatinine around 4 mg/dL followed by Dr. 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 Heard who presented to emergency room yesterday with complaints of shortness of breath. Patient had undergone bone marrow biopsy yesterday, went home but afterwards felt short of breath therefore presented to the emergency room. Work-up in the emergency room showed elevated cardiac enzymes suggestive of non-STEMI, patient admitted for further evaluation and treatment. Nephrology consulted as patient does have history of CKD stage IV. Serum creatinine yesterday 4.60. Patient did receive furosemide 40 mg IV yesterday. Today creatinine 4.53 mg/dL. Patient denies any recent nausea, vomiting, diarrhea. Patient reports he thinks he had missed couple doses of Lasix. He tries to follow low sodium diet and restrict fluids. Patient's sister is at bedside. No recent NSAIDs. [facility] Medical History (Updated 12/21/22 @ 11:26 by Camryn Yanez NP-Carol) CORA (acute kidney injury) Anemia in chronic illness Atherosclerotic heart disease of [place] coronary artery without angina pectoris Carotid artery stenosis Chronic diastolic (congestive) heart failure Chronic kidney disease Chronic kidney disease Chronic kidney disease, stage 3a Coronary artery disease Depression Diabetes mellitus Diabetes mellitus with diabetic polyneuropathy Diabetes mellitus, type II Diabetic infection of left foot Edema, peripheral Essential (primary) hypertension History of non-ST elevation myocardial infarction (NSTEMI) (08/25/22) History of stress test Hyperlipidemia Hyperlipidemia Hypertension Hypertension Hypomagnesemia Infected sebaceous cyst Insulin dependent diabetes mellitus Ischemic cardiomyopathy (06/2013) Left ventricular systolic dysfunction (LVSD) Non-pressure 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 of bone Non-pressure chronic ulcer of other part of left foot with fat layer exposed Non-pressure chronic ulcer of other part of left foot with fat layer exposed Obesity Other acute osteomyelitis, right ankle and foot Paresthesias Partial nontraumatic amputation of right foot Pneumonia due to COVID-19 virus (03/14/20) Postoperative cardiac arrest following non-cardiac surgery Type 2 diabetes mellitus with diabetic neuropathy, unspecified Type 2 diabetes mellitus with diabetic polyneuropathy Type 2 diabetes mellitus with foot ulcer Ulcer of right foot with fat layer exposed Venous insufficiency Venous insufficiency of both lower extremities Home Medications aspirin 81 mg chewable tablet 81 mg PO DAILY@0800 heart 09/28/14 [History Last Taken 12/20/18] atorvastatin 80 mg tablet 80 mg PO QHS cholesterol 30 days #30 tabs 06/21/21 [Rx Last Taken Unknown] clopidogrel 75 mg tablet 75 mg PO DAILY Blood Thinner 30 days #30 tabs 06/21/21 [Rx Last Taken Unknown] insulin glargine 100 unit/mL (3 mL) subcutaneous pen (Lantus Solostar U-100 Insulin) 20 unit (0.2 mL) subcut BID Diabetes 30 days #12 mL 06/21/21 [Rx Last Taken Unknown] isosorbide mononitrate 60 mg tablet,extended release 24 hr 60 mg PO DAILY Heart 30 days #30 tabs 01/12/22 [Rx Last Taken Unknown] ezetimibe 10 mg tablet 10 mg PO DAILY cholesterol 04/07/22 [History Last Taken Unknown] carvedilol 25 mg tablet 25 mg PO BID #180 tabs 05/25/22 [Rx Last Taken Unknown] amlodipine 5 mg tablet 5 mg PO DAILY . 06/05/22 [History Last Taken Unknown] ferrous sulfate 325 mg (65 mg iron) tablet (FeroSul) 325 mg PO BID #60 tabs 06/08/22 [Rx Last Taken Unknown] doxycycline monohydrate 100 mg capsule 100 mg PO BID #84 caps 08/29/22 [Rx Last Taken Unknown] Allergy/AdvReac Type Severity Reaction Status Date / Time lisinopril AdvReac Intermediate Cough Verified 08/24/22 17:08 losartan AdvReac Intermediate cough Verified 08/24/22 17:08 Family History Father , Age 57 from [place] Myocardial infarction CAD (coronary artery disease) Sudden cardiac Mother Sick sinus syndrome Sister Diabetes Other History of coronary artery stent placement History of non-ST elevation myocardial infarction (NSTEMI) Surgical History H/O cardiac catheterization History of coronary artery stent placement (08/28/22) Social History household members: none Smoking Status: Never smoker alcohol intake: current alcohol intake frequency: holidays/special occasions only substance use type: does not use caffeine: Yes Type: carbonated beverages Number of servings: 2 ROS ROS Narrative As in HPI and past medical history Physical Exam Narrative Alert and oriented x3, no apparent distress S1, S2, RRR Diminished breath sounds with inspiratory and expiratory wheezing Abdomen rounded, soft, nontender Pitting edema noted bilateral lower legs Lab / Micro Data 12/21/22 05:16 12/21/22 05:16 Labs: Laboratory Results - last 24 hr 12/20/22 18:01: WBC 8.3, RBC 3.47 L, Hgb 9.7 L, Hct 32.4 L, MCV 93.4, MCH 28.0, MCHC 29.9 L, RDW Std Deviation 63.8 H, RDW Coeff of Rajendra 18.8 H, Plt Count 216, MPV 10.5, Immature Gran % (Auto) 0.400, Neut % (Auto) 81.1 H, Lymph % (Auto) 5.6 L, [place] % (Auto) 7.6, Eos % (Auto) 4.6, Baso % (Auto) 0.7, Absolute Neuts (auto) 6.7, Absolute Lymphs (auto) 0.46 L, Nucleated RBC % 0, Differential Comment SCANNED, Sodium 142, Potassium 4.5, Chloride 113 H, Carbon Dioxide 24.0, Anion Gap 5, BUN 83 H, Creatinine 4.60 H, Estim Creat Clear Calc 19.55, Est GFR (MDRD) Af Amer 17 L, Est GFR (MDRD) Non-Af 14 L, BUN/Creatinine Ratio 18.0, Glucose 161 H, Calcium 8.4 L, Troponin I High Sens 711 H*, B-Natriuretic Peptide 566.5 H 12/20/22 23:10: Troponin I High Sens 1957 H* 12/20/22 23:36: POC Glucose 113 H 12/21/22 01:30: Troponin I High Sens 2275 H* 12/21/22 05:16: WBC 7.3, RBC 3.40 L, Hgb 9.2 L, Hct 32.3 L, MCV 95.0 H, MCH 27.1, MCHC 28.5 L, RDW Std Deviation 64.0 H, RDW Coeff of Rajendra 18.8 H, Plt Count 204, MPV 10.6, Immature Gran % (Auto) 0.500, Neut % (Auto) 73.0 H, Lymph % (Auto) 8.3 L, [place] % (Auto) 10.1 H, Eos % (Auto) 7.1 H, Baso % (Auto) 1.0, Absolute Neuts (auto) 5.4, Absolute Lymphs (auto) 0.61 L, Nucleated RBC % 0, Sodium 144, Potassium 4.4, Chloride 117 H, Carbon Dioxide 22.0, Anion Gap 5, BUN 89 H, Creatinine 4.53 H, Estim Creat Clear Calc 19.85, Est GFR (MDRD) Af Amer 18 L, Est GFR (MDRD) Non-Af 14 L, BUN/Creatinine Ratio 19.6, Glucose 87, Calcium 8.1 L, Troponin I High Sens 2395 H*, B-Natriuretic Peptide 726.0 H, Triglycerides 117, Cholesterol 139, LDL Cholesterol 84, VLDL Cholesterol 23, HDL Cholesterol 32 L 12/21/22 05:29: POC Glucose 77 12/21/22 09:38: PT 14.9, INR 1.2, APTT 35.5 Radiology Impression Chest X-Ray 12/20/22 18:12 IMPRESSION: Cardiomegaly. Electronically Signed: Kolby Veronica DO at 18:28 EDT Reading Location ID and State: [facility] / [place] Tel [phone], Service support , Echocardiogram 12/21/22 05:55 Interpretation Summary Normal LV size. Moderate concentric left ventricular hypertrophy. The estimated ejection fraction is 35 %. The left atrium is mildly enlarged. There is moderate global hypokinesis of the left ventricle. Small pericardial effusion. Contrast injection was performed. Ordering Physician: Per Feliciano Referring Physician: Joseph Ricks Performed By: Mariam Schwartz, KAMINI, RVT
[2022-12-21] MEDS: HEPARIN/D5w 25,000 UNITS 25,000 UNITS/250 ML IV.SOLN. 10 UNITS CONT INF (11:15)
[2022-12-21] MEDS: Heparin Injection (Vial) 5,000 UNIT/ML VIAL 4000 UNIT IV (11:15)
[2022-12-21] MEDS: Furosemide 40 MG/4 ML Vial IV (12:49)
[2022-12-21 13:11] LABS: Bedside Glucose 65 mg/dL (74-106)
[2022-12-21 17:15] LABS: Bedside Glucose 112 mg/dL (74-106)
[2022-12-21 17:54] LABS: Bacteria 0 SEEN /hpf (None Seen); Mucous, Urine 0 SEEN /hpf (<or=2+); Red Blood Cells-Urine 0 SEEN /hpf (0-5); Squamous Epithelial Cells - UA 0 SEEN /hpf (0-5); White Blood Cells 0 SEEN /hpf (0-5)
[2022-12-21 18:21] LABS: Partial Thromboplast Time 48.5 Seconds (24.1-36.2)
[2022-12-21 18:22] LABS: Color, Urine Yellow (Yellow); Glucose, Dipstick Normal (Normal); Ketone-Dipstick Negative (Negative); Leukocyte Esterase-Dipstick Negative /ul (Negative); Nitrite-Dipstick Negative (Negative); Occult Blood-Urine 10 /ul (Negative); Protein-Dipstick 100 mg/dl (Negative); Specific Gravity, Urine 1.015 (1.002-1.030); Urine Bilirubin Dipstick Negative (Negative); Urine Clarity Clear (Clear); Urine Urobilinogen Normal (Normal)
[2022-12-21] MEDS: 0.9% Saline Lock 10 ML Syringe IV (18:26)
[2022-12-21 19:15] LABS: Amorphous Sediment 2+
[2022-12-21] MEDS: Atorvastatin Calcium 80 MG Tablet PO (20:04)
[2022-12-21 20:32] LABS: Bedside Glucose 166 mg/dL (74-106)
[2022-12-22 00:55] LABS: Partial Thromboplast Time 47.6 Seconds (24.1-36.2)
[2022-12-22 04:00] VITALS: BP 155/80; PULSE 76; RESP 18; TEMP 36.6; O2SAT 94
[2022-12-22 06:00] VITALS: BMI 43.7
[2022-12-22 06:17] LABS: Bedside Glucose 139 mg/dL (74-106)
[2022-12-22 06:52] LABS: Absolute Lymphocyte Count 0.44 X10^3/uL (0.83-4.51); Absolute Neutrophil Count 4.4 X10^3/uL (2.0-7.7); Basophil# 0.04 X10^3/uL; Basophil% 0.6 % (0-1); Eosinophil# 0.49 X10^3/uL; Hematocrit 31.7 % (40-54); Hemoglobin 9.1 g/dL (13.0-16.5); Lymphocyte # 0.44 X10^3/ul (0.83-4.51); Lymphocyte % 7.1 % (19-41); Mean Corp Hgb Conc 28.7 g/dL (32-36); Mean Corpuscular Hgb 27.2 pg (27.0-32.0); Mean Corpuscular Volume 94.6 fL (80-94); Mean Platelet Vol. 9.9 fl (6.2-12.0); Monocyte# 0.75 X10^3/uL; Monocyte% 12.2 % (0-10); NRBC Flagged by Analyzer 0 % (0-5); Neutrophil # 4.41 X10^3/uL (2.7-7.7); Neutrophil % 71.6 % (47-70); POSITIVE DIFFERENTIAL YES; Platelet Count 201 K/mm3 (150-450); RBC Distribution Width CV 18.3 % (11.6-14.6); RBC Distribution Width SD 62.9 fl (35.1-43.9); Red Blood Count 3.35 M/mm3 (4.6-6.2); White Blood Count 6.2 K/mm3 (4.4-11.0)
[2022-12-22 06:56] LABS: Differential Indicated SCAN CRITERIA MET
[2022-12-22 07:09] LABS: Partial Thromboplast Time 52.7 Seconds (24.1-36.2)
[2022-12-22 07:18] LABS: Anion Gap 5 (5-15); BUN 91 mg/dL (7-18); BUN/Creat Ratio 20.1 RATIO (10-20); Calcium,Total 8.2 mg/dL (8.5-10.1); Chloride 117 mmol/L (98-107); Creatinine, Serum 4.53 mg/dL (0.70-1.30); Differential Comment SCANNED; EST Glomerular Filtration Rate 14 mL/min (>60); Est Glom Filt Rate - Afr Amer 18 mL/min (>60); Estimated Creatinine Clearance 19.85 ml/min; Glucose 143 mg/dL (74-106); Potassium 4.5 mmol/L (3.5-5.1); Sodium Level 145 mmol/L (136-145)
[2022-12-22 07:22] VITALS: O2SAT 93
--- NOTE | 2022-12-22 08:12 | PN.HOSP_ITS ---
Reason for Visit Reason for Visit: Diagnoses Type 2 diabetes mellitus with diabetic chronic kidney disease (12/20/22) Type 2 diabetes mellitus with diabetic polyneuropathy (12/20/22) Essential (primary) hypertension (12/20/22) Non-ST elevation (NSTEMI) myocardial infarction (12/20/22) Old myocardial infarction (12/20/22) Ischemic cardiomyopathy (12/20/22) Acute on chronic combined systolic (congestive) and diastolic (congestive) heart failure (12/20/22) Chronic kidney disease, stage 3a (12/20/22) Chronic kidney disease, stage 4 (severe) (12/20/22) Hypoxemia (12/20/22) Other specified abnormalities of plasma proteins (12/20/22) 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 Objective Data Objective Data Vital Signs: Vital Signs Temp Pulse Resp BP Pulse Ox O2 Del Method O2 Flow Rate 36.6 C 76 18 155/80 H 94 Nasal Cannula 3 12/22/22 04:00 12/22/22 04:00 12/22/22 04:00 12/22/22 04:00 12/22/22 04:00 12/22/22 04:00 12/22/22 04:00 Oxygen Flow Rate (L/min) 3 Oxygen Delivery Method Nasal Cannula Weight: 142.4 kg Body Mass Index (BMI) 43.7 Intake & Output: Intake and Output for Last 24 Hours 12/20/22 12/21/22 12/22/22 23:59 23:59 23:59 Intake Total 734 / 974 385.83 / 385.83 Output Total 2175 / 2825 1000 / 1000 Balance -1441 / -1851 -614.17 / -614.17 Lab / Micro Data 12/22/22 06:45 12/22/22 06:45 Labs: Laboratory Results - last 24 hr 12/21/22 05:16: B-Natriuretic Peptide 726.0 H 12/21/22 09:38: PT 14.9, INR 1.2, APTT 35.5 12/21/22 12:47: POC Glucose 65 L 12/21/22 16:58: POC Glucose 112 H 12/21/22 17:34: Urine Color Yellow, Urine Clarity Clear, Urine pH 5.0, Ur Specific [place] 1.015, Urine Protein 100 H, Urine Glucose (UA) Normal, Urine Ketones Negative, Urine Occult Blood 10 H, Urine Nitrite Negative, Urine Bilirubin Negative, Urine Urobilinogen Normal, Ur Leukocyte Esterase Negative, Urine RBC 0 SEEN, Urine WBC 0 SEEN, Ur Squamous Epith Cells 0 SEEN, Amorphous Sediment 2+, Urine Bacteria 0 SEEN, Urine Mucus 0 SEEN 12/21/22 17:55: APTT 48.5 H 12/21/22 20:12: POC Glucose 166 H 12/22/22 00:35: APTT 47.6 H 12/22/22 05:57: POC Glucose 139 H 12/22/22 06:45: WBC 6.2, RBC 3.35 L, Hgb 9.1 L, Hct 31.7 L, MCV 94.6 H, MCH 27.2, MCHC 28.7 L, RDW Std Deviation 62.9 H, RDW Coeff of Rajendra 18.3 H, Plt Count 201, MPV 9.9, Immature Gran % (Auto) 0.500, Neut % (Auto) 71.6 H, Lymph % (Auto) 7.1 L, [place] % (Auto) 12.2 H, Eos % (Auto) 8.0 H, Baso % (Auto) 0.6, Absolute Neuts (auto) 4.4, Absolute Lymphs (auto) 0.44 L, Nucleated RBC % 0, Differential Comment SCANNED, APTT 52.7 H, Sodium 145, Potassium 4.5, Chloride 117 H, Carbon Dioxide 23.0, Anion Gap 5, BUN 91 H, Creatinine 4.53 H, Estim Creat Clear Calc 19.85, Est GFR (MDRD) Af Amer 18 L, Est GFR (MDRD) Non-Af 14 L, BUN/Creatinine Ratio 20.1 H, Glucose 143 H, Calcium 8.2 L Radiography Diagnostic Testing: Radiology Impression Echocardiogram 12/21/22 05:55 Interpretation Summary Normal LV size. Moderate concentric left ventricular hypertrophy. The estimated ejection fraction is 35 %. The left atrium is mildly enlarged. There is moderate global hypokinesis of the left ventricle. Small pericardial effusion. Contrast injection was performed. Ordering Physician: Per Feliciano Referring Physician: Joseph Ricks Performed By: Mariam Schwartz, RDCS, RVT Physical Exam Const alert and no apparent distress HEENT head/scalp atraumatic Resp normal respiratory effort, no retractions, no use of accessory muscles and clear to auscultation bilaterally Cardio regular rate, regular rhythm, S1 normal heart sound and S2 normal heart sound GI normal to inspection, nondistended, normoactive bowel sounds, soft to palpation, non-tender and non-distended Assessment & Plan Assessment/Plan (1) NSTEMI, initial episode of care: PLAN: Cardiology on consult Echo shows an EF 35%. LAE. Moderate global hypokinesis of the LV. Small pericardial effusion. Continue ASA, atorvastatin, clopidogrel, carvedilol, isosorbide Received a 1x dose of enoxaparin Given CKD Stress ordered and showed evidence of a ischemic cardiomyopathy, but unchanged. DW Dr. Ken who recommends medical management. (2) Acute on chronic heart failure with reduced ejection fraction and diastolic dysfunction: PLAN: Acute on chronic HFrEF EF 35-40% from echo on 08/26/22 Received 1x dose of furosemide Not a candidate for ACEi/ARB given CKD (3) CKD stage 4 due to type 2 diabetes mellitus: PLAN: CKD IV Overall worse from November Consult nephrology No need for ARCHITECTURE MANAGER, but pt aware it may be required and is agreeable when that time comes. PLAN: Plan Chronic conditions: * Diabetes mellitus type II,Patient with hyperglycemia on presentation. Correction scale insulin ordered. * HTN: stable. amlodipine. * HLP: statin. ezetimibe. * anemia of chronic disease: stable. * humeral lytic lesion: had BMBx on 12/20. DVT prophylaxis: anticoagulated. Charges/Coding Visit Charges Inpatient E&M: 56048 Subs Hosp L2
[2022-12-22 10:06] VITALS: BP 163/79; PULSE 74; RESP 17; TEMP 36.6; O2SAT 93
--- NOTE | 2022-12-22 10:13 | NURSING ---
Addendum entered by Nori Kolb RN 12/22/22 10:32: Stress lab called and asked about heparin gtt being off. Stress lab stated that the heparin gtt was only unhooked for the scan and then was forgotten to be hooked up prior to arrival back to floor. Original Note: Pt sent to stress lab with heparin gtt running at 13ml/hr. Pt returned from stress lab with heparin gtt stopped and unhooked. Heparin gtt restarted at 13ml/hr.
[2022-12-22] MEDS: Clopidogrel Bisulfate 75 MG Tablet PO (10:16)
[2022-12-22] MEDS: Ezetimibe 10 MG Tablet PO (10:16)
[2022-12-22] MEDS: amLODIPine 5 MG Tablet PO (10:16)
[2022-12-22] MEDS: Isosorbide Mononitrate 60 MG Tablet PO (10:17)
[2022-12-22] MEDS: Aspirin E.C. 81 MG Tablet PO (10:17)
[2022-12-22] MEDS: HEPARIN/D5w 25,000 UNITS 25,000 UNITS/250 ML IV.SOLN. 13 UNITS CONT INF (10:51)
--- NOTE | 2022-12-22 11:12 | PCM.PN.REN ---
Subjective Subjective Sitting up in bed. No overnight events. Patient's sister at bedside. Denies any complaints today. Reports breathing has improved. Objective Data Objective Data Vital Signs: Vital Signs Temp Pulse Resp BP Pulse Ox O2 Del Method O2 Flow Rate 97.8 F 74 17 163/79 H 93 Nasal Cannula 4 12/22/22 10:06 12/22/22 10:06 12/22/22 10:06 12/22/22 10:06 12/22/22 10:06 12/22/22 10:10 12/22/22 10:10 Oxygen Flow Rate (L/min) 4 Oxygen Delivery Method Nasal Cannula Weight: 142.4 kg Body Mass Index (BMI) 43.7 Intake & Output: Intake and Output for Last 24 Hours 12/20/22 12/21/22 12/22/22 23:59 23:59 23:59 Intake Total 734 / 974 416.00 / 416.00 Output Total 2175 / 2825 1000 / 1000 Balance -1441 / -1851 -584.00 / -584.00 Lab / Micro Data 12/22/22 06:45 12/22/22 06:45 Labs: Laboratory Results - last 24 hr 12/21/22 12:47: POC Glucose 65 L 12/21/22 16:58: POC Glucose 112 H 12/21/22 17:34: Urine Color Yellow, Urine Clarity Clear, Urine pH 5.0, Ur Specific [place] 1.015, Urine Protein 100 H, Urine Glucose (UA) Normal, Urine Ketones Negative, Urine Occult Blood 10 H, Urine Nitrite Negative, Urine Bilirubin Negative, Urine Urobilinogen Normal, Ur Leukocyte Esterase Negative, Urine RBC 0 SEEN, Urine WBC 0 SEEN, Ur Squamous Epith Cells 0 SEEN, Amorphous Sediment 2+, Urine Bacteria 0 SEEN, Urine Mucus 0 SEEN 12/21/22 17:55: APTT 48.5 H 12/21/22 20:12: POC Glucose 166 H 12/22/22 00:35: APTT 47.6 H 12/22/22 05:57: POC Glucose 139 H 12/22/22 06:45: WBC 6.2, RBC 3.35 L, Hgb 9.1 L, Hct 31.7 L, MCV 94.6 H, MCH 27.2, MCHC 28.7 L, RDW Std Deviation 62.9 H, RDW Coeff of Rajendra 18.3 H, Plt Count 201, MPV 9.9, Immature Gran % (Auto) 0.500, Neut % (Auto) 71.6 H, Lymph % (Auto) 7.1 L, [place] % (Auto) 12.2 H, Eos % (Auto) 8.0 H, Baso % (Auto) 0.6, Absolute Neuts (auto) 4.4, Absolute Lymphs (auto) 0.44 L, Nucleated RBC % 0, Differential Comment SCANNED, APTT 52.7 H, Sodium 145, Potassium 4.5, Chloride 117 H, Carbon Dioxide 23.0, Anion Gap 5, BUN 91 H, Creatinine 4.53 H, Estim Creat Clear Calc 19.85, Est GFR (MDRD) Af Amer 18 L, Est GFR (MDRD) Non-Af 14 L, BUN/Creatinine Ratio 20.1 H, Glucose 143 H, Calcium 8.2 L Physical Exam Narrative Alert and oriented x3, no apparent distress S1, S2, RRR Diminished breath sounds, no rales rhonchi or wheezing noted Abdomen rounded, soft, nontender Pitting edema noted bilateral lower legs Assessment & Plan Assessment/Plan (1) Elevated troponin: (2) Acute on chronic heart failure with reduced ejection fraction and diastolic dysfunction: (3) CORA (acute kidney injury): (4) CKD stage 4 due to type 2 diabetes mellitus: PLAN: Plan This is a 52 M with PMH significant for mellitus type II, hypertension, CKD stage 4 secondary to diabetes with baseline creatinine around 4 mg/dL followed by Dr. 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 Heard who presented emergency room yesterday with complaints of shortness of breath and admitted for further evaluation and treatment. -Nonoliguric, mildly hypervolemic acute kidney injury superimposed on CKD stage IV. CORA possibly from cardiorenal syndrome physiology versus progression of CKD. Baseline creatinine was around 4 mg/dL as of first part of November 2022. Upon admission creatinine 4.60, potassium and bicarbonate normal--> SCr 4.53 mg/dL--> again today serum creatinine 4.53. Patient is nonoliguric, no significant uremic symptoms. CXR reviewed which did not show any consolidation or edema however on exam patient is mildly hypervolemic therefore we will give another dose of Lasix 40 mg IV today and monitor for response. At this time there is no acute indication for STEWARD/STEWARDESS ECONOMY CLASS however it was explained in detail yesterday and again today with the patient and his sister that patient is CKD stage 4, close to stage 5 and should renal function worsen patient may need hemodialysis. It was also discussed with patient and sister that should patient undergo heart catheterization there is a risk that contrast exposure may worsen kidney function and he may require hemodialysis especially given that patient is CKD stage IV with baseline EGFR around 17 mL/min as of first part of November 2022. Patient and his sister both voiced understanding, questions were answered (their brother required CRRT and iHD but earlier this year and their sister had kidney transplant some years ago). Patient is in agreement for starting hemodialysis when needed. Home diuretic regimen was lasix 20mg bid (confirmed with patient today). labs ordered for am - Non-STEMI; cardiology following. Currently on heparin drip. Echo from yesterday: Small pericardial effusion, moderate concentric left ventricular hypertrophy, EF 35%, moderate global hypokinesis of left ventricle. Patient had stress test today. - Current blood pressures acceptable on amlodipine, carvedilol, Imdur. - History of Anemia of chronic disease and detectable monoclonal antibody, patient referred to Dr. Heard; work-up is currently in progress. Patient did undergo skeletal survey which showed single lytic lesion right proximal humerus. Patient had bone marrow biopsy 12/20/2022. - discussed nephrology plan with Dr. Porter.
--- NOTE | 2022-12-22 11:43 | STRESSREP ---
Stress Test Report Pharmacologic myocardial perfusion stress test. 52-year-old man with a history of ischemic cardiomyopathy Resting EKG demonstrates sinus rhythm with a rate of 70 bpm. Resting blood pressure is 158/80 mmHg. 0.4 mg of regadenoson was infused per usual protocol followed by rapid intravenous saline flush injection. Continuous EKG monitoring was performed. The maximum heart rate was 79 bpm which was 47% of max impacted heart rate the maximum workload was 1 metabolic equivalent. At rest there were no ST or T wave changes noted to suggest ischemia and at peak infusion nonspecific ST changes were noted which did not meet the criteria for ischemia. No clinical angina is noted. The final blood pressure was 142/70 mmHg. Myocardial perfusion protocol. 15.0 mCi of technetium 99m sestamibi was injected at rest. 0.4 mg of regadenoson was infused per usual protocol. At peak infusion 44 point mCi of technetium 99m sestamibi was injected stress images were obtained stress and rest images were reconstructed and compared in the short axis vertical long and horizontal long axis. Gated images were also obtained. Perfusion SPECT analysis: Review of the stress images demonstrate a dilated cardiac silhouette size with normal perfusion noted in the mid anterior wall the lateral wall and most of the inferior wall. There is a defect noted in the apex and involving the anteroseptum and the anterior septal and inferoseptal regions. The resting images demonstrate a similar pattern. The above appears to be suggestive of a previous anteroseptal inferior septal and apical infarct. No significant reversibility is noted to suggest ischemia. Gated SPECT analysis: The gated ejection fraction is 35%. Conclusion: Pharmacologic myocardial perfusion stress test with evidence of anteroseptal inferoseptal and apical infarct. Ischemic cardiomyopathy No ischemia noted.
--- NOTE | 2022-12-22 11:45 | PCM.PN.CARD ---
Subjective Subjective Patient seen and evaluated. Objective Data Vital Signs: Vital Signs Temp Pulse Resp BP Pulse Ox O2 Del Method O2 Flow Rate 97.8 F 74 17 163/79 H 93 Nasal Cannula 4 12/22/22 10:06 12/22/22 10:06 12/22/22 10:06 12/22/22 10:06 12/22/22 10:06 12/22/22 10:10 12/22/22 10:10 Oxygen Flow Rate (L/min) 4 Oxygen Delivery Method Nasal Cannula Weight: 313 lb 15.012 oz Body Mass Index (BMI) 43.7 Intake & Output: Intake and Output for Last 24 Hours 12/20/22 12/21/22 12/22/22 23:59 23:59 23:59 Intake Total 734 / 974 416.00 / 416.00 Output Total 2175 / 2825 1000 / 1000 Balance -1441 / -1851 -584.00 / -584.00 Lab / Micro Data 12/22/22 06:45 12/22/22 06:45 Labs: Laboratory Results - last 24 hr 12/21/22 12:47: POC Glucose 65 L 12/21/22 16:58: POC Glucose 112 H 12/21/22 17:34: Urine Color Yellow, Urine Clarity Clear, Urine pH 5.0, Ur Specific Wilmer 1.015, Urine Protein 100 H, Urine Glucose (UA) Normal, Urine Ketones Negative, Urine Occult Blood 10 H, Urine Nitrite Negative, Urine Bilirubin Negative, Urine Urobilinogen Normal, Ur Leukocyte Esterase Negative, Urine RBC 0 SEEN, Urine WBC 0 SEEN, Ur Squamous Epith Cells 0 SEEN, Amorphous Sediment 2+, Urine Bacteria 0 SEEN, Urine Mucus 0 SEEN 12/21/22 17:55: APTT 48.5 H 12/21/22 20:12: POC Glucose 166 H 12/22/22 00:35: APTT 47.6 H 12/22/22 05:57: POC Glucose 139 H 12/22/22 06:45: WBC 6.2, RBC 3.35 L, Hgb 9.1 L, Hct 31.7 L, MCV 94.6 H, MCH 27.2, MCHC 28.7 L, RDW Std Deviation 62.9 H, RDW Coeff of Rajendra 18.3 H, Plt Count 201, MPV 9.9, Immature Gran % (Auto) 0.500, Neut % (Auto) 71.6 H, Lymph % (Auto) 7.1 L, Whitfield % (Auto) 12.2 H, Eos % (Auto) 8.0 H, Baso % (Auto) 0.6, Absolute Neuts (auto) 4.4, Absolute Lymphs (auto) 0.44 L, Nucleated RBC % 0, Differential Comment SCANNED, APTT 52.7 H, Sodium 145, Potassium 4.5, Chloride 117 H, Carbon Dioxide 23.0, Anion Gap 5, BUN 91 H, Creatinine 4.53 H, Estim Creat Clear Calc 19.85, Est GFR (MDRD) Af Amer 18 L, Est GFR (MDRD) Non-Af 14 L, BUN/Creatinine Ratio 20.1 H, Glucose 143 H, Calcium 8.2 L Cardiology Labs/Tests 12/21/22 17:34: Urine Color Yellow, Urine Clarity Clear, Urine pH 5.0, Ur Specific Wilmer 1.015, Urine Protein 100 H, Urine Glucose (UA) Normal, Urine Ketones Negative, Urine Occult Blood 10 H, Urine Nitrite Negative, Urine Bilirubin Negative, Urine Urobilinogen Normal, Ur Leukocyte Esterase Negative, Urine RBC 0 SEEN, Urine WBC 0 SEEN 12/21/22 17:55: APTT 48.5 H 12/22/22 00:35: APTT 47.6 H 12/22/22 06:45: WBC 6.2, RBC 3.35 L, Hgb 9.1 L, Hct 31.7 L, MCV 94.6 H, MCH 27.2, MCHC 28.7 L, Plt Count 201, MPV 9.9, Immature Gran % (Auto) 0.500, Neut % (Auto) 71.6 H, Lymph % (Auto) 7.1 L, Whitfield % (Auto) 12.2 H, Eos % (Auto) 8.0 H, Baso % (Auto) 0.6, Absolute Neuts (auto) 4.4, Nucleated RBC % 0, APTT 52.7 H, Sodium 145, Potassium 4.5, Chloride 117 H, Carbon Dioxide 23.0, Anion Gap 5, BUN 91 H, Creatinine 4.53 H, Est GFR (MDRD) Af Amer 18 L, Est GFR (MDRD) Non-Af 14 L, BUN/Creatinine Ratio 20.1 H, Glucose 143 H, Calcium 8.2 L Rhythm: EKG: ECHO: Stress Test: Cardiac Cath: PCI: CT Surgery: Holter monitor: EPS: PPM: CXR: Chest CT Scan: Physical Exam Const alert, oriented x3 and no apparent distress General Appearance: cooperative HEENT hearing grossly normal bilaterally Head and Scalp: atraumatic Eyes EOMs intact bilaterally Neck General: normal visual inspection Chest inspection of chest normal and palpation of chest normal Resp normal respiratory effort Auscultation: clear to auscultation bilaterally Cardio regular rate, regular rhythm, S1 normal heart sound and S2 normal heart sound Jugular Venous Distention: JVD GI normal to inspection, nondistended, normoactive bowel sounds Extremity normal capillary refill and no pedal edema Peripheral Pulses: Yes pulses 2+ throughout and femoral pulses present Skin no rashes or lesions noted Neuro oriented x3 and CN's II-XII intact bilaterally Psych Appearance: grossly normal and appropriate Assessment & Plan Assessment/Plan (1) History of non-ST elevation myocardial infarction (NSTEMI): PLAN: He presents with shortness of breath and is noted to have elevated cardiac enzymes suggestive of a non-ST elevation myocardial infarction. He says that he has been compliant with his medications. He did undergo a pharmacologic myocardial perfusion stress test which demonstrated no obvious ischemia. Extensive anteroseptal and inferior septal and apical infarcts were noted. My plan is to continue with the current medical therapy as we are doing with isosorbide, carvedilol, and amlodipine. (2) Acute on chronic heart failure with reduced ejection fraction and diastolic dysfunction: PLAN: He does have evidence of heart failure with reduced ejection fraction. His repeat echocardiogram demonstrated ejection fraction of 35% with a small pericardial effusion. He may need a diuretic regimen more than 20 mg of Lasix twice daily for appropriate diuresis. This of course may compromise his renal disease. (3) Hypertension: PLAN: His blood pressure was noted to be elevated on admission. Blood pressure currently appears to be better. We will continue current medication. (4) Chronic kidney disease, stage 3a: PLAN: We will recommend nephrology input in case he needs further cardiac catheterization. (5) Ischemic cardiomyopathy: PLAN: He does have evidence of ischemic cardiomyopathy with an estimated ejection fraction of 35% on last admission. This appears to be unchanged. He does have evidence of a small pericardial effusion. We will continue current medical therapy. Thank you for allowing me to participate in the care of your patient. Please don't hesitate to call if any issues arise.
[2022-12-22] MEDS: Furosemide 40 MG/4 ML Vial IV (12:07)
[2022-12-22] MEDS: 0.9% Saline Lock 10 ML Syringe IV (12:08)
[2022-12-22 12:37] LABS: Bedside Glucose 146 mg/dL (74-106)
--- NOTE | 2022-12-22 13:57 | CASEMGMT ---
CYNTHIA was notified that patient was interested in completing a Healthcare Power of Manager Style and a Healthcare Living Will as well as a Medicaid application. CYNTHIA met with patient. Introduced self and role at [facility]. Patient confirmed he would like to do advance directives. SW completed Healthcare Living Will and Healthcare Power of Manager Style with patient. Copies were made and given to patient along with originals. SW also placed a copy in patient's chart. Patient named his son Juan A as his Healthcare Power of Manager Style. SW also gave patient a Medicaid application. Patient said his family would help him with the application. Georgiana Ayala MSW [place]
[2022-12-22 16:00] VITALS: BP 155/79; PULSE 71; RESP 20; TEMP 36.7; O2SAT 93
[2022-12-22] MEDS: Carvedilol 25 MG Tablet PO (17:39)
[2022-12-22 20:20] VITALS: BP 177/89; PULSE 70; RESP 20; TEMP 36.9; O2SAT 95
[2022-12-22 22:31] VITALS: BP 171/73; PULSE 67; RESP 18; TEMP 36.7; O2SAT 99
[2022-12-22] MEDS: Atorvastatin Calcium 80 MG Tablet PO (22:35)
[2022-12-22 23:15] LABS: Bedside Glucose 146 mg/dL (74-106)
[2022-12-23 03:21] VITALS: BP 154/78; PULSE 69; RESP 18; TEMP 37; O2SAT 93
[2022-12-23 03:55] VITALS: BMI 43.0
[2022-12-23 06:05] VITALS: O2SAT 86; O2SAT 88; O2SAT 91
[2022-12-23] MEDS: 0.9% Saline Lock 10 ML Syringe IV (06:10)
[2022-12-23 06:16] VITALS: BMI 42.7
[2022-12-23 06:34] LABS: Bedside Glucose 136 mg/dL (74-106)
--- NOTE | 2022-12-23 08:03 | PN.HOSP_ITS ---
Reason for Visit Reason for Visit: Diagnoses Type 2 diabetes mellitus with diabetic chronic kidney disease (12/20/22) Type 2 diabetes mellitus with diabetic polyneuropathy (12/20/22) Essential (primary) hypertension (12/20/22) Non-ST elevation (NSTEMI) myocardial infarction (12/20/22) Old myocardial infarction (12/20/22) Ischemic cardiomyopathy (12/20/22) Acute on chronic combined systolic (congestive) and diastolic (congestive) heart failure (12/20/22) Chronic kidney disease, stage 3a (12/20/22) Chronic kidney disease, stage 4 (severe) (12/20/22) Hypoxemia (12/20/22) Other specified abnormalities of plasma proteins (12/20/22) 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 Taken off oxygen and breathing well. Objective Data Objective Data Vital Signs: Vital Signs Temp Pulse Resp BP Pulse Ox O2 Del Method O2 Flow Rate 37.0 C 69 18 154/78 H 91 Nasal Cannula 0 12/23/22 03:21 12/23/22 03:21 12/23/22 03:21 12/23/22 03:21 12/23/22 06:05 12/23/22 03:21 12/23/22 06:05 Oxygen Flow Rate (L/min) [ 3 AMBULATING with Oxygen #3] Oxygen Flow Rate (L/min) [ 2 AMBULATING with Oxygen #2] Oxygen Flow Rate (L/min) [ 0 AMBULATING with Oxygen #1] Oxygen Flow Rate (L/min) [At 0 REST on Room Air] Oxygen Flow Rate (L/min) 2 Oxygen Delivery Method Nasal Cannula Weight: 139 kg Body Mass Index (BMI) 42.7 Intake & Output: Intake and Output for Last 24 Hours 12/21/22 12/22/22 12/23/22 23:59 23:59 23:59 Intake Total 734 / 974 1312.90 / 1612.90 540 / 540 Output Total 2175 / 2825 1000 / 1800 1750 / 1750 Balance -1441 / -1851 312.90 / -187.10 -1210 / -1210 Lab / Micro Data 12/22/22 06:45 12/23/22 06:48 Labs: Laboratory Results - last 24 hr 12/22/22 12:17: POC Glucose 146 H 12/22/22 22:34: POC Glucose 146 H 12/23/22 05:55: POC Glucose 136 H Physical Exam Const alert and no apparent distress HEENT head/scalp atraumatic and moist oral mucous membranes Resp normal respiratory effort, no retractions, no use of accessory muscles and clear to auscultation bilaterally Cardio regular rate, regular rhythm, S1 normal heart sound and S2 normal heart sound GI normal to inspection, nondistended, normoactive bowel sounds Extremity General Extremity: edema bilateral lower extremity Details: mild Neuro Sensorium / Orientation: awake Assessment & Plan Assessment/Plan (1) NSTEMI, initial episode of care: PLAN: Cardiology on consult Echo shows an EF 35%. LAE. Moderate global hypokinesis of the LV. Small pericardial effusion. Continue ASA, atorvastatin, clopidogrel, carvedilol, isosorbide Received a 1x dose of enoxaparin Given CKD Stress ordered and showed evidence of a ischemic cardiomyopathy, but unchanged. DW Dr. Ken who recommends medical management. (2) Acute on chronic heart failure with reduced ejection fraction and diastolic dysfunction: PLAN: Acute on chronic HFrEF EF 35-40% from echo on 08/26/22 Received 2x dose of furosemide Not a candidate for ACEi/ARB given CKD' Will have the patient on 20 mg of furosemide upon discharge.' Patient to follow-up with cardiology (3) CKD stage 4 due to type 2 diabetes mellitus: PLAN: CKD IV Overall worse from November Consult nephrology No need for QUARRY PLUG AND FEATHER DRILLER, but pt aware it may be required and is agreeable when that time comes. Patient follow-up with nephrology as outpatient. PLAN: Plan Chronic conditions: * Diabetes mellitus type II,Patient with hyperglycemia on presentation. Correction scale insulin ordered. * HTN: stable. amlodipine. * HLP: statin. ezetimibe. * anemia of chronic disease: stable. * humeral lytic lesion: had BMBx on 12/20. DVT prophylaxis: anticoagulated. Discussed with the patient's son at bedside
[2022-12-23 08:14] LABS: Anion Gap 5 (5-15); BUN 87 mg/dL (7-18); BUN/Creat Ratio 21.4 RATIO (10-20); Calcium,Total 8.5 mg/dL (8.5-10.1); Chloride 114 mmol/L (98-107); Creatinine, Serum 4.06 mg/dL (0.70-1.30); EST Glomerular Filtration Rate 16 mL/min (>60); Est Glom Filt Rate - Afr Amer 20 mL/min (>60); Estimated Creatinine Clearance 22.15 ml/min; Glucose 134 mg/dL (74-106); Magnesium 2.3 mg/dL (1.6-2.6); Potassium 4.3 mmol/L (3.5-5.1); Sodium Level 143 mmol/L (136-145)
--- NOTE | 2022-12-23 09:09 | PCM.DC.SUM ---
Providers Date of Admission: 12/20/22 Primary Care Physician: Dr. Joseph Ricks MD Consultations 12/20/22 22:26 Consult: Cardiology Routine Consulting Provider: Barry Ken Reason for Consult: SOB EMERGENT Consult: No MD Notified: Yes Date Notified: 12/20/22 Time Notified: 20:43 Method of Notification: ED Physician Initiated 12/21/22 07:54 Consult: Nephrology Routine Consulting Provider: Nati Steel Reason for Consult: acute on chronic kidney disease EMERGENT Consult: No Notified: Yes Date Notified: 12/21/22 Time Notified: 09:36 Method of Notification: Answering Service Reason For Visit: ELEVATED TROPONIN, HYPOXIA, CORA ON CKD Diagnosis Discharge Diagnosis (1) NSTEMI, initial episode of care: Status: Acute Code(s): I21.4 - Non-ST elevation (NSTEMI) myocardial infarction Plan: Cardiology on consult Echo shows an EF 35%. LAE. Moderate global hypokinesis of the LV. Small pericardial effusion. Continue ASA, atorvastatin, clopidogrel, carvedilol, isosorbide Received a 1x dose of enoxaparin Given CKD Stress ordered and showed evidence of a ischemic cardiomyopathy, but unchanged. DW Dr. Ken who recommends medical management. (2) Acute on chronic heart failure with reduced ejection fraction and diastolic dysfunction: Status: Acute Code(s): I50.43 - Acute on chronic combined systolic (congestive) and diastolic (congestive) heart failure Plan: Acute on chronic HFrEF EF 35-40% from echo on 08/26/22 Received 2x dose of furosemide Not a candidate for ACEi/ARB given CKD' Will have the patient on 20 mg of furosemide upon discharge.' Patient to follow-up with cardiology (3) CKD stage 4 due to type 2 diabetes mellitus: Status: Chronic Code(s): E11.22 - Type 2 diabetes mellitus with diabetic chronic kidney disease; N18.4 - Chronic kidney disease, stage 4 (severe) Plan: CKD IV Overall worse from November Consult nephrology No need for STUD DAIRY CATTLE FARMER, but pt aware it may be required and is agreeable when that time comes. Patient follow-up with nephrology as outpatient. Plan Chronic conditions: Diabetes mellitus type II,Patient with hyperglycemia on presentation. Correction scale insulin ordered. HTN: stable. amlodipine. HLP: statin. ezetimibe. anemia of chronic disease: stable. humeral lytic lesion: had BMBx on 12/20. DVT prophylaxis: anticoagulated. Discussed with the patient's son at bedside Medications at Discharge Home Medications aspirin 81 mg chewable tablet 81 mg PO DAILY@0800 heart 09/28/14 atorvastatin 80 mg tablet 80 mg PO QHS cholesterol 30 days #30 tabs 06/21/21 clopidogrel 75 mg tablet 75 mg PO DAILY Blood Thinner 30 days #30 tabs 06/21/21 insulin glargine 100 unit/mL (3 mL) subcutaneous pen (Lantus Solostar U-100 Insulin) 20 unit (0.2 mL) subcut BID Diabetes 30 days #12 mL 06/21/21 isosorbide mononitrate 60 mg tablet,extended release 24 hr 60 mg PO DAILY Heart 30 days #30 tabs 01/12/22 ezetimibe 10 mg tablet 10 mg PO DAILY cholesterol 04/07/22 carvedilol 25 mg tablet 25 mg PO BID #180 tabs 05/25/22 amlodipine 5 mg tablet 5 mg PO DAILY . 06/05/22 ferrous sulfate 325 mg (65 mg iron) tablet (FeroSul) 325 mg PO BID #60 tabs 06/08/22 doxycycline monohydrate 100 mg capsule 100 mg PO BID #84 caps 08/29/22 furosemide 20 mg tablet 20 mg PO DAILY #30 tabs 12/23/22 Hospital Course Operations None Procedures 2-D Echocardiogram Summary of Care Provided Minutes Spent on Discharge: 32 Hospital Course: Patient presents with shortness of breath. Patient was found to be in CHF exacerbation as well as having a non-ST ovation myocardial infarction. Nephrology was consulted as patient has chronic kidney disease stage IV and patient was prescribed 2 doses of IV furosemide which I did help him in regards to his heart failure. For the non-ST patient myocardial infarction, patient did have an abnormal stress test but felt by cardiology that this is chronic and continue with medical management. Patient has remained stable and I will be discharged home to continue with furosemide and with close follow-up with cardiology and nephrology Weight / BMI Weight Weight: 139 kg Body Mass Index (BMI) 42.7 ABG / Lab / Microbiology Data 12/22/22 06:45 12/23/22 06:48 Laboratory: Laboratory Results - last 24 hr 12/22/22 12:17: POC Glucose 146 H 09/15/23 22:34: POC Glucose 146 H 12/23/22 05:55: POC Glucose 136 H 12/23/22 06:48: Sodium 143, Potassium 4.3, Chloride 114 H, Carbon Dioxide 24.0, Anion Gap 5, BUN 87 H, Creatinine 4.06 H, Estim Creat Clear Calc 22.15, Est GFR (MDRD) Af Amer 20 L, Est GFR (MDRD) Non-Af 16 L, BUN/Creatinine Ratio 21.4 H, Glucose 134 H, Calcium 8.5, Magnesium 2.3 D/C Instructions Discharge Diet: Low fat / Low cholesterol, 2000 Calorie Control Diet, 8 Cup Fluid Restriction and 2000 mg Sodium Diet Call your doctor if you observe: Shortness of breath Meaningful Use Info Meaningful Use Diagnoses (Choose all that apply): AMI and CHF AMI/Post PCI/Angioplasty Aspirin given w/in 24hrs of arrival?: Yes ASA at discharge?: Yes Antiplatelet Therapy at Discharge:: Yes Statins at discharge?: Yes Leonides/ARB at discharge?: No Reason Leonides/ARB not ordered:: Worsening renal dysfunctn Beta Brittany at discharge?: Yes Done w/ Acute IL measure.: Yes Documented LVEF (%): 35 CHF LEONIDES/ARB ordered at discharge?: No Reason LEONIDES/ARB not ordered?: Worsening renal disease Documented LVEF (%): 35 Discharge Plan Admission Admit Date/Time: 12/20/22 20:37 Primary Reason for Your Visit: Heart failure. Myocardial infarction. Attending Provider: Luis Carlos Porter Primary Care Provider: Joseph Ricks Consulting Providers: Barry Ken; Per Feliciano; Nati Steel Instructions Additional Instructions / Restrictions: You had acute heart failure. He responded well with IV furosemide (Lasix). You also had a heart attack while you are here. Your stress test was abnormal but unchanged. Dr. Ken of cardiology felt that this is stable and just recommend continued medical treatment. Your kidney function has done better why you have been here. Still need to have close follow-up with nephrology. I will have you on furosemide to help with managing her fluids moving forward. Check her weight daily. Keep a record of those weights. If her weight goes up more than 2 pounds in 1 day or 3 pounds in 1 week, take an additional furosemide tablet. Discharge Orders/Prescriptions Prescriptions: New furosemide 20 mg tablet 20 mg PO DAILY Qty: 30 0RF Continued aspirin 81 MG tablet,chewable 81 mg PO DAILY@0800 Patient Comments: [facility] atorvastatin 80 MG tablet 80 mg PO QHS 30 Days Qty: 30 0RF clopidogrel 75 MG tablet 75 mg PO DAILY 30 Days Qty: 30 0RF insulin glargine [Lantus Solostar U-100 Insulin] 100 unit/mL (3 mL) insulin pen 20 unit subcut BID 30 Days Qty: 12 0RF Rx Instructions: Takes if Blood sugar > 150 ezetimibe 10 mg tablet 10 mg PO DAILY Patient Comments: TAKE 1 TABLET BY MOUTH EVERY DAY amlodipine 5 mg tablet 5 mg PO DAILY Patient Comments: TAKE ONE TABLET BY MOUTH DAILY ferrous sulfate [FeroSul] 325 mg (65 mg iron) Tablet 325 mg PO BID Qty: 60 0RF isosorbide mononitrate 60 mg tablet extended release 24 hr 60 mg PO DAILY 30 Days Qty: 30 11RF Rx Instructions: please refill now carvedilol 25 mg tablet 25 mg PO BID Qty: 180 3RF Rx Instructions: must administer with a meal/food No Action doxycycline monohydrate 100 mg capsule 100 mg PO BID Qty: 84 0RF Rx Instructions: one twice a day for 6 weeks Referrals / Follow Up: [facility] [Provider Group] - Within 1 Month [facility] [Provider Group] - Within 1 Month Joseph Ricks MD [Primary Care Provider] - Within 2 Weeks Disposition Disposition (needs filled in before D/C Order can be placed): Home, Self Care Charges/Coding Visit Charges Inpatient E&M: 87702 Disch Hosp >30min
[2022-12-23 09:18] VITALS: BP 178/79; PULSE 76; RESP 18; TEMP 36.6; O2SAT 94
[2022-12-23 09:24] VITALS: BP 178/79; PULSE 84; RESP 18; TEMP 36.6; O2SAT 94
[2022-12-23] MEDS: amLODIPine 5 MG Tablet PO (09:25)
[2022-12-23] MEDS: Carvedilol 25 MG Tablet PO (09:25)
[2022-12-23] MEDS: Clopidogrel Bisulfate 75 MG Tablet PO (09:25)
[2022-12-23] MEDS: Isosorbide Mononitrate 60 MG Tablet PO (09:25)
[2022-12-23] MEDS: Ezetimibe 10 MG Tablet PO (09:25)
[2022-12-23] MEDS: Aspirin E.C. 81 MG Tablet PO (09:25)
--- NOTE | 2022-12-23 10:20 | PCM.PN.REN ---
Subjective Subjective Follow-up on advanced CKD, diabetic nephropathy. Making good urine, feels fine, states that will be discharged today Objective Data Objective Data Vital Signs: Vital Signs Temp Pulse Resp BP Pulse Ox O2 Del Method O2 Flow Rate 97.9 F 84 18 178/79 H 94 Room Air 0 12/23/22 09:24 12/23/22 09:24 12/23/22 09:24 12/23/22 09:24 12/23/22 09:24 12/23/22 09:12/23/22 06:05 Oxygen Flow Rate (L/min) [ 3 AMBULATING with Oxygen #3] Oxygen Flow Rate (L/min) [ 2 AMBULATING with Oxygen #2] Oxygen Flow Rate (L/min) [ 0 AMBULATING with Oxygen #1] Oxygen Flow Rate (L/min) [At 0 REST on Room Air] Oxygen Flow Rate (L/min) 2 Oxygen Delivery Method Room Air Weight: 139 kg Body Mass Index (BMI) 42.7 Intake & Output: Intake and Output for Last 24 Hours 12/21/22 12/22/22 12/23/22 23:59 23:59 23:59 Intake Total 734 / 974 1312.90 / 1612.90 540 / 540 Output Total 2175 / 2825 1000 / 1800 1750 / 1750 Balance -1441 / -1851 312.90 / -187.10 -1210 / -1210 Lab / Micro Data Attestation: I reviewed the patient's lab results. 12/22/22 06:45 12/23/22 06:48 Labs: Laboratory Results - last 24 hr 12/22/22 12:17: POC Glucose 146 H 12/22/22 22:34: POC Glucose 146 H 12/23/22 05:55: POC Glucose 136 H 12/23/22 06:48: Sodium 143, Potassium 4.3, Chloride 114 H, Carbon Dioxide 24.0, Anion Gap 5, BUN 87 H, Creatinine 4.06 H, Estim Creat Clear Calc 22.15, Est GFR (MDRD) Af Amer 20 L, Est GFR (MDRD) Non-Af 16 L, BUN/Creatinine Ratio 21.4 H, Glucose 134 H, Calcium 8.5, Magnesium 2.3 Physical Exam Const General Appearance: well developed Orientation / Consciousness: oriented to person, oriented to place and oriented to time Nutritional Appearance: obese HEENT normocephalic Head and Scalp: atraumatic Neck no lymphadenopathy Resp no use of accessory muscles and clear to auscultation bilaterally Cardio regular rate and no rub GI non-tender and non-distended Auscultation: normoactive bowel sounds Neuro Sensorium / Orientation: awake and alert Motor Exam: muscle tone normal throughout Psych cooperative Assessment & Plan Assessment/Plan (1) CKD stage 4 due to type 2 diabetes mellitus: PLAN: Appears euvolemic, makes good urine, no acidosis, creatinine is better, potassium is normal. Okay to discharge, follow-up with primary boiler house inspector within the next 2 weeks
--- NOTE | 2022-12-23 11:19 | NURSING ---
[employer] notified of need for home oxygen. Prescription faxed to [facility] [place], [place].
== END 2022-12-23 11:18 | disposition home or self-care (01) | DRG 280 ==
LOC: ED 20:40 → PCU 20:58
PROVIDERS: Nurse Practitioner Adult Health; Admitting Provider Hospitalist; Emergency Provider Emergency Medicine; PCP Family Medicine
DX: I21.4 Non-ST elevation (NSTEMI) myocardial infarction (principal); I50.43 Acute on chronic combined systolic (congestive) and diastolic (congestive) heart failure; N17.9 Acute kidney failure, unspecified; I13.0 Hypertensive heart and chronic kidney disease with heart failure and stage 1 through stage 4 chronic kidney disease, or unspecified chronic kidney disease; N18.4 Chronic kidney disease, stage 4 (severe); T82.855A Stenosis of coronary artery stent, initial encounter; D63.8 Anemia in other chronic diseases classified elsewhere; E11.22 Type 2 diabetes mellitus with diabetic chronic kidney disease; J44.9 Chronic obstructive pulmonary disease, unspecified; E11.42 Type 2 diabetes mellitus with diabetic polyneuropathy; E11.65 Type 2 diabetes mellitus with hyperglycemia; Z79.4 Long term (current) use of insulin; E11.21 Type 2 diabetes mellitus with diabetic nephropathy; I16.0 Hypertensive urgency; I25.10 Atherosclerotic heart disease of native coronary artery without angina pectoris; E78.5 Hyperlipidemia, unspecified; I25.5 Ischemic cardiomyopathy; I25.2 Old myocardial infarction; Z95.5 Presence of coronary angioplasty implant and graft; Z79.82 Long term (current) use of aspirin; Z86.16 Personal history of COVID-19; R09.02 Hypoxemia; Z79.02 Long term (current) use of antithrombotics/antiplatelets; M89.8X2 Other specified disorders of bone, upper arm
CPT/HCPCS: 36415; 71045; 78452; 80048; 80061; 81001; 82962; 83735; 83880; 84484; 85025; 85610; 85730; 93005; 93017; 93308; 99285; A9500; Q9957; A4216; J1940; J2785

== ENCOUNTER 2022-12-31 23:42 | Inpatient (IN) | payer OTHER, SELFPAY ==
[2018-12-25 08:56] VITALS: BMI 37.9
[2022-12-31 23:43] VITALS: BP 190/82; PULSE 102; RESP 32; TEMP 37.3; O2SAT 82; BMI 44.1
[2022-12-31 23:48] VITALS: O2SAT 88
[2022-12-31 23:51] VITALS: O2SAT 88
[2022-12-31 23:58] VITALS: O2SAT 86
[2023-01-01] VITALS (18 sets, daily range): BP systolic 126–188; BP diastolic 68–84; PULSE 62–102; RESP 18–36; TEMP 36.1–36.6; O2SAT 91–97; BMI 43.2
--- NOTE | 2023-01-01 00:19 | ED.VIS.CHEST ---
HPI History of Present Illness Chief Complaint: Chest Pain Informant: patient and family Narrative Narrative: Patient states for the last day or 2 he has been having more dyspnea with exertion, and feeling malaised. Tonight he laid down and he started coughing a lot, which led to increased dyspnea, he was swallowing his sputum, he then vomited it up once, and shortly after that he was having left-sided chest discomfort that is worse with coughing but not breathing. After that he felt like he could not catch his breath despite putting his oxygen on which he wears at night since being discharged from the hospital for CHF last week. He states he has been drinking a lot more fluid than normal, than he is supposed to, lately due to feeling like his mouth is very dry. He does urinate when he takes his Lasix 20 mg daily. Denies any fevers or chills. No abdominal symptoms. Breathing is somewhat improved right now after EMS gave him nitroglycerin. [facility] Medical History CORA (acute kidney injury) Anemia in chronic illness Atherosclerotic heart disease of [place] coronary artery without angina pectoris Carotid artery stenosis Chronic diastolic (congestive) heart failure Chronic kidney disease Chronic kidney disease CKD stage 4 due to type 2 diabetes mellitus Coronary artery disease Depression Diabetes mellitus Diabetes mellitus with diabetic polyneuropathy Diabetes mellitus, type II Diabetic infection of left foot Edema, peripheral Essential (primary) hypertension History of non-ST elevation myocardial infarction (NSTEMI) (08/25/22) History of stress test Hyperlipidemia Hyperlipidemia Hypertension Hypertension Hypomagnesemia Infected sebaceous cyst Insulin dependent diabetes mellitus Ischemic cardiomyopathy (06/2013) Left ventricular systolic dysfunction (LVSD) Non-pressure 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 of bone Non-pressure chronic ulcer of other part of left foot with fat layer exposed Non-pressure chronic ulcer of other part of left foot with fat layer exposed Obesity Other acute osteomyelitis, right ankle and foot Paresthesias Partial nontraumatic amputation of right foot Pneumonia due to COVID-19 virus (03/14/20) Postoperative cardiac arrest following non-cardiac surgery Type 2 diabetes mellitus with diabetic neuropathy, unspecified Type 2 diabetes mellitus with diabetic polyneuropathy Type 2 diabetes mellitus with diabetic polyneuropathy Type 2 diabetes mellitus with foot ulcer Ulcer of right foot with fat layer exposed Venous insufficiency Venous insufficiency of both lower extremities Home Medications aspirin 81 mg chewable tablet 81 mg PO DAILY@0800 heart 09/28/14 [History Last Taken 12/20/18] atorvastatin 80 mg tablet 80 mg PO QHS cholesterol 30 days #30 tabs 06/21/21 [Rx Last Taken Unknown] clopidogrel 75 mg tablet 75 mg PO DAILY Blood Thinner 30 days #30 tabs 06/21/21 [Rx Last Taken Unknown] insulin glargine 100 unit/mL (3 mL) subcutaneous pen (Lantus Solostar U-100 Insulin) 20 unit (0.2 mL) subcut BID Diabetes 30 days #12 mL 06/21/21 [Rx Last Taken Unknown] isosorbide mononitrate 60 mg tablet,extended release 24 hr 60 mg PO DAILY Heart 30 days #30 tabs 01/12/22 [Rx Last Taken Unknown] ezetimibe 10 mg tablet 10 mg PO DAILY cholesterol 04/07/22 [History Last Taken Unknown] carvedilol 25 mg tablet 25 mg PO BID blood pressure #180 tabs 05/25/22 [Rx Last Taken Unknown] amlodipine 5 mg tablet 5 mg PO DAILY blood pressure 06/05/22 [History Last Taken Unknown] ferrous sulfate 325 mg (65 mg iron) tablet (FeroSul) 325 mg PO BID supplement #60 tabs 06/08/22 [Rx Last Taken Unknown] doxycycline monohydrate 100 mg capsule 100 mg PO BID infection #84 caps 08/29/22 [Rx Last Taken Unknown] furosemide 20 mg tablet 20 mg PO DAILY #30 tabs 12/23/22 [Rx Last Taken Unknown] ergocalciferol (vitamin D2) 1,250 mcg (50,000 unit) capsule (Vitamin D2) 50,000 unit PO QWEEK 01/01/23 [History Last Taken Unknown] Allergy/AdvReac Type Severity Reaction Status Date / Time lisinopril AdvReac Intermediate Cough Verified 12/31/22 23:48 losartan AdvReac Intermediate cough Verified 12/31/22 23:48 Family History Father , Age 57 from [place] Myocardial infarction CAD (coronary artery disease) Sudden cardiac Mother Sick sinus syndrome Sister Diabetes Other History of coronary artery stent placement History of non-ST elevation myocardial infarction (NSTEMI) Surgical History H/O cardiac catheterization History of coronary artery stent placement (08/28/22) Social History household members: none Smoking Status: Never smoker alcohol intake: current alcohol intake frequency: holidays/special occasions only substance use type: does not use caffeine: Yes Type: carbonated beverages Number of servings: 2 ROS ROS ED Constitutional Constitutional ED: Reports malaise; Denies chills or fever(s) Eyes Eyes: Denies change in vision or diplopia ENT ENT ED: Reports dry mouth; Denies rhinorrhea or sore throat Cardiovascular Cardiovascular: Reports as per HPI, chest pain, leg edema and orthopnea; Denies palpitations Respiratory/Chest Respiratory/Chest: Reports cough, dyspnea, orthopnea and sputum Gastrointestinal Gastrointestinal: Denies abdominal pain, diarrhea, nausea or vomiting Genitourinary Genitourinary ED: Denies dysuria or hematuria Musculoskeletal Musculoskeletal: Denies back pain or neck pain Integumentary Denies abscess or rash Neurologic Neurologic: Denies headache(s), paresthesias or weakness Psychiatric Psychiatric: Denies anxiety or suicidal thoughts EXAM Physical Exam Const Vital Signs: 12/31/22 23:43 12/31/22 23:48 12/31/22 23:49 Temperature 99.1 F Temperature Source Temporal Pulse Rate 102 H Respiratory Rate 32 H Respiratory Pattern Normal Blood Pressure 190/82 H Blood Pressure Mean 118 Pulse Ox 82 88 Oxygen Delivery Method Nasal Cannula Nasal Cannula Oxygen Flow Rate (L/min) 2 4 12/31/22 23:51 12/31/22 23:58 01/01/23 00:07 Temperature Temperature Source Pulse Rate Respiratory Rate Respiratory Pattern Blood Pressure Blood Pressure Mean Pulse Ox 88 86 91 Oxygen Delivery Method Nasal Cannula Nasal Cannula Nasal Cannula Oxygen Flow Rate (L/min) 8 6 8 01/01/23 00:34 01/01/23 00:35 01/01/23 00:40 Temperature Temperature Source Pulse Rate 97 97 95 Respiratory Rate 30 H Respiratory Pattern Tachypnea Blood Pressure 185/73 H 185/73 H Blood Pressure Mean Pulse Ox Oxygen Delivery Method Oxygen Flow Rate (L/min) 01/01/23 00:41 01/01/23 01:09 01/01/23 00:00 Temperature Temperature Source Pulse Rate 92 102 H Respiratory Rate 36 H Respiratory Pattern Blood Pressure 188/84 H Blood Pressure Mean 112 Pulse Ox 95 Oxygen Delivery Method Nasal Cannula Nasal Cannula Oxygen Flow Rate (L/min) 8 8 01/01/23 00:45 01/01/23 01:23 Temperature 97.8 F Temperature Source Temporal Pulse Rate 95 91 Respiratory Rate 27 H 18 Respiratory Pattern Blood Pressure 181/72 H 177/74 H Blood Pressure Mean 96 108 Pulse Ox 94 Oxygen Delivery Method Oxygen Flow Rate (L/min) Positive well nourished, well developed and obese General Appearance ED: well developed and NAD Nutritional Appearance: obese HEENT Reports moist mucous membranes normocephalic and atraumatic Eyes PERRL and EOMs intact bilaterally Neck full ROM and supple Chest Wall inspection of chest normal and palpation of chest normal Resp Resp Narrative: Tachypneic, but no respiratory distress. Bibasilar rhonchi and rales. Equal breath sounds bilaterally trachea midline. Cardio regular rate, regular rhythm and no murmurs GI non-tender and non-distended Auscultation: normoactive bowel sounds Palpation: soft Back/Spine no CVA tenderness General Back: other FROM Extremity normal to inspection General Extremety ED: Yes edema; Negative for pulses abnormal or tenderness General Extremity: edema bilateral lower extremity Details: severe; Negative for pulses abnormal Neuro oriented x3, CN's II-XII intact bilaterally and no sensory deficits noted Sensorium / Orientation: awake and alert Motor Exam: strength 5/5 throughout Psych mental status grossly normal Skin no rashes or lesions noted and no wounds Heart Score History: Slightly/Non-Suspicious ECG: Nonspecific Repolarization Age: >45 - <65 years Risk Factors: >/= 3 Risk Factors or History of CAD Troponin: </= Normal Limit Score: 4 MDM MDM MDM Narrative Medical decision making narrative: Clinically I suspect patient is in acute CHF. On his home 2 L of oxygen which he wears at night only, he is 82%. It took 8 L to get him up to 91%. This is before we gave additional treatment in addition to the nitroglycerin that EMS gave him, which brought his pressure down to 190/82. He is given a duo nebulizer treatments in addition to another nitroglycerin followed by Nitropaste,SL, and IV Lasix 40 mg. I do not think his chest discomfort is cardiac. Sounds more musculoskeletal to me. Chest x-ray 1 view on my interpretation shows no pneumothorax but consistent with congestive heart failure, difficult to rule out pneumonia in the right lower lobe radiology in agreement. He does have a leukocytosis that supports this. Started on antibiotics empirically, doing better from a respiratory standpoint plan on admission to the hospital discussed with hospitalist. History & Record Review Additional record(s) reviewed:: Prior inpatient record (Discharge summary from 1 week ago; echocardiogram 35% ejection fraction) Lab Data Attestation: I reviewed the patient's lab results. Labs: Laboratory Results - last 24 hr 01/01/23 00:22 WBC 14.8 H RBC 3.99 L Hgb 10.7 L Hct 36.0 L MCV 90.2 MCH 26.8 L MCHC 29.7 L RDW Std Deviation 56.5 H RDW Coeff of Rajendra 16.8 H Plt Count TNP MPV 10.8 Immature Gran % (Auto) 0.300 Neut % (Auto) 86.8 H Lymph % (Auto) 2.3 L [place] % (Auto) 8.3 Eos % (Auto) 1.8 Baso % (Auto) 0.5 Absolute Neuts (auto) 12.8 H Absolute Lymphs (auto) 0.34 L Nucleated RBC % 0 Differential Comment SCANNED Platelet Estimate ADEQUATE Sodium 141 Potassium 4.3 Chloride 112 H Carbon Dioxide 21.0 Anion Gap 8 BUN 91 H Creatinine 4.02 H Estim Creat Clear Calc 22.37 Est GFR (MDRD) Af Amer 20 L Est GFR (MDRD) Non-Af 17 L BUN/Creatinine Ratio 22.6 H Glucose 181 H Calcium 8.5 Troponin I High Sens 42 B-Natriuretic Peptide 598.2 H Radiography Diagnostic Testing: Clinical Impression(s) from Imaging Studies Chest X-Ray 01/01/23 00:25 IMPRESSION: Cardiomegaly with bilateral infiltrates, right consolidation and probable pleural effusion. Findings suspicious for pneumonia. Recommend short-term follow-up to complete resolution. Electronically Signed: Derik Rowan MD at 0:50 EDT , Rhythm Strip Rhythm Strip: Sinus Tach Rate: 102 Ectopy: None EKG Initial EKG: Attestation: I personally reviewed and interpreted this EKG as follows: Interpretation: Sinus Rhythm, No Acute Injury Pattern and Non-Specific ST Changes Prior EKG tracings: available for review Prior: Unchanged Management Discussion w/another healthcare provider: Hospitalist Discharge Plan Dx/Rx/DC Orders Clinical Impression: Acute respiratory failure with hypoxia, Acute exacerbation of CHF (congestive heart failure), CKD (chronic kidney disease), stage IV, Pneumonia Disposition Disposition: Acute Care Hospital [facility]
--- NOTE | 2023-01-01 00:25 | RAD_ITS ---
INDICATION: sob EXAMINATION/TECHNIQUE: X-RAY - portable upright AP chest x-ray COMPARISON: 12/20/2022 FINDINGS: LINES/DEVICES: None. LUNGS: Bibasilar airspace opacities with right basilar consolidation and probable pleural effusion. MEDIASTINUM AND CARDIOVASCULAR STRUCTURES: Stable enlargement of the cardiac silhouette. BONES AND SOFT TISSUES: Unremarkable. RAD/Chest 1 View (Portable) IMPRESSION: Cardiomegaly with bilateral infiltrates, right consolidation and probable pleural effusion. Findings suspicious for pneumonia. Recommend short-term follow-up to complete resolution. Electronically Signed: Derik Rowan MD at 0:50 EDT ,
[2023-01-01] MEDS: Furosemide 40 MG/4 ML Vial IV ×2 (00:26→09:43)
[2023-01-01] MEDS: Nitroglycerin SL (ED/IMG/CATH) 0.4 MG TABLET SL (00:34)
[2023-01-01 00:35] LABS: Absolute Lymphocyte Count 0.34 X10^3/uL (0.83-4.51); Absolute Neutrophil Count 12.8 X10^3/uL (2.0-7.7); Basophil# 0.08 X10^3/uL; Basophil% 0.5 % (0-1); Differential Indicated SCAN CRITERIA MET; Eosinophil# 0.27 X10^3/uL; Eosinophils% 1.8 % (0-5); Hemoglobin 10.7 g/dL (13.0-16.5); Lymphocyte # 0.34 X10^3/ul (0.83-4.51); Lymphocyte % 2.3 % (19-41); Mean Corp Hgb Conc 29.7 g/dL (32-36); Mean Corpuscular Hgb 26.8 pg (27.0-32.0); Mean Corpuscular Volume 90.2 fL (80-94); Monocyte# 1.23 X10^3/uL; Monocyte% 8.3 % (0-10); NRBC Flagged by Analyzer 0 % (0-5); Neutrophil # 12.79 X10^3/uL (2.7-7.7); Neutrophil % 86.8 % (47-70); POSITIVE COUNT YES; POSITIVE DIFFERENTIAL YES; RBC Distribution Width CV 16.8 % (11.6-14.6); RBC Distribution Width SD 56.5 fl (35.1-43.9); Red Blood Count 3.99 M/mm3 (4.6-6.2); White Blood Count 14.8 K/mm3 (4.4-11.0)
[2023-01-01] MEDS: Nitroglycerin Oint 1 INCH PACKET TD (00:35)
[2023-01-01] MEDS: Ipratropium/Albuterol Sulfate 3 ML AMPUL.NEB INHALATION (00:38)
[2023-01-01 00:54] LABS: Anion Gap 8 (5-15); BUN 91 mg/dL (7-18); BUN/Creat Ratio 22.6 RATIO (10-20); Calcium,Total 8.5 mg/dL (8.5-10.1); Chloride 112 mmol/L (98-107); Creatinine, Serum 4.02 mg/dL (0.70-1.30); EST Glomerular Filtration Rate 17 mL/min (>60); Est Glom Filt Rate - Afr Amer 20 mL/min (>60); Estimated Creatinine Clearance 22.37 ml/min; Glucose 181 mg/dL (74-106); Potassium 4.3 mmol/L (3.5-5.1); Sodium Level 141 mmol/L (136-145); Troponin-I HS 42 pg/mL (3.0-78.0)
[2023-01-01 00:55] LABS: BNP,B-Type NATRIURETIC PEPTIDE 598.2 pg/mL (0-100)
[2023-01-01 01:01] LABS: Differential Comment SCANNED
[2023-01-01 01:02] LABS: Mean Platelet Vol. 10.8 fl (6.2-12.0); Platelet Estimate ADEQUATE (ADEQ)
[2023-01-01] MEDS: levoFLOXacin IV 750 MG/150 ML BAG 100 MG IV (01:07)
--- NOTE | 2023-01-01 01:16 | PCM.HP.STD ---
HPI - General General Date of Admission: 01/01/23 Date of Service: 01/01/23 Chief Complaint: Heart failure exacerbation HPI Narrative YOSEPH PERSAUD, is a 52 M with history of HFrEF, ischemic cardiomyopathy, CKD stage IV, morbid obesity, type 2 diabetes and hypertension who presented to [facility] ED on 01/01/2023 with worsening shortness of breath. Patient seen at bedside in the ED, son present. Patient requiring 8 L nasal cannula, satting in low 90s, no increased work of breathing noted. Otherwise sitting comfortably in bed, conversing normally, no acute distress. Patient states that he has steadily developed worsening shortness of breath over the last 3 to 4 days. Has been taking his home medications as prescribed. Reports good urine output over that timeframe. Has had a mild cough with whitish sputum production. Otherwise denies any fevers or chills. Denies any chest pain. Denies any abdominal pain. No other acute concerns. Vitals in ED notable for satting in low 90s on 8 L nasal cannula, hypertensive to 170s to 180s systolic, otherwise stable. Labs notable for WBC count 14.3, hemoglobin 10.6, BUN 87, creatinine 3.94, sodium 141, potassium 4.2, BNP 598, procalcitonin 0.23. Chest x-ray on admit shows cardiomegaly with bilateral infiltrates, right consolidation and probable pleural effusion. [facility] Medical History CORA (acute kidney injury) Anemia in chronic illness Atherosclerotic heart disease of [place] coronary artery without angina pectoris Carotid artery stenosis Chronic diastolic (congestive) heart failure Chronic kidney disease Chronic kidney disease CKD stage 4 due to type 2 diabetes mellitus Coronary artery disease Depression Diabetes mellitus Diabetes mellitus with diabetic polyneuropathy Diabetes mellitus, type II Diabetic infection of left foot Edema, peripheral Essential (primary) hypertension History of non-ST elevation myocardial infarction (NSTEMI) (08/25/22) History of stress test Hyperlipidemia Hyperlipidemia Hypertension Hypertension Hypomagnesemia Infected sebaceous cyst Insulin dependent diabetes mellitus Ischemic cardiomyopathy (06/2013) Left ventricular systolic dysfunction (LVSD) Non-pressure 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 of bone Non-pressure chronic ulcer of other part of left foot with fat layer exposed Non-pressure chronic ulcer of other part of left foot with fat layer exposed Obesity Other acute osteomyelitis, right ankle and foot Paresthesias Partial nontraumatic amputation of right foot Pneumonia due to COVID-19 virus (03/14/20) Postoperative cardiac arrest following non-cardiac surgery Type 2 diabetes mellitus with diabetic neuropathy, unspecified Type 2 diabetes mellitus with diabetic polyneuropathy Type 2 diabetes mellitus with diabetic polyneuropathy Type 2 diabetes mellitus with foot ulcer Ulcer of right foot with fat layer exposed Venous insufficiency Venous insufficiency of both lower extremities Home Medications aspirin 81 mg chewable tablet 81 mg PO DAILY@0800 heart 09/28/14 [History Last Taken 12/20/18] atorvastatin 80 mg tablet 80 mg PO QHS cholesterol 30 days #30 tabs 06/21/21 [Rx Last Taken Unknown] clopidogrel 75 mg tablet 75 mg PO DAILY Blood Thinner 30 days #30 tabs 06/21/21 [Rx Last Taken Unknown] insulin glargine 100 unit/mL (3 mL) subcutaneous pen (Lantus Solostar U-100 Insulin) 20 unit (0.2 mL) subcut BID Diabetes 30 days #12 mL 06/21/21 [Rx Last Taken Unknown] isosorbide mononitrate 60 mg tablet,extended release 24 hr 60 mg PO DAILY Heart 30 days #30 tabs 01/12/22 [Rx Last Taken Unknown] ezetimibe 10 mg tablet 10 mg PO DAILY cholesterol 04/07/22 [History Last Taken Unknown] carvedilol 25 mg tablet 25 mg PO BID blood pressure #180 tabs 05/25/22 [Rx Last Taken Unknown] amlodipine 5 mg tablet 5 mg PO DAILY blood pressure 06/05/22 [History Last Taken Unknown] ferrous sulfate 325 mg (65 mg iron) tablet (FeroSul) 325 mg PO BID supplement #60 tabs 06/08/22 [Rx Last Taken Unknown] doxycycline monohydrate 100 mg capsule 100 mg PO BID infection #84 caps 08/29/22 [Rx Last Taken Unknown] furosemide 20 mg tablet 20 mg PO DAILY #30 tabs 12/23/22 [Rx Last Taken Unknown] ergocalciferol (vitamin D2) 1,250 mcg (50,000 unit) capsule (Vitamin D2) 50,000 unit PO QWEEK 01/01/23 [History Last Taken Unknown] Allergy/AdvReac Type Severity Reaction Status Date / Time lisinopril AdvReac Intermediate Cough Verified 12/31/22 23:48 losartan AdvReac Intermediate cough Verified 12/31/22 23:48 Family History Father , Age 57 from [place] Myocardial infarction CAD (coronary artery disease) Sudden cardiac Mother Sick sinus syndrome Sister Diabetes Other History of coronary artery stent placement History of non-ST elevation myocardial infarction (NSTEMI) Surgical History H/O cardiac catheterization History of coronary artery stent placement (08/28/22) Social History household members: none Smoking Status: Never smoker alcohol intake: current alcohol intake frequency: holidays/special occasions only substance use type: does not use caffeine: Yes Type: carbonated beverages Number of servings: 2 ROS Constitutional Constitutional: Reports fatigue; Denies change in weight, chills or fever(s) Eyes Eyes: Denies change in vision Cardiovascular Cardiovascular: Reports dyspnea on exertion, edema and orthopnea; Denies chest pain, lightheadedness or rapid heart rate Respiratory/Chest Respiratory/Chest: Reports productive cough and shortness of breath with exertion; Denies shortness of breath at rest or wheezing Gastrointestinal Gastrointestinal: Denies abdominal pain Musculoskeletal Musculoskeletal: Denies back pain Vital Signs Vital Signs Vital Signs: 12/31/22 23:43 12/31/22 23:48 12/31/22 23:49 Temperature 99.1 F Temperature Source Temporal Pulse Rate 102 H Respiratory Rate 32 H Respiratory Pattern Normal Blood Pressure 190/82 H Blood Pressure Mean 118 Pulse Ox 82 88 Oxygen Delivery Method Nasal Cannula Nasal Cannula Oxygen Flow Rate (L/min) 2 4 12/31/22 23:51 12/31/22 23:58 01/01/23 00:07 Temperature Temperature Source Pulse Rate Respiratory Rate Respiratory Pattern Blood Pressure Blood Pressure Mean Pulse Ox 88 86 91 Oxygen Delivery Method Nasal Cannula Nasal Cannula Nasal Cannula Oxygen Flow Rate (L/min) 8 6 8 01/01/23 00:34 01/01/23 00:35 01/01/23 00:40 Temperature Temperature Source Pulse Rate 97 97 95 Respiratory Rate 30 H Respiratory Pattern Tachypnea Blood Pressure 185/73 H 185/73 H Blood Pressure Mean Pulse Ox Oxygen Delivery Method Oxygen Flow Rate (L/min) 01/01/23 00:41 01/01/23 01:09 01/01/23 00:00 Temperature Temperature Source Pulse Rate 92 102 H Respiratory Rate 36 H Respiratory Pattern Blood Pressure 188/84 H Blood Pressure Mean 112 Pulse Ox 95 Oxygen Delivery Method Nasal Cannula Nasal Cannula Oxygen Flow Rate (L/min) 8 8 01/01/23 00:45 Temperature Temperature Source Pulse Rate 95 Respiratory Rate 27 H Respiratory Pattern Blood Pressure 181/72 H Blood Pressure Mean 96 Pulse Ox Oxygen Delivery Method Oxygen Flow Rate (L/min) Weight Weight: 143.8 kg Body Mass Index (BMI) 44.1 Physical Exam Const alert and oriented x3 Constitutional Narrative: Pleasant male, morbidly obese, satting in low 90s on 8 L nasal cannula, mild increased work of breathing noted. Otherwise sitting comfortably in bed, conversing normally, no acute distress. General Appearance: cooperative and comfortable HEENT normocephalic, head/scalp atraumatic, hearing grossly normal bilaterally, nasal mucous membranes and turbinates normal and moist oral mucous membranes Eyes PERRL, EOMs intact bilaterally and conjunctivae normal Neck full ROM, no lymphadenopathy and supple Lymph Lymphatic: no lymphadenopathy noted Chest inspection of chest normal Resp Resp Narrative: Decreased breath sounds bilaterally, worse on right. Mild rhonchi noted bilaterally. No wheezing noted. Cardio regular rate, regular rhythm, no murmurs and peripheral pulses 2+ throughout GI normal to inspection, nondistended, normoactive bowel sounds, soft to palpation, non-tender and non-distended Back/Spine normal ROM Extremity normal to inspection and full ROM Extremity Narrative: Mild bilateral lower extremity edema noted. Skin no rashes or lesions noted Psych mental status grossly normal Results Lab / Micro Data 01/01/23 02:45 01/01/23 02:45 Labs: Laboratory Results - last 24 hr 01/01/23 00:22: WBC 14.8 H, RBC 3.99 L, Hgb 10.7 L, Hct 36.0 L, MCV 90.2, MCH 26.8 L, MCHC 29.7 L, RDW Std Deviation 56.5 H, RDW Coeff of Rajendra 16.8 H, Plt Count TNP, MPV 10.8, Immature Gran % (Auto) 0.300, Neut % (Auto) 86.8 H, Lymph % (Auto) 2.3 L, [place] % (Auto) 8.3, Eos % (Auto) 1.8, Baso % (Auto) 0.5, Absolute Neuts (auto) 12.8 H, Absolute Lymphs (auto) 0.34 L, Nucleated RBC % 0, Differential Comment SCANNED, Platelet Estimate ADEQUATE, Sodium 141, Potassium 4.3, Chloride 112 H, Carbon Dioxide 21.0, Anion Gap 8, BUN 91 H, Creatinine 4.02 H, Estim Creat Clear Calc 22.37, Est GFR (MDRD) Af Amer 20 L, Est GFR (MDRD) Non-Af 17 L, BUN/Creatinine Ratio 22.6 H, Glucose 181 H, Calcium 8.5, Troponin I High Sens 42, B-Natriuretic Peptide 598.2 H Rhythm Strip Rhythm Strip: Sinus Tach Rate: 102 Ectopy: None Radiology Impression Chest X-Ray 01/01/23 00:25 IMPRESSION: Cardiomegaly with bilateral infiltrates, right consolidation and probable pleural effusion. Findings suspicious for pneumonia. Recommend short-term follow-up to complete resolution. Electronically Signed: Derik Rowan MD at 0:50 EDT , Assessment & Plan Assessment/Plan (1) Acute exacerbation of CHF (congestive heart failure): PLAN: Plan Patient is a 52-year-old male with history of HFrEF, ischemic cardiomyopathy, CKD stage IV, morbid obesity, type 2 diabetes and hypertension who presented to [facility] ED on 01/01/2023 with worsening shortness of breath. 1. Acute exacerbation of heart failure with reduced ejection fraction, acute on chronic hypoxic respiratory failure Presented with worsening shortness of breath over several days. Chest x-ray on admit shows cardiomegaly with bilateral infiltrates, right consolidation and probable pleural effusion; notably has significantly worsened volume overload in comparison to chest x-ray from 12/20/2022. BNP 598. Creatinine at baseline as noted below. Had recent hospitalization from 12/20 through 12/23 for a similar presentation. Was found to have an NSTEMI at that time. Cardiology followed. Echo showed an EF of 35% with moderate global hypokinesis of the LV. Stress test showed evidence of ischemic cardiomyopathy that was unchanged from previous. Cardiology recommendation was for medical management. Nephrology also followed on that admission as noted below. Patient was discharged home on p.o. Lasix 20 mg daily, notably was not a candidate for ACEi or ARB given CKD. Was wearing home 2 L nasal cannula at night since discharge, requiring up to 8 L nasal cannula in ED. ? Admit under inpatient status to PCU. Cardiology consulted. Given 1 dose of IV Lasix 40 mg in the ED. Will start on IV Lasix 40 mg twice daily. Monitor strict I's and O's. Daily weights. Daily BMP. Wean supplemental oxygen as able, goal O2 saturation greater than 90%. 2. CKD stage IV Follows with nephrology outpatient. Nephrology also followed during most recent admission. CKD is notably secondary to longstanding history of diabetes. Creatinine 3.94 on admit, baseline creatinine around 3.7-4.1. Patient reports good urine output since recent discharge. ? Nephrology consulted. IV Lasix for volume overload as noted above. Monitor urine output closely. 3. Concern for community-acquired pneumonia ? Mild to moderate concern for pneumonia given white count 14, chest x-ray findings on admit as noted above. Procalcitonin 0.23. Continue IV Levaquin for now. Sputum culture, blood cultures, urine antigens, respiratory panel pending. Daily CBC. 4. History of ischemic cardiomyopathy, hypertension ? Continue home aspirin, Plavix, statin, Zetia, Coreg, Imdur, amlodipine. Cardiology consult and IV Lasix as noted above. Chronic medical conditions: ? Type 2 diabetes: Home regimen of Lantus 20 units twice daily. Glucose 183 on admit. We will start Lantus 15 units twice daily with sliding scale insulin here, adjust regimen as needed. ? Iron deficiency anemia: Continue home iron supplement. DVT prophylaxis: Heparin subcu CODE STATUS: Full code, verified Expected disposition: Home, TBD Total clinical time spent by myself addressing the patient's medical issues, reviewing all the data, and collaborating with patient's care team: 55 minutes. Charges/Coding Visit Charges Inpatient E&M: 26276 Init Hosp L2
[2023-01-01 03:12] LABS: Hematocrit 35.3 % (40-54); Hemoglobin 10.6 g/dL (13.0-16.5); Mean Corpuscular Hgb 27.7 pg (27.0-32.0); Mean Corpuscular Volume 92.2 fL (80-94); Mean Platelet Vol. 10.3 fl (6.2-12.0); Platelet Count 231 K/mm3 (150-450); RBC Distribution Width CV 16.9 % (11.6-14.6); Red Blood Count 3.83 M/mm3 (4.6-6.2); White Blood Count 14.3 K/mm3 (4.4-11.0)
[2023-01-01 03:23] LABS: Anion Gap 8 (5-15); BUN 87 mg/dL (7-18); BUN/Creat Ratio 22.1 RATIO (10-20); Calcium,Total 8.6 mg/dL (8.5-10.1); Chloride 113 mmol/L (98-107); Creatinine, Serum 3.94 mg/dL (0.70-1.30); EST Glomerular Filtration Rate 17 mL/min (>60); Est Glom Filt Rate - Afr Amer 21 mL/min (>60); Estimated Creatinine Clearance 22.83 ml/min; Glucose 183 mg/dL (74-106); Potassium 4.2 mmol/L (3.5-5.1); Sodium Level 141 mmol/L (136-145)
[2023-01-01 03:33] LABS: Procalcitonin 0.23 ng/mL (0.00-0.09)
[2023-01-01] MEDS: Carvedilol 25 MG Tablet PO ×3 (06:01→16:49)
[2023-01-01] MEDS: amLODIPine 5 MG Tablet PO ×2 (06:01→09:44)
[2023-01-01] MEDS: 0.9% Saline Lock 10 ML Syringe IV (06:02)
--- NOTE | 2023-01-01 07:25 | PN.HOSP_ITS ---
Reason for Visit Reason for Visit: Diagnoses Heart failure, unspecified (01/01/23) Objective Data Objective Data Vital Signs: Vital Signs Temp Pulse Resp BP Pulse Ox O2 Del Method O2 Flow Rate 97.4 F L 81 20 H 158/69 H 96 High Flow 7 01/01/23 04:45 01/01/23 04:45 01/01/23 04:45 01/01/23 06:00 01/01/23 04:45 01/01/23 04:45 01/01/23 04:45 Oxygen Flow Rate (L/min) 7 Oxygen Delivery Method High Flow Weight: 309 lb 8.464 oz Body Mass Index (BMI) 43.2 Intake & Output: Intake and Output for Last 24 Hours 12/30/22 12/31/22 01/01/23 23:59 23:59 23:59 Intake Total 270 / 270 Output Total 500 / 500 Balance -230 / -230 Lab / Micro Data 01/01/23 02:45 01/01/23 02:45 Labs: Laboratory Results - last 24 hr 01/01/23 00:22: WBC 14.8 H, RBC 3.99 L, Hgb 10.7 L, Hct 36.0 L, MCV 90.2, MCH 26.8 L, MCHC 29.7 L, RDW Std Deviation 56.5 H, RDW Coeff of Rajendra 16.8 H, Plt Count TNP, MPV 10.8, Immature Gran % (Auto) 0.300, Neut % (Auto) 86.8 H, Lymph % (Auto) 2.3 L, [place] % (Auto) 8.3, Eos % (Auto) 1.8, Baso % (Auto) 0.5, Absolute Neuts (auto) 12.8 H, Absolute Lymphs (auto) 0.34 L, Nucleated RBC % 0, Differential Comment SCANNED, Platelet Estimate ADEQUATE, Sodium 141, Potassium 4.3, Chloride 112 H, Carbon Dioxide 21.0, Anion Gap 8, BUN 91 H, Creatinine 4.02 H, Estim Creat Clear Calc 22.37, Est GFR (MDRD) Af Amer 20 L, Est GFR (MDRD) Non-Af 17 L, BUN/Creatinine Ratio 22.6 H, Glucose 181 H, Calcium 8.5, Troponin I High Sens 42, B-Natriuretic Peptide 598.2 H 01/01/23 02:39: Procalcitonin 0.23 H 01/01/23 02:45: WBC 14.3 H, RBC 3.83 L, Hgb 10.6 L, Hct 35.3 L, MCV 92.2, MCH 27.7, MCHC 30.0 L, RDW Std Deviation 58.0 H, RDW Coeff of Rajendra 16.9 H, Plt Count 231, MPV 10.3, Sodium 141, Potassium 4.2, Chloride 113 H, Carbon Dioxide 20.0 L, Anion Gap 8, BUN 87 H, Creatinine 3.94 H, Estim Creat Clear Calc 22.83, Est GFR (MDRD) Af Amer 21 L, Est GFR (MDRD) Non-Af 17 L, BUN/Creatinine Ratio 22.1 H, Glucose 183 H, Calcium 8.6 Micro: Microbiology 01/01/23 04:40 Urine, Clean Catch Legionella Antigen - Final 01/01/23 04:40 Urine, Clean Catch Streptococcus pneumoniae Antigen (M - Final 01/01/23 01:04 Nasal Secretion SARS-CoV-2 Antigen (Rapid) - Final Radiography Diagnostic Testing: Radiology Impression Chest X-Ray 01/01/23 00:25 IMPRESSION: Cardiomegaly with bilateral infiltrates, right consolidation and probable pleural effusion. Findings suspicious for pneumonia. Recommend short-term follow-up to complete resolution. Electronically Signed: Derik Rowan MD at 0:50 EDT Reading Location ID and State: [address] [place] [address] Tel , Service support , Rhythm Strip Rhythm Strip: Sinus Tach Rate: 102 Ectopy: None Physical Exam Narrative Patient is stated he had chest pain which was localized left-sided felt like sharp without radiation.He had 2 episodes and worse with coughing. General: Alert, Oriented x3, Cooperative, morbid obesity, BMI 43.2 kg/m? HEENT: Atraumatic, PERRLA, EOMI, Normocephalic Oral: Oral mucosa dry. No Gingival or Mucosal Lesions/ Ulcerations Neck: Supple, No JVD, Negative Carotid Bruits Lungs: Air entry diminished in bilateral lung bases. No crepitation/rhonchi Cardiovascular: Regular rate, Regular Rhythm, Normal S1, Normal S2, solid, right second ICS. Abdomen: Bowel Sounds Present, Soft, Non Tender, Non-Distended : No renal angle tenderness. No suprapubic tenderness. Extremities: Pitting chronic bilateral 2+ edema, Capillary Refill Less than 3 Seconds Skin: No rashes, No breakdown Musculoskeletal: No Tenderness to Palpation of Joints or Extremities Neurological: Cranial nerves II-XII grossly intact, DTR 2+/4. No acute focal neurological deficit. Psych/Mental Status: Normal Affect, Appropriate. Assessment & Plan Assessment/Plan (1) Acute exacerbation of CHF (congestive heart failure): QUALIFIERS: Heart failure type: systolic Qualified Code(s): I50.2 3 - Acute on chronic systolic (congestive) heart failure PLAN: Plan Patient is a 52-year-old male with was on admitted on 01/01/2023 on the monitored bed with worsening shortness of breath and severe hypoxia requiring 8 L/min in ED for about 3-4 days predominantly dyspnea with exertion, cough with the whitish sputum production. He was discharged from the hospital last week from CHF exacerbation with recent O2 at night. No fever. Denies chest pain or discomfort. 1. Acute exacerbation of heart failure with reduced ejection fraction, acute on chronic hypoxic respiratory failure Chest x-ray on admit shows cardiomegaly with bilateral infiltrates, right consolidation and probable pleural effusion; notably has significantly worsened volume overload in comparison to chest x-ray from 12/20/2022. BNP 598. Creatinine at baseline as noted below. Had recent hospitalization from 12/20 through 12/23 for a similar presentation. Was found to have an NSTEMI at that time. Cardiology followed. Echo showed an EF of 35% with moderate global hypokinesis of the LV. Stress test showed evidence of ischemic cardiomyopathy that was unchanged from previous. Cardiology recommendation was for medical management. Patient was discharged home on p.o. Lasix 20 mg daily, notably was not a candidate for ACEi or ARB given CKD. Was wearing home 2 L nasal cannula at night since discharge, requiring up to 8 L nasal cannula in ED. ?Heart failure core measures including intake and output, fluid restriction less than 1500 mL, daily weight monitoring, kidney and electrolytes monitoring. Lasix 40 mg IV twice daily. Rest as mentioned. Continue oxygen to keep pulse ox 90% 2. CKD stage IV Follows with nephrology total Raffy. CKD is notably secondary to longstanding history of diabetes, heart failure, hypertension or recently diagnosed plasma cell disorder. Creatinine 3.94 on admit, baseline creatinine around 3.7-4.1. Patient reports good urine output since recent discharge. ? Nephrology consulted. On IV diuretic Lasix as mentioned above. Patient also has suspected myeloma. Significantly elevated [place] and lambda light chain. Patient follows oncologist Dr. Heard. Had bone marrow biopsy which was unfortunately inconclusive outpatient had hematoma at the biopsy site. It is unclear whether patient had MGUS or multiple myeloma. 3. Mild to moderate concern for community-acquired pneumonia: Patient has cough with whitish sputum production, leukocytosis and chest x-ray findings admission above. Procalcitonin 0.23. Continue IV Levaquin for now. Sputum culture, blood cultures, urine antigens, respiratory panel pending. Monitor daily CBC. Chest x-ray individually reviewed and looks more fluid overload with right basilar effusion/atelectasis although reported right basilar consolidation. 4. History of ischemic cardiomyopathy, hypertension ? Continue home aspirin, Plavix, statin, Zetia, Coreg, Imdur, amlodipine. Cardiology consult and IV Lasix as noted above. Chronic medical conditions: ? Type 2 diabetes: Home regimen of Lantus 20 units twice daily. Glucose 183 on admit. We will start Lantus 15 units twice daily with sliding scale insulin here, adjust regimen as needed. ? Iron deficiency anemia: Continue home iron supplement. DVT prophylaxis: Heparin subcu CODE STATUS: Full code, verified Total time of the visit including total time spent in counseling or coordination of care, (more than 50% of the total time, spent in obtaining medical information from nurses and other ancillary care providers,explaining to the pa tient about labs, imaging, diagnosis and management of active complex medical conditions), discussion with paper plate machine tender and machine fastener, review of labs and imaging and clinical update given to the patient and his son near the bedside is 40 minutes. Charges/Coding Visit Charges Inpatient E&M: 77056 Subs Hosp L3
[2023-01-01 08:11] LABS: Magnesium 2.2 mg/dL (1.6-2.6); Phosphorus 4.4 mg/dL (2.5-4.9)
[2023-01-01 08:27] LABS: Bedside Glucose 149 mg/dL (74-106)
[2023-01-01] MEDS: Aspirin 81 MG TAB.CHEW PO (09:42)
[2023-01-01] MEDS: Insulin Glargine-YFGN 100 UNIT/ML Pen 15 UNIT SC ×2 (09:43→22:20)
[2023-01-01] MEDS: Ferrous Sulfate 325 MG Tablet PO (09:43)
[2023-01-01] MEDS: Isosorbide Mononitrate 60 MG Tablet PO (09:43)
[2023-01-01] MEDS: Heparin Injection (Vial) 5,000 UNIT/ML VIAL 5000 UNIT SC ×2 (09:43→22:18)
[2023-01-01] MEDS: Ezetimibe 10 MG Tablet PO (09:44)
[2023-01-01] MEDS: Clopidogrel Bisulfate 75 MG Tablet PO (09:44)
[2023-01-01 12:09] LABS: Bedside Glucose 128 mg/dL (74-106)
--- NOTE | 2023-01-01 12:09 | CON.PCM.RE_ITS ---
Assessment & Plan Assessment/Plan (1) CKD (chronic kidney disease), stage IV: PLAN: Known history of CKD stage IV, baseline creatinine recently has been between 3.5-4.0. Likely due to a combination of diabetes, hypertension, heart failure, newly diagnosed plasma cell disorder. This is his second admission within the last 1 month with fluid overload. He says he has been on diuretics. Chest x-ray looks fairly wet. Interesting BNP is only about 600, despite having a creatinine of 4.0. We will check with primary service if there is alternative diagnosis such as pneumonia. Subjectively he feels better with IV Lasix. Continue IV Lasix for now. Most likely he will need to start dialysis due to repeated hospitalizations with volume overload. Coronary artery disease, congestive heart failure. He is s/p coronary angioplasty in August. Repeat stress test earlier this month did not show any reversible ischemia. At that time it was decided to continue medical management. Of note he did go off Plavix for about 5 days for bone marrow biopsy. He still has significant hematoma at the biopsy site. Will wait for cardiology opinion Suspected myeloma. Significantly elevated kappa/lambda light chain. Sees hematology. Bone marrow unfortunately was inconclusive. Flow cytometry did confirm monoclonality. At a minimum he will have monoclonal gammopathy of undetermined significance versus full-blown multiple myeloma. He was originally scheduled for a CT-guided bone marrow biopsy here at [facility]. (2) Acute exacerbation of CHF (congestive heart failure): QUALIFIERS: Heart failure type: systolic Qualified Code(s): I50.23 - Acute on chronic systolic (congestive) heart failure HPI Consult Data Date of Consult: 01/01/23 HPI Narrative Reason for Consultation: CKD stage IV, CHF HPI Narrative: YOSEPH PERSAUD, is a 52 M who presents to the hospital with sudden onset shortness of breath, hypertension. He is well-known to me. He has had several hospitalizations within the last few months. Medical history significant for Coronary artery disease, congestive heart failure with reduced ejection fraction. Last echocardiogram with ejection fraction of 35%. He did have a coronary angiogram with stent placement in August. He had a stress test last week which did not show any reversible ischemia. No intervention was done due to negative stress test. CKD stage IV, close to stage V. Likely due to combination of diabetes, heart failure possibly myeloma. Suspected myeloma. Positive serum protein electrophoresis. Reading/lambda light chain assay was elevated with a ratio of 14. He sees Dr. Heard here in town. He had a bone marrow biopsy done few weeks ago. Reviewed results from [facility]. The flow cytometry confirmed the presence of monoclonal plasma cells but bone marrow biopsy was inconclusive. He was originally scheduled for a CT-guided biopsy here at the hospital. Of note he had to stay off Plavix for about 5 days in view of bone marrow biopsy. He still has a significant bruise around the bone marrow biopsy site. He says he has been taking all his diuretics and other medications. Moderate amount of lower extremity edema which he thinks is not new. Appetite is fair. [facility] Medical History CORA (acute kidney injury) Anemia in chronic illness Atherosclerotic heart disease of [place] coronary artery without angina pectoris Carotid artery stenosis Chronic diastolic (congestive) heart failure Chronic kidney disease Chronic kidney disease CKD stage 4 due to type 2 diabetes mellitus Coronary artery disease Depression Diabetes mellitus Diabetes mellitus with diabetic polyneuropathy Diabetes mellitus, type II Diabetic infection of left foot Edema, peripheral Essential (primary) hypertension History of non-ST elevation myocardial infarction (NSTEMI) (08/25/22) History of stress test Hyperlipidemia Hyperlipidemia Hypertension Hypertension Hypomagnesemia Infected sebaceous cyst Insulin dependent diabetes mellitus Ischemic cardiomyopathy (06/2013) Left ventricular systolic dysfunction (LVSD) Non-pressure 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 of bone Non-pressure chronic ulcer of other part of left foot with fat layer exposed Non-pressure chronic ulcer of other part of left foot with fat layer exposed Obesity Other acute osteomyelitis, right ankle and foot Paresthesias Partial nontraumatic amputation of right foot Pneumonia due to COVID-19 virus (03/14/20) Postoperative cardiac arrest following non-cardiac surgery Type 2 diabetes mellitus with diabetic neuropathy, unspecified Type 2 diabetes mellitus with diabetic polyneuropathy Type 2 diabetes mellitus with diabetic polyneuropathy Type 2 diabetes mellitus with foot ulcer Ulcer of right foot with fat layer exposed Venous insufficiency Venous insufficiency of both lower extremities Home Medications aspirin 81 mg chewable tablet 81 mg PO DAILY@0800 heart 09/28/14 [History Last Taken 12/20/18] atorvastatin 80 mg tablet 80 mg PO QHS cholesterol 30 days #30 tabs 06/21/21 [Rx Last Taken Unknown] clopidogrel 75 mg tablet 75 mg PO DAILY Blood Thinner 30 days #30 tabs 06/21/21 [Rx Last Taken Unknown] insulin glargine 100 unit/mL (3 mL) subcutaneous pen (Lantus Solostar U-100 Insulin) 20 unit (0.2 mL) subcut BID Diabetes 30 days #12 mL 06/21/21 [Rx Last Taken Unknown] isosorbide mononitrate 60 mg tablet,extended release 24 hr 60 mg PO DAILY Heart 30 days #30 tabs 01/12/22 [Rx Last Taken Unknown] ezetimibe 10 mg tablet 10 mg PO DAILY cholesterol 04/07/22 [History Last Taken Unknown] carvedilol 25 mg tablet 25 mg PO BID blood pressure #180 tabs 05/25/22 [Rx Last Taken Unknown] amlodipine 5 mg tablet 5 mg PO DAILY blood pressure 06/05/22 [History Last Taken Unknown] ferrous sulfate 325 mg (65 mg iron) tablet (FeroSul) 325 mg PO BID supplement #60 tabs 06/08/22 [Rx Last Taken Unknown] doxycycline monohydrate 100 mg capsule 100 mg PO BID infection #84 caps 08/29/22 [Rx Last Taken Unknown] furosemide 20 mg tablet 20 mg PO DAILY #30 tabs 12/23/22 [Rx Last Taken Unknown] ergocalciferol (vitamin D2) 1,250 mcg (50,000 unit) capsule (Vitamin D2) 50,000 unit PO QWEEK 01/01/23 [History Last Taken Unknown] Allergy/AdvReac Type Severity Reaction Status Date / Time lisinopril AdvReac Intermediate Cough Verified 12/31/22 23:48 losartan AdvReac Intermediate cough Verified 12/31/22 23:48 Family History Father , Age 57 from [place] Myocardial infarction CAD (coronary artery disease) Sudden cardiac Mother Sick sinus syndrome Sister Diabetes Other History of coronary artery stent placement History of non-ST elevation myocardial infarction (NSTEMI) Surgical History H/O cardiac catheterization History of coronary artery stent placement (08/28/22) Social History household members: none Smoking Status: Never smoker alcohol intake: current alcohol intake frequency: holidays/special occasions only substance use type: does not use caffeine: Yes Type: carbonated beverages Number of servings: 2 ROS ROS Narrative Negative except above Physical Exam Narrative Alert awake oriented x 3 no obvious distress no pallor no icterus no JVD s1s2 no murmurs lungs clear abdomen soft no organomegaly no edema no cyanosis Lab / Micro Data 01/01/23 02:45 01/01/23 02:45 Labs: Laboratory Results - last 24 hr 01/01/23 00:22: WBC 14.8 H, RBC 3.99 L, Hgb 10.7 L, Hct 36.0 L, MCV 90.2, MCH 26.8 L, MCHC 29.7 L, RDW Std Deviation 56.5 H, RDW Coeff of Rajendra 16.8 H, Plt Count TNP, MPV 10.8, Immature Gran % (Auto) 0.300, Neut % (Auto) 86.8 H, Lymph % (Auto) 2.3 L, [place] % (Auto) 8.3, Eos % (Auto) 1.8, Baso % (Auto) 0.5, Absolute Neuts (auto) 12.8 H, Absolute Lymphs (auto) 0.34 L, Nucleated RBC % 0, Differential Comment SCANNED, Platelet Estimate ADEQUATE, Sodium 141, Potassium 4.3, Chloride 112 H, Carbon Dioxide 21.0, Anion Gap 8, BUN 91 H, Creatinine 4.02 H, Estim Creat Clear Calc 22.37, Est GFR (MDRD) Af Amer 20 L, Est GFR (MDRD) Non-Af 17 L, BUN/Creatinine Ratio 22.6 H, Glucose 181 H, Calcium 8.5, Troponin I High Sens 42, B-Natriuretic Peptide 598.2 H 01/01/23 02:39: Procalcitonin 0.23 H 01/01/23 02:45: WBC 14.3 H, RBC 3.83 L, Hgb 10.6 L, Hct 35.3 L, MCV 92.2, MCH 27.7, MCHC 30.0 L, RDW Std Deviation 58.0 H, RDW Coeff of Rajendra 16.9 H, Plt Count 231, MPV 10.3, Sodium 141, Potassium 4.2, Chloride 113 H, Carbon Dioxide 20.0 L, Anion Gap 8, BUN 87 H, Creatinine 3.94 H, Estim Creat Clear Calc 22.83, Est GFR (MDRD) Af Amer 21 L, Est GFR (MDRD) Non-Af 17 L, BUN/Creatinine Ratio 22.1 H, Glucose 183 H, Calcium 8.6, Phosphorus 4.4, Magnesium 2.2 01/01/23 08:10: POC Glucose 149 H Micro: Microbiology 01/01/23 04:20 Mucosa - Nasopharyngeal Respiratory Panel (PCR) - Final 01/01/23 04:40 Urine, Clean Catch Legionella Antigen - Final 01/01/23 04:40 Urine, Clean Catch Streptococcus pneumoniae Antigen (M - Final 01/01/23 01:04 Nasal Secretion SARS-CoV-2 Antigen (Rapid) - Final Rhythm Strip Rhythm Strip: Sinus Tach Rate: 102 Ectopy: None Radiology Impression Chest X-Ray 01/01/23 00:25 IMPRESSION: Cardiomegaly with bilateral infiltrates, right consolidation and probable pleural effusion. Findings suspicious for pneumonia. Recommend short-term follow-up to complete resolution. Electronically Signed: Derik Rowan MD at 0:50 EDT ,
--- NOTE | 2023-01-01 14:52 | CON.PCM.CA_ITS ---
Assessment & Plan Assessment/Plan (1) Pneumonia: PLAN: Chest x-ray shows consolidation. Treat as per up internal medicine. (2) Acute exacerbation of CHF (congestive heart failure): QUALIFIERS: Heart failure type: systolic Qualified Code(s): I50.23 - Acute on chronic systolic (congestive) heart failure PLAN: Agree with diuresis. We will check Doppler ultrasound of renal arteries to rule out renal artery stenosis. (3) Coronary artery disease: PLAN: Continue medical management. Beta-blockers. Statins. Aspirin. Clopidogrel nitrates (4) Hypertension: PLAN: Continue current medications. (5) CKD stage 4 due to type 2 diabetes mellitus: PLAN: As per internal medicine. HPI Consult Data Date of Consult: 01/01/23 HPI Narrative Reason for Consultation: Congestive heart failure HPI Narrative: This gentleman has past medical history significant for ischemic cardiomyopathy, congestive heart failure, coronary artery disease, chronic kidney disease, hypertension, diabetes mellitus and dyslipidemia. He was only recently admitted to the hospital with congestive heart failure. After discharge, he apparently was doing all right when last night he started feeling short of breath. Positive cough. Per patient, he had whitish sputum. Per him, his heart rate was elevated. With increased heart rate, he had chest pain as well. I denies any fevers or chills. Patient was noted to be hypertensive on presentation with systolic in the 180s. Chest x-ray showed cardiomegaly. Right-sided consolidation. [facility], [facility] Medical History (Updated 01/01/23 @ 14:[address] Raheem Dela Cruz MD) CROA (acute kidney injury) Anemia in chronic illness Atherosclerotic heart disease of [place] coronary artery without angina pectoris Carotid artery stenosis Chronic diastolic (congestive) heart failure Chronic kidney disease Chronic kidney disease CKD stage 4 due to type 2 diabetes mellitus Coronary artery disease Depression Diabetes mellitus Diabetes mellitus with diabetic polyneuropathy Diabetes mellitus, type II Diabetic infection of left foot Edema, peripheral Essential (primary) hypertension History of non-ST elevation myocardial infarction (NSTEMI) (08/25/22) History of stress test Hyperlipidemia Hyperlipidemia Hypertension Hypertension Hypomagnesemia Infected sebaceous cyst Insulin dependent diabetes mellitus Ischemic cardiomyopathy (06/2013) Left ventricular systolic dysfunction (LVSD) Non-pressure 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 of bone Non-pressure chronic ulcer of other part of left foot with fat layer exposed Non-pressure chronic ulcer of other part of left foot with fat layer exposed Obesity Other acute osteomyelitis, right ankle and foot Paresthesias Partial nontraumatic amputation of right foot Pneumonia due to COVID-19 virus (03/14/20) Postoperative cardiac arrest following non-cardiac surgery Type 2 diabetes mellitus with diabetic neuropathy, unspecified Type 2 diabetes mellitus with diabetic polyneuropathy Type 2 diabetes mellitus with diabetic polyneuropathy Type 2 diabetes mellitus with foot ulcer Ulcer of right foot with fat layer exposed Venous insufficiency Venous insufficiency of both lower extremities Home Medications aspirin 81 mg chewable tablet 81 mg PO DAILY@0800 heart 09/28/14 [History Last Taken 12/20/18] atorvastatin 80 mg tablet 80 mg PO QHS cholesterol 30 days #30 tabs 06/21/21 [Rx Last Taken Unknown] clopidogrel 75 mg tablet 75 mg PO DAILY Blood Thinner 30 days #30 tabs 06/21/21 [Rx Last Taken Unknown] insulin glargine 100 unit/mL (3 mL) subcutaneous pen (Lantus Solostar U-100 Insulin) 20 unit (0.2 mL) subcut BID Diabetes 30 days #12 mL 06/21/21 [Rx Last Taken Unknown] isosorbide mononitrate 60 mg tablet,extended release 24 hr 60 mg PO DAILY Heart 30 days #30 tabs 01/12/22 [Rx Last Taken Unknown] ezetimibe 10 mg tablet 10 mg PO DAILY cholesterol 04/07/22 [History Last Taken Unknown] carvedilol 25 mg tablet 25 mg PO BID blood pressure #180 tabs 05/25/22 [Rx Last Taken Unknown] amlodipine 5 mg tablet 5 mg PO DAILY blood pressure 06/05/22 [History Last Taken Unknown] ferrous sulfate 325 mg (65 mg iron) tablet (FeroSul) 325 mg PO BID supplement #60 tabs 06/08/22 [Rx Last Taken Unknown] doxycycline monohydrate 100 mg capsule 100 mg PO BID infection #84 caps 08/29/22 [Rx Last Taken Unknown] furosemide 20 mg tablet 20 mg PO DAILY #30 tabs 12/23/22 [Rx Last Taken Unknown] ergocalciferol (vitamin D2) 1,250 mcg (50,000 unit) capsule (Vitamin D2) 50,000 unit PO QWEEK 01/01/23 [History Last Taken Unknown] Allergy/AdvReac Type Severity Reaction Status Date / Time lisinopril AdvReac Intermediate Cough Verified 12/31/22 23:48 losartan AdvReac Intermediate cough Verified 12/31/22 23:48 Family History Father , Age 57 from [place] Myocardial infarction CAD (coronary artery disease) Sudden cardiac Mother Sick sinus syndrome Sister Diabetes Other History of coronary artery stent placement History of non-ST elevation myocardial infarction (NSTEMI) Surgical History H/O cardiac catheterization History of coronary artery stent placement (08/28/22) Social History household members: none Smoking Status: Never smoker alcohol intake: current alcohol intake frequency: holidays/special occasions only substance use type: does not use caffeine: Yes Type: carbonated beverages Number of servings: 2 Physical Exam Narrative Comfortable. Sitting up in the chair. No apparent distress. Heart sounds 1 and 2 are noted. Chest examination shows crepitations at the right base. Abdomen soft. Alert oriented x3. 3+ bilateral ankle edema. Risk Stratification Risk Stratification Applicable: No Objective Data Vital Signs: Vital Signs Temp Pulse Resp BP Pulse Ox O2 Del Method O2 Flow Rate 96.9 F L 81 18 132/74 H 94 High Flow 3 01/01/23 10:07 01/01/23 10:07 01/01/23 10:07 01/01/23 10:07 01/01/23 10:07 01/01/23 10:07 01/01/23 14:25 Oxygen Flow Rate (L/min) 3 Oxygen Delivery Method High Flow Weight: 309 lb 8.464 oz Body Mass Index (BMI) 43.2 Intake & Output: Intake and Output for Last 24 Hours 12/30/22 12/31/22 01/01/23 23:59 23:59 23:59 Intake Total 510 / 510 Output Total 1300 / 1300 Balance -790 / -790 Lab / Micro Data 01/01/23 02:45 01/01/23 02:45 Labs: Laboratory Results - last 24 hr 01/01/23 00:22: WBC 14.8 H, RBC 3.99 L, Hgb 10.7 L, Hct 36.0 L, MCV 90.2, MCH 26.8 L, MCHC 29.7 L, RDW Std Deviation 56.5 H, RDW Coeff of Rajendra 16.8 H, Plt Count TNP, MPV 10.8, Immature Gran % (Auto) 0.300, Neut % (Auto) 86.8 H, Lymph % (Auto) 2.3 L, [place] % (Auto) 8.3, Eos % (Auto) 1.8, Baso % (Auto) 0.5, Absolute Neuts (auto) 12.8 H, Absolute Lymphs (auto) 0.34 L, Nucleated RBC % 0, Differential Comment SCANNED, Platelet Estimate ADEQUATE, Sodium 141, Potassium 4.3, Chloride 112 H, Carbon Dioxide 21.0, Anion Gap 8, BUN 91 H, Creatinine 4.02 H, Estim Creat Clear Calc 22.37, Est GFR (MDRD) Af Amer 20 L, Est GFR (MDRD) Non-Af 17 L, BUN/Creatinine Ratio 22.6 H, Glucose 181 H, Calcium 8.5, Troponin I High Sens 42, B-Natriuretic Peptide 598.2 H 01/01/23 02:39: Procalcitonin 0.23 H 01/01/23 02:45: WBC 14.3 H, RBC 3.83 L, Hgb 10.6 L, Hct 35.3 L, MCV 92.2, MCH 27.7, MCHC 30.0 L, RDW Std Deviation 58.0 H, RDW Coeff of Rajendra 16.9 H, Plt Count 231, MPV 10.3, Sodium 141, Potassium 4.2, Chloride 113 H, Carbon Dioxide 20.0 L, Anion Gap 8, BUN 87 H, Creatinine 3.94 H, Estim Creat Clear Calc 22.83, Est GFR (MDRD) Af Amer 21 L, Est GFR (MDRD) Non-Af 17 L, BUN/Creatinine Ratio 22.1 H, Glucose 183 H, Calcium 8.6, Phosphorus 4.4, Magnesium 2.2 01/01/23 08:10: POC Glucose 149 H 01/01/23 11:52: POC Glucose 128 H Micro: Microbiology 01/01/23 04:20 Mucosa - Nasopharyngeal Respiratory Panel (PCR) - Final 01/01/23 04:40 Urine, Clean Catch Legionella Antigen - Final 01/01/23 04:40 Urine, Clean Catch Streptococcus pneumoniae Antigen (M - Final 01/01/23 01:04 Nasal Secretion SARS-CoV-2 Antigen (Rapid) - Final Rhythm Strip Rhythm Strip: Sinus Tach Rate: 102 Ectopy: None Cardiology Labs/Tests 01/01/23 00:22: WBC 14.8 H, RBC 3.99 L, Hgb 10.7 L, Hct 36.0 L, MCV 90.2, MCH 26.8 L, MCHC 29.7 L, Plt Count TNP, MPV 10.8, Immature Gran % (Auto) 0.300, Neut % (Auto) 86.8 H, Lymph % (Auto) 2.3 L, [place] % (Auto) 8.3, Eos % (Auto) 1.8, Baso % (Auto) 0.5, Absolute Neuts (auto) 12.8 H, Nucleated RBC % 0, Sodium 141, Potassium 4.3, Chloride 112 H, Carbon Dioxide 21.0, Anion Gap 8, BUN 91 H, Creatinine 4.02 H, Est GFR (MDRD) Af Amer 20 L, Est GFR (MDRD) Non-Af 17 L, BUN/Creatinine Ratio 22.6 H, Glucose 181 H, Calcium 8.5, B-Natriuretic Peptide 598.2 H 01/01/23 02:45: WBC 14.3 H, RBC 3.83 L, Hgb 10.6 L, Hct 35.3 L, MCV 92.2, MCH 27.7, MCHC 30.0 L, Plt Count 231, MPV 10.3, Sodium 141, Potassium 4.2, Chloride 113 H, Carbon Dioxide 20.0 L, Anion Gap 8, BUN 87 H, Creatinine 3.94 H, Est GFR (MDRD) Af Amer 21 L, Est GFR (MDRD) Non-Af 17 L, BUN/Creatinine Ratio 22.1 H, Glucose 183 H, Calcium 8.6, Phosphorus 4.4, Magnesium 2.2 Rhythm: Sinus rhythm. EKG: ECHO: Stress Test: Cardiac Cath: PCI: CT Surgery: Holter monitor: EPS: PPM: CXR: Chest CT Scan: Radiography Diagnostic Testing: Radiology Impression Chest X-Ray 01/01/23 00:25 IMPRESSION: Cardiomegaly with bilateral infiltrates, right consolidation and probable pleural effusion. Findings suspicious for pneumonia. Recommend short-term follow-up to complete resolution. Electronically Signed: Derik Rowan MD at 0:50 EDT ,
--- NOTE | 2023-01-01 14:58 | RDU_ITS ---
Reason For Study: HTN/CKD Right Renal Artery Left Renal Artery Right renal artery distal 86.7/18.5 Left renal artery distal 47.3/9.0 PSV/EDV. PSV/EDV. Right RAR 1.54. Left RAR 0.84. Unable to visualize origin, prox Unable to visualize origin, prox and mid portions of vessel. and mid portions of vessel. Right Renal Parenchyma Left Renal Parenchyma Upper Pole Medula 52.6/11.1 Left upper pole medulla 28.0/7.1 PSV/EDV. PSV/EDV . Right upper pole medulla EDR 0.20 . Left upper pole medulla EDR 0.30 . Right upper pole medulla R.I. Left upper pole medulla R.I. 0.75 . 0.79 . UP Cortex 14.2/5.4 PSV/EDV. Upper Nadeem Cortx 21.6/7.9 PSV/EDV. Left upper pole cortex EDR 0.40 . Right upper pole cortex EDR 0.40 . Left upper pole cortex R.I. 0.62 . Right upper pole cortex R.I. 0.64 . Left lower Pole medulla 29.1/9.8 Right lower Pole medulla 35.3/8.8 PSV/EDV . PSV/EDV . Left lower pole medulla EDR 0.30 . Right lower pole medulla EDR 0.20 . Left lower pole medulla R.I. 0.66 . Right lower pole medulla R.I. Lower Pole Cortx 22.5/9.8 PSV/EDV. 0.75 . Left lower pole cortex EDR 0.40 . Lower Pole Cortex 14.1/6.4 PSV/EDV. Left lower pole cortex R.I. 0.56 . Right lower pole cortex EDR 0.50 . Left Renal Hilar Right lower pole cortex R.I. 0.55 . LT Hilar avg 46.1/14.2 PSV/EDV . Right Renal Hilar Left hilar acceleration time 10 Right Hilar avg 45.7/12.7 PSV/EDV. m/sec. Right hilar acceleration time 30 Left Renal Dimensions m/sec. Left kidney size 13.25 cm . Right Renal Dimensions Left cortical dimension 1.85 cm . Right kidney size 13.50 cm . Right cortical dimension 1.96 cm . Aorta Mid abdominal aorta 2.02 x 2.22 cm . Mid abdominal aorta peak systolic velocity is 56.3 cm/sec . Unable to obtain prox and dist measurements. Procedures Renal Artery Duplex Poor technical quality due to labored breathing, body habitus and bowel gas. Limited views obtained. VL/Renal Artery Duplex Ultrasound Interpretation Summary Right renal artery patent with normal velocities and no evidence of stenosis Left renal artery patent with normal velocities and no evidence of stenosis Right renal vein patent Left renal vein patent Right kidney normal in size Left kidney normal in size Limited study, alternative imaging may be beneficial Ordering Physician: Raheem Dela Cruz Referring Physician: Joseph Ricks Performed By: Altaf Holland RVT
--- NOTE | 2023-01-01 16:01 | CASEMGMT ---
RN CM chart review: Patient was admitted 12/20-12/23/22 for elevated troponin, hypoxia, and CORA on CKD. See RN CM assessment 12/21/22. Patient was discharged home with home oxygen through [employer] at 3lpm with ambulation. Patient returned to [facility] ED on 01/01/23 for chest pain and SOB. Patient was admitted for CHF exacerbation. Patient is currently on high flow oxygen. RADHA CM in to discuss readmission and discharge planning. Patient states that he followed up with PCP last week on Sunday or Sunday. Patient states he was wearing his oxygen as prescribed. Patient states he was taking medications as prescribed. Patient also has appt on 01/11/23 with [facility]. Patient denied needs at discharge, will monitor for increase in home oxygen. CM will continue to follow this patient and plan for a safe discharge.
[2023-01-01] MEDS: Insulin Lispro 100 UNIT/ML INSULN.PEN SC ×2 (16:48→22:20)
[2023-01-01] MEDS: Furosemide 100 MG/10 ML Vial 80 MG IV (16:49)
[2023-01-01 16:50] LABS: Bedside Glucose 156 mg/dL (74-106)
[2023-01-01] MEDS: Atorvastatin Calcium 80 MG Tablet PO (22:18)
[2023-01-01 23:04] LABS: Bedside Glucose 173 mg/dL (74-106)
[2023-01-02] VITALS (9 sets, daily range): BP systolic 141–155; BP diastolic 65–78; PULSE 66–70; RESP 12–24; TEMP 36.2–36.6; O2SAT 93–97; BMI 43.5
[2023-01-02 03:33] LABS: Absolute Lymphocyte Count 0.72 X10^3/uL (0.83-4.51); Absolute Neutrophil Count 6.8 X10^3/uL (2.0-7.7); Basophil# 0.07 X10^3/uL; Basophil% 0.8 % (0-1); Eosinophil# 0.52 X10^3/uL; Eosinophils% 5.8 % (0-5); Hematocrit 29.4 % (40-54); Hemoglobin 9.2 g/dL (13.0-16.5); Lymphocyte # 0.72 X10^3/ul (0.83-4.51); Mean Corp Hgb Conc 31.3 g/dL (32-36); Mean Corpuscular Hgb 28.3 pg (27.0-32.0); Mean Corpuscular Volume 90.5 fL (80-94); Mean Platelet Vol. 10.8 fl (6.2-12.0); Monocyte# 0.94 X10^3/uL; Monocyte% 10.4 % (0-10); NRBC Flagged by Analyzer 0 % (0-5); Neutrophil # 6.77 X10^3/uL (2.7-7.7); Neutrophil % 74.8 % (47-70); Platelet Count 215 K/mm3 (150-450); RBC Distribution Width CV 16.7 % (11.6-14.6); RBC Distribution Width SD 55.5 fl (35.1-43.9); Red Blood Count 3.25 M/mm3 (4.6-6.2)
[2023-01-02 03:51] LABS: Anion Gap 5 (5-15); BUN 94 mg/dL (7-18); BUN/Creat Ratio 21.2 RATIO (10-20); Calcium,Total 8.3 mg/dL (8.5-10.1); Chloride 111 mmol/L (98-107); Creatinine, Serum 4.43 mg/dL (0.70-1.30); EST Glomerular Filtration Rate 15 mL/min (>60); Est Glom Filt Rate - Afr Amer 18 mL/min (>60); Glucose 113 mg/dL (74-106); Potassium 4.2 mmol/L (3.5-5.1); Sodium Level 141 mmol/L (136-145)
[2023-01-02 04:02] LABS: Bedside Glucose 111 mg/dL (74-106)
[2023-01-02 08:10] LABS: Bedside Glucose 97 mg/dL (74-106)
[2023-01-02] MEDS: Ferrous Sulfate 325 MG Tablet PO (09:10)
[2023-01-02] MEDS: Aspirin 81 MG TAB.CHEW PO (09:10)
[2023-01-02] MEDS: Carvedilol 25 MG Tablet PO ×2 (09:10→17:21)
[2023-01-02] MEDS: Heparin Injection (Vial) 5,000 UNIT/ML VIAL 5000 UNIT SC ×2 (11:21→23:08)
[2023-01-02] MEDS: Isosorbide Mononitrate 60 MG Tablet PO (11:21)
[2023-01-02] MEDS: Furosemide 100 MG/10 ML Vial 80 MG IV ×2 (11:21→17:21)
[2023-01-02] MEDS: Insulin Glargine-YFGN 100 UNIT/ML Pen 15 UNIT SC ×2 (11:21→23:11)
[2023-01-02] MEDS: Ezetimibe 10 MG Tablet PO (11:22)
[2023-01-02] MEDS: Clopidogrel Bisulfate 75 MG Tablet PO (11:22)
[2023-01-02] MEDS: amLODIPine 5 MG Tablet PO (11:22)
[2023-01-02] MEDS: levoFLOXacin IV 750 MG/150 ML BAG 100 MG IV (11:34)
--- NOTE | 2023-01-02 11:39 | CASEMGMT ---
Discharge Planning Patient has a dependency case manager through [employer] that can assist with discharge planning if needed. Gisela [phone]. RN CM updated. Meka Hayes, Discharge Planning Asst.
--- NOTE | 2023-01-02 12:08 | PN.RENAL_ITS ---
Subjective Subjective no new events. breathing is better. Objective Data Objective Data Vital Signs: Vital Signs Temp Pulse Resp BP Pulse Ox O2 Del Method O2 Flow Rate 97.7 F L 67 24 H 141/65 H 94 Nasal Cannula 4 01/02/23 03:00 01/02/23 03:00 01/02/23 03:00 01/02/23 03:00 01/02/23 03:00 01/02/23 03:00 01/01/23 16:00 Oxygen Flow Rate (L/min) 4 Oxygen Delivery Method Nasal Cannula Weight: 141.6 kg Body Mass Index (BMI) 43.5 Intake & Output: Intake and Output for Last 24 Hours 12/31/22 01/01/23 01/02/23 23:59 23:59 23:59 Intake Total 870 / 870 Output Total 1300 / 1575 275 / 275 Balance -430 / -705 -275 / -275 Lab / Micro Data 01/02/23 03:25 01/02/23 03:25 Labs: Laboratory Results - last 24 hr 01/01/23 11:52: POC Glucose 128 H 01/01/23 16:27: POC Glucose 156 H 01/01/23 22:15: POC Glucose 173 H 01/02/23 03:24: POC Glucose 111 H 01/02/23 03:25: WBC 9.0, RBC 3.25 L, Hgb 9.2 L, Hct 29.4 L, MCV 90.5, MCH 28.3, MCHC 31.3 L, RDW Std Deviation 55.5 H, RDW Coeff of Rajendra 16.7 H, Plt Count 215, MPV 10.8, Immature Gran % (Auto) 0.200, Neut % (Auto) 74.8 H, Lymph % (Auto) 8.0 L, [place] % (Auto) 10.4 H, Eos % (Auto) 5.8 H, Baso % (Auto) 0.8, Absolute Neuts (auto) 6.8, Absolute Lymphs (auto) 0.72 L, Nucleated RBC % 0, Sodium 141, Potassium 4.2, Chloride 111 H, Carbon Dioxide 25.0, Anion Gap 5, BUN 94 H, Creatinine 4.43 H, Estim Creat Clear Calc 20.30, Est GFR (MDRD) Af Amer 18 L, Est GFR (MDRD) Non-Af 15 L, BUN/Creatinine Ratio 21.2 H, Glucose 113 H, Calcium 8.3 L 01/02/23 06:58: POC Glucose 97 Micro: Microbiology 01/01/23 04:20 Mucosa - Nasopharyngeal Respiratory Panel (PCR) - Final 01/01/23 04:40 Urine, Clean Catch Legionella Antigen - Final 01/01/23 04:40 Urine, Clean Catch Streptococcus pneumoniae Antigen (M - Final 01/01/23 01:04 Nasal Secretion SARS-CoV-2 Antigen (Rapid) - Final Rhythm Strip Rhythm Strip: Sinus Tach Rate: 102 Ectopy: None Physical Exam Narrative Alert awake oriented x 3 no obvious distress no pallor no icterus no JVD s1s2 no murmurs lungs clear abdomen soft no organomegaly no edema no cyanosis Assessment & Plan Assessment/Plan (1) CKD (chronic kidney disease), stage IV: PLAN: Known history of CKD stage IV, baseline creatinine recently has been between 3.5-4.0. Likely due to a combination of diabetes, hypertension, heart failure, newly diagnosed plasma cell disorder. This is his second admission within the last 1 month with fluid overload. He says he has been on diuretics. Chest x-ray looks fairly wet. Interesting BNP is only about 600, despite having a creatinine of 4.0. Subjectively he feels better with IV Lasix. Continue IV Lasix for now. Most likely he will need to start dialysis due to repeated hospitalizations with volume overload. He is agreeable. Coronary artery disease, congestive heart failure. He is s/p coronary angioplasty in August. Repeat stress test earlier this month did not show any reversible ischemia. At that time it was decided to continue medical management. Of note he did go off Plavix for about 5 days for bone marrow biopsy. He still has significant hematoma at the biopsy site. Suspected myeloma. Significantly elevated kappa/lambda light chain. Sees hem atology. Bone marrow unfortunately was inconclusive. Flow cytometry did confirm monoclonality. At a minimum he will have monoclonal gammopathy of undetermined significance versus full-blown multiple myeloma. He was originally scheduled for a CT-guided bone marrow biopsy here at [facility]. He is agreeable to start dialysis if needed. We will have to start with a tunneled dialysis catheter (2) Acute exacerbation of CHF (congestive heart failure): QUALIFIERS: Heart failure type: systolic Qualified Code(s): I50.23 - Acute on chronic systolic (congestive) heart failure
[2023-01-02 12:54] LABS: Bedside Glucose 124 mg/dL (74-106)
--- NOTE | 2023-01-02 13:01 | PN.HOSP_ITS ---
Reason for Visit Reason for Visit: Diagnoses Type 2 diabetes mellitus with diabetic chronic kidney disease (01/01/23) Essential (primary) hypertension (01/01/23) Atherosclerotic heart disease of [place] coronary artery without angina pectoris (01/01/23) Acute on chronic systolic (congestive) heart failure (01/01/23) Heart failure, unspecified (01/01/23) Pneumonia, unspecified organism (01/01/23) Chronic kidney disease, stage 4 (severe) (01/01/23) Objective Data Objective Data Vital Signs: Vital Signs Temp Pulse Resp BP Pulse Ox O2 Del Method O2 Flow Rate 97.7 F L 67 24 H 141/65 H 94 Nasal Cannula 4 01/02/23 03:00 01/02/23 03:00 01/02/23 03:00 01/02/23 03:00 01/02/23 03:00 01/02/23 03:00 01/01/23 16:00 Oxygen Flow Rate (L/min) 4 Oxygen Delivery Method Nasal Cannula Weight: 312 lb 2.793 oz Body Mass Index (BMI) 43.5 Intake & Output: Intake and Output for Last 24 Hours 12/31/22 01/01/23 01/02/23 23:59 23:59 23:59 Intake Total 870 / 870 Output Total 1300 / 1575 275 / 275 Balance -430 / -705 -275 / -275 Lab / Micro Data 01/02/23 03:25 01/02/23 03:25 Labs: Laboratory Results - last 24 hr 01/01/23 16:27: POC Glucose 156 H 01/01/23 22:15: POC Glucose 173 H 01/02/23 03:24: POC Glucose 111 H 01/02/23 03:25: WBC 9.0, RBC 3.25 L, Hgb 9.2 L, Hct 29.4 L, MCV 90.5, MCH 28.3, MCHC 31.3 L, RDW Std Deviation 55.5 H, RDW Coeff of Rajendra 16.7 H, Plt Count 215, MPV 10.8, Immature Gran % (Auto) 0.200, Neut % (Auto) 74.8 H, Lymph % (Auto) 8.0 L, [place] % (Auto) 10.4 H, Eos % (Auto) 5.8 H, Baso % (Auto) 0.8, Absolute Neuts (auto) 6.8, Absolute Lymphs (auto) 0.72 L, Nucleated RBC % 0, Sodium 141, Potassium 4.2, Chloride 111 H, Carbon Dioxide 25.0, Anion Gap 5, BUN 94 H, Cr eatinine 4.43 H, Estim Creat Clear Calc 20.30, Est GFR (MDRD) Af Amer 18 L, Est GFR (MDRD) Non-Af 15 L, BUN/Creatinine Ratio 21.2 H, Glucose 113 H, Calcium 8.3 L 01/02/23 06:58: POC Glucose 97 01/02/23 11:27: POC Glucose 124 H Micro: Microbiology 01/01/23 04:20 Mucosa - Nasopharyngeal Respiratory Panel (PCR) - Final 01/01/23 04:40 Urine, Clean Catch Legionella Antigen - Final 01/01/23 04:40 Urine, Clean Catch Streptococcus pneumoniae Antigen (M - Final 01/01/23 01:04 Nasal Secretion SARS-CoV-2 Antigen (Rapid) - Final Rhythm Strip Rhythm Strip: Sinus Tach Rate: 102 Ectopy: None Physical Exam Narrative Patient was admitted with shortness of breath and chest pain which was localized left-sided felt like sharp without radiation.He had 2 episodes and worse with coughing. Chest pain is resolved. Leg swelling improving. Shortness of breath also improved. General: Alert, Oriented x3, Cooperative, morbid obesity, BMI 43.2 kg/m? HEENT: Atraumatic, PERRLA, EOMI, Normocephalic Oral: Oral mucosa dry. No Gingival or Mucosal Lesions/ Ulcerations Neck: Supple, No JVD, Negative Carotid Bruits Lungs: Air entry diminished in bilateral lung bases. No crepitation/rhonchi Cardiovascular: Regular rate, Regular Rhythm, Normal S1, Normal S2, solid, right second ICS. Abdomen: Bowel Sounds Present, Soft, Non Tender, Non-Distended : No renal angle tenderness. No suprapubic tenderness. Extremities: Pitting chronic bilateral 2+ edema, Capillary Refill Less than 3 Seconds Skin: No rashes, No breakdown Musculoskeletal: No Tenderness to Palpation of Joints or Extremities Neurological: Cranial nerves II-XII grossly intact, DTR 2+/4. No acute focal neurological deficit. Psych/Mental Status: Normal Affect, Appropriate. Assessment & Plan Assessment/Plan (1) Acute exacerbation of CHF (congestive heart failure): QUALIFIERS: Heart failure type: systolic Qualified Code(s): I50.23 - Acute on chronic systolic (congestive) heart failure PLAN: Plan Patient is a 52-year-old male with was on admitted on 01/01/2023 on the monitored bed with worsening shortness of breath and severe hypoxia requiring 8 L/min in ED for about 3-4 days predominantly dyspnea with exertion, cough with the whitish sputum production. He was discharged from the hospital last week f rom CHF exacerbation with recent O2 at night. No fever. Denies chest pain or discomfort. 1. Acute exacerbation of heart failure with reduced ejection fraction, acute on chronic hypoxic respiratory failure: Had recent hospitalization from 12/20 through 12/23 for a similar presentation. Was found to have an NSTEMI at that time. Cardiology followed. Echo showed an EF of 35% with moderate global hypokinesis of the LV. Stress test showed evidence of ischemic cardiomyopathy that was unchanged from previous. Cardiology recommendation was for medical management. Chest x-ray on admit shows cardiomegaly with bilateral infiltrates, right consolidation and probable pleural effusion; notably has significantly worsened volume overload in comparison to chest x-ray from 12/20/2022. BNP 598. Patient was discharged home on p.o. Lasix 20 mg daily, notably was not a candidate for ACEi or ARB given CKD. Was wearing home 2 L nasal cannula at night since discharge, requiring up to 8 L nasal cannula in ED. Heart failure core measures including intake and output, fluid restriction less than 1500 mL, daily weight monitoring, kidney and electrolytes monitoring. Lasix 40 mg IV twice daily. Rest as mentioned. Continue oxygen to keep pulse ox 90% 01/02: Patient on 4 L of oxygen. Shortness of breath and neck swelling is better. 2. CKD stage IV Follows with nephrology [facility]. CKD is notably secondary to longstanding history of diabetes, heart failure, hypertension or recently diagnosed plasma cell disorder. Creatinine 3.94 on admit, baseline creatinine around 3.7-4.1. Patient reports good urine output since recent discharge. On IV diuretic Lasix as mentioned above. Patient also has suspected myeloma. Significantly elevated [place] and lambda light chain. Patient follows oncologist Dr. Heard. Had bone marrow biopsy which was unfortunately inconclusive outpatient had hematoma at the biopsy site on the right posterior iliac crest. It is unclear whether patient had MGUS or multiple myeloma. 3. Mild to moderate concern for community-acquired pneumonia: Patient has cough with whitish sputum production, leukocytosis and chest x-ray findings admission above. Procalcitonin 0.23. Continue IV Levaquin for now. Sputum culture, blood cultures, urine antigens, respiratory panel pending. Monitor daily CBC. Chest x-ray individually reviewed and looks more fluid overload with right basilar effusion/atelectasis although reported right basilar consolidation. 4. History of ischemic cardiomyopathy, hypertension ? Continue home aspirin, Plavix, statin, Zetia, Coreg, Imdur, amlodipine. Cardiology consult and IV Lasix as noted above. Chronic medical conditions: ? Type 2 diabetes: Home regimen of Lantus 20 units twice daily. Glucose 183 on admit. We will start Lantus 15 units twice daily with sliding scale insulin here, adjust regimen as needed. ? Iron deficiency anemia: Continue home iron supplement. DVT prophylaxis: Heparin subcu CODE STATUS: Full code, verified Total time of the visit including total time spent in counseling or coordination of care, (more than 50% of the total time, spent in obtaining medical information from nurses and other ancillary care providers,explaining to the patient about labs, imaging, diagnosis and management of active complex medical conditions), discussion with cardroom manager and breaker engineer, review of labs and imaging and clinical update given to the patient and his son near the bedside is 40 minutes. Charges/Coding Visit Charges Inpatient E&M: 41102 Subs Hosp L2
--- NOTE | 2023-01-02 13:04 | PN.CARD_ITS ---
Subjective Subjective Lying flat in the bed. No apparent distress. Denies any complaints. Objective Data Vital Signs: Vital Signs Temp Pulse Resp BP Pulse Ox O2 Del Method O2 Flow Rate 97.7 F L 67 24 H 141/65 H 94 Nasal Cannula 4 01/02/23 03:00 01/02/23 03:00 01/02/23 03:00 01/02/23 03:00 01/02/23 03:00 01/02/23 03:00 01/01/23 16:00 Oxygen Flow Rate (L/min) 4 Oxygen Delivery Method Nasal Cannula Weight: 312 lb 2.793 oz Body Mass Index (BMI) 43.5 Intake & Output: Intake and Output for Last 24 Hours 12/31/22 01/01/23 01/02/23 23:59 23:59 23:59 Intake Total 870 / 870 Output Total 1300 / 1575 275 / 275 Balance -430 / -705 -275 / -275 Lab / Micro Data 01/02/23 03:25 01/02/23 03:25 Labs: Laboratory Results - last 24 hr 01/01/23 16:27: POC Glucose 156 H 01/01/23 22:15: POC Glucose 173 H 01/02/23 03:24: POC Glucose 111 H 01/02/23 03:25: WBC 9.0, RBC 3.25 L, Hgb 9.2 L, Hct 29.4 L, MCV 90.5, MCH 28.3, MCHC 31.3 L, RDW Std Deviation 55.5 H, RDW Coeff of Rajendra 16.7 H, Plt Count 215, MPV 10.8, Immature Gran % (Auto) 0.200, Neut % (Auto) 74.8 H, Lymph % (Auto) 8.0 L, [place] % (Auto) 10.4 H, Eos % (Auto) 5.8 H, Baso % (Auto) 0.8, Absolute Neuts (auto) 6.8, Absolute Lymphs (auto) 0.72 L, Nucleated RBC % 0, Sodium 141, Potassium 4.2, Chloride 111 H, Carbon Dioxide 25.0, Anion Gap 5, BUN 94 H, Creatinine 4.43 H, Estim Creat Clear Calc 20.30, Est GFR (MDRD) Af Amer 18 L, Est GFR (MDRD) Non-Af 15 L, BUN/Creatinine Ratio 21.2 H, Glucose 113 H, Calcium 8.3 L 01/02/23 06:58: POC Glucose 97 01/02/23 11:27: POC Glucose 124 H Rhythm Strip Rhythm Strip: Sinus Tach Rate: 102 Ectopy: None Cardiology Labs/Tests 01/02/23 03:25: WBC 9.0, RBC 3.25 L, Hgb 9.2 L, Hct 29.4 L, MCV 90.5, MCH 28.3, MCHC 31.3 L, Plt Count 215, MPV 10.8, Immature Gran % (Auto) 0.200, Neut % (Auto) 74.8 H, Lymph % (Auto) 8.0 L, [place] % (Auto) 10.4 H, Eos % (Auto) 5.8 H, Baso % (Auto) 0.8, Absolute Neuts (auto) 6.8, Nucleated RBC % 0, Sodium 141, Potassium 4.2, Chloride 111 H, Carbon Dioxide 25.0, Anion Gap 5, BUN 94 H, Creatinine 4.43 H, Est GFR (MDRD) Af Amer 18 L, Est GFR (MDRD) Non-Af 15 L, BUN/Creatinine Ratio 21.2 H, Glucose 113 H, Calcium 8.3 L Rhythm: EKG: ECHO: Stress Test: Cardiac Cath: PCI: CT Surgery: Holter monitor: EPS: PPM: CXR: Chest CT Scan: Physical Exam Narrative Comfortable. Sitting up in the chair. No apparent distress. Heart sounds 1 and 2 are noted. Chest examination shows crepitations at the right base. Abdomen soft. Alert oriented x3. 2+ bilateral ankle edema. Assessment & Plan Assessment/Plan (1) Pneumonia: PLAN: On levofloxacin. (2) Acute exacerbation of CHF (congestive heart failure): QUALIFIERS: Heart failure type: systolic Qualified Code(s): I50.23 - Acute on chronic systolic (congestive) heart failure PLAN: Continue furosemide. (3) Coronary artery disease: PLAN: Continue medical management. Beta-blockers. Statins. Aspirin. Clopid ogrel nitrates (4) Hypertension: PLAN: Continue current medications. (5) CKD stage 4 due to type 2 diabetes mellitus: PLAN: As per internal medicine.
[2023-01-02 16:37] LABS: Bedside Glucose 117 mg/dL (74-106)
[2023-01-02] MEDS: Atorvastatin Calcium 80 MG Tablet PO (23:10)
[2023-01-02 23:31] LABS: Bedside Glucose 128 mg/dL (74-106)
[2023-01-03] VITALS (8 sets, daily range): BP systolic 137–152; BP diastolic 67–83; PULSE 65–77; RESP 16–18; TEMP 36.6–36.8; O2SAT 84–98; BMI 43.7
[2023-01-03 05:47] LABS: Absolute Neutrophil Count 6.2 X10^3/uL (2.0-7.7); Basophil# 0.06 X10^3/uL; Basophil% 0.7 % (0-1); Eosinophil# 0.71 X10^3/uL; Eosinophils% 8.4 % (0-5); Hematocrit 31.7 % (40-54); Hemoglobin 9.4 g/dL (13.0-16.5); Lymphocyte % 7.1 % (19-41); Mean Corp Hgb Conc 29.7 g/dL (32-36); Mean Corpuscular Hgb 26.5 pg (27.0-32.0); Mean Corpuscular Volume 89.3 fL (80-94); Mean Platelet Vol. 10.2 fl (6.2-12.0); Monocyte# 0.84 X10^3/uL; NRBC Flagged by Analyzer 0 % (0-5); Neutrophil # 6.17 X10^3/uL (2.7-7.7); Neutrophil % 73.4 % (47-70); POSITIVE DIFFERENTIAL YES; Platelet Count 247 K/mm3 (150-450); RBC Distribution Width CV 16.2 % (11.6-14.6); RBC Distribution Width SD 53.2 fl (35.1-43.9); Red Blood Count 3.55 M/mm3 (4.6-6.2); White Blood Count 8.4 K/mm3 (4.4-11.0)
[2023-01-03 05:52] LABS: Differential Indicated SCAN CRITERIA MET
[2023-01-03 06:11] LABS: Differential Comment SCANNED
[2023-01-03 06:13] LABS: Anion Gap 6 (5-15); BUN 97 mg/dL (7-18); BUN/Creat Ratio 22.2 RATIO (10-20); Calcium,Total 8.4 mg/dL (8.5-10.1); Chloride 110 mmol/L (98-107); Creatinine, Serum 4.37 mg/dL (0.70-1.30); EST Glomerular Filtration Rate 15 mL/min (>60); Est Glom Filt Rate - Afr Amer 18 mL/min (>60); Estimated Creatinine Clearance 20.58 ml/min; Glucose 108 mg/dL (74-106); Sodium Level 140 mmol/L (136-145)
[2023-01-03] MEDS: Aspirin 81 MG TAB.CHEW PO (08:31)
[2023-01-03] MEDS: Ferrous Sulfate 325 MG Tablet PO (08:31)
[2023-01-03] MEDS: Carvedilol 25 MG Tablet PO ×2 (08:31→16:37)
[2023-01-03 09:03] LABS: Bedside Glucose 94 mg/dL (74-106)
[2023-01-03] MEDS: Heparin Injection (Vial) 5,000 UNIT/ML VIAL 5000 UNIT SC (10:07)
[2023-01-03] MEDS: Isosorbide Mononitrate 60 MG Tablet PO (10:07)
[2023-01-03] MEDS: Insulin Glargine-YFGN 100 UNIT/ML Pen 15 UNIT SC (10:07)
[2023-01-03] MEDS: Furosemide 100 MG/10 ML Vial 80 MG IV (10:08)
[2023-01-03] MEDS: 0.9% Saline Lock 10 ML Syringe IV (10:09)
[2023-01-03] MEDS: amLODIPine 5 MG Tablet PO (10:09)
[2023-01-03] MEDS: Clopidogrel Bisulfate 75 MG Tablet PO (10:09)
[2023-01-03] MEDS: Ezetimibe 10 MG Tablet PO (10:09)
[2023-01-03 11:48] LABS: Bedside Glucose 143 mg/dL (74-106)
--- NOTE | 2023-01-03 12:15 | DCINST_ITS ---
Discharge Instructions Diet Discharge Diet: Low fat / Low cholesterol, 6 Cup Fluid Restriction and Carb Control Diet Activity Discharge Activity: Return to Normal Activity Dressing / Incision Call your doctor if you observe: Fever of 101 or Higher, Shortness of breath, Dizziness, Fainting spells, Swelling in the ankles, Chest pain and Increased palpitations (irregular heartbeat) Follow Up Care Test Results: Test results from this visit will be discussed in further detail at your follow- up appointment, if applicable. Discharge Plan Admission Admit Date/Time: 01/01/23 01:24 Attending Provider: Favio Garduno Primary Care Provider: Joseph Ricks Consulting Providers: Francisco Akbar; Alfonso Joya; Raheem Dela Cruz; Alonzo Aviles Discharge Orders/Prescriptions Prescriptions: New levofloxacin 500 mg tablet 500 mg PO Q48H Qty: 3 0RF furosemide [Lasix] 80 mg tablet 80 mg PO BID Qty: 60 0RF metolazone 5 mg tablet 5 mg PO DAILY Qty: 30 0RF Continued aspirin 81 MG tablet,chewable 81 mg PO DAILY@0800 Patient Comments: [facility] atorvastatin 80 MG tablet 80 mg PO QHS 30 Days Qty: 30 0RF clopidogrel 75 MG tablet 75 mg PO DAILY 30 Days Qty: 30 0RF insulin glargine [Lantus Solostar U-100 Insulin] 100 unit/mL (3 mL) insulin pen 20 unit subcut BID 30 Days Qty: 12 0RF Rx Instructions: Takes if Blood sugar > 150 ezetimibe 10 mg tablet 10 mg PO DAILY Patient Comments: TAKE 1 TABLET BY MOUTH EVERY DAY amlodipine 5 mg tablet 5 mg PO DAILY Patient Comments: TAKE ONE TABLET BY MOUTH DAILY ferrous sulfate [FeroSul] 325 mg (65 mg iron) Tablet 325 mg PO BID Qty: 60 0RF ergocalciferol (vitamin D2) [Vitamin D2] 1,250 mcg (50,000 unit) capsule 50,000 unit PO QWEEK isosorbide mononitrate 60 mg tablet extended release 24 hr 60 mg PO DAILY 30 Days Qty: 30 11RF Rx Instructions: please refill now carvedilol 25 mg tablet 25 mg PO BID Qty: 180 3RF Rx Instructions: must administer with a meal/food Discontinued doxycycline monohydrate 100 mg capsule 100 mg PO BID Qty: 84 0RF Rx Instructions: one twice a day for 6 weeks furosemide 20 mg tablet 20 mg PO DAILY Qty: 30 0RF Referrals / Follow Up: Francisco Akbar MD [Med Staff - Consulting] - Within 1 Week Joseph Ricks MD [Primary Care Provider] - Within 1 Week Disposition Disposition (needs filled in before D/C Order can be placed): Home, Self Care
--- NOTE | 2023-01-03 12:49 | PN.RENAL_ITS ---
Subjective Subjective No new complaints today. Breathing is back to baseline. Wants to go home today Objective Data Objective Data Vital Signs: Vital Signs Temp Pulse Resp BP Pulse Ox O2 Del Method O2 Flow Rate 98.2 F 77 16 148/74 H 93 Nasal Cannula 4 01/03/23 08:16 01/03/23 08:16 01/03/23 08:16 01/03/23 08:16 01/03/23 09:13 01/03/23 09:13 01/03/23 11:09 Oxygen Flow Rate (L/min) [ 4 AMBULATING with Oxygen #3] Oxygen Flow Rate (L/min) [ 3 AMBULATING with Oxygen #2] Oxygen Flow Rate (L/min) [ 2 AMBULATING with Oxygen #1] Oxygen Flow Rate (L/min) [At 2 REST with Oxygen] Oxygen Flow Rate (L/min) [At 0 REST on Room Air] Oxygen Flow Rate (L/min) 4 Oxygen Delivery Method Nasal Cannula Weight: 142 kg Body Mass Index (BMI) 43.7 Intake & Output: Intake and Output for Last 24 Hours 01/01/23 01/02/23 01/03/23 23:59 23:59 23:59 Intake Total 870 / 870 150 / 150 420 / 420 Output Total 1300 / 1575 275 / 275 Balance -430 / -705 -125 / -125 420 / 420 Lab / Micro Data 01/03/23 05:41 01/03/23 05:41 Labs: Laboratory Results - last 24 hr 01/02/23 11:27: POC Glucose 124 H 01/02/23 16:20: POC Glucose 117 H 01/02/23 23:08: POC Glucose 128 H 01/03/23 05:41: WBC 8.4, RBC 3.55 L, Hgb 9.4 L, Hct 31.7 L, MCV 89.3, MCH 26.5 L , MCHC 29.7 L D, RDW Std Deviation 53.2 H, RDW Coeff of Rajendra 16.2 H, Plt Count 247, MPV 10.2, Immature Gran % (Auto) 0.400, Neut % (Auto) 73.4 H, Lymph % (Auto) 7.1 L, [place] % (Auto) 10.0, Eos % (Auto) 8.4 H, Baso % (Auto) 0.7, Absolute Neuts (auto) 6.2, Absolute Lymphs (auto) 0.60 L, Nucleated RBC % 0, Differential Comment SCANNED, Sodium 140, Potassium 4.0, Chloride 110 H, Carbon Dioxide 24.0, Anion Gap 6, BUN 97 H, Creatinine 4.37 H, Estim Creat Clear Calc 20.58, Est GFR (MDRD) Af Amer 18 L, Est GFR (MDRD) Non-Af 15 L, BUN/Creatinine Ratio 22.2 H, Glucose 108 H, Calcium 8.4 L 01/03/23 06:29: POC Glucose 94 01/03/23 11:30: POC Glucose 143 H Micro: Microbiology 01/01/23 04:20 Mucosa - Nasopharyngeal Respiratory Panel (PCR) - Final 01/01/23 04:40 Urine, Clean Catch Legionella Antigen - Final 01/01/23 04:40 Urine, Clean Catch Streptococcus pneumoniae Antigen (M - Final 01/01/23 01:04 Nasal Secretion SARS-CoV-2 Antigen (Rapid) - Final Radiography Diagnostic Testing: Radiology Impression Renal Artery Duplex 01/01/23 14:58 Interpretation Summary Right renal artery patent with normal velocities and no evidence of stenosis Left renal artery patent with normal velocities and no evidence of stenosis Right renal vein patent Left renal vein patent Right kidney normal in size Left kidney normal in size Limited study, alternative imaging may be beneficial Ordering Physician: Raheem Dela Cruz Referring Physician: Joseph Ricks Performed By: Altaf Holland RVMaria De Jesus Rhythm Strip Rhythm Strip: Sinus Tach Rate: 102 Ectopy: None Physical Exam Narrative Alert awake oriented x 3 no obvious distress no pallor no icterus no JVD s1s2 no murmurs lungs clear abdomen soft no organomegaly no edema no cyanosis Assessment & Plan Assessment/Plan (1) CKD (chronic kidney disease), stage IV: PLAN: Known history of CKD stage IV, baseline creatinine recently has been between 3.5-4.0. Likely due to a combination of diabetes, hypertension, heart failure, newly diagnosed plasma cell disorder. This is his second admission within the last 1 month with fluid overload. He says he has been on diuretics. Chest x-ray looks fairly wet. Interesting BNP is only about 600, despite having a creatinine of 4.0. Coronary artery disease, congestive heart failure. He is s/p coronary angioplasty in August. Repeat stress test earlier this month did not show any reversible ischemia. At that time it was decided to continue medical management. Of note he did go off Plavix for about 5 days for bone marrow biopsy. He still has significant hematoma at the biopsy site. Suspected myeloma. Significantly elevated kappa/lambda light chain. Sees hematology. Bone marrow unfortunately was inconclusive. Flow cytometry did confirm monoclonality. At a minimum he will have monoclonal gammopathy of undetermined significance versus full-blown multiple myeloma. He was originally scheduled for a CT-guided bone marrow biopsy here at [facility]. Discussed with cardiology. He may need a tunneled dialysis catheter, bone marrow biopsy CT-guided. We may have to hold Plavix for couple of days for these procedures. Asking to go home. Can DC on Lasix 80 mg twice daily along with metolazone 5 mg daily. He is agreeable to start dialysis if needed. We will also have AV fist raudel placed (2) Acute exacerbation of CHF (congestive heart failure): QUALIFIERS: Heart failure type: systolic Qualified Code(s): I50.23 - Acute on chronic systolic (congestive) heart failure
--- NOTE | 2023-01-03 13:30 | PHA.DC.MC.R ---
Pharmacy [facility] Pharmacy Service has performed discharge medication reconciliation and counseling for this patient. The patient's discharge medication list was reviewed for discrepancies and discrepancies were resolved. The patient was counseled on the following discharge medications and changes in medications for homegoing were reviewed. The Reason for Use, instructions for use, and potential side effects were reviewed for all new medications. The patient's questions regarding all of their medications were answered. 1. Furosemide 80 mg PO BID 2. Metolazone 5 mg PO daily 3. Levofloxacin 500 mg PO Q48H x 3 doses The patient was able to verbally demonstrate an understanding of their discharge medications. Medications at Discharge Home Medications aspirin 81 mg chewable tablet 81 mg PO DAILY@0800 heart 09/28/14 atorvastatin 80 mg tablet 80 mg PO QHS cholesterol 30 days #30 tabs 06/21/21 clopidogrel 75 mg tablet 75 mg PO DAILY Blood Thinner 30 days #30 tabs 06/21/21 insulin glargine 100 unit/mL (3 mL) subcutaneous pen (Lantus Solostar U-100 Insulin) 20 unit (0.2 mL) subcut BID Diabetes 30 days #12 mL 06/21/21 isosorbide mononitrate 60 mg tablet,extended release 24 hr 60 mg PO DAILY Heart 30 days #30 tabs 01/12/22 ezetimibe 10 mg tablet 10 mg PO DAILY cholesterol 04/07/22 carvedilol 25 mg tablet 25 mg PO BID blood pressure #180 tabs 05/25/22 amlodipine 5 mg tablet 5 mg PO DAILY blood pressure 06/05/22 ferrous sulfate 325 mg (65 mg iron) tablet (FeroSul) 325 mg PO BID supplement #60 tabs 06/08/22 ergocalciferol (vitamin D2) 1,250 mcg (50,000 unit) capsule (Vitamin D2) 50,000 unit PO QWEEK 01/01/23 furosemide 80 mg tablet (Lasix) 80 mg PO BID #60 tabs 01/03/23 levofloxacin 500 mg tablet 500 mg PO Q48H #3 tabs 01/03/23 metolazone 5 mg tablet 5 mg PO DAILY #30 tabs 01/03/23
--- NOTE | 2023-01-03 13:35 | PCM.DC.SUM ---
Providers Date of Admission: 01/01/23 Primary Care Physician: Dr. Joseph Ricks MD Consultations 01/01/23 02:21 Consult: Nephrology Routine Consulting Provider: Francisco Akbar Reason for Consult: CKD stage IV, CHF exacerbation EMERGENT Consult: No Notified: Yes Date Notified: 01/01/23 Time Notified: 06:41 Method of Notification: Answering Service 01/01/23 07:36 Consult: Cardiology Routine Consulting Provider: Raheem Dela Cruz Reason for Consult: CHF exacerbation EMERGENT Consult: No Notified: Yes Date Notified: 01/01/23 Time Notified: 01:27 Method of Notification: Text Reason For Visit: CHF EXACERBATION Diagnosis Discharge Diagnosis (1) CKD (chronic kidney disease), stage IV: Status: Chronic Code(s): N18.4 - Chronic kidney disease, stage 4 (severe) (2) Acute exacerbation of CHF (congestive heart failure): Status: Chronic Code(s): I50.9 - Heart failure, unspecified Qualifiers: Heart failure type: systolic Qualified Code(s): I50.23 - Acute on chronic systolic (congestive) heart failure Medications at Discharge Home Medications aspirin 81 mg chewable tablet 81 mg PO DAILY@0800 heart 09/28/14 atorvastatin 80 mg tablet 80 mg PO QHS cholesterol 30 days #30 tabs 06/21/21 clopidogrel 75 mg tablet 75 mg PO DAILY Blood Thinner 30 days #30 tabs 06/21/21 insulin glargine 100 unit/mL (3 mL) subcutaneous pen (Lantus Solostar U-100 Insulin) 20 unit (0.2 mL) subcut BID Diabetes 30 days #12 mL 06/21/21 isosorbide mononitrate 60 mg tablet,extended release 24 hr 60 mg PO DAILY Heart 30 days #30 tabs 01/12/22 ezetimibe 10 mg tablet 10 mg PO DAILY cholesterol 04/07/22 carvedilol 25 mg tablet 25 mg PO BID blood pressure #180 tabs 05/25/22 amlodipine 5 mg tablet 5 mg PO DAILY blood pressure 06/05/22 ferrous sulfate 325 mg (65 mg iron) tablet (FeroSul) 325 mg PO BID supplement #60 tabs 06/08/22 ergocalciferol (vitamin D2) 1,250 mcg (50,000 unit) capsule (Vitamin D2) 50,000 unit PO QWEEK 01/01/23 furosemide 80 mg tablet (Lasix) 80 mg PO BID #60 tabs 01/03/23 levofloxacin 500 mg tablet 500 mg PO Q48H #3 tabs 01/03/23 metolazone 5 mg tablet 5 mg PO DAILY #30 tabs 01/03/23 Hospital Course Operations None Procedures None Summary of Care Provided Minutes Spent on Discharge: 38 Hospital Course: Per HPI: YOSEPH PERSAUD, is a 52 M with history of HFrEF, ischemic cardiomyopathy, CKD stage IV, morbid obesity, type 2 diabetes and hypertension who presented to [facility] ED on 01/01/2023 with worsening shortness of breath. Patient seen at bedside in the ED, son present. Patient requiring 8 L nasal cannula, satting in low 90s, no increased work of breathing noted. Otherwise sitting comfortably in bed, conversing normally, no acute distress. Patient states that he has steadily developed worsening shortness of breath over the last 3 to 4 days. Has been taking his home medications as prescribed. Reports good urine output over that timeframe. Has had a mild cough with whitish sputum production. Otherwise denies any fevers or chills. Denies any chest pain. Denies any abdominal pain. No other acute concerns. Vitals in ED notable for satting in low 90s on 8 L nasal cannula, hypertensive to 170s to 180s systolic, otherwise stable. Labs notable for WBC count 14.3, hemoglobin 10.6, BUN 87, creatinine 3.94, sodium 141, potassium 4.2, BNP 598, procalcitonin 0.23. Chest x-ray on admit shows cardiomegaly with bilateral infiltrates, right consolidation and probable pleural effusion. Hospital Course: 1. Acute systolic CHF exacerbation with acute on chronic hypoxic respiratory failure/community-acquired pneumonia?52-year-old male presented to the hospital with shortness of breath. He was recently admitted to the hospital earlier in the month for the similar issue. I discussed with him extensively the need for fluid restriction as well as a low-salt diet. Discussing the situation with his python engineer he is likely going to start needing dialysis soon however he recently had cardiac stents placed and is on aspirin and Plavix so this will need to be cleared by cardiology prior to having dialysis catheter inserted. In discussion with nephrology, we will increase his Lasix from 20 mg daily to 80 mg p.o. twice daily as well as adding metolazone 5 mg daily. He will need to follow-up with his PCP in a week as well as his python engineer within the next week or 2 for outpatient lab work and monitoring. This was discussed with his python engineer. There is also some possibility that his shortness of breath was due to community-acquired pneumonia as it was read that he had a right lower lobe consolidation we will continue with p.o. Levaquin every 48 hours for 3 more doses. I discussed with him the plan for discharge today he expressed understanding of the risk benefits of going home and would like to go home today. 2. Hypertension, hyperlipidemia, CKD 4, type 2 diabetes, recent onset of possible MGUS versus myeloma are all chronic medical conditions which complicate his care. His home medications were continued where appropriate Physical Exam Narrative General: Alert, Oriented x3, Cooperative, No apparent distress HEENT: Atraumatic, PERRLA, EOMI, Normocephalic Oral: Moist Mucosa Neck: Supple, No JVD Lungs: Diminished, Normal air movement, No rhonchi, No wheeze, No rales Cardiovascular: Regular rate, Regular Rhythm, Normal S1, Normal S2, No murmurs Abdomen: Soft, Non Tender, Non-Distended, No Hepato-splenomegaly Extremities: Edema, Capillary Refill Less than 3 Seconds Skin: No rashes, No breakdown Musculoskeletal: No Tenderness to Palpation of Joints or Extremities Neurological: Cranial nerves II-XII grossly intact, Motor Exam 5/5 strength throughout, Sensory exam intact to light touch and pain Psych/Mental Status: Normal Affect, Appropriate Weight / BMI Weight Weight: 313 lb 0.902 oz Body Mass Index (BMI) 43.7 ABG / Lab / Microbiology Data 01/03/23 05:41 01/03/23 05:41 Laboratory: Laboratory Results - last 24 hr 01/02/23 16:20: POC Glucose 117 H 01/02/23 23:08: POC Glucose 128 H 01/03/23 05:41: WBC 8.4, RBC 3.55 L, Hgb 9.4 L, Hct 31.7 L, MCV 89.3, MCH 26.5 L, MCHC 29.7 L D, RDW Std Deviation 53.2 H, RDW Coeff of Rajendra 16.2 H, Plt Count 247, MPV 10.2, Immature Gran % (Auto) 0.400, Neut % (Auto) 73.4 H, Lymph % (Auto) 7.1 L, [place] % (Auto) 10.0, Eos % (Auto) 8.4 H, Baso % (Auto) 0.7, Absolute Neuts (auto) 6.2, Absolute Lymphs (auto) 0.60 L, Nucleated RBC % 0, Differential Comment SCANNED, Sodium 140, Potassium 4.0, Chloride 110 H, Carbon Dioxide 24.0, Anion Gap 6, BUN 97 H, Creatinine 4.37 H, Estim Creat Clear Calc 20.58, Est GFR (MDRD) Af Amer 18 L, Est GFR (MDRD) Non-Af 15 L, BUN/Creatinine Ratio 22.2 H, Glucose 108 H, Calcium 8.4 L 01/03/23 06:29: POC Glucose 94 01/03/23 11:30: POC Glucose 143 H Microbiology: Microbiology 01/01/23 04:20 Mucosa - Nasopharyngeal Respiratory Panel (PCR) - Final 01/01/23 04:40 Urine, Clean Catch Legionella Antigen - Final 01/01/23 04:40 Urine, Clean Catch Streptococcus pneumoniae Antigen (M - Final 01/01/23 01:04 Nasal Secretion SARS-CoV-2 Antigen (Rapid) - Final Radiography Diagnostic Testing: Radiology Impression Renal Artery Duplex 01/01/23 14:58 Interpretation Summary Right renal artery patent with normal velocities and no evidence of stenosis Left renal artery patent with normal velocities and no evidence of stenosis Right renal vein patent Left renal vein patent Right kidney normal in size Left kidney normal in size Limited study, alternative imaging may be beneficial Ordering Physician: Raheem Dela Cruz Referring Physician: Joseph Ricks Performed By: Altaf Holland RVT D/C Instructions Discharge Diet: Low fat / Low cholesterol, 6 Cup Fluid Restriction and Carb Control Diet Call your doctor if you observe: Fever of 101 or Higher, Shortness of breath, Dizziness, Fainting spells, Swelling in the ankles, Chest pain and Increased palpitations (irregular heartbeat) Meaningful Use Info Meaningful Use Diagnoses (Choose all that apply): None applicable Discharge Plan Admission Admit Date/Time: 01/01/23 01:24 Attending Provider: Favio Garduno Primary Care Provider: Joseph Ricks Consulting Providers: Francisoc Akbar; Alfonso Joya; Raheem Dela Cruz; Alonzo Aviles Discharge Orders/Prescriptions Prescriptions: New levofloxacin 500 mg tablet 500 mg PO Q48H Qty: 3 0RF furosemide [Lasix] 80 mg tablet 80 mg PO BID Qty: 60 0RF metolazone 5 mg tablet 5 mg PO DAILY Qty: 30 0RF Continued aspirin 81 MG tablet,chewable 81 mg PO DAILY@0800 Patient Comments: [facility] atorvastatin 80 MG tablet 80 mg PO QHS 30 Days Qty: 30 0RF clopidogrel 75 MG tablet 75 mg PO DAILY 30 Days Qty: 30 0RF insulin glargine [Lantus Solostar U-100 Insulin] 100 unit/mL (3 mL) insulin pen 20 unit subcut BID 30 Days Qty: 12 0RF Rx Instructions: Takes if Blood sugar > 150 ezetimibe 10 mg tablet 10 mg PO DAILY Patient Comments: TAKE 1 TABLET BY MOUTH EVERY DAY amlodipine 5 mg tablet 5 mg PO DAILY Patient Comments: TAKE ONE TABLET BY MOUTH DAILY ferrous sulfate [FeroSul] 325 mg (65 mg iron) Tablet 325 mg PO BID Qty: 60 0RF ergocalciferol (vitamin D2) [Vitamin D2] 1,250 mcg (50,000 unit) capsule 50,000 unit PO QWEEK isosorbide mononitrate 60 mg tablet extended release 24 hr 60 mg PO DAILY 30 Days Qty: 30 11RF Rx Instructions: please refill now carvedilol 25 mg tablet 25 mg PO BID Qty: 180 3RF Rx Instructions: must administer with a meal/food Discontinued doxycycline monohydrate 100 mg capsule 100 mg PO BID Qty: 84 0RF Rx Instructions: one twice a day for 6 weeks furosemide 20 mg tablet 20 mg PO DAILY Qty: 30 0RF Referrals / Follow Up: Francisco Akbar MD [Med Staff - Consulting] - Within 1 Week Joseph Ricks MD [Primary Care Provider] - Within 1 Week Disposition Disposition (needs filled in before D/C Order can be placed): Home, Self Care Charges/Coding Visit Charges Inpatient E&M: 11964 Disch Hosp >30min
--- NOTE | 2023-01-03 13:57 | CASEMGMT ---
Patient has order for discharge. Patient will need updated oxygen order. Script received and sent to [facility] via [employer] RN CM in to discuss discharge with patient. Patient denies needs at discharge. RN CM reminded patient to have son bring oxygen tank from home, patient voiced understanding. Patient had no further questions or concerns at this time. Order received by hospitalist for palliative consult. Palliative screening tool completed and sent to [facility] palliative.
[2023-01-03 16:41] LABS: Bedside Glucose 128 mg/dL (74-106)
== END 2023-01-03 18:53 | disposition home or self-care (01) | DRG 291 ==
LOC: ED 01-01 01:08 → ICU 01-01 01:28 → PCU 01-02 14:04
PROVIDERS: Internal Medicine; Admitting Provider Hospitalist; Emergency Provider Emergency Medicine; PCP Family Medicine; Visit Provider Family Medicine
DX: I13.0 Hypertensive heart and chronic kidney disease with heart failure and stage 1 through stage 4 chronic kidney disease, or unspecified chronic kidney disease (principal); J18.9 Pneumonia, unspecified organism; J96.21 Acute and chronic respiratory failure with hypoxia; I50.23 Acute on chronic systolic (congestive) heart failure; C90.00 Multiple myeloma not having achieved remission; N18.4 Chronic kidney disease, stage 4 (severe); Z68.41 Body mass index [BMI] 40.0-44.9, adult; E11.22 Type 2 diabetes mellitus with diabetic chronic kidney disease; D50.9 Iron deficiency anemia, unspecified; E11.42 Type 2 diabetes mellitus with diabetic polyneuropathy; Z79.4 Long term (current) use of insulin; E78.5 Hyperlipidemia, unspecified; I25.10 Atherosclerotic heart disease of native coronary artery without angina pectoris; I25.5 Ischemic cardiomyopathy; E66.9 Obesity, unspecified; Z79.82 Long term (current) use of aspirin; Z79.2 Long term (current) use of antibiotics; Z79.02 Long term (current) use of antithrombotics/antiplatelets; Z95.5 Presence of coronary angioplasty implant and graft; Z86.16 Personal history of COVID-19
CPT/HCPCS: 36415; 71045; 80048; 82962; 83735; 83880; 84100; 84145; 84484; 85025; 85027; 87040; 87449; 87633; 87811; 93005; 93975; 94640; 94668; 97162; 97165; 97530; 99285; A4216; J1940

== ENCOUNTER → 2023-02-09 | Outpatient (CLI) | payer OTHER, SELFPAY ==
[2018-12-25 08:56] VITALS: BMI 37.9
[2023-02-09] VITALS (13 sets, daily range): BP systolic 149–182; BP diastolic 80–112; PULSE 62–68; RESP 12–16; TEMP 36.3; O2SAT 92–100; BMI 40.1
--- NOTE | 2023-02-09 | BMB_PTH ---
PATIENT: YOSEPH PERSAUD Jr. LOC: [place] U#:[id number] AGE/SX: 52/M ROOM: RE02/09/[address]: Dr. Peewee Heard DO : 1970 BED: DIS: 02/09/2023 SPEC #: [id number] RECD: 02/09/23 11:18 STATUS: TOMMY RERay #: [id number] AGGIE: 02/09/23 00:[address]: Peewee Heard DEPT: BONE MARROW RECD BY: Denia William ENTERED: 02/09/23 11:19 SP TYPE: BMB ARABELLA DR: Dr. Joseph Ricks MD Tissues: A - Bone marrow, NOS B - Bone marrow, NOS C - Bone marrow, NOS Procedures: Decalcification bone/plaque Bone Marrow Aspiration Bone Marrow Core Biopsy Iron Stain Bone Marrow HEADER OPERATION: Bone marrow biopsy and aspiration PRE-OP DIAGNOSIS: Monoclonal gammopathy, stage 4 CKD TISSUE SUBMITTED: A - Core, B - Clot, C - Smears, and send outs (flow, cytogenetics & FISH MM) BONE MARROW DIAGNOSIS Bone marrow core, clot, and aspirate: Plasma cell neoplasm with kappa monoclonality. See bone marrow study and comment. SJ: 02/13/2023 COMMENT Immunohistochemistry ([id number]) supports the above diagnosis. Findings may represent multiple myeloma in appropriate clinical settings. Flow cytometry from [facility] shows monotypic plasma cell population(1%) of the total cells analyzed. Complete report is viewable patient's EMR. FISH report shows nuclei positive for trisomy 11 (multiple myeloma related clone detected). Complete report is viewable in patient's EMR. Chromosomal studies are pending. Correlation with clinical, laboratory findings and appropriate follow up are necessary. Case has been reviewed in consultation with Dr. Buenrostro who concurs with the above diagnosis. IDC:AM BONE MARROW STUDY CBC DATE: 02/08/2023 WBC 9.64; RBC 5.01; HGB 12.9; HCT 40.2; MCV 80.2; RDW 14.3; PLTS 246,000 SEGS 76.0%; LYMPHS 8.5%; MONOS 8.7%; EOS 7.6%; BASOS 0.9%; IMMATURE GRANULOCYTES 0.3% PERIPHERAL SMEAR: Submitted. RBC: Normocytic and normochromic. WBC: Unremarkable. The WBC count is compatible to as reported above. PLTS: Adequate. Bone Marrow aspirate differential: not performed ASPIRATE FINDINGS: Site. Not specified. Paucispicular hemodiluted smears Comment: All submitted smears are examined. Smears show rare bone marrow spicules. Several clusters of plasma cells are noted. Immature plasma cells are not seen. CORE BIOPSY FINDINGS: Site: not specified. Adequacy: Adequate Cellularity: 60% M/E ratio: Within normal limits. Megakaryocytes: Present and adequate in number. Bony trabeculae: Unremarkable. Granulomas: Absent. Lymphoid aggregate: Absent. Atypical infiltrate: Present Comment: Clusters and interstitial infiltrates of plasma cells noted. Immunohistochemistry ([id number]) supports the diagnosis of plasma cell neoplasm with kappa monoclonality. Plasma cells comprise ~50% of total nucleated population. ASPIRATE CLOT FINDINGS: Site: not specified. Marrow particles: rare Comment: The specimens predominantly consist of blood with rare clusters of plasma cells SPECIAL STAINS WITH MATCHED CONTROLS: Iron: Absent Reticulin: Mild increase of reticulin fibers is noted. PAS: Highlights myeloid cells and megakaryocytes. Slides are reviewed. BONE MARROW GROSS A - Received is a container labeled with the patient's name and designated bone marrow. The specimen consists of a few minute fragments of vazquez bone measuring in aggregate 0.3 x 0.2 x 0.1 cm. The specimen is totally submitted in one cassette after decalcification. B - Received labeled with the patient's name and designated bone marrow is a specimen that consists of approximately 4 ml of bloody fluid that on filtration yields multiple minute fragments of blood clots measuring in aggregate 2.5 x 1.5 x 0.2 cm. The specimen is totally submitted in one cassette. C - Also received are 12 unstained and 1 peripheral stained slides. The unstained slides are submitted for appropriate staining. Also received is one green top tube which is sent to our reference lab for flow, cytogenetics & FISH MM. / SJ:rg 02/09/2023 TC:0 CPT: 00685, 61360, 37635 x2, 03825 x3, 40290 ADDENDUM ADDENDUM ADDENDUM ADDENDUM ADDENDUM ADDENDUM ADDENDUM ADDENDUM ADDENDUM ADDENDUM ADDENDUM ADDENDUM ADDENDUM ADDENDUM 03/02/2023 10:17 ADDENDUM 03/02/2023 10:17 ADDENDUM 03/02/2023 10:17 ADDENDUM 03/02/2023 10:17 ADDENDUM 03/02/2023 10:17 [facility]: 46,XY[20] INTERPRETATION: Normal male karyotype was observed in twenty metaphases analyzed. MULTIPLE MYELOMA FISH PANEL FISH RESULT: Nuclei positive for Trisomy 11 INTERPRETATION: Multiple myeloma related clone detected. Please see complete report in e-chart or EMR
--- NOTE | 2023-02-09 | CT_ITS ---
PROCEDURE: CT GUIDED bone marrow biopsy of the left posterior iliac bone. DATE: February 09, 2023. INDICATION: Male, 52 years old. Decreased platelets. PHYSICIAN: Dario Ponce M.D. RADIATION DOSAGE (If Supplied By Facility): CTDIvol = ( 27 ) mGy, DLP = ( 1329.2 ) mGycm. In the visualized dose optimization technique was utilized. PROCEDURE: The risks, benefits, and alternatives to the procedure were explained to the patient. The specific risk of hemorrhage requiring further treatment or intervention was detailed and accepted. Follow-up instructions were discussed with the patient as well. Written informed consent was obtained. The patient was brought into the CT suite and placed in the prone position.. . An appropriate entry site was identified. The overlying skin was prepped and draped in the usual sterile fashion. 1% lidocaine was administered subcutaneously for local anesthesia. Conscious sedation was performed. The patient received 2 mg of Versed and 50 mcg of fentanyl intravenously. Conscious sedation lasted for 18 minutes. The patient was independently monitored by the department nurse. Under CT guidance, a bone marrow biopsy of the posterior left iliac bone as well as bone marrow aspirates were performed utilizing 11-gauge core biopsy needle system. The specimens were then placed in the appropriate fluid and transported to the laboratory for analysis. Hemostasis was obtained. The patient tolerated the procedure well without immediate complications. CT/Biopsy/Inj or Needle Placement IMPRESSION: Successful CT guided bone marrow biopsy of the left posterior iliac bone and bone marrow aspiration, as described above. Conscious sedation protocol was followed. Electronically Signed: Dario Ponce MD at 9:08 EDT ,
--- NOTE | 2023-02-09 | IMM_PTH ---
PATIENT: YOSEPH PERSAUD Jr. LOC: CT U#:[id number] AGE/SX: 52/M ROOM: RE02/09/[address]: Dr. Peewee Heard DO : 1970 BED: DIS: 02/09/2023 SPEC #: [id number] RECD: 02/12/23 10:42 STATUS: TOMMY REQ #: [id number] AGGIE: 02/09/23 00:[address]: Peewee Heard DEPT: IMMUNOHISTOCHEMISTRY RECD BY: Perlita Maher ENTERED: 02/12/23 10:43 SP TYPE: IMMUNO OTHR DR: Dr. Joseph Ricks MD Tissues: A - Bone marrow of iliac crest Procedures: CD138 (add) KAPPA (add) KI-67 (add) LAMBDA (add) CD45 (initial) PHYSICIAN & INSTITUTION [place] [id number] SPECIMEN INFORMATION: Tissue Source: Bone marrow core, biopsy Clinical Info: Monoclonal gammopathy, stage 4CKD Specimen Number: [id number] CPT code: 85039, 61380 x4 METHODOLOGY: Deparaffinized sections of prefer/formalin-fixed tissue or PAP/DQ stained slides are incubated with monoclonal/polyclonal antibodies/oligonucleotide probes. Localization is made via biotin free immunoperoxidase method. Appropriate controls are performed and reacted as expected. Results on target cell population are indicated in the following table: RESULTS: ANTIBODY / CLONE RESULT CD45 (RP2/18) negative * CD138 (B-A38) positive [place] (Noracastra oligonucleotide probe) positive Lambda (Noracastra oligonucleotide probe) negative Ki-67 (30-9) positive, low * Positive in background lymphocytes These tests were developed and their performance characteristics determined by [facility]. They may not have been cleared or approved by the U.S. Food and Drug Administration. The FDA has determined that such clearance or approval is not necessary. The above immunohistochemical/dualISH markers are ordered and reviewed by the Pathologist. INTERPRETATION: Bone marrow core, biopsy: Plasma cell neoplasm with [place] monoclonality. See comment. Comment: The findings may represents multiple myeloma in the appropriate clinical setting. SJ:len 02/13/23
[2023-02-09 07:38] LABS: Absolute Lymphocyte Count 0.82 X10^3/uL (0.83-4.51); Absolute Neutrophil Count 7.1 X10^3/uL (2.0-7.7); Basophil# 0.09 X10^3/uL; Basophil% 0.9 % (0-1); Eosinophil# 0.73 X10^3/uL; Eosinophils% 7.6 % (0-5); Hematocrit 40.2 % (40-54); Hemoglobin 12.9 g/dL (13.0-16.5); Lymphocyte # 0.82 X10^3/ul (0.83-4.51); Lymphocyte % 8.5 % (19-41); Mean Corp Hgb Conc 32.1 g/dL (32-36); Mean Corpuscular Hgb 25.7 pg (27.0-32.0); Mean Corpuscular Volume 80.2 fL (80-94); Mean Platelet Vol. 10.8 fl (6.2-12.0); Monocyte# 0.84 X10^3/uL; Monocyte% 8.7 % (0-10); NRBC Flagged by Analyzer 0 % (0-5); Neutrophil # 7.13 X10^3/uL (2.7-7.7); Platelet Count 246 K/mm3 (150-450); RBC Distribution Width CV 14.3 % (11.6-14.6); RBC Distribution Width SD 41.5 fl (35.1-43.9); Red Blood Count 5.01 M/mm3 (4.6-6.2); White Blood Count 9.6 K/mm3 (4.4-11.0)
[2023-02-09 07:44] LABS: Prothrombin Time (Protime)PT. 13.3 SECONDS (11.7-14.9)
[2023-02-09 07:46] LABS: Partial Thromboplast Time 24.9 Seconds (24.1-36.2)
[2023-02-09] MEDS: Midazolam 2 MG/2 ML Syringe IV (08:29)
[2023-02-09] MEDS: 0.9% Normal Saline (250mL Bag) 250 ML 15 ML IV (08:29)
[2023-02-09] MEDS: fentaNYL 100 MCG/2 ML Ampul IV (08:31)
[2023-02-09] MEDS: Lidocaine 2% (20 ml mdv) 20 ML Vial INFILT (08:39)
--- NOTE | 2023-02-09 09:11 | PRO.PCM_ITS ---
Procedure Report Date of Procedure: 02/09/23 Assessment & Plan Assessment/Plan (1) Monoclonal gammopathy: PLAN: PROCEDURE: CT guided bone marrow biopsy and aspiration of the left iliac bone ORDERING PROVIDER: Dr. Heard INDICATION: Male, 52 years old. Monoclonal gammopathy. PROVIDER: Samantha Ross APRN-GROUP RESERVATIONS COORDINATOR RADIATION DOSAGE (If Supplied By Facility): CTDIvol = 25.46 mGy, DLP = 1329.20 mGycm. Individualized dose optimization techniques were utilized. CONSENT: The risks, benefits, and alternatives to the procedure were explained to the patient. The specific risk of hemorrhage requiring further treatment or intervention was detailed and accepted. Follow-up instructions were discussed with the patient as well. Written informed consent was obtained. PRE-PROCEDURE SEDATION ASSESSMENT: Current history and physical dictated by referring physician and reviewed. No clinical changes since date of exam. Patient has an ASA Class of 2. PROCEDURAL SEDATION PROTOCOL: The Drugs used were: 2 mg Versed, IV, and 50 mcg Fentanyl, IV. The sedation time was: 20 minutes, starting at 0829 and terminated at 0849. The procedural sedation protocol was independently monitored by the department nurse. TECHNIQUE The patient was brought into the CT suite and placed in the prone position. An appropriate entry site was identified. The overlying skin was prepped and draped in the usual sterile fashion. 2% lidocaine was administered subcutaneously for local anesthesia. Under CT guidance, a bone marrow biopsy and bone marrow aspirate were performed of the left ilium using an 11-gauge bone marrow biopsy kit. Hematology staff was present to prepare the specimen slides and transport the specimen to the laboratory for analysis. Hemostasis was obtained, and a sterile occlusive dressing was applied. The pa tient tolerated the procedure well without immediate complications. IMPRESSION: Successful CT guided bone marrow biopsy and aspiration of the left ilium as described. Procedural Sedation protocol utilized with independent monitoring by the department nurse. Procedures Radiology Radiology CT Procedures: 71022 Biopsy Bone Marrow
== END | disposition home or self-care (01) ==
PROVIDERS: Radiology Diagnostic Radiology; PCP Family Medicine; Referring Provider Internal Medicine Hematology & Oncology; Visit Provider Internal Medicine Hematology & Oncology
DX: D47.2 Monoclonal gammopathy (principal)
CPT/HCPCS: 20220; 38222; 36415; 77012; 85025; 85610; 85730; 88305; 88311; 88313; 88341; 88342; 96374; 99156; J7050; A4216

== ENCOUNTER → 2023-02-23 | Outpatient (CLI) | payer OTHER, SELFPAY ==
[2018-12-25 08:56] VITALS: BMI 37.9
[2023-02-23 09:46] LABS: Hepatitis B Surface Antigen Non-Reactive (Nonreactive)
== END | disposition home or self-care (01) ==
PROVIDERS: PCP Family Medicine; Referring Provider Internal Medicine Nephrology; Visit Provider Internal Medicine Nephrology
DX: N18.5 Chronic kidney disease, stage 5 (principal)
CPT/HCPCS: 36415; 87340

== ENCOUNTER → 2023-03-15 | Outpatient (CLI) | payer OTHER, SELFPAY ==
[2018-12-25 08:56] VITALS: BMI 37.9
--- NOTE | 2023-03-15 09:56 | VDUE_ITS ---
Reason For Study: Pre op Right Lower Arm Left Arm Proximal Radial artery diameter 2.6 x 2.5 Left Brachial artery diameter 5.7 x 4.7 mm. mm. Left Brachial artery waveform is triphasic . Proximal Radial artery waveform is Lateral Brachial vein diameter 3.7 x 3.0 mm. triphasic . Medial Brachial vein diameter 1.8 x 2.0 mm. Proximal Lateral Radial vein diameter 2.5 x Lathe Spotter Vein is present. 2.4 mm. Lathe Spotter Vein measures 2.8 mm. Proximal Medial Radial vein diameter 2.3 x Cephalic Vein at proximal upper arm measures 2.3 mm. 3.2 x 3.2 mm. Distal Radial artery diameter 1.6 x 1.7 mm. Cephalic vein at proximal upper arm depth Distal Lateral Radial vein diameter 1.2 x measures 17.1 mm. 1.1 mm. Cephalic Vein at mid upper arm measures 4.8 Distal Medial Radial vein diameter 1.6 x 1.6 x 5.4 mm. mm. Cephalic vein at mid upper arm depth Proximal Ulnar artery diameter 3.9 x 3.8 mm. measures 4.4 mm. Proximal Ulnar artery waveform is Cephalic Vein distal upper arm measures 4.3 triphasic . x 4.6 mm. Proximal Lateral Ulnar vein diameter 3.3 x Cephalic vein at distal upper arm depth 3.8 mm. measures 5.1 mm. Proximal Medial Ulnar vein diameter 3.4 x Cephalic Vein proximal forearm measures 2.5 3.5 mm. x 2.4 mm. Distal Ulnar artery diameter 1.7 x 2.0 mm. Cephalic Vein at mid forearm measures 4.0 x Distal Lateral Ulnar vein diameter 0.8 x 0.8 4.0 mm. mm. Cephalic Vein at distal forearm measures 2.7 Distal Medial Ulnar vein diameter 1.1 x 1.0 x 3.1 mm. mm. Proximal Basilic vein measures 5.5 x 5.3 mm. Right Arm Proximal Basilic vein depth measures 13.9 Right Brachial artery diameter 4.7 x 5.0 mm. mm. Right Brachial artery waveform is Mid Basilic vein measures 4.1 x 4.1 mm. triphasic . Mid Basilic vein depth measures 11.4 mm. Lateral Brachial vein diameter 2.8 x 3.1 mm. Distal Basilic vein measures 4.9 x 4.8 mm. Medial Brachial vein diameter 2.9 x 2.9 mm. Distal Basilic vein depth measures 8.1 mm. Lathe Spotter Vein is present. Left Lower Arm Lathe Spotter Vein measures 3.8 mm. Proximal Radial artery diameter 2.8 x 2.5 Cephalic Vein at proximal upper arm measures mm. 3.2 x 3.3 mm. Proximal Radial artery waveform is Cephalic vein at proximal upper arm depth triphasic . measures 12.4 mm. Proximal Lateral Radial vein diameter 1.4 x Cephalic Vein at mid upper arm measures 3.8 1.3 mm. x 3.8 mm. Proximal Medial Radial vein diameter 1.7 x Cephalic vein at mid upper arm depth 1.9 mm. measures 6.7 mm. Distal Radial artery diameter 2.1 x 2.0 mm. Cephalic Vein distal upper arm measures 4.8 Distal Lateral Radial vein diameter 1.3 x x 5.1 mm. 1.3 mm. Cephalic vein at distal upper arm depth Distal Medial Radial vein diameter 0.9 x 1.0 measures 6.0 mm. mm. Cephalic Vein proximal forearm measures 3.5 Proximal Ulnar artery diameter 3.9 x 3.2 mm. x 3.6 mm. Proximal Ulnar artery waveform is Cephalic Vein at mid forearm measures 2.5 x triphasic . 2.5 mm. Proximal Lateral Ulnar vein diameter 3.3 x Cephalic Vein at distal forearm measures 3.2 3.3 mm. x 3.4 mm. Proximal Medial Ulnar vein diameter 3.5 x Proximal Basilic vein measures 5.8 x 6.1 mm. 3.6 mm. Proximal Basilic vein depth measures 15.0 Distal Ulnar artery diameter 1.7 x 1.8 mm. mm. Distal Lateral Ulnar vein diameter 1.1 x 1.1 Mid Basilic vein measures 4.8 x 4.8 mm. mm. Mid Basilic vein depth measures 9.7 mm. Distal Medial Ulnar vein diameter 1.1 x 1.3 Distal Basilic vein measures 4.8 x 5.2 mm. mm. Distal Basilic vein depth measures 5.0 mm. VL/Dialysis Vein Map PRE-OP BILAT Interpretation Summary Bilateral upper extremity deep and superficial veins patent with measurements a kenan. Bilateral upper extremity arteries patent with normal waveforms throughout and measurements above. Ordering Physician: Francisco Akbar Referring Physician: Joseph Ricks Performed By: Taylor Nur RVT ???
== END | disposition home or self-care (01) ==
LOC: CVS 09:51
PROVIDERS: PCP Family Medicine; Referring Provider Internal Medicine Nephrology; Visit Provider Internal Medicine Nephrology
DX: N18.6 End stage renal disease (principal)
CPT/HCPCS: 93985

== ENCOUNTER 2023-08-20 22:18 | Inpatient (IN) | payer MEDICARE, SELFPAY ==
[2023-04-20 14:48] VITALS: BMI 37.9
[2023-08-20] VITALS (11 sets, daily range): BP systolic 146–177; BP diastolic 81–100; PULSE 71–78; RESP 17–30; TEMP 36.4–36.6; O2SAT 65–95; BMI 49.0
--- NOTE | 2023-08-20 22:28 | ED.VIS.DYS ---
HPI History of Present Illness Chief Complaint: Shortness of Breath Informant: patient, family and EMS Narrative Narrative: Patient presented to the ER by EMS hypoxic in the 70s at home not on home oxygen, started having dyspnea yesterday gradually worsening today along with edema in his legs, orthopnea, dyspnea with little exertion, less than usual, no chest discomfort. No syncope, no fevers or chills, minor nonproductive chronic cough that is no worse than usual. He states because he felt so bad he skipped dialysis today. The last time he went to dialysis was Sunday, today being Sunday. He states he has a history of congestive heart failure as well as multiple myeloma and he is getting chemotherapy with [facility] cardiology for that. No fevers lately. [facility] Medical History CORA (acute kidney injury) Anemia in chronic illness Atherosclerotic heart disease of [place] coronary artery without angina pectoris Carotid artery stenosis Chronic diastolic (congestive) heart failure Chronic kidney disease Chronic kidney disease CKD stage 4 due to type 2 diabetes mellitus Coronary artery disease Depression Diabetes mellitus Diabetes mellitus with diabetic polyneuropathy Diabetes mellitus, type II Diabetic infection of left foot Edema, peripheral Essential (primary) hypertension History of non-ST elevation myocardial infarction (NSTEMI) (08/25/22) History of stress test Hyperlipidemia Hyperlipidemia Hypertension Hypertension Hypomagnesemia Infected sebaceous cyst Insulin dependent diabetes mellitus Ischemic cardiomyopathy (06/2013) Left ventricular systolic dysfunction (LVSD) Non-pressure 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 of bone Non-pressure chronic ulcer of other part of left foot with fat layer exposed Non-pressure chronic ulcer of other part of left foot with fat layer exposed Obesity Other acute osteomyelitis, right ankle and foot Paresthesias Partial nontraumatic amputation of right foot Pneumonia due to COVID-19 virus (03/14/20) Postoperative cardiac arrest following non-cardiac surgery Type 2 diabetes mellitus with diabetic neuropathy, unspecified Type 2 diabetes mellitus with diabetic polyneuropathy Type 2 diabetes mellitus with diabetic polyneuropathy Type 2 diabetes mellitus with foot ulcer Ulcer of right foot with fat layer exposed Venous insufficiency Venous insufficiency of both lower extremities Home Medications aspirin 81 mg chewable tablet 81 mg PO DAILY@0800 heart 09/28/14 [History Last Taken 12/20/18] clopidogrel 75 mg tablet 75 mg PO DAILY Blood Thinner 30 days #30 tabs 06/21/21 [Rx Last Taken Unknown] ezetimibe 10 mg tablet 10 mg PO DAILY cholesterol 04/07/22 [History Last Taken Unknown] carvedilol 25 mg tablet 25 mg PO BID blood pressure #180 tabs 05/25/22 [Rx Last Taken Unknown] amlodipine 5 mg tablet 5 mg PO DAILY blood pressure 06/05/22 [History Last Taken Unknown] ergocalciferol (vitamin D2) 1,250 mcg (50,000 unit) capsule (Vitamin D2) 50,000 unit PO QWEEK 01/01/23 [History Last Taken Unknown] furosemide 80 mg tablet (Lasix) 80 mg PO BID #60 tabs 01/03/23 [Rx Last Taken Unknown] metolazone 5 mg tablet 5 mg PO DAILY #30 tabs 01/03/23 [Rx Last Taken Unknown] insulin glargine 100 unit/mL (3 mL) subcutaneous pen (Lantus Solostar U-100 Insulin) 20 unit subcut BID Diabetes 02/09/23 [History Last Taken Unknown] atorvastatin 40 mg tablet 80 mg PO QHS cholesterol 08/20/23 [History Last Taken Unknown] calcium acetate(phosphat bind) 667 mg capsule 667 mg PO TID 08/20/23 [History Last Taken Unknown] insulin lispro 100 unit/mL subcutaneous pen (Humalog KwikPen (U-100) Insulin) subcut 08/20/23 [History Last Taken Unknown] Allergy/AdvReac Type Severity Reaction Status Date / Time lisinopril AdvReac Intermediate Cough Verified 08/20/23 22:37 losartan AdvReac Intermediate cough Verified 08/20/23 22:37 Family History Father , Age 57 from [place] Myocardial infarction CAD (coronary artery disease) Sudden cardiac Mother Sick sinus syndrome Sister Diabetes Other History of coronary artery stent placement History of non-ST elevation myocardial infarction (NSTEMI) Surgical History H/O cardiac catheterization History of coronary artery stent placement (08/28/22) Social History household members: none Smoking Status: Never smoker alcohol intake: current alcohol intake frequency: holidays/special occasions only substance use type: does not use caffeine: Yes Type: carbonated beverages Number of servings: 2 ROS ROS ED Constitutional Constitutional ED: Denies chills or fever(s) Eyes Eyes: Denies change in vision or diplopia ENT ENT ED: Denies rhinorrhea or sore throat Cardiovascular Cardiovascular: Reports leg edema and orthopnea; Denies chest pain, lightheadedness, palpitations or syncope Respiratory/Chest Respiratory/Chest: Reports cough, dyspnea, dyspnea on exertion and orthopnea; Denies sputum Gastrointestinal Gastrointestinal: Denies abdominal pain, diarrhea, nausea or vomiting Musculoskeletal Musculoskeletal: Denies back pain or neck pain Integumentary Denies abscess or rash Neurologic Neurologic: Denies headache(s), paresthesias or weakness Psychiatric Psychiatric: Denies suicidal ideation or suicidal thoughts EXAM Physical Exam Const Vital Signs: 08/20/23 22:18 08/20/23 22:21 08/20/23 22:24 Temperature 97.9 F 97.9 F Temperature Source Oral Oral Pulse Rate 78 78 78 Respiratory Rate 30 H 26 H 29 H Respiratory Effort Respiratory Pattern Blood Pressure 177/100 H Blood Pressure Mean 125 Pulse Ox 65 95 90 Oxygen Delivery Method Room Air Nasal Cannula Non-Rebreather Oxygen Flow Rate (L/min) 6 15 08/20/23 22:35 08/20/23 22:37 08/20/23 22:35 Temperature Temperature Source Pulse Rate 78 Respiratory Rate 28 H Respiratory Effort Short of Breath Respiratory Pattern Tachypnea Tachypnea Blood Pressure Blood Pressure Mean Pulse Ox 95 Oxygen Delivery Method Non-Rebreather Nasal Cannula Oxygen Flow Rate (L/min) 10 8 08/20/23 23:21 08/21/23 00:00 08/21/23 00:34 Temperature 97.6 F L 98.6 F 98.0 F Temperature Source Temporal Oral Pulse Rate 73 82 78 Respiratory Rate 23 H 22 H 17 Respiratory Effort Respiratory Pattern Blood Pressure 159/81 H 155/83 H 162/80 H Blood Pressure Mean 107 107 107 Pulse Ox 94 96 95 Oxygen Delivery Method High Flow High Flow Oxygen Flow Rate (L/min) 9 08/21/23 01:00 Temperature 98.2 F Temperature Source Temporal Pulse Rate 70 Respiratory Rate 18 Respiratory Effort Respiratory Pattern Blood Pressure 145/81 H Blood Pressure Mean 102 Pulse Ox 93 Oxygen Delivery Method High Flow Oxygen Flow Rate (L/min) 9 Positive well nourished, well developed and obese Constitutional Narrative: Tachypneic no respiratory distress General Appearance ED: well developed Nutritional Appearance: obese HEENT Reports moist mucous membranes normocephalic and atraumatic Eyes PERRL and EOMs intact bilaterally Neck full ROM, supple and no JVD Chest Wall Chest Narrative: Right upper chest Port-A-Cath placement benign site Resp Resp Narrative: Diminished breath sounds right base more so than the left. Does not sound rhonchorous. Tachypnea but no respiratory distress. Auscultation: Negative for rales, rhonchi or wheezes Cardio regular rate and regular rhythm Cardio Narrative: Faint heart sounds GI non-tender and non-distended Auscultation: normoactive bowel sounds Palpation: soft Back/Spine no CVA tenderness General Back: other FROM Extremity normal to inspection General Extremety ED: Yes edema; Negative for pulses abnormal or tenderness General Extremity: edema bilateral lower extremity Details: moderate; Negative for pulses abnormal Neuro oriented x3, CN's II-XII intact bilaterally and no sensory deficits noted Sensorium / Orientation: awake and alert Motor Exam: strength 5/5 throughout Psych Psych Narrative: Flat affect Skin no rashes or lesions noted and no wounds MDM MDM MDM Narrative Medical decision making narrative: Although his lungs do not sound wet, this may be due to him being very obese, his chest x-ray 1 view my interpretation shows pulmonary edema. Radiology in agreement. He is hypertensive, he is in significant renal failure more so than usual, likely not hyperkalemic and after nebulizer and oxygen he is breathing well and not in respiratory distress. We were able to move him down to high flow nasal cannula from a mask. He is clinically stable and hemodynamically stable right now. I think he needs urgent dialysis but I do not think he needs it emergently given that it is midnight he should be able to wait to the morning. I will discuss with nephrology and hospitalist for admission, and I will also give the patient a dose of IV diuretic since he states he is on them and does urinate when he takes them. History & Record Review Additional record(s) reviewed:: Prior labs Lab Data Attestation: I reviewed the patient's lab results. Labs: Laboratory Results - last 24 hr 08/20/23 22:31 WBC 8.5 RBC 2.97 L Hgb 9.4 L Hct 29.5 L MCV 99.3 H MCH 31.6 MCHC 31.9 L RDW Std Deviation 58.6 H RDW Coeff of Rajendra 16.1 H Plt Count 189 MPV 10.8 Immature Gran % (Auto) 1.600 H Neut % (Auto) 81.2 H Lymph % (Auto) 6.0 L Wirt % (Auto) 8.0 Eos % (Auto) 2.3 Baso % (Auto) 0.9 Absolute Neuts (auto) 6.9 Absolute Lymphs (auto) 0.51 L Nucleated RBC % 0.5 Sodium 137 Potassium 4.0 Chloride 98 Carbon Dioxide 26.0 Anion Gap 13 BUN 104 H* Creatinine 8.37 H* Estim Creat Clear Calc 15.38 Est GFR (MDRD) Af Amer 9 L Est GFR (MDRD) Non-Af 7 L BUN/Creatinine Ratio 12.4 Glucose 271 H Calcium 7.1 L Troponin I High Sens 128 H* Radiography Diagnostic Testing: Clinical Impression(s) from Imaging Studies Chest X-Ray 08/20/23 23:05 IMPRESSION: Central pulmonary vascular congestion, interstitial edema and small pleural effusions. Findings may indicate CHF. Electronically Signed: Sedrick Valiente MD at 23:40 EDT , Rhythm Strip Rhythm Strip: Sinus Rhythm Rate: 75 Ectopy: PVC(s) EKG Initial EKG: Attestation: I personally reviewed and interpreted this EKG as follows: Interpretation: Sinus Rhythm, No Acute Injury Pattern and S-T Depression (<0.5mm, V5-6, I & aVL) Prior EKG tracings: available for review (12/31/22) Prior: Unchanged Management Discussion w/another healthcare provider: Hospitalist and [employer] Supervisor (nephrology Evan - agrees w/ dialysis in AM) Discharge Plan Triage Chief Complaint: Shortness of Breath ED Provider: Simón Casey Dx/Rx/DC Orders Clinical Impression: Acute hypoxemic respiratory failure, CKD (chronic kidney disease), stage IV, Acute exacerbation of CHF (congestive heart failure), Hyperglycemia due to type 2 diabetes mellitus Prescriptions: No Action aspirin 81 MG tablet,chewable 81 mg PO DAILY@0800 Patient Comments: [facility] clopidogrel 75 MG tablet 75 mg PO DAILY 30 Days Qty: 30 0RF ezetimibe 10 mg tablet 10 mg PO DAILY Patient Comments: TAKE 1 TABLET BY MOUTH EVERY DAY amlodipine 5 mg tablet 5 mg PO DAILY Patient Comments: TAKE ONE TABLET BY MOUTH DAILY ergocalciferol (vitamin D2) [Vitamin D2] 1,250 mcg (50,000 unit) capsule 50,000 unit PO QWEEK furosemide [Lasix] 80 mg tablet 80 mg PO BID Qty: 60 0RF metolazone 5 mg tablet 5 mg PO DAILY Qty: 30 0RF insulin glargine [Lantus Solostar U-100 Insulin] 100 unit/mL (3 mL) insulin pen 20 unit subcut BID Patient Comments: Takes if Blood sugar > 150 Rx Instructions: Takes if Blood sugar > 150 atorvastatin 40 mg tablet 80 mg PO QHS insulin lispro [Humalog KwikPen Insulin] 100 unit/mL insulin pen subcut calcium acetate(phosphat bind) 667 mg capsule 667 mg PO TID carvedilol 25 mg tablet 25 mg PO BID Qty: 180 3RF Rx Instructions: must administer with a meal/food Primary Care Provider: Joseph Ricks Referrals: Joseph Ricks MD [Primary Care Provider] - Disposition Disposition: Acute Care Hospital [facility]
[2023-08-20] MEDS: Ipratropium/Albuterol Sulfate 3 ML AMPUL.NEB INHALATION (22:35)
[2023-08-20 22:44] LABS: Absolute Lymphocyte Count 0.51 X10^3/uL (0.83-4.51); Absolute Neutrophil Count 6.9 X10^3/uL (2.0-7.7); Basophil# 0.08 X10^3/uL; Basophil% 0.9 % (0-1); Eosinophils% 2.3 % (0-5); Hematocrit 29.5 % (40-54); Hemoglobin 9.4 g/dL (13.0-16.5); Lymphocyte # 0.51 X10^3/ul (0.83-4.51); Mean Corp Hgb Conc 31.9 g/dL (32-36); Mean Corpuscular Hgb 31.6 pg (27.0-32.0); Mean Corpuscular Volume 99.3 fL (80-94); Mean Platelet Vol. 10.8 fl (6.2-12.0); Monocyte# 0.68 X10^3/uL; NRBC Flagged by Analyzer 0.5 % (0-5); Neutrophil # 6.91 X10^3/uL (2.7-7.7); Neutrophil % 81.2 % (47-70); POSITIVE DIFFERENTIAL YES; Platelet Count 189 K/mm3 (150-450); RBC Distribution Width CV 16.1 % (11.6-14.6); RBC Distribution Width SD 58.6 fl (35.1-43.9); Red Blood Count 2.97 M/mm3 (4.6-6.2); White Blood Count 8.5 K/mm3 (4.4-11.0)
--- NOTE | 2023-08-20 23:05 | RAD_ITS ---
EXAM: XR CHEST, 1 VIEW CLINICAL INDICATION: sob TECHNIQUE: Frontal view of the chest. COMPARISON: No relevant prior studies available. FINDINGS: LUNGS AND PLEURAL SPACES: Central pulmonary vascular congestion, interstitial edema and small pleural effusions. No pneumothorax. HEART: Mild enlargement of the cardiac silhouette. MEDIASTINUM: Central airways and mediastinal contour are unremarkable. BONES/JOINTS: Unremarkable. No acute fracture. SOFT TISSUES: Unremarkable. TUBES, LINES AND DEVICES: Right chest central venous catheter. RAD/Chest 1 View (Portable) IMPRESSION: Central pulmonary vascular congestion, interstitial edema and small pleural effusions. Findings may indicate CHF. Electronically Signed: Sedrick Valiente MD at 23:40 EDT ,
[2023-08-20 23:13] LABS: Anion Gap 13 (5-15); BUN 104 mg/dL (7-18); BUN/Creat Ratio 12.4 RATIO (10-20); Calcium,Total 7.1 mg/dL (8.5-10.1); Chloride 98 mmol/L (98-107); Creatinine, Serum 8.37 mg/dL (0.70-1.30); EST Glomerular Filtration Rate 7 mL/min (>60); Est Glom Filt Rate - Afr Amer 9 mL/min (>60); Estimated Creatinine Clearance 15.38 ml/min; Glucose 271 mg/dL (74-106); Sodium Level 137 mmol/L (136-145); Troponin-I HS 128 pg/mL (3.0-78.0)
[2023-08-21] VITALS (31 sets, daily range): BP systolic 115–210; BP diastolic 47–108; PULSE 61–82; RESP 14–33; TEMP 35.9–37; O2SAT 91–100; BMI 46.6; BMI 46.7
[2023-08-21] MEDS: Furosemide 100 MG/10 ML Vial 80 MG IV (00:20)
--- NOTE | 2023-08-21 00:59 | PCM.HP.STD ---
HPI - General General Date of Admission: 08/21/23 Date of Service: 08/21/23 Chief Complaint: SOB and LE Edema. HPI Narrative YOSEPH PERSAUD, is a 53 M with a past medical history of essential hypertension, hyperlipidemia, morbid obesity; with BMI of 49.1 this admission, DM-2; of unknown control, history of multiple myeloma; on chemotherapy with [facility], ESRD on HD; (M-W-F) with patient having missed HD today, history of monoclonal gammopathy, history of CHF, history of venous insufficiency of both lower extremities, CAD; status post multiple stents, history of osteomyelitis of the right foot and osteoarthritis who presents to [facility] ER complaining of shortness of breath and LE edema. Mr. Persaud reports his symptoms began approximately 1 day prior to admission after he missed hemodialysis with increasing lower extremity edema and dyspnea on exertion that progressed to shortness of breath at rest. EMS was then activated and noted him to be hypoxic in the 70% range on room air as he is not on home oxygen. He states the last time that he went to hemodialysis was on Sunday - and since today was Sunday he is now very overdue. Thankfully, he still makes urine and is responding well to IV Lasix in the ER. He denies associated fever, chills, nausea or vomiting. In the ER he was diagnosed with acute exacerbation of CHF suspected to be due to volume overload after missing hemodialysis complicated by clinical evidence of acute hypoxic respiratory insufficiency and he was then admitted to the PCU for ongoing care for stay that is expected to be greater than 2 midnights. [facility] Medical History CORA (acute kidney injury) Anemia in chronic illness Atherosclerotic heart disease of [place] coronary artery without angina pectoris Carotid artery stenosis Chronic diastolic (congestive) heart failure Chronic kidney disease Chronic kidney disease CKD stage 4 due to type 2 diabetes mellitus Coronary artery disease Depression Diabetes mellitus Diabetes mellitus with diabetic polyneuropathy Diabetes mellitus, type II Diabetic infection of left foot Edema, peripheral Essential (primary) hypertension History of non-ST elevation myocardial infarction (NSTEMI) (08/25/22) History of stress test Hyperlipidemia Hyperlipidemia Hypertension Hypertension Hypomagnesemia Infected sebaceous cyst Insulin dependent diabetes mellitus Ischemic cardiomyopathy (06/2013) Left ventricular systolic dysfunction (LVSD) Non-pressure 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 of bone Non-pressure chronic ulcer of other part of left foot with fat layer exposed Non-pressure chronic ulcer of other part of left foot with fat layer exposed Obesity Other acute osteomyelitis, right ankle and foot Paresthesias Partial nontraumatic amputation of right foot Pneumonia due to COVID-19 virus (03/14/20) Postoperative cardiac arrest following non-cardiac surgery Type 2 diabetes mellitus with diabetic neuropathy, unspecified Type 2 diabetes mellitus with diabetic polyneuropathy Type 2 diabetes mellitus with diabetic polyneuropathy Type 2 diabetes mellitus with foot ulcer Ulcer of right foot with fat layer exposed Venous insufficiency Venous insufficiency of both lower extremities Home Medications aspirin 81 mg chewable tablet 81 mg PO DAILY@0800 heart 09/28/14 [History Last Taken 12/20/18] clopidogrel 75 mg tablet 75 mg PO DAILY Blood Thinner 30 days #30 tabs 06/21/21 [Rx Last Taken Unknown] ezetimibe 10 mg tablet 10 mg PO DAILY cholesterol 04/07/22 [History Last Taken Unknown] carvedilol 25 mg tablet 25 mg PO BID blood pressure #180 tabs 05/25/22 [Rx Last Taken Unknown] amlodipine 5 mg tablet 5 mg PO DAILY blood pressure 06/05/22 [History Last Taken Unknown] ergocalciferol (vitamin D2) 1,250 mcg (50,000 unit) capsule (Vitamin D2) 50,000 unit PO QWEEK 01/01/23 [History Last Taken Unknown] furosemide 80 mg tablet (Lasix) 80 mg PO BID #60 tabs 01/03/23 [Rx Last Taken Unknown] metolazone 5 mg tablet 5 mg PO DAILY #30 tabs 01/03/23 [Rx Last Taken Unknown] insulin glargine 100 unit/mL (3 mL) subcutaneous pen (Lantus Solostar U-100 Insulin) 20 unit subcut BID Diabetes 02/09/23 [History Last Taken Unknown] atorvastatin 40 mg tablet 80 mg PO QHS cholesterol 08/20/23 [History Last Taken Unknown] calcium acetate(phosphat bind) 667 mg capsule 667 mg PO TID 08/20/23 [History Last Taken Unknown] insulin lispro 100 unit/mL subcutaneous pen (Humalog KwikPen (U-100) Insulin) subcut 08/20/23 [History Last Taken Unknown] Allergy/AdvReac Type Severity Reaction Status Date / Time lisinopril AdvReac Intermediate Cough Verified 08/20/23 22:37 losartan AdvReac Intermediate cough Verified 08/20/23 22:37 Family History Father , Age 57 from [place] Myocardial infarction CAD (coronary artery disease) Sudden cardiac Mother Sick sinus syndrome Sister Diabetes Other History of coronary artery stent placement History of non-ST elevation myocardial infarction (NSTEMI) Surgical History H/O cardiac catheterization History of coronary artery stent placement (08/28/22) Social History household members: none Smoking Status: Never smoker alcohol intake: current alcohol intake frequency: holidays/special occasions only substance use type: does not use caffeine: Yes Type: carbonated beverages Number of servings: 2 ROS ROS Narrative Review of systems: General: Patient denies fever or chills. HENT: Denies headache, denies stuffy nose, denies sore throat EYES: Denies changes in vision or discharge from eyes. Resp: Patient admits to dyspnea on exertion that progressed to shortness of breath at rest with lower extremity edema as per HPI. Cardiac: Denies chest pain, palpitations or heart racing. GI: Denies abdominal pain, denies changes in bowel, denies nausea or vomiting. : Denies changes in urination Extremity: Denies swelling Musculoskeletal: Feels somewhat generally weak and unwell but denies arthralgias or myalgias Neuro: Denies headache, paresthesias or focal neurologic weakness. Heme: Denies any bleeding or bruising Skin: Denies rashes Psychiatric: No complaints voiced related to uncontrolled depression or anxiety. Endocrine: No polyuria, polydipsia or polyphagia. The rest of the 14 point ROS was negative except for positives in HPI. Vital Signs Vital Signs Vital Signs: 08/20/23 22:18 08/20/23 22:21 08/20/23 22:24 Temperature 97.9 F 97.9 F Temperature Source Oral Oral Pulse Rate 78 78 78 Respiratory Rate 30 H 26 H 29 H Respiratory Effort Respiratory Pattern Blood Pressure 177/100 H Blood Pressure Mean 125 Pulse Ox 65 95 90 Oxygen Delivery Method Room Air Nasal Cannula Non-Rebreather Oxygen Flow Rate (L/min) 6 15 08/20/23 22:35 08/20/23 22:37 08/20/23 22:35 Temperature Temperature Source Pulse Rate 78 Respiratory Rate 28 H Respiratory Effort Short of Breath Respiratory Pattern Tachypnea Tachypnea Blood Pressure Blood Pressure Mean Pulse Ox 95 Oxygen Delivery Method Non-Rebreather Nasal Cannula Oxygen Flow Rate (L/min) 10 8 08/20/23 23:21 08/21/23 00:00 08/21/23 00:34 Temperature 97.6 F L 98.6 F 98.0 F Temperature Source Temporal Oral Pulse Rate 73 82 78 Respiratory Rate 23 H 22 H 17 Respiratory Effort Respiratory Pattern Blood Pressure 159/81 H 155/83 H 162/80 H Blood Pressure Mean 107 107 107 Pulse Ox 94 96 95 Oxygen Delivery Method High Flow High Flow Oxygen Flow Rate (L/min) 9 Weight Weight: 351 lb 13.724 oz Body Mass Index (BMI) 49.0 Physical Exam Const alert and oriented x3 Constitutional Narrative: Morbidly obese with patient appearing moderately short of breath. General Appearance: cooperative HEENT normocephalic, head/scalp atraumatic, hearing grossly normal bilaterally and moist oral mucous membranes Eyes PERRL and EOMs intact bilaterally Neck no lymphadenopathy and supple Resp Resp Narrative: Diminished breath sounds throughout. Cardio regular rate and regular rhythm GI normal to inspection, nondistended, normoactive bowel sounds, soft to palpation, non-tender and non-distended GI Narrative: Morbidly obese. Extremity Extremity Narrative: 2-3+ bilateral lower extremity pitting edema. Skin Skin Narrative: Patient has no evidence of jaundice or rash. Neuro oriented x3, CN's II-XII intact bilaterally, moves all extremities and no focal motor deficits Sensorium / Orientation: awake, alert, oriented to person, oriented to place and oriented to time Speech: speech normal Psych affect normal Results Lab / Micro Data 08/20/23 22:31 08/20/23 22:31 Labs: Laboratory Results - last 24 hr 08/20/23 22:31: WBC 8.5, RBC 2.97 L, Hgb 9.4 L, Hct 29.5 L, MCV 99.3 H, MCH 31.6, MCHC 31.9 L, RDW Std Deviation 58.6 H, RDW Coeff of Rajendra 16.1 H, Plt Count 189, MPV 10.8, Immature Gran % (Auto) 1.600 H, Neut % (Auto) 81.2 H, Lymph % (Auto) 6.0 L, [place] % (Auto) 8.0, Eos % (Auto) 2.3, Baso % (Auto) 0.9, Absolute Neuts (auto) 6.9, Absolute Lymphs (auto) 0.51 L, Nucleated RBC % 0.5, Sodium 137, Potassium 4.0, Chloride 98, Carbon Dioxide 26.0, Anion Gap 13, BUN 104 H*, Creatinine 8.37 H*, Estim Creat Clear Calc 15.38, Est GFR (MDRD) Af Amer 9 L, Est GFR (MDRD) Non-Af 7 L, BUN/Creatinine Ratio 12.4, Glucose 271 H, Calcium 7.1 L, Troponin I High Sens 128 H* Rhythm Strip Rhythm Strip: Sinus Rhythm Rate: 75 Ectopy: PVC(s) Imaging Radiology Impression Chest X-Ray 08/20/23 23:05 IMPRESSION: Central pulmonary vascular congestion, interstitial edema and small pleural effusions. Findings may indicate CHF. Electronically Signed: Sedrick Valiente MD at 23:40 EDT , Assessment & Plan Assessment/Plan (1) Acute exacerbation of CHF (congestive heart failure): QUALIFIERS: Heart failure type: unspecified Qualified Code(s): I50.9 - Heart failure, unspecified (2) Respiratory insufficiency: (3) Morbid obesity with BMI of 45.0-49.9, adult: (4) ESRD (end stage renal disease) on dialysis: (5) Medical non-compliance: (6) Multiple myeloma: QUALIFIERS: Multiple myeloma remission status: unspecified Qualified Code(s): C90.00 - Multiple myeloma not having achieved remission (7) Hyperglycemia due to type 2 diabetes mellitus: QUALIFIERS: Diabetes mellitus fpc 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 transplanted heart: [place] heart Associated angina: without angina Qualified Code(s): I25.10 - Atherosclerotic heart disease of [place] coronary artery without angina pectoris PLAN: Plan 1. Acute exacerbation of CHF suspected to be due to volume overload after missing hemodialysis with mildly elevated troponin likely due to a combination of acute cardiac strain and ESRD - Admit to PCU. Continue IV Lasix to promote diuresis. Serialize troponin. Finally, we will restart home medications and consult nephrology to see this patient on rounds in the a.m. to perform hemodialysis without appreciated in advance. 2. Acute respiratory insufficiency due to #1 - Wean supplemental oxygen as tolerated. 3. Morbid obesity; with BMI of 49.1 this admission complicating #1 & #2 - Weight loss will be recommended. Check TSH. 4. ESRD on HD; (--) with medical noncompliance with HD - Noted above. Patient encouraged to be compliant with his dialysis treatments. 5. History of multiple myeloma; on chemotherapy with [facility] - Noted. 6. Essential hypertension - Continue home regimen plus give IV Lasix and IV hydralazine as needed for systolic blood pressure greater than 160 mmHg. 7. Hyperlipidemia - Resume statin. 8. DM-2; of unknown control - ADA/Renal diet. Fingerstick blood sugars before every meal and at bedtime plus lowest intensity sliding scale insulin. Check hemoglobin A1c to objectively assess quality of diabetic control. 9. History of CHF - Check echocardiogram to evaluate LVEF. 10. History of venous insufficiency of both lower extremities - Stable. 11. CAD; status post multiple stents - Resume home regimen as previous. 12. History of osteomyelitis of the right foot - Noted with previous partial amputation. 13. Osteoarthritis - Give Tylenol as needed. 14. DVT prophylaxis - Heparin 5,000 sq TID. Total time: Approximately 75 minutes. Charges/Coding Visit Charges Inpatient E&M: 28225 Init Hosp L3
--- NOTE | 2023-08-21 06:09 | ECHOCS_ITS ---
Reason For Study: CONGESTIVE HEART FAILURE Procedure This was a 2D Doppler, Color Flow transthoracic echocardiogram. The study was technically difficult. Contrast injection was performed. Exam performed portable in ICU/CCU. Left Ventricle Mildly dilated left ventricle. The estimated ejection fraction is 35 %. Moderate global left ventricular systolic dysfunction. Normal diastololic function. Right Ventricle Mildly dilated right ventricle. Normal systolic function. Atria The left atrium is mildly enlarged. Normal right atrium. Mitral Valve The mitral valve is structurally normal. No prolapse or stenosis seen. Trivial mitral valve insufficiency. Tricuspid Valve Not well visualized. Aortic Valve Mild focal aortic valve thickening. The aortic valve is not well visualized in the short axis view. Aortic sclerosis, no stenosis. Pulmonic Valve The pulmonic valve is not well visualized. Great Vessels Normal aortic root. Pericardium/Pleural Trivial pericardial effusion. Medication Diluted definity 2.5ml given slow IV push to enhance endocardial definition. MMode/2D Measurements & Calculations LVIDd: 5.8 cm IVSd: 1.1 cm LVOT diam: 2.1 cm LVIDs: 4.2 cm LVPWd: 1.0 cm RVDd: 4.3 cm FS: 27.5 % LVOT area: 3.6 cm2 Ao root diam: 3.0 cm LAV(MOD-bp): 69.0 ml LVAd ap4: 41.0 cm2 LAV(MOD-bp) Indexed: 26.3 ml/m2 LVLd ap4: 9.0 cm LAV(MOD-sp2): 57.1 ml EDV(MOD-sp4): 151.2 ml LAV(MOD-sp4): 72.9 ml EDV(sp4-el): 158.4 ml LVAs ap4: 31.8 cm2 LVLs ap4: 7.7 cm ESV(MOD-sp4): 106.0 ml ESV(sp4-el): 111.0 ml EF(MOD-sp4): 29.9 % EF(sp4-el): 30.0 % LVAd ap2: 41.7 cm2 SV(MOD-sp4): 45.2 ml SV(MOD-sp2): 53.1 ml LVLd ap2: 8.6 cm EDV(MOD-sp2): 163.2 ml EDV(sp2-el): 170.5 ml LVAs ap2: 33.4 cm2 LVLs ap2: 8.2 cm ESV(MOD-sp2): 110.1 ml ESV(sp2-el): 115.3 ml EF(MOD-sp2): 32.5 % SV(sp4-el): 47.5 ml LA dimension(2D): 4.4 cm LA A4 area: 23.6 cm2 RA A4 area: 16.7 cm2 TAPSE: 1.6 cm Time Measurements MV dec time: 0.16 sec Doppler Measurements & Calculations MV E max finesse: 96.4 cm/sec Lat Peak E' Finesse: 10.1 cm/sec Med Peak E' Finesse: 6.5 cm/sec MV A max finesse: 68.2 cm/sec E/E' lat: 9.5 E/E' med: 14.7 MV E/A: 1.4 Ao V2 max: 185.6 cm/sec LV V1 max: 126.1 cm/sec MV dec slope: 620.5 cm/sec2 Ao max P.8 mmHg LV V1 max P.4 mmHg Ao V2 mean: 131.3 cm/sec LV V1 mean P.6 mmHg Ao mean P.5 mmHg LV V1 mean: 90.7 cm/sec Ao V2 VTI: 39.4 cm LV V1 VTI: 31.6 cm AV (velocity ratio): 0.80 ZOFIA(I,D): 2.9 cm2 ZOFIA(V,D): 2.5 cm2 SV(LVOT): 114.4 ml PA V2 max: 64.1 cm/sec PA max PG (full): 0.83 mmHg ECHO/Echo Complete W/ Contrast Interpretation Summary The estimated ejection fraction is 35 %. Mildly dilated left ventricle. Mildly dilated right ventricle. The left atrium is mildly enlarged. Mild focal aortic valve thickening. Trivial pericardial effusion. The study was technically difficult. Ordering Physician: Rickie Mejia Performed By: Vesna Messina RDCS
[2023-08-21] MEDS: Heparin Injection (Vial) 5,000 UNIT/ML VIAL 5000 UNIT SC ×2 (06:15→21:12)
[2023-08-21 06:51] LABS: Bedside Glucose 177 mg/dL (74-106)
[2023-08-21 07:31] LABS: Absolute Neutrophil Count 5.9 X10^3/uL (2.0-7.7); Basophil# 0.06 X10^3/uL; Basophil% 0.8 % (0-1); Eosinophil# 0.17 X10^3/uL; Eosinophils% 2.3 % (0-5); Hematocrit 28.3 % (40-54); Hemoglobin 8.8 g/dL (13.0-16.5); Lymphocyte % 8.1 % (19-41); Mean Corp Hgb Conc 31.1 g/dL (32-36); Mean Corpuscular Hgb 30.7 pg (27.0-32.0); Mean Corpuscular Volume 98.6 fL (80-94); Mean Platelet Vol. 11.2 fl (6.2-12.0); Monocyte# 0.64 X10^3/uL; Monocyte% 8.6 % (0-10); NRBC Flagged by Analyzer 0.4 % (0-5); Neutrophil # 5.86 X10^3/uL (2.7-7.7); Neutrophil % 78.6 % (47-70); POSITIVE DIFFERENTIAL YES; Platelet Count 196 K/mm3 (150-450); RBC Distribution Width CV 16.3 % (11.6-14.6); RBC Distribution Width SD 57.7 fl (35.1-43.9); Red Blood Count 2.87 M/mm3 (4.6-6.2); White Blood Count 7.5 K/mm3 (4.4-11.0)
[2023-08-21 07:52] LABS: Troponin-I HS 148 pg/mL (3.0-78.0)
[2023-08-21 08:18] LABS: ALB/GLOB Ratio 0.7 RATIO (0.9-2.4); AST(SGOT) 16 U/L (15-37); Alanine Aminotransfer ALT/SGPT 18 U/L (16-61); Albumin, Serum 3.1 g/dL (3.2-5.0); Alkaline Phosphatase 74 U/L (45-117); Anion Gap 11 (5-15); BUN 106 mg/dL (7-18); BUN/Creat Ratio 12.8 RATIO (10-20); Calcium,Total 6.8 mg/dL (8.5-10.1); Chloride 100 mmol/L (98-107); Creatinine, Serum 8.28 mg/dL (0.70-1.30); EST Glomerular Filtration Rate 7 mL/min (>60); Est Glom Filt Rate - Afr Amer 9 mL/min (>60); Estimated Creatinine Clearance 15.09 ml/min; Globulin 4.2 g/dL (2.2-4.2); Glucose 191 mg/dL (74-106); Magnesium 2.2 mg/dL (1.6-2.6); Phosphorus 8.4 mg/dL (2.5-4.9); Potassium 3.4 mmol/L (3.5-5.1); Protein, Total 7.3 g/dL (6.4-8.2); Sodium Level 138 mmol/L (136-145); Thyroid Stim Hormone (TSH) 2.65 uIU/mL (0.358-3.74)
[2023-08-21] MEDS: Insulin Glargine-YFGN 100 UNIT/ML Pen 20 UNIT SC ×2 (08:28→21:18)
[2023-08-21] MEDS: Carvedilol 25 MG Tablet PO ×2 (08:29→16:54)
[2023-08-21] MEDS: metOLazone 5 MG Tablet PO (08:29)
[2023-08-21] MEDS: Aspirin 81 MG TAB.CHEW PO (08:29)
[2023-08-21] MEDS: Furosemide 80 MG Tablet PO ×2 (08:29→21:12)
[2023-08-21] MEDS: Clopidogrel Bisulfate 75 MG Tablet PO (08:29)
[2023-08-21] MEDS: Calcium Acetate 667 MG Capsule PO ×2 (08:29→16:54)
[2023-08-21] MEDS: Ezetimibe 10 MG Tablet PO (08:29)
[2023-08-21] MEDS: amLODIPine 5 MG Tablet PO (08:30)
[2023-08-21 09:21] LABS: BNP,B-Type NATRIURETIC PEPTIDE 489.9 pg/mL (0-100)
--- NOTE | 2023-08-21 10:47 | PCM.CONS.R ---
Assessment & Plan Assessment/Plan (1) ESRD (end stage renal disease) on dialysis: (2) Acute hypoxemic respiratory failure: (3) Multiple myeloma: QUALIFIERS: Multiple myeloma remission status: unspecified Qualified Code(s): C90.00 - Multiple myeloma not having achieved remission PLAN: Plan This is a 53-year-old male with past medical history significant for ESRD on hemodialysis Sunday, last dialyzed August 16 who presented to the emergency room with complaints of shortness of breath and admitted for fluid overload, pulmonary edema, nephrology consulted in view of dialysis needs. Patient's current EDW is around 139 kg. After dialysis on August 16 postdialysis weight 147.7 kg. Patient is usually compliant with coming to his dialysis sessions however he does have a difficult time with allowing for fluid removal, patient prefers for only around 2 L of fluid to be removed with each dialysis session even though patient may gain 5 to 6 kg. I had discussion with patient and his son today on the importance of fluid removal and allowing for more fluid to be removed during dialysis so to avoid fluid overload and potential hospitalizations. Patient is in agreement for allowing hemodialysis nurse to remove more fluid. Patient reports recently he has not been cramping. We will plan for dialysis and sequential treatment today and attempt around 3 to 4 hours fluid removal over 4 hours of dialysis session. Plan for dialysis again tomorrow. Reviewed with patient importance of following fluid restriction and low-sodium diet. Questions answered for patient and his son. Further orders forthcoming as hospitalization evolves, thank you for allowing us to participate in the care of Mr. Persaud. HPI Consult Data Date of Consult: 08/21/23 HPI Narrative HPI Narrative: YOSEPH PERSAUD, is a 53 M with past medical history significant for ESRD on hemodialysis at [facility] Sunday schedule, history of multiple myeloma currently receiving chemotherapy who presented to the emergency room late last night with complaints of difficulty breathing. Chest x-ray in the emergency room showed interstitial edema, vascular congestion and small pleural effusions. Patient was admitted for further evaluation and treatment. Nephrology consulted in view of dialysis management. Patient last dialyzed on Sunday at the kidney center. He missed dialysis yesterday due to feeling unwell. He denies any recent fever or chills, no recent nausea vomiting or diarrhea. Patient's son is at bedside. [facility] Medical History CORA (acute kidney injury) Anemia in chronic illness Atherosclerotic heart disease of [place] coronary artery without angina pectoris Carotid artery stenosis Chronic diastolic (congestive) heart failure Chronic kidney disease Chronic kidney disease CKD stage 4 due to type 2 diabetes mellitus Coronary artery disease Depression Diabetes mellitus Diabetes mellitus with diabetic polyneuropathy Diabetes mellitus, type II Diabetic infection of left foot Edema, peripheral Essential (primary) hypertension History of non-ST elevation myocardial infarction (NSTEMI) (08/25/22) History of stress test Hyperlipidemia Hyperlipidemia Hypertension Hypertension Hypomagnesemia Infected sebaceous cyst Insulin dependent diabetes mellitus Ischemic cardiomyopathy (06/2013) Left ventricular systolic dysfunction (LVSD) Non-pressure 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 of bone Non-pressure chronic ulcer of other part of left foot with fat layer exposed Non-pressure chronic ulcer of other part of left foot with fat layer exposed Obesity Other acute osteomyelitis, right ankle and foot Paresthesias Partial nontraumatic amputation of right foot Pneumonia due to COVID-19 virus (03/14/20) Postoperative cardiac arrest following non-cardiac surgery Type 2 diabetes mellitus with diabetic neuropathy, unspecified Type 2 diabetes mellitus with diabetic polyneuropathy Type 2 diabetes mellitus with diabetic polyneuropathy Type 2 diabetes mellitus with foot ulcer Ulcer of right foot with fat layer exposed Venous insufficiency Venous insufficiency of both lower extremities Home Medications ?Medication ?Instructions ?Recorded ?Last Taken ?Type aspirin 81 mg chewable tablet 81 mg PO DAILY@0800 heart 09/28/14 12/20/18 History clopidogrel 75 mg tablet 75 mg PO DAILY Blood Thinner 30 06/21/21 Unknown Rx days #30 tabs ezetimibe 10 mg tablet 10 mg PO DAILY cholesterol 04/07/22 Unknown History carvedilol 25 mg tablet 25 mg PO BID blood pressure #180 05/25/22 Unknown Rx tabs amlodipine 5 mg tablet 5 mg PO DAILY blood pressure 06/05/22 Unknown History ergocalciferol (vitamin D2) 1,250 50,000 unit PO QWEEK 01/01/23 Unknown History mcg (50,000 unit) capsule (Vitamin D2) furosemide 80 mg tablet (Lasix) 80 mg PO BID #60 tabs 01/03/23 Unknown Rx metolazone 5 mg tablet 5 mg PO DAILY #30 tabs 01/03/23 Unknown Rx insulin glargine 100 unit/mL (3 20 unit subcut BID Diabetes 02/09/23 Unknown History mL) subcutaneous pen (Lantus Solostar U-100 Insulin) atorvastatin 40 mg tablet 80 mg PO QHS cholesterol 08/20/23 Unknown History calcium acetate(phosphat bind) 667 667 mg PO TID 08/20/23 Unknown History mg capsule insulin lispro 100 unit/mL subcut 08/20/23 Unknown History subcutaneous pen (Humalog KwikPen (U-100) Insulin) Allergy/AdvReac Type Severity Reaction Status Date / Time lisinopril AdvReac Intermediate Cough Verified 08/20/23 22:37 losartan AdvReac Intermediate cough Verified 08/20/23 22:37 Family History Father , Age 57 from [place] Myocardial infarction CAD (coronary artery disease) Sudden cardiac Mother Sick sinus syndrome Sister Diabetes Other History of coronary artery stent placement History of non-ST elevation myocardial infarction (NSTEMI) Surgical History H/O cardiac catheterization History of coronary artery stent placement (08/28/22) Social History household members: none Smoking Status: Never smoker alcohol intake: current alcohol intake frequency: holidays/special occasions only substance use type: does not use caffeine: Yes Type: carbonated beverages Number of servings: 2 ROS ROS Narrative As in HPI past medical history Physical Exam Narrative Alert and orient x 3, no apparent distress S1, S2, RRR Diminished breath sounds with scattered rales Abdomen soft, rounded, nontender Positive edema bilateral lower legs Tunneled dialysis catheter right chest dressing clean, dry and intact Lab / Micro Data 08/21/23 06:35 08/21/23 06:35 Labs: Laboratory Results - last 24 hr 08/20/23 22:31: WBC 8.5, RBC 2.97 L, Hgb 9.4 L, Hct 29.5 L, MCV 99.3 H, MCH 31.6, MCHC 31.9 L, RDW Std Deviation 58.6 H, RDW Coeff of Rajendra 16.1 H, Plt Count 189, MPV 10.8, Immature Gran % (Auto) 1.600 H, Neut % (Auto) 81.2 H, Lymph % (Auto) 6.0 L, [place] % (Auto) 8.0, Eos % (Auto) 2.3, Baso % (Auto) 0.9, Absolute Neuts (auto) 6.9, Absolute Lymphs (auto) 0.51 L, Nucleated RBC % 0.5, Sodium 137, Potassium 4.0, Chloride 98, Carbon Dioxide 26.0, Anion Gap 13, BUN 104 H*, Creatinine 8.37 H*, Estim Creat Clear Calc 15.38, Est GFR (MDRD) Af Amer 9 L, Est GFR (MDRD) Non-Af 7 L, BUN/Creatinine Ratio 12.4, Glucose 271 H, Calcium 7.1 L, Troponin I High Sens 128 H* 08/21/23 06:33: POC Glucose 177 H 08/21/23 06:35: WBC 7.5, RBC 2.87 L, Hgb 8.8 L, Hct 28.3 L, MCV 98.6 H, MCH 30.7, MCHC 31.1 L, RDW Std Deviation 57.7 H, RDW Coeff of Rajendra 16.3 H, Plt Count 196, MPV 11.2, Immature Gran % (Auto) 1.600 H, Neut % (Auto) 78.6 H, Lymph % (Auto) 8.1 L, [place] % (Auto) 8.6, Eos % (Auto) 2.3, Baso % (Auto) 0.8, Absolute Neuts (auto) 5.9, Absolute Lymphs (auto) 0.60 L, Nucleated RBC % 0.4, Sodium 138, Potassium 3.4 L, Chloride 100, Carbon Dioxide 27.0, Anion Gap 11, BUN 106 H*, Creatinine 8.28 H*, Estim Creat Clear Calc 15.09, Est GFR (MDRD) Af Amer 9 L, Est GFR (MDRD) Non-Af 7 L, BUN/Creatinine Ratio 12.8, Glucose 191 H, Calcium 6.8 L, Phosphorus 8.4 H, Magnesium 2.2, Total Bilirubin 0.60, AST 16, ALT 18, Alkaline Phosphatase 74, Troponin I High Sens 148 H*, B-Natriuretic Peptide 489.9 H, Total Protein 7.3, Albumin 3.1 L, Globulin 4.2, Albumin/Globulin Ratio 0.7 L, TSH 2.65 Rhythm Strip Rhythm Strip: Sinus Rhythm Rate: 75 Ectopy: PVC(s) Imaging Radiology Impression Chest X-Ray 08/20/23 23:05 IMPRESSION: Central pulmonary vascular congestion, interstitial edema and small pleural effusions. Findings may indicate CHF. Electronically Signed: Sedrick Valiente MD at 23:40 EDT ,
--- NOTE | 2023-08-21 10:53 | CASEMGMT ---
Addendum entered by Darrick Rowe 08/21/23 11:42: Jaci from [facility] states that the pt old O2 order states 2LPM VIA NC CON, 4LPM W/ EXERTION and that [facility] picked up the pt equipment on 04/26/23. Original Note: RADHA KISER Assessment Face to Face with patient for initial transition planning/care coordination assessment. RN RASHEL introduced self and role at [facility], pt voices understanding. Pt is A&Ox4 and is resting comfortably in bed and is calm. Pt son (Juan A) at bedside. Care providers, pharmacy, and demographics verified. Admitting dx: AE CHF after Misses HD LACE Strata: 2 PCP: Joseph Ricks Specialists: Jesus Manuel (Cardio), Félix (Oncology), Raffy (Nephro), Puh (Podiatry) Preferred Pharmacy: [facility] Insurance: [facility] [place] Prescription Benefit: Yes LNOK: Juan A Sanchez (son), Amalia Medrano (Sister) Living Arrangements: Pt lives with his 31 y/o son in a single story home with a BM with HR with 2 steps to enter with HRs ADLs/IADLs: Pt states that he is mainly independent. Pt son states that he is the one who does the laundry that is located in the basement. Transportation: Self, Son DME: [employer] and enough supplies. Raised toilet seat. Rollator. Access to a shower chair if needed. Pt is currently on 4L of oxygen. At this time, the pt and the pt son state that the pt is not on home oxygen and does not have any equipment for this at home. A verbal list of local in network DME companies provided to the pt at this time and the pt chose [employer] for potential home oxygen needs HHC/SNF/Palliative/Wound Care: HHC x 3 years ago (pt and pt son could not recall the name of the agency). History at [facility] TCU. History with [facility] in 2019 that the pt discontinued. Palliative care called the pt son after last visit and the son states that he declined their services d/t the pt being too busy with appts and HD. Pt son and the pt decline Palliative care needs at this time. Pt also reports that he has a history at the [facility] Wound center. Pt and pt son state that he is now active with the [facility] in [place]. Pt states that he goes there once per month or two and is followed by Dr. Bay there. HD: Pt attends [facility] in [place] M/W/ from . Pt states that he drives himself there. Pt?s goal: Home Plan: PT Eval pending. Pt denies SNF, HHC, and OP therapy needs at this time. Pt states that he wishes to return home at time of DC and reports feeling safe doing so. Pt states that he plans to continue attending HD M/W/F and also the [facility] in [place]. CM to follow for potential home oxygen needs. CM to follow in regard to safe DC from [facility]. Adrianna Rowe RN CM
[2023-08-21] MEDS: 0.9% Normal Saline 1,000 ML IV.SOLN. 1000 ML OPERA.SITE (12:31)
[2023-08-21] MEDS: PureFlow B 2K Dialysis Soln 1 BAG 6 BAG PF (12:31)
[2023-08-21] MEDS: Heparin 10,000 UNITS/10 ML Vial 2500 UNITS IV (12:35)
[2023-08-21] MEDS: 0.9% Saline Lock 10 ML Syringe IV (12:35)
[2023-08-21 16:59] LABS: Bedside Glucose 144 mg/dL (74-106)
--- NOTE | 2023-08-21 18:46 | PCM.HOSP.N ---
Hospitalist Note Patient was seen and examined today, he was due to undergo dialysis today, patient appears comfortable at rest on 2 L of oxygen. Patient's echocardiogram today showed an EF of 35%-this appears unchanged from his last echocardiogram on 12/21/2022. Patient states he did not undergo dialysis yesterday because I did not feel good. Will continue present therapy at this time, patient is being seen by nephrology.
[2023-08-21] MEDS: Atorvastatin Calcium 80 MG Tablet PO (21:12)
[2023-08-21 22:16] LABS: Bedside Glucose 154 mg/dL (74-106)
[2023-08-22] VITALS (19 sets, daily range): BP systolic 115–243; BP diastolic 49–92; PULSE 61–66; RESP 12–19; TEMP 36.5–36.6; O2SAT 89–100; BMI 45.1; BMI 43.9
--- NOTE | 2023-08-22 00:52 | NURSING ---
pts pulse ox keeps dropping thru the night when he is in a deep sleep, dropping into the 50-70s, sleep apnea. pt on 4l nc
[2023-08-22] MEDS: Heparin Injection (Vial) 5,000 UNIT/ML VIAL 5000 UNIT SC (05:53)
[2023-08-22] MEDS: 0.9% Saline Lock 10 ML Syringe IV ×2 (07:42→10:30)
[2023-08-22] MEDS: PureFlow B 3K Dialysis Soln 1 BAG 6 BAG PF (07:44)
[2023-08-22] MEDS: 0.9% Normal Saline 1,000 ML IV.SOLN. 1000 ML OPERA.SITE (07:44)
[2023-08-22] MEDS: Heparin 10,000 UNITS/10 ML Vial IV (10:30)
[2023-08-22] MEDS: amLODIPine 5 MG Tablet PO (11:17)
[2023-08-22] MEDS: Furosemide 80 MG Tablet PO (11:17)
[2023-08-22] MEDS: Aspirin 81 MG TAB.CHEW PO (11:18)
[2023-08-22] MEDS: metOLazone 5 MG Tablet PO (11:18)
[2023-08-22] MEDS: Ezetimibe 10 MG Tablet PO (11:18)
[2023-08-22] MEDS: Calcium Acetate 667 MG Capsule PO (11:18)
[2023-08-22] MEDS: Clopidogrel Bisulfate 75 MG Tablet PO (11:19)
[2023-08-22] MEDS: Insulin Glargine-YFGN 100 UNIT/ML Pen 20 UNIT SC (11:19)
[2023-08-22] MEDS: Carvedilol 25 MG Tablet PO (11:22)
[2023-08-22 11:44] LABS: Bedside Glucose 168 mg/dL (74-106)
--- NOTE | 2023-08-22 12:54 | PCM.DC ---
Discharge Instructions Diet Discharge Diet: 1800 Calorie Control Diet Activity Discharge Activity: Return to Normal Activity Weight Bearing Status: Full weight bearing Follow Up Care Test Results: Test results from this visit will be discussed in further detail at your follow-up appointment, if applicable. Discharge Plan Admission Admit Date/Time: 08/21/23 02:08 Primary Reason for Your Visit: Exacerbation of systolic CHF Attending Provider: Giuseppe Oliver Primary Care Provider: Joseph Ricks Consulting Providers: Rickie Mejia; Francisco Akbar Discharge Orders/Prescriptions Prescriptions: Continued aspirin 81 MG tablet,chewable 81 mg PO DAILY@0800 Patient Comments: [facility] clopidogrel 75 MG tablet 75 mg PO DAILY 30 Days Qty: 30 0RF ezetimibe 10 mg tablet 10 mg PO DAILY Patient Comments: TAKE 1 TABLET BY MOUTH EVERY DAY amlodipine 5 mg tablet 5 mg PO DAILY Patient Comments: TAKE ONE TABLET BY MOUTH DAILY ergocalciferol (vitamin D2) [Vitamin D2] 1,250 mcg (50,000 unit) capsule 50,000 unit PO QWEEK furosemide [Lasix] 80 mg tablet 80 mg PO BID Qty: 60 0RF metolazone 5 mg tablet 5 mg PO DAILY Qty: 30 0RF insulin glargine [Lantus Solostar U-100 Insulin] 100 unit/mL (3 mL) insulin pen 20 unit subcut BID Patient Comments: Takes if Blood sugar > 150 Rx Instructions: Takes if Blood sugar > 150 atorvastatin 40 mg tablet 80 mg PO QHS insulin lispro [Humalog KwikPen Insulin] 100 unit/mL insulin pen subcut calcium acetate(phosphat bind) 667 mg capsule 667 mg PO TID carvedilol 25 mg tablet 25 mg PO BID Qty: 180 3RF Rx Instructions: must administer with a meal/food Referrals / Follow Up: Francisco Akbar MD [Med Staff - Consulting] - See Referral Note (As scheduled) Joseph Ricks MD [Primary Care Provider] - Disposition Disposition (needs filled in before D/C Order can be placed): Home, Self Care
--- NOTE | 2023-08-22 13:02 | DS.PCM_ITS ---
Providers Date of Admission: 08/21/23 Date of Discharge: 08/22/23 Primary Care Physician: Dr. Joseph Ricks MD Consultations 08/21/23 05:22 Consult: Nephrology Routine Consulting Provider: Francisco Akbar Reason for Consult: ESRD on HD EMERGENT Consult: No MD Notified: Yes Date Notified: 08/21/23 Time Notified: 02:12 Method of Notification: Answering Service Reason For Visit: AE CHF AFTER MISSED HD Diagnosis Discharge Diagnosis (1) ESRD (end stage renal disease) on dialysis: Status: Acute Code(s): N18.6 - End stage renal disease; Z99.2 - Dependence on renal dialysis (2) Acute hypoxemic respiratory failure: Status: Acute Code(s): J96.01 - Acute respiratory failure with hypoxia (3) Multiple myeloma: Status: Acute Code(s): C90.00 - Multiple myeloma not having achieved remission Qualifiers: Multiple myeloma remission status: unspecified Qualified Code(s): C 90.00 - Multiple myeloma not having achieved remission Plan 1. Acute on chronic systolic congestive heart failure secondary to noncompliance with dialysis for end-stage renal disease #2 end-stage renal disease requiring chronic dialysis #3 noncompliance with medical regimen #4 morbid obesity #5 acute hypoxia secondary to #1 #6 essential hypertension #7 type 2 diabetes Medications at Discharge Home Medications aspirin 81 mg chewable tablet 81 mg PO DAILY@0800 heart 09/28/14 clopidogrel 75 mg tablet 75 mg PO DAILY Blood Thinner 30 days #30 tabs 06/21/21 ezetimibe 10 mg tablet 10 mg PO DAILY cholesterol 04/07/22 carvedilol 25 mg tablet 25 mg PO BID blood pressure #180 tabs 05/25/22 amlodipine 5 mg tablet 5 mg PO DAILY blood pressure 06/05/22 ergocalciferol (vitamin D2) 1,250 mcg (50,000 unit) capsule (Vitamin D2) 50,000 unit PO QWEEK 01/01/23 furosemide 80 mg tablet (Lasix) 80 mg PO BID #60 tabs 01/03/23 metolazone 5 mg tablet 5 mg PO DAILY #30 tabs 01/03/23 insulin glargine 100 unit/mL (3 mL) subcutaneous pen (Lantus Solostar U-100 Insulin) 20 unit subcut BID Diabetes 02/09/23 atorvastatin 40 mg tablet 80 mg PO QHS cholesterol 08/20/23 calcium acetate(phosphat bind) 667 mg capsule 667 mg PO TID 08/20/23 insulin lispro 100 unit/mL subcutaneous pen (Humalog KwikPen (U-100) Insulin) subcut 08/20/23 Hospital Course Operations None Procedures Dialysis Summary of Care Provided Minutes Spent on Discharge: 32 Hospital Course: This 53-year-old white male was seen in the emergency room at [facility] with complaints of shortness of breath and lower leg edema, patient had skipped his dialysis the day prior because the patient stated he did not feel well. Patient was brought in by squad and EMS noted the patient to be hypoxic with a pulse ox in the 70% range on room air. Workup in the emergency room indicated that the patient had acute on chronic CHF secondary to noncompliance with dialysis, patient was admitted to ICU, he underwent dialysis and was subsequently weaned off of oxygen. Echocardiogram was obtained which showed an EF of 35%. On 08/22/2023, patient was seen and examined: On examination he appeared in no distress, he is morbidly obese. Vital signs as documented. Skin warm and dry and without overt rashes. Neck without JVD, neck was supple, trachea midline, thyroid was normal. Lungs clear bilaterally, normal air movement was noted. Heart exam notable for regular rhythm, normal sounds and absence of murmurs, rubs or gallops. Abdomen unremarkable and without evidence of organomegaly, masses, or abdominal aortic enlargement. Bowel sounds are present, abdomen is not distended. Extremities nonedematous, no cyanosis was noted, no clubbing was noted. Neuro: Cranial nerves II through XII are grossly intact, no focal motor deficits were noted, sensation to light touch and pinprick intact, motor exam 5/5 throughout. Psych: Patient is alert and oriented x3, he does not appear anxious or depressed, he does not appear agitated. On 08/22/2023, patient was discharged home in stable condition. Weight / BMI Weight Weight: 142.5 kg Body Mass Index (BMI) 43.9 ABG / Lab / Microbiology Data 08/21/23 06:35 08/21/23 06:35 Laboratory: Laboratory Results - last 24 hr 08/21/23 16:39: POC Glucose 144 H 08/21/23 21:18: POC Glucose 154 H 08/22/23 11:20: POC Glucose 168 H Radiography Diagnostic Testing: Radiology Impression Echocardiogram 08/21/23 06:09 Interpretation Summary The estimated ejection fraction is 35 %. Mildly dilated left ventricle. Mildly dilated right ventricle. The left atrium is mildly enlarged. Mild focal aortic valve thickening. Trivial pericardial effusion. The study was technically difficult. Ordering Physician: Rickie Mejia Performed By: Vesna Messina RDCS D/C Instructions Discharge Diet: 1800 Calorie Control Diet Weight Bearing Status: Full weight bearing Meaningful Use Info Meaningful Use Meaningful Use Diagnoses (Choose all that apply): CHF CHF MEME/ARB ordered at discharge?: No Reason MEME/ARB not ordered?: Allergy Documented LVEF (%): 35 Ischemic Stroke Statin Dosing Therapy Reference: STATIN DOSE THERAPY REFERENCE: * Patients > 75 years receive moderate or high dose statin therapy. * Patients 75 years or YOUNGER should receive HIGH intensity statin dose unless contraindicated. You will be required to document reason for non-treatment if statin daily dose does not meet guidelines. HIGH DOSE STATIN THERAPY DAILY Atorvastatin > than or = to 40 mg Rosuvastatin > than or = to 20 mg Amlodipine + Atorvastatin > than or = to 2.5/40 mg Ezetimibe + Simvastatin 10/80 mg Simvastatin 80mg Discharge Plan Admission Admit Date/Time: 08/21/23 02:08 Primary Reason for Your Visit: Exacerbation of systolic CHF Attending Provider: Giuseppe Oliver Primary Care Provider: Joseph Ricks Consulting Providers: Rickie Mejia; Francisco Akbar Discharge Orders/Prescriptions Prescriptions: Continued aspirin 81 MG tablet,chewable 81 mg PO DAILY@0800 Patient Comments: [facility] clopidogrel 75 MG tablet 75 mg PO DAILY 30 Days Qty: 30 0RF ezetimibe 10 mg tablet 10 mg PO DAILY Patient Comments: TAKE 1 TABLET BY MOUTH EVERY DAY amlodipine 5 mg tablet 5 mg PO DAILY Patient Comments: TAKE ONE TABLET BY MOUTH DAILY ergocalciferol (vitamin D2) [Vitamin D2] 1,250 mcg (50,000 unit) capsule 50,000 unit PO QWEEK furosemide [Lasix] 80 mg tablet 80 mg PO BID Qty: 60 0RF metolazone 5 mg tablet 5 mg PO DAILY Qty: 30 0RF insulin glargine [Lantus Solostar U-100 Insulin] 100 unit/mL (3 mL) insulin pen 20 unit subcut BID Patient Comments: Takes if Blood sugar > 150 Rx Instructions: Takes if Blood sugar > 150 atorvastatin 40 mg tablet 80 mg PO QHS insulin lispro [Humalog KwikPen Insulin] 100 unit/mL insulin pen subcut calcium acetate(phosphat bind) 667 mg capsule 667 mg PO TID carvedilol 25 mg tablet 25 mg PO BID Qty: 180 3RF Rx Instructions: must administer with a meal/food Referrals / Follow Up: Francisco Akbar MD [Med Staff - Consulting] - See Referral Note (As scheduled) Joseph Ricks MD [Primary Care Provider] - Disposition Disposition (needs filled in before D/C Order can be placed): Home, Self Care Charges/Coding Visit Charges Inpatient E&M: 23396 Disch Hosp >30min
--- NOTE | 2023-08-22 13:50 | PN.RENAL_ITS ---
Subjective Subjective Seen on dialysis today. Breathing is better. Apparently had desaturations while sleeping overnight. Was advised to get tested for sleep apnea. He will check with his primary care physician. Objective Data Objective Data Vital Signs: Vital Signs Temp Pulse Resp BP Pulse Ox O2 Del Method O2 Flow Rate 97.9 F 66 17 123/78 H 93 Room Air 1 08/22/23 09:00 08/22/23 10:54 08/22/23 10:54 08/22/23 10:54 08/22/23 10:54 08/22/23 10:54 08/22/23 10:00 Oxygen Flow Rate (L/min) 1 Oxygen Delivery Method Room Air Weight: 142.5 kg Body Mass Index (BMI) 43.9 Intake & Output: Intake and Output for Last 24 Hours 08/20/23 08/21/23 08/22/23 23:59 23:59 23:59 Intake Total 0 / 0 Output Total 8790 / 8790 4450 / 4450 Balance -8790 / -8790 -4450 / -4450 Lab / Micro Data 08/21/23 06:35 08/21/23 06:35 Labs: Laboratory Results - last 24 hr 08/21/23 16:39: POC Glucose 144 H 08/21/23 21:18: POC Glucose 154 H 08/22/23 11:20: POC Glucose 168 H Radiography Diagnostic Testing: Radiology Impression Echocardiogram 08/21/23 06:09 Interpretation Summary The estimated ejection fraction is 35 %. Mildly dilated left ventricle. Mildly dilated right ventricle. The left atrium is mildly enlarged. Mild focal aortic valve thickening. Trivial pericardial effusion. The study was technically difficult. Ordering Physician: Rickie Mejia Performed By: Vesna Messina RDCS Rhythm Strip Rhythm Strip: Sinus Rhythm Rate: 75 Ectopy: PVC(s) Physical Exam Narrative Alert and orient x 3, no apparent distress S1, S2, RRR Diminished breath sounds with scattered rales Abdomen soft, rounded, nontender Positive edema bilateral lower legs Tunneled dialysis catheter right chest dressing clean, dry and intact Assessment & Plan Assessment/Plan (1) ESRD (end stage renal disease) on dialysis: (2) Acute hypoxemic respiratory failure: (3) Multiple myeloma: QUALIFIERS: Multiple myeloma remission status: unspecified Q ualified Code(s): C90.00 - Multiple myeloma not having achieved remission PLAN: Plan ESRD. Dialysis today. Seen on dialysis. So far tolerating fluid removal well. Volume overload. Cramping issues with dialysis. Has not been getting adequate volume removal. He is now agreeable. We have tried various combinations including isolated UF. Still on chemotherapy. Denies any GI symptoms.
== END 2023-08-22 14:09 | disposition home or self-care (01) | DRG 640 ==
LOC: ED 08-21 02:03 → ICU 08-21 02:16
PROVIDERS: Admitting Provider Internal Medicine; Emergency Provider Emergency Medicine; PCP Family Medicine; Visit Provider Internal Medicine
DX: E87.79 Other fluid overload (principal); N18.6 End stage renal disease; I13.2 Hypertensive heart and chronic kidney disease with heart failure and with stage 5 chronic kidney disease, or end stage renal disease; Z68.42 Body mass index [BMI] 45.0-49.9, adult; C90.01 Multiple myeloma in remission; I50.42 Chronic combined systolic (congestive) and diastolic (congestive) heart failure; E11.22 Type 2 diabetes mellitus with diabetic chronic kidney disease; E11.42 Type 2 diabetes mellitus with diabetic polyneuropathy; Z79.4 Long term (current) use of insulin; E11.65 Type 2 diabetes mellitus with hyperglycemia; E66.01 Morbid (severe) obesity due to excess calories; I25.5 Ischemic cardiomyopathy; Z99.2 Dependence on renal dialysis; E78.5 Hyperlipidemia, unspecified; I25.10 Atherosclerotic heart disease of native coronary artery without angina pectoris; M19.90 Unspecified osteoarthritis, unspecified site; Z79.82 Long term (current) use of aspirin; Z95.5 Presence of coronary angioplasty implant and graft; Z79.02 Long term (current) use of antithrombotics/antiplatelets; Z86.16 Personal history of COVID-19; Z91.199 Patient's noncompliance with other medical treatment and regimen due to unspecified reason; Z91.158 Patient's noncompliance with renal dialysis for other reason
CPT/HCPCS: 71045; 80048; 80053; 82962; 83735; 83880; 84100; 84443; 84484; 85025; 90937; 93005; 93306; 94640; 94668; 97161; 97802; 99285; J7030; Q9957; A4216; C8929; G0257; J1940

== ENCOUNTER 2023-12-04 07:58 | Outpatient (CLI) | payer MEDICARE, SELFPAY ==
[2023-04-20 14:48] VITALS: BMI 37.9
--- NOTE | 2023-12-04 08:00 | VDUE_ITS ---
Reason For Study: Fistula planning Right Lower Arm Left Arm Distal Radial artery diameter 0.21 x 0.21 Left Brachial artery diameter 0.39 x 0.38 mm. mm. Distal Radial artery waveform is triphasic . Left Brachial artery waveform is triphasic . Right Arm Cephalic Vein at distal forearm measures Right Brachial artery diameter 0.41 x 0.41 0.29 x 0.30 mm. mm. Cephalic Vein at mid forearm measures 0.20 x Right Brachial artery waveform is 0.19 mm. triphasic . Cephalic Vein proximal forearm measures 0.19 Cephalic Vein at distal forearm measures x 0.23 mm. 0.32 x 0.33 mm. Cephalic Vein distal upper arm measures 0.57 Cephalic Vein at mid forearm measures 0.27 x x 0.56 mm. 0.26 mm. Cephalic Vein at mid upper arm measures 0.57 Cephalic Vein proximal forearm measures 0.25 x 0.59 mm. x 0.27 mm. Cephalic Vein at proximal upper arm measures Cephalic Vein distal upper arm measures 0.44 0.46 x 0.49 mm. x 0.47 mm. Cephalic branch, mid forearm, 0.34 x 0.33 Cephalic Vein at mid upper arm measures 0.40 cm. x 0.41 mm. Cephalic branch, prox forearm, 0.29 x 0.28 Cephalic Vein at proximal upper arm measures cm. 0.34 x 0.37 mm. Proximal Basilic vein measures 0.52 x 0.57 Cephalic branch, mid forearm, 0.23 x 0.24 mm. cm. Mid Basilic vein measures 0.47 x 0.49 mm. Cephalic branch, prox forearm, 0.40 x 0.42 Distal Basilic vein measures 0.55 x 0.59 mm. cm. Left Lower Arm Proximal Basilic vein measures 0.67 x 0.65 Distal Radial artery diameter 0.22 x 0.23 mm. mm. Mid Basilic vein measures 0.54 x 0.53 mm. Distal Radial artery waveform is triphasic . Distal Basilic vein measures 0.53 x 0.56 mm. VL/Dialysis Vein Map PRE-OP BILAT Interpretation Summary Bilateral upper extremity arteries patent with normal waveforms, measurements a kenan. Bilateral upper extremity veins patent with measurements above. Ordering Physician: Luis Carlos Ozuna Referring Physician: Joseph Ricks Performed By: Taylor Nur RVT ???
== END 2023-12-04 23:59 | disposition home or self-care (01) ==
LOC: CVS 07:59
PROVIDERS: PCP Family Medicine; Referring Provider Surgery Trauma Surgery; Visit Provider Surgery Trauma Surgery
DX: Z01.818 Encounter for other preprocedural examination (principal); N18.6 End stage renal disease; Z13.6 Encounter for screening for cardiovascular disorders; Z99.2 Dependence on renal dialysis
CPT/HCPCS: 93985